=== PATIENT | male | born 1935 | race Caucasian/White ===

== ENCOUNTER 2018-05-27 14:44 | Inpatient (IN) | payer OTHER ==
[2018-05-27] MEDS ORDERED: ONDANSETRON 4 MG/2 ML VIAL IV PRN (15:20)
[2018-05-27 15:23] VITALS: BMI 25.8
[2018-05-27 16:10] LABS: Absolute Lymphocytes (CBC) 0.7 K/uL (0.7-4.9); Absolute Monocytes 0.5 K/uL (0.1-1.3); Absolute Neutrophil 3.3 K/uL (1.8-8.0); Basophils % 0.6 % (0-1.3); Eosinophils % 1.1 % (0-4.4); Hematocrit 38.6 % (39.6-49.0); Lymphocytes % 16.2 % (15.3-44.8); MPV 8.4 fL (7.6-11.3); Monocytes % 11.8 % (3.3-12.3); RBC Red Blood Cell Count 3.86 M/uL (4.33-5.43)
[2018-05-27 16:24] LABS: Potassium 4.3 mmol/L (3.5-5.1)
[2018-05-27] MEDS ORDERED: Pharmacy Consult 1 EA XX PRN (16:25)
[2018-05-27] MEDS ORDERED: VANCOMYCIN 1.5 GM in NA CHLORIDE 0.9% 500 ML IVPB ONE (17:00)
[2018-05-27] MEDS ORDERED: PNEUMOCOCCAL VACCINE 0.5 ML IMVAC ONE (20:00)
[2018-05-27 21:17] LABS: Urine Appearance CLEAR; Urine Bilirubin NEGATIVE (NEG); Urine Blood NEGATIVE (NEG); Urine Color YELLOW; Urine Glucose NEGATIVE (NEG); Urine Protein NEGATIVE (NEG); Urine Urobilinogen 0.2 mg/dL (0.2-1.0)
[2018-05-27 21:32] LABS: Urine Microscopic Reflex NO UMIC
[2018-05-28] MEDS: CLOPIDOGREL 75 MG TABLET PO SCH (09:02)
[2018-05-28] MEDS: METOPROLOL TAR 50 MG TAB PO SCH (09:02)
[2018-05-28] MEDS: MUPIROCIN 2% OINT 22GM TUBE TOP SCH (09:03)
[2018-05-28] MEDS: TRAMADOL HCL 50 MG TAB PO PRN ×3 (09:09→17:28)
--- NOTE | 2018-05-28 15:41 | RAD REPORT ---
EXAM DESCRIPTION: RAD - Foot Right 3 View - 05/28/2018 3:29 pm CLINICAL HISTORY: cellulitis of leg Pain and swelling COMPARISON: No comparisons FINDINGS: Soft tissue swelling is seen about the foot. Degenerative changes are noted involving the first and second MTP joints. Large plantar calcaneal spur noted. No finding to indicate osteomyelitis . If osteomyelitis remains a clinical concern, MR imaging followup would be recommended.
[2018-05-28] MEDS: VANCOMYCIN 1.5 GM in NA CHLORIDE 0.9% 500 ML IVPB SCH (17:28)
[2018-05-28] MEDS: MORPHINE 2 MG/ML SYR IV PRN (21:38)
--- NOTE | 2018-05-28 23:09 | CON ---
Date of Consultation: 05/28/2018 Reason For Service: Right foot cellulitis and abscess. History Of Present Illness: This is the case of an 82-year-old patient, admitted to this hospital in the last 24 hours when he presented to the primary doctor with cellulitis of the right foot region. Today, he was found to have an area of fluctuance in the foot with possible abscess and a surgical c onsult was obtained for possibility of incision and drainage and debridement. He does not remember a ny trauma to that region. He has a history of peripheral vascular disease. In fact last year about the same time, patient was admitted to the hospital with chest pain and history of TN. He does not r emember any trauma; any dysuria, hematuria, hematochezia, or melena. At that moment 1 year ago, melvin ent had a procedure done by Dr. Rangel, which involved a left heart catheterization, angiography, and stenting of the mid left anterior descending artery with 0% residual stenosis. Past Medical History: Cardiac disease, history of TN, peripheral vascular disease. Past Surgical History: Include knee surgery and heart stent placement, elbow surgery. Family History: Includes heart disease and colon cancer. Social History: He does not smoke. He drinks alcohol occasionally. Medications: Include Plavix, aspirin. Review of Systems: Ten points otherwise unremarkable. Physical Examination: General: Patient is awake and alert. HEENT: Pupils are equal and reactive, anicteric. Neck: Supple. Chest: Clear. Abdomen: Soft and depressible. Nontender. Nondistended. Bowel sounds positive. Extremities: Dorsalis pedis pulses bilaterally still present, although diminished. On the right kiet t region, patient has area of cellulitis in midfoot up to distal complete foot. There is an area of fluctuance between the fourth and fifth toe, may have an abscess in that area and area deep inside th e foot, but I believe the origin is between there and also there are some areas between 3rd and 4th. There is a necrotic wound present in that region. Imaging: The right foot MRI does not show at least any obvious evidence of osteomyelitis. Laboratory Data: Blood work shows WBC count of 4.6 and hemoglobin of 12. Potassium is 4.3. Assessment: This 82-year-old patient with abscess of the right foot, needs to be drained. Patient w ill require incision and drainage and debridement with benefits, alternatives, and risks including, b ut not limited to infection, bleeding, damage to adjacent structures, anesthesia complication, nonhea ling wound, TN, and even . He also understands this may not relieve any symptoms. He might nee d more than one surgical intervention. He does not want to feel pain. The area is very tender, so t he options of anesthesia under some sedation or MAC, general anesthetic cannot rule out si nce he has history of TN. I am going trying to see if the project account manager cannot at least evaluate this patient to let us know our limitations. This surgery needs to be done to relieve this infection and patient understands and may require wound care. JAMIE/JAYLEEN Voice ID: [id number] Report ID: [id number]
[2018-05-28] MEDS: NA CHLORIDE 0.9% 1,000 ML IV SCH (23:36)
[2018-05-29] MEDS: MUPIROCIN 2% OINT 22GM TUBE TOP SCH (09:00)
[2018-05-29] MEDS: METOPROLOL TAR 50 MG TAB PO SCH ×2 (09:00→09:58)
[2018-05-29] MEDS ORDERED: PROPOFOL 200 MG/20 ML VIAL IV ONE (10:04)
[2018-05-29] MEDS ORDERED: FENTANYL CITR 100 MCG/2 ML ONE (10:05)
[2018-05-29] MEDS ORDERED: LIDOCAINE 2% MPF 5 ML VIAL ONE (10:06)
[2018-05-29] MEDS ORDERED: ONDANSETRON 4 MG/2 ML VIAL ONE (10:08)
[2018-05-29] MEDS ORDERED: BUPIVACAINE 0.5% PF 10 ML VIAL ONE (10:11)
--- NOTE | 2018-05-29 10:55 | P.BOP ---
Preoperative diagnosis: right foot cellulitis and abscess Postoperative diagnosis: same Primary procedure: I & D with subcutaneous debridement of R foot complex abscess Estimated blood loss: <10cc Specimen: devitalized tissue Findings: complx abscess tracking from plantar to dorsal foot area Anesthesia: General Complications: None Transferred to: Recovery Room Condition: Good
[2018-05-29] MEDS ORDERED: NA CHLORIDE 0.9% 1,000 ML ONE (11:29)
--- NOTE | 2018-05-29 13:46 | CON ---
History Of Present Illness: Mr. Gaytan came to the hospital with his right foot swollen. He has a wound there that seemed to be is between the fourth and fifth digit on the right foot. I am asked to see him before surgery to make sure he is a good cardiac candidate for going through gene ral anesthesia and debridement, perhaps amputation of the toe. Mr. Gaytan definitely has coronary h eart disease in April 2017, so little more than a year ago. He had a stent placed. He had 2 previou s stents, but he had another stent placed in the LAD. Since then, he has been doing well. No chest pain. No EKG changes. Dyspnea with severe exertion. Normal activities of daily life. No symptoms. He does not recall injuring a wound in the foot. His outpatient medications are: Famotidine, clop idogrel, tramadol, clindamycin, metoprolol. He does not report a drug intolerance to statins, but fo r some reason he stopped taking the statin that he had been on before or it simply not recorded, he s hould be on a high dose statin. Physical Examination: General: He is alert, oriented, pleasant, not in distress. Lungs: Clear. Cardiac: Normal. Has normal pulses in both feet. Normal femoral pulses. No evidence of aortic ane urysm. Extremities: The right foot has a large area of swelling, redness, warmth, and tenderness. Looks lik e there is an infection with a crack in the skin between the fourth and fifth digits. Dr. Morrow has recommended debridement. I do not think he has any significant vascular disease. H is heart is stable. He is cleared for going through general anesthesia and surgery to debride wound on his right foot. BENJI/JAYLEEN Voice ID: [id number] Report ID: [id number]
[2018-05-29] MEDS: VANCOMYCIN 1.5 GM in NA CHLORIDE 0.9% 500 ML IVPB SCH (16:29)
[2018-05-29] MEDS: NA CHLORIDE 0.9% 1,000 ML IV SCH (16:31)
[2018-05-29] MEDS: MORPHINE 2 MG/ML SYR IV PRN (22:09)
--- NOTE | 2018-05-29 23:12 | OP ---
Date of Procedure: 05/29/2018 Surgeon: Blair Morrow MD Preoperative Diagnosis: Right foot cellulitis and abscess. Postoperative Diagnoses: Right foot cellulitis and abscess. Procedures: Incision and drainage with subcutaneous debridement of the right foot complex abscess th mac Morrow. Findings: Complex abscess. There is a track coming from plantar to dorsal area of the foot. Two co unter incisions were made. Packing through the foot itself through and through. Anesthesia: General plus local. Indications: This is the case of an 82-year-old patient who comes with cellulitis of the right foot. We noticed an open wound in between the toes 5th and 4th with necrotic tissue present. point for this abscess and cellulitis in the foot goes entire distal part of the foot area of about 10 cm x 6 cm. The patient started on antibiotics, but also debridement needs to be done an d drainage of an abscess. The benefits, alternatives, and risks were fully explained, which include, but are not limited to infection, bleeding, damage to adjacent structures, anesthesia complication, nonhealing wound, DE, and even . He also understood this may not relieve any symptoms. He migh t need more than one surgical intervention. He will require wound care and compliance with the antib iotics. The patient signed a consent. Description Of Procedure: The patient was brought to the operating room and placed in supine positio n. Anesthesia was done without complication. The right foot was prepped and draped in a sterile fas hion. A time-out was called. We noticed the opening between the toes and we put a hemostat in that area. We noticed that extending to the dorsal aspect and plantar aspect of the foot. So, we proceed ed to remove the necrotic tissue. Then, we noticed this track going to the dorsal end of the foot wi th this complex abscess with multiple loculations that were explored, opened. The packing of a Nu Ga uze then placed through and through after the necrotic tissue was removed and sent to the pathologist . The area was irrigated and hemostasis was obtained. The patient tolerated the procedure well. Th e patient was sent to recovery in stable condition. JAMIE/JAYLEEN Voice ID: [id number] Report ID: [id number]
[2018-05-30] MEDS: TRAMADOL HCL 50 MG TAB PO PRN ×3 (04:43→17:35)
[2018-05-30] MEDS: METOPROLOL TAR 50 MG TAB PO SCH (09:26)
[2018-05-30] MEDS: CLOPIDOGREL 75 MG TABLET PO SCH (09:27)
[2018-05-30] MEDS: MORPHINE 2 MG/ML SYR IV PRN (09:27)
[2018-05-30] MEDS: VANCOMYCIN 1.5 GM in NA CHLORIDE 0.9% 500 ML IVPB SCH (12:17)
--- NOTE | 2018-05-30 17:25 | PN ---
Date of Progress Note: 05/28/2018 The patient's cellulitis has continued to progress despite the use of antibiotics; however, he has no t had a significant dose right antibiotic; however, the pain has increased somewhat as wel l with possibility of him requiring a significant debridement under sedation be considered and consul tation will be obtained with the surgeon. /JAYLEEN Voice ID: [id number] Report ID: [id number]
[2018-05-30] MEDS: NA CHLORIDE 0.9% 1,000 ML IV SCH (18:32)
--- NOTE | 2018-05-30 20:10 | PN ---
Date of Progress Note: 05/30/2018 The patient is doing quite well postoperatively. His pain is not that severe. There is some improve ment in the area of cellulitis. We will continue the IV antibiotics awaiting final culture report. Depending on whether it is sensitive to, and determine whether disposition will be made on oral and/o r IV antibiotics. HR/MODL Voice ID: [id number] Report ID: [id number]
--- NOTE | 2018-05-31 03:48 | PN ---
Date of Progress Note: 05/27/2018 Diagnosis: Cellulitis and abscess of the right foot. Subjective: The patient is status post I and D and debridement. The patient is doing well. No comp laint. No fever. Objective: General: The patient is awake and alert. No distress. He is feeling better. Abdomen: Soft and depressible. Extremities: Intact surgical sites. Toes 1 to 5 with good capillary refill. Diagnostic Studies: Culture came back as unable to identify the organism, since there was no growth from that area. Assessment/plan: 1.Continue with dressing changes. 2.Antibiotics. If we see improvement in his redness, then we are going to have to treat it with ant ibiotics, pick one and then follow up [facility] as an outpatient. 3.He might need home health agencies. I am going to check with the floor with the patient to see, i f he has a family member or he wants to do it himself. JAMIE/JAYLEEN Voice ID: [id number] Report ID: [id number]
[2018-05-31] MEDS: TRAMADOL HCL 50 MG TAB PO PRN ×2 (04:35→11:20)
[2018-05-31] MEDS: VANCOMYCIN 1.5 GM in NA CHLORIDE 0.9% 500 ML IVPB SCH ×2 (05:02→23:43)
[2018-05-31] MEDS: MORPHINE 2 MG/ML SYR IV PRN ×2 (09:02→15:29)
[2018-05-31] MEDS: METOPROLOL TAR 50 MG TAB PO SCH (09:03)
[2018-05-31] MEDS: CLOPIDOGREL 75 MG TABLET PO SCH (09:03)
[2018-05-31] MEDS: NA CHLORIDE 0.9% 1,000 ML IV SCH (12:40)
[2018-05-31] MEDS ORDERED: TRAMADOL 37.5mg/APAP 325mg PER TAB PO PRN (14:42)
[2018-05-31] MEDS: DOCUSATE NA 100 MG CAP PO SCH ×2 (15:28→20:22)
[2018-05-31 15:49] LABS: Absolute Lymphocytes (CBC) 0.5 K/uL (0.7-4.9); Absolute Monocytes 0.9 K/uL (0.1-1.3); Absolute Neutrophil 5.5 K/uL (1.8-8.0); Basophils % 0.2 % (0-1.3); Eosinophils % 0.1 % (0-4.4); Hematocrit 38.3 % (39.6-49.0); Lymphocytes % 7.3 % (15.3-44.8); MPV 8.4 fL (7.6-11.3); RBC Red Blood Cell Count 3.86 M/uL (4.33-5.43)
[2018-05-31] MEDS ORDERED: ENOXAPARIN 30 MG/0.3 ML SQ ONE (16:00)
[2018-05-31] MEDS: PIPER/TAZO/NS 3.375gm 3.375 GM/100 ML BAG IVPB SCH (17:42)
[2018-05-31] MEDS: ATORVASTATIN 20 MG TAB PO SCH (20:22)
--- NOTE | 2018-05-31 20:54 | PN ---
Subjective: The patient continued to have evidence of cellulitis, although distally has improved, pr oximally still some involvement, also some edema of the leg. The discussion with Infectious Disease with Zosyn had been added to the regimen. Also, the patient is complaining of increasing stiffness o f his knees, long history of arthritic problems in that area and we will start some physical therapy. He is rather inactive and therefore, Lovenox prophylactically was added to the regimen as well. Chief Complaint: Painful foot. History Of Present Illness: The patient was seen in the [facility] approximately 2 weeks prior to his presentation. He had a small ulcer fifth and fourth digits, which was debrided, caute rized, seen back in the [facility] in a week. The same procedure was followed, perhaps the ulcer w as somewhat smaller, but basically unchanged. As far as the surrounding tissue was concerned, there was no evidence of any problems. However, the next day, he presented to the office with mild celluli tis area around it, started on antibiotics orally. However, this progressed, so that when he was see n in the day of admission, there was marked cellulitis with progression on the foot and obviously, re quired IV antibiotics and therefore, admitted. Past History: The patient has a long history of coronary artery disease, arthritic changes and he simpson s had a Doppler at the time of the workup and he presented to the [facility], which was negative fo r DVTs, I suspect he has some small-vessel disease to certain extent. Social History: Nonsmoker, nondrinker. The patient does have some caffeine. Family History: Noncontributory. Physical Examination: General: The patient is an elderly male. Vital Signs: Stable vital signs. Head and Neck: Normocephalic. Pupils equal and reactive to light and accommodation. Fundi negative . Trachea midline. Thyroid not palpable. ENT negative. Chest: Clear to P and A. Cardiovascular: PMI midclavicular line. Heart sounds normal. Peripheral pulses are present and equ al bilaterally. Abdomen: No organomegaly. Bowel sounds normal. Extremities: Decreased motion of the knees, chronic area of cellulitis in the anterior portion of th e foot, distally to the ulceration in-between the toes and area of erythema and cellulitis in this ar ea as well. Impression: 1.Cellulitis of the foot secondary to ulceration of the intertrigo area. 2.Coronary artery disease by history. 3.Arthritis of the knees. Plan: The patient will be admitted, placed on IV antibiotics, require I and D and debridement, consu ltation with surgeon has been done and should be scheduled. HR/MODL Voice ID: [id number] Report ID: [id number]
--- NOTE | 2018-05-31 21:09 | PN ---
This is a new finding that we have in this patient with cellulitis of the leg area and near the knee. History Of Present Illness: This is a case of an 82-year-old patient, who had the foot cellulitis an d abscess. on antibiotics. We noticed some improvement near the I and D, but progression of his infection of the rest of the extremity and . I was asked to re-evaluate the patien t once again from the surgical standpoint. Review of Systems: Ten points otherwise unremarkable. Physical Examination: Vital signs: He is afebrile. General: The patient is awake and alert. HEENT: Pupils are equal and reactive, anicteric. Neck: Supple. Chest: Clear. Abdomen: Soft and depressible. Extremities: The patient has previous incision over the foot region distally. That area is doing we ll with improvement of the surrounding areas of that I and D, but the proximal foot that is not addre ss by this I and D. He still have some areas of cellulitis present and also distal leg. The knee ar ea starting to feel little bit swelling, although we did not see any fluctuance or crepitus in those areas. Peripheral pulses still present. Laboratory Data: Blood work shows WBC count of 4.6, but that was from several days ago. Culture did not help us since it could not grow the organism. Assessment: An 82-year-old patient with cellulitis of the proximal foot different from the previous I and D and also leg region. This patient may need better coverage for his condition. I discussed t he case today with Dr. Neves, who currently accepted consult on the case from a surgical standpoint and he suggest putting the patient also in a gram-negative coverage. We agreed that is important in this case. Dressing changes will continue as before with the packing. The leg elevation. We are go ing to see the patient over the weekend to see how he improve and we have to do another contour incis ion if he develop abscess in the proximal areas, we will proceed accordingly but not the case today. JAMIE/JAYLEEN Voice ID: [id number] Report ID: [id number]
[2018-06-01] MEDS: PIPER/TAZO/NS 3.375gm 3.375 GM/100 ML BAG IVPB SCH ×3 (03:32→16:38)
[2018-06-01 06:37] LABS: BUN Blood Urea Nitrogen 10 mg/dL (7-18); Bicarbonate 24 mmol/L (21-32); Glucose Level 123 mg/dL (74-106); Potassium 3.6 mmol/L (3.5-5.1); Sodium Level 136 mmol/L (136-145)
[2018-06-01] MEDS: NA CHLORIDE 0.9% 1,000 ML IV SCH (08:00)
[2018-06-01] MEDS: METOPROLOL TAR 50 MG TAB PO SCH (08:36)
[2018-06-01] MEDS: DOCUSATE NA 100 MG CAP PO SCH ×3 (08:36→21:31)
[2018-06-01] MEDS: CLOPIDOGREL 75 MG TABLET PO SCH (08:37)
[2018-06-01] MEDS ORDERED: BISACODYL 10 MG RECTAL SUPP PR ONE (13:36)
--- NOTE | 2018-06-01 17:13 | PN ---
Diagnoses: Right leg cellulitis, right knee cellulitis, right foot cellulitis abscess. Subjective: The patient yesterday found to have cellulitis of the leg and knee. We previously did a n I and D for his foot abscess. He was receiving antibiotics for that when we noticed there was some progression of the cellulitis, although the area of the I and D solved the issue in that area. I co ntacted Dr. Neves who kindly accepted the consult to manage his antibiotics for proper coverage sinc e cultures did not allow us to pinpoint this bacteria causing the issue. Today, he feels better. Th e swelling is starting to come down a little bit, still has some areas of cellulitis present. The valerio rgical areas, previous area in the foot is intact too. Review of Systems: Ten points, otherwise unremarkable. Objective: General: The patient is awake and alert. No fever. Chest: Clear. Abdomen: Soft and depressible. Extremities: No calf tenderness. The patient has some redness over the leg area in the knee region. Full range of motion of the knee still there. The area of the foot has improved after the I and D was done for abscess of that area. Although the leg and knee are not addressed by that surgical inte rvention, at this moment, I feel at least in the area and the leg should still be addressed by the ne w antibiotics, and already showing some improvement. Plan: Continue the antibiotics. Continue pharmacy consult for his vancomycin. We will continue wit h wet-to-dry dressing over the foot region, on leg elevation. JAMIE/JAYLEEN Voice ID: [id number] Report ID: [id number]
--- NOTE | 2018-06-01 17:22 | PN ---
The patient states he feels considerably better today. The pain has decreased. Clinically, the swel ling has gone down somewhat as well. He has been more mobile. Problem now is constipation. This wi ll be addressed with symptomatic treatment. Continue on his present regimen. Changed to saline lock , increase his activity with a projection in next day or so to be discharged. HR/MODL Voice ID: [id number] Report ID: [id number]
[2018-06-01] MEDS: VANCOMYCIN 1.5 GM in NA CHLORIDE 0.9% 500 ML IVPB SCH (18:02)
[2018-06-01 19:54] LABS: Urine Appearance CLEAR; Urine Bilirubin NEGATIVE (NEG); Urine Blood NEGATIVE (NEG); Urine Color YELLOW; Urine Glucose NEGATIVE (NEG); Urine Protein NEGATIVE (NEG)
[2018-06-01 20:02] LABS: Urine Microscopic Reflex NO UMIC
[2018-06-01] MEDS: ATORVASTATIN 20 MG TAB PO SCH (21:31)
[2018-06-01] MEDS: BISACODYL 10 MG RECTAL SUPP PR PRN (21:41)
[2018-06-01] MEDS: MORPHINE 2 MG/ML SYR IV PRN (23:04)
[2018-06-02] MEDS: PIPER/TAZO/NS 3.375gm 3.375 GM/100 ML BAG IVPB SCH ×3 (00:45→17:02)
[2018-06-02] MEDS: TRAMADOL HCL 50 MG TAB PO PRN (00:52)
[2018-06-02] MEDS: METOPROLOL TAR 50 MG TAB PO SCH (09:37)
[2018-06-02] MEDS: DOCUSATE NA 100 MG CAP PO SCH ×3 (09:37→20:29)
[2018-06-02] MEDS: CLOPIDOGREL 75 MG TABLET PO SCH (09:38)
[2018-06-02] MEDS: VANCOMYCIN 1.5 GM in NA CHLORIDE 0.9% 500 ML IVPB SCH (12:07)
[2018-06-02] MEDS: MORPHINE 2 MG/ML SYR IV PRN ×2 (17:03→21:33)
[2018-06-02] MEDS: ATORVASTATIN 20 MG TAB PO SCH (20:29)
--- NOTE | 2018-06-02 21:26 | PN ---
right foot cellulitis with an abscess that was drained, but he also developed a right leg cellulitis and also swelling of the right knee region and this patient has to be reconsulted for the reasons. We have to change the antibiotics. We also get Infectious Disease consulted. The patient is improving after we added Zosyn to the regimen. Right now, the patient feels better and no fever w ith less swelling. Review of Systems: Ten points, otherwise unremarkable. Objective: General: The patient is awake and alert. HEENT: Pupils are equal and reactive, anicteric. Neck: Supple. Chest: Clear. Abdomen: Soft and depressible. Nontender. Extremities: Right knee and right leg with no calf tenderness. Swelling is diminished. Erythema ov er the leg and also the dorsum of the foot is diminished. The surgical area of the foot region also intact. Laboratory Data: Blood work shows once again, WBC count of 6.90 the plan. The patient simpson s consulted with the Infectious Disease to determine the proper route and length of his antibiotics. We are going to continue packing of the area of the foot, leg elevation. JAMIE/JAYLEEN Voice ID: [id number] Report ID: [id number]
[2018-06-03] MEDS: PIPER/TAZO/NS 3.375gm 3.375 GM/100 ML BAG IVPB SCH ×3 (00:28→16:36)
[2018-06-03] MEDS: MORPHINE 2 MG/ML SYR IV PRN ×3 (03:54→21:58)
[2018-06-03] MEDS: VANCOMYCIN 1.5 GM in NA CHLORIDE 0.9% 500 ML IVPB SCH (05:13)
[2018-06-03] MEDS: METOPROLOL TAR 50 MG TAB PO SCH (08:19)
[2018-06-03] MEDS: DOCUSATE NA 100 MG CAP PO SCH ×3 (08:19→20:26)
[2018-06-03] MEDS: CLOPIDOGREL 75 MG TABLET PO SCH (08:19)
--- NOTE | 2018-06-03 09:24 | PN ---
The patient seems to be doing quite well, as far as the foot pain is concerned, an evaluation of the wound shows significant ecchymosis with good control of the cellulitis. However, his main complaint and why he has been taking the analgesics is his lower back. The patient has a long history of required at this time. If in fact, he continues to improve as far as the cellulitis is concern ed, possibly can be discharged tomorrow on oral medication and then receive a cortisone shot in the l umbosacral area. HR/MODL Voice ID: [id number] Report ID: [id number]
[2018-06-03] MEDS ORDERED: cloNIDine HCl 0.1 MG TAB PO PRN (18:53)
[2018-06-03] MEDS: ATORVASTATIN 20 MG TAB PO SCH (20:26)
--- NOTE | 2018-06-03 20:27 | PN ---
Date of Progress Note: 06/03/2018 Diagnosis: This is a followup for his right leg and knee cellulitis. The previous problem he had ri ght foot cellulitis and abscess is improving too. The previous I and D also looks intact. His leg a nd knee also improving now. Denies any fever. Review of Systems: Ten points, otherwise unremarkable. Objective: General: The patient is awake and alert. No distress. Abdomen: Soft and depressible. Extremities: Swelling of the leg is diminished. Erythema also diminished, same thing with the knee. The right foot incision looks intact. Right foot cellulitis also is diminished. Laboratory Data: Microbiology could not grow any bacteria, though it is obvious it was infected. Plan: We are waiting for the infectious disease doctor who will let us know not only which kind of a ntibiotics, but also which length of antibiotic is needed to improve his condition. From the surgica l standpoint, we are going to continue with the Nu Gauze packing over the area and gauze on top. Whe n he gets discharged, we would like to see him at [facility]. JAMIE/JAYLEEN Voice ID: [id number] Report ID: [id number]
[2018-06-04] MEDS: PIPER/TAZO/NS 3.375gm 3.375 GM/100 ML BAG IVPB SCH ×3 (00:05→17:26)
[2018-06-04] MEDS: VANCOMYCIN 1.5 GM in NA CHLORIDE 0.9% 500 ML IVPB SCH ×2 (00:59→18:18)
[2018-06-04] MEDS: CLOPIDOGREL 75 MG TABLET PO SCH (09:13)
[2018-06-04] MEDS: DOCUSATE NA 100 MG CAP PO SCH ×3 (09:13→20:55)
[2018-06-04] MEDS: METOPROLOL TAR 50 MG TAB PO SCH (09:13)
[2018-06-04] MEDS: MORPHINE 2 MG/ML SYR IV PRN ×3 (09:48→20:54)
--- NOTE | 2018-06-04 11:04 | EKG ---
Test Date: 2018-05-27 Test Time: 17:35:00 Continuous Improvement Analyst: AMENA MEASUREMENT RESULTS: Intervals: Rate: 67 WA: 200 QRSD: 86 QT: 408 QTc: 431 [place]: P: 55 WA: 200 QRS: 90 T: 230 INTERPRETIVE STATEMENTS: Normal sinus rhythm Rightward axis ST & T wave abnormality, consider inferolateral ischemia Abnormal ECG Compared to ECG 05/08/2017 09:26:20 Right-axis deviation now present Possible ischemia now present ST (T wave) deviation still present Electronically Signed On 05-28-18 05:34:31 CDT by Mitesh Rangel
--- NOTE | 2018-06-04 15:10 | PN ---
Date of Progress Note: 06/03/2018 The patient states he is feeling significant back pain that is limiting his motion. He also had some knee joint pain. These were present prior to the hospitalization with a cellulitis, except for the back pain, which he said was minor compared to the significant pain that is there now. As far as his cellulitis is concerned, the right leg is improved. The left leg is considerably better. We will t ry and put him back into an activity mode by seeing if he can be accepted on the rehab floor. If so, he can be transferred in the morning. HR/MODL Voice ID: [id number] Report ID: [id number]
--- NOTE | 2018-06-04 17:13 | PN ---
Date of Progress Note: 06/04/2018 Diagnosis: Cellulitis of the leg, knee, foot with abscess of the right foot area. Subjective: The patient is doing better. Swelling is still there, but erythema is almost gone. No calf tenderness. No fever. Review of Systems: Ten points, otherwise unremarkable. Objective: General: The patient is awake and alert. No distress. HEENT: Pupils are equal and reactive. Abdomen: Soft and depressible. Extremities: The knee, leg and foot redness almost gone. Swelling is still present. No calf tender ness. No Homans signs. Area of the surgical area is intact. Plan: The patient will be continue dressing changes. Antibiotics per ID and per primary doctor. Of f-loading if possible. JAMIE/JAYLEEN Voice ID: [id number] Report ID: [id number]
--- NOTE | 2018-06-04 20:40 | RAD REPORT ---
EXAM DESCRIPTION: MRI - Foot Right Wo Cont - 06/04/2018 8:18 pm CLINICAL HISTORY: Plantar soft tissue wound COMPARISON: Right foot May 28 TECHNIQUE: Multiplanar imaging of the right foot was performed from the tarsal bones through the pha langes. T1 weighted, T1 fat sat, T2 fat saturation, and T2 stir sequences were obtained. FINDINGS: No occult fracture seen. No bone bruise suspected. There is hyperintense T2 signal in the second metatarsal head and base of the second proximal phalanx. Small subcortical degenerative cysts are present in the metatarsal head and there are joint space narrowing changes along with marginal sp urring. Signal abnormalities favor active degenerative change rather than osteomyelitis. No bone dest ruction is seen. Degenerative cystic changes are seen in the medial margin first metatarsal head. First MTP joint spac e narrowing is present degenerative changes at the base of the first proximal phalanx. No abscess or drainable fluid collections seen in the soft tissues. Infectious/ inflammatory type mode ma is seen throughout much of the plantar surface of the foot. Findings are more pronounced along the medial and inferior aspect of the first metatarsal head and fifth metatarsal head. Scattered degener ative changes are seen throughout most of the MTP joints and IP joints. IMPRESSION: No convincing evidence for osteomyelitis at this time. Abnormal signal in the second metatarsal head and second toe proximal phalanx believed to be degenera tive in etiology rather than osteomyelitis. Infectious/ inflammatory signal in the plantar soft tissues without abscess or drainable fluid collec tion.
[2018-06-04] MEDS: ATORVASTATIN 20 MG TAB PO SCH (20:55)
--- NOTE | 2018-06-04 21:36 | CON ---
History Of Present Illness: This is an 82-year-old male. I was consulted for right foot cellulitis and possible osteomyelitis. The patient noticed that he has a wound on his foot about a month ago and he was having some discomfort as per his . The patient was doing self-treatment at home. Then, he saw his primary care doctor who put him on oral antibiotic. After that the patient was eventually admitted to hospital for IV antibiotics and surgical debridement was done by surgical team. Past Medical History: Includes coronary artery disease, 3 times stent placement ; hypercholesterolemia; high blood pressure; and leg edema. Social History: Nonsmoker and nondrinker. Family History: Noncontributory. Medications: Vancomycin and Zosyn. See MARS for other medication. Allergies: NO KNOWN DRUG ALLERGIES. Review of Systems: A 10-point review was performed. Physical Examination: General: This is an 82-year-old male lying in bed, not in any acute cardiopulmonary distress. Vital Signs: Temperature 97.2, pulse 80, respiratory rate 18, blood pressure 133/60. HEENT: Unremarkable. Neck: Supple. Lungs: Clear to auscultation. Heart: S1, S2. Regular. Abdomen: Soft, nontender. Bowel sounds present. Extremities: 3+ edema wounds noted. Laboratory Data: Shows WBC 6.9, hemoglobin 12.9, platelets are 150. Chemistry shows sodium 136, potassium 3.6, chloride 104, bicarb 24, BUN 10, creatinine 0.7 , glucose 123. Wound cultures, no growth. Assessment And Plan: Right foot cellulitis with 3+ edema to the legs. X-ray showing degenerative changes involving the second MTP joint, no osteomyelitis noted. We will recommend the patient to get MRI of the right foot to evaluate for osteomyelitis. Also start the patient on Medihoney gel to be applied into the wound and apply foam daily. Keep leg elevated. Continue IV antibiotic. Total course of possible 4-6 weeks depending on MRI results. NF/MODL Voice ID: [id number] Report ID: [id number] ROCKY
[2018-06-05] MEDS: PIPER/TAZO/NS 3.375gm 3.375 GM/100 ML BAG IVPB SCH ×3 (00:22→17:00)
[2018-06-05] MEDS: MORPHINE 2 MG/ML SYR IV PRN ×3 (06:40→17:32)
[2018-06-05] MEDS: MEDIHONEY 44 ML TOPICAL TUBE TOP SCH (08:46)
[2018-06-05] MEDS: METOPROLOL TAR 50 MG TAB PO SCH (08:47)
[2018-06-05] MEDS: CLOPIDOGREL 75 MG TABLET PO SCH (08:48)
[2018-06-05] MEDS: DOCUSATE NA 100 MG CAP PO SCH ×3 (08:48→20:40)
[2018-06-05] MEDS: VANCOMYCIN 1.5 GM in NA CHLORIDE 0.9% 500 ML IVPB SCH (12:35)
--- NOTE | 2018-06-05 16:59 | PN ---
Subjective: The patient lying in bed, not in any acute distress. Feeling slightly better today. Denies any other problems. Objective: Vital Signs: Temperature 98, pulse 74, respirations 18, blood pressure 147/65. Lungs: Clear to auscultation. Heart: S1 and S2, regular. Abdomen: Soft and nontender. Bowel sounds present. Extremities: 1+ edema. Laboratory Data: Shows WBC 6.9, hemoglobin 12.8, platelets are 150. Chemistry shows sodium 136, potassium 3.6, chloride 104, bicarb 24, BUN 10, creatinine 0.7 , glucose 120. MRI report from yesterday shows patient has no evidence of osteomyelitis or abscess formation, possible degenerative changes. Assessment: Foot wound status post surgical debriedment, doing better Assessment And Plan: Right foot surgical wounds status post debridement, doing better. Recommend at least 3 weeks of IV antibiotics. Can be switched to oral for last 1 more week. We will follow the patient closely. JAYNE/JAYLEEN Voice ID: [id number] Report ID: [id number] MTDJonathan
[2018-06-05] MEDS ORDERED: DIPHENHYDRAMINE 25 MG TAB/CAP PO PRN (17:49)
[2018-06-05] MEDS ORDERED: DEXAMETHASONE 10 MG/ML VIAL IV ONE (17:53)
[2018-06-05] MEDS: ATORVASTATIN 20 MG TAB PO SCH (20:40)
[2018-06-05] MEDS: BISACODYL 10 MG RECTAL SUPP PR PRN (20:40)
--- NOTE | 2018-06-05 21:14 | PN ---
Date of Progress Note: 06/04/2018 The patient states his legs feel about the same. However, his back and other joints are still giving him a lot of pain. He was seen by Infectious Disease. Dr. Neves felt he may need parenteral antib iotics longer than his hospital stay and suggested an MRI and make a decision after this was done. T his will therefore be done. He added Zosyn to the regimen. HR/MODL Voice ID: [id number] Report ID: [id number]
--- NOTE | 2018-06-05 21:26 | PN ---
Addendum: Correction on those last 3 dictations. The dates should have been for the progress note 0 06/05, not 06/04. HR/MODL Voice ID: [id number] Report ID: [id number]
--- NOTE | 2018-06-06 06:21 | PN ---
Date of Progress Note: 06/05/2018 Diagnoses: Right leg cellulitis, right foot cellulitis, abscess of the right foot. Subjective: The patient is doing better. No complaints. Swelling is down. Tenderness down. No fe susanna. Review of Systems: Ten points, otherwise unremarkable. Objective: General: The patient is awake and alert. No distress. Chest: Clear. Abdomen: Soft and depressible. Extremities: Less swelling of the knee and the leg area. No redness on those areas at this moment. No Homans signs. The area of the foot also down with the surgical area intact with the p acking. The rest of the toes looks noncyanotic. They saw the oracle identity management consultant doctor in Infectious Diseas e and the plan is for patient's MRI. X-rays initially showed no osteomyelitis. I ordered to review that too again. Also, I see the plan for moth exterminator antibiotics. Plan: From surgical standpoint, continue the dressing changes and leg elevation. Antibiotics per In fectious Disease. If the patient gets discharged home, we would like to see the patient in the [facility]. JAMIE/JAYLEEN Voice ID: [id number] Report ID: [id number]
[2018-06-06] MEDS: VANCOMYCIN 1.5 GM in NA CHLORIDE 0.9% 500 ML IVPB SCH ×2 (06:29→23:20)
[2018-06-06] MEDS: DOCUSATE NA 100 MG CAP PO SCH ×3 (09:39→21:17)
[2018-06-06] MEDS: METOPROLOL TAR 50 MG TAB PO SCH (09:39)
[2018-06-06] MEDS: CLOPIDOGREL 75 MG TABLET PO SCH (09:39)
[2018-06-06] MEDS: MEDIHONEY 44 ML TOPICAL TUBE TOP SCH (09:40)
[2018-06-06] MEDS: MORPHINE 2 MG/ML SYR IV PRN (12:18)
[2018-06-06] MEDS: TRAMADOL HCL 50 MG TAB PO PRN (18:44)
[2018-06-06] MEDS: ATORVASTATIN 20 MG TAB PO SCH (21:17)
--- NOTE | 2018-06-06 22:33 | PN ---
Date of Progress Note: 06/06/2018 Subjective: The patient states he feels considerably better, his mobilization is improved significan tly. Back in the year bothering more in his foot. The foot reveals some opening where the incisions were made. However, the erythema is markedly improved. I feel that he is after tonight's vancomyci n dose capable of controlling the infection on daily dressing changes and oral antibiotics. He will be discharged in the a.m.; at which time, he will be seen over at the office for followup and in the wound center as well. HR/MODL Voice ID: [id number] Report ID: [id number]
[2018-06-07 02:19] VITALS: O2SAT 99
[2018-06-07] MEDS: TRAMADOL HCL 50 MG TAB PO PRN (06:47)
[2018-06-07 08:18] VITALS: BP 176/71
[2018-06-07] MEDS: DOCUSATE NA 100 MG CAP PO SCH (08:18)
[2018-06-07] MEDS: CLOPIDOGREL 75 MG TABLET PO SCH (08:18)
[2018-06-07] MEDS: METOPROLOL TAR 50 MG TAB PO SCH (08:18)
[2018-06-07] MEDS: MEDIHONEY 44 ML TOPICAL TUBE TOP SCH (08:20)
[2018-06-07 10:19] VITALS: TEMP 98.2
--- NOTE | 2018-06-07 11:11 | RAD REPORT ---
EXAM DESCRIPTION: RAD - Lumbar Spine 3 Views - 06/07/2018 10:55 am CLINICAL HISTORY: Back pain FINDINGS: Mild posterior subluxation of L3 on L4 is unchanged from July 2017. 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 Spinal stenosis is suspected. The bones are osteoporotic. No fracture is seen
--- NOTE | 2018-06-07 16:01 | PN ---
Subjective: The patient sitting in easy chair, not in any acute cardiopulmonary distress. Denies an y fevers. Had a reaction with Zosyn, rash and itching on the back. Objective: Vital Signs: Temperature 98, pulse 72, respiration 18, blood pressure 176/71. Lungs: Basal crackles. Heart: S1, S2. Regular. Abdomen: Soft, nontender. Bowel sounds present. Extremities: 2+ edema to the right leg. Erythematous wound noted. Laboratory Data: Shows WBC 6.9, hemoglobin 12.8, platelets are 150. Chemistry shows sodium 136, pot assium 3.6, chloride 104, bicarb 24, BUN 10, creatinine 0.7, glucose is 123. Currently being treated with vancomycin. Assessment And Plan: Right foot wound status post debridement. Recommend sending the patient home o n Levaquin and clindamycin for broad spectrum coverage. Apply Medihoney to the wound site Sunday, , Sunday. Keep leg elevated. Continue supportive care and wound care. Follow up with the pr [facility] care. JAYNE/JAYLEEN Voice ID: [id number] Report ID: [id number]
--- NOTE | 2018-07-04 13:17 | HP ---
Date of Admission: 06/03/2018 Chief Complaint: Painful foot. History Of Present Illness: The patient first noticed the problem with the intertrigo area of the fo urth and third digit on the right foot approximately 1 month prior to this admission. He was treated on outpatient basis with antibiotics. He had a small lesion there, which look like early ulcer form ation; however, the outpatient treatment progressed to the point where he was seen in the Wound [facility], the area was debrided on a couple of occasions with various medications were topically applied as well as all antibiotics. When seen the day of admission; however, he has sudden onset of redness and discomfort on the anterior portion of foot proximal to the lesion and diagnosis of cellulitis was carly marroquin. He was admitted for more intensive treatment and the possibility of osteomyelitis was also consi dered. Past History: Considering his age, the patient has done relatively well. He has had stents x3, whic h he has tolerated quite well and history of high blood pressure, which is controlled with medication and intermittent leg edema also controlled for the most part with medication. Social History: Nonsmoker, nondrinker. Family History: Noncontributory. Physical Examination: General: The patient is a well-built male in no acute distress. Vital Signs: Stable vital signs. Head and Neck: Normocephalic. Pupils equal to light and accommodation. Fundi negative. Trachea mi dline. Thyroid not palpable. ENT negative. Chest: Clear to P and A. Cardiovascular: PMI in midclavicular line. Heart sounds normal. Peripheral pulses present and equa l bilaterally. Abdomen: No organomegaly. Bowel sounds present. Extremities: All extremities normal except for the right lower leg, which shows an area of celluliti s on the anterior portion of the foot laterally extending to a lesion in between the toes on the four th and fifth areas. This area also show some cellulitis as well as distal to the lesion. Rectal: Deferred. Impression: Acute cellulitis of the foot, ulceration of the intertrigo area of the fourth and fifth digits, hypertension controlled, coronary artery disease by history. Plan: The patient will be admitted, placed on IV antibiotics. MRIs will be obtained to rule out ost eo. Consultation obtained with both surgeon for probable debridement under anesthetic and Infectious Disease. HR/MODL Voice ID: [id number]
== END 2018-06-07 11:20 | disposition home health service (06) | DRG 580 ==
LOC: 2ND 14:51 → OBSVTOIN 06-03 10:47
PROVIDERS: ADMIT Family Medicine; ATTEND Family Medicine
PROC: 0JDQ0ZZ Extraction of Right Foot Subcutaneous Tissue and Fascia, Open Approach (ICD-10-PCS; principal; 2018-05-29 10:30)
DX: L03.115 Cellulitis of right lower limb (principal); L02.611 Cutaneous abscess of right foot; I25.2 Old myocardial infarction; I73.9 Peripheral vascular disease, unspecified; I25.10 Atherosclerotic heart disease of native coronary artery without angina pectoris; Z95.5 Presence of coronary angioplasty implant and graft; M17.0 Bilateral primary osteoarthritis of knee; E78.00 Pure hypercholesterolemia, unspecified; I10 Essential (primary) hypertension; K59.00 Constipation, unspecified
CPT/HCPCS: 36415; 72100; 80048; 80202; 81003; 82565; 82962; 85025; 87070; 87205; 88304; 93005; 97110; 97116; 97163; 97530; G0378; G0379; J1100; J1650; J2270; J2405; J2543; J2704; J3010; J7030

== ENCOUNTER 2018-10-29 10:22 | Emergency (ER) | payer OTHER ==
[2018-10-29] MEDS ORDERED: FENTANYL CITR 100 MCG/2 ML ONE (10:51)
[2018-10-29 11:27] LABS: Absolute Lymphocytes (CBC) 0.6 K/uL (0.7-4.9); Hematocrit 33.4 % (39.6-49.0); Lymphocytes % 16.8 % (15.3-44.8); MPV 8.1 fL (7.6-11.3); RBC Red Blood Cell Count 3.42 M/uL (4.33-5.43)
--- NOTE | 2018-10-29 11:41 | RAD REPORT ---
EXAM DESCRIPTION: RAD - Hip Right 2 View - 10/29/2018 11:17 am CLINICAL HISTORY: Right hip pain status post fall FINDINGS: Intertrochanteric fracture involves the right femur extending into the lesser and greater trochanters. The lesser trochanter is avulsed. Fracture extends inferiorly into the proximal femoral diaphysis. Intertrochanteric fracture fragments are by 9 millimeters No dislocation
[2018-10-29 11:43] LABS: Albumin 2.7 g/dL (3.4-5.0); Bilirubin Total 0.3 mg/dL (0.2-1.0); Potassium 4.1 mmol/L (3.5-5.1); Protein, Total 6.2 g/dL (6.4-8.2)
--- NOTE | 2018-10-29 13:40 | ER ---
Nurse's Notes [facility] Name: Isiah Gaytan Age: 83 yrs Sex: Male : 1935 Arrival Date: 10/29/2018 Time: 10:25 Bed 14 Private MD: Diagnosis: Right closed displaced comminuted subtrochanteric fracture Presentation: 10/29 10:23 Presenting complaint: EMS states: Pt. is A \T\ O x 4, was bending over to pick something rb1 up and lost his balance and fell in the floor on a rug. Denies hitting head or LOC. C/o pain in the right hip 12/05 at home. Vital signs are stable. 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 Has a DEIDRA drain in place on his right side where they removed the muscle. Allergy to Codeine, Keflex, and Azithromycin. Transition of care: patient was not received from another setting of care. Onset of symptoms was October 29, 2018. Risk Assessment: Do you want to hurt yourself or someone else? Patient reports no desire to harm self or others. Initial Sepsis Screen: Does the patient meet any 2 criteria? No. Patient's initial sepsis screen is negative. Does the patient have a suspected source of infection? No. Patient's initial sepsis screen is negative. Care prior to arrival: None. 10:23 Method Of Arrival: EMS: [facility] rb1 10:23 Acuity: MARIOLA 3 rb1 Triage Assessment: 10:23 General: Appears uncomfortable, Behavior is calm, cooperative. Pain: Complains of pain rb1 in right hip Pain currently is 8 out of 10 on a pain scale. Neuro: Level of Consciousness is awake, alert, obeys commands, Oriented to person, place, time, situation. Cardiovascular: Capillary refill < 3 seconds is brisk fingers. Respiratory: Airway is patent Respiratory effort is even, unlabored, Respiratory pattern is regular, symmetrical. GI: No signs and/or symptoms were reported involving the gastrointestinal system. : No signs and/or symptoms were reported regarding the genitourinary system. Derm: Skin is pink, warm \T\ dry. Bruising that is dark purple, on abdomen. Musculoskeletal: Range of motion: limited in right leg. Historical: - Allergies: 10:23 Codeine; rb1 10:23 Keflex; rb1 10:23 Azithromycin; rb1 - Immunization history:: Adult Immunizations up to date. - Social history:: Smoking status: Patient/guardian denies using tobacco. - Ebola Screening: : Patient negative for fever greater than or equal to 101.5 degrees Fahrenheit, and additional compatible Ebola Virus Disease symptoms. Screenin:23 Abuse screen: Denies threats or abuse. Nutritional screening: No deficits noted. rb1 Tuberculosis screening: No symptoms or risk factors identified. Fall Risk Fall in past 12 months (25 points). No secondary diagnosis (0 pts). No IV (0 pts). Ambulatory Aid- None/Bed Rest/Nurse Assist (0 pts). Gait- Normal/Bed Rest/Wheelchair (0 pts) Mental Status- Oriented to own ability (0 pts). Total Griffin Fall Scale indicates Low Risk Score (25-44 pts). Fall prevention measures have been instituted. Side Rails Up X 2 Placed close to Nursing Station 1:1 attendant Assigned to Pt. Frequent Obs/Assesments occuring Family Present and informed to notify staff if they need to leave bedside As available Patient and Family Educated on Fall Prevention Program and strategies. Assessment: 11:52 Reassessment: Pt. requested pain medication; provider notified. Received verbal order rb1 for Fentanyl 50 mcg IVP x 1. 100% verbal read back. 11:55 Reassessment: Dr. Bowie and Dr. Arevalo are at pt. bedside. rb1 12:10 Reassessment: Patient appears in no apparent distress at this time. Patient and/or rb1 family updated on plan of care and expected duration. Pain level reassessed. Patient is alert, oriented x 3, equal unlabored respirations, skin warm/dry/pink. Pain 4/10. 13:10 Reassessment: Patient appears in no apparent distress at this time. No changes from rb1 previously documented assessment. 14:00 Reassessment: Patient appears in no apparent distress at this time. Patient and/or rb1 family updated on plan of care and expected duration. Pain level reassessed. Patient is alert, oriented x 3, equal unlabored respirations, skin warm/dry/pink. 14:04 Reassessment: Tried to call report to [facility]. I was asked to call back and ask for rb1 the Triage nurse so they could take report. 14:10 Reassessment: Called report to KATELYNN Juarez at [facility]. Information from the [facility] rb1 was given. All questions asked and answered. 15:00 Reassessment: Patient appears in no apparent distress at this time. Patient and/or rb1 family updated on plan of care and expected duration. Pain level reassessed. Patient is alert, oriented x 3, equal unlabored respirations, skin warm/dry/pink. Vital Signs: 10:23 BP 144 / 73; Pulse 59; Resp 17; Temp 98.0(O); Pulse Ox 95% on R/A; Weight 79.38 kg (R); rb1 Height 5 ft. 7 in. (170.18 cm) (R); Pain 8/10; 11:20 BP 140 / 73; Pulse 60; Resp 18; Temp 98.1(O); Pulse Ox 96% on R/A; rb1 12:20 BP 153 / 68; Pulse 62; Resp 17; Temp 98.0(O); Pulse Ox 96% on R/A; Pain 4/10; rb1 13:20 BP 167 / 78; Pulse 70; Resp 16; Temp 98.1(O); Pulse Ox 96% on R/A; Pain 10/10; rb1 14:19 BP 164 / 77; Pulse 74; Resp 17; Temp 98.0(O); Pulse Ox 96% on R/A; Pain 4/10; rb1 10:23 Body Mass Index 27.41 (79.38 kg, 170.18 cm) rb1 ED Course: 10:23 Patient has correct armband on for positive identification. Bed in low position. Call rb1 light in reach. Side rails up X2. Pulse ox on. NIBP on. Warm blanket given. Pillow given. 10:23 Arm band placed on right wrist. rb1 10:25 Patient arrived in ED. em1 10:26 Phu Arevalo MD is Attending Physician. ps1 10:47 Denise Robles, KATELYNN is Primary Nurse. rb1 11:00 Inserted saline lock: 22 gauge in right antecubital area, using aseptic technique. rb1 Blood collected. 11:43 Hip Right 2 View XRAY In Process Unspecified. EDMS 11:48 Triage completed. rb1 13:20 Boykin cath inserted, using sterile technique, 16 Fr., by ms, balloon inflated, to jb1 gravity drainage. 15:04 No provider procedures requiring assistance completed. Patient transferred, IV remains rb1 in place. Administered Medications: 11:00 Drug: fentaNYL (PF) 50 mcg Route: IVP; Site: right antecubital; rb1 11:15 Follow up: Response: No adverse reaction; Temperature is decreased rb1 11:55 Drug: fentaNYL (PF) 50 mcg Route: IVP; Site: right antecubital; rb1 12:10 Follow up: Response: No adverse reaction; Pain is decreased rb1 13:50 Drug: morphine 4 mg Route: IVP; Site: right antecubital; mg2 14:05 Follow up: Response: No adverse reaction; Pain is decreased rb1 15:03 Drug: morphine 4 mg Route: IVP; Site: right antecubital; rb1 15:04 Follow up: Response: Medication administered at discharge. rb1 Outcome: 13:39 ER care complete, transfer ordered by . ps1 15:04 Transferred by ground EMS to [facility], Transfer form completed. rb1 15:04 Condition: stable 15:04 Instructed on the need for transfer. 15:05 Patient left the ED. rb1 Signatures: Dispatcher [employer] EDMS Etienne Sanchez jb1 Mich Morrow em1 Denise Robles, RN RN rb1 Phu Arevalo MD MD ps1 Louis Galvan RN RN mg2
--- NOTE | 2018-10-29 13:41 | EDPHYS ---
Physician Documentation [facility] Name: Isiah Gaytan Age: 83 yrs Sex: Male : 1935 Arrival Date: 10/29/2018 Time: 10:25 Bed 14 Private MD: ED Physician Phu Arevalo HPI: 10/29 10:44 This 83 yrs old Male presents to ER via Unassigned with complaints of right ps1 hip pain, fall. 10:44 Patient states that he was bending over and lost balance. He did not lose ps1 consciousness. He has right hip pain that hurts worse with movement. 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 He is not bleeding and surgical sites appear intact. Pain rated as moderate. No obvious leg length discrepancy. . Historical: - Allergies: 10:23 Codeine; rb1 10:23 Keflex; rb1 10:23 Azithromycin; rb1 - Immunization history:: Adult Immunizations up to date. - Social history:: Smoking status: Patient/guardian denies using tobacco. - Ebola Screening: : Patient negative for fever greater than or equal to 101.5 degrees Fahrenheit, and additional compatible Ebola Virus Disease symptoms. ROS: 10:44 Constitutional: Negative for fever, chills, and weight loss, Eyes: Negative for injury, ps1 pain, redness, and discharge, Cardiovascular: Negative for chest pain, palpitations, and edema, Respiratory: Negative for shortness of breath, cough, wheezing, and pleuritic chest pain, Abdomen/GI: Negative for abdominal pain, nausea, vomiting, diarrhea, and constipation, Back: Negative for injury and pain. 10:44 MS/extremity: Positive for pain, of the right hip. 10:44 Skin: Positive for graft right lateral leg. Exam: 10:44 Constitutional: This is a well developed, well nourished patient who is awake, alert, ps1 and in no acute distress. Head/Face: Normocephalic, atraumatic. Eyes: Pupils equal round and reactive to light, extra-ocular motions intact. Lids and lashes normal. Conjunctiva and sclera are non-icteric and not injected. Chest/axilla: Normal chest wall appearance and motion. Nontender with no deformity. No lesions are appreciated. Cardiovascular: Regular rate and rhythm. No gallops, murmurs, or rubs. Normal PMI, no JVD. No pulse deficits. Respiratory: Lungs have equal breath sounds bilaterally, clear to auscultation and percussion. No rales, rhonchi or wheezes noted. No increased work of breathing, no retractions or nasal flaring. 10:44 Abdomen/GI: Inspection: scar(s), are noted in the anterior aspect of right lateral abdomen and right upper quadrant, drain in place, Bowel sounds: normal, Palpation: abdomen is soft and non-tender. 10:44 Musculoskeletal/extremity: Extremities: grossly normal except: noted in the right leg and right hip: tenderness, patient has 2 large skin grafts to leg which are dressed and appear clean and intact. No obvious leg length discrepancy. Pulses intact distally. . 10:44 Skin: large surgical scar on right parietal area covered with iodoform dressing. Appears to be healing well.. Vital Signs: 10:23 BP 144 / 73; Pulse 59; Resp 17; Temp 98.0(O); Pulse Ox 95% on R/A; Weight 79.38 kg (R); rb1 Height 5 ft. 7 in. (170.18 cm) (R); Pain 8/10; 11:20 BP 140 / 73; Pulse 60; Resp 18; Temp 98.1(O); Pulse Ox 96% on R/A; rb1 12:20 BP 153 / 68; Pulse 62; Resp 17; Temp 98.0(O); Pulse Ox 96% on R/A; Pain 4/10; rb1 13:20 BP 167 / 78; Pulse 70; Resp 16; Temp 98.1(O); Pulse Ox 96% on R/A; Pain 10/10; rb1 14:19 BP 164 / 77; Pulse 74; Resp 17; Temp 98.0(O); Pulse Ox 96% on R/A; Pain 4/10; rb1 10:23 Body Mass Index 27.41 (79.38 kg, 170.18 cm) rb1 MDM: 11:06 Patient medically screened. ps1 12:12 Data reviewed: vital signs, nurses notes, lab test result(s), radiologic studies, and ps1 as a result, I will consult Ortho. ED course: Dr. Bowie evaluated patient in ED and not able to perform surgery 2/2 recent graft and no access point. States patient needs to be transferred for higher level of care as he will likely need external fixation and he does not have trust in his ability to place pins appropriately. 10/29 10:36 Order name: CBC with Diff; Complete Time: 11:38 ps1 10/29 10:36 Order name: CMP; Complete Time: 12:03 ps1 10/29 10:36 Order name: Hip Right 2 View XRAY; Complete Time: 14:59 ps1 10/29 10:36 Order name: EKG - Nurse/Tech; Complete Time: 10:40 ps1 Administered Medications: 11:00 Drug: fentaNYL (PF) 50 mcg Route: IVP; Site: right antecubital; rb1 11:15 Follow up: Response: No adverse reaction; Temperature is decreased rb1 11:55 Drug: fentaNYL (PF) 50 mcg Route: IVP; Site: right antecubital; rb1 12:10 Follow up: Response: No adverse reaction; Pain is decreased rb1 13:50 Drug: morphine 4 mg Route: IVP; Site: right antecubital; mg2 14:05 Follow up: Response: No adverse reaction; Pain is decreased rb1 15:03 Drug: morphine 4 mg Route: IVP; Site: right antecubital; rb1 15:04 Follow up: Response: Medication administered at discharge. rb1 Disposition: 10/29/18 13:39 Transfer ordered to Other Acute Care Facility. Diagnosis is Right closed displaced comminuted subtrochanteric fracture . - Reason for transfer: Higher level of care. - Accepting physician is Simmons. - Condition is Stable. - Problem is new. - Symptoms are unchanged. Signatures: Dispatcher [employer] [facility] Denise Robles RN RN rb1 Phu Arevalo MD MD ps1 Louis Galvan RN RN mg2 Corrections: (The following items were deleted from the chart) 15:05 13:39 10/29/2018 13:39 Transfer ordered to Other Acute Care Facility. Diagnosis is rb1 Right closed displaced comminuted subtrochanteric fracture . Reason for transfer: Higher level of care. Accepting physician is Simmons. Condition is Stable. Problem is new. Symptoms are unchanged. ps1
[2018-10-29] MEDS ORDERED: MORPHINE 4 MG/ML SYR ONE ×2 (13:42→15:01)
[2018-10-29 15:21] VITALS: O2SAT 96
[2018-10-29 15:25] VITALS: BP 164/77; TEMP 98
== END 2018-10-29 15:05 ==
LOC: ER 10:22
DX: S72.21XA Displaced subtrochanteric fracture of right femur, initial encounter for closed fracture (principal); W18.30XA Fall on same level, unspecified, initial encounter; Y93.89 Activity, other specified; Y92.9 Unspecified place or not applicable; Z88.6 Allergy status to analgesic agent; Z88.1 Allergy status to other antibiotic agents; Z88.3 Allergy status to other anti-infective agents
CPT/HCPCS: 85025; 36415; 80053; 73502; 51702; 96375; 96374; 99285; J3010

== ENCOUNTER 2019-01-21 12:15 | Emergency (ER) | payer OTHER ==
--- OUTSIDE RECORDS SUMMARY | 2019-01-21 12:17 | XMS REPORT ---
:1935 Author Organization [facility] Address [address] [place] [address] Dr. Dickerson [address] [place] [id number] Care Team Providers Name Role Phone Unavailable Unavailable Unavailable Problems This patient has no known problems. Allergies, Adverse Reactions, Alerts This patient has no known allergies or adverse reactions. Medications This patient has no known medications. Encounters Start End Encounter Admission Attending Care Care Encounter Date/Time Date/Time Type Type Clinicians Facility Department ID 2019-01-10 2019-01-10 Inpatient E [facility] 15:16:00 01:33:00
--- NOTE | 2019-01-21 12:37 | ER ---
Nurse's Notes [facility] Name: Isiah Gaytan Age: 83 yrs Sex: Male : 1935 Arrival Date: 01/21/2019 Time: 12:20 Bed External Waiting Private MD: Ronn Wilson Diagnosis: Presentation: 01/21 12:24 Presenting complaint: Patient states: constipation for the last 1.5 weeks, PCP la1 requested I come get an X ray of my stomach. Transition of care: patient was not received from another setting of care. Onset of symptoms was January 21, 2019. Risk Assessment: Do you want to hurt yourself or someone else? Patient reports no desire to harm self or others. Initial Sepsis Screen: Does the patient meet any 2 criteria? No. Patient's initial sepsis screen is negative. Does the patient have a suspected source of infection? No. Patient's initial sepsis screen is negative. Care prior to arrival: None. 12:24 Method Of Arrival: Wheelchair la1 12:24 Acuity: MARIOLA 3 la1 Historical: - Allergies: 12:25 Azithromycin; la1 12:25 Codeine; la1 12:25 Keflex; la1 - PMHx: 12:25 Myocardial infarction; Hypertension; la1 - Immunization history:: Adult Immunizations up to date. - Social history:: Smoking status: Patient/guardian denies using tobacco. - Ebola Screening: : No symptoms or risks identified at this time. Assessment: 12:36 Reassessment: pt had orders for outpatient xray, was not to be registered as ER patient.iw Vital Signs: 12:25 BP 110 / 69; Pulse 79; Resp 16; Temp 98.3; Pulse Ox 100% on R/A; Weight 74.84 kg; la1 Height 5 ft. 7 in. (170.18 cm); 12:25 Body Mass Index 25.84 (74.84 kg, 170.18 cm) la1 ED Course: 12:20 Patient arrived in ED. as 12:20 Ronn Wilson MD is Private Physician. as 12:25 Triage completed. la1 12:26 Arm band placed on right wrist. la1 Administered Medications: No medications were administered Outcome: 12:37 Patient left the ED. iw Signatures: Dot Morrow Irene, RN RN iw Bob Meza, RN RN la1
[2019-01-21 12:42] VITALS: BP 110/69; TEMP 98.3; O2SAT 100
== END 2019-01-21 12:37 | disposition left against medical advice (07) ==
LOC: ER 12:15
DX: Z02.9 Encounter for administrative examinations, unspecified (principal)
CPT/HCPCS: 99281

== ENCOUNTER 2019-03-26 12:57 | Observation (INO) | payer OTHER ==
--- OUTSIDE RECORDS SUMMARY | 2019-03-26 12:59 | XMS REPORT ---
:1935 [facility] [address] [place] [address] Dr. Dickerson [address] [place] [id number] Care Team Providers Name Role Phone Unavailable Unavailable Unavailable Problems This patient has no known problems. Allergies, Adverse Reactions, Alerts This patient has no known allergies or adverse reactions. Medications This patient has no known medications. Encounters Start End Encounter Admission Attending Care Care Encounter Date/Time Date/Time Type Type Clinicians Facility Department ID 2019-01-10 2019-01-10 Inpatient E [facility] 15:16:00 01:33:00
[2019-03-26] MEDS ORDERED: NA CHLORIDE 0.9% 1,000 ML ONE (13:25)
[2019-03-26 13:39] LABS: Absolute Lymphocytes (CBC) 0.7 K/uL (0.7-4.9); Basophils % 0.5 % (0-1.3); Hematocrit 37.4 % (39.6-49.0); Lymphocytes % 22.8 % (15.3-44.8); MPV 8.8 fL (7.6-11.3); Protime INR 1.24
--- NOTE | 2019-03-26 13:46 | RAD REPORT ---
EXAM DESCRIPTION: Ruddy Single View03/26/2019 1:40 pm CLINICAL HISTORY: Shortness of breath COMPARISON: 2018 FINDINGS: The lungs appear clear of acute infiltrate. The heart is normal size. Small left pleural effusion may be present
[2019-03-26 14:13] LABS: Albumin 3.3 g/dL (3.4-5.0); Bilirubin Direct 0.2 mg/dL (0-0.2); Bilirubin Total 0.5 mg/dL (0.2-1.0); Magnesium 2.3 mg/dL (1.8-2.4); Potassium 4.4 mmol/L (3.5-5.1); Protein, Total 6.7 g/dL (6.4-8.2); Thyroid Stimulating Hormone 2.87 uIU/mL (0.360-3.740); Troponin (Emerg Dept Use Only) 0.08 ng/mL (0.0-0.045)
--- NOTE | 2019-03-26 14:28 | ER ---
Nurse's Notes [facility] Name: Isiah Gaytan Age: 83 yrs Sex: Male : 1935 Arrival Date: 03/26/2019 Time: 12:59 Bed 5 Private MD: Ronn Wilson Diagnosis: Atrial fibrillation and flutter;Dyspnea;Pleural effusion in conditions classified elsewhere-small left;Unspecified combined systolic (congestive) and diastolic (congestive) heart failure;Bradycardia, unspecified Presentation: 03/26 13:18 Presenting complaint: Patient states: Weak, SOB, anxious x 2 days, denies pain, reports jl7 intermittent palpitations. Transition of care: patient was not received from another setting of care. Onset of symptoms was March 24, 2019. Risk Assessment: Do you want to hurt yourself or someone else? Patient reports no desire to harm self or others. Initial Sepsis Screen: Does the patient meet any 2 criteria? No. Patient's initial sepsis screen is negative. Does the patient have a suspected source of infection? No. Patient's initial sepsis screen is negative. Care prior to arrival: None. 13:18 Method Of Arrival: Wheelchair jl7 13:18 Acuity: MARIOLA 2 jl7 Triage Assessment: 20:36 General: Appears in no apparent distress. General: Behavior is calm, cooperative. rv Respiratory: Onset: The symptoms/episode began/occurred suddenly, the patient has mild shortness of breath. Respiratory: Breath sounds with wheezes bilaterally. Historical: - Allergies: 13:20 Azithromycin; jl7 13:20 Codeine; jl7 13:20 Keflex; jl7 - Home Meds: 13:20 aspirin 81 mg Oral chew 1 tab once daily [Active]; Plavix 75 mg Oral tab 1 tab once jl7 daily for Myocardial Reinfarction Prevention [Active]; atorvastatin oral [Active]; metoprolol tartrate Oral [Active]; Nitrolingual TL [Active]; - PMHx: 13:20 Hypertension; Myocardial infarction; High Cholesterol; jl7 - Immunization history:: Adult Immunizations up to date. - Coronavirus screen:: The patient has NOT traveled to [place], [place], or [place] in the past 14 days. Proceed with normal triage process as indicated. - Social history:: Smoking status: Patient denies any tobacco usage or history of. - Family history:: not pertinent. - Ebola Screening: : No symptoms or risks identified at this time. Screenin:53 Abuse screen: Denies threats or abuse. Denies injuries from another. Nutritional sv screening: No deficits noted. Tuberculosis screening: No symptoms or risk factors identified. Fall Risk None identified. Assessment: 13:20 General: Appears in no apparent distress. comfortable, well developed, Behavior is sv calm, cooperative, appropriate for age. Pain: Denies pain. Neuro: Level of Consciousness is awake, alert, obeys commands, Oriented to person, place, time, situation, Moves all extremities. Full function Speech is normal. Neuro: Reports weakness when he bends down he feels like his head is going to explode and might pass out.. Cardiovascular: Patient's skin is warm and dry. Pulses are palpable in right radial artery and left radial artery Rhythm is atrial fibrillation. Respiratory: Airway is patent Respiratory effort is even, unlabored, Respiratory pattern is regular, symmetrical. Derm: Skin is pink, warm \T\ dry. 14:53 Reassessment: Patient appears in no apparent distress at this time. No changes from sv previously documented assessment. Patient and/or family updated on plan of care and expected duration. Pain level reassessed. Patient is alert, oriented x 3, equal unlabored respirations, skin warm/dry/pink. 15:58 Reassessment: Patient appears in no apparent distress at this time. Patient and/or sv family updated on plan of care and expected duration. Pain level reassessed. Patient is alert, oriented x 3, equal unlabored respirations, skin warm/dry/pink. 20:34 Reassessment: Patient appears in no apparent distress at this time. PATIENT IS ALERT rv AND ORIENTED. COMPLAINS OF PAIN WITH YOU CATHETER. TALKED TO DR B[place]ING[place] AND ORDERED TO REMOVE THE YOU. OYU CATH DISCONTINUED. Respiratory: Breath sounds with wheezes bilaterally. Vital Signs: 13:20 BP 137 / 84; Pulse 69; Resp 19 S; Temp 97.6(O); Pulse Ox 96% on R/A; Pain 0/10; jl7 14:25 BP 136 / 73; Pulse 68; Resp 19; Pulse Ox 97% ; sv 14:27 Weight 74 kg; sv 14:30 BP 127 / 78; Pulse 73; Resp 22; Pulse Ox 100% on R/A; sv 15:59 BP 147 / 82; Pulse 65 MON; Resp 21; Pulse Ox 100% on R/A; sv 16:45 BP 139 / 87; Pulse 72; Resp 18; Pulse Ox 99% ; sv 17:30 BP 121 / 84; Pulse 69; Resp 21; Pulse Ox 99% ; sv 19:00 BP 128 / 74; Pulse 64; Resp 17; Pulse Ox 100% on R/A; rv 20:00 BP 102 / 59; Pulse 67; Resp 19; Pulse Ox 100% on R/A; rv 20:34 BP 118 / 80; Pulse 70; Resp 15; Pulse Ox 100% on R/A; rv 15:59 A fib sv ED Course: 12:59 Patient arrived in ED. as 12:59 Ronn Wilson MD is Private Physician. as 13:16 Kevin Birmingham MD is Attending Physician. manish 13:19 Triage completed. jl7 13:20 Arm band placed on right wrist. jl7 13:23 EKG done, by emerging technologies director. reviewed by Kevin Birmingham MD. at1 13:25 Patient has correct armband on for positive identification. Placed in gown. Bed in low sv position. Call light in reach. Side rails up X2. Adult w/ patient. monitoring tech on. Pulse ox on. NIBP on. Door closed. Head of bed elevated. 13:25 Inserted saline lock: 20 gauge in right antecubital area, using aseptic technique. sv Blood collected. Flushed right antecubital with 5 ml normal saline. 13:29 Mindi Hendrix RN is Primary Nurse. sv 13:39 XRAY Chest (1 view) In Process Unspecified. EDMS 14:26 April Stevens MD is Hospitalizing Provider. manish 14:51 Awaiting bed assignment. sv 15:58 Awaiting bed assignment. sv 17:51 Awaiting bed assignment. sv 19:08 Primary Nurse role handed off by Mindi Hendrix RN sv 19:08 Report given to Jovanni PACE and Vladimir PACE. sv 20:33 Jb Salazar RN is Primary Nurse. rv 21:11 You cath removed intact, balloon deflated. rv 22:00 No provider procedures requiring assistance completed. Patient admitted, IV remains in rv place. Administered Medications: 13:29 Drug: NS 0.9% 1000 ml Route: IV; Rate: 125 ml/hr; Site: right antecubital; sv 20:37 Follow up: IV Status: Infusion continued upon admission rv 14:51 Drug: Aspirin 81 mg Route: PO; sv 20:37 Follow up: Response: No adverse reaction rv 14:51 Drug: Lovenox 1 mg/kg Route: Sub-Q; Site: right lower abdomen; sv 20:37 Follow up: Response: No adverse reaction rv 14:51 Drug: Pepcid 20 mg Route: IVP; Site: right antecubital; sv 20:38 Follow up: Response: No adverse reaction rv 14:51 Drug: Lasix 40 mg Route: IVP; Site: right antecubital; sv 20:38 Follow up: Response: No adverse reaction rv Output: 15:11 Urine: 150ml (Voided); Total: 150ml. sv 15:58 Urine: 700ml (Voided); Total: 850ml. sv 18:02 Urine: 1600ml (You); Total: 2450ml. sv Outcome: 14:27 Decision to Hospitalize by Provider. manish 18:18 Admitted to [facility]. [facility] hb 18:18 Condition: stable 18:18 Instructed on the need for admit, Demonstrated understanding of instructions. 03/27 08:07 Patient left the ED. ph Signatures: Dispatcher [employer] Mindi Rogers RN RN sv Anderson, Corey, MD MD cha Martinez, Amelia as Gonzales, Amanda, adobe cq developer EKG Tat1 Joi Montilla RN RN Zhanna Hill RN RN hb Leal, Jahala, RN RN jl7 Jb Salazar RN RN rv Corrections: (The following items were deleted from the chart) 03/26 16:02 15:59 Pulse 65bpm; Monitor: A fibResp 21bpm; Pulse Ox 100% RA; sv sv
--- NOTE | 2019-03-26 14:28 | EDPHYS ---
Physician Documentation [facility] Name: Isiah Gaytan Age: 83 yrs Sex: Male : 1935 Arrival Date: 03/26/2019 Time: 12:59 Bed 5 Private MD: Ronn Wilson ED Physician Kevin Blackwell HPI: 03/26 14:22 This 83 yrs old Male presents to ER via Wheelchair with complaints of General manish Weakness, Shortness Of Breath. 14:22 The patient has shortness of breath with light activity. Onset: The symptoms/episode manish began/occurred 2 day(s) ago. Duration: The symptoms are continuous, and are steadily getting worse. The patient's shortness of breath is aggravated by exertion, light activity, supine position. Associated signs and symptoms: Pertinent positives: non-productive cough, dizziness. Severity of symptoms: At their worst the symptoms were mild moderate in the emergency department the symptoms have improved mildly. The patient has experienced similar episodes in the past, a few times. Historical: - Allergies: 13:20 Azithromycin; jl7 13:20 Codeine; jl7 13:20 Keflex; jl7 - Home Meds: 13:20 aspirin 81 mg Oral chew 1 tab once daily [Active]; Plavix 75 mg Oral tab 1 tab once jl7 daily for Myocardial Reinfarction Prevention [Active]; atorvastatin oral [Active]; metoprolol tartrate Oral [Active]; Nitrolingual TL [Active]; - PMHx: 13:20 Hypertension; Myocardial infarction; High Cholesterol; jl7 - Immunization history:: Adult Immunizations up to date. - Coronavirus screen:: The patient has NOT traveled to [place], [place], or [place] in the past 14 days. Proceed with normal triage process as indicated. - Social history:: Smoking status: Patient denies any tobacco usage or history of. - Family history:: not pertinent. - Ebola Screening: : No symptoms or risks identified at this time. ROS: 14:22 Constitutional: Negative for fever, chills, and weight loss, Eyes: Negative for injury, manish pain, redness, and discharge, ENT: Negative for injury, pain, and discharge, Neck: Negative for injury, pain, and swelling, Cardiovascular: Negative for chest pain, palpitations, and edema, Abdomen/GI: Negative for abdominal pain, nausea, vomiting, diarrhea, and constipation, Back: Negative for injury and pain, : Negative for injury, bleeding, discharge, and swelling, MS/Extremity: Negative for injury and deformity, Skin: Negative for injury, rash, and discoloration, Neuro: Negative for headache, weakness, numbness, tingling, and seizure, Psych: Negative for depression, anxiety, suicide ideation, homicidal ideation, and hallucinations, Allergy/Immunology: Negative for hives, rash, and allergies, Endocrine: Negative for neck swelling, polydipsia, polyuria, polyphagia, and marked weight changes, Hematologic/Lymphatic: Negative for swollen nodes, abnormal bleeding, and unusual bruising. 14:22 Respiratory: Positive for cough, shortness of breath, on exertion. Exam: 14:22 Constitutional: This is a well developed, well nourished patient who is awake, alert, manish and in no acute distress. Head/Face: Normocephalic, atraumatic. Eyes: Pupils equal round and reactive to light, extra-ocular motions intact. Lids and lashes normal. Conjunctiva and sclera are non-icteric and not injected. Cornea within normal limits. Periorbital areas with no swelling, redness, or edema. ENT: Nares patent. No nasal discharge, no septal abnormalities noted. Tympanic membranes are normal and external auditory canals are clear. Oropharynx with no redness, swelling, or masses, exudates, or evidence of obstruction, uvula midline. Mucous membranes moist. Neck: Trachea midline, no thyromegaly or masses palpated, and no cervical lymphadenopathy. Supple, full range of motion without nuchal rigidity, or vertebral point tenderness. No Meningismus. Chest/axilla: Normal chest wall appearance and motion. Nontender with no deformity. No lesions are appreciated. Abdomen/GI: Soft, non-tender, with normal bowel sounds. No distension or tympany. No guarding or rebound. No evidence of tenderness throughout. Back: No spinal tenderness. No costovertebral tenderness. Full range of motion. Male : Normal genitalia with no discharge or lesions. Skin: Warm, dry with normal turgor. Normal color with no rashes, no lesions, and no evidence of cellulitis. MS/ Extremity: Pulses equal, no cyanosis. Neurovascular intact. Full, normal range of motion. Neuro: Awake and alert, GCS 15, oriented to person, place, time, and situation. Cranial nerves II-XII grossly intact. Motor strength 5/5 in all extremities. Sensory grossly intact. Cerebellar exam normal. Normal gait. Psych: Awake, alert, with orientation to person, place and time. Behavior, mood, and affect are within normal limits. 14:22 Cardiovascular: Rate: normal, Rhythm: irregularly irregular, Pulses: Pulses are 4+ in bilateral radial, brachial, femoral, popliteal, posterior tibial and and dorsalis pedis arteries.. 14:22 Respiratory: the patient does not display signs of respiratory distress, Respirations: normal, no acute changes, Breath sounds: decreased breath sounds, rhonchi, that are mild, Respiratory rate: 69 Vital Signs: 13:20 BP 137 / 84; Pulse 69; Resp 19 S; Temp 97.6(O); Pulse Ox 96% on R/A; Pain 0/10; jl7 14:25 BP 136 / 73; Pulse 68; Resp 19; Pulse Ox 97% ; sv 14:27 Weight 74 kg; sv 14:30 BP 127 / 78; Pulse 73; Resp 22; Pulse Ox 100% on R/A; sv 15:59 BP 147 / 82; Pulse 65 MON; Resp 21; Pulse Ox 100% on R/A; sv 16:45 BP 139 / 87; Pulse 72; Resp 18; Pulse Ox 99% ; sv 17:30 BP 121 / 84; Pulse 69; Resp 21; Pulse Ox 99% ; sv 19:00 BP 128 / 74; Pulse 64; Resp 17; Pulse Ox 100% on R/A; rv 20:00 BP 102 / 59; Pulse 67; Resp 19; Pulse Ox 100% on R/A; rv 20:34 BP 118 / 80; Pulse 70; Resp 15; Pulse Ox 100% on R/A; rv 15:59 A fib sv MDM: 13:16 Patient medically screened. [facility] 14:24 Data reviewed: vital signs, nurses notes, lab test result(s), EKG, radiologic studies, [facility] doppler, plain films. 03/26 13:17 Order name: Basic Metabolic Panel; Complete Time: 14:19 [facility] 03/26 13:17 Order name: CBC with Diff; Complete Time: 14:19 [facility] 03/26 13:17 Order name: LFT's; Complete Time: 14:19 [facility] 03/26 13:17 Order name: Magnesium; Complete Time: 14:19 [facility] 03/26 13:17 Order name: NT PRO-BNP; Complete Time: 14:19 [facility] 03/26 13:17 Order name: PT-INR; Complete Time: 14:19 [facility] 03/26 13:17 Order name: Troponin (emerg Dept Use Only); Complete Time: 14:19 [facility] 03/26 13:17 Order name: Lipase; Complete Time: 14:19 [facility] 03/26 13:17 Order name: TSH; Complete Time: 14:19 [facility] 03/26 14:54 Order name: Procalcitonin [facility] 03/26 14:56 Order name: CBC with Automated Diff [facility] 03/26 14:56 Order name: CBC with Automated Diff [facility] 03/26 14:56 Order name: Comprehensive Metabolic Panel [facility] 03/26 14:56 Order name: Comprehensive Metabolic Panel [facility] 03/26 13:17 Order name: XRAY Chest (1 view); Complete Time: 14:19 [facility] 03/26 13:17 Order name: EKG; Complete Time: 13:18 [facility] 03/26 14:21 Order name: Echo w/ Doppler [facility] 03/26 14:56 Order name: CONS Pharmacy Consult [facility] 03/26 14:56 Order name: Lipid Profile [facility] 03/26 14:56 Order name: Lipid Profile [facility] 03/26 14:56 Order name: Troponin I [facility] 03/26 14:56 Order name: Troponin I [facility] 03/26 14:56 Order name: Troponin I [facility] 03/26 20:50 Order name: Urine Dipstick--Ancillary (enter results) [facility] 03/26 22:42 Order name: Urine Dipstick-Ancillary [facility] 03/26 13:17 Order name: Cardiac monitoring; Complete Time: 13:30 [facility] 03/26 13:17 Order name: EKG - Nurse/Tech; Complete Time: 13:30 [facility] 03/26 13:17 Order name: IV Saline Lock; Complete Time: 13:30 [facility] 03/26 13:17 Order name: Labs collected and sent; Complete Time: 13:30 [facility] 03/26 13:17 Order name: O2 Per Protocol; Complete Time: 13:30 [facility] 03/26 13:17 Order name: O2 Sat Monitoring; Complete Time: 13:30 [facility] 03/26 13:17 Order name: Urine Dipstick-Ancillary (obtain specimen); Complete Time: 20:38 [facility] 03/26 14:56 Order name: Heart Healthy [facility] 03/26 16:57 Order name: Diet Heart Healthy; Complete Time: 16:57 bd Administered Medications: 13:29 Drug: NS 0.9% 1000 ml Route: IV; Rate: 125 ml/hr; Site: right antecubital; sv 20:37 Follow up: IV Status: Infusion continued upon admission rv 14:51 Drug: Aspirin 81 mg Route: PO; sv 20:37 Follow up: Response: No adverse reaction rv 14:51 Drug: Lovenox 1 mg/kg Route: Sub-Q; Site: right lower abdomen; sv 20:37 Follow up: Response: No adverse reaction rv 14:51 Drug: Pepcid 20 mg Route: IVP; Site: right antecubital; sv 20:38 Follow up: Response: No adverse reaction rv 14:51 Drug: Lasix 40 mg Route: IVP; Site: right antecubital; sv 20:38 Follow up: Response: No adverse reaction rv Disposition: 03/26/19 14:27 Hospitalization ordered by April Stevens for Inpatient Admission. Preliminary diagnosis are Atrial fibrillation and flutter, Dyspnea, Pleural effusion in conditions classified elsewhere - small left, Unspecified combined systolic (congestive) and diastolic (congestive) heart failure, Bradycardia, unspecified. - Bed requested for Telemetry/MedSurg (Inpatient). - Status is Inpatient Admission. ph - Condition is Stable. - Problem is new. - Symptoms have improved. UTI on Admission? No Signatures: Dispatcher [employer] [facility] Dayana Lee Mindi Hendrix RN RN sv Woody, Diana, RN RN dw Anderson, Corey, MD MD cha Hall, Patricia, RN RN ph Leal, Jahala RN RN Jb Wilkinson RN rv Corrections: (The following items were deleted from the chart) 18:16 14:27 Hospitalization Ordered by April Stevens MD for Inpatient Admission. Preliminary bd diagnosis is Atrial fibrillation and flutter; Dyspnea; Pleural effusion in conditions classified elsewhere - small left; Unspecified combined systolic (congestive) and diastolic (congestive) heart failure; Bradycardia, unspecified. Bed requested for Telemetry/MedSurg (Inpatient). Status is Inpatient Admission. Condition is Stable. Problem is new. Symptoms have improved. UTI on Admission? No. manish 20:37 15:51 Boykin ordered. manish rv 03/27 06:01 03/26 18:16 03/26/2019 14:27 Hospitalization Ordered by April Stevens MD for Inpatient dw Admission. Preliminary diagnosis is Atrial fibrillation and flutter; Dyspnea; Pleural effusion in conditions classified elsewhere - small left; Unspecified combined systolic (congestive) and diastolic (congestive) heart failure; Bradycardia, unspecified. Bed requested for [facility] ER HOLD. Status is Inpatient Admission. Condition is Stable. Problem is new. Symptoms have improved. UTI on Admission? No. bd 03/27 08:07 06:01 03/26/2019 14:27 Hospitalization Ordered by April Stevens MD for Inpatient ph Admission. Preliminary diagnosis is Atrial fibrillation and flutter; Dyspnea; Pleural effusion in conditions classified elsewhere - small left; Unspecified combined systolic (congestive) and diastolic (congestive) heart failure; Bradycardia, unspecified. Bed requested for Telemetry/MedSurg (Inpatient). Status is Inpatient Admission. Condition is Stable. Problem is new. Symptoms have improved. UTI on Admission? No. dw
[2019-03-26] MEDS ORDERED: ASPIRIN 81 MG CHEWABLE TABLET ONE (14:36)
[2019-03-26] MEDS ORDERED: ENOXAPARIN 80 MG/0.8 ML SQ ONE (14:37)
[2019-03-26] MEDS ORDERED: FAMOTIDINE 20 MG/2 ML VIAL IV ONE (14:37)
[2019-03-26] MEDS ORDERED: FUROSEMIDE 40 MG/4 ML VIAL ONE (14:37)
--- NOTE | 2019-03-26 14:52 | P.HP ---
Certification for Inpatient Patient admitted to: Observation With expected LOS: <2 Midnights Practitioner: I am a practitioner with admitting privileges, knowledge of patient current condition, hospital course, and medical plan of care. Services: Services provided to patient in accordance with Admission requirements found in Title 42 Section 412.3 of the Code of Federal Regulations Patient History Date of Service: 03/26/19 Reason for admission: Shortness of breath History of Present Illness: Mr. Gaytan is 83-year-old male with a history of CAD status post stents, skin cancer status post skin graft and osteoarthritis who presented to the ER with complaints of 3-4 days progressive shortness of breath. Patient reports orthopnea, PND and KWONG. He denies any chest pain however endorses palpitations. He has associated lightheadedness, usually when he changes position. He denies any fever and no chills. He denies history of congestive heart failure. Allergies cephalexin [From Keflex] Allergy (Verified 05/08/17 15:13) Unknown codeine Allergy (Verified 05/08/17 15:13) Unknown piperacillin [From Zosyn] Allergy (Verified 06/05/18 17:57) Itching tazobactam [From Zosyn] Allergy (Verified 06/05/18 17:57) Itching Home Medications: Famotidine 20 mg PO DAILY PRN 05/08/17 Clopidogrel Bisulfate [Plavix*] 75 mg PO DAILY #30 tablet 05/10/17 Metoprolol Tartrate 50 mg PO DAILY 05/27/18 - Past Medical/Surgical History Diabetic: No -: Hypertention -: Squamous and basal cell Carcinoma -: CAD -: Osteoarthritis -: Knee surgery -: back surgery -: elbow surgery -: Cardiac stents x3 - Family History Father -: Heart disease Mother -: Diabetes, Cancer Notes: Colon cancer - Social History Alcohol use: Yes CD- Drugs: No Caffeine use: Yes Review of Systems 10-point ROS is otherwise unremarkable Respiratory: Shortness of Breath Cardiovascular: Palpitations, Orthopnea, Paroxysmal Noc. Dyspnea, Edema, Light Headedness Physical Examination - Physical Exam General: Alert, In no apparent distress HEENT: Atraumatic, PERRLA, Mucous membr. moist/pink, EOMI, Sclerae nonicteric Neck: Supple, 2+ carotid pulse no bruit, No LAD, Without JVD or thyroid abnormality, JVD distended Respiratory: Diminished, Crackles/rales (at bases) Cardiovascular: Normal S1 S2, Edema (1+ bilateral), Irregular heart rate/rhythm Gastrointestinal: Normal bowel sounds, No tenderness Musculoskeletal: Other (Decreased ROM of bilateral knes) Integumentary: No rashes, Other (Skin graft on scalp) Neurological: Normal gait, Normal speech, Normal strength at 5/5 x4 extr, Normal tone, Normal affect Lymphatics: No axilla or inguinal lymphadenopathy - Studies Laboratory Data (last 24 hrs) 03/26/19 13:25: PT 14.5 H, INR 1.24 03/26/19 13:25: WBC 3.1 L, Hgb 12.1 L, Hct 37.4 L, Plt Count 132 L 03/26/19 13:25: Sodium 141, Potassium 4.4, BUN 20 H, Creatinine 0.95, Glucose 98 , Magnesium 2.3, Total Bilirubin 0.5, AST 33, ALT 52, Alkaline Phosphatase 143 H , Lipase 191 Assessment and Plan - Plan Mr. Gaytan is 83-year-old male with history of CAD and atrial fibrillation presenting with shortness of breath. #Shortness of breath-Mild CHF exacerbation, type unknown. Patient with elevated BNP and trace bilateral lower extremity edema. Chest x-ray is unremarkable. Patient had mild elevated JVD -low-dose IV Lasix b.i.d.. Strict Is & Os,low-salt diet and fluid restriction. -obtain echocardiogram. -consult intensive care unit nurse for assistance. -troponin x1 at 0.08, Will trend. -EKG with atrial fibrillation, rate controlled. -Rule out acute infection. #Atrial fibrillation-rate control. Patient with history of chronic AFib. Not on oral anti coagulation. -obtain CT head given reported lightheadedness. - Continue on beta-evita. Defer anti coagulation to intensive care unit nurse. #CAD status post stents-last stent was over 2 years ago. -Continue Plavix home medication. #Bilateral knee osteoarthritis-patient on Tylenol at home, pain is uncontrolled. -will benefit from outpatient ortho follow-up for possible steroid injection. -continue pain control while inpatient. DVT prophylaxis-Lovenox Patient is full code. Disposition-observation admission. Discharge Plan: Home - Advance Directives Does patient have a Living Will: No Does patient have a Durable POA for Healthcare: Yes - Code Status/Comfort Care Code Status Assessed: Yes Code Status: Full Code
[2019-03-26] MEDS ORDERED: ONDANSETRON 4 MG/2 ML VIAL IV PRN (14:54)
[2019-03-26] MEDS ORDERED: ALBUTEROL 2.5 MG/3 ML NEB SOL NEB PRN (14:54)
--- NOTE | 2019-03-26 15:29 | EKG ---
Test Date: 2019-03-26 Test Time: 13:20:08 Airways Control Specialist: SUKHWINDER MEASUREMENT RESULTS: Intervals: Rate: 69 [place]: QRSD: 78 QT: 412 QTc: 441 [place]: P: [place]: QRS: 76 T: 165 INTERPRETIVE STATEMENTS: Atrial fibrillation ST & T wave abnormality, consider lateral ischemia or digitalis effect Abnormal ECG Compared to ECG 05/27/2018 17:35:00 Sinus rhythm no longer present Right-axis deviation no longer present ST (T wave) deviation still present Possible ischemia still present Electronically Signed On 03-26-19 15:29:31 BUSINESS TRAINER by Mitesh Rangel
[2019-03-26] MEDS ORDERED: NA CHLORIDE 0.9% 2,000 ML ONE (16:16)
[2019-03-26] MEDS ORDERED: FAMOTIDINE 20 MG TAB PO PRN (18:01)
[2019-03-26] MEDS ORDERED: FUROSEMIDE 20 MG/ 2ML VIAL IV SCH (18:01)
[2019-03-26] MEDS: IPRATROPIUM BROM 0.5MG/2.5ML NEB SCH (19:05)
[2019-03-26] MEDS ORDERED: IPRATROPIUM BROM 0.5MG/2.5ML ONE (19:08)
[2019-03-26 22:41] LABS: Urine Blood TRACE (NEG); Urine Glucose NEGATIVE (NEG); Urine Protein NEGATIVE (NEG); Urine Specific Gravity 1.015 (1.005-1.030)
[2019-03-27] MEDS: IPRATROPIUM BROM 0.5MG/2.5ML NEB SCH ×4 (01:45→20:45)
[2019-03-27] MEDS ORDERED: IPRATROPIUM BROM 0.5MG/2.5ML ONE (01:47)
[2019-03-27 05:28] LABS: Absolute Lymphocytes (CBC) 0.8 K/uL (0.7-4.9); Basophils % 0.9 % (0-1.3); Hematocrit 33.3 % (39.6-49.0); Lymphocytes % 24.5 % (15.3-44.8); MPV 8.7 fL (7.6-11.3); RBC Red Blood Cell Count 3.62 M/uL (4.33-5.43)
[2019-03-27 05:47] LABS: Albumin 2.9 g/dL (3.4-5.0); Bilirubin Total 0.6 mg/dL (0.2-1.0); Potassium 4.1 mmol/L (3.5-5.1); Protein, Total 5.8 g/dL (6.4-8.2)
[2019-03-27] MEDS ORDERED: METOPROLOL TAR 50 MG TAB PO SCH (09:00)
[2019-03-27] MEDS ORDERED: FUROSEMIDE 20 MG/ 2ML VIAL IV SCH (09:00)
[2019-03-27] MEDS ORDERED: CLOPIDOGREL 75 MG TABLET PO SCH (09:00)
--- NOTE | 2019-03-27 13:13 | CON ---
Date of Consultation: 03/27/2019 Admitted on 03/27/2019. I saw the patient on 03/27/2019. Reason For Consultation: Atrial fibrillation and congestive heart failure. History Of Present Illness: Mr. Gaytan is an 83-year-old white male who is very well known to me fr om previous office visits and admissions. He has a history of coronary artery disease status post 2 LAD stents, the last 1 was in 2013. He had a recent stress test in 2018 that was unremarkable. The last echocardiogram in 2018 showed a normal ejection fraction. He has a history of hypertension. He has a history of benign prostatic hypertrophy. He comes in with new onset atrial fibrillation with congestive heart failure. The symptoms have been going on for about 48 hours. He recently was at [facility] in [place] for pneumonia and pleural effusion and he was there for about 8 days. He salma ed any chest pain or syncope. He denied any fever or chills or cough. Past Medical History: As stated above. Allergies: KEFLEX, CODEINE, ZOSYN. Review of Systems: Negative. Social History: Negative. Family History: Negative. Medications: At home include metoprolol, Plavix, aspirin, Flomax, and Lipitor. Physical Examination: General: When I saw him, he was already back in sinus rhythm. Vital Signs: Stable. He was afebrile. HEENT: Negative. Neck: Supple. No bruit. Chest: Clear. Cardiac: Revealed a regular rhythm and rate with an aortic sclerosis, murmur. No gallops or rubs. Abdomen: Benign. Extremities: Revealed no clubbing, cyanosis, or edema. Diagnostic Data: Except for initial EKG were fairly unremarkable. Impression And Plan: 1.New onset atrial fibrillation. I think I will take him off the Plavix. I will take him off metop rolol. We should start Betapace 80 b.i.d. I will put him on Xarelto or Eliquis. Echocardiogram and TSH are pending. 2.New onset congestive heart failure, most likely diastolic and secondary to atrial fibrillation. W josafat will see what the echocardiogram shows. He has already been diuresed and is feeling better. He ma y need to go home on low-dose Lasix. 3.Hypertension, well controlled. 4.Coronary artery disease, well controlled. 5.Dyslipidemia, well controlled. 6.BPH. I will continue to follow Mr. Gaytan. We will see what the echocardiogram shows. PEDRO/JAYLEEN Voice ID: [id number] Report ID: [id number]
--- NOTE | 2019-03-27 14:31 | P.PN ---
Subjective Date of Service: 03/27/19 Chief Complaint: Shortness of breath Subjective: Improving Review of Systems 10-point ROS is otherwise unremarkable Physical Examination - Vital Signs Temperature: 97.4 F Blood Pressure: 118/66 Pulse: 70 Respirations: 18 Pulse Ox (%): 98 - Physical Exam General: Alert, In no apparent distress HEENT: Atraumatic, PERRLA, EOMI Neck: Supple, JVD not distended Respiratory: Clear to auscultation bilaterally, Normal air movement Cardiovascular: Regular rate/rhythm, Normal S1 S2 Gastrointestinal: Normal bowel sounds, No tenderness Musculoskeletal: No tenderness Integumentary: No rashes Neurological: Normal speech, Normal tone, Normal affect Lymphatics: No axilla or inguinal lymphadenopathy - Studies Laboratory Tests 03/26/19 03/26/19 03/27/19 13:25 18:05 05:00 WBC 3.4 L RBC 3.62 L Plt Count 114 L Sodium Potassium BUN Creatinine Alkaline Phosphatase Serum Total Protein Cholesterol/HDL Ratio Lipase 191 Procalcitonin 0.10 TSH 2.870 03/27/19 05:00 WBC RBC Plt Count Sodium 142 Potassium 4.1 BUN 22 H Creatinine 0.91 Alkaline Phosphatase 107 Serum Total Protein 5.8 L Cholesterol/HDL Ratio 2.69 Lipase Procalcitonin TSH Assessment And Plan - Plan Mr. Gaytan is 83-year-old male with history of CAD and atrial fibrillation presenting with shortness of breath. #Shortness of breath-Mild CHF exacerbation, type unknown. Patient with elevated BNP and trace bilateral lower extremity edema. Chest x-ray is unremarkable. Patient had mild elevated JVD -low-dose po Lasix b.i.d.. Strict Is & Os,low-salt diet and fluid restriction. -obtain echocardiogram. -consult financial operations consultant for assistance. -EKG with atrial fibrillation, rate controlled. -Rule out acute infection. #Elevated cardio biomarker- leak due to Afib/CHF -monitor. #New onset Atrial fibrillation-rate control. -now on sotalol and eliquis per cardio recommendation -rate controlled. #CAD status post stents-last stent was over 2 years ago. -discontinue Plavix. #Bilateral knee osteoarthritis-patient on Tylenol at home, pain is uncontrolled. -will benefit from outpatient ortho follow-up for possible steroid injection. -continue pain control while inpatient. -PT/OT DVT prophylaxis-Lovenox Patient is full code. Disposition-observation admission. Discharge Plan: Home
[2019-03-27 16:01] VITALS: BMI 25.8
[2019-03-27] MEDS: SOTALOL HCL 80 MG TAB PO SCH (17:26)
[2019-03-27] MEDS: FUROSEMIDE 40 MG TABLET PO SCH (17:27)
[2019-03-27] MEDS: CEPACOL LOZENGES PO PRN ×2 (17:39→20:40)
[2019-03-27] MEDS: APIXABAN 5 MG TABLET PO SCH (20:39)
[2019-03-28] MEDS: IPRATROPIUM BROM 0.5MG/2.5ML NEB SCH ×3 (02:18→14:00)
[2019-03-28] MEDS: SOTALOL HCL 80 MG TAB PO SCH ×2 (06:46→17:13)
[2019-03-28] MEDS: APIXABAN 5 MG TABLET PO SCH (08:29)
[2019-03-28] MEDS: FUROSEMIDE 40 MG TABLET PO SCH ×2 (08:29→16:08)
[2019-03-28 08:50] LABS: Absolute Lymphocytes (CBC) 0.9 K/uL (0.7-4.9); Basophils % 0.8 % (0-1.3); Hematocrit 38.3 % (39.6-49.0); Lymphocytes % 26.2 % (15.3-44.8); MPV 8.6 fL (7.6-11.3)
[2019-03-28 09:12] LABS: Albumin 3.1 g/dL (3.4-5.0); Bilirubin Total 0.6 mg/dL (0.2-1.0); Magnesium 2.3 mg/dL (1.8-2.4); Potassium 4.1 mmol/L (3.5-5.1); Protein, Total 6.4 g/dL (6.4-8.2)
[2019-03-28] MEDS ORDERED: CODEINE 30MG/APAP 300MG TAB PO PRN (13:46)
--- NOTE | 2019-03-28 13:50 | EKG ---
Test Date: 2019-03-27 Test Time: 11:25:14 Asphalt Roller Person: XOCHILT MEASUREMENT RESULTS: Intervals: Rate: 72 [place]: QRSD: 78 QT: 416 QTc: 455 [place]: P: NE: QRS: 91 T: 189 INTERPRETIVE STATEMENTS: Atrial fibrillation Rightward axis ST & T wave abnormality, consider lateral ischemia or digitalis effect Abnormal ECG Compared to ECG 03/26/2019 13:20:08 Right-axis deviation now present ST (T wave) deviation still present Possible ischemia still present Electronically Signed On 03-28-19 13:47:05 SYSTEMS CONSULTANT by Pollo Navarro
--- NOTE | 2019-03-28 14:05 | P.DS ---
Admission Date: 03/26/19 Discharge Date: 03/28/19 Disposition: ROUTINE DISCHARGE Discharge Condition: GOOD Reason for Admission: Shortness of breath Consultations: Ribbon Cleaner - Problems (1) Atrial fibrillation Current Visit: Yes Status: Acute (2) Osteoarthritis Current Visit: Yes Status: Acute (3) CAD (coronary artery disease) Onset Date: 05/09/17 Current Visit: No Status: Acute Qualifiers: Coronary Disease-Associated Artery/Lesion type: [place] artery [place] vs. transplanted heart: [place] heart Associated angina: without angina Qualified Code(s): I25.10 - Atherosclerotic heart disease of [place] coronary artery without angina pectoris (4) History of skin cancer Current Visit: No Status: Acute (5) HTN (hypertension) Onset Date: 05/09/17 Current Visit: No Status: Chronic Qualifiers: Hypertension type: essential hypertension Qualified Code(s): I10 - Essential (primary) hypertension (6) Diastolic heart failure Current Visit: Yes Status: Acute Brief History of Present Illness: "Mr. Gaytan is 83-year-old male with a history of CAD status post stents, skin cancer status post skin graft and osteoarthritis who presented to the ER with complaints of 3-4 days progressive shortness of breath. Patient reports orthopnea, PND and KWONG. He denies any chest pain however endorses palpitations. He has associated lightheadedness, usually when he changes position. He denies any fever and no chills. He denies history of congestive heart failure ". Hospital Course: Patient was admitted for evaluation dyspnea and was found to be in decompensated diastolic heart failure secondary to new onset atrial fibrillation. He was evaluated by front office director. There was no evidence of acute coronary syndrome. Patient has been initiated on sotalol with Eliquis for oral anti coagulation. He was diuresed and currently euvolemic. His Plavix and metoprolol has been discontinued. He will follow up with his PCP and front office director outpatient for further care. Patient has a history of osteoarthritis of the knee. He had a recent corticosteroid injection to the right knee. He will benefit from outpatient physical therapy. He remained hemodynamically stable for discharge home. Vital Signs/Physical Exam: Temp Pulse Resp BP Pulse Ox 97.7 F 64 14 126/69 100 03/28/19 12:00 03/28/19 12:00 03/28/19 12:00 03/28/19 12:00 03/28/19 12:00 General: Alert, In no apparent distress HEENT: PERRLA, Other (skin graft on scalp), EOMI Neck: Supple, JVD not distended Respiratory: Clear to auscultation bilaterally, Normal air movement Cardiovascular: Regular rate/rhythm, Normal S1 S2 Gastrointestinal: Normal bowel sounds, No tenderness Musculoskeletal: No erythema (R knee), No warmth, Tenderness Integumentary: No rashes Neurological: Normal speech, Normal tone, Normal affect Lymphatics: No axilla or inguinal lymphadenopathy Laboratory Data at Discharge: WBC 3.4 K/uL (4.3-10.9) L 03/28/19 08:26 Hgb 12.5 g/dL (13.6-17.9) L 03/28/19 08:26 Hct 38.3 % (39.6-49.0) L D 03/28/19 08:26 Plt Count 140 K/uL (152-406) L D 03/28/19 08:26 PT 14.5 SECONDS (9.5-12.5) H 03/26/19 13:25 INR 1.24 03/26/19 13:25 Sodium 142 mmol/L (136-145) 03/28/19 08:26 Potassium 4.1 mmol/L (3.5-5.1) 03/28/19 08:26 BUN 20 mg/dL (7-18) H 03/28/19 08:26 Creatinine 0.94 mg/dL (0.55-1.3) 03/28/19 08:26 Glucose 91 mg/dL (74-106) 03/28/19 08:26 Magnesium 2.3 mg/dL (1.8-2.4) 03/28/19 08:26 Total Bilirubin 0.6 mg/dL (0.2-1.0) 03/28/19 08:26 AST 23 U/L (15-37) 03/28/19 08:26 ALT 38 U/L (12-78) 03/28/19 08:26 Alkaline Phosphatase 127 U/L (45-117) H 03/28/19 08:26 Troponin I 0.08 ng/mL (0.0-0.045) H 03/26/19 21:57 Triglycerides 70 mg/dL (<150) 03/27/19 05:00 Cholesterol 97 mg/dL (<200) 03/27/19 05:00 HDL Cholesterol 36 mg/dL (40-60) L 03/27/19 05:00 Cholesterol/HDL Ratio 2.69 03/27/19 05:00 Lipase 191 U/L (73-393) 03/26/19 13:25 Home Medications: Famotidine 20 mg PO DAILY PRN 05/08/17 Apixaban [Eliquis] 5 mg PO BID #60 tablet 03/28/19 Sotalol HCl [Betapace*] 80 mg PO BID 6AM 6PM #60 tab 03/28/19 New Medications: Apixaban [Eliquis] 5 mg PO BID #60 tablet Sotalol HCl [Betapace*] 80 mg PO BID 6AM 6PM #60 tab Diet: AHA Activity: Fall precautions Followup: Pollo Navarro MD [ACTIVE - CAN ADMIT] - 1 Week (call to schedule appointment ) Ronn Wilson MD [Primary Care Provider] - 1 Week (call to schedule appointment )
[2019-03-28] MEDS ORDERED: ACETAMINOPHEN 500 MG TAB PO PRN (14:07)
--- NOTE | 2019-03-28 14:07 | ECHO ---
HEIGHT: 5 ft 8 in WEIGHT: 170 lb 0 oz DATE OF STUDY: 03/27/[address]: Kevin Blackwell MD 2-DIMENSIONAL: YES M.MODE: YES DOPPLER: YES COLOR FLOW: YES TDS: PORTABLE: DEFINITY: BUBBLE STUDY: DIAGNOSIS: ATRIAL FIBRILLATION/ CONGESTIVE HEART FAILURE CARDIAC HISTORY: CATHERIZATION: YES SURGERY: NO PROSTHETIC VALVE: NO PACEMAKER: NO MEASUREMENTS (cm) DIASTOLIC (NORMALS) SYSTOLIC (NORMALS) IVSd 1.4 (0.6-1.2) LA Diam 4.1 (1.9-4.0) LVEF 56% LVIDd 4.3 (3.5-5.7) LVIDs 3.1 (2.0-3.5) %FS 29% LVPWd 1.3 (0.6-1.2) Ao Diam 2.7 (2.0-3.7) 2 DIMENSIONAL ASSESSMENT: RIGHT ATRIUM: NORMAL LEFT ATRIUM: DILATED RIGHT VENTRICLE: NORMAL LEFT VENTRICLE: LEFT VENTRICULAR HYPERTROPHY TRICUSPID VALVE: NORMAL MITRAL VALVE: NORMAL PULMONIC VALVE: NORMAL AORTIC VALVE: SCLEROSIS PERICARDIAL EFFUSION: NONE AORTIC ROOT: NORMAL LEFT VENTRICULAR WALL MOTION: NORMAL DOPPLER/COLOR FLOW: MILD TRICUSPID REGURGITATION. COMMENTS: MILD TRICUSPID REGURGITATION. NORMAL RIGHT VENTRICULAR SYSTOLIC PRESSURE. LEFT VENTRICULAR HYPERTROPHY. AORTIC SCLEROSIS. NO STENOSIS. LEFT ATRIAL ENLARGEMENT NO THROMBUS. NORMAL EJECTION FRACTION. TECHNOLOGIST: BALAJI PRECIADO
[2019-03-28 15:38] VITALS: O2SAT 98
[2019-03-28 16:26] VITALS: BP 136/73; TEMP 97.8
--- NOTE | 2019-03-28 21:29 | PN ---
Date of Progress Note: 03/28/2019 Mr. Gaytan was admitted yesterday with new-onset CHF, new-onset atrial fibrillation, has had a histo ry of coronary artery disease. He was placed on sotalol 80 b.i.d. and Eliquis yesterday. Today, he is in normal sinus rhythm with occasional PACs. He is feeling much better. Echocardiogram showed no rmal ejection fraction without any wall motion abnormalities. He has some aortic sclerosis, but no s tenosis. He has some mitral annular calcification. He is in good spirits, feeling good. He can go home today on his present regimen including the Betapace and Eliquis, and I will see him in the offic e in the next 2 weeks. PEDRO/JAYLEEN Voice ID: [id number] Report ID: [id number]
== END 2019-03-28 17:41 | disposition home or self-care (01) ==
LOC: ER 12:57 → ERHOLD 14:54 → 4TH 03-27 07:57
PROVIDERS: ADMIT Hospitalist; ATTEND Hospitalist
DX: I11.0 Hypertensive heart disease with heart failure (principal); I50.31 Acute diastolic (congestive) heart failure; I48.91 Unspecified atrial fibrillation; M19.90 Unspecified osteoarthritis, unspecified site; I25.10 Atherosclerotic heart disease of native coronary artery without angina pectoris; Z85.828 Personal history of other malignant neoplasm of skin; Z95.5 Presence of coronary angioplasty implant and graft
CPT/HCPCS: 96361; 93005 ×2; 93306; 85025 ×3; 80048; 36415 ×3; 83735 ×2; 85610; 80061; 80076; 84443; 81003; 84484 ×3; 83690; 80053 ×2; 84145; 83880; 71045; 97116; 97161; 97165; 97530 ×2; 94640; 96375; 96372; 96374; 99285; J1940 ×2; J1650; G0378 ×5; J7030 ×2

== ENCOUNTER 2019-04-22 06:41 | Day surgery (SDC) | payer OTHER ==
[2019-04-21 13:07] LABS: Basophils % 0.6 % (0-1.3); Hematocrit 38.8 % (39.6-49.0); Lymphocytes % 20.1 % (15.3-44.8); MPV 9.1 fL (7.6-11.3); RBC Red Blood Cell Count 4.17 M/uL (4.33-5.43)
[2019-04-21 13:09] LABS: Protime INR 1.51
[2019-04-21 13:20] LABS: Potassium 4.1 mmol/L (3.5-5.1)
--- OUTSIDE RECORDS SUMMARY | 2019-04-22 06:43 | XMS REPORT ---
:1935 [facility] Address [address] [place] [address] Dr. Dickerson [address] [place] [id number] Care Team Providers Name Role Phone Unavailable Unavailable Unavailable Problems This patient has no known problems. Allergies, Adverse Reactions, Alerts This patient has no known allergies or adverse reactions. Medications This patient has no known medications. Encounters Start End Encounter Admission Attending Care Care Encounter Date/Time Date/Time Type Type Clinicians Facility Department ID 2019-01-10 2019-01-10 Inpatient E [facility] MED [id number] 15:16:00 01:33:00
[2019-04-22] MEDS ORDERED: NA CHLORIDE 0.9% 500 ML ONE (06:51)
[2019-04-22 07:01] VITALS: TEMP 97.7
[2019-04-22] MEDS ORDERED: FLUMAZENIL 0.1 MG/ML (5 mL VIAL) IV ONE (07:18)
[2019-04-22] MEDS ORDERED: MIDAZOLAM HCL 5 MG/5 ML INJ ONE (07:19)
[2019-04-22] MEDS ORDERED: ATROPINE SULF 1 MG/10 ML SYR IV ONE (07:19)
[2019-04-22] MEDS ORDERED: MIDAZOLAM HCL 2 MG/2 ML INJ ONE (07:19)
--- NOTE | 2019-04-22 08:17 | PN ---
Mr. Gaytan is 83, has had a very complicated past medical history, including coronary artery disease status post multiple stents in the LAD. He has a history of CVD, hypertension, dyslipidemia, pulmon [place] hypertension, aortic valve disorder, atrial fibrillation that was unresponsive to sotalol. He wa s admitted today for cardioversion and came into the laboratory asst in atrial fibrillation, rate of 70 to 8 0, very irregular rhythm, however, after he received sedation he went into sinus bradycardia at a rat e of 56 and the procedure was aborted. Cardioversion was not done. He has already received some Noemy sed for sedation 5 mg to be specific. We will continue sotalol, continue Eliquis, send him home when he is awake and he will see me in the office in the next 2 weeks. His present heart rate is 56, blo od pressure is 113/61. PEDRO/JAYLEEN Voice ID: [id number] Report ID: [id number]
[2019-04-22 09:38] VITALS: O2SAT 99
[2019-04-22 09:41] VITALS: BP 125/69
--- NOTE | 2019-04-22 11:52 | EKG ---
Test Date: 2019-04-22 Test Time: 07:36:08 Supervisor Capacitor Processing: TATIANNA MEASUREMENT RESULTS: Intervals: Rate: 55 [place]: 168 QRSD: 76 QT: 484 QTc: 463 [place]: P: [place]: 168 QRS: 60 T: 166 INTERPRETIVE STATEMENTS: Sinus bradycardia ST & T wave abnormality, consider lateral ischemia Prolonged QT Abnormal ECG Compared to ECG 03/27/2019 11:25:14 Prolonged QT interval now present Atrial fibrillation no longer present Right-axis deviation no longer present ST (T wave) deviation still present Possible ischemia still present Electronically Signed On 04-22-19 11:51:24 UNIVERSITY REGISTRAR by Pollo Navarro
--- NOTE | 2019-04-22 11:52 | EKG ---
Test Date: 2019-04-22 Test Time: 07:42:03 Structural Test Engineer: TATIANNA MEASUREMENT RESULTS: Intervals: Rate: 56 [place]: QRSD: 80 QT: 472 QTc: 455 [place]: P: [place]: QRS: 64 T: 172 INTERPRETIVE STATEMENTS: Junctional rhythm ST & T wave abnormality, consider inferolateral ischemia Abnormal ECG Compared to ECG 04/22/2019 07:36:08 Junctional rhythm now present Sinus bradycardia no longer present Prolonged QT interval no longer present ST (T wave) deviation still present Possible ischemia still present Electronically Signed On 04-22-19 11:51:23 HEALTH SERVICE WORKER by Pollo Navarro
== END 2019-04-22 09:40 | disposition home or self-care (01) ==
LOC: CCL 06:41
PROC: 5A2204Z Restoration of Cardiac Rhythm, Single (ICD-10-PCS; principal; 2019-04-22)
DX: I48.91 Unspecified atrial fibrillation (principal); I35.9 Nonrheumatic aortic valve disorder, unspecified; I65.23 Occlusion and stenosis of bilateral carotid arteries; I27.0 Primary pulmonary hypertension; I10 Essential (primary) hypertension; E78.5 Hyperlipidemia, unspecified; E78.6 Lipoprotein deficiency; Z88.0 Allergy status to penicillin; Z88.3 Allergy status to other anti-infective agents; Z88.6 Allergy status to analgesic agent; Z82.49 Family history of ischemic heart disease and other diseases of the circulatory system; K21.9 Gastro-esophageal reflux disease without esophagitis
CPT/HCPCS: 93005 ×2; 85025; 80048; 36415; 85610; 85730; 92960; J2250; J7040

== ENCOUNTER 2019-04-27 20:31 | Emergency (ER) | payer OTHER ==
--- OUTSIDE RECORDS SUMMARY | 2019-04-27 20:33 | XMS REPORT ---
:1935 [facility] Address [address] [place] [address] Dr. Dick[address] [place] [id number] Care Team Providers Name Role Phone Unavailable Unavailable Unavailable Problems This patient has no known problems. Allergies, Adverse Reactions, Alerts This patient has no known allergies or adverse reactions. Medications This patient has no known medications. Encounters Start End Encounter Admission Attending Care Care Encounter Date/Time Date/Time Type Type Clinicians Facility Department ID 2019-01-10 2019-01-10 Inpatient E [facility] MED [facility] 15:16:00 01:33:00
[2019-04-27 22:31] LABS: Absolute Lymphocytes (CBC) 0.8 K/uL (0.7-4.9); Basophils % 0.8 % (0-1.3); Hematocrit 37.3 % (39.6-49.0); Protime INR 1.7; RBC Red Blood Cell Count 4.01 M/uL (4.33-5.43)
[2019-04-27 22:45] LABS: Albumin 3.4 g/dL (3.4-5.0); Bilirubin Direct 0.1 mg/dL (0-0.2); Bilirubin Total 0.4 mg/dL (0.2-1.0); Magnesium 2.3 mg/dL (1.8-2.4); Troponin (Emerg Dept Use Only) 0.08 ng/mL (0.0-0.045)
--- NOTE | 2019-04-27 23:11 | RAD REPORT ---
EXAM DESCRIPTION: RAD - Chest Single View - 04/27/2019 9:48 pm CLINICAL HISTORY: DYSPNEA Chest pain. COMPARISON: Chest Single View dated 03/26/2019; Chest Single View dated 05/08/2017; Chest Pa And Lat ( 2 Views) dated 11/17/2015; CHEST PA AND LAT 2 VIEW dated 08/14/2012 FINDINGS: Portable technique limits examination quality. Small left pleural effusion is seen with mild bilateral pulmonary opacities, suspicious for mild pulm onary edema. The heart is moderately enlarged in size. No displaced fractures. IMPRESSION: Mild CHF versus volume overload pattern.
[2019-04-27] MEDS ORDERED: FUROSEMIDE 40 MG/4 ML VIAL ONE (23:31)
[2019-04-27] MEDS ORDERED: FUROSEMIDE 20 MG/ 2ML VIAL ONE (23:31)
--- NOTE | 2019-04-27 23:31 | ER ---
Nurse's Notes [facility] Name: Isiah Gaytan Age: 83 yrs Sex: Male : 1935 Arrival Date: 04/27/2019 Time: 20:32 Bed 5 Private MD: Diagnosis: Acute combined systolic (congestive) and diastolic (congestive) heart failure Presentation: 04/26 21:07 Chief complaint: Patient states: I FELT A SOB AND CHOKING SENSATION COUPLE OF HOURS rv AGO. MY CHEST FEELS TIGHT AND I TOOK ONE DOSE OF NITROGLYCERIN 10MG TABLET ONCE, I FEEL BETTER AFTER THAT, BUT I STILL FEEL THE PRESSURE ON MY HEAD AND THE CHOKING SENSATION. NO SIGNS OF SWELLING IN THE THROAT AND MOUTH. Coronavirus screen: The patient has NOT traveled to [place] in the past 14 days. Proceed with normal triage procedures. The patient has NOT had contact with known and/or suspected case of Coronavirus. Proceed with normal triage procedures. Ebola Screen: No symptoms or risks identified at this time. Initial Sepsis Screen: Does the patient meet any 2 criteria? No. Patient's initial sepsis screen is negative. Does the patient have a suspected source of infection? No. Patient's initial sepsis screen is negative. Risk Assessment: Do you want to hurt yourself or someone else? Patient reports no desire to harm self or others. 21:07 Method Of Arrival: Ambulatory rv 21:07 Acuity: MARIOLA 3 rv 21:23 Onset of symptoms was April 27, 2019 at 18:00. rv Triage Assessment: 21:22 Respiratory: Reports shortness of breath at rest Onset: The symptoms/episode rv began/occurred suddenly, the patient has mild shortness of breath. Historical: - Allergies: 21:20 Azithromycin; rv 21:20 Codeine; rv 21:20 Keflex; rv - PMHx: 21:20 High Cholesterol; Hypertension; Myocardial infarction; rv - PSHx: 21:20 HEAD SURGERY; RIGHT LEG SURGERY; rv - Immunization history:: Adult Immunizations up to date. - Social history:: Smoking status: Patient/guardian denies using tobacco, the patient reports quitting approximately 50 years ago. Screenin:22 Abuse screen: Denies threats or abuse. Denies injuries from another. Nutritional rv screening: No deficits noted. Tuberculosis screening: No symptoms or risk factors identified. Fall Risk None identified. Assessment: 21:21 General: Appears in no apparent distress. comfortable, Behavior is calm, cooperative. rv Pain: Denies pain. Neuro: Level of Consciousness is awake, alert, obeys commands, Oriented to person, place, time, situation. Cardiovascular: Patient's skin is warm and dry. Respiratory: Airway is patent Respiratory effort is even, Breath sounds are clear bilaterally. GI: No signs and/or symptoms were reported involving the gastrointestinal system. Derm: Skin is intact. 22:03 Cardiovascular: Rhythm is atrial fibrillation. rv 23:14 Reassessment: Patient appears in no apparent distress at this time. Patient and/or rv family updated on plan of care and expected duration. Pain level reassessed. Patient is alert, oriented x 3, equal unlabored respirations, skin warm/dry/pink. stated to be feeling better but still complains of orthopnea. updated on the CT scan results. waiting for SONA Goodrich to explained the rest of the test results to the patient. 23:39 Reassessment: KP EXPLAINED THE RESULTS TO THE PATIENT AND THE PLAN OF CARE. GIVEN rv LASIX IV PRIOR TO DISCHARGE. PATIENT UNDERSTOOD AND AGREED. Vital Signs: 21:00 BP 134 / 72; Pulse 54; Resp 18; Pulse Ox 97% on R/A; ea 21:07 BP 154 / 73; Pulse 55; Resp 16; Temp 98.7; Pulse Ox 99% on R/A; Weight 79.38 kg; Height rv 5 ft. 7 in. (170.18 cm); Pain 0/10; 22:00 BP 134 / 75; Pulse 56; Resp 17; Pulse Ox 99% on R/A; ea 22:45 BP 144 / 77; Pulse 55; Resp 18; Pulse Ox 100% ; ea 23:33 BP 147 / 72; Pulse 56; Resp 18; Pulse Ox 99% ; ea 21:07 Body Mass Index 27.41 (79.38 kg, 170.18 cm) rv ED Course: 20:32 Patient arrived in ED. cl3 20:51 Kp Whitfield PA is PHCP. jr8 20:51 Sidney Worley MD is Attending Physician. jr8 21:07 Jb Salazar RN is Primary Nurse. rv 21:19 Triage completed. rv 21:21 Arm band placed on Patient placed Patient notified of wait time. rv 21:23 Patient has correct armband on for positive identification. Placed in gown. Bed in low rv position. Call light in reach. Pulse ox on. NIBP on. 21:48 XRAY Chest (1 view) In Process Unspecified. EDMS 21:53 CT Head Brain wo Cont In Process Unspecified. EDMS 22:03 Initial lab(s) drawn, by me, sent to lab. Inserted saline lock: 20 gauge in right rv antecubital area, using aseptic technique. Blood collected. 23:31 Pollo Navarro MD is Referral Physician. jr8 23:33 No provider procedures requiring assistance completed. IV discontinued, intact, ea bleeding controlled, No redness/swelling at site. Pressure dressing applied. Administered Medications: 23:33 Drug: Lasix 60 mg Route: IVP; Site: right antecubital; ea 23:33 Follow up: Response: No adverse reaction; Medication administered at discharge. ea Output: 23:42 Urine: 700ml (Voided); Total: 700ml. rv 04/27 00:01 Urine: 450ml (Voided); Total: 1150ml. rv Outcome: 04/26 23:31 Discharge ordered by . jr8 23:41 Discharged to home ambulatory, with family. rv 23:41 Condition: good 23:41 Discharge instructions given to patient, Instructed on discharge instructions, follow up and referral plans. Demonstrated understanding of instructions, follow-up care. 04/27 00:01 Patient left the ED. rv Signatures: Dispatcher [employer] EDMS Kp Whitfield PA PA jr8 Amarilis Perez RN RN ea Vicente, Ronaldo RN Aaron Robison cl3
--- NOTE | 2019-04-27 23:31 | EDPHYS ---
Physician Documentation [facility] Name: Isiah Gaytan Age: 83 yrs Sex: Male : 1935 Arrival Date: 04/27/2019 Time: 20:32 Bed 5 Private MD: ED Physician Sidney Worley HPI: 04/26 21:49 This 83 yrs old Male presents to ER via Ambulatory with complaints of jr8 Shortness Of Breath. 21:49 The patient has shortness of breath at rest. Onset: The symptoms/episode began/occurred jr8 acutely, today. Duration: The symptoms are continuous. The patient's shortness of breath has no apparent modifying factors. Associated signs and symptoms: The patient has no apparent associated signs or symptoms. Severity of symptoms: At their worst the symptoms were mild in the emergency department the symptoms have resolved. The patient has not experienced similar symptoms in the past. The patient has not recently seen a physician. Patient stated that he started to feel like his breathing was constricted around upper chest and neck region. Stated that when he would tilt his head forward, felt as if his head was going to pop off. Historical: - Allergies: 21:20 Azithromycin; rv 21:20 Codeine; rv 21:20 Keflex; rv - PMHx: 21:20 High Cholesterol; Hypertension; Myocardial infarction; rv - PSHx: 21:20 HEAD SURGERY; RIGHT LEG SURGERY; rv - Immunization history:: Adult Immunizations up to date. - Social history:: Smoking status: Patient/guardian denies using tobacco, the patient reports quitting approximately 50 years ago. ROS: 21:49 Eyes: Negative for injury, pain, redness, and discharge, ENT: Negative for injury, jr8 pain, and discharge, Neck: Negative for injury, pain, and swelling, Cardiovascular: Negative for chest pain, palpitations, and edema, Abdomen/GI: Negative for abdominal pain, nausea, vomiting, diarrhea, and constipation, Back: Negative for injury and pain, MS/Extremity: Negative for injury and deformity, Skin: Negative for injury, rash, and discoloration. 21:49 Respiratory: Positive for shortness of breath, Negative for cough, dyspnea on exertion, hemoptysis, orthopnea, pleurisy, sputum production, wheezing. 21:49 Neuro: Positive for headache, Negative for altered mental status, dizziness, gait disturbance, numbness, seizure activity, speech changes, syncope, tingling, tinnitus, tremor, visual changes, weakness. Exam: 21:49 Eyes: Pupils equal round and reactive to light, extra-ocular motions intact. Lids and jr8 lashes normal. Conjunctiva and sclera are non-icteric and not injected. Cornea within normal limits. Periorbital areas with no swelling, redness, or edema. ENT: Nares patent. No nasal discharge, no septal abnormalities noted. Tympanic membranes are normal and external auditory canals are clear. Oropharynx with no redness, swelling, or masses, exudates, or evidence of obstruction, uvula midline. Mucous membranes moist. Neck: Trachea midline, no thyromegaly or masses palpated, and no cervical lymphadenopathy. Supple, full range of motion without nuchal rigidity, or vertebral point tenderness. No Meningismus. No carotid bruit noted. No stridor auscultated Cardiovascular: Regular rate and rhythm with a normal S1 and S2. No gallops, murmurs, or rubs. Normal PMI, no JVD. No pulse deficits. Respiratory: Lungs have equal breath sounds bilaterally, clear to auscultation and percussion. No rales, rhonchi or wheezes noted. No increased work of breathing, no retractions or nasal flaring. Abdomen/GI: Soft, non-tender, with normal bowel sounds. No distension or tympany. No guarding or rebound. No evidence of tenderness throughout. Back: No spinal tenderness. No costovertebral tenderness. Full range of motion. Skin: Warm, dry with normal turgor. Normal color with no rashes, no lesions, and no evidence of cellulitis. MS/ Extremity: Pulses equal, no cyanosis. Neurovascular intact. Full, normal range of motion. Neuro: Awake and alert, GCS 15, oriented to person, place, time, and situation. Cranial nerves II-XII grossly intact. Motor strength 5/5 in all extremities. Sensory grossly intact. Cerebellar exam normal. Normal gait. Vital Signs: 21:00 BP 134 / 72; Pulse 54; Resp 18; Pulse Ox 97% on R/A; ea 21:07 BP 154 / 73; Pulse 55; Resp 16; Temp 98.7; Pulse Ox 99% on R/A; Weight 79.38 kg; Height rv 5 ft. 7 in. (170.18 cm); Pain 0/10; 22:00 BP 134 / 75; Pulse 56; Resp 17; Pulse Ox 99% on R/A; ea 22:45 BP 144 / 77; Pulse 55; Resp 18; Pulse Ox 100% ; ea 23:33 BP 147 / 72; Pulse 56; Resp 18; Pulse Ox 99% ; ea 21:07 Body Mass Index 27.41 (79.38 kg, 170.18 cm) rv MDM: 20:59 Patient medically screened. jr8 23:28 Data reviewed: vital signs, nurses notes, lab test result(s), EKG, radiologic studies, jr8 plain films. Data interpreted: Pulse oximetry: on room air is 100 %. Interpretation: normal. 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 ED course: Patient feeling much better. Diuresed patient in ED. Explained to him that his shortness of breath was most likely related to his CHF. Albeit mild currently, can still cause what he was feeling. Patient was recently admitted for same problem and did agree that it feels similar. Reviewed old labs and compared with today. Similar in nature. Breathing well at this time. No need for admission currently. Knows to come back if worse. Otherwise will call Dr. Navarro for earlier appointment tomorrow . 04/26 21:16 Order name: Basic Metabolic Panel; Complete Time: 23:00 04/26 21:16 Order name: CBC with Diff; Complete Time: 23:00 04/26 21:16 Order name: LFT's; Complete Time: 23:00 04/26 21:16 Order name: Magnesium; Complete Time: :04/26 21:16 Order name: NT PRO-BNP; Complete Time: 23:00 04/26 21:16 Order name: PT-INR; Complete Time: 23:00 8 04/26 21:16 Order name: Troponin (emerg Dept Use Only); Complete Time: 23:04/26 21:16 Order name: XRAY Chest (1 view); Complete Time: 23:18 04/26 21:16 Order name: EKG; Complete Time: 21:16 04/26 21:16 Order name: Cardiac monitoring; Complete Time: 21:58 04/26 21:16 Order name: EKG - Nurse/Tech; Complete Time: 21:58 04/26 21:16 Order name: IV Saline Lock; Complete Time: 21:58 04/26 21:16 Order name: CT Head Brain wo Cont 04/26 21:16 Order name: Labs collected and sent; Complete Time: :58 04/26 21:16 Order name: O2 Per Protocol; Complete Time: :58 04/26 21:16 Order name: O2 Sat Monitoring; Complete Time: :58 Administered Medications: 23:33 Drug: Lasix 60 mg Route: IVP; Site: right antecubital; ea 23:33 Follow up: Response: No adverse reaction; Medication administered at discharge. angelic Disposition: 04/27 01:05 Co-signature as Attending Physician, Sidney Worley MD. [place] Disposition: 04/27/19 23:31 Discharged to Home. Impression: Acute combined systolic (congestive) and diastolic (congestive) heart failure. - Condition is Stable. - Discharge Instructions: Heart Failure. - Medication Reconciliation Form, Thank You Letter, Antibiotic Education, Prescription Opioid Use form. - Follow up: Pollo Navarro MD; When: 24 Hours; Reason: Recheck today's complaints, Continuance of care, Re-evaluation by your physician. - Problem is new. - Symptoms are resolved. Signatures: Dispatcher [employer] EDSidney Sawyer MD MD pkl Roszak, Josh, PA PA jr8 Amarilis Perez RN RN ea Vicente, Ronaldo, RN RN rv Corrections: (The following items were deleted from the chart) 00:01 04/26 23:31 04/27/2019 23:31 Discharged to Home. Impression: Acute combined systolic rv (congestive) and diastolic (congestive) heart failure. Condition is Stable. Forms are Medication Reconciliation Form, Thank You Letter, Antibiotic Education, Prescription Opioid Use. Follow up: Pollo Navarro; When: 24 Hours; Reason: Recheck today's complaints, Continuance of care, Re-evaluation by your physician. Problem is new. Symptoms are resolved. jr8
[2019-04-28 00:34] VITALS: TEMP 98.7
[2019-04-28 00:38] VITALS: BP 147/72; O2SAT 99
--- NOTE | 2019-04-28 12:43 | RAD REPORT ---
EXAM DESCRIPTION: CT HEAD WITHOUT IV CONTRAST CLINICAL HISTORY: Hemiplegia. COMPARISON: 12/16/2016 TECHNIQUE: CT scan of the brain without IV contrast. This exam was performed according to our depa rtmental dose-optimization program, which includes automated exposure control, adjustment of the mA a nd/or kV according to patient size and/or use of iterative reconstruction technique. FINDINGS: There are scattered areas of hypoattenuation within the periventricular white matter, whic h likely represent chronic microvascular ischemia. No evidence of acute infarction, intracranial hemo rrhage, extra-axial fluid collection, or midline shift. No air-fluid levels are seen in the paranasal sinuses to suggest acute sinusitis. No depressed skull fracture. There are multiple tiny foreign bod ies within the soft tissues overlying the right temporal bone. IMPRESSION: No acute intracranial findings. Electronically signed by: Rogelio Montes MD 04/27/2019 9:58 PM REPRODUCTION ARTIST Due to temporary technical issues with the PACS/Fluency reporting system, reports are being signed by the in house radiologist as a courtesy to ensure prompt reporting. The interpreting radiologist is f ully responsible for the content of the report.
--- NOTE | 2019-04-28 15:33 | EKG ---
Test Date: 2019-04-27 Test Time: 21:53:33 El Teacher: RV MEASUREMENT RESULTS: Intervals: Rate: 56 MN: QRSD: 78 QT: 434 QTc: 418 [place]: P: MN: QRS: 48 T: 169 INTERPRETIVE STATEMENTS: Atrial fibrillation with slow ventricular response ST & T wave abnormality, consider lateral ischemia Abnormal ECG Compared to ECG 04/22/2019 07:42:03 Junctional rhythm no longer present ST (T wave) deviation still present Possible ischemia still present Electronically Signed On 04-28-19 15:32:42 INFANT TODDLER LEAD TEACHER by Mitesh Rangel
== END 2019-04-28 00:01 | disposition home or self-care (01) ==
LOC: ER 20:31
DX: I50.41 Acute combined systolic (congestive) and diastolic (congestive) heart failure (principal); Z88.6 Allergy status to analgesic agent; Z88.3 Allergy status to other anti-infective agents
CPT/HCPCS: 93005; 85025; 80048; 36415; 83735; 85610; 80076; 84484; 83880; 70450; 71045; 96374; 99284; J1940 ×2

== ENCOUNTER 2019-06-13 20:21 | Emergency (ER) | payer OTHER ==
--- OUTSIDE RECORDS SUMMARY | 2019-06-13 20:23 | XMS REPORT ---
:1935 Author Organization [facility] Address [address] [place] [address] Dr. Dickerson [address] [place] [id number] Care Team Providers Name Role Phone Unavailable [...]
[2019-06-13 21:49] LABS: Absolute Lymphocytes (CBC) 0.8 K/uL (0.7-4.9); Basophils % 0.6 % (0-1.3); Hematocrit 40.2 % (39.6-49.0); Lymphocytes % 20.6 % (15.3-44.8); MPV 9.2 fL (7.6-11.3)
[2019-06-13 21:51] LABS: Protime INR 2.56
[2019-06-13 22:04] LABS: Albumin 3.3 g/dL (3.4-5.0); Bilirubin Direct 0.1 mg/dL (0-0.2); Bilirubin Total 0.4 mg/dL (0.2-1.0); Magnesium 2.3 mg/dL (1.8-2.4); Potassium 4.2 mmol/L (3.5-5.1); Protein, Total 7.1 g/dL (6.4-8.2); Troponin (Emerg Dept Use Only) 0.09 ng/mL (0.0-0.045)
[2019-06-13] MEDS ORDERED: FUROSEMIDE 40 MG/4 ML VIAL ONE (22:29)
[2019-06-13] MEDS ORDERED: ASPIRIN 81 MG CHEWABLE TABLET ONE (22:29)
--- NOTE | 2019-06-13 23:20 | EDPHYS ---
Physician Documentation [facility] Name: Isiah Gaytan Age: 83 yrs Sex: Male : 1935 Arrival Date: 06/13/2019 Time: 20:23 Bed 19 Private MD: ED Physician Conrad Veras HPI: 06/12 21:00 This 83 yrs old Male presents to ER via Wheelchair with complaints of cp Shortness Of Breath. 21:00 The patient has shortness of breath with light activity, and when sitting forward. cp 21:00 Onset: The symptoms/episode began/occurred gradually, and became worse 2 day(s) ago. cp Duration: The symptoms are continuous, and are steadily getting worse. 21:00 Patient reports not taking prescribed diuretic for past 2 days. cp 21:00 Associated signs and symptoms: Pertinent negatives: chest pain, productive cough, cp diaphoresis, dizziness, fever, hemoptysis. Historical: - Allergies: 20:36 Azithromycin; ca1 20:36 Codeine; ca1 20:36 Keflex; ca1 - Home Meds: 20:36 Eliquis oral oral [Active]; sotalol Oral [Active]; Tramadol Oral [Active]; ca1 - PMHx: 20:36 High Cholesterol; Hypertension; Myocardial infarction; ca1 - PSHx: 20:36 HEAD SURGERY; RIGHT LEG SURGERY; ca1 - Immunization history:: Adult Immunizations not up to date, Pneumococcal vaccine is not up to date, Flu vaccine is not up to date. - Social history:: Smoking status: Patient denies any tobacco usage or history of. ROS: 21:05 Constitutional: Negative for body aches, chills, fever, poor PO intake. cp 21:05 Eyes: Negative for injury, pain, redness, and discharge. cp 21:05 ENT: Negative for drainage from ear(s), ear pain, sore throat, difficulty swallowing, cp difficulty handling secretions. 21:05 Cardiovascular: Positive for edema, Negative for chest pain, palpitations. 21:05 Respiratory: Positive for shortness of breath, on exertion. Negative for cough, wheezing. 21:05 Abdomen/GI: Negative for abdominal pain, nausea, vomiting, and diarrhea. 21:05 Neuro: Negative for altered mental status, headache, weakness. 21:05 All other systems are negative. Exam: 21:10 Constitutional: The patient appears in no acute distress, alert, awake, cp non-diaphoretic, non-toxic, well developed, well nourished. 21:10 Head/Face: Normocephalic, atraumatic. cp 21:10 Eyes: Periorbital structures: appear normal, Conjunctiva: normal, no exudate, no injection, Lids and lashes: appear normal, bilaterally. 21:10 ENT: External ear(s): are unremarkable, Nose: is normal, Mouth: is normal, Posterior pharynx: Airway: no evidence of obstruction, patent. 21:10 Neck: ROM/movement: is normal, is supple, without pain, no range of motions limitations, no meningismus. 21:10 Chest/axilla: Inspection: normal, Palpation: is normal, no crepitus, no tenderness. 21:10 Cardiovascular: Rate: normal, Rhythm: regular, Edema: ankle edema, that is mild, JVD: is not appreciated. 21:10 Respiratory: the patient does not display signs of respiratory distress, Respirations: normal, no use of accessory muscles, no retractions, labored breathing, is not present, Breath sounds: are clear throughout. 21:10 Abdomen/GI: Inspection: abdomen appears normal, Palpation: abdomen is soft and cp non-tender, in all quadrants. 21:10 Back: pain, is absent, ROM is normal. cp 21:10 Skin: no rash present. 21:10 Neuro: Orientation: to person, place \T\ time. Mentation: is normal, Cerebellar function: is grossly normal, Motor: moves all fours, strength is normal, Sensation: is normal. 21:30 ECG was reviewed by the Attending Physician. cp Vital Signs: 20:29 BP 166 / 76; Pulse 78; Resp 18 S; Temp 97.8(TE); Pulse Ox 97% on R/A; Weight 78.47 kg ca1 (R); Height 5 ft. 7 in. (170.18 cm) (R); Pain 0/10; 22:15 BP 143 / 69; Pulse 53; Resp 18; Pulse Ox 98% on R/A; mg2 23:50 BP 162 / 78; Pulse 53; Resp 18; Pulse Ox 98% on R/A; rv 20:29 Body Mass Index 27.10 (78.47 kg, 170.18 cm) ca1 MDM: 21:02 Patient medically screened. cp 22:00 Differential diagnosis: CHF exacerbation, Chronic Obstructive Pulmonary Disease cp pneumonia, Pneumothorax pulmonary edema, Pulmonary Embolism Unstable Angina. 22:25 Data reviewed: vital signs, nurses notes, lab test result(s), EKG, radiologic studies, cp plain films, I have discussed the patient's presentation/case with the attending Emergency Department Physician;. 22:25 Response to treatment: the patient's symptoms have markedly improved after treatment, cp and as a result, I will discharge patient. ED course: VSS. Patient reports symptoms improved. No hypoxia observed and patient not requiring supplemental oxygen while being monitored. No signs respiratory distress. Will discharge to home. 06/12 21:01 Order name: Basic Metabolic Panel; Complete Time: 22:16 06/12 22:16 Interpretation: Normal except: CL 110; GLUC 108; BUN 19; GFR 79. 06/12 21:01 Order name: CBC with Diff; Complete Time: 22:16 06/12 22:16 Interpretation: Normal except: WBC 4.1; RBC 4.30; HGB 13.1; PLT 140; RDW 16.0. 06/12 21:01 Order name: LFT's; Complete Time: 22:16 06/12 22:22 Interpretation: Normal except: ALK 127; ALB 3.3; GLOB 3.8; A/G 0.9. 06/12 21:01 Order name: Magnesium; Complete Time: 22:16 06/12 21:01 Order name: NT PRO-BNP; Complete Time: 22:16 06/12 22:22 Interpretation: Abnormal: NT PRO-BNP 38613. 06/12 21:01 Order name: PT-INR; Complete Time: 22:16 06/12 21:01 Order name: Troponin (emerg Dept Use Only); Complete Time: 22:16 06/12 22:16 Interpretation: Abnormal: TROPED 0.09. 06/12 21:01 Order name: XRAY Chest (1 view) 06/12 21:01 Order name: EKG; Complete Time: 21:06 06/12 21:01 Order name: Cardiac monitoring; Complete Time: 21:23 06/12 21:01 Order name: COVID-19 06/12 21:01 Order name: Influenza Screen (a \T\ B); Complete Time: 22:16 cp 06/12 21:01 Order name: EKG - Nurse/Tech; Complete Time: 21:23 cp 06/12 21: Order name: IV Saline Lock; Complete Time: 21:37 cp 06/12 21: Order name: Labs collected and sent; Complete Time: 21:37 cp 06/12 21: Order name: O2 Per Protocol; Complete Time: :23 cp 06/12 21: Order name: O2 Sat Monitoring; Complete Time: 21:23 cp EC:30 Rate is 55 beats/min. Rhythm is regular. QRS interval is normal. QT interval is normal. cp T waves are Flattened in leads I, aVL. Interpreted by me. Reviewed by me. Administered Medications: 22:40 Drug: Lasix 40 mg Route: IVP; Site: right forearm; mg2 23:40 Follow up: Response: No adverse reaction; Marked relief of symptoms mg2 22:40 Drug: Aspirin Chewable Tablet 324 mg Route: PO; mg2 23:40 Follow up: Response: No adverse reaction mg2 Disposition: 06/13 00:06 Co-signature as Attending Physician, Conrad Veras MD I agree with the assessment and tw4 plan of care. Disposition: 06/13/19 23:19 Discharged to Home. Impression: Acute on chronic combined systolic (congestive) and diastolic (congestive) heart failure, Patient's other noncompliance with medication regimen. - Condition is Stable. - Discharge Instructions: Heart Failure. - Medication Reconciliation Form, Thank You Letter, Antibiotic Education, Prescription Opioid Use form. - Follow up: Private Physician; When: 2 - 3 days; Reason: Recheck today's complaints. - Problem is an acute exacerbation. - Symptoms have improved. Signatures: Dispatcher [employer] EDMS Kevin Mortaaya PA PA cp Wadley, Terrence, MD MD tw4 Louis Galvan RN RN mg2 Jb Salazar RN RN rv Prerna Bowen RN RN ca1 Corrections: (The following items were deleted from the chart) 06/12 21:25 06/11 21:05 Constitutional: Negative for body aches, chills, fever, poor PO intake, cp cp 06/12 21:25 06/11 21:05 Cardiovascular: Positive for edema, Negative for chest pain, palpitations, cp cp 06/12 20:25 06/11 21:05 Respiratory: Positive for shortness of breath, Negative for sputum cp production, wheezing, cp 06/12 20:25 06/11 21:05 Abdomen/GI: Negative for abdominal pain, nausea, vomiting, and diarrhea, cp black/tarry stool, rectal bleeding, cp 06/12 21:25 04 21:05 Eyes: Negative for injury, pain, redness, and discharge, cp cp 06/12 20:06/11 21:05 ENT: Negative for drainage from ear(s), ear pain, sore throat, difficulty cp swallowing, difficulty handling secretions, cp 06/12 20:25 04 21:05 Back: Negative for radiated pain, cp cp 06/12 20:06/11 21:05 Neuro: Negative for altered mental status, headache, syncope, weakness, cp cp 06/12 20:25 04 21:05 All other systems are negative, cp cp 06/12 23:20 23:19 06/13/2019 23:19 Discharged to Home. Impression: Unspecified combined systolic cp (congestive) and diastolic (congestive) heart failure. Condition is Stable. Forms are Medication Reconciliation Form, Thank You Letter, Antibiotic Education, Prescription Opioid Use. Follow up: Private Physician; When: 2 - 3 days; Reason: Recheck today's complaints. Problem is an acute exacerbation. Symptoms have improved. cp 23:51 23:20 06/13/2019 23:19 Discharged to Home. Impression: Acute on chronic combined rv systolic (congestive) and diastolic (congestive) heart failure; Patient's other noncompliance with medication regimen. Condition is Stable. Forms are Medication Reconciliation Form, Thank You Letter, Antibiotic Education, Prescription Opioid Use. Follow up: Private Physician; When: 2 - 3 days; Reason: Recheck today's complaints. Problem is an acute exacerbation. Symptoms have improved. cp
--- NOTE | 2019-06-13 23:20 | ER ---
Nurse's Notes [facility] Name: Isiah Gaytan Age: 83 yrs Sex: Male : 1935 Arrival Date: 06/13/2019 Time: 20:23 Bed 19 Private MD: Diagnosis: Acute on chronic combined systolic (congestive) and diastolic (congestive) heart failure;Patient's other noncompliance with medication regimen Presentation: 06/12 20:29 Chief complaint: Patient states: SOB with exertion on and off for about a month, worse ca1 in the past few days. Denies cough and fever. Reports swelling on both lower extremities. Reports not taking diuretics for 2 days now. Coronavirus screen: Proceed with normal triage. Patient denies a cough. Patient reports shortness of breath or difficulty breathing. Patient denies measured and/or subjective temperature greater than 100.4F prior to today's visit. Patient denies travel on a cruise ship or to a country the [facility] currently lists as an affected area. Patient denies contact with known and/or suspected case of COVID-19. Ebola Screen: Patient negative for fever greater than or equal to 101.5 degrees Fahrenheit, and additional compatible Ebola Virus Disease symptoms Patient denies exposure to infectious person. Patient denies travel to an Ebola-affected area in the 21 days before illness onset. No symptoms or risks identified at this time. Initial Sepsis Screen: Does the patient meet any 2 criteria? No. Patient's initial sepsis screen is negative. Does the patient have a suspected source of infection? No. Patient's initial sepsis screen is negative. Risk Assessment: Do you want to hurt yourself or someone else? Patient reports no desire to harm self or others. Onset of symptoms was June 13, 2019. 20:29 Method Of Arrival: Wheelchair ca1 20:29 Acuity: MARIOLA 3 ca1 Triage Assessment: 21:34 General: Appears in no apparent distress. comfortable. Respiratory: Onset: The mg2 symptoms/episode began/occurred gradually, the patient has mild shortness of breath. Historical: - Allergies: 20:36 Azithromycin; ca1 20:36 Codeine; ca1 20:36 Keflex; ca1 - Home Meds: 20:36 Eliquis oral oral [Active]; sotalol Oral [Active]; Tramadol Oral [Active]; ca1 - PMHx: 20:36 High Cholesterol; Hypertension; Myocardial infarction; ca1 - PSHx: 20:36 HEAD SURGERY; RIGHT LEG SURGERY; ca1 - Immunization history:: Adult Immunizations not up to date, Pneumococcal vaccine is not up to date, Flu vaccine is not up to date. - Social history:: Smoking status: Patient denies any tobacco usage or history of. Screenin:34 Abuse screen: Denies threats or abuse. Denies injuries from another. Nutritional mg2 screening: No deficits noted. Tuberculosis screening: No symptoms or risk factors identified. Fall Risk IV access (20 points). Assessment: 21:33 General: Appears in no apparent distress. comfortable, Behavior is calm, cooperative. mg2 Pain: Denies pain. Neuro: Level of Consciousness is awake, alert, obeys commands, Oriented to person, place, time, situation. Cardiovascular: Capillary refill < 3 seconds Patient's skin is warm and dry. Rhythm is sinus rhythm. Respiratory: Reports shortness of breath since 1 month Airway is patent Respiratory effort is even, unlabored, Breath sounds are clear bilaterally. in mediastinum, right upper lobe, left upper lobe, right middle lobe, left lower lobe and right lower lobe. GI: No signs and/or symptoms were reported involving the gastrointestinal system. : No signs and/or symptoms were reported regarding the genitourinary system. EENT: Derm: Skin is intact, is healthy with good turgor, Skin is pink, warm \T\ dry. normal. Musculoskeletal: Circulation, motion, and sensation intact. Capillary refill < 3 seconds. 22:42 Reassessment: Patient appears in no apparent distress at this time. Patient and/or mg2 family updated on plan of care and expected duration. Pain level reassessed. Patient is alert, oriented x 3, equal unlabored respirations, skin warm/dry/pink. 23:50 Reassessment: Patient appears in no apparent distress at this time. Patient states rv feeling better. Patient states symptoms have improved. 06/13 14:01 Reassessment: ABBIE # [id number]. aa5 Vital Signs: 06/12 20:29 BP 166 / 76; Pulse 78; Resp 18 S; Temp 97.8(TE); Pulse Ox 97% on R/A; Weight 78.47 kg ca1 (R); Height 5 ft. 7 in. (170.18 cm) (R); Pain 0/10; 22:15 BP 143 / 69; Pulse 53; Resp 18; Pulse Ox 98% on R/A; mg2 23:50 BP 162 / 78; Pulse 53; Resp 18; Pulse Ox 98% on R/A; rv 20:29 Body Mass Index 27.10 (78.47 kg, 170.18 cm) ca1 ED Course: 09:25 Initial lab(s) drawn, by me, sent to lab. EKG done, by ED staff, reviewed by Kevin MAGALLANES Flu and/or RSV swab sent to lab. covid 19. Inserted saline lock: 20 gauge in right forearm, using aseptic technique. Blood collected. 20:23 Patient arrived in ED. ds1 20:32 Triage completed. ca1 20:36 Arm band placed on right wrist. ca1 20:47 Kevin Morataya PA is PHCP. cp 20:47 Conrad Veras MD is Attending Physician. cp 21:00 Louis Galvan, KATELYNN is Primary Nurse. mg2 21:32 No provider procedures requiring assistance completed. mg2 21:34 Patient has correct armband on for positive identification. ekg monitor tech on. Pulse mg2 ox on. NIBP on. Door closed. Warm blanket given. 21:37 XRAY Chest (1 view) In Process Unspecified. EDMS 23:50 IV discontinued, intact, bleeding controlled, No redness/swelling at site. Pressure rv dressing applied. Administered Medications: 22:40 Drug: Lasix 40 mg Route: IVP; Site: right forearm; mg2 23:40 Follow up: Response: No adverse reaction; Marked relief of symptoms mg2 22:40 Drug: Aspirin Chewable Tablet 324 mg Route: PO; mg2 23:40 Follow up: Response: No adverse reaction mg2 Output: 23:50 Urine: 1500ml (Voided); Total: 1500ml. mg2 Outcome: 23:19 Discharge ordered by MD. cp 23:50 Discharged to home via wheelchair. rv 23:50 Condition: stable 23:50 Discharge instructions given to patient, Instructed on discharge instructions, follow up and referral plans. Demonstrated understanding of instructions, follow-up care. 23:51 Patient left the ED. rv Addendum: 06/16/2019 18:33 Addendum: Other Pt notified of negative COVID swab results, advised continue to monitor h b symptoms, to remain in isolation until fever free for 72 hours without medication or at least 7 days from onset, and to return to the ED if symptoms worsen. Signatures: Dispatcher [employer] EDWY Lauren Gonzales ds1 Tabitha Alanis, RN RN aa5 Kevin Morataya PA PA cp Baxter, Heather, RN RN hb Louis Galvan, RN RN mg2 Jb Salazar RN RN rv AcPrerna rodriguez RN RN ca1
[2019-06-14 00:22] VITALS: TEMP 97.8
[2019-06-14 00:23] VITALS: O2SAT 98
[2019-06-14 00:25] VITALS: BP 162/78
--- NOTE | 2019-06-14 11:59 | RAD REPORT ---
EXAM DESCRIPTION: RAD - Chest Single View - 06/13/2019 9:37 pm CLINICAL HISTORY: SOB Chest pain. COMPARISON: Chest Single View dated 04/27/2019; Chest Single View dated 03/26/2019; Chest Single View d ated 05/08/2017; Chest Pa And Lat (2 Views) dated 11/17/2015 FINDINGS: Portable technique limits examination quality. Mild interstitial pulmonary edema. The heart is moderately enlarged. Small left pleural effusion. IMPRESSION: Stable findings of mild CHF.
--- NOTE | 2019-06-15 07:41 | EKG ---
Test Date: 2019-06-13 Test Time: 21:24:16 [employer] Equipment Tender: MEASUREMENT RESULTS: Intervals: Rate: 55 OK: QRSD: 78 QT: 454 QTc: 434 [place]: P: OK: QRS: 114 T: 191 INTERPRETIVE STATEMENTS: Junctional rhythm Left posterior fascicular block Cannot rule out Anterior infarct, age undetermined ST & T wave abnormality, consider lateral ischemia Abnormal ECG Compared to ECG 04/27/2019 21:53:33 Junctional rhythm now present Left posterior fascicular block now present Myocardial infarct finding now present Atrial fibrillation no longer present ST (T wave) deviation still present Possible ischemia still present Electronically Signed On 06-15-19 07:39:11 CDT by Pollo Navarro
== END 2019-06-13 23:51 | disposition home or self-care (01) ==
LOC: ER 20:21
DX: I50.43 Acute on chronic combined systolic (congestive) and diastolic (congestive) heart failure (principal); Z91.14 Patient's other noncompliance with medication regimen; Z03.818 Encounter for observation for suspected exposure to other biological agents ruled out; I10 Essential (primary) hypertension; E78.00 Pure hypercholesterolemia, unspecified; Z79.02 Long term (current) use of antithrombotics/antiplatelets; Z88.1 Allergy status to other antibiotic agents; Z88.5 Allergy status to narcotic agent
CPT/HCPCS: 93005; 85025; 80048; 36415; 83735; 85610; 80076; 84484; 83880; 87804 ×2; 71045; 96374; 99284; U0001; J1940

== ENCOUNTER 2019-06-22 14:47 | Observation (INO) | payer OTHER ==
--- OUTSIDE RECORDS SUMMARY | 2019-06-22 14:49 | XMS REPORT ---
:1935 [address] [facility] Address [address] [place] [address] Dr. Dickerson [address] [place] [id number] Care Team Providers Name Role Phone Unavailable [...]
[2019-06-22 15:02] LABS: Urine Blood NEGATIVE (NEG); Urine Glucose NEGATIVE (NEG); Urine Protein NEGATIVE (NEG); Urine pH 6.5 (5.0-7.0)
[2019-06-22] MEDS ORDERED: NA CHLORIDE 0.9% 1,000 ML ONE (15:13)
--- NOTE | 2019-06-22 15:44 | RAD REPORT ---
EXAM DESCRIPTION: CT - Head Brain Wo Cont - 06/22/2019 3:30 pm CLINICAL HISTORY: DIZZINESS COMPARISON: Head Brain Wo Cont dated 04/27/2019 TECHNIQUE: Axial 5 mm thick images of the head were obtained without IV contrast. All CT scans are performed using dose optimization technique as appropriate and may include automated exposure control or mA/KV adjustment according to patient size. FINDINGS: No intracranial hemorrhage, mass, edema or shift of mid-line structures. No acute infarcti on changes seen. No cortical edema or sulcal effacement. Mild to moderate atrophy and moderate chroni c ischemic changes are present. Ventricles are in proportion. Intracranial findings are similar to mparison. Mastoid air cells and visualized portions of the paranasal sinuses are clear. No acute bony findings. IMPRESSION: No acute intracranial finding identifiable. Atrophy and chronic ischemic change similar to April examination.
[2019-06-22 15:59] LABS: Basophils % 0.6 % (0-1.3); Lymphocytes % 22.3 % (15.3-44.8); MPV 8.5 fL (7.6-11.3); RBC Red Blood Cell Count 4.44 M/uL (4.33-5.43)
[2019-06-22 16:13] LABS: Albumin 3.4 g/dL (3.4-5.0); Bilirubin Direct 0.2 mg/dL (0-0.2); Bilirubin Total 0.3 mg/dL (0.2-1.0); Magnesium 2.5 mg/dL (1.8-2.4); Potassium 4.5 mmol/L (3.5-5.1); Protein, Total 7.4 g/dL (6.4-8.2); Thyroid Stimulating Hormone 2.8 uIU/mL (0.360-3.740); Troponin (Emerg Dept Use Only) 0.09 ng/mL (0.0-0.045)
--- NOTE | 2019-06-22 16:52 | ER ---
Nurse's Notes [facility] Name: Isiah Gaytan Age: 83 yrs Sex: Male : 1935 Arrival Date: 06/22/2019 Time: 14:51 Bed 2 Private MD: Diagnosis: Atrial fibrillation and flutter-BRADYCARDIA;Essential (primary) hypertension;Syncope and collapse-near;Dyspnea;Unspecified combined systolic (congestive) and diastolic (congestive) heart failure Presentation: 06/21 14:51 Chief complaint: EMS states: called out for dizziness that started about 1 hour ago, hx em of AFIB, BGL 107 on scene, states symptoms have resolved, denies PETERS or chest pain. Coronavirus screen: Proceed with normal triage. Patient denies a cough. Patient denies shortness of breath or difficulty breathing. Patient denies measured and/or subjective temperature greater than 100.4F prior to today's visit. Patient denies travel on a cruise ship or to a country the [facility] currently lists as an affected area. Patient denies contact with known and/or suspected case of COVID-19. Ebola Screen: Patient negative for fever greater than or equal to 101.5 degrees Fahrenheit, and additional compatible Ebola Virus Disease symptoms Patient denies exposure to infectious person. Patient denies travel to an Ebola-affected area in the 21 days before illness onset. No symptoms or risks identified at this time. Initial Sepsis Screen: Does the patient meet any 2 criteria? No. Patient's initial sepsis screen is negative. Does the patient have a suspected source of infection? No. Patient's initial sepsis screen is negative. Risk Assessment: Do you want to hurt yourself or someone else? Patient reports no desire to harm self or others. Onset of symptoms was June 22, 2019 at 14:00. 14:51 Method Of Arrival: EMS: [facility] em 14:51 Acuity: MARIOLA 3 em Historical: - Allergies: 14:55 Azithromycin; em 14:55 Codeine; em 14:55 Keflex; em - Home Meds: 14:55 aspirin 81 mg Oral chew 1 tab once daily [Active]; Eliquis Oral [Active]; atorvastatin em Oral [Active]; sotalol Oral [Active]; Tramadol Oral [Active]; - PMHx: 14:55 High Cholesterol; Hypertension; Myocardial infarction; em - PSHx: 14:55 HEAD SURGERY; RIGHT LEG SURGERY; em - Immunization history:: Adult Immunizations up to date. - Social history:: Smoking status: Patient denies any tobacco usage or history of. - Family history:: not pertinent. Screenin:51 Abuse screen: Denies threats or abuse. Nutritional screening: No deficits noted. em Tuberculosis screening: No symptoms or risk factors identified. Fall Risk None identified. Assessment: 14:51 General: Appears in no apparent distress. comfortable, Behavior is calm, cooperative, em appropriate for age, Denies fever. Pain: Denies pain. Neuro: Level of Consciousness is awake, alert, obeys commands, Oriented to person, place, time, situation, Appropriate for age Reports dizziness, since 1 hour ago but has resolved since Denies headache. Cardiovascular: Capillary refill < 3 seconds Patient's skin is warm and dry. Rhythm is atrial fibrillation. Respiratory: Airway is patent Respiratory effort is even, unlabored, Respiratory pattern is regular, symmetrical, Denies shortness of breath at rest. GI: Abdomen is flat. Derm: Skin is intact, is thin, Skin is pink, warm \T\ dry. Musculoskeletal: Capillary refill < 3 seconds, Range of motion: intact in all extremities. 16:27 Reassessment: Patient appears in no apparent distress at this time. Patient and/or em family updated on plan of care and expected duration. Pain level reassessed. Patient is alert, oriented x 3, equal unlabored respirations, skin warm/dry/pink. Patient denies pain at this time. 17:49 Reassessment: Patient appears in no apparent distress at this time. Patient and/or em family updated on plan of care and expected duration. Pain level reassessed. Patient is alert, oriented x 3, equal unlabored respirations, skin warm/dry/pink. pending room assignment. 18:10 Reassessment: nurse unavailable for report at this time. em Vital Signs: 14:51 BP 141 / 68; Pulse 51 MON; Resp 18; Temp 98.3(O); Pulse Ox 98% on R/A; Pain 0/10; em 16:00 BP 159 / 85; Pulse 53; Resp 16; Pulse Ox 99% on R/A; em 17:15 BP 154 / 86; Pulse 55; Resp 18; Pulse Ox 100% on R/A; Pain 0/10; em 19:00 BP 148 / 76; Pulse 55 MON; Resp 18; Pulse Ox 99% on R/A; rv 19:30 BP 162 / 84; Pulse 55 MON; Resp 16; Pulse Ox 100% on R/A; rv 19:00 A fib rv 19:30 A fib rv ED Course: 14:51 Patient arrived in ED. em 14:51 Patient has correct armband on for positive identification. Bed in low position. Call em light in reach. Side rails up X2. library monitor on. Pulse ox on. NIBP on. 14:51 Maintain EMS IV. Dressing intact. Good blood return noted. Site clean \T\ dry. Gauge \T\ em site: 20 RFA. 14:53 Kevin Blackwell MD is Attending Physician. manish 14:54 Triage completed. em 14:55 Arm band placed on. em 15:04 Preston Dockery, KATELYNN is Primary Nurse. em 15:19 CT completed. Patient tolerated procedure well. Patient moved back from CT. bq 15:30 CT Head Brain wo Cont In Process Unspecified. EDMS 16:49 Ronn Wilson MD is Hospitalizing Provider. manish 16:58 Chest Single View XRAY In Process Unspecified. EDMS 17:00 IV discontinued, intact, bleeding controlled, No redness/swelling at site. Pressure em dressing applied, d/c in the RFA, swelling noted, applied warm compress and pressure dressing. 17:45 Inserted saline lock: 22 gauge in left forearm, using aseptic technique. em 17:51 Patient admitted, IV remains in place. em 19:44 No provider procedures requiring assistance completed. IV is patent, with fluids rv infusing freely, with good blood return. Administered Medications: 15:47 Drug: NS 0.9% 500 ml Route: IV; Rate: bolus; Site: right antecubital; em 16:44 Follow up: IV Status: Completed infusion; IV Intake: 500ml em 16:44 Not Given (Duplicate Order): NS 0.9% 1000 ml IV at 125 ml/hr continuous manish 17:13 Drug: Lasix 20 mg Route: IVP; Site: left antecubital; em 17:51 Follow up: Response: No adverse reaction; Marked relief of symptoms em Intake: 16:44 IV: 500ml; Total: 500ml. em Output: 17:50 Urine: 800ml (Voided); Total: 800ml. em Outcome: 16:52 Decision to Hospitalize by Provider. manish 19:44 Admitted to Med/surg accompanied by nurse, via wheelchair, room 229, with chart, Report rv called to umu lewis 19:44 Condition: stable 19:44 Instructed on the need for admit, Demonstrated understanding of instructions. 19:50 Patient left the ED. rv Signatures: Dispatcher [employer] Kevin Chavez MD MD cha Quilty, Betty bq Munoz, Edgar, RN RN Jb Salazar RN RN rv
--- NOTE | 2019-06-22 16:53 | EDPHYS ---
Physician Documentation [facility] Name: Isiah Gaytan Age: 83 yrs Sex: Male : 1935 Arrival Date: 06/22/2019 Time: 14:51 Bed 2 Private MD: ED Physician Kevin Blackwell HPI: 06/21 15:03 This 83 yrs old Male presents to ER via EMS with complaints of Dizziness. manish 15:03 This 83 yrs old Male presents to ER via EMS with complaints of Dizziness. manish 15:03 The patient presents with dizziness. Onset: The symptoms/episode began/occurred just manish prior to arrival. Context: occurred at home, occurred while the patient was sitting, just prior to the episode the patient experienced no apparent symptoms. Modifying factors: The symptoms are alleviated by nothing, the symptoms are aggravated by nothing. Associated signs and symptoms: Pertinent positives: near-syncope. Severity of symptoms: At their worst the symptoms were moderate in the emergency department the symptoms are unchanged. Patient's baseline: Neuro: alert and fully oriented. The patient has not experienced similar symptoms in the past. Historical: - Allergies: 14:55 Azithromycin; em 14:55 Codeine; em 14:55 Keflex; em - Home Meds: 14:55 aspirin 81 mg Oral chew 1 tab once daily [Active]; Eliquis Oral [Active]; atorvastatin em Oral [Active]; sotalol Oral [Active]; Tramadol Oral [Active]; - PMHx: 14:55 High Cholesterol; Hypertension; Myocardial infarction; em - PSHx: 14:55 HEAD SURGERY; RIGHT LEG SURGERY; em - Immunization history:: Adult Immunizations up to date. - Social history:: Smoking status: Patient denies any tobacco usage or history of. - Family history:: not pertinent. ROS: 15:03 Constitutional: Negative for fever, chills, and weight loss, Eyes: Negative for injury, manish pain, redness, and discharge, ENT: Negative for injury, pain, and discharge, Neck: Negative for injury, pain, and swelling, Cardiovascular: Negative for chest pain, palpitations, and edema, Respiratory: Negative for shortness of breath, cough, wheezing, and pleuritic chest pain, Abdomen/GI: Negative for abdominal pain, nausea, vomiting, diarrhea, and constipation, Back: Negative for injury and pain, : Negative for injury, bleeding, discharge, and swelling, MS/Extremity: Negative for injury and deformity, Skin: Negative for injury, rash, and discoloration, Psych: Negative for depression, anxiety, suicide ideation, homicidal ideation, and hallucinations, Allergy/Immunology: Negative for hives, rash, and allergies, Endocrine: Negative for neck swelling, polydipsia, polyuria, polyphagia, and marked weight changes, Hematologic/Lymphatic: Negative for swollen nodes, abnormal bleeding, and unusual bruising. 15:03 Neuro: Positive for dizziness, near syncope, weakness. Exam: 15:03 Constitutional: This is a well developed, well nourished patient who is awake, alert, manish and in no acute distress. Head/Face: Normocephalic, atraumatic. Eyes: Pupils equal round and reactive to light, extra-ocular motions intact. Lids and lashes normal. Conjunctiva and sclera are non-icteric and not injected. Cornea within normal limits. Periorbital areas with no swelling, redness, or edema. ENT: Nares patent. No nasal discharge, no septal abnormalities noted. Tympanic membranes are normal and external auditory canals are clear. Oropharynx with no redness, swelling, or masses, exudates, or evidence of obstruction, uvula midline. Mucous membranes moist. Neck: Trachea midline, no thyromegaly or masses palpated, and no cervical lymphadenopathy. Supple, full range of motion without nuchal rigidity, or vertebral point tenderness. No Meningismus. Chest/axilla: Normal chest wall appearance and motion. Nontender with no deformity. No lesions are appreciated. Respiratory: Lungs have equal breath sounds bilaterally, clear to auscultation and percussion. No rales, rhonchi or wheezes noted. No increased work of breathing, no retractions or nasal flaring. Abdomen/GI: Soft, non-tender, with normal bowel sounds. No distension or tympany. No guarding or rebound. No evidence of tenderness throughout. Back: No spinal tenderness. No costovertebral tenderness. Full range of motion. Male : Normal genitalia with no discharge or lesions. Skin: Warm, dry with normal turgor. Normal color with no rashes, no lesions, and no evidence of cellulitis. MS/ Extremity: Pulses equal, no cyanosis. Neurovascular intact. Full, normal range of motion. Psych: Awake, alert, with orientation to person, place and time. Behavior, mood, and affect are within normal limits. 15:03 Cardiovascular: Rate: bradycardic, Rhythm: irregularly irregular, Pulses: Pulses are 4+ in bilateral radial, brachial, femoral, popliteal, posterior tibial and and dorsalis pedis arteries.. Heart sounds: normal, Edema: is not appreciated, JVD: is not appreciated. 15:03 Neuro: Orientation: is normal, Mentation: is normal, appropriate for stated age, no acute changes, Memory: is normal, appropriate for stated age, no acute changes, Cranial nerves: grossly normal, is grossly normal based on the patient's age, no acute changes, Cerebellar function: is grossly normal, is grossly normal based on the patient's age, no acute changes, Motor: strength is 5/5 in all extremities, Sensation: is normal, no obvious gross deficits, appropriate Gait: not applicable Deep tendon reflexes are 2+ (normal) in the bilateral brachioradialis, bicep, tricep and patellar and Achilles tendons, seizure activity, is not displayed by the patient. 16:52 Musculoskeletal/extremity: Exam is negative for acute changes, ROM: no acute changes, manish Circulation is intact in all extremities. Sensation intact. Compartment Syndrome exam of affected extremity: is normal. DVT Exam: No signs of deep vein thrombosis. no pain, no swelling, no tenderness, negative Homans' sign noted on exam, no appreciated bluish discoloration, no erythema, no increased warmth. 16:53 ECG was reviewed by the Attending Physician. [facility] Vital Signs: 14:51 BP 141 / 68; Pulse 51 MON; Resp 18; Temp 98.3(O); Pulse Ox 98% on R/A; Pain 0/10; em 16:00 BP 159 / 85; Pulse 53; Resp 16; Pulse Ox 99% on R/A; em 17:15 BP 154 / 86; Pulse 55; Resp 18; Pulse Ox 100% on R/A; Pain 0/10; em 19:00 BP 148 / 76; Pulse 55 MON; Resp 18; Pulse Ox 99% on R/A; rv 19:30 BP 162 / 84; Pulse 55 MON; Resp 16; Pulse Ox 100% on R/A; rv 19:00 A fib rv 19:30 A fib rv MDM: 14:53 Patient medically screened. [facility] 15:08 Data reviewed: vital signs, nurses notes, lab test result(s), EKG, radiologic studies, manish CT scan, plain films. 16:27 Differential diagnosis: cardiac arrhythmia, generalized weakness, hypovolemia, manish near-syncope, CHF. Data interpreted: diamond die driller: rate is 55 beats/min, rhythm is atrial fibrillation, Interpretation: atrial fibrillation, Pulse oximetry: on room air is 99 %. 16:54 Test interpretation: by ED physician or midlevel provider: ECG, plain radiologic [facility] studies. ED course: nayeli garcia , admit to me, consult brijesh holderix 20 mg sivp xdaily, echo in the am. 06/21 14:57 Order name: Urine Dipstick--Ancillary (enter results); Complete Time: 16:24 06/21 15:02 Order name: Basic Metabolic Panel; Complete Time: 16:24 [facility] 06/21 15:02 Order name: CBC with Diff; Complete Time: 16:24 [facility] 06/21 15:02 Order name: LFT's; Complete Time: 16:24 [facility] 06/21 15:02 Order name: Magnesium; Complete Time: 16:24 [facility] 06/21 15:02 Order name: NT PRO-BNP; Complete Time: 16:24 [facility] 06/21 15:02 Order name: Troponin (emerg Dept Use Only); Complete Time: 16:24 [facility] 06/21 15:03 Order name: TSH; Complete Time: 16:24 [facility] 06/21 17:07 Order name: Basic Metabolic Panel [facility] 06/21 17:07 Order name: Basic Metabolic Panel [facility] 06/21 17:07 Order name: CBC with Automated Diff [facility] 06/21 17:07 Order name: CBC with Automated Diff [facility] 06/21 17:07 Order name: NT PRO-BNP [facility] 06/21 17:07 Order name: NT PRO-BNP [facility] 06/21 15:02 Order name: EKG; Complete Time: 15:02 [facility] 06/21 15:02 Order name: Cardiac monitoring; Complete Time: 15:04 [facility] 06/21 15:02 Order name: EKG - Nurse/Tech; Complete Time: 15:04 [facility] 06/21 15:03 Order name: CT Head Brain wo Cont; Complete Time: 16:24 [facility] 06/21 16:48 Order name: Chest Single View XRAY [facility] 06/21 17:02 Order name: CONS Physician Consult [facility] 06/21 17:07 Order name: Low Sodium [facility] 06/21 17:07 Order name: Troponin I [facility] 06/21 17:07 Order name: Troponin I [facility] 06/21 17:07 Order name: Troponin I [facility] 06/21 17:08 Order name: Chest Single View [facility] 06/21 17:08 Order name: Chest Single View [facility] 06/21 15:02 Order name: IV Saline Lock; Complete Time: 15:04 [facility] 06/21 15:02 Order name: Labs collected and sent; Complete Time: 15:04 [facility] 06/21 15:02 Order name: O2 Per Protocol; Complete Time: 15:04 [facility] 06/21 15:02 Order name: O2 Sat Monitoring; Complete Time: 15:04 [facility] 06/21 15:03 Order name: Urine Dipstick-Ancillary (obtain specimen); Complete Time: 15: [facility] 06/21 15:28 Order name: Labs - recollect needed: recollect all labs. specimen hemolyzed; Complete bd Time: 15:43 EC:53 Rate is 54 beats/min. Rhythm is irregular. CT interval is normal. QRS interval is manish normal. QT interval is normal. No Q waves. T waves are Normal. No ST changes noted. Clinical impression: Atrial Fibrillation and No evidence of ischemia. Interpreted by me. Reviewed by me. Administered Medications: 15:47 Drug: NS 0.9% 500 ml Route: IV; Rate: bolus; Site: right antecubital; em 16:44 Follow up: IV Status: Completed infusion; IV Intake: 500ml em 16:44 Not Given (Duplicate Order): NS 0.9% 1000 ml IV at 125 ml/hr continuous manish 17:13 Drug: Lasix 20 mg Route: IVP; Site: left antecubital; em 17:51 Follow up: Response: No adverse reaction; Marked relief of symptoms em Disposition: 06/22/19 16:52 Hospitalization ordered by Ronn Garcia for Inpatient Admission. Preliminary diagnosis are Atrial fibrillation and flutter - BRADYCARDIA, Essential (primary) hypertension, Syncope and collapse - near, Dyspnea, Unspecified combined systolic (congestive) and diastolic (congestive) heart failure. - Bed requested for Telemetry/MedSurg (Inpatient). - Status is Inpatient Admission. rv - Condition is Fair. - Problem is new. - Symptoms have improved. Signatures: Dispatcher [employer] [facility] Dayana Lee Mahsa Akbar, RN RN Kevin Sumner MD MD cha Munoz, Edgar, RN RN Jb Dominguez, RN RN rv Corrections: (The following items were deleted from the chart) 15:41 15:02 Chest Single View+[id number].[email or web address].[email or web address] ordered. EDIA EDIA 18:02 16:52 Hospitalization Ordered by Ronn Garcia MD for Inpatient Admission. Preliminary diagnosis is Atrial fibrillation and flutter - BRADYCARDIA; Essential (primary) hypertension; Syncope and collapse - near; Dyspnea; Unspecified combined systolic (congestive) and diastolic (congestive) heart failure. Bed requested for Telemetry/MedSurg (Inpatient). Status is Inpatient Admission. Condition is Fair. Problem is new. Symptoms have improved. manish 19:50 18:02 06/22/2019 16:52 Hospitalization Ordered by Ronn Garcia MD for Inpatient rv Admission. Preliminary diagnosis is Atrial fibrillation and flutter - BRADYCARDIA; Essential (primary) hypertension; Syncope and collapse - near; Dyspnea; Unspecified combined systolic (congestive) and diastolic (congestive) heart failure. Bed requested for Telemetry/MedSurg (Inpatient). Status is Inpatient Admission. Condition is Fair. Problem is new. Symptoms have improved. dw
[2019-06-22] MEDS ORDERED: FUROSEMIDE 20 MG/ 2ML VIAL ONE (16:55)
[2019-06-22] MEDS ORDERED: MORPHINE 4 MG/ML SYR IV PRN (17:02)
[2019-06-22] MEDS ORDERED: IPRATROPIUM BROM 0.5MG/2.5ML NEB PRN (17:02)
[2019-06-22] MEDS ORDERED: ONDANSETRON 4 MG/2 ML VIAL IV PRN (17:02)
[2019-06-22] MEDS ORDERED: ALBUTEROL 2.5 MG/3 ML NEB SOL NEB PRN (17:02)
[2019-06-22] MEDS ORDERED: ACETAMINOPHEN 325 MG TABLET PO PRN (17:10)
--- NOTE | 2019-06-22 19:03 | RAD REPORT ---
EXAM DESCRIPTION: RAD - Chest Single View - 06/22/2019 4:58 pm CLINICAL HISTORY: DYSPNEA COMPARISON: Portable June 12April 26 and March 26April 2017 TECHNIQUE: AP portable chest image was obtained 06/22/2019 4:58 pm . FINDINGS: Lung volumes are low. Focal opacities are present in each upper lung field accentuated by shallow inspiration. The upper lung field opacities, when adjusting for shallow inspiration, not subs tantially different from 2018. Interstitial pattern is prominent. Trachea is midline. Heart size is u pper normal. Vasculature is mildly prominent. No measurable pleural effusion and no pneumothorax. No acute bony abnormality seen. No acute aortic findings suspected. IMPRESSION: Mild CHF/volume overload suspected. All chest findings are exaggerated by shallow inspir ation. Focal opacities in each upper lobe not substantially different from 2018.
[2019-06-22] MEDS: SOTALOL HCL 80 MG TAB PO SCH (22:00)
[2019-06-22] MEDS: APIXABAN 5 MG TABLET PO SCH (22:00)
[2019-06-22 22:30] VITALS: BMI 25.1
[2019-06-23 04:16] LABS: Absolute Lymphocytes (CBC) 1.1 K/uL (0.7-4.9); Hematocrit 37.6 % (39.6-49.0); Lymphocytes % 28.8 % (15.3-44.8); MPV 8.6 fL (7.6-11.3); RBC Red Blood Cell Count 4.01 M/uL (4.33-5.43)
[2019-06-23] MEDS: SOTALOL HCL 80 MG TAB PO SCH (05:59)
[2019-06-23] MEDS ORDERED: PNEUMOCOCCAL VACCINE 0.5 ML IMVAC ONE (08:00)
[2019-06-23] MEDS: APIXABAN 5 MG TABLET PO SCH (08:47)
[2019-06-23 08:48] VITALS: BP 138/65
[2019-06-23] MEDS ORDERED: FUROSEMIDE 20 MG/ 2ML VIAL IV SCH (09:00)
--- NOTE | 2019-06-23 09:34 | RAD REPORT ---
EXAM DESCRIPTION: Ruddy Single View06/23/2019 6:43 am CLINICAL HISTORY: Chest pain COMPARISON: June 22, 2019 FINDINGS: Partial resolution in mild bilateral pulmonary opacities. Heart is mildly enlarged IMPRESSION: Improvement in mild CHF
[2019-06-23 10:15] VITALS: TEMP 98.3
[2019-06-23 13:19] VITALS: O2SAT 96
--- NOTE | 2019-06-23 13:25 | CON ---
Date of Consultation: 06/23/2019 The patient was admitted on 06/22/2023 for presyncope. I saw the patient on 06/23/2019. History Of Present Illness: Mr. Gaytan is an 83-year-old white male. He is known to me from previo us office visit and admission. He has a history of coronary artery disease status post angioplasty a nd stent of the circumflex and LAD in the past. He has done well from that regard. He has a history of atrial fibrillation that is paroxysmal. He has a history of hypertension and dyslipidemia. He c fidelina in with a near syncope episode. Prior to the episode, he complained of dizziness and weakness, b ut no nausea, vomiting, diaphoresis, PND, orthopnea, pedal edema, palpitation. He denied any chest p ain, nausea, vomiting, or diaphoresis. Denied any fever or chills or cough. Past Medical History: As stated above. Allergies: TO CEPHALEXIN, CODEINE, AND PENICILLIN. Medications: At home include sotalol 80 b.i.d., Eliquis, and Lasix. Review of Systems: Negative. Social History: Negative. Family History: Noncontributory. Physical Examination: General: He was in atrial fibrillation at a rate of 55. Blood pressure was normal. Afebrile. No a cute distress. Asymptomatic. HEENT: Negative. Neck: Supple with no bruit. Chest: Clear to auscultation and percussion. Cardiac: Revealed atrial fibrillation. Abdomen: Benign. Extremities: Revealed no clubbing, cyanosis, or edema. Diagnostic Data: Chest x-ray showed mild CHF. CT of his head was negative. BNP was 8293. Troponin 0.09. Echocardiogram in February of 2019 showed an EF of 56%, left ventricular hypertrophy, and aort ic sclerosis without any stenosis. EKG showed junctional bradycardia. Impression And Plan: Presyncope secondary to bradycardia and hypotension secondary to the atrial fib rillation. The patient had failed beta blockers. He has failed sotalol. He continued to have parox ysmal atrial fibrillation. He is intolerant with a high dose of sotalol. I will cut down the sotalo l dose to 40 b.i.d. I plan to get an event monitor on him in the near 2 weeks. Continue his Eliquis . Continue his Lasix and I think if he continues to have bradycardia, I am going to stop his sotalol and suggest an ablation with possible pacemaker. The case was discussed with Dr. Wilson. His slig htly elevated troponin and BNP are probably secondary to his atrial fibrillation. I would continue h is Lasix for now. His blood pressure is well controlled and his dyslipidemia is well controlled. Th e patient can go home soon today and I will see him in office in the next week or 2. PEDRO/JAYLEEN Voice ID: [id number] Report ID: [id number]
--- NOTE | 2019-06-23 20:14 | EKG ---
Test Date: 2019-06-22 Test Time: 15:00:31 Social Services Director: ERIN MEASUREMENT RESULTS: Intervals: Rate: 54 [place]: QRSD: 76 QT: 444 QTc: 421 [place]: P: [place]: QRS: 104 T: 205 INTERPRETIVE STATEMENTS: Atrial fibrillation with slow ventricular response with a competing junctional pacemaker Rightward axis ST & T wave abnormality, consider inferolateral ischemia Abnormal ECG Compared to ECG 06/13/2019 21:24:16 Right-axis deviation now present Junctional rhythm no longer present Left posterior fascicular block no longer present Myocardial infarct finding no longer present ST (T wave) deviation still present Possible ischemia still present Electronically Signed On 06-23-19 20:11:12 CDT by Pollo Navarro
--- NOTE | 2019-06-24 01:36 | DS ---
Date of Discharge: 06/23/2019 Hospital Course: Patient was admitted to hospital on 06/21, had presented to emergency room complain ing of near syncope and dizziness. He stated this came on approximately 24 hours before his presenta tion to the ER. He is slightly feeling lightheaded. He has had episodes of vertigo in the past. Ho w[place], at this time, he said it was more noticeable than usual with a change in position. He felt ve ry lightheaded, does not think he passed off completely, but he came close. He was admitted with manny mascorro from emergency room. X-ray showed mild CHF. He was given Lasix IV. Patient states edema of his legs went down remarkably. He had a bradycardia, sinus. His blood pressure was okay. He was te lemetry'ed overnight with the same rhythm seen by Cardiology this morning who suggested decreasing th e sotalol to 40 mg twice a day from 80 mg twice a day and he would follow up with him in a couple of weeks. He was also given Lasix IV and once again the edema went down almost to baseline. When seen, he had no peripheral edema. His telemetry today still showed a sinus bradycardia with no rhythm str ips below 50. His blood pressure remained normal. Remainder of his workup was essentially normal as far as acute injury is concerned. He was therefore discharged to follow up with Cardiology in 2 wee ks and me in 1 week with his Lasix being twice a day 20 mg. He was told he could have an extra 20 mg if he noticed some fluid retention peripherally and decrease in his sotalol. Discharged in fair con dition. Final Diagnoses: Near syncope secondary to cardiac arrhythmia, congestive heart failure, mild post m yocardial infarction and coronary artery disease by history. HR/MODL Voice ID: [id number] Report ID: [id number]
== END 2019-06-23 15:28 | disposition home or self-care (01) ==
LOC: ER 14:47 → INTOOBSV 16:58 → ERHOLD 16:58 → 2ND 19:43
PROVIDERS: ADMIT Family Medicine; ATTEND Family Medicine
DX: I48.0 Paroxysmal atrial fibrillation (principal); R00.1 Bradycardia, unspecified; R55 Syncope and collapse; I11.0 Hypertensive heart disease with heart failure; I50.40 Unspecified combined systolic (congestive) and diastolic (congestive) heart failure; I95.9 Hypotension, unspecified; I25.10 Atherosclerotic heart disease of native coronary artery without angina pectoris; E78.5 Hyperlipidemia, unspecified; I25.2 Old myocardial infarction; Z95.5 Presence of coronary angioplasty implant and graft; Z79.82 Long term (current) use of aspirin; Z79.02 Long term (current) use of antithrombotics/antiplatelets; Z88.0 Allergy status to penicillin; Z88.6 Allergy status to analgesic agent; Z88.1 Allergy status to other antibiotic agents
CPT/HCPCS: 96361; 93005; 85025 ×2; 80048 ×2; 36415; 83735; 80076; 84443; 81003; 84484 ×3; 83880 ×2; 70450; 71045 ×2; 97116; 97161; 96374; 99285; J1940 ×2; J7030; G0378 ×3

== ENCOUNTER 2019-10-11 15:55 | Emergency (ER) | payer OTHER ==
--- OUTSIDE RECORDS SUMMARY | 2019-10-11 15:58 | XMS REPORT | Continuity of Care Document ---
:1935 Author Organization [employer] Care Team Providers Name Role Phone [employer] Unavailable Un available Problems Problem Status Onset Date Classification Date Comments Sour ce Reported Chills 01/09/2019 01/21/2019 MH [place] (without [place] fever) FEVER Active 01/09/2019 [place] Medications Medication Details Route Status Patient Ordering Order Source Instructions Provider Date [place] Min[place] Notes: (Same Inactive MH Oil Enema as:Fleet 019 [place] Min[place] Oil [place] Enema) naproxen 500 mg 500 mg = 1 tab, Active MH oral tablet PO, BID, X 7 019 [place] day, # 14 tab, [place] 0 Refill(s), Pharmacy: [facility]/pharmacy #[id number] bisacodyl 10 mg 10 mg = 1 supp, Active MH rectal KS, Daily, PRN 019 [place] suppository Constipation, # [place] 10 supp, 0 Refill(s), Pharmacy: [facility]/pharmacy #[id number] Docusate Sodium 100 mg = 1 cap, Active MH 100 MG Oral PO, BID, # 60 019 [place] Capsule cap, 0 [place] [Colace] Refill(s), Pharmacy: [facility]/pharmacy #[id number] bisacodyl 5 mg 10 mg = 2 tab, Active MH oral enteric PO, Daily, PRN 019 [place] coated tablet Constipation, X [place] 10 day, # 20 tab, 0 Refill(s), Pharmacy: [facility]/pharmacy #[id number] POLYETHYLENE 17 gm, PO, Active MH GLYCOL 3350 142 Daily, PRN 019 [place] MG/ML Oral Constipation, # [place] Solution 255 gm, 0 [Miralax] Refill(s), Pharmacy: [facility]/pharmacy #[id number] Lactulose 667 Notes: (Same No Longer MH MG/ML Oral as:Chronulac) Active 019 [place] Solution [place] Lactulose 667 Notes: (Same Inactive 11/23/2 MH MG/ML Oral as:Chronulac) 019 [place] Solution [place] Dulcolax Notes: (Same No Longer Laxative As: Dulcolax, Active 019 [place] Bisco-Lax) [place] Melatonin 3 MG Notes: (Same No Longer Extended as: Melatonin) Active 019 [place] Release Tablet [place] Alprazolam 0.25 Notes: With Inactive MH MG Oral Tablet food or milk 019 [place] [Xanax] (Same as: [place] Xanax) Alprazolam 0.25 Notes: With Inactive MH MG Oral Tablet food or milk 019 [place] [Xanax] (Same as: [place] Xanax) pantoprazole Notes: Tablet No Longer should not be Active 019 [place] chewed or [place] crushed. (Same as: Protonix) Phenergan Notes: (Same No Longer as: Phenergan) Active 019 [place] Phenergan 25 mg, Route: Inactive IM, Q6H, Dosing 019 [place] Weight 74.2, [place] kg, PRN Nausea & Vomiting, Start date: 01/14/19 18:40:00 DIRECTOR OF VITAL STATISTICS, Duration: 30 day, Stop date: 02/13/19 18:39:00 DIRECTOR OF VITAL STATISTICS Dulcolax Notes: (Same Inactive Laxative As: Dulcolax, 019 [place] Bisco-Lax) [place] Levaquin Notes: Do not No Longer give Active 019 [place] w/antacids, [place] dairy pdt & minerals Take 1 hr before or 2 hr after dairy products metoprolol Notes: (Same No Longer extended as: Toprol XL) Active 019 [place] release May split tab, [place] but do not crush. Albuterol 0.833 Notes: (Same No Longer M H MG/ML / as: Duoneb) Active 019 [place] Ipratropium [place] Bearden 0.167 MG/ML Inhalant Solution Docusate Sodium 100 mg = 1 cap, No Longer MH 100 MG Oral PO, BID, 0 Active 019 [place] Capsule Refill(s) [place] Famotidine 20 20 mg = 1 tab, Active MH MG Oral Tablet PO, BID, 0 019 [place] Refill(s) [place] naproxen 250 mg 500 mg = 2 tab, No Longer oral tablet PO, BID, 0 Active 019 [place] Refill(s) [place] Dulcolax Notes: (Same Inactive Laxative As: Dulcolax, 019 [place] Correctol) (Do [place] Not Crush) "Do Not Crush" Miralax Notes: Dissolve Inactive in 8 oz of 019 [place] water or juice. [place] (Same as: Miralax) Naproxen Notes: (Same No Longer MH as: Naprosyn) Active 019 [place] Take with food. [place] Famotidine 20 Notes: (Same No Longer MH MG Oral Tablet as: Pepcid) Active 019 [place] Levofloxacin Notes: (Same No Longer as:Levaquin) Active 019 [place] Docusate Sodium Notes: (Same No Longer M H 100 MG Oral as: Colace) (Do Active 019 [place] Capsule Not Crush) [place] Acetaminophen Notes: Do not No Longer MH 325 MG / exceed 4gm/day Active 019 [place] Hydrocodone of [place] Bitartrate 10 acetaminophen. MG Oral Tablet (Same as: [place] [[place] 10/325] 325/10) clopidogrel Notes: (Same No Longer As: Plavix) Active 019 [place] Flomax Notes: (Same No Longer As: Flomax) Active 019 [place] "Do Not Crush" [place] Morphine 2 mg, 1 mL, No Longer Route: IVP, Active 019 [place] Drug form: [place] SOLN, Q4H, Dosing Weight 74.2, kg, PRN Pain Score 7-10, Start date: 01/10/19 5:04:00 DIRECTOR OF VITAL STATISTICS, Duration: 30 day, Stop date: 02/09/19 5:03:00 DIRECTOR OF VITAL STATISTICS, 0 Streptococcus Notes: Shake No Longer MH pneumoniae well prior to Active 019 [place] serotype 1 use (Same as: [place] capsular Prevnar 13) antigen diphtheria [id number] protein conjugate vaccine / Streptococcus pneumoniae serotype 14 capsular antigen diphtheria [id number] protein conjugate vaccine / Streptococcus pneumoniae serotype 18C capsular antigen d metoprolol 50 50 mg = 1 tab, Active MH mg oral tablet, PO, Daily, # 30 019 [place] extended tab, 0 [place] release Refill(s) clopidogrel 75 75 mg = 1 tab, Active MH mg oral tablet PO, Daily, # 30 019 S ugar tab, 0 [place] Refill(s) atorvastatin 80 mg, PO, Active MH Daily, 0 019 [place] Refill(s) [place] Tamsulosin 0.4 mg = 1 cap, Active MH hydrochloride PO, Daily, # 30 019 Rojas gar 0.4 MG Oral cap, 0 [place] Capsule Refill(s) [Flomax] Albuterol 0.833 Notes: (Same No Longer M H MG/ML / as: Duoneb) Active 019 [place] Ipratropium [place] Bearden 0.167 MG/ML Inhalant Solution Ondansetron Notes: (Same No Longer as: Zofran) Active 019 [place] MEDICATION [place] WASTE Product Size: 4 mg Product Wasted: ___ mg Albuterol 0.83 Notes: SEE RT No Longer M H MG/ML Inhalant DOCUMENTATION Active 019 [place] ar Solution (Same as: [place] Proventil) NS 1,000 mL 1,000 mL, Rate: Inactive 60 ml/hr, 019 [place] Infuse over: [place] 16.7 hr, Route: IV, Dosing Weight 74.2 kg, Total Volume: 1,000, Start date: 01/10/19 2:33:00 DIRECTOR OF VITAL STATISTICS, Duration: 1 doses or times, Stop date: 01/10/19 19:14:00 DIRECTOR OF VITAL STATISTICS, 1.91, m2, 0 Morphine Notes: (Same Inactive as:MORPhine 019 [place] Sulfate) [place] Zofran Notes: (Same Inactive as: Zofran) 019 [place] MEDICATION [place] WASTE Product Size: 4 mg Product Wasted: ___ mg Levaquin Notes: (Same Inactive as:Levaquin) 019 [place] Zofran Notes: (Same No Longer as: Zofran) Active 019 [place] MEDICATION [place] WASTE Product Size: 4 mg Product Wasted: ___ mg Saline Flush Notes: (Same No Longer 0.9% as: BD Active 019 [place] Posiflush) [place] Sodium Chloride 1,000 mL, 2,000 No Longer 0.9% (Bolus) IV ml/hr, Infuse Active 019 Rojas gar Over: 0.5 hr, [place] Route: IV, 1,000, Drug form: INJ, ONCE, Priority: STAT, Dosing Weight 74.2 kg, Start date: 01/09/19 22:20:00 DIRECTOR OF VITAL STATISTICS, Stop date: 01/09/19 22:20:00 DIRECTOR OF VITAL STATISTICS, 0 Allergies, Adverse Reactions, Alerts Substance Category Reaction Severity Reaction Status Date Comments S ource type Reported codeine Assertion Drug Active MH allergy [place] Keflex Assertion Drug Active allergy [place] Immunizations No Data Provided for This Section Results Order Name Results Value Reference Date Interpretation Comments Cassidy rce Range URINE AND UA Color Yellow Yellow 01/16 STOOL *NA* [place] (01/15/19 6:22 PM) [place] URINE AND UA Turbidity Clear Clear 01/16 STOOL (01/15/19 6:22 PM) [place] URINE AND UA Spec Grav 1.023 <=1.030 01/16 STOOL /2018 [place] URINE AND UA pH 5.0 5.0 - 8.0 01/16 STOOL [place] URINE AND UA Protein Negative Negative 01/16 STOOL (01/15/19 6:22 PM) [place] URINE AND UA Glucose Negative Negative 01/16 STOOL *NA* /2018 [place] (01/15/19 6:22 PM) [place] URINE AND UA Ketones 20 mg/dL Negative 01/16 STOOL mg/dL [place] URINE AND UA Bili Negative Negative 01/16 STOOL *NA* [place] (01/15/19 6:22 PM) [place] URINE AND UA Blood Negative Negative 01/16 STOOL (01/15/19 6:22 PM) [place] URINE AND UA <=1.0 0.1 - 1.0 01/16 STOOL Urobilinogen mg/dL [place] URINE AND UA Nitrite Negative Negative 01/16 STOOL (01/15/19 6:22 PM) [place] URINE AND UA Leuk Est Negative Negative 01/16 STOOL (01/15/19 6:22 PM) [place] URINE AND UA Sq Epi None Seen Few 01/16 STOOL (01/15/19 6:22 PM) [place] URINE AND UA WBC 1 0 - 5 01/16 STOOL [place] URINE AND UA RBC 1 0 - 2 01/16 STOOL [place] URINE AND UA Mucus Few /LPF None Seen 01/16 STOOL /LPF [place] CHEM PANEL Magnesium Lvl 2.3 1.8 - 2.4 01/14 [place] CHEM PANEL Phosphorus 3.0 2.5 - 4.5 01/14 [place] ELECTROLYTES AGAP 10.3 10.0 - 01/14 MH 20.0 [place] ELECTROLYTES Glucose Lvl 104 70 - 99 01/14 [place] ELECTROLYTES BUN 15 7 - 22 01/14 [place] ELECTROLYTES Creatinine Lvl 0.69 0.50 - 01/14 MH 1.40 [place] ELECTROLYTES Sodium Lvl 138 135 - 145 01/14 [place] ELECTROLYTES Potassium Lvl 4.3 3.5 - 5.1 01/14 [place] ELECTROLYTES Chloride Lvl 106 95 - 109 01/14 [place] ELECTROLYTES CO2 26 24 - 32 01/14 [place] ELECTROLYTES Calcium Lvl 8.9 8.5 - 10.5 01/14 [place] ELECTROLYTES eGFR 87 01/14 Comment: The [place] eGFR is [place] calculated using the CKD-EPI formula. In most young, healthy individuals the eGFR will be >90 mL/min/1.73m2 . The eGFR declines with age. An eGFR of 60-89 may be normal in some populations, particularly the elderly, for whom the CKD-EPI formula has not been extensively validated. Use of the eGFR is not recommended in the following populations:< br/>
Katie viduals with unstable creatinine concentration s, including patients and those with serious co-morbid conditions.<b r/>
Patie nts with extremes in muscle mass or diet.

The data above are obtained from the National Kidney Disease Education Program (NKDEP) which additionally recommends that when the eGFR is used in patients with extremes of body mass index for purposes of drug dosing, the eGFR should be multiplied by the estimated BMI. HEMATOLOGY WBC 2.6 3.7 - 10.4 01/14 [place] HEMATOLOGY RBC 3.79 4.70 - 01/14 MH 6.10 [place] HEMATOLOGY Hgb 11.1 14.0 - 01/14 MH 18.0 [place] HEMATOLOGY Hct 34.9 42.0 - 01/14 MH 54.0 [place] HEMATOLOGY MCV 92.0 80.0 - 01/14 MH 94.0 [place] HEMATOLOGY MCH 29.3 27.0 - 01/14 MH 31.0 [place] HEMATOLOGY MCHC 31.8 32.0 - 01/14 MH 36.0 [place] HEMATOLOGY RDW 16.5 11.5 - 01/14 14.5 [place] HEMATOLOGY Platelet 148 133 - 450 01/14 [place] HEMATOLOGY MPV 8.3 7.4 - 10.4 01/14 [place] HEMATOLOGY Segs 66.8 45.0 - 01/14 75.0 [place] HEMATOLOGY Lymphocytes 12.6 20.0 - 01/14 MH 40.0 [place] HEMATOLOGY Monocytes 8.4 2.0 - 12.0 01/14 [place] HEMATOLOGY Eosinophils 11.5 0.0 - 4.0 01/14 [place] HEMATOLOGY Basophils 0.7 0.0 - 1.0 01/14 [place] HEMATOLOGY Neutrophils # 1.7 1.5 - 8.1 01/14 [place] HEMATOLOGY Lymphocytes # 0.3 1.0 - 5.5 01/14 [place] HEMATOLOGY Monocytes # 0.2 0.0 - 0.8 01/14 [place] HEMATOLOGY Eosinophils # 0.3 0.0 - 0.5 01/14 [place] CHEM PANEL Magnesium Lvl 2.0 1.8 - 2.4 01/13 [place] CHEM PANEL Phosphorus 3.6 2.5 - 4.5 01/13 [place] CHEM PANEL Glucose Lvl 127 70 - 99 01/13 [place] CHEM PANEL BUN 9 7 - 22 01/13 [place] CHEM PANEL Creatinine Lvl 0.71 0.50 - 01/13 MH 1.40 [place] CHEM PANEL Sodium Lvl 139 135 - 145 01/13 [place] CHEM PANEL Potassium Lvl 4.2 3.5 - 5.1 01/13 [place] CHEM PANEL Chloride Lvl 106 95 - 109 01/13 [place] CHEM PANEL CO2 27 24 - 32 01/13 [place] CHEM PANEL AGAP 10.2 10.0 - 01/13 MH 20.0 [place] CHEM PANEL Calcium Lvl 8.9 8.5 - 10.5 01/13 [place] CHEM PANEL eGFR 86 01/13 Result Comment: The [place] eGFR is [place] calculated using the CKD-EPI formula. In most young, healthy individuals the eGFR will be >90 mL/min/1.73m2 . The eGFR declines with age. An eGFR of 60-89 may be normal in some populations, particularly the elderly, for whom the CKD-EPI formula has not been extensively validated. Use of the eGFR is not recommended in the following populations:< br/>
Katie viduals with unstable creatinine concentration s, including patients and those with serious co-morbid conditions.<b r/>
Patie nts with extremes in muscle mass or diet.

The data above are obtained from the National Kidney Disease Education Program (NKDEP) which additionally recommends that when the eGFR is used in patients with extremes of body mass index for purposes of drug dosing, the eGFR should be multiplied by the estimated BMI. HEMATOLOGY Segs 63.6 45.0 - 01/13 MH 75.0 2019 [place] HEMATOLOGY Lymphocytes 19.5 20.0 - 01/13 MH 40.0 [place] HEMATOLOGY Monocytes 11.0 2.0 - 12.0 01/13 [place] HEMATOLOGY Eosinophils 5.2 0.0 - 4.0 01/13 [place] HEMATOLOGY Basophils 0.7 0.0 - 1.0 01/13 [place] HEMATOLOGY Neutrophils # 1.4 1.5 - 8.1 01/13 [place] HEMATOLOGY Lymphocytes # 0.4 1.0 - 5.5 01/13 [place] HEMATOLOGY Monocytes # 0.2 0.0 - 0.8 01/13 [place] HEMATOLOGY Eosinophils # 0.1 0.0 - 0.5 01/13 [place] HEMATOLOGY WBC 2.2 3.7 - 10.4 01/13 [place] HEMATOLOGY RBC 3.60 4.70 - 01/13 MH 6.10 [place] HEMATOLOGY Hgb 10.8 14.0 - 01/13 MH 18.0 [place] HEMATOLOGY Hct 33.4 42.0 - 01/13 MH 54.0 [place] HEMATOLOGY MCV 92.9 80.0 - 01/13 MH 94.0 [place] HEMATOLOGY MCH 30.1 27.0 - 01/13 MH 31.0 [place] HEMATOLOGY MCHC 32.4 32.0 - 01/13 MH 36.0 [place] HEMATOLOGY RDW 17.0 11.5 - 01/13 MH 14.5 [place] HEMATOLOGY Platelet 108 133 - 450 01/13 [place] HEMATOLOGY MPV 8.0 7.4 - 10.4 01/13 [place] CHEM PANEL Glucose Lvl 141 70 - 99 01/12 [place] CHEM PANEL BUN 7 7 - 22 01/12 [place] CHEM PANEL Creatinine Lvl 0.69 0.50 - 01/12 MH 1.40 [place] CHEM PANEL Sodium Lvl 134 135 - 145 01/12 [place] CHEM PANEL Potassium Lvl 4.3 3.5 - 5.1 01/12 [place] CHEM PANEL Chloride Lvl 101 95 - 109 01/12 [place] CHEM PANEL CO2 26 24 - 32 01/12 [place] CHEM PANEL Calcium Lvl 8.5 8.5 - 10.5 01/12 [place] CHEM PANEL eGFR 87 01/12 Result Comment: The [place] eGFR is [place] calculated using the CKD-EPI formula. In most young, healthy individuals the eGFR will be >90 mL/min/1.73m2 . The eGFR declines with age. An eGFR of 60-89 may be normal in some populations, particularly the elderly, for whom the CKD-EPI formula has not been extensively validated. Use of the eGFR is not recommended in the following populations:< br/>
Katie viduals with unstable creatinine concentration s, including patients and those with serious co-morbid conditions.<b r/>
Patie nts with extremes in muscle mass or diet.

The data above are obtained from the National Kidney Disease Education Program (NKDEP) which additionally recommends that when the eGFR is used in patients with extremes of body mass index for purposes of drug dosing, the eGFR should be multiplied by the estimated BMI. CHEM PANEL AGAP 11.3 10.0 - 01/12 MH 20.0 [place] CHEM PANEL Magnesium Lvl 1.9 1.8 - 2.4 01/12 [place] CHEM PANEL Phosphorus 2.8 2.5 - 4.5 01/12 [place] HEMATOLOGY WBC 3.7 3.7 - 10.4 01/12 [place] HEMATOLOGY RBC 3.68 4.70 - 01/12 MH 6.10 [place] HEMATOLOGY Hgb 11.0 14.0 - 01/12 MH 18.0 [place] HEMATOLOGY Hct 33.9 42.0 - 01/12 MH 54.0 [place] HEMATOLOGY MCV 92.1 80.0 - 01/12 MH 94.0 [place] HEMATOLOGY MCH 30.0 27.0 - 01/12 MH 31.0 [place] HEMATOLOGY MCHC 32.6 32.0 - 01/12 MH 36.0 [place] HEMATOLOGY RDW 16.7 11.5 - 01/12 MH 14.5 [place] HEMATOLOGY Platelet 131 133 - 450 01/12 [place] HEMATOLOGY MPV 8.2 7.4 - 10.4 01/12 [place] HEMATOLOGY Segs 76.8 45.0 - 01/12 MH 75.0 /2018 [place] HEMATOLOGY Lymphocytes 9.9 20.0 - 01/12 MH 40.0 [place] HEMATOLOGY Monocytes 11.8 2.0 - 12.0 01/12 [place] HEMATOLOGY Eosinophils 1.2 0.0 - 4.0 01/12 [place] HEMATOLOGY Basophils 0.3 0.0 - 1.0 01/12 [place] HEMATOLOGY Neutrophils # 2.8 1.5 - 8.1 01/12 [place] HEMATOLOGY Lymphocytes # 0.4 1.0 - 5.5 01/12 [place] HEMATOLOGY Monocytes # 0.4 0.0 - 0.8 01/12 [place] BACTERIAL - Source Strep Urine 01/10 SEROLOGY *NA* /2019 [place] (01/10/19 3:33 AM) [place] BACTERIAL - Strep Negative Negative 01/10 SEROLOGY pneumoniae Ag (01/10/19 3:33 AM) [place] URINE AND UA Color Yellow Yellow 01/10 STOOL *NA* /2018 [place] (01/10/19 3:33 AM) [place] URINE AND UA Turbidity Clear Clear 01/10 STOOL (01/10/19 3:33 AM) [place] URINE AND UA Spec Grav 1.014 <=1.030 01/10 STOOL /2018 [place] URINE AND UA pH 5.0 5.0 - 8.0 01/10 STOOL /2018 [place] URINE AND UA Protein Negative Negative 01/10 STOOL (01/10/19 3:33 AM) [place] URINE AND UA Glucose Negative Negative 01/10 STOOL *NA* /2018 [place] (01/10/19 3:33 AM) [place] URINE AND UA Ketones Trace Negative 01/10 STOOL *ABN* /2018 [place] (01/10/19 3:33 AM) [place] URINE AND UA Bili Negative Negative 01/10 STOOL *NA* /2018 [place] (01/10/19 3:33 AM) [place] URINE AND UA Blood Negative Negative 01/10 STOOL (01/10/19 3:33 AM) [place] URINE AND UA <=1.0 0.1 - 1.0 01/10 STOOL Urobilinogen mg/dL [place] URINE AND UA Nitrite Negative Negative 01/10 STOOL (01/10/19 3:33 AM) [place] URINE AND UA Leuk Est Negative Negative 01/10 STOOL (01/10/19 3:33 AM) [place] URINE AND UA Sq Epi None Seen Few 01/10 STOOL (01/10/19 3:33 AM) [place] URINE AND UA WBC <1 0 - 5 01/10 STOOL /2018 [place] URINE AND UA RBC <1 0 - 2 01/10 STOOL [place] URINE AND UA Mucus Few /LPF None Seen 01/10 STOOL /LPF /2018 [place] VIRAL - Influ A Negative Negative 01/10 SEROLOGY (01/10/19 1:15 AM) [place] VIRAL - Influ B Negative Negative 01/10 SEROLOGY (01/10/19 1:15 AM) [place] CARDIAC Troponin-I 0.09 0.00 - 01/10 ENZYMES 0.40 [place] CHEM PANEL Procalcitonin <0.05 0.00 - 01/10 Lvl ng/mL 0.10 [place] CHEM PANEL Total Protein 7.1 6.4 - 8.4 01/10 [place] CHEM PANEL Albumin Lvl 3.1 3.5 - 5.0 01/10 [place] CHEM PANEL ALT 27 0 - 65 01/10 [place] CHEM PANEL AST 27 0 - 37 01/10 [place] CHEM PANEL Alk Phos 136 39 - 136 01/10 [place] CHEM PANEL Bili Total 0.5 0.2 - 1.3 01/10 [place] CHEM PANEL B/C Ratio 17 6 - 25 01/10 [place] CHEM PANEL Globulin 4.0 2.7 - 4.2 01/10 [place] CHEM PANEL A/G Ratio 0.8 0.7 - 1.6 01/10 [place] CHEM PANEL Lactic Acid 0.9 0.5 - 2.2 01/10 Lvl /2018 [place] HEMATOLOGY INR 1.08 0.85 - 01/10 1.17 [place] HEMATOLOGY PT 13.8 12.0 - 01/10 14.7 [place] HEMATOLOGY PTT 23.3 22.9 - 01/10 35.8 2019 [place] HEMATOLOGY Eosinophils # 0.2 0.0 - 0.5 01/10 [place] Pathology Reports No Data Provided for This Section Diagnostic Reports Report Value Date Source Knee wo contrast CT CLINICAL HISTORY: , - pain and swelling [facility] EXAM: CT right knee without contrast 01/12/2019 15:59 DIRECTOR OF VITAL STATISTICS COMPARISON: None. TECHNIQUE: Volumetric CT acq uisition was performed through the right knee. Images in the axial, coronal, and sagittal planes were presented for interpretation. No intravenous or enteric contrast was administered. This examination was perform ed according to our departmental dose optimization protocol, which includes automated exposure control, adjustment of the mA and/or kV according to the patient size and/or use of iterative reconstruction technique. Radiation dose/contrast: DLP: 303.60 mgy-cm FINDINGS: There is right femoral fixat ion hardware with intramedullary franky extending down to the level of the supracondylar ridge. There is no acute fracture or dislocation. There are severe tricompartm ental osteoarthritic changes throughout the knee joint. There is joint space narrowi ng and subchondral cyst formation throughout the knee, most pronounced in the medial joint space. There is a moderate-sized joint effusion. There are no intraarticular bodies. The anterior and posterior cruciate ligaments re main grossly intact. The medial meniscus is not well visualized. The lateral meniscus is grossly normal in appear ance. The medial and lateral collateral ligaments are grossly unremarkable. IMPRESSION: 1. No acute fracture or dislocation. 2.. Severe tricompartmental osteoarthritic changes, most pronounced in the medial joint space. 3. Moderate-sized joint effusion. Knee 3 Views Bilateral Knee 3 Views Bilateral DX 01/12/2019 10:37 DIRECTOR OF VITAL STATISTICS 01/12/2019 [place] DX Clinical: - acute swelling Comparison: No prior exam. Findings: Right knee: Osteopenia is pr esent. Severe medial compartment and patellofemoral joint arthrosis, moderate lateral compartment arthrosis are present with joint space narrowing, osteophytosis. Moderate rojas prapatellar bursal effusion is present. Mild prepatellar and infrapatellar soft tissue thickening is present. Distal femoral intramedullar y franky and anchoring screw are present. No acute fracture. Left knee: Osteopenia. Mild medial and lateral compartment arthrosis and moderate to severe patellofemoral joint arthrosis are present. Moderate suprapatellar bursal effusion. Moderate prepatellar and infrapatellar soft tissue thickening. Mild atherosclerotic calcifications are present. Impression: 1. No acute fracture. 2. Bilateral knee arthrosis, more severe the rig ht knee, as above. 3. Moderate bilateral suprap atellar bursal effusions and soft tissue thickening. Chest 1view DX Chest 1view DX 01/09/2019 10:20 PM DIRECTOR OF VITAL STATISTICS 9 [employer] INDICATION: - Undifferentiated Sepsis COMPARISON: No prior exam. FINDINGS: Lines and tubes: None Lungs/mediastinum: Patchy op acification in the left lower lung may represent atelectasis or pneumonia with blunting of left costophrenic angle which may represent pleural thickening/pleural effusion.The right costophrenic angle is intact.No pneumothorax. Surgical clips are seen in the right axilla from previous axillary lymph node dissection. Heart: Normal in size. 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 Bones: No acute bony change. Upper abdomen: No acute findings in the upper ab domen. IMPRESSION: 1. Patchy opacification in t he left lower lung may represent atelectasis or pneumonia with a small left pleural effusion. Otherwise unremarkable examination. Hip 2/3 views uni w CLINICAL HISTORY: , - pain, fever 9 [facility] [place] pelvis DX EXAM: Portable AP view of th e pelvis and AP and lateral views of the right hip 01/09/2019 22:19 DIRECTOR OF VITAL STATISTICS Comparisons: Portable AP view of the chest 11/23. FINDINGS: There is right proximal femoral fixation hardwar e. There are advanced degenerat neymar changes of the left hip with its. Joint space narrowing and bony remodeling of the femoral head and acetabulum. There is no acute fracture or dislocation.. Limited evaluation of the lo wer lumbar spine and sacrum demonstrate no gross abnormalities. The soft tissue structures o f the pelvis and proximal thighs demonstrate no gross abnormalities. IMPRESSION: 1. Osteopenia, otherwise no acute fracture or di slocation. 2. Advanced degenerative changes of the left hip joint. 3. Right femoral fixation hardware.. Consultation Notes No Data Provided for This Section Discharge Summaries No Data Provided for This Section History and Physicals No Data Provided for This Section Vital Signs Vital Sign Value Date Comments Source Temperature Oral (F) 97.6 F 01/19/2019 [place] Heart Rate 77 01/19/2019 MH [place] Respitory Rate 18 01/19/2019 [facility] [place] Systolic (mm Hg) 119 01/19/2019 [place] Diastolic (mm Hg) 80 01/19/2019 [place] and Temperature Oral (F) 97.9 F 01/19/2019 [facility] [place] Heart Rate 78 01/19/2019 MH [place] Respitory Rate 18 01/19/2019 MH [place] Systolic (mm Hg) 154 01/19/2019 [place] Diastolic (mm Hg) 84 01/19/2019 MH [place] and Temperature Oral (F) 97.6 F 01/19/2019 [facility] [place] Heart Rate 76 01/19/2019 MH [place] Respitory Rate 18 01/19/2019 MH [place] Systolic (mm Hg) 136 01/19/2019 [place] Diastolic (mm Hg) 78 01/19/2019 [place] and Height 170.18 cm 01/10/2019 [place] Weight 74.2 01/10/2019 [place] Encounters Location Location Encounter Encounter Reason Attending ADM TX Stat us Source Details Type Number For Provider Date Date Visit [facility] Inpatient [id number] [place] 01/10 01/20 [facility] [place] Procedures No Data Provided for This Section Assessment and Plan Assessment and Plan Date Source Extracted from:Title: Progress Note 01/20/2019 Debra tejeda Radha Author: Barbara Ag MD Date: 01/18/19 Gram-negative pneumonia Nausea History of brain cancer Bilateral knee pain due to osteoarthritis Physical deconditioning BPH CAD s/p PCI Plan: --prn phenergan for nausea continue pantoprazole --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 Continue Levaquin forpneumonia for total 10 day course Naproxen for osteoarthritis pain Continue H2 evita while on naproxen Tamsulosin for BPH Patient will need to resumeradiation treatments as o utpatient after discharge --continue BB and plavix for CAD Prophylaxis H2 evita Disposition to SNF once approved, awaiting insurance authorization Barbara Ag MD Internal Medicine Plan of Care No Data Provided for This Section Social History Social History Date Source Social History TypeResponse 01/10/2019 Marisol Unger d Smoking Status Former smoker; Exposure to Tobacco Smoke Unable to obtain; Cigarette Smoking Last 365 Days No; Reg Smoking Cessation Counseling No entered on: 01/10/19 Family History No Data Provided for This Section Advance Directives No Data Provided for This Section Functional Status No Data Provided for This Section
--- OUTSIDE RECORDS SUMMARY | 2019-10-11 16:01 | XMS REPORT | Continuity of Care Document ---
:1935 Author Organization [facility] t Address [address] [place] [address] Dr. Crawford[address] [place] [id number] Care Team Providers Name Role Phone Komal LOCKETT, N Primary Care Physician Jackelyn PACE, L Attending Clinician Unavailable Komal LOCKETT, N Attending Clinician Flor Ag Attending Clinician Preston PACE Attending Clinician Unavailable Marcio PACE Attending Clinician Unavailable Marv LOCKETT Attending Clinician Sebastien LOCKETT Attending Clinician David URBANO Attending Clinician Radha Carmona DDS Attending Clinician Iris LOCKETT Attending Clinician Severino MAGALLANES S Attending Clinician Jacob LOCKETT Attending Clinician Ethan Pablo DDS Attending Clinician Lynette MAGALLANES Attending Clinician Unavailable Nimesh Weinberg MD Attending Clinician Kiana PACE, J Attending Clinician Unavailable Gabriel HENAO Attending Clinician Charles MAGALLANES S Attending Clinician Grace MAGALLANES M Attending Clinician Carlos LOCKETT Attending Clinician Barbie GARSIAS, Vijay Attending Clinician Dario Scott MD Attending Clinician Shaik KATELYNN, B Attending Clinician Jonathan Moreno MD Attending Clinician Asael PACE M Attending Clinician Unavailable Renata LOCKETT, Z Attending Clinician Iban LOCKETT Attending Clinician Stew NG Attending Clinician Nithya Admitting Clinician Payers Payer Name Policy Type Policy Effective Date Expiration Date Sour ce Number AETNA MEDICAREAETNA [id number] 2013 MD Shahla ga MEDICARE 00:00:00 [id number] -PresentMedicare Problems Condition Condition Condition Status Onset Resolution Last Treating Co mments Source Name Details Category Date Date Treatment Clinician Date FEVER Diagnosis Active 2018-022019-01-27 Mem oria 1-14 22:24:00 l FEVER 00:00: Philip 00 Active 01/09/2019 [place] Unexplaine Unexplaine Disease Active 2018-02 Last M D d falls d falls 0-22 Assessmen Willis so 00:00: t & Plan: n 00 It is possible that Mr. Rhodes experienc ed a syncopal episode resulting in the fall that broke his femur and hip, though he does not believe that he lost conscious ness. He is under the care of a cardiolog ist and has undergone cardiolog y workup. He underwent MRI brain in October that showed some atrophy but no acute abnormali ties. The history of his fall does not correspon d with epileptic etiology and he has no history of seizures. Most likely he either lost his balance or suffered a syncopal episode due to orthostat ic hypotensi on when rising back to a standing position from bending over. A neurologi c process would be less likely. He should continue with physical therapy as he is doing. Education was given regarding standing slowly and staying well hydrated. 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 Suspect dementia but will refer for formal neurocogn itive testing to better define impairmen ts. We will plan to follow up with him and his family after testing is complete. Encounter Encounter Disease Active 2018-02 for for 0-22 Anderso observatio observatio 00:00: n n for n for 00 other other suspected suspected condition condition ruled out ruled out Displaced Displaced Disease Active Overview: intertroch intertroch 10-29 Added An derso anteric anteric 00:00: automatic n fracture fracture 00 ally from of right of right request femur femur for surgery [id number] Encounter Encounter Disease Active Overview: for other for other 09-1810/01/18 Arya rso preprocedu preprocedu 00:00: ECHO n ral ral 00 Interpret examinatio examinatio ation n n SummaryA complete two-dimen sional transthor acic echocardi ogram was performed (2D, M-mode, Spectral and color Doppler). Micro-Sergio bles injection performed because of poor endocardi al resolutio n. There is no compariso n study available .Normal left ventricul ar size and systolic function. LV ejection fraction calculate d using the bi-plane method of disks is 59 %.The right ventricle is normal in size and function. Estimated RVSP is 52mmHg. This is consisten t with pulmonary artery hypertens ion.There is no pericardi al effusion. OUTSIDE RECORDS ECHO: EF 68%. Aortic sclerosis with no aortic stenosis or AR. Mild MR and TR07/09/18 MPI: EF 47% mildly 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 [id number] Carotid Duplex: <50% plaque within right ICA, normal left ICA, antegrade flow within bilateral vertebral arteriesO records from [place], [place] 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 00 Hallucinos Hallucinos Disease Active M D is is Anderso n Chills Problem 2018-022019-01-21 2019-01-21 M emoria (without -14 22:44:12 22:44:12 l fever) Chills 18:00: Philip (without 00 fever) 01/09/2019 01/21/2019 Meservey Allergies, Adverse Reactions, Alerts Allergy Allergy Status Severity Reaction(s) Onset Inactive Treating Comm ents Source Name Type Date Date Clinician codeine codeine Active Memkezia Palacios Keflex Keflex Active Memkezia Palacios Family History Family Member Diagnosis Comments Start Date Stop Date Source Maternal grandmother Diabetes MD Sumeet grant Natural mother -Colon cancer MD Arya mitchell Natural mother Hypertension MD Pedro son Family member Bleeding Disorder MD Sumeet grant Family member Coronary artery And lara disease Family member Stroke MD Blackwell Family member VTE MD Blackwell Social History Social Habit Start Date Stop Date Quantity Comments Source History of tobacco Current smoker MD Blackwell use Sex Assigned At M MD Rob on Cigarettes smoked 2018-12-17 2018-12-17 MD Arya mitchell current (pack per 00:00:00 00:00:00 day) - Reported Cigarette pack-years 2018-12-17 2018-12-17 MD Sumeet grant 00:00:00 00:00:00 Tobacco use and 2018-12-17 2018-12-17 Former user MD Willis campos exposure 00:00:00 00:00:00 Alcohol intake 2018-12-17 2018-12-17 Ex-drinker MD Adam romero 00:00:00 00:00:00 (finding) Smoking Status Start Date Stop Date Source Former smoker 2018-12-17 00:00:00 2018-12-17 00:00:00 MD Willis campos Medications Ordered Filled Start Stop Current Ordering Indication Dosage Frequency Signature Comments Components Source Medication Medication Date Date Medication? Clinician (SIG) Name Name Ryanne 2018-02 No Notes: Memoria Mineral Oil -24 (Same l Enema 19:58: as:Fleet [place] Mineral Oil Enema) naproxen 2018-02 Yes 500 mg = 1 Mem oria 500 mg oral 1-24 tab, PO, l tablet 15:04: BID, X 7 [place] 00 day, # 14 tab, 0 Refill(s), Pharmacy: [id number] bisacodyl 2018-02 Yes 10 mg = 1 Mem oria 10 mg 1-24 supp, DE, l rectal 15:04: Daily, PRN Lilly nn suppository 00 Constipati on, # 10 supp, 0 Refill(s), Pharmacy: [id number] Docusate 2018-02 Yes 100 mg = 1 Mem oria Sodium 100 1-24 cap, PO, l MG Oral 15:04: BID, # 60 Lilly nn Capsule 00 cap, 0 [Colace] Refill(s), Pharmacy: [id number] bisacodyl 5 2018-02 Yes 10 mg = 2 M emoria mg oral 1-24 tab, PO, l enteric 15:04: Daily, PRN Herm ayush coated 00 Constipati tablet on, X 10 day, # 20 tab, 0 Refill(s), Pharmacy: [id number] POLYETHYLEN 2018-02 Yes 17 gm, PO, Memoria E GLYCOL 1-24 Daily, PRN l 3350 142 15:04: Constipati Her pinon MG/ML Oral 00 on, # 255 Solution gm, 0 [Miralax] Refill(s), Pharmacy: [id number] Lactulose 2018-02 No Notes: Memori a 667 MG/ML -24 (Same l Oral 01:11: as:Chronul [place] Solution 00 ac) Lactulose 2018-02 No Notes: Memori a 667 MG/ML 23 (Same l Oral 14:13: as:Chronul [place] Solution 00 ac) Dulcolax 2018-02 No Notes: Memoria Laxative -23 (Same As: l 12:41: Dulcolax, [place] 00 Bisco-Lax) Melatonin 3 2018-02 No Notes: Pepe micki MG Extended 1- (Same as: l Release 07:13: Melatonin) Herm ayush Tablet 00 Alprazolam 2018-02 No Notes: Memor ia 0.25 MG -22 With food l Oral Tablet 11:18: or milk Her pinon [Xanax] 00 (Same as: Xanax) Alprazolam 2018-02 No Notes: Memor ia 0.25 MG 1-21 With food l Oral Tablet 21:25: or milk Her pinon [Xanax] 00 (Same as: Xanax) pantoprazol 2018-02 No Notes: Pepe micki e 1-21 Tablet l 19:15: should not [place] 00 be chewed or crushed. (Same as: Protonix) Phenergan 2018-02 No Notes: Memori a 1-20 (Same as: l 00:41: Phenergan) [place] 00 Phenergan 2018-02 No 25 mg, Memori a 1-20 Route: IM, l 00:40: Q6H, Philip Dosing Weight 74.2, kg, PRN Nausea & Vomiting, Start date: 01/14/19 18:40:00 DIRECTOR OF SLOT OPERATIONS, Duration: 30 day, Stop date: 02/13/19 18:39:00 DIRECTOR OF SLOT OPERATIONS Dulcolax 2018-02 No Notes: Memoria Laxative -19 (Same As: l 16:12: Dulcolax, Philip Bisco-Lax) Levaquin 2018-02 No Notes: Do Pepe micki -19 not give l 12:00: w/antacids [place] , dairy pdt & minerals Take 1 hr before or 2 hr after dairy products metoprolol 2018-02 No Notes: Memor ia extended -18 (Same as: l release 20:49: Toprol XL) Herm ayush 00 May split tab, but do not crush. Albuterol 2018-02 No Notes: Memori a 0.833 MG/ML -18 (Same as: l / 20:49: Duoneb) [place] Ipratropium 00 [place] 0.167 MG/ML Inhalant Solution Docusate 2018-02 No 100 mg = 1 Mem oria Sodium 100 -18 cap, PO, l MG Oral 16:51: BID, 0 Philip Capsule 00 Refill(s) Famotidine 2018-02 Yes 20 mg = 1 Me moria 20 MG Oral 1-18 tab, PO, l Tablet 16:51: BID, 0 Philip 00 Refill(s) naproxen 2018-02 No 500 mg = 2 Mem oria 250 mg oral 1-18 tab, PO, l tablet 16:51: BID, 0 Philip 00 Refill(s) Dulcolax 2018-02 No Notes: Memoria Laxative 1-18 (Same As: l 15:00: Dulcolax, Philip 00 Correctol) (Do Not Crush) "Do Not Crush" Miralax 2018-02 No Notes: Memoria 1-18 Dissolve l 15:00: in 8 oz of [place] 00 water or juice. (Same as: Miralax) Naproxen 2018-02 No Notes: Memoria 1-17 (Same as: l 16:38: Naprosyn) [place] 00 Take with food. Famotidine 2018-02 No Notes: Memor ia 20 MG Oral 1-16 (Same as: l Tablet 23:00: Pepcid) [place] 00 Levofloxaci 2018-02 No Notes: Pepe micki n 1-16 (Same l 07:00: as:Levaqui [place] 00 n) Docusate 2018-02 No Notes: Memoria Sodium 100 1-15 (Same as: l MG Oral 23:00: Colace) [place] Capsule 00 (Do Not Crush) Acetaminoph 2018-02 No Notes: Do M emoria en 325 MG / 1-15 not exceed l Hydrocodone 19:50: 4gm/day of [place] Bitartrate 00 acetaminop 10 MG Oral hen. Tablet (Same as: [[place] 10/325] 325/10) clopidogrel 2018-02 No Notes: Pepe micki 1-15 (Same As: l 15:02: Plavix) Philip 00 Flomax 2018-02 No Notes: Memoria 1-15 (Same As: l 15:02: Flomax) Philip 00 "Do Not Crush" Morphine 2018-02 No 2 mg, 1 Memori a 1-15 mL, Route: l 11:04: IVP, Drug form: SOLN, Q4H, Dosing Weight 74.2, kg, PRN Pain Score 7-10, Start date: 01/10/19 5:04:00 DIRECTOR OF SLOT OPERATIONS, Duration: 30 day, Stop date: 02/09/19 5:03:00 DIRECTOR OF SLOT OPERATIONS, 0 Streptococc 2018-02 No Notes: Pepe micki us 1-15 Shake well l pneumoniae 09:35: prior to Her pinon serotype 1 51 use (Same capsular as: antigen Prevnar diphtheria 13) [id number] protein conjugate vaccine / Streptococc us pneumoniae serotype 14 capsular antigen diphtheria [id number] protein conjugate vaccine / Streptococc us pneumoniae serotype 18C capsular antigen d metoprolol 2018-02 Yes 50 mg = 1 Me moria 50 mg oral 1-15 tab, PO, l tablet, 09:19: Daily, # Clifford n extended 00 30 tab, 0 release Refill(s) clopidogrel 2018-02 Yes 75 mg = 1 M emoria 75 mg oral 1-15 tab, PO, l tablet 09:19: Daily, # [place] 00 30 tab, 0 Refill(s) atorvastati 2018-02 Yes 80 mg, PO, Memoria n 1-15 Daily, 0 l 09:19: Refill(s) [place] 00 Tamsulosin 2018-02 Yes 0.4 mg = 1 M emoria hydrochlori 1-15 cap, PO, l de 0.4 MG 09:19: Daily, # Herm ayush Oral 00 30 cap, 0 Capsule Refill(s) [Flomax] Albuterol 2018-02 No Notes: Memori a 0.833 MG/ML 1-15 (Same as: l / 09:00: Duoneb) Philip Ipratropium 00 [place] 0.167 MG/ML Inhalant Solution Ondansetron 2018-02 No Notes: Pepe micki 1-15 (Same as: l 08:36: Zofran) [place] 00 MEDICATION WASTE Product Size: 4 mg Product Wasted: ___ mg Albuterol 2018-02 No Notes: SEE Me moria 0.83 MG/ML 1-15 RT l Inhalant 08:36: DOCUMENTAT Her pinon Solution 00 ION (Same as: Proventil) NS 1,000 mL 2018-02 No 1,000 mL, M emoria 1-15 Rate: 60 l 08:33: ml/hr, Philip 00 Infuse over: 16.7 hr, Route: IV, Dosing Weight 74.2 kg, Total Volume: 1,000, Start date: 01/10/19 2:33:00 DIRECTOR OF SLOT OPERATIONS, Duration: 1 doses or times, Stop date: 01/10/19 19:14:00 DIRECTOR OF SLOT OPERATIONS, 1.91, m2, 0 Morphine 2018-02 No Notes: Memoria 1-15 (Same l 07:20: as:MORPhin Philip 00 e Sulfate) Zofran 2018-02 No Notes: Memoria 1-15 (Same as: l 07:20: Zofran) [place] 00 MEDICATION WASTE Product Size: 4 mg Product Wasted: ___ mg Levaquin 2018-02 No Notes: Memoria 1-15 (Same l 07:17: as:Levaqui Philip 00 n) Zofran 2018-02 No Notes: Memoria 1-15 (Same as: l 04:21: Zofran) [place] 00 MEDICATION WASTE Product Size: 4 mg Product Wasted: ___ mg Saline 2018-02 No Notes: Memoria Flush 0.9% -15 (Same as: l 04:20: BD Philip 00 Posiflush) Sodium 2018-02 No 1,000 mL, Memori a Chloride -15 2,000 l 0.9% 04:20: ml/hr, Philip (Bolus) IV 00 Infuse Over: 0.5 hr, Route: IV, 1,000, Drug form: INJ, ONCE, Priority: STAT, Dosing Weight 74.2 kg, Start date: 01/09/19 22:20:00 DIRECTOR OF SLOT OPERATIONS, Stop date: 01/09/19 22:20:00 DIRECTOR OF SLOT OPERATIONS, 0 metoprolol 2018-02 Yes 50mg Take 50 mg M D tartrate 1-13 by mouth Anderso (LOPRESSOR) 17:53: twice n 50 mg 22 daily. tablet aspirin 81 2018-02 Yes 81mg Take 81 mg M D mg EC 1-13 by mouth Anderso tablet 17:53: daily. n 22 traMADol 2018-02 Yes 50mg Take 50 mg MD (ULTRAM) 50 1-13 by mouth Arya rso mg tablet 17:53: every 6 n 22 (six) hours as needed. bacitracin 2018-02 Yes Apply MD 500 1-13 topically Anderso unit/gram 17:53: to n ointment 22 affected area(s) twice daily. famotidine 2018-02 Yes 20mg Take 20 mg M D (PEPCID) 20 1-13 by mouth Arya rso mg tablet 17:53: as needed. n 22 diphenhydrA 2018-02 Yes 50mg Take 50 mg MD MINE 1-13 by mouth Anderso (BENADRYL) 17:53: nightly as n 25 mg 22 needed. 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 n 1.1 % 00 of scalp [place] dental teeth with cream cream and spit out as directed. (Do not eat, drink or rinse for 30 minutes). senna 2018-02 2019- No 1{tbl} Take 1 MD (SENOKOT) 0-21 10-21 tablet by Arya rso 8.6 mg 17:56: 00:00 mouth 2 n tablet 48 :00 (two) times a day as needed. tamsulosin 2018-02 Yes .4mg Take 0.4 MD (FLOMAX) 0-09 mg by Anderso 0.4 mg 24 00:00: mouth n hr capsule 00 twice daily. methocarbam 2018- No Encounter 500mg Take 1 MD ol 10-17- for other tablet Anderso (ROBAXIN) 00:00: 00:00 preprocedur (500 mg) n 500 mg 00 :00 al by mouth tablet examination every 8 (eight) hours as needed for muscle spasms. oxyCODONE 2018- No Encounter 5mg Take 1 MD (ROXICODONE 10-17 for other tablet (5 Anderso ) 5 mg 00:00: 00:00 preprocedur mg) by n immediate 00 :00 al mouth release examination every 6 tablet (six) hours as needed for moderate pain. acetaminoph 2018- No Encounter 1000mg Take 2 MD en 10-15- for other tablets Darron o (TYLENOL) 00:00: 00:00 preprocedur (1,000 mg) n 500 mg 00 :00 al by mouth tablet examination every 6 (six) hours. docusate 2018- No Encounter 100mg Take 1 MD sodium 8- 09-30 for other capsule Arya rso (COLACE) 00:00: 00:00 preprocedur (100 mg) n 100 mg 00 :00 al by mouth 2 capsule examination (two) times a day as needed for constipati on. mupirocin 2018- No Encounter Apply M D (BACTROBAN) 10-15 for other topically Anderso 2% ointment 00:00: 00:00 preprocedur to n 00 :00 al affected examination area(s) twice daily. methocarbam 2018- No Encounter 500mg Take 1 MD ol 10-15 for other tablet Anderso (ROBAXIN) 00:00: 00:00 preprocedur (500 mg) n 500 mg 00 :00 al by mouth tablet examination every 8 (eight) hours as needed for muscle spasms. oxyCODONE 2018- No Encounter 5mg Take 1 MD (ROXICODONE 10-15 for other tablet (5 Anderso ) 5 mg 00:00: 00:00 preprocedur mg) by n immediate 00 :00 al mouth release examination every 6 tablet (six) hours as needed for moderate pain. celecoxib Yes Squamous 200mg Take 1 M D (CeleBREX) 09-19 cell capsule Darron o 200 mg 00:00: carcinoma (200 mg) n capsule 00 of scalp by mouth 2 (two) times a day as needed for moderate pain. nitroglycer 2019- No Place MD in 09-02 under the Anderso (NITROSTAT) 00:00: 00:00 tongue as n 0.4 mg SL 00 :00 needed. tablet mupirocin 2018- No Apply MD (BACTROBAN) 08-19 topically An derso 2% ointment 00:00: 00:00 to n 00 :00 affected area(s) daily. atorvastati Yes 1{tbl} Take 1 MD n (LIPITOR) 3-14 tablet by And erso 80 mg 00:00: mouth n tablet 00 daily. clopidogrel Yes 1{tbl} Take 1 MD (PLAVIX) 75 3-14 tablet by And erso mg tablet 00:00: mouth n 00 daily. Vital Signs Vital Name Observation Time Observation Value Comments Source Temperature Oral (F) 2019-01-19 21:26:00 97.6 F [facility] [place] Heart Rate 2019-01-19 21:26:00 [facility] [place] Respitory Rate 2019-01-19 21:26:00 Memori al Philip Systolic (mm Hg) 2019-01-19 21:26:00 Pepe rial [place] Diastolic (mm Hg) 2019-01-19 21:26:00 Mem orial Philip Temperature Oral (F) 2019-01-19 17:23:00 97.9 F [facility] [place] Heart Rate 2019-01-19 17:23:00 [facility] [place] Respitory Rate 2019-01-19 17:23:00 Memori al Philip Systolic (mm Hg) 2019-01-19 17:23:00 Pepe rial [place] Diastolic (mm Hg) 2019-01-19 17:23:00 Mem orial [place] Temperature Oral (F) 2019-01-19 13:47:00 97.6 F [facility] [place] Heart Rate 2019-01-19 13:47:00 [facility] [place] Respitory Rate 2019-01-19 13:47:00 Memori al Philip Systolic (mm Hg) 2019-01-19 13:47:00 Pepe rial Philip Diastolic (mm Hg) 2019-01-19 13:47:00 Mem orial Philip Height 2019-01-10 12:17:00 170.18 cm [facility] [place] Weight 2019-01-10 03:42:00 [facility] Systolic blood 2019-01-08 17:50:00 136 mm[Hg] pressure Diastolic blood 2019-01-08 17:50:00 67 mm[Hg] MD Shahla mcdanielson pressure Heart rate 2019-01-08 17:50:00 82 /min MD Willis campos Body temperature 2019-01-08 17:50:00 36.61 Jessica MD Sumeet senaon Respiratory rate 2019-01-08 17:50:00 17 /min MD Sumeet grant Oxygen saturation in 2019-01-08 17:50:00 99 /min MD Blackwell Arterial blood by Pulse oximetry Body weight 2019-01-08 17:49:00 76.1 kg MD Willis campos BMI 2019-01-08 17:49:00 26.33 kg/m2 MD Willis campos Body height 2018-10-30 23:27:44 170 cm MD Willis son Procedures Procedure Date / Time Performed Performing Clinician [facility] e ORTHOPANTOGRAM 2018-12-17 17:21:12 Carlyle Pablo MD Willisjax campos XR FEMUR 2 VW RIGHT 2018-12-17 13:43:08 Cesar Haq MD And lara BASIC METABOLIC PANEL, CALCIUM 2018-11-12 08:40:00 Gerardo Sumner MD IONIZED GLUCOSE LEVEL 2018-11-12 08:40:00 SimmonsRamón MD BLOOD UREA NITROGEN 2018-11-12 08:40:00 Ramón Simmons MD Willis [facility] ELECTROLYTE PANEL 2018-11-12 08:40:00 SimmnosRamón MD SERUM CREATININE 2018-11-12 08:40:00 Ramón Simmons MD .GLOMERULAR FILTRATION RATE 2018-11-12 08:40:00 Ramón Simmons MD CALCIUM LEVEL IONIZED 2018-11-12 08:40:00 Ramón Simmons MD And lara XR FEMUR 2 VW RIGHT 2018-11-11 17:34:21 Cesar Haq MD And lara BASIC METABOLIC PANEL, CALCIUM 2018-11-11 08:26:00 Gerardo Sumner MD IONIZED GLUCOSE LEVEL 2018-11-11 08:26:00 Ramón Simmons MD BLOOD UREA NITROGEN 2018-11-11 08:26:00 Ramón Simmons MD [facility] ELECTROLYTE PANEL 2018-11-11 08:26:00 SimmonsRamón ashley MD SERUM CREATININE 2018-11-11 08:26:00 Ramón Simmons MD .GLOMERULAR FILTRATION RATE 2018-11-11 08:26:00 Ramón Simmons MD CALCIUM LEVEL IONIZED 2018-11-11 08:26:00 Ramón Simmons MD And alra HOLTER MONITOR - 24 HOUR 2018-11-11 00:00:00 Cesar Haq BASIC METABOLIC PANEL, CALCIUM 2018-11-10 08:25:00 Gerardo Sumner MD IONIZED GLUCOSE LEVEL 2018-11-10 08:25:00 Ramón Simmons MD BLOOD UREA NITROGEN 2018-11-10 08:25:00 Ramón Simmons MD [facility] ELECTROLYTE PANEL 2018-11-10 08:25:00 Ramón Simmons MD SERUM CREATININE 2018-11-10 08:25:00 Ramón Simmons MD .GLOMERULAR FILTRATION RATE 2018-11-10 08:25:00 Ramón Simmons MD CALCIUM LEVEL IONIZED 2018-11-10 08:25:00 Ramón Simmons MD And lara BASIC METABOLIC PANEL, CALCIUM 2018-11-09 08:17:00 Gerardo Sumner MD IONIZED GLUCOSE LEVEL 2018-11-09 08:17:00 SimmonsRamón MD BLOOD UREA NITROGEN 2018-11-09 08:17:00 SimmonsRamón MD Willis son ELECTROLYTE PANEL 2018-11-09 08:17:00 SimmonsRamón MDo nick SERUM CREATININE 2018-11-09 08:17:00 SimmonsRamón MD .GLOMERULAR FILTRATION RATE 2018-11-09 08:17:00 Ramón Simmons MD CALCIUM LEVEL IONIZED 2018-11-09 08:17:00 Ramón Simmons MD And lara BASIC METABOLIC PANEL, CALCIUM 2018-11-08 07:01:00 Gerardo Sumner MD IONIZED GLUCOSE LEVEL 2018-11-08 07:01:00 SimmonsRamón MD BLOOD UREA NITROGEN 2018-11-08 07:01:00 SimmonsRamón MD Willis son ELECTROLYTE PANEL 2018-11-08 07:01:00 Ramón Simmons MDo nick SERUM CREATININE 2018-11-08 07:01:00 Ramón Simmons MD .GLOMERULAR FILTRATION RATE 2018-11-08 07:01:00 Ramón Simmons MD CALCIUM LEVEL IONIZED 2018-11-08 07:01:00 Ramón Simmons MD And lara BASIC METABOLIC PANEL, CALCIUM 2018-11-07 07:56:00 Gerardo Sumner MD IONIZED GLUCOSE LEVEL 2018-11-07 07:56:00 SimmonsRamón MD BLOOD UREA NITROGEN 2018-11-07 07:56:00 Ramón Simmons MD Willis son ELECTROLYTE PANEL 2018-11-07 07:56:00 SimmonsRamón MD SERUM CREATININE 2018-11-07 07:56:00 Ramón Simmons MD .GLOMERULAR FILTRATION RATE 2018-11-07 07:56:00 SimmonsRamón MD CALCIUM LEVEL IONIZED 2018-11-07 07:56:00 Ramón Simmons MD And erson VITAMIN B12 LEVEL 2018-11-06 07:50:00 Yanira Davila MD VITAMIN B1 LEVEL, WHOLE BLOOD 2018-11-06 07:50:00 Yanira Davila MD URINE CULTURE 2018-11-05 18:22:00 Cesar Haq MD BASIC METABOLIC PANEL, CALCIUM 2018-11-03 15:18:00 Raghavendra Almanza MD IONIZED GLUCOSE LEVEL 2018-11-03 15:18:00 Ramón Simmons MD BLOOD UREA NITROGEN 2018-11-03 15:18:00 Ramón Simmosn [facility] ELECTROLYTE PANEL 2018-11-03 15:18:00 Ramón Simmons MD SERUM CREATININE 2018-11-03 15:18:00 Ramón Simmons MD .GLOMERULAR FILTRATION RATE 2018-11-03 15:18:00 Ramón Simmons MD CALCIUM LEVEL IONIZED 2018-11-03 15:18:00 Ramón Simmons MD And erson URINALYSIS WITH MICROSCOPIC IF 2018-11-03 02:18:00 Raghavendra Almanza MD INDICATED URINALYSIS MICROSCOPIC 2018-11-03 02:18:00 Ramón Simmons MD derson MRI BRAIN W WO CONTRAST 2018-11-02 10:40:37 Cesar Haq MD CHLORIDE LEVEL 2018-11-02 08:00:00 Gerardo Sumner MD CARBON DIOXIDE LEVEL 2018-11-02 08:00:00 Gerardo Sumner MD Arya rson BLOOD UREA NITROGEN 2018-11-02 08:00:00 Gerardo Sumner MD [facility] SERUM CREATININE 2018-11-02 08:00:00 Gerardo Sumner MD GLUCOSE, RANDOM 2018-11-02 08:00:00 Gerardo Sumner MD MAGNESIUM LEVEL 2018-11-02 08:00:00 Gerardo Sumner MD CALCIUM LEVEL IONIZED 2018-11-02 08:00:00 Gerardo Sumner MD And lara COMPLETE BLOOD COUNT W/ 2018-11-02 08:00:00 Gerardo Sumner MD nderson DIFFERENTIAL SODIUM LEVEL 2018-11-02 08:00:00 Gerardo Sumner MD POTASSIUM LEVEL 2018-11-02 08:00:00 Gerardo Sumner MD SERUM CREATININE 2018-11-02 08:00:00 Ramón Simmons MD .GLOMERULAR FILTRATION RATE 2018-11-02 08:00:00 Ramón Simmons MD Results CBC 2018-11-02 08:00:00 Ramón Simmons MD MANUAL DIFFERENTIAL 2018-11-02 08:00:00 Ramón Simmons MD ANION GAP 2018-11-02 08:00:00 Ramón Simmons MD CHLORIDE LEVEL 2018-11-01 07:55:00 SlipakGerardo MD CARBON DIOXIDE LEVEL 2018-11-01 07:55:00 SlipGerardo gonzalez MD Arya rs BLOOD UREA NITROGEN 2018-11-01 07:55:00 Gerardo Sumner MD [facility] SERUM CREATININE 2018-11-01 07:55:00 Gerardo Sumner MD GLUCOSE, RANDOM 2018-11-01 07:55:00 SlipGerardo gonzalez MD MAGNESIUM LEVEL 2018-11-01 07:55:00 SlipGerardo gonzalez MD CALCIUM LEVEL IONIZED 2018-11-01 07:55:00 Gerardo Sumner MD And erson COMPLETE BLOOD COUNT W/ 2018-11-01 07:55:00 Gerardo Sumner MDrson DIFFERENTIAL SODIUM LEVEL 2018-11-01 07:55:00 SlipGerardo gonzalez MD POTASSIUM LEVEL 2018-11-01 07:55:00 Gerardo Sumner MD SERUM CREATININE 2018-11-01 07:55:00 Ramón Simmons MD .GLOMERULAR FILTRATION RATE 2018-11-01 07:55:00 Ramón Simmons MD Results CBC 2018-11-01 07:55:00 Ramón Simmons MD MANUAL DIFFERENTIAL 2018-11-01 07:55:00 Raómn Simmons MD ANION GAP 2018-11-01 07:55:00 Ramón Simmons MD US CAROTID BILATERAL 2018-10-31 21:03:03 Cesar Haq MDson MAGNESIUM LEVEL 2018-10-31 07:49:00 SlipGerardo gonzalez MD CALCIUM LEVEL IONIZED 2018-10-31 07:49:00 Gerardo Sumner MD And erson COMPLETE BLOOD COUNT W/ 2018-10-31 07:49:00 Gerardo Sumner MDrson DIFFERENTIAL CHLORIDE LEVEL 2018-10-31 07:49:00 Gerardo Sumner MD CARBON DIOXIDE LEVEL 2018-10-31 07:49:00 Gerardo Sumner MD Arya rson BLOOD UREA NITROGEN 2018-10-31 07:49:00 Gerardo Sumner MD Willis son SERUM CREATININE 2018-10-31 07:49:00 Gerardo Sumner MD GLUCOSE, RANDOM 2018-10-31 07:49:00 Gerardo Sumner MD SODIUM LEVEL 2018-10-31 07:49:00 Gerardo Sumner MD POTASSIUM LEVEL 2018-10-31 07:49:00 Gerardo Sumner MD Results CBC 2018-10-31 07:49:00 Ramón Simmons MD MANUAL DIFFERENTIAL 2018-10-31 07:49:00 Ramón Simmons MD Willisjax campos SERUM CREATININE 2018-10-31 07:49:00 Edin Soto MD .GLOMERULAR FILTRATION RATE 2018-10-31 07:49:00 Edin Soto MD ANION GAP 2018-10-31 07:49:00 Edin Soto MD EKG, 12-LEAD (PORTABLE) 2018-10-31 00:00:00 Cesar Haq MD XR FEMUR 2 VW RIGHT 2018-10-30 21:08:16 Edin Soto MD FL PORTABLE FLUOROSCOPY 2018-10-30 20:33:34 Edin Soto MD nderson FLUOROSCOPY 2018-10-30 17:48:00 Ramón Simmons MD OPEN REDUCTION OF 2018-10-30 17:48:00 Ramón Simmons MD INTERTROCHANTERIC FRACTURE OF FEMUR WITH FIXATION USING CERCLAGE AND INTRAMED IMPL MAGNESIUM LEVEL 2018-10-30 07:50:00 Gerardo Sumner MD CALCIUM LEVEL IONIZED 2018-10-30 07:50:00 Gerardo Sumner MD And lara COMPLETE BLOOD COUNT W/ 2018-10-30 07:50:00 Gerardo Sumner MDrson DIFFERENTIAL Results CBC 2018-10-30 07:50:00 Ramón Simmons MD MANUAL DIFFERENTIAL 2018-10-30 07:50:00 Ramón Simmons MD OSI HIP 2018-10-30 01:51:15 Roshan Sauceda MD XR FEMUR 2 VW RIGHT 2018-10-30 00:27:49 Zacarias Santiago MD rsdion XR PELVIS 1 OR 2 VW PORTABLE 2018-10-30 00:26:00 Gadiel Santiago MD COMPLETE BLOOD COUNT W/ 2018-10-29 22:30:00 Zacarias Santiago MD DIFFERENTIAL COMPREHENSIVE METABOLIC PANEL 2018-10-29 22:30:00 Adam Santiago MD TYPE AND SCREEN 2018-10-29 22:30:00 Zacarias Santiago MD PROTHROMBIN TIME 2018-10-29 22:30:00 Zacarias Santiagoerso nick PARTIAL THROMBOPLASTIN TIME 2018-10-29 22:30:00 Zacarias Santiago MD ABORH 2018-10-29 22:30:00 Adam Gonzalez MD ANTIBODY SCREEN 2018-10-29 22:30:00 Adam Gonzalez MD Results CBC 2018-10-29 22:30:00 Adam Gonzalez MD MANUAL DIFFERENTIAL 2018-10-29 22:30:00 Adam Gonzalez MD GLUCOSE LEVEL 2018-10-29 22:30:00 Adam Gonzalez MD BLOOD UREA NITROGEN 2018-10-29 22:30:00 Adam Gonzalez MD ELECTROLYTE PANEL 2018-10-29 22:30:00 Adam Gonzalez MD SERUM CREATININE 2018-10-29 22:30:00 Adam Gonzalez MD .GLOMERULAR FILTRATION RATE 2018-10-29 22:30:00 Adam Gonzalez MD CALCIUM LEVEL TOTAL 2018-10-29 22:30:00 Adam Gonzalez MD ALBUMIN LEVEL 2018-10-29 22:30:00 Adam Gonzalez MD ALKALINE PHOSPHATASE 2018-10-29 22:30:00 Adam Gonzalez MD Arya rson ALANINE AMINOTRANSFERASE 2018-10-29 22:30:00 Adam Gonzalez MD ASPARTATE AMINOTRANSFERASE 2018-10-29 22:30:00 Adam Gonzalez TOTAL PROTEIN 2018-10-29 22:30:00 Adam Gonzalez MD FRACTIONATED BILIRUBIN 2018-10-29 22:30:00 Adam Gonzalez MD An derson CLOT EXPIRATION DATE 2018-10-29 22:30:00 Adam Gonzalez MD rsdion TMP INTERPRETATION ANTIBODY 2018-10-29 22:30:00 Adam Gonzalez MD SCREEN NEGATIVE XR ABDOMEN 1 VW PORTABLE 2018-10-15 18:15:03 Torsten Willis MD COMPLETE BLOOD COUNT W/ 2018-10-12 07:33:00 Jordin Collins MDrsdion DIFFERENTIAL ELECTROLYTE PANEL 2018-10-12 07:33:00 Jordin Collins MDo nick MAGNESIUM LEVEL 2018-10-12 07:33:00 Jordin Collins MD PHOSPHORUS LEVEL 2018-10-12 07:33:00 Evens August MD Anderso n Results CBC 2018-10-12 07:33:00 Roshan Sauceda MD MANUAL DIFFERENTIAL 2018-10-12 07:33:00 Roshan Sauceda MD Arya rsdion COMPLETE BLOOD COUNT W/ 2018-10-11 08:22:00 Jordin Collins MDrsdion DIFFERENTIAL ELECTROLYTE PANEL 2018-10-11 08:22:00 Jordin Collins MD Anderso n MAGNESIUM LEVEL 2018-10-11 08:22:00 Jordin Collins MD PHOSPHORUS LEVEL 2018-10-11 08:22:00 Evens August MD Anderso n Results CBC 2018-10-11 08:22:00 Roshan Sauceda MD MANUAL DIFFERENTIAL 2018-10-11 08:22:00 Roshan Sauceda MD Arya rson COMPLETE BLOOD COUNT W/ 2018-10-10 21:25:00 Mi Yanez MD DIFFERENTIAL BASIC METABOLIC PANEL, CALCIUM 2018-10-10 21:25:00 iM Yanez MD TOTAL MAGNESIUM LEVEL 2018-10-10 21:25:00 Mi Yanez MD Results CBC 2018-10-10 21:25:00 Charles Moreno MD MANUAL DIFFERENTIAL 2018-10-10 21:25:00 Charles Moreno MD [facility] GLUCOSE LEVEL 2018-10-10 21:25:00 Charles Moreno MD BLOOD UREA NITROGEN 2018-10-10 21:25:00 Charles Moreno MD [facility] ELECTROLYTE PANEL 2018-10-10 21:25:00 Charles Moreno MD nick SERUM CREATININE 2018-10-10 21:25:00 Charles Moreno MD .GLOMERULAR FILTRATION RATE 2018-10-10 21:25:00 Charles Moreno MD CALCIUM LEVEL TOTAL 2018-10-10 21:25:00 Charles Moreno MD [facility] PHOSPHORUS LEVEL 2018-10-10 21:25:00 Charles oMreno MD SURGICAL HISTORIC 2018-10-10 17:00:00 Conversion, Pathology MD Sumeet grant PATHOLOGY SURGICAL SPECIMEN 2018-10-10 13:49:51 Roshan Sauceda MD INTERPRETATION EXCISION OF MALIGNANT LESION 2018-10-10 11:15:00 Roshan Sauceda MD OF SCALP FREE MUSCLE OR MYOCUTANEOUS 2018-10-10 11:15:00 Charles Moreno MD FLAP WITH MICRVASCULAR ANASTOMOSIS SPLIT THICKNESS SKIN GRAFT OF 2018-10-10 11:15:00 Charles Moreno MD TRUNK/ARM OR LEG Encounters Start End Encounter Admission Attending Care Care Encounter Source Date/Time Date/Time Type Type Clinicians Facility Department ID 2019-01-09 2019-01-19 Outpatient EDGAR Ag [facility] [id number] 21:18:46 18:08:00 Barbara 00 Flor 2019-01-10 2019-01-10 Inpatient E FB MED [facility] 15:16:00 01:33:00 Results Test Description Test Time Test Comments Results Result Comments Source URINE AND STOOL 2019-01-16 Yellow [facility] 00:22:00 *NA*(01/15/19 [place] 6:22 PM) URINE AND STOOL 2019-01-16 Clear [facility] 00:22:00 (01/15/19 6:22 Philip PM) URINE AND STOOL 2019-01-16 00:22:00 Test Item Value Reference Range Interpretation Comme nts UA Spec Grav (test code = UA Spec Grav) 1.023 1 [facility] [id number] 00:22:00 Test Item Value Reference Range Interpretation Comments UA pH (test code = UA pH) 5.0 1 5.0-8.0 [facility] [id number] 00:22:00Negative (01/15/19 6:22 PM) [facility] [id number] 00:22:00Negative *NA*(01/15/19 6:22 PM)[facility] VPSAO3874-76-70 00:22:00Negative *NA*(01/15/19 6:22 PM)[facility] OWPPW4037-07-63 00:22:00Negative (01/15/19 6:22 PM)[facility] IHLFJ6302-18-65 00:22:00Negative (01/15/19 6:22 PM) [facility] QIGKQ1329-59-30 00:22:00Negative (01/15/19 6:22 PM) [facility] WEUXR7639-63-10 00:22:00None Seen (01/15/19 6:22 PM) [facility] BXVFH4546-23-64 00:22:001[facility] FYJMS6359-57-46 00:22:001[facility]annCHEM VVYXU9264-78-93 10:48:002.3 [facility] YKYQF7583-96-73 10:48:003.0[facility] HermannELECTROLYTES 2019-01-14 10:48:0010.3[facility] OdhiihuGXZLQVMOKITP8958-38-88 10:48:46158 [facility] XxvxhpgWVGQWCKGPFSH6609-73-63 10:48:0015[facility] HermannELECTROLYTES 2019-01-14 10:48:000.69[facility] TaftvycPZXGUHPVLWFC0776-02-32 10:48:83612 [facility] EmueqfcKAFMDLTKRNIN4446-05-70 10:48:004.3[facility]annELECTROLYTES 2019-01-14 10:48:74120Ykondpbg IuitnhdRRWJBETBVYNG5991-67-98 10:48:0026[facility] FziclcxPSAWYFUJZGNR1521-61-53 10:48:008.9[facility] WpkxcdjUNDODNDLEOEP6118-76-22 10:48:0087[facility] AxvobacEXPNPFQQUX6028-91-54 10:48:002.6[facility] [place] MOTIFFXJFM7404-55-36 10:48:003.79[facility] DwzrhkoDCNRRSCZKV3403-36-57 10:48:00 11.1[facility] NlwyzstDBWJWRVXZC4679-63-40 10:48:0034.9[facility]annHEMATOLOGY 2019-01-14 10:48:0092.0[facility] DfvfxfrWRIEGUWACE2534-90-66 10:48:00 Test Item Value Reference Range Interpretation Comments MCH (test code = MCH) 29.3 pg 27.0-31.0 [facility] JzpzulxEIPPGJEDRK8717-63-27 10:48:0031.8[facility]annHEMATOLOGY 2019-01-14 10:48:0016.5[facility] NbbddsiXIJIHMAYJH0508-59-76 10:48:02885Bysnlckl WafnpbkODYDAAGYFM8373-75-48 10:48:008.3[facility] WskmnacRPAZEAJWUO7293-16-05 10:48:0066.8[facility] XtmwqrnKASMQWHNXJ2251-21-81 10:48:0012.6[facility] Philip HVRWVWWDXS5300-10-08 10:48:008.4[facility] ZdkrusiNAEZFIMZBW0594-83-99 10:48:00 11.5[facility] TiogkovJFACWQKCBG9002-11-69 10:48:000.7[facility]annHEMATOLOGY 2019-01-14 10:48:001.7[facility] JplsznaNAHSVEZRDZ5961-83-03 10:48:000.3[facility] VtvtjgmXXBUQTSEGJ0736-88-39 10:48:000.2[facility] PfwgvauWWWMIRUTAR5663-33-23 10:48:000.3[facility] HermannCHEM MTXOM9768-40-17 10:15:002.0[facility]annCHEM IARLR5264-64-42 10:15:003.6[facility]annCHEM TYLMG6404-84-19 10:15:10561 [facility]CHE[facility] UHBVC6516-69-37 10:15:009[facility]annCHEM PANEL 2019-01-13 10:15:000.71[facility]annCHEM ZYSZP3057-98-47 10:15:43902Ecglazjw HermannCHEM BWQIW8270-34-67 10:15:004.2[facility]annCHEM KJRSI9953-69-92 10:15:01297Naigqlvl HermannCHEM BPVFL2505-17-17 10:15:0027[facility]annCHEM TAHSD2313-97-77 10:15:0010.2[facility]annCHEM VYLIU4174-88-93 10:15:008.9 [facility] OAQPF0260-62-57 10:15:0086[facility]annHEMATOLOGY 2019-01-13 10:15:0063.6[facility] CmczgtoTMUXGOEDCW0819-96-51 10:15:0019.5[facility] TcfffrcOMVXWBCDBD9856-31-34 10:15:0011.0[facility] TwlsngjWFJRFLGKZA9317-19-14 10:15:005.2[facility] QtbciqjUSVCLUCYOV2158-39-24 10:15:000.7[facility] [place] KVNAQFOIHO5332-16-21 10:15:001.4[facility] YwetoidXXJIKQPAFR4178-32-07 10:15:000.4 [facility] TjopbsbTCJKKWDEAB6408-20-06 10:15:000.2[facility]annHEMATOLOGY 2019-01-13 10:15:000.1[facility] SnfmirsFVRRYUGQXS5326-08-95 10:15:002.2[facility] WhdsijzSXOJHLYVMT5800-93-79 10:15:003.60[facility] NyovactRBAARWURBG2911-52-57 10:15:0010.8[facility] AcxbmwoUDCCRLPMWR8990-58-58 10:15:0033.4[facility] [place] KCJRPAKBKY6714-84-92 10:15:0092.9[facility] UqvvdckWIFZKRLCFQ4973-54-75 10:15:00 Test Item Value Reference Range Interpretation Comments MCH (test code = MCH) 30.1 pg 27.0-31.0 [facility] KtljnlyCZXUAPVDMY6634-43-05 10:15:0032.4[facility]annHEMATOLOGY 2019-01-13 10:15:0017.0[facility] IhfxertZTUXTTKLZT8728-84-68 10:15:56204Gkglqzvn KreknpvSBZJXGXJQF3551-50-50 10:15:008.0[facility] HermannCHEM YKBZJ9254-58-51 10:43:53111Nrrriqwe HermannCHEM THRNI8805-45-46 10:43:007[facility]annCHEM SPTUF2497-65-23 10:43:000.69[facility]annCHEM ZAWNN7750-55-00 10:43:38606 [facility]annCHE[facility] XHLRS0674-98-99 10:43:004.3[facility]annCHEM PANEL 2019-01-12 10:43:72921Dxewvbev HermannCHEM KMZWE2376-03-33 10:43:0026[facility] HermannCHEM ISYIW3989-89-26 10:43:008.5[facility] HermannCHEM SAXAZ3691-59-76 10:43:0087[facility] HermannCHEM VBTMW9318-45-42 10:43:0011.3[facility] HermannCHEM FXXDE9753-81-49 10:43:001.9[facility] HermannCHEM PEQMJ5585-55-43 10:43:002.8 Memorial BdagqinFJYPIBIQHD0598-90-91 10:43:003.7[facility] HermannHEMATOLOGY 2019-01-12 10:43:003.68[facility] ZhsmwgaVRGWNCRWDC4811-19-20 10:43:0011.0[facility] RvqfqyjGYCKOQMVSF4078-90-24 10:43:0033.9[facility] JdxhnmzOKGDTTAPHA1894-29-90 10:43:0092.1[facility] ItlnqeiVIWXDSQXNW3876-70-57 10:43:00 Test Item Value Reference Range Interpretation Comments MCH (test code = MCH) 30.0 pg 27.0-31.0 [facility] KdzxswuEVVNTFBKBX0023-85-24 10:43:0032.6[facility] HermannHEMATOLOGY 2019-01-12 10:43:0016.7[facility] SgwbvqkQHTPSHSICT6436-56-37 10:43:33402Pdaqfsnx IiaquinDPLWHIQTPQ8339-83-16 10:43:008.2[facility] LmxlouaEXVBYFBJDH0021-84-16 10:43:0076.8[facility] LpklogqYTIVIIEBUS8823-15-11 10:43:009.9[facility] [place] KICWAEJIDF8003-94-64 10:43:0011.8[facility] YegtmsnPJSQYDGWKQ9081-32-45 10:43:00 1.2[facility] LeuvsypONTAPDDNQL7157-96-44 10:43:000.3[facility]annHEMATOLOGY 2019-01-12 10:43:002.8[facility] BmdubsfXFHBSGUMTW2633-94-20 10:43:000.4[facility] QwllvmtBRYTIBBVVD0667-22-38 10:43:000.4[facility] HermannBACTERIAL - SEROLOGY 2019-01-10 09:33:00Urine *NA*(01/10/19 3:33 AM)[facility]annBACTERIAL - CDFVWMZF9627-64-39 09:33:00Negative (01/10/19 3:33 AM)[facility] MSZGT0605-97-63 09:33:00Yellow *NA*(01/10/19 3:33 AM)[facility] RXXZG7172-34-75 09:33:00Clear (01/10/19 3:33 AM)[facility] STOOL 2019-01-10 09:33:00 Test Item Value Reference Range Interpretation Comments UA Spec Grav (test code = UA Spec 1.014 1 Grav) [facility] ZJJMX4904-34-26 09:33:00 Test Item Value Reference Range Interpretation Comments UA pH (test code = UA pH) 5.0 1 5.0-8.0 [facility] JRCBH0510-59-17 09:33:00Negative (01/10/19 3:33 AM) [facility] FTRZD6614-03-56 09:33:00Negative *NA*(01/10/19 3:33 AM)[facility] LHYJX7592-64-78 09:33:00Trace *ABN*(01/10/19 3:33 AM)[facility] WFFFT3319-21-22 09:33:00Negative *NA*(01/10/19 3:33 AM)[facility] TZSQR1204-85-16 09:33:00Negative (01/10/19 3:33 AM)[facility] RTRUX8065-27-15 09:33:00Negative (01/10/19 3:33 AM) [facility] VVHJH4935-94-44 09:33:00Negative (01/10/19 3:33 AM) [facility] ANMFO5245-68-90 09:33:00None Seen (01/10/19 3:33 AM) [facility] KPBDV1510-92-61 09:33:00<1[facility] FAVKI9970-31-93 09:33:00<1[facility] HermannVIRAL - VJUKNQNZ0828-64-47 07:15:00Negative (01/10/19 1:15 AM)[facility] HermannVIRAL - ZQKUWLQK7634-91-78 07:15:00Negative (01/10/19 1:15 AM)[facility] HermannCARDIAC SHVXURF8620-66-15 05:21:000.09[facility] HermannCHEM MGUZW9214-84-13 05:21:007.1[facility] HermannCHEM LJBIQ8332-72-13 05:21:003.1[facility] HermannCHEM FDPYD7435-26-46 05:21:0027 [facility]annCHEM NNNZV6740-81-77 05:21:0027[facility] HermannCHEM PANEL 2019-01-10 05:21:53596Zcfsxrpk HermannCHEM ISJZO3455-93-27 05:21:000.5[facility] HermannCHEM CXQOP4003-55-72 05:21:00 Test Item Value Reference Range Interpretation Comments B/C Ratio (test code = B/C Ratio) 17 1 6-25 [facility]annCHEM BCRTT0618-17-17 05:21:004.0[facility] HermannCHEM PANEL 2019-01-10 05:21:00 Test Item Value Reference Range Interpretation Comments A/G Ratio (test code = A/G Ratio) 0.8 1 0.7-1.6 [facility] VTCCG3436-43-10 05:21:000.9[facility] 2019-01-10 05:21:00 Test Item Value Reference Range Interpretation Comments INR (test code = INR) 1.08 1 0.85-1.17 [facility]lineKhteswrPDNXDOOYRR4194-32-46 05:21:00 Test Item Value Reference Range Interpretation Comments PT (test code = PT) 13.8 s 12.0-14.7 [facility]lineXijnkvaGYXDNKJHZL7068-97-62 05:21:00 Test Item Value Reference Range Interpretation Comments PTT (test code = PTT) 23.3 s 22.9-35.8 [facility]GoawakyFMQGLNTNKA7037-08-12 05:21:000.2[facility] HermannOrthopantogram 2018-12-17 17:21:12This procedure requires no interpretation from the radiologist.MD BlackwellX-ray Femur 2 Views Bllht8292-72-87 13:51:37Uncomplicated internal fixation of right intertrochanteric fracture with progressive healing.Interface, Radiology Results In - 12/17/2018 8:53 AM CDTFULL RESULT:Examination: XR FEMUR 2 VW RIGHT, 12/17/2018 8:43 AM.Clinical History: Displaced intertrochanteric fracture of right femur, initial encounter for closed fractureIndication: post-opComparison: Portable right femur. 4 images. October 11, 2018.Technique: XR FEMUR 2 VW RIGHTFindings: Prior internal fixation of right intertrochanteric fracture utilizing an intramedullary nail with proximal interlocking pin and distal interlocking screw. No complication. Progressive fracture healing. IMPRESSION:Uncomplicated internal fixation of right intertrochanteric fracture with progressive healing.MD BlackwellElectrolyte Bysgj9485-49-53 09:38:13 Test Item Value Reference Range Interpretation Comments Sodium Lvl (test code = 7355) 134 136- 145 mEq/L L Potassium Lvl (test code = 6854) 4.2 3.5- 5.1 mEq/L Chloride (test code = 5279) 98 98- 107 mEq/L CO2 (test code = 5227) 24 22- 29 mEq/L Anion Gap (test code = 9325) 12 4- 14 mEq/L Lab Interpretation (test code = Abnormal 51823-9) MD BlackwellGlucose Ywkmp6979-16-33 09:38:12 Test Item Value Reference Range Interpretation Comments Glucose Level (test 87 mg/dL 70-99 Referenc e range is valid code = 5699) for fasting spe cimens only. Guideline s established by the [place] [employer] marlene delines (Standards of M edical Care in Diabete s 2016. Diabetes Care 2 016; 39: S13-22) are heaven t a fasting glucose of greater than or equal to 126 mg/dL or a random glucose greater than or equal to 200 mg /dL with symptoms, that are confirmed by re peat testing on a di fferent day, meet the c magdalenaeria for diabetes me concepciónitus. MD BlackwellGlomerular Filtration Qmqp0216-63-84 09:38:11 Test Item Value Reference Range Interpretation Comments eGFR-AA (test 99 >=60 mL/min/1.73 sq. Normal eGFR: >= 60 code = 8062) m mL/min/1.73 m2N ote: The eGFR is calcula valentina using the CKD-EPI equ ation. The eGFR declines w ith age. eGFR <60 mL/min /1.73 m2 is considered as " decreased". This equation s hould only be used for pat ients 18 and older. Acco rding to the National Ki dney Foundation's Ki dney Disease Outcome Quality Initiative (KDO QI) classification and 2012 Kidney Disease Improving Global Outcomes (KDIGO) Clinical Practi ce Guideline, the stage of CKD should be c ategorized based on estima valentina GFR. Stage Descripti on GFR mL/min/1.73 m21 Normal or high GFR >=902 Mildly de creased GFR 60-893a Mildly to moder ately decreased GFR 45-593b Moderately to s everely decreased GFR 30-444 Severely decrea sed GFR 15-295 Kidney failure <15 eGFR-YSABEL (test 86 >=60 mL/min/1.73 sq. Kenzie l eGFR: >= 60 code = 8063) m mL/min/1.73 m2N ote: The eGFR is calcula valentina using the CKD-EPI equ ation. The eGFR declines w ith age. eGFR <60 mL/min /1.73 m2 is considered as " decreased". This equation s hould only be used for pat ients 18 and older. Acco rding to the National dney Foundation's dney Disease Outcome Quality Initiative (KDO QI) classification and 2012 Kidney Disease Improving Global Outcomes (KDIGO) Clinical Practi ce Guideline, the stage of CKD should be c ategorized based on estima valentina GFR. Stage Descripti on GFR mL/min/1.73 m21 Normal or high GFR >=902 Mildly de creased GFR 60-893a Mildly to moder ately decreased GFR 45-593b Moderately to s everely decreased GFR 30-444 Severely decrea sed GFR 15-295 Kidney failure <15 MD Blackwell.Serum Uvduguotcq6787-13-06 09:38:10 Test Item Value Reference Range Interpretation Comments Creatinine (test code = 5399) 0.70 mg/dL 0.67-1.17 MD BlackwellKlqjhwloIWW2963-47-15 09:38:09 Test Item Value Reference Range Interpretation Comments BUN (test code = 5055) 11 mg/dL 6-23 MD BlackwellIonized Calcium Oiuhe7745-50-41 08:50:18 Test Item Value Reference Range Interpretation Comments Calcium Ionized (test code = 1.14 mmol/L 1.13-1.32 01780-6) MD BlackwellVitamin B1 (Thiamine)2018-11-08 14:35:42 Test Item Value Reference Interpretation Comments Range Thiamin(Wh 269 nmol/L 70-180 H -----ADDITION Bld)-[place] (test AL code = 45963-8) INFORMATION- --This test was developed and its perform ance characteristics determined by [facility] in a manner consistent with CLIArequirement s. This test has not been cl eared or approved bythe U.S. Food and Drug Administra tion. Test Performed by:[facility] [place] [facility], [place], [place] [address]Bqf Direct or: Jaycob Izaguirre M.D. Ph.D.; CLIA# [id number] Lab Interpretation Abnormal (test code = 07341-6) MD BlackwellVitamin B12 Bmris2366-26-23 14:09:05 Test Item Value Reference Range Interpretation Comments Vitamin B12 Lvl (test code = 8017) 1883 pg/mL 211-946 H Lab Interpretation (test code = Abnormal 23272-2) MD BlackwellUrinalysis with Vwbvqusdtus2923-35-62 02:58:20 Test Item Value Reference Range Interpretation Comments UA WBC (test code = 1 0- 2 /HPF 7904) UA RBC (test code = 1 0- 2 /HPF 7891) UA Mucous (test code = 1+ TRACE /HPF A 7887) UA Bacteria (test code OCC NOT SEEN /HPF = 7870) UA Squam Epi (test OCC OCC /HPF code = 7896) GRABIEL (test code = GRABIEL) Some reporting parameters within the Urinalysis test have changed due to the implementation of new instrumentation in the [facility], allowing greater sensitivity of measurement. Urinalysis results reported by the [facility] using existing instrumentation, as well as Urinalysis testing performed manually or by backup methodology at the [facility] will remain relatively unchanged. New reporting parameters and units will now be reported for all campuses. Lab Interpretation Abnormal (test code = 05114-7) MD BlackwellUrinalysis w/Microscopic if Ffohopntc0855-21-06 02:43:41 Test Item Value Reference Range Interpretation Comments UA Color (test code = 7877) Yellow Yellow UA Appear (test code = 7868) Clear Clear UA Glucose (test code = 7881) NEG NEG mg/dL UA Bili (test code = 7871) NEG NEG UA Ketones (test code = 7884) NEG NEG mg/dL UA Spec Grav (test code = 7894) 1.024 1.002-1.035 UA Blood (test code = 7872) Small NEG A UA pH (test code = 7909) 5.0 4.5-8.0 UA Protein (test code = 7890) 100 mg/dL NEG A UA Urobilinogen (test code = 7903) POS NEG A UA Nitrite (test code = 7888) NEG NEG UA Leuk Est (test code = 7886) NEG NEG Lab Interpretation (test code = Abnormal 12397-7) MD Santoro Brain with and without Dhccakej8940-05-21 12:44:11No clearly acute intracranial process.Interface, Radiology Results In - 11/02/2018 7:46 AM CDTFULL RESULT:Examination: MRI BRAIN W WO CONTRAST on 11/02/2018 5:40 AMClinical History: 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 Intracranially, however sulci and ventricles were unremarkable, and there was no worrisome abnormal sign al or enhancement.IMPRESSION:No clearly acute intracranial process.MD Blackwell [id number] 12:37:35 Test Item Value Reference Range Interpretation Comments Total Cells (test code = 100 37479-6) Neutrophil % (test code 79.0 % 42-66 H The Neutrophil count = 6491) includes Bands. Lymphocyte % (test code 15.0 % 24-44 L = 6194) Monocyte % (test code = 6.0 % 2-7 6422) Neutrophil Abs (test 4.74 K/uL 1.7-7.3 code = 6492) Lymphocyte Abs (test 0.90 K/uL 1-4.8 L code = 6195) Monocyte Abs (test code 0.36 K/uL 0.08-0.7 = 6423) RBC Morph (test code = Present Normal A 6742-1) PLT Morph (test code = Normal Normal 84482-8) Anisocytosis (test code Present Not Present A = 702-1) Lab Interpretation (test Abnormal code = 73300-8) MD Blackwell.[id number] 12:37:33 Test Item Value Reference Range Interpretation Comments WBC (test code = 8034) 6.0 K/uL 4-11 RBC (test code = 6932) 3.00 4.50- 6.00 M/uL L Hgb (test code = 5898) 9.4 14.0- 18.0 gm/dL L Hct (test code = 5860) 28.8 % 40-54 L MCV (test code = 6222) 96 fL 82-98 MCH (test code = 6220) 31.3 pg 27-31 H MCHC (test code = 6221) 32.6 31.0- 36.0 gm/dL RDW-SD (test code = 45.7 fL 35.1-46.3 6972) RDW-CV (test code = 13.1 % 12-15.5 6971) Platelet count (test 185 K/uL 140-440 code = 6832) MPV (test code = 6282) 10.5 fL 4-10.4 H INRBC (test code = 0.0 % <=0.0 The INRBC (instrument 5974) NRBC) value ref lects the enumeration of nucleated red b lood cells contained in a 200uL sampleof whole blood analyzed by the instrument. Thi s value maydiffer from the NRBC value reported in a m anual differential,wh ich is based on a 100 cell differential. Lab Interpretation Abnormal (test code = 88046-0) MD BlackwellMagnesium [id number] 10:30:46 Test Item Value Reference Range Interpretation Comments Magnesium (test code = 6359) 2.2 mg/dL 1.6-2.6 MD BlackwellAnion [id number] 10:30:44 Test Item Value Reference Range Interpretation Comments Anion Gap (test code = 9325) 17 4- 14 mEq/L H Lab Interpretation (test code = Abnormal 36551-7) MD BlackwellChloride [id number] 10:30:42 Test Item Value Reference Range Interpretation Comments Chloride (test code = 5279) 94 98- 107 mEq/L L Lab Interpretation (test code = Abnormal 36413-3) MD BlackwellPotassium [id number] 10:30:41 Test Item Value Reference Range Interpretation Comments Potassium Lvl (test code = 6854) 5.0 3.5- 5.1 mEq/L MD BlackwellSodium [id number] 10:30:40 Test Item Value Reference Range Interpretation Comments Sodium Lvl (test code = 7355) 129 136- 145 mEq/L L Lab Interpretation (test code = Abnormal 73714-2) MD BlackwellGlucose, [id number] 10:30:39 Test Item Value Reference Range Interpretation Comments Glucose Random (test 94 mg/dL 70-199 Effecti ve 09/22/15, the code = 9360) glucose referen ce intervals have been updated based o n [employer] marlene delines (Standards of M edical Care in Diabete s 2016. Diabetes Care 2 016; 39: S13-S22).Fastin g blood glucose:Normal: 70 99 mg/dLImpaire d fasting glucose (increa sed risk for diabetes or pre-diabetes): 100 125 mg/dLDiabet es mellitus: >/=1 26 mg/dL Random blood glucose:Normal: 70 199 mg/dLNote: Random glucose >100 mg /dL is associated with increased risk for diabetes MD BlackwellCarbon Dioxide [id number] 10:30:38 Test Item Value Reference Range Interpretation Comments CO2 (test code = 5227) 18 22- 29 mEq/L L Lab Interpretation (test code = Abnormal 66008-4) MD Gifford Portable Fluoroscopy (C-Arm) (CPT 20740)2018-10-30 20:33:45This procedure requires no interpretation from the radiologist.MD BlackwellTMP Interpretation Antibody Screen [id number] 16:05:47 Test Item Value Reference Range Interpretation Comments TMP Auto Neg At the present ABSC Interp time, patient (test code = plasma shows no ____JAIMIE RI N 7535) evidence of RBC ROHINI,Dictate d by: JAIMIE alloantibodies. DAGMAR NOVA,Dic tated Date/Time: 11:05 AM CDT Transcribed Rajendra e/Time: 10.30.2018 11:0 5 AM CDTElectronical ly Signed By: JAIMIE Fay TU, on 10.30.2018 11:0 5 AM MD BlackwellOSI [id number] 01:51:20For comparison only. 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 Fall and pain.Indication: traumaComparison: Outside radiography of the right hip October 29, 2018Technique: Pelvis: One view. Right femur: 2 views on 3 images. All images are portable.Findings: Right femur: Comminuted fracture of the base of the femoral neck extending into the intertrochanteric and subtrochanteric areas. There is a varus configuration between the main proximal and main distal fragments. Proximal override of the 2 main distal fragments.No underlying destructive osseous lesion is detected. The bones are markedly osteopenic in appearance.Severe degenerative narrowing of the left hip joint space with subchondral sclerosis, cyst formation and remodeling of the left femoral head and acetabulum.The sacroiliac joints and pubic symphysis are intact in appearance.IMPRESSION:Comminuted fracture of the right proximal femur with no gross underlying lytic metastasis.MD BlackwellAntibody [id number] 01:06:00 Test Item Value Reference Range Interpretation Comments ABSC. (test code = 890-4) Negative ABSC MD [id number] 01:05:59 Test Item Value Reference Range Interpretation Comments ABORh. (test code = 882-1) B POS MD BlackwellClot Expiration [id number] 01:05:53 Test Item Value Reference Range Interpretation Comments T & S Expiration (test code = 11/01/2018 5318) MD BlackwellPartial Thromboplastin [id number] 23:10:13 Test Item Value Reference Range Interpretation Comments PTT (test code = 19925-3) 33.4 24.7- 35.9 second(s) MD BlackwellProthrombin Time with [id number] 23:10:12 Test Item Value Reference Range Interpretation Comments PT (test code = 5902-2) 15.6 12.7- 15.0 second(s) H INR (test code = 6301-6) 1.21 0.90-1.20 H Lab Interpretation (test code = Abnormal 94520-4) MD BlackwellFractionated [id number] 23:03:28 Test Item Value Reference Range Interpretation Comments Bili Total (test 0.6 mg/dL <=1.2 Indocyanine Green (ICG) code = 5096) may cause false ly elevated biliru bin results. Total and direct bilirubin must not be measured from s amples containing indo cyanine green. False el evation of total bilirubin can be seen in patient s with IgG concentrations above 28 g/L. Bili Direct (test 0.2 mg/dL <=0.3 Indocyanin e Green (ICG) code = 5094) may cause false ly elevated biliru bin results. Total and direct bilirubin must not be measured from s amples containing indo cyanine green. Bili Indirect (test 0.4 mg/dL 0-0.9 code = 5095) MD BlackwellCalcium [id number] 23:03:27 Test Item Value Reference Range Interpretation Comments Calcium Lvl (test code = 5258) 9.0 mg/dL 8.4-10.2 MD BlackwellAlbumin [id number] 23:03:25 Test Item Value Reference Range Interpretation Comments Albumin Lvl (test code = 4763) 3.4 3.5- 5.2 gm/dL L Lab Interpretation (test code = Abnormal 37845-6) MD BlackwellAspartate [id number] 23:03:23 Test Item Value Reference Range Interpretation Comments AST (test code = 4731) 32 U/L <=40 MD BlackwellTotal [id number] 23:03:22 Test Item Value Reference Range Interpretation Comments Total Protein (test code = 7649) 6.5 6.4- 8.3 gm/dL MD BlackwellAlkaline [id number] 23:03:20 Test Item Value Reference Range Interpretation Comments Alk Phos (test code = 4768) 85 U/L 40-129 MD [id number] 23:03:18 Test Item Value Reference Range Interpretation Comments ALT (test code = 4705) 35 U/L <=41 MD BlackwellXR Abdomen 1 View [id number] 19:20:04Significant constipation.Interface, Radiology Results In - 10/15/2018 2:22 PM CDTFULL RESULT:Examination: XR ABDOMEN 1 VW PORTABLE on 10/15/2018 1:15 PMClinical History: Squamosal carcinoma of scalpIndication: ConstipationComparison: None.Technique: XR ABDOMEN 1 VW PORTABLEFindings: There is significant constipation with large amount of stool seen throughout the colon. No evidence of dilated loops ofbowel.IMPRESSION:Significant constipation.MD Blackwell Phosphorus [id number] 09:06:19 Test Item Value Reference Range Interpretation Comments Phosphorus (test code = 6817) 2.9 mg/dL 2.5-4.5 MD Blackwell
--- NOTE | 2019-10-11 16:28 | EDPHYS ---
Physician Documentation [facility] Name: Isiah Gaytan Age: 84 yrs Sex: Male : 1935 Arrival Date: 10/11/2019 Time: 15:58 Bed 6 Private MD: ED Physician Kevin Blackwell HPI: 10/10 16:30 This 84 yrs old Male presents to ER via Wheelchair with complaints of Sore snw Throat. 16:30 The patient presents with sore throat. The patient describes throat pain as burning, snw raw, scratchy. Onset: The symptoms/episode began/occurred suddenly, 3 day(s) ago, and became persistent. Severity of symptoms: At their worst the symptoms were moderate. Associated signs and symptoms: The patient has no apparent associated signs or symptoms, Pertinent negatives fever. The patient has not experienced similar symptoms in the past. It is unknown whether or not the patient has recently seen a physician. Historical: - Allergies: 16:24 Azithromycin; ph 16:24 Codeine; ph 16:24 Keflex; ph - Home Meds: 16:24 Eliquis Oral [Active]; sotalol Oral [Active]; ph - PMHx: 16:24 High Cholesterol; Hypertension; Myocardial infarction; ph - PSHx: 16:24 HEAD SURGERY; RIGHT LEG SURGERY; ph - Immunization history:: Adult Immunizations unknown. - Social history:: Smoking status: Patient denies any tobacco usage or history of. ROS: 16:30 Constitutional: Negative for fever, chills, and weight loss, Eyes: Negative for injury, snw pain, redness, and discharge, Neck: Negative for injury, pain, and swelling, Cardiovascular: Negative for chest pain, palpitations, and edema, Respiratory: Negative for shortness of breath, cough, wheezing, and pleuritic chest pain, Abdomen/GI: Negative for abdominal pain, nausea, vomiting, diarrhea, and constipation, Back: Negative for injury and pain, : Negative for injury, bleeding, discharge, and swelling, MS/Extremity: Negative for injury and deformity, Skin: Negative for injury, rash, and discoloration, Neuro: Negative for headache, weakness, numbness, tingling, and seizure, Psych: Negative for depression, anxiety, suicide ideation, homicidal ideation, and hallucinations. 16:30 ENT: Positive for sore throat. Exam: 16:30 Constitutional: This is a well developed, well nourished patient who is awake, alert, snw and in no acute distress. Head/Face: Normocephalic, atraumatic. Eyes: Pupils equal round and reactive to light, extra-ocular motions intact. Lids and lashes normal. Conjunctiva and sclera are non-icteric and not injected. Cornea within normal limits. Periorbital areas with no swelling, redness, or edema. Neck: Trachea midline, no thyromegaly or masses palpated, and no cervical lymphadenopathy. Supple, full range of motion without nuchal rigidity, or vertebral point tenderness. No Meningismus. Chest/axilla: Normal chest wall appearance and motion. Nontender with no deformity. No lesions are appreciated. Cardiovascular: Regular rate and rhythm with a normal S1 and S2. No gallops, murmurs, or rubs. Normal PMI, no JVD. No pulse deficits. Respiratory: Lungs have equal breath sounds bilaterally, clear to auscultation and percussion. No rales, rhonchi or wheezes noted. No increased work of breathing, no retractions or nasal flaring. Abdomen/GI: Soft, non-tender, with normal bowel sounds. No distension or tympany. No guarding or rebound. No evidence of tenderness throughout. Back: No spinal tenderness. No costovertebral tenderness. Full range of motion. Skin: Warm, dry with normal turgor. Normal color with no rashes, no lesions, and no evidence of cellulitis. MS/ Extremity: Pulses equal, no cyanosis. Neurovascular intact. Full, normal range of motion. Neuro: Awake and alert, GCS 15, oriented to person, place, time, and situation. Cranial nerves II-XII grossly intact. Motor strength 5/5 in all extremities. Sensory grossly intact. Cerebellar exam normal. Normal gait. Psych: Awake, alert, with orientation to person, place and time. Behavior, mood, and affect are within normal limits. 16:30 ENT: Ear canal(s): are normal, TM's: no acute changes, Nose: is normal, Mouth: is normal, Posterior pharynx: erythema, that is marked, Voice: is normal. Vital Signs: 16:22 BP 163 / 78; Pulse 68; Resp 18; Temp 98.5; Pulse Ox 99% on R/A; Weight 74.84 kg; ph MDM: 16:19 Patient medically screened. [facility] 16:29 Data reviewed: vital signs, nurses notes. Data interpreted: Pulse oximetry: on room air snw is 99 %. Interpretation: normal. Counseling: I had a detailed discussion with the patient and/or guardian regarding: the historical points, exam findings, and any diagnostic results supporting the discharge/admit diagnosis, lab results, the need for outpatient follow up, to return to the emergency department if symptoms worsen or persist or if there are any questions or concerns that arise at home. Special discussion: Based on the history and exam findings, there is no indication for further emergent testing or inpatient evaluation. I discussed with the patient/guardian the need to see the primary care provider for further evaluation of the symptoms. 10/10 16:25 Order name: Strep snw 10/10 16:25 Order name: COVID-19 snw Administered Medications: 16:27 CANCELLED (pt unable to say if he is allergic to z-max or not): Zithromax 500 mg PO oncesnw 16:52 Drug: Doxycycline 100 mg Route: PO; sv 17:34 Follow up: Response: No adverse reaction sv Disposition: 10/11/19 16:28 Discharged to Home. Impression: Acute pharyngitis. - Condition is Stable. - Discharge Instructions: Pharyngitis, Rehydration, Elderly. - Prescriptions for Doxycycline Hyclate 100 mg Oral Tablet - take 1 tablet by ORAL route every 12 hours; 20 tablet. - Medication Reconciliation Form, Thank You Letter, Antibiotic Education, Prescription Opioid Use form. - Follow up: Emergency Department; When: As needed; Reason: Worsening of condition. Follow up: Private Physician; When: 2 - 3 days; Reason: Recheck today's complaints, Continuance of care, Re-evaluation by your physician. Addendum: 10/13/2019 08:15 Co-signature as Attending Physician, Kevin Blackwell MD I agree with the assessment and c simpson plan of care. Signatures: Dispatcher [employer] Mindi Rogers RN RN sv Anderson, Corey, MD MD cha Waters, Shelly, ELECTRIC BRAIN WAVE EQUIPMENT MECHANIC-C ELECTRIC BRAIN WAVE EQUIPMENT MECHANIC-Csnw Joi Montilla RN RN Zhanna Hill RN RN Corrections: (The following items were deleted from the chart) 10/10 16:27 16:25 Zithromax 500 mg PO once ordered. ovidio nolan 17:47 16:28 10/11/2019 16:28 Discharged to Home. Impression: Acute pharyngitis. Condition is hb Stable. Forms are Medication Reconciliation Form, Thank You Letter, Antibiotic Education, Prescription Opioid Use. Follow up: Emergency Department; When: As needed; Reason: Worsening of condition. Follow up: Private Physician; When: 2 - 3 days; Reason: Recheck today's complaints, Continuance of care, Re-evaluation by your physician. ovidio
--- NOTE | 2019-10-11 16:28 | ER ---
Nurse's Notes [facility] Name: Isiah Gaytan Age: 84 yrs Sex: Male : 1935 Arrival Date: 10/11/2019 Time: 15:58 Bed 6 Private MD: Diagnosis: Acute pharyngitis Presentation: 10/10 16:22 Chief complaint: Patient states: Sore throat x 3 days, denies fever, cough, SOB, or ph N/V. Coronavirus screen: Client denies travel out of the [place] in the last 14 days. sore throat, The client reports previous COVID testing was negative. reports COVID test approx 2 months ago. Ebola Screen: No symptoms or risks identified at this time. Initial Sepsis Screen: Does the patient meet any 2 criteria? No. Patient's initial sepsis screen is negative. Does the patient have a suspected source of infection? No. Patient's initial sepsis screen is negative. Risk Assessment: Do you want to hurt yourself or someone else? Patient reports no desire to harm self or others. 16:22 Method Of Arrival: Wheelchair ph 16:22 Acuity: MARIOLA 4 ph 16:54 Onset of symptoms was October 08, 2019. sv Triage Assessment: 16:45 General: Appears in no apparent distress. comfortable, slender, Behavior is calm, sv cooperative, appropriate for age. Pain: Complains of pain in left aspect of posterior pharynx and right aspect of posterior pharynx. EENT: Oral mucosa is moist. Throat is reddened. Neuro: Level of Consciousness is awake, alert, obeys commands, Oriented to person, place, time, situation, Speech is normal. Respiratory: Airway is patent Respiratory effort is even, unlabored, Respiratory pattern is regular, symmetrical. Derm: Skin is pink, warm \T\ dry. Historical: - Allergies: 16:24 Azithromycin; ph 16:24 Codeine; ph 16:24 Keflex; ph - Home Meds: 16:24 Eliquis Oral [Active]; sotalol Oral [Active]; ph - PMHx: 16:24 High Cholesterol; Hypertension; Myocardial infarction; ph - PSHx: 16:24 HEAD SURGERY; RIGHT LEG SURGERY; ph - Immunization history:: Adult Immunizations unknown. - Social history:: Smoking status: Patient denies any tobacco usage or history of. Screenin:23 Abuse screen: Denies threats or abuse. Denies injuries from another. Nutritional ph screening: No deficits noted. Tuberculosis screening: No symptoms or risk factors identified. 16:53 Fall Risk None identified. sv Assessment: 16:52 Reassessment: After COVID-19 test, pt started having a nose bleed, pressure held until sv I get a nose clamp. Informed Sade COIL WINDER STRAP. Ok to hold pt to ensure bleeding has stopped. Pt is on Xarelto. 17:33 Reassessment: Patient appears in no apparent distress at this time. No changes from sv previously documented assessment. Patient and/or family updated on plan of care and expected duration. Pain level reassessed. Patient is alert, oriented x 3, equal unlabored respirations, skin warm/dry/pink. Pt attempting to call his spouse but unable to get a hold of her. 17:34 Reassessment: Pt stated that he wanted to wait in the lobby for his spouse to get him. sv Vital Signs: 16:22 BP 163 / 78; Pulse 68; Resp 18; Temp 98.5; Pulse Ox 99% on R/A; Weight 74.84 kg; ph ED Course: 15:58 Patient arrived in ED. ds1 16:12 [facility] Bar[facility]C [facility] snw 16:12 Kevin Blackwell MD is Attending Physician. snw 16:23 Triage completed. ph 16:25 Arm band placed on Patient placed in an exam room, on a stretcher, on pulse oximetry. ph 16:32 Mindi Hendrix, RN is Primary Nurse. sv 16:53 Patient has correct armband on for positive identification. Bed in low position. Call sv light in reach. Side rails up X2. Pulse ox on. NIBP on. 16:53 Strep swab sent to lab. sv 17:34 No provider procedures requiring assistance completed. Patient did not have IV access sv during this emergency room visit. Administered Medications: 16:27 CANCELLED (pt unable to say if he is allergic to z-max or not): Zithromax 500 mg PO oncesnw 16:52 Drug: Doxycycline 100 mg Route: PO; sv 17:34 Follow up: Response: No adverse reaction sv Outcome: 16:28 Discharge ordered by . snw 17:34 Discharged to home via wheelchair. sv 17:34 Condition: stable 17:34 Discharge instructions given to patient, Instructed on discharge instructions, follow up and referral plans. medication usage, Demonstrated understanding of instructions, follow-up care, medications, Prescriptions given X 1. 17:47 Patient left the ED. hb Addendum: 10/15/2019 14:28 Addendum: COVID-19 Result: Negative result given to RN to notify pt. Notified pt of d m5 negative COVID 19 swab results. Pt advised that even with a negative test result they should remain in isolation until symptom free for 3 days without medication. Pt also advised to return to the ED for worsening symptoms. Signatures: Cristiana Fox RN RN dm5 Mindi Hendrix RN RN Sade N[place], SILVER SOLDERER-C SILVER SOLDERER-Csnw Lauren Gonzales ds1 Joi Montilla RN RN Zhanna Hill RN RN
[2019-10-11] MEDS ORDERED: DOXYCYCLINE 100 MG CAP PO ONE (16:47)
[2019-10-11 17:52] VITALS: BP 163/78; TEMP 98.5; O2SAT 99
== END 2019-10-11 17:47 | disposition home or self-care (01) ==
LOC: ER 15:55
DX: J02.9 Acute pharyngitis, unspecified (principal); Z20.828 Contact with and (suspected) exposure to other viral communicable diseases; I10 Essential (primary) hypertension; E78.00 Pure hypercholesterolemia, unspecified; I25.2 Old myocardial infarction; Z79.01 Long term (current) use of anticoagulants; Z88.1 Allergy status to other antibiotic agents; Z88.3 Allergy status to other anti-infective agents; Z88.5 Allergy status to narcotic agent
CPT/HCPCS: 87070; 87081; 99284; U0002

== ENCOUNTER 2019-11-30 22:42 | Inpatient (IN) | payer OTHER ==
[2019-12-01 00:01] LABS: Absolute Lymphocytes (CBC) 1.2 K/uL (0.7-4.9); Basophils % 1.5 % (0-1.3); Hematocrit 39.1 % (39.6-49.0); Lymphocytes % 22.6 % (15.3-44.8); MPV 8.3 fL (7.6-11.3); RBC Red Blood Cell Count 3.98 M/uL (4.33-5.43)
[2019-12-01 00:02] LABS: Protime INR 1.71
[2019-12-01 00:22] LABS: Albumin 3.3 g/dL (3.4-5.0); Bilirubin Direct 0.1 mg/dL (0-0.2); Bilirubin Total 0.4 mg/dL (0.2-1.0); Magnesium 2.3 mg/dL (1.8-2.4); Thyroid Stimulating Hormone 2.28 uIU/mL (0.360-3.740); Troponin (Emerg Dept Use Only) 0.14 ng/mL (0.0-0.045)
[2019-12-01] MEDS ORDERED: FUROSEMIDE 20 MG/ 2ML VIAL ONE ×2 (01:00→01:35)
--- NOTE | 2019-12-01 01:10 | ER ---
Nurse's Notes [facility] Name: Isiah Gaytan Age: 84 yrs Sex: Male : 1935 Arrival Date: 11/30/2019 Time: 22:44 Bed 13 Private MD: Diagnosis: Palpitations;CHF Exacerbation Presentation: 11/29 22:50 Acuity: MARIOLA 3 sg 22:50 Chief complaint: Patient states: I have a history of having heart failure and Oliva been sg taking my sotalol and things for my heart rate but tonight my heart feels like its beating really fast and that's got me worried. pt also complains of swelling to the ankle and having elevated BP readings at home, no other symptoms reported at this time. Coronavirus screen: Client denies travel out of the [place] in the last 14 days. At this time, the client does not indicate any symptoms associated with coronavirus-19. Ebola Screen: Patient negative for fever greater than or equal to 101.5 degrees Fahrenheit, and additional compatible Ebola Virus Disease symptoms Patient denies exposure to infectious person. Patient denies travel to an Ebola-affected area in the 21 days before illness onset. No symptoms or risks identified at this time. Initial Sepsis Screen: Does the patient meet any 2 criteria? HR > 90 bpm. No. Patient's initial sepsis screen is negative. Does the patient have a suspected source of infection? No. Patient's initial sepsis screen is negative. Risk Assessment: Do you want to hurt yourself or someone else? Patient reports no desire to harm self or others. Onset of symptoms was November 30, 2019. Care prior to arrival: None. Transition of care: patient was not received from another setting of care. 22:50 Method Of Arrival: Wheelchair sg Historical: - Allergies: 22:51 Azithromycin; sg 22:51 Codeine; sg 22:51 Keflex; sg - PMHx: 22:51 High Cholesterol; Hypertension; Myocardial infarction; sg - PSHx: 22:51 HEAD SURGERY; RIGHT LEG SURGERY; sg - Immunization history:: Adult Immunizations up to date. - Social history:: Smoking status: Patient denies any tobacco usage or history of. Screenin:34 Abuse screen: Denies threats or abuse. Nutritional screening: No deficits noted. jd3 Tuberculosis screening: No symptoms or risk factors identified. Fall Risk Ambulatory Aid- None/Bed Rest/Nurse Assist (0 pts). Gait- Normal/Bed Rest/Wheelchair (0 pts) Mental Status- Oriented to own ability (0 pts). Total Griffin Fall Scale indicates No Risk (0-24 pts). Assessment: 23:32 General: Appears in no apparent distress. uncomfortable, Behavior is calm, cooperative, jd3 appropriate for age. Pain: Denies pain. Neuro: Level of Consciousness is awake, alert, obeys commands, Oriented to person, place, time, situation. Cardiovascular: Reports palpitations, Capillary refill < 3 seconds Patient's skin is warm and dry. Rhythm is irregular. Respiratory: Airway is patent Respiratory effort is even, unlabored, Respiratory pattern is regular, symmetrical, Denies cough, shortness of breath. GI: No signs and/or symptoms were reported involving the gastrointestinal system. : No signs and/or symptoms were reported regarding the genitourinary system. EENT: No signs and/or symptoms were reported regarding the EENT system. Derm: Skin is intact, Skin is dry, Skin is normal, Skin temperature is warm. Musculoskeletal: Circulation, motion, and sensation intact. Range of motion: intact in all extremities. 11/30 00:50 Reassessment: Patient and/or family updated on plan of care and expected duration. Pain ea level reassessed. Patient is alert, oriented x 3, equal unlabored respirations, skin warm/dry/pink. Provider at bedside updating pt on plan of care. 01:18 Reassessment: Verbal order obtained for Lasix 20 mg IVP per hospitalist. ea Vital Signs: 11/29 22:50 BP 146 / 88; Pulse 102 MON; Resp 17; Temp 98.7(TE); Pulse Ox 100% on R/A; Pain 0/10; sg 23:33 BP 141 / 97; Pulse 101; Resp 17 S; Pulse Ox 98% on R/A; jd3 11/30 01:01 BP 137 / 91; Pulse 100; Resp 18; Pulse Ox 100% on R/A; ea ED Course: 11/29 22:44 Patient arrived in ED. bp1 22:46 EKG completed in triage. Results shown to MD. sg 22:50 Triage completed. sg 22:50 Arm band placed on Patient placed in waiting room. sg 23:14 Brett Machado MD is Attending Physician. 7 23:14 EKG done, by ED staff, reviewed by Brett Machado MD. 23:23 Cristiano Slater RN is Primary Nurse. jd3 23:34 Patient has correct armband on for positive identification. Bed in low position. Call jd3 light in reach. Side rails up X 1. Adult w/ patient. surveillance monitor on. Pulse ox on. NIBP on. 23:52 Inserted saline lock: 20 gauge Missed attempt(s): 20 gauge in left antecubital area. 4 23:59 Primary Nurse role handed off by Cristiano Slater RN 23:59 Luis E Castillo, KATELYNN is Primary Nurse. 11/30 00:34 XRAY Chest (1 view) In Process Unspecified. EDMS 01:00 Inserted saline lock: 22 gauge in right antecubital area, using aseptic technique. ea 01:01 No provider procedures requiring assistance completed. Patient admitted, IV remains in ea place. 01:09 Donald Jaffe MD is Hospitalizing Provider. [facility] 08:22 Adam Monet, KATELYNN is Primary Nurse. bp Administered Medications: 01:00 Drug: Lasix 20 mg Route: IVP; Site: right antecubital; ea 01:25 Follow up: Response: No adverse reaction ea 01:25 Drug: Lasix 20 mg Route: IVP; Site: right antecubital; ea 01:50 Follow up: Urine output 600 ml; Response: No adverse reaction ea 02:00 Drug: Sotalol 40 mg Route: PO; ea Output: 01:50 Urine: 600ml; Total: 600ml. ea Outcome: 01:01 Instructed on the need for admit, Demonstrated understanding of instructions. ea 01:10 Decision to Hospitalize by Provider. 7 01:20 Admitted to ER Hold. Please see [facility] for further documentation. ea 01:20 Condition: stable 09:30 Patient left the ED. hb Signatures: Dispatcher [employer] EDMS Luis E Castillo, RN Zhanna Castro RN RN Amarilis Perez RN RN ea Davies, Jonathon, RN RN jd3 Peltier, Brian, RN RN Reza Peters [facility] Kim Osborne bp1 Machado, Brett, MD MD mh7
--- NOTE | 2019-12-01 01:11 | EDPHYS ---
Physician Documentation [facility] Name: Isiah Gaytan Age: 84 yrs Sex: Male : 1935 Arrival Date: 11/30/2019 Time: 22:44 Bed 13 Private MD: ED Physician Brett Machado HPI: 11/30 00:17 This 84 yrs old Male presents to ER via Wheelchair with complaints of High mh7 Blood Pressure. 00:17 The patient presents with a history of heart racing. Context: The symptoms occur at mh7 rest. Onset: The symptoms/episode began/occurred today. Duration: The patient or guardian reports multiple episodes, that are intermittent, that wax and wane, with no pattern. Modifying factors: The symptoms are aggravated by nothing. The symptoms are alleviated by nothing. Associated signs and symptoms: Pertinent negatives: anxiety, chest pain, cough, fever, lightheadedness, nausea, SOB, syncope, near-syncope, unusual stressors, vertigo, vomiting. Severity of symptoms: At their worst the symptoms were moderate today, in the emergency department the symptoms have improved moderately. Historical: - Allergies: 11/29 22:51 Azithromycin; sg 22:51 Codeine; sg 22:51 Keflex; sg - PMHx: 22:51 High Cholesterol; Hypertension; Myocardial infarction; sg - PSHx: 22:51 HEAD SURGERY; RIGHT LEG SURGERY; sg - Immunization history:: Adult Immunizations up to date. - Social history:: Smoking status: Patient denies any tobacco usage or history of. ROS: 11/30 00:17 Constitutional: Negative for fever, chills, and weight loss, Eyes: Negative for injury, mh7 pain, redness, and discharge, ENT: Negative for injury, pain, and discharge, Neck: Negative for injury, pain, and swelling, Respiratory: Negative for shortness of breath, cough, wheezing, and pleuritic chest pain, Abdomen/GI: Negative for abdominal pain, nausea, vomiting, diarrhea, and constipation, Back: Negative for injury and pain, : Negative for injury, bleeding, discharge, and swelling, MS/Extremity: Negative for injury and deformity, Skin: Negative for injury, rash, and discoloration, Neuro: Negative for headache, weakness, numbness, tingling, and seizure, Psych: Negative for depression, anxiety, suicide ideation, homicidal ideation, and hallucinations, Allergy/Immunology: Negative for hives, rash, and allergies, Endocrine: Negative for neck swelling, polydipsia, polyuria, polyphagia, and marked weight changes, Hematologic/Lymphatic: Negative for swollen nodes, abnormal bleeding, and unusual bruising. Exam: 00:17 Constitutional: This is a well developed, well nourished patient who is awake, alert, mh7 and in no acute distress. Head/Face: Normocephalic, atraumatic. Eyes: Pupils equal round and reactive to light, extra-ocular motions intact. Lids and lashes normal. Conjunctiva and sclera are non-icteric and not injected. Cornea within normal limits. Periorbital areas with no swelling, redness, or edema. Neck: Trachea midline, no thyromegaly or masses palpated, and no cervical lymphadenopathy. Supple, full range of motion without nuchal rigidity, or vertebral point tenderness. No Meningismus. Chest/axilla: Normal chest wall appearance and motion. Nontender with no deformity. No lesions are appreciated. 00:17 Abdomen/GI: Soft, non-tender, with normal bowel sounds. No distension or tympany. No guarding or rebound. No evidence of tenderness throughout. Back: No spinal tenderness. No costovertebral tenderness. Full range of motion. Skin: Warm, dry with normal turgor. Normal color with no rashes, no lesions, and no evidence of cellulitis. MS/ Extremity: Pulses equal, no cyanosis. Neurovascular intact. Full, normal range of motion. Neuro: Awake and alert, GCS 15, oriented to person, place, time, and situation. Cranial nerves II-XII grossly intact. Motor strength 5/5 in all extremities. Sensory grossly intact. Cerebellar exam normal. Normal gait. Psych: Awake, alert, with orientation to person, place and time. Behavior, mood, and affect are within normal limits. 00:17 Cardiovascular: Rate: tachycardic, Rhythm: regular, Pulses: no pulse deficits are appreciated, Heart sounds: normal, normal S1and S2, Edema: pedal edema, that is mild, JVD: is not appreciated. 00:17 Respiratory: the patient does not display signs of respiratory distress, Respirations: normal, Breath sounds: rhonchi, that are mild, are scattered, Respiratory rate: 17 Vital Signs: 10/04 22:50 BP 146 / 88; Pulse 102 MON; Resp 17; Temp 98.7(TE); Pulse Ox 100% on R/A; Pain 0/10; sg 23:33 BP 141 / 97; Pulse 101; Resp 17 S; Pulse Ox 98% on R/A; jd3 11/30 01:01 BP 137 / 91; Pulse 100; Resp 18; Pulse Ox 100% on R/A; ea MDM: 11/29 23:34 Patient medically screened. [facility] 11/30 01:08 Differential diagnosis: arrythmia, dehydration, stress disorder, palpitations. Data [facility] reviewed: vital signs, nurses notes, old medical records, lab test result(s), cardiac enzymes, CBC, electrolytes, urinalysis, EKG, radiologic studies, plain films. Data interpreted: Pulse oximetry: on 2L(s) per nasal canula, is 100 %. Interpretation: acceptable. Counseling: I had a detailed discussion with the patient and/or guardian regarding: the historical points, exam findings, and any diagnostic results supporting the discharge/admit diagnosis, the presence of at least one elevated blood pressure reading (>120/80) during this emergency department visit, lab results, radiology results, the need for further work-up and treatment in the hospital. Response to treatment: the patient's symptoms have mildly improved after treatment. 11/29 23:35 Order name: Basic Metabolic Panel; Complete Time: 00:43 7 11/29 23:35 Order name: CBC with Diff; Complete Time: 00:43 7 11/29 23:35 Order name: LFT's; Complete Time: 00:43 7 11/29 23:35 Order name: Magnesium; Complete Time: 00:43 mh7 11/29 23:35 Order name: NT PRO-BNP; Complete Time: 00:43 7 11/29 23:35 Order name: PT-INR; Complete Time: 00:43 7 11/29 23:35 Order name: Troponin (emerg Dept Use Only); Complete Time: 00:43 7 11/29 23:35 Order name: TSH; Complete Time: 00:43 7 11/30 05:44 Order name: CBC with Automated Diff EDMS 11/30 05:46 Order name: Troponin I EDMS 11/30 05:53 Order name: Basic Metabolic Panel EDMS 11/30 05:53 Order name: T4 Free [facility] 11/30 05:53 Order name: Magnesium [facility] 11/30 05:53 Order name: Thyroid Stimulating Hormone [facility] 11/29 23:33 Order name: EKG; Complete Time: 23:34 11/29 23:35 Order name: XRAY Chest (1 view) [facility] 11/29 23:35 Order name: Cardiac monitoring; Complete Time: 23:36 [facility] 11/29 23:35 Order name: EKG - Nurse/Tech; Complete Time: 23:36 [facility] 11/29 23:35 Order name: IV Saline Lock; Complete Time: 01:00 [facility] 11/29 23:35 Order name: Labs collected and sent; Complete Time: 23:53 [facility] 11/29 23:35 Order name: O2 Per Protocol; Complete Time: 23:37 [facility] 11/29 23:35 Order name: O2 Sat Monitoring; Complete Time: 23:37 7 Administered Medications: 01:00 Drug: Lasix 20 mg Route: IVP; Site: right antecubital; ea 01:25 Follow up: Response: No adverse reaction ea 01:25 Drug: Lasix 20 mg Route: IVP; Site: right antecubital; ea 01:50 Follow up: Urine output 600 ml; Response: No adverse reaction ea 02:00 Drug: Sotalol 40 mg Route: PO; ea Disposition: 12/01/19 01:10 Hospitalization ordered by Donald Jaffe for Inpatient Admission. Preliminary diagnosis are Palpitations, CHF Exacerbation. - Bed requested for Telemetry/MedSurg (Inpatient). - Status is Inpatient Admission. hb - Condition is Stable. - Problem is an acute exacerbation. - Symptoms have improved. Signatures: Dispatcher [employer] [facility] Dayana Lee Steven, RN RN sg Garcia, Cindy, RN RN cg Baxter, Heather, RN RN hb Antunez, Elena, RN RN ea Holmes, Maurice, MD MD 7 Corrections: (The following items were deleted from the chart) 01:28 01:10 Hospitalization Ordered by Donald Jaffe MD for Inpatient Admission. Preliminary cg diagnosis is Palpitations; CHF Exacerbation. Bed requested for Telemetry/MedSurg (Inpatient). Status is Inpatient Admission. Condition is Stable. Problem is an acute exacerbation. Symptoms have improved. mh7 07:31 01:28 12/01/2019 01:10 Hospitalization Ordered by Donald Jaffe MD for Inpatient bd Admission. Preliminary diagnosis is Palpitations; CHF Exacerbation. Bed requested for [facility] ER HOLD. Status is Inpatient Admission. Condition is Stable. Problem is an acute exacerbation. Symptoms have improved. cg 09:30 07:31 12/01/2019 01:10 Hospitalization Ordered by Donald Jaffe MD for Inpatient hb Admission. Preliminary diagnosis is Palpitations; CHF Exacerbation. Bed requested for Telemetry/MedSurg (Inpatient). Status is Inpatient Admission. Condition is Stable. Problem is an acute exacerbation. Symptoms have improved. bd
--- NOTE | 2019-12-01 01:39 | P.HP ---
Certification for Inpatient Patient admitted to: Inpatient With expected LOS: >2 Midnights Patient will require the following post-hospital care: None Practitioner: I am a practitioner with admitting privileges, knowledge of patient current condition, hospital course, and medical plan of care. Services: Services provided to patient in accordance with Admission requirements found in Title 42 Section 412.3 of the Code of Federal Regulations <Bob Meza - Last Filed: 12/01/19 01:32> Patient History Date of Service: 12/01/19 Primary Care Provider: Dr. Wilson, cardiology Dr. Navarro Reason for admission: CHF exacerbation History of Present Illness: 84 year old male with history of atrial fibrillation on chronic anticoagulation therapy chronic diastolic congestive heart failure, hypertension, GERD, osteoporosis presents emergency department for palpitations and swelling of the lower extremities. Patient reports that he only takes Lasix every once in a while, not on any fluid restriction. Patient noted increased swelling to lower extremities over the course of the last week or so. Patient had heart catheterization in March of this year without stent placement and echocardiogram in February showing 56% ejection fraction. Patient's workup in the emergency department revealed elevated BNP at 10,292, elevated troponin at 0.14, chest x-ray appears to have mild CHF exacerbation, official radiology report not available at this time. ED provider wishes to admit patient for further evaluation and management. When I saw the patient in the emergency department is awake, alert, or x3. Patient denies any chest pain but reports that he was having some palpitations and elevated blood pressure at home this evening. Patient be admitted for further evaluation and management. - Past Medical/Surgical History Diabetic: No -: Hypertention -: Squamous and basal cell Carcinoma -: CAD -: Osteoarthritis -: Chronic diastolic congestive heart failure -: Chronic atrial fibrillation on chronic anticoagulation therapy -: Knee surgery -: back surgery -: elbow surgery -: Cardiac stents x3 Psychosocial/ Personal History: Patient lives at home with his . - Family History Father -: Heart disease Mother -: Diabetes, Cancer Notes: Colon cancer - Social History Smoking Status: Former smoker Alcohol use: No CD- Drugs: No Caffeine use: Yes Place of Residence: Home <DerrickBob - Last Filed: 12/01/19 01:32> Date of Service: 12/01/19 <Donald Jaffe - Last Filed: 12/01/19 18:32> Allergies cephalexin [From Keflex] Allergy (Verified 06/22/19 21:59) Unknown codeine Allergy (Verified 06/22/19 21:59) Unknown piperacillin [From Zosyn] Allergy (Verified 06/22/19 21:59) Itching tazobactam [From Zosyn] Allergy (Verified 06/22/19 21:59) Itching Home Medications: Apixaban [Eliquis] 5 mg PO BID #60 tablet 03/28/19 Furosemide 1 tab PO DAILY PRN 06/22/19 Sotalol HCl [Betapace] 80 mg PO BID 12/01/19 Review of Systems 10-point ROS is otherwise unremarkable Respiratory: Shortness of Breath Cardiovascular: Palpitations, Edema <Bob Meza - Last Filed: 12/01/19 01:32> Physical Examination - Physical Exam General: Alert, In no apparent distress, Oriented x3 HEENT: Atraumatic, Normocephalic, PERRLA, Mucous membr. moist/pink Neck: Supple Respiratory: Clear to auscultation bilaterally, Diminished (donna), Crackles/rales (Bibasilar) Cardiovascular: Edema (DONNA 1+ Pitting edema to ankles) Capillary refill: <2 Seconds Gastrointestinal: Normal bowel sounds, Soft and benign Musculoskeletal: No contractures, No erythema, No tenderness Integumentary: No significant lesion, No tenderness/swelling, No erythema Neurological: Normal speech, Normal strength at 5/5 x4 extr, Normal tone, Sensation intact Lymphatics: No axilla or inguinal lymphadenopathy - Studies Laboratory Data (last 24 hrs) 11/30/19 23:51: PT 20.0 H, INR 1.71 11/30/19 23:51: WBC 5.2, Hgb 13.1 L, Hct 39.1 L, Plt Count 174 11/30/19 23:51: Sodium 141, Potassium 4.0, BUN 23 H, Creatinine 1.06, Glucose 103, Magnesium 2.3, Total Bilirubin 0.4, AST 29, ALT 34, Alkaline Phosphatase 80 <Bob Meza - Last Filed: 12/01/19 01:32> - Studies Laboratory Data (last 24 hrs) 11/30/19 23:51: PT 20.0 H, INR 1.71 10/04/20 23:51: WBC 5.2, Hgb 13.1 L, Hct 39.1 L, Plt Count 174 11/30/19 23:51: Sodium 141, Potassium 4.0, BUN 23 H, Creatinine 1.06, Glucose 103, Magnesium 2.3, Total Bilirubin 0.4, AST 29, ALT 34, Alkaline Phosphatase 80 <Donald Jaffe - Last Filed: 12/01/19 18:32> Assessment and Plan - Plan Assessment Acute on chronic diastolic congestive heart failure Chronic atrial fibrillation on chronic anticoagulation therapy Hypertension Coronary artery disease Plan Acute on chronic diastolic congestive heart failure: Cardiology consult in place, last echocardiogram in late February 2019 showed ejection fraction 56% with aortic sclerosis. Patient had heart catheterization and March with reportedly no stent placement. Patient noncompliant with diuretics at home stating he takes them only as needed. Patient not on fluid restriction either. Continue with IV diuresis, fluid restriction, daily weights. Appreciate further input from cardiology. Chronic atrial fibrillation on chronic anticoagulation therapy: Continue Eliquis and sotalol. Rate controlled. Hypertension: Continue sotalol. Coronary artery disease: Patient chest pain free at this time, will trend troponins. Cardiology consult in place. Discharge Plan: Home Plan to discharge in: 48 Hours - Advance Directives Does patient have a Living Will: Yes Does patient have a Durable POA for Healthcare: Yes - Code Status/Comfort Care Code Status Assessed: Yes (Full code) Time Spent Managing Pts Care (In Minutes): 55 <Bob Meza - Last Filed: 12/01/19 01:32> Physician Review Additional Text: Plan of care discussed with Bob Meza, and I agree with the management plan as noted above. Patient seen this morning, reports some mild improvement. Cardiology consulted, echocardiogram pending Trend troponins. Continue to diurese Anticipate discharge home in 24 hr <Donald Jaffe - Last Filed: 12/01/19 18:32>
[2019-12-01] MEDS ORDERED: SOTALOL HCL 80 MG TAB ONE (02:08)
[2019-12-01] MEDS ORDERED: ACETAMINOPHEN 500 MG TAB PO PRN (02:36)
[2019-12-01] MEDS ORDERED: ONDANSETRON 4 MG/2 ML VIAL IV PRN (02:36)
[2019-12-01 02:37] VITALS: BMI 24.3
[2019-12-01] MEDS: SOTALOL HCL 80 MG TAB PO SCH ×2 (02:38→17:06)
[2019-12-01 05:41] LABS: Absolute Lymphocytes (CBC) 1.3 K/uL (0.7-4.9); Basophils % 0.6 % (0-1.3); Hematocrit 38.1 % (39.6-49.0); Lymphocytes % 28.4 % (15.3-44.8); MPV 8.2 fL (7.6-11.3); RBC Red Blood Cell Count 3.86 M/uL (4.33-5.43)
[2019-12-01 05:52] LABS: Potassium 3.4 mmol/L (3.5-5.1)
[2019-12-01 05:53] LABS: Magnesium 2.4 mg/dL (1.8-2.4); Thyroid Stimulating Hormone 1.82 uIU/mL (0.360-3.740)
--- NOTE | 2019-12-01 07:54 | RAD REPORT ---
EXAM DESCRIPTION: RAD - Chest Single View - 12/01/2019 12:34 am CLINICAL HISTORY: PALPITATIONS COMPARISON: June 22 TECHNIQUE: AP portable chest image was obtained 12/01/2019 12:34 am . FINDINGS: Lung volumes are low. Chronic interstitial opacification is similar to comparison. Heart s ize normal range for portable shallow inspiration exam. Vasculature is accentuated by similar limitat ion. No measurable pleural effusion and no pneumothorax. No acute bony abnormality seen. No acute aor tic findings suspected. IMPRESSION: Chronic interstitial lung pattern without a peripheral mass or consolidation identifiabl e. Mild edema can be masked by the chronic findings.
[2019-12-01] MEDS ORDERED: INFLUENZA VACCINE (for 3y+) 0.5 ML DOSE IMVAC ONE (09:00)
[2019-12-01] MEDS ORDERED: PNEUMOCOCCAL VACCINE 0.5 ML IMVAC ONE (09:00)
[2019-12-01] MEDS: FUROSEMIDE 20 MG/ 2ML VIAL IV SCH ×2 (10:00→17:06)
[2019-12-01] MEDS: APIXABAN 5 MG TABLET PO SCH ×2 (10:00→21:35)
[2019-12-01] MEDS ORDERED: POTASSIUM CL SA 10 MEQ TAB PO ONE (10:03)
[2019-12-01 17:18] LABS: Troponin I 0.13 ng/mL (0.0-0.045)
[2019-12-01 17:31] LABS: Potassium 4.3 mmol/L (3.5-5.1)
[2019-12-01] MEDS ORDERED: POLYETHYL GLY 3350 17 GM/DOSE PO PRN (18:30)
[2019-12-01] MEDS: DOCUSATE NA 100 MG CAP PO SCH (21:35)
--- NOTE | 2019-12-01 22:14 | CON ---
Date of Consultation: 12/01/2019 Reason For Consultation: Heart failure. History Of Present Illness: An 84-year-old male presents to the emergency room with shortness of eugenia ath. He claimed that he was watching TV and became suddenly short of breath. He could not lie back and has some lower extremity edema. Denies having any chest pain. Upon evaluation in emergency room , he was found to be in acute heart failure exacerbation and was given Lasix and felt much better. Past Medical History: Includes atrial fibrillation, diastolic congestive heart failure, acid reflux disease, squamous and basal cell carcinoma of the skin, hypertension. Medications: Refer to reconciliation sheet for detailed list. Allergies: CEPHALEXIN, CODEINE, AND ZOSYN. Social History: Does not smoke or drink. Does not use any drugs. Family History: No mention of coronary artery disease or cancer. Review of Systems: All systems reviewed and they were negative except as mentioned in the HPI. Physical Examination: Vital Signs: Temperature is 97.2, pulse 94, breathing 16, blood pressure 118/66, saturating 99%. General: Pleasant elderly male, in no apparent distress. Head and Neck: Pupils are equal, reactive to light. Intact eye movements. No JVD. No cervical cari nopathy. Neck: Supple. Thyroid is not enlarged. Lungs: Crackles in both bases. No accessory muscle use or muscle retraction. Heart: Regular rate and rhythm. No extra sounds. Abdomen: Soft, nontender. Bowel sounds positive. No organomegaly. No masses or hernia. No rigidi ty or rebound. Extremities: No edema, clubbing, or cyanosis. Intact pulses. Skin: No rash noted. Neurologic: Alert, awake, oriented x3. No acute focal deficits appreciated. Investigations: Sodium 142, creatinine is 0.94. Troponin 0.15 and 0.13. Chest x-ray, mild edema is present. Assessment/plan: 1.Acute on chronic diastolic congestive heart failure exacerbation. Agree with IV diuresis with 40 mg Lasix IV q.12 hours. Obtain echocardiogram and continue troponin trend. If echocardiogram shows any wall motion abnormalities, then coronary angiogram might be indicated. We will discuss further a fter we get the results of the echo. 2.Elevated troponin could be due to the acute exacerbation of heart failure. Again, obtain echocard iogram and further recommendations accordingly. SR/MODL Voice ID: [id number] Report ID: [id number]
[2019-12-02 06:03] LABS: Magnesium 2.4 mg/dL (1.8-2.4); Potassium 3.9 mmol/L (3.5-5.1)
[2019-12-02 06:06] LABS: Absolute Lymphocytes (CBC) 1.2 K/uL (0.7-4.9); Basophils % 0.6 % (0-1.3); Hematocrit 37.3 % (39.6-49.0); Lymphocytes % 27.5 % (15.3-44.8); MPV 8.4 fL (7.6-11.3); RBC Red Blood Cell Count 3.79 M/uL (4.33-5.43)
[2019-12-02] MEDS: SOTALOL HCL 80 MG TAB PO SCH (06:08)
[2019-12-02] MEDS ORDERED: POTASSIUM CL SA 10 MEQ TAB PO SCH (09:00)
[2019-12-02] MEDS ORDERED: POTASSIUM CL SA 10 MEQ TAB PO ONE (09:00)
[2019-12-02] MEDS: DOCUSATE NA 100 MG CAP PO SCH (09:19)
--- NOTE | 2019-12-02 09:19 | ECHO ---
HEIGHT: 5 ft 9 in WEIGHT: 165 lb 0 oz DATE OF STUDY: 12/01/[address]: Bob Meza NP 2-DIMENSIONAL: YES M.MODE: YES DOPPLER: YES COLOR FLOW: YES TDS: NO PORTABLE: NO DEFINITY: NO BUBBLE STUDY: NO DIAGNOSIS: CONGESTIVE HEART FAILURE EXAERBATION, ELEVATED TROPONIN CARDIAC HISTORY: CATHERIZATION: YES SURGERY: NO PROSTHETIC VALVE: NO PACEMAKER: NO MEASUREMENTS (cm) DIASTOLIC (NORMALS) SYSTOLIC (NORMALS) IVSd 1.1 (0.6-1.2) LA Diam 3.1 (1.9-4.0) LVEF 53% LVIDd 4.0 (3.5-5.7) LVIDs 2.9 (2.0-3.5) %FS 27% LVPWd 1.2 (0.6-1.2) Ao Diam 2.7 (2.0-3.7) 2 DIMENSIONAL ASSESSMENT: RIGHT ATRIUM: NORMAL LEFT ATRIUM: NORMAL RIGHT VENTRICLE: NORMAL LEFT VENTRICLE: NORMAL TRICUSPID VALVE: NORMAL MITRAL VALVE: MITRAL ANNULAR CALCIFICATION PULMONIC VALVE: AORTIC VALVE: CALCIFIED, NO PERICARDIAL EFFUSION: NONE AORTIC ROOT: NORMAL LEFT VENTRICULAR WALL MOTION: UNABLE TO EVALUATE. DOPPLER/COLOR FLOW: SEE BELOW. COMMENTS: LEFT VENTRICULAR EJECTION FRACTION APPEARS LOW NORMAL 50-55%. SEVERE RESTICTIVE DIASTOLIC DYSFUNCTION. CALCIFIED AORTIC VALVE WITH NO AORTIC STENOSIS PER STUDY BUT VALVE IS NOT WELL SEEN. UNABLE TO EVALUATE WALL MOTION DUE TO POOR WINDOWS. TECHNOLOGIST: Radha BURGOS
[2019-12-02] MEDS: FUROSEMIDE 20 MG/ 2ML VIAL IV SCH (09:20)
[2019-12-02] MEDS: APIXABAN 5 MG TABLET PO SCH (09:20)
[2019-12-02 09:27] VITALS: O2SAT 98
[2019-12-02 12:04] VITALS: BP 118/70; TEMP 97.3
--- NOTE | 2019-12-03 17:55 | PN ---
Date of Progress Note: 12/02/2019 The patient states he feels considerably better today. His vital signs are basically stable. Hypert ension is controlled. His rhythms seem stabilized. Cardiology felt to increase his beta-evita and his antihypertensive, go long way and controlling his symptoms and could be discharged on change in doses to be followed by Cardiology and myself and this will be done. HR/MODL Voice ID: [id number] Report ID: [id number]
--- OUTSIDE RECORDS SUMMARY | 2019-12-04 02:24 | XMS REPORT | Continuity of Care Document ---
:1935 Author Organization [employer] Care Team Providers Name Role Phone [employer] Unavailable Un available Problems Problem Status Onset Date Classification Date Comments Sour ce Reported Chills 01/09/2019 01/21/2019 [facility] [place] (without [place] fever) FEVER Active 01/09/2019 [place] Medications Medication Details Route Status Patient Ordering Order Source Instructions Provider Date [place] Notes: (Same Inactive MH Oil Enema as:Fleet 019 [place] Oil [place] Enema) naproxen 500 mg 500 mg = 1 tab, Active MH oral tablet PO, BID, X 7 019 [place] day, # 14 tab, [place] 0 Refill(s), Pharmacy: [facility]/pharmacy #[id number] bisacodyl 10 mg 10 mg = 1 supp, Active MH rectal AL, Daily, PRN 019 [place] suppository Constipation, # [place] 10 supp, 0 Refill(s), Pharmacy: [facility]/pharmacy #[id number] Docusate Sodium 100 mg = 1 cap, Active MH 100 MG Oral PO, BID, # 60 019 [place] Capsule cap, 0 [place] [Colace] Refill(s), Pharmacy: [facility]/pharmacy #[id number] bisacodyl 5 mg 10 mg = 2 tab, Active MH oral enteric PO, Daily, PRN 019 [place] coated tablet Constipation, X [place] 10 day, # 20 tab, 0 Refill(s), Pharmacy: [facility]/pharmacy #[id number] POLYETHYLENE 17 gm, PO, Active MH GLYCOL 3350 142 Daily, PRN 019 [place] MG/ML Oral Constipation, # [place] Solution 255 gm, 0 [Miralax] Refill(s), Pharmacy: [facility]/pharmacy #[id number] Lactulose 667 Notes: (Same No Longer [...] (Same No Longer as: Phenergan) Active 019 [place] Phenergan 25 mg, Route: Inactive IM, Q6H, Dosing 019 [place] Weight 74.2, [place] kg, PRN Nausea & Vomiting, Start date: 01/14/19 18:40:00 [address] [facility] [employer], Duration: 30 day, Stop date: 02/13/19 18:39:[address] [employer] [employer] Dulcolax Notes: (Same Inactive Laxative As: Dulcolax, [...] as: Duoneb) Active 019 [place] Ipratropium [place] 0.167 MG/ML Inhalant Solution Docusate Sodium 100 [...] MG Oral Tablet as: Pepcid) Active 019 [place] Levofloxacin Notes: (Same No Longer as:Levaquin) Active 019 [place] Docusate Sodium Notes: (Same No Longer M H 100 MG Oral as: Colace) (Do Active 019 [place] Capsule Not Crush) [place] Acetaminophen Notes: Do not No Longer MH 325 MG / exceed 4gm/day Active 019 [place] Hydrocodone of [place] Bitartrate 10 acetaminophen. MG Oral Tablet (Same as: [place] [[place] 10/325] 325/10) clopidogrel Notes: (Same No Longer As: Plavix) Active 019 [place] Flomax Notes: (Same No Longer As: Flomax) Active 019 [place] "Do Not Crush" [place] Morphine 2 mg, 1 mL, No Longer Route: IVP, Active 019 [place] Drug form: [place] SOLN, Q4H, Dosing Weight 74.2, kg, PRN Pain Score 7-10, Start date: 01/10/19 5:04:00 [address] [facility] [employer], Duration: 30 day, Stop date: 02/09/19 5:03:00 [address] [employer], 0 Streptococcus Notes: Shake No Longer MH pneumoniae well prior to Active 019 [place] serotype 1 use (Same as: [place] capsular Prevnar 13) antigen diphtheria [id number] protein conjugate vaccine / Streptococcus pneumoniae serotype 14 capsular antigen diphtheria [id number] protein conjugate vaccine / Streptococcus pneumoniae serotype [...] as: Duoneb) Active 019 [place] Ipratropium [place] 0.167 MG/ML Inhalant Solution Ondansetron Notes: (Same [...] Total Volume: 1,000, Start date: 01/10/19 2:33:00 [address] [employer] [employer], Duration: 1 doses or times, Stop date: 01/10/19 19:14:00 [address] [employer], 1.91, m2, 0 Morphine Notes: (Same Inactive as:MORPhine 019 [place] Sulfate) [place] Zofran Notes: (Same Inactive as: Zofran) 019 [place] MEDICATION [place] WASTE Product Size: 4 mg Product Wasted: ___ mg Levaquin Notes: (Same Inactive as:Levaquin) 019 [place] Zofran Notes: (Same No Longer as: Zofran) [...] Weight 74.2 kg, Start date: 01/09/19 22:20:00 [address] [employer], Stop date: 01/09/19 22:20:00 [address] [employer], 0 Allergies, Adverse Reactions, Alerts Substance Category Reaction Severity Reaction Status Date Comments S ource type Reported codeine Assertion Drug Active MH allergy [place] Keflex Assertion Drug Active allergy [place] Immunizations No Data Provided for This Section Results Order Name Results Value Reference Date Interpretation Comments Cassidy rce Range URINE AND UA Color Yellow Yellow 01/16 STOOL *NA* [place] (01/15/19 6:22 PM) [place] URINE AND UA Turbidity Clear Clear 01/16 STOOL (01/15/19 6:22 PM) [place] URINE AND UA Spec Grav 1.023 <=1.030 01/16 STOOL /2018 [place] URINE AND UA pH 5.0 5.0 - 8.0 01/16 STOOL [place] URINE AND UA Protein Negative Negative 01/16 STOOL (01/15/19 6:22 PM) [place] URINE AND UA Glucose Negative Negative 01/16 STOOL *NA* /2018 [place] (01/15/19 6:22 PM) [place] URINE AND UA Ketones 20 mg/dL Negative 01/16 STOOL mg/dL [place] URINE AND UA Bili Negative Negative 01/16 STOOL *NA* [place] (01/15/19 6:22 PM) [place] URINE AND UA Blood Negative Negative 01/16 STOOL (01/15/19 6:22 PM) [place] URINE AND UA <=1.0 0.1 - 1.0 01/16 STOOL Urobilinogen mg/dL [place] URINE AND UA Nitrite Negative Negative 01/16 STOOL (01/15/19 6:22 PM) [place] URINE AND UA Leuk Est Negative Negative 01/16 STOOL (01/15/19 6:22 PM) [place] URINE AND UA Sq Epi None Seen Few 01/16 STOOL (01/15/19 6:22 PM) [place] URINE AND UA WBC 1 0 - 5 01/16 STOOL [place] URINE AND UA RBC 1 0 - 2 01/16 STOOL [place] URINE AND UA Mucus Few /LPF None Seen 01/16 STOOL /LPF [place] CHEM PANEL Magnesium Lvl 2.3 1.8 - 2.4 01/14 [place] CHEM PANEL Phosphorus 3.0 2.5 - 4.5 01/14 [place] ELECTROLYTES AGAP 10.3 10.0 - 01/14 MH 20.0 [place] ELECTROLYTES Glucose Lvl 104 70 - 99 01/14 [place] ELECTROLYTES BUN 15 7 - 22 01/14 [place] ELECTROLYTES Creatinine Lvl 0.69 0.50 - 01/14 MH 1.40 [place] ELECTROLYTES Sodium Lvl 138 135 - 145 01/14 [place] ELECTROLYTES Potassium Lvl 4.3 3.5 - 5.1 01/14 [place] ELECTROLYTES Chloride Lvl 106 95 - 109 01/14 [place] ELECTROLYTES CO2 26 24 - 32 01/14 [place] ELECTROLYTES Calcium Lvl 8.9 8.5 - 10.5 01/14 [place] ELECTROLYTES eGFR 87 01/14 Comment: The Sugar [...] HEMATOLOGY WBC 2.6 3.7 - 10.4 01/14 [place] HEMATOLOGY RBC 3.79 4.70 - 01/14 MH 6.10 [place] HEMATOLOGY Hgb 11.1 14.0 - 01/14 MH 18.0 [place] HEMATOLOGY Hct 34.9 42.0 - 01/14 MH 54.0 [place] HEMATOLOGY MCV 92.0 80.0 - 01/14 MH 94.0 [place] HEMATOLOGY MCH 29.3 27.0 - 01/14 MH 31.0 [place] HEMATOLOGY MCHC 31.8 32.0 - 01/14 MH 36.0 [place] HEMATOLOGY RDW 16.5 11.5 - 01/14 14.5 [place] HEMATOLOGY Platelet 148 133 - 450 01/14 [place] HEMATOLOGY MPV 8.3 7.4 - 10.4 01/14 [place] HEMATOLOGY Segs 66.8 45.0 - 01/14 75.0 [place] HEMATOLOGY Lymphocytes 12.6 20.0 - 01/14 MH 40.0 [place] HEMATOLOGY Monocytes 8.4 2.0 - 12.0 01/14 [place] HEMATOLOGY Eosinophils 11.5 0.0 - 4.0 01/14 [place] HEMATOLOGY Basophils 0.7 0.0 - 1.0 01/14 [place] HEMATOLOGY Neutrophils # 1.7 1.5 - 8.1 01/14 [place] HEMATOLOGY Lymphocytes # 0.3 1.0 - 5.5 01/14 [place] HEMATOLOGY Monocytes # 0.2 0.0 - 0.8 01/14 [place] HEMATOLOGY Eosinophils # 0.3 0.0 - 0.5 01/14 [place] CHEM PANEL Magnesium Lvl 2.0 1.8 - 2.4 01/13 [place] CHEM PANEL Phosphorus 3.6 2.5 - 4.5 01/13 [place] CHEM PANEL Glucose Lvl 127 70 - 99 01/13 [place] CHEM PANEL BUN 9 7 - 22 01/13 [place] CHEM PANEL Creatinine Lvl 0.71 0.50 - 01/13 MH 1.40 [place] CHEM PANEL Sodium Lvl 139 135 - 145 01/13 [place] CHEM PANEL Potassium Lvl 4.2 3.5 - 5.1 01/13 [place] CHEM PANEL Chloride Lvl 106 95 - 109 01/13 [place] CHEM PANEL CO2 27 24 - 32 01/13 [place] CHEM PANEL AGAP 10.2 10.0 - 01/13 MH 20.0 [place] CHEM PANEL Calcium Lvl 8.9 8.5 - 10.5 01/13 [place] CHEM PANEL eGFR 86 01/13 Result Comment: [...] 63.6 45.0 - 01/13 MH 75.0 2019 [place] HEMATOLOGY Lymphocytes 19.5 20.0 - 01/13 MH 40.0 [place] HEMATOLOGY Monocytes 11.0 2.0 - 12.0 01/13 [place] HEMATOLOGY Eosinophils 5.2 0.0 - 4.0 01/13 [place] HEMATOLOGY Basophils 0.7 0.0 - 1.0 01/13 [place] HEMATOLOGY Neutrophils # 1.4 1.5 - 8.1 01/13 [place] HEMATOLOGY Lymphocytes # 0.4 1.0 - 5.5 01/13 [place] HEMATOLOGY Monocytes # 0.2 0.0 - 0.8 01/13 [place] HEMATOLOGY Eosinophils # 0.1 0.0 - 0.5 01/13 [place] HEMATOLOGY WBC 2.2 3.7 - 10.4 01/13 [place] HEMATOLOGY RBC 3.60 4.70 - 01/13 MH 6.10 [place] HEMATOLOGY Hgb 10.8 14.0 - 01/13 MH 18.0 [place] HEMATOLOGY Hct 33.4 42.0 - 01/13 MH 54.0 [place] HEMATOLOGY MCV 92.9 80.0 - 01/13 MH 94.0 [place] HEMATOLOGY MCH 30.1 27.0 - 01/13 MH 31.0 [place] HEMATOLOGY MCHC 32.4 32.0 - 01/13 MH 36.0 [place] HEMATOLOGY RDW 17.0 11.5 - 01/13 MH 14.5 [place] HEMATOLOGY Platelet 108 133 - 450 01/13 [place] HEMATOLOGY MPV 8.0 7.4 - 10.4 01/13 [place] CHEM PANEL Glucose Lvl 141 70 - 99 01/12 [place] CHEM PANEL BUN 7 7 - 22 01/12 [place] CHEM PANEL Creatinine Lvl 0.69 0.50 - 01/12 MH 1.40 [place] CHEM PANEL Sodium Lvl 134 135 - 145 01/12 [place] CHEM PANEL Potassium Lvl 4.3 3.5 - 5.1 01/12 [place] CHEM PANEL Chloride Lvl 101 95 - 109 01/12 [place] CHEM PANEL CO2 26 24 - 32 01/12 [place] CHEM PANEL Calcium Lvl 8.5 8.5 - 10.5 01/12 [place] CHEM PANEL eGFR 87 01/12 Result Comment: [...] AGAP 11.3 10.0 - 01/12 MH 20.0 [place] CHEM PANEL Magnesium Lvl 1.9 1.8 - 2.4 01/12 [place] CHEM PANEL Phosphorus 2.8 2.5 - 4.5 01/12 [place] HEMATOLOGY WBC 3.7 3.7 - 10.4 01/12 [place] HEMATOLOGY RBC 3.68 4.70 - 01/12 MH 6.10 [place] HEMATOLOGY Hgb 11.0 14.0 - 01/12 MH 18.0 [place] HEMATOLOGY Hct 33.9 42.0 - 01/12 MH 54.0 [place] HEMATOLOGY MCV 92.1 80.0 - 01/12 MH 94.0 [place] HEMATOLOGY MCH 30.0 27.0 - 01/12 MH 31.0 [place] HEMATOLOGY MCHC 32.6 32.0 - 01/12 MH 36.0 [place] HEMATOLOGY RDW 16.7 11.5 - 01/12 MH 14.5 [place] HEMATOLOGY Platelet 131 133 - 450 01/12 [place] HEMATOLOGY MPV 8.2 7.4 - 10.4 01/12 [place] HEMATOLOGY Segs 76.8 45.0 - 01/12 MH 75.0 /2018 [place] HEMATOLOGY Lymphocytes 9.9 20.0 - 01/12 MH 40.0 [place] HEMATOLOGY Monocytes 11.8 2.0 - 12.0 01/12 [place] HEMATOLOGY Eosinophils 1.2 0.0 - 4.0 01/12 [place] HEMATOLOGY Basophils 0.3 0.0 - 1.0 01/12 [place] HEMATOLOGY Neutrophils # 2.8 1.5 - 8.1 01/12 [place] HEMATOLOGY Lymphocytes # 0.4 1.0 - 5.5 01/12 [place] HEMATOLOGY Monocytes # 0.4 0.0 - 0.8 01/12 [place] BACTERIAL - Source Strep Urine 01/10 SEROLOGY *NA* /2019 [place] (01/10/19 3:33 AM) [place] BACTERIAL - Strep Negative Negative 01/10 SEROLOGY pneumoniae Ag (01/10/19 3:33 AM) [place] URINE AND UA Color Yellow Yellow 01/10 STOOL *NA* /2018 [place] (01/10/19 3:33 AM) [place] URINE AND UA Turbidity Clear Clear 01/10 STOOL (01/10/19 3:33 AM) [place] URINE AND UA Spec Grav 1.014 <=1.030 01/10 STOOL /2018 [place] URINE AND UA pH 5.0 5.0 - 8.0 01/10 STOOL /2018 [place] URINE AND UA Protein Negative Negative 01/10 STOOL (01/10/19 3:33 AM) [place] URINE AND UA Glucose Negative Negative 01/10 STOOL *NA* /2018 [place] (01/10/19 3:33 AM) [place] URINE AND UA Ketones Trace Negative 01/10 STOOL *ABN* /2018 [place] (01/10/19 3:33 AM) [place] URINE AND UA Bili Negative Negative 01/10 STOOL *NA* /2018 [place] (01/10/19 3:33 AM) [place] URINE AND UA Blood Negative Negative 01/10 STOOL (01/10/19 3:33 AM) [place] URINE AND UA <=1.0 0.1 - 1.0 01/10 STOOL Urobilinogen mg/dL [place] URINE AND UA Nitrite Negative Negative 01/10 STOOL (01/10/19 3:33 AM) [place] URINE AND UA Leuk Est Negative Negative 01/10 STOOL (01/10/19 3:33 AM) [place] URINE AND UA Sq Epi None Seen Few 01/10 STOOL (01/10/19 3:33 AM) [place] URINE AND UA WBC <1 0 - 5 01/10 STOOL /2018 [place] URINE AND UA RBC <1 0 - 2 01/10 STOOL [place] URINE AND UA Mucus Few /LPF None Seen 01/10 STOOL /LPF /2018 [place] VIRAL - Influ A Negative Negative 01/10 SEROLOGY (01/10/19 1:15 AM) [place] VIRAL - Influ B Negative Negative 01/10 SEROLOGY (01/10/19 1:15 AM) [place] CARDIAC Troponin-I 0.09 0.00 - 01/10 ENZYMES 0.40 [place] CHEM PANEL Procalcitonin <0.05 0.00 - 01/10 Lvl ng/mL 0.10 [place] CHEM PANEL Total Protein 7.1 6.4 - 8.4 01/10 [place] CHEM PANEL Albumin Lvl 3.1 3.5 - 5.0 01/10 [place] CHEM PANEL ALT 27 0 - 65 01/10 [place] CHEM PANEL AST 27 0 - 37 01/10 [place] CHEM PANEL Alk Phos 136 39 - 136 01/10 [place] CHEM PANEL Bili Total 0.5 0.2 - 1.3 01/10 [place] CHEM PANEL B/C Ratio 17 6 - 25 01/10 [place] CHEM PANEL Globulin 4.0 2.7 - 4.2 01/10 [place] CHEM PANEL A/G Ratio 0.8 0.7 - 1.6 01/10 [place] CHEM PANEL Lactic Acid 0.9 0.5 - 2.2 01/10 Lvl /2018 [place] HEMATOLOGY INR 1.08 0.85 - 01/10 1.17 [place] HEMATOLOGY PT 13.8 12.0 - 01/10 14.7 [place] HEMATOLOGY PTT 23.3 22.9 - 01/10 35.8 2019 [place] HEMATOLOGY Eosinophils # 0.2 0.0 - 0.5 01/10 [place] Pathology Reports No Data Provided for This Section Diagnostic Reports Report Value Date Source Knee wo contrast CT CLINICAL HISTORY: , - pain and swelling [facility] EXAM: CT right knee without contrast 01/12/2019 15:[address] [facility] COMPARISON: None. TECHNIQUE: Volumetric CT acq uisition [...] Knee 3 Views Bilateral DX 01/12/2019 10:37 [address] [facility] [employer] 01/12/2019 [place] DX Clinical: - acute swelling Comparison: No [...] DX Chest 1view DX 01/09/2019 10:[address] [employer] [employer] [employer] INDICATION: - Undifferentiated Sepsis COMPARISON: No prior [...] HISTORY: , - pain, fever 9 MH [place] pelvis DX EXAM: Portable AP view of th e pelvis and AP and lateral views of the right hip 01/09/2019 22:[address] [employer] [employer] Comparisons: Portable AP view of the chest [...] r [place] Heart Rate 77 01/19/2019 MH [place] Respitory Rate 18 01/19/2019 MH [place] Systolic (mm Hg) 119 01/19/2019 [place] Diastolic (mm Hg) 80 01/19/2019 [place] and Temperature Oral (F) 97.9 F 01/19/2019 [place] Heart Rate 78 01/19/2019 MH [place] Respitory Rate 18 01/19/2019 MH [place] Systolic (mm Hg) 154 01/19/2019 [place] Diastolic (mm Hg) 84 01/19/2019 MH [place] and Temperature Oral (F) 97.6 F 01/19/2019 [place] Heart Rate 76 01/19/2019 MH [place] Respitory Rate 18 01/19/2019 MH [place] Systolic (mm Hg) 136 01/19/2019 [place] Diastolic (mm Hg) 78 01/19/2019 [place] and Height 170.18 cm 01/10/2019 [place] Weight 74.2 01/10/2019 [place] Encounters Location Location Encounter Encounter Reason Attending ADM ME Stat us Source Details Type Number For Provider Date Date Visit [facility] Inpatient [id number] [place] 01/10 01/20 [facility] [place] Procedures No Data Provided for This Section Assessment and Plan Assessment and Plan Date Source Extracted from:Title: Progress Note 01/20/2019 Debra tejeda Radha Author: Barbara Ag MD Date: 01/18/19 Gram-negative pneumonia Nausea History of brain cancer Bilateral knee pain due to osteoarthritis Physical deconditioning BPH CAD s/p PCI Plan: --prn phenergan for nausea continue pantoprazole --consult senior instructional designer for poor appetite Continue Levaquin forpneumonia for [...]
--- OUTSIDE RECORDS SUMMARY | 2019-12-04 02:27 | XMS REPORT | Continuity of Care Document ---
:[address] [facility] t Address [address] [place] [address] Dr. Crawford. [address] [place] [address] Care Team Providers Name Role Phone Komal [...] Attending Clinician Lynette MAGALLANES Attending Clinician Unavailable Nithya Admitting Clinician Payers Payer Name Policy Type Policy Effective Date Expiration Date Sour ce Number AETNA MEDICAREAETNA [id number] 2013 MD Shahla ga MEDICARE 00:00:00 [id number] -PresentMedicare Problems Condition Condition Condition Status Onset Resolution Last Treating Co mments Source Name Details Category Date Date Treatment Clinician Date FEVER Diagnosis Active 2018-022019-01-27 Mem oria -14 22:24:00 l FEVER 00:00: Philip 00 Active 01/09/2019 [facility] [place] Unexplaine Unexplaine Disease Active 2018-02 Last M [...] Plan: n , so , so 00 Mr. elisa Rhodes showed significa nt cognitive impairmen t across several domains on MOCA screening test. Suspect dementia but will refer for formal neurocogn itive testing to better define impairmen ts. We will plan to follow up with him and his family after testing is complete. Encounter Encounter Disease Active 2018-02 for for 0- Anderso observatio observatio 00:00: n n for n for 00 other other suspected suspected condition condition ruled out ruled out Displaced Displaced Disease Active Overview: intertroch intertroch 10-29 Added An derso anteric anteric 00:00: automatic n fracture fracture 00 ally from of right of right request femur femur for surgery [id number] Encounter Encounter Disease Active Overview: MD monge other for other 09-1810/01/18 Arya rso preprocedu [...] 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 kcmpar0402/12 Carotid Duplex: <50% plaque within right ICA, normal left ICA, antegrade flow within bilateral vertebral arteriesO [place] [facility] 05/09/17: LAD prox patent stent X 2, mid 95% successfu l PCI to LADEchoca rdiogram: 05/08/17: normal LVH, 60-65%, LVH, aortic valve sclerosis , mild pHTNStres s test 07/09/18: adenosine nuclear stress: mildly abnormal myocardia l perfusion (low risk scan based on my discussio n with his home cardiolog ist) per Cardiolog y note 10/02/18 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 00 Hallucinos Hallucinos Disease Active M D is is Anderso n Chills Problem 2018-022019-01-21 2019-01-21 M emoria (without -14 22:44:12 22:44:12 l fever) Chills 18:00: [place] (without 00 fever) 01/09/2019 01/21/2019 [place] Allergies, Adverse Reactions, Alerts Allergy Allergy Status Severity Reaction(s) Onset Inactive Treating Comm ents Source Name Type Date Date Clinician codeine codeine Active Memoria l [place] Keflex Keflex Active Memoria l [place] Family History Family Member Diagnosis Comments Start Date Stop Date Source Maternal grandmother Diabetes MD Sumeet grant Natural mother -Colon cancer MD Arya mitchell Natural mother Hypertension Willis son Family member Bleeding Disorder MD Sumeet [...] Ryanne 2018-02 No Notes: Memoria Mineral Oil 1-24 (Same l Enema 19:58: as:Ryanne Philip 00 Mineral Oil Enema) naproxen 2018-02 Yes 500 mg = 1 Mem oria 500 mg oral 1-24 tab, PO, l tablet 15:04: BID, X 7 Philip 00 day, # 14 tab, 0 Refill(s), Pharmacy: [facility] #[id number] bisacodyl 2018-02 Yes 10 mg = 1 Mem oria 10 mg 1-24 supp, IA, l rectal 15:04: Daily, PRN Lilly nn suppository 00 Constipati on, # 10 supp, 0 Refill(s), Pharmacy: [facility] #[id number] Docusate 2018-02 Yes 100 mg = 1 Mem oria Sodium 100 1-24 cap, PO, l MG Oral 15:04: BID, # 60 Lilly nn Capsule 00 cap, 0 [Colace] Refill(s), Pharmacy: [facility] #[id number] bisacodyl 5 2018-02 Yes 10 mg = 2 M emoria mg oral 1-24 tab, PO, l enteric 15:04: Daily, PRN Herm ayush coated 00 Constipati tablet on, X 10 day, # 20 tab, 0 Refill(s), Pharmacy: [facility] #[id number] POLYETHYLEN 2018-02 Yes 17 gm, PO, Memoria E GLYCOL 1-24 Daily, PRN l 3350 142 15:04: Constipati Her pinon MG/ML Oral 00 on, # 255 Solution gm, 0 [Miralax] Refill(s), Pharmacy: [facility] #[id number] Lactulose 2018-02 No Notes: Memori a 667 MG/ML 1-24 (Same l Oral 01:11: as:Chronul [place] Solution 00 ac) Lactulose 2018-02 No Notes: Memori a 667 MG/ML -23 (Same l Oral 14:13: as:Chronul Philip Solution 00 ac) Dulcolax 2018-02 No Notes: Memoria Laxative -23 (Same As: l 12:41: Dulcolax, [place] 00 Bisco-Lax) Melatonin 3 2018-02 No Notes: Pepe micki MG Extended - (Same as: l Release 07:13: Melatonin) Herm [...] e 1-21 Tablet l 19:15: should not Philip 00 be chewed or crushed. 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 Albuterol 2018-02 No Notes: Memori a 0.833 MG/ML -18 (Same as: l / 20:49: Duoneb) Philip Ipratropium 00 [place] 0.167 MG/ML Inhalant Solution Docusate 2018-02 No 100 mg = 1 Mem oria Sodium 100 1-18 cap, PO, l MG Oral 16:51: BID, [...] Refill(s) Dulcolax 2018-02 No Notes: Memoria Laxative -18 (Same As: l 15:00: Dulcolax, [place] 00 Correctol) (Do Not Crush) "Do Not Crush" Miralax 2018-02 No Notes: Memoria 1-18 Dissolve l 15:00: in 8 oz of Philip 00 water or juice. (Same as: Miralax) Naproxen 2018-02 No Notes: Memoria 1-17 (Same as: l 16:38: Naprosyn) Philip 00 Take with food. Famotidine 2018-02 No Notes: Memor ia 20 MG Oral -16 (Same as: l Tablet 23:00: Pepcid) [place] 00 Levofloxaci 2018-02 No Notes: Pepe micki n 1-16 (Same l 07:00: as:Levaqui Philip 00 n) Docusate 2018-02 No Notes: Memoria Sodium 100 1-15 (Same as: l MG Oral 23:00: Colace) Philip Capsule 00 (Do Not Crush) Acetaminoph 2018-02 No Notes: Do M emoria en 325 MG / 1-15 not exceed l Hydrocodone 19:50: 4gm/day of [place] Bitartrate acetaminop 10 MG Oral hen. Tablet (Same as: [Benson Benson 10/325] 325/10) clopidogrel 2018-02 No Notes: Pepe micki 1-15 (Same As: l 15:02: Plavix) Flomax 2018-02 No Notes: Memoria 1-15 (Same As: l 15:02: Flomax) [place] "Do Not Crush" Morphine 2018-02 No 2 mg, 1 Memori a 1-15 mL, Route: l 11:04: IVP, Drug form: SOLN, Q4H, Dosing Weight 74.2, kg, PRN Pain Score 7-10, Start date: 01/10/19 5:04:00 SMOCKING MACHINE OPERATOR, Duration: 30 day, Stop date: 02/09/19 5:03:00 SMOCKING MACHINE OPERATOR, 0 Streptococc 2018-02 No Notes: Pepe micki us 1-15 Shake well l pneumoniae 09:35: prior to Her pinon serotype 1 51 use (Same capsular as: antigen Prevnar diphtheria 13) [id number] protein conjugate vaccine / Streptococc us pneumoniae serotype 14 capsular antigen diphtheria [id number] protein conjugate vaccine / Streptococc us pneumoniae serotype 18C capsular antigen d metoprolol 2018-02 Yes 50 mg = 1 Me moria 50 mg oral 1-15 tab, PO, l tablet, 09:19: Daily, # Clifford n extended 00 30 tab, 0 release Refill(s) clopidogrel 2018-02 Yes 75 mg = 1 M emoria 75 mg oral 1-15 tab, PO, l tablet 09:19: Daily, # [place] 00 30 tab, 0 Refill(s) atorvastati 2018-02 Yes 80 mg, PO, Memoria n 1-15 Daily, 0 l 09:19: Refill(s) Philip 00 Tamsulosin 2018-02 Yes 0.4 mg = 1 M emoria hydrochlori 1-15 cap, PO, l de 0.4 MG 09:19: Daily, # Herm ayush Oral 00 30 cap, 0 Capsule Refill(s) [Flomax] Albuterol 2018-02 No Notes: Memori a 0.833 MG/ML 1-15 (Same as: l / 09:00: Duoneb) Philip Ipratropium 00 [place] 0.167 MG/ML Inhalant Solution Ondansetron 2018-02 No Notes: Pepe micki 1-15 (Same as: l 08:36: Zofran) Philip 00 MEDICATION WASTE Product Size: 4 mg Product Wasted: ___ mg Albuterol 2018-02 No Notes: SEE Me moria 0.83 MG/ML 1-15 RT l Inhalant 08:36: DOCUMENTAT Her pinon Solution 00 ION (Same as: Proventil) NS 1,000 mL 2018-02 No 1,000 mL, M emoria 1-15 Rate: 60 l 08:33: ml/hr, [place] 00 Infuse over: 16.7 hr, Route: IV, Dosing Weight 74.2 kg, Total Volume: 1,000, Start date: 01/10/19 2:33:00 SMOCKING MACHINE OPERATOR, Duration: 1 doses or times, Stop date: 01/10/19 19:14:00 SMOCKING MACHINE OPERATOR, 1.91, m2, 0 Morphine 2018-02 No Notes: Memoria 1-15 (Same l 07:20: as:MORPhin Philip 00 e Sulfate) Zofran 2018-02 No Notes: Memoria 1-15 (Same as: l 07:20: Zofran) Philip 00 MEDICATION WASTE Product Size: 4 mg Product Wasted: ___ mg Levaquin 2018-02 No Notes: Memoria 1-15 (Same l 07:17: as:Levaqui Philip 00 n) Zofran 2018-02 No Notes: Memoria 1-15 (Same as: l 04:21: Zofran) Philip 00 MEDICATION WASTE Product Size: 4 mg Product Wasted: ___ mg Saline 2018-02 No Notes: Memoria Flush 0.9% -15 (Same as: l 04:20: BD [place] 00 Posiflush) Sodium 2018-02 No 1,000 mL, Memori a Chloride 1-15 2,000 l 0.9% 04:20: ml/hr, [place] (Bolus) IV 00 Infuse Over: 0.5 hr, Route: IV, 1,000, Drug form: INJ, ONCE, Priority: STAT, Dosing Weight 74.2 kg, Start date: 01/09/19 22:20:00 SMOCKING MACHINE OPERATOR, Stop date: 01/09/19 22:20:00 SMOCKING MACHINE OPERATOR, 0 metoprolol 2018-02 Yes 50mg Take 50 [...] daily. n 1.1 % 00 of scalp [place] dental teeth with cream cream and spit out as directed. (Do not eat, drink or rinse for 30 minutes). senna 2018-02 2019- No 1{tbl} Take 1 MD (SENOKOT) 0-21 10-21 tablet by Arya rso 8.6 mg 17:56: 00:00 mouth 2 n tablet 48 :00 (two) times a day as needed. tamsulosin 2018- Yes .4mg Take 0.4 MD (FLOMAX) 0-09 mg by Anderso 0.4 mg 24 00:00: mouth n hr capsule 00 twice daily. methocarbam 2019- No Encounter 500mg Take 1 MD ol 10-17 for other tablet Anderso (ROBAXIN) 00:00: 00:00 preprocedur (500 mg) n 500 mg 00 :00 al by mouth tablet examination every 8 (eight) hours as needed for muscle spasms. acetaminoph 2019- No Encounter 1000mg Take 2 MD en 10-15 for other tablets Darron o (TYLENOL) 00:00: 00:00 preprocedur (1,000 mg) n 500 mg 00 :00 al by mouth tablet examination every 6 (six) hours. celecoxib Yes Squamous 200mg Take 1 M D (CeleBREX) 7 cell capsule Darron o 200 mg 00:00: carcinoma (200 mg) n capsule 00 of scalp by mouth 2 (two) times a day as needed for moderate pain. atorvastati Yes 1{tbl} Take 1 MD n (LIPITOR) 3-14 tablet by And erso 80 mg 00:00: mouth n tablet 00 daily. clopidogrel Yes 1{tbl} Take 1 MD (PLAVIX) 75 3-14 tablet by And erso mg tablet 00:00: mouth n 00 daily. Vital Signs Vital Name Observation Time Observation Value Comments Source Temperature Oral (F) 2019-01-19 21:26:00 97.6 F [facility] Heart Rate 2019-01-19 21:26:00 [facility] [place] Respitory Rate 2019-01-19 21:26:00 Memori al [place] Systolic (mm Hg) 2019-01-19 21:26:00 Pepe rial [place] Diastolic (mm Hg) 2019-01-19 21:26:00 Mem orial [place] Temperature Oral (F) 2019-01-19 17:23:00 97.9 F [facility] [place] Heart Rate 2019-01-19 17:23:00 [facility] [place] Respitory Rate 2019-01-19 17:23:00 Memori al [place] Systolic (mm Hg) 2019-01-19 17:23:00 Pepe rial [place] Diastolic (mm Hg) 2019-01-19 17:23:00 Mem orial Philip Temperature Oral (F) 2019-01-19 13:47:00 97.6 F [facility] [place] Heart Rate 2019-01-19 13:47:00 [facility] [place] Respitory Rate 2019-01-19 13:47:00 Ada velázquez Philip Systolic (mm Hg) 2019-01-19 13:47:00 Pepe bejarano [place] Diastolic (mm Hg) 2019-01-19 13:47:00 Mem orial [place] Height 2019-01-10 12:17:00 170.18 cm [facility] [place] Weight 2019-01-10 03:42:00 [facility] [place] Systolic blood 2019-01-08 17:50:00 136 mm[Hg] pressure Diastolic blood 2019-01-08 17:50:00 67 mm[Hg] MD Gale derson pressure Heart rate 2019-01-08 17:50:00 82 /min MD iWllis campos Body temperature 2019-01-08 17:50:00 36.61 Jessica MD Sumeet brothersrson Respiratory rate 2019-01-08 17:50:00 17 /min MD Fay ndestephen Oxygen saturation in 2019-01-08 17:50:00 99 /min MD Blackwell Arterial blood by Pulse oximetry Body weight 2019-01-08 17:49:00 76.1 kg Willis son BMI 2019-01-08 17:49:00 26.33 kg/m2 MD Willis campos Procedures Procedure Date / Time Performed Performing Clinician [facility] e ORTHOPANTOGRAM 2018-12-17 17:21:12 Carlyle Pablo MD XR FEMUR 2 VW RIGHT 2018-12-17 13:43:08 Cesar Haq MD And lara Encounters Start End Encounter Admission Attending Care Care Encounter Source Date/Time Date/Time Type Type Clinicians Facility Department ID 2019-01-09 2019-01-19 Outpatient [place] [id number] 21:18:46 18:08:00 Barbara 00 Flor 2019-01-10 2019-01-10 Inpatient E [facility] [id number] [facility] 15:16:00 01:33:00 Results Test Description Test Time Test Comments Results Result Comments Source URINE AND STOOL 2019-01-16 [facility] 00:22:00 *NA*(01/15/19 Philip 6:22 PM) URINE AND STOOL 2019-01-16 [facility] 00:22:00 (01/15/19 6:22 [place] PM) URINE AND STOOL 2019-01-16 00:22:00 Test Item Value Reference Range Interpretation Comme nts UA Spec Grav (test code = UA Spec Grav) 1.023 1 [facility] [id number] 00:22:00 Test Item Value Reference Range Interpretation Comments UA pH (test code = UA pH) 5.0 1 5.0-8.0 [facility] [id number] 00:22:00Negative (01/15/19 6:22 PM) [facility] [id number] 00:22:00Negative *NA*(01/15/19 6:22 PM)[facility] [id number] 00:22:00Negative *NA*(01/15/19 6:22 PM)[facility] [id number] 00:22:00Negative (01/15/19 6:22 PM)[facility] [id number] 00:22:00Negative (01/15/19 6:22 PM) [facility] JIDJY0785-79-13 00:22:00Negative (01/15/19 6:22 PM) [facility] GTVTC8714-92-23 00:22:00None Seen (01/15/19 6:22 PM) [facility] [id number] 00:22:001[facility] IIROS3735-85-47 00:22:001[facility]annCHEM RXBMA3218-80-03 10:48:002.3 [facility] ZPAXJ2667-87-56 10:48:003.0[facility] HermannELECTROLYTES 2019-01-14 10:48:0010.3[facility] HkvbolxZTKXXJYUFDLA6725-10-65 10:48:37576 [facility] NzxknslYYFVBTIYVREZ1767-41-57 10:48:0015[facility] HermannELECTROLYTES 2019-01-14 10:48:000.69[facility] DzrhybiYPGLJHFQFWMK7211-65-40 10:48:94624 [facility] NhtprciWCAXRDRJXSZV3346-90-94 10:48:004.3[facility] HermannELECTROLYTES 2019-01-14 10:48:15795Gfvnugel UwkpzlvCXLTXNREOKCW3641-40-00 10:48:0026[facility] FyurgvjWQBNMNEHRZMY7520-92-83 10:48:008.9[facility] GiwgzwqAJBSKNHFEPUO5183-77-76 10:48:0087[facility] DcsuspiLWERPRMVCE9539-97-80 10:48:002.6[facility] Philip ESXFYWHGFR9467-47-60 10:48:003.79[facility] EsyvjmvZLAIMUCFQY5894-75-25 10:48:00 11.1[facility] PenridaERIMOMUTSQ8236-99-72 10:48:0034.9[facility]annHEMATOLOGY 2019-01-14 10:48:0092.0[facility] NztgetmDZIUZINACL3610-37-09 10:48:00 Test Item Value Reference Range Interpretation Comments MCH (test code = MCH) 29.3 pg 27.0-31.0 [facility] FmspqgpLZMHWWEMAU0668-37-95 10:48:0031.8[facility] HermannHEMATOLOGY 2019-01-14 10:48:0016.5[facility] WshwpwzLZWPAWLAXM7977-48-28 10:48:41131Pxitbptc SnpzpwkXRDSWKNYYR0799-60-90 10:48:008.3[facility] QcidhzfMYUBLTUXQS3584-54-45 10:48:0066.8[facility] CoqnlaiHFLTYIDCTG6674-56-78 10:48:0012.6[facility] [place] ZLUNBIFGFZ1954-66-02 10:48:008.4[facility] OktkeykATHPAAWRHM3614-07-04 10:48:00 11.5[facility] TibvlunRADMXZZYTA2780-06-52 10:48:000.7[facility] HermannHEMATOLOGY 2019-01-14 10:48:001.7[facility] VbxptikMLORZCWQDJ6750-45-80 10:48:000.3[facility] GhjbsswPRFBPYVHEP0173-72-54 10:48:000.2[facility] FunstpvUGURJLSCTS9050-05-51 10:48:000.3[facility] HermannCHEM UQEBT0136-65-07 10:15:002.0[facility] HermannCHEM AJWWO8868-94-82 10:15:003.6[facility]annCHEM EYXTN4602-18-93 10:15:16873 [facility]annCHE[facility] TBHIN8831-74-46 10:15:009[facility]annCHEM PANEL 2019-01-13 10:15:000.71[facility]annCHEM ISPBX7134-85-14 10:15:57043Vgooueby HermannCHEM VTVBZ6133-17-49 10:15:004.2[facility] HermannCHEM OSONI2758-12-31 10:15:33735Kodrxuil HermannCHEM QCUOP2902-76-60 10:15:0027[facility]annCHEM LURHK5339-48-49 10:15:0010.2[facility]annCHEM OPYOU3134-58-08 10:15:008.9 [facility]annCHE[facility] MJZWO7450-39-58 10:15:0086[facility]annHEMATOLOGY 2019-01-13 10:15:0063.6[facility] FzntafeTVLXUJXOVW5632-82-40 10:15:0019.5[facility] DzkwpinVOGLNEQJNK4462-04-71 10:15:0011.0[facility] KwzrnraHEYJVWSLJX1728-10-28 10:15:005.2[facility] AjrdmisXNQEQHTZNK3645-43-82 10:15:000.7[facility] [place] QJKRYEUGNZ1262-30-17 10:15:001.4[facility] BiktyrlTOXICTVEGM4574-18-31 10:15:000.4 [facility] InzrtpuPENRCUOYHZ9234-98-34 10:15:000.2[facility] HermannHEMATOLOGY 2019-01-13 10:15:000.1[facility] QuwtwenDAWWPJOIKD6019-27-22 10:15:002.2[facility] XdpmixsASFUSWSVUR0756-64-68 10:15:003.60[facility] NetauwrSNITXDDKFK7088-38-71 10:15:0010.8[facility] GlciatzUCOYGTKNWN9826-68-13 10:15:0033.4[facility] [place] UFDTDGNLBM9037-31-66 10:15:0092.9[facility] LatzobfPCAICUIGEP1581-60-59 10:15:00 Test Item Value Reference Range Interpretation Comments MCH (test code = MCH) 30.1 pg 27.0-31.0 [facility] HwekbkkRYOAFDXIOE9504-49-92 10:15:0032.4[facility]annHEMATOLOGY 2019-01-13 10:15:0017.0[facility] PggjggiNSTHKMMCWI4563-11-31 10:15:67255Ufignoyp ZqbotswVXQOVCLFZI0688-73-01 10:15:008.0[facility] HermannCHEM ABEXS4357-73-98 10:43:53782Suvcxvka HermannCHEM EAHCB0150-87-81 10:43:007[facility] HermannCHEM WLQCG5448-91-97 10:43:000.69[facility]annCHEM QKRIX5989-57-13 10:43:30884 [facility]annCHEM CODWH0818-27-63 10:43:004.3[facility] HermannCHEM PANEL 2019-01-12 10:43:44127Tupwvotf HermannCHEM GVFYU1270-30-52 10:43:0026[facility] HermannCHEM DZYUJ2316-16-00 10:43:008.5[facility] HermannCHEM KDPSF6048-34-11 10:43:0087[facility] HermannCHEM JKASL2042-48-28 10:43:0011.3[facility] HermannCHEM TTVSQ1165-65-03 10:43:001.9[facility] HermannCHEM BQRLZ6359-27-91 10:43:002.8 [facility] KwbapbkCFZKAOZQKU4939-77-96 10:43:003.7[facility] HermannHEMATOLOGY 2019-01-12 10:43:003.68[facility] EabaeluJLSBGYXCAK3490-22-75 10:43:0011.0[facility] GdwjsbtZVVRWXKJAV7519-26-31 10:43:0033.9[facility] TgglrzuBRKSIFIPUM3527-57-92 10:43:0092.1[facility] VfusjpfBGRBONJCVU3565-31-19 10:43:00 Test Item Value Reference Range Interpretation Comments MCH (test code = MCH) 30.0 pg 27.0-31.0 [facility] YrmhksxCUFEQOOQLU0624-27-54 10:43:0032.6[facility] HermannHEMATOLOGY 2019-01-12 10:43:0016.7[facility] IdiolbfERXJUOJMAK1439-13-93 10:43:79157Gjsixnse HdalesaJPEZEGZMOK6158-75-61 10:43:008.2[facility] WbjxkqoWVTTKCGVOA9111-80-87 10:43:0076.8[facility] OpjjhhsFPFARYDKUS9026-53-83 10:43:009.9[facility] Philip XILBDLFNBY2092-98-54 10:43:0011.8[facility] HconahsBWOXKRZAJB5871-87-43 10:43:00 1.2[facility] NjvesvmMIIRONZXYI8784-66-28 10:43:000.3[facility] HermannHEMATOLOGY 2019-01-12 10:43:002.8[facility] LzgmiyuMRZTOQLUNS0365-99-59 10:43:000.4[facility] ZacweenHPBQUBFIQZ9035-98-81 10:43:000.4[facility] HermannBACTERIAL - SEROLOGY 2019-01-10 09:33:00Urine *NA*(01/10/19 3:33 AM)[facility]annBACTERIAL - GJQDPJTZ1015-70-28 09:33:00Negative (01/10/19 3:33 AM)[facility] FBOCV5682-98-10 09:33:00Yellow *NA*(01/10/19 3:33 AM)[facility] SYRBZ5571-75-76 09:33:00Clear (01/10/19 3:33 AM)[facility] STOOL 2019-01-10 09:33:00 Test Item Value Reference Range Interpretation Comments UA Spec Grav (test code = UA Spec 1.014 1 Grav) [facility] [id number] 09:33:00 Test Item Value Reference Range Interpretation Comments UA pH (test code = UA pH) 5.0 1 5.0-8.0 [facility] PXXTW5910-25-81 09:33:00Negative (01/10/19 3:33 AM) [facility] CRGBT7125-53-02 09:33:00Negative *NA*(01/10/19 3:33 AM)[facility] JCCLP9415-38-56 09:33:00Trace *ABN*(01/10/19 3:33 AM)[facility] HZLLK0174-88-04 09:33:00Negative *NA*(01/10/19 3:33 AM)[facility] XMZZN1413-00-75 09:33:00Negative (01/10/19 3:33 AM)[facility] PFMEJ7382-22-37 09:33:00Negative (01/10/19 3:33 AM) [facility] MWKJJ8215-87-96 09:33:00Negative (01/10/19 3:33 AM) [facility] QCXHG2179-60-74 09:33:00None Seen (01/10/19 3:33 AM) [facility] NZRLA7240-84-80 09:33:00<1[facility] PXQPX0682-66-43 09:33:00<1[facility] HermannVIRAL - YZPWFMYT6379-10-72 07:15:00Negative (01/10/19 1:15 AM)[facility] HermannVIRAL - KEOFJFUX4454-71-56 07:15:00Negative (01/10/19 1:15 AM)[facility] HermannCARDIAC EIIUNFR0663-86-86 05:21:000.09[facility] HermannCHEM DZJFO5605-12-72 05:21:007.1[facility] HermannCHEM UMZOT8079-79-04 05:21:003.1[facility] HermannCHEM QUKTJ9922-74-47 05:21:0027 [facility]annCHEM QDDOR4247-11-09 05:21:0027[facility] HermannCHEM PANEL 2019-01-10 05:21:85709Dzudxvmn HermannCHEM JXMDG7218-16-95 05:21:000.5[facility] HermannCHEM EQZUJ1182-97-69 05:21:00 Test Item Value Reference Range Interpretation Comments B/C Ratio (test code = B/C Ratio) 17 1 6-25 [facility] PBJDV1910-69-98 05:21:004.0[facility] 2019-01-10 05:21:00 Test Item Value Reference Range Interpretation Comments A/G Ratio (test code = A/G Ratio) 0.8 1 0.7-1.6 [facility]CHE[facility] XGHFN3935-07-19 05:21:000.9[facility] 2019-01-10 05:21:00 Test Item Value Reference Range Interpretation Comments INR (test code = INR) 1.08 1 0.85-1.17 [facility]MoxmwvaHMNPVHIHHD7697-09-07 05:21:00 Test Item Value Reference Range Interpretation Comments PT (test code = PT) 13.8 s 12.0-14.7 [facility] SouthSegcsguPUFYOSTGIW4275-52-97 05:21:00 Test Item Value Reference Range Interpretation Comments PTT (test code = PTT) 23.3 s 22.9-35.8 [facility] SouthOnevsbgSBTEXHHPQC8723-12-82 05:21:000.2[facility] HermannOrthopantogram 2018-12-17 17:21:12This procedure requires no interpretation from the radiologist.MD BlackwellX-ray Femur 2 Views Cbnhl9760-37-52 13:51:37Uncomplicated internal fixation of right intertrochanteric fracture [...] of right intertrochanteric fracture with progressive healing.MD Blackwell
== END 2019-12-02 13:21 | disposition home or self-care (01) | DRG 292 ==
LOC: ER 22:42 → ERHOLD 12-01 01:23 → 2ND 12-01 08:30
PROVIDERS: ADMIT Hospitalist; ATTEND Family Medicine
DX: I11.0 Hypertensive heart disease with heart failure (principal); I48.20 Chronic atrial fibrillation, unspecified; I50.33 Acute on chronic diastolic (congestive) heart failure; K21.9 Gastro-esophageal reflux disease without esophagitis; I25.10 Atherosclerotic heart disease of native coronary artery without angina pectoris; I25.2 Old myocardial infarction; R77.8 Other specified abnormalities of plasma proteins; Z87.891 Personal history of nicotine dependence; Z88.8 Allergy status to other drugs, medicaments and biological substances; Z79.899 Other long term (current) drug therapy; Z95.5 Presence of coronary angioplasty implant and graft; Z88.5 Allergy status to narcotic agent; Z88.1 Allergy status to other antibiotic agents; Z79.01 Long term (current) use of anticoagulants; Z91.19 Patient's noncompliance with other medical treatment and regimen; Z85.828 Personal history of other malignant neoplasm of skin; Z20.828 Contact with and (suspected) exposure to other viral communicable diseases
CPT/HCPCS: 36415; 71045; 80048; 80061; 80076; 83735; 83880; 84132; 84439; 84443; 84484; 85025; 85610; 93005; 93306; 96374; 99285; J1940; U0002

== ENCOUNTER 2020-03-21 17:53 | Observation (INO) | payer OTHER ==
[~2020-03-21 17:53] MED LIST: MIDAZOLAM HCL 2 MG/2 ML INJ ONE
--- OUTSIDE RECORDS SUMMARY | 2020-03-21 17:56 | XMS REPORT | Continuity of Care Document ---
:1935 Author Organization [employer] Care Team Providers Name Role Phone [employer] Unavailable Un available Problems Problem Status Onset Date Classification Date Comments Sour ce Reported Chills 01/09/2019 01/21/2019 [facility] [place] (without [place] fever) FEVER Active 01/09/2019 [place] Medications Medication Details Route Status Patient Ordering Order Source Instructions Provider Date [place] Notes: (Same Inactive MH Oil Enema as:Fleet 019 [place] Oil [place] Enema) naproxen 500 mg 500 mg = 1 tab, Active MH oral tablet PO, BID, X 7 019 [place] day, # 14 tab, [place] 0 Refill(s), Pharmacy: [facility]/pharmacy #[id number] bisacodyl 10 mg 10 mg = 1 supp, Active MH rectal SD, Daily, PRN 019 [place] suppository Constipation, # [place] 10 supp, 0 Refill(s), Pharmacy: [facility]/pharmacy #[id number] Docusate Sodium 100 mg = 1 cap, Active MH 100 MG Oral PO, BID, # 60 019 [place] Capsule cap, 0 [place] [Colace] Refill(s), Pharmacy: [facility]/pharmacy #[id number] bisacodyl 5 mg 10 mg = 2 tab, Active MH oral enteric PO, Daily, PRN 019 [place] coated tablet Constipation, X [place] 10 day, # 20 tab, 0 Refill(s), Pharmacy: [facility]/pharmacy #[id number] POLYETHYLENE 17 gm, PO, Active MH GLYCOL 3350 142 Daily, PRN 019 [place] MG/ML Oral Constipation, # [place] Solution 255 gm, 0 [Miralax] Refill(s), Pharmacy: [facility]/pharmacy #[id number] Lactulose 667 Notes: (Same No Longer MH MG/ML Oral as:Chronulac) Active 019 [place] Solution [place] Lactulose 667 Notes: (Same Inactive MH MG/ML Oral as:Chronulac) 019 [place] Solution [place] Dulcolax Notes: (Same No Longer Laxative As: Dulcolax, Active 019 [place] Bisco-Lax) [place] Melatonin 3 MG Notes: (Same No Longer Extended as: Melatonin) Active 019 [place] Release Tablet [place] Alprazolam 0.25 Notes: With Inactive MG Oral Tablet food or milk 019 [place] [Xanax] (Same as: [place] Xanax) Alprazolam 0.25 Notes: With Inactive MH MG Oral Tablet food or milk 019 [place] [Xanax] (Same as: [place] Xanax) pantoprazole Notes: Tablet No Longer should not be Active 019 [place] chewed or [place] crushed. (Same as: Protonix) Phenergan Notes: (Same No Longer as: Phenergan) Active 019 [place] Phenergan 25 mg, Route: Inactive IM, Q6H, Dosing 019 [place] Weight 74.2, [place] kg, PRN Nausea & Vomiting, Start date: 01/14/19 18:40:00 INDUSTRY SEGMENT SPECIALIST, Duration: 30 day, Stop date: 02/13/19 18:39:00 INDUSTRY SEGMENT SPECIALIST Dulcolax Notes: (Same Inactive Laxative As: Dulcolax, [...] as: Duoneb) Active 019 [place] Ipratropium [place] Brooten 0.167 MG/ML Inhalant Solution Docusate Sodium 100 [...] [place] Famotidine 20 Notes: (Same No Longer MG Oral Tablet as: Pepcid) Active 019 [place] Levofloxacin Notes: (Same No Longer as:Levaquin) Active 019 [place] Docusate Sodium Notes: (Same No Longer M H 100 MG Oral as: Colace) (Do Active 019 [place] Capsule Not Crush) [place] Acetaminophen Notes: Do not No Longer MH 325 MG / exceed 4gm/day Active 019 [place] Hydrocodone of [place] Bitartrate 10 acetaminophen. MG Oral Tablet (Same as: [place] [Lincoln 10/325] 325/10) clopidogrel Notes: (Same No Longer As: Plavix) Active 019 [place] Flomax Notes: (Same No Longer As: Flomax) Active 019 [place] "Do Not Crush" [place] Morphine 2 mg, 1 mL, No Longer Route: IVP, Active 019 [place] Drug form: [place] SOLN, Q4H, Dosing Weight 74.2, kg, PRN Pain Score 7-10, Start date: 01/10/19 5:04:00 INDUSTRY SEGMENT SPECIALIST, Duration: 30 day, Stop date: 02/09/19 5:03:00 INDUSTRY SEGMENT SPECIALIST, 0 Streptococcus Notes: Shake No Longer MH pneumoniae well prior to Active 019 [place] serotype 1 use (Same as: [place] capsular Prevnar 13) antigen diphtheria [id number] protein conjugate vaccine / Streptococcus pneumoniae serotype 14 capsular antigen diphtheria [id number] protein conjugate vaccine / Streptococcus pneumoniae serotype [...] as: Duoneb) Active 019 [place] Ipratropium [place] Brooten 0.167 MG/ML Inhalant Solution Ondansetron Notes: (Same [...] Total Volume: 1,000, Start date: 01/10/19 2:33:00 INDUSTRY SEGMENT SPECIALIST, Duration: 1 doses or times, Stop date: 01/10/19 19:14:00 INDUSTRY SEGMENT SPECIALIST, 1.91, m2, 0 Morphine Notes: (Same Inactive as:MORPhine 019 [place] Sulfate) [place] Zofran Notes: (Same Inactive as: Zofran) 019 [place] MEDICATION [place] WASTE Product Size: 4 mg Product Wasted: ___ mg Levaquin Notes: (Same Inactive as:Levaquin) 019 [place] Zofran Notes: (Same No Longer as: Zofran) [...] Weight 74.2 kg, Start date: 01/09/19 22:20:00 INDUSTRY SEGMENT SPECIALIST, Stop date: 01/09/19 22:20:00 INDUSTRY SEGMENT SPECIALIST, 0 Allergies, Adverse Reactions, Alerts Substance Category Reaction Severity Reaction Status Date Comments S ource type Reported codeine Assertion Drug Active MH allergy [place] Keflex Assertion Drug Active allergy [place] Immunizations No Data Provided for This Section Results Order Name Results Value Reference Date Interpretation Comments Cassidy rce Range URINE AND UA Color Yellow Yellow 01/16 [place] *NA* /2018 [place] (01/15/19 6:22 PM) [place] URINE AND UA Turbidity Clear Clear 01/16 STO[place] (01/15/19 6:22 PM) [place] URINE AND UA Spec Grav 1.023 <=1.030 01/16 STOOL [place] URINE AND UA pH 5.0 5.0 - 8.0 01/16 STOOL [place] URINE AND UA Protein Negative Negative 01/16 STO[place] (01/15/19 6:22 PM) [place] URINE AND UA Glucose Negative Negative 01/16 STOOL *NA* /2018 [place] (01/15/19 6:22 PM) [place] URINE AND UA Ketones 20 mg/dL Negative 01/16 STOOL mg/dL [place] URINE AND UA Bili Negative Negative 01/16 STOOL *NA* [place] (01/15/19 6:22 PM) [place] URINE AND UA Blood Negative Negative 01/16 STO[place] (01/15/19 6:22 PM) [place] URINE AND UA <=1.0 0.1 - 1.0 01/16 STO[place] Urobilinogen mg/dL [place] URINE AND UA Nitrite Negative Negative 01/16 STO[place] (01/15/19 6:22 PM) [place] URINE AND UA Leuk Est Negative Negative 01/16 STO[place] (01/15/19 6:22 PM) [place] URINE AND UA Sq Epi None Seen Few 01/16 STO[place] (01/15/19 6:22 PM) [place] URINE AND UA WBC 1 0 - 5 01/16 STOOL [place] URINE AND UA RBC 1 0 - 2 01/16 STOOL [place] URINE AND UA Mucus Few /LPF None Seen 01/16 STOOL /LPF [place] CHEM PANEL Magnesium Lvl 2.3 1.8 - 2.4 01/14 [place] CHEM PANEL Phosphorus 3.0 2.5 - 4.5 01/14 [place] ELECTROLYTES AGAP 10.3 10.0 - 01/14 MH 20.0 [place] ELECTROLYTES Glucose Lvl 104 70 - 99 01/14 [place] ELECTROLYTES BUN 15 7 - 22 01/14 [place] ELECTROLYTES Creatinine Lvl 0.69 0.50 - 01/14 MH 1.40 [place] ELECTROLYTES Sodium Lvl 138 135 - 145 01/14 [place] ELECTROLYTES Potassium Lvl 4.3 3.5 - 5.1 01/14 [place] ELECTROLYTES Chloride Lvl 106 95 - 109 01/14 [place] ELECTROLYTES CO2 26 24 - 32 01/14 [place] ELECTROLYTES Calcium Lvl 8.9 8.5 - 10.5 01/14 [place] ELECTROLYTES eGFR 87 01/14 Comment: The Sugar [...] HEMATOLOGY WBC 2.6 3.7 - 10.4 01/14 [place] HEMATOLOGY RBC 3.79 4.70 - 01/14 MH 6.10 [place] HEMATOLOGY Hgb 11.1 14.0 - 01/14 MH 18.0 [place] HEMATOLOGY Hct 34.9 42.0 - 01/14 MH 54.0 [place] HEMATOLOGY MCV 92.0 80.0 - 01/14 MH 94.0 [place] HEMATOLOGY MCH 29.3 27.0 - 01/14 MH 31.0 [place] HEMATOLOGY MCHC 31.8 32.0 - 01/14 MH 36.0 [place] HEMATOLOGY RDW 16.5 11.5 - 01/14 MH 14.5 [place] HEMATOLOGY Platelet 148 133 - 450 01/14 [place] HEMATOLOGY MPV 8.3 7.4 - 10.4 01/14 [place] HEMATOLOGY Segs 66.8 45.0 - 01/14 MH 75.0 [place] HEMATOLOGY Lymphocytes 12.6 20.0 - 01/14 MH 40.0 [place] HEMATOLOGY Monocytes 8.4 2.0 - 12.0 01/14 [place] HEMATOLOGY Eosinophils 11.5 0.0 - 4.0 01/14 [place] HEMATOLOGY Basophils 0.7 0.0 - 1.0 01/14 [place] HEMATOLOGY Neutrophils # 1.7 1.5 - 8.1 01/14 [place] HEMATOLOGY Lymphocytes # 0.3 1.0 - 5.5 01/14 [place] HEMATOLOGY Monocytes # 0.2 0.0 - 0.8 01/14 [place] HEMATOLOGY Eosinophils # 0.3 0.0 - 0.5 01/14 [place] CHEM PANEL Magnesium Lvl 2.0 1.8 - 2.4 01/13 [place] CHEM PANEL Phosphorus 3.6 2.5 - 4.5 01/13 [place] CHEM PANEL Glucose Lvl 127 70 - 99 01/13 [place] CHEM PANEL BUN 9 7 - 22 01/13 [place] CHEM PANEL Creatinine Lvl 0.71 0.50 - 01/13 MH 1.40 [place] CHEM PANEL Sodium Lvl 139 135 - 145 01/13 [place] CHEM PANEL Potassium Lvl 4.2 3.5 - 5.1 01/13 [place] CHEM PANEL Chloride Lvl 106 95 - 109 01/13 [place] CHEM PANEL CO2 27 24 - 32 01/13 [place] CHEM PANEL AGAP 10.2 10.0 - 01/13 MH 20.0 [place] CHEM PANEL Calcium Lvl 8.9 8.5 - 10.5 01/13 [place] CHEM PANEL eGFR 86 01/13 Result Comment: [...] 63.6 45.0 - 01/13 MH 75.0 2019 [place] HEMATOLOGY Lymphocytes 19.5 20.0 - 01/13 MH 40.0 [place] HEMATOLOGY Monocytes 11.0 2.0 - 12.0 01/13 [place] HEMATOLOGY Eosinophils 5.2 0.0 - 4.0 01/13 [place] HEMATOLOGY Basophils 0.7 0.0 - 1.0 01/13 [place] HEMATOLOGY Neutrophils # 1.4 1.5 - 8.1 01/13 [place] HEMATOLOGY Lymphocytes # 0.4 1.0 - 5.5 01/13 [place] HEMATOLOGY Monocytes # 0.2 0.0 - 0.8 01/13 [place] HEMATOLOGY Eosinophils # 0.1 0.0 - 0.5 01/13 [place] HEMATOLOGY WBC 2.2 3.7 - 10.4 01/13 [place] HEMATOLOGY RBC 3.60 4.70 - 01/13 MH 6.10 [place] HEMATOLOGY Hgb 10.8 14.0 - 01/13 MH 18.0 [place] HEMATOLOGY Hct 33.4 42.0 - 01/13 MH 54.0 [place] HEMATOLOGY MCV 92.9 80.0 - 01/13 MH 94.0 [place] HEMATOLOGY MCH 30.1 27.0 - 01/13 MH 31.0 [place] HEMATOLOGY MCHC 32.4 32.0 - 01/13 MH 36.0 [place] HEMATOLOGY RDW 17.0 11.5 - 01/13 MH 14.5 [place] HEMATOLOGY Platelet 108 133 - 450 01/13 [place] HEMATOLOGY MPV 8.0 7.4 - 10.4 01/13 [place] CHEM PANEL Glucose Lvl 141 70 - 99 01/12 [place] CHEM PANEL BUN 7 7 - 22 01/12 [place] CHEM PANEL Creatinine Lvl 0.69 0.50 - 01/12 MH 1.40 [place] CHEM PANEL Sodium Lvl 134 135 - 145 01/12 [place] CHEM PANEL Potassium Lvl 4.3 3.5 - 5.1 01/12 [place] CHEM PANEL Chloride Lvl 101 95 - 109 01/12 [place] CHEM PANEL CO2 26 24 - 32 01/12 [place] CHEM PANEL Calcium Lvl 8.5 8.5 - 10.5 01/12 [place] CHEM PANEL eGFR 87 01/12 Result Comment: [...] AGAP 11.3 10.0 - 01/12 MH 20.0 [place] CHEM PANEL Magnesium Lvl 1.9 1.8 - 2.4 01/12 [place] CHEM PANEL Phosphorus 2.8 2.5 - 4.5 01/12 [place] HEMATOLOGY WBC 3.7 3.7 - 10.4 01/12 [place] HEMATOLOGY RBC 3.68 4.70 - 01/12 MH 6.10 [place] HEMATOLOGY Hgb 11.0 14.0 - 01/12 MH 18.0 [place] HEMATOLOGY Hct 33.9 42.0 - 01/12 MH 54.0 [place] HEMATOLOGY MCV 92.1 80.0 - 01/12 MH 94.0 [place] HEMATOLOGY MCH 30.0 27.0 - 01/12 MH 31.0 [place] HEMATOLOGY MCHC 32.6 32.0 - 01/12 MH 36.0 [place] HEMATOLOGY RDW 16.7 11.5 - 01/12 MH 14.5 [place] HEMATOLOGY Platelet 131 133 - 450 01/12 [place] HEMATOLOGY MPV 8.2 7.4 - 10.4 01/12 [place] HEMATOLOGY Segs 76.8 45.0 - 01/12 MH 75.0 /2018 [place] HEMATOLOGY Lymphocytes 9.9 20.0 - 01/12 MH 40.0 [place] HEMATOLOGY Monocytes 11.8 2.0 - 12.0 01/12 [place] HEMATOLOGY Eosinophils 1.2 0.0 - 4.0 01/12 [place] HEMATOLOGY Basophils 0.3 0.0 - 1.0 01/12 [place] HEMATOLOGY Neutrophils # 2.8 1.5 - 8.1 01/12 [place] HEMATOLOGY Lymphocytes # 0.4 1.0 - 5.5 01/12 [place] HEMATOLOGY Monocytes # 0.4 0.0 - 0.8 01/12 [place] BACTERIAL - Source Strep Urine 01/10 SEROLOGY *NA* /2019 [place] (01/10/19 3:33 AM) [place] BACTERIAL - Strep Negative Negative 01/10 SEROLOGY pneumoniae Ag (01/10/19 3:33 AM) [place] URINE AND UA Color Yellow Yellow 01/10 STOOL *NA* /2018 [place] (01/10/19 3:33 AM) [place] URINE AND UA Turbidity Clear Clear 01/10 STO[place] (01/10/19 3:33 AM) [place] URINE AND UA Spec Grav 1.014 <=1.030 01/10 STOOL /2018 [place] URINE AND UA pH 5.0 5.0 - 8.0 01/10 STOOL /2018 [place] URINE AND UA Protein Negative Negative 01/10 STO[place] (01/10/19 3:33 AM) [place] URINE AND UA Glucose Negative Negative 01/10 STOOL *NA* /2018 [place] (01/10/19 3:33 AM) [place] URINE AND UA Ketones Trace Negative 01/10 [place] *ABN* /2018 [place] (01/10/19 3:33 AM) [place] URINE AND UA Bili Negative Negative 01/10 STOOL *NA* /2018 [place] (01/10/19 3:33 AM) [place] URINE AND UA Blood Negative Negative 01/10 STO[place] (01/10/19 3:33 AM) [place] URINE AND UA <=1.0 0.1 - 1.0 01/10 STOOL Urobilinogen mg/dL [place] URINE AND UA Nitrite Negative Negative 01/10 STO[place] (01/10/19 3:33 AM) [place] URINE AND UA Leuk Est Negative Negative 01/10 [place] (01/10/19 3:33 AM) [place] URINE AND UA Sq Epi None Seen Few 01/10 [place] (01/10/19 3:33 AM) [place] URINE AND UA WBC <1 0 - 5 01/10 STOOL /2018 [place] URINE AND UA RBC <1 0 - 2 01/10 STOOL [place] URINE AND UA Mucus Few /LPF None Seen 01/10 STO[place] /LPF /2018 [place] VIRAL - Influ A Negative Negative 01/10 SEROLOGY (01/10/19 1:15 AM) /2018 [place] VIRAL - Influ B Negative Negative 01/10 SEROLOGY (01/10/19 1:15 AM) [place] CARDIAC Troponin-I 0.09 0.00 - 01/10 ENZYMES 0.40 [place] CHEM PANEL Procalcitonin <0.05 0.00 - 01/10 Lvl ng/mL 0.10 [place] CHEM PANEL Total Protein 7.1 6.4 - 8.4 01/10 [place] CHEM PANEL Albumin Lvl 3.1 3.5 - 5.0 01/10 [place] CHEM PANEL ALT 27 0 - 65 01/10 [place] CHEM PANEL AST 27 0 - 37 01/10 [place] CHEM PANEL Alk Phos 136 39 - 136 01/10 [place] CHEM PANEL Bili Total 0.5 0.2 - 1.3 01/10 [place] CHEM PANEL B/C Ratio 17 6 - 25 01/10 [place] CHEM PANEL Globulin 4.0 2.7 - 4.2 01/10 [place] CHEM PANEL A/G Ratio 0.8 0.7 - 1.6 01/10 [place] CHEM PANEL Lactic Acid 0.9 0.5 - 2.2 01/10 Lvl /2018 [place] HEMATOLOGY INR 1.08 0.85 - 01/10 1.17 [place] HEMATOLOGY PT 13.8 12.0 - 01/10 14.7 [place] HEMATOLOGY PTT 23.3 22.9 - 01/10 35.8 [place] HEMATOLOGY Eosinophils # 0.2 0.0 - 0.5 01/10 [place] Pathology Reports No Data Provided for This Section Diagnostic Reports Report Value Date Source Knee wo contrast CT CLINICAL HISTORY: , - pain and swelling [facility] EXAM: CT right knee without contrast 01/12/2019 15:59 INDUSTRY SEGMENT SPECIALIST COMPARISON: None. TECHNIQUE: Volumetric CT acq uisition [...] Knee 3 Views Bilateral DX 01/12/2019 10:37 INDUSTRY SEGMENT SPECIALIST 01/12/2019 [place] DX Clinical: - acute swelling Comparison: No [...] DX Chest 1view DX 01/09/2019 10:20 PM INDUSTRY SEGMENT SPECIALIST [employer] INDICATION: - Undifferentiated Sepsis COMPARISON: No prior [...] HISTORY: , - pain, fever 9 MH [place] pelvis DX EXAM: Portable AP view of th e pelvis and AP and lateral views of the right hip 01/09/2019 22:19 INDUSTRY SEGMENT SPECIALIST Comparisons: Portable AP view of the chest [...] r [place] Heart Rate 77 01/19/2019 MH [place] Respitory Rate 18 01/19/2019 MH [place] Systolic (mm Hg) 119 01/19/2019 [place] Diastolic (mm Hg) 80 01/19/2019 [place] and Temperature Oral (F) 97.9 F 01/19/2019 [place] Heart Rate 78 01/19/2019 MH [place] Respitory Rate 18 01/19/2019 MH [place] Systolic (mm Hg) 154 01/19/2019 [place] Diastolic (mm Hg) 84 01/19/2019 MH [place] and Temperature Oral (F) 97.6 F 01/19/2019 [place] Heart Rate 76 01/19/2019 MH [place] Respitory Rate 18 01/19/2019 MH [place] Systolic (mm Hg) 136 01/19/2019 [place] Diastolic (mm Hg) 78 01/19/2019 [place] L and Height 170.18 cm 01/10/2019 [place] Weight 74.2 01/10/2019 [place] Encounters Location Location Encounter Encounter Reason Attending ADM RI Stat us Source Details Type Number For Provider Date Date Visit [facility] Inpatient [id number] [place] 01/10 01/20 [facility] [place] Procedures No Data Provided for This Section Assessment and Plan Assessment and Plan Date Source Extracted from:Title: Progress Note 01/20/2019 Debra tejeda Radha Author: Barbara Ag MD Date: 01/18/19 Gram-negative pneumonia Nausea History of brain cancer Bilateral knee pain due to osteoarthritis Physical deconditioning BPH CAD s/p PCI Plan: --prn phenergan for nausea continue pantoprazole --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
--- OUTSIDE RECORDS SUMMARY | 2020-03-21 17:57 | XMS REPORT | Continuity of Care Document ---
:1935 Author Organization [facility] t Address [address] [place] [address] [place]. [address] [place] [id number] Care Team Providers Name Role Phone Komal LOCKETT, N Primary Care Physician Jackelyn PACE, L Attending Clinician Unavailable Flor Ag Attending Clinician Nithya Admitting Clinician Payers Payer Name Policy Type Policy Effective Date Expiration Date Sour ce Number AETNA MEDICAREAETNA [id number] 2013 MD Shahla ga MEDICARE 00:00:00 [id number] -PresentMedicare Problems Condition Condition Condition Status Onset Resolution Last Treating Co mments Source Name Details Category Date Date Treatment Clinician Date FEVER Diagnosis Active 2018-022019-01-27 Mem oria 1-14 22:24:00 l FEVER 00:00: Philip 00 Active 01/09/2019 [place] Unexplaine Unexplaine Disease Active 2018-02 Last M D d falls d falls 0-22 Assessmen Willis so 00:00: t & Plan: n 00 It is possible that Mr. Gaytan experienc ed a syncopal episode resulting in [...] 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 0- Assessmen A nderso impairment impairment 00:00: t & Plan: n , so , so 00 stated stated Tomaseyuliana showed significa nt cognitive impairmen t across several domains on MOCA screening test. Suspect dementia but will refer for formal neurocogn itive testing to better define impairmen ts. We will plan to follow up with him and his family after testing is complete. Encounter Encounter Disease Active 2018-02 for for Anderso observatio observatio 00:00: n n for n for 00 other other suspected suspected condition condition ruled out ruled out Displaced Displaced Disease Active Overview: intertroch intertroch 10-29 Added An derso anteric anteric 00:00: automatic n fracture fracture 00 ally from of right of right request femur femur for surgery [id number] Encounter Encounter Disease Active Overview: for other [...] aortic stenosis or AR. Mild MR and TR5/14/19 MPI: EF 47% mildly 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 pgdfbc0002/12 Carotid Duplex: <50% plaque within right ICA, normal left ICA, antegrade flow within bilateral vertebral arteriesO records from [place], [place] Tripp t Cardiolog y[facility] 05/09[facility]17: LAD prox patent stent X [...] Chills Problem 2018-022019-01-21 2019-01-21 M emoria (without 1-14 22:44:12 22:44:12 l fever) Chills 18:00: [place] (without 00 fever) 01/09/2019 01/21/2019 [place] Allergies, Adverse Reactions, Alerts Allergy Allergy Status Severity Reaction(s) Onset Inactive Treating Comm ents Source Name Type Date Date Clinician codeine codeine Active Memoria l [place] Keflex Keflex Active Memoria l [place] Family [...] and 2018-12-17 2018-12-17 Former user MD Willis son exposure 00:00:00 00:00:00 Alcohol intake 2018-12-17 2018-12-17 [...] Mineral Oil 1-24 (Same l Enema 19:58: as:Fleet [place] 00 Mineral Oil Enema) naproxen 2018-02 Yes 500 mg = 1 Mem oria 500 mg oral 1-24 tab, PO, l tablet 15:04: BID, X 7 [place] 00 day, # 14 tab, 0 Refill(s), Pharmacy: [id number] bisacodyl 2018-02 Yes 10 mg = 1 Mem oria 10 mg 1-24 supp, ME, l rectal 15:04: Daily, PRN Lilly nn suppository 00 Constipati on, # 10 supp, 0 Refill(s), Pharmacy: [id number] Docusate 2018-02 Yes 100 mg = 1 Mem oria Sodium 100 1-24 cap, PO, l MG Oral 15:04: BID, # 60 Lilly nn Capsule 00 cap, 0 [Colace] Refill(s), Pharmacy: [id number] bisacodyl 5 2018-02 Yes 10 mg = 2 M emoria mg oral 1-24 tab, PO, l enteric 15:04: Daily, PRN Herm ayush coated 00 Constipati tablet on, X 10 day, # 20 tab, 0 Refill(s), Pharmacy: [id number] POLYETHYLEN 2018-02 Yes 17 gm, PO, Memoria E GLYCOL 1-24 Daily, PRN l 3350 142 15:04: Constipati Her pinon MG/ML Oral 00 on, # 255 Solution gm, 0 [Miralax] Refill(s), Pharmacy: [id number] Lactulose 2018-02 No Notes: Memori a 667 MG/ML 1-24 (Same l Oral 01:11: as:Chronul [place] Solution 00 ac) Lactulose 2018-02 No Notes: Memori a 667 MG/ML 03-20 (Same l Oral 14:13: as:Chronul [place] Solution 00 ac) Dulcolax 2018-02 No Notes: Memoria Laxative 03-20 (Same As: l 12:41: Dulcolax, Philip 00 Bisco-Lax) Melatonin 3 2018-02 No Notes: Pepe micki MG Extended 03-20 (Same as: l Release 07:13: Melatonin) Herm ayush Tablet 00 Alprazolam 2018-02 No Notes: Memor ia 0.25 MG - With food l Oral Tablet 11:18: or milk Her pinon [Xanax] 00 (Same as: Xanax) Alprazolam 2018-02 No Notes: Memor ia 0.25 MG - With food l Oral Tablet 21:25: or milk Her pinon [Xanax] 00 (Same as: Xanax) pantoprazol 2018-02 No Notes: Pepe micki e - Tablet l 19:15: should not Philip 00 be chewed or crushed. 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 Albuterol 2018-02 No Notes: Memori a 0.833 MG/ML 1-18 (Same as: l / 20:49: Duoneb) [place] Ipratropium 00 [place] 0.167 MG/ML Inhalant Solution Docusate 2018-02 No 100 mg = 1 Mem oria Sodium 100 1-18 cap, PO, l MG Oral 16:51: BID, 0 [place] Capsule 00 Refill(s) Famotidine 2018-02 Yes 20 mg = 1 Me moria 20 MG Oral 1-18 tab, PO, l Tablet 16:51: BID, 0 [place] 00 Refill(s) naproxen 2018-02 No 500 mg = 2 Mem oria 250 mg oral 1-18 tab, PO, l tablet 16:51: BID, 0 [place] 00 Refill(s) Dulcolax 2018-02 No Notes: Memoria Laxative 1-18 (Same As: l 15:00: Dulcolax, [place] 00 Correctol) (Do Not Crush) "Do Not Crush" Miralax 2018-02 No Notes: Memoria 1-18 Dissolve l 15:00: in 8 oz of Philip 00 water or juice. (Same as: Miralax) Naproxen 2018-02 No Notes: Memoria 1-17 (Same as: l 16:38: Naprosyn) Philip 00 Take with food. Famotidine 2018-02 No Notes: Memor ia 20 MG Oral 1-16 (Same as: l Tablet 23:00: Pepcid) Philip Levofloxaci 2018-02 No Notes: Pepe micki n 1-16 (Same l 07:00: as:Levaqui [place] 00 n) Docusate 2018-02 No Notes: Memoria Sodium 100 1-15 (Same as: l MG Oral 23:00: Colace) [place] Capsule 00 (Do Not Crush) Acetaminoph 2018-02 No Notes: Do M emoria en 325 MG / 1-15 not exceed l Hydrocodone 19:50: 4gm/day of [place] Bitartrate 00 acetaminop 10 MG Oral hen. 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, Duration: 30 day, Stop date: 02/09/19 5:03:00 ROOF BOLTER OPERATOR, 0 Streptococc 2018-02 No Notes: Pepe micki us 1-15 Shake well l pneumoniae 09:35: prior to Her pinon serotype 1 51 use (Same capsular as: antigen Prevnar diphtheria 13) [id number] protein conjugate vaccine / Streptococc us pneumoniae serotype 14 capsular antigen diphtheria [id number] protein conjugate vaccine / Streptococc us pneumoniae serotype 18C capsular antigen d metoprolol 2018-02 Yes 50 mg = 1 Me moria 50 mg oral 1-15 tab, PO, l tablet, 09:19: Daily, # Clifford n extended 00 30 tab, 0 release Refill(s) clopidogrel 2018-02 Yes 75 mg = 1 M emoria 75 mg oral 1-15 tab, PO, l tablet 09:19: Daily, # [place] 00 30 tab, 0 Refill(s) atorvastati 2018-02 [...] 1-15 (Same as: l / 09:00: Duoneb) [place] Ipratropium 00 [place] 0.167 MG/ML Inhalant Solution Ondansetron 2018-02 No Notes: Pepe micki 1-15 (Same as: l 08:36: Zofran) MEDICATION WASTE Product Size: 4 mg Product Wasted: ___ mg Albuterol 2018-02 No Notes: SEE Me moria 0.83 MG/ML 1-15 RT l Inhalant 08:36: DOCUMENTAT Her pinon Solution 00 ION (Same as: Proventil) NS 1,000 mL 2018-02 No 1,000 mL, M emoria 03-12 Rate: 60 l 08:33: ml/hr, Philip 00 Infuse over: 16.7 hr, Route: IV, Dosing Weight 74.2 kg, Total Volume: 1,000, Start date: 01/10/19 2:33:00 ROOF BOLTER OPERATOR, Duration: 1 doses or times, Stop date: 01/10/19 19:14:00 ROOF BOLTER OPERATOR, 1.91, m2, 0 Morphine 2018-02 No Notes: Memoria -15 (Same l 07:20: as:MORPhin [place] 00 e Sulfate) Zofran 2018-02 No Notes: Memoria -15 (Same as: l 07:20: Zofran) Philip 00 MEDICATION WASTE Product Size: 4 mg Product Wasted: ___ mg Levaquin 2018-02 No Notes: Memoria -15 (Same l 07:17: as:Levaqui [place] 00 n) Zofran 2018-02 No Notes: Memoria -15 (Same as: l 04:21: Zofran) [place] 00 MEDICATION WASTE Product Size: 4 mg Product Wasted: ___ mg Saline 2018-02 No Notes: Memoria Flush 0.9% 15 (Same as: l 04:20: BD Philip 00 Posiflush) Sodium 2018-02 No 1,000 mL, Memori a Chloride 15 2,000 l 0.9% 04:20: ml/hr, Philip (Bolus) IV 00 Infuse Over: 0.5 hr, Route: IV, 1,000, Drug form: INJ, ONCE, Priority: STAT, Dosing Weight 74.2 kg, Start date: 01/09/19 22:20:00 ROOF BOLTER OPERATOR, Stop date: 01/09/19 22:20:00 ROOF BOLTER OPERATOR, 0 metoprolol 2018-02 Yes 50mg Take 50 mg M D tartrate 1-13 by mouth Anderso (LOPRESSOR) 17:53: twice n 50 mg 22 daily. tablet aspirin 81 2018-02 Yes 81mg Take 81 mg M D mg EC 13 by mouth Anderso tablet 17:53: daily. n [...] daily. n 1.1 % 00 of scalp Vadito dental teeth with cream cream and spit out as directed. (Do not eat, drink or rinse for 30 minutes). tamsulosin 2018-02 Yes .4mg Take 0.4 MD (FLOMAX) 0-09 mg by Anderso 0.4 mg 24 00:00: mouth n hr capsule 00 twice daily. celecoxib Yes Squamous 200mg Take 1 M D (CeleBREX) 7-25 cell capsule Darron o 200 mg 00:00: [...] Temperature Oral (F) 2019-01-19 21:26:00 97.6 F [facility] Heart Rate 2019-01-19 21:26:00 [facility] Respitory Rate 2019-01-19 21:26:00 Ada Baldwin Systolic (mm Hg) 2019-01-19 21:26:00 Pepe rial [place] Diastolic (mm Hg) 2019-01-19 21:26:00 Mem orial [place] Temperature Oral (F) 2019-01-19 17:23:00 97.9 F [facility] Heart Rate 2019-01-19 17:23:00 [facility] [place] Respitory Rate 2019-01-19 17:23:00 Memori al [place] Systolic (mm Hg) 2019-01-19 17:23:00 Pepe rial [place] Diastolic (mm Hg) 2019-01-19 17:23:00 Mem orial [place] Temperature Oral (F) 2019-01-19 13:47:00 97.6 F [facility] [place] Heart Rate 2019-01-19 13:47:00 [facility] [place] Respitory Rate 2019-01-19 13:47:00 Memori al [place] Systolic (mm Hg) 2019-01-19 13:47:00 Pepe rial [place] Diastolic (mm Hg) 2019-01-19 13:47:00 Mem orial [place] Height 2019-01-10 12:17:00 170.18 cm [facility] Philip Weight 2019-01-10 03:42:00 [facility] [place] Procedures This patient has no known procedures. Encounters Start End Encounter Admission Attending Care Care Encounter Source Date/Time Date/Time Type Type Clinicians Facility Department ID 2019-01-09 2019-01-19 Outpatient EDGAR Ag [facility] [id number] 21:18:46 18:08:00 Barbara 00 Flor 2019-01-10 2019-01-10 Inpatient E FB MED 7500 [facility] 15:16:00 01:33:00 Results Test Description Test Time Test Comments Results Result Comments Source URINE AND STOOL 2019-01-16 Yellow [facility] 00:22:00 *NA*(01/15/19 Philip 6:22 PM) URINE AND STOOL 2019-01-16 Clear [facility] 00:22:00 (01/15/19 6:22 Philip PM) URINE AND STOOL 2019-01-16 00:22:00 Test Item Value Reference Range Interpretation Comme nts UA Spec Grav (test code = UA Spec Grav) [facility] [id number] 00:22:00 Test Item Value Reference Range Interpretation Comments UA pH (test code = UA pH) 5.0 1 5.0-8.0 [facility]annURINE AND [id number] 00:22:00Negative (01/15/19 6:22 PM) [facility] [id number] 00:22:00Negative *NA*(01/15/19 6:22 PM)[facility] [id number] 00:22:00Negative *NA*(01/15/19 6:22 PM)[facility] QCBKS2003-14-78 00:22:00Negative (01/15/19 6:22 PM)[facility] IMJOR6324-56-56 00:22:00Negative (01/15/19 6:22 PM) [facility] OBRML0285-92-19 00:22:00Negative (01/15/19 6:22 PM) [facility] IJYKX6224-78-03 00:22:00None Seen (01/15/19 6:22 PM) [facility] SWLEG2519-59-93 00:22:001[facility] BCRPA6105-02-22 00:22:001[facility] HermannCHEM SBCPP3132-39-41 10:48:002.3 [facility]annCHEM ILMPR4610-28-79 10:48:003.0[facility] HermannELECTROLYTES 2019-01-14 10:48:0010.3[facility] AknmzoqDKTCNNDJFZYJ8448-30-76 10:48:28316 [facility] PgywtxaOTAJBJEGVQWB9479-68-72 10:48:0015[facility] HermannELECTROLYTES 2019-01-14 10:48:000.69[facility] SklkcchQQPCMRGUCAQF4487-37-79 10:48:86523 Memorial YgyezteGLBSBXPHYKJH0587-41-37 10:48:004.3[facility] HermannELECTROLYTES 2019-01-14 10:48:88187Ujszxxhy TfjnunyEROVRAJJOREX5476-88-12 10:48:0026[facility] SqvmzfaCHUMKCMBJKOP2141-41-13 10:48:008.9[facility] TrunhyfGSLCFLXPUIKM4337-65-82 10:48:0087[facility] PjpzjlxYCUFGXQUGL6224-40-45 10:48:002.6[facility] XSNTGXIWNT2275-74-87 10:48:003.79[facility] YmnjnkrACUZWPGSDA9369-18-91 10:48:00 11.1[facility] KkituuiDSWTOLMPJE5201-13-82 10:48:0034.9[facility] HermannHEMATOLOGY 2019-01-14 10:48:0092.0[facility] MfhpibcUFJKCXBWOH3529-93-89 10:48:00 Test Item Value Reference Range Interpretation Comments MCH (test code = MCH) 29.3 pg 27.0-31.0 [facility] TgvzxcyXWLBHHGFJW8777-30-08 10:48:0031.8[facility] HermannHEMATOLOGY 2019-01-14 10:48:0016.5[facility] YpjhwymYZYFWTKQYD9069-26-32 10:48:91183Mvpsfimv OkoamoqIUGPMRWLVP7770-07-50 10:48:008.3[facility] IcbtjhpKLAZUBNDRZ7267-20-76 10:48:0066.8[facility] GehyrucQWQJPKIUQK6506-98-23 10:48:0012.6[facility] [place] PJNZRPRPMF7525-04-46 10:48:008.4[facility] CiwpnkkTBGPFALGGO8789-51-81 10:48:00 11.5[facility] GdvqargHZINWAWLTQ2959-90-16 10:48:000.7[facility] HermannHEMATOLOGY 2019-01-14 10:48:001.7[facility] RsadqbrXQOCPIOLNR6056-06-63 10:48:000.3[facility] QmfiwptQVTMJKDPDJ6189-00-80 10:48:000.2[facility] YjwrbfbIJGEJBNEVM3548-56-45 10:48:000.3[facility] HermannCHEM MXWHN3232-64-77 10:15:002.0[facility] HermannCHEM CENJR9445-97-96 10:15:003.6[facility] HermannCHEM KKBTN6732-31-80 10:15:52603 [facility] HermannCHEM OTDTW1311-03-98 10:15:009[facility] HermannCHEM PANEL 2019-01-13 10:15:000.71[facility] HermannCHEM UQFGJ3373-75-19 10:15:75036Mcinocvl HermannCHEM XCLUZ4686-58-71 10:15:004.2[facility] HermannCHEM CLOXV4796-22-66 10:15:08222Klayrnqd HermannCHEM JLYTQ2547-54-01 10:15:0027[facility] HermannCHEM GNIKB6317-77-23 10:15:0010.2[facility] HermannCHEM FURVW5102-53-02 10:15:008.9 [facility] HermannCHEM LMOOX4985-93-89 10:15:0086[facility] HermannHEMATOLOGY 2019-01-13 10:15:0063.6[facility] ArxsfsmWFLSKHLPOS8697-13-24 10:15:0019.5[facility] WejewpfKOCPQUHGOA6608-65-34 10:15:0011.0[facility] NsambvjQFUQQEMBRX4169-48-72 10:15:005.2[facility] WsocpuoNTZISPGWHC5394-65-52 10:15:000.7[facility] [place] SVEJLYMQVT2983-55-19 10:15:001.4[facility] YmlwekrQWJOWBBUUH1111-21-57 10:15:000.4 [facility] SfxcdhyKTOUDFKENJ2962-13-98 10:15:000.2[facility] HermannHEMATOLOGY 2019-01-13 10:15:000.1[facility] GznfcuaZWPNASWIYF5977-89-44 10:15:002.2[facility] SsqfxavASWYLHUHWP1140-52-92 10:15:003.60[facility] AsuurntNJTWUUXJKC8487-93-11 10:15:0010.8[facility] SdikhukLSTVMEIBHK0658-41-73 10:15:0033.4[facility] [place] XNMUMNZSBA3836-39-36 10:15:0092.9[facility] QeipmlkOQCGLWSDCB4896-46-03 10:15:00 Test Item Value Reference Range Interpretation Comments MCH (test code = MCH) 30.1 pg 27.0-31.0 Memorial BjeucrrBEXNOTTCCH6660-10-30 10:15:0032.4[facility] HermannHEMATOLOGY 2019-01-13 10:15:0017.0[facility] TvtjozlYZKHDHQHBW8220-81-49 10:15:39373Hmmczxmp NteczwwSGIFFSBCZK8922-21-10 10:15:008.0[facility] HermannCHEM QOHRM8653-82-04 10:43:47666Tcuzxjwj HermannCHEM UUWYM4959-20-20 10:43:007[facility] HermannCHEM WGGTC2569-59-47 10:43:000.69[facility] HermannCHEM MRJVI0619-30-16 10:43:13818 [facility] HermannCHEM ELOLZ3496-85-54 10:43:004.3[facility] HermannCHEM PANEL 2019-01-12 10:43:81533Zxcxfgst HermannCHEM SRQTA5524-80-31 10:43:0026[facility] HermannCHEM TOZCD0300-29-24 10:43:008.5[facility] HermannCHEM HPDOA6746-61-36 10:43:0087[facility] HermannCHEM ESHMH5590-78-80 10:43:0011.3[facility] HermannCHEM JYBLP9893-07-80 10:43:001.9[facility] HermannCHEM XXFDA4380-81-41 10:43:002.8 Memorial ZplvjkaDJSBZFJCYZ2099-10-75 10:43:003.7[facility] HermannHEMATOLOGY 2019-01-12 10:43:003.68[facility] BnytqqxIHUSTEHINP3059-98-28 10:43:0011.0[facility] XhiyxsmEPJIYXKKUY8436-29-60 10:43:0033.9[facility] JotgawsGPRBNIIWTU8636-98-01 10:43:0092.1[facility] MeywwhmPOMREDUMTP4153-98-37 10:43:00 Test Item Value Reference Range Interpretation Comments MCH (test code = MCH) 30.0 pg 27.0-31.0 [facility] HuyicexQEFGYIWMGH9091-56-84 10:43:0032.6[facility] HermannHEMATOLOGY 2019-01-12 10:43:0016.7[facility] MtrixrgNTLCLKGJVG8485-28-98 10:43:16150Broqonfa AsxohzjLYHESRQASG0675-77-16 10:43:008.2[facility] XpsmgcvPDQMSEVXAO6615-59-84 10:43:0076.8[facility] PaacmmxUHONFHSAGE9226-37-43 10:43:009.9[facility] [place] FTUZDHGVEE7555-33-54 10:43:0011.8[facility] AidnghdEUBYLBNXHU1551-79-62 10:43:00 1.2[facility] NcexdiiTWAHZVTNDW4252-35-55 10:43:000.3[facility] HermannHEMATOLOGY 2019-01-12 10:43:002.8[facility] JoegengFROSQROGFR4400-96-48 10:43:000.4[facility] VfrnyxrYYMQFFDMNN1844-19-73 10:43:000.4[facility] HermannBACTERIAL - SEROLOGY 2019-01-10 09:33:00Urine *NA*(01/10/19 3:33 AM)[facility] HermannBACTERIAL - VPQVXCKQ0859-45-58 09:33:00Negative (01/10/19 3:33 AM)[facility]annURINE AND SQEQH0886-82-07 09:33:00Yellow *NA*(01/10/19 3:33 AM)[facility]annUR[facility] AND TDURP2867-18-09 09:33:00Clear (01/10/19 3:33 AM)[facility]ann[facility] AND STOOL 2019-01-10 09:33:00 Test Item Value Reference Range Interpretation Comments UA Spec Grav (test code = UA Spec 1.014 1 Grav) [facility] AND OCHNF5230-31-67 09:33:00 Test Item Value Reference Range Interpretation Comments UA pH (test code = UA pH) 5.0 1 5.0-8.0 [facility] AND QKALD1440-80-96 09:33:00Negative (01/10/19 3:33 AM) [facility] AND CWMJU3715-40-71 09:33:00Negative *NA*(01/10/19 3:33 AM)[facility] AND NMAEF1555-99-87 09:33:00Trace *ABN*(01/10/19 3:33 AM)[facility]ann[facility] AND RFDVN0996-48-73 09:33:00Negative *NA*(01/10/19 3:33 AM)[facility]ann[facility] AND OEHLV6670-01-22 09:33:00Negative (01/10/19 3:33 AM)[facility] AND MIAXL6869-66-38 09:33:00Negative (01/10/19 3:33 AM) [facility] GHJMK5314-89-48 09:33:00Negative (01/10/19 3:33 AM) [facility] YCQUO0697-51-02 09:33:00None Seen (01/10/19 3:33 AM) [facility] WNECD7128-05-08 09:33:00<1[facility]annUR[facility] AND LFYRS1821-25-70 09:33:00<1[facility] HermannVIRAL - ULKXKPNX6648-48-55 07:15:00Negative (01/10/19 1:15 AM)[facility] HermannVIRAL - AHSGCLSW0501-60-25 07:15:00Negative (01/10/19 1:15 AM)[facility] HermannCARDIAC KPADAHJ8009-80-59 05:21:000.09[facility] HermannCHEM WEEUN2518-34-91 05:21:007.1[facility] HermannCHEM ETCLH3327-80-01 05:21:003.1[facility] HermannCHEM YCEVS8499-27-40 05:21:0027 [facility] HermannCHEM BKXON9758-25-11 05:21:0027[facility] HermannCHEM PANEL 2019-01-10 05:21:31917Utedwyyh HermannCHEM ZWDVY0731-51-50 05:21:000.5[facility] HermannCHEM NZTKF8754-53-60 05:21:00 Test Item Value Reference Range Interpretation Comments B/C Ratio (test code = B/C Ratio) 17 1 6-25 [facility] HermannCHEM LQCGA8948-66-76 05:21:004.0[facility] HermannCHEM PANEL 2019-01-10 05:21:00 Test Item Value Reference Range Interpretation Comments A/G Ratio (test code = A/G Ratio) 0.8 1 0.7-1.6 [facility] HermannCHEM LKWKG5779-61-13 05:21:000.9[facility] HermannHEMATOLOGY 2019-01-10 05:21:00 Test Item Value Reference Range Interpretation Comments INR (test code = INR) 1.08 1 0.85-1.17 [facility]so[facility]ymuAKXHQHQBKF3952-89-37 05:21:00 Test Item Value Reference Range Interpretation Comments PT (test code = PT) 13.8 s 12.0-14.7 [facility] HospitalXeqfzmzZHQGGBRYCX7128-17-78 05:21:00 Test Item Value Reference Range Interpretation Comments PTT (test code = PTT) 23.3 s 22.9-35.8 [facility] HospitalUdluwaaEFLHBFJUEG0762-82-23 05:21:000.2[facility]
[2020-03-21] MEDS ORDERED: MIDAZOLAM HCL 2 MG/2 ML INJ ONE (19:09)
[2020-03-21] MEDS ORDERED: RSI MEDICATION KIT IV ONE (19:09)
--- NOTE | 2020-03-21 19:13 | RAD REPORT ---
EXAM DESCRIPTION: CT - Head Brain Wo Cont - 03/21/2020 7:00 pm CLINICAL HISTORY: WEAKNESS COMPARISON: Head Brain Wo Cont dated 06/22/2019 TECHNIQUE: Axial 5 mm thick images of the head were obtained without IV contrast. All CT scans are performed using dose optimization technique as appropriate and may include automated exposure control or mA/KV adjustment according to patient size. FINDINGS: No intracranial hemorrhage, mass, edema or shift of mid-line structures. No acute infarcti on changes seen. No cortical edema or sulcal effacement. Mild to moderate atrophy changes are present with ventricles in proportion. Chronic ischemic change present throughout the cerebral white matter. Intracranial findings are similar to the May 2019 study. Mastoid air cells and visualized portions of the paranasal sinuses are clear. No acute bony findings. IMPRESSION: Negative non-contrast CT head examination for acute findings. Moderate severity atrophy and chronic ischemic change similar to May 2019. Chronic ischemic changes can mask nonhemorrhagic acute infarction. MR brain followup can be obtained if there is ongoing concern for acute ischemia.
[2020-03-21 19:48] LABS: Absolute Lymphocytes (CBC) 0.9 K/uL (0.7-4.9); Basophils % 0.4 % (0-1.3); Hematocrit 38.6 % (39.6-49.0); Lymphocytes % 15.2 % (15.3-44.8); MPV 8.6 fL (7.6-11.3); RBC Red Blood Cell Count 3.95 M/uL (4.33-5.43)
[2020-03-21 19:51] LABS: Protime INR 1.56
[2020-03-21 20:23] LABS: Albumin 3.6 g/dL (3.4-5.0); Bilirubin Direct 0.2 mg/dL (0-0.2); Bilirubin Total 0.7 mg/dL (0.2-1.0); Magnesium 2.1 mg/dL (1.8-2.4); Potassium 3.8 mmol/L (3.5-5.1); Protein, Total 7.3 g/dL (6.4-8.2); Troponin (Emerg Dept Use Only) 0.07 ng/mL (0.0-0.045)
--- NOTE | 2020-03-21 20:45 | RAD REPORT ---
EXAM DESCRIPTION: RAD - Chest Single View - 03/21/2020 7:15 pm CLINICAL HISTORY: Weakness, shortness of COMPARISON: Portable November 2019 TECHNIQUE: AP portable chest image was obtained 03/21/2020 7:15 pm . FINDINGS: Chronic interstitial pattern matches comparison. No mass or consolidations seen. Mild lori a or infiltrate could be masked by the chronic findings. Heart and vasculature are normal. No measura ble pleural effusion and no pneumothorax. No acute bony abnormality seen. No acute aortic findings valerio spected. IMPRESSION: No acute cardiopulmonary process. No significant change from comparison study.
--- NOTE | 2020-03-21 21:03 | EDPHYS ---
Physician Documentation [facility] Name: Isiah Gaytan Age: 84 yrs Sex: Male : 1935 Arrival Date: 03/21/2020 Time: 18:10 Bed 19 Private MD: ED Physician Dharmesh Jaffe HPI: 03/21 19:05 This 84 yrs old Male presents to ER via EMS with complaints of Fall and pm1 generalized weakness. 19:05 Details of fall: The patient fell from an upright position, while standing. Onset: The pm1 symptoms/episode began/occurred today. Associated injuries: The patient sustained injury to the head, abrasion. The patient has not recently seen a physician, the patient's primary care provider is Dr. Wilson. Patient was getting up from his wheelchair to sit down on his couch. When he stood up from his wheelchair he tripped on his own feet and fell face forward into the house. No headache, neck pain, or LOC. He has an abrasion to the top of his head and left hand. He presented to the ER because he said that he felt to weak to get up after falling on the couch. He was on his couch for thirty minutes prior to getting assistance from his former neighbor who picked him up and put him back on his chair. No prior chest pain, shortness of breath or dizziness prior to falling. - Immunization history:: Adult Immunizations up to date. - Social history:: Smoking status: Patient/guardian denies using tobacco, but has a distant history of tobacco abuse. ROS: 19:05 Constitutional: Negative for fever, chills, and weight loss, Neck: Negative for injury, pm1 pain, and swelling, Cardiovascular: Negative for chest pain, palpitations, and edema, Respiratory: Negative for shortness of breath, cough, wheezing, and pleuritic chest pain, Abdomen/GI: Negative for abdominal pain, nausea, vomiting, diarrhea, and constipation, Back: Negative for injury and pain, MS/Extremity: Negative for injury and deformity. 19:05 Skin: Positive for abrasion(s), of the top of head and left hand. 19:05 Neuro: Positive for generalized weakness, Negative for dizziness, headache, numbness, tingling. Exam: 19:05 Constitutional: This is a well developed, well nourished patient who is awake, alert, pm1 and in no acute distress. 19:05 Neck: Trachea midline, no thyromegaly or masses palpated, and no cervical lymphadenopathy. Supple, full range of motion without nuchal rigidity, or vertebral point tenderness. No Meningismus. Chest/axilla: Normal chest wall appearance and motion. Nontender with no deformity. No lesions are appreciated. 19:05 Back: No spinal tenderness. No costovertebral tenderness. Full range of motion. Skin: Warm, dry with normal turgor. Normal color with no rashes, no lesions, and no evidence of cellulitis. MS/ Extremity: Pulses equal, no cyanosis. Neurovascular intact. Full, normal range of motion. 19:05 Head/face: Noted is no obvious of injury or deformity except abrasion(s), that are mild, of the top of head. 19:05 Cardiovascular: Exam negative for acute changes, Rate: normal, Rhythm: regular, Pulses: no pulse deficits are appreciated. 19:05 Respiratory: Exam negative for acute changes, respiratory distress, shortness of breath. 19:05 Abdomen/GI: Inspection: abdomen appears normal, Palpation: abdomen is soft and non-tender, in all quadrants. 19:05 Neuro: Orientation: is normal, Mentation: is normal, Motor: is normal, moves all fours. Vital Signs: 18:16 BP 153 / 66; Pulse 66; Resp 16 S; Temp 98.8(O); Pulse Ox 98% on R/A; Weight 77.11 kg; jd3 Height 5 ft. 9 in. (175.26 cm) (R); Pain 0/10; 20:11 BP 131 / 70; Pulse 65; Resp 18; Pulse Ox 98% ; ea 21:19 BP 126 / 57; Pulse 65; Resp 18; Pulse Ox 100% on R/A; ea 21:48 BP 123 / 61; Pulse 70; Resp 17; Pulse Ox 98% on R/A; ea 22:40 BP 115 / 78; Pulse 61; Resp 18; Temp 98.5; Pulse Ox 98% on R/A; ea 18:16 Body Mass Index 25.10 (77.11 kg, 175.26 cm) jd3 MDM: 18:14 Patient medically screened. pm1 20:59 Data reviewed: vital signs. pm1 20:59 Data interpreted: Pulse oximetry: on room air is 98 %. Interpretation: normal. pm1 20:59 Counseling: I had a detailed discussion with the patient and/or guardian regarding: the pm1 historical points, exam findings, and any diagnostic results supporting the discharge/admit diagnosis, lab results, radiology results, the need for further work-up and treatment in the hospital. 21:00 Physician consultation: Bob TREJO was contacted at 21:00, regarding admission, pm1 patient's condition, and will see patient in ED, shortly. 03/21 18:27 Order name: Basic Metabolic Panel pm1 03/21 18:27 Order name: CBC with Diff pm1 03/21 18:27 Order name: LFT's; Complete Time: 20:40 pm03/21 18:27 Order name: Magnesium; Complete Time: 20:40 pm03/21 18:27 Order name: NT PRO-BNP; Complete Time: 20:40 pm03/21 18:27 Order name: PT-INR; Complete Time: 20:40 pm03/21 18:27 Order name: CT Head Brain wo Cont; Complete Time: 19:24 pm03/21 18:27 Order name: Troponin (emerg Dept Use Only); Complete Time: 20:40 pm03/21 18:27 Order name: XRAY Chest (1 view); Complete Time: 20:49 pm03/21 18:28 Order name: Basic Metabolic Panel; Complete Time: 20:40 EDMS 03/21 18:28 Order name: CBC with Automated Diff; Complete Time: 20:40 EDMS 03/21 22:09 Order name: SARS-COV-2 RT PCR; Complete Time: 22:21 ED03/21 18:27 Order name: EKG; Complete Time: 18:28 pm03/21 18:27 Order name: Cardiac monitoring; Complete Time: 19:24 pm03/21 18:27 Order name: EKG - Nurse/Tech; Complete Time: 19:24 pm03/21 18:27 Order name: IV Saline Lock; Complete Time: 19:21 pm03/21 18:27 Order name: Labs collected and sent; Complete Time: 19:21 pm03/21 18:27 Order name: O2 Per Protocol; Complete Time: 19:21 pm03/21 18:27 Order name: O2 Sat Monitoring; Complete Time: 19:21 pm1 Administered Medications: 21:45 Drug: Eliquis 5 mg Route: PO; ea 22:11 Follow up: Response: No adverse reaction ea 21:45 Drug: Lasix 40 mg Route: IVP; Site: right antecubital; ea 22:10 Follow up: Response: No adverse reaction ea Disposition: 03/22 07:07 Co-signature as Attending Physician, Dharmesh Jaffe MD. rn Disposition: 03/21/20 21:01 Hospitalization ordered by Donald Jaffe for Observation. Preliminary diagnosis are Fall on same level from slipping, tripping and stumbling, Elevated troponin, Abrasion of scalp, Abrasion of left hand. - Bed requested for Telemetry/MedSurg (observation). - Status is Observation. ea - Condition is Stable. - Problem is new. - Symptoms have improved. Signatures: Dispatcher [employer] EDNH Dharmesh Jaffe MD MD rn Bob Meza, AIRFIELD OPERATIONS SPECIALIST-C AIRFIELD OPERATIONS SPECIALIST-Cla1 Gertrudis Gillespie RN RN cg Junior Underwood, LAKIA MANAGER UTILIZATION pm1 Amarilis Perez RN RN ea Davies, Jonathon, RN RN jd3 Corrections: (The following items were deleted from the chart) 03/21 21:02 21:01 Hospitalization Ordered by Donald Jaffe MD for Observation. Preliminary pm1 diagnosis is Fall on same level from slipping, tripping and stumbling; Elevated troponin; Abrasion of scalp. Bed requested for Telemetry/MedSurg (observation). Status is Observation. Condition is Stable. Problem is new. Symptoms have improved. pm1 21:23 20:58 CORONAVIRUS+MR.LAB.BRZ ordered. [facility] EDNH 22:12 21:02 03/21/2020 21:01 Hospitalization Ordered by Donald Jaffe MD for Observation. cg Preliminary diagnosis is Fall on same level from slipping, tripping and stumbling; Elevated troponin; Abrasion of scalp; Abrasion of left hand. Bed requested for Telemetry/MedSurg (observation). Status is Observation. Condition is Stable. Problem is new. Symptoms have improved. pm1 22:41 22:12 03/21/2020 21:01 Hospitalization Ordered by Donald Jaffe MD for Observation. ea Preliminary diagnosis is Fall on same level from slipping, tripping and stumbling; Elevated troponin; Abrasion of scalp; Abrasion of left hand. Bed requested for Telemetry/MedSurg (observation). Status is Observation. Condition is Stable. Problem is new. Symptoms have improved. cg
--- NOTE | 2020-03-21 21:03 | ER ---
Nurse's Notes [facility] Name: Isiah Gaytan Age: 84 yrs Sex: Male : 1935 Arrival Date: 03/21/2020 Time: 18:10 Bed 19 Private MD: Diagnosis: Fall on same level from slipping, tripping and stumbling;Elevated troponin;Abrasion of scalp;Abrasion of left hand Presentation: 03/21 18:10 Chief complaint: EMS states: "pt reported feeling very weak and his legs gave out and jd3 fell face forwards onto the cushions of the couch. denies LOC or pain at this time. skin tear noted to this left hand.". Coronavirus screen: At this time, the client does not indicate any symptoms associated with coronavirus-19. Ebola Screen: Patient negative for fever greater than or equal to 101.5 degrees Fahrenheit, and additional compatible Ebola Virus Disease symptoms. Initial Sepsis Screen: Does the patient meet any 2 criteria? No. Patient's initial sepsis screen is negative. Does the patient have a suspected source of infection? No. Patient's initial sepsis screen is negative. Risk Assessment: Do you want to hurt yourself or someone else? Patient reports no desire to harm self or others. Onset of symptoms was March 21, 2020. 18:10 Method Of Arrival: EMS: [facility] jd3 18:10 Acuity: MARIOLA 3 jd3 - Immunization history:: Adult Immunizations up to date. - Social history:: Smoking status: Patient/guardian denies using tobacco, but has a distant history of tobacco abuse. Screenin:18 Abuse screen: Denies threats or abuse. Nutritional screening: No deficits noted. jd3 Tuberculosis screening: No symptoms or risk factors identified. Fall Risk Fall in past 12 months (25 points). Gait- Weak (10 pts.). Mental Status- Oriented to own ability (0 pts). Total Griffin Fall Scale indicates Low Risk Score (25-44 pts). Fall prevention measures have been instituted. Side Rails Up X 2 Placed close to Nursing Station Frequent Obs/Assesments occuring. Assessment: 18:19 General: Appears in no apparent distress. comfortable, Behavior is calm, cooperative, jd3 appropriate for age. Pain: Denies pain. Neuro: Level of Consciousness is awake, alert, obeys commands, Oriented to person, place, time, situation, Reports weakness generalized Denies numbness syncope. Cardiovascular: Denies chest pain, Capillary refill < 3 seconds Patient's skin is warm and dry. Respiratory: Airway is patent Respiratory effort is even, unlabored, Respiratory pattern is regular, symmetrical, Denies cough, shortness of breath. GI: No signs and/or symptoms were reported involving the gastrointestinal system. : No signs and/or symptoms were reported regarding the genitourinary system. EENT: No signs and/or symptoms were reported regarding the EENT system. Derm: Skin is intact, Skin is dry, Skin is normal, Skin temperature is warm wound to left foot wrapped with clean dressing per wound care. skin tear noted to dorsal side of left hand. Musculoskeletal: Circulation, motion, and sensation intact. Range of motion: intact in all extremities. 20:10 General: Appears in no apparent distress. Behavior is calm, cooperative, appropriate ea for age. Pain: Denies pain. Neuro: Level of Consciousness is awake, alert, obeys commands, Oriented to person, place, time, situation. Cardiovascular: Patient's skin is warm and dry. Respiratory: Airway is patent Respiratory effort is even, unlabored, Respiratory pattern is regular, symmetrical. Derm: Skin is fragile, Skin is dry, Skin is normal, Skin temperature is warm. 21:18 Reassessment: Patient and/or family updated on plan of care and expected duration. Pain ea level reassessed. Patient is alert, oriented x 3, equal unlabored respirations, skin warm/dry/pink. Hospitalist at bedside discussing plan of care. 21:45 Reassessment: Patient and/or family updated on plan of care and expected duration. Pain ea level reassessed. Patient is alert, oriented x 3, equal unlabored respirations, skin warm/dry/pink. Awaiting on room assignment. 22:10 Reassessment: Patient and/or family updated on plan of care and expected duration. Pain ea level reassessed. Patient is alert, oriented x 3, equal unlabored respirations, skin warm/dry/pink. 22:40 Reassessment: Patient and/or family updated on plan of care and expected duration. Pain ea level reassessed. Patient is alert, oriented x 3, equal unlabored respirations, skin warm/dry/pink. Pt admitted to second floor. Report given to receiving nurse on second floor, pt left ED via stretcher per tech. Pt tolerating well. Vital Signs: 18:16 BP 153 / 66; Pulse 66; Resp 16 S; Temp 98.8(O); Pulse Ox 98% on R/A; Weight 77.11 kg; jd3 Height 5 ft. 9 in. (175.26 cm) (R); Pain 0/10; 20:11 BP 131 / 70; Pulse 65; Resp 18; Pulse Ox 98% ; ea 21:19 BP 126 / 57; Pulse 65; Resp 18; Pulse Ox 100% on R/A; ea 21:48 BP 123 / 61; Pulse 70; Resp 17; Pulse Ox 98% on R/A; ea 22:40 BP 115 / 78; Pulse 61; Resp 18; Temp 98.5; Pulse Ox 98% on R/A; ea 18:16 Body Mass Index 25.10 (77.11 kg, 175.26 cm) jd3 ED Course: 18:10 Patient arrived in ED. jd3 18:13 Junior Underwood NP is PHCP. pm1 18:13 Dharmesh Jaffe MD is Attending Physician. pm1 18:16 Triage completed. jd3 18:17 Arm band placed on. jd3 18:18 Patient has correct armband on for positive identification. Bed in low position. Call j light in reach. Side rails up X2. Adult w/ patient. Pulse ox on. NIBP on. 19:01 CT Head Brain wo Cont In Process Unspecified. EDMS 19:14 XRAY Chest (1 view) In Process Unspecified. EDMS 19:19 Inserted saline lock: 20 gauge in right antecubital area, using aseptic technique. dh4 Blood collected. 19:45 Amarilis Perez, KATELYNN is Primary Nurse. ea 21:01 Donald Jaffe MD is Hospitalizing Provider. pm1 21:18 No provider procedures requiring assistance completed. Patient admitted, IV remains in ea place. Administered Medications: 21:45 Drug: Eliquis 5 mg Route: PO; ea 22:11 Follow up: Response: No adverse reaction ea 21:45 Drug: Lasix 40 mg Route: IVP; Site: right antecubital; ea 22:10 Follow up: Response: No adverse reaction ea Outcome: 21:01 Decision to Hospitalize by Provider. pm1 21:18 Instructed on the need for admit, Demonstrated understanding of instructions. ea 22:39 Admitted to Med/surg accompanied by tech, room 211, with chart, Report called to ea Receiving nurse on second floor 22:39 Condition: stable 22:41 Patient left the ED. ea Signatures: Dispatcher [employer] EDMS Junior Underwood, LAKIA REFUELING RAMP SUPERVISOR pm1 Amarilis Perez RN RN ea Davies, Jonathon, RN RN Reza Veliz 4
--- NOTE | 2020-03-21 21:47 | P.HP ---
Certification for Inpatient Patient admitted to: Observation With expected LOS: <2 Midnights Patient will require the following post-hospital care: None Practitioner: I am a practitioner with admitting privileges, knowledge of patient current condition, hospital course, and medical plan of care. Services: Services provided to patient in accordance with Admission requirements found in Title 42 Section 412.3 of the Code of Federal Regulations <Bob Meza - Last Filed: 03/21/20 21:42> Patient History Date of Service: 03/21/20 Primary Care Provider: Dr. Wilson Reason for admission: CHF exacerbation, fall History of Present Illness: 84-year-old male history of diastolic congestive heart failure, hypertension, GERD, atrial fibrillation on chronic anticoagulation therapy presents emergency department for fall, weakness. Patient reports that he is getting up out of his wheelchair and felt suddenly very weak falling onto the couch. Patient denies any associated chest pain, shortness of breath, dizziness, palpitations, headache, states she has felt very weak denies loss of consciousness. Patient was then unable to get up out of the couch. Patient called EMS for transportation to hospital for evaluation. Patient was evaluated in the emergency room, appears to be volume overloaded BNP 6692 troponin 0.07 pitting bilateral lower extremities to the level of the mayers. Patient with wound to right heel being treated by wound healing center, also a new skin tear to left hand. ED provider wishes to admit under observation for further evaluation and management. - Past Medical/Surgical History Diabetic: No -: Hypertention -: Squamous and basal cell Carcinoma -: CAD -: Osteoarthritis -: Chronic diastolic congestive heart failure -: Chronic atrial fibrillation on chronic anticoagulation therapy -: Knee surgery -: back surgery -: elbow surgery -: Cardiac stents x3 Psychosocial/ Personal History: Patient lives at home with his . - Family History Father -: Heart disease Mother -: Diabetes, Cancer Notes: Colon cancer - Social History Alcohol use: No CD- Drugs: No Caffeine use: No Place of Residence: Home <Bob Meza - Last Filed: 03/21/20 21:42> Date of Service: 03/22/20 <Donald Jaffe - Last Filed: 03/22/20 05:59> Allergies cephalexin [From Keflex] Allergy (Verified 03/21/20 23:04) Unknown codeine Allergy (Verified 03/21/20 23:04) Unknown piperacillin [From Zosyn] Allergy (Verified 03/21/20 23:04) Itching tazobactam [From Zosyn] Allergy (Verified 03/21/20 23:04) Itching Home Medications: Acetaminophen [Tylenol Extra Strength] 500 mg PO Q6HP PRN 03/21/20 Apixaban [Eliquis] 5 mg PO BID 03/21/20 Furosemide [Lasix*] 40 mg PO DAILY 03/21/20 Sotalol HCl [Betapace*] 40 mg PO DAILY AT SUPPER 03/21/20 Sotalol HCl [Betapace*] 80 mg PO DAILY WITH BREAKFAST 03/21/20 Tramadol HCl [Ultram] 50 mg PO Q6HP PRN 03/21/20 Review of Systems General: Weakness Respiratory: Shortness of Breath, SOB with Excertion Cardiovascular: Edema <Bob Meza - Last Filed: 03/21/20 21:42> Physical Examination - Physical Exam General: Alert, In no apparent distress, Oriented x3 HEENT: Atraumatic, Normocephalic, PERRLA, Mucous membr. moist/pink Neck: Supple Respiratory: Crackles/rales (Bilateral) Cardiovascular: Edema (2+ pitting edema to the level of the mayers), Irregular heart rate/rhythm (AFib rate controlled) Capillary refill: <2 Seconds Gastrointestinal: Normal bowel sounds, Soft and benign, No tenderness, No masses, No rebound, No guarding Musculoskeletal: No contractures, No erythema, No tenderness Integumentary: Pressure ulcer (Small pressure ulcer right heel), Other (Small skin tear left hand) Neurological: Normal speech, Normal tone, Sensation intact - Studies Laboratory Data (last 24 hrs) 03/21/20 18:52: PT 18.2 H, INR 1.56 03/21/20 18:52: WBC 5.9, Hgb 12.9 L, Hct 38.6 L, Plt Count 146 L 03/21/20 18:52: Sodium 138, Potassium 3.8, BUN 19 H, Creatinine 0.90, Glucose 132 H, Magnesium 2.1, Total Bilirubin 0.7, AST 20, ALT 21, Alkaline Phosphatase 82 <Bob Meza - Last Filed: 03/21/20 21:42> - Studies Laboratory Data (last 24 hrs) 03/21/20 18:52: PT 18.2 H, INR 1.56 03/21/20 18:52: WBC 5.9, Hgb 12.9 L, Hct 38.6 L, Plt Count 146 L 03/21/20 18:52: Sodium 138, Potassium 3.8, BUN 19 H, Creatinine 0.90, Glucose 132 H, Magnesium 2.1, Total Bilirubin 0.7, AST 20, ALT 21, Alkaline Phosphatase 82 <Donald Jaffe - Last Filed: 03/22/20 05:59> Assessment and Plan - Plan Assessment Acute on chronic diastolic congestive heart failure Atrial fibrillation on chronic anticoagulation therapy Fall versus near syncope, weakness GERD Plan Acute on chronic diastolic congestive heart failure: Patient with significant edema to lower extremities, continue with IV diuresis, Lasix. 1500 cc per day fluid restriction. Cardiology consult in place. Obtain and continue home medications as appropriate. Last echocardiogram November 2019 shows ejection fraction between 50 and 55% with diastolic dysfunction. Atrial fibrillation on chronic anticoagulation therapy: Obtain and continue home medication, Sanjay novak, unsure of sotalol dose, will need to verify. Fall versus near syncope, weakness: Patient reports he has been feeling very weak, was unable to get out of the couch after he fell, will have physical the rapy evaluate tomorrow morning. Patient denies loss of consciousness, palpitations, chest pain, shortness of breath. GERD: Obtain and continue home medications as appropriate. Discharge Plan: Home Plan to discharge in: 24 Hours - Advance Directives Does patient have a Living Will: Yes Does patient have a Durable POA for Healthcare: Yes - Code Status/Comfort Care Code Status Assessed: Yes (Full code) Critical Care: No Time Spent Managing Pts Care (In Minutes): 55 <Bob Meza - Last Filed: 03/21/20 21:42> - Plan Agree with plan of care as noted by Bob Meza. Acute on chronic CHF (HFpEF), will benefit from IV Diuresis Cardiology consulted. Afib rate controlled near syncope / weakness - PT/OT, Telemetry <Donald Jaffe - Last Filed: 03/22/20 05:59>
[2020-03-21] MEDS ORDERED: APIXABAN 5 MG TABLET ONE (21:57)
[2020-03-21] MEDS ORDERED: FUROSEMIDE 40 MG/4 ML VIAL ONE (21:57)
[2020-03-21] MEDS ORDERED: ONDANSETRON 4 MG/2 ML VIAL IV PRN (23:03)
[2020-03-21] MEDS ORDERED: ACETAMINOPHEN 500 MG TAB PO PRN (23:58)
[2020-03-22] MEDS: TRAMADOL HCL 50 MG TAB PO PRN ×2 (00:13→07:20)
[2020-03-22 02:52] VITALS: BMI 25.5
[2020-03-22 05:52] LABS: Basophils % 0.5 % (0-1.3); Hematocrit 34.3 % (39.6-49.0); MPV 8.5 fL (7.6-11.3); RBC Red Blood Cell Count 3.53 M/uL (4.33-5.43)
[2020-03-22] MEDS ORDERED: INFLUENZA VACCINE (for 3y+) 0.5 ML DOSE IMVAC ONE (06:00)
[2020-03-22] MEDS ORDERED: PNEUMOCOCCAL VACCINE 0.5 ML IMVAC ONE (06:00)
[2020-03-22 07:12] LABS: Magnesium 2.2 mg/dL (1.8-2.4); Potassium 3.3 mmol/L (3.5-5.1); Thyroid Stimulating Hormone 1.04 uIU/mL (0.360-3.740); Troponin I 0.1 ng/mL (0.0-0.045)
--- NOTE | 2020-03-22 07:31 | EKG ---
Test Date: 2020-03-21 Test Time: 18:48:01 Aerospace Medicine Physician: DEANNA MEASUREMENT RESULTS: Intervals: Rate: 64 MN: 280 QRSD: 68 QT: 418 QTc: 431 [place]: P: 44 MN: 280 QRS: 66 T: 162 INTERPRETIVE STATEMENTS: Sinus rhythm with 1st degree AV block Anterior infarct, age undetermined ST & T wave abnormality, consider lateral ischemia Abnormal ECG Compared to ECG 11/30/2019 23:11:01 Myocardial infarct finding now present Possible ischemia now present Sinus tachycardia no longer present Right-axis deviation no longer present ST (T wave) deviation still present Electronically Signed On 03-22-20 07:30:00 BUILDING MANAGER by Pollo Navarro
[2020-03-22] MEDS ORDERED: POTASSIUM 25 MEQ EFFERV TAB PO ONE (08:00)
[2020-03-22] MEDS: APIXABAN 5 MG TABLET PO SCH ×2 (08:27→20:07)
[2020-03-22] MEDS: FUROSEMIDE 40 MG/4 ML VIAL IV SCH ×2 (08:27→17:04)
--- NOTE | 2020-03-22 09:28 | CON ---
Date of Consultation: 03/22/[address] The patient admitted to Dr. Khanna and Dr. Wilson's service on 03/21/2020. I saw the patient on 03/22/2020. Reason For Consultation: Congestive heart failure and presyncope. History Of Present Illness: Mr. Gaytan is an 84-year-old white male. He is very well known to me from many office visits and hospital admissions in the past. He does have an extensive past medical history including congestive heart failure, coronary artery disease. He has had multiple admissions for his CHF within the last year. He also has had paroxysmal atrial fibrillation for which he takes Eliquis and sotalol. He came in with a presyncopal episode. Chest x- ray showing congestive heart failure, significant pedal edema. Has not had any PND or orthopnea. Denied any palpitation or syncope. Denied any fever or chills or cough. Has tested negative for his COVID. This morning, he had no specific complaint. Past Medical History: As stated above. Allergies: INCLUDE CEPHALEXIN, CODEINE, PIPERACILLIN. Medications: At home were listed earlier. Review of Systems: Negative. Social History: Negative. Family History: Negative. Physical Examination: Vital Signs: When I saw him, his blood pressures was 132/59. His pulse was 55 in sinus rhythm with a first-degree AV block. His respiratory rate was 20. His O2 saturation was 98%. HEENT: Negative. Neck: Supple without any bruit, lymphadenopathy, JVD, or thyromegaly. Chest: Clear. Cardiac: Revealed a regular rhythm and rate. No murmurs, gallops, or rubs. Abdomen: Benign. Extremities: Revealed 1+ edema to the knee. Diagnostic Data: Showed a troponin of 0.07. BNP was 6692. His chest x-ray was negative. His EKG was sinus rhythm with first-degree AV block. Head CT that was done was negative except for chronic ischemic changes. Echocardiogram that was done in November showed left ventricular ejection fraction to be normal, diastolic dysfunction, aortic sclerosis without any stenosis. Impression And Plan: 1. Presyncope, probably secondary to orthostatic hypotension. 2. Acute on chronic diastolic congestive heart failure. 3. Paroxysmal atrial fibrillation. 4. History of coronary artery disease, status post multiple stents in the past with negative recent cardiac workup including stress test in the office. He has had a carotid Doppler in my office that did show some disease that we will follow up on, but it was not critical. I certainly would not repeat any cardiac workup at this point. I think we need to diurese him. When he goes home, he should be on a higher dose of Lasix and continue his sotalol and Eliquis, but he should be at least on 40 b.i.d. on the Lasix. I will discuss that case further with Dr. Wilson. I certainly do not recommend any further cardiac workup. Hopefully, we can watch him 1 more day and send him home tomorrow. PEDRO/JAYLEEN Voice ID: [id number] Report ID: [id number] MTDD
[2020-03-22] MEDS ORDERED: POTASSIUM CL SA 10 MEQ TAB PO ONE (16:00)
[2020-03-22] MEDS: SOTALOL HCL 80 MG TAB PO SCH (17:04)
[2020-03-23 04:17] LABS: Absolute Lymphocytes (CBC) 1.2 K/uL (0.7-4.9); Hematocrit 37.3 % (39.6-49.0); Lymphocytes % 24.9 % (15.3-44.8); MPV 8.6 fL (7.6-11.3); RBC Red Blood Cell Count 3.83 M/uL (4.33-5.43)
[2020-03-23 04:46] LABS: Potassium 3.8 mmol/L (3.5-5.1)
[2020-03-23] MEDS: SOTALOL HCL 80 MG TAB PO SCH (05:31)
[2020-03-23] MEDS: APIXABAN 5 MG TABLET PO SCH (08:31)
[2020-03-23] MEDS: FUROSEMIDE 40 MG/4 ML VIAL IV SCH (08:31)
[2020-03-23] MEDS ORDERED: POTASSIUM CL SA 10 MEQ TAB PO ONE (09:00)
--- NOTE | 2020-03-23 09:30 | PN ---
The patient was admitted with presyncope, congestive heart failure. He has been diuresing with IV La six . Today, he has no pedal edema. No rales. His vital signs are stable. He is afebril e. He has no cardiac complaints. I am comfortable with him going home on his home medication, excep t I asked him to double up his Lasix at home for 3 days and then go back to normal dose and to take a n extra Lasix as needed when he gets short of breath or he has pedal edema or his weight goes up by 2 pounds. He was instructed on a low-salt diet as well over the next few weeks. PEDRO/JAYLEEN Voice ID: [id number] Report ID: [id number]
[2020-03-23 09:50] VITALS: O2SAT 95
--- NOTE | 2020-03-23 11:13 | PN ---
Date of Progress Note: 03/22/2020 The patient states he feels much better. He is still quite weak. No longer short of breath and does not feel like he did with the precipitating episode here, which appeared to be a near syncope, possi dyllan related to arrhythmia and exacerbation of his CHF. We will continue to monitor and if he stabiliz ed, could be discharged in the a.m. Physical therapy state he has much difficulty with walking and b alance and suggested home PT with Home Health. HR/MODL Voice ID: [id number] Report ID: [id number]
--- NOTE | 2020-03-23 12:22 | PN ---
Date of Progress Note: 03/23/2020 The patient states he feels back to baseline and seen by Cardiology, who suggested to increase in the diuresis via Lasix. The patient states he has responded quite well. Informed about positional mandel ge with hypotensive reactions and discharged to follow up as an outpatient by me and Dr. Navarro. HR/MODL Voice ID: [id number] Report ID: [id number]
[2020-03-23 14:12] VITALS: BP 136/64; TEMP 98.3
--- NOTE | 2020-05-16 20:56 | DS ---
Date of Discharge: 03/23/2020 Hospital Course: The patient admitted to hospital on 03/21. When he presented to the emergency room when he stated he almost passed out, he slipped and he was quite weak. Diagnosis of acute episode o f CHF was made. He was given some diuresis with good response and was admitted for further evaluatio n and treatment. Did sustain a scalp abrasion. He was placed on telemetry, which did reveal some pa roxysmal atrial tachycardia. The patient has a history of atrial fibrillation and is on anticoagulat ion for this. During his hospital stay, he was seen by Cardiology. After the Lasix doses, he felt m uch better. He still felt a little weak, but he was no longer week compared to when he came in. He felt much better. He was not short of breath. He was evaluated by Physical Therapy and suggested a home PT, which will be done once he is discharged. He was discharged in fair condition on 03/23 to f anastasialow up with me in 1 week and Cardiology, Dr. Navarro, in a couple of weeks with increase in his diu retic dose, otherwise basically the same medication. Final Diagnoses: Acute on chronic congestive heart failure, paroxysmal atrial tachycardia, presyncop e, coronary artery disease. HR/MODL Voice ID: [id number] Report ID: [id number]
== END 2020-03-23 14:27 | disposition home health service (06) ==
LOC: ER 17:53 → ERHOLD 21:44 → 2ND 22:34
PROVIDERS: ADMIT Hospitalist; ATTEND Family Medicine
DX: I11.0 Hypertensive heart disease with heart failure (principal); I50.33 Acute on chronic diastolic (congestive) heart failure; I48.0 Paroxysmal atrial fibrillation; S61.412A Laceration without foreign body of left hand, initial encounter; S00.01XA Abrasion of scalp, initial encounter; W01.0XXA Fall on same level from slipping, tripping and stumbling without subsequent striking against object, initial encounter; I95.1 Orthostatic hypotension; R53.1 Weakness; I25.10 Atherosclerotic heart disease of native coronary artery without angina pectoris; L89.619 Pressure ulcer of right heel, unspecified stage; I44.0 Atrioventricular block, first degree; K21.9 Gastro-esophageal reflux disease without esophagitis; R26.2 Difficulty in walking, not elsewhere classified; M19.90 Unspecified osteoarthritis, unspecified site; Z20.822 Contact with and (suspected) exposure to COVID-19; Z23 Encounter for immunization; Z79.01 Long term (current) use of anticoagulants; Z95.5 Presence of coronary angioplasty implant and graft; Z85.828 Personal history of other malignant neoplasm of skin; Z88.0 Allergy status to penicillin; Z88.1 Allergy status to other antibiotic agents; Z88.6 Allergy status to analgesic agent; Z83.3 Family history of diabetes mellitus; Z82.49 Family history of ischemic heart disease and other diseases of the circulatory system; Z80.0 Family history of malignant neoplasm of digestive organs
CPT/HCPCS: 93005; 87070; 85025 ×3; 80048 ×3; 36415 ×2; 83735 ×2; 87205; 84132; 85610; 80061; 80076; 84443; 87077; 87186; 84484 ×3; 84439; 83880; 70450; 71045; 90471 ×2; 90732; 97116 ×3; 97161; 97530 ×3; 96374; 99285; U0003; J1940 ×4; Q2035; J2250 ×2; G0378 ×3

== ENCOUNTER 2020-06-11 09:24 | Inpatient (IN) | payer OTHER ==
--- OUTSIDE RECORDS SUMMARY | 2020-06-11 09:28 | XMS REPORT | Continuity of Care Document ---
:1935 Author Organization [facility] t Address [address] [place]. [address] [place] [id number] Care Team Providers Name Role Phone Komal LOCKETT, N Primary Care Physician Dora LOCKETT Attending Clinician Flor Ag Attending Clinician Nithya Admitting Clinician Payers Payer Name Policy Type Policy Effective Date Expiration Date Sour ce Number AETNA MEDICAREAETNA [id number] 2013 MD Shahla ga MEDICARE 00:00:00 [id number] -PresentMedicare Problems Condition Condition Condition Status Onset Resolution Last Treating Co mments Source Name Details Category Date Date Treatment Clinician Date FEVER Diagnosis Active 2018-022019-01-27 Mem oria 1-14 22:24:00 l FEVER 00:00: Philip 00 Active 01/09/2019 [place] Unexplaine Unexplaine Disease Active 2018-02 Last M [...] 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 0 Assessmen A nderso impairment impairment 00:00: t & Plan: n , so , so 00 stated stated Lucila showed significa nt cognitive impairmen t across [...] of right request femur femur for surgery [id number] Encounter Encounter Disease Active Overview: MD monge [...] 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 [id number]/12 Carotid Duplex: <50% plaque within right ICA, normal left ICA, antegrade flow within bilateral vertebral arteriesO records from [place] [facility] t Cardiolog [facility] 05/09/17: LAD prox patent stent X [...] Active M D is is Anderso n History of Past Illness Condition Condition Condition Status Onset Resolution Last Treating Co mments Source Name Details Category Date Date Treatment Clinician Date Chills Problem 2018-022019-01-21 2019-01-21 M emoria (without 1-14 22:44:12 22:44:12 l fever) Chills 18:00: Philip (without 00 fever) 01/09/2019 01/21/2019 [place] Allergies, Adverse Reactions, Alerts Allergy Allergy Status Severity Reaction(s) Onset Inactive Treating Comm ents Source Name Type Date Date Clinician codeine codeine Active Memoria l Philip Keflex Keflex Active Memoria l Philip Family History Family Member Diagnosis Comments Start Date Stop Date Source Family member VTE MD Blackwell Family member Bleeding Disorder MD Sumeet grant Family member Coronary artery And erson disease Family member Stroke MD Blackwell Maternal grandmother Diabetes MD Sumeet grant Natural mother -Colon cancer MD Arya mitchell Natural mother Hypertension Willis son Social History Social Habit Start Date Stop [...] Smoking Status Start Date Stop Date Source Social History 2019-01-10 07:34:37 2019-01-10 07:34:37 [facility] Medications Ordered Filled Start Stop Current Ordering Indication Dosage Frequency Signature Comments Components Source Medication Medication Date Date Medication? Clinician (SIG) Name Name [facility] 2018-02 No Notes: Memoria Mineral Oil 1-24 (Same l Enema 19:58: as:[facility] Mineral Oil Enema) bisacodyl 2018-02 Yes 10 mg = 1 Mem oria 10 mg 1-24 supp, [place], l rectal 15:04: Daily, PRN Lilly nn suppository 00 Constipati on, # 10 supp, 0 Refill(s), Pharmacy: [facility] #[id number] Docusate 2018-02 Yes 100 mg = 1 Mem oria Sodium 100 1-24 cap, PO, l MG Oral 15:04: BID, # 60 Lilly nn Capsule 00 cap, 0 [Colace] Refill(s), Pharmacy: [facility] #[id number] bisacodyl 5 2018-02 Yes 10 mg = 2 M emoria mg oral 1-24 tab, PO, l enteric 15:04: Daily, PRN Herm ayush coated 00 Constipati tablet on, X 10 day, # 20 tab, 0 Refill(s), Pharmacy: [facility] #[id number] POLYETHYLEN 2018-02 Yes 17 gm, PO, Memoria E GLYCOL 1-24 Daily, PRN l 3350 142 15:04: Constipati Her pinon MG/ML Oral 00 on, # 255 Solution gm, 0 [Miralax] Refill(s), Pharmacy: [id number] naproxen 2018-02 Yes 500 mg = 1 Mem oria 500 mg oral 1-24 tab, PO, l tablet 15:04: BID, X 7 [place] 00 day, # 14 tab, 0 Refill(s), Pharmacy: [id number] Lactulose 2018-02 No Notes: Memori a 667 MG/ML -24 (Same l Oral 01:11: as:Chronul Philip Solution 00 ac) Lactulose 2018-02 No Notes: Memori a 667 MG/ML -23 (Same l Oral 14:13: as:Chronul [place] Solution 00 ac) Dulcolax 2018-02 No Notes: [...] pantoprazol 2018-02 No Notes: Pepe micki e -21 Tablet l 19:15: should not [place] 00 be chewed or crushed. (Same as: Protonix) Phenergan 2018-02 No Notes: Memori a 1-20 (Same as: l 00:41: Phenergan) [place] 00 Phenergan 2018-02 No 25 mg, Memori a 1-20 Route: IM, l 00:40: Q6H, Philip 00 Dosing Weight 74.2, kg, PRN Nausea & Vomiting, Start date: 01/14/19 18:40:00 WATER TREATMENT OPERATOR, Duration: 30 day, Stop date: 02/13/19 18:39:00 WATER TREATMENT OPERATOR Dulcolax 2018-02 No Notes: Memoria Laxative - (Same As: l 16:12: Dulcolax, [place] 00 Bisco-Lax) Levaquin 2018-02 No Notes: Do Pepe micki -19 not give l 12:00: w/antacids [place] , dairy pdt & minerals Take 1 hr before or 2 hr after dairy products metoprolol 2018-02 No Notes: Memor ia extended 18 (Same as: l release 20:49: Toprol XL) Herm ayush 00 May split tab, but do not crush. Albuterol 2018-02 No Notes: Memori a 0.833 MG/ML -18 (Same as: l / 20:49: Duoneb) Philip Ipratropium 00 Mason 0.167 MG/ML Inhalant Solution Docusate 2018-02 No 100 mg = 1 Mem oria Sodium 100 1-18 cap, PO, l MG Oral 16:51: BID, 0 [place] Capsule 00 Refill(s) Famotidine 2018-02 Yes 20 mg = 1 Me moria 20 MG Oral 1-18 tab, PO, l Tablet 16:51: BID, 0 [place] 00 Refill(s) naproxen 2018-02 No 500 mg [...] (Same as: l Tablet 23:00: Pepcid) Philip 00 Levofloxaci 2018-02 No Notes: Pepe micki n 1-16 (Same l 07:00: as:Levaqui Philip 00 n) Docusate 2018-02 No Notes: Memoria Sodium 100 1-15 (Same as: l MG Oral 23:00: Colace) Philip Capsule 00 (Do Not Crush) Acetaminoph 2018-02 No Notes: Do M emoria en 325 MG / 1-15 not exceed l Hydrocodone 19:50: 4gm/day of Philip Bitartrate 00 acetaminop 10 MG Oral hen. Tablet (Same as: [Rincon Rincon 10/325] 325/10) clopidogrel 2018-02 No Notes: Pepe micki 1-15 (Same As: l 15:02: Plavix) Flomax 2018-02 No Notes: Memoria 1-15 (Same As: l 15:02: Flomax) "Do Not Crush" Morphine 2018-02 No 2 mg, 1 Memori a 1-15 mL, Route: l 11:04: IVP, Drug form: SOLN, Q4H, Dosing Weight 74.2, kg, PRN Pain Score 7-10, Start date: 01/10/19 5:04:00 WATER TREATMENT OPERATOR, Duration: 30 day, Stop date: 02/09/19 5:03:00 WATER TREATMENT OPERATOR, 0 Streptococc 2018-02 No Notes: Pepe micki us 1-15 Shake well l pneumoniae 09:35: prior to Her pinon serotype 1 51 use (Same capsular as: antigen Prevnar diphtheria 13) [id number] protein conjugate vaccine / Streptococc us pneumoniae serotype 14 capsular antigen diphtheria ZVM325 protein conjugate vaccine / Streptococc us pneumoniae serotype 18C capsular antigen d metoprolol 2018-02 Yes 50 mg = 1 Me moria 50 mg oral 1-15 tab, PO, l tablet, 09:19: Daily, # Clifford n extended 00 30 tab, 0 release Refill(s) clopidogrel 2018-02 Yes 75 mg = 1 M emoria 75 mg oral 1-15 tab, PO, l tablet 09:19: Daily, # [place] 00 30 tab, 0 Refill(s) atorvastati 2018-02 [...] 1-15 (Same as: l / 09:00: Duoneb) Ipratropium 00 Mason 0.167 MG/ML Inhalant Solution Ondansetron 2018-02 No Notes: Pepe micki 1-15 (Same as: l 08:36: Zofran) MEDICATION WASTE Product Size: 4 mg Product Wasted: ___ mg Albuterol 2018-02 No Notes: SEE Me moria 0.83 MG/ML 03-12 RT l Inhalant 08:36: DOCUMENTAT Her pinon Solution 00 ION (Same as: Proventil) NS 1,000 mL 2018-02 No 1,000 mL, M emoria 03-12 Rate: 60 l 08:33: ml/hr, [place] 00 Infuse over: 16.7 hr, Route: IV, Dosing Weight 74.2 kg, Total Volume: 1,000, Start date: 01/10/19 2:33:00 WATER TREATMENT OPERATOR, Duration: 1 doses or times, Stop date: 01/10/19 19:14:00 WATER TREATMENT OPERATOR, 1.91, m2, 0 Morphine 2018-02 No Notes: Memoria -15 (Same l 07:20: as:MORPhin [place] 00 e Sulfate) Zofran 2018-02 No Notes: Memoria -15 (Same as: l 07:20: Zofran) Philip 00 MEDICATION WASTE Product Size: 4 mg Product Wasted: ___ mg Levaquin 2018-02 No Notes: Memoria -15 (Same l 07:17: as:Levaqui Philip 00 n) Zofran 2018-02 No Notes: Memoria -15 (Same as: l 04:21: Zofran) [place] 00 MEDICATION WASTE Product Size: 4 mg Product Wasted: ___ mg Saline 2018-02 No Notes: Memoria Flush 0.9% 15 (Same as: l 04:20: BD Philip 00 Posiflush) Sodium 2018-02 No 1,000 mL, Memori a Chloride 15 2,000 l 0.9% 04:20: ml/hr, [place] (Bolus) IV 00 Infuse Over: 0.5 hr, Route: IV, 1,000, Drug form: INJ, ONCE, Priority: STAT, Dosing Weight 74.2 kg, Start date: 01/09/19 22:20:00 WATER TREATMENT OPERATOR, Stop date: 01/09/19 22:20:00 WATER TREATMENT OPERATOR, 0 metoprolol 2018-02 Yes 50mg Take 50 mg M D tartrate 03-10 by mouth Anderso (LOPRESSOR) 17:53: twice n [...] daily. n 1.1 % 00 of scalp [place] dental teeth with cream cream and spit [...] Temperature Oral (F) 2019-01-19 21:26:00 97.6 F [facility] Heart Rate 2019-01-19 21:26:00 [facility] Respitory Rate 2019-01-19 21:26:00 Memori al [place] Systolic (mm Hg) 2019-01-19 21:26:00 Pepe rial Philip Diastolic (mm Hg) 2019-01-19 21:26:00 Mem orial [place] Temperature Oral (F) 2019-01-19 17:23:00 97.9 F [facility] Heart Rate 2019-01-19 17:23:00 [facility] [place] Respitory Rate 2019-01-19 17:23:00 Memori al [place] Systolic (mm Hg) 2019-01-19 17:23:00 Pepe rial [place] Diastolic (mm Hg) 2019-01-19 17:23:00 Mem orial [place] Temperature Oral (F) 2019-01-19 13:47:00 97.6 F [facility] [place] Heart Rate 2019-01-19 13:47:00 [facility] [place] Respitory Rate 2019-01-19 13:47:00 Memori al [place] Systolic (mm Hg) 2019-01-19 13:47:00 Pepe rial [place] Diastolic (mm Hg) 2019-01-19 13:47:00 Mem orial [place] Height 2019-01-10 12:17:00 170.18 cm [facility] Philip Weight 2019-01-10 03:42:00 [facility] Procedures This patient has no known procedures. Encounters Start End Encounter Admission Attending Care Care Encounter Source Date/Time Date/Time Type Type Clinicians Facility Department ID 2019-01-09 2019-01-19 Outpatient EDGAR Ag [facility] [id number] 21:18:46 18:08:00 Barbara 00 Flor 2019-01-10 2019-01-10 Inpatient E FB MED [id number] FB 15:16:00 01:33:00 Results Test Description Test Time Test Comments Results Result Comments Source URINE AND STOOL 2019-01-16 Clear [facility] 00:22:00 (01/15/19 6:22 [place] PM) URINE AND STOOL 2019-01-16 00:22:00 Test Item Value Reference Range Interpretation Comme nts UA Spec Grav (test code = UA Spec Grav) 1.023 1 [facility] [id number] 00:22:00 Test Item Value Reference Range Interpretation Comments UA pH (test code = UA pH) 5.0 1 5.0-8.0 [facility] [id number] 00:22:00Negative (01/15/19 6:22 PM) [facility] [id number] 00:22:00Negative *NA*(01/15/19 6:22 PM)[facility] [id number] 00:22:00Negative *NA*(01/15/19 6:22 PM)[facility] [id number] 00:22:00Negative (01/15/19 6:22 PM)[facility] UFOGV8874-72-87 00:22:00Negative (01/15/19 6:22 PM) [facility] [id number] 00:22:00Negative (01/15/19 6:22 PM) [facility] EIEVQ4481-63-57 00:22:00None Seen (01/15/19 6:22 PM) [facility] HGMXP5518-03-02 00:22:001[facility] PNOOO6455-75-48 00:22:001[facility] IAFMI5962-03-74 00:22:00 Yellow *NA*(01/15/19 6:22 PM)[facility] IfxrfelZIRSJCIZRU3432-32-01 10:48:000.2 [facility] UultdayJXEKFFECCE0295-05-61 10:48:000.3[facility] HermannCHEM PANEL 2019-01-14 10:48:002.3[facility]annCHE[facility] GDGFZ3121-22-49 10:48:003.0[facility] KqzuiliQJPEOHRRYCQZ9121-07-41 10:48:0010.3[facility] UtonudjNRTMCNAEOVIC5604-50-20 10:48:20839[place] JaolvltJVHLEOEBFUMP5163-64-77 10:48:0015[facility] Philip CSFGPLRSKFTE1907-54-94 10:48:000.69[facility] GkkmynsNTKNGRHXBZBJ6444-14-38 10:48:46115Ineznjmr QmsigdpWGRSTBVARJKU6806-30-39 10:48:004.3[facility] [place] LMIVXTNCKCCK7282-37-96 10:48:38632Jbjdgrrp FmmpwonPNOJGIUXNQOV4171-63-97 10:48:0026[facility] FhhzwpoJGUUPFVUQONJ1077-92-85 10:48:008.9[facility] Philip DLUVKUCODLHS7507-98-64 10:48:0087[facility] TjykqumDYXTHOVHSJ2718-32-93 10:48:00 2.6[facility] FlsjtsrIYBQDBURML1018-75-13 10:48:003.79[facility]annHEMATOLOGY 2019-01-14 10:48:0011.1[facility] MnfsjyaUBWUYAIFFQ0998-34-25 10:48:0034.9[facility] AzzsgtiOGGGDXVYGA9455-56-46 10:48:0092.0[facility] GjovdqoSSYHIUGJLB4913-78-28 10:48:00 Test Item Value Reference Range Interpretation Comments MCH (test code = MCH) 29.3 pg 27.0-31.0 Memorial VqukdfiFJCOFLLRAM2381-64-07 10:48:0031.8[facility]annHEMATOLOGY 2019-01-14 10:48:0016.5[facility] UpbxrygCQJSMOWLYP5554-32-19 10:48:72581Mbxqvcgu HyfsqlrRKLXPOPINI0941-41-32 10:48:008.3[facility] KsfznuoQFGZPHMFKF8725-48-55 10:48:0066.8[facility] HgrrddwQYHWLDNVEE7765-18-42 10:48:0012.6[facility] [place] IIWCVPYWVA6848-17-03 10:48:008.4[facility] TwbzjstEQBBXMSZCD4300-19-89 10:48:00 11.5[facility] UqscnknSUQVNKNRUA0355-01-45 10:48:000.7[facility]annHEMATOLOGY 2019-01-14 10:48:001.7[facility] RpwqdlaKANKKJQVOU8131-97-77 10:48:000.3[facility]annCHEM RYTVV2635-81-62 10:15:002.0[facility]annCHEM MBEQV0201-70-26 10:15:003.6[facility]annCHEM VHMHG5795-63-54 10:15:65944Khjvihtj HermannCHEM IGTQL0559-62-34 10:15:009[facility]annCHEM CXMWA2519-29-62 10:15:000.71 [facility] IXCZF9504-45-02 10:15:70280Zgecauzt HermannCHEM PANEL 2019-01-13 10:15:004.2[facility]annCHEM FFKGV7548-42-18 10:15:25103Btgvskfd HermannCHEM WTMRZ0349-18-67 10:15:0027[facility]annCHEM HOYRX3097-66-97 10:15:0010.2[facility]annCHEM ZBOTK6717-37-15 10:15:008.9[facility]annCHEM LPRPR5214-92-90 10:15:0086[facility] NupnpvvWZEPUGHRFE9768-51-81 10:15:0063.6 [facility] GpklqfsLYLNAVNDUD3224-54-23 10:15:0019.5[facility]annHEMATOLOGY 2019-01-13 10:15:0011.0[facility] XgwnmgnKQDGZQHZFO1371-84-46 10:15:005.2[facility] YvagldnAUBXIRJIAZ8198-26-35 10:15:000.7[facility] GnclulgMENINGQXOD8495-09-14 10:15:001.4[facility] IvzlnwrCOPUDPKZJT6787-62-93 10:15:000.4[facility] [place] YIRCDPNYOR8314-19-36 10:15:000.2[facility] MchgrsrFXCEUISFKR4586-17-50 10:15:000.1 [facility] ZbywlmcXKDUSBUSPH8497-32-54 10:15:002.2[facility]annHEMATOLOGY 2019-01-13 10:15:003.60[facility] PddzzdlWZPMXJYVAY7806-55-97 10:15:0010.8[facility] LiwwgvvKLYOZVVVSG4247-76-74 10:15:0033.4[facility] GllftlkVRVJOUEISL9452-77-45 10:15:0092.9[facility] JegoashPOVRKJVPGQ7045-80-49 10:15:00 Test Item Value Reference Range Interpretation Comments MCH (test code = MCH) 30.1 pg 27.0-31.0 [facility] MffzfpjVDRRLEQXEU4172-94-16 10:15:0032.4[facility]annHEMATOLOGY 2019-01-13 10:15:0017.0[facility] LkcejdeZBIXGTCCZH8646-76-36 10:15:32768Ckfdxsdh BcgiujiDYUMAFNMUU0765-49-50 10:15:008.0[facility] PfsvpgyOOFYCAPZOY0997-57-42 10:43:003.68[facility] PnnsqvaUYHPEADSXJ2666-92-81 10:43:0011.0[facility] [place] UULMGETFQO9724-40-65 10:43:0033.9[facility] HlgylzuEOCPGFQEIH1154-43-04 10:43:00 92.1[facility] EetwtqlHGVLHYQYZX3104-58-97 10:43:00 Test Item Value Reference Range Interpretation Comments MCH (test code = MCH) 30.0 pg 27.0-31.0 [facility] EsnugnzVGKKEDUJFR7320-02-31 10:43:0032.6[facility]annHEMATOLOGY 2019-01-12 10:43:0016.7[facility] AmmdyczRSNMOQUVRP3230-95-54 10:43:05406Nnpxjtit PmmflnwZQJEUDPLGZ3700-35-49 10:43:008.2[facility] RgyddtlUFGMQBWJEG4288-42-14 10:43:0076.8[facility] WoiwehtUYBXKJJNJO1484-19-72 10:43:009.9[facility] [place] BDEFNCCOJD4962-28-16 10:43:0011.8[facility] MufoxciQKESTSFZUI4013-25-29 10:43:00 1.2[facility] LykjvffECBRIBUJAH5361-84-05 10:43:000.3[facility] HermannHEMATOLOGY 2019-01-12 10:43:002.8[facility] WsbdsnpSUDVYEFKQY2905-35-96 10:43:000.4[facility] JklzctjXHCBORKYFK5762-15-20 10:43:000.4[facility] HermannCHEM WCZYA6671-05-13 10:43:47065Gbucwlfr HermannCHEM IKMEV1643-33-24 10:43:007[facility] HermannCHEM DJKPX9672-09-30 10:43:000.69[facility] HermannCHEM ICUKC0781-24-35 10:43:25163 [facility]annCHEM IIXMV6364-37-93 10:43:004.3[facility] HermannCHEM PANEL 2019-01-12 10:43:94956Kbxryxaa HermannCHEM XVPKN3315-95-25 10:43:0026[facility] HermannCHEM OWKRX1229-77-03 10:43:008.5[facility] HermannCHEM OZYFM1214-68-78 10:43:0087[facility] HermannCHEM AAPBF3254-58-56 10:43:0011.3[facility] HermannCHEM CKVJD9476-46-91 10:43:001.9[facility] HermannCHEM QLYEI3831-74-49 10:43:002.8 [facility] EikwdwoJPMJKOEQWB0634-39-07 10:43:003.7[facility] HermannBACTERIAL - NOIEXRJV2137-92-27 09:33:00Urine *NA*(01/10/19 3:33 AM)[facility]annBACTERIAL - BBJQVCZB8916-80-77 09:33:00Negative (01/10/19 3:33 AM)[facility] XOJYE6524-34-90 09:33:00Yellow *NA*(01/10/19 3:33 AM)[facility] JOHLP5618-26-08 09:33:00Clear (01/10/19 3:33 AM)[facility] KGMES0263-02-82 09:33:00 Test Item Value Reference Range Interpretation Comments UA Spec Grav (test code = UA Spec 1.014 1 Grav) [facility] TUPQU6000-35-89 09:33:00 Test Item Value Reference Range Interpretation Comments UA pH (test code = UA pH) 5.0 1 5.0-8.0 [facility] BCRVB4028-25-78 09:33:00Negative (01/10/19 3:33 AM) [facility] SJOJN4799-23-36 09:33:00Negative *NA*(01/10/19 3:33 AM)[facility] MXUIP1226-24-10 09:33:00Trace *ABN*(01/10/19 3:33 AM)[facility] IYVSG6828-06-37 09:33:00Negative *NA*(01/10/19 3:33 AM)[facility] OZFQE1351-69-01 09:33:00Negative (01/10/19 3:33 AM)[facility] QTGJP1502-53-80 09:33:00Negative (01/10/19 3:33 AM) [facility] VMSRU8939-54-87 09:33:00Negative (01/10/19 3:33 AM) [facility] KDQYK8688-82-20 09:33:00None Seen (01/10/19 3:33 AM) [facility] PNIRU5309-21-25 09:33:00<1[facility] UPDMQ0458-57-16 09:33:00<1[facility] HermannVIRAL - PYNIEDZL3164-19-12 07:15:00Negative (01/10/19 1:15 AM)[facility] HermannVIRAL - MEGDDQLD2077-30-71 07:15:00Negative (01/10/19 1:15 AM)[facility] HermannCARDIAC TXYYYCL2894-64-85 05:21:000.09[facility] HermannCHEM YSHPF6594-19-43 05:21:007.1[facility] HermannCHEM RUDFW1988-23-37 05:21:003.1[facility] HermannCHEM BHOCA2558-18-99 05:21:0027 [facility]annCHEM GEDOP2003-65-80 05:21:0027[facility] HermannCHEM PANEL 2019-01-10 05:21:17404Fspcdked HermannCHEM PEDBM7922-55-82 05:21:000.5[facility] HermannCHEM YKFBU1763-35-34 05:21:00 Test Item Value Reference Range Interpretation Comments B/C Ratio (test code = B/C Ratio) 17 1 6-25 [facility]annCHE[facility] HDXLM1163-98-35 05:21:004.0[facility]annCHEM PANEL 2019-01-10 05:21:00 Test Item Value Reference Range Interpretation Comments A/G Ratio (test code = A/G Ratio) 0.8 1 0.7-1.6 [facility] BGDEX8121-98-39 05:21:000.9[facility] 05:21:00 Test Item Value Reference Range Interpretation Comments INR (test code = INR) 1.08 1 0.85-1.17 [facility]ixIAMPRXXEVK4675-47-82 05:21:00 Test Item Value Reference Range Interpretation Comments PT (test code = PT) 13.8 s 12.0-14.7 [facility]andUczzhzaGTKDZRHPSF6867-30-52 05:21:00 Test Item Value Reference Range Interpretation Comments PTT (test code = PTT) 23.3 s 22.9-35.8 [facility]ellandZjygyrvVPEGWRLXXO4810-14-30 05:21:000.2[facility]
[2020-06-11 10:36] LABS: Absolute Lymphocytes (CBC) 0.9 K/uL (0.7-4.9); Basophils % 1.2 % (0-1.3); MPV 8.6 fL (7.6-11.3); RBC Red Blood Cell Count 3.73 M/uL (4.33-5.43)
[2020-06-11 10:44] LABS: Protime INR 1.82
--- NOTE | 2020-06-11 10:44 | RAD REPORT ---
EXAM DESCRIPTION: RAD - Chest Single View - 06/11/2020 10:38 am CLINICAL HISTORY: SOB Chest pain. COMPARISON: Chest Single View dated 03/21/2020; Chest Single View dated 11/30/2019; Chest Single View dated 06/23/2019; Chest Single View dated 06/22/2019 FINDINGS: Portable technique limits examination quality. The lungs are diffusely emphysematous with a small left pleural effusion noted. The heart is upper li rebeca of normal in size. No displaced fractures.Right axillary dissection clips. IMPRESSION: Moderate emphysematous changes.
[2020-06-11 11:08] LABS: Potassium 3.5 mmol/L (3.5-5.1)
[2020-06-11 11:09] LABS: Albumin 3.5 g/dL (3.4-5.0); Bilirubin Direct 0.2 mg/dL (0-0.2); Bilirubin Total 0.6 mg/dL (0.2-1.0); Magnesium 2.5 mg/dL (1.8-2.4); Protein, Total 7.1 g/dL (6.4-8.2); Troponin (Emerg Dept Use Only) 0.12 ng/mL (0.0-0.045)
[2020-06-11 11:20] LABS: SARS-COV-2 RT PCR NEGATIVE (NEGATIVE)
--- NOTE | 2020-06-11 11:52 | ER ---
Nurse's Notes [facility] Name: Isiah Gaytan Age: 84 yrs Sex: Male : 1935 Arrival Date: 06/11/2020 Time: 09:26 Bed 14 Private MD: Ronn Wilson Diagnosis: Unspecified combined systolic (congestive) and diastolic (congestive) heart failure Presentation: 06/11 09:41 Chief complaint: Patient states: SOB x 2 weeks. Hx of heart failure. Denies sick bw contacts. Has not had Covid vaccine. Coronavirus screen: At this time, unable to obtain information related to travel outside the [place] Client presents with at least one sign or symptom that may indicate coronavirus-19. Standard/surgical mask placed on the client. Ebola Screen: No symptoms or risks identified at this time. Initial Sepsis Screen: Does the patient meet any 2 criteria? No. Patient's initial sepsis screen is negative. Does the patient have a suspected source of infection? No. Patient's initial sepsis screen is negative. Risk Assessment: Do you want to hurt yourself or someone else? Patient reports no desire to harm self or others. Onset of symptoms was May 28, 2020. 09:41 Method Of Arrival: Wheelchair 09:41 Acuity: MARIOLA 2 bw Triage Assessment: 09:49 General: Appears in no apparent distress. uncomfortable, Behavior is calm, cooperative, bw appropriate for age. Pain: Complains of pain in throat pain. Neuro: No deficits noted. Cardiovascular: Reports diaphoresis, Denies chest pain. Respiratory: Reports shortness of breath pain with movement Onset: The symptoms/episode began/occurred 2 weeks ago, GI: No deficits noted. : No deficits noted. No signs and/or symptoms were reported regarding the genitourinary system. Derm: No deficits noted. No signs and/or symptoms reported regarding the dermatologic system. Historical: - Allergies: 09:49 Azithromycin; bw 09:49 Codeine; bw 09:49 Keflex; bw - Home Meds: 09:49 aspirin 81 mg Oral chew 1 tab once daily [Active]; atorvastatin Oral [Active]; Eliquis bw Oral [Active]; sotalol Oral [Active]; Tramadol Oral [Active]; - PMHx: 09:49 High Cholesterol; Hypertension; Myocardial infarction; CHF; bw - Immunization history:: Adult Immunizations up to date, Client reports having NOT received the Covid vaccine. - Social history:: Smoking status: unknown. Screenin:51 Abuse screen: Denies threats or abuse. Nutritional screening: No deficits noted. bw Tuberculosis screening: No symptoms or risk factors identified. Fall Risk Fall in past 12 months (25 points). Secondary diagnosis (15 points) IV access (20 points). Ambulatory Aid- Crutches/Cane/Walker (15 pts). Gait- Weak (10 pts.). Mental Status- Overestimates/Forgets Limitations (15 pts.). Total Griffin Fall Scale indicates High Risk Score (45 or more points). Fall prevention measures have been instituted. Side Rails Up X 2 Placed Close to Nursing Station Family Present and informed to notify staff if the need to leave the bedside. Assessment: 09:51 Reassessment: see triage assessment. Cardiovascular: Rhythm is sinus gudelia along with bw runs of bigeminy. Respiratory: Airway is patent Respiratory effort is even, unlabored, Breath sounds are clear bilaterally. in left lower lobe and right lower lobe Breath sounds with crackles. GI: No deficits noted. : No deficits noted. EENT: No deficits noted. 11:00 Reassessment: Patient appears in no apparent distress at this time. Patient and/or bw family updated on plan of care and expected duration. Pain level reassessed. Patient is alert, oriented x 3, equal unlabored respirations, skin warm/dry/pink. 12:45 Reassessment: Patient appears in no apparent distress at this time. Patient and/or bw family updated on plan of care and expected duration. Pain level reassessed. Patient is alert, oriented x 3, equal unlabored respirations, skin warm/dry/pink. 13:57 Reassessment: Patient appears in no apparent distress at this time. Patient and/or bw family updated on plan of care and expected duration. Pain level reassessed. Patient is alert, oriented x 3, equal unlabored respirations, skin warm/dry/pink. 15:17 Reassessment: Patient appears in no apparent distress at this time. Patient and/or iw family updated on plan of care and expected duration. Pain level reassessed. Patient is alert, oriented x 3, equal unlabored respirations, skin warm/dry/pink. 18:29 Reassessment: Patient appears in no apparent distress at this time. Patient is alert, ca1 oriented x 3, equal unlabored respirations, skin warm/dry/pink. Vital Signs: 09:41 BP 155 / 83; Pulse 64; Resp 21; Temp 98.3; Pulse Ox 95% on R/A; bw 11:00 BP 131 / 64; Pulse 47; Resp 12; Pulse Ox 97% on R/A; bw 12:45 BP 142 / 68; Pulse 49; Resp 22; Pulse Ox 97% on R/A; bw 13:57 BP 123 / 56; Pulse 50; Resp 18; Pulse Ox 98% on R/A; bw 15:17 BP 124 / 62; Pulse 62; Resp 15; Pulse Ox 97% on R/A; iw ED Course: 09:26 Patient arrived in ED. am2 09:26 Ronn Wilson MD is Private Physician. am2 09:30 Cynthia Sheriff, KATELYNN is Primary Nurse. bw 09:30 Kevin Morataya [facility]. cp 09:30 Conrad Veras MD is Attending Physician. cp 09:45 Triage completed. bw 09:49 Arm band placed on right wrist. bw 09:51 Patient has correct armband on for positive identification. pump stitcher on. Pulse bw ox on. NIBP on. 09:51 No provider procedures requiring assistance completed. bw 09:55 Influenza Screen (a \\T\\ B) Sent. bw 09:55 COVID-19 : Document "Date of Symptom Onset" if Symptomatic. Sent. bw 10:11 COVID swab sent to lab. Flu and/or RSV swab sent to lab. mh5 10:40 Inserted saline lock: 20 gauge in right antecubital area, using aseptic technique. iw 10:59 CBC with Diff Sent. bw 10:59 PT-INR Sent. bw 10:59 XRAY Chest (1 view) Sent. bw 10:59 Influenza Screen (A Sent. bw 10:59 CORONAVIRUS Sent. bw 11:01 EKG done, by fire technology instructor. reviewed by Kevin MAGALLANES. at1 11:51 Ronn Wilson MD is Hospitalizing Provider. cp 12:46 Patient admitted, IV remains in place. bw 18:29 Repeat lab(s) drawn. by vt, sent to lab. ca1 Administered Medications: 11:57 Drug: Aspirin Chewable Tablet 162 mg Route: PO; 12:49 Follow up: Response: No adverse reaction bw 11:57 Drug: Lasix (furosemide) 40 mg Route: IVP; Site: right antecubital; 12:48 Follow up: Response: No adverse reaction Outcome: 11:52 Decision to Hospitalize by Provider. cp 12:46 Admitted to [facility] 12:46 Condition: stable 12:46 Discharge instructions given to patient, family. 18:43 Patient left the ED. iw Signatures: Bertha De Souza RN RN iw Rosa Maria Valiente, tube skiver EKG Tat1 Kevin Morataya PA PA cp Martinez, Maria [facility] Rosa Maria Dykes am2 Prerna Bowen RN RN [facility] Cynthia Sheriff RN RN
--- NOTE | 2020-06-11 11:52 | EDPHYS ---
Physician Documentation [facility] Name: Isiah Gaytan Age: 84 yrs Sex: Male : 1935 Arrival Date: 06/11/2020 Time: 09:26 Bed 14 Private MD: Ronn Wilson ED Physician Conrad Veras HPI: 06/11 09:35 This 84 yrs old Male presents to ER via Wheelchair with complaints of cp Breathing Difficulty, bodyaches. 09:35 The patient has shortness of breath at rest. cp 09:35 Onset: The symptoms/episode began/occurred 2 week(s) ago. cp 09:35 Duration: The symptoms are continuous, and are steadily getting worse. Associated signs cp and symptoms: Pertinent negatives: chest pain, productive cough, diaphoresis, dizziness, fever, vomiting. Severity of symptoms: in the emergency department the symptoms are unchanged despite home interventions. The patient has experienced similar episodes in the past, multiple times. Historical: - Allergies: 09:49 Azithromycin; bw 09:49 Codeine; bw 09:49 Keflex; bw - Home Meds: 09:49 aspirin 81 mg Oral chew 1 tab once daily [Active]; atorvastatin Oral [Active]; Eliquis bw Oral [Active]; sotalol Oral [Active]; Tramadol Oral [Active]; - PMHx: 09:49 High Cholesterol; Hypertension; Myocardial infarction; CHF; bw - Immunization history:: Adult Immunizations up to date, Client reports having NOT received the Covid vaccine. - Social history:: Smoking status: unknown. ROS: 09:40 Constitutional: Positive for body aches, Negative for chills, fever, poor PO intake. cp 09:40 Eyes: Negative for injury, pain, redness, and discharge. cp 09:40 ENT: Negative for ear pain, sore throat, difficulty swallowing, difficulty handling secretions. 09:40 Cardiovascular: Positive for edema, Negative for chest pain, palpitations. 09:40 Respiratory: Positive for shortness of breath, at rest. Negative for wheezing. 09:40 Abdomen/GI: Negative for abdominal pain, nausea, vomiting, and diarrhea. 09:40 Skin: Negative for rash. 09:40 Neuro: Negative for altered mental status, dizziness, headache, syncope, weakness. 09:40 All other systems are negative. Exam: 09:45 Constitutional: The patient appears in no acute distress, alert, awake, cp non-diaphoretic, non-toxic, well developed, well nourished. 09:45 Head/Face: Normocephalic, atraumatic. cp 09:45 Eyes: Periorbital structures: appear normal, Conjunctiva: normal, no exudate, no injection, Sclera: no appreciated abnormality, Lids and lashes: appear normal, bilaterally. 09:45 ENT: External ear(s): are unremarkable, Nose: is normal, Mouth: Lips: moist, Oral mucosa: moist, Posterior pharynx: Airway: no evidence of obstruction, patent. 09:45 Neck: ROM/movement: is normal, is supple, without pain, no range of motions limitations. 09:45 Chest/axilla: Inspection: normal, Palpation: is normal, no crepitus, no tenderness. 09:45 Cardiovascular: Rate: normal, Rhythm: regular, Edema: ankle edema, that is mild, JVD: is not appreciated. 09:45 Respiratory: the patient does not display signs of respiratory distress, Respirations: labored breathing, is not present, intercostal retractions, are absent, shallow respirations, that is mild, Breath sounds: decreased breath sounds, that are mild, throughout, stridor, is not appreciated, wheezing: is not appreciated. 09:45 Abdomen/GI: Inspection: abdomen appears normal, Palpation: abdomen is soft and non-tender, in all quadrants. 09:45 Back: pain, is absent, ROM is normal. 09:45 Skin: cellulitis, is not appreciated, no rash present. 09:45 Neuro: Orientation: to person, place \\T\\ time. Mentation: is normal, Sensation: is normal. 10:50 ECG was reviewed by the Attending Physician. cp Vital Signs: 09:41 BP 155 / 83; Pulse 64; Resp 21; Temp 98.3; Pulse Ox 95% on R/A; bw 11:00 BP 131 / 64; Pulse 47; Resp 12; Pulse Ox 97% on R/A; bw 12:45 BP 142 / 68; Pulse 49; Resp 22; Pulse Ox 97% on R/A; bw 13:57 BP 123 / 56; Pulse 50; Resp 18; Pulse Ox 98% on R/A; bw 15:17 BP 124 / 62; Pulse 62; Resp 15; Pulse Ox 97% on R/A; iw MDM: 09:32 Patient medically screened. 11:35 Data reviewed: vital signs, nurses notes, lab test result(s), EKG, radiologic studies, cp plain films. 11:35 Differential diagnosis: CHF exacerbation, Chronic Obstructive Pulmonary Disease cp pneumonia, Pneumothorax pulmonary edema, Pulmonary Embolism Sepsis Unstable Angina. Antibiotic administration: Not indicated, the patient does not have an appreciated infiltrate. Test interpretation: by ED physician or midlevel provider: ECG, plain radiologic studies. Counseling: I had a detailed discussion with the patient and/or guardian regarding: the historical points, exam findings, and any diagnostic results supporting the discharge/admit diagnosis, lab results, radiology results, the need for further work-up and treatment in the hospital. Physician consultation: Ronn Wilson MD was called at 11:30, was contacted at 11:30, regarding admission, to the telemetry unit. patient's condition. 06/11 09:39 Order name: Basic Metabolic Panel; Complete Time: 11:23 06/11 11:24 Interpretation: Normal except: GLUC 111; GFR 63. 06/11 09:39 Order name: CBC with Diff 06/11 09:39 Order name: LFT's; Complete Time: 11:23 06/11 11:24 Interpretation: Normal except: GLOB 3.6; A/G 1.0. 06/11 09:39 Order name: Magnesium; Complete Time: 11:23 06/11 09:39 Order name: NT PRO-BNP; Complete Time: 11:23 06/11 11:24 Interpretation: Abnormal: NT PRO-BNP 9143. 06/11 09:39 Order name: PT-INR 06/11 09:39 Order name: Troponin (emerg Dept Use Only); Complete Time: 11:23 06/11 11:24 Interpretation: Abnormal: TROPED 0.12. 06/11 09:39 Order name: COVID-19 : Document "Date of Symptom Onset" if Symptomatic. 06/11 09:39 Order name: Influenza Screen (a \\T\\ B) 06/11 10:33 Order name: CORONAVIRUS [facility] 06/11 10:33 Order name: Influenza Screen (A [facility] 06/11 10:36 Order name: CBC with Automated Diff; Complete Time: 11:23 [facility] 06/11 11:24 Interpretation: Normal except: WBC 4.00; RBC 3.73; HGB 11.9; HCT 35.0. cp 06/11 10:45 Order name: Protime (+INR); Complete Time: 11:23 [facility] 06/11 11:21 Order name: COVID-19/FLU A+B; Complete Time: 11:23 [facility] 06/11 09:39 Order name: XRAY Chest (1 view) 06/11 09:39 Order name: EKG; Complete Time: 09:40 cp 06/11 10:45 Order name: RAD; Complete Time: 11:23 [facility] 06/11 14:11 Order name: CONS Physician Consult [facility] 06/11 14:11 Order name: Low Sodium [facility] 06/11 14:11 Order name: Basic Metabolic Panel [facility] 06/11 14:11 Order name: Basic Metabolic Panel [facility] 06/11 14:11 Order name: CBC with Automated Diff [facility] 06/11 14:11 Order name: CBC with Automated Diff [facility] 06/11 14:11 Order name: NT PRO-BNP [facility] 06/11 14:11 Order name: NT PRO-BNP [facility] 06/11 14:11 Order name: Troponin I [facility] 06/11 14:11 Order name: Troponin I [facility] 06/11 14:11 Order name: Troponin I [facility] 06/11 09:39 Order name: Cardiac monitoring; Complete Time: 09:55 cp 06/11 09:39 Order name: EKG - Nurse/Tech; Complete Time: 10:58 cp 06/11 09:39 Order name: IV Saline Lock; Complete Time: 09:55 cp 06/11 09:39 Order name: Labs collected and sent; Complete Time: 09:55 cp 06/11 09:39 Order name: O2 Per Protocol; Complete Time: 09:55 cp 06/11 09:39 Order name: O2 Sat Monitoring; Complete Time: 09:55 cp EC:50 Rate is 55 beats/min. Rhythm is regular. MT interval is prolonged at 308 msec. QRS cp interval is normal. QT interval is normal. Interpreted by me. Reviewed by me. Administered Medications: 11:57 Drug: Aspirin Chewable Tablet 162 mg Route: PO; bw 12:49 Follow up: Response: No adverse reaction bw 11:57 Drug: Lasix (furosemide) 40 mg Route: IVP; Site: right antecubital; 12:48 Follow up: Response: No adverse reaction Disposition: 18:48 Co-signature as Attending Physician, Conrad Veras MD I agree with the assessment and [facility] plan of care. Disposition: 06/11/20 11:52 Hospitalization ordered by Ronn Wilson for Inpatient Admission. Preliminary diagnosis is Unspecified combined systolic (congestive) and diastolic (congestive) heart failure. - Bed requested for Telemetry/MedSurg (Inpatient). - Status is Inpatient Admission. iw - Condition is Stable. - Problem is an acute exacerbation. - Symptoms have improved. Signatures: Dispatcher [employer] [facility] Mahsa Navarro RN RN Bertha De Souza RN RN Kevin Morataya PA PA cp Wadley, Terrence, MD MD [address]Cynthia RN RN Corrections: (The following items were deleted from the chart) 15:26 11:52 Hospitalization Ordered by Ronn Wilson MD for Inpatient Admission. Preliminary dw diagnosis is Unspecified combined systolic (congestive) and diastolic (congestive) heart failure. Bed requested for Telemetry/MedSurg (Inpatient). Status is Inpatient Admission. Condition is Stable. Problem is an acute exacerbation. Symptoms have improved. cp 18:43 15:26 06/11/2020 11:52 Hospitalization Ordered by Ronn Wilson MD for Inpatient iw Admission. Preliminary diagnosis is Unspecified combined systolic (congestive) and diastolic (congestive) heart failure. Bed requested for Telemetry/MedSurg (Inpatient). Status is Inpatient Admission. Condition is Stable. Problem is an acute exacerbation. Symptoms have improved. dw
[2020-06-11] MEDS ORDERED: ASPIRIN 81 MG CHEWABLE TABLET ONE (12:02)
[2020-06-11] MEDS ORDERED: FUROSEMIDE 40 MG/4 ML VIAL ONE (12:02)
[2020-06-12 06:14] LABS: Basophils % 0.6 % (0-1.3); Hematocrit 33.5 % (39.6-49.0); Lymphocytes % 26.9 % (15.3-44.8); MPV 8.9 fL (7.6-11.3); RBC Red Blood Cell Count 3.56 M/uL (4.33-5.43)
[2020-06-12 06:29] LABS: Potassium 3.3 mmol/L (3.5-5.1)
[2020-06-12] MEDS ORDERED: ACETAMINOPHEN 500 MG TAB PO PRN (08:26)
[2020-06-12] MEDS: FUROSEMIDE 40 MG/4 ML VIAL IV SCH (08:57)
[2020-06-12] MEDS ORDERED: SOTALOL HCL 80 MG TAB PO SCH (09:00)
[2020-06-12] MEDS ORDERED: APIXABAN 5 MG TABLET PO SCH (09:00)
[2020-06-12] MEDS ORDERED: POTASSIUM 25 MEQ EFFERV TAB PO ONE (13:15)
--- NOTE | 2020-06-12 16:48 | PN ---
Date of Progress Note: 06/12/2020 Subjective: The patient states he is basically asymptomatic when seen. However, he still has an gurpreet vation of his troponin and his description of what happened precipitating his visit to the ER is some what consistent with coronary insufficiency. Awaiting cardiology consultation. We will continue wit h his Lasix IV. He states this does seem to produce a better result in the p.o. medications. HR/MODL Voice ID: [id number] Report ID: [id number]
--- NOTE | 2020-06-12 18:39 | HP ---
Date of Admission: 06/11/2020 Entrance Complaint: Chest pain, generalized weakness. History Of Present Illness: The patient states that he woke up today. On admission, he was weak. Sheba maurice says all over some tingling in his fingers. He then developed some pressure in the central part of his chest midepigastric area, which radiated difficult to breathe and then he was seen in the emerge ncy room and admitted for possible coronary insufficiency. Past Medical History: The patient has had significant cardiovascular disease, peripheral vascular di sease. He has been seen by Cardiology within the past couple of months, when he states he including stress procedure at that time. Social History: Nonsmoker, nondrinker. Family History: Noncontributory. Physical Examination: General: The patient is an elderly male, in no acute distress. Vital Signs: Stable. Head and Neck: Normocephalic. Pupils equal and reactive to light and accommodation. Fundi negative . Trachea midline. Thyroid not palpable. ENT: Negative. Chest: Clear to P and A. Cardiovascular: PMI in midclavicular line. Heart sounds normal. Peripheral pulses present and equa l bilaterally. Abdomen: No organomegaly. Bowel sounds present. Extremities: Good tone and movement bilaterally. Reflexes physiologic. Rectal: Deferred. Impression: Chest pain, unknown etiology. Plan: The patient will be admitted, cardiac workup will be evaluated. He will be placed on IV Lasix seems to be involved. We will get a cardiology consult. HR/MODL Voice ID: [id number]
[2020-06-12] MEDS: ACETAMINOPHEN 500 MG TAB PO PRN (21:10)
[2020-06-12] MEDS: SOTALOL HCL 80 MG TAB PO SCH (21:11)
[2020-06-12] MEDS: APIXABAN 5 MG TABLET PO SCH (21:11)
[2020-06-13] MEDS: SOTALOL HCL 80 MG TAB PO SCH ×2 (09:00→20:20)
[2020-06-13] MEDS: FUROSEMIDE 40 MG/4 ML VIAL IV SCH ×2 (09:23→14:00)
[2020-06-13] MEDS: APIXABAN 5 MG TABLET PO SCH ×2 (09:28→20:32)
--- NOTE | 2020-06-13 13:56 | CON ---
Date of Consultation: 06/12/2020 Reason For Consultation: Chest pain and shortness of breath. History Of Present Illness: An 84-year-old male, follows with Dr. Navarro in the office. Has histor y of diastolic heart failure, hypertension, coronary artery disease with multiple stents in the past, atrial fibrillation, on chronic anticoagulation, presented to the emergency room for generalized wea kness. Has been having chest pain also and shortness of breath along with wheezing, palpitations. D enies having any nausea, vomiting, or diaphoresis. The patient has been having more frequent chest p ain lately and in the hospital, his cardiac enzymes were borderline at 0.11, troponin 0.12, and BNP i s around 9000. I evaluated him by bedside and he was chest pain free, but he tells me that his chest pain has become more frequent. Past Medical History: As outlined above in HPI. Medications: Refer to reconciliation sheet for detailed list. Allergies: REVIEWED. REFER TO NURSE'S NOTE. Social History: Does not smoke or drink. Does not use any drinks. Family History: No premature coronary artery disease or cancer. Review of Systems: All systems reviewed and they were negative except what is mentioned in HPI. Physical Examination: Vital Signs: Reviewed. Head and Neck: Pupils are equal, reactive to light. Intact eye movements. No JVD. No cervical lym phadenopathy. Neck: Supple. Thyroid is not enlarged. Lungs: Decreased breathing sounds with scattered wheezing. No accessory muscle use or muscle struct ure. Heart: Irregular. No extra sounds. Abdomen: Soft, nontender. Bowel sounds positive. No organomegaly. No masses or hernia. No rigidi ty or rebound. Extremities: No clubbing or cyanosis. Intact pulses. Skin: No rash. Neurologic: Alert, awake, no acute focal deficits appreciated. Lymph Nodes: No cervical or axillary lymphadenopathy. Investigations: Troponins peaked at 0.12. BNP is close to 9000. Assessment And Recommendations: 1.Chest pain with troponin leak, could be suggestive of non-ST elevation myocardial infarction. The patient is known to have coronary artery disease and he is very well known to Dr. Navarro. The fact that this patient is having more frequent chest pain and having troponin leak, he would benefit from a coronary angiogram. I discussed this with the patient and we will discuss this further with Dr. More cox who is his primary oncology coordinator to finalize this plan. Please keep n.p.o. after midnight on S unday to determine the final plan Sunday morning on this matter. Meanwhile, continue aspirin and ant icoagulation with heparin or Lovenox. 2.Chronic atrial fibrillation with recent fall. The patient will benefit from left atrial appendage closure. Again, we will discuss this further with his primary oncology coordinator, Dr. Navarro. 3.Acute diastolic heart failure exacerbation. Agree with diuresis. Thank you for the consultation. /JAYLEEN Voice ID: [id number] Report ID: [id number]
[2020-06-13] MEDS: ACETAMINOPHEN 500 MG TAB PO PRN ×2 (13:59→20:37)
[2020-06-13] MEDS ORDERED: BISACODYL E.C. 5 MG TAB PO ONE (14:00)
[2020-06-13] MEDS ORDERED: BISACODYL 10 MG RECTAL SUPP PR ONE (15:00)
[2020-06-13 15:25] LABS: Absolute Lymphocytes (CBC) 1.4 K/uL (0.7-4.9); Basophils % 0.8 % (0-1.3); Lymphocytes % 29.3 % (15.3-44.8); MPV 9.1 fL (7.6-11.3); RBC Red Blood Cell Count 4.32 M/uL (4.33-5.43)
[2020-06-13 15:39] LABS: Potassium 3.9 mmol/L (3.5-5.1)
--- NOTE | 2020-06-13 16:47 | PN ---
Date of Progress Note: 06/13/2020 Subjective: Seen by bedside. Doing better. No further chest pain, shortness of breath. Review of Systems: No further chest pain, shortness of breath. No nausea, vomiting, diarrhea. No abdominal pain. No h istory of urinary urgency. Has constipation. All other systems reviewed are negative. Physical Examination: Vital Signs: Temperature is 97.6, pulse 58, breathing at 18, blood pressure 151/70, saturating 100%. General: Pleasant elderly male, in no distress. Head and Neck: Pupils are equal, reactive to light. Intact eye movements. No JVD. No cervical lym phadenopathy. Neck: Supple. Thyroid is not enlarged. Lungs: Clear to auscultation bilaterally. No rhonchi, rales, or crackles. No accessory muscle use. Heart: Irregular. No extra sounds. Abdomen: Soft, nontender. Bowel sounds positive. No organomegaly. No masses or hernia. No rigidi ty or rebound. Extremities: No clubbing or cyanosis. Intact pulses. Skin: No rash noted. Neurologic: Alert, awake, oriented x3. No acute focal deficits appreciated. Investigations: Creatinine 0.95, BNP 7109, hemoglobin 11.4. Assessment And Recommendations: 1.Chest pain with troponin leak, more frequent chest pain lately and the patient is known to have hi story of coronary artery disease. A coronary angiogram might need to be done. We will discuss this issue further with Dr. Navarro who is his primary weaving teacher. Please keep n.p.o. past midnight in case decision of coronary angiogram is made to be done tomorrow. 2.Chronic atrial fibrillation with recent fall, which brought him to the ER, this hospitalization. Definitely, he is at high risk for being on anticoagulation. However, his CHADS-VASc score is elevat ed. Recommend left atrial appendage closure and discontinuation of anticoagulants. 3.Acute on chronic diastolic congestive heart failure, doing better. Continue IV Lasix 40 mg q.8 ho urs. Carefully monitor BUN, creatinine, electrolytes. SR/MODL Voice ID: [id number] Report ID: [id number]
[2020-06-13] MEDS ORDERED: FUROSEMIDE 40 MG/4 ML VIAL IV SCH (17:00)
--- NOTE | 2020-06-13 18:29 | PN ---
Date of Progress Note: 06/13/2020 The patient states he woke up today. He was once again short of breath, has difficulty lying flat, w hich he stated that improved after he got his IV Lasix. This will be reinstituted at 40 mg now and q .8h. Cardiology discussed the possibility of a catheterization procedure with him. Potassium is now stable on 2 L. His O2 saturation is fine. He denies any chest pain. However, in view of the persi stent symptoms and positive cardiac enzymes, I feel the catheterization is probably indicated. HR/MODL Voice ID: [id number] Report ID: [id number]
[2020-06-14] MEDS: FUROSEMIDE 40 MG/4 ML VIAL IV SCH ×2 (00:38→10:42)
[2020-06-14 06:03] LABS: Absolute Lymphocytes (CBC) 1.1 K/uL (0.7-4.9); Basophils % 0.8 % (0-1.3); Hematocrit 39.9 % (39.6-49.0); Lymphocytes % 23.9 % (15.3-44.8); MPV 8.8 fL (7.6-11.3); RBC Red Blood Cell Count 4.25 M/uL (4.33-5.43)
[2020-06-14 06:13] LABS: Potassium 3.9 mmol/L (3.5-5.1)
[2020-06-14] MEDS: APIXABAN 5 MG TABLET PO SCH ×3 (09:00→21:28)
[2020-06-14] MEDS ORDERED: POTASSIUM CL SA 10 MEQ TAB PO ONE (09:00)
[2020-06-14] MEDS: SOTALOL HCL 80 MG TAB PO SCH ×2 (10:44→21:29)
[2020-06-14] MEDS ORDERED: FUROSEMIDE 40 MG/4 ML VIAL IV SCH (17:00)
--- NOTE | 2020-06-14 17:36 | PN ---
Date of Progress Note: 06/14/2020 The patient states he feels much better today. He has marked diuresis. Some question whether he ski pped a dose of Lasix at home. At this time, I think we will convert him back to his home regimen and if tolerated discharge in a.m. and put any procedure on hold unless he has a change in condition. HR/MODL Voice ID: [id number] Report ID: [id number]
[2020-06-14] MEDS: FUROSEMIDE 40 MG TABLET PO SCH (17:53)
[2020-06-14] MEDS: ACETAMINOPHEN 500 MG TAB PO PRN (18:12)
[2020-06-15 05:39] LABS: Potassium 3.4 mmol/L (3.5-5.1)
[2020-06-15] MEDS: ACETAMINOPHEN 500 MG TAB PO PRN (06:21)
[2020-06-15 06:30] VITALS: BMI 23.4
[2020-06-15] MEDS ORDERED: TRAMADOL HCL 50 MG TAB PO PRN (06:48)
[2020-06-15] MEDS ORDERED: LORAZEPAM 0.5 MG TABLET PO ONE (07:20)
[2020-06-15 07:45] LABS: Troponin I 0.12 ng/mL (0.0-0.045)
[2020-06-15 07:49] LABS: Absolute Lymphocytes (CBC) 1.1 K/uL (0.7-4.9); Basophils % 0.7 % (0-1.3); Hematocrit 35.3 % (39.6-49.0); Lymphocytes % 29.2 % (15.3-44.8); RBC Red Blood Cell Count 3.74 M/uL (4.33-5.43)
[2020-06-15] MEDS: FUROSEMIDE 40 MG TABLET PO SCH ×2 (07:53→16:23)
[2020-06-15] MEDS: SOTALOL HCL 80 MG TAB PO SCH ×2 (07:54→20:28)
[2020-06-15] MEDS: APIXABAN 5 MG TABLET PO SCH (07:54)
[2020-06-15] MEDS ORDERED: POTASSIUM 25 MEQ EFFERV TAB PO ONE (09:00)
--- NOTE | 2020-06-15 12:18 | EKG ---
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: CV MEASUREMENT RESULTS: Intervals: Rate: 57 AR: QRSD: 82 QT: 416 QTc: 404 Friendly: P: AR: QRS: 20 T: 205 INTERPRETIVE STATEMENTS: Atrial fibrillation with slow ventricular response with a competing junctional pacemaker Possible Inferior infarct, age undetermined Cannot rule out Anterior infarct, age undetermined ST & T wave abnormality, consider lateral ischemia or digitalis effect Abnormal ECG Compared to ECG 06/11/2020 10:41:46 Sinus bradycardia no longer present First degree AV block no longer present Myocardial infarct finding still present ST (T wave) deviation still present Possible ischemia still present Electronically Signed On 06-15-20 12:13:43 CDT by Pollo Navarro
[2020-06-15] MEDS ORDERED: BISACODYL 10 MG RECTAL SUPP PR PRN ×2 (16:05→17:56)
--- NOTE | 2020-06-15 20:04 | PN ---
Date of Progress Note: 06/15/2020 Subjective: The patient had another episode of chest discomfort and shortness of breath this morning . Ativan was given and he stated he did get eventually some relief. This is the question of his epi sodes being correlated between vascular and anxiety. In any event discussion with the area sales manager w as made. The patient continued to have an elevated troponin, has felt the catheterization would be i ndicated. This will be scheduled for as he has been on Eliquis. The latter will be held. He continue on his Lasix. He continues diuresed. We will monitor the next 48 hours with tentative d iagnosis of acute on chronic exacerbation of CHF, compound by a non-STEMI IN. HR/MODL Voice ID: [id number] Report ID: [id number]
[2020-06-15] MEDS: DOCUSATE NA 100 MG CAP PO SCH (20:29)
[2020-06-15] MEDS: LORAZEPAM 0.5 MG TABLET PO PRN (20:35)
[2020-06-16] MEDS: ACETAMINOPHEN 500 MG TAB PO PRN ×2 (01:21→14:38)
[2020-06-16 06:09] LABS: Potassium 3.9 mmol/L (3.5-5.1)
[2020-06-16] MEDS ORDERED: POTASSIUM CL SA 10 MEQ TAB PO ONE (08:09)
[2020-06-16] MEDS: SOTALOL HCL 80 MG TAB PO SCH ×2 (09:00→20:50)
[2020-06-16] MEDS: FUROSEMIDE 40 MG TABLET PO SCH ×2 (09:36→16:15)
[2020-06-16] MEDS: DOCUSATE NA 100 MG CAP PO SCH ×2 (09:36→20:50)
[2020-06-16] MEDS: LORAZEPAM 0.5 MG TABLET PO PRN (20:55)
--- NOTE | 2020-06-16 21:17 | PN ---
Date of Progress Note: 06/16/2020 The patient states he feels fine today with basically decreased output compared to the last couple da ys, but he has lost a significant amount of fluid. He is scheduled for a catheterization in a.m., an d obviously depending on the results, will determine his disposition and medication requirements HR/MODL Voice ID: [id number] Report ID: [id number]
[2020-06-17] MEDS: SOTALOL HCL 80 MG TAB PO SCH (05:37)
[2020-06-17] MEDS ORDERED: LIDOCAINE 1% 20 ML MDV ONE (07:22)
[2020-06-17] MEDS ORDERED: NA CHLORIDE 0.9% 500 ML ONE (07:22)
[2020-06-17] MEDS ORDERED: HEPA 1000U/500MLS 1,000 UNIT/500 ML BAG IV ONE (07:22)
[2020-06-17] MEDS ORDERED: MIDAZOLAM HCL 2 MG/2 ML INJ ONE (07:50)
[2020-06-17] MEDS ORDERED: ATROPINE SULF 1 MG/10 ML SYR IV ONE (07:51)
[2020-06-17] MEDS ORDERED: FENTANYL CITR 100 MCG/2 ML ONE (07:51)
[2020-06-17] MEDS ORDERED: NA CHLORIDE 0.9% 0 ML ONE (07:51)
[2020-06-17 08:34] VITALS: O2SAT 100
[2020-06-17] MEDS: DOCUSATE NA 100 MG CAP PO SCH (10:33)
[2020-06-17] MEDS: FUROSEMIDE 40 MG TABLET PO SCH (10:34)
--- NOTE | 2020-06-17 11:55 | OP ---
Date of Procedure: 06/17/2020 Surgeon: Pollo Navarro MD Industrial Maintenance Millwright: Erin Wolf. The patient will be at bedrest for 2 more hours after Angio-Seal closure of his right groin. Procedures: Left heart catheterization, selective coronary arteriogram. Indication: Chest pain and troponin leak. Procedure In Detail: Mr. Gaytan is an 84-year-old, patient of Dr. Wilson, very well known to me fr om previous office visits, admissions and procedures. Admitted on 06/11/2020. Heart catheterization was planned for today. He was prepped and draped in the routine sterile fashion in the laborer wood preserving plant. G iven Versed and fentanyl for sedation. A 6-Citizen Of [place] sheath was introduced in the right common femoral artery successfully using the Seldinger technique. Left and right Yazan catheter were used to brent ulate the left main and the right main. His RCA had some diffuse plaquing, but it was small and nond ominant. His left system showed a normal left main. He had some mild diagonal disease, normal circu mflex and he is left dominant. He had a patent mid LAD stent. He had a proximal LAD stent with 30% in-stent restenosis. There were no complications. Blood Loss: 5 mL. Postoperative Diagnoses: Mild coronary artery disease, patent LAD stent. Plan: To continue medical therapy. Anesthesia: Total conscious sedation was 45 minutes. He will go home today and I will see him in the office in the next 2 weeks. No changes in medical th erapy for now. I will discuss the case further with Dr. Wilson. NB/MODL Voice ID: [id number] Report ID: [id number]
--- NOTE | 2020-06-17 12:02 | PN ---
Date of Progress Note: 06/16/2020 Mr. Gaytan was admitted by Dr. Wilson on 06/11/2020 for chest pain, elevated troponin, weakness, fa tigue probably secondary to acute on chronic diastolic congestive heart failure. We had decided afte r discussion with the family and with the patient and Dr. Wilson to hold Eliquis and perform a heart catheterization on 06/17/2020 to define his coronary anatomy. He had 2 LAD stents before. We will see what that shows tomorrow before making any further decisions. PEDRO/JAYLEEN Voice ID: [id number] Report ID: [id number]
[2020-06-17 12:42] VITALS: BP 109/56; TEMP 97
--- NOTE | 2020-06-17 20:05 | PN ---
Date of Progress Note: 06/17/2020 The patient states he feels about the same this morning. No dyspnea. Urinary output has stabilized. Catheterization revealed patent grafts. Rest of his arteries look reasonable as well. I think the etiology here is CHF component by the fact that possibly . We will therefore put him rick k on the 80 mg b.i.d. and Aldactone 25 mg daily to his regimen and the patient is to be seen by Casie ology in 2 weeks and by myself in 1 week. HR/MODL Voice ID: [id number] Report ID: [id number]
[2020-06-18] MEDS ORDERED: APIXABAN 5 MG TABLET PO SCH (09:00)
== END 2020-06-17 14:40 | disposition home or self-care (01) | DRG 281 ==
LOC: ER 09:24 → ERHOLD 14:09 → 2ND 18:31
PROVIDERS: ADMIT Family Medicine; ATTEND Family Medicine
PROC: 4A023N7 Measurement of Cardiac Sampling and Pressure, Left Heart, Percutaneous Approach (ICD-10-PCS; principal; 2020-06-17)
PROC: B2111ZZ Fluoroscopy of Multiple Coronary Arteries using Low Osmolar Contrast (ICD-10-PCS; 2020-06-17)
DX: I11.0 Hypertensive heart disease with heart failure (principal); I21.4 Non-ST elevation (NSTEMI) myocardial infarction; I48.20 Chronic atrial fibrillation, unspecified; I50.33 Acute on chronic diastolic (congestive) heart failure; I25.10 Atherosclerotic heart disease of native coronary artery without angina pectoris; I25.2 Old myocardial infarction; Z88.1 Allergy status to other antibiotic agents; Z88.5 Allergy status to narcotic agent; Z88.8 Allergy status to other drugs, medicaments and biological substances; Z95.5 Presence of coronary angioplasty implant and graft; Z79.82 Long term (current) use of aspirin; Z79.01 Long term (current) use of anticoagulants; Z79.899 Other long term (current) drug therapy; Z20.822 Contact with and (suspected) exposure to COVID-19
CPT/HCPCS: 0240U; 36415; 71045; 80048; 80076; 83735; 83880; 84132; 84484; 85025; 85610; 93005; 93454; 96374; 99285; C1760; C1893; J0583; J1644; J1940; J2250; J3010; J7040

== ENCOUNTER 2020-08-30 12:51 | Inpatient (IN) | payer OTHER ==
--- OUTSIDE RECORDS SUMMARY | 2020-08-30 13:00 | XMS REPORT | Continuity of Care Document ---
:1935 Author Organization [facility] t Address [address] [place] [place] [address] Care Team Providers Name Role Phone Komal LOCKETT, N Primary Care Physician Jaycob Toribio Attending Clinician Dora LOCKETT Attending Clinician Flor Ag Attending Clinician Nithya Admitting Clinician Payers Payer Name Policy Type Policy Effective Date Expiration Date Sour ce Number AETNA MEDICAREAETNA [id number] 2013 MD Shahla ga MEDICARE 00:00:00 [id number] -PresentMedicare Problems Condition Condition Condition Status Onset Resolution Last Treating Co mments Source Name Details Category Date Date Treatment Clinician Date FEVER Diagnosis Active 2018-022019-01-27 Mem oria 14 22:24:00 l FEVER 00:00: Philip 00 Active 01/09/2019 MH Gilbert Unexplaine Unexplaine Disease Active 2018-02 Last M D d falls d falls 0-22 Assessmen Willis so 00:00: t & Plan: n 00 Formattin g of this note might be different from the original. It is possible that Mr. Gaytan experienc [...] Plan: n , so , so 00 Formattin stated stated g of this note might be different from the original. Mr. Gaytan showed significa nt cognitive impairmen t across [...] Displaced Displaced Disease Active Overview: intertroch intertroch 9-03 Formattin Anderso anteric anteric 00:00: g of this n fracture fracture 00 note of right of right might be femur femur different from the original. Added automatic ally from request for surgery [id number] Encounter Encounter Disease Active Overview: for other for other -24 Formattin A nderso preprocedu preprocedu 00:00: g of this n ral ral 00 note examinatio examinatio might be n n different from the original. 10/01/18 ECHO Interpret ation SummaryA complete two-dimen sional transthor acic echocardi [...] 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 [id number]/12 Carotid Duplex: <50% plaque within right ICA, normal left ICA, antegrade flow within bilateral vertebral arteriesO records from [place], [place] Ceospor t Cardiolog yrevramon [facility] 05/09/17: LAD prox patent stent X 2, mid 95% successfu l PCI to LADEchoca rdiogram: 05/08/17: normal LVH, 60-65%, LVH, aortic valve sclerosis , mild pHTNStres s test 07/09/18: adenosine nuclear stress: mildly abnormal myocardia l perfusion (low risk scan based on my discussio n with his home cardiolog ist) per Cardiolog y note 10/02/18 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 00 Atrial Problem Active 2020-08-12 Memor ia fibrillati 00:38:44 l on Atrial [place] (disorder) fibrillati on (disorder) Active Problem 08/12/2020 [facility] Paresthesi Problem Active 2020-08-12 M emoria a 00:38:44 l (finding) Philip Paresthesi a (finding) Active Problem 08/12/2020 [facility] Tremor Problem Active 2020-08-12 Memor ia (finding) 00:38:44 l Tremor Philip (finding) Active Problem 08/12/2020 [facility] Carpal Problem Active 2020-08-12 Memor ia tunnel 00:38:44 l syndrome Carpal Clifford n (disorder) tunnel syndrome (disorder) Active Problem 08/12/2020 [facility] Parkinson' Problem Active 2020-08-12 M emoria s disease 00:38:44 l (disorder) Clifford n Parkinson' s disease (disorder) Active Problem 08/12/2020 [facility] Hallucinos Hallucinos Disease Active M D is is Andbrittney n History of Past Illness Condition Condition Condition Status Onset Resolution Last Treating Co mments Source Name Details Category Date Date Treatment Clinician Date Chills Problem 2018-022019-01-21 2019-01-21 M emoria (without 1-14 22:44:12 22:44:12 l fever) Chills 18:00: Philip (without 00 fever) 01/09/2019 01/21/2019 Gilbert Allergies, Adverse Reactions, Alerts Allergy Allergy Status Severity Reaction(s) Onset Inactive Treating Comm ents Source Name Type Date Date Clinician Keflex Keflex Active Memoria l [place] codeine codeine Active Memoria l [place] Cipro Cipro Active Memoria l Philip Family History Family Member Diagnosis Comments Start Date Stop Date Source Family member VTE MD Blackwell Family member Bleeding Disorder MD Sumeet grant Family member Coronary artery disease Family member Stroke MD Blackwell Maternal grandmother Diabetes MD Sumeet grant Natural mother -Colon cancer MD Arya mitchell Natural mother Hypertension MD Willis campos Social History Social Habit Start Date Stop Date Quantity Comments Source History of tobacco Current smoker MD Blackwell use Social History 2020-08-09 2020-08-09 [facility] 20:37:37 20:37:37 Cigarettes smoked 2018-12-17 2018-12-17 MD Arya mitchell current (pack per 00:00:00 00:00:00 day) - Reported Cigarette 2018-12-17 2018-12-17 MD Blackwell pack-years 00:00:00 00:00:00 Tobacco use and 2018-12-17 2018-12-17 Former user MD Willis campos exposure 00:00:00 00:00:00 Alcohol intake 2018-12-17 2018-12-17 Ex-drinker MD Adam romero 00:00:00 00:00:00 (finding) Sex Ass[birth year] At [birth year] M MD Rob on 00:00:00 00:00:00 Smoking Status Start Date Stop Date Source Former smoker 2018-12-17 00:00:00 2018-12-17 00:00:00 MD Willis campos Medications Ordered Filled Start Stop Current Ordering Indication Dosage Frequency Signature Comments Components Source Medication Medication Date Date Medication? Clinician (SIG) Name Name Carbidopa Yes 1 tab, PO, Me moria 25 MG / 6-14 BID, # 60 l Levodopa 21:52: tab, 3 [place] 100 MG Oral 00 Refill(s), Tablet Pharmacy: [Sinem[facility] 25-100] [facility] #6704, 175.26, cm, 07/19/20 14:31:00 CDT, Height, 75.909, kg, 07/19/20 14:31:00 CDT, Weight Sotalol Yes 80 mg = 1 Memor ia 5-24 tab, PO, l 20:02: BID, # 60 Philip 00 tab, 0 Refill(s) Lasix Yes 80 mg, PO, Memori a 5-24 BID, 0 l 20:01: Refill(s) [place] meloxicam Yes 15 mg, PO, Me moria 5-24 Daily, 0 l 20:00: Refill(s) [place] Fleet 2018-02 No Notes: Memoria Mineral Oil -24 (Same l Enema 19:58: as:Fleet Mineral Oil Enema) naproxen 2018-02 Yes 500 mg = 1 Mem oria 500 mg oral 1-24 tab, PO, l tablet 15:04: BID, X 7 Philip 00 day, # 14 tab, 0 Refill(s), Pharmacy: [id number] bisacodyl 2018-02 Yes 10 mg = 1 Mem oria 10 mg 1-24 supp, MS, l rectal 15:04: Daily, PRN Lilly nn suppository 00 Constipati on, # 10 supp, 0 Refill(s), Pharmacy: [facility] #6704 Docusate 2018-02 Yes 100 mg = 1 Mem oria Sodium 100 1-24 cap, PO, l MG Oral 15:04: BID, # 60 Lilly nn Capsule 00 cap, 0 [Colace] Refill(s), Pharmacy: [id number] bisacodyl 2018-02 Yes 10 mg = 2 M emoria mg oral 1-24 tab, PO, l enteric 15:04: Daily, PRN Herm ayush coated 00 Constipati tablet on, X 10 day, # 20 tab, 0 Refill(s), Pharmacy: [id number] POLYETHYLEN 2018-02 Yes 17 gm, PO, Memoria E GLYCOL 1-24 Daily, PRN l 3350 142 15:04: Constipati Her pinon MG/ML Oral 00 on, # 255 Solution gm, 0 [Miralax] Refill(s), Pharmacy: [id number] Lactulose 2018-02 No Notes: Memori a 667 MG/ML -24 (Same l Oral 01:11: as:Chronul [place] Solution 00 ac) Lactulose 2018-02 No Notes: Memori a 667 MG/ML -23 (Same l Oral 14:13: as:Chronul [place] Solution 00 ac) Dulcolax 2018-02 No Notes: Memoria Laxative - (Same As: l 12:41: Dulcolax, Philip 00 [...] e 1-21 Tablet l 19:15: should not [place] 00 be chewed or crushed. (Same as: Protonix) Phenergan 2018-02 No Notes: Memori a 1-20 (Same as: l 00:41: Phenergan) [place] 00 Phenergan 2018-02 No 25 mg, Memori a 1-20 Route: IM, l 00:40: Q6H, [place] 00 Dosing Weight 74.2, kg, PRN Nausea & Vomiting, Start date: 01/14/19 18:40:00 [place], Duration: 30 day, Stop date: 02/13/19 18:39:00 [place] Dulcolax 2018-02 No Notes: Memoria Laxative - (Same As: l 16:12: Dulcolax, [place] 00 Bisco-Lax) Levaquin 2018-02 No Notes: Do Pepe micki 1-19 not give l 12:00: w/antacids [place] 00 , dairy pdt & minerals Take 1 hr before or 2 hr after dairy products metoprolol 2018-02 No Notes: Memor ia extended 1-18 (Same as: l release 20:49: Toprol XL) Herm ayush May split tab, but do not crush. Albuterol 2018-02 No Notes: Memori a 0.833 MG/ML -18 (Same as: l / 20:49: Duoneb) Ipratropium 00 [place] 0.167 MG/ML Inhalant Solution Docusate 2018-02 No 100 mg = 1 Mem oria Sodium 100 1-18 cap, PO, l MG Oral 16:51: BID, 0 [place] Capsule 00 Refill(s) Famotidine 2018-02 Yes 20 mg = 1 Me moria 20 MG Oral 1-18 tab, PO, l Tablet 16:51: BID, 0 [place] 00 Refill(s) naproxen 2018-02 No 500 mg = 2 Mem oria 250 mg oral 1-18 tab, PO, l tablet 16:51: BID, 0 Philip 00 Refill(s) Dulcolax 2018-02 No Notes: Memoria Laxative 1-18 (Same As: l 15:00: Dulcolax, Philip 00 Correctol) (Do Not Crush) "Do Not Crush" Miralax 2018-02 No Notes: Memoria 1-18 Dissolve l 15:00: in 8 oz of water or juice. (Same as: Miralax) Naproxen 2018-02 No Notes: Memoria 1-17 (Same as: l 16:38: Naprosyn) Take with food. Famotidine 2018-02 No Notes: Memor ia 20 MG Oral 1-16 (Same as: l Tablet 23:00: Pepcid) Philip 00 Levofloxaci 2018-02 No Notes: Pepe micki n 1-16 (Same l 07:00: as:Levaqui 00 n) Docusate 2018-02 No Notes: Memoria Sodium 100 1-15 (Same as: l MG Oral 23:00: Colace) Philip Capsule 00 (Do Not Crush) Acetaminoph 2018-02 No Notes: Do M emoria en 325 MG / 1-15 not exceed l Hydrocodone 19:50: 4gm/day of Philip Bitartrate 00 acetaminop 10 MG Oral hen. Tablet (Same as: [[place] [id number]] 325/10) clopidogrel 2018-02 No Notes: Pepe micki 1-15 (Same As: l 15:02: Plavix) [place] 00 Flomax 2018-02 No Notes: Memoria 1-15 (Same As: l 15:02: Flomax) "Do Not Crush" Morphine 2018-02 No 2 mg, 1 Memori a 1-15 mL, Route: l 11:04: IVP, Drug form: SOLN, Q4H, Dosing Weight 74.2, kg, PRN Pain Score 7-10, Start date: 01/10/19 5:04:00 CORRECTION WARDEN, Duration: 30 day, Stop date: 02/09/19 5:03:00 CORRECTION [place]ARDEN, 0 Streptococc 2018-02 No Notes: Pepe micki us 1-15 Shake well l pneumoniae 09:35: prior to Her pinon serotype 1 51 use (Same capsular as: antigen Prevnar diphtheria 13) [id number] protein conjugate vaccine / Streptococc us pneumoniae serotype 14 capsular antigen diphtheria [id number] protein conjugate vaccine / Streptococc us pneumoniae serotype 18C capsular antigen d metoprolol 2018-02 Yes 50 mg = 1 Me moria 50 mg oral 1-15 tab, PO, l tablet, 09:19: Daily, # Clifford n extended 00 30 tab, 0 release Refill(s) clopidogrel 2018-02 Yes 75 mg = 1 M emoria 75 mg oral 1-15 tab, PO, l tablet 09:19: Daily, # Philip 00 30 tab, 0 Refill(s) atorvastati 2018-02 Yes 80 mg, PO, Memoria n 1-15 Daily, 0 l 09:19: Refill(s) [place] 00 Tamsulosin 2018-02 Yes 0.4 mg = 1 M emoria hydrochlori 1-15 cap, PO, l de 0.4 MG 09:19: Daily, # Herm ayush Oral 00 30 cap, 0 Capsule Refill(s) [Flomax] Albuterol 2018-02 No Notes: Memori a 0.833 MG/ML -15 (Same as: l / 09:00: Duoneb) Philip Ipratropium 00 [place] 0.167 MG/ML Inhalant Solution Ondansetron 2018-02 No Notes: Pepe micki -15 (Same as: l 08:36: Zofran) [place] 00 MEDICATION WASTE Product Size: 4 mg Product Wasted: ___ mg Albuterol 2018-02 No Notes: SEE Me moria 0.83 MG/ML -15 RT l Inhalant 08:36: DOCUMENTAT Her pinon Solution 00 ION (Same as: Proventil) NS 1,000 mL 2018-02 No 1,000 mL, M emoria -15 Rate: 60 l 08:33: ml/hr, [place] 00 Infuse over: 16.7 hr, Route: IV, Dosing Weight 74.2 kg, Total Volume: 1,000, Start date: 01/10/19 2:33:00 COR[place]CTION [place]ARD[place], Duration: 1 doses or times, Stop date: 01/10/19 19:14:00 [place], 1.91, m2, 0 Morphine 2018-02 No Notes: Memoria -15 (Same l 07:20: as:MORPhin Philip 00 e Sulfate) Zofran 2018-02 No Notes: Memoria -15 (Same as: l 07:20: Zofran) Philip 00 MEDICATION WASTE Product Size: 4 mg Product Wasted: ___ mg Levaquin 2018-02 No Notes: Memoria 1-15 (Same l 07:17: as:Levaqui [place] 00 n) Zofran 2018-02 No Notes: Memoria 1-15 (Same as: l 04:21: Zofran) [place] 00 MEDICATION WASTE Product Size: 4 mg Product Wasted: ___ mg Saline 2018-02 No Notes: Memoria Flush 0.9% -15 (Same as: l 04:20: BD Philip 00 Posiflush) Sodium 2018-02 No 1,000 mL, Memori a Chloride 1-15 2,000 l 0.9% 04:20: ml/hr, [place] (Bolus) IV 00 Infuse Over: 0.5 hr, Route: IV, 1,000, Drug form: INJ, ONCE, Priority: STAT, Dosing Weight 74.2 kg, Start date: 01/09/19 22:20:00 [place], Stop date: 01/09/19 22:20:00 [place], 0 metoprolol 2018-02 Yes 50mg Take 50 [...] daily. n 1.1 % 00 of scalp Parsons dental teeth with cream cream and spit [...] Name Observation Time Observation Value Comments Source Systolic (mm Hg) 2020-08-09 20:36:00 Pepe rial Philip Diastolic (mm Hg) 2020-08-09 20:36:00 Mem orial Philip Heart Rate 2020-08-09 20:36:00 [facility] [place] Respitory Rate 2020-08-09 20:36:00 Memori al Philip Systolic (mm Hg) 2020-07-19 19:31:00 Pepe rial Philip Diastolic (mm Hg) 2020-07-19 19:31:00 Mem orial [place] Heart Rate 2020-07-19 19:31:00 [facility] Philip Respitory Rate 2020-07-19 19:31:00 Memori al [place] Height 2020-07-19 19:31:00 175.26 cm [facility] [place] Weight 2020-07-19 19:31:00 [facility] Philip BMI Calculated 2020-07-19 19:31:00 Memori al Philip Temperature Oral (F) 2019-01-19 21:26:00 97.6 F [facility] [place] Heart Rate 2019-01-19 21:26:00 [facility] Philip Respitory Rate 2019-01-19 21:26:00 Memori al [place] Systolic (mm Hg) 2019-01-19 21:26:00 Pepe rial [place] Diastolic (mm Hg) 2019-01-19 21:26:00 Mem orial [place] Temperature Oral (F) 2019-01-19 17:23:00 97.9 F [facility] Philip Heart Rate 2019-01-19 17:23:00 [facility] [place] Respitory Rate 2019-01-19 17:23:00 Memori al [place] Systolic (mm Hg) 2019-01-19 17:23:00 Pepe rial Philip Diastolic (mm Hg) 2019-01-19 17:23:00 Mem orial Philip Temperature Oral (F) 2019-01-19 13:47:00 97.6 F [facility] [place] Heart Rate 2019-01-19 13:47:00 [facility] Philip Respitory Rate 2019-01-19 13:47:00 Memori al Philip Systolic (mm Hg) 2019-01-19 13:47:00 Pepe rial Philip Diastolic (mm Hg) 2019-01-19 13:47:00 Mem orial [place] Height 2019-01-10 12:17:00 170.18 cm [facility] Philip Weight 2019-01-10 03:42:00 [facility] [place] Procedures This patient has no known procedures. Encounters Start End Encounter Admission Attending Care Care Encounter Source Date/Time Date/Time Type Type Clinicians Facility Department ID 2020-08-11 2020-08-11 [id number] 2020-08-09 2020-08-09 Outpatient HARVINDER Toribio [facility] [id number] 15:00:00 23:59:59 Roland Jaycob 2020-08-03 2020-08-03 [facility] [id number] [facility] 2020-07-28 2020-07-28 [facility] [id number] [facility] 2020-07-19 2020-07-19 Outpatient HARVINDER Toribio [facility] [id number] 14:30:00 23:59:59 Roland Jaycob 2020-07-13 2020-07-13 [id number] 2020-07-05 2020-07-05 [facility] [id number] [facility] 2020-06-29 2020-06-29 [facility] [id number] [facility] 2020-06-25 2020-06-25 [facility] [id number] [facility] 2020-06-24 2020-06-24 [facility] [id number] [facility] 00:00:00 00:00:00 [facility] 2019-01-09 2019-01-19 Outpatient EDGAR Ag [facility] [id number] 21:18:46 18:08:00 Barbara 00 Flor 2019-01-10 2019-01-10 Inpatient E FB MED 7500 FB 15:16:00 01:33:00 Results Test Description Test Time Test Comments Results Result Comments Source URINE AND STOOL 2019-01-16 Yellow [facility] 00:22:00 *NA*(01/15/19 [place] 6:22 PM) URINE AND STOOL 2019-01-16 Clear [facility] 00:22:00 (01/15/19 6:22 Philip PM) URINE AND STOOL 2019-01-16 00:22:00 Test Item Value Reference Range Interpretation Comme nts UA Spec Grav (test code = UA Spec Grav) 1.023 1 [facility] [id number] 00:22:00 Test Item Value Reference Range Interpretation Comments UA pH (test code = UA pH) 5.0 1 5.0-8.0 [facility] [id number] 00:22:00Negative (01/15/19 6:22 PM) [facility] [id number] 00:22:00Negative *NA*(01/15/19 6:22 PM)[facility] [id number] 00:22:00Negative *NA*(01/15/19 6:22 PM)[facility] [id number] 00:22:00Negative (01/15/19 6:22 PM)[facility] [id number] 00:22:00Negative (01/15/19 6:22 PM) [facility] [id number] 00:22:00Negative (01/15/19 6:22 PM) [facility] JQOAY0606-11-65 00:22:00None Seen (01/15/19 6:22 PM) [facility] SBYLW0468-61-13 00:22:001[facility] KMSQR2647-12-30 00:22:001[facility] TolacldKPTXIVIJKQ0836-55-78 10:48:000.7 [facility] SccpxphBUZKUDQOTI8229-98-23 10:48:001.7[facility]ann[facility]OLOGY 2019-01-14 10:48:000.3[facility] JagwbfkCMBCJMPDIS3081-36-52 10:48:000.2[facility] SxpqfloUKMJPGPXKT3770-54-73 10:48:000.3[facility]annCHEM HLLME5933-89-56 10:48:002.3[facility]annCHE[facility] OVDRP3734-60-55 10:48:003.0[facility] Philip RFCQBBJMBZUQ8640-84-83 10:48:0010.3[facility] YejphufKYTGMQIBMJMD0495-83-16 10:48:78547Gjxewkhs FyodxjeXEDNQFOSCHSG5176-80-72 10:48:0015[facility] Philip FMAFLKDHJGKS4623-06-53 10:48:000.69[facility] LmhtrpcRODLGRVRDEVY8304-80-38 10:48:84297Skbostep DzadewaAAAUQZINJTLR8587-54-71 10:48:004.3[facility] [place] XZIDDWCCLUKD0953-25-90 10:48:51840Rarifwnq VrkewncHXCVFCLMGIQU4484-29-06 10:48:0026[facility] QeyjtnfMFDQRMSSCZEO7640-10-93 10:48:008.9[facility] Philip HTZZGSNHLLSL8242-18-72 10:48:0087[facility] IxzmwwcRASBRXNRLV1959-59-50 10:48:00 2.6[facility] JnmsgwjCIRECJCYCW8177-83-25 10:48:003.79[facility] 2019-01-14 10:48:0011.1[facility] IreywhfSYNLALYDYT6028-91-95 10:48:0034.9[facility] OjkrkdaABCZUSUCXL3028-41-39 10:48:0092.0[facility] OcaegjlDYRWSKFTFP1174-94-94 10:48:00 Test Item Value Reference Range Interpretation Comments MCH (test code = MCH) 29.3 pg 27.0-31.0 [facility] PeauffzABOTHNQLZQ9576-94-32 10:48:0031.8[facility] 2019-01-14 10:48:0016.5[facility] VmweznnZSCMKYVEIO5714-58-99 10:48:73110Klgehxzm XcfzjciKSOKCLEHAS1441-79-99 10:48:008.3[facility] AdxjeuqNKRIBFOHHO7146-72-30 10:48:0066.8[facility] QrljxjpZZNDJLBUPA8222-76-96 10:48:0012.6[facility] Philip KFROLEHSPC2113-79-24 10:48:008.4[facility] SivkxtxMGKCNSFRAV3600-62-15 10:48:00 11.5[facility] HermannCHEM SSSSM4364-22-68 10:15:002.0[facility]annCHEM PANEL 2019-01-13 10:15:003.6[facility]annCHE[facility] JFBTD2729-10-96 10:15:73808Owxhdftg HermannCHEM HWJIU5059-52-46 10:15:009[facility]annCHEM OPWHM1836-78-08 10:15:000.71[facility]annCHE[facility] NNAFL8066-76-75 10:15:47745Oruqomur HermannCHEM DWNLJ6575-47-63 10:15:004.2[facility]annCHE[facility] OEHQB0621-97-39 10:15:09595 [facility] MGZMN9797-01-81 10:15:0027[facility]annCHEM PANEL 2019-01-13 10:15:0010.2[facility]annCHE[facility] ZOENW2353-48-86 10:15:008.9[facility]annCHEM DJCMA1188-36-53 10:15:0086[facility] XoofuzsMWCVSYOVVQ3131-87-81 10:15:0063.6[facility] RnksotfKNRYQYFLBO6520-52-52 10:15:0019.5[facility] Philip WEGPJLSXIN2669-10-90 10:15:0011.0[facility] KduarbjGBCDCTIXSX9524-72-20 10:15:00 5.2[facility] JlcvzmgQHBOQKKYAS1333-51-23 10:15:000.7[facility]annHEMATOLOGY 2019-01-13 10:15:001.4[facility] YgtnupeCRBVNMEVNC4355-91-20 10:15:000.4[facility] HtvgqtpOZITRZAAGF0090-26-66 10:15:000.2[facility] LfhekvqXWJDPLQPWO8430-78-33 10:15:000.1[facility] HxxhxxjFONHHQZKIE0161-84-70 10:15:002.2[facility] Philip PXUABHQXNA2770-90-43 10:15:003.60[facility] XqrvmvfZDTYREMKKS4092-17-57 10:15:00 10.8[facility] TicxcyzVXJMVYEABP3264-11-12 10:15:0033.4[facility]OLOG[facility] 2019-01-13 10:15:0092.9[facility] MargrdjKUJNSEZBSS2513-90-80 10:15:00 Test Item Value Reference Range Interpretation Comments MCH (test code = MCH) 30.1 pg 27.0-31.0 [facility] RofoszwBZUGCENWNR1848-73-25 10:15:0032.4[facility]OLOG[facility] 2019-01-13 10:15:0017.0[facility] UqxviilBDZGOQINKE8907-46-48 10:15:63499Fweqtxyv QbrzaclRPMIUDXRTD6247-20-64 10:15:008.0[facility]annCHEM NFRRX4794-78-07 10:43:14512Jcbasief HermannCHEM GZLNI9165-60-78 10:43:007[facility]annCHEM SMSRB2272-51-18 10:43:000.69[facility]annCHEM YSDPX2662-83-66 10:43:97257 [facility]annCHE[facility] WNUQB7788-15-71 10:43:004.3[facility] HermannCHEM PANEL 2019-01-12 10:43:94186Gnagukxu HermannCHEM RNFAB4609-44-82 10:43:0026[facility] HermannCHEM QIKUM0718-68-29 10:43:008.5[facility] HermannCHEM GCFVD1108-27-99 10:43:0087[facility] HermannCHEM TEFLX2831-00-20 10:43:0011.3[facility] HermannCHEM GOPKE7739-33-36 10:43:001.9[facility] HermannCHEM DRXBC0622-89-23 10:43:002.8 [facility] FeekzfdKQLUMDHKPG2064-60-70 10:43:003.7[facility]annHEMATOLOGY 2019-01-12 10:43:003.68[facility] AswkchxPKHWBYOFUY6503-48-26 10:43:0011.0[facility] AjocniyVZGVWDDIYK3566-67-90 10:43:0033.9[facility] LpriaobHBHPBZIRWX6525-51-98 10:43:0092.1[facility] OxnzhklBZLYEIZXAI7277-56-26 10:43:00 Test Item Value Reference Range Interpretation Comments MCH (test code = MCH) 30.0 pg 27.0-31.0 Memorial SloodjpUVDJZSPHHQ8292-12-24 10:43:0032.6[facility]annHEMATOLOGY 2019-01-12 10:43:0016.7[facility] EigqdloZXKOCOBHYX3617-20-72 10:43:75210Mapuosms IzcpordUXHEMFSAFW8230-69-08 10:43:008.2[facility] DvtfhhbUDECUFHAQE6292-26-10 10:43:0076.8[facility] NkfejwxSXLSVQMBJQ8787-86-58 10:43:009.9[facility] Philip RMWOQJGIQL3247-46-99 10:43:0011.8[facility] CtjovdiUPCQEMKAGX1428-02-84 10:43:00 1.2[facility] UhzjqgpPWZONSWTZJ8275-06-99 10:43:000.3[facility]annHEMATOLOGY 2019-01-12 10:43:002.8[facility] UpyowfnGIMMOHSYJC3539-15-73 10:43:000.4[facility] YzupqxxZMFEHVTFCY2940-75-39 10:43:000.4[facility]annBACTERIAL - SEROLOGY 2019-01-10 09:33:00Urine *NA*(01/10/19 3:33 AM)[facility]annBACTERIAL - YIUGEWYP2018-12-41 09:33:00Negative (01/10/19 3:33 AM)[facility] TJJAT8925-92-10 09:33:00Yellow *NA*(01/10/19 3:33 AM)[facility] AUUHX5855-88-23 09:33:00Clear (01/10/19 3:33 AM)[facility] STOOL 2019-01-10 09:33:00 Test Item Value Reference Range Interpretation Comments UA Spec Grav (test code = UA Spec 1.014 1 Grav) [facility] [id number] 09:33:00 Test Item Value Reference Range Interpretation Comments UA pH (test code = UA pH) 5.0 1 5.0-8.0 [facility] [id number] 09:33:00Negative (01/10/19 3:33 AM) [facility] [id number] 09:33:00Negative *NA*(01/10/19 3:33 AM)[facility] [id number] 09:33:00Trace *ABN*(01/10/19 3:33 AM)[facility] [id number] 09:33:00Negative *NA*(01/10/19 3:33 AM)[facility] [id number] 09:33:00Negative (01/10/19 3:33 AM)[facility] [id number] 09:33:00Negative (01/10/19 3:33 AM) [facility] [id number] 09:33:00Negative (01/10/19 3:33 AM) [facility] [id number] 09:33:00None Seen (01/10/19 3:33 AM) [facility] [id number] 09:33:00<1[facility] [id number] 09:33:00<1[facility] - [id number] 07:15:00Negative (01/10/19 1:15 AM)[facility] [id number] 07:15:00Negative (11/15/19 1:15 AM)[facility]ARD[facility] [id number] 05:21:000.09[facility]CHE[facility] [id number] 05:21:007.1[facility] [id number] 05:21:003.1[facility]ann[facility] [id number] 05:21:0027 [facility] [id number] 05:21:0027[facility]annCHE[facility] PANEL 2019-01-10 05:21:43701[facility]rhk[facility] HermannCHEM [id number] 05:21:000.5[facility]annCHE[facility] [id number] 05:21:00 Test Item Value Reference Range Interpretation Comments B/C Ratio (test code = B/C Ratio) 17 1 6-25 [facility] [id number] 05:21:004.0[facility] PAN[facility] 2019-01-10 05:21:00 Test Item Value Reference Range Interpretation Comments A/G Ratio (test code = A/G Ratio) 0.8 1 0.7-1.6 [facility] [id number] 05:21:000.9[facility]MATOLOGY 2019-01-10 05:21:00 Test Item Value Reference Range Interpretation Comments INR (test code = INR) 1.08 1 0.85-1.17 [id number] 05:21:00 Test Item Value Reference Range Interpretation Comments PT (test code = PT) 13.8 s 12.0-14.7 [id number] 05:21:00 Test Item Value Reference Range Interpretation Comments PTT (test code = PTT) 23.3 s 22.9-35.8 [facility] [id number] 05:21:000.2[facility]
[2020-08-30 14:24] LABS: Absolute Lymphocytes (CBC) 0.9 K/uL (0.7-4.9); Basophils % 0.7 % (0-1.3); Hematocrit 35.4 % (39.6-49.0); Lymphocytes % 22.3 % (15.3-44.8); MPV 9.1 fL (7.6-11.3); RBC Red Blood Cell Count 3.89 M/uL (4.33-5.43)
[2020-08-30 14:31] LABS: Protime INR 1.64
--- NOTE | 2020-08-30 14:47 | RAD REPORT ---
EXAM DESCRIPTION: RAD - Chest Single View - 08/30/2020 2:40 pm CLINICAL HISTORY: Chest pain;SOB Chest pain. COMPARISON: Chest Single View dated 06/11/2020; Chest Single View dated 03/21/2020; Chest Single View dated 11/30/2019; Chest Single View dated 06/23/2019 FINDINGS: Portable technique limits examination quality. Mild interstitial pulmonary edema. The heart is upper limit normal in size. No displaced fractures. IMPRESSION: Mild CHF.
[2020-08-30 14:53] LABS: Albumin 3.5 g/dL (3.4-5.0); Bilirubin Direct 0.1 mg/dL (0-0.2); Bilirubin Total 0.4 mg/dL (0.2-1.0); Magnesium 2.6 mg/dL (1.8-2.4); Potassium 3.3 mmol/L (3.5-5.1); Protein, Total 7.3 g/dL (6.4-8.2); Troponin (Emerg Dept Use Only) 0.14 ng/mL (0.0-0.045)
--- NOTE | 2020-08-30 15:55 | EDPHYS ---
Physician Documentation [facility] Name: Isiah Gaytan Age: 85 yrs Sex: Male : 1935 Arrival Date: 08/30/2020 Time: 12:54 Bed 5 Private MD: ED Physician Kevin Blackwell HPI: 08/30 14:36 This 85 yrs old Male presents to ER via Ambulatory with complaints of Chest pm1 Pain. 14:36 The patient or guardian reports chest pain that is located primarily in the mid-sternal pm1 area. Onset: 2 week(s) ago. The pain does not radiate. Associated signs and symptoms: Pertinent positives: shortness of breath, Pertinent negatives: abdominal pain, cough, nausea, vomiting. The chest pain is described as a pressure. Duration: The patient or guardian reports multiple episodes, that have now resolved, Patient recalls chest pain with shortness of breath that lasted for three hours last night and this morning for 1 hour. Chest pain and shortness of breath currently resolved. Modifying factors: The symptoms are alleviated by nothing. the symptoms are aggravated by nothing. Severity of pain: in the emergency department the pain has resolved. The patient has not experienced similar symptoms in the past. The patient has not recently seen a physician, the patient's primary care provider is Dr. Wilson, has an appointment scheduled, tomorrow for his hip pain. Historical: - Allergies: 13:20 Azithromycin; jl7 13:20 Codeine; jl7 13:20 Keflex; jl7 - Home Meds: 17:02 carbidopa-levodopa 25-100 mg Oral tab [Active]; Eliquis 5 mg oral tab 1 tab 2 times per kg day [Active]; sotalol 40 mg Oral tab 1 tab 2 times per day [Active]; furosemide 20 mg Oral tab 1 tab 2 times per day [Active]; - PMHx: 13:20 CHF; High Cholesterol; Hypertension; Myocardial infarction; Atrial fibrillation; jl7 - PSHx: 13:20 Cardiac stents; jl7 - Immunization history:: Adult Immunizations up to date, Client reports having NOT received the Covid vaccine. - Social history:: Smoking status: Patient denies any tobacco usage or history of. ROS: 14:36 Constitutional: Negative for fever, chills, and weight loss. pm1 14:36 Abdomen/GI: Negative for abdominal pain, nausea, vomiting, diarrhea, and constipation, Back: Negative for injury and pain, : Negative for injury, bleeding, discharge, and swelling, MS/Extremity: Negative for injury and deformity, Skin: Negative for injury, rash, and discoloration, Neuro: Negative for headache, weakness, numbness, tingling, and seizure. 14:36 Cardiovascular: Positive for chest pain, edema, orthopnea, Negative for palpitations. 14:36 Respiratory: Positive for shortness of breath, Negative for cough, sputum production, wheezing. 14:36 All other systems are negative. Exam: 14:36 Constitutional: This is a well developed, well nourished patient who is awake, alert, pm1 and in no acute distress. Head/Face: Normocephalic, atraumatic. 14:36 Back: No spinal tenderness. No costovertebral tenderness. Full range of motion. Skin: Warm, dry with normal turgor. Normal color with no rashes, no lesions, and no evidence of cellulitis. MS/ Extremity: Pulses equal, no cyanosis. Neurovascular intact. Full, normal range of motion. 14:36 Eyes: Exam is negative for acute changes, Extraocular movements: no acute changes, Conjunctiva: no acute changes, no injection, Sclera: no acute changes, icterus, is not appreciated. 14:36 ENT: Exam is negative for acute changes, Mouth: Lips: normal, Oral mucosa: normal, pink and intact, moist. 14:36 Cardiovascular: Rate: bradycardic, Rhythm: irregular, Pulses: no pulse deficits are appreciated, Edema: 2+ edema to level of left midcalf, left ankle, right midcalf and right ankle. 14:36 Respiratory: the patient does not display signs of respiratory distress, Respirations: normal, Breath sounds: decreased breath sounds, that are mild, are located in both bases. 14:36 Abdomen/GI: Inspection: abdomen appears normal, Palpation: abdomen is soft and non-tender, in all quadrants. 14:36 Neuro: Exam negative for acute changes, Orientation: is normal, Mentation: is normal, Motor: is normal, moves all fours, Sensation: is normal, no obvious gross deficits. Vital Signs: 13:19 BP 128 / 48; Pulse 77; Resp 17; Temp 98.4; Pulse Ox 99% on R/A; Weight 77.11 kg; Height jl7 5 ft. 9 in. (175.26 cm); Pain 2/10; 14:39 BP 110 / 54; Pulse 48; Resp 18; Pulse Ox 96% on R/A; ph 14:45 BP 109 / 53; Pulse 62; Resp 20; Pulse Ox 98% ; kg 15:00 BP 133 / 59; Pulse 55; Resp 20; Pulse Ox 98% ; kg 16:00 BP 155 / 89; Pulse 57; Resp 20; Pulse Ox 99% on R/A; kg 17:00 BP 151 / 74; Pulse 56; Resp 18; Pulse Ox 99% on R/A; kg 17:30 BP 147 / 72; Pulse 54; Resp 20; Pulse Ox 99% on R/A; kg 13:19 Body Mass Index 25.10 (77.11 kg, 175.26 cm) jl7 MDM: 13:56 Patient medically screened. pm1 15:41 Data reviewed: vital signs. Data interpreted: Pulse oximetry: on room air is 98 %. pm1 Interpretation: normal. 15:46 ED course: Patient taking Eliquis. Last dose this AM. pm1 15:53 Physician consultation: Ronn Wilson MD was called at 15:53, was contacted at 15:53, pm1 regarding admission, patient's condition, would like consultation with Cardiology. 08/30 14:01 Order name: Basic Metabolic Panel pm1 08/30 14:01 Order name: CBC with Diff; Complete Time: 14:29 pm1 08/30 14:01 Order name: LFT's; Complete Time: 15:41 pm1 08/30 14:01 Order name: Magnesium; Complete Time: 15:41 pm1 08/30 14:01 Order name: NT PRO-BNP; Complete Time: 15:41 pm1 08/30 14:01 Order name: PT-INR; Complete Time: 15:41 pm1 08/30 14:01 Order name: Troponin (emerg Dept Use Only); Complete Time: 15:41 pm1 08/30 14:01 Order name: XRAY Chest (1 view); Complete Time: 14:49 pm1 08/30 14:01 Order name: EKG; Complete Time: 14:02 pm1 08/30 14:01 Order name: Cardiac monitoring; Complete Time: 16:18 pm1 08/30 14:01 Order name: Basic Metabolic Panel; Complete Time: 15:41 EDMS 08/30 16:13 Order name: COVID-19 : Document "Date of Symptom Onset" if Symptomatic. kg 08/30 18:04 Order name: SARS-COV-2 RT PCR; Complete Time: 18:33 EDMS 08/30 14:01 Order name: EKG - Nurse/Tech; Complete Time: 15:59 pm1 08/30 14:01 Order name: IV Saline Lock; Complete Time: 16:18 pm1 08/30 14:01 Order name: Labs collected and sent; Complete Time: 16:18 pm1 08/30 14:01 Order name: O2 Per Protocol; Complete Time: 15:59 pm1 08/30 14:01 Order name: O2 Sat Monitoring; Complete Time: 15:59 pm1 Administered Medications: 16:48 Drug: Lasix (furosemide) 40 mg Route: IVP; Site: right antecubital; kg 17:45 Follow up: Response: No adverse reaction kg Disposition: 08/31 18:48 Co-signature as Attending Physician, Kevin Blackwell MD I agree with the assessment and manish plan of care. Disposition Summary: 08/30/20 15:54 Hospitalization Ordered Provider: Ronn Wilson pm1 Condition: Stable pm1 Problem: new pm1 Symptoms: have improved pm1 Bed/Room Type: Standard pm1 Hospitalization Status: Observation(08/30/20 15:56) pm1 [facility] pm1 Room Assignment: 229(08/30/20 17:37) bd Diagnosis - Chest pain, unspecified pm1 - Shortness of breath pm1 - Heart failure, unspecified - CHF exacerbation(08/30/20 15:58) pm1 Forms: - Medication Reconciliation Form pm1 - SBAR form pm1 Signatures: Dispatcher [employer] Dayana Garcia Corey, MD MD cha Marinas, Patrick, LAKIA [employer]OUND SALES CONSULTANT pm1 Vicky Simmons RN RN jl7 Nisa Bingham RN RN kg Corrections: (The following items were deleted from the chart) 08/30 15:56 15:54 Inpatient Admission pm1 pm1 15:56 15:54 Intensive Care Unit pm1 pm1 15:56 15:54 pm1 pm1 15:58 15:54 Heart failure, unspecified pm1 pm1 17:06 17:02 Home Meds: metoprolol tartrate 50 mg Oral tab 1 tab 2 times per day; kg kg 17:37 15:56 pm1 bd
--- NOTE | 2020-08-30 15:55 | ER ---
Nurse's Notes [facility] Name: Isiah Gaytan Age: 85 yrs Sex: Male : 1935 Arrival Date: 08/30/2020 Time: 12:54 Bed 5 Private MD: Diagnosis: Heart failure, unspecified-CHF exacerbation;Chest pain, unspecified;Shortness of breath Presentation: 08/30 13:19 Chief complaint: Patient states: Intermittent CP, feels like choking, SOB, x 2 weeks. jl7 Coronavirus screen: Client denies travel out of the [place] in the last 14 days. At this time, the client does not indicate any symptoms associated with coronavirus-19. Ebola Screen: No symptoms or risks identified at this time. Initial Sepsis Screen: Does the patient meet any 2 criteria? No. Patient's initial sepsis screen is negative. Does the patient have a suspected source of infection? No. Patient's initial sepsis screen is negative. Risk Assessment: Do you want to hurt yourself or someone else? Patient reports no desire to harm self or others. Onset of symptoms is unknown. 13:19 Method Of Arrival: Ambulatory jl7 13:19 Acuity: MARIOLA 2 jl7 Historical: - Allergies: 13:20 Azithromycin; jl7 13:20 Codeine; jl7 13:20 Keflex; jl7 - Home Meds: 17:02 carbidopa-levodopa 25-100 mg Oral tab [Active]; Eliquis 5 mg oral tab 1 tab 2 times per kg day [Active]; sotalol 40 mg Oral tab 1 tab 2 times per day [Active]; furosemide 20 mg Oral tab 1 tab 2 times per day [Active]; - PMHx: 13:20 CHF; High Cholesterol; Hypertension; Myocardial infarction; Atrial fibrillation; jl7 - PSHx: 13:20 Cardiac stents; jl7 - Immunization history:: Adult Immunizations up to date, Client reports having NOT received the Covid vaccine. - Social history:: Smoking status: Patient denies any tobacco usage or history of. Screenin:12 Abuse screen: Denies threats or abuse. Denies injuries from another. Nutritional kg screening: No deficits noted. Tuberculosis screening: No symptoms or risk factors identified. Fall Risk No fall in past 12 months (0 pts). No secondary diagnosis (0 pts). IV access (20 points). Ambulatory Aid- Crutches/Cane/Walker (15 pts). Gait- Impaired (20 pts.). Mental Status- Oriented to own ability (0 pts). Total Griffin Fall Scale indicates No Risk (0-24 pts). Assessment: 14:00 Also complains of no other symptoms. Tenecteplase (TNKase) screening:. General: Appears kg in no apparent distress. Behavior is calm, cooperative, appropriate for age. General: Appears Behavior is quiet. Pain: Complains of pain in chest Pain does not radiate. Pain currently is 1 out of 10 on a pain scale. Quality of pain is described as Pressure. Neuro: No deficits noted. Cardiovascular: Heart tones S1 S2 Capillary refill < 3 seconds +3 BLE. Pulses are 2+ in right dorsalis pedis artery and left dorsalis pedis artery are 3+ in right radial artery and left radial artery Rhythm is regular. Respiratory: Airway is patent Trachea midline Respiratory effort is even, unlabored, relaxed, Respiratory pattern is regular, Breath sounds with crackles bilaterally. in left posterior lower lobe, right posterior middle lobe and right posterior lower lobe. GI: No deficits noted. : No deficits noted. EENT: No deficits noted. Derm: No deficits noted. Musculoskeletal: No deficits noted. 18:42 Pain: Pain began. kg Vital Signs: 13:19 BP 128 / 48; Pulse 77; Resp 17; Temp 98.4; Pulse Ox 99% on R/A; Weight 77.11 kg; Height jl7 5 ft. 9 in. (175.26 cm); Pain 2/10; 14:39 BP 110 / 54; Pulse 48; Resp 18; Pulse Ox 96% on R/A; ph 14:45 BP 109 / 53; Pulse 62; Resp 20; Pulse Ox 98% ; kg 15:00 BP 133 / 59; Pulse 55; Resp 20; Pulse Ox 98% ; kg 16:00 BP 155 / 89; Pulse 57; Resp 20; Pulse Ox 99% on R/A; kg 17:00 BP 151 / 74; Pulse 56; Resp 18; Pulse Ox 99% on R/A; kg 17:30 BP 147 / 72; Pulse 54; Resp 20; Pulse Ox 99% on R/A; kg 13:19 Body Mass Index 25.10 (77.11 kg, 175.26 cm) jl7 ED Course: 12:54 Patient arrived in ED. as 13:20 Triage completed. jl7 13:20 Arm band placed on right wrist. jl7 13:55 Junior Underwood NP is PHCP. pm1 13:55 Kevin Blackwell MD is Attending Physician. pm1 13:56 Nisa Bingham, RN is Primary Nurse. kg 14:00 Inserted saline lock: 20 gauge in right antecubital area, using aseptic technique. kg 14:40 XRAY Chest (1 view) In Process Unspecified. EDMS 15:12 Patient has correct armband on for positive identification. Bed in low position. Call kg light in reach. Side rails up X2. Adult w/ patient. monitoring coordinator on. Pulse ox on. NIBP on. 15:12 Patient maintains SpO2 saturation greater than 95% on room air. kg 15:53 Ronn Wilson MD is Hospitalizing Provider. pm1 16:18 Basic Metabolic Panel Sent. mt 18:42 No provider procedures requiring assistance completed. Converted IV to saline lock on kg right antecubital area. Administered Medications: 16:48 Drug: Lasix (furosemide) 40 mg Route: IVP; Site: right antecubital; kg 17:45 Follow up: Response: No adverse reaction kg Output: 16:56 Urine: 350ml (Voided); Total: 350ml. kg 17:40 Urine: 800ml (Voided); Total: 1150ml. kg Outcome: 15:54 Decision to Hospitalize by Provider. pm1 18:42 Admitted to Med/surg accompanied by tech, via wheelchair. kg 18:43 Admitted to Med/surg room 229, Report called to Barbara PACE kg 18:43 Condition: stable 18:43 Instructed on the need for admit. 19:24 Patient left the ED. ea Signatures: Dispatcher [employer] EDMS Dot Morrow Patricia, RN RN Junior Underwood NP CENTER PUNCH OPERATOR pm1 Vicky Simmons RN RN jl7 Desirae Higginbotham mt, Elena, RN RN ea Graham, Kristen, KATELYNN PACE kg Corrections: (The following items were deleted from the chart) 17:06 17:02 Home Meds: metoprolol tartrate 50 mg Oral tab 1 tab 2 times per day; kg kg
[2020-08-30] MEDS ORDERED: FUROSEMIDE 40 MG/4 ML VIAL ONE (17:05)
[2020-08-30] MEDS ORDERED: ALBUTEROL 2.5 MG/3 ML NEB SOL NEB PRN (19:10)
[2020-08-30] MEDS ORDERED: ONDANSETRON 4 MG/2 ML VIAL IV PRN (19:10)
[2020-08-30] MEDS ORDERED: IPRATROPIUM BROM 0.5MG/2.5ML NEB PRN (19:10)
[2020-08-30] MEDS: SOTALOL HCL 80 MG TAB PO SCH (20:35)
[2020-08-30] MEDS: FUROSEMIDE 20 MG/ 2ML VIAL IV SCH (20:36)
[2020-08-30] MEDS: APIXABAN 5 MG TABLET PO SCH (20:36)
[2020-08-30 22:00] VITALS: BMI 24.8
[2020-08-31] MEDS: MORPHINE 4 MG/ML SYR IV PRN (00:58)
[2020-08-31 06:16] LABS: Basophils % 1.1 % (0-1.3); Lymphocytes % 26.4 % (15.3-44.8); MPV 8.5 fL (7.6-11.3); RBC Red Blood Cell Count 3.64 M/uL (4.33-5.43)
[2020-08-31 06:28] LABS: Potassium 3.3 mmol/L (3.5-5.1)
[2020-08-31] MEDS: SOTALOL HCL 80 MG TAB PO SCH ×2 (06:34→19:39)
[2020-08-31] MEDS: APIXABAN 5 MG TABLET PO SCH ×2 (09:46→21:53)
[2020-08-31] MEDS: FUROSEMIDE 20 MG/ 2ML VIAL IV SCH (09:46)
[2020-08-31] MEDS ORDERED: FUROSEMIDE 20 MG/ 2ML VIAL IV ONE (11:00)
[2020-08-31] MEDS ORDERED: POTASSIUM 25 MEQ EFFERV TAB PO ONE (11:06)
--- NOTE | 2020-08-31 11:07 | PN ---
Date of Progress Note: 08/31/2020 The patient states he is still short of breath, although talking to him when he states this, he seems comfortable and his oxygen concentration is well within normal limits. Possibility of being a combi nation of anxiety and mild CHF as a possibility. He also states, he has consistent drainage, some fa cial discomfort and ears pop, feels a lot of discomfort. It is in the upper part of his chest in pha ryngeal area, so I will repeat the chest x-ray having increased his Lasix to 40 mg b.i.d. from the 20 that he has been getting and x-ray of sinus at the same time. Awaiting cardiology evaluation as shelley howard HR/MODL Voice ID: [id number] Report ID: [id number]
[2020-08-31] MEDS ORDERED: POTASSIUM CL SA 10 MEQ TAB PO ONE (12:00)
--- NOTE | 2020-08-31 12:02 | RAD REPORT ---
EXAM DESCRIPTION: Sinus radiographs CLINICAL HISTORY: Facial pain, congestion COMPARISON: None FINDINGS: No air-fluid levels are identified. The paranasal sinuses are well aerated. The nasal sept um is midline. Surgical clips within the soft tissues of the right scalp. IMPRESSION: No paranasal sinus thickening or air-fluid levels to suggest acute sinusitis.
--- NOTE | 2020-08-31 16:12 | EKG ---
Test Date: 2020-08-30 Test Time: 14:12:39 Outsoles Channel Opener: TARA MEASUREMENT RESULTS: Intervals: Rate: 55 GA: QRSD: 74 QT: 460 QTc: 440 Walsh: P: GA: QRS: 66 T: 175 INTERPRETIVE STATEMENTS: Undetermined rhythm ST & T wave abnormality, consider inferolateral ischemia Abnormal ECG Compared to ECG 08/30/2020 13:39:43 Junctional rhythm no longer present Ventricular premature complex(es) no longer present Myocardial infarct finding no longer present ST (T wave) deviation still present Possible ischemia still present Electronically Signed On 08-31-20 16:08:46 CDT by Pollo Navarro
--- NOTE | 2020-08-31 16:13 | EKG ---
Test Date: 2020-08-30 Test Time: 13:39:43 Global Climate Change Researcher: BISHOP MEASUREMENT RESULTS: Intervals: Rate: 53 KS: QRSD: 78 QT: 468 QTc: 439 [place]: P: KS: QRS: 83 T: 194 INTERPRETIVE STATEMENTS: Junctional rhythm with frequent premature ventricular complexes in a pattern of bigeminy Cannot rule out Anterior infarct, age undetermined ST & T wave abnormality, consider inferolateral ischemia Abnormal ECG Compared to ECG 06/12/2020 13:34:51 Junctional rhythm now present Ventricular premature complex(es) now present Atrial fibrillation no longer present Myocardial infarct finding still present ST (T wave) deviation still present Possible ischemia still present Electronically Signed On 08-31-20 16:08:49 CDT by Pollo Navarro
--- NOTE | 2020-08-31 16:38 | RAD REPORT ---
EXAM DESCRIPTION: RAD - Chest Pa And Lat (2 Views) - 08/31/2020 4:23 pm CLINICAL HISTORY: f/u chf, shortness of breath COMPARISON: Portable August 30 TECHNIQUE: Frontal and lateral views of the chest were obtained. FINDINGS: The lungs are clear of a focal mass or consolidation. Interstitial markings are mildly pro minent, similar or less prominent than comparison. Heart size is normal and central vasculature is within normal limits. No pleural effusion or pneumothorax seen. No acute bony finding noted. No ao rtic abnormality. IMPRESSION: No new or progressive cardiopulmonary finding. No significant CHF suspected on today's s tudy.
[2020-08-31] MEDS: FUROSEMIDE 40 MG/4 ML VIAL IV SCH (21:53)
[2020-09-01 05:02] LABS: Magnesium 2.3 mg/dL (1.8-2.4); Potassium 3.7 mmol/L (3.5-5.1)
[2020-09-01] MEDS: MORPHINE 4 MG/ML SYR IV PRN (05:04)
[2020-09-01] MEDS ORDERED: POTASSIUM CL SA 10 MEQ TAB PO ONE ×2 (05:39→09:00)
[2020-09-01] MEDS: SOTALOL HCL 80 MG TAB PO SCH (05:49)
[2020-09-01] MEDS: APIXABAN 5 MG TABLET PO SCH (08:55)
[2020-09-01] MEDS: FUROSEMIDE 40 MG/4 ML VIAL IV SCH (08:56)
[2020-09-01 12:04] LABS: Absolute Lymphocytes (CBC) 1.3 K/uL (0.7-4.9); Basophils % 0.7 % (0-1.3); Hematocrit 44.4 % (39.6-49.0); Lymphocytes % 36.2 % (15.3-44.8); MPV 9.8 fL (7.6-11.3); RBC Red Blood Cell Count 4.87 M/uL (4.33-5.43)
[2020-09-01 14:35] VITALS: O2SAT 94
[2020-09-01 16:44] VITALS: BP 108/50; TEMP 97.6
--- NOTE | 2020-09-01 17:01 | PN ---
Date of Progress Note: 09/01/2020 The patient states he feels pretty good today. His conclusion and I think it is significant that he feels that way at this time as this is secondary to nerves and stress, so he was therefore discharged on Ativan to take and when he gets episodes of either hyperventilation or minimal hypoxia. In any e vent, his cardiac status and pulmonary status, sinus x-ray were all normal, so he will be discharged on his usual medication with the addition of the Ativan. HR/MODL Voice ID: [id number] Report ID: [id number]
--- NOTE | 2020-09-02 04:20 | PN ---
Date of Progress Note: 09/01/2020 Mr. Gaytan was admitted on 08/30/2020 with acute on chronic diastolic congestive heart failure, ches t pain, abnormal troponin and BNP secondary to CHF. Recent echo showed normal ejection fraction with diastolic dysfunction and aortic sclerosis. Recent catheterization 3 months ago showed patent coron [place] arteries with a patent stent in the LAD. No significant stenosis. On 09/01/2020, blood pressure of 108/50, bradycardic at 53. He is on sotalol for atrial fibrillation. Eliquis. We continued his home regimen. I had increased the Lasix as needed. Watch his salt intake, watch his fluid intake. When comfortable Mr. Gaytan going home. I have no plan to repeat any cardiac workup at this point. I will see him in the office soon. PEDRO/JAYLEEN Voice ID: [id number] Report ID: [id number]
--- NOTE | 2020-09-08 08:50 | CON ---
Date of Consultation: 08/31/2020 The patient admitted on 08/30/[address] Wilson's service. I saw the patient on 08/31/2020. Reason For Consultation: Shortness of breath and chest pain. History Of Present Illness: Mr. Gaytan is an 85-year-old white male with history of coronary artery disease status post multiple catheterizations and stent, has a history of atrial fibrillation, hyper tension, dyslipidemia, as well as congestive heart failure. He came in with chest pain that has been going on intermittently for about 2 weeks. Also, has been having some shortness of breath. Denies nausea, vomiting, diaphoresis, PND, orthopnea, pedal edema, palpitations, or syncope. Denied any fev er or chills or cough. His review of systems is positive for hip pain for which he is following with Dr. Wilson. Review of Systems: Negative. Allergies: HE IS ALLERGIC TO AZITHROMYCIN, CODEINE, AND KEFLEX. Medications: At home include Sinemet, Eliquis, sotalol, furosemide. Social History: Negative. Family History: Negative. Physical Examination: Vital Signs: Stable. He was afebrile. HEENT: Negative. Neck: Supple without any bruit, lymphadenopathy, JVD, or thyromegaly. Chest: Clear to auscultation and percussion. Cardiac: Revealed a regular rhythm and rate. No murmurs, gallops, or rubs. Abdomen: Benign. Extremities: Revealed no clubbing, cyanosis, or edema. Diagnostic Data: Showed a potassium of 3.3. His BNP is 10,771. Troponin is 0.14. Chest x-ray show ed mild congestive heart failure. EKG showed PVCs and with junctional rhythm, which is ch ronic for him. Lab data: Echocardiogram showed an ejection fraction of 53% with aortic sclerosis, but no stenosis. Last catheterization was in May 2020, showing mild coronary artery disease with patent LAD stent. Impression And Plan: 1.Shortness of breath secondary to acute on chronic diastolic congestive heart failure, normal eject ion fraction and fairly unremarkable catheterization in May 2020. No need to repeat any cardiac wo rkup. The patient is on sotalol and aspirin, he should be on Plavix as well. He is on Eliquis for a trial fibrillation. He is not in atrial fibrillation now. 2.Mr. Gaytan presents kind of a challenge because when we treated him aggressively he ends up with syncope and dizziness, so we will just continue his medical regimen. I have increased his Lasix on a n as-needed basis. His troponin elevation and BNP elevation are secondary to congestive heart failur e and chronic coronary artery disease, so they did not plan to repeat a catheterization since we just did one in May 2020. EKG is not showing any acute changes. We will observe him overnight. PEDRO/JACKELYNL Voice ID: [id number] Report ID: [id number]
== END 2020-09-01 16:34 | disposition home health service (06) | DRG 293 ==
LOC: ER 12:51 → ERHOLD 16:14 → 2ND 18:21 → OBSVTOIN 09-01 12:46
PROVIDERS: ADMIT Family Medicine; ATTEND Family Medicine
DX: I11.0 Hypertensive heart disease with heart failure (principal); I50.33 Acute on chronic diastolic (congestive) heart failure; I25.10 Atherosclerotic heart disease of native coronary artery without angina pectoris; I48.91 Unspecified atrial fibrillation; E78.5 Hyperlipidemia, unspecified; R45.0 Nervousness; F43.9 Reaction to severe stress, unspecified; Z95.5 Presence of coronary angioplasty implant and graft; Z20.822 Contact with and (suspected) exposure to COVID-19
CPT/HCPCS: 36415; 70220; 71045; 71046; 80048; 80076; 83735; 83880; 84132; 84484; 85025; 85610; 93005; 96374; 99285; G0378; J1940; U0003

== ENCOUNTER 2020-09-25 21:44 | Emergency (ER) | payer OTHER ==
--- OUTSIDE RECORDS SUMMARY | 2020-09-25 21:48 | XMS REPORT | Continuity of Care Document ---
:1935 Author Organization [facility] t Address [address] [place] [address] Dr. [address] [place] [address] Care Team Providers Name Role Phone Komal LOCKETT, N Primary Care Physician Luciano LOCKETT, A Attending Clinician Pob, Lab Main Attending Clinician Unavailable Only, Test Attending Clinician Unavailable Doctor Unassigned, Name Attending Clinician Unavailable Jaycob Toribio Attending Clinician Dora LOCKETT Attending Clinician Flor Ag Attending Clinician Luciano LOCKETT, A Admitting Clinician Nithya Admitting Clinician Payers Payer Name Policy Type Policy Effective Date Expiration Date Sour ce Number AETNA MEDICAREAETNA [id number] 2013 MD Shahla ga MEDICARE 00:00:00 [id number] -PresentMedicare Problems Condition Condition Condition Status Onset Resolution Last Treating Co mments Source Name Details Category Date Date Treatment Clinician Date FEVER Diagnosis Active 2018-022019-01-27 Mem oria 1-14 22:24:00 l FEVER 00:00: [place] 00 Active 01/09/2019 [place] Unexplaine Unexplaine Disease Active 2018-02 Last M D d falls d falls 0-22 Assessmen Willis so 00:00: t & Plan: n 00 Formattin g of this note might be different from the original. It is possible that Mr. Rhodes experienc [...] might be different from the original. Mr. Rhodes showed significa nt cognitive impairmen t [...] Added automatic ally from request for surgery [id number] Encounter Encounter Disease Active Overview: MD monge other for other 24 Formattin A nderso preprocedu preprocedu 00:00: g [...] 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 [id number] Carotid Duplex: <50% plaque within right ICA, normal left ICA, antegrade flow within bilateral vertebral arteriesO [place] [facility] 05/09/17: LAD prox patent stent X 2, mid 95% successfu l PCI to LADEchoca rdiogram: 05/08/17: normal LVH, 60-65%, LVH, aortic valve sclerosis , mild pHTNStres s test 07/09/18: adenosine nuclear stress: mildly abnormal myocardia l perfusion (low risk scan based on my discussio n with his home cardiolog ist) per Cardiolog y note 10/02/18 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 00 Atrial Problem Active 2020-09-09 Memor ia fibrillati 00:53:30 l on Atrial Philip (disorder) fibrillati on (disorder) [facility] Active 2020-09-09 Memor ia tunnel 00:53:30 l syndrome Carpal Clifford n (disorder) tunnel syndrome (disorder) Active Problem 09/09/2020 [facility] Paresthesi Problem Active 2020-09-09 M emoria a 00:53:30 l (finding) [place] Paresthesi a (finding) Active Problem 09/09/2020 [facility] Parkinson' Problem Active 2020-09-09 M emoria s disease 00:53:30 l (disorder) Clifford n Parkinson' s disease (disorder) Active Problem 09/09/2020 [facility] Tremor Problem Active 2020-09-09 Memor ia (finding) 00:53:30 l Tremor [place] (finding) Active Problem 09/09/2020 [facility] Hallucinos Hallucinos Disease Active M D is is Adam romero History of Past Illness Condition Condition Condition Status Onset Resolution Last Treating Co mments Source Name Details Category Date Date Treatment Clinician Date Chills Problem 2018-022019-01-21 2019-01-21 M emoria (without 1-14 22:44:12 22:44:12 l fever) Chills 18:00: [place] (without 00 fever) 01/09/2019 01/21/2019 [place] Allergies, Adverse Reactions, Alerts Allergy Allergy Status Severity Reaction(s) Onset Inactive Treating Comm ents Source Name Type Date Date Clinician codeine codeine Active Memoria l [place] Cipro Cipro Active Memoria l [place] Keflex Keflex Active Memoria l Philip Family History Family Member Diagnosis Comments Start Date Stop Date Source Family member VTE MD Blackwell Family member Bleeding Disorder MD Sumeet grant Family member Coronary artery And lara disease Family member Stroke MD Blackwell Maternal grandmother Diabetes MD Sumeet grant Natural mother -Colon cancer MD Arya mitchell Natural mother Hypertension MD Pedro son Social History Social Habit Start Date Stop Date Quantity Comments Source History of tobacco Current smoker MD Blackwell use Social History 2020-08-09 2020-08-09 [facility] 20:37:37 20:37:37 Cigarettes smoked 2018-12-17 2018-12-17 MD Arya mitchell current (pack per 00:00:00 00:00:00 day) - Reported Cigarette 2018-12-17 2018-12-17 MD Blackwell pack-years 00:00:00 00:00:00 Tobacco use and 2018-12-17 2018-12-17 Former user MD Pedro son exposure 00:00:00 00:00:00 Alcohol intake 2018-12-17 2018-12-17 Ex-drinker MD Adam romero 00:00:00 00:00:00 (finding) Sex Ass[birth year] At [birth year] Taras Rob on 00:00:00 00:00:00 Smoking Status Start Date Stop Date Source Former smoker 2018-12-17 00:00:00 2018-12-17 00:00:00 MD Willis campos Medications Ordered Filled Start Stop Current Ordering Indication Dosage Frequency Signature Comments Components Source Medication Medication Date Date Medication? Clinician (SIG) Name Name apixaban 5 Yes TAKE 1 Memor ia MG Oral 7-12 TABLET BY l Tablet 20:03: MOUTH Philip [Eliquis] 00 TWICE A DAY LORazepam Yes 0 Memoria 0.5 mg oral 7-12 Refill(s) l tablet 20:03: [place] 00 Carbidopa Yes 1 tab, PO, Me moria 25 MG / 7-12 TID, # 90 l Levodopa 20:03: tab, 3 [place] 100 MG Oral 00 Refill(s), Tablet Pharmacy: [[facility] 25[facility] #[id number], 175.26, cm, 07/19/20 14:31:00 CDT, Height, 75.909, kg, 07/19/20 14:31:00 CDT, Weight Carbidopa Yes 1 tab, PO, Me moria 25 MG / 6-14 BID, # 60 l Levodopa 21:52: tab, 3 Philip 100 MG Oral 00 Refill(s), Tablet Pharmacy: [[facility] #[id number], 175.26, cm, 07/19/20 14:31:00 CDT, Height, 75.909, kg, 07/19/20 14:31:00 CDT, Weight Sotalol Yes 80 mg = 1 Memor ia 5-24 tab, PO, l 20:02: BID, # 60 Philip 00 tab, 0 Refill(s) Lasix Yes 80 mg, PO, Memori a 5-24 BID, 0 l 20:01: Refill(s) meloxicam Yes 15 mg, PO, Me moria 5-24 Daily, 0 l 20:00: Refill(s) Fleet 2018-02 No Notes: Memoria Mineral Oil 1-24 (Same l Enema 19:58: as:Fleet Mineral Oil Enema) naproxen 2018-02 Yes 500 mg = 1 Mem oria 500 mg oral 1-24 tab, PO, l tablet 15:04: BID, X 7 [place] 00 day, # 14 tab, 0 Refill(s), Pharmacy: [facility] #[id number] bisacodyl 2018-02 Yes 10 mg = 1 Mem oria 10 mg 1-24 supp, DC, l rectal 15:04: Daily, PRN Lilly nn suppository 00 Constipati on, # 10 supp, 0 Refill(s), Pharmacy: [facility] #[id number] Docusate 2018-02 Yes 100 mg = 1 Mem oria Sodium 100 1-24 cap, PO, l MG Oral 15:04: BID, # 60 Lilly nn Capsule 00 cap, 0 [Colace] Refill(s), Pharmacy: [facility] #[id number] bisacodyl 5 2018-02 Yes 10 mg = 2 M emoria mg oral 1-24 tab, PO, l enteric 15:04: Daily, PRN Herm ayush coated 00 Constipati tablet on, X 10 day, # 20 tab, 0 Refill(s), Pharmacy: [facility] #[id number] POLYETHYLEN 2018-02 Yes 17 gm, PO, Memoria E GLYCOL 1-24 Daily, PRN l 3350 142 15:04: Constipati Her pinon MG/ML Oral 00 on, # 255 Solution gm, 0 [Miralax] Refill(s), Pharmacy: [facility] #[id number] Lactulose 2018-02 No Notes: Memori a 667 MG/ML 03-21 (Same l Oral 01:11: as:Chronul [place] Solution 00 ac) Lactulose 2018-02 No Notes: Memori a 667 MG/ML 23 (Same l Oral 14:13: as:Chronul [place] Solution 00 ac) Dulcolax 2018-02 No Notes: Memoria Laxative 03-20 (Same As: l 12:41: Dulcolax, Philip 00 Bisco-Lax) Melatonin 3 2018-02 No Notes: Pepe micki MG Extended 03-20 (Same as: l Release 07:13: Melatonin) Herm ayush Tablet 00 Alprazolam 2018-02 No Notes: Memor ia 0.25 MG 03-19 With food l Oral Tablet 11:18: or milk Her pinon [Xanax] 00 (Same as: Xanax) Alprazolam 2018-02 No Notes: Memor ia 0.25 MG -21 With food l Oral Tablet 21:25: or milk Her pinon [Xanax] 00 (Same as: Xanax) pantoprazol 2018-02 No Notes: Pepe micki e -21 Tablet l 19:15: should not [place] 00 be chewed or crushed. (Same as: Protonix) Phenergan 2018-02 No Notes: Memori a 1-20 (Same as: l 00:41: Phenergan) [place] Phenergan 2018-02 No 25 mg, Memori a 1-20 Route: IM, l 00:40: Q6H, Dosing Weight 74.2, kg, PRN Nausea & Vomiting, Start date: 01/14/19 18:40:00 GUEST SERVICES ASSISTANT, Duration: 30 day, Stop date: 02/13/19 18:39:00 GUEST SERVICES ASSISTANT Dulcolax 2018-02 No Notes: Memoria Laxative -19 (Same As: l 16:12: Dulcolax, Bisco-Lax) Levaquin 2018-02 No Notes: Do Pepe micki -19 not give l 12:00: w/antacids , dairy pdt & minerals Take 1 hr before or 2 hr after dairy products metoprolol 2018-02 No Notes: Memor ia extended -18 (Same as: l release 20:49: Toprol XL) Herm May split tab, but do not crush. Albuterol 2018-02 No Notes: Memori a 0.833 MG/ML -18 (Same as: l / 20:49: Duoneb) Ipratropium 00 [place] 0.167 MG/ML Inhalant Solution Docusate 2018-02 No 100 mg = 1 Mem oria Sodium 100 1-18 cap, PO, l MG Oral 16:51: BID, 0 [place] Capsule 00 Refill(s) Famotidine 2018-02 Yes 20 mg = 1 Me moria 20 MG Oral 1-18 tab, PO, l Tablet 16:51: BID, 0 Philip 00 Refill(s) naproxen 2018-02 No 500 mg = 2 Mem oria 250 mg oral 1-18 tab, PO, l tablet 16:51: BID, 0 [place] 00 Refill(s) Dulcolax 2018-02 No Notes: Memoria Laxative 1-18 (Same As: l 15:00: Dulcolax, [place] 00 Correctol) (Do Not Crush) "Do Not Crush" Miralax 2018-02 No Notes: Memoria 1-18 Dissolve l 15:00: in 8 oz of water or juice. (Same as: Miralax) Naproxen 2018-02 No Notes: Memoria 1-17 (Same as: l 16:38: Naprosyn) Take with food. Famotidine 2018-02 No Notes: Memor ia 20 MG Oral 1-16 (Same as: l Tablet 23:00: Pepcid) Levofloxaci 2018-02 No Notes: Pepe micki n 1-16 (Same l 07:00: as:Levaqui n) Docusate 2018-02 No Notes: Memoria Sodium 100 1-15 (Same as: l MG Oral 23:00: Colace) [place] Capsule 00 (Do Not Crush) Acetaminoph 2018-02 No Notes: Do M emoria en 325 MG / 1-15 not exceed l Hydrocodone 19:50: 4gm/day of [place] Bitartrate 00 acetaminop 10 MG Oral hen. Tablet (Same as: [Odebolt O[place] 10/325] 325/10) clopidogrel 2018-02 No Notes: Pepe micki 1-15 (Same As: l 15:02: Plavix) [place] Flomax 2018-02 No Notes: Memoria 1-15 (Same As: l 15:02: Flomax) Philip "Do Not Crush" Morphine 2018-02 No 2 mg, 1 Memori a 1-15 mL, Route: l 11:04: IVP, Drug form: SOLN, Q4H, Dosing Weight 74.2, kg, PRN Pain Score 7-10, Start date: 01/10/19 5:04:00 GUEST SERVICES ASSISTANT, Duration: 30 day, Stop date: 02/09/19 5:03:00 GUEST SERVICES ASSISTANT, 0 Streptococc 2018-02 No Notes: Pepe micki us 1-15 Shake well l pneumoniae 09:35: prior to Her pinon serotype 1 51 use (Same capsular as: antigen Prevnar diphtheria 13) [id number] protein conjugate vaccine / Streptococc us pneumoniae serotype 14 capsular antigen diphtheria [id number] protein conjugate vaccine / Streptococc us pneumoniae serotype 18C capsular antigen d metoprolol 2018-02 Yes 50 mg = 1 Me moria 50 mg oral 1-15 tab, PO, l tablet, 09:19: Daily, # Clifford n extended 00 30 tab, 0 release Refill(s) clopidogrel 2018-02 Yes 75 mg = 1 M emoria 75 mg oral 1-15 tab, PO, l tablet 09:19: Daily, # [place] 00 30 tab, 0 Refill(s) atorvastati 2018-02 Yes 80 mg, PO, Memoria n 1-15 Daily, 0 l 09:19: Refill(s) [place] 00 Tamsulosin 2018-02 Yes 0.4 mg = 1 M emoria hydrochlori 1-15 cap, PO, l de 0.4 MG 09:19: Daily, # Herm ayush Oral 00 30 cap, 0 Capsule Refill(s) [Flomax] Albuterol 2018-02 No Notes: Memori a 0.833 MG/ML -15 (Same as: l / 09:00: Duoneb) [place] Ipratropium 00 [place] 0.167 MG/ML Inhalant Solution Ondansetron 2018-02 No [...] Total Volume: 1,000, Start date: 01/10/19 2:33:00 GUEST SERVICES ASSISTANT, Duration: 1 doses or times, Stop date: 01/10/19 19:14:00 GUEST SERVICES ASSISTANT, 1.91, m2, 0 Morphine 2018-02 No Notes: Memoria 1-15 (Same l 07:20: as:MORPhin [place] 00 e Sulfate) Zofran 2018-02 No Notes: [...] Saline 2018-02 No Notes: Memoria Flush 0.9% 1-15 (Same as: l 04:20: BD Philip 00 Posiflush) Sodium 2018-02 No 1,000 mL, Memori a Chloride -15 2,000 l 0.9% 04:20: ml/hr, Philip (Bolus) IV 00 Infuse Over: 0.5 hr, Route: IV, 1,000, Drug form: INJ, ONCE, Priority: STAT, Dosing Weight 74.2 kg, Start date: 01/09/19 22:20:00 GUEST SERVICES ASSISTANT, Stop date: 01/09/19 22:20:00 GUEST SERVICES ASSISTANT, 0 metoprolol 2018-02 Yes 50mg Take 50 [...] daily. n 1.1 % 00 of scalp Elliott dental teeth with cream cream and spit [...] Observation Value Comments Source Systolic (mm Hg) 2020-09-06 19:00:00 Pepe rial [place] Diastolic (mm Hg) 2020-09-06 19:00:00 Mem orial Hpilip Heart Rate 2020-09-06 19:00:00 [facility] [place] Respitory Rate 2020-09-06 19:00:00 Memori al Philip Systolic (mm Hg) 2020-08-09 20:36:00 Pepe rial [place] Diastolic (mm Hg) 2020-08-09 20:36:00 Mem orial Philip Heart Rate 2020-08-09 20:36:00 [facility] [place] Respitory Rate 2020-08-09 20:36:00 Memori al Philip Systolic (mm Hg) 2020-07-19 19:31:00 Pepe rial [place] Diastolic (mm Hg) 2020-07-19 19:31:00 Mem orial Philip Heart Rate 2020-07-19 19:31:00 Memorial Philpi Respitory Rate 2020-07-19 19:31:00 Memori al [place] Height 2020-07-19 19:31:00 175.26 cm [facility] Philip Weight 2020-07-19 19:31:00 [facility] BMI Calculated 2020-07-19 19:31:00 Memori al [place] Temperature Oral (F) 2019-01-19 21:26:00 97.6 F [facility] Philip Heart Rate 2019-01-19 21:26:00 [facility] [place] Respitory Rate 2019-01-19 21:26:00 Memori al Philip Systolic (mm Hg) 2019-01-19 21:26:00 Pepe rial Philip Diastolic (mm Hg) 2019-01-19 21:26:00 Mem orial Philip Temperature Oral (F) 2019-01-19 17:23:00 97.9 F Memorial [place] Heart Rate 2019-01-19 17:23:00 [facility] Philip Respitory Rate 2019-01-19 17:23:00 Memori al Philip Systolic (mm Hg) 2019-01-19 17:23:00 Pepe rial [place] Diastolic (mm Hg) 2019-01-19 17:23:00 Mem orial [place] Temperature Oral (F) 2019-01-19 13:47:00 97.6 F [facility] [place] Heart Rate 2019-01-19 13:47:00 [facility] [place] Respitory Rate 2019-01-19 13:47:00 Memori al [place] Systolic (mm Hg) 2019-01-19 13:47:00 Pepe rial [place] Diastolic (mm Hg) 2019-01-19 13:47:00 Mem orial [place] Height 2019-01-10 12:17:00 170.18 cm [facility] [place] Weight 2019-01-10 03:42:00 [facility] [place] Procedures This patient has no known procedures. Encounters Start End Encounter Admission Attending Care Care Encounter Source Date/Time Date/Time Type Type Clinicians Facility Department ID 2020-09-24 2020-09-24 Outpatient [facility] [id number] [facility] St 00:00:00 00:00:00 [facility] 2020-09-15 2020-09-15 Surgery [facility] [id number] 14:11:00 14:51:00 [place] [id number] [place] 4.2.7.2.686 Surgical [id number] [place] 020 2020-09-15 2020-09-15 Hospital [facility] [id number] 12:25:00 14:50:00 Encounter Robin Langford [id number] [place] [id number] Surgical [id number] [place] 071 2020-09-13 2020-09-13 Director Product Safety Maria De Jesus, [facility] [id number] 14:29:04 14:44:04 Visit Lab Main Primitivo [id number] [place] 4.2.7.2.686 Professio [id number] [address] 2020-09-13 2020-09-13 Laboratory Only, [facility] [id number] 14:17:45 14:32:45 Only Test Primitivo [id number] [place] 4.2.7.2.686 [place] [id number] 2020-09-13 2020-09-13 Orders Doctor GABI [id number] 00:00:00 00:00:00 Only Unassigned, [place] 350.1.13.10 [place] [facility] 4.2.7.2.686 [id number] 2020-09-06 2020-09-06 Outpatient HARVINDER Toribio [id number] 14:00:00 23:59:59 Roland 02 Jaycob 2020-08-11 2020-08-11 Outpatient [facility] [id number] [facility] 2020-08-09 2020-08-09 Outpatient HARVINDER Toribio [id number] 15:00:00 23:59:59 Roland Tanya Jaycob 2020-08-03 2020-08-03 Outpatient [facility] [id number] [facility] 2020-07-28 2020-07-28 Outpatient [facility] [id number] [facility] 2020-07-19 2020-07-19 [id number] 14:30:00 23:59:59 Roland Usman Dev[place] 2020-07-13 2020-07-13 Outpatient [facility] [id number] [facility] 2020-07-05 2020-07-05 [id number] 2020-06-29 2020-06-29 [facility] [id number] 2020-06-25 2020-06-25 [facility] [id number] 2020-06-24 2020-06-24 [facility] [id number] 2019-01-09 2019-01-19 Outpatient EDGAR Ag [facility] [id number] 21:18:46 18:08:00 Barbara 00 Flor 2019-01-10 2019-01-10 Inpatient E [address] 15:16:00 01:33:00 Results Test Description Test Time Test Comments Results Result Comments Source URINE AND STOOL 2019-01-16 Yellow [facility] 00:22:00 *NA*(01/15/19 [place] 6:22 PM) URINE AND STOOL 2019-01-16 Clear [facility] 00:22:00 (01/15/19 6:22 [place] PM) URINE AND STOOL 2019-01-16 00:22:00 Test Item Value Reference Range Interpretation Comme nts UA Spec Grav (test code = UA Spec Grav) [facility].023 [facility] [id number] 00:22:00 Test Item Value Reference Range Interpretation Comments UA pH (test code = UA pH) 5.0 1 5.0-8.0 [facility] [id number] 00:22:00Negative (01/15/19 6:22 PM) [facility] [id number] 00:22:00Negative *NA*(01/15/19 6:22 PM)[facility] [id number] 00:22:00Negative *NA*(01/15/19 6:22 PM)[facility] [id number] 00:22:00Negative (01/15/19 6:22 PM)[facility] KYSET9452-88-05 00:22:00Negative (01/15/19 6:22 PM) [facility] [id number] 00:22:00Negative (01/15/19 6:22 PM) [facility] MSGCP8294-72-65 00:22:00None Seen (01/15/19 6:22 PM) [facility] PPMYV1286-14-12 00:22:001[facility] TJOYW3859-37-33 00:22:001[facility] LkzcbglQOBJFFEIJYLI8743-10-37 10:48:004.3 Memorial WdqukkpFXVQDSAIOTRA2001-79-26 10:48:78568Pcfczdog HermannELECTROLYTES 2019-01-14 10:48:0026[facility] AcnrnkbTPUXPEYIYXTP9717-53-25 10:48:008.9[facility] DphkksbUMLFNBEWVZWV2090-64-21 10:48:0087[facility] KjabgxnKDRHGUEIQR5484-58-41 10:48:002.6[facility] VwqvjgiKPFBMBSCQL9234-17-61 10:48:003.79[facility] [place] RBBRVFPKSG9580-63-86 10:48:0011.1[facility] DngmxnhSSIZRFRINS8279-09-22 10:48:00 34.9[facility] TvfddcwWVNANSQXIQ7894-49-62 10:48:0092.0[facility]annHEMATOLOGY 2019-01-14 10:48:00 Test Item Value Reference Range Interpretation Comments MCH (test code = MCH) 29.3 pg 27.0-31.0 Memorial QfrvcumBIAHKJNGRY2874-89-85 10:48:0031.8[facility]annHEMATOLOGY 2019-01-14 10:48:0016.5[facility] VkmskirUIGACXYMGF8276-64-36 10:48:59941Lvibtjjy UsojgutWQQBGNDOMG9693-57-39 10:48:008.3[facility] FbxkxthEDUKTIFNDY1552-93-66 10:48:0066.8[facility] OtvswaoCFZXXYJHTS8959-44-19 10:48:0012.6[facility] [place] OOKVJTWYOC5326-13-12 10:48:008.4[facility] WlgxlphURDHDUDWFW3300-90-19 10:48:00 11.5[facility] PoynuogKTZQRSBIDE7843-20-95 10:48:000.7[facility]annHEMATOLOGY 2019-01-14 10:48:001.7[facility] NmklshtGMRREDTMCL2038-52-80 10:48:000.3[facility] FdjnnkeRPCKYJBAPL8140-97-20 10:48:000.2[facility] KchayylOZDEJVUHBH8319-49-95 10:48:000.3[facility] HermannCHEM FURQP7221-69-80 10:48:002.3[facility] HermannCHEM TUQSA1852-09-69 10:48:003.0[facility] TjusbylGICPIRRUZBWE4064-82-14 10:48:0010.3 Memorial PrzcrnvMTVFXADMSATW3056-73-71 10:48:04369Sqkrdcxa HermannELECTROLYTES 2019-01-14 10:48:0015Mem[facility] BteghuiGVVXSTTFTSFJ5160-25-11 10:48:000.69[facility] NkzzfflTSZKOPGALGFK8232-46-85 10:48:47027Swasvfww HermannCHEM ABFSB7552-36-71 10:15:002.0[facility] HermannCHEM BTURB5464-95-32 10:15:003.6[facility] HermannCHEM AXOPF2367-67-80 10:15:67228Zrjdakmq HermannCHEM ZJUIN6269-56-89 10:15:009 [facility]annCHEM HJXMJ9287-93-48 10:15:000.71[facility] HermannCHEM PANEL 2019-01-13 10:15:43727Eipkdztx HermannCHEM UNNKX2141-55-64 10:15:004.2[facility] HermannCHEM JCUMV7346-53-95 10:15:76246Bgrfvsov HermannCHEM FWIHP3406-55-48 10:15:0027[facility] HermannCHEM ZKTSW9011-79-26 10:15:0010.2[facility] HermannCHEM KQZGS4957-40-26 10:15:008.9[facility] HermannCHEM JLMYF1284-44-93 10:15:0086 Memorial AxjgkuhPCHSANXULG5179-66-26 10:15:0063.6[facility] HermannHEMATOLOGY 2019-01-13 10:15:0019.5[facility] MgylvqzCYUNZMEWRS9372-43-83 10:15:0011.0[facility] VjrzjxpLYPCASDIQR8531-21-47 10:15:005.2[facility] YmdwkmoQLXYOPGRMD1744-63-88 10:15:000.7[facility] PuqcuvgLQMZMRONYJ0664-34-11 10:15:001.4[facility] Philip VZBSNJGGTJ8838-17-49 10:15:000.4[facility] JubobmkSPQHQQBXGL5494-73-76 10:15:000.2 Memorial ZjzduwqGZQVUZPWHW8188-54-35 10:15:000.1[facility] HermannHEMATOLOGY 2019-01-13 10:15:002.2[facility] TyjxvhoEQSJRBMICQ8101-67-44 10:15:003.60[facility] PiuwxsjWLSDFLOADA8563-68-50 10:15:0010.8[facility] ZoijtdpGCGBKJGRUR7321-47-03 10:15:0033.4[facility] JcwzgnxBBFWWFLQCK9108-96-32 10:15:0092.9[facility] Philip ZNMKADBQVG8903-29-95 10:15:00 Test Item Value Reference Range Interpretation Comments MCH (test code = MCH) 30.1 pg 27.0-31.0 Memorial MmwflmsWHIBEUOGHS2593-98-82 10:15:0032.4[facility] HermannHEMATOLOGY 2019-01-13 10:15:0017.0[facility] AizigmhDOEXRMHDBB0047-89-73 10:15:29409Earibznr AvzyehmAUMEIOWAUN1716-08-29 10:15:008.0[facility] HermannCHEM ZTDCJ2284-62-82 10:43:50453Gpnfnnqf HermannCHEM PORCV8096-67-15 10:43:007[facility] HermannCHEM PYWGZ7825-29-79 10:43:000.69[facility] HermannCHEM FQTCI6339-76-82 10:43:94832 [facility] HermannCHEM MHLSS6927-94-75 10:43:004.3[facility] HermannCHEM PANEL 2019-01-12 10:43:99136Picbzaiz HermannCHEM NJJMV3378-83-85 10:43:0026[facility] HermannCHEM QRUEL9969-00-08 10:43:008.5[facility] HermannCHEM SFKHU0951-57-56 10:43:0087Mem[facility] HermannCHEM AXOQS7541-04-65 10:43:0011.3[facility] HermannCHEM YIECU7359-26-14 10:43:001.9[facility] HermannCHEM XFADQ6087-36-49 10:43:002.8 Memorial WxkfrmrDIGWJSTKWJ2411-27-94 10:43:003.7[facility] HermannHEMATOLOGY 2019-01-12 10:43:003.68[facility] DdhsrzvGLKEKXUTDH2152-18-07 10:43:0011.0[facility] PvpbhwqSKDXPAFOGU9169-62-87 10:43:0033.9[facility] YmdroacUPIIESECJK4180-04-97 10:43:0092.1[facility] VtkhbugOCRJESPQAG0324-65-36 10:43:00 Test Item Value Reference Range Interpretation Comments MCH (test code = MCH) 30.0 pg 27.0-31.0 [facility] TdbqdukDZLFMMBGTT6471-08-68 10:43:0032.6[facility]annHEMATOLOGY 2019-01-12 10:43:0016.7[facility] KutuqswTWFJYADKFC8721-10-10 10:43:55857Eoztrfmi AunsgckHEQLPXADOD7971-45-83 10:43:008.2[facility] FqwevdlIMYIFWMFVG7859-04-53 10:43:0076.8[facility] BvuuowoAXDWBQRAVZ5924-77-85 10:43:009.9[facility] XYXJLTNJLJ3304-45-24 10:43:0011.8[facility] UslzaqjXRBOQBVDQA6921-56-62 10:43:00 1.2[facility] CfxbwilAQAGLXUHJK3478-98-21 10:43:000.3[facility]annHEMATOLOGY 2019-01-12 10:43:002.8[facility] TthwshtMBPMIWMYQP1153-03-12 10:43:000.4[facility] DeoacjmZPQAESJVBN7702-19-42 10:43:000.4[facility]annBACTERIAL - SEROLOGY 2019-01-10 09:33:00Urine *NA*(01/10/19 3:33 AM)[facility]annBACTERIAL - KCRMVAEM0242-26-61 09:33:00Negative (01/10/19 3:33 AM)[facility] AND ELLGU4579-95-81 09:33:00Yellow *NA*(01/10/19 3:33 AM)[facility] UFSXH4086-69-70 09:33:00Clear (01/10/19 3:33 AM)[facility] STOOL 2019-01-10 09:33:00 Test Item Value Reference Range Interpretation Comments UA Spec Grav (test code = UA Spec 1.014 1 Grav) [facility] DGSIT7560-48-44 09:33:00 Test Item Value Reference Range Interpretation Comments UA pH (test code = UA pH) 5.0 1 5.0-8.0 [facility] [id number] 09:33:00Negative (01/10/19 3:33 AM) [facility] AVZOX7087-05-63 09:33:00Negative *NA*(01/10/19 3:33 AM)[facility] NDMVS3830-40-31 09:33:00Trace *ABN*(01/10/19 3:33 AM)[facility] TQECX0810-37-90 09:33:00Negative *NA*(01/10/19 3:33 AM)[facility] ENSFB7793-78-36 09:33:00Negative (01/10/19 3:33 AM)[facility] XTCSG2664-29-57 09:33:00Negative (01/10/19 3:33 AM) [facility] [facility] [id number] 09:33:00Negative (01/10/19 3:33 AM) [facility] [id number] 09:33:00None Seen (01/10/19 3:33 AM) [facility] [id number] 09:33:00<1[facility] [id number] 09:33:00<1[facility] - [id number] 07:15:00Negative (01/10/19 1:15 AM)[facility] - [id number] 07:15:00Negative (01/10/19 1:15 AM)[facility]annCARDIAC [id number] 05:21:000.09[facility]annCHEM [id number] 05:21:007.1[facility]annCHEM [id number] 05:21:003.1[facility]annCHEM [id number] 05:21:0027 [facility] [id number] 05:21:0027[facility]annCHEM PANEL 2019-01-10 05:21:99931Pitsfahv HermannCHEM [id number] 05:21:000.5[facility]annCHEM [id number] 05:21:00 Test Item Value Reference Range Interpretation Comments B/C Ratio (test code = B/C Ratio) 17 1 6-25 [facility] [id number] 05:21:004.0[facility]annCHEM PANEL 2019-01-10 05:21:00 Test Item Value Reference Range Interpretation Comments A/G Ratio (test code = A/G Ratio) 0.8 1 0.7-1.6 [facility] [id number] 05:21:000.9[facility] 2019-01-10 05:21:00 Test Item Value Reference Range Interpretation Comments INR (test code = INR) 1.08 1 0.85-1.17 [id number] 05:21:00 Test Item Value Reference Range Interpretation Comments PT (test code = PT) 13.8 s 12.0-14.7 [id number] 05:21:00 Test Item Value Reference Range Interpretation Comments PTT (test code = PTT) 23.3 s 22.9-35.8 [facility] [id number] 05:21:000.2[facility]
[2020-09-25 22:33] LABS: Basophils % 0.6 % (0-1.3); Hematocrit 36.3 % (39.6-49.0); Lymphocytes % 24.6 % (15.3-44.8); MPV 8.2 fL (7.6-11.3); RBC Red Blood Cell Count 4.06 M/uL (4.33-5.43)
[2020-09-25 22:34] LABS: Protime INR 1.15
[2020-09-25 22:47] LABS: Albumin 3.7 g/dL (3.4-5.0); Bilirubin Direct 0.2 mg/dL (0-0.2); Bilirubin Total 0.4 mg/dL (0.2-1.0); Magnesium 2.3 mg/dL (1.8-2.4); Potassium 3.9 mmol/L (3.5-5.1); Protein, Total 7.7 g/dL (6.4-8.2); Troponin (Emerg Dept Use Only) 0.14 ng/mL (0.0-0.045)
--- NOTE | 2020-09-25 23:08 | EDPHYS ---
Physician Documentation [facility] Name: Isiah Gaytan Age: 85 yrs Sex: Male : 1935 Arrival Date: 09/25/2020 Time: 21:50 Bed 2 Private MD: ED Physician Kevin Blackwell HPI: 09/25 22:54 This 85 yrs old Male presents to ER via Wheelchair with complaints of Chest manish Pain > 30 y/o. 22:54 The patient or guardian reports chest pain that is located primarily in the anterior manish chest wall, left. Onset: 2 hour(s) ago. The pain radiates to Associated signs and symptoms: Pertinent positives: nausea, shortness of breath. The chest pain is described as a heaviness. Duration: The patient or guardian reports a single episode, that is still ongoing. Modifying factors: The symptoms are alleviated by nothing. the symptoms are aggravated by nothing. Severity of pain: At its worst the pain was moderate in the emergency department the pain is unchanged. The patient has experienced similar episodes in the past, several times. Historical: - Allergies: 21:52 Azithromycin; bb 21:52 Codeine; bb 21:52 Keflex; bb - Home Meds: 21:52 aspirin 81 mg Oral chew 1 tab once daily [Active]; atorvastatin Oral [Active]; bb carbidopa-levodopa 25-100 mg Oral tab [Active]; Eliquis 5 mg Oral tab 1 tab 2 times per day [Active]; furosemide 20 mg Oral tab 1 tab 2 times per day [Active]; sotalol 40 mg Oral tab 1 tab 2 times per day [Active]; Tramadol Oral [Active]; - PMHx: 21:52 Atrial fibrillation; CHF; High Cholesterol; Hypertension; Myocardial infarction; bb - PSHx: 21:52 cardiac stents; bb - Immunization history:: Adult Immunizations unknown. - Social history:: Smoking status: unknown. - Family history:: not pertinent. ROS: 22:54 Constitutional: Negative for fever, chills, and weight loss, Eyes: Negative for injury, manish pain, redness, and discharge, ENT: Negative for injury, pain, and discharge, Neck: Negative for injury, pain, and swelling, Respiratory: Negative for shortness of breath, cough, wheezing, and pleuritic chest pain, Abdomen/GI: Negative for abdominal pain, nausea, vomiting, diarrhea, and constipation, Back: Negative for injury and pain, : Negative for injury, bleeding, discharge, and swelling, MS/Extremity: Negative for injury and deformity, Skin: Negative for injury, rash, and discoloration, Neuro: Negative for headache, weakness, numbness, tingling, and seizure, Psych: Negative for depression, anxiety, suicide ideation, homicidal ideation, and hallucinations, Allergy/Immunology: Negative for hives, rash, and allergies, Endocrine: Negative for neck swelling, polydipsia, polyuria, polyphagia, and marked weight changes, Hematologic/Lymphatic: Negative for swollen nodes, abnormal bleeding, and unusual bruising. 22:54 Cardiovascular: Positive for chest pain, palpitations. Exam: 22:54 Constitutional: This is a well developed, well nourished patient who is awake, alert, manish and in no acute distress. Head/Face: Normocephalic, atraumatic. Eyes: Pupils equal round and reactive to light, extra-ocular motions intact. Lids and lashes normal. Conjunctiva and sclera are non-icteric and not injected. Cornea within normal limits. Periorbital areas with no swelling, redness, or edema. ENT: Nares patent. No nasal discharge, no septal abnormalities noted. Tympanic membranes are normal and external auditory canals are clear. Oropharynx with no redness, swelling, or masses, exudates, or evidence of obstruction, uvula midline. Mucous membranes moist. Neck: Trachea midline, no thyromegaly or masses palpated, and no cervical lymphadenopathy. Supple, full range of motion without nuchal rigidity, or vertebral point tenderness. No Meningismus. Chest/axilla: Normal chest wall appearance and motion. Nontender with no deformity. No lesions are appreciated. Respiratory: Lungs have equal breath sounds bilaterally, clear to auscultation and percussion. No rales, rhonchi or wheezes noted. No increased work of breathing, no retractions or nasal flaring. Abdomen/GI: Soft, non-tender, with normal bowel sounds. No distension or tympany. No guarding or rebound. No evidence of tenderness throughout. Back: No spinal tenderness. No costovertebral tenderness. Full range of motion. Male : Normal genitalia with no discharge or lesions. Skin: Warm, dry with normal turgor. Normal color with no rashes, no lesions, and no evidence of cellulitis. 22:54 Cardiovascular: Rate: tachycardic, Rhythm: irregular, Pulses: Pulses are 4+ in bilateral radial, brachial, femoral, popliteal, posterior tibial and and dorsalis pedis arteries.. Heart sounds: normal, normal S1and S2, no S3 or S4, no murmur, no rub, no gallop, murmur, not appreciated, rub, not appreciated, gallop, not appreciated, S1, normal, S2, normal, S3, decreased, S4, decreased, Edema: is not appreciated, JVD: is not appreciated. 22:54 ECG was reviewed by the Attending Physician. Vital Signs: 21:50 BP 151 / 79; Pulse 101; Resp 16 S; Temp 98.1(O); Pulse Ox 98% on R/A; Weight 75.1 kg bb (M); Height 5 ft. 9 in. (175.26 cm) (R); Pain 4/10; 23:35 BP 149 / 82; Pulse 90; Resp 20 S; Pulse Ox 99% on R/A; Pain 0/10; em 09/26 00:21 BP 124 / 75; Pulse 76; Resp 18; Pulse Ox 98% on R/A; em 09/25 21:50 Body Mass Index 24.45 (75.10 kg, 175.26 cm) bb MDM: 09/25 22:40 Patient medically screened. manish 23:08 Differential diagnosis: abnormal EKG, acute myocardial infarction, acute pericarditis, manish anxiety, coronary artery disease chest wall pain, hiatal hernia, pancreatitis, peptic ulcer disease, pericarditis, pleurisy, pulmonary embolus, stable angina, unstable angina. HEART Score: History: Moderately Suspicious (1), ECG: Significant ST-deviation (2), Age: > or = 65 years (2), Risk Factors: > or = 3 Risk factors for atherosclerotic disease (2), [Hypercholesterolemia] [Hypertension] [+ Family HX] Troponin: < or = 1 x Normal Limit (0), Total Score = 7. The patient was given aspirin in the Emergency Department. The patient's deep vein thrombosis risk score was calculated as follows: Total Score: 0. This patient was found to be at low risk for a deep vein thrombosis by using the Well's assessment criteria. The patient's pulmonary embolism risk score was calculated as follows: Total Score: 0-2 points. This patient was found to be at low risk for a pulmonary embolism by using the Well's assessment criteria. SUDHA Risk Score: not applicable. Data reviewed: vital signs, nurses notes, lab test result(s), EKG, radiologic studies, plain films. 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 Test interpretation: by ED physician or midlevel provider: ECG, plain radiologic studies. Counseling: I had a detailed discussion with the patient and/or guardian regarding: the historical points, exam findings, and any diagnostic results supporting the discharge/admit diagnosis, lab results, radiology results, the need to transfer to another facility, for higher level of care, [facility] does not immediately have the required specialist. 09/25 22:23 Order name: Basic Metabolic Panel; Complete Time: 22:50 09/25 22:23 Order name: CBC with Diff; Complete Time: 22:46 09/25 22:46 Interpretation: WBC 4.00; RBC 4.06; HGB 12.1; HCT 36.3; MCV 89.5; MCH 29.8; MCHC 33.3; la1 PLT 167; RDW 15.7; MPV 8.2; HUANG% 59.2; LYM% 24.6; MN% 12.5; EOSINOPHIL % 3.1; BASO% 0.6; NEUT A 2.3; LYMA 1.0; MNA 0.5; EOSA 0.1; BASOA 0.0. 09/25 22:23 Order name: LFT's; Complete Time: 22:50 09/25 22:23 Order name: Magnesium; Complete Time: 22:50 09/25 22:23 Order name: NT PRO-BNP; Complete Time: 22:50 09/25 22:23 Order name: PT-INR; Complete Time: 23:39 09/25 22:23 Order name: Troponin (emerg Dept Use Only); Complete Time: 22:50 09/25 22:23 Order name: XRAY Chest (1 view) bb 09/26 00:39 Order name: SARS-COV-2 RT PCR EDMS 09/25 22:23 Order name: EKG; Complete Time: :24 09/25 22:23 Order name: Cardiac monitoring; Complete Time: :09/25 22:23 Order name: EKG - Nurse/Tech; Complete Time: :09/25 22:23 Order name: IV Saline Lock; Complete Time: 22:09/25 22:23 Order name: Labs collected and sent; Complete Time: :09/25 22:23 Order name: O2 Per Protocol; Complete Time: :09/25 22:23 Order name: O2 Sat Monitoring; Complete Time: : EC:54 Rate is 101 beats/min. Rhythm is irregularly irregular. QRS [place] is Normal. MN interval manish is normal. QRS interval is normal. QT interval is normal. No Q waves. T waves are Normal. T waves are Inverted. ST Segment is elevated in lead aVR. ST Segment is depressed in leads I, II, aVL, V4, V5, V6. Clinical impression: Atrial Fibrillation. Interpreted by me. Reviewed by me. Administered Medications: 22:50 Drug: fentaNYL (PF) 25 mcg Route: IVP; Site: left antecubital; bb 23:30 Follow up: Response: No adverse reaction; Marked relief of symptoms; Pain is decreased em 22:50 Drug: Zofran (Ondansetron) 4 mg Route: IVP; Site: left antecubital; bb 22:50 Drug: Aspirin Chewable Tablet 324 mg Route: PO; bb 22:51 CANCELLED (Duplicate Order): Aspirin 81 mg PO once manish 23:06 Drug: PlaVIX (clopidogrel) 600 mg Route: PO; bb 23:10 Drug: Pepcid (famotidine) 20 mg Route: IVP; Site: left antecubital; em 09/26 02:38 Follow up: Response: No adverse reaction em 09/25 23:30 Drug: Heparin (TN-Bolus No thrombolytic) - HEParin 60 units/kg {Co-Signature: remy (Preston Dockery RN).} Route: IVP; Site: left antecubital; 23:30 Drug: Heparin (TN Drip) 12 units/kg/hr - (HEParin 87942 units, D5W 500 ml) angelic {Co-Signature: remy (Preston Dockery RN).} Route: IV; Rate: calculated rate; Site: left antecubital; 23:35 Drug: Lopressor (metoprolol) 5 mg Route: IVP; Site: left antecubital; em 09/26 02:38 Not Given (Physician Discretion): Lopressor (metoprolol TARTRATE) 50 mg PO once em Disposition Summary: 09/25/20 23:08 Transfer Ordered Transfer Location: [facility] manish Reason: Higher level of care manish Condition: Serious manish Problem: new manish Symptoms: have improved manish Accepting Physician: md heath(09/26/20 02:39) mw2 Diagnosis - Chronic atrial fibrillation manish - Chest pain, unspecified manish - Non ST elevation TN manish - Essential (primary) hypertension manish Forms: - Medication Reconciliation Form manish - SBAR form manish Signatures: Dispatcher [employer] EDKevin Stewart MD MD cha Munoz, Edgar, RN KATELYNN em Janett Simpson RN RN bb Attema, Lee, FNP-C [facility] Amarilis Perez RN RN Nayana Padgett 2 Preston Dockery RN Corrections: (The following items were deleted from the chart) 09/25 21:53 21:52 Home Meds: Eliquis Oral; robyn carlson 22:51 22:41 Aspirin 81 mg PO once ordered. formerly [facility] 23:45 22:55 CORONAVIRUS+ ordered. [facility] 09/26 02:39 09/25 23:08 md manish joe mw2
--- NOTE | 2020-09-25 23:08 | ER ---
Nurse's Notes [facility] Name: Isiah Gaytan Age: 85 yrs Sex: Male : 1935 Arrival Date: 09/25/2020 Time: 21:50 Bed 2 Private MD: Diagnosis: Chronic atrial fibrillation;Chest pain, unspecified;Non ST elevation [place];Essential (primary) hypertension Presentation: 09/25 21:50 Chief complaint: Patient states: he is having chest pain starting about 45 mins ago. bb Coronavirus screen: At this time, the client does not indicate any symptoms associated with coronavirus-19. Ebola Screen: No symptoms or risks identified at this time. Initial Sepsis Screen: Does the patient meet any 2 criteria? No. Patient's initial sepsis screen is negative. Does the patient have a suspected source of infection? No. Patient's initial sepsis screen is negative. Risk Assessment: Do you want to hurt yourself or someone else? Patient reports no desire to harm self or others. Onset of symptoms was September 25, 2020. 21:50 Method Of Arrival: Wheelchair bb 21:50 Acuity: MARIOLA 2 bb Triage Assessment: 21:52 General: Appears in no apparent distress. uncomfortable, Behavior is calm, cooperative. bb Pain: Complains of pain in chest Pain currently is 4 out of 10 on a pain scale. Neuro: Level of Consciousness is awake, alert, obeys commands, Oriented to person, place, time, situation. Cardiovascular: Capillary refill < 3 seconds Patient's skin is warm and dry. Rhythm is junctional rhythm. Respiratory: Airway is patent Respiratory effort is even, unlabored, Respiratory pattern is regular. GI: No signs and/or symptoms were reported involving the gastrointestinal system. Derm: Skin is pink, warm \T\ dry. Musculoskeletal: Circulation, motion, and sensation intact. Historical: - Allergies: 21:52 Azithromycin; bb 21:52 Codeine; bb 21:52 Keflex; bb - Home Meds: 21:52 aspirin 81 mg Oral chew 1 tab once daily [Active]; atorvastatin Oral [Active]; bb carbidopa-levodopa 25-100 mg Oral tab [Active]; Eliquis 5 mg Oral tab 1 tab 2 times per day [Active]; furosemide 20 mg Oral tab 1 tab 2 times per day [Active]; sotalol 40 mg Oral tab 1 tab 2 times per day [Active]; Tramadol Oral [Active]; - PMHx: 21:52 Atrial fibrillation; CHF; High Cholesterol; Hypertension; Myocardial infarction; bb - PSHx: 21:52 cardiac stents; bb - Immunization history:: Adult Immunizations unknown. - Social history:: Smoking status: unknown. - Family history:: not pertinent. Screenin:42 Abuse screen: Denies threats or abuse. Nutritional screening: No deficits noted. bb Tuberculosis screening: No symptoms or risk factors identified. Fall Risk None identified. Assessment: 22:42 Reassessment: No changes from previously documented assessment. see triage assessment. bb 23:35 Reassessment: Patient appears in no apparent distress at this time. Patient is alert, em oriented x 3, equal unlabored respirations, skin warm/dry/pink. Patient denies pain at this time. Patient states feeling better. 09/26 01:33 Reassessment: Report given to KATELYNN Castillo for patient transfer to [facility] ICU 8 bed lp1 7. 02:38 Reassessment: report given to [facility]. em Vital Signs: 09/25 21:50 BP 151 / 79; Pulse 101; Resp 16 S; Temp 98.1(O); Pulse Ox 98% on R/A; Weight 75.1 kg bb (M); Height 5 ft. 9 in. (175.26 cm) (R); Pain 4/10; 23:35 BP 149 / 82; Pulse 90; Resp 20 S; Pulse Ox 99% on R/A; Pain 0/10; em 09/26 00:21 BP 124 / 75; Pulse 76; Resp 18; Pulse Ox 98% on R/A; em 09/25 21:50 Body Mass Index 24.45 (75.10 kg, 175.26 cm) bb ED Course: 09/25 21:50 Patient arrived in ED. bb 21:52 Triage completed. bb 21:52 Arm band placed on Patient placed in waiting room, Patient notified of wait time. EKG bb completed in triage. Results shown to MD. 22:00 Initial lab(s) drawn, by ED staff, sent to lab. Inserted saline lock: 20 gauge in left bb antecubital area, using aseptic technique. Blood collected. 22:34 XRAY Chest (1 view) In Process Unspecified. EDMS 22:39 Kevin Blackwell MD is Attending Physician. manish 22:42 Patient has correct armband on for positive identification. Bed in low position. Call bb light in reach. Side rails up X 1. Adult w/ patient. cardiac monitor on. Pulse ox on. NIBP on. 22:50 initiated a transfer with Kaci Philip from [facility]. [facility] 23:09 Preston Dockrey, RN is Primary Nurse. em 09/26 00:43 administrative approval given by Kaci Philip/ patient has been accepted to [address] ICU 8 CA bed 12/ Dr. Parra accepted the patient in transfer/ report to be called to [phone]. 01:24 No provider procedures requiring assistance completed. Patient maintains SpO2 lp1 saturation greater than 95% on room air. 02:38 Patient transferred, IV remains in place. em Administered Medications: 09/25 22:50 Drug: fentaNYL (PF) 25 mcg Route: IVP; Site: left antecubital; bb 23:30 Follow up: Response: No adverse reaction; Marked relief of symptoms; Pain is decreased em 22:50 Drug: Zofran (Ondansetron) 4 mg Route: IVP; Site: left antecubital; bb 22:50 Drug: Aspirin Chewable Tablet 324 mg Route: PO; bb 22:51 CANCELLED (Duplicate Order): Aspirin 81 mg PO once manish 23:06 Drug: PlaVIX (clopidogrel) 600 mg Route: PO; bb 23:10 Drug: Pepcid (famotidine) 20 mg Route: IVP; Site: left antecubital; em 09/26 02:38 Follow up: Response: No adverse reaction em 09/25 23:30 Drug: Heparin (DE-Bolus No thrombolytic) - HEParin 60 units/kg {Co-Signature: em (Preston Dockery RN).} Route: IVP; Site: left antecubital; 23:30 Drug: Heparin (DE Drip) 12 units/kg/hr - (HEParin 60892 units, D5W 500 ml) ea {Co-Signature: em (Preston Dockery RN).} Route: IV; Rate: calculated rate; Site: left antecubital; 23:35 Drug: Lopressor (metoprolol) 5 mg Route: IVP; Site: left antecubital; em 08/01 02:38 Not Given (Physician Discretion): Lopressor (metoprolol TARTRATE) 50 mg PO once em Outcome: 09/25 23:08 ER care complete, transfer ordered by . manish 09/26 01:24 critical lp1 Instructed on the need for transfer. 02:38 Transferred by ground EMS to [facility], Transfer form completed. em X-rays sent w/ patient. 02:39 Patient left the ED. mw2 Signatures: Dispatcher [employer] Kevin Chavez MD MD cha Munoz, Edgar, RN RN em Janett Simpson RN RN bb Lee Ann Andrade RN RN lp1 Amarilis Perez RN Nayana Christianson ea mw2 Preston Dockery RN em Corrections: (The following items were deleted from the chart) 09/25 21:53 21:52 Home Meds: Eliquis Oral; bb bb 21:59 21:52 Cardiovascular: Capillary refill < 3 seconds Patient's skin is warm and dry. bb Rhythm is sinus rhythm bb 23:07 21:50 BP 151 / 79; Pulse 101bpm; Resp 16bpm; Spontaneous; Pulse Ox 98% RA; Temp 98.1F bb Oral; 74.84 kg Reported; Height 5 ft. 9 in. Reported; BMI: 24.3; Pain 4/10; bb 09/26 00:22 09/25 23:35 BP 149 / 82; Pulse 90bpm; Resp 2bpm; Spontaneous; Pulse Ox 99% RA; Pain em 0/10; em
[2020-09-25] MEDS ORDERED: ASPIRIN 81 MG CHEWABLE TABLET ONE (23:10)
[2020-09-25] MEDS ORDERED: FENTANYL CITR 100 MCG/2 ML ONE (23:11)
[2020-09-25] MEDS ORDERED: ONDANSETRON 4 MG/2 ML VIAL ONE (23:12)
[2020-09-25] MEDS ORDERED: CLOPIDOGREL 75 MG TABLET ONE (23:14)
[2020-09-25] MEDS ORDERED: HEPARIN/D5W 25,000 UNIT/500 ML BAG IV ONE (23:29)
[2020-09-25] MEDS ORDERED: FAMOTIDINE 20 MG/2 ML VIAL IV ONE (23:29)
[2020-09-25] MEDS ORDERED: METOPROLOL TARTRATE 5 MG/5 ML INJ IV ONE (23:41)
[2020-09-25] MEDS ORDERED: HEPARIN 5000 UNIT/ML 1 ML VIAL ONE (23:41)
[2020-09-25] MEDS ORDERED: METOPROLOL TAR 50 MG TAB ONE (23:41)
[2020-09-26 02:54] VITALS: TEMP 98.1
[2020-09-26 02:57] VITALS: BP 124/75; O2SAT 98
--- NOTE | 2020-09-26 09:41 | RAD REPORT ---
EXAM DESCRIPTION: RAD - Chest Single View - 09/25/2020 10:34 pm CLINICAL HISTORY: CHEST PAIN Chest pain. COMPARISON: Chest Pa And Lat (2 Views) dated 08/31/2020; Chest Single View dated 08/30/2020; Chest Singl e View dated 06/11/2020; Chest Single View dated 03/21/2020 FINDINGS: Portable technique limits examination quality. The lungs are mildly emphysematous but grossly clear. The heart is normal in size. No displaced fract ures. IMPRESSION: Mild COPD.
== END 2020-09-26 02:39 | disposition short-term general hospital (02) ==
LOC: ER 21:44
DX: I21.4 Non-ST elevation (NSTEMI) myocardial infarction (principal); I10 Essential (primary) hypertension; I48.20 Chronic atrial fibrillation, unspecified; Z79.01 Long term (current) use of anticoagulants; Z79.82 Long term (current) use of aspirin; Z88.1 Allergy status to other antibiotic agents; Z88.3 Allergy status to other anti-infective agents; Z88.5 Allergy status to narcotic agent; Z20.822 Contact with and (suspected) exposure to COVID-19; Z95.818 Presence of other cardiac implants and grafts
CPT/HCPCS: 93005 ×2; 85025; 80048; 36415; 83735; 85610; 80076; 84484; 83880; 71045; 96375; 96374; 99285; U0003; J1644 ×2; J3010; J2405

== ENCOUNTER 2020-10-13 13:03 | Observation (INO) | payer OTHER ==
--- OUTSIDE RECORDS SUMMARY | 2020-10-13 13:06 | XMS REPORT | Clinical Summary ---
:1935 Author Organization [facility] MD [facility] Address [address] [place] [address] Care Team Providers Name Role Phone Kuldeep Melgoza MD Unavailable Roshan Sauceda MD Primary Care Provider Ramos Wilson MD Unavailable Rae Navarro MD Unavailable Allergies Active Allergy Reactions Severity Noted Date Comments Cephalexin Anxiety Low 09/04/2018 Codeine Anxiety Low 09/04/2018 Azithromycin Palpitations Low 09/04/2018 Medications Medication Sig Dispensed Refills Start Date End Date Status atorvastatin (LIPITOR) Take 1 tablet by 0 05/09/2013 Active 80 mg tablet mouth daily. clopidogrel (PLAVIX) 75 Take 1 tablet by 0 4 Active mg tablet mouth daily. celecoxib (CeleBREX) Take 1 capsule 5 capsule 0 09/19/2018 Active 200 mg (200 mg) by mouth capsuleIndications: 2 (two) times a Squamous cell carcinoma day as needed for of scalp moderate pain. metoprolol tartrate Take 50 mg by 0 Active (LOPRESSOR) 50 mg mouth twice tablet daily. aspirin 81 mg EC tablet Take 81 mg by 0 Active mouth daily. traMADol (ULTRAM) 50 mg Take 50 mg by 0 Active tablet mouth every 6 (six) hours as needed. bacitracin 500 Apply topically 0 Active unit/gram ointment to affected area(s) twice daily. famotidine (PEPCID) 20 Take 20 mg by 0 Active mg tablet mouth as needed. tamsulosin (FLOMAX) 0.4 Take 0.4 mg by 0 12/04/2018 Active mg 24 hr capsule mouth twice daily. fluoride, sodium, Apply to teeth 51 g 12/18/2018 Active (PREVIDENT) 1.1 % daily. [place] dental teeth with cream creamIndications: and spit out as Squamous cell carcinoma directed. (Do not of scalp eat, drink or rinse for 30 minutes). diphenhydrAMINE Take 50 mg by 0 Active (BENADRYL) 25 mg mouth nightly as capsule needed. Active Problems Problem Noted Date Unexplained falls 12/17/2018 Last Assessment & Plan: It is possible that Mr. Gaytan experien jonatan a syncopal episode resulting in the fall that broke his femur and hip, though he does not believe that he lost consciousness. He is under the care of a cardi ologist and has undergone cardiology wor kup. He underwent MRI brain in October that showed some atrophy but no acute abnormalities. The history of his fall does not correspond with epileptic etiology and he has no history of seizures. Most likely he either lost his balance o r suffered a syncopal episode due to orthostatic hypotension when rising back to a standing position from bending over. A neurologic process would be less likely . 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 Education was given regarding standing slowly and staying well hydrated. Mild cognitive impairment, so stated 12/17/2018 Last Assessment & Plan: Mr. Gaytan showed significant cognitive impairment across several domains on MOCA screening test. Suspect dementia but will refer for formal neurocognitive testing to better define impairments. We w ill plan to follow up with him and his f amily after testing is complete. Encounter for observation for other suspected conditio n ruled out 12/17/2018 Displaced intertrochanteric fracture of right femur Overview: Added automatically from request for tabitha broderick [id number] Encounter for other preprocedural examination 09/19/19 Overview: 10/01/18 ECHO Interpretation Summary A complete two-dimensional transthoracic echocardiogram was performed (2D, M- mode, Spectral and color Doppler). Micro-Bubbles injection performed because of poor endocardial resolution. There is no comparison study available. Normal left ventricular size and systoli c function. LV ejection fraction calculated using th e bi-plane method of disks is 59 %. The right ventricle is normal in size an d function. Estimated RVSP is 52mmHg. This is consis tent with pulmonary artery hypertension. There is no pericardial effusion. OUTSIDE RECORDS 05/08/17 ECHO: EF 68%. Aortic sclerosis w ith no aortic stenosis or AR. 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 hospitlilized x 10 days. requ ired IV abx and debridement CA EXC SKIN MALIG 0.6-1 09/19/2018 Right Procedur e: EXCISION OF CM REMAINDR BODY MALIGNANT LESIO N OF SCALP; Surgeon: Roshan Sauceda MD; Location: MAIN OR; Service: HN - HEAD & NECK SURGERY Medical devices from this surgery are in t he Implants section. CA SUB GRFT 09/19/2018 Right Procedure: APPLI CATION OF F/S/N/H/F/G/M/D /<100SCM SKIN WU BSTITUTE GRAFT TO /<1ST 25 SCM SCALP; Surgeon: Roshan Sauceda MD; Loca tion: MAIN OR; Service: HN - HEAD & NECK SURGERY Medical devices from this surgery are in t he Implants section. CA EXC SKIN MALIG 0.6-1 10/10/2018 Midline Procedur e: EXCISION OF CM REMAINDR BODY MALIGNANT LESIO N OF SCALP; Surgeon: Roshan Sauceda MD; Location: MAIN OR; Service: HN - HEAD & NECK SURGERY Medical devices from this surgery are in t he Implants section. CA FREE MUSC-SKIN FLAP 10/10/2018 Back/Right Procedure : FREE MUSCLE OR W/MICROVASC ANAST MYOCUTANEOUS F LAP WITH MICRVASCULAR TUCKER STOMOSIS; Surgeon: Charles Moreno MD; Location: MAIN O R; Service: PLS - PLASTIC WU RGERY Medical devices from this surgery are in t he Implants section. CA SPLIT GRFT 10/10/2018 Thigh/Right Procedure: SPLIT THICKNESS TRUNK,ARM,LEG <100 SQCM SKIN GRA FT OF TRUNK/ARM OR LEG 26h33to; Wu rgeon: Charles Moreno MD; Loca tion: MAIN OR; Service: PL S - PLASTIC SURGERY Medical devices from this surgery are in t he Implants section. CA CHG FLUOROSCOPY UP TO 10/30/2018 Right Procedu re: FLUOROSCOPY; 1 HOUR PHYSICIAN/QHP Surgeon: Srinivasa Simmons MD; TIME Location: MAIN O R; Service: ORTHOPEDIC ONCOL OGY Medical devices from this surgery are in t he Implants section. CA OPEN FIX 10/30/2018 Hip/Right Procedure: OPEN REDUCTION OF INTER/SUBTROCH FX,IMPLNT INTERTR OCHANTERIC FRACTURE OF FEMUR WITH FIXAT ION USING CERCLAGE AND INT RAMED IMPL; Surgeon: Ramón silva MD; Location: MAIN O R; Service: ORTHOPEDIC ONCOL OGY Medical devices from this surgery are in t he Implants section. Medical History Medical History Date Comments Functional visual loss 1972 Glasses Benign prostatic hyperplasia 2018 Flomax Squamous cell carcinoma in situ of skin 2017 Basal cell carcinoma of skin 2014 Coronary arteriosclerosis 2011 MO n 2010 with had chest pains. sp cardiac stents x 2 ( reportedly had another MO during pr ocedure). pt was started on Plavix at that time. in 2018, pt was tired a nd had SOB--> abnormal strress dain t--> sp stent Arthritis bilt knees. needs wa lker to help walk Hypertension Postoperative nausea and vomiting Hearing loss Family History Medical History Relation Name Comments Diabetes Maternal Grandmother -Colon cancer Mother Jacquie Hypertension Mother Jacquie Bleeding Disorder Neg Hx Coronary artery disease Neg Hx Stroke Neg Hx VTE Neg Hx Relation Name Status Comments Maternal Grandmother Mother Jacquie Social History Tobacco Use Types Packs/Day Years Used Date Former Smoker Cigarettes 1 10 Quit: 1969 Smokeless Tobacco: Former User Chew Q uit: 01/06/1993 Tobacco Cessation: Counseling Given: No Alcohol Use Standard Drinks/Week Comments Not Currently 0 (1 standard drink = 0.6 oz pure alcoho l) Sex Assigned at Date Recorded Male 09/26/2018 10:26 AM CDT Last Filed Vital Signs Not on file Plan of Treatment Not on file Implants Implanted Type Area Yarn Washer Device Shelf Model / Identifier Expiration Serial / Date Lot Latin Dancer Microvascular Anastomotic Device 2.5mm - [id number] Card ioPulm Scalp LinPrim 04/24/2023 [id number] / Implanted: Qty: 1 on 10/10/2018 by Charles Moreno MD at [facility] / [id number] Biomet Hip Frac Nail 11*400mm Rt Implant Right: [employer] 06/10/2028 [id number] / Implanted: Qty: 1 on 10/30/2018 by Ramón Simmons MD at [facility] Femur / [id number] Biomet Hf-Nail Lag Screw 10.5*105mm Implant Right: [employer] 08/07/2027 [id number] / Implanted: Qty: 1 on 10/30/2018 by Ramón Simmons MD at [facility] Femur / [id number] Biomet Cortical Bone Screw 5*54mm Implant Right: [employer] 06/26/2026 [id number] / Implanted: Qty: 1 on 10/30/2018 by Ramón Simmons MD at [facility] Femur / [id number] Integra Bp Dural Graft 4x5cm - Sna Skin/Tissue [employer] 05/26/2020 [id number] / Implanted: Qty: 1 on 09/19/2018 by Roshan Sauceda MD at [facility] NA / SURG [id number] Cardiac Stents Description:2010 x2,, 2018 x1 Pins Description:pins on the left elbow Results Not on fileafter 10/14/2019 Insurance Payer Benefit Plan / Subscriber ID Effective Dates Phone Addre ss Type Group AETNA MEDICARE AETNA MEDICARE [id number] 2013-Present Medicare PPO Advance Directives Code Status Date Activated Date Inactivated Comments Full Code 10/29/2018 6:58 PM 11/12/2018 9:54 PM Full Code 10/10/2018 10:29 AM 10/15/2018 8:46 PM
--- OUTSIDE RECORDS SUMMARY | 2020-10-13 13:10 | XMS REPORT | Continuity of Care Document ---
:1935 Author Organization [facility] t Address [address] [place] [address] Care Team Providers Name Role Phone Komal LOCKETT, N Primary Care Physician Isak Mantilla MD Attending Clinician Diana LOCKETT, Sarah Mackey Attending Clinician Veronica LOCKETT, [place] Attending Clinician Isak MANTILLA Attending Clinician Unavailable Luciano LOCKETT, Sumeet Attending Clinician Pob, Lab Main Attending Clinician Unavailable Only, Test Attending Clinician Unavailable Doctor Unassigned, Name Attending Clinician Unavailable Jaycob Toribio Attending Clinician Dora LOCKETT Attending Clinician Flor Ag Attending Clinician Isak MANTILLA Admitting Clinician Unavailable Luciano LOCKETT, Sumeet Admitting Clinician Nithya Admitting Clinician Payers Payer Name Policy Type Policy Effective Date Expiration Date Sour ce Number AETNA - MEDICARE [id number] [address] [facility] M[facility] CAREAETNA 00:00:00 - Medical MEDICARE HMO POS Center [id number] [address] [place] [address] AETNA MEDICAREAETNA [id number] 2013 MD [place]la [place] MEDICARE 00:00:00 [id number] -PresentMedicare Problems Condition Condition Condition Status Onset Resolution Last Treating Co mments Source Name Details Category Date Date Treatment Clinician Date NSTEMI NSTEMI Disease Active [facility] - elevated elevated 00:00: Medica l myocardial myocardial 00 Ce nter infarction infarction ) ) FEVER Diagnosis Active 2018-022019-01-27 Mem oria 1-14 22:24:00 l FEVER 00:00: Philip 00 Active 01/09/2019 [facility] [place] Unexplaine Unexplaine Disease Active 2018-02 Last M [...] Added automatic ally from request for surgery [id number] Encounter Encounter Disease Active Overview: for other for other 7-24 Formattin A nderso preprocedu preprocedu 00:00: g [...] 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:00: n of scalp of scalp 00 Hallucinos Hallucinos Disease Active M D is is Anderso n Atrial Problem Active 2020-09-09 Memor ia fibrillati 00:53:30 l on Atrial Philip (disorder) fibrillati on (disorder) Active Problem 09/09/2020 [facility] Carpal Problem Active 2020-09-09 Memor ia tunnel 00:53:30 l syndrome Carpal Clifford n (disorder) tunnel syndrome (disorder) Active Problem 09/09/2020 [facility] Paresthesi Problem Active 2020-09-09 M emoria a 00:53:30 l (finding) [place] Paresthesi a (finding) Active Problem 09/09/2020 [facility] Parkinson' Problem Active 2020-09-09 M emoria s disease 00:53:30 l (disorder) Clifford n Parkinson' s disease (disorder) Active Problem 09/09/2020 [facility] Tremor Problem Active 2020-09-09 Memor ia (finding) 00:53:30 l Tremor [place] (finding) Active Problem 09/09/2020 [facility] History of Past Illness Condition Condition Condition Status Onset Resolution Last Treating Co mments Source Name Details Category Date Date Treatment Clinician Date Chills Problem 2018-022019-01-21 2019-01-21 M emoria (without 1-14 22:44:12 22:44:12 l fever) Chills 18:00: [place] (without 00 fever) 01/09/2019 01/21/2019 [place] Allergies, Adverse Reactions, Alerts Allergy Allergy Status Severity Reaction(s) Onset Inactive Treating Comm ents Source Name Type Date Date Clinician codeine codeine Active Memoria l [place] Cipro Cipro Active Memoria l Philip Keflex Keflex Active Memoria l Philip Family History Family Member Diagnosis Comments Start Date Stop Date Source Family member VTE MD Blackwell Family member Bleeding Disorder MD Sumeet grant Family member Coronary artery And erson disease Family member Stroke MD Blackwell Maternal grandmother Diabetes MD Sumeet brothersrson Natural mother -Colon cancer MD Arya mitchell Natural mother Hypertension Willis son Social History Social Habit Start Date Stop Date Quantity Comments Source History of tobacco Current smoker MD [place]well use Sex Assigned At [facility] Exposure to Not sure [facility] - SARS-CoV-2 (event) Medica l Center History [facility] 2020-09-26 2020-09-[address] [facility] - Alcohol Binge 00:00:00 00:00:[address] Tobacco use and 2020-09-26 2020-09-[address] [facility] - exposure 00:00:00 00:00:00 Medical Center Alcohol intake 2020-09-26 2020-09-26 Ex-drinker [facility] - 00:[facility]:00 00:00:00 (finding) Medical Center History [facility] 2020-09-26 2020-09-[address] [facility] - Alcohol Frequency 00:00:00 00:00:00 Medical Center History [facility] 2020-09-26 2020-09-[address] [facility] - Alcohol Std Drinks 00:00:00 00:00:[address] [facility] Social History 2020-08-09 2020-08-09 [facility] 20:37:37 20:37:37 Cigarettes smoked 2018-12-17 2018-12-17 MD Arya mitchell current (pack per 00:00:00 00:00:00 day) - Reported Cigarette 2018-12-17 2018-12-17 MD Blackwell pack-years 00:00:00 00:00:00 Smoking Status Start Date Stop Date Source Social History 2019-01-10 07:34:37 2019-01-10 07:34:37 [facility] Medications Ordered Filled Start Stop Current Ordering Indication Dosage Frequency Signature Comments Components Source Medication Medication Date Date Medication? Clinician (SIG) Name Name sotaloL Yes life-threat 80mg Q.5D Take [address] (BETAPACE) 8-04 ening by mouth 2 [facility]ancy k[facility] - 80 MG 17:43: ventricular (two) Medi mendez tablet 16 tachycardia times Cente r daily. clopidogreL Yes acute 75mg QD Take [address] (PLAVIX) 75 8-04 coronary by mouth [facility] - mg tablet 17:43: syndrome daily. Al dical 16 Center atorvastati Yes 80mg QD Take [address] n (LIPITOR) 09-29 by mouth Luke s - 80 MG 17:43: daily. Medical tablet 16 Center furosemide Yes 80mg [id number] Take [address] (LASIX) 80 09-29 [id number] by mouth 3 [facility] - MG tablet 17:43: 3D (three) Medic al 16 times Center daily. nitroglycer 202- No .4mg Place 0.[address] in 09-29 08-04 mg under [facility] - (NITROSTAT) 17:35: 00:00 the tongue Medical 0.4 MG SL 56 :00 every 5 Center tablet (five) minutes as needed for Chest pain Put 1 pill under tongue every 5min as needed for chest pain.No more than 3 doses in 15min.Call 911 if pain unrelieved 5min after 1st dose . nitroglycer Yes .4mg Place [address] in 09-29 tablet [facility] - (NITROSTAT) 00:00: (0.4 mg Med ical 0.4 MG SL 00 total) Center tablet under the tongue every 5 (five) minutes as needed for Chest pain Put 1 pill under tongue every 5min as needed for chest pain.No more than 3 doses in 15min.Call 911 if pain unrelieved 5min after 1st dose . apixaban 5 Yes TAKE 1 Memor ia MG Oral 7-12 TABLET BY l Tablet 20:03: MOUTH [place] [Eliquis] 00 TWICE A DAY LORazepam Yes 0 Memoria 0.5 mg oral 7-12 Refill(s) l tablet 20:03: [place] 00 Carbidopa Yes 1 tab, PO, Me moria 25 MG / 7-12 TID, # 90 l Levodopa 20:03: tab, 3 Philip 100 MG Oral 00 Refill(s), Tablet Pharmacy: [[facility] #[id number], 175.26, cm, 07/19/20 14:31:00 CDT, Height, 75.909, kg, 07/19/20 14:31:00 CDT, Weight carbidopa-l Yes 1 tab, PO, [facility] evodopa 7-12 TID, # 90 [facility] - (Sinemet) 00:00: tab, 3 Medica l 25-100 mg 00 Refill(s), Cent er per tablet Pharmacy: [id number], 175.26, cm, 07/19/20 14:31:00 CDT, Height, 75.909, kg, 07/19/20 14:31:00 CDT, Weight prednisoLON Yes PLEASE SEE [facility] E acetate 6-27 ATTACHED [facility] - (PRED 00:00: FOR Medical FORTE) 1 % 00 DETAILED Cente r ophthalmic DIRECTIONS suspension Carbidopa Yes 1 tab, PO, Me moria 25 MG / 6-14 BID, # 60 l Levodopa 21:52: tab, 3 [place] 100 MG Oral 00 Refill(s), Tablet Pharmacy: [Sinemet [facility] 25-100[facility] #[id number], 175.26, cm, 07/19/20 14:31:00 CDT, Height, 75.909, kg, 07/19/20 14:31:00 CDT, Weight Eliquis 5 Yes 5mg Q.5D Take [address] MG tablet 6-11 by mouth 2 Luke s - 00:00: (two) Medical 00 times Center daily. Sotalol Yes 80 mg = 1 Memor ia 5-24 tab, PO, l 20:02: BID, # 60 [place] 00 tab, 0 Refill(s) Lasix Yes 80 mg, PO, Memori a 5-24 BID, 0 l 20:01: Refill(s) meloxicam Yes 15 mg, PO, Me moria 5-24 Daily, 0 l 20:00: Refill(s) [place] 00 Fleet 2018-02 No Notes: Memoria Mineral Oil 1-24 (Same l Enema 19:58: as:Fleet Mineral Oil Enema) naproxen 2018-02 Yes 500 mg = 1 Mem oria 500 mg oral 1-24 tab, PO, l tablet 15:04: BID, X 7 [place] day, # 14 tab, 0 Refill(s), Pharmacy: [id number] bisacodyl 2018-02 Yes 10 mg = 1 Mem oria 10 mg 1-24 supp, GA, l rectal 15:04: Daily, PRN Lilly nn suppository 00 Constipati on, # 10 supp, 0 Refill(s), Pharmacy: [facility] #[id number] Docusate 2018-02 Yes 100 mg = 1 Mem oria Sodium 100 1-24 cap, PO, l MG Oral 15:04: BID, # 60 Lilly nn Capsule 00 cap, 0 [Colace] Refill(s), Pharmacy: [facility] #[id number] bisacodyl 5 2018-02 Yes 10 mg = 2 M emoria mg oral 1-24 tab, PO, l enteric 15:04: Daily, PRN Herm ayush coated 00 Constipati tablet on, X 10 day, # 20 tab, 0 Refill(s), Pharmacy: [facility] #[id number] POLYETHYLEN 2018-02 Yes 17 gm, PO, Memoria E GLYCOL 1-24 Daily, PRN l 3350 142 15:04: Constipati Her pinon MG/ML Oral 00 on, # 255 Solution gm, 0 [Miralax] Refill(s), Pharmacy: [facility] #[id number] Lactulose 2018-02 No Notes: Memori a [...] e 1-21 Tablet l 19:15: should not [place] 00 be chewed or crushed. (Same as: Protonix) Phenergan 2018-02 No Notes: Memori a 1-20 (Same as: l 00:41: Phenergan) Philip Phenergan 2018-02 No 25 mg, Memori a 1-20 Route: IM, l 00:40: Q6H, Philip Dosing Weight 74.2, kg, PRN Nausea & Vomiting, Start date: 01/14/19 18:40:00 BIOINFORMATICS SPECIALIST, Duration: 30 day, Stop date: 02/13/19 18:39:00 BIOINFORMATICS SPECIALIST Dulcolax 2018-02 No Notes: Memoria Laxative 03-16 (Same As: l 16:12: Dulcolax, [place] 00 Bisco-Lax) Levaquin 2018-02 No Notes: Do [...] -18 (Same as: l / 20:49: Duoneb) [place] Ipratropium 00 [place] 0.167 MG/ML Inhalant Solution Docusate 2018-02 No 100 mg = 1 Mem oria Sodium 100 1-18 cap, PO, l MG Oral 16:51: BID, 0 Philip Capsule 00 Refill(s) Famotidine 2018-02 Yes 20 mg = 1 Me moria 20 MG Oral 1-18 tab, PO, l Tablet 16:51: BID, 0 [place] 00 Refill(s) naproxen 2018-02 No 500 mg = 2 Mem oria 250 mg oral 1-18 tab, PO, l tablet 16:51: BID, 0 [place] 00 Refill(s) Dulcolax 2018-02 No Notes: Memoria Laxative -18 (Same As: l 15:00: Dulcolax, Philip 00 Correctol) (Do Not Crush) "Do Not Crush" Miralax 2019-1 No Notes: Memoria 1-18 Dissolve l 15:00: [...] (Same as: l MG Oral 23:00: Colace) [place] Capsule (Do Not Crush) Acetaminoph 2018-02 No Notes: Do M emoria en 325 MG / 1-15 not exceed l Hydrocodone 19:50: 4gm/day of Bitartrate acetaminop 10 MG Oral hen. Tablet (Same as: [Campbell Campbell 10/325] 325/10) clopidogrel 2018-02 No Notes: Pepe micki 1-15 (Same As: l 15:02: Plavix) Flomax 2018-02 No Notes: Memoria 1-15 (Same As: l 15:02: Flomax) "Do Not Crush" Morphine 2018-02 No 2 mg, 1 Memori a 1-15 mL, Route: l 11:04: IVP, Drug form: SOLN, Q4H, Dosing Weight 74.2, kg, PRN Pain Score 7-10, Start date: 01/10/19 5:04:00 BIOINFORMATICS SPECIALIST, Duration: 30 day, Stop date: 02/09/19 5:03:00 BIOINFORMATICS SPECIALIST, 0 Streptococc 2018-02 No Notes: Pepe micki us 1-15 Shake well l pneumoniae 09:35: prior to Her pinon serotype 1 51 use (Same capsular as: antigen Prevnar diphtheria 13) [id number] protein conjugate vaccine / Streptococc us pneumoniae serotype 14 capsular antigen diphtheria [id number] protein conjugate vaccine / Streptococc us pneumoniae serotype 18C capsular antigen d metoprolol 2018-02 Yes 50 mg = 1 Me moria 50 mg oral 1-15 tab, PO, l tablet, 09:19: Daily, # Clifford n extended 00 30 tab, 0 release Refill(s) clopidogrel 2018-02 Yes 75 mg = 1 M emoria 75 mg oral 1-15 tab, PO, l tablet 09:19: Daily, # [place] 00 30 tab, 0 Refill(s) atorvastati 2018-02 [...] l / 09:00: Duoneb) Philip Ipratropium 00 [place] 0.167 MG/ML Inhalant Solution Ondansetron 2018-02 No Notes: Pepe micki -15 (Same as: l 08:36: Zofran) Philip 00 MEDICATION WASTE Product Size: 4 mg Product Wasted: ___ mg Albuterol 2018-02 No Notes: SEE Me moria 0.83 MG/ML -15 RT l Inhalant 08:36: DOCUMENTAT Her pinon Solution 00 ION (Same as: Proventil) NS 1,000 mL 2018-02 No 1,000 mL, M emoria 1-15 Rate: 60 l 08:33: ml/hr, [place] 00 Infuse over: 16.7 hr, Route: IV, Dosing Weight 74.2 kg, Total Volume: 1,000, Start date: 01/10/19 2:33:00 BIOINFORMATICS SPECIALIST, Duration: 1 doses or times, Stop date: 01/10/19 19:14:00 BIOINFORMATICS SPECIALIST, 1.91, m2, 0 Morphine 2018-02 No Notes: Memoria -15 (Same l 07:20: as:MORPhin Philip 00 e Sulfate) Zofran 2018-02 No Notes: Memoria 1-15 (Same as: l 07:20: Zofran) Philip 00 MEDICATION WASTE Product Size: 4 mg Product Wasted: ___ mg Levaquin 2018-02 No Notes: Memoria 1-15 (Same l 07:17: as:Levaqui [place] 00 n) Zofran 2018-02 No Notes: Memoria 1-15 (Same as: l 04:21: Zofran) Philip 00 MEDICATION WASTE Product Size: 4 mg Product Wasted: ___ mg Saline 2018-02 No Notes: Memoria Flush 0.9% 1-15 (Same as: l 04:20: BD Philip 00 Posiflush) Sodium 2018-02 No 1,000 mL, Memori a Chloride 1-15 2,000 l 0.9% 04:20: ml/hr, Philip (Bolus) IV 00 Infuse Over: 0.5 hr, Route: IV, 1,000, Drug form: INJ, ONCE, Priority: STAT, Dosing Weight 74.2 kg, Start date: 01/09/19 22:20:00 BIOINFORMATICS SPECIALIST, Stop date: 01/09/19 22:20:00 BIOINFORMATICS SPECIALIST, 0 traMADol 2018-02 Yes 50mg Take 50 mg [...] as n 25 mg 22 needed. capsule metoprolol 2018-02 Yes 50mg Take 50 mg M D tartrate 1-13 by mouth Anderso (LOPRESSOR) 17:53: twice n 50 mg 22 daily. tablet aspirin 81 2018-02 Yes 81mg Take 81 mg M D mg EC 1-13 by mouth Anderso tablet 17:53: daily. n 22 fluoride, 2018-02 Yes 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 n 1.1 % 00 of scalp [place] dental teeth with cream cream and spit [...] Observation Time Observation Value Comments Source Systolic blood 2020-09-29 11:17:00 132 mm[Hg] [facility] Diastolic blood 2020-09-29 11:17:00 61 mm[Hg] [facility] Heart rate 2020-09-29 11:17:00 78 /min [facility] Body temperature 2020-09-29 11:17:00 36.44 Jessica [facility] Respiratory rate 2020-09-29 11:17:00 20 /min [facility] Oxygen saturation in 2020-09-29 11:17:00 97 /min [facility] Arterial blood by Medical Ce nter Pulse oximetry Body height 2020-09-28 12:51:00 175.3 cm [facility] Body weight 2020-09-28 12:51:00 74.844 kg [facility] BMI 2020-09-28 12:51:00 24.37 kg/m2 [facility] Systolic (mm Hg) 2020-09-06 19:00:00 Pepe Palacios Diastolic (mm Hg) 2020-09-06 19:00:00 [facility] destin Palacios Heart Rate 2020-09-06 19:00:00 Memorial Philip Respitory Rate 2020-09-06 19:00:00 Memori al Philip Systolic (mm Hg) 2020-08-09 20:36:00 Pepe rial Philip Diastolic (mm Hg) 2020-08-09 20:36:00 Mem orial [place] Heart Rate 2020-08-09 20:36:00 [facility] [place] Respitory Rate 2020-08-09 20:36:00 Memori al [place] Systolic (mm Hg) 2020-07-19 19:31:00 Pepe rial [place] Diastolic (mm Hg) 2020-07-19 19:31:00 Mem orial Philip Heart Rate 2020-07-19 19:31:00 [facility] [place] Respitory Rate 2020-07-19 19:31:00 Memori al Philip Height 2020-07-19 19:31:00 175.26 cm Memorial Philip Weight 2020-07-19 19:31:00 Memorial Philip BMI Calculated 2020-07-19 19:31:00 Memori al Philip Temperature Oral (F) 2019-01-19 21:26:00 97.6 F [facility] Philip Heart Rate 2019-01-19 21:26:00 [facility] [place] Respitory Rate 2019-01-19 21:26:00 Memori al [place] Systolic (mm Hg) 2019-01-19 21:26:00 Pepe rial [place] Diastolic (mm Hg) 2019-01-19 21:26:00 Mem orial Philip Temperature Oral (F) 2019-01-19 17:23:00 97.9 F Memorial Philip Heart Rate 2019-01-19 17:23:00 [facility] [place] Respitory Rate 2019-01-19 17:23:00 Memori al Philip Systolic (mm Hg) 2019-01-19 17:23:00 Pepe rial [place] Diastolic (mm Hg) 2019-01-19 17:23:00 Mem orial Philip Temperature Oral (F) 2019-01-19 13:47:00 97.6 F [facility] Philip Heart Rate 2019-01-19 13:47:00 Memorial Philip Respitory Rate 2019-01-19 13:47:00 Memori al [place] Systolic (mm Hg) 2019-01-19 13:47:00 Pepe rial [place] Diastolic (mm Hg) 2019-01-19 13:47:00 [facility] orimelania Palacios Height 2019-01-10 12:17:00 170.18 cm Beba Palacios Weight 2019-01-10 03:42:00 Beba Palacios Procedures Procedure Date / Time Performed Performing Clinician [facility] POCT-GLUCOSE METER 2020-09-29 11:24:00 Zaheer Ortiz Narendra [facility] POCT-GLUCOSE METER 2020-09-29 07:37:00 Zaheer Ortiz [facility] BASIC METABOLIC PANEL (7) 2020-09-29 05:02[facility] 2020-09-29 [facility] 2020-09-29 05:02:00 [facility] POCT-GLUCOSE METER 2020-09-28 22:29:00 Zaheer Ortiz [facility] US ABDOMEN LIMITED 2020-09-28 15:36:00 Alonzo Martin [facility] APTT 2020-09-28 10:58:00 [facility] POCT-GLUCOSE METER 2020-09-28 07:47:00 Zaheer Ortiz [facility] BASIC METABOLIC PANEL (7) 2020-09-28 06:37:00 [facility] CBC (HEMOGRAM ONLY) 2020-09-28 06:37:00 [facility] 2020-09-28 06:37[facility] 2020-09-28 00:27:00 [facility] POCT-GLUCOSE METER 2020-09-27 16:39:00 Zaheer Ortiz [facility] POCT-GLUCOSE METER 2020-09-27 11:16:00 Zaheer Ortiz [facility] 2D ECHO W/ DOPPLER 2020-09-27 09:45:35 Fidel-Alejandrina [facility] (CW/PW/COLOR) [facility] POCT-GLUCOSE METER 2020-09-27 08:43:00 Zaheer Ortiz [facility] SARS-COV2/RT-PCR ([facility] & 2020-09-27 04:13:00 [facility] - REF LABS) [facility] BASIC METABOLIC PANEL (7) 2020-09-27 04:13:00 [facility] CBC (HEMOGRAM ONLY) 2020-09-27 04:13:00 [facility] MAGNESIUM 2020-09-27 04:13:00 [facility] IRON, TIBC, % SAT. 2020-09-27 04:13:00 Zaheer Ortiz [facility] (WITHOUT FERRITIN) Medical Cente r FERRITIN 2020-09-27 04:13:00 Zaheer Ortiz [facility] VITAMIN B12 AND FOLATE 2020-09-27 04:13:00 Zaheer Ortiz [facility] POCT-GLUCOSE METER 2020-09-26 23:06:00 Diana [facility] APTT 2020-09-26 12:26:[address] [facility] ABORH, MANUAL 2020-09-26 06:46:00 Abril Lucero [facility] XR CHEST 1 VIEW PORTABLE 2020-09-26 05:40:00 [facility] BEDSIDE Medical [place] COMPREHENSIVE METABOLIC 2020-09-26 04:29:00 [facility] HEMOGLOBIN A1C 2020-09-26 04:29:00 [facility] HIGH SENSITIVITY TROPONIN 2020-09-26 04:29:00 [facility] LIPID PANEL 2020-09-26 04:29:[address] [facility] CBC W/PLT COUNT & AUTO 2020-09-26 04:29:00 [facility] DIFFERENTIAL [facility] B-TYPE NATRIURETIC FACTOR 2020-09-26 04:29:00 [facility] (BNP) [facility] TYPE AND SCREEN, 2020-09-26 04:29:00 [facility] s - AUTOMATED [facility] PROTHROMBIN TIME/INR 2020-09-26 04:28:[address] [facility] APTT 2020-09-26 04:28:00 [facility] ECG 12-LEAD 2020-09-26 03:44:53 [facility] Plan of Care Planned Activity Planned Date Details Comments Source Future Scheduled 2020-10-[address] [facility] - Test 00:00:00 (#1) [code = Medical Center INFLUENZA VACCINE (#1)] Future Scheduled 2020-02-[address] [facility] - Test 00:00:00 (12+) [code = [facility] Center DEPRESSION SCREENING (12+)] Future Scheduled 2020-02-27 FALLS RISK SCREENING [facility] - Test 00:00:00 [code = FALLS RISK Medical C enter SCREENING] Future Scheduled 2020-02-[address] [facility] - Test 00:00:00 (WELCOME TO MEDICARE) Medica l Center [code = Medicare IPPE (WELCOME TO MEDICARE)] Future Scheduled 1985-08-02 SHINGLES VACCINES ([address] [facility] - Test 00:00:00 of 2) [code = Medical Center SHINGLES VACCINES (1 of 2)] Future Scheduled 1952 DTAP/TDAP/TD VACCINES [facility] Test 00:00:00 (1 - Tdap) [code = Medical C enter DTAP/TDAP/TD VACCINES (1 - Tdap)] Future Scheduled 1945 COVID-19 VACCINE (1) [facility] - Test 00:00:00 [code = COVID-[address] VACCINE (1)] Encounters Start End Encounter Admission Attending Care Care Encounter Source Date/Time Date/Time Type Type Clinicians Facility Department ID 2020-12-08 2020-12-08 Outpatient IE AMRITAIE [id number] Memoria 14:30:00 14:30:00 04 kumar HendersonShirland 2020-12-07 2020-12-07 Outpatient AMRITAIE AMRITAIE [id number] Memkezia 10:45:00 10:45:00 03 kumar Philip 2020-09-26 2020-09-26 Outpatient [facility] [id number] [facility] 00:00:00 23:59:00 Arlyn maurice of Medicin e 2020-09-24 2020-09-24 Outpatient STLMLC STLMLC [id number] [facility]00 Maur[facility] Clin[facility] 2020-09-15 2020-09-15 Surgery [facility] [id number] 14:11:00 14:51:00 [place] [id number] [place] [id number] Surgical [id number] [place] 020 2020-09-15 2020-09-15 [facility] [id number] 12:25:00 14:50:00 Encounter Robin Fay Primitivo [id number] [place] [id number] Surgical [id number] [place] 07 2020-09-13 2020-09-13 Sticker Operator Maria De Jesus [facility] [id number] 14:29:04 14:44:04 Visit Lab Main [place] [id number] [place] [id number] Professio [id number] [address] 2020-09-13 2020-09-13 Laboratory Only, [facility] [id number] 14:17:45 14:32:45 Only Test [place] [id number] [place] [id number] [place] [id number] [facility] 2020-09-13 2020-09-13 Orders Doctor GABI [id number] 00:00:00 00:00:00 Only Unassigned, [place] [id number] [place] [facility] [id number] 2020-09-06 2020-09-07 Outpatient nullFlavo MNA [id number] Memoria 19:00:00 04:59:59 r Neurology 02 l Corwin [place] 2020-09-06 2020-09-06 Outpatient JAVAD ToribioSCHER MISCHER [id number] 14:00:00 23:59:59 Roland Jaycob 2020-09-06 2020-09-06 Outpatient MHIE MHIE [id number] Memoria 14:00:00 14:00:00 02 kumar [place] 2020-08-11 2020-08-11 Outpatient STLMLC [facility]C [id number] [facility] 2020-08-09 2020-08-10 Outpatient nullFlavo MNA [id number] Memoria 20:00:00 04:59:59 r Neurology 01 l Edmonson [place] 2020-08-09 2020-08-09 Outpatient JAVAD ToribioSCHESTRELLITA MISCHER [id number] 15:00:00 23:59:59 Roland Jaycob 2020-08-09 2020-08-09 Outpatient MHIE MHIE [id number] Memoria 15:00:00 15:00:00 01 kumar [place] 2020-08-03 2020-08-03 Outpatient STLMLC [facility]LMLC [id number] [facility] 2020-07-28 2020-07-28 Outpatient STLMLC [facility]LMLC [id number] [facility] 2020-07-19 2020-07-20 Outpatient nullFlavo MNA [id number] Memoria 19:30:00 04:59:59 r Neurology 00 l [facility] 2020-07-19 2020-07-19 Outpatient JAVAD ToribioSCHER MHMISCHER [id number] 14:30:00 23:59:59 Roland 00 Jaycob 2020-07-19 2020-07-19 Outpatient [facility] [id number] Memoria 14:30:00 14:30:00 00 l Philip 2020-07-13 2020-07-13 Outpatient [facility] [id number] [facility] 2020-07-05 2020-07-05 Outpatient [facility] [id number] [facility] 2020-06-29 2020-06-29 Out[facility] [id number] [facility] 2020-06-25 2020-06-25 Outpatient [facility] [id number] [facility] 2020-06-24 2020-06-24 Outpatient [facility] [id number] [facility] 2019-01-10 2019-01-20 Inpatient [facility] [id number] Memoria 03:18:46 00:08:00 r Philip 00 l [place] Lilly nn 2019-01-09 2019-01-19 Outpatient EDGAR Ag [facility] [id number] 175 21:18:46 18:08:00 Barbara 00 Flor 2019-01-10 2019-01-10 Inpatient E [facility] 7500 FB 15:16:00 01:33:00 Results Test Description Test Time Test Comments Results Result Comments Source POC-Glucose meter 2020-09-29 11:42:00 Test Item Value Reference Range Interpretation [facility] POC-Glucose Meter (test code = 106 mg/dL 70-110 : TESTED AT [facility] [address] [address]) [facility], [facility] 30: Estate Planning Director/Techni jenifer ID = [id number] for MANAV [facility] Lab Interpretation (test code = Normal 63130-1) [facility] [id number] 11:42:00 Test Item Value Reference Range Interpretation Comments POC-GLUCOSE METER 106 mg/dL 70-110 : TESTED A T [facility] [address] (BEAKER) (test code = [address] [place], 1538) [address]: Estate Planning Director/Techni jenifer ID = [id number] for ISIAH COLLINS POCT-GLUCOSE [id number] 07:59:00 Test Item Value Reference Range Interpretation Comments POC-GLUCOSE METER 98 mg/dL 70-110 : TESTED A T [facility] 6720 (BEAKER) (test code = AUDREY Whitley [facility], 1538) [address]: Estate Planning Director/Techni jenifer ID = [id number] for ISIAH MANRIQUEZ Basic metabolic [id number] 06:20:00 Test Item Value Reference Range Interpretation Comments Sodium (test code = 135 meq/L 136-145 L 2951-2) Potassium (test code = 3.6 meq/L 3.5-5.1 2823-3) Chloride (test code = 99 meq/L 98-107 2075-0) CO2 (test code = 28 meq/L 22-29 2028-9) BUN (test code = 18 mg/dL 7-21 3094-0) Creatinine (test code 0.79 mg/dL 0.57-1.25 = 2160-0) Glucose (test code = 102 mg/dL 70-105 2345-7) Calcium (test code = 9.4 mg/dL 8.4-10.2 49790-3) EGFR (test code = 93 mL/min/1.73 [place] [address]-0) NOT ACCURATE CREATININE CLEARANCE IN PREDICTING GLOMERULAR FILTRATION RATE . ESTIMATED GFR I S NOT APPLICABLE FOR DIALYSIS PATIENTS. GRABIEL (test code = GRABIEL) Estate Planning Director ID - BS Lab Interpretation Abnormal (test code = 30598-5) [facility] Test Item Value Reference Range Interpretation Comments Magnesium (test code = 2.1 mg/dL 1.6-2.6 51407-3) GRABIEL (test code = GRABIEL) Estate Planning Director ID - BS Lab Interpretation (test Normal code = 24008-1) [facility] [id number] 06:20:00 Test Item Value Reference Range Interpretation Comments SODIUM (BEAKER) 135 meq/L 136-145 L (test code = 381) POTASSIUM (BEAKER) 3.6 meq/L 3.5-5.1 (test code = 379) CHLORIDE (BEAKER) 99 meq/L 98-107 (test code = 382) CO2 (BEAKER) (test 28 meq/L 22-29 code = 355) BLOOD UREA NITROGEN 18 mg/dL 7-21 (BEAKER) (test code = 354) CREATININE (BEAKER) 0.79 mg/dL 0.57-1.25 (test code = 358) GLUCOSE RANDOM 102 mg/dL 70-105 (BEAKER) (test code = 652) CALCIUM (BEAKER) 9.4 mg/dL 8.4-10.2 (test code = 697) EGFR (BEAKER) (test 93 mL/min/1.73 ESTIMA VALENTINA GFR IS code = 1092) sq m NOT ACCURATE CREATININE CLEARANCE IN PREDICTING GLOMERULAR FILTRATION RATE . ESTIMATED GFR I S NOT APPLICABLE FOR DIALYSIS PATIEN TS. Estate Planning Director ID - [id number] 06:20:00 Test Item Value Reference Range Interpretation Comments MAGNESIUM (BEAKER) (test code = 2.1 mg/dL 1.6-2.6 627) Estate Planning Director ID - BSCBC (Hemogram only)2020-09-29 05:40:00 Test Item Value Reference Range Interpretation Comments WBC (test code = 6690-2) 3.9 See_Comment [A utomated message] The system Animating Touch generated this result transmitted ref erence range: 3.5 - 10 .5 K/L. The refe rence range was not u sed to interpret this result as normal/abnor mal. RBC (test code = 789-8) 4.16 See_Comment L [Au tomated message] The system Animating Touch generated this result transmitted ref erence range: 4.63 - 6 .08 M/L. The refe rence range was not u sed to interpret this result as normal/abnor mal. MCHC (test code = 786-4) 31.3 See_Comment L [A utomated message] The system Animating Touch generated this result transmitted ref erence range: 32.3 - 3 6.5 GM/DL. The refe rence range was not u sed to interpret this result as normal/abnor mal. Hematocrit (test code = 38.6 % 40.1-51 L 4544-3) MCV (test code = 787-2) 92.8 fL 79-92.2 H MCH (test code = 785-6) 29.1 pg 25.7-32.2 RDW (test code = 788-0) 15.2 % 11.6-14.4 H Platelets (test code = 156 See_Comment [Aut omated message] 777-3) The system Animating Touch generated this result transmitted ref erence range: 150 - 45 0 K/CU MM. The referen ce range was not u sed to interpret this result as normal/abnor mal. MPV (test code = 10.4 fL 9.4-12.4 70610-9) nRBC (test code = 413) 0 See_Comment [Aut omated message] The system Animating Touch generated this result transmitted ref erence range: 0 - 0 /1 00 WBC. The refere nce range was not u sed to interpret this result as normal/abnor mal. Lab Interpretation (test Abnormal code = 45247-8) [facility] (HEMOGRAM ONLY)2020-09-29 05:40:00 Test Item Value Reference Range Interpretation Comments WHITE BLOOD CELL COUNT (BEAKER) 3.9 K/ L 3.5-10.5 (test code = 775) RED BLOOD CELL COUNT (BEAKER) 4.16 M/ L 4.63-6.08 L (test code = 761) HEMOGLOBIN (BEAKER) (test code = 12.1 GM/DL 13.7-17.5 L 410) HEMATOCRIT (BEAKER) (test code = 38.6 % 40.1-51.0 L 411) MEAN CORPUSCULAR VOLUME (BEAKER) 92.8 fL 79.0-92.2 H (test code = 753) MEAN CORPUSCULAR HEMOGLOBIN 29.1 pg 25.7-32.2 (BEAKER) (test code = 751) MEAN CORPUSCULAR HEMOGLOBIN CONC 31.3 GM/DL 32.3-36.5 L (BEAKER) (test code = 752) RED CELL DISTRIBUTION WIDTH 15.2 % 11.6-14.4 H (BEAKER) (test code = 412) PLATELET COUNT (BEAKER) (test 156 K/CU MM 150-450 code = 756) MEAN PLATELET VOLUME (BEAKER) 10.4 fL 9.4-12.4 (test code = 754) NUCLEATED RED BLOOD CELLS 0 /100 WBC 0-0 (BEAKER) (test code = 413) POCT-GLUCOSE [id number] 22:41:00 Test Item Value Reference Range Interpretation Comments POC-GLUCOSE METER 97 mg/dL 70-110 : TESTED A T [facility] 67[address] (BEAKER) (test code = [address] [place], 1538) [address]: Estate Planning Director/Techni jenifer ID = [id number] for Stam per, [place] U/S, ABDOMINAL, [id number] 17:39:00Abdomen limited area? Add comment if clarification is needed.->Gall BladderReason for exam:->epigastric pain [facility] 1935 Sex: MFINAL REPORT TECHNIQUE: Grayscale ultrasound of the right abdomen. INDICATION: Epigastric pain. COMPARISON: None. FINDINGS: MIDLINE VASCULATURE: The visualized inferior vena cava is patent. Portal vein is patent and measures 0.7 cm in diameter. The maximum visualized aortic diameter is 1.6 cm. LIVER: The liver is normal in size and echogenicity with smooth contour. Liver measures 13 cm in length. No focal lesions. BILIARY:Gallbladder: No gallstones or sludge. No gallbladder wall thickening, pericholecystic fluid, or distention. Negative sonographic Biswas sign.Common bile duct measures 0.4 cm, within normal limits. No intrahepatic biliary ductal dilatation. PANCREAS: Incompletely visualized due to overlying bowel gas. PERITONEUM: No free fluid. RIGHT KIDNEY: The right kidney is normal in size and measures 8.7 cm. No hydronephrosis. No sonographically evident solid mass lesion. IMPRESSION:Unremarkable right upper quadrant ultrasound.. Signed: Nayely Alvarez Verified Date/Time: 09/28/2020 17:39:04 US abdomen [id number] 17:39:00Interface, External Ris In - 09/28/2020 5:44 PM CDTFINAL REPORT TECHNIQUE: Grayscale ultrasound of the right abdomen. INDICATION: Epigastric pain. COMPARISON: None. FINDINGS: MIDLINE VASCULATURE: The visualized inferior vena cava is patent. Portal vein is patent and measures 0.7 cm in diameter. The maximum visualized aortic diameter is 1.6 cm. LIVER: The liver is normal in size and echogenicity with smooth contour. Liver measures 13 cm in length. No focal lesions. BILIARY:Gallbladder: No gallstones or sludge. No gallbladder wall thickening, pericholecystic fluid, or distention. Negative sonographic Biswas sign.Common bile duct measures 0.4 cm, within normal limits. No intrahepatic biliary ductal dilatation. PANCREAS: Incompletely visualized due to overlying bowel gas. PERITONEUM: No free fluid. RIGHT KIDNEY: The right kidney is normal in size and measures 8.7 cm. No hydronephrosis. No sonographically evident solid mass lesion. IMPRESSION:Unremarkable right upper quadrant ultrasound.. Signed: Nayely Alvarez Verified Date/Time: 09/28/2020 17:39:04 El ectronically signed by: NAYELY ALVAREZ MD on 09/28/2020 05:39 [facility] AreaaPTT2021-08-03 11:24:00 Test Item Value Reference Range Interpretation Comments PTT (test code = 78.0 See_Comment H [Automated message] 21351-6) The system Animating Touch generated this result transmitted ref erence range: 22.5 - 3 6.0 seconds. The reference range was not used to int erpret this result as normal/abnormal . Lab Interpretation (test Abnormal code = 60970-6) [facility] 11:24:00 Test Item Value Reference Range Interpretation Comments PARTIAL THROMBOPLASTIN TIME 78.0 seconds 22.5-36.0 H (BEAKER) (test code = 760) POCT-GLUCOSE [id number] 07:58:00 Test Item Value Reference Range Interpretation Comments POC-GLUCOSE METER 102 mg/dL 70-110 : TESTED A T [facility] [address] (BEAKER) (test code = [place], [address]38) [address]: Estate Planning Director/Techni jenifer ID = [id number] for Alexandra casas (contract)Kalpesh BASIC METABOLIC [id number] 07:24:00 Test Item Value Reference Range Interpretation Comments SODIUM (BEAKER) 136 meq/L 136-145 (test code = 381) POTASSIUM (BEAKER) 3.3 meq/L 3.5-5.1 L (test code = 379) CHLORIDE (BEAKER) 99 meq/L 98-107 (test code = 382) CO2 (BEAKER) (test 29 meq/L 22-29 code = 355) BLOOD UREA NITROGEN 19 mg/dL 7-21 (BEAKER) (test code = 354) CREATININE (BEAKER) 0.76 mg/dL 0.57-1.25 (test code = 358) GLUCOSE RANDOM 91 mg/dL 70-105 (BEAKER) (test code = 652) CALCIUM (BEAKER) 9.4 mg/dL 8.4-10.2 (test code = 697) EGFR (BEAKER) (test 97 mL/min/1.73 ESTIMA VALENTINA GFR IS code = 1092) sq m NOT ACCURATE CREATININE CLEARANCE IN PREDICTING GLOMERULAR FILTRATION RATE . ESTIMATED GFR I S NOT APPLICABLE FOR DIALYSIS PATIEN TS. Estate Planning Director ID - JAIME [id number] 07:24:00 Test Item Value Reference Range Interpretation Comments MAGNESIUM (BEAKER) (test code = 2.1 mg/dL 1.6-2.6 627) Estate Planning Director ID - JAIME [facility] (HEMOGRAM ONLY)2020-09-28 06:59:00 Test Item Value Reference Range Interpretation Comments WHITE BLOOD CELL COUNT (BEAKER) 4.0 K/ L 3.5-10.5 (test code = 775) RED BLOOD CELL COUNT (BEAKER) 4.07 M/ L 4.63-6.08 L (test code = 761) HEMOGLOBIN (BEAKER) (test code = 12.0 GM/DL 13.7-17.5 L 410) HEMATOCRIT (BEAKER) (test code = 37.9 % 40.1-51.0 L 411) MEAN CORPUSCULAR VOLUME (BEAKER) 93.1 fL 79.0-92.2 H (test code = 753) MEAN CORPUSCULAR HEMOGLOBIN 29.5 pg 25.7-32.2 (BEAKER) (test code = 751) MEAN CORPUSCULAR HEMOGLOBIN CONC 31.7 GM/DL 32.3-36.5 L (BEAKER) (test code = 752) RED CELL DISTRIBUTION WIDTH 15.0 % 11.6-14.4 H (BEAKER) (test code = 412) PLATELET COUNT (BEAKER) (test 160 K/CU MM 150-450 code = 756) MEAN PLATELET VOLUME (BEAKER) 10.3 fL 9.4-12.4 (test code = 754) NUCLEATED RED BLOOD CELLS 0 /100 WBC 0-0 (BEAKER) (test code = 413) [id number] 01:15:00 Test Item Value Reference Range Interpretation Comments PARTIAL THROMBOPLASTIN TIME 32.7 seconds 22.5-36.0 (BEAKER) (test code = 760) POCT-GLUCOSE [id number] 16:51:00 Test Item Value Reference Range Interpretation Comments POC-GLUCOSE METER 107 mg/dL 70-110 : TESTED A T [facility] [address] (BEAKER) (test code = AUDREY Whit[address] [facility], 1538) [address]: Estate Planning Director/Techni jenifer ID = [id number] for Suzanne Huerta rd ECG 12 [id number] 15:06:28Interface, External Ris In - 09/27/2020 3:06 PM CDTVentricular Rate 74 BPMAtrial Rate 74 BPMP-R Interval 366 msQRS Duration 78 msQ-T Interval 394 msQTC Calculation(Bazett) 437 msP Allred 61 degreesR Allred 66 degreesT Allred 196 degreesSinus rhythm with 1st degree A-V blockMinimal ST depression and T wave inversion in I, II and aVL with mild ST elevation in aVR consider ischemiaAbnormal ECGNo previous ECGs availableConfirmed by MD LUZ, ANDREI ([id number]) on 09/27/2020 3:06:24 [facility]2D Echo W/Doppler(CW/PW/Color)2020-09-27 14:02:33Ejection FractionSLEH ECHO HEARTLAB MKCKMELVA CPACSInterface, External Ris In - 09/27/2020 2:02 PM CDTTransthoracic Echocardiography Report (TTE) Demographics Patient Name JERE RHODES Date ofStudy 09/27/2020 DARLIN Gender Male Visit Number [id number] Race Unknown RoomNumber 8A07 Number Date of 1935 Referring Imer Mantilla Physician Age 85 year(s) 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 All of the LV segments have low normal contractility .Estimated LVEF by qualitative assessment is lower limits of normal (50-55%) . Grade 2 diastolic dysfunction (moderately increased LA pressure). Unable to estimate peak systolic PA pressure; inadequate TR velocity signal. Signature Findings Left Ventricle The left ventricle is chamber size (by vol index) is normal (male - LVED vol - 34-74ml/m2). Normal LV wall thickness. All of the LV segments have low normal contractility . Estimated LVEF by qualitative assessment is lower limits of normal (50-55%) . Grade 2 diastolic dysfunction (moderately increased LA pressure). Left Atrium LA size is severely enlarged (>48ml/m2) . Right Ventricle Normal right ventricle structure and function. Right Atrium Right atrium dilated. Aortic Valve Mild AoV cusp thickening. Mild AoV cusp calcification. Mitral Valve Mild MV leaflet thickening.Mild mitral annular calcification. Trace mitral regurgitation. Tricuspid Valve A trace of tricuspid regurgitation. Unable to estimate peak systolicPA pressure; inadequate TR velocity signal. Pulmonic Valve Normal PVstructure and function by limited views and Doppler. Aorta Aortic root size (SInus of Valsalva diameter) is normal . Pericardium No evidence of pericardial effusion. IVC/SVC/PA/PV/Pleural The estimated RA pressure by IVC dynamics 5-10mmHg . Chambers/Structures Left Atrium LA Volume: 90.93 ml LA Area: 22.21 cm^2 LA Vol. Index: 49 ml/m^2 Left Ventricle LVIDd: 4.29 cm LVEDV:82.64 ml LV Septum Diastolic: 0.96 cm LV PW Diastolic: 1.04 cm LVEDV Hernandez's:63.52 ml LVESV Hernandez's:30.45 ml LVEF Hernandez's: 52.1 % LVEDVI: 34 ml/m^2 LVESVI: 16 ml/m^2 LVOT Diameter: 2.14 cm Right Ventricle RVOT VTI: 11.92 cm Aorta Ascending Aorta: 3.17 cm Doppler/Quantitative Measurements Mitral Valve MV Peak E-Wave: 0.73 m/s MV Peak A-Wave: 0.49 m/s E/A Ratio: 1.49 Peak Gradient: 2.14 mmHg Deceleration Time: 182.2 msec MV Lion. Peak: Aortic Valve Peak Velocity: 1.68 m/s Mean Velocity: 1.11 m/s Peak Gradient: 11.35 mmHg Mean Gradient: 5.85 mmHg AV Area (continuity): 1.84 cm^2 AV VTI: 31.18 cm AV DVI: 0.51 LVOT Peak Velocity: 0.83 m/s Peak Gradient: 2.74 mmHg Mean Velocity: 0.57 m/s Mean Gradient: 1.46 mmHg LVOT Diameter: 2.14 cm LVOT VTI: 15.93 cm LVOT Area: 3.6 cm^2 LVOT SV:57.27 ml LVOT CO: 3.61 l/min LVOT CI: 1.93 l/min/m^2CKaiser Foundation HospitalARS-CoV2/RT-PCR (Asymptomatic ONLY)2020-09-27 13:03:00 Test Item Value Reference Range Interpretation Comments SARS-COV2/RT-PCR Negative Not Detected, (test code = Negative, See 59601-4) external report for linked test SARS-COV-2 [facility] PERFORMING LAB (test code = 89226-9) GRABIEL (test code = Negative result for this GRABIEL) test determines that SARS-CoV-2 RNA was not present in the specimen above the Limit of Detection (LOD). However, Negative results do not preclude SARS-CoV-2 infection and should not be used as the sole basis for treatment or patient management decisions. Negative results must be combined with clinical observations, patient history, and epidemiological information. A false negative result may occur if a specimen is improperly collected, transported or handled. A false negative result should be considered if patient's recent exposures or clinical presentation indicate that COVID-19 (SARS-CoV-2) is likely and diagnostic tests for other causes of illness are negative. Re-testing should be considered in cases of suspected false negatives. The limit of detection for this assay is 800 copies/mL. This SARS CoV-2 test is a real-time RT-PCR test intended for the qualitative detection of nucleic acid from SARS-CoV-2 in a nasopharyngeal swab specimen collected from individuals suspected of COVID-19 by their healthcare provider. This test has not been Food and Drug Administration (FDA) cleared or approved. This is a modified version of an approved Emergency Use Authorization (EUA) and is in the process of review by the FDA. Once authorized by the FDA, the issued EUA will be effective until the declaration that circumstances exist justifying the authorization of the emergency use of in vitro diagnostic tests for detection and/or diagnosis of COVID-19 is terminated under Section 564(b)(2) of the Act or the EUA is revoked under Section 564(g) of the Act. Fact Sheet for Healthcare Providers:https://www.[employer]/sites/default/f carmen/product/documents/F act_Sheet_HC_Providers_L beo_AHDF-BgG-8.pdf Fact Sheet for Healthcare Patients:https://www.[employer]/sites/default/fi les/product/documents/Fa ct_Sheet_Patients_Lyra_S ARS-CoV-2.pdf Performing Laboratory:[facility] [place] [address] [facility] ([facility])2020-09-27 13:03:00 Test Item Value Reference Range Interpretation Comments SARS-COV2/RT-PCR (test Negative Not Detected, Negative, code = 3331220) See external report for linked test SARS-COV-2 PERFORMING LAB [facility] (test code = 5413055) Negative result for this test determines that SARS-CoV-2 RNA was not present in the specimen above the Limit of Detection (LOD). However, Negative results do not preclude SARS-CoV-2 infection and should not be used as the sole basis for treatment or patient management decisions. Negative results mustbe combined with clinical observations, patient history, and epidemiological information. A false negative result may occur if a specimen is improperly collected, transported or handled. A false negative result should be considered if patient's recent exposures or clinical presentation indicate that COVID-19 (SARS-CoV-2) is likely and diagnostic tests for other causes of illness are negative. Re-testing should be considered in cases of suspected false negatives.The limit of detection for this assay is 800 copies/mL.This SARS CoV-2 test is a real-time RT-PCR test intended for the qualitative detection of nucleic acid from SARS-CoV-2 in a nasopharyngeal swab specimen collected from individuals susp ected of COVID-19 by their healthcare provider.This test has not been Food and Drug Administration (FDA) cleared or approved. This is a modified version of an approved Emergency Use Authorization (EUA) and is in the process of review by the FDA. Once authorized by the FDA, the issued EUA will be effective until the declaration that circumstances exist justifying the authorization of the emergency use of in vitro diagnostic tests for detection and/or diagnosis of COVID-19 is terminated under Section 564(b)(2) of the Act or the EUA is revoked under Section 564(g) of the Act.Fact Sheet for Healthcare Providers:https://www.[employer]/sites/default/files/product/documents/Fact_Shee b_YF_Ywmtedcjk_Sdua_JRNX-KzN-3.pdfFact Sheet for Healthcare Patients:https://www.[employer]/sites/default/files/product/ documents/Askv_Uvvks_Jpxzfpqw_Kqml_IMVO-IvL-1.pdfPerforming Laboratory:[address], [place] [address]ZFFW-TXKGAJY METER 2020-09-27 11:29:00 Test Item Value Reference Range Interpretation Comments POC-GLUCOSE METER 124 mg/dL 70-110 H : Notified RN/MD: (HANNAH) (test code = TESTED AT [place] [address]38) [facility], [address]: Estate Planning Director/Techni jenifer ID = [id number] for PH DARRYL DORSEY POCT-GLUCOSE [id number] 08:54:00 Test Item Value Reference Range Interpretation Comments POC-GLUCOSE METER 135 mg/dL 70-110 H : TESTED A T [facility] [address] (HANNAH) (test code = AUDREY Whitley [facility], 1538) [address]: Estate Planning Director/Techni jenifer ID = [id number] for PH DARRYL DORSEY [id number] 05:55:00 Test Item Value Reference Range Interpretation Comments Ferritin (test code = 35.96 ng/mL 5-275 2276-4) GRABIEL (test code = GRABIEL) Estate Planning Director ID - CLARA Grajeda Lab Interpretation (test Normal code = 29129-3) [facility] Hospital[facility]itamin B12 and [id number] 05:55:00 Test Item Value Reference Range Interpretation Comments Vitamin B12 (test 578 pg/mL 213-816 code = 2132-9) Folate (test code = 18.00 ng/mL See_Comment [Automa valentina 2284-8) message] The system which generated this result transmit valentina reference range : >=7.00. The reference range was not used to interpret this result as normal/abnormal . GRABIEL (test code = GRABIEL) Estate Planning Director ID Rip Grajeda Lab Interpretation Normal (test code = 00677-8) [facility] HospitalFERRITIN2021-08-02 05:55:00 Test Item Value Reference Range Interpretation Comments FERRITIN (BEAKER) (test code = 35.96 ng/mL 5.00-275.00 361) Estate Planning Director ID - CLARA MVITAMIN B12 AND [id number] 05:55:00 Test Item Value Reference Range Interpretation Comments VITAMIN B12 578 pg/mL 213-816 (BEAKER) (test code = 774) FOLATE (BEAKER) 18.00 ng/mL See_Comment [Automated message] (test code = 362) The system which generated this result transmitted ref erence range: >=7.00. The reference range was not used to interpr et this result as normal/abnormal . Estate Planning Director ID - CLARA Natalie, TIBC, % sat. (without ferritin)2020-09-27 05:10:00 Test Item Value Reference Range Interpretation Comments Iron (test code = 2498-4) 37.0 ug/dL 40-160 L TIBC (test code = 2500-7) 404 ug/dL 250-450 Iron % Saturation (test 9 % 20-55 L code = 2502-3) GRABIEL (test code = GRABIEL) Estate Planning Director ID Rip Grajeda Lab Interpretation (test Abnormal code = 42604-1) [facility] HospitalIRON, TIBC, % SAT. (WITHOUT FERRITIN)2020-09-27 05:10:00 Test Item Value Reference Range Interpretation Comments IRON (BEAKER) (test code = 547) 37.0 ug/dL 40.0-160.0 L TOTAL IRON BINDING CAPACITY 404 ug/dL 250-450 (BEAKER) (test code = 769) IRON % SATURATION (2) (BEAKER) 9 % 20-55 L (test code = 2590) Estate Planning Director ID - CLARA MBASIC METABOLIC [id number] 04:39:00 Test Item Value Reference Range Interpretation Comments SODIUM (BEAKER) 139 meq/L 136-145 (test code = 381) POTASSIUM (BEAKER) 3.8 meq/L 3.5-5.1 (test code = 379) CHLORIDE (BEAKER) 103 meq/L 98-107 (test code = 382) CO2 (BEAKER) (test 28 meq/L 22-29 code = 355) BLOOD UREA NITROGEN 18 mg/dL 7-21 (BEAKER) (test code = 354) CREATININE (BEAKER) 0.83 mg/dL 0.57-1.25 (test code = 358) GLUCOSE RANDOM 116 mg/dL 70-105 H (BEAKER) (test code = 652) CALCIUM (BEAKER) 9.2 mg/dL 8.4-10.2 (test code = 697) EGFR (BEAKER) (test 88 mL/min/1.73 ESTIM[place] GFR IS code = 1092) sq m NOT ACCURATE CREATININE CLEARANCE IN PREDICTING GLOMERULAR FILTRATION RATE . ESTIMATED GFR I S NOT APPLICABLE FOR DIALYSIS PATIEN TS. Estate Planning Director ID - CLARA [id number] 04:39:00 Test Item Value Reference Range Interpretation Comments MAGNESIUM (BEAKER) (test code = 2.3 mg/dL 1.6-2.6 627) Estate Planning Director ID - CLARA [facility]BC (HEMOGRAM ONLY)2020-09-27 04:22:00 Test Item Value Reference Range Interpretation Comments WHITE BLOOD CELL COUNT (BEAKER) 4.7 K/ L 3.5-10.5 (test code = 775) RED BLOOD CELL COUNT (BEAKER) 3.94 M/ L 4.63-6.08 L (test code = 761) HEMOGLOBIN (BEAKER) (test code = 11.6 GM/DL 13.7-17.5 L 410) HEMATOCRIT (BEAKER) (test code = 36.6 % 40.1-51.0 L 411) MEAN CORPUSCULAR VOLUME (BEAKER) 92.9 fL 79.0-92.2 H (test code = 753) MEAN CORPUSCULAR HEMOGLOBIN 29.4 pg 25.7-32.2 (BEAKER) (test code = 751) MEAN CORPUSCULAR HEMOGLOBIN CONC 31.7 GM/DL 32.3-36.5 L (BEAKER) (test code = 752) RED CELL DISTRIBUTION WIDTH 15.0 % 11.6-14.4 H (BEAKER) (test code = 412) PLATELET COUNT (BEAKER) (test 151 K/CU MM 150-450 code = 756) MEAN PLATELET VOLUME (BEAKER) 10.0 fL 9.4-12.4 (test code = 754) NUCLEATED RED BLOOD CELLS 0 /100 WBC 0-0 (BEAKER) (test code = 413) POCT-GLUCOSE [id number] 23:19:00 Test Item Value Reference Range Interpretation Comments POC-GLUCOSE METER 109 mg/dL 70-110 : TESTED A T [facility] 6720 (BEAKER) (test code = [place], 1538) [address]: Estate Planning Director/Techni jenifer ID = [id number] for FRANCIA SANCHES [id number] 13:27:00 Test Item Value Reference Range Interpretation Comments PARTIAL THROMBOPLASTIN TIME 75.7 seconds 22.5-36.0 H (BEAKER) (test code = 760) Hemoglobin [id number] 08:25:00 Test Item Value Reference Range Interpretation Comments Hemoglobin A1C (test code = 4548-4) 6.7 % 4.3-6.1 H Lab Interpretation (test code = Abnormal 29144-3) [facility] [id number] 08:25:00 Test Item Value Reference Range Interpretation Comments HEMOGLOBIN A1C (BEAKER) (test code = 6.7 % 4.3-6.1 H 368) RAD, CHEST, 1 VIEW, NON [id number] 08:15:00Reason for exam:->shortness of breath Should this be performed at the bedside?->Yes [facility] 1935 Sex: MFINAL REPORT INDICATION: shortness of breath COMPARISON: None ANTON HNIQUE: Single frontal view of the chest. FINDINGS: Lungs and pleura: Clear lungs. No effusion.Heartand mediastinum: Normal heart size. Unremarkable mediastinal contours.Osseous structures: No acute abnormality.Other: None. IMPRESSION: No acute intrathoracic abnormality. Signed: Yaneth Giffordepradha Verified Date/Time: 09/26/2020 08:15:42 Reading Location: [address] Neuro Reading Room XR chest 1 view portable / [id number] 08:15:00 Interface, External Ris In - 09/26/2020 8:17 AM CDTFINAL REPORT INDICATION: shortness of breath COMPARISON: None TECHNIQUE: Single frontal view of the chest. FINDINGS: Lungs andpleura: Clear lungs. No effusion.Heart and mediastinum: Normal heart size. Unremarkable mediastinal c ontours.Osseous structures: No acute abnormality.Other: None. IMPRESSION: No acute intrathoracic abnormality. Signed: Yaneth Gifford Verified Date/Time: 09/26/2020 08:15:42 Reading Location: [address] Neuro [facility] [id number] 07:15:00 Test Item Value Reference Range Interpretation Comments ABO Grouping (test code = 2588) B Rh Factor (test code = 2589) POS [facility]Type [facility] screen, [id number] 06:19:00 Test Item Value Reference Range Interpretation Comments ABO/RH AUTOMATED (BEAKER) (test B POSITIVE code = 2260) Ab Scrn (test code = 890-4) NEGATIVE [facility] HospitalAPTT2021 05:20:00 Test Item Value Reference Range Interpretation Comments PARTIAL THROMBOPLASTIN TIME 111.9 seconds 22.5-36.0 H (BEAKER) (test code = 760) Patient on hep drippingComprehensive metabolic [id number] 05:17:00 Test Item Value Reference Range Interpretation Comments Protein, Total 6.7 See_Comment [Automated (test code = message] The 2885-2) system which generated this result transmit [place] reference range : 6.0 - 8.3 gm/dL . The reference range was not u sed to interpret th is result as normal/abnormal . Albumin (test code 3.6 g/dL 3.5-5 = 50811-9) Alkaline 102 U/L 40-150 Phosphatase (test code = 6768-6) Total Bilirubin 0.4 mg/dL 0.2-1.2 (test code = 1974-2) Sodium (test code = 138 meq/L 410-028 3288-2) Potassium (test 4.0 meq/L 3.5-5.1 code = 2823-3) Chloride (test code 102 meq/L 98-107 = 2075-0) CO2 (test code = 24 meq/L 22-29 2027-9) BUN (test code = 16 mg/dL 7-21 3094-0) Creatinine (test 0.91 mg/dL 0.57-1.25 code = 2160-0) Glucose (test code 103 mg/dL 70-105 = 2345-7) Calcium (test code 9.2 mg/dL 8.4-10.2 = 75729-3) AST (test code = 29 U/L 5-34 192-8) ALT (test code = 24 U/L 6-55 1742-6) EGFR (test code = 79 mL/min/1.73 [place] [address]-4) NOT ACCURATE CREATININE CLEARANCE IN PREDICTING GLOMERULAR FILTRATION RATE . ESTIMATED GFR I S NOT APPLICABLE FOR DIALYSIS PATIEN TS. GRABIEL (test code = Estate Planning Director ID - DB GRABIEL) [facility] HospitalLipid [id number] 05:17:00 Test Item Value Reference Range Interpretation Comments Triglycerides (test 90 mg/dL code = 2571-8) Cholesterol (test code 171 mg/dL = 2093-3) HDL (test code = 39 mg/dL 9) LDL Calculated (test 114 mg/dL code = 28427-2) GRABIEL (test code = GRABIEL) Triglyceride Reference Range: Low Risk <150 Borderline 150-199 High Risk 200-499 Very High Risk >=500 Cholesterol Reference Range: Low Risk <200 Borderline 200-239 High Risk >240 HDL Cholesterol Reference Range: Low Risk >=60 High Risk <40 LDL Cholesterol Reference Range: Optimal <100 Near Optimal 100-129 Borderline 130-159 High 160-189 Very High >=190 Estate Planning Director ID - DB [facility] [id number] 05:17:00 Test Item Value Reference Range Interpretation Comments TOTAL PROTEIN 6.7 gm/dL 6.0-8.3 (BEAKER) (test code = 770) ALBUMIN (BEAKER) 3.6 g/dL 3.5-5.0 (test code = 1145) ALKALINE PHOSPHATASE 102 U/L 40-150 (BEAKER) (test code = 346) BILIRUBIN TOTAL 0.4 mg/dL 0.2-1.2 (BEAKER) (test code = 377) SODIUM (BEAKER) (test 138 meq/L 136-145 code = 381) POTASSIUM (BEAKER) 4.0 meq/L 3.5-5.1 (test code = 379) CHLORIDE (BEAKER) 102 meq/L 98-107 (test code = 382) CO2 (BEAKER) (test 24 meq/L 22-29 code = 355) BLOOD UREA NITROGEN 16 mg/dL 7-21 (BEAKER) (test code = 354) CREATININE (BEAKER) 0.91 mg/dL 0.57-1.25 (test code = 358) GLUCOSE RANDOM 103 mg/dL 70-105 (BEAKER) (test code = 652) CALCIUM (BEAKER) 9.2 mg/dL 8.4-10.2 (test code = 697) AST (SGOT) (BEAKER) 29 U/L 5-34 (test code = 353) ALT (SGPT) (BEAKER) 24 U/L 6-55 (test code = 347) EGFR (BEAKER) (test 79 mL/min/1.73 ESTIM[place] GFR IS code = 1092) sq m NOT ACCURATE CREATININE CLEARANCE IN PREDICTING GLOMERULAR FILTRATION RATE . ESTIMATED GFR I S NOT APPLICABLE FOR DIALYSIS PATIEN TS. Estate Planning Director ID - DBLIPID [id number] 05:17:00 Test Item Value Reference Range Interpretation Comments TRIGLYCERIDES (BEAKER) (test code = 90 mg/dL 540) CHOLESTEROL (BEAKER) (test code = 171 mg/dL 631) HDL CHOLESTEROL (BEAKER) (test code 39 mg/dL = 976) LDL CHOLESTEROL CALCULATED (NETOAKER) 114 mg/dL (test code = 633) Triglyceride Reference Range: Low Risk <150 Borderline 150-199 High Risk 200-499 Very High Risk >=500Cholesterol Reference Range: Low Risk <200 Borderline 200-239 High Risk >240HDL Cholesterol Reference Range: Low Risk >=60 High Risk <40LDL Cholesterol Reference Range: Optimal <100 Near Optimal 100-129 Borderline 130-159 High 160-189 Very High >=190 Estate Planning Director ID - DBB-type Natriuretic Factor (BNP)2020-09-26 05:16:00 Test Item Value Reference Range Interpretation Comments BNP (test code = 45925-9) 686 pg/mL 0-100 H GRABIEL (test code = GRABIEL) Estate Planning Director ID - DB Lab Interpretation (test Abnormal code = 32461-9) [facility]B-[facility] NATRIURETIC FACTOR (BNP)2020-09-26 05:16:00 Test Item Value Reference Range Interpretation Comments B-TYPE NATRIURETIC PEPTIDE (HANNAH) 686 pg/mL 0-100 H (test code = 700) Estate Planning Director ID - DBHigh Sensitivity Troponin [id number] 05:14:00 Test Item Value Reference Range Interpretation Comments Troponin I HS 175 pg/ml See_Comment H [Automated (test code = message] The 83469-6) system which generated this result transmitted reference range : <=35. The reference range was not used to interpret this result as normal/abnormal . GRABIEL (test code = Estate Planning Director ID - GRABIEL) DBThe [employer] STAT High Sensitivity Troponin-I results should be used in conjunction with other diagnostic information such as ECG, clinical observations and information, and patient symptoms to aid in the diagnosis of AK. Lab Interpretation Abnormal (test code = 73946-2) [facility]IT[facility] TROPONIN [id number] 05:14:00 Test Item Value Reference Range Interpretation Comments HIGH SENSITIVITY 175 pg/ml See_Comment H [Automated message] TROPONIN I (test code The sy stem which = 4417569) generated this result transmitted ref erence range: <=35. Th e reference range was not used to int erpret this result as normal/abnormal . Estate Planning Director ID - DBThe [employer] STAT High Sensitivity Troponin-I results should be used in conjunctionwith other diagnostic information such as ECG, clinical observations and information, and patient symptoms to aid in the diagnosis of AK.Prothrombin time/[id number] 05:07:00 Test Item Value Reference Interpretation Comments Range Protime (test code = 15.6 See_Comment H [Autom ated 5902-2) message] The system which generated this result transmitted reference range : 11.9 - 14.2 seconds. The reference range was not used to interpret this result as normal/abnormal . INR (test code = 1.26 See_Comment [Automated 6301-6) message] The system which generated this result transmitted reference range : <=5.90. The reference range was not used to interpret this result as normal/abnormal . GRABIEL (test code = RECOMMENDED GRABIEL) COUMADIN/WARFARIN INR THERAPY RANGESSTANDARD DOSE: 2.0 - 3.0 Includes: PROPHYLAXIS for venous thrombosis, systemic embolization; TREATMENT for venous thrombosis and/or pulmonary embolus.HIGH RISK: Target INR is 2.5-3.5 for patients with mechanical heart valves. Lab Interpretation Abnormal (test code = 22717-9) [facility] HospitalPROTHROMBIN TIME/[id number] 05:07:00 Test Item Value Reference Range Interpretation Comments PROTIME (BEAKER) 15.6 seconds 11.9-14.2 H (test code = 759) INR (BEAKER) (test 1.26 See_Comment [Automat ed message] code = 370) The system Animating Touch generated this result transmitted ref erence range: <=5.90. The reference range was not used to int erpret this result as normal/abnormal . RECOMMENDED COUMADIN/WARFARIN INR THERAPY RANGESSTANDARD DOSE: 2.0 - 3.0 Includes: PROPHYLAXIS forvenous thrombosis, systemic embolization; TREATMENT for venous thrombosis and/or pulmonary embolus.HIGH RISK: Target INR is 2.5-3.5 for patients with mechanical heart valves.CBC with platelet count + automated diff 2020-09-26 04:49:00 Test Item Value Reference Range Interpretation Comments WBC (test code = 6690-2) 4.1 See_Comment [A utomated message] The system Animating Touch generated this result transmitted ref erence range: 3.5 - 10 .5 K/L. The refe rence range was not u sed to interpret this result as normal/abnor mal. RBC (test code = 789-8) 3.65 See_Comment L [Au tomated message] The system Animating Touch generated this result transmitted ref erence range: 4.63 - 6 .08 M/L. The refe rence range was not u sed to interpret this result as normal/abnor mal. MCHC (test code = 786-4) 31.2 See_Comment L [A utomated message] The system Animating Touch generated this result transmitted ref erence range: 32.3 - 3 6.5 GM/DL. The refe rence range was not u sed to interpret this result as normal/abnor mal. Hematocrit (test code = 34.6 % 40.1-51 L 4544-3) MCV (test code = 787-2) 94.8 fL 79-92.2 H MCH (test code = 785-6) 29.6 pg 25.7-32.2 RDW (test code = 788-0) 15.3 % 11.6-14.4 H Platelets (test code = 144 See_Comment L [Aut omated message] 777-3) The system [employer]imating Touch generated this result transmitted ref erence range: 150 - 45 0 K/CU MM. The referen ce range was not u sed to interpret this result as normal/abnor mal. MPV (test code = 10.3 fL 9.4-12.4 87569-5) nRBC (test code = 413) 0 See_Comment [Aut omated message] The system Animating Touch generated this result transmitted ref erence range: 0 - 0 /1 00 WBC. The refere nce range was not u sed to interpret this result as normal/abnor mal. % Neutros (test code = 60 % 429) % Lymphs (test code = 25 % 430) % Monos (test code = 11 % 431) % Eos (test code = 432) 4 % % Baso (test code = 437) 1 % # Neutros (test code = 2.43 See_Comment [Aut omated message] 670) The system Animating Touch generated this result transmitted ref erence range: 1.78 - 5 .38 K/L. The refe rence range was not u sed to interpret this result as normal/abnor mal. # Lymphs (test code = 1.01 See_Comment L [Auto mated message] 414) The system Animating Touch generated this result transmitted ref erence range: 1.32 - 3 .57 K/L. The refe rence range was not u sed to interpret this result as normal/abnor mal. # Monos (test code = 0.44 See_Comment [Autom ated message] 415) The system Animating Touch generated this result transmitted ref erence range: 0.30 - 0 .82 K/L. The refe rence range was not u sed to interpret this result as normal/abnor mal. # Eos (test code = 416) 0.16 See_Comment [Au tomated message] The system Animating Touch generated this result transmitted ref erence range: 0.04 - 0 .54 K/L. The refe rence range was not u sed to interpret this result as normal/abnor mal. # Baso (test code = 417) 0.02 See_Comment [A utomated message] The system Animating Touch generated this result transmitted ref erence range: 0.01 - 0 .08 K/L. The refe rence range was not u sed to interpret this result as normal/abnor mal. Immature 0 % 0-1 Granulocytes-Relative (test code = 2801) Lab Interpretation (test Abnormal code = 66128-8) [facility] W/PLT COUNT & AUTO [id number] 04:49:00 Test Item Value Reference Range Interpretation Comments WHITE BLOOD CELL COUNT (BEAKER) 4.1 K/ L 3.5-10.5 (test code = 775) RED BLOOD CELL COUNT (BEAKER) 3.65 M/ L 4.63-6.08 L (test code = 761) HEMOGLOBIN (BEAKER) (test code = 10.8 GM/DL 13.7-17.5 L 410) HEMATOCRIT (BEAKER) (test code = 34.6 % 40.1-51.0 L 411) MEAN CORPUSCULAR VOLUME (BEAKER) 94.8 fL 79.0-92.2 H (test code = 753) MEAN CORPUSCULAR HEMOGLOBIN 29.6 pg 25.7-32.2 (BEAKER) (test code = 751) MEAN CORPUSCULAR HEMOGLOBIN CONC 31.2 GM/DL 32.3-36.5 L (BEAKER) (test code = 752) RED CELL DISTRIBUTION WIDTH 15.3 % 11.6-14.4 H (BEAKER) (test code = 412) PLATELET COUNT (BEAKER) (test 144 K/CU MM 150-450 L code = 756) MEAN PLATELET VOLUME (BEAKER) 10.3 fL 9.4-12.4 (test code = 754) NUCLEATED RED BLOOD CELLS 0 /100 WBC 0-0 (BEAKER) (test code = 413) NEUTROPHILS RELATIVE PERCENT 60 % (BEAKER) (test code = 429) LYMPHOCYTES RELATIVE PERCENT 25 % (BEAKER) (test code = 430) MONOCYTES RELATIVE PERCENT 11 % (BEAKER) (test code = 431) EOSINOPHILS RELATIVE PERCENT 4 % (BEAKER) (test code = 432) BASOPHILS RELATIVE PERCENT 1 % (BEAKER) (test code = 437) NEUTROPHILS ABSOLUTE COUNT 2.43 K/ L 1.78-5.38 (BEAKER) (test code = 670) LYMPHOCYTES ABSOLUTE COUNT 1.01 K/ L 1.32-3.57 L (BEAKER) (test code = 414) MONOCYTES ABSOLUTE COUNT (BEAKER) 0.44 K/ L 0.30-0.82 (test code = 415) EOSINOPHILS ABSOLUTE COUNT 0.16 K/ L 0.04-0.54 (BEAKER) (test code = 416) BASOPHILS ABSOLUTE COUNT (BEAKER) 0.02 K/ L 0.01-0.08 (test code = 417) IMMATURE GRANULOCYTES-RELATIVE 0 % 0-1 PERCENT (BEAKER) (test code = 2801) URINE AND [id number] 00:22:00Yellow *NA*(01/15/19 6:22 PM)[facility]INE AND [id number] 00:22:00Clear (01/15/19 6:22 PM)[facility] [id number] 00:22:00 Test Item Value Reference Range Interpretation Comments UA Spec Grav (test code = UA Spec 1.023 1 Grav) [facility] [id number] 00:22:00 Test Item Value Reference Range Interpretation Comments UA pH (test code = UA pH) 5.0 1 5.0-8.0 [facility] [id number] 00:22:00Negative (01/15/19 6:22 PM) [facility] FSORP0868-23-26 00:22:00Negative *NA*(01/15/19 6:22 PM)[facility] BZWYI6771-07-11 00:22:00Negative *NA*(01/15/19 6:22 PM)[facility] [id number] 00:22:00Negative (01/15/19 6:22 PM) [facility] CPIOL2298-54-27 00:22:00Negative (01/15/19 6:22 PM) [facility] [id number] 00:22:00Negative (01/15/19 6:22 PM) [facility] QHAUV4203-60-12 00:22:00None Seen (01/15/19 6:22 PM) [facility] ZBTET7068-71-57 00:22:001[facility] INVDJ4749-32-09 00:22:001[facility] MkkflkoEONNBWBAWJLM5471-26-48 10:48:004.3 [facility] DheimxfUSFUNCYJTYSL3049-03-18 10:48:93756Fnuwtmkm HermannELECTROLYTES 2019-01-14 10:48:0026[facility] HbczyztFZCHWHIIVMSH5293-02-02 10:48:008.9[facility] DyqzqfvETXRRWWQOELW2691-90-89 10:48:0087[facility] WjsqbtfYWEHMAQXHA3039-02-56 10:48:002.6[facility] DczyfxgMSOBXBKERI3318-49-99 10:48:003.79[facility] AIKQTVZMUU9005-25-55 10:48:0011.1[facility] LnxmuszOXDQGFOJRH5848-95-56 10:48:00 34.9[facility] XdeyuhxBBEJJBWQLD6652-90-14 10:48:0092.0[facility]annHEMATOLOGY 2019-01-14 10:48:00 Test Item Value Reference Range Interpretation Comments MCH (test code = MCH) 29.3 pg 27.0-31.0 [facility] RzddhdzUOGPCCCDQH1452-47-01 10:48:0031.8[facility]annHEMATOLOGY 2019-01-14 10:48:0016.5[facility] XphkkizUVLLHJWFMA0774-17-52 10:48:44259Cnicyuzt UqjzyroBKBCOWLXZT2860-07-09 10:48:008.3[facility] ZwqagvkAGBYAKHSWM3895-64-92 10:48:0066.8[facility] EfxwvfpQCRECSLTSA0097-99-51 10:48:0012.6[facility] PYXDQMIBQQ0748-48-67 10:48:008.4[facility] BybrljeYQJERQHHOD1715-79-23 10:48:00 11.5[facility] IovymogIYLWOWCPHW4956-63-64 10:48:000.7[facility]annHEMATOLOGY 2019-01-14 10:48:001.7[facility] RcmxmgjTQLKJKYFOG0941-35-01 10:48:000.3[facility] DqwiowkHLMUAEBUOS9036-39-02 10:48:000.2[facility] XzaxflnIPUJEMWODF8037-58-53 10:48:000.3[facility] HermannCHEM FYCAK6414-89-70 10:48:002.3[facility] HermannCHEM FOYXX0631-59-35 10:48:003.0[facility] UxbcgthEWZYVYEHWLTS7284-35-59 10:48:0010.3 [facility] GjakdpdGJRXPYTQBRIY0459-72-76 10:48:82865Idboorgf HermannELECTROLYTES 2019-01-14 10:48:0015[facility] JipqpsdDGFPRQWUEAGB7746-36-64 10:48:000.69[facility] VpkeswmRCGUVZONZEOH7521-77-36 10:48:03853Asmpwwsp HermannCHEM UHGVE2391-35-97 10:15:002.0[facility] HermannCHEM FCSOU8478-95-99 10:15:003.6[facility] HermannCHEM HBDSF2220-89-31 10:15:87528Jerjvxzh HermannCHEM NBJFT9681-54-29 10:15:009 [facility]annCHEM VHJDF5575-08-41 10:15:000.71[facility]annCHEM PANEL 2019-01-13 10:15:21999Bzxeadvb HermannCHEM SSUAS6187-99-09 10:15:004.2[facility] HermannCHEM MCHOU3196-85-62 10:15:44420Rzvobqmg HermannCHEM SGQTW4380-69-13 10:15:0027[facility] HermannCHEM ERLLS2153-02-45 10:15:0010.2[facility] HermannCHEM MYBXG1676-47-23 10:15:008.9[facility] HermannCHEM CFUEF0034-89-45 10:15:0086 [facility] CaccnxgWCMASYGQXP6203-61-50 10:15:0063.6[facility]annHEMATOLOGY 2019-01-13 10:15:0019.5[facility] XorytxsECHCZSWKZS5445-41-73 10:15:0011.0[facility] BkvnpyeJTIBWQZWAC2217-69-99 10:15:005.2[facility] MbysywfAOVIQQLLSR3273-30-41 10:15:000.7[facility] OvrunkzMLTUCPAYRU4348-48-01 10:15:001.4[facility] ELWXQVDILM4789-05-92 10:15:000.4[facility] MtoeooaOLRFMVAARX0658-41-57 10:15:000.2 [facility] TsvgfyxEFKULWAYEH6008-53-79 10:15:000.1[facility]annHEMATOLOGY 2019-01-13 10:15:002.2[facility] WaqiqyzMRSHRXRJLK0862-08-50 10:15:003.60[facility] WxzojuvYWONADRIDM3681-97-76 10:15:0010.8[facility] DpsrrhsDOSSJVZEPP1648-29-13 10:15:0033.4[facility] WmchhttORMTCXMRWE6397-51-43 10:15:0092.9[facility] KMYHQFBWGH1309-12-43 10:15:00 Test Item Value Reference Range Interpretation Comments MCH (test code = MCH) 30.1 pg 27.0-31.0 [facility] IwxgdfpUNCLLPSNQH4559-98-30 10:15:0032.4[facility]annHEMATOLOGY 2019-01-13 10:15:0017.0[facility] ZihzahjCVKBPBCVRA8384-41-38 10:15:37452Ygmxghzi RdlotqhZIDJTJVDTW1675-84-10 10:15:008.0[facility] HermannCHEM RCMLC3267-61-98 10:43:99705Hrhseqpb HermannCHEM RCEUZ7079-80-08 10:43:007[facility] HermannCHEM RZKFI3159-68-63 10:43:000.69[facility] HermannCHEM XAANZ2029-03-28 10:43:57058 [facility]annCHEM JTYNL4829-47-70 10:43:004.3[facility] HermannCHEM PANEL 2019-01-12 10:43:90162Pnxzteap HermannCHEM IEECL9136-96-09 10:43:0026[facility] HermannCHEM STBWI8028-77-58 10:43:008.5[facility] HermannCHEM OBHRK8869-07-31 10:43:0087[facility] HermannCHEM YONLS7975-67-97 10:43:0011.3[facility] HermannCHEM OIBDK6786-10-96 10:43:001.9[facility] HermannCHEM ZYAHE7717-83-63 10:43:002.8 [facility] ZqpedwaINWPLAXRRU5785-26-21 10:43:003.7[facility] HermannHEMATOLOGY 2019-01-12 10:43:003.68[facility] HpgbwyqFMHVQYTNNQ0538-98-80 10:43:0011.0[facility] VkwgubrUOHWVVNWIP3076-08-90 10:43:0033.9[facility] MksjzmnJKADPZAWCX6353-71-44 10:43:0092.1[facility] BcrmezoEMRRFZMRNI5549-47-05 10:43:00 Test Item Value Reference Range Interpretation Comments MCH (test code = MCH) 30.0 pg 27.0-31.0 [facility] UkmouyjOPNRMTQYCW4062-88-71 10:43:0032.6[facility]annHEMATOLOGY 2019-01-12 10:43:0016.7[facility] PwrsroaTEYOLOCDXY1690-39-14 10:43:55121Erxitcpr AqjmkhyLPYXMHMYQC2496-51-80 10:43:008.2[facility] DivettaXQDTJAQPEX9222-70-35 10:43:0076.8[facility] IbqgcesXPSPOBBHKJ5559-64-47 10:43:009.9[facility] SFYLTNEHVI8116-56-28 10:43:0011.8[facility] NrslursUKWCQHLFCN1967-61-14 10:43:00 1.2[facility] SlvmosiWUEGSRGLXM7983-33-15 10:43:000.3[facility]annHEMATOLOGY 2019-01-12 10:43:002.8[facility] DfqvlzzMMHEVIHVSN2324-58-87 10:43:000.4[facility] XxwifheSGQHBHTFNC2973-29-90 10:43:000.4[facility]annBACTERIAL - SEROLOGY 2019-01-10 09:33:00Urine *NA*(01/10/19 3:33 AM)[facility] - FXJDWQLH7030-60-38 09:33:00Negative (01/10/19 3:33 AM)[facility] NQTUK6443-54-13 09:33:00Yellow *NA*(01/10/19 3:33 AM)[facility] VSCKH9998-87-41 09:33:00Clear (01/10/19 3:33 AM)[facility] STOOL 2019-01-10 09:33:00 Test Item Value Reference Range Interpretation Comments UA Spec Grav (test code = UA Spec 1.014 1 Grav) [facility] [id number] 09:33:00 Test Item Value Reference Range Interpretation Comments UA pH (test code = UA pH) 5.0 1 5.0-8.0 [facility] [id number] 09:33:00Negative (01/10/19 3:33 AM) [facility] [id number] 09:33:00Negative *NA*(01/10/19 3:33 AM)[facility] CNIWV4669-28-89 09:33:00Trace *ABN*(01/10/19 3:33 AM)[facility] [id number] 09:33:00Negative *NA*(01/10/19 3:33 AM)[facility] OOBWH0518-57-09 09:33:00Negative (01/10/19 3:33 AM) [facility] KFMAW6369-05-73 09:33:00Negative (01/10/19 3:33 AM) [facility] LHSDI7237-39-21 09:33:00Negative (01/10/19 3:33 AM) [facility] QBDFZ3465-49-37 09:33:00None Seen (01/10/19 3:33 AM) [facility] LABPF3694-15-24 09:33:00<1[facility] DPYKG7697-22-13 09:33:00<1[facility]annVIRAL - IZROZDJX8531-63-83 07:15:00 Negative (01/10/19 1:15 AM)[facility]annVIRAL - CRBVGHIC6134-76-60 07:15:00 Negative (01/10/19 1:15 AM)[facility]annCARDIAC LPJGMJO3172-88-25 05:21:00 0.09[facility]annCHEM DCMTA5674-51-34 05:21:007.1[facility]annCHEM PANEL 2019-01-10 05:21:003.1[facility]annCHEM ONMVL3598-77-73 05:21:0027[facility]annCHEM NQLUW1714-34-41 05:21:0027[facility]annCHEM XDJTO8550-55-71 05:21:80031Ymgwkwon HermannCHEM IQDKY3115-24-85 05:21:000.5[facility]annCHEM VZQRB4871-79-50 05:21:00 Test Item Value Reference Range Interpretation Comments B/C Ratio (test code = B/C Ratio) 17 1 6-25 [facility]annCHEM [id number] 05:21:004.0[facility] 2019-01-10 05:21:00 Test Item Value Reference Range Interpretation Comments A/G Ratio (test code = A/G Ratio) 0.8 1 0.7-1.6 [facility] [id number] 05:[facility]000.9[facility] 2019-01-10 05:21:00 Test Item Value Reference Range Interpretation Comments INR (test code = INR) 1.08 1 0.85-1.17 [id number] 05:21:00 Test Item Value Reference Range Interpretation Comments PT (test code = PT) 13.8 s 12.0-14.7 [id number] 05:21:00 Test Item Value Reference Range Interpretation Comments PTT (test code = PTT) 23.3 s 22.9-35.8 [facility] [id number] 05:21:000.2[facility]
[2020-10-13 14:06] LABS: Basophils % 1.3 % (0-1.3); Hematocrit 37.3 % (39.6-49.0); Lymphocytes % 23.2 % (15.3-44.8); MPV 8.1 fL (7.6-11.3); RBC Red Blood Cell Count 4.15 M/uL (4.33-5.43)
--- NOTE | 2020-10-13 14:07 | RAD REPORT ---
EXAM DESCRIPTION: CT - Ct Stroke Brain Wo Cont - 10/13/2020 1:41 pm CLINICAL HISTORY: R arm numbness COMPARISON: Head Brain Wo Cont dated 03/21/2020 TECHNIQUE: Axial 5 millimeter thick images of the head were obtained without IV contrast. All CT scans are performed using dose optimization technique as appropriate and may include automated exposure control or mA/KV adjustment according to patient size. FINDINGS: No intracranial hemorrhage, mass, or cerebral edema. No acute infarction identifiable. No cortical edema or sulcal effacement. Moderately prominent for age atrophy and chronic ischemic change s are present. Ventricles are in proportion. Arterial and physiologic calcifications are present. No extra-axial fluid collections. Castillo matter-white matter differentiation is preserved. Visualized portions of the mastoid air cells, paranasal sinuses, and orbits are unremarkable. IMPRESSION: No CT evidence of acute intracranial process. No identifiable change from the March 17 study. Patient has moderate severity atrophy and chronic ischemic change. Chronic ischemic changes can mask nonhemorrhagic acute infarction. MR brain followup can be obtained if there is ongoing concern for acute ischemia.
[2020-10-13 14:10] LABS: Protime INR 1.15
[2020-10-13 14:20] LABS: Magnesium 2.4 mg/dL (1.8-2.4); Troponin (Emerg Dept Use Only) 0.11 ng/mL (0.0-0.045)
[2020-10-13 14:22] LABS: Potassium 3.7 mmol/L (3.5-5.1)
--- NOTE | 2020-10-13 14:32 | RAD REPORT ---
EXAM DESCRIPTION: RAD - Chest Single View - 10/13/2020 2:00 pm CLINICAL HISTORY: stroke protocol COMPARISON: September 25 TECHNIQUE: AP portable chest image was obtained 10/13/2020 2:00 pm . FINDINGS: No new focal lung parenchymal process identifiable. Chronic interstitial opacities are pre sent. Lung parenchymal pattern is not clearly different from the prior study. Cardiac silhouette is s imilar to comparison. No vascular engorgement. No measurable pleural effusion and no pneumothorax. No acute bony abnormality seen. No acute aortic findings suspected. IMPRESSION: No acute cardiopulmonary process. Mild chronic interstitial lung disease matches the September 25 study.
--- NOTE | 2020-10-13 15:37 | RAD REPORT ---
EXAM DESCRIPTION: MRI - Brain Wo Cont - 10/13/2020 3:06 pm CLINICAL HISTORY: TIA COMPARISON: Brain Wo Cont dated 08/05/2020; Ct Stroke Brain Wo Cont dated 10/13/2020 TECHNIQUE: Sagittal T1-weighted images were obtained along with axial PD, heavily T2-weighted and T2 -FLAIR images. Axial DWI and ADC mapping sequences were also obtained along with coronal heavily T2-w eighted images. FINDINGS: No intracranial hemorrhage, mass or acute infarction. There is no edema or shift of midlin e structures. No extra-axial fluid collections. Castillo-matter/white matter junction is preserved. Signa l voids are seen as a normal finding in the major intracranial vessels. Patient has mild for age atro phy with ventricles in proportion. Chronic ischemic changes are present in the periventricular white matter of each cerebral hemisphere. Brainstem, thalamus and basal ganglia tissues spared any measurab le chronic ischemic change. No globe or orbital content abnormality. No sella or supra sella abnormality. Mastoid air cells and paranasal sinuses are clear. IMPRESSION: No acute infarction or other acute intracranial finding identifiable. Atrophy and chronic ischemic changes similar to comparison.
--- NOTE | 2020-10-13 15:40 | ER ---
Nurse's Notes [facility] Name: Isiah Gaytan Age: 85 yrs Sex: Male : 1935 Arrival Date: 10/13/2020 Time: 13:04 Bed 6 Private MD: Diagnosis: Transient cerebral ischemic attack, unspecified Presentation: 10/13 13:28 Chief complaint: Patient states: R arm numbness that began 2 hours ago. Coronavirus ss screen: Client denies travel out of the [place] in the last 14 days. Ebola Screen: Patient denies exposure to infectious person. Patient denies travel to an Ebola-affected area in the 21 days before illness onset. Initial Sepsis Screen: Does the patient meet any 2 criteria? No. Patient's initial sepsis screen is negative. Does the patient have a suspected source of infection? No. Patient's initial sepsis screen is negative. Risk Assessment: Do you want to hurt yourself or someone else? Patient reports no desire to harm self or others. Onset of symptoms was October 13, 2020. 13:28 Method Of Arrival: EMS: [facility] ss 13:28 Acuity: MARIOLA 2 ss Historical: - Allergies: 13:29 Azithromycin; ss 13:29 Codeine; ss 13:29 Keflex; ss - PMHx: 13:29 Atrial fibrillation; CHF; High Cholesterol; Hypertension; Myocardial infarction; ss - PSHx: 13:29 cardiac stents; ss - Immunization history:: Adult Immunizations up to date. - Social history:: Smoking status: Patient denies any tobacco usage or history of. Screenin:11 Abuse screen: Denies threats or abuse. Denies injuries from another. Nutritional hb screening: No deficits noted. Tuberculosis screening: No symptoms or risk factors identified. Fall Risk None identified. Assessment: 13:54 Reassessment: Pt back from CT. sv 14:11 General: Appears in no apparent distress. Behavior is calm, cooperative. Pain: Denies hb pain. Neuro: Level of Consciousness is awake, alert, obeys commands, Oriented to person, place, time, situation. Cardiovascular: Patient's skin is warm and dry. Respiratory: Respiratory effort is even, unlabored, Respiratory pattern is regular, symmetrical. GI: No signs and/or symptoms were reported involving the gastrointestinal system. : No signs and/or symptoms were reported regarding the genitourinary system. EENT: No signs and/or symptoms were reported regarding the EENT system. Derm: Skin is pink, warm \T\ dry. Musculoskeletal: No signs and/or symptoms reported regarding the musculoskeletal system. 15:30 Reassessment: Patient appears in no apparent distress at this time. Patient and/or hb family updated on plan of care and expected duration. Pain level reassessed. Patient is alert, oriented x 3, equal unlabored respirations, skin warm/dry/pink. 16:30 Reassessment: Patient appears in no apparent distress at this time. Patient and/or hb family updated on plan of care and expected duration. Pain level reassessed. Patient is alert, oriented x 3, equal unlabored respirations, skin warm/dry/pink. Vital Signs: 13:28 Pulse 61; Resp 16; Pulse Ox 97% on R/A; ss 13:33 Temp 97.4(TE); ss 14:00 BP 118 / 71; Pulse 56; Resp 16; Pulse Ox 98% ; sv 15:22 BP 124 / 69; Pulse 63; Resp 16; Pulse Ox 98% on R/A; sv 16:19 BP 114 / 72; Pulse 60; Resp 16; Pulse Ox 98% ; sv NIH Stroke Scale Scores: 15:28 NIHSS Score: 1 [facility] ED Course: 13:04 Patient arrived in ED. ds1 13:29 Triage completed. ss 13:29 Arm band placed on right wrist. ss 13:32 Dharmesh Jaffe MD is Attending Physician. rn 13:34 Kp Whitfield [facility]. jr8 13:35 Zhanna Hill, KATELYNN is Primary Nurse. hb 13:41 CT Stroke Brain w/o Contrast In Process Unspecified. EDMS 13:53 Patient has correct armband on for positive identification. Bed in low position. Call sv light in reach. Side rails up X2. monitor car operator on. Pulse ox on. NIBP on. Door closed. Head of bed elevated. 13:58 Inserted saline lock: 20 gauge in right antecubital area, using aseptic technique. hb Blood collected. 13:59 Stroke CXR 1 View In Process Unspecified. EDMS 14:58 MRI - Brain Wo Cont In Process Unspecified. EDMS 15:39 Ronn Wilson MD is Hospitalizing Provider. jr8 Administered Medications: No medications were administered Outcome: 15:39 Decision to Hospitalize by Provider. jr8 10/14 17:32 Patient left the ED. NIH Stroke Scale - NIH Stroke Score Date: 10/13/2020 Time: 15:28 Total Score = 1 1a. Level of Consciousness (LOC) - 0(Alert) 1b. Level of Consciousness (LOC) (Month \T\ Age) - 0(Both) 1c. LOC Commands (Open \T\ Closes Eyes/Cover Stripper) - 0(Both) 2. Best Gaze (Lateral Gaze Paresis) - 0(Normal) 3. Visual Field Loss - 0(No visual loss) 4. Facial Palsy - 0(Normal) 5a. Left Arm: Motor (10-second hold) - 0(No drift) 5b. Right Arm: Motor (10-second hold) - 0(No drift) 6a. Left Leg: Motor (5-second hold - always test supine) - 0(No drift) 6b. Right Leg: Motor (5-second hold - always test supine) - 0(No drift) 7. Limb Ataxia (finger/nose \T\ heel/mayers - test with eyes open) - 0(Absent) 8. Sensory Loss (pinprick arms/legs/face) - 1(Mild to moderate loss) 9. Best Language: Aphasia (description/naming/reading) - 0(No aphasia) 10. Dysarthria (speech clarity - read or repeat words) - 0(Normal) 11. Extinction and Inattention (visual/tactile/auditory/spatial/personal) - 0(No abnormality) Initials: jr8 Signatures: Dispatcher [employer] Mindi Rogers RN RN sv Sanford, Demi ds1 Dharmesh Jaffe MD MD rn Smirch, Shelby, RN RN ss Roszak, Josh, PA PA jr8 Zhanna Hill RN RN
--- NOTE | 2020-10-13 15:41 | EDPHYS ---
Physician Documentation [facility] Name: Isiah Gaytan Age: 85 yrs Sex: Male : 1935 Arrival Date: 10/13/2020 Time: 13:04 Bed 6 Private MD: ED Physician Dharmesh Jaffe HPI: 10/13 15:27 This 85 yrs old Male presents to ER via EMS with complaints of Weakness right jr8 arm. 15:27 Onset: The symptoms/episode began/occurred acutely, today. jr8 15:28 The patient's problem is reported as weakness, in the right upper extremity. Duration: jr8 This was a single incident. Context: occurred at home, occurred while the patient was at rest. The symptoms are alleviated by nothing. The symptoms are aggravated by nothing. Associated signs and symptoms: Pertinent positives: numbness. Severity of symptoms: At their worst the symptoms were moderate in the emergency department the symptoms have resolved and did so just prior to arrival. Patient's baseline: Neuro: alert and fully oriented, Motor: no deficits, Ambulation: walks without assistance, Speech: normal. The patient has not experienced similar symptoms in the past. The patient has not recently seen a physician. This is an 85-year-old male patient who presented to the emergency room after experiencing sudden onset of right arm weakness about 2 hours prior to arrival that has resolved within about 1 hour's period of time. Stated that he is now having slight numbness to the right arm. Denies any other symptoms at this time. Denies history of strokes in the past but does have atrial fibrillation history along with MO and congestive heart failure. Stated that it had been well controlled and had just recently started back on his sotalol but had not been taking his Plavix or Eliquis.. Historical: - Allergies: 13:29 Azithromycin; ss 13:29 Codeine; ss 13:29 Keflex; ss - PMHx: 13:29 Atrial fibrillation; CHF; High Cholesterol; Hypertension; Myocardial infarction; ss - PSHx: 13:29 cardiac stents; ss - Immunization history:: Adult Immunizations up to date. - Social history:: Smoking status: Patient denies any tobacco usage or history of. ROS: 15:28 Eyes: Negative for injury, pain, redness, and discharge, ENT: Negative for injury, jr8 pain, and discharge, Neck: Negative for injury, pain, and swelling, Cardiovascular: Negative for chest pain, palpitations, and edema, Respiratory: Negative for shortness of breath, cough, wheezing, and pleuritic chest pain, Abdomen/GI: Negative for abdominal pain, nausea, vomiting, diarrhea, and constipation, Back: Negative for injury and pain, MS/Extremity: Negative for injury and deformity, Skin: Negative for injury, rash, and discoloration. 15:28 Neuro: Positive for numbness, weakness. Exam: 15:28 Radiologist reports: No acute findings jr8 15:28 Constitutional: This is a well developed, well nourished patient who is awake, alert, and in no acute distress. Eyes: Pupils equal round and reactive to light, extra-ocular motions intact. Lids and lashes normal. Conjunctiva and sclera are non-icteric and not injected. Cornea within normal limits. Periorbital areas with no swelling, redness, or edema. ENT: Nares patent. No nasal discharge, no septal abnormalities noted. Tympanic membranes are normal and external auditory canals are clear. Oropharynx with no redness, swelling, or masses, exudates, or evidence of obstruction, uvula midline. Mucous membranes moist. Neck: Trachea midline, no thyromegaly or masses palpated, and no cervical lymphadenopathy. Supple, full range of motion without nuchal rigidity, or vertebral point tenderness. No Meningismus. Cardiovascular: Regular rate and rhythm with a normal S1 and S2. No gallops, murmurs, or rubs. Normal PMI, no JVD. No pulse deficits. Respiratory: Lungs have equal breath sounds bilaterally, clear to auscultation and percussion. No rales, rhonchi or wheezes noted. No increased work of breathing, no retractions or nasal flaring. Abdomen/GI: Soft, non-tender, with normal bowel sounds. No distension or tympany. No guarding or rebound. No evidence of tenderness throughout. Back: No spinal tenderness. No costovertebral tenderness. Full range of motion. Skin: Warm, dry with normal turgor. Normal color with no rashes, no lesions, and no evidence of cellulitis. MS/ Extremity: Pulses equal, no cyanosis. Neurovascular intact. Full, normal range of motion. Neuro: Awake and alert, GCS 15, oriented to person, place, time, and situation. Cranial nerves II-XII grossly intact. Motor strength 5/5 in all extremities. Sensory grossly intact. Cerebellar exam normal. Normal gait. Vital Signs: 13:28 Pulse 61; Resp 16; Pulse Ox 97% on R/A; ss 13:33 Temp 97.4(TE); ss 14:00 BP 118 / 71; Pulse 56; Resp 16; Pulse Ox 98% ; sv 15:22 BP 124 / 69; Pulse 63; Resp 16; Pulse Ox 98% on R/A; sv 16:19 BP 114 / 72; Pulse 60; Resp 16; Pulse Ox 98% ; sv NIH Stroke Scale Scores: 15:28 NIHSS Score: 1 jr8 MDM: 13:32 Patient medically screened. rn 15:28 Data reviewed: vital signs, nurses notes, lab test result(s), EKG, radiologic studies, [facility] CT scan, MRI, plain films. Data interpreted: Pulse oximetry: on room air is 98 %. Interpretation: normal. Counseling: I had a detailed discussion with the patient and/or guardian regarding: the historical points, exam findings, and any diagnostic results supporting the discharge/admit diagnosis, lab results, radiology results, the need for further work-up and treatment in the hospital. 10/13 13:30 Order name: Basic Metabolic Panel; Complete Time: 14:35 10/13 13:30 Order name: CBC with Diff; Complete Time: 14:08 10/13 13:30 Order name: Protime (+inr); Complete Time: 14:12 10/13 13:30 Order name: Ptt, Activated; Complete Time: 14:12 10/13 13:35 Order name: Troponin (emerg Dept Use Only); Complete Time: 14:35 [facility] 10/13 13:35 Order name: Magnesium; Complete Time: 14:35 [facility] 10/13 13:35 Order name: BNP; Complete Time: 14:35 [facility] 10/13 14:03 Order name: Glucose, Ancillary Testing; Complete Time: 14:08 EDMN 10/13 16:19 Order name: COVID-19 : Document "Date of Symptom Onset" if Symptomatic. [place] 10/13 18:41 Order name: Troponin I; Complete Time: 18:43 EDMS 10/13 18:41 Order name: T4,Total; Complete Time: 18:43 EDMN 10/13 18:41 Order name: Thyroid Stimulating Hormone; Complete Time: 18:43 [facility] 10/13 19:05 Order name: SARS-COV-2 RT PCR [facility] 10/14 02:03 Order name: Basic Metabolic Panel [facility] 10/13 13:30 Order name: CT Stroke Brain w/o Contrast; Complete Time: 14:09 ss 10/13 13:30 Order name: Stroke CXR 1 View; Complete Time: 14:35 10/13 13:30 Order name: EKG; Complete Time: 13:31 10/13 13:30 Order name: Accucheck; Complete Time: 14:12 ss 10/13 13:30 Order name: Cardiac monitoring; Complete Time: 14:12 10/13 13:30 Order name: EKG - Nurse/Tech; Complete Time: 14:12 10/13 14:10 Order name: MRI - Brain Wo Cont; Complete Time: 15:39 jr8 10/13 16:26 Order name: Diet Regular; Complete Time: 16:26 mt 10/13 16:36 Order name: CONS Physician Consult; Complete Time: 22:46 [facility] 10/14 02:03 Order name: Phosphorus [facility] 10/14 02:03 Order name: Lipid Profile [facility] 10/14 02:03 Order name: Magnesium [facility] 10/14 02:03 Order name: Troponin I [facility] 10/14 02:05 Order name: CBC with Automated Diff [facility] 10/14 08:02 Order name: US [facility] 10/14 11:14 Order name: Troponin I [facility] 10/13 13:30 Order name: IV Saline Lock; Complete Time: 14:12 10/13 13:30 Order name: Labs collected and sent; Complete Time: 14:12 10/13 13:30 Order name: NPO; Complete Time: 14:12 ss 10/13 13:30 Order name: O2 Per Protocol; Complete Time: 14:12 10/13 13:30 Order name: O2 Sat Monitoring; Complete Time: 14:12 ss Administered Medications: No medications were administered Disposition: 17:04 Co-signature as Attending Physician, Dharmesh Jaffe MD I agree with the assessment and rn plan of care. Attestation: The patient's history, exam findings, diagnostics, and a summary of any interventions or procedures was reviewed in detail with Kp MAGALLANES. Disposition Summary: 10/13/20 15:39 Hospitalization Ordered Hospitalization Status: Observation jr8 Provider: Ronn Wilson Condition: Stable jr8 Problem: new jr8 Symptoms: have improved jr8 Bed/Room Type: Standard jr8 Location: [facility] ER HOLD(10/13/20 17:10) hb Room Assignment: ERHOLD-(10/13/20 17:10) hb Diagnosis - Transient cerebral ischemic attack, unspecified jr8 Forms: - Medication Reconciliation Form jr8 - SBAR form jr8 NIH Stroke Scale - NIH Stroke Score Date: 10/13/2020 Time: 15:28 Total Score = 1 1a. Level of Consciousness (LOC) - 0(Alert) 1b. Level of Consciousness (LOC) (Month \\T\\ Age) - 0(Both) 1c. LOC Commands (Open \\T\\ Closes Eyes/Yard Warehouse Worker) - 0(Both) 2. Best Gaze (Lateral Gaze Paresis) - 0(Normal) 3. Visual Field Loss - 0(No visual loss) 4. Facial Palsy - 0(Normal) 5a. Left Arm: Motor (10-second hold) - 0(No drift) 5b. Right Arm: Motor (10-second hold) - 0(No drift) 6a. Left Leg: Motor (5-second hold - always test supine) - 0(No drift) 6b. Right Leg: Motor (5-second hold - always test supine) - 0(No drift) 7. Limb Ataxia (finger/nose \\T\\ heel/mayers - test with eyes open) - 0(Absent) 8. Sensory Loss (pinprick arms/legs/face) - 1(Mild to moderate loss) 9. Best Language: Aphasia (description/naming/reading) - 0(No aphasia) 10. Dysarthria (speech clarity - read or repeat words) - 0(Normal) 11. Extinction and Inattention (visual/tactile/auditory/spatial/personal) - 0(No abnormality) Initials: [facility] Signatures: Dispatcher [employer] EDMS Dharmesh Jaffe MD MD rn Smirch, Shelby, RN RN ss Roszak, Josh, PA PA jr8 Zhanna Hill RN RN Corrections: (The following items were deleted from the chart) 17:10 15:39 Telemetry/MedSurg (observation) jr8 17:10 15:39 jr8 hb 17:10 17:10 HLD6 hb hb
--- NOTE | 2020-10-13 16:23 | EKG ---
Test Date: 2020-10-13 Test Time: 13:49:47 [employer] Extension Worker: YASSINE MEASUREMENT RESULTS: Intervals: Rate: 59 NC: QRSD: 82 QT: 436 QTc: 431 [place]: P: NC: QRS: 66 T: 185 INTERPRETIVE STATEMENTS: Atrial fibrillation with slow ventricular response ST & T wave abnormality, consider inferior ischemia or digitalis effect Abnormal ECG Compared to ECG 09/25/2020 22:17:44 ST (T wave) deviation now present Possible ischemia now present Myocardial infarct finding no longer present Electronically Signed On 10-13-20 16:22:41 CDT by Pollo Navarro
[2020-10-13] MEDS ORDERED: ACETAMINOPHEN 500 MG TAB PO PRN (17:09)
[2020-10-13] MEDS ORDERED: ONDANSETRON 4 MG/2 ML VIAL IV PRN (17:09)
[2020-10-13 17:14] VITALS: BMI 24.4
[2020-10-13 18:40] LABS: T4,Total 9.2 ug/dL (4.5-12.1); Thyroid Stimulating Hormone 1.63 uIU/mL (0.360-3.740); Troponin I 0.12 ng/mL (0.0-0.045)
[2020-10-13] MEDS ORDERED: ATORVASTATIN 20 MG TAB PO SCH (21:00)
[2020-10-13] MEDS ORDERED: CARBIDOPA/LEVODOPA 25/100 TAB PO SCH (21:00)
[2020-10-13] MEDS: APIXABAN 5 MG TABLET PO SCH (21:00)
--- NOTE | 2020-10-13 21:51 | CON ---
Date of Consultation: 10/13/2020 Time: 1899 Reason: TIA. History: 85-year-old gentleman with history of atrial fibrillation and neuropathy and Parkinson dise ase. We have seen him for Parkinson disease. He is on Sinemet and he has had some improvement in hi s Parkinson's symptoms on that medication. The patient had really notice that his atrial fibrillatio n had been problematic recently and per the patient after discussion with one of his other physicians , he stopped his sotalol and stopped his Eliquis and about a week ago, he started again noticing inte rmittent heart fluttering and he thinks that it was atrial fibrillation, so he got back on his sotalo l, but not back on the Eliquis and then today about 10 o'clock in the morning he had abrupt onset of right arm paralysis and paresthesias. He is unable to move the right arm whatsoever. He denies dysa rthria. He has prominent gait difficulties from the Parkinson's. He was sitting when the episode simpson ppened. He actually had to lift the right arm up with the left and when he did, he said it felt like it was someone else's arm. EMS was summoned. He was brought to the emergency department and while here in the emergency department his symptoms have resolved completely. He has normal full use of th e arm at this juncture. CT scan of the brain, moderate to severe atrophy. Urgent brain MRI given the presentation atrophy. Diffusion-weighted images are negative. EKG, atrial fibrillation. Eliquis has been restarted, but I think prudent for him to be observed overnight at minimum, consultation was re quested. Past Medical History: As alluded to. Medication: Ultram, sotalol 80 b.i.d., Lasix, Sinemet 25/100 t.i.d., Eliquis 5 b.i.d. Allergies: KEFLEX, CODEINE, ZOSYN. Social History: The patient is . He is still independent with basic activities of daily kelly ng, although he does not walk well. Review of Systems: General: Good health. Eyes: Denies. Ears, Nose, Throat: Denies. Cardiovascular: As alluded to. Pulmonary: Negative. GI: Negative. : Negative. Musculoskeletal: As noted. Neurologic: As noted. Psychiatric: Negative. Endocrine: Negative. Hematologic: Back on Eliquis. Physical Examination: Vital Signs: 97.8, 62, 17, 112/69, saturation 96%. Heart: Irregularly irregular. No carotid bruits. Lungs: Clear. Abdomen: Soft. Bowel sounds present. General: He is awake, alert, oriented. HEENT: Moderate masking with decreased blink rate. Ocular motion full without nystagmus. Visual fi elds full to confrontation bilaterally. Facial strength and sensation are normal. Tongue protrudes evenly. Soft palate elevates symmetrically bilaterally. Extremity: Strength is full. He has resting tremor on the left. Cogwheeling and bradykinesia on th e left, moderate; mild cogwheeling and bradykinesia on the right. Sensation decreased symmetrically distally. Reflexes trace. Toes are downgoing. Cerebellar: Demonstrates no ataxia. Gait: Not tested. Laboratory Data: Pertinent labs, MRI as noted. EKG as noted. White count 4.4, hemoglobin 12.2, anh telets 175. Troponin 0.12[place] [address]. TSH normal. SARS COVID normal/negative. Creatin ine 1.07, GFR 65. Impression: Transient ischemic attack. Plan: 1.Restart Eliquis. Check echocardiogram, lipids. Check carotid Doppler. 2.Parkinson disease. Continue Sinemet 2500 t.i.d. Thank you for the consult. We will continue to follow with you. JAS/JAYLEEN Voice ID: [id number] Report ID: [id number]
[2020-10-13] MEDS ORDERED: APIXABAN 5 MG TABLET ONE (21:58)
[2020-10-13] MEDS ORDERED: ATORVASTATIN 20 MG TAB ONE (21:58)
[2020-10-13] MEDS ORDERED: NA CHLORIDE 0.9% 1,000 ML ONE (21:58)
[2020-10-13] MEDS: NA CHLORIDE 0.9% 1,000 ML IV SCH (22:13)
[2020-10-13] MEDS: TRAMADOL HCL 50 MG TAB PO PRN (22:30)
[2020-10-13] MEDS ORDERED: TRAMADOL HCL 50 MG TAB ONE (22:50)
[2020-10-13] MEDS ORDERED: CARBIDOPA/LEVODOPA 25/100 TAB ONE (23:25)
[2020-10-14 01:53] LABS: Absolute Lymphocytes (CBC) 0.8 K/uL (0.7-4.9); Basophils % 0.9 % (0-1.3); Hematocrit 31.1 % (39.6-49.0); Lymphocytes % 20.7 % (15.3-44.8); RBC Red Blood Cell Count 3.48 M/uL (4.33-5.43)
[2020-10-14 02:02] LABS: Magnesium 2.2 mg/dL (1.8-2.4); Phosphorus 3.4 mg/dL (2.5-4.9); Potassium 3.4 mmol/L (3.5-5.1)
[2020-10-14] MEDS: NA CHLORIDE 0.9% 1,000 ML IV SCH (06:29)
--- NOTE | 2020-10-14 08:01 | RAD REPORT ---
EXAM DESCRIPTION: USCarotid Artery Bilateral10/14/2020 1:02 am CLINICAL HISTORY: tia COMPARISON: None FINDINGS: The velocity of the right internal carotid artery equals 94 cm/sec. The right ICA/CCA rati o 1. The velocity of the left internal carotid artery equals 106 cm/sec. The left ICA/CCA ratio 1. Mild plaque is present within the common and internal carotid arteries. Plaque within the right exter nal carotid artery results in a high-grade stenosis The vertebral arteries demonstrate antegrade flow IMPRESSION: Mild plaque within the common and internal carotid arteries without evidence of a hemody namically significant stenosis NASCET criteria used. Mild 0-49% stenosis Moderate 50-69% stenosis Severe 70-99% stenosis
[2020-10-14] MEDS ORDERED: CARBIDOPA/LEVODOPA 25/100 TAB PO SCH (09:00)
[2020-10-14] MEDS: APIXABAN 5 MG TABLET PO SCH (09:00)
[2020-10-14] MEDS ORDERED: CLOPIDOGREL 75 MG TABLET PO SCH (09:00)
[2020-10-14] MEDS ORDERED: CLOPIDOGREL 75 MG TABLET ONE (10:23)
[2020-10-14] MEDS ORDERED: APIXABAN 5 MG TABLET ONE (10:23)
[2020-10-14] MEDS ORDERED: NA CHLORIDE 0.9% 1,000 ML ONE (11:18)
[2020-10-14] MEDS: TRAMADOL HCL 50 MG TAB PO PRN (12:56)
[2020-10-14 12:57] VITALS: O2SAT 98
[2020-10-14] MEDS ORDERED: TRAMADOL HCL 50 MG TAB ONE (13:17)
--- NOTE | 2020-10-14 13:29 | ECHO ---
HEIGHT: 5 ft 9 in WEIGHT: 165 lb 5.547 oz DATE OF STUDY: 10/14/[address]: Tobi Whitfield 2-DIMENSIONAL: YES M.MODE: YES DOPPLER: YES COLOR FLOW: YES TDS: NO PORTABLE: NO DEFINITY: NO BUBBLE STUDY: NO DIAGNOSIS: STROKE CARDIAC HISTORY: CATHERIZATION: YES SURGERY: NO PROSTHETIC VALVE: NO PACEMAKER: NO MEASUREMENTS (cm) DIASTOLIC (NORMALS) SYSTOLIC (NORMALS) IVSd 1.2 (0.6-1.2) LA Diam 3.2 (1.9-4.0) LVEF 55-60% LVIDd 3.6 (3.5-5.7) LVIDs 2.2 (2.0-3.5) %FS 38% LVPWd 1.2 (0.6-1.2) Ao Diam 2.6 (2.0-3.7) 2 DIMENSIONAL ASSESSMENT: RIGHT ATRIUM: NORMAL LEFT ATRIUM: NORMAL RIGHT VENTRICLE: NORMAL LEFT VENTRICLE: NORMAL TRICUSPID VALVE: NORMAL MITRAL VALVE: MITRAL ANNULAR CALCIFICATION, MILD MITRAL REGURGITATION PULMONIC VALVE: PULMONIC REGURGITATION AORTIC VALVE: HEAVILY CALCIFIED PERICARDIAL EFFUSION: NONE AORTIC ROOT: NORMAL LEFT VENTRICULAR WALL MOTION: NORMAL. DOPPLER/COLOR FLOW: SEE BELOW. COMMENTS: NORMAL LEFT VENTRICULAR EJECTION FRACTION 55-60%. NORMAL WALL MOTION. HEAVILY CALCIFIED AORTIC VALVE LIKELY SIGNIFICANT AORTIC STENOSIS, RECOMMEND LEFT HEART CATH TO CROSS AORTIC VALVE TO EVALUATE GRADIENT. TECHNOLOGIST: LEIDA BURGOS
[2020-10-14 16:29] VITALS: BP 142/72; TEMP 98
--- NOTE | 2020-10-14 17:09 | SS ---
Hospital Course: The patient presented to the emergency room on 10/13. He stated he even sitting in his chair suddenly lost the use of his right arm, had to use another arm to lift it and noted with s ome numbness and tingling in the same time. He states he thought it lasted about 3 hours. By the ti me he was seen in the ER, it was basically resolved. However, since he has an elevated troponin and significant history of vascular events, we decided to admit him from observation. During his hospita stay, he had minimal symptoms related to his arm. Remainder of his studies were compatible what he has in the recent past including a workup in [place] a couple of weeks ago with a carotid reasonable , MRI and CT compatible with his age; however, his echo did show some significant aortic findings and suggestion of possible procedure in this case. He also has AFib with a slow response. There has be en some usage of Eliquis in the past and there was possibility of doing Watchman procedure coming up, but also considered. He sees neurologist for his parkinsonism and he was seen during his hospital stay. Some adjustments made to his medicine. When seen in the ER HOLD today, he is seen b ack to baseline both mentally and physically and is therefore discharged to follow up with me in the next day for dressing changes from his wound and can correlate his cardiological events with neurolog ical events. I suspect he had a TIA in this episode. Discharged in fair condition. Final Diagnoses: Transient ischemic attack, aortic stenosis, coronary artery disease, parkinsonism. HR/MODL Voice ID: [id number] Report ID: [id number]
== END 2020-10-14 17:00 | disposition home or self-care (01) ==
LOC: ER 13:03 → ERHOLD 16:42
PROVIDERS: ADMIT Family Medicine; ATTEND Family Medicine
DX: G45.9 Transient cerebral ischemic attack, unspecified (principal); I48.91 Unspecified atrial fibrillation; G20 Parkinson's disease; I25.10 Atherosclerotic heart disease of native coronary artery without angina pectoris; I35.0 Nonrheumatic aortic (valve) stenosis; G62.9 Polyneuropathy, unspecified; I11.0 Hypertensive heart disease with heart failure; I50.9 Heart failure, unspecified; E78.00 Pure hypercholesterolemia, unspecified; I25.2 Old myocardial infarction; R29.701 NIHSS score 1; Z95.5 Presence of coronary angioplasty implant and graft; Z20.822 Contact with and (suspected) exposure to COVID-19; Z88.6 Allergy status to analgesic agent; Z88.3 Allergy status to other anti-infective agents; Z88.1 Allergy status to other antibiotic agents
CPT/HCPCS: 93005; 93306; 85025 ×2; 80048 ×2; 36415; 83735 ×2; 84100; 85610; 80061; 82947; 85730; 84436; 84443; 84484 ×4; 83880; 70450; 71045; 93880; 70551; 94760 ×2; 99284; U0003; J7030 ×2; G0378 ×3

== ENCOUNTER 2021-01-06 11:09 | Inpatient (IN) | payer OTHER ==
--- NOTE | 2021-01-06 11:40 | RAD REPORT ---
EXAM DESCRIPTION: RAD - Chest Single View - 01/06/2021 11:25 am CLINICAL HISTORY: CHEST PAIN COMPARISON: Chest Single View dated 10/13/2020; Chest Single View dated 09/25/2020; Chest Pa And Lat ( 2 Views) dated 08/31/2020; Chest Single View dated 08/30/2020 FINDINGS: Lines: None. Lungs: No evidence of edema or pneumonia. Pleural: No significant pleural effusions or pneumothorax. Cardiac: Mild cardiomegaly. Bones: No acute fractures. Other: Surgical clips in the right axilla. IMPRESSION: No acute cardiopulmonary disease.
[2021-01-06 11:50] LABS: Absolute Lymphocytes (CBC) 0.8 K/uL (0.7-4.9); Basophils % 0.7 % (0-1.3); Hematocrit 33.7 % (39.6-49.0); MPV 8.3 fL (7.6-11.3); RBC Red Blood Cell Count 3.75 M/uL (4.33-5.43)
[2021-01-06 11:55] LABS: Protime INR 1.97
[2021-01-06 12:06] LABS: Albumin 3.3 g/dL (3.4-5.0); Bilirubin Direct 0.2 mg/dL (0-0.2); Bilirubin Total 0.6 mg/dL (0.2-1.0); Magnesium 2.2 mg/dL (1.8-2.4); Potassium 3.4 mmol/L (3.5-5.1); Troponin (Emerg Dept Use Only) 0.16 ng/mL (0.0-0.045)
--- NOTE | 2021-01-06 12:40 | EDPHYS ---
Physician Documentation [facility] Name: Isiah Gaytan Age: 85 yrs Sex: Male : 1935 Arrival Date: 01/06/2021 Time: 11:12 Bed 5 Private MD: Ronn Wilson ED Physician Maco Slaughter HPI: 01/06 12:29 This 85 yrs old Male presents to ER via Wheelchair with complaints of Chest ma2 Pain. 12:29 The patient or guardian reports chest pain that is located primarily in the substernal ma2 area. Onset: gradually, 1 day(s) ago. Associated signs and symptoms: Pertinent negatives: cough, lower extremity pain, near syncope, palpitations, shortness of breath, vomiting. Severity of pain: At its worst the pain was moderate in the emergency department the pain has improved. The patient has experienced similar episodes in the past. Historical: - Allergies: 11:34 Azithromycin; jd3 11:34 Codeine; jd3 11:34 Keflex; jd3 - Home Meds: 11:34 aspirin 81 mg Oral chew 1 tab once daily [Active]; atorvastatin Oral [Active]; jd3 carbidopa-levodopa 25-100 mg Oral tab [Active]; Eliquis 5 mg Oral tab 1 tab 2 times per day [Active]; furosemide 20 mg Oral tab 1 tab 2 times per day [Active]; Eliquis Oral [Active]; sotalol 40 mg Oral tab 1 tab 2 times per day [Active]; Tramadol Oral [Active]; - PMHx: 11:34 High Cholesterol; Hypertension; Atrial fibrillation; CHF; Myocardial infarction; jd3 - PSHx: 11:34 cardiac stents; jd3 - Immunization history:: Adult Immunizations up to date, Client reports having NOT received the Covid vaccine. - Social history:: Smoking status: Patient denies any tobacco usage or history of. Patient/guardian denies using alcohol, street drugs, The patient lives with family. - Family history:: not pertinent. ROS: 12:29 Constitutional: Negative for fever, chills, and weight loss. ma2 12:29 All other systems are negative. Exam: 12:29 Constitutional: This is a well developed, well nourished patient who is awake, alert, ma2 and in no acute distress. Head/Face: Normocephalic, atraumatic. Eyes: Pupils equal round and reactive to light, extra-ocular motions intact. Lids and lashes normal. Conjunctiva and sclera are non-icteric and not injected. Cornea within normal limits. Periorbital areas with no swelling, redness, or edema. ENT: Nares patent. No nasal discharge, no septal abnormalities noted. Tympanic membranes are normal and external auditory canals are clear. Oropharynx with no redness, swelling, or masses, exudates, or evidence of obstruction, uvula midline. Mucous membranes moist. Neck: Trachea midline, no thyromegaly or masses palpated, and no cervical lymphadenopathy. Supple, full range of motion without nuchal rigidity, or vertebral point tenderness. No Meningismus. Chest/axilla: Normal chest wall appearance and motion. Nontender with no deformity. No lesions are appreciated. Cardiovascular: Regular rate and rhythm with a normal S1 and S2. No gallops, murmurs, or rubs. Normal PMI, no JVD. No pulse deficits. Respiratory: Lungs have equal breath sounds bilaterally, clear to auscultation and percussion. No rales, rhonchi or wheezes noted. No increased work of breathing, no retractions or nasal flaring. Abdomen/GI: Soft, non-tender, with normal bowel sounds. No distension or tympany. No guarding or rebound. No evidence of tenderness throughout. Skin: Warm, dry with normal turgor. Normal color with no rashes, no lesions, and no evidence of cellulitis. MS/ Extremity: Pulses equal, no cyanosis. Neurovascular intact. Full, normal range of motion. Neuro: Awake and alert, GCS 15, oriented to person, place, time, and situation. Cranial nerves II-XII grossly intact. Motor strength 5/5 in all extremities. Sensory grossly intact. Cerebellar exam normal. Normal gait. Vital Signs: 11:35 BP 140 / 80; Pulse 61; Resp 20 S; Temp 97.5(O); Pulse Ox 99% on R/A; Weight 70.31 kg jd3 (R); Height 5 ft. 9 in. (175.26 cm) (R); Pain 9/10; 14:02 BP 148 / 73; Pulse 51; Resp 20 S; Pulse Ox 99% on R/A; jd3 11:35 Body Mass Index 22.89 (70.31 kg, 175.26 cm) jd3 MDM: 11:17 Patient medically screened. ma2 12:29 Differential diagnosis: abnormal EKG, acute myocardial infarction, anxiety, coronary ma2 artery disease stable angina. HEART Score: History: Moderately Suspicious (1), ECG: Non specific repolarization disturbance / LBTB / PM (1), Age: > or = 65 years (2), Risk Factors: > or = 3 Risk factors for atherosclerotic disease (2), Troponin: > 1 and < 3 x normal limit (1), Total Score = 6. The patient was given aspirin in the Emergency Department. Data reviewed: vital signs, nurses notes. 01/06 11:13 Order name: Basic Metabolic Panel; Complete Time: 12:30 ma2 01/06 11:13 Order name: CBC with Diff; Complete Time: 12:00 ma2 01/06 11:13 Order name: LFT's; Complete Time: 12:30 ma2 01/06 11:13 Order name: Magnesium; Complete Time: 12:30 ma2 01/06 11:13 Order name: NT PRO-BNP; Complete Time: 12:30 ma2 01/06 11:13 Order name: PT-INR; Complete Time: 12:30 ma2 01/06 11:13 Order name: Troponin (emerg Dept Use Only); Complete Time: 12:30 ma2 01/06 12:27 Order name: SARS-COV-2 RT PCR EDMS 01/06 12:45 Order name: Basic Metabolic Panel EDME 01/06 12:45 Order name: Basic Metabolic Panel EDME 01/06 12:45 Order name: CBC with Automated Diff EDMS 01/06 12:45 Order name: CBC with Automated Diff EDMS 01/06 12:45 Order name: Troponin I EDMS 01/06 11:13 Order name: XRAY Chest (1 view); Complete Time: 12:00 ma2 01/06 11:13 Order name: EKG; Complete Time: 11:14 ma2 01/06 12:45 Order name: CONS Physician Consult EDMS 01/06 12:45 Order name: Regular EDMS 01/06 12:45 Order name: EKG Electrocardiogram EDMS 01/06 12:45 Order name: EKG Electrocardiogram EDMS 01/06 12:45 Order name: EKG Electrocardiogram EDMS 01/06 12:45 Order name: Troponin I EDMS 01/06 12:45 Order name: Troponin I EDMS 01/06 12:45 Order name: Troponin I EDMS 01/06 11:13 Order name: Cardiac monitoring; Complete Time: 11:41 ct2 01/06 11:13 Order name: EKG - Nurse/Tech; Complete Time: 11:41 [facility] 01/06 11:13 Order name: IV Saline Lock; Complete Time: 11:41 [facility] 01/06 11:13 Order name: Labs collected and sent; Complete Time: 11:41 [facility] 01/06 11:13 Order name: O2 Per Protocol; Complete Time: 11:41 [facility] 01/06 11:13 Order name: O2 Sat Monitoring; Complete Time: 11:41 [facility] 01/06 12:45 Order name: EKG Electrocardiogram EDMS Administered Medications: 13:50 Not Given (Other Intervention Used): Lovenox (enoxaparin) 70 mg Sub-Q once jd3 13:50 Drug: morphine 4 mg Route: IVP; Site: right antecubital; jd3 14:10 Follow up: Response: No adverse reaction; RASS: Alert and Calm (0) jd3 13:50 Drug: Zofran (Ondansetron) 4 mg Route: IVP; Site: right antecubital; jd3 14:10 Follow up: Response: No adverse reaction jd3 13:51 Drug: Aspirin Chewable Tablet 324 mg Route: PO; jd3 14:10 Follow up: Response: No adverse reaction jd3 14:01 Not Given (Other Intervention Used): Potassium Chloride 10 mEq IV at calculated rate jd3 once; administer over 1-2 hours 14:01 Drug: Klor-Con (potassium) Effervescent Tablet 25 mEq Route: PO; jd3 14:15 Follow up: Response: No adverse reaction jd3 Disposition: 12:29 Critical Care: not applicable. ma2 Disposition Summary: 01/06/21 12:40 Hospitalization Ordered Hospitalization Status: Inpatient Admission ma2 Provider: Ronn Wilson Location: Telemetry/MedSurg (Inpatient) ma2 Condition: Stable ma2 Problem: new ma2 Symptoms: are unchanged ma2 Bed/Room Type: Standard [facility] Room Assignment: 216(01/06/21 14:04) jd3 Diagnosis - Subsequent non-ST elevation (NSTEMI) myocardial infarction ma2 Forms: - Medication Reconciliation Form ma2 - SBAR form ma2 Critical care time excluding procedures: 12:29 Critical care time: Bedside Care: 30 minutes, Consultation: 5 minutes, Family ma2 Intervention: 5 minutes. Total time: 40 minutes Signatures: Dispatcher [employer] Cristiano Gonzalez RN RN jd3 Maco Slaughter MD MD ma2 Bridgett Rivera Corrections: (The following items were deleted from the chart) 12:28 12:13 CORONAVIRUS+MR.LAB.BRZ ordered. EDMS EDMS 13:22 12:40 ma2 eb 14:04 13:22 228 oliver jd3
--- NOTE | 2021-01-06 12:40 | ER ---
Nurse's Notes [facility] Name: Isiah Gaytan Age: 85 yrs Sex: Male : 1935 Arrival Date: 01/06/2021 Time: 11:12 Bed 5 Private MD: Ronn Wilson Diagnosis: Subsequent non-ST elevation (NSTEMI) myocardial infarction Presentation: 01/06 11:29 Chief complaint: Patient states: "chest pain for the last 2 hours and feels similar to jd3 previous heart attack. I don't know, maybe not.". Coronavirus screen: At this time, the client does not indicate any symptoms associated with coronavirus-19. Ebola Screen: Patient negative for fever greater than or equal to 101.5 degrees Fahrenheit, and additional compatible Ebola Virus Disease symptoms. Initial Sepsis Screen: Does the patient meet any 2 criteria? No. Patient's initial sepsis screen is negative. Does the patient have a suspected source of infection? No. Patient's initial sepsis screen is negative. Risk Assessment: Do you want to hurt yourself or someone else? Patient reports no desire to harm self or others. Onset of symptoms was January 06, 2021. 11:29 Method Of Arrival: Wheelchair jd3 11:29 Acuity: MARIOLA 2 jd3 Historical: - Allergies: 11:34 Azithromycin; jd3 11:34 Codeine; jd3 11:34 Keflex; jd3 - Home Meds: 11:34 aspirin 81 mg Oral chew 1 tab once daily [Active]; atorvastatin Oral [Active]; jd3 carbidopa-levodopa 25-100 mg Oral tab [Active]; Eliquis 5 mg Oral tab 1 tab 2 times per day [Active]; furosemide 20 mg Oral tab 1 tab 2 times per day [Active]; Eliquis Oral [Active]; sotalol 40 mg Oral tab 1 tab 2 times per day [Active]; Tramadol Oral [Active]; - PMHx: 11:34 High Cholesterol; Hypertension; Atrial fibrillation; CHF; Myocardial infarction; jd3 - PSHx: 11:34 cardiac stents; jd3 - Immunization history:: Adult Immunizations up to date, Client reports having NOT received the Covid vaccine. - Social history:: Smoking status: Patient denies any tobacco usage or history of. Patient/guardian denies using alcohol, street drugs, The patient lives with family. - Family history:: not pertinent. Screenin:38 Abuse screen: Denies threats or abuse. Nutritional screening: No deficits noted. jd3 Tuberculosis screening: No symptoms or risk factors identified. Fall Risk Ambulatory Aid- None/Bed Rest/Nurse Assist (0 pts). Gait- Normal/Bed Rest/Wheelchair (0 pts) Mental Status- Oriented to own ability (0 pts). Total Griffin Fall Scale indicates No Risk (0-24 pts). Assessment: 11:36 General: Appears in no apparent distress. comfortable, Behavior is calm, cooperative, jd3 appropriate for age. Pain: Complains of pain in chest Pain does not radiate. Pain began 2 hours ago. Neuro: Level of Consciousness is awake, alert, obeys commands, Oriented to person, place, time, situation. Cardiovascular: Denies chest pain, Capillary refill < 3 seconds Patient's skin is warm and dry. Respiratory: Airway is patent Respiratory effort is even, unlabored, Respiratory pattern is regular, symmetrical, Denies cough, shortness of breath. GI: No signs and/or symptoms were reported involving the gastrointestinal system. : No signs and/or symptoms were reported regarding the genitourinary system. EENT: No signs and/or symptoms were reported regarding the EENT system. Derm: Skin is intact, Skin is dry, Skin is normal, Skin temperature is warm. Musculoskeletal: Circulation, motion, and sensation intact. Range of motion: intact in all extremities. 14:02 Reassessment: Patient appears in no apparent distress at this time. Patient and/or jd3 family updated on plan of care and expected duration. Pain level reassessed. Patient is alert, oriented x 3, equal unlabored respirations, skin warm/dry/pink. Patient states feeling better. 14:10 Reassessment: report given to Catia oh Vital Signs: 11:35 BP 140 / 80; Pulse 61; Resp 20 S; Temp 97.5(O); Pulse Ox 99% on R/A; Weight 70.31 kg jd3 (R); Height 5 ft. 9 in. (175.26 cm) (R); Pain 9/10; 14:02 BP 148 / 73; Pulse 51; Resp 20 S; Pulse Ox 99% on R/A; jd3 11:35 Body Mass Index 22.89 (70.31 kg, 175.26 cm) jd3 ED Course: 11:12 Patient arrived in ED. mr 11:12 Ronn Wilson MD is Private Physician. mr 11:13 Maco Slaughter MD is Attending Physician. ma2 11:18 Cristiano Slater, KATELYNN is Primary Nurse. jd3 11:25 XRAY Chest (1 view) In Process Unspecified. EDMS 11:32 Initial lab(s) drawn, by me, sent to lab. Inserted saline lock: 20 gauge in right kj1 antecubital area, using aseptic technique. Blood collected. 11:33 Triage completed. jd3 11:36 Arm band placed on. EKG completed in triage. Results shown to MD. jd3 11:38 Patient has correct armband on for positive identification. Bed in low position. Call jd3 light in reach. Side rails up X 1. Adult w/ patient. color television console monitor on. Pulse ox on. NIBP on. 11:39 Patient maintains SpO2 saturation greater than 95% on room air. jd3 12:40 Ronn Wilson MD is Hospitalizing Provider. ma2 14:10 No provider procedures requiring assistance completed. Patient admitted, IV remains in jd3 place. Administered Medications: 13:50 Not Given (Other Intervention Used): Lovenox (enoxaparin) 70 mg Sub-Q once jd3 13:50 Drug: morphine 4 mg Route: IVP; Site: right antecubital; jd3 14:10 Follow up: Response: No adverse reaction; RASS: Alert and Calm (0) jd3 13:50 Drug: Zofran (Ondansetron) 4 mg Route: IVP; Site: right antecubital; jd3 14:10 Follow up: Response: No adverse reaction jd3 13:51 Drug: Aspirin Chewable Tablet 324 mg Route: PO; jd3 14:10 Follow up: Response: No adverse reaction jd3 14:01 Not Given (Other Intervention Used): Potassium Chloride 10 mEq IV at calculated rate jd3 once; administer over 1-2 hours 14:01 Drug: Klor-Con (potassium) Effervescent Tablet 25 mEq Route: PO; jd3 14:15 Follow up: Response: No adverse reaction jd3 Outcome: 12:40 Decision to Hospitalize by Provider. ma2 14:10 Admitted to [facility]/surg accompanied by tech, via wheelchair, with chart. ruthy 14:10 Condition: stable 14:10 Instructed on the need for admit, Demonstrated understanding of instructions. 14:44 Patient left the ED. ss Signatures: Dispatcher [employer] PEREZ SuarezJuana garnett mr Kendal Rodgers RN RN Cristiano Maldonado RN RN jd3 Alzahri, Mohammad, MD MD ma2 Emily Mathias [facility]
[2021-01-06] MEDS ORDERED: ONDANSETRON 4 MG/2 ML VIAL IV PRN (12:41)
[2021-01-06] MEDS ORDERED: ASPIRIN 81 MG CHEWABLE TABLET ONE (13:30)
[2021-01-06] MEDS ORDERED: ONDANSETRON 4 MG/2 ML VIAL ONE (13:30)
[2021-01-06] MEDS ORDERED: MORPHINE 4 MG/ML SYR ONE (13:30)
[2021-01-06] MEDS ORDERED: ENOXAPARIN 80 MG/0.8 ML SQ ONE (13:31)
[2021-01-06] MEDS ORDERED: POTASSIUM 25 MEQ EFFERV TAB ONE (13:54)
[2021-01-06 14:35] VITALS: BMI 22.8
[2021-01-06] MEDS: MORPHINE 4 MG/ML SYR IV PRN (17:54)
[2021-01-06] MEDS ORDERED: NITROGLYCERIN 1 GM PKT TD SCH (18:00)
--- NOTE | 2021-01-06 22:11 | CON ---
Date of Consultation: 01/06/2021 Reason For Consultation: Chest pain. History Of Present Illness: An 85-year-old male who presented with chest pain, left-sided, lasted fo r more than an hour and resolved completely. Not related to exertion and currently is symptom free. No further complaints. Past Medical History: As outlined above in HPI. Medications: Refer to reconciliation sheet for detailed list. Allergies: CEPHALEXIN, CODEINE, ZOSYN. Social History: Does not smoke or drink. Does not use drugs. Family History: No premature coronary artery disease or cancer. Review of Systems: All systems reviewed and they were negative except as mentioned in HPI. Physical Examination: Vital Signs: Reviewed. Head and Neck: Pupils are equal, reactive to light. Intact eye movements. No JVD. No cervical nod es. Neck: Supple. Thyroid is not enlarged. Lungs: Clear to auscultation bilaterally. No rhonchi, rales, or crackles. No accessory muscle use. Heart: Regular rate and rhythm. No extra sounds. Abdomen: Soft, nontender. Bowel sounds positive. No organomegaly. No masses or hernia. No rigidi ty or rebound. Extremities: No edema, clubbing, or cyanosis. Intact pulses. Skin: No rashes. Neurologic: Alert, awake, and oriented x3. No acute focal deficits appreciated. Investigations: Troponin 0.16, creatinine 0.85. His hemoglobin is 11.7. Assessment And Recommendations: Elevated troponin with chest pain. Keep n.p.o. past midnight. The patient had recent heart catheterization. I will review the images and make further plan accordingly , but after midnight, please keep him n.p.o. We will start him on Lovenox 1 mg/kg subcu q.12 hours f or now until further plan is determined and please trend to a troponin further for 2 more sets and ob tain echocardiogram. Thank you for the consult. /MODL Voice ID: [id number] Report ID: [id number]
[2021-01-07 03:53] LABS: Absolute Lymphocytes (CBC) 0.8 K/uL (0.7-4.9); Basophils % 0.7 % (0-1.3); Hematocrit 30.7 % (39.6-49.0); Lymphocytes % 24.2 % (15.3-44.8); MPV 8.5 fL (7.6-11.3)
[2021-01-07 04:13] LABS: Potassium 3.5 mmol/L (3.5-5.1)
[2021-01-07] MEDS: ASPIRIN EC 81 MG TAB PO SCH (08:46)
[2021-01-07] MEDS: MORPHINE 4 MG/ML SYR IV PRN (08:50)
[2021-01-07] MEDS: BISACODYL 10 MG RECTAL SUPP PR PRN (10:53)
[2021-01-07] MEDS: PANTOPRAZOLE 40MG TABLET PO SCH (10:53)
[2021-01-07] MEDS: FUROSEMIDE 20 MG TABLET PO SCH (16:43)
--- NOTE | 2021-01-07 20:36 | EKG ---
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: XOCHILT MEASUREMENT RESULTS: Intervals: Rate: 49 MO: 238 QRSD: 86 QT: 454 QTc: 410 [place]: P: 103 MO: 238 QRS: 102 T: 214 INTERPRETIVE STATEMENTS: Suspect arm lead reversal, interpretation assumes no reversal Marked sinus bradycardia with 1st degree AV block Rightward axis ST & T wave abnormality, consider lateral ischemia Abnormal ECG Compared to ECG 01/06/2021 11:27:27 First degree AV block now present Right-axis deviation now present Junctional rhythm no longer present Myocardial infarct finding no longer present ST (T wave) deviation still present Possible ischemia still present Electronically Signed On 01-07-21 20:34:57 COMPUTER INFORMATION SYSTEMS PROFESSOR by Pollo Navarro
--- NOTE | 2021-01-07 20:40 | EKG ---
Test Date: 2021-01-06 Test Time: 11:27:27 Sybase Developer: ERIN MEASUREMENT RESULTS: Intervals: Rate: 55 PA: QRSD: 82 QT: 446 QTc: 426 [place]: P: PA: QRS: -3 T: 170 INTERPRETIVE STATEMENTS: Junctional rhythm Possible Inferior infarct, age undetermined Anterior infarct, age undetermined ST & T wave abnormality, consider lateral ischemia Abnormal ECG Compared to ECG 10/13/2020 13:49:47 Junctional rhythm now present Myocardial infarct finding now present Atrial fibrillation no longer present ST (T wave) deviation still present Possible ischemia still present Electronically Signed On 01-07-21 20:35:20 PERSONNEL MONITOR by Pollo Navarro
[2021-01-07] MEDS: SOTALOL HCL 80 MG TAB PO SCH (21:21)
[2021-01-07] MEDS: CARBIDOPA/LEVODOPA 25/100 TAB PO SCH (21:21)
[2021-01-08] MEDS: CARBIDOPA/LEVODOPA 25/100 TAB PO SCH ×2 (07:59→20:54)
[2021-01-08] MEDS: SOTALOL HCL 80 MG TAB PO SCH ×2 (07:59→20:54)
[2021-01-08] MEDS: TRAMADOL HCL 50 MG TAB PO PRN ×2 (07:59→22:29)
[2021-01-08] MEDS: ASPIRIN EC 81 MG TAB PO SCH (08:00)
[2021-01-08] MEDS: FUROSEMIDE 20 MG TABLET PO SCH ×2 (08:00→15:50)
[2021-01-08] MEDS: PANTOPRAZOLE 40MG TABLET PO SCH (08:01)
[2021-01-08] MEDS: BISACODYL 10 MG RECTAL SUPP PR PRN (08:02)
--- NOTE | 2021-01-08 15:03 | PN ---
Date of Progress Note: 01/07/2021 Subjective: Mr. Gaytan has a complicated past history of coronary artery disease and hyperlipidemia . Came in on 01/06/2021. He was seen by Dr. Bateman, who thought he had atypical chest pain. The tr david is chronically elevated and I am not too concerned about this. He complains of pain under his right ribcage that started after taking antibiotics for cellulitis. I do not think Mr. Gaytan has any cardiac issues that are acute at this point. He is adamant to go home before he feels better. I discussed the case with Dr. Wilson as I have no intention at this point to do any further cardiac w orkup. He has had extensive cardiac workup in the past and his last echo was in September of this year, which basically showed some aortic sclerosis. He had a carotid ultrasound that was basically unrema rkable. His last catheterization in May showed very mild coronary artery disease with patent LAD s tent. I am comfortable with Mr. Gaytan going home. I will leave the rest of his workup to Dr. Felix venegas. No further cardiac workup now. I will see him in the office after he goes home. No change in medical therapy. PEDRO/JAYLEEN Voice ID: [id number] Report ID: [id number]
--- NOTE | 2021-01-08 15:14 | RAD REPORT ---
EXAM DESCRIPTION: RAD - Abdomen 1 View (KUB) - 01/08/2021 2:37 pm CLINICAL HISTORY: obstibation COMPARISON: No comparisons FINDINGS: Large stool volume is present filling but not dilating the entirety of the colon. No abnor mal rectal dilation. No small bowel dilatation. No obstruction, free air or pneumatosis. No suspiciou s calcifications. Lower lumbar degenerative changes are present relatively mild for age. Advanced left hip joint degene rative change. IMPRESSION: Constipation pattern with a large amount of stool present filling but not dilating the c olon.
--- NOTE | 2021-01-08 16:39 | PN ---
Subjective: The patient states he still has some slight discomfort on his left rib cage. He is not short of breath. His cardiac workup to date has been negative. Cardiology evaluated and felt with t he pain was unlikely cardiac related. His enzymes have been slightly elevated in the past with no sp ecific disease. We will monitor him overnight and perhaps discharge in the morning. HR/MODL Voice ID: [id number] Report ID: [id number]
--- NOTE | 2021-01-08 16:48 | HP ---
Date of Admission: 01/06/2021 Chief Complaint: Chest pain. History Of Present Illness: The patient states he was fine until he swallow his antibiotic, which he has been taking for cellulitis of the toe. Within 1/2 hour, he developed some fullness and discomfo rt in the left lateral chest part, also into the left upper quadrant. There was no vomiting. He did not bring him into a sweat, became rather anxious and presented to the emergency room and then enzym es were elevated. He was therefore admitted to rule out any cardiac event. Past History: The patient has been hospitalized numerous times over the past year for cardiac proble ms including ischemic events, cellulitis of the extremities as well and has recently developed cellul itis of his toe. Family History: Noncontributory. Social History: Nonsmoker, nondrinker. Physical Examination: General: Patient is a well-built elderly male, in no acute distress. Vital Signs: Stable. Head and Neck: Normocephalic. Pupils are equal and reactive to accommodation. Fundi negative. Tra chan midline. Thyroid not palpable. ENT: Negative. Chest: Clear to P and A, nontender over the left lower ribs. Cardiovascular: PMI midclavicular line. Heart sounds normal. Peripheral pulses present and equal b ilaterally. Abdomen: No organomegaly. Bowel sounds present. Extremities: Good tone and movement. Reflexes physiologic. Area of cellulitis of the right distal second toe with an abrasion on the anterior surface. Rectal: Deferred. Impression: Chest pain atypical, possible pylorospasm, coronary artery disease by history, celluliti s of the toe. Plan: The patient will be admitted, remain off the antibiotic for the present time. Cardiac workup will determine any further evaluation and as far as this is concerned and if nothing turns up probabl y could be discharged on a different antibiotic in the next 24-48 hours. HR/MODL Voice ID: [id number]
--- OUTSIDE RECORDS SUMMARY | 2021-01-08 21:27 | XMS REPORT | Clinical Summary ---
:1935 Author Organization [facility] Address [address] [place] [address] Care Team Providers Name Role Phone Kuldeep [...] g 12/18/2018 Active (PREVIDENT) 1.1 % daily. [place] dental teeth with cream creamIndications: and spit [...] less likely . 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 Education was [...] Added automatically from request for tabitha broderick [id number] Encounter for other preprocedural examination 09/19/19 Overview: [...] within bilateral vertebral arteries OSH records from [facility] reviewed [facility] 05/09/17: LAD prox patent st ent X 2, mid 95% successful PCI to LAD Echocardiogram: 05/08/17: normal LVH, 60- 65%, LVH, aortic valve sclerosis, mild pHTN Stress test 07/09/18: adenosine nuclear s tress: mildly abnormal myocardial perfusion (low risk scan based on my discussion with his home application counselor) per Cardiology note 10/02/18 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 hospitlilized x 10 days. requ ired IV abx and debridement IL EXC SKIN MALIG 0.6-1 09/19/2018 Right Procedur e: EXCISION OF CM REMAINDR BODY MALIGNANT LESIO N OF SCALP; Surgeon: Roshan Sauceda MD; Location: MAIN OR; Service: HN - HEAD & NECK SURGERY Medical devices from this surgery are in t he Implants section. IL SUB GRFT 09/19/2018 Right Procedure: APPLI CATION OF F/S/N/H/F/G/M/D /<100SCM SKIN WU BSTITUTE GRAFT TO /<1ST 25 SCM SCALP; Surgeon: Roshan Sauceda MD; Loca tion: MAIN OR; Service: HN - HEAD & NECK SURGERY Medical devices from this surgery are in t he Implants section. IL EXC SKIN MALIG 0.6-1 10/10/2018 Midline Procedur e: EXCISION OF CM REMAINDR BODY MALIGNANT LESIO N OF SCALP; Surgeon: Roshan Sauceda MD; Location: MAIN OR; Service: HN - HEAD & NECK SURGERY Medical devices from this surgery are in t he Implants section. IL FREE MUSC-SKIN FLAP 10/10/2018 Back/Right Procedure : FREE MUSCLE OR W/MICROVASC ANAST MYOCUTANEOUS F LAP WITH MICRVASCULAR TUCKER STOMOSIS; Surgeon: Charles Moreno MD; Location: MAIN O R; Service: PLS - PLASTIC WU RGERY Medical devices from this surgery are in t he Implants section. IL SPLIT GRFT 10/10/2018 Thigh/Right Procedure: SPLIT THICKNESS TRUNK,ARM,LEG <100 SQCM SKIN GRA FT OF TRUNK/ARM OR LEG 30o06ft; Wu rgeon: Charles Moreno MD; Loca tion: MAIN OR; Service: PL S - PLASTIC SURGERY Medical devices from this surgery are in t he Implants section. IL CHG FLUOROSCOPY UP TO 10/30/2018 Right Procedu re: FLUOROSCOPY; 1 HOUR PHYSICIAN/QHP Surgeon: Srinivasa Simmons MD; TIME Location: MAIN O R; Service: ORTHOPEDIC ONCOL OGY Medical devices from this surgery are in t he Implants section. IL OPEN FIX 10/30/2018 Hip/Right Procedure: OPEN REDUCTION [...] carcinoma of skin 2014 Coronary arteriosclerosis 2011 IL n 2011 with had chest pains. sp cardiac stents x 2 ( reportedly had another IL during pr ocedure). pt was started on [...] Date Recorded Male 09/26/2018 10:26 AM CDT Obstetrics History Last Filed Vital Signs Not on file Plan of Treatment Health Maintenance Due Date Last Done Comments COVID-19 Vaccination (1) 1947 Implants Implanted Type Area Salesforce Business Analyst Device Shelf Model / Identifier Expiration Serial / Date Lot [employer] Maintenance Chief Microvascular Anastomotic Device 2.5mm - [id number] Card ioPulm Scalp [employer] JOHN 04/24/2023 [id number] / Implanted: Qty: 1 on 10/10/2018 by Charles Moreno MD at [facility] / [id number] Biomet Hip Frac Nail 11*400mm Rt Implant Right: [employer] 06/10/2028 [id number] / Implanted: Qty: 1 on 10/30/2018 by Ramón Simmons MD at [facility] Femur / [id number] Biomet Hf-Nail Lag Screw 10.5*105mm Implant Right: [employer] 08/07/2027 [id number] / Implanted: Qty: 1 on 10/30/2018 by Ramón Simmons MD at [facility] Femur / [id number] Biomet Cortical Bone Screw 5*54mm Implant Right: [employer] 06/26/2026 [id number] / Implanted: Qty: 1 on 10/30/2018 by Ramón Simmons MD at [facility] Femur / [id number] Integra Bp Dural Graft 4x5cm - Sna Skin/Tissue [employer] 05/26/2020 [id number] / Implanted: Qty: 1 on 09/19/2018 by Roshan Sauceda MD at [facility] NA / SURG [id number] Cardiac Stents Description: 2010 x2,, 2017 x1 Pins Description: pins on the left elbow Results Not on fileafter 01/07/2020 Insurance Payer Benefit Plan / Subscriber ID Effective Dates Phone Addre ss Type Group AETNA MEDICARE AETNA MEDICARE [id number] 2013-Margarita SWANSON [id number] [place] [address] Advance Directives Code Status Date Activated Date Inactivated Comments Full Code 10/29/2018 6:58 PM 11/12/2018 9:54 PM Full Code 10/10/2018 10:29 AM 10/15/2018 8:46 PM Care Teams Construction Engineering Manager Relationship Specialty Start Date End Date Kuldeep Melgoza MD PCP - External Dermatology 08/16/18 [address] [facility] [place] [address] Roshan Sauceda MD PCP - General Head and Neck Surgery 08/16/18 [facility] [place] [address] Ronn Wilson, PCP - External Primary Family Practice 09/04/17 MD Care Provider [address] [place] [id number] Pollo Navarro PCP - External Follow Cardiology 09/04/17 MD Rae Up A [address] [place] [id number]
--- OUTSIDE RECORDS SUMMARY | 2021-01-08 21:34 | XMS REPORT | Continuity of Care Document ---
:1935 Author Organization [facility] t Address [address] [place] [address] Dr. [address] [place] [address] Care Team Providers Name Role Phone Pcp Primary Care Physician Unavailable KIRK, Sumeet Attending Clinician Unavailable Isak MANTILLA Attending Clinician Unavailable Kirk LOCKETT, Sumeet Attending Clinician Only, Test Attending Clinician Unavailable Doctor Unassigned, Name Attending Clinician Unavailable Isak Mantilla MD Attending Clinician Sarah Ortiz MD Attending Clinician Betito Martin MD Attending Clinician Pob, Lab Main Attending Clinician Unavailable Dora LOCKETT Attending Clinician Sumeet WOLF Admitting Clinician Unavailable Isak MANTILLA Admitting Clinician Unavailable Kirk LOCKETT, Sumeet Admitting Clinician Payers Payer Name Policy Type Policy Effective Date Expiration Date Sour ce Number [employer]ETNA MANAGED [id number] 2020 MEDICARE PPO-FERNANDO 00:00:00 AETNA MEDICARE HMO [id number] 2020 POS PPO 00:00:00 AETNA MEDICAREAETNA [id number] 2013 [place] MEDICARE 00:00:00 [id number] [place] [address]Medicare Problems Condition Condition Condition Status Onset Resolution Last Treating Co mments Source Name Details Category Date Date Treatment Clinician Date NSTEMI NSTEMI Disease Active [facility] - elevated elevated 00:00: Medica l myocardial myocardial 00 Ce nter infarction infarction ) ) FEVER Diagnosis Active 2018-022019-01-27 Mem oria 03-11 22:24:00 l FEVER 00:00: Olla 00 Active 01/09/2019 [facility] Unexplaine Unexplaine Disease Active 2018-02 Last M [...] Displaced Disease Active Overview: intertroch intertroch 10-29 Formattin Anderso anteric anteric 00:00: g of this n fracture fracture 00 note of right of right might be femur femur different from the original. Added automatic ally from request for surgery [id number] Encounter Encounter Disease Active Overview: for other for other 09-18 Formattin A nderso preprocedu preprocedu 00:00: g [...] 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 qnrhia1902/12 Carotid Duplex: <50% plaque within right ICA, normal left ICA, antegrade flow within bilateral vertebral arteriesO [place] [facility] 05/09/17: LAD prox patent stent X 2, mid 95% successfu l PCI to LADEchoca rdiogram: 05/08/17: normal LVH, 60-65%, LVH, aortic valve sclerosis , mild pHTNStres s test 07/09/18: adenosine nuclear stress: mildly abnormal myocardia l perfusion (low risk scan based on my discussio n with his home cardiolog ist) per Cardiolog y note 10/02/18 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 00:00: [...] 2020-09-09 M emoria a 00:53:30 l (finding) Philip Paresthesi a (finding) Active Problem 09/09/2020 [facility] Parkinson' Problem Active 2020-09-09 M emoria s disease 00:53:30 l (disorder) Clifford n Parkinson' s disease (disorder) Active Problem 09/09/2020 [facility] Tremor Problem Active 2020-09-09 Memor ia (finding) 00:53:30 l Tremor Philip (finding) Active Problem 09/09/2020 [facility] Hallucinos Hallucinos Disease Active M D is is Adam romero History of Past Illness Condition Condition Condition Status Onset Resolution Last Treating Co mments Source Name Details Category Date Date Treatment Clinician Date Chills Problem 2018-022019-01-21 2019-01-21 M emoria (without 1-14 22:44:12 22:44:12 l fever) Chills 18:00: Olla (without 00 fever) 01/09/2019 01/21/2019 [facility] Allergies, Adverse Reactions, Alerts Allergy Allergy Status Severity Reaction(s) Onset Inactive Treating Comm ents Source Name Type Date Date Clinician CODEINE DRUG Active Unknown-Cmnt Uni vers INGREDI 7-20 ity of 00:00: [place] 00 [facility] Branch CEPHALEX DRUG Active Unknown-Cmnt Un mary IN INGREDI 7-20 ity of 00:00: [place] 00 Medical Branch Codeine Propensi Active Unknown - Univ ers ty to See comments 7-20 ity of adverse 00:00: [place] reaction 00 [facility] Cephalex Propensi Active Unknown - Uni vers in ty to See comments 7-20 ity of adverse 00:00: [place] reaction 00 Medical s Branch NO KNOWN Drug Active Univers ALLERGIE Class ity of [facility] codeine codeine Active Memoria kumar [place] Cipro Cipro Active [facility] [place] Keflex Keflex Active [facility] k[facility] [place] NO KNOWN Allergy Active [facility] ALLERGIE S Family History Family Member Diagnosis Comments Start Date Stop Date Source Family member VTE MD [facility] Family member Bleeding Disorder MD Sumeet senaon Family member Coronary artery And erson disease Family member Stroke MD [facility] Maternal grandmother Diabetes MD Sumeet brothersrson Natural mother -Colon cancer MD Arya mitchell Natural mother Hypertension Willis son Social History Social Habit Start Date Stop Date Quantity Comments Source History of tobacco Current smoker MD [facility] use Exposure to Not sure University SARS-CoV-2 (event) [facility] History NDOH 2020-09-26 2020-09-[address] [facility] - Alcohol Frequency 00:00:00 00:00:00 Medical Center History [facility] 2020-09-26 2020-09-[address] [facility] - Alcohol Std Drinks 00:00:00 00:00:00 Medica l Center History [facility] 2020-09-26 2020-09-[address] [facility] - Alcohol Binge 00:00:00 00:00:[address] Social History 2020-08-09 2020-08-09 [facility] 20:37:37 20:37:37 Alcohol intake 2018-12-17 2018-12-17 Ex-drinker MD Adam romero 00:00:00 00:00:00 (finding) Cigarettes smoked 2018-09-04 2018-09-04 MD Arya mitchell current (pack per 00:00:00 00:00:00 day) - Reported Cigarette 2018-09-04 2018-09-04 MD [facility] pack-years 00:00:00 00:00:00 Tobacco use and 2018-09-04 2018-09-04 Former smokeless MD [facility] exposure 00:00:00 00:00:00 tobacco user Sex Assigned At [birth year] Univers[facility] 00:00:00 00:00:00 [facility] Smoking Status Start Date Stop Date Source Unknown if ever smoked [facility] Never smoker [facility] Branch Social History 2019-01-10 07:34:37 2019-01-10 07:34:37 [facility] Ordered Filled Start Stop Current Ordering Indication Dosage Frequency Signature Comments Components Source Medication Medication Date Date Medication? Clinician (SIG) Name Name [facility] 2020-02 Yes PRN, Univers (MIOSTAT) 0-06 Starting ity of 0.01 % 15:28: on Wed [place] intraocular 00 12/01/20 at Mo dical injection 1028, Branch Until Discontinu ed, Routine, Intra-op dexamethaso 2020-02 Yes PRN, Univer s ne 0-06 Starting ity of (DECADRON 15:28: on Wed [place] PHOSPHATE) 00 12/01/20 at Med ical injection 1028, Branch Until Discontinu ed, Routine, Intra-op DUOVISC 2020-02 Yes PRN, Univers (DUOVISC 0-06 Starting ity of VISCO 15:28: on Wed [place] ELASTIC) 3 00 12/01/20 at Med ical %-4 %(0.5 1028, Branch mL) 1 % Until (0.55 mL) Discontinu intraocular ed, injection Routine, Intra-op carbachoL 2020-02- No PRN, Univers (MIOSTAT) 0-06 10-06 Starting ity o f 0.01 % 15:28: 18:16 on Wed [place] intraocular 00 :40 12/01/20 at Mo dical injection 1028, Branch Until 12/01/20 at 1316, Routine, Intra-op dexamethaso 2020-02- No PRN, Carolin montes ne 0-06 10-06 Starting ity of (DECADRON 15:28: 18:16 on Wed [place] PHOSPHATE) 00 :40 12/01/20 at Med ical injection 1028, Branch Until 12/01/20 at 1316, Routine, Intra-op DUOVISC 2020-02- No PRN, Univers (DUOVISC 0-06 10-06 Starting ity of VISCO 15:28: 18:16 on Wed [place] ELASTIC) 3 00 :40 12/01/20 at Med ical %-4 %(0.5 1028, Branch mL) 1 % Until Wed (0.55 mL) 12/01/20 at intraocular 1316, injection Routine, Intra-op neomycin-po 2020-02 Yes PRN, Dawson alan lymyxin-dex 0-06 Starting ity of amethasone 15:27: on Wed [place] (MAXITROL) 00 12/01/20 at [facility] ica 3.5 1027, Branch mg/g-10,000 Until unit/g-0.1 Discontinu % ed, ophthalmic Routine, ointment Intra-op neomycin-po 2020-02- No PRN, Unive rs lymyxin-dex 0-06 10-06 Starting ity of amethasone 15:27: 18:16 on Sun [place] (MAXITROL[place] 00 :40 12/01/20 at [facility] ica 3.5 1027, Branch mg/g-10,000 Until Wed unit/g-0.1 12/01/20 at % 1316, ophthalmic Routine, ointment Intra-op balanced 2020-02 Yes PRN, Univers salt irrig 0-06 Starting ity o f soln comb1 15:23: on Sun (BSS PLUS) 00 12/01/20 at [facility] ophthalmic 1023, Branch solution Until 500 mL bag Discontinu ed, Routine, Intra-op EPINEPHrine 2020-02 Yes PRN, Univer s 1:1,000 (1 0-06 Starting ity o f mg/mL) 15:23: on Sun (ADRENALIN) 00 12/01/20 at Mo dical injection 1023, Branch Until Discontinu ed, Routine, Intra-op balanced 2020-02- No PRN, Univers salt irrig 0-06 10-06 Starting ity of soln comb1 15:23: 18:16 on Suna s (BSS PLUS) 00 :40 12/01/20 at [facility] ophthalmic 1023, Branch solution Until Sun 500 mL bag 12/01/20 at 1316, Routine, Intra-op EPINEPHrine 2020-02- No PRN, Unive rs 1:1,000 (1 0-06 10-06 Starting ity of mg/mL) 15:23: 18:16 on Sun (ADRENALIN) 00 :40 12/01/20 at Mo dical injection 1023, Branch Until 12/01/20 at 1316, Routine, Intra-op water for 2020-02 Yes PRN, Univers irrigation 0-06 Starting ity o f irrigation 15:19: on Sun [place] solution 00 12/01/20 at Medic al 1019, Branch Until Discontinu ed, Routine, Intra-op water for 2020-02- No PRN, Univers irrigation 0-06 10-06 Starting ity of irrigation 15:19: 18:16 on Sun [place] solution 00 :40 12/01/20 at Medic al 1019, Branch Until Sun12/01/20 at 1316, Routine, Intra-op Hyaluronida 2020-02 Yes PRN, Univer s se, Human 0-06 Starting ity of Recomb. 15:15: on Sun (HYLENEX) 00 12/01/20 at [facility] injection 1015, Branch Until Discontinu ed, Routine, Intra-op eye block 2020-02 Yes PRN, Univers syringe 11 0-06 Starting ity o f mL 15:15: on Sun 00 12/01/20 at [place] [id number], Branch Until Discontinu ed, Intra-op Hyaluronida 2020-02- No PRN, Unive rs se, Human 0-06 10-06 Starting ity o f Recomb. 15:15: 18:16 on Sun (HYLENEX) 00 :40 12/01/20 at [facility] injection 1015, Branch Until Sun12/01/20 at 1316, Routine, Intra-op eye block 2020-02- No PRN, Univers syringe 11 0-06 10-06 Starting ity of mL 15:15: 18:16 on Sun [place] 00 :40 12/01/20 at [place] [id number], Branch Until Sun12/01/20 at 1316, Intra-op mydriatic 2020-02- No .5mL 0.5 mL, Univ ers #5 0-06 10-06 Left Eye, ity of ophthalmic 14:00: 13:58 ONCE, 1 Hernán as solution 00 :00 dose, On Medical 0.5 mL Wed Branch syringe 12/01/20 at 0900, Routine, DSU Pre-op lactated 2020-02- No 1000mL at 42 Unive rs ringers IV 0-06 10-06 mL/hr, ity of infusion 14:00: 13:56 1,000 mL, Hernán as 1,000 mL 00 :00 IV Medical Infusion, Branch ONCE, 1 dose, On Sun12/01/20 at 0900, Routine, DSU Pre-op mydriatic 2020-02- No .5mL 0.5 mL, Univ ers #5 0-06 10-06 Left Eye, ity of ophthalmic 14:00: 13:58 ONCE, 1 Hernán as solution 00 :00 dose, On Medical 0.5 mL Wed Branch syringe 12/01/20 at 0900, Routine, DSU Pre-op lactated 2020-02- No 1000mL at 42 Unive rs ringers IV 0-06 10-06 mL/hr, ity of infusion 14:00: 13:56 1,000 mL, Hernán as 1,000 mL 00 :00 IV Medical Infusion, Branch ONCE, 1 dose, On 12/01/20 at 0900, Routine, DSU Pre-op aspirin 81 2020-02 Yes 81mg Take 81 mg U nivers mg EC 0-06 by mouth. ity of tablet 11:16: [address] famotidine 2020-02 Yes 20mg Take 20 mg U nivers 20 mg 0-06 by mouth. ity of tablet 11:16: [address] aspirin 81 2020-02 Yes 81mg Take 81 mg U nivers mg EC 0-06 by mouth. ity of tablet 11:16: [address] famotidine 2020-02 Yes 20mg Take 20 mg U nivers 20 mg 0-06 by mouth. ity of tablet 11:16: [address] sotaloL Yes life-threat 80mg Q.5D Take [address] [facility] (BETAPACE) 8-04 ening by mouth 2 Francy kes - 80 MG 17:43: ventricular (two) Medi mendez tablet 16 tachycardia times Cente r daily. clopidogreL Yes acute 75mg QD Take [address] [facility] (PLAVIX) 75 8-04 coronary by mouth [facility] - mg tablet 17:43: syndrome daily. Me dical 16 Center atorvastati Yes 80mg QD Take [address] n (LIPITOR) 8-04 by mouth Luke s - 80 MG 17:43: daily. Medical tablet 16 Center furosemide Yes 80mg [id number] Take [address] [facility] (LASIX) 80 8-04 [id number] by mouth 3 [facility] - MG tablet 17:43: 3D (three) Medic al 16 times Center daily. nitroglycer 2021-0 2021- No .4mg Place 0.[address] [facility] in 8-04 08-04 mg under [facility] - (NITROSTAT) 17:35: 00:00 the tongue Medical 0.4 MG SL 56 :00 every 5 Center tablet (five) minutes as needed for Chest pain Put 1 pill under tongue every 5min as needed for chest pain.No more than 3 doses in 15min.Call 911 if pain unrelieved 5min after 1st dose . nitroglycer Yes .4mg Place [address] [facility] in 04 tablet [facility] - (NITROSTAT) 00:00: (0.4 mg Med ical 0.4 MG SL 00 total) Center tablet under the tongue every 5 (five) minutes as needed for Chest pain Put 1 pill under tongue every 5min as needed for chest pain.No more than 3 doses in 15min.Call 911 if pain unrelieved 5min after 1st dose . aspirin 81 0 Yes 81mg Take 81 mg U nivers mg EC 7-21 by mouth. ity of tablet 20:06: [address] famotidine Yes 20mg Take 20 mg U nivers 20 mg 7-21 by mouth. ity of tablet 20:06: [address] aspirin 81 0 Yes 81mg Take 81 mg U nivers mg EC 7-21 by mouth. ity of tablet 20:06: [address] famotidine Yes 20mg Take 20 mg U nivers 20 mg 7-21 by mouth. ity of tablet 20:06: [address] balanced 0 Yes PRN, Univers salt irrig 09-15 Starting ity o f soln comb1 18:58: Wed [place] (BSS PLUS) 00 09/15/20 at Med ical ophthalmic 1358, Branch solution Until 500 mL bag Discontinu ed, Routine, Intra-op carbachoL 0 Yes PRN, Univers (MIOSTAT) 09-15 Starting ity of 0.01 % 18:58: Sun [place] intraocular 00 09/15/20 at Mo dical injection 1358, Branch Until Discontinu ed, Routine, Intra-op dexamethaso Yes PRN, Univer s ne 09-15 Starting ity of (DECADRON 18:58: Sun [place] PHOSPHATE) 09/15/20 at Med ical injection 1358, Branch Until Discontinu ed, Routine, Intra-op DUOVISC Yes PRN, Univers (DUOVISC 09-15 Starting ity of VISCO 18:58: Wed [place] ELASTIC) 3 00 09/15/20 at [facility] ical %-4 %(0.5 1358, Branch mL) 1 % Until (0.55 mL) Discontinu intraocular ed, injection Routine, Intra-op balanced 2020- No PRN, Univers salt irrig 09-15 Starting ity of soln comb1 18:58: 22:06 Wed [place] (BSS PLUS) 00 :51 09/15/20 at [facility] ical ophthalmic 1358, Branch solution Until Sun 500 mL bag 09/15/20 at 1706, Routine, Intra-op carbachoL 2020- No PRN, Univers (MIOSTAT) 09-15 Starting ity o f 0.01 % 18:58: 22:06 Wed [place] intraocular 00 :51 09/15/20 at Mo dical injection 1358, Branch Until 09/15/20 at 1706, Routine, Intra-op dexamethaso 2020- No PRN, Unive rs ne 09-15 Starting ity of (DECADRON 18:58: 22:06 Wed [place] PHOSPHATE) 00 :51 09/15/20 at [facility] ical injection 1358, Branch Until Sun09/15/20 at 1706, Routine, Intra-op DUOVISC 2020- No PRN, Univers (DUOVISC 09-15 Starting ity of VISCO 18:58: 22:06 Wed [place] ELASTIC) 3 00 :51 09/15/20 at [facility] ical %-4 %(0.5 1358, Branch mL) 1 % Until Wed (0.55 mL) 09/15/20 at intraocular 1706, injection Routine, Intra-op neomycin-po Yes PRN, Univer s lymyxin-dex 09-15 Starting ity of amethasone 18:57: Wed [place] (MAXITROL) 00 09/15/20 at Med ical 3.5 1357, Branch mg/g-10,000 Until unit/g-0.1 Discontinu % ed, ophthalmic Routine, ointment Intra-op neomycin-po 2020- No PRN, Unive rs lymyxin-dex 09-15 Starting ity of amethasone 18:57: 22:06 [facility] (MAXITROL) 00 :51 09/15/20 at [facility] ical 3.5 1357, Branch mg/g-10,000 Until Sun unit/g-0.1 09/15/20 at % 1706, ophthalmic Routine, ointment Intra-op EPINEPHrine Yes PRN, Univer s 1:1,000 (1 09-15 Starting ity o f mg/mL) 18:53: Sun [place] (ADRENALIN) 00 09/15/20 at Mo dical injection 1353, Branch Until Discontinu ed, Routine, Intra-op EPINEPHrine 2020- No PRN, Unive rs 1:1,000 (1 09-15 Starting ity of mg/mL) 18:53: 22:06 [facility] (ADRENALIN) 00 :51 09/15/20 at Mo dical injection 1353, Branch Until Sun09/15/20 at 1706, Routine, Intra-op water for Yes PRN, Univers irrigation 09-15 Starting ity o f irrigation 18:50: Sun [place] solution 00 09/15/20 at Medic al 1350, Branch Until Discontinu ed, Routine, Intra-op water for 2020- No PRN, Univers irrigation 09-15 Starting ity of irrigation 18:50: 22:06 [facility] [place] solution 00 :51 09/15/20 at Medic al 1350, Branch Until Sun09/15/20 at 1706, Routine, Intra-op Hyaluronida Yes PRN, Univer s se, Human 09-15 Starting ity of Recomb. 18:47: Sun [place] (HYLENEX) 00 09/15/20 at Medi mendez injection 1347, Branch Until Discontinu ed, Routine, Intra-op Hyaluronida 2020- No PRN, Unive rs se, Human 09-15 Starting ity o f Recomb. 18:47: 22:06 [facility] [place] (HYLENEX) 00 :51 09/15/20 at Medi mendez injection 1347, Branch Until Sun09/15/20 at 1706, Routine, Intra-op eye block Yes PRN, Univers syringe 11 09-15 Starting ity o f mL 18:45: Wed [place] 00 09/15/20 at [facility] 1345, Branch Until Discontinu ed, Intra-op eye block 2020- No PRN, Univers syringe 11 09-15 Starting ity of mL 18:45: 22:06 Wed [place] 00 :51 09/15/20 at [facility] 1345, Branch Until Sun09/15/20 at 1706, Intra-op mydriatic 2020- No .5mL 0.5 mL, Univ ers #5 09-15 Right Eye, ity of ophthalmic 17:45: 17:39 ONCE, 1 Hernán as solution 00 :00 dose, Sun Medica l 0.5 mL 09/15/20 at Branch syringe 1245, Routine, DSU Pre-op lactated 2020- No 1000mL at 42 Unive rs ringers IV 09-15 mL/hr, ity of infusion 17:45: 17:39 1,000 mL, Hernán as 1,000 mL 00 :00 IV Medical Infusion, [place] ONCE, 1 dose, Sun09/15/20 at 1245, Routine, DSU Pre-op mydriatic 2020- No .5mL 0.5 mL, Univ ers #5 09-15 Right Eye, ity of ophthalmic 17:45: 17:39 ONCE, 1 Hernán as solution 00 :00 dose, Sun Medica l 0.5 mL 09/15/20 at Branch syringe 1245, Routine, DSU Pre-op lactated 2020- No 1000mL at 42 Unive rs ringers IV 09-15 mL/hr, ity of infusion 17:45: 17:39 1,000 mL, Hernán as 1,000 mL 00 :00 IV Medical Infusion, [place] ONCE, 1 dose, Sun09/15/20 at 1245, Routine, DSU Pre-op aspirin 81 Yes 81mg Take 81 mg U nivers mg EC 09-15 by mouth. ity of tablet 15:06: [address] famotidine Yes 20mg Take 20 mg U nivers 20 mg 7-21 by mouth. ity of tablet 15:06: [address] aspirin 81 0 Yes 81mg Take 81 mg U nivers mg EC 7-21 by mouth. ity of tablet 15:06: [address] famotidine Yes 20mg Take 20 mg U nivers 20 mg 7-21 by mouth. ity of tablet 15:06: [address] apixaban 5 Yes TAKE 1 Memor ia MG Oral 7-12 TABLET BY l Tablet 20:03: MOUTH Philip [Eliquis] 00 TWICE A DAY LORazepam Yes 0 Memoria 0.5 mg oral 7-12 Refill(s) l tablet 20:03: Olla 00 Carbidopa 0 Yes 1 tab, PO, Me moria 25 MG / 7-12 TID, # 90 l Levodopa 20:03: tab, 3 Philip 100 MG Oral 00 Refill(s), Tablet Pharmacy: [[facility] 25[facility]] cy #[id number], 175.26, cm, 07/19/20 14:31:00 CDT, Height, 75.909, kg, 07/19/20 14:31:00 CDT, Weight apixaban 5 Yes TAKE 1 Memor ia MG Oral 7-12 TABLET BY l Tablet 20:03: MOUTH [place] [Eliquis] 00 TWICE A DAY LORazepam 2020-0 Yes 0 Memoria 0.5 mg oral 7-12 Refill(s) l tablet 20:03: Philip 00 Carbidopa 2020-0 Yes 1 tab, PO, Me moria 25 MG / 7-12 TID, # 90 l Levodopa 20:03: tab, 3 Olla 100 MG Oral 00 Refill(s), Tablet Pharmacy: [[facility]] cy #[id number], 175.26, cm, 07/19/20 14:31:00 CDT, Height, 75.909, kg, 07/19/20 14:31:00 CDT, Weight apixaban 5 0 Yes TAKE 1 Memor ia MG Oral 7-12 TABLET BY l Tablet 20:03: MOUTH Olla [Eliquis] 00 TWICE A DAY LORazepam 0 Yes 0 Memoria 0.5 mg oral 7-12 Refill(s) l tablet 20:03: Olla 00 Carbidopa 2020-0 Yes 1 tab, PO, Me moria 25 MG / 7-12 TID, # 90 l Levodopa 20:03: tab, 3 Olla 100 MG Oral 00 Refill(s), Tablet Pharmacy: [[facility]] cy #[id number], 175.26, cm, 07/19/20 14:31:00 CDT, Height, 75.909, kg, 07/19/20 14:31:00 CDT, Weight carbidopa-l 2020-0 Yes 1 tab, PO, [facility] evodopa 7-12 TID, # 90 [facility] - (Sinemet) 00:00: tab, 3 Medica l 25-100 mg 00 Refill(s), Cent er per tablet Pharmacy: [facility] cy #[id number], 175.26, cm, 07/19/20 14:31:00 CDT, Height, 75.909, kg, 07/19/20 14:31:00 CDT, Weight prednisoLON 2020-0 Yes PLEASE SEE [facility] acetate 6-27 ATTACHED [facility] - (PRED 00:00: FOR Medical FORTE) 1 % 00 DETAILED Cente r ophthalmic DIRECTIONS suspension furosemide 2020-0 Yes 80mg Take 80 mg U nivers 80 mg 6-18 by mouth 2 ity of tablet 00:00: (two) [place] 00 times Medical daily. Branch furosemide 2020-0 Yes 80mg Take 80 mg U nivers 80 mg 6-18 by mouth 2 ity of tablet 00:00: (two) [place] 00 times Medical daily. Branch furosemide 2021-0 Yes 80mg Take 80 mg U nivers 80 mg 6-18 by mouth 2 ity of tablet 00:00: (two) [place] 00 times Medical daily. Branch furosemide 2021-0 Yes 80mg Take 80 mg U nivers 80 mg 6-18 by mouth 2 ity of tablet 00:00: (two) [place] 00 times Medical daily. Branch furosemide 2021-0 Yes 80mg Take 80 mg U nivers 80 mg 6-18 by mouth 2 ity of tablet 00:00: (two) [place] 00 times Medical daily. Branch furosemide 2021-0 Yes 80mg Take 80 mg U nivers 80 mg 6-18 by mouth 2 ity of tablet 00:00: (two) [place] 00 times Medical daily. Branch Carbidopa 0 Yes 1 tab, PO, Me moria 25 MG / 6-14 BID, # 60 l Levodopa 21:52: tab, 3 Philip 100 MG Oral 00 Refill(s), Tablet Pharmacy: [[facility]] cy #[id number], 175.26, cm, 07/19/20 14:31:00 CDT, Height, 75.909, kg, 07/19/20 14:31:00 CDT, Weight Carbidopa 2020-0 Yes 1 tab, PO, Me moria 25 MG / 6-14 BID, # 60 l Levodopa 21:52: tab, 3 Philip 100 MG Oral 00 Refill(s), Tablet Pharmacy: [[facility]] cy #[id number], 175.26, cm, 07/19/20 14:31:00 CDT, Height, 75.909, kg, 07/19/20 14:31:00 CDT, Weight Carbidopa 2020-0 Yes 1 tab, PO, Me moria 25 MG / 6-14 BID, # 60 l Levodopa 21:52: tab, 3 Philip 100 MG Oral 00 Refill(s), Tablet Pharmacy: [[facility]] cy #[id number], 175.26, cm, 07/19/20 14:31:00 CDT, Height, 75.909, kg, 07/19/20 14:31:00 CDT, Weight carbidopa-l 2020-0 Yes 1{tbl} Take 1 Un mary evodopa 6-14 tablet by ity of 25-100 mg 00:00: mouth 2 [place] tablet 00 (two) Medical times Branch daily. carbidopa-l 2020-0 Yes 1{tbl} Take 1 Un mary evodopa 6-14 tablet by ity of 25-100 mg 00:00: mouth 2 [place] tablet 00 (two) Medical times Branch daily. carbidopa-l 1-0 Yes 1{tbl} Take 1 Un mary evodopa 6-14 tablet by ity of 25-100 mg 00:00: mouth 2 [place] tablet 00 (two) Medical times Branch daily. carbidopa-l 2020-0 Yes 1{tbl} Take 1 Un mary evodopa 6-14 tablet by ity of 25-100 mg 00:00: mouth 2 [place] tablet 00 (two) Medical times Branch daily. carbidopa-l 2020-0 Yes 1{tbl} Take 1 Un mary evodopa 6-14 tablet by ity of 25-100 mg 00:00: mouth 2 [place] tablet 00 (two) Medical times Branch daily. carbidopa-l 2021-0 Yes 1{tbl} Take 1 Un mary evodopa 6-14 tablet by ity of 25-100 mg 00:00: mouth 2 [place] tablet 00 (two) Medical times Branch daily. Eliquis 5 2020-0 Yes 5mg Q.5D Take [address] [facility] MG tablet 6-11 by mouth 2 Luke s - 00:00: (two) Medical 00 times Center daily. ELIQUIS 5 2020-0 Yes 5mg Take 5 mg Uni vers mg tablet 6-11 by mouth 2 ity of 00:00: (two) [place] 00 times Medical daily. Branch ELIQUIS 5 2020-0 Yes 5mg Take 5 mg Uni vers mg tablet 6-11 by mouth 2 ity of 00:00: (two) [place] 00 times Medical daily. Branch ELIQUIS 5 2020-0 Yes 5mg Take 5 mg Uni vers mg tablet 6-11 by mouth 2 ity of 00:00: (two) [place] 00 times Medical daily. Branch ELIQUIS 5 2020-0 Yes 5mg Take 5 mg Uni vers mg tablet 6-11 by mouth 2 ity of 00:00: (two) [place] 00 times Medical daily. Branch ELIQUIS 5 2020-0 Yes 5mg Take 5 mg Uni vers mg tablet 6-11 by mouth 2 ity of 00:00: (two) [place] 00 times Medical daily. Branch ELIQUIS 5 2020-0 Yes 5mg Take 5 mg Uni vers mg tablet 6-11 by mouth 2 ity of 00:00: (two) [place] 00 times Medical daily. Branch Sotalol 2020-0 Yes 80 mg = 1 Memor ia 5-24 tab, PO, l 20:02: BID, # 60 Philip 00 tab, 0 Refill(s) Sotalol 2020-0 Yes 80 mg = 1 Memor ia 5-24 tab, PO, l 20:02: BID, # 60 Olla 00 tab, 0 Refill(s) Sotalol Yes 80 mg = 1 Memor ia 5-24 tab, PO, l 20:02: BID, # 60 Olla 00 tab, 0 Refill(s) Lasix 0 Yes 80 mg, PO, Memori a 5-24 BID, 0 l 20:01: Refill(s) Lasix 0 Yes 80 mg, PO, Memori a 5-24 BID, 0 l 20:01: Refill(s) Lasix 0 Yes 80 mg, PO, Memori a 5-24 BID, 0 l 20:01: Refill(s) meloxicam Yes 15 mg, PO, Me moria 5-24 Daily, 0 l 20:00: Refill(s) meloxicam Yes 15 mg, PO, Me moria 5-24 Daily, 0 l 20:00: Refill(s) meloxicam 0 Yes 15 mg, PO, Me moria 5-24 Daily, 0 l 20:00: Refill(s) Olla 00 [facility] 2018-02 No Notes: Memoria Mineral Oil -24 (Same l Enema 19:58: as: Mineral Oil Enema) [facility] 2018-02 No Notes: Memoria Mineral Oil -24 (Same l Enema 19:58: as: Mineral Oil Enema) [facility] 2018-02 No Notes: Memoria Mineral Oil -24 (Same l Enema 19:58: as: Mineral Oil Enema) naproxen 2018-02 Yes 500 mg = 1 Mem oria 500 mg oral 1-24 tab, PO, l tablet 15:04: BID, X 7 day, # 14 tab, 0 Refill(s), Pharmacy: [facility] #[id number] bisacodyl 2018-02 Yes 10 mg = 1 Mem oria 10 mg 1-24 supp, [place], l rectal 15:04: Daily, PRN Lilly nn suppository 00 Constipati on, # 10 supp, 0 Refill(s), Pharmacy: [facility] #[id number] Docusate 2018-02 Yes 100 mg = 1 Mem oria Sodium 100 1-24 cap, PO, l MG Oral 15:04: BID, # 60 Lilly nn Capsule 00 cap, 0 [Colace] Refill(s), Pharmacy: [id number] bisacodyl 5 2018-02 Yes 10 mg = 2 M emoria mg oral 1-24 tab, PO, l enteric 15:04: Daily, PRN Herm ayush coated 00 Constipati tablet on, X 10 day, # 20 tab, 0 Refill(s), Pharmacy: [id number] POLYETHYLEN 2018-02 Yes 17 gm, PO, Memoria E GLYCOL 1-24 Daily, PRN l [id number] 142 15:04: Constipati Her pinon MG/ML Oral 00 on, # 255 Solution gm, 0 [Miralax] Refill(s), [id number] naproxen 2018-02 Yes 500 mg = 1 Mem oria 500 mg oral 1-24 tab, PO, l tablet 15:04: BID, X 7 Olla 00 day, # 14 tab, 0 Refill(s), [id number] bisacodyl 2018-02 Yes 10 mg = 1 Mem oria 10 mg 1-24 supp, [place], l rectal 15:04: Daily, PRN Lilly nn suppository 00 Constipati on, # 10 supp, 0 Refill(s), Pharmacy: [id number] Docusate 2018-02 Yes 100 mg = 1 Mem oria Sodium 100 1-24 cap, PO, l MG Oral 15:04: BID, # 60 Lilly nn Capsule 00 cap, 0 [Colace] Refill(s), Pharmacy: [id number] bisacodyl 5 2018-02 Yes 10 mg = 2 M emoria mg oral 1-24 tab, PO, l enteric 15:04: Daily, PRN Herm ayush coated 00 Constipati tablet on, X 10 day, # 20 tab, 0 Refill(s), Pharmacy: [id number] POLYETHYLEN 2018-02 Yes 17 gm, PO, Memoria E GLYCOL 1-24 Daily, PRN l [id number] 142 15:04: Constipati Her pinon MG/ML Oral 00 on, # 255 Solution gm, 0 [Miralax] Refill(s), Pharmacy: [facility] #[id number] naproxen 2018-02 Yes 500 mg = 1 Mem oria 500 mg oral 1-24 tab, PO, l tablet 15:04: BID, X 7 Olla 00 day, # 14 tab, 0 Refill(s), Pharmacy: [id number] bisacodyl 2018-02 Yes 10 mg = 1 Mem oria 10 mg 1-24 supp, [place], l rectal 15:04: Daily, PRN Lilly nn suppository 00 Constipati on, # 10 supp, 0 Refill(s), Pharmacy: [id number] Docusate 2018-02 Yes 100 mg = 1 Mem oria Sodium 100 1-24 cap, PO, l MG Oral 15:04: BID, # 60 Lilly nn Capsule 00 cap, 0 [Colace] Refill(s), Pharmacy: [facility] #[id number] bisacodyl 5 2018-02 Yes 10 mg = 2 M emoria mg oral 1-24 tab, PO, l enteric 15:04: Daily, PRN Herm ayush coated 00 Constipati tablet on, X 10 day, # 20 tab, 0 Refill(s), Pharmacy: [facility] #[id number] POLYETHYLEN 2018-02 Yes 17 gm, PO, Memoria E GLYCOL 1-24 Daily, PRN l [id number] 142 15:04: Constipati Her pinon MG/ML Oral 00 on, # 255 Solution gm, 0 [Miralax] Refill(s), Pharmacy: [facility] #[id number] Lactulose 2018-02 No Notes: Memori a 667 MG/ML 1-24 (Same l Oral 01:11: as:Chronul Olla Solution 00 ac) Lactulose 2018-02 No Notes: Memori a 667 MG/ML 1-24 (Same l Oral 01:11: as:Chronul Philip Solution 00 ac) Lactulose 2018-02 No Notes: Memori a 667 MG/ML 1-24 (Same l Oral 01:11: as:Chronul Philip Solution 00 ac) Lactulose 2018-02 No Notes: Memori a 667 MG/ML -23 (Same l Oral 14:13: as:Chronul Olla Solution 00 ac) Lactulose 2018-02 No Notes: Memori a 667 MG/ML 1-23 (Same l Oral 14:13: as:Chronul Philip Solution 00 ac) Lactulose 2018-02 No Notes: Memori a 667 MG/ML 1-23 (Same l Oral 14:13: as:Chronul Olla Solution 00 ac) Dulcolax 2018-02 No Notes: Memoria Laxative 1-23 (Same As: l 12:41: Dulcolax, Philip 00 Bisco-Lax) Dulcolax 2018-02 No Notes: Memoria Laxative 1-23 (Same As: l 12:41: Dulcolax, Olla 00 Bisco-Lax) Dulcolax 2018-02 No Notes: Memoria Laxative 1-23 (Same As: l 12:41: Dulcolax, Olla 00 Bisco-Lax) Melatonin 2018-02 No Notes: Pepe micki MG Extended 1-23 (Same as: l Release 07:13: Melatonin) Herm ayush Tablet 00 Melatonin 2018-02 No Notes: Pepe micki MG Extended 1-23 (Same as: l Release 07:13: Melatonin) Herm ayush Tablet 00 Melatonin 2018-02 No Notes: Pepe micki MG Extended 1-23 (Same as: l Release 07:13: Melatonin) Herm ayush Tablet 00 Alprazolam 2018-02 No Notes: Memor ia 0.25 MG 1-22 With food l Oral Tablet 11:18: or milk Her pinon [Xanax] 00 (Same as: Xanax) Alprazolam 2018-02 No Notes: Memor ia 0.25 MG 1-22 With food l Oral Tablet 11:18: or milk Her pinon [Xanax] 00 (Same as: Xanax) Alprazolam 2018-02 No Notes: Memor ia 0.25 MG 1-22 With food l Oral Tablet 11:18: or [...] be chewed or crushed. (Same as: Protonix) pantoprazol 2018-02 No Notes: Pepe micki e 1-21 Tablet l 19:15: should not Olla 00 be chewed or crushed. (Same as: Protonix) pantoprazol 2018-02 No Notes: Pepe micki e 1-21 Tablet l 19:15: should not Philip 00 be chewed or crushed. (Same as: Protonix) Phenergan 2018-02 No Notes: Memori a 1-20 (Same as: l 00:41: Phenergan) Philip Phenergan 2018-02 No Notes: Memori a 1-20 (Same as: l 00:41: Phenergan) Philip Phenergan 2018-02 No Notes: Memori a 1-20 (Same as: l 00:41: Phenergan) Philip Phenergan 2018-02 No 25 mg, Memori a 1-20 Route: IM, l 00:40: Q6H, Philip 00 Dosing Weight 74.2, kg, PRN Nausea & Vomiting, Start date: 01/14/19 18:40:00 PROCUREMENT REPRESENTATIVE, Duration: 30 day, Stop date: 02/13/19 18:39:00 PROCUREMENT REPRESENTATIVE Phenergan 2018-02 No 25 mg, Memori a 1-20 Route: IM, l 00:40: Q6H, Olla 00 Dosing Weight 74.2, kg, PRN Nausea & Vomiting, Start date: 01/14/19 18:40:00 PROCUREMENT REPRESENTATIVE, Duration: 30 day, Stop date: 02/13/19 18:39:00 PROCUREMENT REPRESENTATIVE Phenergan 2018-02 No 25 mg, Memori a 1-20 Route: IM, l 00:40: Q6H, Olla 00 Dosing Weight 74.2, kg, PRN Nausea & Vomiting, Start date: 01/14/19 18:40:00 PROCUREMENT REPRESENTATIVE, Duration: 30 day, Stop date: 02/13/19 18:39:00 PROCUREMENT REPRESENTATIVE Dulcolax 2018-02 No Notes: Memoria Laxative 1-19 (Same As: l 16:12: Dulcolax, Olla 00 Bisco-Lax) Dulcolax 2018-02 No Notes: Memoria Laxative 1-19 (Same As: l 16:12: Dulcolax, Philip 00 Bisco-Lax) Dulcolax 2018-02 No Notes: Memoria Laxative 1-19 (Same As: l 16:12: Dulcolax, Olla 00 Bisco-Lax) Levaquin 2018-02 No Notes: Do Pepe micki 1-19 not give l 12:00: w/antacids Philip 00 , dairy pdt & minerals Take 1 hr before or 2 hr after dairy products Levaquin 2018-02 No Notes: Do Pepe micki -19 not give l 12:00: w/antacids Olla 00 , dairy pdt & minerals Take 1 hr before or 2 hr after dairy products Levaquin 2018-02 No Notes: Do Pepe micki -19 not give l 12:00: w/antacids Olla 00 , dairy pdt & minerals Take 1 hr before or 2 hr after dairy products metoprolol 2018-02 No Notes: Memor ia extended 1-18 (Same as: l release 20:49: Toprol XL) Herm ayush 00 May split tab, but do not crush. Albuterol 2018-02 No Notes: Memori a 0.833 MG/ML 1-18 (Same as: l / 20:49: Duoneb) Philip Ipratropium 00 [place] 0.167 MG/ML Inhalant Solution metoprolol 2018-02 No Notes: Memor ia extended 1-18 (Same as: l release 20:49: Toprol XL) Herm ayush 00 May split tab, but do not crush. Albuterol 2018-02 No Notes: Memori a 0.833 MG/ML 1-18 (Same as: l / 20:49: Duoneb) Olla Ipratropium 00 [place] 0.167 MG/ML Inhalant Solution metoprolol 2018-02 No Notes: Memor ia extended 1-18 (Same as: l release 20:49: Toprol XL) Herm ayush 00 May split tab, but do not crush. Albuterol 2018-02 No Notes: Memori a 0.833 MG/ML -18 (Same as: l / 20:49: Duoneb) Philip Ipratropium 00 [place] 0.167 MG/ML Inhalant Solution Docusate 2018-02 No 100 mg = 1 Mem oria Sodium 100 1-18 cap, PO, l MG Oral 16:51: BID, 0 Olla Capsule 00 Refill(s) Famotidine 2018-02 Yes 20 mg = 1 Me moria 20 MG Oral 1-18 tab, PO, l Tablet 16:51: BID, 0 Philip 00 Refill(s) naproxen 2018-02 No 500 mg = 2 Mem oria 250 mg oral 1-18 tab, PO, l tablet 16:51: BID, 0 Philip 00 Refill(s) Docusate 2018-02 No 100 mg = 1 Mem oria Sodium 100 1-18 cap, PO, l MG Oral 16:51: BID, 0 Olla Capsule 00 Refill(s) Famotidine 2018-02 Yes 20 mg = 1 Me moria 20 MG Oral 1-18 tab, PO, l Tablet 16:51: BID, 0 Olla 00 Refill(s) naproxen 2018-02 No 500 mg = 2 Mem oria 250 mg oral 1-18 tab, PO, l tablet 16:51: BID, 0 Philip 00 Refill(s) Docusate 2018-02 No 100 mg = 1 [...] tab, PO, l tablet 16:51: BID, 0 Olla 00 Refill(s) Dulcolax 2018-02 No Notes: Memoria Laxative -18 (Same As: l 15:00: Dulcolax, Philip 00 Correctol) (Do Not Crush) "Do Not Crush" Miralax 2018-02 No Notes: Memoria 1-18 Dissolve l 15:00: in 8 oz of Philip 00 water or juice. (Same as: Miralax) Dulcolax 2018-02 No Notes: Memoria Laxative 1-18 (Same As: l 15:00: Dulcolax, Olla 00 Correctol) (Do Not Crush) "Do Not Crush" Miralax 2018-02 No Notes: Memoria 1-18 Dissolve l 15:00: in 8 oz of Philip 00 water or juice. (Same as: Miralax) Dulcolax 2018-02 No Notes: Memoria Laxative 1-18 (Same As: l 15:00: Dulcolax, Philip 00 Correctol) (Do Not Crush) "Do Not Crush" Miralax 2018-02 No Notes: Memoria 1-18 Dissolve l 15:00: in 8 oz of Olla 00 water or juice. (Same as: Miralax) Naproxen 2018-02 No Notes: Memoria 1-17 (Same as: l 16:38: Naprosyn) Olla Take with food. Naproxen 2018-02 No Notes: Memoria 1-17 (Same as: l 16:38: Naprosyn) Philip 00 Take with food. Naproxen 2018-02 No Notes: Memoria 1-17 (Same as: l 16:38: Naprosyn) Philip 00 Take with food. Famotidine 2018-02 No Notes: Memor ia 20 MG Oral 1-16 (Same as: l Tablet 23:00: Pepcid) Famotidine 2018-02 No Notes: Memor ia 20 MG Oral 1-16 (Same as: l Tablet 23:00: Pepcid) Famotidine 2018-02 No Notes: Memor ia 20 MG Oral 1-16 (Same as: l Tablet 23:00: Pepcid) Levofloxaci 2018-02 No Notes: Pepe micki n 1-16 (Same l 07:00: as:Levaqui Philip 00 n) Levofloxaci 2018-02 No Notes: Pepe micki n 1-16 (Same l 07:00: as:Levaqui Olla 00 n) Levofloxaci 2018-02 No Notes: Pepe micki n 1-16 (Same l 07:00: as:Levaqui Philip 00 n) Docusate 2018-02 No Notes: Memoria Sodium 100 1-15 (Same as: l MG Oral 23:00: Colace) Philip Capsule 00 (Do Not Crush) Docusate 2018-02 No Notes: Memoria Sodium 100 1-15 (Same as: l MG Oral 23:00: Colace) Olla Capsule 00 (Do Not Crush) Docusate 2018-02 No Notes: Memoria Sodium 100 1-15 (Same as: l MG Oral 23:00: Colace) Philip Capsule 00 (Do Not Crush) Acetaminoph 2018-02 No Notes: Do M emoria en 325 MG / 1-15 not exceed l Hydrocodone 19:50: 4gm/day of Olla Bitartrate 00 acetaminop 10 MG Oral hen. Tablet (Same as: [[place] 10/325] 325/10) Acetaminoph 2018-02 No Notes: Do M emoria en 325 MG / 1-15 not exceed l Hydrocodone 19:50: 4gm/day of Olla Bitartrate 00 acetaminop 10 MG Oral hen. Tablet (Same as: [[place] 10/325] 325/10) Acetaminoph 2018-02 No Notes: Do M emoria en 325 MG / 1-15 not exceed l Hydrocodone 19:50: 4gm/day of Olla Bitartrate 00 acetaminop 10 MG Oral hen. Tablet (Same as: [[place] 10/325] 325/10) clopidogrel 2018-02 No Notes: Pepe micki 1-15 (Same As: l 15:02: Plavix) Philip 00 Flomax 2018-02 No Notes: Memoria 1-15 (Same As: l 15:02: Flomax) Philip 00 "Do Not Crush" clopidogrel 2018-02 No Notes: Pepe micki 1-15 (Same As: l 15:02: Plavix) Olla 00 Flomax 2018-02 No Notes: Memoria 1-15 (Same As: l 15:02: Flomax) Philip 00 "Do Not Crush" clopidogrel 2018-02 No Notes: Pepe micki 1-15 (Same As: l 15:02: Plavix) Olla 00 Flomax 2018-02 No Notes: Memoria 1-15 (Same As: l 15:02: Flomax) Olla 00 "Do Not Crush" Morphine 2019- No 2 mg, 1 Memori a 1-15 mL, Route: l 11:04: IVP, Drug Philip form: SOLN, Q4H, Dosing Weight 74.2, kg, PRN Pain Score 7-10, Start date: 01/10/19 5:04:00 PROCUREMENT REPRESENTATIVE, Duration: 30 day, Stop date: 02/09/19 5:03:00 PROCUREMENT REPRESENTATIVE, 0 Morphine 2018- No 2 mg, 1 Memori a 1-15 mL, Route: l 11:04: IVP, Drug Olla 00 form: SOLN, Q4H, Dosing Weight 74.2, kg, PRN Pain Score 7-10, Start date: 01/10/19 5:04:00 PROCUREMENT REPRESENTATIVE, Duration: 30 day, Stop date: 02/09/19 5:03:00 PROCUREMENT REPRESENTATIVE, 0 Morphine 2018- No 2 mg, 1 Memori a 1-15 mL, Route: l 11:04: IVP, Drug form: SOLN, Q4H, Dosing Weight 74.2, kg, PRN Pain Score 7-10, Start date: 01/10/19 5:04:00 PROCUREMENT REPRESENTATIVE, Duration: 30 day, Stop date: 02/09/19 5:03:00 PROCUREMENT REPRESENTATIVE, 0 Streptococc 2018-02 No Notes: Pepe micki us 1-15 Shake well l pneumoniae 09:35: prior to Her pinon serotype 1 51 use (Same capsular as: antigen Prevnar diphtheria 13) [id number] protein conjugate vaccine / Streptococc us pneumoniae serotype 14 capsular antigen diphtheria [id number] protein conjugate vaccine / Streptococc us pneumoniae serotype 18C capsular antigen d Streptococc 2018-02 No Notes: Pepe micki us 1-15 Shake well l pneumoniae 09:35: prior to Her pinon serotype 1 51 use (Same capsular as: antigen Prevnar diphtheria 13) [id number] protein conjugate vaccine / Streptococc us pneumoniae serotype 14 capsular antigen diphtheria [id number] protein conjugate vaccine / Streptococc us pneumoniae serotype 18C capsular antigen d Streptococc 2018-02 No Notes: Pepe micki us 1-15 Shake well l pneumoniae 09:35: prior to Her pinon serotype 1 51 use (Same capsular as: antigen Prevnar diphtheria 13) [id number] protein conjugate vaccine / Streptococc us pneumoniae serotype 14 capsular antigen diphtheria [id number] protein conjugate vaccine / Streptococc us pneumoniae [...] n 1-15 Daily, 0 l 09:19: Refill(s) Tamsulosin 2018-02 Yes 0.4 mg = 1 M emoria hydrochlori 1-15 cap, PO, l de 0.4 MG 09:19: Daily, # Herm ayush Oral 00 30 cap, 0 Capsule Refill(s) [Flomax] metoprolol 2018-02 Yes 50 mg = 1 [...] n 1-15 Daily, 0 l 09:19: Refill(s) Tamsulosin 2018-02 Yes 0.4 mg = 1 M emoria hydrochlori 1-15 cap, PO, l de 0.4 MG 09:19: Daily, # Herm ayush Oral 00 30 cap, 0 Capsule Refill(s) [Flomax] metoprolol 2018-02 Yes 50 mg = 1 [...] Memori a 0.833 MG/ML 1-15 (Same as: :00: Duoneb) Philip Ipratropium 00 [place] 0.167 MG/ML Inhalant Solution Albuterol 2018-02 No Notes: Memori a 0.833 MG/ML 1-15 (Same as: l :00: Duoneb) Philip Ipratropium 00 [place] 0.167 MG/ML Inhalant Solution Albuterol 2018-02 No Notes: Memori a 0.833 MG/ML 1-15 (Same as: l :00: Duoneb) Philip Ipratropium 00 [place] 0.167 MG/ML Inhalant Solution Ondansetron 2018-02 No Notes: Pepe micki 1-15 (Same as: l 08:36: Zofran) Philip 00 MEDICATION WASTE Product Size: 4 mg Product Wasted: ___ mg Albuterol 2018-02 No Notes: SEE Me moria 0.83 MG/ML 1-15 RT l Inhalant 08:36: DOCUMENTAT Her pinon Solution 00 ION (Same as: Proventil) Ondansetron 2018-02 No Notes: Pepe micki 1-15 (Same as: l 08:36: Zofran) Philip 00 MEDICATION WASTE Product Size: 4 mg Product Wasted: ___ mg Albuterol 2018-02 No Notes: SEE Me moria 0.83 MG/ML 1-15 RT l Inhalant 08:36: DOCUMENTAT Her pinon Solution 00 ION (Same as: Proventil) Ondansetron 2018-02 No Notes: Pepe micki 1-15 (Same as: l 08:36: Zofran) Philip 00 MEDICATION WASTE Product Size: 4 mg Product Wasted: ___ mg Albuterol 2018-02 No Notes: SEE Me moria 0.83 MG/ML 1-15 RT l Inhalant 08:36: DOCUMENTAT Her pinon Solution 00 ION (Same as: Proventil) NS 1,000 mL 2018-02 No 1,000 mL, M emoria 15 Rate: 60 l 08:33: ml/hr, Olla 00 Infuse over: 16.7 hr, Route: IV, Dosing Weight 74.2 kg, Total Volume: 1,000, Start date: 01/10/19 2:33:00 PROCUREMENT REPRESENTATIVE, Duration: 1 doses or times, Stop date: 01/10/19 19:14:00 PROCUREMENT REPRESENTATIVE, 1.91, m2, 0 NS 1,000 mL 2018-02 No 1,000 mL, M emoria 03-12 Rate: 60 l 08:33: ml/hr, Olla 00 Infuse over: 16.7 hr, Route: IV, Dosing Weight 74.2 kg, Total Volume: 1,000, Start date: 01/10/19 2:33:00 PROCUREMENT REPRESENTATIVE, Duration: 1 doses or times, Stop date: 01/10/19 19:14:00 PROCUREMENT REPRESENTATIVE, 1.91, m2, 0 NS 1,000 mL 2018-02 No 1,000 mL, M emoria 03-12 Rate: 60 l 08:33: ml/hr, Philip 00 Infuse over: 16.7 hr, Route: IV, Dosing Weight 74.2 kg, Total Volume: 1,000, Start date: 01/10/19 2:33:00 PROCUREMENT REPRESENTATIVE, Duration: 1 doses or times, Stop date: 01/10/19 19:14:00 PROCUREMENT REPRESENTATIVE, 1.91, m2, 0 Morphine 2018-02 No Notes: Memoria -15 (Same l 07:20: as:MORPhin Philip 00 e Sulfate) Zofran 2018-02 No Notes: Memoria -15 (Same as: l 07:20: Zofran) Philip 00 MEDICATION WASTE Product Size: 4 mg Product Wasted: ___ mg Morphine 2018-02 No Notes: Memoria 1-15 (Same l 07:20: as:MORPhin Philip 00 e Sulfate) Zofran 2018-02 No Notes: Memoria 1-15 (Same as: l 07:20: Zofran) Philip 00 MEDICATION WASTE Product Size: 4 mg Product Wasted: ___ mg Morphine 2018-02 No Notes: Memoria 1-15 (Same l 07:20: as:MORPhin Philip 00 e Sulfate) Zofran 2018-02 No Notes: Memoria 1-15 (Same as: l 07:20: Zofran) Philip 00 MEDICATION WASTE Product Size: 4 mg Product Wasted: ___ mg Levaquin 2018-02 No Notes: Memoria 1-15 (Same l 07:17: as:Levaqui Olla 00 n) Levaquin 2018-02 No Notes: Memoria 1-15 (Same l 07:17: as:Levaqui Philip 00 n) Levaquin 2018-02 No Notes: Memoria 1-15 (Same l 07:17: as:Levaqui Olla 00 n) Zofran 2018-02 No Notes: Memoria 1-15 (Same as: l 04:21: Zofran) Philip 00 MEDICATION WASTE Product Size: 4 mg Product Wasted: ___ mg Zofran 2018-02 No Notes: Memoria 1-15 (Same as: l 04:21: Zofran) Olla 00 MEDICATION WASTE Product Size: 4 mg Product Wasted: ___ mg Zofran 2018-02 No Notes: Memoria 1-15 (Same as: l 04:21: Zofran) Philip 00 MEDICATION WASTE Product Size: 4 mg Product Wasted: ___ mg Saline 2018-02 No Notes: Memoria Flush 0.9% 1-15 (Same as: l 04:20: BD Philip 00 Posiflush) Sodium 2018-02 No 1,000 mL, Memori a Chloride 1-15 2,000 l 0.9% 04:20: ml/hr, Olla (Bolus) IV 00 Infuse Over: 0.5 hr, Route: IV, 1,000, Drug form: INJ, ONCE, Priority: STAT, Dosing Weight 74.2 kg, Start date: 01/09/19 22:20:00 PROCUREMENT REPRESENTATIVE, Stop date: 01/09/19 22:20:00 PROCUREMENT REPRESENTATIVE, 0 Saline 2018-02 No Notes: Memoria Flush 0.9% 1-15 (Same as: l 04:20: BD Philip 00 Posiflush) Sodium 2018-02 No 1,000 mL, Memori a Chloride 1-15 2,000 l 0.9% 04:20: ml/hr, Philip (Bolus) IV 00 Infuse Over: 0.5 hr, Route: IV, 1,000, Drug form: INJ, ONCE, Priority: STAT, Dosing Weight 74.2 kg, Start date: 01/09/19 22:20:00 PROCUREMENT REPRESENTATIVE, Stop date: 01/09/19 22:20:00 PROCUREMENT REPRESENTATIVE, 0 Saline 2018-02 No Notes: Memoria Flush 0.9% 1-15 (Same as: l 04:20: BD Philip 00 Posiflush) Sodium 2018-02 No 1,000 mL, Memori a Chloride 1-15 2,000 l 0.9% 04:20: ml/hr, Philip (Bolus) IV 00 Infuse Over: 0.5 hr, Route: IV, 1,000, Drug form: INJ, ONCE, Priority: STAT, Dosing Weight 74.2 kg, Start date: 01/09/19 22:20:00 PROCUREMENT REPRESENTATIVE, Stop date: 01/09/19 22:20:00 PROCUREMENT REPRESENTATIVE, 0 metoprolol 2018-02 Yes 50mg Take 50 mg M D tartrate 1-13 by mouth Anderso (LOPRESSOR) 11:53: twice n 50 mg 22 daily. tablet aspirin 81 2018-02 Yes 81mg Take 81 mg M D mg EC 1-13 by mouth Anderso tablet 11:53: daily. n 22 traMADol 2018-02 Yes 50mg Take 50 mg MD (ULTRAM) 50 1-13 by mouth Arya rso mg tablet 11:53: every 6 n 22 (six) hours as needed. bacitracin 2018-02 Yes Apply MD 500 1-13 topically Anderso unit/gram 11:53: to n ointment 22 affected area(s) twice daily. famotidine 2018-02 Yes 20mg Take 20 mg M D (PEPCID) 20 1-13 by mouth Arya rso mg tablet 11:53: as needed. n 22 diphenhydrA 2018-02 Yes 50mg Take 50 mg MD MINE 1-13 by mouth Anderso (BENADRYL) 11:53: nightly as n 25 mg 22 needed. 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 n 1.1 % 00 of scalp [place] dental teeth with cream cream and spit [...] Name Observation Time Observation Value Comments Source HEIGHT 2020-09-28 12:51:00 175.3 cm WEIGHT 2020-09-28 12:51:00 74.844 kg WEIGHT 2020-09-28 06:00:00 74.9 kg WEIGHT 2020-09-27 06:00:00 72.5 kg HEIGHT 2020-09-26 03:52:00 175.3 cm WEIGHT 2020-09-26 03:52:00 75 kg Systolic blood 2020-12-01 15:50:00 147 mm[Hg] [facility] 2020-12-01 15:50:00 71 mm[facility]Hg[facility] 2020-12-01 15:50:00 18 /min [facility] Oxygen saturation in 2020-12-01 15:50:00 100 /min [facility] Arterial blood by [facility] Pulse oximetry Branch Body temperature 2020-12-01 15:45:[address] [facility] Heart rate 2020-12-01 13:51:00 68 /min [facility] Body height 2020-11-18 14:58:00 175.3 cm [facility] Body weight 2020-11-18 14:58:00 76.2 kg [facility] BMI 2020-11-18 14:58:00 24.80 kg/m2 [facility] Systolic blood 2020-12-01 15:50:00 147 mm[Hg] [facility] Diastolic blood 2020-12-01 15:50:00 71 mm[Hg] [facility] Respiratory rate 2020-12-01 15:50:00 18 /min [facility] Oxygen saturation in 2020-12-01 15:50:00 100 /min [facility] Arterial blood by [place] [employer] mendez Pulse oximetry Branch Body temperature 2020-12-01 15:45:00 36.22 Jessica [facility] Heart rate 2020-12-01 13:51:00 68 /min [facility] Body height 2020-11-18 14:58:00 175.3 cm [facility] Body weight 2020-11-18 14:58:00 76.2 kg [facility] BMI 2020-11-18 14:58:00 24.80 kg/m2 [facility] HEIGHT 2020-09-28 12:51:00 175.3 cm WEIGHT 2020-09-28 12:51:00 74.844 kg WEIGHT 2020-09-28 06:00:00 74.9 kg WEIGHT 2020-09-27 06:00:00 72.5 kg HEIGHT 2020-09-26 03:52:00 175.3 cm WEIGHT 2020-09-26 03:52:00 75 kg Diastolic blood 2020-09-15 19:30:00 75 mm[Hg] [facility] Heart rate 2020-09-15 19:30:00 59 /min [facility] Oxygen saturation in 2020-09-15 19:30:00 98 /min [facility] Arterial blood by [place] [employer] [facility] Pulse oximetry Branch Systolic blood 2020-09-15 19:30:00 146 mm[Hg] [facility] Respiratory rate 2020-09-15 19:21:00 24 /min [facility] Body temperature 2020-09-15 19:15:00 36.17 Jessica [facility] Body height 2020-09-06 18:10:00 175.3 cm [facility] Body weight 2020-09-06 18:10:00 76.3 kg [facility] BMI 2020-09-06 18:10:00 24.83 kg/m2 [facility] Diastolic blood 2020-09-15 19:30:00 75 mm[Hg] [facility] Heart rate 2020-09-15 19:30:00 59 /min [facility] Oxygen saturation in 2020-09-15 19:30:00 98 /min [facility] blood by [facility] [employer] [facility] Systolic blood 2020-09-15 19:30:00 146 mm[Hg] [facility] Respiratory rate 2020-09-15 19:21:00 24 /min [facility] Body temperature 2020-09-15 19:15:00 36.17 Jessica [facility] Body height 2020-09-06 18:10:00 175.3 cm [facility] Body weight 2020-09-06 18:10:00 76.3 kg [facility] BMI 2020-09-06 18:10:00 24.83 kg/m2 [facility] Systolic blood 2020-09-15 19:30:00 146 mm[Hg] [facility] Diastolic blood 2020-09-15 19:30:00 75 mm[Hg] [facility] Heart rate 2020-09-15 19:30:00 59 /min [facility] Oxygen saturation in 2020-09-15 19:30:00 98 /min [facility]ter[facility] blood by [facility] Respiratory rate 2020-09-15 19:21:00 24 /min [facility] Body temperature 2020-09-15 19:15:00 36.17 Jessica [facility] Body height 2020-09-06 18:10:00 175.3 cm [facility] Body weight 2020-09-06 18:10:00 76.3 kg [facility] BMI 2020-09-06 18:10:00 24.83 kg/m2 [facility] Systolic blood 2020-09-15 19:30:00 146 mm[Hg] Univer sity of pressure [facility] Diastolic blood 2020-09-15 19:30:00 75 mm[Hg] Unive rsity of [facility] Heart rate 2020-09-15 19:30:00 59 /min [facility] Oxygen saturation in 2020-09-15 19:30:00 98 /min [facility] Arterial blood by [facility] Pulse oximetry Branch Respiratory rate 2020-09-15 19:21:00 24 /min [facility] Body temperature 2020-09-15 19:15:[address] [facility] Body height 2020-09-06 18:10:00 175.3 cm [facility] Body weight 2020-09-06 18:10:00 76.3 kg [facility] BMI 2020-09-06 18:10:00 24.83 kg/m2 Universi [facility] [place] [place] Systolic blood 2020-09-29 11:17:00 132 mm[Hg] [facility] Diastolic blood 2020-09-29 11:17:00 61 mm[Hg] [facility] 2020-09-29 11:17:00 78 /min [facility] Body temperature 2020-09-29 11:17:00 36.44 Jessica [facility] Respiratory rate 2020-09-29 11:17:00 20 /min [facility] Oxygen saturation in 2020-09-29 11:17:00 97 /min [facility] - Arterial blood by [facility] nter Pulse oximetry Body height 2020-09-28 12:51:00 175.3 cm [facility] Body weight 2020-09-28 12:51:00 74.844 kg [facility] BMI 2020-09-28 12:51:00 24.37 kg/m2 [facility] Systolic (mm Hg) 2020-09-06 19:00:00 Pepe rial Olla Diastolic (mm Hg) 2020-09-06 19:00:00 Mem orial Olla Heart Rate 2020-09-06 19:00:00 [facility] Respitory Rate 2020-09-06 19:00:00 Memori al Olla Systolic (mm Hg) 2020-08-09 20:36:00 Pepe rial Philip Diastolic (mm Hg) 2020-08-09 20:36:00 Mem orial Philip Heart Rate 2020-08-09 20:36:00 [facility] Respitory Rate 2020-08-09 20:36:00 Memori al Philip Systolic (mm Hg) 2020-07-19 19:31:00 Pepe rial Philip Diastolic (mm Hg) 2020-07-19 19:31:00 Mem orial Philip Heart Rate 2020-07-19 19:31:00 [facility] Respitory Rate 2020-07-19 19:31:00 Memori al Philip Height 2020-07-19 19:31:00 175.26 cm [facility] Weight 2020-07-19 19:31:00 [facility] BMI Calculated 2020-07-19 19:31:00 Memori al Philip Temperature Oral (F) 2019-01-19 21:26:00 97.6 F [facility] Heart Rate 2019-01-19 21:26:00 [facility] Respitory Rate 2019-01-19 21:26:00 Memori al Olla Systolic (mm Hg) 2019-01-19 21:26:00 Pepe rial Philip Diastolic (mm Hg) 2019-01-19 21:26:00 Mem orial Olla Temperature Oral (F) 2019-01-19 17:23:00 97.9 F [facility] Heart Rate 2019-01-19 17:23:00 [facility] Respitory Rate 2019-01-19 17:23:00 Memori al Philip Systolic (mm Hg) 2019-01-19 17:23:00 Pepe rial Olla Diastolic (mm Hg) 2019-01-19 17:23:00 Mem orial Philip Temperature Oral (F) 2019-01-19 13:47:00 97.6 F [facility] Olla Heart Rate 2019-01-19 13:47:00 [facility] Respitory Rate 2019-01-19 13:47:00 Ada velázquez Philip Systolic (mm Hg) 2019-01-19 13:47:00 Pepe Palacios Diastolic (mm Hg) 2019-01-19 13:47:00 Eugenia Palacios Height 2019-01-10 12:17:00 170.18 cm [facility] Philip Weight 2019-01-10 03:42:00 [facility] Procedure Date / Time Performing Source Performed Clinician PHACOEMULSIFICATION OF 2020-12-01 [facility] CATARACT WITH INTRAOCULAR 15:03:00 Medica l Branch LENS IMPLANT ASSIGNMENT OF BENEFITS 2020-11-29 [facility] 20:50:21 [facility] POCT-GLUCOSE METER 2020-09-29 Hasolimpia, Zaheer Ali [facility] - 11:24:00 [facility] POCT-GLUCOSE METER 2020-09-29 Hasolimpia, Zaheer Ali [facility] - 07:37:00 [facility] BASIC METABOLIC PANEL (7) 2020-09-29 Jessica, Ramesh [facility] - 05:02:00 [facility] CBC (HEMOGRAM ONLY) 2020-09-29 Jessica, Ramesh [facility] - 05:02:00 [facility] MAGNESIUM 2020-09-29 Jessica, Ramesh [facility] - 05:02:00 [facility] POCT-GLUCOSE METER 2020-09-28 Hasolimpia, Zaheer Ali [facility] - 22:29:00 [facility] US ABDOMEN LIMITED 2020-09-[address] [facility] - 15:36:00 [facility] APTT 2020-09-28 Jessica, Ramesh [facility] - 10:58:00 [facility] POCT-GLUCOSE METER 2020-09-28 Hasolimpia, Zaheer Ali [facility] - 07:47:00 [facility] BASIC METABOLIC PANEL (7) 2020-09-28 Jessica, Ramesh [facility] - 06:37:00 [facility] CBC (HEMOGRAM ONLY) 2020-09-28 Jessica, Ramesh [facility] - 06:37:00 [facility] MAGNESIUM 2020-09-28 [facility] 06:37:00 [facility] APTT 2020-09-28 Jessica, Ramesh [facility] - 00:27:00 [facility] POCT-GLUCOSE METER 2020-09-27 Hasolimpia, Zaheer Ali [facility] - 16:39:00 [facility] POCT-GLUCOSE METER 2020-09-27 Hasolimpia, Zaheer Ali [facility] - 11:16:00 [facility] 2D ECHO W/ DOPPLER 2020-09-27 Jose Rafael [facility] - (CW/PW/COLOR) 09:45:35 [facility] POCT-GLUCOSE METER 2020-09-27 Diana, Zaheer Ali [facility] - 08:43:00 [facility] SARS-COV2/RT-PCR (SLHS & REF 2020-09-27 [facility] LABS) 04:13:00 [facility] BASIC METABOLIC PANEL (7) 2020-09-27 [facility] - 04:13:00 [facility] CBC (HEMOGRAM ONLY) 2020-09-27 Jessica, [facility] - 04:13:00 [facility] MAGNESIUM 2020-09-27 [facility] - 04:13:00 [facility] IRON, TIBC, % SAT. (WITHOUT 2020-09-27 Diana, Zaheer Ali [facility] - FERRITIN) 04:13:00 [facility] FERRITIN 2020-09-27 Diana, Zaheer Ali [facility] - 04:13:00 [facility] VITAMIN B12 AND FOLATE 2020-09-27 Diana, Zaheer Ali [facility] - 04:13:00 [facility] POCT-GLUCOSE METER 2020-09-26 Diaan Zaheer Ali [facility] - 23:06:00 [facility] APTT 2020-09-26 Jessica, Ramesh [facility] - 12:26:00 [facility] ABORH, MANUAL 2020-09-26 [facility]il Lucero [facility] 06:46:00 [facility] XR CHEST 1 VIEW PORTABLE / 2020-09-26 Jorje Covarrubias [facility] - BEDSIDE 05:40:00 [facility] COMPREHENSIVE METABOLIC PANEL 2020-09-26 Jorje Covarrubias [facility] - 04:29:00 [facility] HEMOGLOBIN A1C 2020-09-[address] [facility] - 04:29:00 [facility] HIGH SENSITIVITY TROPONIN I 2020-09-[address] [facility] - 04:29:00 [facility] LIPID PANEL 2020-09-[address] [facility] [address] [facility] - 04:29:00 [facility] CBC W/PLT COUNT & AUTO 2020-09-26 [facility] - DIFFERENTIAL 04:29:00 [facility] B-TYPE NATRIURETIC FACTOR 2020-09-26 [facility] - (BNP) 04:29:00 [facility] TYPE AND SCREEN, AUTOMATED 2020-09-26 [facility] - 04:29:00 [facility] PROTHROMBIN TIME/INR 2020-09-26 [facility] s - 04:28:00 [facility] APTT 2020-09-26 [facility] 04:28:00 [facility] ECG 12-LEAD 2020-09-26 Unknown, Hl7 Doctor [facility] - 03:44:53 [facility] PHACOEMULSIFICATION OF 2020-09-15 [facility] CATARACT WITH INTRAOCULAR 18:32:00 Medica l Branch LENS IMPLANT CBC WITH DIFF 2020-09-13 Robin Wolf [facility] 19:46:00 Medical Branch COVID-19 (ID NOW RAPID 2020-09-13 [facility] TESTING) 19:40:00 Medical Branch ASSIGNMENT OF BENEFITS 2020-09-13 [facility] 19:32:02 [facility] Plan of Care Planned Activity Planned Date Details Comments Source Future Scheduled 2020-10-[address] [facility] - Test 00:00:00 (#1) [code = Medical Center INFLUENZA VACCINE (#1)] Future Scheduled 2020-02-[address] [facility] - Test 00:00:00 (12+) [code = Medical Center DEPRESSION SCREENING (12+)] Future Scheduled 2020-02-27 [...] (1 - Tdap)] Future Scheduled 1945 COVID-19 Vaccination MD [facility] Test 00:00:00 (1) [code = COVID-19 Vaccination (1)] Future Scheduled 1945 COVID-19 VACCINE (1) [facility] - Test 00:00:00 [code = COVID-[address] VACCINE (1)] Encounters Start End Encounter Admission Attending Care Care Encounter Source Date/Time Date/Time Type Type Clinicians Facility Department ID 2020-12-27 Outpatient SULEMA WOLF OPH [id number] Univers 19:23:53 [facility] 2020-12-27 Outpatient R KIRK [facility] OPH [id number] Univers 09:11:23 [facility] 2020-09-26 Inpatient ER ORDOÑEZ-CAM [facility] Cardiology [id number] [facility] 03:36:00 FRANKY MANDUJANO 2020-12-08 2020-12-08 Outpatient J LUIS TANNER [id number] [facility] 14:30:00 14:30:00 04 kumar Palacios 2020-12-07 2020-12-07 Outpatient CIRO TANNER [id number] [facility] 10:45:00 10:45:00 03 kumar Palacios 2020-12-01 2020-12-01 [facility] [id number] Univers 08:45:00 11:16:00 Encounter Robin Langford [id number] [place] [id number] [facility] 020 Branch 2020-12-01 2020-12-01 [facility] [id number] Univers 10:08:00 10:50:00 Robin Langford [id number] [place] [id number] [facility] 020 Branch 2020-11-29 2020-11-29 Laboratory Only, Adc Test [facility] 1.2.840. 114 [id number] Univers 15:49:32 16:04:32 Only Roibn Wolf 350.1.13.1 0 [place] [id number] [facility] 353 Branch 2020-11-29 2020-11-29 Outpatient [facility] [id number] Univers 15:15:00 15:15:00 [id number] ity of [facility] 2020-11-29 2020-11-29 Outpatient R [facility] [id number] Univers 15:15:00 15:15:00 ity of [facility] 2020-11-29 2020-11-29 Orders Doctor ASHLEY 1.2.840.114 [id number] Univers 00:00:00 00:00:00 Only Unassigned, [place] [id number] [facility] [place] [facility] 4.2.7.2.686 Hernán as [id number] [facility] 009 Branch 2020-11-09 2020-11-09 Outpatient R [facility] [id number] Univers 12:00:00 12:00:00 [id number] ity of [facility] 2020-09-26 2020-09-26 [facility] [id number] [facility] 00:00:00 23:59:00 Elle 2020-09-24 2020-09-24 Outpatient STLMLC STLMLC [id number] [facility] 00:[facility]:00 Francymarkus Rip Eugeniakezia heath Outpati ent Clinics 2020-09-15 2020-09-15 Surgery [facility] 1.2.840.114 [id number] Univers 14:11:00 14:51:00 Robin Sumeet Primitivo 350.1.13.10 [place] [id number] [facility] 020 [place] 2020-09-15 2020-09-15 Surgery [facility] 1.2.840.114 [id number] 14:11:00 14:51:00 Era 350.1.13.10 [place] 4.2.7.2.686 Surgical [id number] [place] [address] 2020-09-15 2020-09-[address] [facility] 1.2.039.301 [id number] Univers 12:25:00 14:50:00 Encounter Robin Langford 350.1.13.10 [place] [id number] [facility] [address] [place] [address] 2020-09-15 2020-09-[address] [facility] [id number] 12:25:00 14:50:00 Encounter Robin Langford [id number] [place] 4.2.7.2.686 Surgical [id number] [place] [address] 2020-09-13 2020-09-13 Outpatient R [facility] [id number] Univers 15:15:00 15:15:00 [id number] ity of [facility] 2020-09-13 2020-09-13 Client Evaluator Sharona Pretty Lab Main [facility] 1.2.8 40.114 [id number] Univers 14:29:04 14:44:04 Visit KirkRobin 350.1.13.1 0 [place] Profess[place] [id number] [address] 2020-09-13 2020-09-13 Client Evaluator Sharona Pretty [facility] 1.2.840.114 [id number] 14:29:04 14:44:04 Visit Lab Main Primitivo 350.1.13.10 [place] 4.2.7.2.686 Professio [id number] [address] 2020-09-13 2020-09-13 Laboratory Only, [facility] Test [facility] 1.2.840. 114 [id number] Univers 14:17:45 14:32:45 Only Robin Wolf 350.1.13.1 0 it[place] 4.2.7.2.686 [facility] [id number] [address] 2020-09-13 2020-09-13 Laboratory Only, [facility] 1.2.840.114 [id number] 14:17:45 14:32:45 Only Test Era 350.1.13.10 [place] 4.2.7.2.686 [place] [id number] [facility] 2020-09-13 2020-09-13 Outpatient Angi WOLF [facility] [id number] Univers 14:00:00 14:00:00 ROBIN [facility] 2020-09-13 2020-09-13 Orders Doctor ASHLEY 1.2.840.114 [id number] Univers 00:00:00 00:00:00 Only Unassigned, [place] 350.1.13.10 [place] [facility] 4.2.7.2.686 Hernán [id number] [address] 2020-09-13 2020-09-13 Orders Doctor ASHLEY 1.2.840.114 [id number] 00:00:00 00:00:00 Only Unassigned, ML 350.1.13.10 [place] [facility] 4.2.7.2.686 [id number] 009 2020-09-06 2020-09-07 Outpatient nullFlavo MNA [id number] Memoria 19:00:00 04:59:59 r Neurology 02 l Rockwellkezia Palacios 2020-08-20 2020-08-20 Outpatient Angi WOLF [facility] [id number] Univers 15:45:00 15:45:00 ROBIN [facility] 2020-08-11 2020-08-11 Outpatient STLMLC STLMLC [id number] [facility] St 00:00[facility]00 [facility]00[facility]00 [facility] 2020-08-09 2020-08-10 Outpatient nullFlavo MNA [id number] Memoria 20:00:00 04:59:59 r Neurology 01 l Rockwell Olla 2020-08-03 2020-08-03 Outpatient STLMLC STLMLC [id number] [facility] 2020-07-28 2020-07-28 Outpatient STLMLC STLMLC [id number] [facility] 2020-07-19 2020-07-20 Outpatient nullFlavo MNA [id number] Memoria 19:30:00 04:59:59 r Neurology 00 l Rockwell Philip 2020-07-13 2020-07-13 Outpatient STLMLC STLC [id number] [facility] 2020-07-05 2020-07-05 Outpatient STLMLC STLC [id number] [facility] 2020-06-29 2020-06-29 Outpatient STLMLC STLC [id number] [facility] 2020-06-25 2020-06-25 Outpatient STLMLC STLC [id number] [facility] 2020-06-24 2020-06-24 Outpatient STLMLC STLC [id number] [facility] 2019-01-10 2019-01-20 Inpatient nullFlavo [facility] [id number] Memoria 03:18:46 00:08:00 r Philip 00 l [facility] 2019-01-10 2019-01-10 Inpatient E [facility] MED 7500 [facility] 15:16:00 01:33:00 Results Test Description Test Time Test Comments Results Result Comments Source POC-Glucose meter 2020-09-29 11:42:00 Test Item Value Reference Range Interpretation Comme nts POC-Glucose Meter (test code = 106 mg/dL 70-110 : TESTED AT [facility] [address] [facility] 1538) [facility], 770 30: [employer] Operator/Techni jenifer ID = [id number] for ISIAH EM Lab Interpretation (test code = Normal 51336-4) [facility] [id number] 11:42:00 Test Item Value Reference Range Interpretation Comments POC-GLUCOSE METER 106 mg/dL 70-110 : [facility] (BEAKER) (test code = AUDREY Whitley [facility], 1538) [address]: [employer] Operator/Techni jenifer ID = [id number] for ISIAH COLLINS POCT-GLUCOSE [id number] 07:59:00 Test Item Value Reference Range Interpretation Comments POC-GLUCOSE METER 98 mg/dL 70-110 : TESTED A T [facility] 6720 (BEAKER) (test code = AUDREY Whitley [facility], 1538) [address]: [employer] Operator/Techni jenifer ID = [id number] for ISIAH MANRIQUEZ [id number] 06:20:00 Test Item Value Reference Range Interpretation Comments Magnesium (test code = 2.1 mg/dL 1.6-2.6 16261-6) GRABIEL (test code = GRABIEL) [employer] ID - BS Lab Interpretation (test Normal code = 56442-7) [facility] [id number] 06:20:00 Test Item Value Reference Range Interpretation Comments Sodium (test code = 135 meq/L 136-145 L 2951-2) Potassium (test code = 3.6 meq/L 3.5-5.1 2823-3) Chloride (test code = 99 meq/L 98-107 2075-0) CO2 (test code = 28 meq/L 22-29 8-9) BUN (test code = 18 mg/dL 7-21 3094-0) Creatinine (test code 0.79 mg/dL 0.57-1.25 = 2160-0) Glucose (test code = 102 mg/dL 70-105 2345-7) Calcium (test code = 9.4 mg/dL 8.4-10.2 21934-4) EGFR (test code = 93 mL/min/1.73 [place] [address]-1) NOT ACCURATE CREATININE CLEARANCE IN PREDICTING GLOMERULAR FILTRATION RATE . ESTIMATED GFR I S NOT APPLICABLE FOR DIALYSIS PATIENTS. GRABIEL (test code = GRABIEL) [employer] ID - BS Lab Interpretation Abnormal (test code = 68134-1) [facility]OL[facility] [id number] 06:20:00 Test Item Value Reference Range Interpretation [...] S NOT APPLICABLE FOR DIALYSIS PATIEN TS. [employer] ID - [id number] 06:20:00 Test Item Value Reference Range Interpretation Comments MAGNESIUM (BEAKER) (test code = 2.1 mg/dL 1.6-2.6 627) [employer] ID - BSCBC (Hemogram only)2020-09-29 05:40:00 Test Item Value Reference Range Interpretation Comments WBC (test code = 6690-2) 3.9 See_Comment [A utomated message] The system [employer] generated this result transmitted ref erence range: 3.5 - 10 .5 K/L. The refe rence range was not u sed to interpret this result as normal/abnor mal. RBC (test code = 789-8) 4.16 See_Comment L [Au tomated message] The system [employer] generated this result transmitted ref erence range: 4.63 - 6 .08 M/L. The refe rence range was not u sed to interpret this result as normal/abnor mal. MCHC (test code = 786-4) 31.3 See_Comment L [A utomated message] The system [employer] generated this result transmitted ref erence range: [...] See_Comment [Aut omated message] 777-3) The system [employer] generated this result transmitted ref erence range: 150 - 45 0 K/CU MM. The referen ce range was not u sed to interpret this result as normal/abnor mal. MPV (test code = 10.4 fL 9.4-12.4 20609-7) nRBC (test code = 413) 0 See_Comment [Aut omated message] The system [employer] generated this result transmitted ref erence range: 0 - 0 /1 00 WBC. The refere nce range was not u sed to interpret this result as normal/abnor mal. Lab Interpretation (test Abnormal code = 02173-4) [facility] (HEMOGRAM ONLY)2020-09-29 05:40:00 Test Item Value Reference [...] 0-0 (BEAKER) (test code = 413) POCT-GLUCOSE [id number] 22:41:00 Test Item Value Reference Range Interpretation Comments POC-GLUCOSE METER 97 mg/dL 70-110 : TESTED A T [facility] 6720 (BEAKER) (test code = AUDREY [place], 1538) [address]: [employer] Operator/Techni jenifer ID = [id number] for Stam per, Bee U/S, ABDOMINAL, [id number] 17:39:00Abdomen limited area? Add comment if clarification is needed.->Gall BladderReason for exam:->[facility]igastric pain [facility] : 1935 Sex: [...] Alvarez Verified Date/Time: 09/28/2020 17:39:04 US abdomen [id number] 17:39:00Interface, External Ris In - 09/28/2020 5:44 [...] by: NAYELY ALVAREZ MD on 09/28/2020 05:39 [facility] 11:24:00 Test Item Value Reference Range Interpretation Comments PTT (test code = 78.0 See_Comment H [Automated message] 05380-4) The system [employer] generated this result transmitted ref erence range: 22.5 - 3 6.0 seconds. The reference range was not used to int erpret this result as normal/abnormal . Lab Interpretation (test Abnormal code = 40701-5) [facility] 11:24:00 Test Item Value Reference Range Interpretation Comments PARTIAL THROMBOPLASTIN TIME 78.0 seconds 22.5-36.0 H (BEAKER) (test code = 760) POCT-GLUCOSE [id number] 07:58:00 Test Item Value Reference Range Interpretation Comments POC-GLUCOSE METER 102 mg/dL 70-110 : TESTED A T [facility] 6720 (BEAKER) (test code = AUDREY Angi [place], 1538) [address]: [employer] Operator/Techni jenifer ID = [id number] for Alexandra casas (contract) Kalpesh lazo BASIC METABOLIC [id number] 07:24:00 Test Item Value Reference Range Interpretation [...] S NOT APPLICABLE FOR DIALYSIS PATIEN TS. [employer] ID - PIAYA [id number] 07:24:00 Test Item Value Reference Range Interpretation Comments MAGNESIUM (BEAKER) (test code = 2.1 mg/dL 1.6-2.6 627) [employer] ID - PIAYA LCBC (HEMOGRAM ONLY)2020-09-28 06:59:00 Test Item Value [...] WBC 0-0 (BEAKER) (test code = 413) [id number] 01:15:00 Test Item Value Reference Range Interpretation Comments PARTIAL THROMBOPLASTIN TIME 32.7 seconds 22.5-36.0 (BEAKER) (test code = 760) POCT-GLUCOSE [id number] 16:51:00 Test Item Value Reference Range Interpretation Comments POC-GLUCOSE METER 107 mg/dL 70-110 : TESTED A T [facility] 6720 (BEAKER) (test code = AUDREY [place], 1538) [address]: [employer] Operator/Techni jenifer ID = [id number] for Suzanne Huerta rd ECG 12 [id number] 15:06:28Interface, External Ris In - 09/27/2020 3:06 PM CDTVentricular Rate 74 BPMAtrial Rate 74 BPMP-R Interval 366 msQRS Duration 78 msQ-T Interval 394 msQTC Calculation(Bazett) 437 msP Selma 61 degreesR Selma 66 degreesT Sel[place] 196 degreesSinus rhythm with 1st degree A-V blockMinimal ST depression and T wave inversion in I, II and aVL with mild ST elevation in aVR consider ischemiaAbnormal ECGNo previous ECGs availableConfirmed by MD LUZ, ANDREI ([id number]) on 09/27/2020 3:06:24 [facility] W/Doppler(CW/PW/Color)2020-09-27 14:02:33Ejection FractionSLEH ECHO HEARTLAB MKCKESSON CPACSInterface, External Ris In - 09/27/2020 2:02 PM CDTTransthoracic Echocardiography Report (TTE) Demographics Patient Name JERE RHODES Date ofStudy 09/27/2020 DARLIN Gender Male Visit Number [id number] Race Unknown RoomNumber 8A07 Number Date of 1935 Referring Franky Mantilla Physician Age 85 year(s) Bobbin Hauler Darlene Lares [facility] Slab Tripper Jovanni Benz Interpreting [facility] Physician James Chirinos MD Procedure Type of [...] Diastolic: 1.04 cm LVEDV Hernandez's:63.52 ml LVESV Hernadnez's:30.45 ml LVEF Hernandez's: 52.1 % LVEDVI: 34 [...] LVOT CO: 3.61 l/min LVOT CI: 1.93 l/min/m^2CPomerado HospitalARS-CoV2/RT-PCR (Asymptomatic ONLY)2020-09-27 13:03:00 Test Item Value Reference Range Interpretation Comments SARS-COV2/RT-PCR Negative Not Detected, (test code = Negative, See 36294-7) external report for linked test SARS-COV-2 [facility] (test code = 53512-2) GRABIEL (test code = Negative result for [...] of the Act. Fact Sheet for Healthcare Providers:https://www.Calix/sites/default/f carmen/product/documents/F act_Sheet_HC_Providers_L gke_CZQU-OgB-2.pdf Fact Sheet for Healthcare Patients:https://www.Prim Laundry/sites/default/fi les/product/documents/Fa ct_Sheet_Patients_Lyra_S ARS-CoV-2.pdf Performing Laboratory:[facility] [place] [address] [facility] ([facility])2020-09-27 13:03:00 Test Item Value Reference Range Interpretation Comments SARS-COV2/RT-PCR (test Negative Not Detected, Negative, code = 9107109) See external report for linked test SARS-COV-2 PERFORMING LAB [facility] JIMENEZ (test code = 0597677) Negative result for this test determines that [...] 564(g) of the Act.Fact Sheet for Healthcare Providers:https://www.Maraquia/sites/default/files/product/documents/Fact_Shee d_GE_Yuoxhykwl_Fszp_LLIO-MhC-8.pdfFact Sheet for Healthcare Patients:https://www.Maraquia/sites/default/files/product/ documents/Usfk_Wqvtc_Jsotrsum_Dnoe_NQUL-TcA-6.pdfPerforming Laboratory:[address] [facility].[place], [place] [address]FLWZ-YLZACDT METER 2020-09-27 11:29:00 Test Item Value Reference Range Interpretation Comments POC-GLUCOSE METER 124 mg/dL 70-110 H : Notified RN/MD: (HANNAH) (test code = TESTED AT [place] [address] 1538) [facility], [address]: [employer] Operator/Techni jenifer ID = [id number] for PH INISEE, DARRYL POCT-GLUCOSE [id number] 08:54:00 Test Item Value Reference Range Interpretation Comments POC-GLUCOSE METER 135 mg/dL 70-110 H : TESTED A T [place] [address] (HANNAH) (test code = KHUSHIHARRIS [facility], 1538) [address]: [employer] Operator/Techni jenifer ID = [id number] for PH INISEE, DARRYL Vitamin B12 and [id number] 05:55:00 Test Item Value Reference Range Interpretation Comments Vitamin B12 (test 578 pg/mL 213-816 code = 2132-9) Folate (test code = 18.00 ng/mL See_Comment [Automa valentina 2284-8) message] The system which generated this result transmit valentina reference range : >=7.00. The reference range was not used to interpret this result as normal/abnormal . GRABIEL (test code = GRABIEL) [employer] Operator ID - CLARA Grajeda Lab Interpretation Normal (test code = 97521-2) [facility] 05:[facility]00 Test Item Value Reference Range Interpretation Comments Ferritin (test code = 35.96 ng/mL 5-275 2276-4) GRABIEL (test code = GRABIEL) [employer] Operator ID - CLARA Lab Interpretation (test Normal code = 63519-5) [facility] 05:55:00 Test Item Value Reference Range Interpretation Comments FERRITIN (BEAKER) (test code = 35.96 ng/mL 5.00-275.00 361) [employer] Operator ID Rip ELIZABETH MVITAMIN B12 AND [id number] 05:55:00 Test Item Value Reference Range Interpretation Comments VITAMIN B12 578 pg/mL 213-816 (BEAKER) (test code = 774) FOLATE (BEAKER) 18.00 ng/mL See_Comment [Automated message] (test code = 362) The system which generated this result transmitted ref erence range: >=7.00. The reference range was not used to interpr et this result as normal/abnormal . [employer] Operator ID - CLARA Saldanaon, TIBC, % sat. (without ferritin)2020-09-27 05:10:00 Test Item Value Reference Range Interpretation Comments Iron (test code = 2498-4) 37.0 ug/dL 40-160 L TIBC (test code = 2500-7) 404 ug/dL 250-450 Iron % Saturation (test 9 % 20-55 L code = 2502-3) GRABIEL (test code = GRABIEL) [employer] Operator ID - CLRAA Grajeda Lab Interpretation (test Abnormal code = 26598-6) [facility]IRON, TIBC, % SAT. (WITHOUT FERRITIN)2020-09-27 05:10:00 Test Item Value Reference Range Interpretation Comments IRON (BEAKER) (test code = 547) 37.0 ug/dL 40.0-160.0 L TOTAL IRON BINDING CAPACITY 404 ug/dL 250-450 (BEAKER) (test code = 769) IRON % SATURATION (2) (BEAKER) 9 % 20-55 L (test code = 2590) [employer] Operator AIYANA ELIZABETH MBASIC METABOLIC [id number] 04:39:00 Test Item Value Reference Range Interpretation [...] S NOT APPLICABLE FOR DIALYSIS PATIEN TS. [employer] Operator ID Rip ELIZABETH [id number] 04:39:00 Test Item Value Reference Range Interpretation Comments MAGNESIUM (BEAKER) (test code = 2.3 mg/dL 1.6-2.6 627) [employer] Operator ID Rip ELIZABETH MCBC (HEMOGRAM ONLY)2020-09-27 04:22:00 Test Item Value [...] 0-0 (BEAKER) (test code = 413) POCT-GLUCOSE [id number] 23:19:00 Test Item Value Reference Range Interpretation Comments POC-GLUCOSE METER 109 mg/dL 70-110 : TESTED A T [facility] 67[address] (BEAKER) (test code = [place] [place], 1538) [address]: [employer] Operator/Techni jenifer ID = [id number] for FRANCIA SANCHES [id number] 13:27:00 Test Item Value Reference Range Interpretation Comments PARTIAL THROMBOPLASTIN TIME 75.7 seconds 22.5-36.0 H (BEAKER) (test code = 760) Hemoglobin [id number] 08:25:00 Test Item Value Reference Range Interpretation Comments Hemoglobin A1C (test code = 4548-4) 6.7 % 4.3-6.1 H Lab Interpretation (test code = Abnormal 41825-7) [facility] HospitalHEMOGLOBIN [id number] 08:25:00 Test Item Value Reference Range Interpretation Comments HEMOGLOBIN A1C (BEAKER) (test code = 6.7 % 4.3-6.1 H 368) RAD, CHEST, 1 VIEW, NON [id number] 08:15:00Reason for exam:->shortness of breath Should this be performed at the bedside?->[facility] : 1935 Sex: MFINAL REPORT INDICATION: shortness of breath COMPARISON: None ANTON HNIQUE: Single frontal view of the chest. FINDINGS: Lungs and pleura: Clear lungs. No effusion.Heartand mediastinum: Normal heart size. Unremarkable mediastinal contours.Osseous structures: No acute abnormality.Other: None. IMPRESSION: No acute intrathoracic abnormality. Signed: Yaneth Gifford Verified Date/Time: 09/26/2020 08:15:42 Reading Location: [address] Neuro Reading Room XR chest 1 view portable / [id number] 08:15:00 Interface, External Ris In - 09/26/2020 8:17 AM CDTFINAL REPORT INDICATION: shortness of breath COMPARISON: None TECHNIQUE: Single frontal view of the chest. FINDINGS: Lungs andpleura: Clear lungs. No effusion.Heart and mediastinum: Normal heart size. Unremarkable mediastinal c ontours.Osseous structures: No acute abnormality.Other: None. IMPRESSION: No acute intrathoracic abnormality. Signed: Yaneth Gifford Verified Date/Time: 09/26/2020 08:15:42 Reading Location: [address] Neuro Reading Room [facility], [id number] 07:15:00 Test Item Value Reference Range Interpretation Comments ABO Grouping (test code = 2588) B Rh Factor (test code = 2589) POS [facility] HospitalType and screen, [id number] 06:19:00 Test Item Value Reference Range Interpretation Comments ABO/RH AUTOMATED (BEAKER) (test B POSITIVE code = 2260) Ab Scrn (test code = 890-4) NEGATIVE [facility] HospitalAPTT2021 05:20:00 Test Item Value Reference Range Interpretation Comments PARTIAL THROMBOPLASTIN TIME 111.9 seconds 22.5-36.0 H (BEAKER) (test code = 760) Patient on hep drippingComprehensive metabolic [id number] 05:17:00 Test Item Value Reference Range Interpretation Comments Protein, Total 6.7 See_Comment [Automated (test code = message] The 2885-2) system which generated this result transmit valentina reference range : 6.0 - 8.3 gm/dL . The reference range was not u sed to interpret th is result as normal/abnormal . Albumin (test code 3.6 g/dL 3.5-5 = 82377-9) Alkaline 102 U/L 40-150 Phosphatase (test code = 6768-6) Total Bilirubin 0.4 mg/dL 0.2-1.2 (test code = 1975-2) Sodium (test code = 138 meq/L 038-468 6645-2) Potassium (test 4.0 meq/L 3.5-5.1 code = 2823-3) Chloride (test code 102 meq/L 98-107 = 2075-0) CO2 (test code = 24 meq/L 22-29 2027-9) BUN (test code = 16 mg/dL 7-21 3094-0) Creatinine (test 0.91 mg/dL 0.57-1.25 code = 2160-0) Glucose (test code 103 mg/dL 70-105 = 2345-7) Calcium (test code 9.2 mg/dL 8.4-10.2 = 30539-6) AST (test code = 29 U/L 5-34 1920-8) ALT (test code = 24 U/L 6-55 1742-6) EGFR (test code = 79 mL/min/1.73 [place] [address]-0) NOT ACCURATE CREATININE CLEARANCE IN PREDICTING GLOMERULAR FILTRATION RATE . ESTIMATED GFR I S NOT APPLICABLE FOR DIALYSIS PATIEN TS. GRABIEL (test code = [employer] Operator ID - DB GRABIEL) [facility] HospitalLipid [id number] 05:17:00 Test Item Value Reference Range Interpretation Comments Triglycerides (test 90 mg/dL code = 2571-8) Cholesterol (test code 171 mg/dL = 2093-3) HDL (test code = 39 mg/dL 2084-9) LDL Calculated (test 114 mg/dL code = 07984-4) GRABIEL (test code = GRABIEL) Triglyceride Reference Range: Low Risk <150 Borderline 150-199 High Risk 200-499 Very High Risk >=500 Cholesterol Reference Range: Low Risk <200 Borderline 200-239 High Risk >240 HDL Cholesterol Reference Range: Low Risk >=60 High Risk <40 LDL Cholesterol Reference Range: Optimal <100 Near Optimal 100-129 Borderline 130-159 High 160-189 Very High >=190 [employer] Operator ID - DB [facility] HospitalCOMPREHENSIVE METABOLIC [id number] 05:17:00 Test Item Value Reference Range Interpretation [...] S NOT APPLICABLE FOR DIALYSIS PATIEN TS. [employer] Operator ID - DBLIPID [id number] 05:17:00 Test Item Value Reference Range Interpretation Comments TRIGLYCERIDES (BEAKER) (test code = 90 mg/dL 540) CHOLESTEROL (BEAKER) (test code = 171 mg/dL 631) HDL CHOLESTEROL (BEAKER) (test code 39 mg/dL = 976) LDL CHOLESTEROL CALCULATED (BEAKER) 114 mg/dL (test code = 633) Triglyceride Reference Range: Low Risk <150 Borderline 150-199 High Risk 200-499 Very High Risk >=500Cholesterol Reference Range: Low Risk <200 Borderline 200-239 High Risk >240HDL Cholesterol Reference Range: Low Risk >=60 High Risk <40LDL Cholesterol Reference Range: Optimal <100 Near Optimal 100-129 Borderline 130-159 High 160-189 Very High >=190 [employer] Operator ID - DBB-type Natriuretic Factor (BNP)2020-09-26 05:16:00 Test Item Value Reference Range Interpretation Comments BNP (test code = 69149-4) 686 pg/mL 0-100 H GRABIEL (test code = GRABIEL) [employer] Operator ID - DB Lab Interpretation (test Abnormal code = 62655-9) [facility] HospitalB-TYPE NATRIURETIC FACTOR (BNP)2020-09-26 05:16:00 Test Item Value Reference Range Interpretation Comments B-TYPE NATRIURETIC PEPTIDE (BEAKER) 686 pg/mL 0-100 H (test code = 700) [employer] Operator ID - DBHigh Sensitivity Troponin [id number] 05:14:00 Test Item Value Reference Range Interpretation Comments Troponin I HS 175 pg/ml See_Comment H [Automated (test code = message] The 72912-2) system which generated this result transmitted reference range : <=35. The reference range was not used to interpret this result as normal/abnormal . GRABIEL (test code = [employer] Operator ID - GRABIEL) DBThe FORGE OPERATOR STAT High Sensitivity Troponin-I results should be used in conjunction with other diagnostic information such as ECG, clinical observations and information, and patient symptoms to aid in the diagnosis of OH. Lab Interpretation Abnormal (test code = 81008-6) [facility] HospitalHIGH SENSITIVITY TROPONIN [id number] 05:14:00 Test Item Value Reference Range Interpretation Comments HIGH SENSITIVITY 175 pg/ml See_Comment H [Automated message] TROPONIN I (test code The sy nara which = 8775292) generated this result transmitted ref erence range: <=35. Th e reference range was not used to int erpret this result as normal/abnormal . [employer] Operator ID - DBThe FORGE OPERATOR STAT High Sensitivity Troponin-I results should be used in conjunctionwith other diagnostic information such as ECG, clinical observations and information, and patient symptoms to aid in the diagnosis of OH.Prothrombin time/[id number] 05:07:00 Test Item Value Reference Interpretation Comments Range Protime (test code = 15.6 See_Comment H [Autom ated 8722-2) message] The system which generated this result transmitted reference range : 11.9 - 14.2 seconds. The reference range was not used to interpret this result as normal/abnormal . INR (test code = 1.26 See_Comment [Automated 1063-6) message] The system which generated this result [...] valves. Lab Interpretation Abnormal (test code = 17213-7) [facility] HospitalPROTHROMBIN TIME/[id number] 05:07:00 Test Item Value Reference Range Interpretation Comments PROTIME (BEAKER) 15.6 seconds 11.9-14.2 H (test code = 759) INR (BEAKER) (test 1.26 See_Comment [Automat ed message] code = 370) The system [employer] generated this result transmitted ref erence range: [...] 4.1 See_Comment [A utomated message] The system [employer] generated this result transmitted ref erence range: 3.5 - 10 .5 K/L. The refe rence range was not u sed to interpret this result as normal/abnor mal. RBC (test code = 789-8) 3.65 See_Comment L [Au tomated message] The system [employer] generated this result transmitted ref erence range: 4.63 - 6 .08 M/L. The refe rence range was not u sed to interpret this result as normal/abnor mal. MCHC (test code = 786-4) 31.2 See_Comment L [A utomated message] The system [employer] generated this result transmitted ref erence range: [...] L [Aut omated message] 777-3) The system [employer] generated this result transmitted ref erence range: 150 - 45 0 K/CU MM. The referen ce range was not u sed to interpret this result as normal/abnor mal. MPV (test code = 10.3 fL 9.4-12.4 53664-5) nRBC (test code = 413) 0 See_Comment [Aut omated message] The system [employer] generated this result transmitted ref erence range: [...] See_Comment [Aut omated message] 670) The system [employer] generated this result transmitted ref erence range: 1.78 - 5 .38 K/L. The refe rence range was not u sed to interpret this result as normal/abnor mal. # Lymphs (test code = 1.01 See_Comment L [Auto mated message] 414) The system [employer] generated this result transmitted ref erence range: 1.32 - 3 .57 K/L. The refe rence range was not u sed to interpret this result as normal/abnor mal. # Monos (test code = 0.44 See_Comment [Autom ated message] 415) The system [employer] generated this result transmitted ref erence range: 0.30 - 0 .82 K/L. The refe rence range was not u sed to interpret this result as normal/abnor mal. # Eos (test code = 416) 0.16 See_Comment [Au tomated message] The system [employer] generated this result transmitted ref erence range: 0.04 - 0 .54 K/L. The refe rence range was not u sed to interpret this result as normal/abnor mal. # Baso (test code = 417) 0.02 See_Comment [A utomated message] The system [employer] generated this result transmitted ref erence range: 0.01 - 0 .08 K/L. The refe rence range was not u sed to interpret this result as normal/abnor mal. Immature 0 % 0-1 Granulocytes-Relative (test code = 2801) Lab Interpretation (test Abnormal code = 33602-5) [facility] W/PLT COUNT & AUTO [id number] 04:49:00 Test Item Value Reference Range Interpretation [...] 0-1 PERCENT (BEAKER) (test code = 2801) COVID-19 (ID NOW RAPID TESTING)2020-09-13 20:10:03 Test Item Value Reference Range Interpretation Comments SARS-CoV-2 Rapid ID NOW Not Detected Not Detected (test code = 86692-6) GRABIEL (test code = GRABIEL) ID NOW COVID-19 Assay is an isothermal nucleic acid amplification test intended for the qualitative detection of nucleic acid from SARS-CoV-2 viral RNA in nasopharyngeal (BUDGET COORDINATOR) specimens. It is used under Emergency Use Authorization (EUA) by FDA. The limit of detection (LOD) of the assay is 125 Genome Equivalents/mL. A positive result is indicative of the presence of SARS-CoV-2 RNA. ?Clinical correlation with patient history and other diagnostic information is necessary to determine patient infection status. A negative (Not Detected) result does not preclude SARS-CoV-2 infection. In patients with clinical symptoms and other tests that are consistent with SARS-CoV-2 infection, negative results should be treated as presumptive negative and a new specimen should be tested with alternative PCR molecular test. Invalid: Please collect a new specimen for repeat patient testing if clinically indicated. Lab Interpretation Normal (test code = 31745-5) [facility] WITH [id number] 19:54:17 Test Item Value Reference Range Interpretation Comments WBC (test code = See_Comment [Automated 2990-2) message] The sy stem which generated this result transmitted reference range : 4.20 - 10.70 10*3/?L. The reference range was not used to interpret this result as normal/abnormal . RBC (test code = See_Comment L [Automated 469-8) message] The sy stem which generated this result transmitted reference range : 4.26 - 5.52 10*6/?L. The reference range was not used to interpret this result as normal/abnormal . HGB (test code = 11.8 g/dL 12.2-16.4 L 718-7) HCT (test code = 38.4 % 38.4-49.3 4544-3) MCV (test code = 94.6 fL 81.7-95.6 787-2) MCH (test code = 29.1 pg 26.1-32.7 785-6) MCHC (test code = 30.7 g/dL 31.2-35.0 L 786-4) RDW-SD (test code = 52.3 fL 38.5-51.6 H 84459-6) RDW-CV (test code = 15.1 % 12.1-15.4 788-0) PLT (test code = See_Comment [Automated 777-3) message] The sy stem which generated this result transmitted reference range : 150 - 328 10*3/ ?L. The reference r sheryl was not used to interpret this result as normal/abnormal . MPV (test code = 10.2 fL 9.8-13.0 83239-6) NRBC/100 WBC (test See_Comment [Automat ed code = 8168091275) message] The system which generated this result transmitted reference range : 0.0 - 10.0 /100 WBCs. The refer ence range was not u sed to interpret th is result as normal/abnormal . NRBC x10^3 (test code <0.01 See_Comment [Auto mated = 5258767211) message] The s ystem which generated this result transmitted reference range : 10*3/?L. The reference range was not used to interpret this result as normal/abnormal . GRAN MAT (NEUT) % 59.2 % (test code = 770-8) IMM GRAN % (test code 0.40 % = 6332807367) LYMPH % (test code = 26.7 % 736-9) MONO % (test code = 10.6 % 5905-5) EOS % (test code = 2.7 % 713-8) BASO % (test code = 0.4 % 706-2) GRAN MAT x10^3(ANC) 2.63 10*3/uL 1.99-6.95 (test code = 0807587788) IMM GRAN x10^3 (test <0.03 0.00-0.06 code = 0475794160) LYMPH x10^3 (test code 1.19 10*3/uL 1.09-3.23 = 731-0) MONO x10^3 (test code 0.47 10*3/uL 0.36-1.02 = 742-7) EOS x10^3 (test code = 0.12 10*3/uL 0.06-0.53 711-2) BASO x10^3 (test code <0.03 0.01-0.09 = 704-7) Lab Interpretation Abnormal (test code = 75640-9) [facility] [id number] 00:22:00Yellow *NA*(01/15/19 6:22 PM)[facility] [id number] 00:22:00Clear (01/15/19 6:22 PM)[facility] [id number] 00:22:00 Test Item Value Reference Range Interpretation Comments UA Spec Grav (test code = UA Spec 1.023 1 Grav) [facility] [id number] 00:22:00 Test Item Value Reference Range Interpretation Comments UA pH (test code = UA pH) 5.0 1 5.0-8.0 [facility] [id number] 00:22:00Negative (01/15/19 6:22 PM) [facility] [id number] 00:22:00Negative *NA*(01/15/19 6:22 PM)[facility] [id number] 00:22:00Negative *NA*(01/15/19 6:22 PM)[facility] [id number] 00:22:00Negative (01/15/19 6:22 PM) [facility] [id number] 00:22:00Negative (01/15/19 6:22 PM) [facility] [id number] 00:22:00Negative (01/15/19 6:22 PM) [facility] [id number] 00:22:00None Seen (01/15/19 6:22 PM) [facility] [id number] 00:22:001[facility] UWMLX6043-18-74 00:22:001[facility] RNRJT7969-04-20 00:22:00 Yellow *NA*(01/15/19 6:22 PM)[facility] [id number] 00:22:00 Clear (01/15/19 6:22 PM)[facility] [id number] 00:22:00 Test Item Value Reference Range Interpretation Comments UA Spec Grav (test code = UA Spec 1.023 1 Grav) [facility] [id number] 00:22:00 Test Item Value Reference Range Interpretation Comments UA pH (test code = UA pH) 5.0 1 5.0-8.0 [facility] [id number] 00:22:00Negative (01/15/19 6:22 PM) [facility] [id number] 00:22:00Negative *NA*(01/15/19 6:22 PM)[facility] [id number] 00:22:00Negative *NA*(01/15/19 6:22 PM)[facility] [id number] 00:22:00Negative (01/15/19 6:22 PM) [facility] [id number] 00:22:00Negative (01/15/19 6:22 PM) [facility] [id number] 00:22:00Negative (01/15/19 6:22 PM) [facility] WIGJQ8146-79-20 00:22:00None Seen (01/15/19 6:22 PM) [facility] UJFWB6078-04-72 00:22:001[facility] OZVNO3029-02-62 00:22:001[facility] [id number] 00:22:00 Yellow *NA*(01/15/19 6:22 PM)[facility] [id number] 00:22:00 Clear (01/15/19 6:22 PM)[facility] [id number] 00:22:00 Test Item Value Reference Range Interpretation Comments UA Spec Grav (test code = UA Spec 1.023 1 Grav) [facility] [id number] 00:22:00 Test Item Value Reference Range Interpretation Comments UA pH (test code = UA pH) 5.0 1 5.0-8.0 [facility] [id number] 00:22:00Negative (01/15/19 6:22 PM) [facility] [id number] 00:22:00Negative *NA*(01/15/19 6:22 PM)[facility] [id number] 00:22:00Negative *NA*(01/15/19 6:22 PM)[facility] [id number] 00:22:00Negative (01/15/19 6:22 PM) [facility] [id number] 00:22:00Negative (01/15/19 6:22 PM) [facility] [id number] 00:22:00Negative (01/15/19 6:22 PM) [facility] [id number] 00:22:00None Seen (01/15/19 6:22 PM) [facility] [id number] 00:22:001[facility] KVDTA1004-53-04 00:22:001[facility]annCHEM VNCRQ7497-67-40 10:48:002.3 [facility]annCHEM WGLVU6485-37-06 10:48:003.0[facility]annELECTROLYTES 2019-01-14 10:48:0010.3[facility] AmiuhivEYOALMYOKGVX9635-25-57 10:48:77846 [facility] GvatoppQWDYFTUHOCVV3839-58-33 10:48:0015[facility]annELECTROLYTES 2019-01-14 10:48:000.69[facility] YulukqsSBGJFORAVUXZ4176-89-45 10:48:71246 [facility] UbjixjgPLZVZIBEUFZQ6425-19-54 10:48:004.3[facility]annELECTROLYTES 2019-01-14 10:48:49399Htgvfwkt TmdxueuHIQXTHALAKHR3583-43-20 10:48:0026[facility] KgntrauTMCKECYFSJBM9730-61-02 10:48:008.9[facility] VloppuzHXGBEGPLDTDB5649-43-95 10:48:0087Mem[facility] YvelmpkTKBTUMLFSY6641-59-29 10:48:002.6[facility] Olla WHYCRGMDTB1012-37-00 10:48:003.79[facility] JhxujscJQXXKLFIDI9757-74-91 10:48:00 11.1[facility] ZijxjppLFMKEHHKVT0953-14-65 10:48:0034.9[facility]annHEMATOLOGY 2019-01-14 10:48:0092.0[facility] YlrdqjqUYMKEHNDHQ2518-66-35 10:48:00 Test Item Value Reference Range Interpretation Comments MCH (test code = MCH) 29.3 pg 27.0-31.0 [facility] FcmzvnnKNEEAAOMEA4515-82-72 10:48:0031.8[facility]annHEMATOLOGY 2019-01-14 10:48:0016.5[facility] WngypuuRYRXKXSXYU4774-94-01 10:48:95216Bsvtgsrt PchepiwLJVTIKAKMC4893-05-54 10:48:008.3[facility] XigoczuKXXRRWAPIO9348-51-78 10:48:0066.8[facility] TxjhrvyEFHWMDHOYB7736-48-40 10:48:0012.6[facility] Philip XNIDWNLTML4776-16-98 10:48:008.4[facility] FmagnduCKVCNUQFMV5166-20-45 10:48:00 11.5[facility] IizsjduSTLNLGQXNX3143-28-52 10:48:000.7[facility]annHEMATOLOGY 2019-01-14 10:48:001.7[facility] DydigazTGEGOPGOKT4120-31-22 10:48:000.3[facility] KnnynfnXENOJILQJH0555-06-34 10:48:000.2[facility] YznucckKKODRWBPSB5130-13-90 10:48:000.3[facility] UwmhnrgERZLZWBIFAYY6783-03-80 10:48:0087[facility] Olla YTKFNBHXLA8802-85-83 10:48:002.6[facility] DmsarxuUHGJYDMVKS6363-13-12 10:48:00 3.79[facility] KnrhvzlNNBJKIYLFO4688-52-87 10:48:0011.1[facility]annHEMATOLOGY 2019-01-14 10:48:0034.9[facility] WfjwzfyDPNFVKARDA1002-43-27 10:48:0092.0[facility] LeutoolJJWMOAGVAQ5093-37-30 10:48:00 Test Item Value Reference Range Interpretation Comments MCH (test code = MCH) 29.3 pg 27.0-31.0 [facility] RhynusmVVDAGJKFRE6983-99-83 10:48:0031.8[facility]annHEMATOLOGY 2019-01-14 10:48:0016.5[facility] SyeiglxVXHMUHTRXU7436-82-73 10:48:39929Jcsdanvk PxklprrIRDMGFCTHP6561-30-93 10:48:008.3[facility] HorxqyeVZTUAVLVED4598-04-00 10:48:0066.8[facility] LynitllAAPMYNKHNC1607-12-98 10:48:0012.6[facility] [facility]lla MZPTXAXFOE2069-08-07 10:48:008.4[facility] HzaqhphGOOULTQVZP8550-09-07 10:48:00 11.5[facility] PuabtdsMETODPPSMO0688-20-34 10:48:000.7[facility] HermannHEMATOLOGY 2019-01-14 10:48:001.7[facility] ZjrluhvJSEWBNBCUH4099-49-49 10:48:000.3[facility] VxaakqiIWSYNHDRUV4488-54-07 10:48:000.2[facility] VvzedfcTHTKGWDEEY7469-77-71 10:48:000.3[facility] HermannCHEM XCZRI6800-55-77 10:48:002.3[facility] HermannCHEM NOWZN8600-79-62 10:48:003.0[facility] HideflpMUWUGKOTSRVV1347-06-96 10:48:0010.3 [facility] OzhkydaTAFRWZBVOAMU7288-39-89 10:48:14522Zrvzgkmv HermannELECTROLYTES 2019-01-14 10:48:0015[facility] SxzredaPDBDCQVWJHLR7993-84-80 10:48:000.69[facility] AmczqclUWWPKIFZIVJU8243-16-86 10:48:94502Xelljfcz XxqufpmIKAOGWCKWXWB5555-93-43 10:48:004.3[facility] ZpohebjIZTGDPPUNXYD1638-44-89 10:48:87720Gtnlyvhy Philip NWTJVYTFRPFF2731-44-86 10:48:0026[facility] OhyaznmNNCPXQDXBNKY6650-02-57 10:48:00 8.9[facility] OqdxgwgBJGFMMHPEMSR1286-40-43 10:48:0087[facility] HermannHEMATOLOGY 2019-01-14 10:48:002.6[facility] PmaavxcATNBLMOKON1954-53-94 10:48:003.79[facility] KvnpwwjINVTHOPYWO6237-18-79 10:48:0011.1[facility] GgnbggoPLNFZGXPIK6767-13-21 10:48:0034.9[facility] AszfbozXTUZYGCHWD9426-36-19 10:48:0092.0[facility] IPHIBMOBIV8327-41-50 10:48:00 Test Item Value Reference Range Interpretation Comments MCH (test code = MCH) 29.3 pg 27.0-31.0 [facility] DiyzmkgGVATMNOCGB6909-91-62 10:48:0031.8[facility] HermannHEMATOLOGY 2019-01-14 10:48:0016.5[facility] RrzyuirGBRNYANZCO5208-40-12 10:48:32499Vkwyoglo MkmrvmqSLCIDNWFJR7836-53-50 10:48:008.3[facility] DucohfzOAUKZWWEEH1503-90-66 10:48:0066.8[facility] XtifcthHXKOSCRMCN1318-25-00 10:48:0012.6[facility] MZMZKUXFCJ1520-85-11 10:48:008.4[facility] GdmlogtLWRMEKWVOY4201-97-77 10:48:00 11.5[facility] HclbvuwTAESOENDMY9872-35-94 10:48:000.7[facility]annHEMATOLOGY 2019-01-14 10:48:001.7[facility] FeqzohjMAKJAUBJTR0565-28-51 10:48:000.3[facility] GzthqwfJSWPWMYGSV3699-92-52 10:48:000.2[facility] WboxqdyJWAABSKLIF6681-12-52 10:48:000.3[facility] HermannCHEM MTKMY0861-34-01 10:48:002.3[facility]annCHEM YBRCE8631-96-72 10:48:003.0[facility] LejidsbOHVKZYTIGZVQ3942-33-67 10:48:0010.3 [facility] OugciavZQMZRCROECRW7411-66-30 10:48:75272Luxrexax HermannELECTROLYTES 2019-01-14 10:48:0015[facility] DgsrjyxLJOQQXNTLOXB4813-10-06 10:48:000.69[facility] VmckqiaSUQPZRJKGPCC8930-95-77 10:48:77518Etpbutwg EjzhpenUMCBHQCQIYOP7345-24-26 10:48:004.3[facility] FntvobuSFHINBQARWUZ1021-39-63 10:48:38242Iadwrmnk Olla EYSSRRWLPOEB4933-37-90 10:48:0026[facility] WxykeetIWAQDTXUTCJB3355-70-89 10:48:00 8.9[facility] HermannCHEM XGQTX5093-49-81 10:15:002.0[facility] HermannCHEM PANEL 2019-01-13 10:15:003.6[facility] HermannCHEM SPJUS6317-60-23 10:15:91202Hvubvppa HermannCHEM STSPH8637-03-86 10:15:009[facility] HermannCHEM WZGNS6045-57-95 10:15:000.71[facility] HermannCHEM ZXYAW1271-23-25 10:15:54950Ztkkadeb HermannCHEM ANAIY0942-99-68 10:15:004.2[facility] HermannCHEM RMNMC4990-13-81 10:15:62813 [facility]annCHEM HYOWZ4891-10-25 10:15:0027[facility] HermannCHEM PANEL 2019-01-13 10:15:0010.2[facility] HermannCHEM YANOZ1196-10-79 10:15:008.9[facility] HermannCHEM PWWWT5404-86-94 10:15:0086[facility] PqjcluoFOAYHXGTPN4541-81-76 10:15:0063.6[facility] ZfsyasdDLLGZGSFDX3894-19-48 10:15:0019.5[facility] Olla TTCLZOGENQ5190-12-44 10:15:0011.0[facility] JgqatppAEPPXDDWKH6698-34-16 10:15:00 5.2[facility] AtwivxiXLVHNRSBPC2141-12-89 10:15:000.7[facility] HermannHEMATOLOGY 2019-01-13 10:15:001.4[facility] UrrbifuMUTOAJBVAS2419-13-30 10:15:000.4[facility] DjkamvnVZFQFCJVSD1829-75-35 10:15:000.2[facility] YuexcagGDZCVCEAGO6743-13-74 10:15:000.1[facility] JcofmeaFXYYHVEJXZ6009-35-76 10:15:002.2[facility] SQTFAQZTDX7667-09-17 10:15:003.60[facility] ZvhczkmQXHEBCEVSO5289-31-56 10:15:00 10.8[facility] JqnnnkqGLIHQTJGUS2493-86-05 10:15:0033.4[facility] HermannHEMATOLOGY 2019-01-13 10:15:0092.9[facility] UmgdrffQKXCDIFEWC7067-11-76 10:15:00 Test Item Value Reference Range Interpretation Comments MCH (test code = MCH) 30.1 pg 27.0-31.0 [facility] GvmmzwzZITGEMPBGT1072-93-76 10:15:0032.4[facility] HermannHEMATOLOGY 2019-01-13 10:15:0017.0[facility] DktvzxtSMZAKFZJXP7068-75-25 10:15:72088Iwuqqlqr QdqttqiDPIKRGZLBR7047-93-99 10:15:008.0[facility] HermannCHEM QLPOZ0484-36-41 10:15:002.0[facility] HermannCHEM UGNOP3200-91-69 10:15:003.6[facility] HermannCHEM XCRMF7382-48-14 10:15:73966Srdxrwvf HermannCHEM NUTIP9716-23-29 10:15:009 [facility]annCHEM EOKVA9758-05-77 10:15:000.71[facility] HermannCHEM PANEL 2019-01-13 10:15:21403Odzghuyz HermannCHEM DJXJT4031-01-63 10:15:004.2[facility] HermannCHEM PDJTE2554-63-43 10:15:56986Eapfgleu HermannCHEM MRDYL6311-16-05 10:15:0027[facility] HermannCHEM CLOLD7229-16-51 10:15:0010.2[facility] HermannCHEM GZZFG6158-39-22 10:15:008.9[facility] HermannCHEM XJLEG4801-68-37 10:15:0086 [facility] LwcnjajSBDIQKHHVC5413-77-09 10:15:0063.6[facility] HermannHEMATOLOGY 2019-01-13 10:15:0019.5[facility] NsfbnnwBCFYWOYMTT2093-34-95 10:15:0011.0[facility] LazduzfMALWDQLKEY1685-40-27 10:15:005.2[facility] XpzephsFCCHXJXRAW9276-88-71 10:15:000.7[facility] MuznjoiWRTWXTGSAG2781-75-14 10:15:001.4[facility] IXSDRUHVVE8971-40-46 10:15:000.4[facility] ThpqpbaBDLIMZADRR7410-79-26 10:15:000.2 [facility] OxqbxkoZRESKACKRJ0536-42-06 10:15:000.1[facility] HermannHEMATOLOGY 2019-01-13 10:15:002.2[facility] HghxfvbBIZCMFNBFK7146-99-65 10:15:003.60[facility] KyirauuCETMEPRNAC7769-56-03 10:15:0010.8[facility] PnddertDCICKMOVHC6533-42-64 10:15:0033.4[facility] AltmxycXZWZTROPJD3691-58-00 10:15:0092.9[facility] SSLZWTBGKW0120-18-70 10:15:00 Test Item Value Reference Range Interpretation Comments MCH (test code = MCH) 30.1 pg 27.0-31.0 [facility] UqnjxpyHSAYVQZQXL9967-68-05 10:15:0032.4[facility] HermannHEMATOLOGY 2019-01-13 10:15:0017.0[facility] ElsvxpjYRUHIJZFRG1120-38-78 10:15:67449Ofloyini DwjwzysZIMMJNUFJZ3666-40-62 10:15:008.0[facility] HermannCHEM FXZTY2369-95-37 10:15:002.0[facility] HermannCHEM SBERO2431-81-07 10:15:003.6[facility] HermannCHEM ITVNP9618-89-44 10:15:25508Ozcvzbok HermannCHEM BHEYD7886-31-12 10:15:009 [facility]annCHEM UMPOE0097-52-63 10:15:000.71[facility] HermannCHEM PANEL 2019-01-13 10:15:51199Wetreqjz HermannCHEM NHMIA8605-21-14 10:15:004.2[facility] HermannCHEM BTOAY6558-25-50 10:15:79407Ovkdefhk HermannCHEM UKKPH0146-31-64 10:15:0027[facility] HermannCHEM SREMX0394-56-93 10:15:0010.2[facility] HermannCHEM SQOHZ0567-19-09 10:15:008.9[facility] HermannCHEM XTGAA7394-10-25 10:15:0086 [facility] FpxxwtlWNTSCKAUNR5004-12-08 10:15:0063.6[facility] HermannHEMATOLOGY 2019-01-13 10:15:0019.5[facility] GnlimddGDCQRRLLFG2073-26-75 10:15:0011.0[facility] BmwcxysPAQXMNBUOF9076-36-41 10:15:005.2[facility] IbunnkiQCWCTQLEDG6261-53-05 10:15:000.7[facility] LaarlbcCGADJYIHXU7506-51-78 10:15:001.4[facility] ASCVQWJADB1838-18-71 10:15:000.4[facility] IiggbqtERPVOYUNCV5389-59-05 10:15:000.2 [facility] XqpeqmhTAULHFRDYC1905-56-21 10:15:000.1[facility] HermannHEMATOLOGY 2019-01-13 10:15:002.2[facility] ArsqaxbYMWBMAFUZC9158-96-03 10:15:003.60[facility] FobcxxjNZSKYBHSDJ5439-93-35 10:15:0010.8[facility] TvdmzkhCNNNCBMTPV5931-78-63 10:15:0033.4[facility] JlohbdqEPDOEDDMKN2880-13-19 10:15:0092.9[facility]lla KBVWYRGOZX6690-59-32 10:15:00 Test Item Value Reference Range Interpretation Comments MCH (test code = MCH) 30.1 pg 27.0-31.0 [facility] OiizrivERUCINYNOQ5068-09-26 10:15:0032.4[facility] HermannHEMATOLOGY 2019-01-13 10:15:0017.0[facility] JtagfqvJEUFCXHYQY8403-32-51 10:15:87481Rmangzmc QyydzsmUWKQDASLGI7088-53-88 10:15:008.0[facility] HermannCHEM XXEHG5164-74-32 10:43:75884Xtcbdmoh HermannCHEM OUFNB7093-88-85 10:43:007[facility] HermannCHEM NLUMF9611-50-00 10:43:000.69[facility] HermannCHEM DKVQL1378-63-66 10:43:77645 [facility]annCHEM ABOIF7921-71-03 10:43:004.3[facility] HermannCHEM PANEL 2019-01-12 10:43:89863Weavsimz HermannCHEM JJLIM2551-93-38 10:43:0026[facility] HermannCHEM ZACXZ9605-83-18 10:43:008.5[facility] HermannCHEM ECEOI0046-28-71 10:43:0087[facility] HermannCHEM FKMGH7116-28-61 10:43:0011.3[facility] HermannCHEM XQFNB2623-46-44 10:43:001.9[facility] HermannCHEM BFJXO5961-08-99 10:43:002.8 [facility] RjuqzkyHSMNNFDVCV1758-31-72 10:43:003.7[facility] HermannHEMATOLOGY 2019-01-12 10:43:003.68[facility] EjoysrmMVQOHVANRI1462-32-32 10:43:0011.0[facility] YgwxtifFVBNKSDMWU5618-25-61 10:43:0033.9[facility] IhusitxOTMZJBKUJS5324-07-16 10:43:0092.1[facility] MapphgpTYLXJSISGO8915-81-18 10:43:00 Test Item Value Reference Range Interpretation Comments MCH (test code = MCH) 30.0 pg 27.0-31.0 [facility] AkpklbbLKPVUDWSRG4966-57-94 10:43:0032.6[facility] HermannHEMATOLOGY 2019-01-12 10:43:0016.7[facility] VgsyubuKDAOIQZSKX3623-79-63 10:43:34153Umfpjbba UtnamdiKJSXTMBIKK3732-72-83 10:43:008.2[facility] LglxqpqAVZMPPNEAO4078-19-09 10:43:0076.8[facility] UopfkpiITYKTGDYHZ4222-95-56 10:43:009.9[facility] Philip UDCSDCUFRI4710-11-87 10:43:0011.8[facility] YatdynhVNDRGFQSRI6554-85-46 10:43:00 1.2[facility] XozufrfDYGMPPFELA1194-91-40 10:43:000.3[facility] HermannHEMATOLOGY 2019-01-12 10:43:002.8[facility] EueeklsDAQEHINIXG7856-69-73 10:43:000.4[facility] TuhqrctFJTMZEBQKH7978-52-51 10:43:000.4[facility] HermannCHEM PCPSZ2831-58-81 10:43:48903Pdhnfysa HermannCHEM VXVPJ9601-84-47 10:43:007[facility] HermannCHEM LXKKN3981-70-21 10:43:000.69[facility] HermannCHEM BNRYB6869-49-28 10:43:05745 [facility] HermannCHEM RFHFB0293-92-65 10:43:004.3[facility] HermannCHEM PANEL 2019-01-12 10:43:27140Kleijjgf HermannCHEM FDWXZ5841-95-40 10:43:0026[facility] HermannCHEM MWLTN5705-40-84 10:43:008.5[facility] HermannCHEM UAKGS8463-46-41 10:43:0087[facility] HermannCHEM OPZXU3155-33-53 10:43:0011.3[facility] HermannCHEM GPJZZ1758-67-73 10:43:001.9[facility] HermannCHEM YZHUE2396-08-45 10:43:002.8 [facility] FhkiljuUAWLEQTKBK5862-10-82 10:43:003.7[facility] HermannHEMATOLOGY 2019-01-12 10:43:003.68[facility] ZbzrtvjZCVKDIOKSH3493-27-87 10:43:0011.0[facility] XcyfdcbNDJZKWCHCH3948-93-32 10:43:0033.9[facility] ObxvzlhAGBFPSUFQY6504-07-78 10:43:0092.1[facility] XbsuabwWRWWBJMDSJ8653-67-56 10:43:00 Test Item Value Reference Range Interpretation Comments MCH (test code = MCH) 30.0 pg 27.0-31.0 [facility] FvcwoxhJJJJTRSJIE0802-53-02 10:43:0032.6[facility] HermannHEMATOLOGY 2019-01-12 10:43:0016.7[facility] HqavrqlWEVFGQASRW5946-88-93 10:43:63205Mwfxsmqg GkmavobMOBUZTMIKC3173-74-11 10:43:008.2[facility] HasgvmsSBDTHAPISN5567-95-01 10:43:0076.8[facility] JydrcopHKZPINLBEF7731-98-57 10:43:009.9[facility] Philip ZLIRWVQZYG5046-72-20 10:43:0011.8[facility] FshoztaQEUSYRTXXB6583-71-05 10:43:00 1.2[facility] RdrozilQZMSFAFGFP1397-07-40 10:43:000.3[facility] HermannHEMATOLOGY 2019-01-12 10:43:002.8[facility] LaqxyvhGMPBQBABRR9992-66-67 10:43:000.4[facility] DokwligJVTDLKWCJS1432-60-40 10:43:000.4[facility] HermannCHEM JXTCG0984-55-93 10:43:47276Jvyhlxbi HermannCHEM LBZVN5614-45-05 10:43:007[facility] HermannCHEM PGIBE8945-59-84 10:43:000.69[facility] HermannCHEM AQNHH9669-02-42 10:43:06315 [facility]annCHEM YHOKX8856-20-51 10:43:004.3[facility] HermannCHEM PANEL 2019-01-12 10:43:76093Gwlelpgb HermannCHEM FDMGV9846-91-66 10:43:0026[facility] HermannCHEM BXOZJ5519-57-09 10:43:008.5[facility] HermannCHEM PIEHZ5618-76-74 10:43:0087[facility] HermannCHEM CDZER5366-58-00 10:43:0011.3[facility] HermannCHEM TSGMK5941-12-47 10:43:001.9[facility] HermannCHEM KYKUC1230-83-87 10:43:002.8 [facility] YwmdcaxXGAZHECQBS9797-67-99 10:43:003.7[facility] HermannHEMATOLOGY 2019-01-12 10:43:003.68[facility] UhbgcggOWCFGNTBSX1804-75-61 10:43:0011.0[facility] YjzvmvxLCYJFZSGDY8766-14-16 10:43:0033.9[facility] FhaxkyeUGBVLRJNPC2903-08-54 10:43:0092.1[facility] EpvxgneXEUSMIZSVI5365-57-64 10:43:00 Test Item Value Reference Range Interpretation Comments MCH (test code = MCH) 30.0 pg 27.0-31.0 [facility] EqvsiwbJTQACVZMON8181-23-11 10:43:0032.6[facility] HermannHEMATOLOGY 2019-01-12 10:43:0016.7[facility] RpoigljKRBMYWZQYN5091-60-42 10:43:83980Clzfftpr ElukmggXFOXCDYVYG6827-40-95 10:43:008.2[facility] YadsmxxFPFQHESXLW3909-46-76 10:43:0076.8[facility] TubktynDCRPUIOOOM4087-47-37 10:43:009.9[facility] DOJWKBIAFV0051-57-63 10:43:0011.8[facility] WevnrbnHRXKAKSQPP4900-77-41 10:43:00 1.2[facility] TneikfpBDOAKAAEQP7989-15-14 10:43:000.3[facility] HermannHEMATOLOGY 2019-01-12 10:43:002.8[facility] KezjdshPCRKVJCXSY7280-32-92 10:43:000.4[facility] AedfymkLQGZWKCCRI1626-23-34 10:43:000.4[facility] HermannBACTERIAL - SEROLOGY 2019-01-10 09:33:00Urine *NA*(01/10/19 3:33 AM)[facility] HermannBACTERIAL - SRDMZKXA1630-12-65 09:33:00Negative (01/10/19 3:33 AM)[facility] SAGRO1445-25-58 09:33:00Yellow *NA*(01/10/19 3:33 AM)[facility] UPWDD0137-60-43 09:33:00Clear (01/10/19 3:33 AM)[facility] STOOL 2019-01-10 09:33:00 Test Item Value Reference Range Interpretation Comments UA Spec Grav (test code = UA Spec 1.014 1 Grav) [facility] JRMTJ6271-71-61 09:33:00 Test Item Value Reference Range Interpretation Comments UA pH (test code = UA pH) 5.0 1 5.0-8.0 [facility] OAJNC2894-37-29 09:33:00Negative (01/10/19 3:33 AM) [facility] PCEHH6835-52-93 09:33:00Negative *NA*(01/10/19 3:33 AM)[facility] MOTWB2679-71-59 09:33:00Trace *ABN*(01/10/19 3:33 AM)[facility] CTOQG4039-10-12 09:33:00Negative *NA*(01/10/19 3:33 AM)[facility] SMXMQ3219-68-77 09:33:00Negative (01/10/19 3:33 AM) [facility] IPCKL8187-48-47 09:33:00Negative (01/10/19 3:33 AM) [facility] MSONF5942-40-95 09:33:00Negative (01/10/19 3:33 AM) [facility] HXVEJ1759-25-29 09:33:00None Seen (01/10/19 3:33 AM) [facility] GMICV1433-89-13 09:33:00<1[facility] TAIRD4140-96-87 09:33:00<1[facility] HermannBACTERIAL - KIMSEYVX6085-64-49 09:33:00Urine *NA*(01/10/19 3:33 AM)[facility]annBACTERIAL - SEROLOGY 2019-01-10 09:33:00Negative (01/10/19 3:33 AM)[facility] STOOL 2019-01-10 09:33:00Yellow *NA*(01/10/19 3:33 AM)[facility] STOOL 2019-01-10 09:33:00Clear (01/10/19 3:33 AM)[facility] STOOL 2019-01-10 09:33:00 Test Item Value Reference Range Interpretation Comments UA Spec Grav (test code = UA Spec 1.014 1 Grav) [facility] CIFZX1985-21-72 09:33:00 Test Item Value Reference Range Interpretation Comments UA pH (test code = UA pH) 5.0 1 5.0-8.0 [facility] RDHLJ0284-68-19 09:33:00Negative (01/10/19 3:33 AM) [facility] LSJKC2665-20-53 09:33:00Negative *NA*(01/10/19 3:33 AM)[facility] NVCUE9147-55-64 09:33:00Trace *ABN*(01/10/19 3:33 AM)[facility] PEFZY7275-59-78 09:33:00Negative *NA*(01/10/19 3:33 AM)[facility] EVJEV3594-61-04 09:33:00Negative (01/10/19 3:33 AM) [facility] RETLA5800-77-36 09:33:00Negative (01/10/19 3:33 AM) [facility] VOOHT7032-59-84 09:33:00Negative (01/10/19 3:33 AM) [facility] DTDOS6133-73-75 09:33:00None Seen (01/10/19 3:33 AM) [facility] HDFZS5297-27-24 09:33:00<1[facility] GUSVX2151-03-84 09:33:00<1[facility] HermannBACTERIAL - CNRQVKPP8963-75-13 09:33:00Urine *NA*(01/10/19 3:33 AM)[facility]annBACTERIAL - SEROLOGY 2019-01-10 09:33:00Negative (01/10/19 3:33 AM)[facility] STOOL 2019-01-10 09:33:00Yellow *NA*(01/10/19 3:33 AM)[facility] STOOL 2019-01-10 09:33:00Clear (01/10/19 3:33 AM)[facility] STOOL 2019-01-10 09:33:00 Test Item Value Reference Range Interpretation Comments UA Spec Grav (test code = UA Spec 1.014 1 Grav) [facility] WFFMS8058-67-34 09:33:00 Test Item Value Reference Range Interpretation Comments UA pH (test code = UA pH) 5.0 1 5.0-8.0 [facility] DIFPW6965-21-80 09:33:00Negative (01/10/19 3:33 AM) [facility] WUDKI2631-62-25 09:33:00Negative *NA*(01/10/19 3:33 AM)[facility] ENAQU0907-68-00 09:33:00Trace *ABN*(01/10/19 3:33 AM)[facility] CJPAM0703-44-19 09:33:00Negative *NA*(01/10/19 3:33 AM)[facility] QIBYI8319-73-91 09:33:00Negative (01/10/19 3:33 AM) [facility] KZBHV8486-92-85 09:33:00Negative (01/10/19 3:33 AM) [facility] ORUWC1376-40-16 09:33:00Negative (01/10/19 3:33 AM) [facility] RZEKD4141-71-36 09:33:00None Seen (01/10/19 3:33 AM) [facility] KZDYW8585-71-10 09:33:00<1[facility] ULQJP3239-43-23 09:33:00<1[facility] HermannVIRAL - ZOPHQSYU6465-36-16 07:15:00 Negative (01/10/19 1:15 AM)[facility]annVIRAL - QYEZVELX8385-00-85 07:15:00 Negative (01/10/19 1:15 AM)[facility]annVIRAL - ZAWHIPKR7484-89-80 07:15:00 Negative (01/10/19 1:15 AM)[facility]annVIRAL - OUBSACEV9098-06-53 07:15:00 Negative (01/10/19 1:15 AM)[facility]annVIRAL - GEPSYRXS3046-34-42 07:15:00 Negative (01/10/19 1:15 AM)[facility]annVIRAL - VREKSHOX4119-90-00 07:15:00 Negative (01/10/19 1:15 AM)[facility] HermannCARDIAC CJQMOZH4145-84-41 05:21:00 0.09[facility] HermannCHEM DNPVQ9716-29-31 05:21:007.1[facility] HermannCHEM PANEL 2019-01-10 05:21:003.1[facility] HermannCHEM OYZYP7257-06-58 05:21:0027[facility] HermannCHEM TEGKH6889-78-88 05:21:0027[facility] HermannCHEM YWRFU3755-95-93 05:21:85324Miyzegem HermannCHEM BXMBF9478-44-40 05:21:000.5[facility] HermannCHEM RXGLU4417-22-82 05:21:00 Test Item Value Reference Range Interpretation Comments B/C Ratio (test code = B/C Ratio) 17 1 6-25 [facility]annCHEM IZNVG3699-00-91 05:21:004.0[facility] HermannCHEM PANEL 2019-01-10 05:21:00 Test Item Value Reference Range Interpretation Comments A/G Ratio (test code = A/G Ratio) 0.8 1 0.7-1.6 [facility]annCHEM KELFN3715-34-81 05:21:000.9[facility] HermannHEMATOLOGY 2019-01-10 05:21:00 Test Item Value Reference Range Interpretation Comments INR (test code = INR) 1.08 1 0.85-1.17 [facility] JuipsiaGCVJISBGXY6453-27-27 05:21:00 Test Item Value Reference Range Interpretation Comments PT (test code = PT) 13.8 s 12.0-14.7 [facility] WeinfkxZYXKOJALDX2978-27-41 05:21:00 Test Item Value Reference Range Interpretation Comments PTT (test code = PTT) 23.3 s 22.9-35.8 [facility] FtisoqvHHZPNMUEJP5927-46-33 05:21:000.2[facility]annCARDIAC ENZYMES 2019-01-10 05:21:000.09[facility]annCHEM [id number] 05:21:007.1[facility]annCHEM [id number] 05:21:003.1[facility]annCHEM [id number] 05:21:0027[facility]annCHEM [id number] 05:21:0027[facility]annCHEM [id number] 05:21:13004Pdqyuwih HermannCHEM [id number] 05:21:000.5 [facility] HermannCHEM [id number] 05:21:00 Test Item Value Reference Range Interpretation Comments B/C Ratio (test code = B/C Ratio) 17 1 6-25 [facility] [id number] 05:21:004.0[facility]annCHEM PANEL 2019-01-10 05:21:00 Test Item Value Reference Range Interpretation Comments A/G Ratio (test code = A/G Ratio) 0.8 1 0.7-1.6 [facility]CHE[facility] [id number] 05:21:000.9[facility]annHEMATOLOGY 2019-01-10 05:21:00 Test Item Value Reference Range Interpretation Comments INR (test code = INR) 1.08 1 0.85-1.17 [facility] HospitalGeqtgpwJRPROQNOUU9237-74-89 05:21:00 Test Item Value Reference Range Interpretation Comments PT (test code = PT) 13.8 s 12.0-14.7 [facility] HospitalHbscajrCUMZSHANYK0094-95-59 05:21:00 Test Item Value Reference Range Interpretation Comments PTT (test code = PTT) 23.3 s 22.9-35.8 [facility] HospitalKzycehxRQLALDQSBF1136-37-36 05:21:000.2[facility]annCARDIAC ENZYMES 2019-01-10 05:21:000.09[facility]annCHEM [id number] 05:21:007.1[facility]annCHEM [id number] 05:21:003.1[facility]annCHEM [id number] 05:21:0027[facility]annCHEM [id number] 05:21:0027[facility]annCHEM [id number] 05:21:[address] [facility]annCHE[facility] [id number] 05:21:000.5 [facility]CHE[facility] [id number] 05:21:00 Test Item Value Reference Range Interpretation Comments B/C Ratio (test code = B/C Ratio) 17 1 6-25 [facility]CHE[facility] [id number] 05:21:004.0[facility]annCHEM PANEL 2019-01-10 05:21:00 Test Item Value Reference Range Interpretation Comments A/G Ratio (test code = A/G Ratio) 0.8 1 0.7-1.6 [facility]annUNC [id number] 05:21:000.9[facility] 2019-01-10 05:21:00 Test Item Value Reference Range Interpretation Comments INR (test code = INR) 1.08 1 0.85-[address] [facility] HospitalCyaqkaoTYGNBNWIPK0948-97-21 05:21:00 Test Item Value Reference Range Interpretation Comments PT (test code = PT) 13.8 s 12.0-14.[address] [facility] HospitalKttohdkHXQFABVLHP7525-35-37 05:21:00 Test Item Value Reference Range Interpretation Comments PTT (test code = PTT) 23.3 s 22.9-35.[address] [facility] [facility] HospitalKiwxmwgTFBVRBFLMZ7748-31-32 05:21:000.2[facility]
[2021-01-09] MEDS: ASPIRIN EC 81 MG TAB PO SCH (09:29)
[2021-01-09] MEDS: PANTOPRAZOLE 40MG TABLET PO SCH (09:29)
[2021-01-09] MEDS: TRAMADOL HCL 50 MG TAB PO PRN ×2 (09:29→18:39)
[2021-01-09] MEDS: FUROSEMIDE 20 MG TABLET PO SCH ×2 (09:30→18:39)
[2021-01-09] MEDS: CARBIDOPA/LEVODOPA 25/100 TAB PO SCH ×2 (09:30→20:31)
[2021-01-09] MEDS: SOTALOL HCL 80 MG TAB PO SCH ×2 (09:30→20:31)
[2021-01-09] MEDS ORDERED: GOLYTELY 4000 ML PO SCH (15:00)
--- NOTE | 2021-01-09 16:25 | PN ---
Date of Progress Note: 01/09/2021 The patient states he feels somewhat better, having minimal left upper quadrant discomfort. His appe tite is still decreased. His cellulitis is stable, therefore hold off the antibiotics for least anot her day; however, obstipation has now become a significant problem with no response to multiple passe s. We will therefore obtain a KUB and evaluate accordingly. HR/MODL Voice ID: [id number] Report ID: [id number]
--- NOTE | 2021-01-09 16:31 | PN ---
Date of Progress Note: 01/09/2021 The patient states the pain under his rib cage has now gone; however, he is passing gas, not had a alfredo wel movement. His KUB showed significant stool retention in the colon, some dilatation. He is belch ing, has GoLYTELY and if necessary and plan for him to be discharged in the a.m. HR/MODL Voice ID: [id number] Report ID: [id number]
[2021-01-10 04:14] LABS: BUN Blood Urea Nitrogen 11 mg/dL (7-18); Bicarbonate 30 mmol/L (21-32); Glucose Level 111 mg/dL (74-106); Sodium Level 140 mmol/L (136-145)
[2021-01-10 05:28] VITALS: O2SAT 95
[2021-01-10] MEDS: SOTALOL HCL 80 MG TAB PO SCH (08:35)
[2021-01-10] MEDS: FUROSEMIDE 20 MG TABLET PO SCH (08:35)
[2021-01-10] MEDS: ASPIRIN EC 81 MG TAB PO SCH (08:35)
[2021-01-10] MEDS: CARBIDOPA/LEVODOPA 25/100 TAB PO SCH (08:35)
[2021-01-10] MEDS: BISACODYL 10 MG RECTAL SUPP PR PRN (08:35)
[2021-01-10] MEDS: PANTOPRAZOLE 40MG TABLET PO SCH (08:35)
[2021-01-10 16:57] VITALS: BP 142/64; TEMP 97.1
--- NOTE | 2021-01-10 20:52 | PN ---
Date of Progress Note: 01/10/2021 The patient has significant problem with extremely constipated stools. He states he feels much ailyn r. Minimal amount of discomfort. He is eating and he will be discharged to continue on his usual me dication in addition of daily stool softener. He will be followed up in 1 day for cellulitis of the toe. HR/MODL Voice ID: [id number] Report ID: [id number]
--- NOTE | 2021-01-10 20:58 | PN ---
Date of Progress Note: 01/09/2021 The patient states the pain has basically gone; however, he is markedly obstipated. KUB shows signif icant amount of stool still present despite him passing gas and small stool. Examination is basicall y negative. showed some improvement as well probability with medication causing the stomac h/pylorospasm is a possibility, we will therefore hold off on the antibiotics, other than the obstipa tion problem which is obviously significant. Once he is stabilized, he should be able to be discharg ed. We will try him on some GoLYTELY tonight and if successful, can be discharged tomorrow. HR/MODL Voice ID: [id number] Report ID: [id number]
== END 2021-01-10 17:23 | disposition home health service (06) | DRG 313 ==
LOC: ER 11:09 → ERHOLD 12:43 → 2ND 14:11
PROVIDERS: ADMIT Family Medicine; ATTEND Family Medicine
DX: R07.89 Other chest pain (principal); K59.39 Other megacolon; K59.00 Constipation, unspecified; I25.10 Atherosclerotic heart disease of native coronary artery without angina pectoris; I10 Essential (primary) hypertension; E78.5 Hyperlipidemia, unspecified; I25.2 Old myocardial infarction; T36.95XA Adverse effect of unspecified systemic antibiotic, initial encounter; R77.8 Other specified abnormalities of plasma proteins; L03.031 Cellulitis of right toe; Z88.1 Allergy status to other antibiotic agents; Z88.5 Allergy status to narcotic agent; Z79.82 Long term (current) use of aspirin; Z79.01 Long term (current) use of anticoagulants; Z79.899 Other long term (current) drug therapy; Z95.5 Presence of coronary angioplasty implant and graft; Z20.822 Contact with and (suspected) exposure to COVID-19
CPT/HCPCS: 36415; 71045; 74018; 80048; 80076; 83735; 83880; 84484; 85025; 85610; 93005; 96374; 96375; 97116; 97161; 99285; J2405; U0003

== ENCOUNTER 2021-02-02 09:34 | Inpatient (IN) | payer OTHER ==
--- OUTSIDE RECORDS SUMMARY | 2021-02-02 09:37 | XMS REPORT | Clinical Summary ---
:1935 Author Organization [facility] MD Pedro [facility] Address [address] [place] [address] Care Team Providers Name Role Phone Kuldeep [...] g 12/18/2018 Active (PREVIDENT) 1.1 % daily. [place] dental teeth with cream creamIndications: and spit [...] less likely . 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 Education was [...] Added automatically from request for tabitha broderick [id number] Encounter for other preprocedural examination 09/19/19 Overview: [...] within bilateral vertebral arteries OSH records from [facility] Cardiology reviewed [facility] 05/09/17: LAD prox patent st ent X 2, mid 95% successful PCI to LAD Echocardiogram: 05/08/17: normal LVH, 60- 65%, LVH, aortic valve sclerosis, mild pHTN Stress test 07/09/18: adenosine nuclear s tress: mildly abnormal myocardial perfusion (low risk scan based on my discussion with his home skin lifter bacon) per Cardiology note 10/02/18 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 hospitlilized x 10 days. requ ired IV abx and debridement TN EXC SKIN MALIG 0.6-1 09/19/2018 Right Procedur e: EXCISION OF CM REMAINDR BODY MALIGNANT LESIO N OF SCALP; Surgeon: Roshan Sauceda MD; Location: MAIN OR; Service: HN - HEAD & NECK SURGERY Medical devices from this surgery are in t he Implants section. TN SUB GRFT 09/19/2018 Right Procedure: APPLI CATION OF F/S/N/H/F/G/M/D /<100SCM SKIN WU BSTITUTE GRAFT TO /<1ST 25 SCM SCALP; Surgeon: Roshan Sauceda MD; Loca tion: MAIN OR; Service: HN - HEAD & NECK SURGERY Medical devices from this surgery are in t he Implants section. TN EXC SKIN MALIG 0.6-1 10/10/2018 Midline Procedur e: EXCISION OF CM REMAINDR BODY MALIGNANT LESIO N OF SCALP; Surgeon: Roshan Sauceda MD; Location: MAIN OR; Service: HN - HEAD & NECK SURGERY Medical devices from this surgery are in t he Implants section. TN FREE MUSC-SKIN FLAP 10/10/2018 Back/Right Procedure : FREE MUSCLE OR W/MICROVASC ANAST MYOCUTANEOUS F LAP WITH MICRVASCULAR TUCKER STOMOSIS; Surgeon: Charles Moreno MD; Location: MAIN O R; Service: PLS - PLASTIC WU RGERY Medical devices from this surgery are in t he Implants section. TN SPLIT GRFT 10/10/2018 Thigh/Right Procedure: SPLIT THICKNESS TRUNK,ARM,LEG <100 SQCM SKIN GRA FT OF TRUNK/ARM OR LEG 51p76oh; Wu rgeon: Charles Moreno MD; Loca tion: MAIN OR; Service: PL S - PLASTIC SURGERY Medical devices from this surgery are in t he Implants section. TN CHG FLUOROSCOPY UP TO 10/30/2018 Right Procedu re: FLUOROSCOPY; 1 HOUR PHYSICIAN/QHP Surgeon: Srinivasa Simmons MD; TIME Location: MAIN O R; Service: ORTHOPEDIC ONCOL OGY Medical devices from this surgery are in t he Implants section. TN OPEN FIX 10/30/2018 Hip/Right Procedure: OPEN REDUCTION [...] carcinoma of skin 2014 Coronary arteriosclerosis 2011 HI n 2011 with had chest pains. sp cardiac stents x 2 ( reportedly had another HI during pr ocedure). pt was started on [...] Vaccination (1) 1947 Implants Implanted Type Area Physiological Chemist Device Shelf Model / Identifier Expiration Serial / Date Lot Construction Carpenter Microvascular Anastomotic Device 2.5mm - [id number] Card ioPulm Scalp Audible Magic JOHN 04/24/2023 [id number] / Implanted: Qty: 1 on 10/10/2018 by Charles Moreno MD at [facility] / [id number] Biomet Hip Frac Nail 11*400mm Rt Implant Right: [employer] 06/10/2028 [id number] / Implanted: Qty: 1 on 10/30/2018 by Ramón Simmons MD at [facility] Femur / [id number] Biomet Hf-Nail Lag Screw 10.5*105mm Implant Right: [employer] 08/07/2027 [id number] / Implanted: Qty: 1 on 10/30/2018 by Ramón Simmons MD at [facility] Fem[employer] / [id number] Biomet Cortical Bone Screw 5*54mm Implant Right: [employer] 06/26/2026 [id number] / Implanted: Qty: 1 on 10/30/2018 by Ramón Simmons MD at [facility] Femur / [id number] Integra Bp Dural Graft 4x5cm - Sna Skin/Tissue [employer] 05/26/2020 [id number] / Implanted: Qty: 1 on 09/19/2018 by Roshan Sauceda MD at [facility] NA / SURG [id number] Cardiac Stents Description: 2010 x2,, 2017 x1 Pins Description: pins on the left elbow Results Not on fileafter 02/03/2020 Insurance Payer Benefit Plan / Subscriber ID Effective Dates Phone Addre ss Type Group AETNA MEDICARE AETNA MEDICARE [id number] 2013-Margarita SWANSON [id number] [place] [address] Advance Directives Code Status Date Activated Date Inactivated Comments Full Code 10/29/2018 6:58 PM 11/12/2018 9:54 PM Full Code 10/10/2018 10:29 AM 10/15/2018 8:46 PM Care Teams Clinical Administrative Coordinator Relationship Specialty Start Date End Date Kuldeep Melgoza MD PCP - External Dermatology 08/16/18 [address] [facility] [place] [address] Roshan Sauceda MD PCP - General Head and Neck Surgery 08/16/18 [facility] [place] [address] Ronn Wilson, PCP - External Primary Family Practice 09/04/17 MD Care Provider [address] [place] [id number] Pollo Navarro PCP - External Follow Cardiology 09/04/17 MD Rae Up A [address] [place] [id number]
--- OUTSIDE RECORDS SUMMARY | 2021-02-02 09:45 | XMS REPORT | Continuity of Care Document ---
:1935 Author Organization [facility] t Address [address] [place] [address] Dr. [address] [place] [address] Care Team Providers Name Role Phone Pcp [...] Expiration Date Sour ce Number [employer]ETNA MANAGED [id number] 2020 MEDICARE PPO-FERNANDO 00:00:00 AETNA MEDICARE HMO [id number] 2020 POS PPO 00:00:00 AETNA MEDICAREAETNA [id number] 2013 MD [place] MEDICARE 00:00:00 [id number] -Present[id number] [place] [address]Medicare Problems Condition Condition Condition Status Onset Resolution Last Treating Co mments Source Name Details Category Date Date Treatment Clinician Date NSTEMI NSTEMI Disease Active [facility] - elevated elevated 00:00: Medica l myocardial myocardial 00 Ce nter infarction infarction ) ) FEVER Diagnosis Active 2018-022019-01-27 Mem oria 03-11 22:24:00 l FEVER 00:00: [place] 00 Active 01/09/2019 [facility] [place] Unexplaine Unexplaine Disease Active 2018-02 Last M [...] Added automatic ally from request for surgery [id number] Encounter Encounter Disease Active Overview: for other [...] 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 [id number] Carotid Duplex: <50% plaque within right ICA, normal left ICA, antegrade flow within bilateral vertebral arteriesO records [place] Cardiolog [facility] 05/09/17: LAD prox patent stent X [...] Memor ia fibrillati 00:53:30 l on Atrial [place] (disorder) fibrillati on (disorder) Active Problem 09/09/2020 [facility] Carpal Problem Active 2020-09-09 Memor ia tunnel 00:53:30 l syndrome Carpal Clifford n (disorder) tunnel syndrome (disorder) Active Problem 09/09/2020 [facility] Paresthesi Problem Active 2020-09-09 M emoria a 00:53:30 l (finding) [place] Paresthesi a (finding) Active Problem 09/09/2020 [facility] Parkinson' Problem Active 2020-09-09 M emoria s disease 00:53:30 l (disorder) Clifford n Parkinson' s disease (disorder) Active Problem 09/09/2020 [facility] Tremor Problem Active 2020-09-09 Memor ia (finding) 00:53:30 l Tremor [place] (finding) Active Problem 09/09/2020 [facility] Hallucinos Hallucinos Disease Active M D is is Adam romero History of Past Illness Condition Condition Condition Status Onset Resolution Last Treating Co mments Source Name Details Category Date Date Treatment Clinician Date Chills Problem 2018-022019-01-21 2019-01-21 M emoria (without 1-14 22:44:12 22:44:12 l fever) Chills 18:00: [place] (without 00 fever) 01/09/2019 01/21/2019 [place] Allergies, Adverse Reactions, Alerts Allergy Allergy Status Severity Reaction(s) Onset Inactive Treating Comm ents Source Name Type Date Date Clinician CODEINE DRUG Active Unknown-Cmnt Uni vers INGREDI 7-20 ity of 00:00: [place] 00 [facility] Branch CEPHALEX DRUG Active Unknown-Cmnt Un mary IN INGREDI 7-20 ity of 00:00: [place] 00 Medical Branch Codeine Propensi Active Unknown - Univ ers ty to See comments 7-20 ity of adverse 00:00: [place] reaction 00 [facility] Cephalex Propensi Active Unknown - Uni vers in ty to See comments 7-20 ity of adverse 00:00: [place] reaction 00 Medical s Branch NO KNOWN Drug Active Univers ALLERGIE Class ity of S [facility] codeine codeine Active Memoria kumar Palacios Cipro [...] Exposure to Not sure University SARS-CoV-2 (event) [facility] History MEOH 2020-09-26 2020-09-[address] [facility] - Alcohol Frequency 00:00:00 00:00:00 Medical Center History [facility] 2020-09-26 2020-09-[address] [facility] - Alcohol Std Drinks 00:00:00 00:00:00 Medica l Center History [facility] 2020-09-26 2020-09-[address] [facility] - Alcohol Binge 00:00:00 00:00:[address] Social History 2020-08-09 2020-08-09 [facility] faith 20:37:37 20:37:37 Alcohol intake 2018-12-17 2018-12-17 Ex-drinker MD Adam romero 00:00:00 00:00:00 (finding) Cigarettes smoked 2018-09-04 2018-09-04 MD Arya mitchell current (pack per 00:00:00 00:00:00 day) - Reported Cigarette 2018-09-04 2018-09-04 MD Blackwell pack-years 00:00:00 00:00:00 Tobacco use and 2018-09-04 2018-09-04 Former smokeless MD Blackwell exposure 00:00:00 00:00:00 tobacco user Sex Ass[birth year] At [birth year] Universit [facility] of 00:00:00 00:00:00 [facility] Smoking Status Start Date Stop Date Source Unknown if ever smoked [facility] Never smoker [facility] Branch Social History 2019-01-10 07:34:37 2019-01-10 07:34:37 [facility] Ordered Filled Start Stop Current Ordering Indication Dosage Frequency Signature Comments Components Source Medication Medication Date Date Medication? Clinician (SIG) Name Name [facility] 2020-02 Yes PRN, Univers (MIOSTAT) 0-06 Starting ity of 0.01 % 15:28: on Wed [place] intraocular 00 12/01/20 at Nm dical injection 1028, Branch Until Discontinu ed, [...] Wed [place] intraocular 00 :40 12/01/20 at Nm dical injection 1028, Branch Until 12/01/20 at [...] on Wed [place] (MAXITROL) 00 12/01/20 at [facility] 3.5 1027, Branch mg/g-10,000 Until unit/g-0.1 Discontinu % ed, ophthalmic Routine, ointment Intra-op neomycin-po 2020-02- No PRN, Unive rs lymyxin-dex 0-06 10-06 Starting ity of amethasone 15:27: 18:16 on Sun [place] (MAXIT[place]OL[place] 00 :40 12/01/20 at [facility] 3.5 1027, Branch mg/g-10,000 Until Wed unit/g-0.1 12/01/20 at % 1316, ophthalmic Routine, ointment Intra-op balanced 2020-02 Yes PRN, Univers salt irrig 0-06 Starting ity o f soln comb1 15:23: on Sun (BSS PLUS) 00 12/01/20 at [facility] ophthalmic 1023, Branch solution Until 500 mL bag Discontinu ed, Routine, Intra-op EPINEPHrine 2020-02 Yes PRN, Univer s 1:1,000 (1 0-06 Starting ity o f mg/mL) 15:23: on Sun (ADRENALIN) 00 12/01/20 at Nm dical injection 1023, Branch Until Discontinu ed, Routine, Intra-op balanced 2020-02- No PRN, Univers salt irrig 0-06 10-06 Starting ity of soln comb1 15:23: 18:16 on Sun[place] (BSS PLUS) 00 :40 12/01/20 at [facility] ophthalmic 1023, Branch solution Until Sun 500 mL bag 12/01/20 at 1316, Routine, Intra-op EPINEPHrine 2020-02- No PRN, Unive rs 1:1,000 (1 0-06 10-06 Starting ity of mg/mL) 15:23: 18:16 on Sun (ADRENALIN) 00 :40 12/01/20 at Nm dical injection 1023, Branch Until 12/01/20 at [...] 15:15: on Sun (HYLENEX) 00 12/01/20 at [facility] injection 1015, Branch Until Discontinu ed, Routine, Intra-op eye block 2020-02 Yes PRN, Univers syringe 11 0-06 Starting ity o f mL 15:15: on Sun 00 12/01/20 at [place] [id number], Branch Until Discontinu ed, Intra-op Hyaluronida 2020-02- No PRN, Unive rs se, Human 0-06 10-06 Starting ity o f Recomb. 15:15: 18:16 on Sun (HYLENEX) 00 :40 12/01/20 at [facility] injection 1015, Branch Until Sun12/01/20 at 1316, Routine, Intra-op eye block 2020-02- No PRN, Univers syringe 11 0-06 10-06 Starting ity of mL 15:15: 18:16 on Sun [place] 00 :40 12/01/20 at [place] [id number], Branch Until Sun12/01/20 at 1316, Intra-op mydriatic [...] 0-06 by mouth. ity of tablet 11:16: [address] famotidine 2020-02 Yes 20mg Take 20 mg U nivers 20 mg 0-06 by mouth. ity of tablet 11:16: [address] aspirin 81 2020-02 Yes 81mg Take 81 mg U nivers mg EC 0-06 by mouth. ity of tablet 11:16: [address] famotidine 2020-02 Yes 20mg Take 20 mg U nivers 20 mg 0-06 by mouth. ity of tablet 11:16: [address] sotaloL Yes life-threat 80mg Q.5D Take [...] Medical tablet 16 Center furosemide Yes 80mg [id number] Take [address] (LASIX) 80 8-04 [id number] by mouth 3 [facility] - MG tablet [...] 7-21 by mouth. ity of tablet 20:06: [address] famotidine Yes 20mg Take 20 mg U nivers 20 mg 7-21 by mouth. ity of tablet 20:06: [address] aspirin 81 0 Yes 81mg Take 81 mg U nivers mg EC 7-21 by mouth. ity of tablet 20:06: [address] famotidine Yes 20mg Take 20 mg U nivers 20 mg 7-21 by mouth. ity of tablet 20:06: [address] balanced 0 Yes PRN, Univers salt irrig 09-15 Starting ity o f soln comb1 18:58: Wed [place] (BSS PLUS) 00 09/15/20 at Med ical ophthalmic 1358, Branch solution Until 500 mL bag Discontinu ed, Routine, Intra-op carbachoL 0 Yes PRN, Univers (MIOSTAT) 09-15 Starting ity of 0.01 % 18:58: Sun [place] intraocular 00 09/15/20 at Nm dical injection 1358, Branch Until Discontinu ed, Routine, Intra-op dexamethaso Yes PRN, Univer s ne 09-15 Starting ity of (DECADRON 18:58: Sun [place] PHOSPHATE) 09/15/20 at Med ical injection 1358, Branch Until Discontinu ed, Routine, Intra-op DUOVISC Yes PRN, Univers (DUOVISC 09-15 Starting ity of VISCO 18:58: Wed [place] ELASTIC) 3 00 09/15/20 at [facility] %-4 %(0.5 1358, Branch mL) 1 % Until (0.55 mL) Discontinu intraocular ed, injection Routine, Intra-op balanced 2020- No PRN, Univers salt irrig 09-15 Starting ity of soln comb1 18:58: 22:06 Wed [place] (BSS PLUS) 00 :51 09/15/20 at [facility] ophthalmic 1358, Branch solution Until Sun 500 mL bag 09/15/20 at 1706, Routine, Intra-op carbachoL 2020- No PRN, Univers (MIOSTAT) 09-15 Starting ity o f 0.01 % 18:58: 22:06 Wed [place] intraocular 00 :51 09/15/20 at Nm dical injection 1358, Branch Until 09/15/20 at 1706, Routine, Intra-op dexamethaso 2020- No PRN, Unive rs ne 09-15 Starting ity of (DECADRON 18:58: 22:06 Wed [place] PHOSPHATE) 00 :51 09/15/20 at [facility] injection 1358, Branch Until Sun09/15/20 at 1706, Routine, Intra-op DUOVISC 2020- No PRN, Univers (DUOVISC 09-15 Starting ity of VISCO 18:58: 22:06 Wed [place] ELASTIC) 3 00 :51 09/15/20 at [facility] %-4 %(0.5 1358, Branch mL) 1 [...] 09-15 Starting ity of amethasone 18:57: 22:06 [facility] (MAXITROL) 00 :51 09/15/20 at [facility] 3.5 1357, Branch mg/g-10,000 Until Sun unit/g-0.1 09/15/20 at % 1706, ophthalmic Routine, ointment Intra-op EPINEPHrine Yes PRN, Univer s 1:1,000 (1 09-15 Starting ity o f mg/mL) 18:53: Sun [place] (ADRENALIN) 00 09/15/20 at Nm dical injection 1353, Branch Until Discontinu ed, Routine, Intra-op EPINEPHrine 2020- No PRN, Unive rs 1:1,000 (1 09-15 Starting ity of mg/mL) 18:53: 22:06 [facility] (ADRENALIN) 00 :51 09/15/20 at Nm dical injection 1353, Branch Until Sun09/15/20 at 1706, Routine, Intra-op water for Yes PRN, Univers irrigation 09-15 Starting ity o f irrigation 18:50: Sun [place] solution 00 09/15/20 at Medic al 1350, Branch Until Discontinu ed, Routine, Intra-op water for 2020- No PRN, Univers irrigation 09-15 Starting ity of irrigation 18:50: 22:06 [facility] [place] solution 00 :51 09/15/20 at Medic al 1350, Branch Until Sun09/15/20 at 1706, Routine, Intra-op Hyaluronida Yes PRN, Univer s se, Human 09-15 Starting ity of Recomb. 18:47: Sun [place] (HYLENEX) 00 09/15/20 at Medi mendez injection 1347, Branch Until Discontinu ed, Routine, Intra-op Hyaluronida 2020- No PRN, Unive rs se, Human 09-15 Starting ity o f Recomb. 18:47: 22:06 [facility] [place] (HYLENEX) 00 :51 09/15/20 at Medi mendez injection 1347, Branch Until Sun09/15/20 at 1706, Routine, Intra-op eye block Yes PRN, Univers syringe 11 09-15 Starting ity o f mL 18:45: Wed [place] 00 09/15/20 at [facility] 1345, Branch Until Discontinu ed, Intra-op eye block 2020- No PRN, Univers syringe 11 09-15 Starting ity of mL 18:45: 22:06 Wed [place] 00 :51 09/15/20 at [facility] 1345, Branch Until Sun09/15/20 at 1706, Intra-op [...] 1,000 mL 00 :00 IV Medical Infusion, [place] ONCE, 1 dose, Sun09/15/20 at 1245, Routine, [...] 1,000 mL 00 :00 IV Medical Infusion, [place] ONCE, 1 dose, Sun09/15/20 at 1245, Routine, DSU Pre-op aspirin 81 Yes 81mg Take 81 mg U nivers mg EC 09-15 by mouth. ity of tablet 15:06: [address] famotidine Yes 20mg Take 20 mg U nivers 20 mg 7-21 by mouth. ity of tablet 15:06: [address] aspirin 81 0 Yes 81mg Take 81 mg U nivers mg EC 7-21 by mouth. ity of tablet 15:06: [address] famotidine Yes 20mg Take 20 mg U nivers 20 mg 7-21 by mouth. ity of tablet 15:06: [address] apixaban 5 Yes TAKE 1 Memor ia MG Oral 7-12 TABLET BY l Tablet 20:03: MOUTH [place] [Eliquis] 00 TWICE A DAY LORazepam Yes 0 Memoria 0.5 mg oral 7-12 Refill(s) l tablet 20:03: [place] 00 Carbidopa 0 Yes 1 tab, PO, [...] mg oral 7-12 Refill(s) l tablet 20:03: [place] 00 Carbidopa 2020-0 Yes 1 tab, PO, Me moria 25 MG / 7-12 TID, # 90 l Levodopa 20:03: tab, 3 [place] 100 MG Oral 00 Refill(s), Tablet Pharmacy: [[facility] 25-[facility] cy #[id number], 175.26, cm, 07/19/20 14:31:00 CDT, Height, 75.909, kg, 07/19/20 14:31:00 CDT, Weight apixaban 5 0 Yes TAKE 1 Memor ia MG Oral 7-12 TABLET BY l Tablet 20:03: MOUTH [place] [Eliquis] 00 TWICE A DAY LORazepam 0 Yes 0 Memoria 0.5 mg oral 7-12 Refill(s) l tablet 20:03: [place] 00 Carbidopa 2020-0 Yes 1 tab, PO, Me moria 25 MG / 7-12 TID, # 90 l Levodopa 20:03: tab, 3 [place] 100 MG Oral 00 Refill(s), Tablet Pharmacy: [Sin[facility] 25-100] cy #[id number], 175.26, cm, 07/19/20 14:31:00 CDT, Height, 75.909, kg, 07/19/20 14:31:00 CDT, Weight carbidopa-l 2020-0 Yes 1 tab, PO, [facility] evodopa 7-12 TID, # 90 [facility] - (Sinemet) 00:00: tab, 3 Medica l 25-100 mg 00 Refill(s), Cent er per tablet Pharmacy: [facility] #[id number], 175.26, cm, 07/19/20 14:31:00 CDT, Height, 75.909, kg, 07/19/20 14:31:00 CDT, Weight prednisoLON 2020-0 Yes PLEASE SEE [facility] acetate 6-27 ATTACHED [facility] - (PRED 00:00: FOR Medical FORTE) 1 % 00 DETAILED Cente r ophthalmic DIRECTIONS suspension furosemide 2020-0 Yes 80mg Take 80 mg U nivers 80 mg 6-18 by mouth 2 ity of tablet 00:00: (two) [place] 00 times Medical daily. Branch furosemide 2020-0 Yes 80mg Take 80 mg U nivers 80 mg 6-18 by mouth 2 ity of tablet 00:00: (two) [place] 00 times Medical daily. Branch furosemide 2021-0 [...] # 60 l Levodopa 21:52: tab, 3 [place] 100 MG Oral 00 Refill(s), Tablet Pharmacy: [...] by mouth 2 ity of 00:00: (two) [place] 00 times Medical daily. Branch ELIQUIS 5 2020-0 Yes 5mg Take 5 mg Uni vers mg tablet 6-11 by mouth 2 ity of 00:00: (two) [place] 00 times Medical daily. Branch ELIQUIS 5 2020-0 Yes 5mg Take 5 mg Uni vers mg tablet 6-11 by mouth 2 ity of 00:00: (two) [place] 00 times Medical daily. Branch ELIQUIS 5 2020-0 Yes 5mg Take 5 mg Uni vers mg tablet 6-11 by mouth 2 ity of 00:00: (two) [place] 00 times Medical daily. Branch ELIQUIS 5 2020-0 Yes 5mg Take 5 mg Uni vers mg tablet 6-11 by mouth 2 ity of 00:00: (two) [place] 00 times Medical daily. Branch ELIQUIS 5 2020-0 Yes 5mg Take 5 mg Uni vers mg tablet 6-11 by mouth 2 ity of 00:00: (two) [place] 00 times Medical daily. Branch Sotalol 2020-0 Yes 80 mg = 1 Memor ia 5-24 tab, PO, l 20:02: BID, # 60 [place] 00 tab, 0 Refill(s) Sotalol 2020-0 Yes 80 mg = 1 Memor ia 5-24 tab, PO, l 20:02: BID, # 60 [place] 00 tab, 0 Refill(s) Sotalol Yes 80 mg = 1 Memor ia 5-24 tab, PO, l 20:02: BID, # 60 [place] 00 tab, 0 Refill(s) Lasix 0 Yes [...] moria 5-24 Daily, 0 l 20:00: Refill(s) [place] 00 [facility] 2018-02 No Notes: Memoria Mineral Oil -24 (Same l Enema 19:58: as: Mineral Oil Enema) [facility] 2018-02 No Notes: Memoria Mineral Oil -24 (Same l Enema 19:58: as: Mineral Oil Enema) [facility] 2018-02 No Notes: Memoria Mineral Oil -24 (Same l Enema 19:58: as: Mineral Oil Enema) naproxen 2018-02 Yes 500 mg = 1 Mem oria 500 mg oral 1-24 tab, PO, l tablet 15:04: BID, X 7 day, # 14 tab, 0 Refill(s), Pharmacy: [facility] #[id number] bisacodyl 2018-02 Yes 10 mg = 1 Mem oria 10 mg 1-24 supp, [place], l rectal 15:04: Daily, PRN Lilly nn suppository 00 Constipati on, # 10 supp, 0 Refill(s), Pharmacy: [facility] #[id number] Docusate 2018-02 Yes 100 mg = 1 Mem oria Sodium 100 1-24 cap, PO, l MG Oral 15:04: BID, # 60 Lilly nn Capsule 00 cap, 0 [Colace] Refill(s), Pharmacy: [facility][id number] bisacodyl 5 2018-02 Yes 10 mg = 2 M emoria mg oral 1-24 tab, PO, l enteric 15:04: Daily, PRN Herm ayush coated 00 Constipati tablet on, X 10 day, # 20 tab, 0 Refill(s), Pharmacy: [facility] #[id number] POLYETHYLEN 2018-02 Yes 17 gm, PO, Memoria E GLYCOL 1-24 Daily, PRN l [id number] 142 15:04: Constipati Her pinon MG/ML Oral 00 on, # 255 Solution gm, 0 [Miralax] Refill(s), [id number] naproxen 2018-02 Yes 500 mg = 1 Mem oria 500 mg oral 1-24 tab, PO, l tablet 15:04: BID, X 7 [place] 00 day, # 14 tab, 0 Refill(s), [id number] bisacodyl 2018-02 Yes 10 mg = 1 Mem oria 10 mg 1-24 supp, [place], l rectal 15:04: Daily, PRN Lilly nn suppository 00 Constipati on, # 10 supp, 0 Refill(s), Pharmacy: [facility] #[id number] Docusate 2018-02 Yes 100 mg = 1 Mem oria Sodium 100 1-24 cap, PO, l MG Oral 15:04: BID, # 60 Lilly nn Capsule 00 cap, 0 [Colace] Refill(s), Pharmacy: [facility] #[id number] bisacodyl 5 2018-02 Yes 10 mg = 2 M emoria mg oral 1-24 tab, PO, l enteric 15:04: Daily, PRN Herm ayush coated 00 Constipati tablet on, X 10 day, # 20 tab, 0 Refill(s), Pharmacy: [facility] #[id number] POLYETHYLEN 2018-02 Yes 17 gm, PO, Memoria E GLYCOL 1-24 Daily, PRN l 3350 142 15:04: Constipati Her pinon MG/ML Oral 00 on, # 255 Solution gm, 0 [Miralax] Refill(s), Pharmacy: [facility] #[id number] naproxen 2018-02 Yes 500 mg = 1 Mem oria 500 mg oral 1-24 tab, PO, l tablet 15:04: BID, X 7 [place] 00 day, # 14 tab, 0 Refill(s), Pharmacy: [facility] #[id number] bisacodyl 2018-02 Yes 10 mg = 1 Mem oria 10 mg 1-24 supp, [place], l rectal 15:04: Daily, PRN Lilly nn suppository 00 Constipati on, # 10 supp, 0 Refill(s), Pharmacy: [facility] #[id number] Docusate 2018-02 Yes 100 mg = 1 Mem oria Sodium 100 1-24 cap, PO, l MG Oral 15:04: BID, # 60 Lilly nn Capsule 00 cap, 0 [Colace] Refill(s), Pharmacy: [facility] #[id number] bisacodyl 5 2018-02 Yes 10 mg = 2 M emoria mg oral 1-24 tab, PO, l enteric 15:04: Daily, PRN Herm ayush coated 00 Constipati tablet on, X 10 day, # 20 tab, 0 Refill(s), Pharmacy: [facility] #[id number] POLYETHYLEN 2018-02 Yes 17 gm, PO, Memoria E GLYCOL 1-24 Daily, PRN l 3350 142 15:04: Constipati Her pinon MG/ML Oral 00 on, # 255 Solution gm, 0 [Miralax] Refill(s), Pharmacy: [facility] #[id number] Lactulose 2018-02 No Notes: Memori a 667 MG/ML 1-24 (Same l Oral 01:11: as:Chronul [place] Solution 00 ac) Lactulose 2018-02 No Notes: Memori a 667 MG/ML 1-24 (Same l Oral 01:11: as:Chronul [place] Solution 00 ac) Lactulose 2018-02 No Notes: Memori a 667 MG/ML 1-24 (Same l Oral 01:11: as:Chronul [place] Solution 00 ac) Lactulose 2018-02 No Notes: Memori a 667 MG/ML -23 (Same l Oral 14:13: as:Chronul [place] Solution 00 ac) Lactulose 2018-02 No Notes: Memori a 667 MG/ML 1-23 (Same l Oral 14:13: as:Chronul [place] Solution 00 ac) Lactulose 2018-02 No Notes: Memori a 667 MG/ML 1-23 (Same l Oral 14:13: as:Chronul [place] Solution 00 ac) Dulcolax 2018-02 No Notes: Memoria Laxative 1-23 (Same As: l 12:41: Dulcolax, [place] 00 Bisco-Lax) Dulcolax 2018-02 No Notes: Memoria Laxative 1-23 (Same As: l 12:41: Dulcolax, [place] 00 Bisco-Lax) Dulcolax 2018-02 No Notes: Memoria Laxative 1-23 (Same As: l 12:41: Dulcolax, [place] 00 Bisco-Lax) Melatonin 2018-02 No Notes: Pepe [...] e 1-21 Tablet l 19:15: should not [place] 00 be chewed or crushed. (Same as: Protonix) pantoprazol 2018-02 No Notes: Pepe micki e 1-21 Tablet l 19:15: should not [place] 00 be chewed or crushed. (Same as: Protonix) Phenergan 2018-02 No Notes: Memori a 1-20 (Same as: l 00:41: Phenergan) [place] Phenergan 2018-02 No Notes: Memori a 1-20 (Same as: l 00:41: Phenergan) [place] Phenergan 2018-02 No Notes: Memori a 1-20 (Same as: l 00:41: Phenergan) [place] Phenergan 2018-02 No 25 mg, Memori a 1-20 Route: IM, l 00:40: Q6H, [place] 00 Dosing Weight 74.2, kg, PRN Nausea & Vomiting, Start date: 01/14/19 18:40:00 [employer], Duration: 30 day, Stop date: 02/13/19 18:39:00 [employer] Phenergan 2018-02 No 25 mg, Memori a 1-20 Route: IM, l 00:40: Q6H, [place] 00 Dosing Weight 74.2, kg, PRN Nausea & Vomiting, Start date: 01/14/19 18:40:00 [employer], Duration: 30 day, Stop date: 02/13/19 18:39:00 [employer] Phenergan 2018-02 No 25 mg, Memori a 1-20 Route: IM, l 00:40: Q6H, [place] 00 Dosing Weight 74.2, kg, PRN Nausea & Vomiting, Start date: 01/14/19 18:40:00 [employer], Duration: 30 day, Stop date: 02/13/19 18:39:00 [employer] Dulcolax 2018-02 No Notes: Memoria Laxative 1-19 (Same As: l 16:12: Dulcolax, [place] 00 Bisco-Lax) Dulcolax 2018-02 No Notes: Memoria Laxative 1-19 (Same As: l 16:12: Dulcolax, [place] 00 Bisco-Lax) Dulcolax 2018-02 No Notes: Memoria Laxative 1-19 (Same As: l 16:12: Dulcolax, [place] 00 Bisco-Lax) Levaquin 2018-02 No Notes: Do Pepe micki 1-19 not give l 12:00: w/antacids [place] 00 , dairy pdt & minerals Take 1 hr before or 2 hr after dairy products Levaquin 2018-02 No Notes: Do Ppee micki -19 not give l 12:00: w/antacids [place] 00 , dairy pdt & minerals Take 1 hr before or 2 hr after dairy products Levaquin 2018-02 No Notes: Do Pepe micki -19 not give l 12:00: w/antacids [place] 00 , dairy pdt & minerals Take 1 hr before or 2 hr after dairy products metoprolol 2018-02 No Notes: Memor ia extended 1-18 (Same as: l release 20:49: Toprol XL) Herm ayush 00 May split tab, but do not crush. Albuterol 2018-02 No Notes: Memori a 0.833 MG/ML 1-18 (Same as: l / 20:49: Duoneb) [place] Ipratropium 00 [employer] 0.167 MG/ML Inhalant Solution metoprolol 2018-02 No Notes: Memor ia extended 1-18 (Same as: l release 20:49: Toprol XL) Herm ayush 00 May split tab, but do not crush. Albuterol 2018-02 No Notes: Memori a 0.833 MG/ML 1-18 (Same as: l / 20:49: Duoneb) [place] Ipratropium 00 [employer] 0.167 MG/ML Inhalant Solution metoprolol 2018-02 No Notes: Memor ia extended 1-18 (Same as: l release 20:49: Toprol XL) Herm ayush 00 May split tab, but do not crush. Albuterol 2018-02 No Notes: Memori a 0.833 MG/ML -18 (Same as: l / 20:49: Duoneb) [place] Ipratropium 00 [employer] 0.167 MG/ML Inhalant Solution Docusate 2018-02 No [...] tab, PO, l Tablet 16:51: BID, 0 [place] 00 Refill(s) naproxen 2018-02 No 500 mg = 2 Mem oria 250 mg oral 1-18 tab, PO, l tablet 16:51: BID, 0 [place] 00 Refill(s) Docusate 2018-02 No 100 mg = 1 Mem oria Sodium 100 1-18 cap, PO, l MG Oral 16:51: BID, 0 [place] Capsule 00 Refill(s) Famotidine 2018-02 Yes 20 mg = 1 Me moria 20 MG Oral 1-18 tab, PO, l Tablet 16:51: BID, 0 [place] 00 Refill(s) naproxen 2018-02 No 500 mg = 2 Mem oria 250 mg oral 1-18 tab, PO, l tablet 16:51: BID, 0 [place] 00 Refill(s) Dulcolax 2018-02 No Notes: Memoria Laxative -18 (Same As: l 15:00: Dulcolax, [place] 00 Correctol) (Do Not Crush) "Do Not Crush" Miralax 2018-02 No Notes: Memoria 1-18 Dissolve l 15:00: in 8 oz of [place] 00 water or juice. (Same as: Miralax) [...] Dissolve l 15:00: in 8 oz of [place] 00 water or juice. (Same as: Miralax) Naproxen 2018-02 No Notes: Memoria 1-17 (Same as: l 16:38: Naprosyn) [place] Take with food. Naproxen 2018-02 No Notes: Memoria 1-17 (Same as: l 16:38: Naprosyn) [place] 00 Take with food. Naproxen 2018-02 No [...] micki n 1-16 (Same l 07:00: as:Levaqui [place] 00 n) Levofloxaci 2018-02 No Notes: Pepe micki n 1-16 (Same l 07:00: as:Levaqui [place] 00 n) Levofloxaci 2018-02 No Notes: Pepe micki n 1-16 (Same l 07:00: as:Levaqui [place] 00 n) Docusate 2018-02 No Notes: Memoria Sodium 100 1-15 (Same as: l MG Oral 23:00: Colace) [place] Capsule 00 (Do Not Crush) Docusate 2018-02 No Notes: Memoria Sodium 100 1-15 (Same as: l MG Oral 23:00: Colace) [place] Capsule 00 (Do Not Crush) Docusate 2018-02 No Notes: Memoria Sodium 100 1-15 (Same as: l MG Oral 23:00: Colace) [place] Capsule 00 (Do Not Crush) Acetaminoph 2018-02 No Notes: Do M emoria en 325 MG / 1-15 not exceed l Hydrocodone 19:50: 4gm/day of [place] Bitartrate 00 acetaminop 10 MG Oral hen. Tablet (Same as: [[place] 10/325] 325/10) Acetaminoph 2018-02 No Notes: Do M emoria en 325 MG / 1-15 not exceed l Hydrocodone 19:50: 4gm/day of [place] Bitartrate 00 acetaminop 10 MG Oral hen. Tablet (Same as: [[place] 10/325] 325/10) Acetaminoph 2018-02 No Notes: Do M emoria en 325 MG / 1-15 not exceed l Hydrocodone 19:50: 4gm/day of [place] Bitartrate 00 acetaminop 10 MG Oral hen. Tablet (Same as: [[place] 10/325] 325/10) clopidogrel 2018-02 No Notes: Pepe micki 1-15 (Same As: l 15:02: Plavix) [place] 00 Flomax 2018-02 No Notes: Memoria 1-15 (Same As: l 15:02: Flomax) [place] 00 "Do Not Crush" clopidogrel 2018-02 No Notes: Pepe micki 1-15 (Same As: l 15:02: Plavix) [place] 00 Flomax 2018-02 No Notes: Memoria 1-15 (Same As: l 15:02: Flomax) [place] 00 "Do Not Crush" clopidogrel 2018-02 No Notes: Pepe micki 1-15 (Same As: l 15:02: Plavix) [place] 00 Flomax 2018-02 No Notes: Memoria 1-15 (Same As: l 15:02: Flomax) [place] 00 "Do Not Crush" Morphine 2019- No 2 mg, 1 Memori a 1-15 mL, Route: l 11:04: IVP, Drug [place] form: SOLN, Q4H, Dosing Weight 74.2, kg, PRN Pain Score 7-10, Start date: 01/10/19 5:04:00 SOFTBALL WINDER, Duration: 30 day, Stop date: 02/09/19 5:03:00 SOFTBALL WINDER, 0 Morphine 2018- No 2 mg, 1 Memori a 1-15 mL, Route: l 11:04: IVP, Drug [place] 00 form: SOLN, Q4H, Dosing Weight 74.2, kg, PRN Pain Score 7-10, Start date: 01/10/19 5:04:00 SOFTBALL WINDER, Duration: 30 day, Stop date: 02/09/19 5:03:00 SOFTBALL WINDER, 0 Morphine 2018- No 2 mg, 1 Memori a 1-15 mL, Route: l 11:04: IVP, Drug form: SOLN, Q4H, Dosing Weight 74.2, kg, PRN Pain Score 7-10, Start date: 01/10/19 5:04:00 SOFTBALL WINDER, Duration: 30 day, Stop date: 02/09/19 5:03:00 SOFTBALL WINDER, 0 Streptococc 2018-02 No Notes: Pepe micki us 1-15 Shake well l pneumoniae 09:35: prior to Her pinon serotype 1 51 use (Same capsular as: antigen Prevnar diphtheria 13) [id number] protein conjugate vaccine / Streptococc us pneumoniae serotype 14 capsular antigen diphtheria [id number] protein conjugate vaccine / Streptococc us pneumoniae serotype 18C capsular antigen d Streptococc 2018-02 No Notes: Pepe micki us 1-15 Shake well l pneumoniae 09:35: prior to Her pinon serotype 1 51 use (Same capsular as: antigen Prevnar diphtheria 13) [id number] protein conjugate vaccine / Streptococc us pneumoniae serotype 14 capsular antigen diphtheria [id number] protein conjugate vaccine / Streptococc us pneumoniae serotype 18C capsular antigen d Streptococc 2018-02 No Notes: Pepe micki us 1-15 Shake well l pneumoniae 09:35: prior to Her pinon serotype 1 51 use (Same capsular as: antigen Prevnar diphtheria 13) [id number] protein conjugate vaccine / Streptococc us pneumoniae serotype 14 capsular antigen diphtheria [id number] protein conjugate vaccine / Streptococc us pneumoniae [...] tab, PO, l tablet 09:19: Daily, # [place] 00 30 tab, 0 Refill(s) atorvastati 2018-02 [...] tab, PO, l tablet 09:19: Daily, # [place] 00 30 tab, 0 Refill(s) atorvastati 2018-02 Yes 80 mg, PO, Memoria n 1-15 Daily, 0 l 09:19: Refill(s) [place] 00 Tamsulosin 2018-02 Yes 0.4 mg = 1 M emoria hydrochlori 1-15 cap, PO, l de 0.4 MG 09:19: Daily, # Herm ayush Oral 00 30 cap, 0 Capsule Refill(s) [Flomax] Albuterol 2018-02 No Notes: Memori a 0.833 MG/ML 1-15 (Same as: :00: Duoneb) [place] Ipratropium 00 [employer] 0.167 MG/ML Inhalant Solution Albuterol 2018-02 No Notes: Memori a 0.833 MG/ML 1-15 (Same as: l :00: Duoneb) Philip Ipratropium 00 [employer] 0.167 MG/ML Inhalant Solution Albuterol 2018-02 No Notes: Memori a 0.833 MG/ML 1-15 (Same as: l :00: Duoneb) [place] Ipratropium 00 [employer] 0.167 MG/ML Inhalant Solution Ondansetron 2018-02 No [...] emoria 15 Rate: 60 l 08:33: ml/hr, [place] 00 Infuse over: 16.7 hr, Route: IV, Dosing Weight 74.2 kg, Total Volume: 1,000, Start date: 01/10/19 2:33:00 SOFTBALL WINDER, Duration: 1 doses or times, Stop date: 01/10/19 19:14:00 SOFTBALL WINDER, 1.91, m2, 0 NS 1,000 mL 2018-02 No 1,000 mL, M emoria 03-12 Rate: 60 l 08:33: ml/hr, [place] 00 Infuse over: 16.7 hr, Route: IV, Dosing Weight 74.2 kg, Total Volume: 1,000, Start date: 01/10/19 2:33:00 SOFTBALL WINDER, Duration: 1 doses or times, Stop date: 01/10/19 19:14:00 SOFTBALL WINDER, 1.91, m2, 0 NS 1,000 mL 2018-02 No 1,000 mL, M emoria 03-12 Rate: 60 l 08:33: ml/hr, [place] 00 Infuse over: 16.7 hr, Route: IV, Dosing Weight 74.2 kg, Total Volume: 1,000, Start date: 01/10/19 2:33:00 SOFTBALL WINDER, Duration: 1 doses or times, Stop date: 01/10/19 19:14:00 SOFTBALL WINDER, 1.91, m2, 0 Morphine 2018-02 No Notes: [...] Notes: Memoria 1-15 (Same l 07:20: as:MORPhin [place] 00 e Sulfate) Zofran 2018-02 No Notes: Memoria 1-15 (Same as: l 07:20: Zofran) [place] 00 MEDICATION WASTE Product Size: 4 mg Product Wasted: ___ mg Levaquin 2018-02 No Notes: Memoria 1-15 (Same l 07:17: as:Levaqui [place] 00 n) Levaquin 2018-02 No Notes: Memoria 1-15 (Same l 07:17: as:Levaqui [place] 00 n) Levaquin 2018-02 No Notes: Memoria 1-15 (Same l 07:17: as:Levaqui [place] 00 n) Zofran 2018-02 No Notes: Memoria 1-15 (Same as: l 04:21: Zofran) [place] 00 MEDICATION WASTE Product Size: 4 mg Product Wasted: ___ mg Zofran 2018-02 No Notes: Memoria 1-15 (Same as: l 04:21: Zofran) [place] 00 MEDICATION WASTE Product Size: 4 mg Product Wasted: ___ mg Zofran 2018-02 No Notes: Memoria 1-15 (Same as: l 04:21: Zofran) [place] 00 MEDICATION WASTE Product Size: 4 mg Product Wasted: ___ mg Saline 2018-02 No Notes: Memoria Flush 0.9% 1-15 (Same as: l 04:20: BD [place] 00 Posiflush) Sodium 2018-02 No 1,000 mL, Memori a Chloride 1-15 2,000 l 0.9% 04:20: ml/hr, [place] (Bolus) IV 00 Infuse Over: 0.5 hr, Route: IV, 1,000, Drug form: INJ, ONCE, Priority: STAT, Dosing Weight 74.2 kg, Start date: 01/09/19 22:20:00 SOFTBALL WINDER, Stop date: 01/09/19 22:20:00 SOFTBALL WINDER, 0 Saline 2018-02 No Notes: Memoria Flush 0.9% 1-15 (Same as: l 04:20: BD [place] 00 Posiflush) Sodium 2018-02 No 1,000 mL, Memori a Chloride 1-15 2,000 l 0.9% 04:20: ml/hr, [place] (Bolus) IV 00 Infuse Over: 0.5 hr, Route: IV, 1,000, Drug form: INJ, ONCE, Priority: STAT, Dosing Weight 74.2 kg, Start date: 01/09/19 22:20:00 SOFTBALL WINDER, Stop date: 01/09/19 22:20:00 SOFTBALL WINDER, 0 Saline 2018-02 No Notes: Memoria Flush 0.9% 1-15 (Same as: l 04:20: BD [place] 00 Posiflush) Sodium 2018-02 No 1,000 mL, Memori a Chloride 1-15 2,000 l 0.9% 04:20: ml/hr, Philip (Bolus) IV 00 Infuse Over: 0.5 hr, Route: IV, 1,000, Drug form: INJ, ONCE, Priority: STAT, Dosing Weight 74.2 kg, Start date: 01/09/19 22:20:00 SOFTBALL WINDER, Stop date: 01/09/19 22:20:00 SOFTBALL WINDER, 0 metoprolol 2018-02 Yes 50mg Take 50 [...] daily. n 1.1 % 00 of scalp [place] [facility] teeth with cream cream and spit [...] kg Systolic blood 2020-12-01 15:50:00 147 mm[Hg] [facility] 2020-12-01 15:50:00 71 mm[Hg] [facility] [place] Respiratory rate 2020-12-01 15:50:00 18 /[facility] O[facility] saturation in 2020-12-01 15:50:00 100 /min [facility] Arterial blood by [facility] Pulse oximetry Branch Body temperature 2020-12-01 15:45:00 36.22 [facility] Heart rate 2020-12-01 13:51:00 68 /min [facility] Body height 2020-11-18 14:58:00 175.3 cm [facility] Body weight 2020-11-18 14:58:00 76.2 kg [facility] BMI 2020-11-18 14:58:00 24.80 kg/m2 [facility] Systolic blood 2020-12-01 15:50:00 147 mm[Hg] [facility] Diastolic blood 2020-12-01 15:50:00 71 mm[Hg] Unive [facility] Respiratory rate 2020-12-01 15:50:00 18 /min [facility] [place] [facility] Oxygen saturation in 2020-12-01 15:50:00 100 /min [facility] of Arterial blood by [place] [facility] Pulse oximetry Branch Body temperature 2020-12-01 15:45:00 36.22 Jessica [facility] [place] [facility] Heart rate 2020-12-01 13:51:00 68 /min [facility] Body height 2020-11-18 14:58:00 175.3 cm [facility] Body weight 2020-11-18 14:58:00 76.2 kg [facility] BMI 2020-11-18 14:58:00 24.80 kg/m2 [facility] HEIGHT 2020-09-28 12:51:00 175.3 cm WEIGHT 2020-09-28 12:51:00 74.844 kg WEIGHT 2020-09-28 06:00:00 74.9 kg WEIGHT 2020-09-27 06:00:00 72.5 kg HEIGHT 2020-09-26 03:52:00 175.3 cm WEIGHT 2020-09-26 03:52:00 75 kg Diastolic blood 2020-09-15 19:30:00 75 mm[Hg] [facility] Heart rate 2020-09-15 19:30:00 59 /min [facility] Oxygen saturation in 2020-09-15 19:30:00 98 /min [facility] Arterial blood by [place] [facility] Pulse oximetry Branch Systolic blood 2020-09-15 19:30:00 146 mm[Hg] [facility] Respiratory rate 2020-09-15 19:21:00 24 /min [facility] [place] [facility] Body temperature 2020-09-15 19:15:00 36.17 Jessica [facility] Body height 2020-09-06 18:10:00 175.3 cm [facility] Body weight 2020-09-06 18:10:00 76.3 kg [facility] BMI 2020-09-06 18:10:00 24.83 kg/m2 [facility] Diastolic blood 2020-09-15 19:30:00 75 mm[Hg] [facility] Heart rate 2020-09-15 19:30:00 59 /min [facility] Oxygen saturation in 2020-09-15 19:30:00 98 /min [facility] Arterial blood by [place] [facility] Pulse oximetry Branch Systolic blood 2020-09-15 19:30:00 146 mm[Hg] [facility] Respiratory rate 2020-09-15 19:21:00 24 /min [facility] Body temperature 2020-09-15 19:15:00 36.17 Jessica [facility] [place] [facility] Body height 2020-09-06 18:10:00 175.3 cm [facility] Body weight 2020-09-06 18:10:00 76.3 kg [facility] BMI 2020-09-06 18:10:00 24.83 kg/m2 [facility] Systolic blood 2020-09-15 19:30:00 146 mm[Hg] [facility] Diastolic blood 2020-09-15 19:30:00 75 mm[Hg] [facility] Heart rate 2020-09-15 19:30:00 59 /min [facility] Oxygen saturation in 2020-09-15 19:30:00 98 /min [facility] Arterial blood by [employer] mendez Pulse oximetry Branch Respiratory rate 2020-09-15 19:21:00 24 /min [facility] [place] [facility] Body temperature 2020-09-15 19:15:00 36.17 Jessica [facility] [place] [facility] Body height 2020-09-06 18:10:00 175.3 cm [facility] [place] [facility] [place] Body weight 2020-09-06 18:10:00 76.3 kg Universi ty [facility] BMI 2020-09-06 18:10:00 24.83 kg/m2 Universi ty [facility] Systolic blood 2020-09-15 19:30:00 146 mm[Hg] Univer sity of pressure [facility] Diastolic blood 2020-09-15 19:30:00 75 mm[Hg] Unive rsity of [facility] Heart rate 2020-09-15 19:30:00 59 /min Universi ty [facility] Oxygen saturation in 2020-09-15 19:30:00 98 /min [facility] Arterial blood by [facility] Pulse oximetry Branch Respiratory rate 2020-09-15 19:21:00 24 /min [facility] Body temperature 2020-09-15 19:15:00 36.17 [facility] Body height 2020-09-06 18:10:00 175.3 cm Universi ty [facility] Body weight 2020-09-06 18:10:00 76.3 kg Universi ty [facility] BMI 2020-09-06 18:10:00 24.83 kg/m2 Universi [facility] Systolic blood 2020-09-29 11:17:00 132 mm[Hg] [facility] Diastolic blood 2020-09-29 11:17:00 61 mm[Hg] [facility] Heart rate 2020-09-29 11:17:00 78 /min [facility] Body temperature 2020-09-29 11:17:00 36.44 Jessica [facility] Respiratory rate 2020-09-29 11:17:00 20 /min [facility] Oxygen saturation in 2020-09-29 11:17:00 97 /min [facility] - Arterial blood by [facility] nter Pulse oximetry Body height 2020-09-28 12:51:00 175.3 cm [facility] Body weight 2020-09-28 12:51:00 74.844 kg [facility] BMI 2020-09-28 12:51:00 24.37 kg/m2 [facility] Systolic (mm Hg) 2020-09-06 19:00:00 Pepe rial [place] Diastolic (mm Hg) 2020-09-06 19:00:00 Mem orial [place] Heart Rate 2020-09-06 19:00:00 [facility] [place] Respitory Rate 2020-09-06 19:00:00 Memori al [place] Systolic (mm Hg) 2020-08-09 20:36:00 Pepe rial [place] Diastolic (mm Hg) 2020-08-09 20:36:00 Mem orial [place] Heart Rate 2020-08-09 20:36:00 [facility] [place] Respitory Rate 2020-08-09 20:36:00 Memori al [place] Systolic (mm Hg) 2020-07-19 19:31:00 Pepe rial [place] Diastolic (mm Hg) 2020-07-19 19:31:00 Mem orial [place] Heart Rate 2020-07-19 19:31:00 [facility] [place] Respitory Rate 2020-07-19 19:31:00 Memori al [place] Height 2020-07-19 19:31:00 175.26 cm [facility] [place] Weight 2020-07-19 19:31:00 [facility] [place] BMI Calculated 2020-07-19 19:31:00 Memori al [place] Temperature Oral (F) 2019-01-19 21:26:00 97.6 F [facility] [place] Heart Rate 2019-01-19 21:26:00 [facility] [place] Respitory Rate 2019-01-19 21:26:00 Memori al [place] Systolic (mm Hg) 2019-01-19 21:26:00 Pepe rial [place] Diastolic (mm Hg) 2019-01-19 21:26:00 Mem orial [place] Temperature Oral (F) 2019-01-19 17:23:00 97.9 F [facility] [place] Heart Rate 2019-01-19 17:23:00 [facility] [place] Respitory Rate 2019-01-19 17:23:00 Memori al [place] Systolic (mm Hg) 2019-01-19 17:23:00 Pepe rial [place] Diastolic (mm Hg) 2019-01-19 17:23:00 Mem orial [place] Temperature Oral (F) 2019-01-19 13:47:00 97.6 F [facility] [place] Heart Rate 2019-01-19 13:47:00 [facility] [place] Respitory Rate 2019-01-19 13:47:00 Ada velázquez [place] Systolic (mm Hg) 2019-01-19 13:47:00 Pepe Palacios Diastolic (mm Hg) 2019-01-19 13:47:00 Eugenia Palacios Height 2019-01-10 12:17:00 170.18 cm [facility] [place] Weight 2019-01-10 03:42:00 [facility] Procedure Date / Time Performing Source Performed Clinician PHACOEMULSIFICATION OF 2020-12-01 Robin Wolf [facility] CATARACT WITH INTRAOCULAR 15:03:00 Medica l Branch LENS IMPLANT ASSIGNMENT OF BENEFITS 2020-11-29 Doctor Unassigned, [facility] 20:50:21 [place] [facility] POCT-GLUCOSE METER 2020-09-29 Hasolimpia, Zaheer Ali [facility] - 11:24:00 [facility] POCT-GLUCOSE METER 2020-09-29 Hasolimpia, Zaheer Ali [facility] - 07:37:00 [facility] BASIC METABOLIC PANEL (7) 2020-09-29 Jessica, Ramesh [facility] - 05:02:00 [facility] CBC (HEMOGRAM ONLY) 2020-09-29 Jessica, Ramesh [facility] - 05:02:00 [facility] MAGNESIUM 2020-09-29 Jessica, Ramesh [facility] - 05:02:00 [facility] POCT-GLUCOSE METER 2020-09-28 Hasolimpia, Zaheer Ali [facility] - 22:29:00 [facility] US ABDOMEN LIMITED 2020-09-[address] [facility] - 15:36:00 [facility] APTT 2020-09-28 Jessica, Ramesh [facility] - 10:58:00 [facility] POCT-GLUCOSE METER 2020-09-28 Hasolimpia, Zaheer Ali [facility] - 07:47:00 [facility] BASIC METABOLIC PANEL (7) 2020-09-28 Jessica, Ramesh [facility] - 06:37:00 [facility] CBC (HEMOGRAM ONLY) 2020-09-28 Jessica, Ramesh [facility] - 06:37:00 [facility] MAGNESIUM 2020-09-28 [facility] 06:37[facility]00 [facility] APTT 2020-09-28 Jessica, Ramesh [facility] - 00:27:00 [facility] POCT-GLUCOSE METER 2020-09-27 Hasolimpia, Zaheer Ali [facility] - 16:39:00 [facility] POCT-GLUCOSE METER 2020-09-27 Hasolimpia, Zaheer Ali [facility] - 11:16:00 [facility] 2D ECHO W/ DOPPLER 2020-09-27 Jose Rafael [facility] - (CW/PW/COLOR) 09:45:35 [facility] POCT-GLUCOSE METER 2020-09-27 Diana, Zaheer Ali [facility] - 08:43:00 [facility] SARS-COV2/RT-PCR (SLHS & REF 2020-09-27 [facility] LABS) 04:13:00 [facility] BASIC METABOLIC PANEL (7) 2020-09-27 [facility] - 04:13:00 [facility] CBC (HEMOGRAM ONLY) 2020-09-27 Jessica, [facility] - 04:13:00 [facility] MAGNESIUM 2020-09-27 [facility] - 04:13:00 [facility] IRON, TIBC, % SAT. (WITHOUT 2020-09-27 Diana, Zaheer Ali [facility] - FERRITIN) 04:13:00 [facility] FERRITIN 2020-09-27 Diana, Zaheer Ali [facility] - 04:13:00 [facility] VITAMIN B12 AND FOLATE 2020-09-27 Diana, Zaheer Ali [facility] - 04:13:00 [facility] POCT-GLUCOSE METER 2020-09-26 Diana Zaheer Ali [facility] - 23:06:00 [facility] APTT 2020-09-26 Jessica, Ramesh [facility] - 12:26:00 [facility] ABORH, MANUAL 2020-09-26 [facility] Lucero [facility] - 06:46:00 [facility] XR CHEST 1 VIEW PORTABLE / 2020-09-26 Jorje Covarrubias [facility] - BEDSIDE 05:40:00 [facility] COMPREHENSIVE METABOLIC PANEL 2020-09-26 [facility]ias [facility] - 04:29:00 [facility] HEMOGLOBIN A1C 2020-09-[address] [facility] - 04:29:00 [facility] HIGH SENSITIVITY TROPONIN I 2020-09-[address] [facility] - 04:29:00 [facility] LIPID PANEL 2020-09-[facility] 04:29:00 [facility] CBC W/PLT COUNT & AUTO 2020-09-26 [facility] - DIFFERENTIAL 04:29:00 [facility] B-TYPE NATRIURETIC FACTOR 2020-09-26 [facility] (BNP) 04:29:00 [facility] TYPE AND SCREEN, AUTOMATED 2020-09-26 [facility] - 04:29:00 [facility] PROTHROMBIN TIME/INR 2020-09-26 [facility] - 04:28:00 [facility] APTT 2020-09-26 [facility] 04:28:00 [facility] ECG 12-LEAD 2020-09-26 Unknown, Hl7 Doctor [facility] - 03:44:53 [facility] PHACOEMULSIFICATION OF 2020-09-15 Robin Wolf [facility] CATARACT WITH INTRAOCULAR 18:32:00 Medica l Branch LENS IMPLANT CBC WITH DIFF 2020-09-[address] [facility] 19:46:00 Medical Branch COVID-19 (ID NOW RAPID 2020-09-13 Robin Wolf [facility] TESTING) 19:40:00 Medical Branch ASSIGNMENT OF BENEFITS 2020-09-13 Doctor Unassigned, [facility] 19:32:02 [place] [facility] Plan of Care Planned Activity [...] Department ID 2020-12-27 Outpatient SULEMA WOLF OPH [id number] Univers 19:23:53 [facility] 2020-12-27 Outpatient R KIRK [facility] OPH [id number] Univers 09:11:23 [facility] 2020-09-26 Inpatient ER ORDOÑEZ-CAM [facility] Cardiology [id number] [facility] 03:36:00 FRANKY MANDUJANO 2020-12-08 2020-12-08 Outpatient J LUIS TANNER [id number] Memoria 14:30:00 14:30:00 04 kumar Palacios 2020-12-07 2020-12-07 Outpatient CIRO TANNER [id number] Memoria 10:45:00 10:45:00 03 kumar Palacios 2020-12-01 2020-12-01 [facility] [id number] Univers 08:45:00 11:16:00 Encounter Robin Langford [id number] [id number] [id number] [facility] 020 Branch 2020-12-01 2020-12-01 [facility] [id number] Univers 10:08:00 10:50:00 Robin Langford [id number] [id number] [id number] [facility] 020 Branch 2020-11-29 2020-11-29 Laboratory Only, Adc Test [facility] [id number] Univers 15:49:32 16:04:32 Only Robin Wolf [id number] 0 [id number] [id number] [facility] 353 Branch 2020-11-29 2020-11-29 Outpatient R [facility] [id number] Univers 15:15:00 15:15:00 [id number] ity of [facility] 2020-11-29 2020-11-29 Outpatient R [facility] [id number] Univers 15:15:00 15:15:00 ity of [facility] 2020-11-29 2020-11-29 Orders Doctor ASHLEY [id number] Univers 00:00:00 00:00:00 Only Unassigned, [place] [id number] ity of [place] [facility] [id number] [place] [id number] [facility] 009 Branch 2020-11-09 2020-11-09 Outpatient R [facility] [id number] Univers 12:00:00 12:00:00 [id number] ity of [facility] 2020-09-26 2020-09-26 [facility] [id number] [facility] 00:00:00 23:59:00 Elle 2020-09-24 2020-09-24 Outpatient STLMLC [facility] [id number] [facility] 00[facility]00 Francymarkus Rip [facility] 2020-09-15 2020-09-15 Surgery [facility] [id number] Univers 14:11:00 14:51:00 Robin Sumeet Primitivo [id number] [id number] [id number] [facility] 020 [place] 2020-09-15 2020-09-15 Surgery [facility] [id number] 14:11:00 14:51:00 [place] [id number] [place] [id number] Surgical [id number] [place] [address] 2020-09-15 2020-09-15 [facility] [id number] Univers 12:25:00 14:50:00 Encounter Robin Langford [id number] [id number] [id number] [facility] [address] [place] [address] 2020-09-15 2020-09-15 [facility] [id number] 12:25:00 14:50:00 Encounter Robin Langford [id number] [place] [id number] Surgical [id number] [place] [address] 2020-09-13 2020-09-13 Outpatient R [facility] [id number] Univers 15:15:00 15:15:00 [id number] ity of [facility] 2020-09-13 2020-09-13 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 [id number] Univers 14:17:45 14:32:45 Only Robin Wolf [id number] 0 ity of [place] [id number] [facility] [id number] [address] 2020-09-13 2020-09-13 Laboratory Only, [facility] [id number] 14:17:45 14:32:45 Only Test [place] [id number] [place] [id number] [place] [id number] [facility] 2020-09-13 2020-09-13 Outpatient Angi WOLF [facility] [id number] Univers 14:00:00 14:00:00 [facility] System 2020-09-13 2020-09-13 Orders Doctor ASHLEY [id number] Univers 00:00:00 00:00:00 Only Unassigned, ML 350.1.13.10 [place] [facility] 4.2.7.2.686 Hernán [id number] [address] 2020-09-13 2020-09-13 Orders Doctor ASHLEY [id number] 00:00:00 00:00:00 Only Unassigned, ML 350.1.13.10 [place] [facility] 4.2.7.2.686 [id number] 2020-09-06 2020-09-07 Outpatient nullFlavo MNA [id number] Memoria 19:00:00 04:59:59 r Neurology 02 l Lapwaikezia Palacios 2020-08-20 2020-08-20 Outpatient Angi WOLF [facility] [id number] Univers 15:45:00 15:45:00 ROBIN boone [facility] 2020-08-11 2020-08-11 Outpatient STLMLC STLMLC [id number] [facility] St 00[facility]00[facility]00 [facility]00[facility]00 [facility] 2020-08-09 2020-08-10 Outpatient nullFlavo MNA [id number] Memoria 20:00:00 04:59:59 r Neurology 01 l Lapwai Philip 2020-08-03 2020-08-03 Outpatient [facility]LMLC [facility] [id number] [facility] 2020-07-28 2020-07-28 Outpatient STLMLC [facility]C [id number] [facility] 2020-07-19 2020-07-20 Outpatient nullFlavo MNA [id number] Memoria 19:30:00 04:59:59 r Neurology 00 l Lapwai [place] 2020-07-13 2020-07-13 Outpatient STLMLC [facility]LC [id number] [facility] 2020-07-05 2020-07-05 Outpatient [facility]LMLC STLC [id number] [facility] 2020-06-29 2020-06-29 Outpatient [facility]LMLC STLC [id number] [facility] 2020-06-25 2020-06-25 Outpatient [facility]LMLC [facility] [id number] [facility] 2020-06-24 2020-06-24 Outpatient STLMLC STLC [id number] [facility] 2019-01-10 2019-01-20 Inpatient nullFlavo [facility] [id number] Memoria 03:18:46 00:08:00 r Philip 00 l [place] Lilly 2019-01-10 2019-01-10 Inpatient E [facility] MED 7500 [facility] 15:16:00 01:33:00 Results Test Description Test Time Test Comments Results Result Comments Source POC-Glucose meter 2020-09-29 11:42:00 Test Item Value Reference Range Interpretation Comme nts POC-Glucose Meter (test code = 106 mg/dL 70-110 : TESTED AT [facility] [address] [facility] 1538) [facility], 770 30: Database Software Technician/Techni jenifer ID = [id number] for ISIAH EM Lab Interpretation (test code = Normal 64005-7) [facility] [id number] 11:42:00 Test Item Value Reference Range Interpretation Comments POC-GLUCOSE METER 106 mg/dL 70-110 : [facility] (BEAKER) (test code = AUDREY Whitley [facility], 1538) 87[address]: Database Software Technician/Techni jenifer ID = [id number] for ISIAH COLLINS POCT-GLUCOSE [id number] 07:59:00 Test Item Value Reference Range Interpretation Comments POC-GLUCOSE METER 98 mg/dL 70-110 : TESTED A T [facility] 6720 (BEAKER) (test code = AUDREY Whitley [facility], 1538) [address]: Database Software Technician/Techni jenifer ID = [id number] for ISIAH MANRIQUEZ [id number] 06:20:00 Test Item Value Reference Range Interpretation Comments Magnesium (test code = 2.1 mg/dL 1.6-2.6 96402-2) GRABIEL (test code = GRABIEL) Database Software Technician ID - BS Lab Interpretation (test Normal code = 83948-3) [facility] [id number] 06:20:00 Test Item Value Reference Range Interpretation [...] Calcium (test code = 9.4 mg/dL 8.4-10.2 51577-8) EGFR (test code = 93 mL/min/1.73 [place] [address]-1) NOT ACCURATE CREATININE CLEARANCE IN PREDICTING GLOMERULAR FILTRATION RATE . ESTIMATED GFR I S NOT APPLICABLE FOR DIALYSIS PATIENTS. GRABIEL (test code = GRABIEL) Database Software Technician ID - BS Lab Interpretation Abnormal (test code = 46623-7) [facility] HospitalBAPSYCHIATRIC METABOLIC [id number] 06:20:00 Test Item Value Reference Range Interpretation [...] S NOT APPLICABLE FOR DIALYSIS PATIEN TS. Database Software Technician ID - [id number] 06:20:00 Test Item Value Reference Range Interpretation Comments MAGNESIUM (BEAKER) (test code = 2.1 mg/dL 1.6-2.6 627) Database Software Technician ID - BSCBC (Hemogram only)2020-09-29 05:40:00 Test Item Value Reference Range Interpretation Comments WBC (test code = 6690-2) 3.9 See_Comment [A utomated message] The system iTMan generated this result transmitted ref erence range: 3.5 - 10 .5 K/L. The refe rence range was not u sed to interpret this result as normal/abnor mal. RBC (test code = 789-8) 4.16 See_Comment L [Au tomated message] The system iTMan generated this result transmitted ref erence range: 4.63 - 6 .08 M/L. The refe rence range was not u sed to interpret this result as normal/abnor mal. MCHC (test code = 786-4) 31.3 See_Comment L [A utomated message] The system iTMan generated this result transmitted ref erence range: [...] See_Comment [Aut omated message] 777-3) The system iTMan generated this result transmitted ref erence range: 150 - 45 0 K/CU MM. The referen ce range was not u sed to interpret this result as normal/abnor mal. MPV (test code = 10.4 fL 9.4-12.4 63915-5) nRBC (test code = 413) 0 See_Comment [Aut omated message] The system iTMan generated this result transmitted ref erence range: 0 - 0 /1 00 WBC. The refere nce range was not u sed to interpret this result as normal/abnor mal. Lab Interpretation (test Abnormal code = 04124-1) [facility] (HEMOGRAM ONLY)2020-09-29 05:40:00 Test Item [...] 0-0 (BEAKER) (test code = 413) POCT-GLUCOSE [id number] 22:41:00 Test Item Value Reference Range Interpretation Comments POC-GLUCOSE METER 97 mg/dL 70-110 : TESTED A T [facility] 6720 (BEAKER) (test code = AUDRE[place], 1538) [address]: Database Software Technician/Techni jenifer ID = [id number] for Stam per, [place] U/S, ABDOMINAL, [id number] 17:39:00Abdomen limited area? Add comment if clarification is needed.->Gall BladderReason for exam:->epigastric pain [facility] 1935 Sex: MFINAL REPORT [...] Alvarez Verified Date/Time: 09/28/2020 17:39:04 US abdomen [id number] 17:39:00Interface, External Ris In - 09/28/2020 5:44 [...] by: NAYELY ALVAREZ MD on 09/28/2020 05:39 [facility]PTT20[facility] 11:24:00 Test Item Value Reference Range Interpretation Comments PTT (test code = 78.0 See_Comment H [Automated message] 79635-7) The system iTMan generated this result transmitted ref erence range: 22.5 - 3 6.0 seconds. The reference range was not used to int erpret this result as normal/abnormal . Lab Interpretation (test Abnormal code = 31752-8) [facility]APTT[facility] 11:24:00 Test Item Value Reference Range Interpretation Comments PARTIAL THROMBOPLASTIN TIME 78.0 seconds 22.5-36.0 H (BEAKER) (test code = 760) POCT-GLUCOSE [id number] 07:58:00 Test Item Value Reference Range Interpretation Comments POC-GLUCOSE METER 102 mg/dL 70-110 : TESTED A T [facility] 6720 (BEAKER) (test code = AUDREY Angi [place], 1538) [address]: Database Software Technician/Techni jenifer ID = [id number] for Alexandra casas (contract) Kalpesh lazo BASIC METABOLIC [id number] 07:24:00 Test Item Value Reference Range Interpretation [...] S NOT APPLICABLE FOR DIALYSIS PATIEN TS. Database Software Technician ID - PIAYA [id number] 07:24:00 Test Item Value Reference Range Interpretation Comments MAGNESIUM (BEAKER) (test code = 2.1 mg/dL 1.6-2.6 627) Database Software Technician ID - PIAYA LCBC (HEMOGRAM ONLY)2020-09-28 06:59:00 [...] WBC 0-0 (BEAKER) (test code = 413) [id number] 01:15:00 Test Item Value Reference Range Interpretation Comments PARTIAL THROMBOPLASTIN TIME 32.7 seconds 22.5-36.0 (BEAKER) (test code = 760) POCT-GLUCOSE [id number] 16:51:00 Test Item Value Reference Range Interpretation Comments POC-GLUCOSE METER 107 mg/dL 70-110 : TESTED A T [facility] 6720 (BEAKER) (test code = AUDREY [place], 1538) [address]: Database Software Technician/Techni jenifer ID = [id number] for Suzanne Huerta rd ECG 12 [id number] 15:06:28Interface, External Ris In - 09/27/2020 3:06 PM CDTVentricular Rate 74 BPMAtrial Rate 74 BPMP-R Interval 366 msQRS Duration 78 msQ-T Interval 394 msQTC Calculation(Bazett) 437 msP [place] 61 degreesR [place] 66 degreesT [place] 196 degreesSinus rhythm with 1st degree A-V blockMinimal ST depression and T wave inversion in I, II and aVL with mild ST elevation in aVR consider ischemiaAbnormal ECGNo previous ECGs availableConfirmed by MD LUZ, ANDREI ([id number]) on 09/27/2020 3:06:24 [facility]2D Echo W/Doppler(CW/PW/Color)2020-09-27 14:02:33Ejection FractionSLEH ECHO HEARTLAB MKCKESSON CPACSInterface, External Ris In - 09/27/2020 2:02 PM CDTTransthoracic Echocardiography Report (TTE) Demographics Patient Name JERE RHODES Date ofStudy 09/27/2020 DARLIN Gender Male Visit Number [id number] Race Unknown RoomNumber 8A07 Number Date of 1935 Referring Franky Mantilla Physician Age 85 year(s) Manager Activities Darlene Lares [facility] Perfumer Jovanni Benz Interpreting [facility] Physician James Chirinos MD Procedure Type of [...] LVOT CO: 3.61 l/min LVOT CI: 1.93 l/min/m^2CMiller Children's HospitalARS-CoV2/RT-PCR (Asymptomatic ONLY)2020-09-27 13:03:00 Test Item Value Reference Range Interpretation Comments SARS-COV2/RT-PCR Negative Not Detected, (test code = Negative, See 09787-0) external report for linked test SARS-COV-2 [facility] PERFORMING LAB (test code = 74873-0) GRABIEL (test code = Negative result for [...] of the Act. Fact Sheet for Healthcare Providers:https://www.lemonade.uk/sites/default/f carmen/product/documents/F act_Sheet_HC_Providers_L ysz_RKIU-OlR-9.pdf Fact Sheet for Healthcare Patients:https://www.NitroSecurity/sites/default/fi les/product/documents/Fa ct_Sheet_Patients_Lyra_S ARS-CoV-2.pdf Performing Laboratory:[facility] [place] [address] [facility] ([facility])2020-09-27 13:03:00 Test Item Value Reference Range Interpretation Comments SARS-COV2/RT-PCR (test Negative Not Detected, Negative, code = 0197922) See external report for linked test SARS-COV-2 PERFORMING LAB [facility] JIMENEZ (test code = 7256352) Negative result for this test determines that [...] 564(g) of the Act.Fact Sheet for Healthcare Providers:https://www.Angle/sites/default/files/product/documents/Fact_Shee h_[place]_Qjbtwkqda_Sfwj_UTWV-RdX-5.pdfFact Sheet for Healthcare Patients:https://www.Angle/sites/default/files/product/ documents/Hhps_Dqbjw_Qziclpzw_Ydfr_YWAB-AkA-9.pdfPerforming Laboratory:[address] [facility], [place] [address]KDUP-NLZKKDS METER 2020-09-27 11:29:00 Test Item Value Reference Range Interpretation Comments POC-GLUCOSE METER 124 mg/dL 70-110 H : Notified RN/MD: (HANNAH) (test code = TESTED AT [place] [address] 1538) [facility], [address]: Database Software Technician/Techni jenifer ID = [id number] for PH INISEE, DARRYL POCT-GLUCOSE [id number] 08:54:00 Test Item Value Reference Range Interpretation Comments POC-GLUCOSE METER 135 mg/dL 70-110 H : TESTED A T [place] [address] (HANNAH) (test code = KHUSHIHARRIS Whitley [facility], 1538) [address]: Database Software Technician/Techni jenifer ID = [id number] for PH INISEE, DARRYL Vitamin B12 and [id number] 05:55:00 Test Item Value Reference Range Interpretation Comments Vitamin B12 (test 578 pg/mL 213-816 code = 2132-9) Folate (test code = 18.00 ng/mL See_Comment [Automa valentina 2284-8) message] The system which generated this result transmit [place] reference range : >=7.00. The reference range was not used to interpret this result as normal/abnormal . GRABIEL (test code = GRABIEL) Database Software Technician ID - CLARA Grajeda Lab Interpretation Normal (test code = 14587-8) [facility] HospitalFerritin2021-08-02 05:55:00 Test Item Value Reference Range Interpretation Comments Ferritin (test code = 35.96 ng/mL 5-275 2276-4) GRABIEL (test code = GRABIEL) Database Software Technician ID - CLARA Lab Interpretation (test Normal code = 47175-5) [facility] HospitalFERRITIN2021-08-02 05:55:00 Test Item Value Reference Range Interpretation Comments FERRITIN (BEAKER) (test code = 35.96 ng/mL 5.00-275.00 361) Database Software Technician ID Rip ELIZABETH MVITAMIN B12 AND [id number] 05:55:00 Test Item Value Reference Range Interpretation Comments VITAMIN B12 578 pg/mL 213-816 (BEAKER) (test code = 774) FOLATE (BEAKER) 18.00 ng/mL See_Comment [Automated message] (test code = 362) The system which generated this result transmitted ref erence range: >=7.00. The reference range was not used to interpr et this result as normal/abnormal . Database Software Technician ID - CLARA Saldanaon, TIBC, % sat. (without ferritin)2020-09-27 05:10:00 Test Item Value Reference Range Interpretation Comments Iron (test code = 2498-4) 37.0 ug/dL 40-160 L TIBC (test code = 2500-7) 404 ug/dL 250-450 Iron % Saturation (test 9 % 20-55 L code = 2502-3) GRABIEL (test code = GRABIEL) Database Software Technician ID - CLARA Grajeda Lab Interpretation (test Abnormal code = 17846-7) [facility] HospitalIRON, TIBC, % SAT. (WITHOUT FERRITIN)2020-09-27 05:10:00 Test Item Value Reference Range Interpretation Comments IRON (BEAKER) (test code = 547) 37.0 ug/dL 40.0-160.0 L TOTAL IRON BINDING CAPACITY 404 ug/dL 250-450 (BEAKER) (test code = 769) IRON % SATURATION (2) (BEAKER) 9 % 20-55 L (test code = 2590) Database Software Technician AIYANA ELIZABETH MBASIC METABOLIC [id number] 04:39:00 Test Item Value Reference Range Interpretation [...] S NOT APPLICABLE FOR DIALYSIS PATIEN TS. Database Software Technician ID Rip ELIZABETH [id number] 04:39:00 Test Item Value Reference Range Interpretation Comments MAGNESIUM (BEAKER) (test code = 2.3 mg/dL 1.6-2.6 627) Database Software Technician ID Rip ELIZABETH MCBC (HEMOGRAM ONLY)2020-09-27 04:22:00 [...] 0-0 (BEAKER) (test code = 413) POCT-GLUCOSE [id number] 23:19:00 Test Item Value Reference Range Interpretation Comments POC-GLUCOSE METER 109 mg/dL 70-110 : TESTED A T [facility] 6720 (BEAKER) (test code = [place], 1538) [address]: Database Software Technician/Techni jenifer ID = [id number] for FRANCIA SANCHES [id number] 13:27:00 Test Item Value Reference Range Interpretation Comments PARTIAL THROMBOPLASTIN TIME 75.7 seconds 22.5-36.0 H (BEAKER) (test code = 760) Hemoglobin [id number] 08:25:00 Test Item Value Reference Range Interpretation Comments Hemoglobin A1C (test code = 4548-4) 6.7 % 4.3-6.1 H Lab Interpretation (test code = Abnormal 39458-5) [facility] HospitalHEMOGLOBIN [id number] 08:25:00 Test Item Value Reference Range Interpretation Comments HEMOGLOBIN A1C (BEAKER) (test code = 6.7 % 4.3-6.1 H 368) RAD, CHEST, 1 VIEW, NON [id number] 08:15:00Reason for exam:->shortness of breath Should this be performed at the bedside?->Yes [facility] 1935 Sex: MFINAL REPORT INDICATION: shortness of breath COMPARISON: None ANTON HNIQUE: Single frontal view of the chest. FINDINGS: Lungs and pleura: Clear lungs. No effusion.Heartand mediastinum: Normal heart size. Unremarkable mediastinal contours.Osseous structures: No acute abnormality.Other: None. IMPRESSION: No acute intrathoracic abnormality. Signed: Yaneth Gifford Verified Date/Time: 09/26/2020 08:15:42 Reading Location: [address] Neuro Reading Room XR chest 1 view portable / [id number] 08:15:00 Interface, External Ris In - 09/26/2020 8:17 AM CDTFINAL REPORT INDICATION: shortness of breath COMPARISON: None TECHNIQUE: Single frontal view of the chest. FINDINGS: Lungs andpleura: Clear lungs. No effusion.Heart and mediastinum: Normal heart size. Unremarkable mediastinal c ontours.Osseous structures: No acute abnormality.Other: None. IMPRESSION: No acute intrathoracic abnormality. Signed: Yaneth Gifford Verified Date/Time: 09/26/2020 08:15:42 Reading Location: [address] Neuro Reading Room [facility]AB[facility], [id number] 07:15:00 Test Item Value Reference Range Interpretation Comments ABO Grouping (test code = 2588) B Rh Factor (test code = 2589) POS [facility] HospitalType and screen, [id number] 06:19:00 Test Item Value Reference Range Interpretation Comments ABO/RH AUTOMATED (BEAKER) (test B POSITIVE code = 2260) Ab Scrn (test code = 890-4) NEGATIVE [facility] HospitalAPTT2021 05:20:00 Test Item Value Reference Range Interpretation Comments PARTIAL THROMBOPLASTIN TIME 111.9 seconds 22.5-36.0 H (BEAKER) (test code = 760) Patient on hep drippingComprehensive metabolic [id number] 05:17:00 Test Item Value Reference Range Interpretation Comments Protein, Total 6.7 See_Comment [Automated (test code = message] The 2885-2) system which generated this result transmit [place]ent[place] reference range : 6.0 - 8.3 gm/dL . The reference range was not u sed to interpret th is result as normal/abnormal . Albumin (test code 3.6 g/dL 3.5-5 = 86203-5) Alkaline 102 U/L 40-150 Phosphatase (test code = 6768-6) Total Bilirubin 0.4 mg/dL 0.2-1.2 (test code = 1975-2) Sodium (test code = 138 meq/L 123-585 9015-2) Potassium (test 4.0 meq/L 3.5-5.1 code = 2823-3) Chloride (test code 102 meq/L 98-107 = 2075-0) CO2 (test code = 24 meq/L 22-29 2027-9) BUN (test code = 16 mg/dL 7-21 3094-0) Creatinine (test 0.91 mg/dL 0.57-1.25 code = 2160-0) Glucose (test code 103 mg/dL 70-105 = 2345-7) Calcium (test code 9.2 mg/dL 8.4-10.2 = 74952-2) AST (test code = 29 U/L 5-34 1920-8) ALT (test code = 24 U/L 6-55 1742-6) EGFR (test code = 79 mL/min/1.73 [place] [address]-0) NOT ACCURATE CREATININE CLEARANCE IN PREDICTING GLOMERULAR FILTRATION RATE . ESTIMATED GFR I S NOT APPLICABLE FOR DIALYSIS PATIEN TS. GRABIEL (test code = Database Software Technician ID - DB GRABIEL) [facility] HospitalLipid [id number] 05:17:00 Test Item Value Reference Range Interpretation Comments Triglycerides (test 90 mg/dL code = 2571-8) Cholesterol (test code 171 mg/dL = 2093-3) HDL (test code = 39 mg/dL 2084-9) LDL Calculated (test 114 mg/dL code = 79944-4) GRABIEL (test code = GRABIEL) Triglyceride Reference Range: Low Risk <150 Borderline 150-199 High Risk 200-499 Very High Risk >=500 Cholesterol Reference Range: Low Risk <200 Borderline 200-239 High Risk >240 HDL Cholesterol Reference Range: Low Risk >=60 High Risk <40 LDL Cholesterol Reference Range: Optimal <100 Near Optimal 100-129 Borderline 130-159 High 160-189 Very High >=190 Database Software Technician ID - DB [facility] HospitalCOMPREHENSIVE METABOLIC [id number] 05:17:00 Test Item Value Reference Range Interpretation [...] S NOT APPLICABLE FOR DIALYSIS PATIEN TS. Database Software Technician ID - DBLIPID [id number] 05:17:00 Test Item Value Reference Range Interpretation [...] Borderline 130-159 High 160-189 Very High >=190 Database Software Technician ID - DBB-type Natriuretic Factor (BNP)2020-09-26 05:16:00 Test Item Value Reference Range Interpretation Comments BNP (test code = 70896-6) 686 pg/mL 0-100 H GRABIEL (test code = GRABIEL) Database Software Technician ID - DB Lab Interpretation (test Abnormal code = 80581-1) [facility] HospitalB-TYPE NATRIURETIC FACTOR (BNP)2020-09-26 05:16:00 Test Item Value Reference Range Interpretation Comments B-TYPE NATRIURETIC PEPTIDE (BEAKER) 686 pg/mL 0-100 H (test code = 700) Database Software Technician ID - DBHigh Sensitivity Troponin [id number] 05:14:00 Test Item Value Reference Range Interpretation Comments Troponin I HS 175 pg/ml See_Comment H [Automated (test code = message] The 49740-3) system which generated this result transmitted reference range : <=35. The reference range was not used to interpret this result as normal/abnormal . GRABIEL (test code = Database Software Technician ID - GRABIEL) DBThe ATHLETIC GEAR CUSTODIAN STAT High Sensitivity Troponin-I results should be used in conjunction with other diagnostic information such as ECG, clinical observations and information, and patient symptoms to aid in the diagnosis of UT. Lab Interpretation Abnormal (test code = 90107-7) [facility] HospitalHIGH SENSITIVITY TROPONIN [id number] 05:14:00 Test Item Value Reference Range Interpretation Comments HIGH SENSITIVITY 175 pg/ml See_Comment H [Automated message] TROPONIN I (test code The sy nara which = 6183304) generated this result transmitted ref erence range: <=35. Th e reference range was not used to int erpret this result as normal/abnormal . Database Software Technician ID - DBThe ATHLETIC GEAR CUSTODIAN STAT High Sensitivity Troponin-I results should be used in conjunctionwith other diagnostic information such as ECG, clinical observations and information, and patient symptoms to aid in the diagnosis of UT.Prothrombin time/[id number] 05:07:00 Test Item Value Reference Interpretation Comments Range Protime (test code = 15.6 See_Comment H [Autom ated 7102-2) message] The system which generated this result transmitted reference range : 11.9 - 14.2 seconds. The reference range was not used to interpret this result as normal/abnormal . INR (test code = 1.26 See_Comment [Automated 2387-6) message] The system which generated this result [...] valves. Lab Interpretation Abnormal (test code = 08787-4) [facility] HospitalPROTHROMBIN TIME/[id number] 05:07:00 Test Item Value Reference Range Interpretation Comments PROTIME (BEAKER) 15.6 seconds 11.9-14.2 H (test code = 759) INR (BEAKER) (test 1.26 See_Comment [Automat ed message] code = 370) The system [employer] generated this result transmitted ref erence range: [...] 4.1 See_Comment [A utomated message] The system iTMan generated this result transmitted ref erence range: 3.5 - 10 .5 K/L. The refe rence range was not u sed to interpret this result as normal/abnor mal. RBC (test code = 789-8) 3.65 See_Comment L [Au tomated message] The system iTMan generated this result transmitted ref erence range: 4.63 - 6 .08 M/L. The refe rence range was not u sed to interpret this result as normal/abnor mal. MCHC (test code = 786-4) 31.2 See_Comment L [A utomated message] The system iTMan generated this result transmitted ref erence range: [...] L [Aut omated message] 777-3) The system iTMan generated this result transmitted ref erence range: 150 - 45 0 K/CU MM. The referen ce range was not u sed to interpret this result as normal/abnor mal. MPV (test code = 10.3 fL 9.4-12.4 82383-7) nRBC (test code = 413) 0 See_Comment [Aut omated message] The system iTMan generated this result transmitted ref erence range: [...] See_Comment [Aut omated message] 670) The system iTMan generated this result transmitted ref erence range: 1.78 - 5 .38 K/L. The refe rence range was not u sed to interpret this result as normal/abnor mal. # Lymphs (test code = 1.01 See_Comment L [Auto mated message] 414) The system iTMan generated this result transmitted ref erence range: 1.32 - 3 .57 K/L. The refe rence range was not u sed to interpret this result as normal/abnor mal. # Monos (test code = 0.44 See_Comment [Autom ated message] 415) The system iTMan generated this result transmitted ref erence range: 0.30 - 0 .82 K/L. The refe rence range was not u sed to interpret this result as normal/abnor mal. # Eos (test code = 416) 0.16 See_Comment [Au tomated message] The system iTMan generated this result transmitted ref erence range: 0.04 - 0 .54 K/L. The refe rence range was not u sed to interpret this result as normal/abnor mal. # Baso (test code = 417) 0.02 See_Comment [A utomated message] The system iTMan generated this result transmitted ref erence range: 0.01 - 0 .08 K/L. The refe rence range was not u sed to interpret this result as normal/abnor mal. Immature 0 % 0-1 Granulocytes-Relative (test code = 2801) Lab Interpretation (test Abnormal code = 14030-3) [facility] W/PLT COUNT & AUTO [id number] 04:49:00 Test Item Value Reference Range Interpretation [...] Not Detected Not Detected (test code = 23040-3) GRABIEL (test code = GRABIEL) ID NOW COVID-19 Assay is an isothermal nucleic acid amplification test intended for the qualitative detection of nucleic acid from SARS-CoV-2 viral RNA in nasopharyngeal ([facility]) specimens. It is used under Emergency Use [...] indicated. Lab Interpretation Normal (test code = 17782-6) [facility] WITH MFIX6905-49-47 19:54:17 Test Item Value Reference Range Interpretation Comments WBC (test code = See_Comment [Automated 7190-2) message] The sy stem which generated this result transmitted reference range : 4.20 - 10.70 10*3/?L. The reference range was not used to interpret this result as normal/abnormal . RBC (test code = See_Comment L [Automated 449-8) message] The sy stem which generated this [...] (test code = 52.3 fL 38.5-51.6 H 66020-4) RDW-CV (test code = 15.1 % 12.1-15.4 788-0) PLT (test code = See_Comment [Automated 777-3) message] The sy stem which generated this result transmitted reference range : 150 - 328 10*3/ ?L. The reference r sheryl was not used to interpret this result as normal/abnormal . MPV (test code = 10.2 fL 9.8-13.0 44980-0) NRBC/100 WBC (test See_Comment [Automat ed code = 2518159271) message] The system which generated this result transmitted reference range : 0.0 - 10.0 /100 WBCs. The refer ence range was not u sed to interpret th is result as normal/abnormal . NRBC x10^3 (test code <0.01 See_Comment [Auto mated = 7324522623) message] The s ystem which generated this result transmitted reference range : 10*3/?L. The reference range was not used to interpret this result as normal/abnormal . GRAN MAT (NEUT) % 59.2 % (test code = 770-8) IMM GRAN % (test code 0.40 % = 5648121662) LYMPH % (test code = 26.7 % 736-9) MONO % (test code = 10.6 % 5905-5) EOS % (test code = 2.7 % 713-8) BASO % (test code = 0.4 % 706-2) GRAN MAT x10^3(ANC) 2.63 10*3/uL 1.99-6.95 (test code = 6336881007) IMM GRAN x10^3 (test <0.03 0.00-0.06 code = 4191290329) LYMPH x10^3 (test code 1.19 10*3/uL 1.09-3.23 = 731-0) MONO x10^3 (test code 0.47 10*3/uL 0.36-1.02 = 742-7) EOS x10^3 (test code = 0.12 10*3/uL 0.06-0.53 711-2) BASO x10^3 (test code <0.03 0.01-0.09 = 704-7) Lab Interpretation Abnormal (test code = 77735-7) [id number] [facility]:22:00Yellow *NA*(01/15/19 6:22 PM)[facility] VAPUE8632-41-20 00:22:00Clear (01/15/19 6:22 PM)[facility] PUFNI1421-31-09 00:22:00 Test Item Value Reference Range Interpretation Comments UA Spec Grav (test code = UA Spec 1.023 1 Grav) [facility] DTDTQ9247-09-52 00:22:00 Test Item Value Reference Range Interpretation Comments UA pH (test code = UA pH) 5.0 1 5.0-8.0 [facility] EIKZA4001-17-07 00:22:00Negative (01/15/19 6:22 PM) [facility] SLCQS9523-85-59 00:22:00Negative *NA*(01/15/19 6:22 PM)[facility] KKXAL4907-45-55 00:22:00Negative *NA*(01/15/19 6:22 PM)[facility] RLGJK5679-25-47 00:22:00Negative (01/15/19 6:22 PM) [facility] FDCWX5701-44-00 00:22:00Negative (01/15/19 6:22 PM) [facility] NYSDO4406-43-99 00:22:00Negative (01/15/19 6:22 PM) [facility] XYBDC0132-63-13 00:22:00None Seen (01/15/19 6:22 PM) [facility] OXHNR9398-18-17 00:22:001[facility] NNNBK7131-55-26 00:22:001[facility] PRCQU4025-92-85 00:22:00 Yellow *NA*(01/15/19 6:22 PM)[facility] LTMBR5939-97-67 00:22:00 Clear (01/15/19 6:22 PM)[facility] YRPQG7455-57-34 00:22:00 Test Item Value Reference Range Interpretation Comments UA Spec Grav (test code = UA Spec 1.023 1 Grav) [facility] FOHLA6740-98-54 00:22:00 Test Item Value Reference Range Interpretation Comments UA pH (test code = UA pH) 5.0 1 5.0-8.0 [facility] UHDKF1475-00-02 00:22:00Negative (01/15/19 6:22 PM) [facility] BHHDL2199-15-33 00:22:00Negative *NA*(01/15/19 6:22 PM)[facility] QGMDI3974-27-70 00:22:00Negative *NA*(01/15/19 6:22 PM)[facility] GZLNV9723-68-94 00:22:00Negative (01/15/19 6:22 PM) [facility] VMSPX1241-45-51 00:22:00Negative (01/15/19 6:22 PM) [facility] CKUIP3006-51-15 00:22:00Negative (01/15/19 6:22 PM) [facility] SFYAI0939-16-52 00:22:00None Seen (01/15/19 6:22 PM) [facility] DWFDK0126-45-01 00:22:001[facility] FYHLA4585-26-62 00:22:001[facility] PHMAE8520-58-56 00:22:00 Yellow *NA*(01/15/19 6:22 PM)[facility] MQREB0227-26-46 00:22:00 Clear (01/15/19 6:22 PM)[facility] FRYFP2465-39-46 00:22:00 Test Item Value Reference Range Interpretation Comments UA Spec Grav (test code = UA Spec 1.023 1 Grav) [facility] [id number] 00:22:00 Test Item Value Reference Range Interpretation Comments UA pH (test code = UA pH) 5.0 1 5.0-8.0 [facility] PZPCI7350-59-76 00:22:00Negative (01/15/19 6:22 PM) [facility] AQUOY8456-23-40 00:22:00Negative *NA*(01/15/19 6:22 PM)[facility] HYEHY0246-34-09 00:22:00Negative *NA*(01/15/19 6:22 PM)[facility] GOSDF9206-43-64 00:22:00Negative (01/15/19 6:22 PM) [facility] HVVLX8658-73-50 00:22:00Negative (01/15/19 6:22 PM) [facility] LALBN8173-37-11 00:22:00Negative (01/15/19 6:22 PM) [facility] YGFPA3800-08-03 00:22:00None Seen (01/15/19 6:22 PM) [facility] VGGTT5287-08-64 00:22:001[facility] JPBAI3431-87-80 00:22:001[facility] QVGNS2524-35-94 10:48:002.3 [facility] DGYOG3633-46-23 10:48:003.0[facility]annELECTROLYTES 2019-01-14 10:48:0010.3[facility] OhuuknpODVJLXRCOZOZ6543-54-78 10:48:27464 [facility] QcmawwzVILXYMTVYKXL5067-87-62 10:48:0015[facility]annELECTROLYTES 2019-01-14 10:48:000.69[facility] WsckzleHYSRYNKHHVAX9337-03-22 10:48:73912 [facility] ZymyevtGJPAEUBXTTVA6405-07-79 10:48:004.3[facility]annELECTROLYTES 2019-01-14 10:48:12630Oyhrkwtf UaoryilVSLCUYBSQKSU4393-19-53 10:48:0026[facility] TlpdvfmPVJHJHZXCPOT5332-46-89 10:48:008.9[facility] FdawlkwKCEZEYJMIJIE2442-58-66 10:48:0087[facility] GzjigklAPTKFLSVAT0196-89-08 10:48:002.6[facility] MNIAPYLWDR2996-81-66 10:48:003.79[facility] DlxkiawEBMXRDGVYP1759-48-83 10:48:00 11.1[facility] WsemgduGMSKCASSNI3694-20-99 10:48:0034.9[facility]annHEMATOLOGY 2019-01-14 10:48:0092.0[facility] NfapbmzTXRAZVZRMG6177-37-71 10:48:00 Test Item Value Reference Range Interpretation Comments MCH (test code = MCH) 29.3 pg 27.0-31.0 [facility] WxcdlldEGMKNFZWKO5137-81-57 10:48:0031.8[facility]annHEMATOLOGY 2019-01-14 10:48:0016.5[facility] ZbdfcccVXCCZNAZMR5299-09-64 10:48:70502Tpsozyyy FwfwmhyNGNGDXWQSM7010-37-41 10:48:008.3[facility] UorlbkkVLOAJQWJYV1692-27-98 10:48:0066.8[facility] QhqkiijRMVRPNDKVW6235-30-90 10:48:0012.6[facility] [place] QUAWIFGGQI1981-52-77 10:48:008.4[facility] LivmmclEZYUQSBJUG6582-22-56 10:48:00 11.5[facility] SgfwynrVNFXNEIGAA0978-50-58 10:48:000.7[facility]annHEMATOLOGY 2019-01-14 10:48:001.7[facility] JiofherQSIZMAIXIC2958-86-80 10:48:000.3[facility] MgkpetxJWNWNUCFTQ3811-53-41 10:48:000.2[facility] HzatceuPIKIGVPACX6933-04-55 10:48:000.3[facility] DphealcUAILKNOHTMCV1353-78-87 10:48:0087[facility] RYXDKGNIWE5065-28-81 10:48:002.6[facility] CpjfbvkQOBLYTRMPD6337-70-30 10:48:00 3.79[facility] FwrhtjnDHSIKLNUUY7535-65-77 10:48:0011.1[facility]annHEMATOLOGY 2019-01-14 10:48:0034.9[facility] IbfzfpwCYZZHGDWWO7763-44-40 10:48:0092.0[facility] UqbsnnpLLDYSOJSTD1127-56-98 10:48:00 Test Item Value Reference Range Interpretation Comments MCH (test code = MCH) 29.3 pg 27.0-31.0 [facility] ImqabgeZNVUFBBXMU1483-07-06 10:48:0031.8[facility]annHEMATOLOGY 2019-01-14 10:48:0016.5[facility] IwjshivCGKFAZFNHL1419-71-93 10:48:35598Mwiiszgx GfegeucUVYHPNKITZ7253-75-73 10:48:008.3[facility] AasbyjiCAARAALLPK9787-00-29 10:48:0066.8[facility] TcoztxaZTVMCTEZSG3200-60-73 10:48:0012.6[facility] BNOTUCWTSI1660-82-29 10:48:008.4[facility] WjztotnWUFZCEWCYD6992-86-67 10:48:00 11.5[facility] GynrbvqFJFOLTXYMO9641-48-89 10:48:000.7[facility]annHEMATOLOGY 2019-01-14 10:48:001.7[facility] VhihgmpGSBKDMGZJK2338-73-29 10:48:000.3[facility] AxalowpHZNYXDLOFY7140-30-50 10:48:000.2[facility] TaklfdmANVQZWRLKK5193-34-31 10:48:000.3[facility]annCHEM DINYY8419-08-19 10:48:002.3[facility]annCHEM BYXMF3986-57-72 10:48:003.0[facility] MiceqerRNGKYPSQTBPM6751-22-92 10:48:0010.3 [facility] UpbdinrUTQEJGFIUIOZ4650-34-81 10:48:06722Lwydlxmh HermannELECTROLYTES 2019-01-14 10:48:0015[facility] SxxtuyqTRQILZKSJNZM5832-48-03 10:48:000.69[facility] ZzrnbxnQIDVRPTJCKGK0609-31-56 10:48:93572Ymndqeaa DrcbrhcZJXNXCCCVPIQ5443-36-45 10:48:004.3[facility] EephaulSVTZGRSBYBXO7685-24-01 10:48:37700Quhimvgt [place] NTPIBGSAQAOO7655-38-13 10:48:0026[facility] YhrhtvvGBKIOWSKDTQQ6259-57-96 10:48:00 8.9[facility] YkuloznWDLOHUDKNXKU6202-71-31 10:48:0087[facility]annHEMATOLOGY 2019-01-14 10:48:002.6[facility] WhgfeplIBIBHBEWJC9032-88-77 10:48:003.79[facility] KmnppzgMTPDVKBMDG3549-62-26 10:48:0011.1[facility] FelpzoaNIEFRJGSCS8167-51-59 10:48:0034.9[facility] TznyqkvJVQWOKVOWN1468-97-32 10:48:0092.0[facility] ASAIYGQPGN6275-49-16 10:48:00 Test Item Value Reference Range Interpretation Comments MCH (test code = MCH) 29.3 pg 27.0-31.0 [facility] KtbdoshXOWXBQRFXT0233-73-40 10:48:0031.8[facility]annHEMATOLOGY 2019-01-14 10:48:0016.5[facility] EowskyjCOKTMQSDBB5719-58-84 10:48:15536Mdcnixnu ZgykttnGRHOWAGGMG0585-08-21 10:48:008.3[facility] BkaoljkXAEEFPDVIK3196-88-43 10:48:0066.8[facility] VtymsvtURGDBIRHDH1604-60-96 10:48:0012.6[facility] BTSDEAQQTJ9437-44-23 10:48:008.4[facility] DikaicdNZGHNFBMBP4983-75-11 10:48:00 11.5[facility] VjzsfdpYCAJKJLUJX3241-63-06 10:48:000.7[facility]annHEMATOLOGY 2019-01-14 10:48:001.7[facility] IcxhdfiGYZAYFDLJX2634-25-54 10:48:000.3[facility] HnwoangDEGPWLMPKY2077-80-06 10:48:000.2[facility] OlcbproJUNFCJZGJS8739-20-10 10:48:000.3[facility]annCHEM YXXEX3293-71-36 10:48:002.3[facility]annCHEM FPBSF9553-05-70 10:48:003.0[facility] EjxffvjQXUOWFSLJABT7640-14-25 10:48:0010.3 [facility] QojqduyPNFNMHCYLABA7995-45-48 10:48:68558Wxzhbwhc HermannELECTROLYTES 2019-01-14 10:48:0015[facility] OlognwbHDHKHTVJQFWN0448-07-59 10:48:000.69[facility] QtmszyxADELXJHNZJIR0537-35-06 10:48:09749Ugfcpxns HdspazeBOLSENWYONSY6008-37-30 10:48:004.3[facility] BslfzhwBECSCURQPPRB5752-53-18 10:48:35730Ygarkifz [place] LTTSFIQHBSOD2781-16-99 10:48:0026[facility] YxlzutiAIHJXFLSJYUZ3452-11-59 10:48:00 8.9[facility]annCHEM CCPNG9264-21-84 10:15:002.0[facility]annCHEM PANEL 2019-01-13 10:15:003.6[facility]annCHEM EEBJC9298-92-85 10:15:84552Mnftjwza HermannCHEM VCZZF0026-12-19 10:15:009[facility]annCHEM WOYJO8035-39-99 10:15:000.71[facility]annCHEM RMRRO0923-21-69 10:15:04656Navuoqyp HermannCHEM XRUDA5125-25-76 10:15:004.2[facility]annCHEM UZXBZ8499-47-38 10:15:93231 [facility]annCHE[facility] FMSAU6449-35-86 10:15:0027[facility]annCHEM PANEL 2019-01-13 10:15:0010.2[facility]annCHEM NFMRN7642-07-69 10:15:008.9[facility]annCHEM WJFRW3594-14-77 10:15:0086[facility] UeycvejOMREPBTZHD2642-73-21 10:15:0063.6[facility] PbipezwDMKLZEJSPI3419-92-19 10:15:0019.5[facility] LUKANIBYQQ6041-55-72 10:15:0011.0[facility] DilzbaqJYDXVGDUIJ4344-17-06 10:15:00 5.2[facility] MlwdvbmUXWHBESGXZ0980-50-92 10:15:000.7[facility]annHEMATOLOGY 2019-01-13 10:15:001.4[facility] FtqaoelSRVYANZTQA0865-98-85 10:15:000.4[facility] KbpfccdACROYLTYKP6198-69-44 10:15:000.2[facility] MdrymobCWDRPCUJSL2288-79-27 10:15:000.1[facility] ApqsbrsIOAEGDSKFY3705-13-15 10:15:002.2[facility] GGLFHWMGQG0202-93-14 10:15:003.60[facility] AhovakoLQSHNJZITF8816-29-21 10:15:00 10.8[facility] KforvbdRAHUKBPMIA9573-90-68 10:15:0033.4[facility]annHEMATOLOGY 2019-01-13 10:15:0092.9[facility] RdxxzrrAZMFJMUSRD6676-50-99 10:15:00 Test Item Value Reference Range Interpretation Comments MCH (test code = MCH) 30.1 pg 27.0-31.0 [facility] BnvtmmpNYAWUWAPOT2048-29-65 10:15:0032.4[facility]annHEMATOLOGY 2019-01-13 10:15:0017.0[facility] FoxjeflMBYQEXIRTA2149-74-84 10:15:82722Pvtdiybl GsuznkaPZDJLWIVLR4823-85-01 10:15:008.0[facility]annCHEM LNTGU5206-51-51 10:15:002.0[facility]annCHEM GNFGA6444-02-57 10:15:003.6[facility]annCHEM EZXRQ1778-73-93 10:15:58670Xftsnuxw HermannCHEM STIFQ6563-19-31 10:15:009 [facility]annCHEM KYDGZ5164-04-24 10:15:000.71[facility]annCHEM PANEL 2019-01-13 10:15:87074Plxlrumw HermannCHEM KYGPW6160-89-61 10:15:004.2[facility]annCHEM LZPEF3973-95-92 10:15:38895Ouczbnfi HermannCHEM KJXQB4740-59-12 10:15:0027[facility]annCHEM GVGQU7024-23-62 10:15:0010.2[facility]annCHEM YRZAT8421-28-52 10:15:008.9[facility]annCHEM YTOKA5437-61-32 10:15:0086 [facility] DsfnwglLXTQRVVSEO0179-77-18 10:15:0063.6[facility]annHEMATOLOGY 2019-01-13 10:15:0019.5[facility] SpssbuaQEVIIMPLAT8669-28-77 10:15:0011.0[facility] QmmnimnKZFUUTUQNR5744-26-99 10:15:005.2[facility] UkyruiwCTXFEXBYTH3142-65-92 10:15:000.7[facility] MgxlgckPTPDWAKKIK0435-93-82 10:15:001.4[facility] [place] GPKIQZXVFY5426-43-95 10:15:000.4[facility] RpridxeWHZCHLKXFR2894-54-06 10:15:000.2 [facility] WwighibUWXDYWVYXC9039-01-10 10:15:000.1[facility]annHEMATOLOGY 2019-01-13 10:15:002.2[facility] CdlsyhcBGQPBICPMX0649-05-17 10:15:003.60[facility] YwtyyojHXGAQBLPKV3261-12-00 10:15:0010.8[facility] TwfxleeCUZSBGCTZE9682-17-70 10:15:0033.4[facility] VqcfhhtCZJIIVEHLC1754-59-32 10:15:0092.9[facility] [place] QCJUABWGPQ4854-56-42 10:15:00 Test Item Value Reference Range Interpretation Comments MCH (test code = MCH) 30.1 pg 27.0-31.0 [facility] CvfbqjiGXCWLPEAZY1384-90-10 10:15:0032.4[facility]annHEMATOLOGY 2019-01-13 10:15:0017.0[facility] PhxjgkbSNIVLKPUXT6698-96-50 10:15:07573Pgrewmak LlnchcjPBXPSPTMLT4532-13-35 10:15:008.0[facility]annCHEM DDROE2326-93-89 10:15:002.0[facility]annCHEM XYJTZ2897-09-45 10:15:003.6[facility]annCHEM WSRHX5448-83-75 10:15:02821Avbkmooy HermannCHEM MBVAY9960-94-68 10:15:009 [facility]annCHE[facility] TCJBN3183-12-74 10:15:000.71[facility]annCHEM PANEL 2019-01-13 10:15:47640Kjjfryoi [facility]annCHEM BHNMY2257-17-70 10:15:004.2[facility]annCHEM CCWVK8196-15-11 10:15:04023Xzgbvcjk [facility]annCHEM VNEPN8307-40-97 10:15:0027[facility]annCHEM TDTPO5555-10-20 10:15:0010.2[facility]annCHEM PZZTY5358-45-42 10:15:008.9[facility]annCHEM MJZFA6471-48-08 10:15:0086 [facility] KaqhtbcSOXTUHPEXM6578-73-51 10:15:0063.6[facility]annHEMATOLOGY 2019-01-13 10:15:0019.5[facility] KsrbyghCXCTGPDPQE3127-09-08 10:15:0011.0[facility] NxvdohtXGZWCQYLBI1342-83-87 10:15:005.2[facility] KhbgdrhEDWOEGVUAI7232-21-12 10:15:000.7[facility] IjtkmyiLPYTOSCRAU4768-99-79 10:15:001.4[facility] VLQUONQEZF6590-12-81 10:15:000.4[facility] TvapreyCRBSBWNUPV7314-53-29 10:15:000.2 [facility] XwksiglKHLONKBYMG4216-36-93 10:15:000.1[facility]annHEMATOLOGY 2019-01-13 10:15:002.2[facility] NvwqsbkLYWFQIMCXT7915-18-02 10:15:003.60[facility] FpalzhlZPGDYHVJPV5238-03-09 10:15:0010.8[facility] DysegpeIDNOZBGIWL9993-06-37 10:15:0033.4[facility] IdebgbkRYGGPPIMBO2460-13-18 10:15:0092.9[facility] PRBWYUOAKL9972-85-13 10:15:00 Test Item Value Reference Range Interpretation Comments MCH (test code = MCH) 30.1 pg 27.0-31.0 [facility] EosndgpCBYSWNYMMN8043-93-52 10:15:0032.4[facility]annHEMATOLOGY 2019-01-13 10:15:0017.0[facility] SdygoluOTAGNEBKSL5474-80-70 10:15:48438Outslbpp RuhaoyvPGZNQQZLSO7112-00-09 10:15:008.0[facility]annCHEM FNSYH3668-77-01 10:43:06845Cdxwllzz HermannCHEM SQTTV5028-30-50 10:43:007[facility]annCHEM FKNQJ2688-59-17 10:43:000.69[facility]annCHEM VUMFM3258-28-49 10:43:39791 [facility]annCHE[facility] JRMCY6269-96-38 10:43:004.3[facility]annCHEM PANEL 2019-01-12 10:43:75394Irdvzlnm HermannCHEM JKLGG8053-50-01 10:43:0026[facility]annCHEM FQAJV4633-80-01 10:43:008.5[facility]annCHEM TYOVB9131-00-42 10:43:0087[facility]annCHEM ISBKC3610-45-91 10:43:0011.3[facility]annCHEM DZMYK3268-89-90 10:43:001.9[facility]annCHEM VGHXL2821-60-76 10:43:002.8 [facility] YmqjynqXYTKDLBXXY3119-30-73 10:43:003.7[facility]annHEMATOLOGY 2019-01-12 10:43:003.68[facility] ZezdnhtLEQHLPNQMT5783-83-91 10:43:0011.0[facility] UccduciULKYGUTTYO1191-95-13 10:43:0033.9[facility] OoioehkNPLMHBRVVC8493-87-21 10:43:0092.1[facility] KtujrepYVDZHDKCJJ7170-53-11 10:43:00 Test Item Value Reference Range Interpretation Comments MCH (test code = MCH) 30.0 pg 27.0-31.0 [facility] IgswwyhTQDRQPNRLR2800-60-22 10:43:0032.6[facility]annHEMATOLOGY 2019-01-12 10:43:0016.7[facility] NceclypALGDMRQMSC6613-25-70 10:43:34657Wrkhgjrw ZtdghldMEGKSYMAFA0621-85-39 10:43:008.2[facility] YvrkqcsPNLRMMAXRV7822-11-66 10:43:0076.8[facility] EysdseiROSJFALRAR1437-89-20 10:43:009.9[facility] [place] WOQJPMUTPW4228-25-40 10:43:0011.8[facility] HwuehypHUMBNQJJIZ3928-76-32 10:43:00 1.2[facility] BsxckmgOYFXTDQQZI5198-78-03 10:43:000.3[facility]annHEMATOLOGY 2019-01-12 10:43:002.8[facility] FlfhxpxQJKOTMMAGW0040-66-49 10:43:000.4[facility] XcftlkzOMVJIPPLKU0996-82-74 10:43:000.4[facility] HermannCHEM QJXBT0718-79-84 10:43:97616Tpakabpj [facility]annCHEM QQCOG3094-89-70 10:43:007[facility]annCHEM GMHVD7198-96-53 10:43:000.69[facility] HermannCHEM GODSN3369-03-65 10:43:50618 [facility]annCHEM MUUMU9707-96-81 10:43:004.3[facility]annCHEM PANEL 2019-01-12 10:43:71971Hxefjmnz [facility]annCHEM FPIOE0460-81-48 10:43:0026[facility]annCHEM KFRGG7325-04-51 10:43:008.5[facility]annCHEM XTKKA8740-82-90 10:43:0087[facility]annCHEM NWRUH0017-75-32 10:43:0011.3[facility]annCHEM VHRQQ6523-78-78 10:43:001.9[facility]annCHEM BRFIM8562-59-91 10:43:002.8 [facility] LyzepopFSTYGZCEBD6824-90-41 10:43:003.7[facility]annHEMATOLOGY 2019-01-12 10:43:003.68[facility] IzsvrqqGKNPAFBHLE0725-71-99 10:43:0011.0[facility] LyuhfxwKFYDGRFYGR8355-02-28 10:43:0033.9[facility] FafhjgmRIKAIIDBBM0798-07-57 10:43:0092.1[facility] ZxwxifnFDFWCQWABG5900-70-16 10:43:00 Test Item Value Reference Range Interpretation Comments MCH (test code = MCH) 30.0 pg 27.0-31.0 [facility] BmcttohVHJEDYFIJD1247-95-50 10:43:0032.6[facility]annHEMATOLOGY 2019-01-12 10:43:0016.7[facility] NqpidjhZDUSKBZYPY2364-23-94 10:43:72991Nkbjdbtg LhwfsoaOPWRBVWSFR1493-64-16 10:43:008.2[facility] BbotfvxMEVAIRKANJ2081-13-66 10:43:0076.8[facility] YamcaqeRNIXIUFSJO3098-26-76 10:43:009.9[facility] RBTXTMWGGQ1009-29-11 10:43:0011.8[facility] CzgrvciQXPNNNYXLF7677-17-53 10:43:00 1.2[facility] HpopeosOLUNJWKQFJ7074-83-36 10:43:000.3[facility]annHEMATOLOGY 2019-01-12 10:43:002.8[facility] KkdhxlqRAZYLVRDEH3738-60-75 10:43:000.4[facility] TojkgkfLQEOOLSBMX0116-01-46 10:43:000.4[facility] HermannCHEM DYYFZ7042-55-12 10:43:19473Qxauqpfp HermannCHEM OIWSN9562-96-04 10:43:007[facility] HermannCHEM QCQFA2203-61-35 10:43:000.69[facility]annCHEM CKSQX3908-34-11 10:43:05610 [facility]annCHEM AJOLT5511-66-02 10:43:004.3[facility]annCHEM PANEL 2019-01-12 10:43:27802Voeykhnd HermannCHEM MHNNS3270-32-66 10:43:0026[facility]annCHEM OCWMW1437-84-56 10:43:008.5[facility]annCHEM XSQKP3638-74-33 10:43:0087[facility]annCHEM BTUZK6442-49-37 10:43:0011.3[facility]annCHEM CCZEA3559-72-28 10:43:001.9[facility]annCHEM UVREV8652-85-15 10:43:002.8 [facility] HdazafkQEAFONMEBS3313-82-99 10:43:003.7[facility]annHEMATOLOGY 2019-01-12 10:43:003.68[facility] FoohjzqGZEDYIWBAT3951-10-98 10:43:0011.0[facility] EtyvkqvSPPHUODLRY0774-51-73 10:43:0033.9[facility] XoysdyyQMRPXBQNKO6707-56-53 10:43:0092.1[facility] GpgcdvkQWCJZEWSMH0806-39-55 10:43:00 Test Item Value Reference Range Interpretation Comments MCH (test code = MCH) 30.0 pg 27.0-31.0 [facility] WdztcbtPXDPOIUNTU0625-45-60 10:43:0032.6[facility]annHEMATOLOGY 2019-01-12 10:43:0016.7[facility] JdjcdsbYVFVWDNPMD6733-13-26 10:43:37375Agvorrvb VmkxqykUGTUSMNXUS0064-67-38 10:43:008.2[facility] GgppamqQVCMSSGDAM7538-85-01 10:43:0076.8[facility] PgpomsxDZVYCAZHZL4182-41-76 10:43:009.9[facility] MWLRIXWGVS8377-56-00 10:43:0011.8[facility] GkqvoswYODNPTRCSD9511-64-64 10:43:00 1.2[facility] RckieazGUOAGWBWOG2298-08-53 10:43:000.3[facility]annHEMATOLOGY 2019-01-12 10:43:002.8[facility] LrlqieiZGNHFSMQPE8107-33-15 10:43:000.4[facility] KwqzrpvCRMMWNMIQX9688-99-48 10:43:000.4[facility]annBACTERIAL - SEROLOGY 2019-01-10 09:33:00Urine *NA*(01/10/19 3:33 AM)[facility]annBACTERIAL - FORAYIJO6652-38-50 09:33:00Negative (01/10/19 3:33 AM)[facility] XDBVI0809-44-61 09:33:00Yellow *NA*(01/10/19 3:33 AM)[facility] CEMDJ5875-71-15 09:33:00Clear (01/10/19 3:33 AM)[facility] STOOL 2019-01-10 09:33:00 Test Item Value Reference Range Interpretation Comments UA Spec Grav (test code = UA Spec 1.014 1 Grav) [facility] BQJJJ5344-72-22 09:33:00 Test Item Value Reference Range Interpretation Comments UA pH (test code = UA pH) 5.0 1 5.0-8.0 [facility] EAEFX4955-29-66 09:33:00Negative (01/10/19 3:33 AM) [facility] DKZMX2107-23-37 09:33:00Negative *NA*(01/10/19 3:33 AM)[facility] TMPPR6551-95-34 09:33:00Trace *ABN*(01/10/19 3:33 AM)[facility] INDFK1383-85-65 09:33:00Negative *NA*(01/10/19 3:33 AM)[facility] MLJCO0982-63-11 09:33:00Negative (01/10/19 3:33 AM) [facility] AHFZA9428-19-24 09:33:00Negative (01/10/19 3:33 AM) [facility] WQEIC8826-64-87 09:33:00Negative (01/10/19 3:33 AM) [facility] SNCFZ9743-86-02 09:33:00None Seen (01/10/19 3:33 AM) [facility] MIHUS6642-18-92 09:33:00<1[facility] CBWKR2363-54-46 09:33:00<1[facility]annBACTERIAL - UWYXQKFR4073-92-40 09:33:00Urine *NA*(01/10/19 3:33 AM)[facility]annBACTERIAL - SEROLOGY 2019-01-10 09:33:00Negative (01/10/19 3:33 AM)[facility] STOOL 2019-01-10 09:33:00Yellow *NA*(01/10/19 3:33 AM)[facility] STOOL 2019-01-10 09:33:00Clear (01/10/19 3:33 AM)[facility] STOOL 2019-01-10 09:33:00 Test Item Value Reference Range Interpretation Comments UA Spec Grav (test code = UA Spec 1.014 1 Grav) [facility] WPNBR1497-84-73 09:33:00 Test Item Value Reference Range Interpretation Comments UA pH (test code = UA pH) 5.0 1 5.0-8.0 [facility] FEDOQ9574-39-68 09:33:00Negative (01/10/19 3:33 AM) [facility] ECWXI6290-29-35 09:33:00Negative *NA*(01/10/19 3:33 AM)[facility] LDCVD3834-84-06 09:33:00Trace *ABN*(01/10/19 3:33 AM)[facility] RAANH4190-94-26 09:33:00Negative *NA*(01/10/19 3:33 AM)[facility] FFKZK4280-35-03 09:33:00Negative (01/10/19 3:33 AM) [facility] ZWYBZ6869-26-32 09:33:00Negative (01/10/19 3:33 AM) [facility] IOZGJ2273-53-88 09:33:00Negative (01/10/19 3:33 AM) [facility] GMRDL7569-82-52 09:33:00None Seen (01/10/19 3:33 AM) [facility] IQAHH2309-27-40 09:33:00<1[facility] FBOCV1216-82-92 09:33:00<1[facility]annBACTERIAL - WYCLEAJN7143-16-03 09:33:00Urine *NA*(01/10/19 3:33 AM)[facility]annBACTERIAL - SEROLOGY 2019-01-10 09:33:00Negative (01/10/19 3:33 AM)[facility] STOOL 2019-01-10 09:33:00Yellow *NA*(01/10/19 3:33 AM)[facility] STOOL 2019-01-10 09:33:00Clear (01/10/19 3:33 AM)[facility] STOOL 2019-01-10 09:33:00 Test Item Value Reference Range Interpretation Comments UA Spec Grav (test code = UA Spec 1.014 1 Grav) [facility] SSFBT6902-15-35 09:33:00 Test Item Value Reference Range Interpretation Comments UA pH (test code = UA pH) 5.0 1 5.0-8.0 [facility] NSKJI8087-02-92 09:33:00Negative (01/10/19 3:33 AM) [facility] HRKPK4371-27-63 09:33:00Negative *NA*(01/10/19 3:33 AM)[facility] KCRAL7539-78-21 09:33:00Trace *ABN*(01/10/19 3:33 AM)[facility] TLKAI1176-29-37 09:33:00Negative *NA*(01/10/19 3:33 AM)[facility] OVIPJ3413-12-74 09:33:00Negative (01/10/19 3:33 AM) [facility] BQJEM1419-19-28 09:33:00Negative (01/10/19 3:33 AM) [facility] JWLLR3833-13-56 09:33:00Negative (01/10/19 3:33 AM) [facility] IITKG8156-07-03 09:33:00None Seen (01/10/19 3:33 AM) [facility] ZRALD8378-20-78 09:33:00<1[facility] HermannURINE AND [id number] 09:33:00<1[facility]annVIRAL - [id number] 07:15:00 Negative (01/10/19 1:15 AM)[facility] - [id number] 07:15:00 Negative (01/10/19 1:15 AM)[facility] - [id number] 07:15:00 Negative (01/10/19 1:15 AM)[facility] - [id number] 07:15:00 Negative (01/10/19 1:15 AM)[facility] - [id number] 07:15:00 Negative (01/10/19 1:15 AM)[facility] - [id number] 07:15:00 Negative (01/10/19 1:15 AM)[facility] HermannCARDIAC [id number] 05:21:00 0.09[facility] HermannCHEM [id number] 05:21:007.1[facility] HermannCHEM PANEL 2019-01-10 05:21:003.1[facility] HermannCHEM [id number] 05:21:0027[facility]annCHEM [id number] 05:21:0027[facility]annCHEM [id number] 05:21:97634Bhwbufzr HermannCHEM [id number] 05:21:000.5[facility]annCHEM [id number] 05:21:00 Test Item Value Reference Range Interpretation Comments B/C Ratio (test code = B/C Ratio) 17 1 6-25 [facility]CHE[facility] [id number] 05:21:004.0[facility]annCHEM PANEL 2019-01-10 05:21:00 Test Item Value Reference Range Interpretation Comments A/G Ratio (test code = A/G Ratio) 0.8 1 0.7-1.6 [facility]CHE[facility] [id number] 05:21:000.9[facility]annHEMATOLOGY 2019-01-10 05:21:00 Test Item Value Reference Range Interpretation Comments INR (test code = INR) 1.08 1 0.85-1.17 [facility] [id number] 05:21:00 Test Item Value Reference Range Interpretation Comments PT (test code = PT) 13.8 s 12.0-14.7 [facility] [id number] 05:21:00 Test Item Value Reference Range Interpretation Comments PTT (test code = PTT) 23.3 s 22.9-35.8 [facility] [id number] 05:21:000.2[facility] HermannCARDIAC ENZYMES 2019-01-10 05:21:000.09[facility]annCHEM [id number] 05:21:007.1[facility]annCHEM [id number] 05:21:003.1[facility]annCHEM [id number] 05:21:0027[facility] HermannCHEM [id number] 05:21:0027[facility]annCHEM [id number] 05:21:34695Chxhalnn HermannCHEM [id number] 05:21:000.5 [facility] HermannCHEM [id number] 05:21:00 Test Item Value Reference Range Interpretation Comments B/C Ratio (test code = B/C Ratio) 17 1 6-25 [facility] [id number] 05:21:004.0[facility]annCHEM PANEL 2019-01-10 05:21:00 Test Item Value Reference Range Interpretation Comments A/G Ratio (test code = A/G Ratio) 0.8 1 0.7-1.6 [facility]annCHE[facility] [id number] 05:21:000.9[facility]annHEMATOLOGY 2019-01-10 05:21:00 Test Item Value Reference Range Interpretation Comments INR (test code = INR) 1.08 1 0.85-1.17 [facility] H[id number] 05:21:00 Test Item Value Reference Range Interpretation Comments PT (test code = PT) 13.8 s 12.0-14.7 [facility] [id number] 05:21:00 Test Item Value Reference Range Interpretation Comments PTT (test code = PTT) 23.3 s 22.9-35.8 [facility] HospitalDaktcgxEZUTJIUEEB8616-03-31 05:21:000.2[facility] HermannCARDIAC ENZYMES 2019-01-10 05:21:000.09[facility] HermannCHEM [id number] 05:21:007.1[facility] HermannCHEM [id number] 05:21:003.1[facility] HermannCHEM [id number] 05:21:0027[facility] HermannCHEM [id number] 05:21:0027[facility] HermannCHEM [id number] 05:21:58624[facility]CHE[facility] [id number] 05:21:000.5 [facility]annCHE[facility] [id number] 05:21:00 Test Item Value Reference Range Interpretation Comments B/C Ratio (test code = B/C Ratio) 17 1 6-25 [facility]annCHE[facility] [id number] 05:21:004.0[facility] HermannCHEM PANEL 2019-01-10 05:21:00 Test Item Value Reference Range Interpretation Comments A/G Ratio (test code = A/G Ratio) 0.8 1 0.7-1.6 [facility]annNOV[facility] HE[facility] BALLANTY[facility] MED[facility] [id number] 05:21:000.9[facility]annHE[facility] 2019-01-10 05:21:00 Test Item Value Reference Range Interpretation Comments INR (test code = INR) 1.08 1 0.85-1.17 [facility]VvdpzqoAMMUWCOYHL0319-24-26 05:21:00 Test Item Value Reference Range Interpretation Comments PT (test code = PT) 13.8 s 12.0-14.7 [id number] 05:21:00 Test Item Value Reference Range Interpretation Comments PTT (test code = PTT) 23.3 s 22.9-35.8 [id number] 05:21:000.2[facility]
[2021-02-02 11:35] LABS: Absolute Lymphocytes (CBC) 0.8 K/uL (0.7-4.9); Hematocrit 36.6 % (39.6-49.0); Lymphocytes % 22.6 % (15.3-44.8); MPV 8.5 fL (7.6-11.3); RBC Red Blood Cell Count 4.07 M/uL (4.33-5.43)
[2021-02-02 11:37] LABS: Protime INR 1.94
[2021-02-02 11:56] LABS: Albumin 3.2 g/dL (3.4-5.0); Bilirubin Direct 0.2 mg/dL (0-0.2); Bilirubin Total 0.5 mg/dL (0.2-1.0); Potassium 4.2 mmol/L (3.5-5.1); Protein, Total 7.2 g/dL (6.4-8.2)
[2021-02-02] MEDS ORDERED: FENTANYL CITR 100 MCG/2 ML ONE (12:06)
--- NOTE | 2021-02-02 13:57 | RAD REPORT ---
EXAM DESCRIPTION: CTAbdomen Pelvis W Contrast - 02/02/2021 1:45 pm CLINICAL HISTORY: ABD PAIN COMPARISON: Abdomen Pelvis W Contrast dated 08/09/2017; Abdomen Pelvis W Contrast dated 01/01/2017 ; CT ABD PELVIS W CONTRAST dated 09/22/2013; Upper Lower Extrem Art Multi dated 01/17/2021 TECHNIQUE: CT of the abdomen and pelvis was performed. All CT scans are performed using dose optimization technique as appropriate and may include automated exposure control or mA/KV adjustment according to patient size. FINDINGS: Lower chest: Small left pleural effusion. Multi-vessel coronary artery disease. Aortic daisha ve calcifications. Liver: No acute abnormality or suspicious lesions. Biliary: No biliary ductal dilatation. Stomach: There is a mass along the cardia of the stomach measuring 3.6 cm . Duodenum: No significant focal abnormality. Pancreas: There is ill-defined soft tissue near the tail the pancreas. Spleen: Splenic mass measuring 4.9 cm which is new. Adrenal: No suspicious lesions. Kidney/ureter: No hydronephrosis. No renal calculi. Retroperitoneum: 2.4 cm enlarged retroperitoneal lymph node. Vascular: No aneurysm. Bowel: No significant focal abnormality. Peritoneum: Soft tissues/adenopathy at the celiac trunk nodes measuring up to 3.8 cm. Bladder: Grossly unremarkable. Reproductive: No adnexal masses. Bones: No acute fracture. Severe degenerative changes are present in the left hip. Intramedullary franky in the right femur. Multilevel degenerative changes are present in the spine. Other: n/a IMPRESSION: Metastatic disease. Favored gastric primary with lymphadenopathy to the celiac axis lymp h nodes and retroperitoneal lymph nodes. New splenic mass also present concerning for metastatic dise ase. Small left pleural effusion which may be reactive or malignant. The large left retroperitoneal lymph node would likely be the easiest site for sampling to do both co nfirm metastatic disease and establish the primary organ.
--- NOTE | 2021-02-02 14:15 | ER ---
Nurse's Notes [facility] Name: Isiah Gaytan Age: 85 yrs Sex: Male : 1935 Arrival Date: 02/02/2021 Time: 09:40 Bed 13 Private MD: Ronn Wilson Diagnosis: Abdominal mass;Dehydration Presentation: 02/02 10:06 Chief complaint: Patient states: bleeding in mouth. Pt on elequis and had a sore spot jh5 in his mouth this morning so he took a qtip and scrapped a scab off and it began to bleed "like crazy". bleeding is controlled at this time. Coronavirus screen: Vaccine status: Patient reports being unvaccinated. Client denies travel out of the [place] in the last 14 days. Ebola Screen: Patient negative for fever greater than or equal to 101.5 degrees Fahrenheit, and additional compatible Ebola Virus Disease symptoms Patient denies exposure to infectious person. Patient denies travel to an Ebola-affected area in the 21 days before illness onset. No symptoms or risks identified at this time. Initial Sepsis Screen: Does the patient meet any 2 criteria? No. Patient's initial sepsis screen is negative. Does the patient have a suspected source of infection? No. Patient's initial sepsis screen is negative. Risk Assessment: Do you want to hurt yourself or someone else? Patient reports no desire to harm self or others. Onset of symptoms was February 02, 2021. 10:06 Method Of Arrival: Ambulatory [facility] 10:06 Acuity: MARIOLA 3 5 Triage Assessment: 10:11 General: Appears in no apparent distress. Behavior is calm, cooperative, appropriate [facility] for age. Pain: Denies pain. Historical: - Allergies: 10:09 Azithromycin; 5 10:09 Codeine; 5 10:09 Keflex; [facility] - Home Meds: 10:09 aspirin 81 mg Oral chew 1 tab once daily [Active]; atorvastatin Oral [Active]; 5 carbidopa-levodopa 25-100 mg Oral tab [Active]; Eliquis Oral [Active]; Eliquis 5 mg Oral tab 1 tab 2 times per day [Active]; furosemide 20 mg Oral tab 1 tab 2 times per day [Active]; sotalol 40 mg Oral tab 1 tab 2 times per day [Active]; Tramadol Oral [Active]; - PMHx: 10:09 Atrial fibrillation; CHF; High Cholesterol; Hypertension; Myocardial infarction; [facility] - PSHx: 10:09 cardiac stents; [facility] - Immunization history:: Adult Immunizations up to date. - Social history:: Smoking status: Patient/guardian denies using tobacco, the patient reports quitting approximately 60 years ago. Screenin:39 Abuse screen: Denies threats or abuse. Nutritional screening: No deficits noted. al4 Tuberculosis screening: No symptoms or risk factors identified. Fall Risk No fall in past 12 months (0 pts). IV access (20 points). Ambulatory Aid- None/Bed Rest/Nurse Assist (0 pts). Gait- Normal/Bed Rest/Wheelchair (0 pts) Mental Status- Oriented to own ability (0 pts). Total Griffin Fall Scale indicates No Risk (0-24 pts). Assessment: 11:32 General: Appears in no apparent distress. comfortable, Behavior is calm, cooperative, al4 appropriate for age, Reports fatigue for >3 days. Pain: Complains of pain in back Pain currently is 8 out of 10 on a pain scale. Neuro: Level of Consciousness is awake, alert, obeys commands, Oriented to person, place, time, situation. Cardiovascular: Heart tones present Capillary refill < 3 seconds Patient's skin is warm and dry. Respiratory: Airway is patent Respiratory effort is even, unlabored, Respiratory pattern is regular, symmetrical. GI: No signs and/or symptoms were reported involving the gastrointestinal system. : No signs and/or symptoms were reported regarding the genitourinary system. EENT: Oral mucosa is moist. dry blood from "popped blood blister inside mouth" per patient statement. Derm: No signs and/or symptoms reported regarding the dermatologic system. Musculoskeletal: No signs and/or symptoms reported regarding the musculoskeletal system. 12:24 Reassessment: No changes from previously documented assessment. Patient is alert, al4 oriented x 3, equal unlabored respirations, skin warm/dry/pink. 13:58 Reassessment: pt arrived back from CT. al4 13:59 Reassessment: No changes from previously documented assessment. Patient is alert, al4 oriented x 3, equal unlabored respirations, skin warm/dry/pink. 14:48 Reassessment: No changes from previously documented assessment. Patient is alert, al4 oriented x 3, equal unlabored respirations, skin warm/dry/pink. Vital Signs: 10:06 BP 128 / 48; Pulse 52; Resp 16; Temp 97.1; Pulse Ox 100% ; Weight 63.96 kg; Height 5 [facility] ft. 9 in. (175.26 cm); 11:00 BP 133 / 65; Pulse 56; Resp 15 S; Temp 98.1(O); Pulse Ox 100% ; Pain 8/10; al4 12:25 BP 158 / 79; Pulse 60; Resp 16 S; Pulse Ox 99% on R/A; al4 13:00 BP 132 / 60; Pulse 55; Resp 16 S; Pulse Ox 98% on R/A; al4 13:57 BP 129 / 65; Pulse 62; Resp 18 S; Pulse Ox 99% on R/A; al4 14:30 BP 147 / 77; Pulse 64; Resp 18 S; Pulse Ox 100% on R/A; al4 10:06 Body Mass Index 20.82 (63.96 kg, 175.26 cm) [facility] ED Course: 09:40 Patient arrived in ED. ds1 09:40 Ronn Wilson MD is Private Physician. ds1 10:09 Triage completed. [facility] 10:44 Kamryn Mathias FNP-C [facility]. kb 10:44 Armida Cordero MD is Attending Physician. kb 10:53 Fercho Almanzar is Primary Nurse. al4 11:25 Missed attempt(s): 22 gauge in right antecubital area. Bleeding controlled, band aid jd3 applied, catheter tip intact. 11:31 Arm band placed on. jd3 11:31 Inserted saline lock: 22 gauge in left antecubital area, using aseptic technique. Blood jd3 collected. 11:48 Bed in low position. Call light in reach. Side rails up X2. Adult w/ patient. Pulse ox al4 on. NIBP on. Door closed. Noise minimized. Warm blanket given. Head of bed elevated. 13:45 CT Abd/Pelvis - IV Contrast Only In Process Unspecified. EDMS 14:14 Ronn Wilson MD is Hospitalizing Provider. kb 14:59 No provider procedures requiring assistance completed. Patient admitted, IV remains in jd3 place. Administered Medications: 12:20 Drug: fentaNYL (PF) 25 mcg Route: IVP; Site: left antecubital; al4 13:17 Follow up: Response: No adverse reaction; RASS: Alert and Calm (0) al4 Outcome: 14:14 Decision to Hospitalize by Provider. kb 14:59 Admitted to Med/surg accompanied by tech, via wheelchair, room 406, Report called to ruthy Michel RN 14:59 Condition: stable 14:59 Instructed on the need for admit. 15:19 Patient left the ED. al4 Signatures: Dispatcher [employer] EDMS Kamryn Mathias, WELFARE SUPERVISOR-C WELFARE SUPERVISOR-Ckb Lauren Gonzales ds1 Cristiano Slater RN RN Mehnaz Lala RN RN jh5 Fercho Almanzar al4 Corrections: (The following items were deleted from the chart) 13:11 12:37 CORONAVIRUS+ drawn and sent. al4 EDMT 14:33 13:59 Reassessment: pt arrived back from CT al4 al4 14:33 13:59 Reassessment: pt arrived back from CT al4 al4
--- NOTE | 2021-02-02 14:15 | EDPHYS ---
Physician Documentation [facility] Name: Isiah Gaytan Age: 85 yrs Sex: Male : 1935 Arrival Date: 02/02/2021 Time: 09:40 Bed 13 Private MD: Ronn Wilson ED Physician Armida Cordero HPI: 02/02 14:59 This 85 yrs old Male presents to ER via Ambulatory with complaints of Mouth Problem. kb 14:59 The patient presents with bleeding wound. The problem is located in the mouth-inner kb right cheek. Onset: The symptoms/episode began/occurred today. Duration: The symptoms are continuous. Modifying factors: The symptoms are alleviated by nothing, the symptoms are aggravated by nothing. Associated signs and symptoms: Pertinent positives: nausea, Pertinent negatives: anorexia, chills, dysphagia, fever, inability to eat, pain, redness in area, swelling, vomiting. Severity of symptoms: At their worst the symptoms were moderate, in the emergency department the symptoms are unchanged. The patient has not experienced similar symptoms in the past. The patient has not recently seen a physician. Pt states he has a sore to inner cheek that started bleeding and he couldn't get it to stop. Spoke with Dr Wilson and was told to come to the ER. Pt reports he is supposed to have a scan today ordered by Dr Wilson for nausea that has been ongoing for a while. Dr Wilson called ahead of pt's arrival, wants labs, CT and admission. Historical: - Allergies: 10:09 Azithromycin; [facility] 10:09 Codeine; [facility] 10:09 Keflex; [facility] - Home Meds: 10:09 aspirin 81 mg Oral chew 1 tab once daily [Active]; atorvastatin Oral [Active]; 5 carbidopa-levodopa 25-100 mg Oral tab [Active]; Eliquis Oral [Active]; Eliquis 5 mg Oral tab 1 tab 2 times per day [Active]; furosemide 20 mg Oral tab 1 tab 2 times per day [Active]; sotalol 40 mg Oral tab 1 tab 2 times per day [Active]; Tramadol Oral [Active]; - PMHx: 10:09 Atrial fibrillation; CHF; High Cholesterol; Hypertension; Myocardial infarction; 5 - PSHx: 10:09 cardiac stents; [facility] - Immunization history:: Adult Immunizations up to date. - Social history:: Smoking status: Patient/guardian denies using tobacco, the patient reports quitting approximately 60 years ago. ROS: 14:59 Constitutional: Negative for fever, chills, and weight loss. kb 14:59 ENT: Positive for bleeding wound inside mouth. 14:59 Abdomen/GI: Positive for nausea, Negative for abdominal pain. 14:59 All other systems are negative. Exam: 14:57 Constitutional: This is a well developed, well nourished patient who is awake, alert, kb and in no acute distress. Head/Face: Normocephalic, atraumatic. Cardiovascular: Regular rate and rhythm with a normal S1 and S2. No gallops, murmurs, or rubs. No pulse deficits. Respiratory: Respirations even and unlabored. No increased work of breathing. Talking in full sentences Abdomen/GI: Soft, non-tender. No distention Skin: Warm, dry with normal turgor. Normal color. MS/ Extremity: Pulses equal, no cyanosis. Neurovascular intact. Full, normal range of motion. Neuro: Awake and alert, GCS 15, oriented to person, place, time, and situation. Moves all extremities. Normal gait. Psych: Awake, alert, with orientation to person, place and time. Behavior, mood, and affect are within normal limits. 14:57 ENT: Mouth: wound to right inner cheek - bleeding controlled. Vital Signs: 10:06 BP 128 / 48; Pulse 52; Resp 16; Temp 97.1; Pulse Ox 100% ; Weight 63.96 kg; Height 5 jh5 ft. 9 in. (175.26 cm); 11:00 BP 133 / 65; Pulse 56; Resp 15 S; Temp 98.1(O); Pulse Ox 100% ; Pain 8/10; al4 12:25 BP 158 / 79; Pulse 60; Resp 16 S; Pulse Ox 99% on R/A; al4 13:00 BP 132 / 60; Pulse 55; Resp 16 S; Pulse Ox 98% on R/A; al4 13:57 BP 129 / 65; Pulse 62; Resp 18 S; Pulse Ox 99% on R/A; al4 14:30 BP 147 / 77; Pulse 64; Resp 18 S; Pulse Ox 100% on R/A; al4 10:06 Body Mass Index 20.82 (63.96 kg, 175.26 cm) jh5 MDM: 10:44 Patient medically screened. kb 14:09 Physician consultation: Ronn Wilson MD was called at 14:10, regarding admission, kb patient's condition, message left. 14:13 Data reviewed: vital signs, nurses notes. Data interpreted: Pulse oximetry: on room air kb is 99 %. Interpretation: normal. Counseling: I had a detailed discussion with the patient and/or guardian regarding: the historical points, exam findings, and any diagnostic results supporting the discharge/admit diagnosis, lab results, radiology results, the need for further work-up and treatment in the hospital. Physician consultation: Ronn Wilson MD was contacted at 14:13, regarding admission, patient's condition, and will see patient in inpatient room. 02/02 10:48 Order name: Basic Metabolic Panel; Complete Time: 12:16 kb 02/02 10:48 Order name: CBC with Diff; Complete Time: 11:50 kb 02/02 10:48 Order name: Hepatic Function; Complete Time: 12:16 kb 02/02 10:48 Order name: Lipase; Complete Time: 12:16 kb 02/02 10:48 Order name: Protime (+inr); Complete Time: 11:49 kb 02/02 10:48 Order name: Ptt, Activated; Complete Time: 11:49 kb 02/02 10:48 Order name: IV Saline Lock; Complete Time: 11:31 kb 02/02 10:48 Order name: Labs collected and sent; Complete Time: 11:27 kb 02/02 10:48 Order name: CT Abd/Pelvis - IV Contrast Only; Complete Time: 14:04 kb 02/02 13:11 Order name: SARS-COV-2 RT PCR; Complete Time: 14:04 EDMS Administered Medications: 12:20 Drug: fentaNYL (PF) 25 mcg Route: IVP; Site: left antecubital; al4 13:17 Follow up: Response: No adverse reaction; RASS: Alert and Calm (0) al4 Disposition: 22:32 Co-signature as Attending Physician, Armida Cordero MD PA/CREDIT REVIEW OFFICER's history reviewed, patient sp3 interviewed, and examined. Disposition Summary: 02/02/21 14:14 Hospitalization Ordered Hospitalization Status: Inpatient Admission Provider: Katie, Ronn kb Location: Telemetry/MedSurg (Inpatient) kb Condition: Stable kb Problem: new kb Symptoms: are unchanged kb Bed/Room Type: Standard kb Room Assignment: 406(02/02/21 14:43) bd Diagnosis - Abdominal mass kb - Dehydration kb Discharge Instructions: - Discharge Summary Sheet jd3 Forms: - Medication Reconciliation Form kb - SBAR form jd3 Signatures: Dispatcher [employer] EDMD Kamryn Mathias FNP-C DISTRICT CAPTAIN-Dayana Patricia Setul, MD MD sp3 Mehnaz Chaudhari RN RN jh5 Fercho Almanzar4 Corrections: (The following items were deleted from the chart) 13:11 12:30 CORONAVIRUS+MR.LAB.BRZ ordered. EDMD EDMS 14:43 14:14 kb bd
[2021-02-02 15:44] VITALS: BMI 20.8
[2021-02-02] MEDS ORDERED: ONDANSETRON 4 MG/2 ML VIAL IV PRN (15:44)
[2021-02-02] MEDS: NA CHLORIDE 0.9% 1,000 ML IV SCH (16:07)
[2021-02-02] MEDS: SOTALOL HCL 80 MG TAB PO SCH (17:14)
[2021-02-02] MEDS ORDERED: FLEET ENEMA ADULT PR ONE (20:00)
[2021-02-03] MEDS: TRAMADOL HCL 50 MG TAB PO PRN ×3 (01:01→17:06)
[2021-02-03 03:48] LABS: Hematocrit 32.5 % (39.6-49.0); Lymphocytes % 23.9 % (15.3-44.8); MPV 8.5 fL (7.6-11.3); RBC Red Blood Cell Count 3.61 M/uL (4.33-5.43)
[2021-02-03 03:49] LABS: Absolute Lymphocytes (CBC) 0.9 K/uL (0.7-4.9)
[2021-02-03 04:30] LABS: Magnesium 2.4 mg/dL (1.8-2.4); Potassium 4.6 mmol/L (3.5-5.1)
[2021-02-03] MEDS ORDERED: FLEET ENEMA ADULT PR ONE (05:00)
[2021-02-03] MEDS: NA CHLORIDE 0.9% 1,000 ML IV SCH ×3 (05:15→17:23)
[2021-02-03] MEDS: SOTALOL HCL 80 MG TAB PO SCH ×2 (05:16→17:07)
--- NOTE | 2021-02-03 12:33 | RAD REPORT ---
EXAM DESCRIPTION: RAD - Abdomen W Erect - 02/03/2021 12:25 pm CLINICAL HISTORY: Severe Constipation COMPARISON: Abdomen W Erect dated 01/21/2019; Abdomen Pelvis W Contrast dated 02/02/2021 FINDINGS: Nonobstructive bowel gas pattern. Contrast seen within the colon. Bladder trabeculations w ith contrast. Intramedullary franky and cephalomedullary screw in the right hip. Advanced left hip degen erative changes. Low colonic stool burden. IMPRESSION: Nonobstructive bowel gas pattern. Low colonic stool burden making constipation very unli derrick.
--- NOTE | 2021-02-03 19:05 | PN ---
Date of Progress Note: 02/03/2021 The patient basically status quo, could not be scheduled for his lymph node biopsy today. He is resc heduled for tomorrow at 1 o'clock. Still feels like he was constipated, but his KUB showed otherwise . Still a minimal intake as far his eating, also complained today of some slight left upper quadrant pain, possibly from the splenic lesion. HR/MODL Voice ID: [id number] Report ID: [id number]
[2021-02-03] MEDS: ACETAMINOPHEN 500 MG TAB PO PRN ×3 (19:38→22:24)
[2021-02-04] MEDS: ACETAMINOPHEN 500 MG TAB PO PRN ×3 (04:17→22:10)
[2021-02-04] MEDS: NA CHLORIDE 0.9% 1,000 ML IV SCH ×2 (04:19→20:43)
[2021-02-04] MEDS: SOTALOL HCL 80 MG TAB PO SCH ×2 (05:58→17:34)
[2021-02-04 07:54] VITALS: O2SAT 97
[2021-02-04] MEDS ORDERED: MIDAZOLAM HCL 2 MG/2 ML INJ ONE ×3 (14:19→14:31)
[2021-02-04] MEDS ORDERED: FENTANYL CITR 100 MCG/2 ML ONE ×3 (14:22→14:31)
[2021-02-04] MEDS ORDERED: NALOXONE 0.4 MG/ML VIAL ONE (14:31)
[2021-02-04] MEDS ORDERED: FLUMAZENIL 0.1 MG/ML (5 mL VIAL) IV ONE (14:31)
[2021-02-04] MEDS ORDERED: Ringers Lactate 1,000 ML IV ONE (14:39)
[2021-02-04] MEDS: TRAMADOL HCL 50 MG TAB PO PRN (20:40)
[2021-02-04] MEDS: ENSURE ENLIVE 237 ML CAN PO SCH (20:45)
--- NOTE | 2021-02-04 20:53 | PN ---
Date of Progress Note: 02/04/2021 Basically, patient is status quo, awaiting the biopsy this afternoon. Unless there is unusual compli cation, he could probably be discharged later tonight or in the morning. HR/MODL Voice ID: [id number] Report ID: [id number]
[2021-02-05] MEDS: TRAMADOL HCL 50 MG TAB PO PRN ×2 (02:21→09:05)
[2021-02-05] MEDS: ACETAMINOPHEN 500 MG TAB PO PRN ×2 (04:46→12:21)
[2021-02-05] MEDS: SOTALOL HCL 80 MG TAB PO SCH (06:00)
[2021-02-05] MEDS: NA CHLORIDE 0.9% 1,000 ML IV SCH (07:50)
[2021-02-05] MEDS: ENSURE ENLIVE 237 ML CAN PO SCH (07:51)
--- NOTE | 2021-02-05 11:53 | DS ---
Date of Progress Note: 02/05/2021 The patient tolerated his biopsy. Has minimal discomfort. Still feels like he is constipated; howev er, KUB was negative. He was placed on usual medication at home and will be discharged later today t o follow up with my office in 72 hours. Hopefully at that time, the biopsy report will be back. Pro bability of being either pancreatic mass or lymphoma most likely. Discharged in fair condition. Con trol pain such as it is in his hip and back, which have been ongoing for some time now with alternati ng doses of Tylenol and tramadol. HR/MODL Voice ID: [id number] Report ID: [id number]
[2021-02-05 11:58] VITALS: BP 151/65; TEMP 96.9
--- NOTE | 2021-02-06 08:04 | RAD REPORT ---
EXAM DESCRIPTION: CT - Biopsy Guidance - 02/04/2021 3:30 pm CLINICAL HISTORY: Intraabdominal mass with abnormal lymphadenopathy. 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 De cember 8 CT imaging showed an approximately 4 centimeter mass between the pancreatic tail and stomach , suspected to be primary gastric mass. A 5 centimeter splenic lesion is present and there is abnorma l lymphadenopathy along the celiac axis and the aorta. A 4 x 2.5 cm left periaortic lymph node was se lected for biopsy. The CT-guided biopsy procedure, risks and alternatives were discussed with the patient in detail. Bot h oral and written consent were obtained. A time-out procedure was performed. IV access and physiolog ic monitors were in place. Patient was adequately off of his anticoagulation medication for this proc edure. No contraindicated allergy or medication noted. No lab values noted but would preclude this bi opsy procedure. Patient was placed prone on the CT table. Preliminary imaging identified the left flank access site. Patient was pre-medicated with 1.0 milligrams Versed said IV and 100 micrograms fentanyl IV. Skin was prepped and draped in the usual sterile fashion. Skin and deeper tissues were anesthetized with 1% l idocaine. Using CT guidance, a 17 gauge introducer needle was advanced and placed at the lateral post erior margin of the mass. A total of 3 2 centimeter core biopsies were obtained. Tissue sample appear ed to be adequate. Introducer needle was withdrawn. Hemostasis was obtained at the puncture site with sterile bandage placed. CT imaging during and subsequent to the biopsy showed no retroperitoneal hem orrhage or post biopsy complication. Patient's vital signs were stable throughout the procedure. Conscious sedation time was 40 minutes. P [facility] was transferred back to the floor for continued care. All obtained tissue was given to pathology for pending histologic assessment. IMPRESSION: CT-guided biopsy was performed on a 4 x 2.5 cm left periaortic lymph node. Patient tolerated procedure well without immediate complication. All obtained material was given to p athology for histologic assessment.
== END 2021-02-05 13:36 | disposition home or self-care (01) | DRG 842 ==
LOC: ER 09:34 → ERHOLD 14:37 → 4TH 15:02 → 2ND 02-04 16:46
PROVIDERS: ADMIT Family Medicine; ATTEND Family Medicine
PROC: 07DD3ZX Extraction of Aortic Lymphatic, Percutaneous Approach, Diagnostic (ICD-10-PCS; principal; 2021-02-04)
DX: C85.90 Non-Hodgkin lymphoma, unspecified, unspecified site (principal); I48.91 Unspecified atrial fibrillation; I10 Essential (primary) hypertension; Z95.5 Presence of coronary angioplasty implant and graft; Z20.822 Contact with and (suspected) exposure to COVID-19
CPT/HCPCS: 36415; 74019; 74177; 77012; 80048; 80076; 83690; 83735; 85025; 85610; 85652; 85730; 86140; 88305; 96374; 97116; 97161; 99285; J2250; J2310; J3010; J7030; J7120; Q9967; U0003

== ENCOUNTER 2021-02-06 17:03 | Inpatient (IN) | payer OTHER ==
--- OUTSIDE RECORDS SUMMARY | 2021-02-06 17:06 | XMS REPORT | Clinical Summary ---
:1935 Author Organization [facility] MD [facility] Center Address [address] [place] [address] Care Team Providers Name Role Phone Kuldeep [...] g 12/18/2018 Active (PREVIDENT) 1.1 % daily. [place] dental teeth with cream creamIndications: and spit [...] likely . 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 cylinder devalver) per Cardiology note 10/02/18 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 hospitlilized x 10 days. requ ired IV abx and debridement AZ EXC SKIN MALIG 0.6-1 09/19/2018 Right Procedur e: EXCISION OF CM REMAINDR BODY MALIGNANT LESIO N OF SCALP; Surgeon: Roshan Sauceda MD; Location: MAIN OR; Service: HN - HEAD & NECK SURGERY Medical devices from this surgery are in t he Implants section. AZ SUB GRFT 09/19/2018 Right Procedure: APPLI CATION OF F/S/N/H/F/G/M/D /<100SCM SKIN WU BSTITUTE GRAFT TO /<1ST 25 SCM SCALP; Surgeon: Roshan Sauceda MD; Loca tion: MAIN OR; Service: HN - HEAD & NECK SURGERY Medical devices from this surgery are in t he Implants section. AZ EXC SKIN MALIG 0.6-1 10/10/2018 Midline Procedur e: EXCISION OF CM REMAINDR BODY MALIGNANT LESIO N OF SCALP; Surgeon: Roshan Sauceda MD; Location: MAIN OR; Service: HN - HEAD & NECK SURGERY Medical devices from this surgery are in t he Implants section. AZ FREE MUSC-SKIN FLAP 10/10/2018 Back/Right Procedure : FREE MUSCLE OR W/MICROVASC ANAST MYOCUTANEOUS F LAP WITH MICRVASCULAR TUCKER STOMOSIS; Surgeon: Charles Moreno MD; Location: MAIN O R; Service: PLS - PLASTIC WU RGERY Medical devices from this surgery are in t he Implants section. AZ SPLIT GRFT 10/10/2018 Thigh/Right Procedure: SPLIT THICKNESS TRUNK,ARM,LEG <100 SQCM SKIN GRA FT OF TRUNK/ARM OR LEG 29v27lj; Wu rgeon: Charles Moreno MD; Loca tion: MAIN OR; Service: PL S - PLASTIC SURGERY Medical devices from this surgery are in t he Implants section. AZ CHG FLUOROSCOPY UP TO 10/30/2018 Right Procedu re: FLUOROSCOPY; 1 HOUR PHYSICIAN/QHP Surgeon: Srinivasa Simmons MD; TIME Location: MAIN O R; Service: ORTHOPEDIC ONCOL OGY Medical devices from this surgery are in t he Implants section. AZ OPEN FIX 10/30/2018 Hip/Right Procedure: OPEN REDUCTION [...] carcinoma of skin 2014 Coronary arteriosclerosis 2011 UT n 2011 with had chest pains. sp cardiac stents x 2 ( reportedly had another UT during pr ocedure). pt was started on [...] Vaccination (1) 1947 Implants Implanted Type Area Job Molder Device Shelf Model / Identifier Expiration Serial / Date Lot Distresser Microvascular Anastomotic Device 2.5mm - [id number] Card ioPulm Scalp groSolar JOHN 04/24/2023 [id number] / Implanted: Qty: 1 on 10/10/2018 by Charles Moreno MD at [facility] / [id number] Biomet Hip Frac Nail 11*400mm Rt Implant Right: [employer] 06/10/2028 [id number] / Implanted: Qty: 1 on 10/30/2018 by Ramón Simmons MD at [facility] Femur / [id number] Biomet Hf-Nail Lag Screw 10.5*105mm Implant Right: [employer] 08/07/2027 [id number] / Implanted: Qty: 1 on 10/30/2018 by Ramón Simmons MD at [facility] Femur / [id number] Biomet Cortical Bone Screw 5*54mm Implant Right: [employer] 06/26/2026 [id number] / Implanted: Qty: 1 on 10/30/2018 by Ramón Simmons MD at [facility] Femur / [id number] A Integra Bp Dural Graft 4x5cm - Sna Skin/Tissue [employer] 05/26/2020 [id number] / Implanted: Qty: 1 on 09/19/2018 by Roshan Sauceda MD at [facility] NA / SURG [id number] Cardiac Stents Description: 2010 x2,, 2018 x1 Pins Description: pins on the left elbow Results Not on fileafter 02/07/2020 Insurance Payer Benefit Plan / Subscriber ID Effective Dates Phone Addre ss Type Group AETNA MEDICARE AETNA MEDICARE [id number] 2013-Margarita SWANSON [id number] [place] [address] Advance Directives Code Status Date Activated Date Inactivated Comments Full Code 10/29/2018 6:58 PM 11/12/2018 9:54 PM Full Code 10/10/2018 10:29 AM 10/15/2018 8:46 PM Care Teams Reed Worker Relationship Specialty Start Date End Date Kuldeep Melgoza MD PCP - External Dermatology 08/16/18 [address] [facility] [place] [address] Roshan Sauceda MD PCP - General Head and Neck Surgery 08/16/18 [facility] [place] [address] Ronn Wilson, PCP - External Primary Family Practice 09/04/17 MD Care Provider [address] [place] [id number] Pollo Navarro PCP - External Follow Cardiology 09/04/17 MD Rae Up A [address] [place] [id number]
--- OUTSIDE RECORDS SUMMARY | 2021-02-06 17:14 | XMS REPORT | Continuity of Care Document ---
:1935 [facility] t Address [address] [place] [address] Dr. Crawford. [address] [place] [address] Care Team Providers Name Role Phone Pcp Primary Care Physician Unavailable Sumeet WOLF Attending Clinician Unavailable Isak MANTILLA Attending Clinician Unavailable Kirk LOCKETT, Sumeet Attending Clinician Only, Test Attending Clinician Unavailable Doctor Unassigned, Name Attending Clinician Unavailable Jose Rafael LOCKETT MSherwin Attending Clinician Sarah Ortiz MD Attending Clinician Betito Martin MD Attending Clinician Pob, Lab Main Attending Clinician Unavailable Dora LOCKETT Attending Clinician Sumeet WOLF Admitting Clinician Unavailable Isak MANTILLA Admitting Clinician Unavailable Kirk LOCKETT, Sumeet Admitting Clinician Payers Payer Name Policy Type Policy Effective Date Expiration Date Sour ce Number AETNA MANAGED [id number] 2020 MEDICARE PPO-FERNANDO 00:00:00 AETNA MEDICARE HMO [id number] 2020 POS PPO 00:00:00 AETNA MEDICAREAETNA [id number] 2013 [place] MEDICARE 00:00:00 [id number] [place] [id number] Problems Condition Condition Condition Status Onset Resolution Last Treating Co mments Source Name Details Category Date Date Treatment Clinician Date NSTEMI NSTEMI Disease Active [facility] - elevated elevated 00:00: Medica l myocardial myocardial 00 Ce nter infarction infarction ) ) FEVER Diagnosis Active 2018-022019-01-27 Mem oria 03-11 22:24:00 l FEVER 00:00: Philip 00 Active 01/09/2019 MH [facility] Unexplaine Unexplaine Disease Active 2018-02 Last M [...] Added automatic ally from request for surgery [id number] Encounter Encounter Disease Active Overview: for other for other - Formattin A nderso preprocedu preprocedu 00:00: g [...] 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 [id number] Carotid Duplex: <50% plaque within right ICA, normal left ICA, antegrade flow within bilateral vertebral arteriesO records from [place], [place] Tripp t Cardiolog yreviewed [facility] 05/09/17: LAD prox patent stent X 2, mid 95% successfu l PCI to LADEchoca rdiogram: 05/08/17: normal LVH, 60-65%, LVH, aortic valve sclerosis , mild pHTNStres s test 07/09/18: adenosine nuclear stress: mildly abnormal myocardia l perfusion (low risk scan based on my discussio n with his home cardiolog ist) per Cardiolog y note 10/02/18 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 00 Atrial Problem Active 2020-09-09 Memor ia fibrillati 00:53:30 l on Atrial Butler (disorder) fibrillati on (disorder) Active Problem 09/09/2020 [facility] Carpal Problem Active 2020-09-09 Memor ia tunnel 00:53:30 l syndrome Carpal Clifford n (disorder) tunnel syndrome (disorder) Active Problem 09/09/2020 [facility] Paresthesi Problem Active 2020-09-09 M emoria a 00:53:30 l (finding) Butler Paresthesi a (finding) Active Problem 09/09/2020 [facility] Parkinson' Problem Active 2020-09-09 M emoria s disease 00:53:30 l (disorder) Clifford n Parkinson' s disease (disorder) Active Problem 09/09/2020 [facility] Tremor Problem Active 2020-09-09 Memor ia (finding) 00:53:30 l Tremor Philip (finding) Active Problem 09/09/2020 [facility] Hallucinos Hallucinos Disease Active M D is is Adam n History of Past Illness Condition Condition Condition Status Onset Resolution Last Treating Co mments Source Name Details Category Date Date Treatment Clinician Date Chills Problem 2018-022019-01-21 2019-01-21 M emoria (without 1-14 22:44:12 22:44:12 l fever) Chills 18:00: Butler (without 00 fever) 01/09/2019 01/21/2019 Mcclave Allergies, Adverse Reactions, Alerts Allergy Allergy Status Severity Reaction(s) Onset Inactive Treating Comm ents Source Name Type Date Date Clinician CODEINE DRUG Active Unknown-Cmnt Uni vers INGREDI 7-20 ity of 00:00: [place] 00 [facility] Branch CEPHALEX DRUG Active Unknown-Cmnt Un mary IN INGREDI 7-20 ity of 00:00: [place] 00 [facility] Codeine Propensi Active Unknown - Univ ers ty to See comments 7-20 ity of adverse 00:00: [place] reaction 00 Medical s Branch Cephalex Propensi Active Unknown - Uni vers in ty to See comments 7-20 ity of adverse 00:00: [place] reaction 00 Medical s Branch NO KNOWN Drug Active Univers ALLERGIE Class ity of [facility] [place] [facility] codeine codeine Active Memoria l Philip Cipro Cipro Active Memoria kumar [place] Keflex Keflex Active Memoria kumar [place] NO KNOWN Allergy Active [facility] ALLERGIE S Family History Family Member Diagnosis Comments Start Date Stop Date Source Family member VTE MD Blackwell Family member Bleeding Disorder MD Sumeet senaon Family member Coronary artery And erson disease Family member Stroke MD [facility]well Maternal grandmother Diabetes MD Sumeet senaon Natural mother -Colon cancer MD Arya mitchell Natural mother Hypertension Willis son Social History Social Habit Start Date Stop Date Quantity Comments Source History of tobacco Current smoker MD [facility]well use Exposure to Not sure University SARS-CoV-2 (event) [place] [facility] History SDOH 2020-09-26 2020-09-[address] [facility] - Alcohol Frequency 00:00:00 00:00:00 [facility] History SDOH 2020-09-26 2020-09-[address] [facility] - Alcohol Std Drinks 00:00:00 00:00:00 Medica l Center History [facility] 2020-09-26 2020-09-[address] [facility] - Alcohol Binge 00:00:00 00:00:[address] Social History 2020-08-09 2020-08-09 Beba cuevas 20:37:37 20:37:37 Alcohol intake 2018-12-17 2018-12-17 Ex-drinker MD Adam romero 00:00:00 00:00:00 (finding) Cigarettes smoked 2018-09-04 2018-09-04 MD Arya mitchell current (pack per 00:00:00 00:00:00 day) - Reported Cigarette 2018-09-04 2018-09-04 MD Blackwell pack-years 00:00:00 00:00:00 Tobacco use and 2018-09-04 2018-09-04 Former smokeless MD Blackwell exposure 00:00:00 00:00:00 tobacco user Sex Ass[birth year] [facility] 00:00:00 00:00:00 [facility] Smoking Status Start Date Stop Date Source Unknown if ever smoked [facility] Never smoker [facility] Branch Social History 2019-01-10 07:34:37 2019-01-10 07:34:37 [facility] Philip Medications Ordered Filled Start Stop Current Ordering Indication Dosage Frequency Signature Comments Components Source Medication Medication Date Date Medication? Clinician (SIG) Name Name [facility] 2020-02 Yes PRN, Univers (MIOSTAT) 0-06 Starting ity of 0.01 % 15:28: on Wed [place] intraocular 00 12/01/20 at Ne dical injection 1028, Branch Until Discontinu ed, Routine, Intra-op dexamethaso 2020-02 Yes PRN, Univer s ne 0-06 Starting ity of (DECADRON 15:28: on Wed [place] PHOSPHATE) 00 12/01/20 at Med ical injection 1028, Branch Until Discontinu ed, Routine, Intra-op DUOVISC 2020-02 Yes PRN, Univers (DUOVISC 0-06 Starting ity of VISCO 15:28: on Sun [place] ELASTIC) 3 00 12/01/20 at [facility] ical %-4 %(0.5 1028, Branch mL) 1 % Until (0.55 mL) Discontinu intraocular ed, injection Routine, Intra-op carbachoL 2020-02- No PRN, Univers (MIOSTAT) 0-06 10-06 Starting ity o f 0.01 % 15:28: 18:16 on Wed [place] intraocular 00 :40 12/01/20 at Ne dical injection 1028, Branch Until Sun12/01/20 at 1316, Routine, Intra-op dexamethaso 2020-02- No PRN, Univjosafat rs ne 0-06 10-06 Starting ity of (DECADRON 15:28: 18:16 on Wed [place] PHOSPHATE) 00 :40 12/01/20 at Med ical injection 1028, Branch Until Sun12/01/20 at 1316, Routine, Intra-op DUOVISC 2020-02- No PRN, Univers (DUOVISC 0-06 10-06 Starting ity of VISCO 15:28: 18:16 on Wed [place] ELASTIC) 3 00 :40 12/01/20 at Med ical %-4 %(0.5 1028, Branch mL) 1 % Until Wed (0.55 mL) 12/01/20 at intraocular 1316, injection Routine, Intra-op neomycin-po 2020-02 Yes PRN, Univer s lymyxin-dex 0-06 Starting ity of amethasone 15:27: on Wed [place] (MAXITROL) 00 12/01/20 at [facility] ical 3.5 1027, Branch mg/g-10,000 Until unit/g-0.1 Discontinu % ed, ophthalmic Routine, ointment Intra-op neomycin-po 2020-02- No PRN, Unive rs lymyxin-dex 0-06 10-06 Starting ity of amethasone 15:27: 18:16 [place] Sun [place] (MAXITROL[place] 00 :40 12/01/20 at [facility] ica 3.5 1027, Branch mg/g-10,000 Until Wed unit/g-0.1 12/01/20 at % 1316, ophthalmic Routine, ointment Intra-op balanced 2020-02 Yes PRN, Univers salt irrig 0-06 Starting ity o f soln comb1 15:23: on Sun (BSS PLUS) 00 12/01/20 at [facility] ophthalmic 1023, Branch solution Until 500 mL bag Discontinu ed, Routine, Intra-op EPINEPHrine 2020-02 Yes PRN, Univer s 1:1,000 (1 0-06 Starting ity o f mg/mL) 15:23: on Sun (ADRENALIN) 00 12/01/20 at Ne dical injection 1023, Branch Until Discontinu ed, Routine, Intra-op balanced 2020-02- No PRN, Univers salt irrig 0-06 10-06 Starting ity of soln comb1 15:23: 18:16 on Suna s (BSS PLUS) 00 :40 12/01/20 at [facility] ophthalmic 1023, Branch solution Until Sun 500 mL bag 12/01/20 at 1316, Routine, Intra-op EPINEPHrine 2020-02- No PRN, Unive rs 1:1,000 (1 0-06 10-06 Starting ity of mg/mL) 15:23: 18:16 on Sun (ADRENALIN) 00 :40 12/01/20 at Ne dical injection 1023, Branch Until 12/01/20 at 1316, Routine, Intra-op water for 2020-02 Yes PRN, Univers irrigation 0-06 Starting ity o f irrigation 15:19: on Sun [place] solution 00 12/01/20 at Medic al 1019, Branch Until Discontinu ed, Routine, Intra-op water for 2021-1 2021- No PRN, Univers irrigation 0-06 10-06 Starting ity of irrigation 15:19: 18:16 on Sun [place] solution 00 :40 12/01/20 at Medic al 1019, Branch Until Sun12/01/20 at 1316, Routine, Intra-op Hyaluronida 2020-02 Yes PRN, Univer s se, Human 0-06 Starting ity of Recomb. 15:15: on Sun (HYLENEX) 00 12/01/20 at [facility] injection 1015, Branch Until Discontinu ed, Routine, Intra-op eye block 2020-02 Yes PRN, Univers syringe 11 0-06 Starting ity o f mL 15:15: on Sun [place] 00 12/01/20 at [place] [id number], Branch Until Discontinu ed, Intra-op Hyaluronida 2020-02- No PRN, Unive rs se, Human 0-06 10-06 Starting ity o f Recomb. 15:15: 18:16 on Sun (HYLENEX) 00 :40 12/01/20 at [facility] injection 1015, Branch Until Sun12/01/20 at 1316, Routine, Intra-op eye block 2020-02- No PRN, Univers syringe 11 0-06 10-06 Starting ity of mL 15:15: 18:16 on Sun [place] 00 :40 12/01/20 at [place] [id number], Branch Until Sun12/01/20 at 1316, Intra-op mydriatic 2020-02- No .5mL 0.5 mL, Univ ers #5 0-06 10-06 Left Eye, ity of ophthalmic 14:00: 13:58 ONCE, 1 Hernán as solution 00 :00 dose, On Medical 0.5 mL [facility] Branch syringe 12/01/20 at 0900, Routine, DSU Pre-op lactated 2020-02- No 1000mL at 42 Unive rs ringers IV 0-06 10-06 mL/hr, ity of infusion 14:00: 13:56 1,000 mL, Hernán as 1,000 mL 00 :00 IV Medical Infusion, Branch ONCE, 1 dose, On 12/01/20 at 0900, Routine, DSU Pre-op mydriatic 2020-02- [...] 0-06 by mouth. ity of tablet 11:16: [address] famotidine 2020-02 Yes 20mg Take 20 mg U nivers 20 mg 0-06 by mouth. ity of tablet 11:16: [address] aspirin 81 2020-02 Yes 81mg Take 81 mg U nivers mg EC 0-06 by mouth. ity of tablet 11:16: [address] famotidine 2020-02 Yes 20mg Take 20 mg U nivers 20 mg 0-06 by mouth. ity of tablet 11:16: [address] sotaloL Yes life-threat 80mg Q.5D Take [...] Medical tablet 16 Center furosemide Yes 80mg [id number] Take [address] [facility] (LASIX) 80 8-04 [id number] by mouth 3 [facility] - MG tablet 17:43: 3D (three) Medic al 16 times Center daily. nitroglycer 2020- No .4mg Place 0.[address] [facility] in 8-04 08-04 mg under [facility] - (NITROSTAT) 17:35: 00:00 the tongue Medical 0.4 MG SL 56 :00 every 5 Center tablet (five) minutes as needed for Chest pain Put 1 pill under tongue every 5min as needed for chest pain.No more than 3 doses in 15min.Call 911 if pain unrelieved 5min after 1st dose . nitroglycer [address] [facility] in [...] 7-21 by mouth. ity of tablet 20:06: [address] famotidine 0 Yes 20mg Take 20 mg U nivers 20 mg 7-21 by mouth. ity of tablet 20:06: [address] aspirin 81 0 Yes 81mg Take 81 mg U nivers mg EC 7-21 by mouth. ity of tablet 20:06: [address] famotidine 0 Yes 20mg Take 20 mg U nivers 20 mg 7-21 by mouth. ity of tablet 20:06: [address] balanced 0 Yes PRN, Univers salt irrig 09-15 Starting ity o f soln comb1 18:58: Sun [place] (BSS PLUS) 09/15/20 at [facility] ical ophthalmic 1358, Branch solution Until 500 mL bag Discontinu ed, Routine, Intra-op carbachoL Yes PRN, Univers (MIOSTAT) 09-15 Starting ity of 0.01 % 18:58: Sun [place] intraocular 00 09/15/20 at Ne dical injection 1358, Branch Until Discontinu ed, Routine, Intra-op dexamethaso Yes PRN, Univer s ne 09-15 Starting ity of (DECADRON 18:58: Sun [place] PHOSPHATE) 09/15/20 at [facility] ical injection 1358, Branch Until Discontinu ed, Routine, Intra-op DUOVISC Yes PRN, Univers (DUOVISC 09-15 Starting ity of VISCO 18:58: Wed [place] ELASTIC) 3 00 09/15/20 at [facility] ical %-4 %(0.5 1358, Branch mL) 1 % Until (0.55 mL) Discontinu intraocular ed, injection Routine, Intra-op balanced 2020- No PRN, Univers salt irrig 09-15 Starting ity of soln comb1 18:58: 22:06 Wed [place] (BSS PLUS) 00 :51 09/15/20 at [facility] ical ophthalmic 1358, Branch solution Until Wed 500 mL bag 09/15/20 at 1706, Routine, Intra-op carbachoL 2020- No PRN, Univers (MIOSTAT) 09-15 Starting ity o f 0.01 % 18:58: 22:06 Wed [place] intraocular 00 :51 09/15/20 at Ne dical injection 1358, Branch Until 09/15/20 at 1706, Routine, Intra-op dexamethaso 2020- No PRN, Unive rs ne 09-15 Starting ity of (DECADRON 18:58: 22:06 Wed [place] PHOSPHATE) 00 :51 09/15/20 at [facility] ical injection 1358, Branch Until 09/15/20 at 1706, Routine, Intra-op DUOVISC 2020- No PRN, Univers (DUOVISC 09-15 Starting ity of VISCO 18:58: 22:06 [facility] [place] ELASTIC) 3 00 :51 09/15/20 at [facility] ical %-4 %(0.5 1358, Branch mL) 1 [...] 09-15 Starting ity of amethasone 18:57: 22:06 [facility] (MAXITROL) 00 :51 09/15/20 at [facility] ical 3.5 1357, Branch mg/g-10,000 Until Sun unit/g-0.1 09/15/20 at % 1706, ophthalmic Routine, ointment Intra-op EPINEPHrine Yes PRN, Univer s 1:1,000 (1 09-15 Starting ity o f mg/mL) 18:53: Sun [place] (ADRENALIN) 00 09/15/20 at Ne dical injection 1353, Branch Until Discontinu ed, Routine, Intra-op EPINEPHrine 2020- No PRN, Unive rs 1:1,000 (1 09-15 Starting ity of mg/mL) 18:53: 22:06 [facility] (ADRENALIN) 00 :51 09/15/20 at Ne dical injection 1353, Branch Until Sun09/15/20 at 1706, Routine, Intra-op water for Yes PRN, Univers irrigation 09-15 Starting ity o f irrigation 18:50: Sun [place] solution 00 09/15/20 at Medic al 1350, Branch Until Discontinu ed, Routine, Intra-op water for 2020- No PRN, Univers irrigation 09-15 Starting ity of irrigation 18:50: 22:06 [facility] [place] solution 00 :51 09/15/20 at Medic al 1350, Branch Until Sun09/15/20 at 1706, Routine, Intra-op Hyaluronida Yes PRN, Univer s se, Human 09-15 Starting ity of Recomb. 18:47: Sun [place] (HYLENEX) 00 09/15/20 at Medi mendez injection 1347, Branch Until Discontinu ed, Routine, Intra-op Hyaluronida 2020- No PRN, Unive rs se, Human 09-15 Starting ity o f Recomb. 18:47: 22:06 [facility] (HYLENEX) 00 :51 09/15/20 at Medi mendez injection 1347, Branch Until 7/21/21 at 1706, Routine, Intra-op eye block Yes PRN, Univers syringe 11 09-15 Starting ity o f mL 18:45: Wed [place] 00 09/15/20 at [facility] 1345, Branch Until Discontinu ed, Intra-op eye block 2020- No PRN, Univers syringe 11 09-15 Starting ity of mL 18:45: 22:06 Wed [place] 00 :51 09/15/20 at [facility] 1345, Branch Until Sun09/15/20 at 1706, Intra-op mydriatic 2020- No .5mL 0.5 mL, Univ ers #5 09-15 Right Eye, ity of ophthalmic 17:45: 17:39 ONCE, 1 Hernán as solution 00 :00 dose, Wed Medica l 0.5 mL 09/15/20 at Branch syringe 1245, Routine, DSU Pre-op lactated 2020- No 1000mL at 42 Unive rs ringers IV 09-15 mL/hr, ity of infusion 17:45: 17:39 1,000 mL, Hernán as 1,000 mL 00 :00 IV Medical Infusion, [place] ONCE, 1 dose, Sun09/15/20 at 1245, Routine, DSU Pre-op mydriatic 2020- No .5mL 0.5 mL, Univ ers #5 09-15 Right Eye, ity of ophthalmic 17:45: 17:39 ONCE, 1 Hernán as solution 00 :00 dose, Wed Medica l 0.5 mL 09/15/20 at [place] syringe 1245, Routine, DSU Pre-op lactated 2020- No 1000mL at 42 Unive rs ringers IV 09-15- mL/hr, ity of infusion 17:45: 17:39 1,000 mL, Hernán as 1,000 mL 00 :00 IV Medical Infusion, [place] ONCE, 1 dose, Sun09/15/20 at 1245, Routine, DSU Pre-op aspirin 81 Yes 81mg Take 81 mg U nivers mg EC 09-15 by mouth. ity of tablet 15:06: [address] famotidine Yes 20mg Take 20 mg U nivers 20 mg 7-21 by mouth. ity of tablet 15:06: [address] aspirin 81 0 Yes 81mg Take 81 mg U nivers mg EC 7-21 by mouth. ity of tablet 15:06: [address] famotidine Yes 20mg Take 20 mg U nivers 20 mg 7-21 by mouth. ity of tablet 15:06: [address] apixaban 5 Yes TAKE 1 Memor ia MG Oral 7-12 TABLET BY l Tablet 20:03: MOUTH [place] [Eliquis] 00 TWICE A DAY LORazepam 0 Yes 0 Memoria 0.5 mg oral 7-12 Refill(s) l tablet 20:03: [place] 00 Carbidopa 2020-0 Yes 1 tab, PO, Me moria 25 MG / 7-12 TID, # 90 l Levodopa 20:03: tab, 3 Philip 100 MG Oral 00 Refill(s), Tablet Pharmacy: [[facility] 25-100] cy #[id number], 175.26, cm, 07/19/20 14:31:00 CDT, Height, 75.909, kg, 07/19/20 14:31:00 CDT, Weight apixaban 5 Yes TAKE 1 Memor ia MG Oral 7-12 TABLET BY l Tablet 20:03: MOUTH [place] [Eliquis] 00 TWICE A DAY LORazepam 2020-0 Yes 0 Memoria 0.5 mg oral 7-12 Refill(s) l tablet 20:03: Philip 00 Carbidopa 2020-0 Yes 1 tab, PO, Me moria 25 MG / 7-12 TID, # 90 l Levodopa 20:03: tab, 3 [place] 100 MG Oral 00 Refill(s), Tablet Pharmacy: [[facility] 25-[facility]] cy #[id number], 175.26, cm, 07/19/20 14:31:00 CDT, Height, 75.909, kg, 07/19/20 14:31:00 CDT, Weight apixaban 5 Yes TAKE 1 Memor ia MG Oral 7-12 TABLET BY l Tablet 20:03: MOUTH [place] [Eliquis] 00 TWICE A DAY LORazepam 2020-0 Yes 0 Memoria 0.5 mg oral 7-12 Refill(s) l tablet 20:03: [place] 00 Carbidopa 2020-0 Yes 1 tab, PO, Me moria 25 MG / 7-12 TID, # 90 l Levodopa 20:03: tab, 3 [place] 100 MG Oral 00 Refill(s), Tablet Pharmacy: [[facility] 25-[facility]] cy #[id number], 175.26, cm, 07/19/20 14:31:00 CDT, Height, 75.909, kg, 07/19/20 14:31:00 CDT, Weight carbidopa-l 2020-0 Yes 1 tab, PO, [facility] evodopa 7-12 TID, # 90 [facility] - (Sinemet) 00:00: tab, 3 Medica l 25-100 mg 00 Refill(s), Cent er per tablet Pharmacy: [facility] cy #[id number], 175.26, cm, 07/19/20 14:31:00 CDT, Height, 75.909, kg, 07/19/20 14:31:00 CDT, Weight prednisoLON 2020-0 Yes PLEASE SEE [facility] acetate 6-27 ATTACHED [facility] - (PRED 00:00: FOR Medical FORTE) 1 % 00 DETAILED Cente r ophthalmic DIRECTIONS suspension furosemide 2020-0 Yes 80mg Take 80 mg U nivers 80 mg 6-18 by mouth 2 ity of tablet 00:00: (two) [place] 00 times Medical daily. Branch furosemide 2020-0 Yes 80mg Take 80 mg U nivers 80 mg 6-18 by mouth 2 ity of tablet 00:00: (two) [place] 00 times Medical daily. Branch furosemide 2020-0 Yes 80mg Take 80 mg U nivers 80 mg 6-18 by mouth 2 ity of tablet 00:00: (two) [place] 00 times Medical daily. Branch furosemide 2021-0 Yes 80mg Take 80 mg U nivers 80 mg 6-18 by mouth 2 ity of tablet 00:00: (two) [place] 00 times Medical daily. Branch furosemide 2021-0 Yes 80mg Take 80 mg U nivers 80 mg 6-18 by mouth 2 ity of tablet 00:00: (two) [place] 00 times Medical daily. Branch furosemide 2021-0 Yes 80mg Take 80 mg U nivers 80 mg 6-18 by mouth 2 ity of tablet 00:00: (two) [place] 00 times Medical daily. Branch Carbidopa 2020-0 Yes 1 tab, PO, Me [...] # 60 l Levodopa 21:52: tab, 3 [place] 100 MG Oral 00 Refill(s), Tablet Pharmacy: [...] by mouth 2 ity of 00:00: (two) [place] 00 times Medical daily. Branch ELIQUIS 5 2020-0 Yes 5mg Take 5 mg Uni vers mg tablet 6-11 by mouth 2 ity of 00:00: (two) [place] 00 times Medical daily. Branch ELIQUIS 5 2020-0 Yes 5mg Take 5 mg Uni vers mg tablet 6-11 by mouth 2 ity of 00:00: (two) [place] 00 times Medical daily. Branch ELIQUIS 5 2020-0 Yes 5mg Take 5 mg Uni vers mg tablet 6-11 by mouth 2 ity of 00:00: (two) [place] 00 times Medical daily. Branch ELIQUIS 5 2020-0 Yes 5mg Take 5 mg Uni vers mg tablet 6-11 by mouth 2 ity of 00:00: (two) [place] 00 times Medical daily. Branch ELIQUIS 5 2020-0 Yes 5mg Take 5 mg Uni vers mg tablet 6-11 by mouth 2 ity of 00:00: (two) [place] 00 times Medical daily. Branch Sotalol 2020-0 Yes 80 mg = 1 Memor ia 5-24 tab, PO, l 20:02: BID, # 60 [place] 00 tab, 0 Refill(s) Sotalol 2020-0 Yes 80 mg = 1 Memor ia 5-24 tab, PO, l 20:02: BID, # 60 Philip 00 tab, 0 Refill(s) Sotalol Yes 80 mg = 1 Memor ia 5-24 tab, PO, l 20:02: BID, # 60 [place] 00 tab, 0 Refill(s) Lasix 0 Yes 80 mg, PO, Memori a 5-24 BID, 0 l 20:01: Refill(s) Lasix Yes 80 mg, PO, Memori [...] moria 5-24 Daily, 0 l 20:00: Refill(s) [facility] 2018-02 No Notes: Memoria Mineral Oil -24 (Same l Enema 19:58: as: Mineral Oil Enema) [facility] 2018-02 No Notes: Memoria Mineral Oil -24 (Same l Enema 19:58: as: Mineral Oil Enema) [facility] 2018-02 No Notes: Memoria Mineral Oil -24 (Same l Enema 19:58: as: Mineral Oil Enema) naproxen 2018-02 Yes 500 mg = 1 Mem oria 500 mg oral 1-24 tab, PO, l tablet 15:04: BID, X 7 day, # 14 tab, 0 Refill(s), Pharmacy: [facility] #[id number] bisacodyl 2018-02 Yes 10 mg = 1 Mem oria 10 mg 1-24 supp, MT, l rectal 15:04: Daily, PRN Lilly nn suppository 00 Constipati on, # 10 supp, 0 Refill(s), Pharmacy: [facility] #[id number] Docusate 2018-02 Yes 100 mg = 1 Mem oria Sodium 100 1-24 cap, PO, l MG Oral 15:04: BID, # 60 Lilly nn Capsule 00 cap, 0 [Colace] Refill(s), Pharmacy: [facility] #[id number] bisacodyl 5 2018-02 Yes 10 mg = 2 M emoria mg oral 1-24 tab, PO, l enteric 15:04: Daily, PRN Herm ayush coated 00 Constipati tablet on, X 10 day, # 20 tab, 0 Refill(s), Pharmacy: [facility] #[id number] POLYETHYLEN 2018-02 Yes 17 gm, PO, Memoria E GLYCOL 1-24 Daily, PRN l 3350 142 15:04: Constipati Her pinon MG/ML Oral 00 on, # 255 Solution gm, 0 [Miralax] Refill(s), Pharmacy: [facility] #[id number] naproxen 2018-02 Yes 500 mg = 1 Mem oria 500 mg oral 1-24 tab, PO, l tablet 15:04: BID, X 7 [place] 00 day, # 14 tab, 0 Refill(s), [id number] bisacodyl 2018-02 Yes 10 mg = 1 Mem oria 10 mg 1-24 supp, MT, l rectal 15:04: Daily, PRN Lilly nn suppository 00 Constipati on, # 10 supp, 0 Refill(s), Pharmacy: [facility] #[id number] Docusate 2018-02 Yes 100 mg = 1 Mem oria Sodium 100 1-24 cap, PO, l MG Oral 15:04: BID, # 60 Lilly nn Capsule 00 cap, 0 [Colace] Refill(s), Pharmacy: [facility] #[id number] bisacodyl 5 2018-02 Yes 10 mg = 2 M emoria mg oral 1-24 tab, PO, l enteric 15:04: Daily, PRN Herm ayush coated 00 Constipati tablet on, X 10 day, # 20 tab, 0 Refill(s), Pharmacy: [facility] #[id number] POLYETHYLEN 2018-02 Yes 17 gm, PO, Memoria E GLYCOL 1-24 Daily, PRN l 3350 142 15:04: Constipati Her pinon MG/ML Oral 00 on, # 255 Solution gm, 0 [Miralax] Refill(s), Pharmacy: [facility] #[id number] naproxen 2018-02 Yes 500 mg = 1 Mem oria 500 mg oral 1-24 tab, PO, l tablet 15:04: BID, X 7 [place] 00 day, # 14 tab, 0 Refill(s), Pharmacy: [facility] #[id number] bisacodyl 2018-02 Yes 10 mg = 1 Mem oria 10 mg 1-24 supp, MT, l rectal 15:04: Daily, PRN Lilly nn suppository 00 Constipati on, # 10 supp, 0 Refill(s), Pharmacy: [facility] #[id number] Docusate 2018-02 Yes 100 mg = 1 Mem oria Sodium 100 1-24 cap, PO, l MG Oral 15:04: BID, # 60 Lilly nn Capsule 00 cap, 0 [Colace] Refill(s), Pharmacy: [facility] #[id number] bisacodyl 5 2018-02 Yes 10 mg = 2 M emoria mg oral 1-24 tab, PO, l enteric 15:04: Daily, PRN Herm ayush coated 00 Constipati tablet on, X 10 day, # 20 tab, 0 Refill(s), Pharmacy: [facility] #[id number] POLYETHYLEN 2018-02 Yes 17 gm, PO, Memoria E GLYCOL 1-24 Daily, PRN l 3350 142 15:04: Constipati Her pinon MG/ML Oral 00 on, # 255 Solution gm, 0 [Miralax] Refill(s), Pharmacy: [facility] #[id number] Lactulose 2018-02 No Notes: Memori a 667 MG/ML 1-24 (Same l Oral 01:11: as:Chronul Butler Solution 00 ac) Lactulose 2018-02 No Notes: Memori a 667 MG/ML 1-24 (Same l Oral 01:11: as:Chronul Butler Solution 00 ac) Lactulose 2018-02 No Notes: Memori a 667 MG/ML 1-24 (Same l Oral 01:11: as:Chronul Butler Solution 00 ac) Lactulose 2018-02 No Notes: Memori a 667 MG/ML 1-23 (Same l Oral 14:13: as:Chronul Butler Solution 00 ac) Lactulose 2018-02 No Notes: Memori a 667 MG/ML 1-23 (Same l Oral 14:13: as:Chronul Philip Solution 00 ac) Lactulose 2018-02 No Notes: Memori a 667 MG/ML 1-23 (Same l Oral 14:13: as:Chronul Butler Solution 00 ac) Dulcolax 2018-02 No Notes: Memoria Laxative 1-23 (Same As: l 12:41: Dulcolax, Philip 00 Bisco-Lax) Dulcolax 2018-02 No Notes: Memoria Laxative 1-23 (Same As: l 12:41: Dulcolax, Philip 00 Bisco-Lax) Dulcolax 2018-02 No Notes: Memoria Laxative 1-23 (Same As: l 12:41: Dulcolax, Philip 00 Bisco-Lax) Melatonin 2018-02 No Notes: Pepe micki MG Extended -23 (Same as: l Release 07:13: Melatonin) Herm ayush Tablet 00 Melatonin 2018-02 No Notes: Pepe micki MG Extended -23 (Same as: l Release 07:13: Melatonin) Herm ayush Tablet 00 Melatonin 2018-02 No Notes: Pepe micki MG Extended -23 (Same as: l Release 07:13: Melatonin) Herm [...] a 1-20 (Same as: l 00:41: Phenergan) Butler Phenergan 2018-02 No Notes: Memori a 1-20 (Same as: l 00:41: Phenergan) Butler Phenergan 2018-02 No Notes: Memori a 1-20 (Same as: l 00:41: Phenergan) Philip Phenergan 2018-02 No 25 mg, Memori a 1-20 Route: IM, l 00:40: Q6H, Butler 00 Dosing Weight 74.2, kg, PRN Nausea & Vomiting, Start date: 01/14/19 18:40:00 DOPING SUPERVISOR, Duration: 30 day, Stop date: 02/13/19 18:39:00 DOPING SUPERVISOR Phenergan 2018-02 No 25 mg, Memori a 1-20 Route: IM, l 00:40: Q6H, Butler 00 Dosing Weight 74.2, kg, PRN Nausea & Vomiting, Start date: 01/14/19 18:40:00 DOPING SUPERVISOR, Duration: 30 day, Stop date: 02/13/19 18:39:00 DOPING SUPERVISOR Phenergan 2018-02 No 25 mg, Memori a 1-20 Route: IM, l 00:40: Q6H, Philip 00 Dosing Weight 74.2, kg, PRN Nausea & Vomiting, Start date: 01/14/19 18:40:00 DOPING SUPERVISOR, Duration: 30 day, Stop date: 02/13/19 18:39:00 DOPING SUPERVISOR Dulcolax 2018-02 No Notes: Memoria Laxative 1-19 (Same As: l 16:12: Dulcolax, Philip 00 Bisco-Lax) Dulcolax 2018-02 No Notes: Memoria Laxative 1-19 (Same As: l 16:12: Dulcolax, Philip 00 Bisco-Lax) Dulcolax 2018-02 No Notes: Memoria Laxative 1-19 (Same As: l 16:12: Dulcolax, Butler 00 Bisco-Lax) Levaquin 2018-02 No Notes: Do Pepe micki 1-19 not give l 12:00: w/antacids Philip 00 , dairy pdt & minerals Take 1 hr before or 2 hr after dairy products Levaquin 2018-02 No Notes: Do Pepe micki -19 not give l 12:00: w/antacids Butler 00 , dairy pdt & minerals Take [...] 1-18 (Same as: l / 20:49: Duoneb) Butler Ipratropium 00 Erie 0.167 MG/ML Inhalant Solution metoprolol 2018-02 No Notes: Memor ia extended 1-18 (Same as: l release 20:49: Toprol XL) Herm ayush 00 May split tab, but do not crush. Albuterol 2018-02 No Notes: Memori a 0.833 MG/ML 1-18 (Same as: l / 20:49: Duoneb) Butler Ipratropium 00 Erie 0.167 MG/ML Inhalant Solution metoprolol 2018-02 No Notes: Memor ia extended 1-18 (Same as: l release 20:49: Toprol XL) Herm ayush 00 May split tab, but do not crush. Albuterol 2018-02 No Notes: Memori a 0.833 MG/ML -18 (Same as: l / 20:49: Duoneb) Butler Ipratropium 00 Erie 0.167 MG/ML Inhalant Solution Docusate 2018-02 No 100 mg = 1 Mem oria Sodium 100 1-18 cap, PO, l MG Oral 16:51: BID, 0 Butler Capsule 00 Refill(s) Famotidine 2018-02 Yes 20 mg = 1 Me moria 20 MG Oral 1-18 tab, PO, l Tablet 16:51: BID, 0 Butler 00 Refill(s) naproxen 2018-02 No 500 mg = 2 Mem oria 250 mg oral 1-18 tab, PO, l tablet 16:51: BID, 0 Philip 00 Refill(s) Docusate 2018-02 No 100 mg = 1 Mem oria Sodium 100 1-18 cap, PO, l MG Oral 16:51: BID, 0 Butler Capsule 00 Refill(s) Famotidine 2018-02 Yes 20 mg = 1 Me moria 20 MG Oral 1-18 tab, PO, l Tablet 16:51: BID, 0 Butler 00 Refill(s) naproxen 2018-02 No 500 mg = 2 Mem oria 250 mg oral 1-18 tab, PO, l tablet 16:51: BID, 0 Butler 00 Refill(s) Docusate 2018-02 No 100 mg = 1 Mem oria Sodium 100 1-18 cap, PO, l MG Oral 16:51: BID, 0 Philip Capsule 00 Refill(s) Famotidine 2018-02 Yes 20 mg = 1 Me moria 20 MG Oral 1-18 tab, PO, l Tablet 16:51: BID, 0 Butler 00 Refill(s) naproxen 2018-02 No 500 mg = 2 Mem oria 250 mg oral 1-18 tab, PO, l tablet 16:51: BID, 0 Butler 00 Refill(s) Dulcolax 2018-02 No Notes: Memoria Laxative -18 (Same As: l 15:00: Dulcolax, Philip 00 Correctol) (Do Not Crush) "Do Not Crush" Miralax 2018-02 No Notes: Memoria -18 Dissolve l 15:00: in 8 oz of Butler 00 water or juice. (Same as: Miralax) Dulcolax 2018-02 No Notes: Memoria Laxative 1-18 (Same As: l 15:00: Dulcolax, Philip 00 Correctol) (Do Not Crush) "Do Not Crush" Miralax 2018-02 No Notes: Memoria 1-18 Dissolve l 15:00: in 8 oz of Butler 00 water or juice. (Same as: Miralax) [...] micki n 1-16 (Same l 07:00: as:Levaqui Butler 00 n) Levofloxaci 2018-02 No Notes: Pepe micki n 1-16 (Same l 07:00: as:Levaqui Philip 00 n) Docusate 2018-02 No Notes: Memoria Sodium 100 1-15 (Same as: l MG Oral 23:00: Colace) Butler Capsule 00 (Do Not Crush) Docusate 2018-02 No Notes: Memoria Sodium 100 1-15 (Same as: l MG Oral 23:00: Colace) Butler Capsule 00 (Do Not Crush) Docusate 2018-02 No Notes: Memoria Sodium 100 1-15 (Same as: l MG Oral 23:00: Colace) Philip Capsule 00 (Do Not Crush) Acetaminoph 2018-02 No Notes: Do M emoria en 325 MG / 1-15 not exceed l Hydrocodone 19:50: 4gm/day of Butler Bitartrate 00 acetaminop 10 MG Oral hen. Tablet (Same as: [[place] [place] 10/325] 325/10) Acetaminoph 2018-02 No Notes: Do M emoria en 325 MG / 1-15 not exceed l Hydrocodone 19:50: 4gm/day of Butler Bitartrate 00 acetaminop 10 MG Oral hen. Tablet (Same as: [[place] 10/325] 325/10) Acetaminoph 2018-02 No Notes: Do M emoria en 325 MG / 1-15 not exceed l Hydrocodone 19:50: 4gm/day of Butler Bitartrate 00 acetaminop 10 MG Oral hen. Tablet (Same as: [[place] 10/325] 325/10) clopidogrel 2018-02 No Notes: Pepe micki 1-15 (Same As: l 15:02: Plavix) Butler 00 Flomax 2018-02 No Notes: Memoria 1-15 (Same As: l 15:02: Flomax) Philip 00 "Do Not Crush" clopidogrel 2018-02 No Notes: Pepe micki 1-15 (Same As: l 15:02: Plavix) Philip 00 Flomax 2018-02 No Notes: Memoria 1-15 (Same As: l 15:02: Flomax) Butler 00 "Do Not Crush" clopidogrel 2018-02 No Notes: Pepe micki 1-15 (Same As: l 15:02: Plavix) Philip 00 Flomax 2018-02 No Notes: Memoria 1-15 (Same As: l 15:02: Flomax) Butler 00 "Do Not Crush" Morphine 2019- No 2 mg, 1 Memori a 1-15 mL, Route: l 11:04: IVP, Drug Butler 00 form: SOLN, Q4H, Dosing Weight 74.2, kg, PRN Pain Score 7-10, Start date: 01/10/19 5:04:00 DOPING SUPERVISOR, Duration: 30 day, Stop date: 02/09/19 5:03:00 DOPING SUPERVISOR, 0 Morphine 2018- No 2 mg, 1 Memori a 1-15 mL, Route: l 11:04: IVP, Drug Philip 00 form: SOLN, Q4H, Dosing Weight 74.2, kg, PRN Pain Score 7-10, Start date: 01/10/19 5:04:00 DOPING SUPERVISOR, Duration: 30 day, Stop date: 02/09/19 5:03:00 DOPING SUPERVISOR, 0 Morphine 2018- No 2 mg, 1 Memori a 1-15 mL, Route: l 11:04: IVP, Drug form: SOLN, Q4H, Dosing Weight 74.2, kg, PRN Pain Score 7-10, Start date: 01/10/19 5:04:00 DOPING SUPERVISOR, Duration: 30 day, Stop date: 02/09/19 5:03:00 DOPING SUPERVISOR, 0 Streptococc 2018- No Notes: Pepe micki us -15 Shake well l pneumoniae 09:35: prior to Her pinon serotype 1 51 use (Same capsular as: antigen Prevnar diphtheria 13) [id number] protein conjugate vaccine / Streptococc us pneumoniae serotype 14 capsular antigen diphtheria [id number] protein conjugate vaccine / Streptococc us pneumoniae serotype 18C capsular antigen d Streptococc 2018-02 No Notes: Pepe micki us -15 Shake well l pneumoniae 09:35: prior to Her pinon serotype 1 51 use (Same capsular as: antigen Prevnar diphtheria 13) [id number] protein conjugate vaccine / Streptococc us pneumoniae serotype 14 capsular antigen diphtheria [id number] protein conjugate vaccine / Streptococc us pneumoniae serotype 18C capsular antigen d Streptococc 2018-02 No Notes: Pepe micki us 1-15 Shake well l pneumoniae 09:35: prior to Her pinon serotype 1 51 use (Same capsular as: antigen Prevnar diphtheria 13) [id number] protein conjugate vaccine / Streptococc us pneumoniae serotype 14 capsular antigen diphtheria [id number] protein conjugate vaccine / Streptococc us pneumoniae serotype 18C capsular antigen d metoprolol 2018-02 Yes 50 mg = 1 Me moria 50 mg oral 1-15 tab, PO, l tablet, 09:19: Daily, # Clifford n extended 00 30 tab, 0 release Refill(s) clopidogrel 2018-02 Yes 75 mg = 1 M emoria 75 mg oral 1-15 tab, PO, l tablet 09:19: Daily, # Butler 00 30 tab, 0 Refill(s) atorvastati 2018-02 Yes 80 mg, PO, Memoria n 1-15 Daily, 0 l 09:19: Refill(s) Butler 00 Tamsulosin 2018-02 Yes 0.4 mg = [...] tab, PO, l tablet 09:19: Daily, # Butler 00 30 tab, 0 Refill(s) atorvastati 2018-02 [...] (Same as: :00: Duoneb) Philip Ipratropium 00 Erie 0.167 MG/ML Inhalant Solution Albuterol 2018-02 No Notes: Memori a 0.833 MG/ML 1-15 (Same as: :00: Duoneb) Butler Ipratropium 00 Erie 0.167 MG/ML Inhalant Solution Albuterol 2018-02 No Notes: Memori a 0.833 MG/ML 1-15 (Same as: :00: Duoneb) Butler Ipratropium 00 Erie 0.167 MG/ML Inhalant Solution Ondansetron 2018-02 No [...] emoria 03-12 Rate: 60 l 08:33: ml/hr, Butler 00 Infuse over: 16.7 hr, Route: IV, Dosing Weight 74.2 kg, Total Volume: 1,000, Start date: 01/10/19 2:33:00 DOPING SUPERVISOR, Duration: 1 doses or times, Stop date: 01/10/19 19:14:00 DOPING SUPERVISOR, 1.91, m2, 0 NS 1,000 mL 2018-02 No 1,000 mL, M emoria 03-12 Rate: 60 l 08:33: ml/hr, Philip 00 Infuse over: 16.7 hr, Route: IV, Dosing Weight 74.2 kg, Total Volume: 1,000, Start date: 01/10/19 2:33:00 DOPING SUPERVISOR, Duration: 1 doses or times, Stop date: 01/10/19 19:14:00 DOPING SUPERVISOR, 1.91, m2, 0 NS 1,000 mL 2018-02 No 1,000 mL, M emoria 03-12 Rate: 60 l 08:33: ml/hr, Philip 00 Infuse over: 16.7 hr, Route: IV, Dosing Weight 74.2 kg, Total Volume: 1,000, Start date: 01/10/19 2:33:00 DOPING SUPERVISOR, Duration: 1 doses or times, Stop date: 01/10/19 19:14:00 DOPING SUPERVISOR, 1.91, m2, 0 Morphine 2018-02 No Notes: Memoria -15 (Same l 07:20: as:MORPhin Butler 00 e Sulfate) Zofran 2018-02 No Notes: Memoria -15 (Same as: l 07:20: Zofran) Philip 00 MEDICATION WASTE Product Size: 4 mg Product Wasted: ___ mg Morphine 2018-02 No Notes: Memoria -15 (Same l 07:20: as:MORPhin Butler 00 e Sulfate) Zofran 2018-02 No Notes: Memoria 1-15 (Same as: l 07:20: Zofran) Butler 00 MEDICATION WASTE Product Size: 4 mg Product Wasted: ___ mg Morphine 2018-02 No Notes: Memoria 1-15 (Same l 07:20: as:MORPhin Butler 00 e Sulfate) Zofran 2018-02 No Notes: Memoria 1-15 (Same as: l 07:20: Zofran) Butler 00 MEDICATION WASTE Product Size: 4 mg Product Wasted: ___ mg Levaquin 2018-02 No Notes: Memoria 1-15 (Same l 07:17: as:Levaqui Philip 00 n) Levaquin 2018-02 No Notes: Memoria 1-15 (Same l 07:17: as:Levaqui Butler 00 n) Levaquin 2018-02 No Notes: Memoria 1-15 (Same l 07:17: as:Levaqui Philip 00 n) Zofran 2018-02 No Notes: Memoria 1-15 (Same as: l 04:21: Zofran) Butler 00 MEDICATION WASTE Product Size: 4 mg [...] Weight 74.2 kg, Start date: 01/09/19 22:20:00 DOPING SUPERVISOR, Stop date: 01/09/19 22:20:00 DOPING SUPERVISOR, 0 Saline 2018-02 No Notes: Memoria Flush 0.9% 1-15 (Same as: l 04:20: BD Butler 00 Posiflush) Sodium 2018-02 No 1,000 mL, Memori a Chloride 1-15 2,000 l 0.9% 04:20: ml/hr, Butler (Bolus) IV 00 Infuse Over: 0.5 hr, Route: IV, 1,000, Drug form: INJ, ONCE, Priority: STAT, Dosing Weight 74.2 kg, Start date: 01/09/19 22:20:00 DOPING SUPERVISOR, Stop date: 01/09/19 22:20:00 DOPING SUPERVISOR, 0 Saline 2018-02 No Notes: Memoria Flush 0.9% 1-15 (Same as: l 04:20: BD Philip 00 Posiflush) Sodium 2018-02 No 1,000 mL, Memori a Chloride 1-15 2,000 l 0.9% 04:20: ml/hr, Philip (Bolus) IV 00 Infuse Over: 0.5 hr, Route: IV, 1,000, Drug form: INJ, ONCE, Priority: STAT, Dosing Weight 74.2 kg, Start date: 01/09/19 22:20:00 DOPING SUPERVISOR, Stop date: 01/09/19 22:20:00 DOPING SUPERVISOR, 0 metoprolol 2018-02 Yes 50mg Take 50 [...] daily. n 1.1 % 00 of scalp [place] dental teeth with cream cream and spit [...] kg Systolic blood 2020-12-01 15:50:00 147 mm[facility]Hg[facility] Diastolic blood 2020-12-01 15:50:00 71 mm[Hg] [facility] Respiratory rate 2020-12-01 15:50:00 18 /min [facility] Oxygen saturation in 2020-12-01 15:50:00 100 /min [facility] Arterial blood by [facility] Pulse oximetry Branch Body temperature 2020-12-01 15:45:00 36.22 Jessica [facility] Heart rate 2020-12-01 13:51:00 68 /min [facility] Body height 2020-11-18 14:58:00 175.3 cm [facility] Body weight 2020-11-18 14:58:00 76.2 kg [facility] BMI 2020-11-18 14:58:00 24.80 kg/m2 [facility] Systolic blood 2020-12-01 15:50:00 147 mm[Hg] [facility] Diastolic blood 2020-12-01 15:50:00 71 mm[Hg] [facility] Respiratory rate 2020-12-01 15:50:00 18 /min [facility] Oxygen saturation in 2020-12-01 15:50:00 100 /min [facility] Arterial blood by [place] [facility] Pulse oximetry Branch Body temperature 2020-12-01 15:45:00 36.22 Jessica [facility] Heart rate 2020-12-01 13:51:00 68 /min [facility] Body height 2020-11-18 14:58:00 175.3 cm [facility] Body weight 2020-11-18 14:58:00 76.2 kg [facility] BMI 2020-11-18 14:58:00 24.80 kg/m2 [facility] HEIGHT 2020-09-28 12:51:00 175.3 cm WEIGHT 2020-09-28 12:51:00 74.844 kg WEIGHT 2020-09-28 06:00:00 74.9 kg WEIGHT 2020-09-27 06:00:00 72.5 kg HEIGHT 2020-09-26 03:52:00 175.3 cm WEIGHT 2020-09-26 03:52:00 75 kg Diastolic blood 2020-09-15 19:30:00 75 mm[Hg] [facility] Heart rate 2020-09-15 19:30:00 59 /min [facility] Oxygen saturation in 2020-09-15 19:30:00 98 /min [facility] Arterial blood by [facility] Pulse oximetry Branch Systolic blood 2020-09-15 19:30:00 146 mm[Hg] [facility] Respiratory rate 2020-09-15 19:21:00 24 /min [facility] Body temperature 2020-09-15 19:15:00 36.17 Jessica [facility] Body height 2020-09-06 18:10:00 175.3 cm [facility] Body weight 2020-09-06 18:10:00 76.3 kg [facility] BMI 2020-09-06 18:10:00 24.83 kg/m2 [facility] Diastolic blood 2020-09-15 19:30:00 75 mm[Hg] [facility] Heart rate 2020-09-15 19:30:00 59 /min [facility] Oxygen saturation in 2020-09-15 19:30:00 98 /min [facility] Arterial blood by [place] [facility] Pulse oximetry Branch Systolic blood 2020-09-15 19:30:00 146 mm[Hg] [facility] Respiratory rate 2020-09-15 19:21:00 24 /min [facility] Body temperature 2020-09-15 19:15:00 36.17 Jessica [facility] Body height 2020-09-06 18:10:00 175.3 cm [facility] Body weight 2020-09-06 18:10:00 76.3 kg [facility] BMI 2020-09-06 18:10:00 24.83 kg/m2 [facility] Systolic blood 2020-09-15 19:30:00 146 mm[Hg] [facility] Diastolic blood 2020-09-15 19:30:00 75 mm[Hg] [facility] Heart rate 2020-09-15 19:30:00 59 /min [facility] Oxygen saturation in 2020-09-15 19:30:00 98 /min [facility] Arterial blood by [place] [facility] Pulse oximetry Branch Respiratory rate 2020-09-15 19:21:00 24 /min [facility] Body temperature 2020-09-15 19:15:00 36.17 Jessica [facility] Body height 2020-09-06 18:10:00 175.3 cm [facility] Body weight 2020-09-06 18:10:00 76.3 kg [facility] [place] BMI 2020-09-06 18:10:00 24.83 kg/m2 [facility] Systolic blood 2020-09-15 19:30:00 146 mm[Hg] Univer [facility]ity of [facility] Diastolic blood 2020-09-15 19:30:00 75 mm[Hg] [facility] of [facility] Heart rate 2020-09-15 19:30:00 59 /min [facility] Oxygen saturation in 2020-09-15 19:30:00 98 /min University Arterial blood by [facility] Pulse oximetry Branch Respiratory rate 2020-09-15 19:21:00 24 /min [facility] 2020-09-15 19:15:00 36.17 Jessica [facility] Body height 2020-09-06 18:10:00 175.3 cm Universi [facility] Body weight 2020-09-06 18:10:00 76.3 kg Universi [facility] BMI 2020-09-06 18:10:00 24.83 kg/m2 [facility] Systolic blood 2020-09-29 11:17:00 132 mm[Hg] [facility] Diastolic blood 2020-09-29 11:17:00 61 mm[Hg] [facility] Heart rate 2020-09-29 11:17:00 78 /min [facility] Body temperature 2020-09-29 11:17:00 36.44 Jessica [facility] Respiratory rate 2020-09-29 11:17:00 20 /min [facility] Oxygen saturation in 2020-09-29 11:17:00 97 /min [facility] - Arterial blood by Medical nter Pulse oximetry Body height 2020-09-28 12:51:00 175.3 cm [facility] Body weight 2020-09-28 12:51:00 74.844 kg [facility] BMI 2020-09-28 12:51:00 24.37 kg/m2 [facility] Systolic (mm Hg) 2020-09-06 19:00:00 Pepe rial Butler Diastolic (mm Hg) 2020-09-06 19:00:00 Mem orial Butler Heart Rate 2020-09-06 19:00:00 [facility] Respitory Rate 2020-09-06 19:00:00 Memori al Butler Systolic (mm Hg) 2020-08-09 20:36:00 Pepe rial Philip Diastolic (mm Hg) 2020-08-09 20:36:00 Mem orial Butler Heart Rate 2020-08-09 20:36:00 [facility] Philip Respitory Rate 2020-08-09 20:36:00 Memori al Philip Systolic (mm Hg) 2020-07-19 19:31:00 Pepe rial Butler Diastolic (mm Hg) 2020-07-19 19:31:00 Mem orial Philip Heart Rate 2020-07-19 19:31:00 [facility] Philip Respitory Rate 2020-07-19 19:31:00 Memori al Philip Height 2020-07-19 19:31:00 175.26 cm [facility] Philip Weight 2020-07-19 19:31:00 [facility] BMI Calculated 2020-07-19 19:31:00 Memori al Butler Temperature Oral (F) 2019-01-19 21:26:00 97.6 F [facility] Heart Rate 2019-01-19 21:26:00 [facility] Respitory Rate 2019-01-19 21:26:00 Memori al Philip Systolic (mm Hg) 2019-01-19 21:26:00 Pepe rial Philip Diastolic (mm Hg) 2019-01-19 21:26:00 Mem orial Philip Temperature Oral (F) 2019-01-19 17:23:00 97.9 F [facility] Heart Rate 2019-01-19 17:23:00 [facility] Philip Respitory Rate 2019-01-19 17:23:00 Memori al Butler Systolic (mm Hg) 2019-01-19 17:23:00 Pepe rial Butler Diastolic (mm Hg) 2019-01-19 17:23:00 Mem orial Butler Temperature Oral (F) 2019-01-19 13:47:00 97.6 F [facility] Philip Heart Rate 2019-01-19 13:47:00 [facility] Butler Respitory Rate 2019-01-19 13:47:00 Ada velázquez Butler Systolic (mm Hg) 2019-01-19 13:47:00 Pepe Hendersonann Diastolic (mm Hg) 2019-01-19 13:47:00 Eugenia Palacios Height 2019-01-10 12:17:[address] 2019-01-10 03:42:00 [facility] Procedures Procedure Date / Time Performing Source Performed Clinician PHACOEMULSIFICATION OF 2020-12-[address] [facility] CATARACT WITH INTRAOCULAR 15:03:00 Medica l Branch LENS IMPLANT ASSIGNMENT OF BENEFITS 2020-11-29 Doctor Unassigned, [facility] 20:50:21 [facility] POCT-GLUCOSE METER 2020-09-29 Hasolimpia, Zaheer Ali [facility] - 11:24:00 [facility] POCT-GLUCOSE METER 2020-09-29 Diana, Zaheer Ali [facility] - 07:37:00 [facility] BASIC METABOLIC PANEL (7) 2020-09-29 Jessica, Ramesh [facility] - 05:02:00 [facility] CBC (HEMOGRAM ONLY) 2020-09-29 Jessica, Ramesh [facility] - 05:02:00 [facility] MAGNESIUM 2020-09-29 Jessica, Ramesh [facility] - 05:02:00 [facility] POCT-GLUCOSE METER 2020-09-28 Diana, Zaheer Ali [facility] - 22:29:00 [facility] US ABDOMEN LIMITED 2020-09-[address] [facility] - 15:36:00 [facility] APTT 2020-09-28 Jessica, Ramesh [facility] - 10:58:00 [facility] POCT-GLUCOSE METER 2020-09-28 Hasolimpia, Zaheer Ali [facility] - 07:47:00 [facility] BASIC METABOLIC PANEL (7) 2020-09-28 Jessica, Ramesh [facility] - 06:37:00 [facility] CBC (HEMOGRAM ONLY) 2020-09-28 Jessica, Ramesh [facility] - 06:37:00 [facility] MAGNESIUM 2020-09-28 Jessica, Ramesh [facility] - 06:37:00 [facility] APTT 2020-09-28 Jessica, Ramesh [facility] - 00:27:00 [facility] POCT-GLUCOSE METER 2020-09-27 Diana, Zaheer Smith [facility] - 16:39:00 [facility] POCT-GLUCOSE METER 2020-09-27 Diana, Zaheer Smith [facility] - 11:16:00 [facility] 2D ECHO W/ DOPPLER 2020-09-27 Jose Rafael [facility] - (CW/PW/COLOR) 09:45:35 [facility] POCT-GLUCOSE METER 2020-09-27 Diana, Zaheer Smith [facility] - 08:43:00 [facility] SARS-COV2/RT-PCR ([facility] & REF 2020-09-27 [facility], [facility] - LABS) 04:13:00 [facility] BASIC METABOLIC PANEL (7) 2020-09-27 [facility] - 04:13:00 [facility] CBC (HEMOGRAM ONLY) 2020-09-27 Jessica, Ramesh [facility] - 04:13:00 [facility] MAGNESIUM 2020-09-27 [facility] - 04:13:00 [facility] IRON, TIBC, % SAT. (WITHOUT 2020-09-27 Diana Zaheer Smith [facility] - FERRITIN) 04:13:00 [facility] FERRITIN 2020-09-27 Diana Zaheer Smith [facility] - 04:13:00 [facility] VITAMIN B12 AND FOLATE 2020-09-27 Diana Zaheer Ali [facility] - 04:13:00 [facility] POCT-GLUCOSE METER 2020-09-26 Diana Zaheer Ali [facility] - 23:06:00 [facility] APTT 2020-09-26 Jessica Ramesh [facility] - 12:26:00 [facility] ABORH, MANUAL 2020-09-26 Abril Lucero [facility] - 06:46:00 [facility] XR CHEST 1 VIEW PORTABLE / 2020-09-26 Jorje Covarrubias [facility] - BEDSIDE 05:40:00 [facility] COMPREHENSIVE METABOLIC PANEL 2020-09-[address] [facility] - 04:29:00 [facility] HEMOGLOBIN A1C 2020-09-[address] [facility] - 04:29:00 [facility] HIGH SENSITIVITY TROPONIN I 2020-09-26 Satish, [facility] 04:29[facility]00 [facility] LIPID PANEL 2020-09-26 [facility], [facility] - 04:29:00 [facility] CBC W/PLT COUNT & AUTO 2020-09-26 SatishJorje geiger [facility] - DIFFERENTIAL 04:29:00 [facility] B-TYPE NATRIURETIC FACTOR 2020-09-26 [facility]00 [facility] TYPE AND SCREEN, AUTOMATED 2020-09-26 [facility]orje geiger [facility]00 [facility] PROTHROMBIN TIME/INR 2020-09-26 [facility] - 04:28[facility]00 [facility] APTT 2020-09-26 [facility] ECG 12-LEAD 2020-09-26 Unknown, Hl7 Doctor VALDO Joyner - 03:44:53 [facility] PHACOEMULSIFICATION OF 2020-09-[address] [facility] CATARACT WITH INTRAOCULAR 18:32:00 Medica l Branch LENS IMPLANT CBC WITH DIFF 2020-09-13 Robin Wolf [facility] 19:46:00 Medical Branch COVID-19 (ID NOW RAPID 2020-09-[address] [facility] TESTING) 19:40:00 Medical Branch ASSIGNMENT OF BENEFITS 2020-09-13 Doctor Unassigned, [facility] 19:32:02 [place] [facility] Plan of Care Planned Activity Planned Date Details Comments Source Future Scheduled 2020-10-27 INFLUENZA VACCINE VALDO Joyner - Test 00:00:00 (#1) [code = [facility] INFLUENZA VACCINE (#1)] Future Scheduled 2020-02-27 [...] Department ID 2020-12-27 Outpatient SULEMA WOLF OPH [id number] Univers 19:23:53 [facility] 2020-12-27 Outpatient R KIRK NHGALINA OPH [id number] Univers 09:11:23 [facility] 2020-09-26 Inpatient ER ORDOÑEZ-CAM [facility] Cardiology [id number] [facility] 03:36:00 FRANKY MANDUJANO 2020-12-08 2020-12-08 Outpatient CIRO TANNER [id number] [facility]oria 14:30:00 14:30:00 04 kumar Palacios 2020-12-07 2020-12-07 Outpatient CIRO TANNER [id number] [facility]oria 10:45:00 10:45:00 03 kumar Palacios 2020-12-01 2020-12-01 [facility] Kirk NHGALINA [id number] Univers 08:45:00 11:16:00 Encounter Robin Langford 350.1.13.10 it[place] [id number] [facility] 020 Branch 2020-12-01 2020-12-01 Surgery Kirk, [facility] 1.2.840.114 [id number] Univers 10:08:00 10:50:00 Robin Langford 350.1.13.10 [place] [id number] [facility] 020 Branch 2020-11-29 2020-11-29 Laboratory Only, Adc Test [facility] 1.2.840. 114 [id number] Univers 15:49:32 16:04:32 Only Kirk, Robin Langford 350.1.13.1 0 [place] of [place] [id number] [facility] 353 Branch 2020-11-29 2020-11-[address] [facility] [id number] -[id number] Univers 15:15:00 15:15:00 [id number] ity of [facility] 2020-11-29 2020-11-[address] [facility] [id number] Univers 15:15:00 15:15:00 ity of [facility] 2020-11-29 2020-11-29 Orders Doctor GABI 1.2.840.114 [id number] Univers 00:00:00 00:00:00 Only Unassigned, ML 350.1.13.10 ity of [place] [facility] 4.2.7.2.686 Hernán as [phone] [facility] 009 Branch 2020-11-09 2020-11-[address] [facility] [id number] -[id number] Univers 12:00:00 12:00:00 [id number] ity of [facility] 2020-09-26 2020-09-26 Outpatient [facility] [id number] [facility] 00:00:00 23:59:00 Elle 2020-09-24 2020-09-24 Outpatient STLMLC STLMLC [id number] [facility] 00:00:00 00:00:00 Mauricio heath Outpati ent Clinics 2020-09-15 2020-09-15 Surgery [facility] 1.2.840.114 [id number] Univers 14:11:00 14:51:00 Robin Langford 350.1.13.10 ity of [place] [id number] [facility] 020 [place] 2020-09-15 2020-09-15 Surgery [facility] 1.2.840.114 [id number] 14:11:00 14:51:00 [place] 350.1.13.10 [place] 4.2.7.2.686 Surgical [id number] [place] [address] 2020-09-15 2020-09-15 [facility] 1.2.888.409 [id number] Univers 12:25:00 14:50:00 Encounter Robin Langford 350.1.13.10 ity of [place] [id number] [facility] [address] [place] [address] 2020-09-15 2020-09-15 [facility] 1.2.733.343 [id number] 12:25:00 14:50:00 Encounter Robin Langford 350.1.13.10 [place] 4.2.7.2.686 Surgical [id number] [place] [address] 2020-09-13 2020-09-[address] [facility] [id number] -[id number] Univers 15:15:00 15:15:00 [id number] ity of [facility] 2020-09-13 2020-09-13 Removable Prosthodontist Sharona Pretty Lab Main [facility] 1.2.8 40.114 [id number] Univers 14:29:04 14:44:04 Visit KirkRobin 350.1.13.1 0 it[place] of [place] Profess[place] [phone] [address] 2020-09-13 2020-09-13 Removable Prosthodontist Sharona Pretty [facility] 1.2.840.114 [id number] 14:29:04 14:44:04 Visit Lab Main Primitivo 350.1.13.10 [place] 4.2.7.2.686 [facility] [id number] [address] 2020-09-13 2020-09-13 Laboratory Only, [facility] Test [facility] 1.2.840. 114 [id number] Univers 14:17:45 14:32:45 Only Robin Wolf 350.1.13.1 0 ity of [place] 4.2.7.2.[address] [facility] [phone] [facility] 353 [place] 2020-09-13 2020-09-13 Laboratory Only, [facility] 1.2.840.114 [id number] 14:17:45 14:32:45 Only Test Primitivo 350.1.13.10 [place] 4.2.7.2.686 [place] [id number] [facility] 2020-09-13 2020-09-[address] [facility] [id number] Univers 14:00:00 14:00:00 ROBIN [facility] 2020-09-13 2020-09-13 Orders Doctor ASHLEY 1.2.840.114 [id number] Univers 00:00:00 00:00:00 Only Unassigned, ML 350.1.13.10 ity of [place] [facility] 4.2.7.2.686 Hernán [id number] [address] 2020-09-13 2020-09-13 Orders Doctor ASHLEY 1.2.840.114 [id number] 00:00:00 00:00:00 Only Unassigned, ML 350.1.13.10 [place] [facility] 4.2.7.2.686 [id number] 009 2020-09-06 2020-09-07 Outpatient nullFlavo MNA [id number] Zana 19:00:00 04:59:59 r Neurology 02 l Corwin Palacios 2020-08-20 2020-08-[address] [facility] [id number] Univers 15:45:00 15:45:00 ROBIN boone [facility] 2020-08-11 2020-08-11 Outpatient STLMLC [facility] [id number] [facility] 00[facility] 2020-08-09 2020-08-10 Outpatient nullFlavo MNA [id number] Memoria 20:00:00 04:59:59 r Neurology 01 l Madill Butler 2020-08-03 2020-08-03 Outpatient [facility]LMLC [facility] [id number] [facility] 2020-07-28 2020-07-28 Outpatient STLMLC [facility]MLC [id number] [facility] 2020-07-19 2020-07-20 Outpatient nullFlavo MNA [id number] Memoria 19:30:00 04:59:59 r Neurology 00 l Madill Butler 2020-07-13 2020-07-13 Outpatient STLMLC STLC [id number] [facility] 2020-07-05 2020[facility]07-05 [facility] [id number] 2020-06-29 2020-06-29 [facility] [id number] [facility] 2020-06-25 2020-06-25 Outpatient STLMLC STLC [id number] [facility] 2020-06-24 2020-06-24 Outpatient STLMLC STLC [id number] [facility] 2019-01-10 2019-01-20 Inpatient nullFlavo [facility] [id number] Memoria 03:18:46 00:08:00 r Philip 00 l Mcclave Lilly 2019-01-10 2019-01-10 Inpatient E [facility] MED 7500 [facility] 15:16:00 01:33:00 Results Test Description Test Time Test Comments Results Result Comments Source POC-Glucose meter 2020-09-29 11:42:00 Test Item Value Reference Range Interpretation Comme nts POC-Glucose Meter (test code = 106 mg/dL 70-110 : TESTED AT [facility] [address] [facility] 1538) [place], [address]: Insole Beveler/Techni jenifer ID = [id number] for ISIAH EM Lab Interpretation (test code = Normal 88390-9) [facility] [id number] 11:42:00 Test Item Value Reference Range Interpretation Comments POC-GLUCOSE METER 106 mg/dL 70-110 : [facility] (BE[facility]ER[facility] (test code = KHUSHINE R [facility], 1538) [address]: Insole Beveler/Techni jenifer ID = [id number] for ISIAH COLLINS POCT-GLUCOSE [id number] 07:59:00 Test Item Value Reference Range Interpretation Comments POC-GLUCOSE METER 98 mg/dL 70-110 : [facility] (BEAKER) (test code = KHUSHINE R [facility], 1538) [address]: Insole Beveler/Techni jenifer ID = [id number] for ISIAH MANRIQUEZ [id number] 06:20:00 Test Item Value Reference Range Interpretation Comments Magnesium (test code = 2.1 mg/dL 1.6-2.6 71503-8) GRABIEL (test code = GRABIEL) Insole Beveler ID - BS Lab Interpretation (test Normal code = 46932-6) [facility] [id number] 06:20:00 Test Item Value Reference Range Interpretation [...] Calcium (test code = 9.4 mg/dL 8.4-10.2 86745-2) EGFR (test code = 93 mL/min/1.73 [place] [address]-4) NOT ACCURATE CREATININE CLEARANCE IN PREDICTING GLOMERULAR FILTRATION RATE . ESTIMATED GFR I S NOT APPLICABLE FOR DIALYSIS PATIENTS. GRABIEL (test code = GRABIEL) Insole Beveler ID - BS Lab Interpretation Abnormal (test code = 28374-4) [facility] MET[facility]OLIC [id number] 06:20:00 Test Item Value Reference Range Interpretation [...] S NOT APPLICABLE FOR DIALYSIS PATIEN TS. Insole Beveler ID - [id number] 06:20:00 Test Item Value Reference Range Interpretation Comments MAGNESIUM (BEAKER) (test code = 2.1 mg/dL 1.6-2.6 627) Insole Beveler ID - BSCBC (Hemogram only)2020-09-29 05:40:00 Test Item Value Reference Range Interpretation Comments WBC (test code = 6690-2) 3.9 See_Comment [A utomated message] The system Alticast generated this result transmitted ref erence range: 3.5 - 10 .5 K/L. The refe rence range was not u sed to interpret this result as normal/abnor mal. RBC (test code = 789-8) 4.16 See_Comment L [Au tomated message] The system [employer] generated this result transmitted ref erence range: 4.63 - 6 .08 M/L. The refe rence range was not u sed to interpret this result as normal/abnor mal. MCHC (test code = 786-4) 31.3 See_Comment L [A utomated message] The system [employer] generated this result transmitted ref erence range: [...] See_Comment [Aut omated message] 777-3) The system [employer] generated this result transmitted ref erence range: 150 - 45 0 K/CU MM. The referen ce range was not u sed to interpret this result as normal/abnor mal. MPV (test code = 10.4 fL 9.4-12.4 08909-8) nRBC (test code = 413) 0 See_Comment [Aut omated message] The system [employer] generated this result transmitted ref erence range: 0 - 0 /1 00 WBC. The refere nce range was not u sed to interpret this result as normal/abnor mal. Lab Interpretation (test Abnormal code = 13264-0) [facility] (HEMOGRAM ONLY)2020-09-29 05:40:00 Test Item Value Reference [...] 0-0 (BEAKER) (test code = 413) POCT-GLUCOSE [id number] 22:41:00 Test Item Value Reference Range Interpretation Comments POC-GLUCOSE METER 97 mg/dL 70-110 : [facility] (BEAKER) (test code = AUDREY Whitley [facility], 1538) [address]: Insole Beveler/Techni jenifer ID = [id number] for Stam per, [place] U/S, ABDOMINAL, [id number] 17:39:00Abdomen limited area? Add comment if clarification is needed.->Gall BladderReason for exam:->epigastric pain [facility] : 1935 Sex: MFINAL [...] IMPRESSION:Unremarkable right upper quadrant ultrasound.. Signed: Nayely Alvarezort Verified Date/Time: 09/28/2020 17:39:04 US abdomen [id number] 17:39:00Interface, External Ris In - 09/28/2020 5:44 [...] right upper quadrant ultrasound.. Signed: Nayely Alvarez MDRaliaort Verified Date/Time: 09/28/2020 17:39:04 El ectronically signed by: NAYELY ALVAREZ MD on 09/28/2020 05:39 [facility] 11:24:00 Test Item Value Reference Range Interpretation Comments PTT (test code = 78.0 See_Comment H [Automated message] 62370-4) The system [employer] generated this result transmitted ref erence range: 22.5 - 3 6.0 seconds. The reference range was not used to int erpret this result as normal/abnormal . Lab Interpretation (test Abnormal code = 59675-8) [facility] CenterAPTT2021-08-03 11:24:00 Test Item Value Reference Range Interpretation Comments PARTIAL THROMBOPLASTIN TIME 78.0 seconds 22.5-36.0 H (BEAKER) (test code = 760) POCT-GLUCOSE [id number] 07:58:00 Test Item Value Reference Range Interpretation Comments POC-GLUCOSE METER 102 mg/dL 70-110 : TESTED A T [facility] 6720 (BEAKER) (test code = AUDREY [place], 1538) [address]: Insole Beveler/Techni jenifer ID = [id number] for Alexandra melissadion (contract) Kalpesh lazo BASIC METABOLIC [id number] 07:24:00 Test Item Value Reference Range Interpretation [...] S NOT APPLICABLE FOR DIALYSIS PATIEN TS. Insole Beveler ID - PIAYA [id number] 07:24:00 Test Item Value Reference Range Interpretation Comments MAGNESIUM (BEAKER) (test code = 2.1 mg/dL 1.6-2.6 627) Insole Beveler ID - PIAYA LCBC (HEMOGRAM ONLY)2020-09-28 06:59:00 [...] WBC 0-0 (BEAKER) (test code = 413) [id number] 01:15:00 Test Item Value Reference Range Interpretation Comments PARTIAL THROMBOPLASTIN TIME 32.7 seconds 22.5-36.0 (BEAKER) (test code = 760) POCT-GLUCOSE [id number] 16:51:00 Test Item Value Reference Range Interpretation Comments POC-GLUCOSE METER 107 mg/dL 70-110 : TESTED A T [facility] 6720 (BEAKER) (test code = [place], 1538) [address]: Insole Beveler/Techni jenifer ID = [id number] for Suzanne Huerta rd ECG 12 [id number] 15:06:28Interface, External Ris In - 09/27/2020 3:06 PM CDTVentricular Rate 74 BPMAtrial Rate 74 BPMP-R Interval 366 msQRS Duration 78 msQ-T Interval 394 msQTC Calculation(Bazett) 437 msP [place] 61 degreesR [place] 66 degreesT [place] 196 degreesSinus rhythm with 1st degree A-V blockMinimal ST depression and T wave inversion in I, II and aVL with mild ST elevation in aVR consider ischemiaAbnormal ECGNo previous ECGs availableConfirmed by MD LUZ, ANDREI ([id number]) on 09/27/2020 3:06:24 [facility]2D Echo W/Doppler(CW/PW/Color)2020-09-27 14:02:33Ejection FractionSLEH ECHO HEARTLAB MKCKESSON CPACSInterface, External Ris In - 09/27/2020 2:02 PM CDTTransthoracic Echocardiography Report (TTE) Demographics Patient Name JERE RHODES Date ofStudy 09/27/2020 DARLIN Gender Male Visit Number [id number] Race Unknown RoomNumber 8A07 Number Date of 1935 Referring Franky Mantilla Physician Age 85 year(s) 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 And Conservation Technician Darlene Lares [facility] Marketing Consultant Jovanni Benz Interpreting [facility] Physician James Chirinos MD Procedure Type of [...] LVOT CO: 3.61 l/min LVOT CI: 1.93 l/min/m^2COlympia Medical CenterARS-CoV2/RT-PCR (Asymptomatic ONLY)2020-09-27 13:03:00 Test Item Value Reference Range Interpretation Comments SARS-COV2/RT-PCR Negative Not Detected, (test code = Negative, See 36694-1) external report for linked test SARS-COV-2 [facility] (test code = 36370-3) GRABIEL (test code = Negative result for [...] of the Act. Fact Sheet for Healthcare Providers:https://www.e[employer] Anytime | Anywhere/sites/default/f carmen/product/documents/F act_Sheet_HC_Providers_L anw_MMTG-IrU-6.pdf Fact Sheet for Healthcare Patients:https://www.[employer]/sites/default/fi les/product/documents/Fa ct_Sheet_Patients_Lyra_S ARS-CoV-2.pdf Performing Laboratory:[facility] [place] [address].[place], [place] [address] [place], [place] [address]ARS-COV2/RT-PCR ([facility])2020-09-27 13:03:00 Test Item Value Reference Range Interpretation Comments SARS-COV2/RT-PCR (test Negative Not Detected, Negative, code = 4506793) See external report for linked test SARS-COV-2 PERFORMING LAB [facility] JIMENEZ (test code = 8272449) Negative result for this test determines that [...] 564(g) of the Act.Fact Sheet for Healthcare Providers:https://www.[employer] [place]/sites/default/files/product/documents/Fact_Shee k_XM_Slgnsdbsz_Rgwj_DPMB-ZeQ-9.pdfFact Sheet for Healthcare Patients:https://www.[employer] [place]/sites/default/files/product/ documents/Rlrc_Brcio_Gxfvzlkz_Emwc_ESGY-IqX-6.pdfPerforming Laboratory:[address], [place] [address]XSKT-PAWVURM METER 2020-09-27 11:29:00 Test Item Value Reference Range Interpretation Comments POC-GLUCOSE METER 124 mg/dL 70-110 H : Notified RN/MD: (HANNAH) (test code = TESTED AT [place] [address] 1538) [facility], [address]: Insole Beveler/Techni jenifer ID = [id number] for PH INISEE, DARRYL POCT-GLUCOSE [id number] 08:54:00 Test Item Value Reference Range Interpretation Comments POC-GLUCOSE METER 135 mg/dL 70-110 H : TESTED A T [place] [address] ([facility] (test code = [facility] Whitley [facility], 1538) [address]: Insole Beveler/Techni jenifer ID = [id number] for PH INISEE, DARRYL Vitamin B12 and [id number] 05:55:00 Test Item Value Reference Range Interpretation Comments Vitamin B12 (test 578 pg/mL 213-816 code = 2132-9) Folate (test code = 18.00 ng/mL See_Comment [Automa valentina 2284-8) message] The system which generated this result transmit valentina reference range : >=7.00. The reference range was not used to interpret this result as normal/abnormal . GRABIEL (test code = GRABIEL) Insole Beveler ID - CLARA Grajeda Lab Interpretation Normal (test code = 24708-5) [facility] CenterFerritin2021-08-02 05:55:00 Test Item Value Reference Range Interpretation Comments Ferritin (test code = 35.96 ng/mL 5-275 2276-4) GRABIEL (test code = GRABIEL) Insole Beveler ID Rip Grajeda Lab Interpretation (test Normal code = 63319-0) [facility] CenterFERRITIN2021-08-02 05:55:00 Test Item Value Reference Range Interpretation Comments FERRITIN (BEAKER) (test code = 35.96 ng/mL 5.00-275.00 361) Insole Beveler ID Rip MORAITAMIN B12 AND [id number] 05:55:00 Test Item Value Reference Range Interpretation Comments VITAMIN B12 578 pg/mL 213-816 (BEAKER) (test code = 774) FOLATE (BEAKER) 18.00 ng/mL See_Comment [Automated message] (test code = 362) The system which generated this result transmitted ref erence range: >=7.00. The reference range was not used to interpr et this result as normal/abnormal . Insole Beveler ID Rip Saldanaon, TIBC, % sat. (without ferritin)2020-09-27 05:10:00 Test Item Value Reference Range Interpretation Comments Iron (test code = 2498-4) 37.0 ug/dL 40-160 L TIBC (test code = 2500-7) 404 ug/dL 250-450 Iron % Saturation (test 9 % 20-55 L code = 2502-3) GRABIEL (test code = GARBIEL) Insole Beveler ID - CLARA Grajeda Lab Interpretation (test Abnormal code = 78804-3) [facility] CenterIRON, TIBC, % SAT. (WITHOUT FERRITIN)2020-09-27 05:10:00 Test Item Value Reference Range Interpretation Comments IRON (BEAKER) (test code = 547) 37.0 ug/dL 40.0-160.0 L TOTAL IRON BINDING CAPACITY 404 ug/dL 250-450 (BEAKER) (test code = 769) IRON % SATURATION (2) (BEAKER) 9 % 20-55 L (test code = 2590) Insole Beveler AIYANA ELIZABETH MBASIC METABOLIC [id number] 04:39:00 Test Item Value Reference Range Interpretation [...] S NOT APPLICABLE FOR DIALYSIS PATIEN TS. Insole Beveler ID Rip ELIZABETH [id number] 04:39:00 Test Item Value Reference Range Interpretation Comments MAGNESIUM (BEAKER) (test code = 2.3 mg/dL 1.6-2.6 627) Insole Beveler ID - CLARA [facility] (HEMOGRAM ONLY)2020-09-27 04:22:00 [...] 0-0 (BEAKER) (test code = 413) POCT-GLUCOSE [id number] 23:19:00 Test Item Value Reference Range Interpretation Comments POC-GLUCOSE METER 109 mg/dL 70-110 : TESTED A T [facility] 6720 (BEAKER) (test code = [place], 1538) [address]: Insole Beveler/Techni jenifer ID = [id number] for FRANCIA SANCHES [id number] 13:27:00 Test Item Value Reference Range Interpretation Comments PARTIAL THROMBOPLASTIN TIME 75.7 seconds 22.5-36.0 H (BEAKER) (test code = 760) Hemoglobin [id number] 08:25:00 Test Item Value Reference Range Interpretation Comments Hemoglobin A1C (test code = 4548-4) 6.7 % 4.3-6.1 H Lab Interpretation (test code = Abnormal 01845-0) [facility] CenterHEMOGLOBIN [id number] 08:25:00 Test Item Value Reference Range Interpretation Comments HEMOGLOBIN A1C (BEAKER) (test code = 6.7 % 4.3-6.1 H 368) RAD, CHEST, 1 VIEW, NON [id number] 08:15:00Reason for exam:->shortness of breath Should this be performed at the bedside?->Yes [facility] : 1935 Sex: MFINAL REPORT INDICATION: shortness of breath COMPARISON: None ANTON HNIQUE: Single frontal view of the chest. FINDINGS: Lungs and pleura: Clear lungs. No effusion.Heartand mediastinum: Normal heart size. Unremarkable mediastinal contours.Osseous structures: No acute abnormality.Other: None. IMPRESSION: No acute intrathoracic abnormality. Signed: Yaneth Gifford Verified Date/Time: 09/26/2020 08:15:42 Reading Location: [address] Neuro Reading Room XR chest 1 view portable / [id number] 08:15:00 Interface, External Ris In - 09/26/2020 8:17 AM CDTFINAL REPORT INDICATION: shortness of breath COMPARISON: None TECHNIQUE: Single frontal view of the chest. FINDINGS: Lungs andpleura: Clear lungs. No effusion.Heart and mediastinum: Normal heart size. Unremarkable mediastinal c ontours.Osseous structures: No acute abnormality.Other: None. IMPRESSION: No acute intrathoracic abnormality. Signed: Yaneth Gifford Verified Date/Time: 09/26/2020 08:15:42 Reading Location: [address] Neuro Reading Room [facility]ABOR[facility], [id number] 07:15:00 Test Item Value Reference Range Interpretation Comments ABO Grouping (test code = 2588) B Rh Factor (test code = 2589) POS [facility] CenterType and screen, [id number] 06:19:00 Test Item Value Reference Range Interpretation Comments ABO/RH AUTOMATED (BEAKER) (test B POSITIVE code = 2260) Ab Scrn (test code = 890-4) NEGATIVE [facility] CenterAPTT2021 05:20:00 Test Item Value Reference Range Interpretation Comments PARTIAL THROMBOPLASTIN TIME 111.9 seconds 22.5-36.0 H (BEAKER) (test code = 760) Patient on hep drippingComprehensive metabolic [id number] 05:17:00 Test Item Value Reference Range Interpretation Comments Protein, Total 6.7 See_Comment [Automated (test code = message] The 2885-2) system which generated this result transmit valentina reference range : 6.0 - 8.3 gm/dL . The reference range was not u sed to interpret th is result as normal/abnormal . Albumin (test code 3.6 g/dL 3.5-5 = 95428-9) Alkaline 102 U/L 40-150 Phosphatase (test code = 6768-6) Total Bilirubin 0.4 mg/dL 0.2-1.2 (test code = 1975-2) Sodium (test code = 138 meq/L 508-252 1029-2) Potassium (test 4.0 meq/L 3.5-5.1 code = 2823-3) Chloride (test code 102 meq/L 98-107 = 2075-0) CO2 (test code = 24 meq/L 22-29 2027-9) BUN (test code = 16 mg/dL 7-21 3094-0) Creatinine (test 0.91 mg/dL 0.57-1.25 code = 2160-0) Glucose (test code 103 mg/dL 70-105 = 2345-7) Calcium (test code 9.2 mg/dL 8.4-10.2 = 51010-8) AST (test code = 29 U/L 5-34 1920-8) ALT (test code = 24 U/L 6-55 1742-6) EGFR (test code = 79 mL/min/1.73 [place] [address]-0) NOT ACCURATE CREATININE CLEARANCE IN PREDICTING GLOMERULAR FILTRATION RATE . ESTIMATED GFR I S NOT APPLICABLE FOR DIALYSIS PATIEN GRABIEL (test code = Insole Beveler ID - DB GRABIEL) [facility] [id number] 05:17:00 Test Item Value Reference Range Interpretation Comments Triglycerides (test 90 mg/dL code = 2571-8) Cholesterol (test code 171 mg/dL = 2093-3) HDL (test code = 39 mg/dL 2084-9) LDL Calculated (test 114 mg/dL code = 18884-6) GRABIEL (test code = GRABIEL) Triglyceride Reference Range: Low Risk <150 Borderline 150-199 High Risk 200-499 Very High Risk >=500 Cholesterol Reference Range: Low Risk <200 Borderline 200-239 High Risk >240 HDL Cholesterol Reference Range: Low Risk >=60 High Risk <40 LDL Cholesterol Reference Range: Optimal <100 Near Optimal 100-129 Borderline 130-159 High 160-189 Very High >=190 Insole Beveler ID - DB [facility] CenterCOMPREHENSIVE METABOLIC [id number] 05:17:00 Test Item Value Reference Range Interpretation [...] S NOT APPLICABLE FOR DIALYSIS PATIEN TS. Insole Beveler ID - DBLIPID [id number] 05:17:00 Test Item Value Reference Range Interpretation [...] Borderline 130-159 High 160-189 Very High >=190 Insole Beveler ID - DBB-type Natriuretic Factor (BNP)2020-09-26 05:16:00 Test Item Value Reference Range Interpretation Comments BNP (test code = 70014-3) 686 pg/mL 0-100 H GRABIEL (test code = GRABIEL) Insole Beveler ID - DB Lab Interpretation (test Abnormal code = 09005-6) [facility] NATRIURET[facility] FACTOR (BNP)2020-09-26 05:16:00 Test Item Value Reference Range Interpretation Comments B-TYPE NATRIURETIC PEPTIDE (BEAKER) 686 pg/mL 0-100 H (test code = 700) Insole Beveler ID - DBHigh Sensitivity Troponin [id number] 05:14:00 Test Item Value Reference Range Interpretation Comments Troponin I HS 175 pg/ml See_Comment H [Automated (test code = message] The 87965-8) system which generated this result transmitted reference range : <=35. The reference range was not used to interpret this result as normal/abnormal . GRABIEL (test code = Insole Beveler ID - GRABIEL) DBThe GLASS DECORATOR STAT High Sensitivity Troponin-I results should be used in conjunction with other diagnostic information such as ECG, clinical observations and information, and patient symptoms to aid in the diagnosis of GA. Lab Interpretation Abnormal (test code = 51968-9) [facility] CenterH[facility]ENSITIV[facility] TROPONIN [id number] 05:14:00 Test Item Value Reference Range Interpretation Comments HIGH SENSITIVITY 175 pg/ml See_Comment H [Automated message] TROPONIN I (test code The sy stem which = 2596472) generated this result transmitted ref erence range: <=35. Th e reference range was not used to int erpret this result as normal/abnormal . Insole Beveler ID - DBThe GLASS DECORATOR STAT High Sensitivity Troponin-I results should be used in conjunctionwith other diagnostic information such as ECG, clinical observations and information, and patient symptoms to aid in the diagnosis of GA.Prothrombin time/[id number] 05:07:00 Test Item Value Reference Interpretation Comments Range Protime (test code = 15.6 See_Comment H [Autom ated 3347-2) message] The system which generated this result transmitted reference range : 11.9 - 14.2 seconds. The reference range was not used to interpret this result as normal/abnormal . INR (test code = 1.26 See_Comment [Automated 9373-6) message] The system which generated this result [...] valves. Lab Interpretation Abnormal (test code = 62493-7) [facility] CenterPROTHROMBIN TIME/[id number] 05:07:00 Test Item Value Reference Range Interpretation Comments PROTIME (BEAKER) 15.6 seconds 11.9-14.2 H (test code = 759) INR (BEAKER) (test 1.26 See_Comment [Automat ed message] code = 370) The system Answer.Toic h generated this result transmitted ref erence range: [...] 4.1 See_Comment [A utomated message] The system [employer] generated this result transmitted ref erence range: 3.5 - 10 .5 K/L. The refe rence range was not u sed to interpret this result as normal/abnor mal. RBC (test code = 789-8) 3.65 See_Comment L [Au tomated message] The system [employer] generated this result transmitted ref erence range: 4.63 - 6 .08 M/L. The refe rence range was not u sed to interpret this result as normal/abnor mal. MCHC (test code = 786-4) 31.2 See_Comment L [A utomated message] The system [employer] generated this result transmitted ref erence range: [...] L [Aut omated message] 777-3) The system [employer] generated this result transmitted ref erence range: 150 - 45 0 K/CU MM. The referen ce range was not u sed to interpret this result as normal/abnor mal. MPV (test code = 10.3 fL 9.4-12.4 51493-4) nRBC (test code = 413) 0 See_Comment [Aut omated message] The system [employer] generated this result transmitted ref erence range: [...] See_Comment [Aut omated message] 670) The system [employer] generated this result transmitted ref erence range: 1.78 - 5 .38 K/L. The refe rence range was not u sed to interpret this result as normal/abnor mal. # Lymphs (test code = 1.01 See_Comment L [Auto mated message] 414) The system [employer] generated this result transmitted ref erence range: 1.32 - 3 .57 K/L. The refe rence range was not u sed to interpret this result as normal/abnor mal. # Monos (test code = 0.44 See_Comment [Autom ated message] 415) The system [employer] generated this result transmitted ref erence range: 0.30 - 0 .82 K/L. The refe rence range was not u sed to interpret this result as normal/abnor mal. # Eos (test code = 416) 0.16 See_Comment [Au tomated message] The system [employer] generated this result transmitted ref erence range: 0.04 - 0 .54 K/L. The refe rence range was not u sed to interpret this result as normal/abnor mal. # Baso (test code = 417) 0.02 See_Comment [A utomated message] The system [employer] generated this result transmitted ref erence range: 0.01 - 0 .08 K/L. The refe rence range was not u sed to interpret this result as normal/abnor mal. Immature 0 % 0-1 Granulocytes-Relative (test code = 2801) Lab Interpretation (test Abnormal code = 49947-7) [facility] W/PLT COUNT & AUTO DFSYRLTEYBRS4466-09-02 04:49:00 Test Item Value Reference Range Interpretation [...] Not Detected Not Detected (test code = 43119-9) GRABIEL (test code = GRABIEL) ID NOW COVID-19 Assay is an isothermal nucleic acid amplification test intended for the qualitative detection of nucleic acid from SARS-CoV-2 viral RNA in nasopharyngeal (SECURITY SERGEANT) specimens. It is used under Emergency Use [...] indicated. Lab Interpretation Normal (test code = 39009-2) [facility] WITH [id number] 19:54:17 Test Item Value Reference Range Interpretation Comments WBC (test code = See_Comment [Automated 0819-2) message] The sy stem which generated this result transmitted reference range : 4.20 - 10.70 10*3/?L. The reference range was not used to interpret this result as normal/abnormal . RBC (test code = See_Comment L [Automated 509-8) message] The sy stem which generated this [...] (test code = 52.3 fL 38.5-51.6 H 50657-5) RDW-CV (test code = 15.1 % 12.1-15.4 788-0) PLT (test code = See_Comment [Automated 777-3) message] The sy stem which generated this result transmitted reference range : 150 - 328 10*3/ ?L. The reference r sheryl was not used to interpret this result as normal/abnormal . MPV (test code = 10.2 fL 9.8-13.0 60613-2) NRBC/100 WBC (test See_Comment [Automat ed code = 6023372567) message] The system which generated this result transmitted reference range : 0.0 - 10.0 /100 WBCs. The refer ence range was not u sed to interpret th is result as normal/abnormal . NRBC x10^3 (test code <0.01 See_Comment [Auto mated = [id number]) message] The s ystem which generated this result transmitted reference range : 10*3/?L. The reference range was not used to interpret this result as normal/abnormal . GRAN MAT (NEUT) % 59.2 % (test code = 770-8) IMM GRAN % (test code 0.40 % = 5524944352) LYMPH % (test code = 26.7 % 736-9) MONO % (test code = 10.6 % 5905-5) EOS % (test code = 2.7 % 713-8) BASO % (test code = 0.4 % 706-2) GRAN MAT x10^3(ANC) 2.63 10*3/uL 1.99-6.95 (test code = 9989886323) IMM GRAN x10^3 (test <0.03 0.00-0.06 code = 0861394934) LYMPH x10^3 (test code 1.19 10*3/uL 1.09-3.23 = 731-0) MONO x10^3 (test code 0.47 10*3/uL 0.36-1.02 = 742-7) EOS x10^3 (test code = 0.12 10*3/uL 0.06-0.53 711-2) BASO x10^3 (test code <0.03 0.01-0.09 = 704-7) Lab Interpretation Abnormal (test code = 30782-0) [facility] JNCVP1520[facility]23-96 00:22:00Yellow *NA*(01/15/19 6:22 PM)[facility] MQZOD4185-25-08 00:22:00Clear (01/15/19 6:22 PM)[facility] JYKVJ4626-84-96 00:22:00 Test Item Value Reference Range Interpretation Comments UA Spec Grav (test code = UA Spec 1.023 1 Grav) [facility] QEVFA5281-76-86 00:22:00 Test Item Value Reference Range Interpretation Comments UA pH (test code = UA pH) 5.0 1 5.0-8.0 [facility] JJNCR0142-45-31 00:22:00Negative (01/15/19 6:22 PM) [facility] RHSLC1818-19-42 00:22:00Negative *NA*(01/15/19 6:22 PM)[facility] OVCYS1864-37-08 00:22:00Negative *NA*(01/15/19 6:22 PM)[facility] VCVRT0478-08-09 00:22:00Negative (01/15/19 6:22 PM) [facility] WLQWJ0794-91-64 00:22:00Negative (01/15/19 6:22 PM) [facility] XGHMH6295-51-44 00:22:00Negative (01/15/19 6:22 PM) [facility] EKDIE4805-28-26 00:22:00None Seen (01/15/19 6:22 PM) [facility] QWUDG1904-78-87 00:22:001[facility] JNEPT0763-32-70 00:22:001[facility] MRJPS3465-52-97 00:22:00 Yellow *NA*(01/15/19 6:22 PM)[facility] DMWTG8978-38-02 00:22:00 Clear (01/15/19 6:22 PM)[facility] LHSEA8507-71-20 00:22:00 Test Item Value Reference Range Interpretation Comments UA Spec Grav (test code = UA Spec 1.023 1 Grav) [facility] VEIZR1215-35-52 00:22:00 Test Item Value Reference Range Interpretation Comments UA pH (test code = UA pH) 5.0 1 5.0-8.0 [facility] DBZVH6856-52-95 00:22:00Negative (01/15/19 6:22 PM) [facility] MZYRP0421-86-31 00:22:00Negative *NA*(01/15/19 6:22 PM)[facility] OICNA3649-96-30 00:22:00Negative *NA*(01/15/19 6:22 PM)[facility] VLINO6942-40-68 00:22:00Negative (01/15/19 6:22 PM) [facility] JODZJ1290-78-45 00:22:00Negative (01/15/19 6:22 PM) [facility] GOAUS8999-25-96 00:22:00Negative (01/15/19 6:22 PM) [facility] GBCKN0349-55-86 00:22:00None Seen (01/15/19 6:22 PM) [facility] WSNRY1683-49-58 00:22:001[facility] QEZDD2916-02-76 00:22:001[facility] ATWTY7922-11-89 00:22:00 Yellow *NA*(01/15/19 6:22 PM)[facility] BYWSE1259-34-05 00:22:00 Clear (01/15/19 6:22 PM)[facility] HQNLC9908-83-02 00:22:00 Test Item Value Reference Range Interpretation Comments UA Spec Grav (test code = UA Spec 1.023 1 Grav) [facility] BCJOE3478-05-73 00:22:00 Test Item Value Reference Range Interpretation Comments UA pH (test code = UA pH) 5.0 1 5.0-8.0 [facility] [id number] 00:22:00Negative (01/15/19 6:22 PM) [facility] CJNAI0146-21-48 00:22:00Negative *NA*(01/15/19 6:22 PM)[facility] GOHQY0491-74-08 00:22:00Negative *NA*(01/15/19 6:22 PM)[facility] QNIIM0535-20-44 00:22:00Negative (01/15/19 6:22 PM) [facility] TXAZU1157-30-77 00:22:00Negative (01/15/19 6:22 PM) [facility] GIFJK4228-36-41 00:22:00Negative (01/15/19 6:22 PM) [facility] DRMIF0466-66-63 00:22:00None Seen (01/15/19 6:22 PM) [facility] LSGHD9424-81-64 00:22:001[facility] LIRCS1390-83-88 00:22:001[facility]CHE[facility] LZBML5478-31-44 10:48:002.3 [facility] EMCVG1773-84-46 10:48:003.0[facility]annELECTROLYTES 2019-01-14 10:48:0010.3[facility] NugagpbTFDMNCKNQUQA5292-73-27 10:48:91590 [facility] XvctrlfTSDFHZUGGCNM8748-94-05 10:48:0015[facility]annELECTROLYTES 2019-01-14 10:48:000.69[facility] GveihymIORDIMDMUMOS8098-44-60 10:48:73885 [facility] WmfuadqQDQHUDWVHZTH4590-05-68 10:48:004.3[facility]annELECTROLYTES 2019-01-14 10:48:75881Qlfhqopp DbhmredROFPMGHFPUGF6195-03-15 10:48:0026[facility] VebsceaABZYOPALEPGM8464-08-07 10:48:008.9[facility] AcxjmphVNCCEHUAVTWC4215-06-83 10:48:0087[facility] DhngbkuKMRYCWSFZF5100-39-21 10:48:002.6[facility] NWUZJXOXAV7232-80-54 10:48:003.79[facility] AymvisvBUDUOVFCID3478-76-80 10:48:00 11.1[facility] YiewtsdQPWDNKWCDQ9335-45-51 10:48:0034.9[facility]annHEMATOLOGY 2019-01-14 10:48:0092.0[facility] KyzqyelVADZGXDDHF4944-29-29 10:48:00 Test Item Value Reference Range Interpretation Comments MCH (test code = MCH) 29.3 pg 27.0-31.0 [facility] HlmnewhVDDBTRNLLI4135-33-62 10:48:0031.8[facility]annHEMATOLOGY 2019-01-14 10:48:0016.5[facility] SrohhxyJDSGXDUKDZ5260-68-50 10:48:53105Zhxrmctv ZrucaafZFIXSQNLSH4341-25-25 10:48:008.3[facility] WswspnsYGAKMYFQSP8242-91-27 10:48:0066.8[facility] EaryshwXDMYLMDSPE7278-49-91 10:48:0012.6[facility] WEERIBYGDA2097-25-14 10:48:008.4[facility] FqwrhsfQTXLCEEQJK8597-72-65 10:48:00 11.5[facility] VqheyawKSEFHJARFG8815-95-64 10:48:000.7[facility]annHEMATOLOGY 2019-01-14 10:48:001.7[facility] CykiekeBVINKHGTNX7140-60-77 10:48:000.3[facility] QzshphbIRWDZXGCEI7564-05-56 10:48:000.2[facility] NblodcgXPPAWODMKB6071-42-19 10:48:000.3[facility] FjhndrwTXGTMPRKTBSO6113-18-42 10:48:0087[facility] RMAHOQJBRN5996-98-96 10:48:002.6[facility] MrxovumGMJITOIJXO9504-12-58 10:48:00 3.79[facility] NhfyzvgQQVPJMBKZW9715-33-80 10:48:0011.1[facility]annHEMATOLOGY 2019-01-14 10:48:0034.9[facility] WdeazkjZKECVJYBJW8044-77-42 10:48:0092.0[facility] WaeibyfZYOWXDMLLB2674-33-37 10:48:00 Test Item Value Reference Range Interpretation Comments MCH (test code = MCH) 29.3 pg 27.0-31.0 [facility] OgxxjbbIGKLHFTESZ7906-65-11 10:48:0031.8[facility]annHEMATOLOGY 2019-01-14 10:48:0016.5[facility] ZorvnoxNBRZHYJVAE2351-05-25 10:48:14462Lwshjwvx VeljopmOGHTPYUKPE4748-73-45 10:48:008.3[facility] EzgwbmeEIFYXMMWNE3809-40-20 10:48:0066.8[facility] NtuvoqlECMITPPUQK8218-87-03 10:48:0012.6[facility] GUNNYXSROU6269-37-81 10:48:008.4[facility] BjzpmqsMGMIPPMFLC7172-74-23 10:48:00 11.5[facility] PcyatrdZRPNHMBFDV9570-42-01 10:48:000.7[facility]annHEMATOLOGY 2019-01-14 10:48:001.7[facility] ShoqkxhGPTIEAKSTL1443-32-61 10:48:000.3[facility] FsmlfusYMNLBKDHLL4912-51-84 10:48:000.2[facility] WpjkwdqUAPRYQBTKX2752-70-02 10:48:000.3[facility]annCHEM VKFTC4278-22-68 10:48:002.3[facility] HermannCHEM NTQAI7754-26-70 10:48:003.0[facility] VoqxeytVRKVNYLGEGGM1689-86-55 10:48:0010.3 [facility] YetcxusQJNTWOIPQIAX0849-92-46 10:48:59481Yrywicbn HermannELECTROLYTES 2019-01-14 10:48:0015[facility] CdhtlwnUUYBHIUQAVMS8104-59-19 10:48:000.69[facility] RfrjspcEWHPRSONQVFH5034-19-95 10:48:21127Pusrbeiw OcwruhqLWAXTJDBALDA4497-60-22 10:48:004.3[facility] IlajedlLCMADDRKCZRF5406-30-13 10:48:64872Apxsswgo [facility] SQYQIJXNRHXP4102-84-69 10:48:0026[facility] ShlipogQLXTUFWDDLZJ0690-70-01 10:48:00 8.9[facility] QaofzlmPRHFRJUWKZHP6918-88-64 10:48:0087[facility]annHEMATOLOGY 2019-01-14 10:48:002.6[facility] YhufvcwHBJHTSLUVF7558-54-75 10:48:003.79[facility] ZqcyjflQQUHQDYGXZ7285-59-50 10:48:0011.1[facility] BwmcvlzSRDMVRNLZT2689-73-00 10:48:0034.9[facility] YmsnvdoVJBXUMRQBP4378-69-32 10:48:0092.0[facility] PWRCNZTLAD9743-92-62 10:48:00 Test Item Value Reference Range Interpretation Comments MCH (test code = MCH) 29.3 pg 27.0-31.0 [facility] HqqddxmXSRWGKSCNG3376-60-12 10:48:0031.8[facility]annHEMATOLOGY 2019-01-14 10:48:0016.5[facility] RncavvuUXEGPXUMRT1901-02-94 10:48:94248Jzfdgqnb SbaorvcMLPAPCRQLI0613-77-40 10:48:008.3[facility] CseapdiLDMPCNFUWP9616-90-71 10:48:0066.8[facility] WqmwrnaLCWGJRXXXQ2418-96-82 10:48:0012.6[facility] RXNCMUZOGT6496-27-80 10:48:008.4[facility] LgratkcNDCGLFQVRB2748-53-74 10:48:00 11.5[facility] KksemamRJXJJOQRLQ3090-71-26 10:48:000.7[facility]annHEMATOLOGY 2019-01-14 10:48:001.7[facility] UusziggEJKSJTWNMM4126-45-52 10:48:000.3[facility] PqbbmvlWMONATNTAA7754-75-50 10:48:000.2[facility] AedlztqTUBZGNVHEQ2051-65-32 10:48:000.3[facility]annCHEM NXXLW9437-77-70 10:48:002.3[facility] HermannCHEM PIBAN9788-51-59 10:48:003.0[facility] IsqinvsSCYMADJRLPBQ4650-00-49 10:48:0010.3 [facility] TzvujykEGYAICTCOPKB9378-95-50 10:48:80736Cgphgccl HermannELECTROLYTES 2019-01-14 10:48:0015[facility] JalnpavBTKQOAGFDWXY7564-74-92 10:48:000.69[facility] AajtcwkVITHJZJBBRRM2095-42-13 10:48:30984Jczwvehl VicovhpIUPFRJBSHMQF0981-78-94 10:48:004.3[facility] EwnwdmjXYNFISYJZARE2787-39-05 10:48:08141Hgtdesfg Philip SLDEKKZBPAZV7833-56-39 10:48:0026[facility] XktgjqbYOYFKPELFWKE1244-97-00 10:48:00 8.9[facility]annCHEM XERPP7054-88-63 10:15:002.0[facility]annCHEM PANEL 2019-01-13 10:15:003.6[facility]annCHEM QVRWV3991-78-30 10:15:04217Mxqovhek HermannCHEM DENLA5548-05-45 10:15:009[facility]annCHEM MLWIG7676-79-85 10:15:000.71[facility]annCHEM VZZNN1705-33-82 10:15:58092Bzieuetf HermannCHEM NPSZG6130-80-80 10:15:004.2[facility]annCHEM GFNVX8966-88-37 10:15:03824 [facility]annCHE[facility] MTLXC3122-78-63 10:15:0027[facility]annCHEM PANEL 2019-01-13 10:15:0010.2[facility]annCHEM ZLVNF7421-43-54 10:15:008.9[facility]annCHEM WDOTO9262-33-41 10:15:0086[facility] CnpcdogNXMQPKBIQM7150-16-66 10:15:0063.6[facility] FomqqyqTWECUOYBVC1353-92-32 10:15:0019.5[facility] SMBAYHRLWK6935-37-61 10:15:0011.0[facility] BkodlkjOOABQBNDVG2615-75-96 10:15:00 5.2[facility] GvsguurTKNHGOROGN8473-34-27 10:15:000.7[facility]annHEMATOLOGY 2019-01-13 10:15:001.4[facility] QpsbakpWYAUCWTHUC5997-37-70 10:15:000.4[facility] LowrvltXDBKOQREEC8753-20-73 10:15:000.2[facility] SdhlrevZJJLODCYAU6633-01-62 10:15:000.1[facility] XswoknuRMRFGAEDHW4683-06-48 10:15:002.2[facility] YAKNZQQWHH3202-07-18 10:15:003.60[facility] OilhngaBCAVINCAIM5794-37-30 10:15:00 10.8[facility] WuusstmDSWYMVCAVV2217-73-77 10:15:0033.4[facility]annHEMATOLOGY 2019-01-13 10:15:0092.9[facility] LlozrepBXXQOYPGZK0521-52-83 10:15:00 Test Item Value Reference Range Interpretation Comments MCH (test code = MCH) 30.1 pg 27.0-31.0 [facility] SfyviwoWFKGAAMDBY2484-57-11 10:15:0032.4[facility]annHEMATOLOGY 2019-01-13 10:15:0017.0[facility] PdbozroSHUCUDKXLZ2896-29-89 10:15:39298Iobcfopb IoxawohHFWTRMYEDZ1518-17-01 10:15:008.0[facility] HermannCHEM FEZTI7566-07-87 10:15:002.0[facility]annCHEM WYKGD5027-31-23 10:15:003.6[facility]annCHEM YAGIV6065-91-22 10:15:97102Dlpjdnvs HermannCHEM DNBZM7842-56-59 10:15:009 [facility]annCHEM KKJYQ0112-80-96 10:15:000.71[facility]annCHEM PANEL 2019-01-13 10:15:81151Mkqsdist HermannCHEM ACXYU1402-86-79 10:15:004.2[facility] HermannCHEM BFCNL5994-34-59 10:15:90036Zflvknih HermannCHEM TOTYR5920-64-12 10:15:0027[facility]annCHEM XYAYX7742-89-14 10:15:0010.2[facility]annCHEM PJODJ3054-51-83 10:15:008.9[facility]annCHEM HWTIY7987-36-49 10:15:0086 [facility] HkxwlwrQUXOGMBUMK1159-47-59 10:15:0063.6[facility]annHEMATOLOGY 2019-01-13 10:15:0019.5[facility] SlbyizmHGVGGJXDBC4861-59-43 10:15:0011.0[facility] NisikytGHJPZAKFZC4107-87-04 10:15:005.2[facility] ZcyesptEBLYQTNHIO0557-70-00 10:15:000.7[facility] NhmyqufXGOORSQDOS3050-58-72 10:15:001.4[facility] GTPOKAFBDD8384-86-32 10:15:000.4[facility] KnlqvnkZJFBITBLSH6735-62-99 10:15:000.2 [facility] EfjokefGLVFPJRSIM0188-82-38 10:15:000.1[facility]annHEMATOLOGY 2019-01-13 10:15:002.2[facility] XfelbixSMWHTWHBHJ3908-41-21 10:15:003.60[facility] ZnigurlTKIGXERRXG6758-08-07 10:15:0010.8[facility] GxyncmoSJUKBKDQSS1398-28-03 10:15:0033.4[facility] CtvqtxdMATMRGAKSO3024-72-79 10:15:0092.9[facility] KKQTZVKXZB7740-78-17 10:15:00 Test Item Value Reference Range Interpretation Comments MCH (test code = MCH) 30.1 pg 27.0-31.0 [facility] AanphunWVEDAMTVGY0518-96-40 10:15:0032.4[facility]annHEMATOLOGY 2019-01-13 10:15:0017.0[facility] BgmldkxEBVYZVGSCV5632-13-25 10:15:91129Upysxzly VkxoqrwCMMECFPEZP4492-93-69 10:15:008.0[facility]annCHEM UNGUC7195-25-00 10:15:002.0[facility]annCHEM VHXIR7029-61-04 10:15:003.6[facility]annCHEM CWCQR4954-48-39 10:15:14229Gfrngmez HermannCHEM MSGMV7844-56-33 10:15:009 [facility]annCHE[facility] ASUUB8566-94-01 10:15:000.71[facility]annCHEM PANEL 2019-01-13 10:15:50343Jwyqczen HermannCHEM JZGKP1400-38-98 10:15:004.2[facility]annCHEM PCSNQ3699-33-37 10:15:30214Lgwkdeps HermannCHEM CJLPS3285-34-97 10:15:0027[facility]annCHEM VFBYF5980-23-60 10:15:0010.2[facility]annCHEM XQIPJ0462-71-02 10:15:008.9[facility]annCHEM GYDLY3584-10-70 10:15:0086 [facility] XkzyqduRYERRWPEFH3845-01-63 10:15:0063.6[facility] HermannHEMATOLOGY 2019-01-13 10:15:0019.5[facility] TcakyivMKNKWGDMQL5220-86-30 10:15:0011.0[facility] JkpxvdgZRFPMYQXLR5819-44-64 10:15:005.2[facility] WoupgtgTVKJQHXKUU4898-93-94 10:15:000.7[facility] DpmrdhgUGFYJIJRZZ4917-63-86 10:15:001.4[facility] HIKTNLJLDV1292-50-80 10:15:000.4[facility] EbfavuiPWAIABWTEV5808-22-14 10:15:000.2 [facility] FsewebtSYDSXTPSHO7991-72-62 10:15:000.1[facility] HermannHEMATOLOGY 2019-01-13 10:15:002.2[facility] CanbqojACXXDNGNSL7105-66-70 10:15:003.60[facility] FlgvhjhMIZFCDHZQW7928-37-56 10:15:0010.8[facility] EimyszgMWSYPIGAEL0687-57-30 10:15:0033.4[facility] NkrehoeQMRKSRGTCY7691-15-28 10:15:0092.9[facility] PPXKTNKHFQ8416-11-20 10:15:00 Test Item Value Reference Range Interpretation Comments MCH (test code = MCH) 30.1 pg 27.0-31.0 [facility] ZuczzydUOZORSMJDQ1678-50-62 10:15:0032.4[facility] HermannHEMATOLOGY 2019-01-13 10:15:0017.0[facility] UrvhgqbTWMGVTVLQK1129-20-70 10:15:55802Ekpuvylx UkfhalpTLNRTGCGIG9475-35-68 10:15:008.0[facility] HermannCHEM PCAMC0613-45-04 10:43:66117Capviils HermannCHEM KMSHN8313-97-90 10:43:007[facility]annCHEM AKWJB8378-76-85 10:43:000.69[facility]annCHEM NYQPO5873-87-08 10:43:79411 [facility]annCHEM LOHSY5952-44-56 10:43:004.3[facility]annCHEM PANEL 2019-01-12 10:43:80105Akfqilmy HermannCHEM CCVMJ5406-70-16 10:43:0026[facility]annCHEM MRLHW4266-91-40 10:43:008.5[facility]annCHEM BKSMI8961-44-33 10:43:0087[facility]annCHEM YMBJX5412-63-64 10:43:0011.3[facility]annCHEM ITCYR5692-35-23 10:43:001.9[facility]annCHEM NKOZW9629-22-85 10:43:002.8 [facility] TnqnlohCQXWQJZKTB8601-90-17 10:43:003.7[facility] HermannHEMATOLOGY 2019-01-12 10:43:003.68[facility] IewkzzhQBNJXQSYGP8282-70-48 10:43:0011.0[facility] MqjwaohWGZZIIVTKT0025-10-01 10:43:0033.9[facility] RfkbeqkLDYGTKUUHE6312-69-87 10:43:0092.1[facility] NzsuvtzYMXSKIKGZE2754-11-11 10:43:00 Test Item Value Reference Range Interpretation Comments MCH (test code = MCH) 30.0 pg 27.0-31.0 [facility] GpsikoiXNYDFLQMDF6926-14-32 10:43:0032.6[facility] HermannHEMATOLOGY 2019-01-12 10:43:0016.7[facility] OuilgwsHOUMWISWHK0430-97-43 10:43:91841Jhmtbqrf SeglfzpEUIQLEOXWF5819-46-25 10:43:008.2[facility] TswaqweBSZZDKVJNH5957-77-99 10:43:0076.8[facility] EyjvnieSCOPBVTFUD6801-37-45 10:43:009.9[facility] STKRICHGZV3353-97-63 10:43:0011.8[facility] QrfyjtrTUDEMEXDLH1301-61-80 10:43:00 1.2[facility] KlqbfboBCCLKWEAHZ8846-66-46 10:43:000.3[facility] HermannHEMATOLOGY 2019-01-12 10:43:002.8[facility] EalchqdHLOUCOIIFU1029-76-46 10:43:000.4[facility] UjdixtlGXEUZRCNXD4269-27-65 10:43:000.4[facility] HermannCHEM MZQKL7540-47-65 10:43:72302Ttgffeat HermannCHEM BCKQX2666-62-21 10:43:007[facility]annCHEM ISDGJ3643-53-16 10:43:000.69[facility]annCHEM GVUJB2426-85-25 10:43:26603 [facility]annCHEM UXAFX3645-26-28 10:43:004.3[facility] HermannCHEM PANEL 2019-01-12 10:43:40252Izlvhnim HermannCHEM ZORNB9571-07-75 10:43:0026[facility]annCHEM TEVAE6335-20-72 10:43:008.5[facility]annCHEM PLOIH6141-97-90 10:43:0087[facility]annCHEM QNHYR2994-46-27 10:43:0011.3[facility]annCHEM VOZUM7938-58-01 10:43:001.9[facility]annCHEM TISHI0050-63-61 10:43:002.8 [facility] CusfsdlYEDUPFXWZS0136-11-87 10:43:003.7[facility]annHEMATOLOGY 2019-01-12 10:43:003.68[facility] SfbqwaqIHHGRJXLHO4026-93-10 10:43:0011.0[facility] OtegqkeYYUXBDAOXM6618-57-65 10:43:0033.9[facility] VchdneeLSAYZOJALT2472-76-86 10:43:0092.1[facility] IxmgwtnCVDZMDCYYR3381-41-30 10:43:00 Test Item Value Reference Range Interpretation Comments MCH (test code = MCH) 30.0 pg 27.0-31.0 [facility] KpwvgabWNXXKIEQVF2382-33-55 10:43:0032.6[facility]annHEMATOLOGY 2019-01-12 10:43:0016.7[facility] UaelbbcLDRFFVVQEE5620-73-81 10:43:25684Eflcqnfr KiuvplfGLBRWZFFHL9229-46-54 10:43:008.2[facility] RsycupuISDJUXFWOE3957-24-41 10:43:0076.8[facility] ZlnhnknBICAHHXSPL5704-40-53 10:43:009.9[facility] MQRRPZJMEC8008-96-22 10:43:0011.8[facility] QsbuhezDWJMAVFBWM7873-44-03 10:43:00 1.2[facility] BnxhrtvGYOATPUIXC4758-13-69 10:43:000.3[facility]annHEMATOLOGY 2019-01-12 10:43:002.8[facility] SftwbxmMMRSXPEENQ5033-09-10 10:43:000.4[facility] MeeominQHQTYVQRKN8739-26-23 10:43:000.4[facility] HermannCHEM RXYRN6379-38-22 10:43:16233Lvptduyp HermannCHEM DCRNN1134-44-41 10:43:007[facility]annCHEM IQNIF8578-29-53 10:43:000.69[facility]annCHEM PKOIG1686-55-36 10:43:25045 [facility]annCHE[facility] CWJRX6234-57-99 10:43:004.3[facility]annCHEM PANEL 2019-01-12 10:43:18170Fpsuapzw HermannCHEM WUKSV9457-89-45 10:43:0026[facility]annCHEM MBZDW1762-04-55 10:43:008.5[facility]annCHEM PUIPR3946-16-06 10:43:0087[facility]annCHEM DEMYB9957-51-21 10:43:0011.3[facility]annCHEM SMNKE6993-63-49 10:43:001.9[facility]annCHEM GVZEU0905-24-45 10:43:002.8 [facility] AwbgdrhONJYLBCSJD8142-10-64 10:43:003.7[facility]annHEMATOLOGY 2019-01-12 10:43:003.68[facility] KruhdpfNDPNDCWIWE6428-17-74 10:43:0011.0[facility] NdcgodoHKYKUCRMOA0800-79-60 10:43:0033.9[facility] UyjgrvvMECUYZLMNL8568-09-91 10:43:0092.1[facility] FvfbznhIDFAWPKBBF7627-82-00 10:43:00 Test Item Value Reference Range Interpretation Comments MCH (test code = MCH) 30.0 pg 27.0-31.0 [facility] FvhsaqjMDRUFTGEPU7109-19-39 10:43:0032.6[facility]annHEMATOLOGY 2019-01-12 10:43:0016.7[facility] MdvjjndXNTDBFYNBQ6759-74-30 10:43:13682Kirhghkq AfuvzxfQGOKWAUFTG4013-17-61 10:43:008.2[facility] IdzvzznBQHUZLXGVV4796-28-71 10:43:0076.8[facility] VfdwztjDSQOCPIZRV8315-65-84 10:43:009.9[facility] IAOICCFCCQ3765-08-07 10:43:0011.8[facility] GttmjhvMECWRVHXBX0193-87-58 10:43:00 1.2[facility] AywvnqdEPRMTXHNFX4548-52-81 10:43:000.3[facility]annHEMATOLOGY 2019-01-12 10:43:002.8[facility] CythvjyAMDPNOCDCV4890-98-03 10:43:000.4[facility] VyzxxccLBMXMXOPZO7025-05-95 10:43:000.4[facility] HermannBACTERIAL - SEROLOGY 2019-01-10 09:33:00Urine *NA*(01/10/19 3:33 AM)[facility]annBACTERIAL - FYGDXHOB9844-24-81 09:33:00Negative (01/10/19 3:33 AM)[facility] AZHJG0658-67-29 09:33:00Yellow *NA*(01/10/19 3:33 AM)[facility] TPKMH7404-05-90 09:33:00Clear (01/10/19 3:33 AM)[facility] STOOL 2019-01-10 09:33:00 Test Item Value Reference Range Interpretation Comments UA Spec Grav (test code = UA Spec 1.014 1 Grav) [facility] [id number] 09:33:00 Test Item Value Reference Range Interpretation Comments UA pH (test code = UA pH) 5.0 1 5.0-8.0 [facility] TMKAR3350-46-01 09:33:00Negative (01/10/19 3:33 AM) [facility] QJYAR9262-65-73 09:33:00Negative *NA*(01/10/19 3:33 AM)[facility] BFPKQ5158-86-60 09:33:00Trace *ABN*(01/10/19 3:33 AM)[facility] ENKCB6332-55-68 09:33:00Negative *NA*(01/10/19 3:33 AM)[facility] DYGEV4911-74-57 09:33:00Negative (01/10/19 3:33 AM) [facility] UCHTJ0644-03-64 09:33:00Negative (01/10/19 3:33 AM) [facility] SZHXA3712-39-15 09:33:00Negative (01/10/19 3:33 AM) [facility] UKSRW0296-21-68 09:33:00None Seen (01/10/19 3:33 AM) [facility] IGWYS8586-26-82 09:33:00<1[facility] BFXJY3001-82-74 09:33:00<1[facility]annBACTERIAL - ZZJULBQK4366-92-65 09:33:00Urine *NA*(01/10/19 3:33 AM)[facility]BACT[facility] - SEROLOGY 2019-01-10 09:33:00Negative (01/10/19 3:33 AM)[facility] STOOL 2019-01-10 09:33:00Yellow *NA*(01/10/19 3:33 AM)[facility] STOOL 2019-01-10 09:33:00Clear (01/10/19 3:33 AM)[facility] STOOL 2019-01-10 09:33:00 Test Item Value Reference Range Interpretation Comments UA Spec Grav (test code = UA Spec 1.014 1 Grav) [facility] [id number] 09:33:00 Test Item Value Reference Range Interpretation Comments UA pH (test code = UA pH) 5.0 1 5.0-8.0 [facility] [id number] 09:33:00Negative (01/10/19 3:33 AM) [facility] [id number] 09:33:00Negative *NA*(01/10/19 3:33 AM)[facility] EHWGN8468-07-34 09:33:00Trace *ABN*(01/10/19 3:33 AM)[facility] HPBQU6618-87-25 09:33:00Negative *NA*(01/10/19 3:33 AM)[facility] [id number] 09:33:00Negative (01/10/19 3:33 AM) [facility] GZNGM8518-02-72 09:33:00Negative (01/10/19 3:33 AM) [facility] RWUHN2525-10-85 09:33:00Negative (01/10/19 3:33 AM) [facility] OVZSG5641-51-75 09:33:00None Seen (01/10/19 3:33 AM) [facility] OSYBH9446-27-35 09:33:00<1[facility] KODPV0535-34-04 09:33:00<1[facility]annBACTERIAL - ABWLNWKE5950-18-32 09:33:00Urine *NA*(01/10/19 3:33 AM)[facility]annBACT[facility] - SEROLOGY 2019-01-10 09:33:00Negative (01/10/19 3:33 AM)[facility] STOOL 2019-01-10 09:33:00Yellow *NA*(01/10/19 3:33 AM)[facility] STOOL 2019-01-10 09:33:00Clear (01/10/19 3:33 AM)[facility] STOOL 2019-01-10 09:33:00 Test Item Value Reference Range Interpretation Comments UA Spec Grav (test code = UA Spec 1.014 1 Grav) [facility] [id number] 09:33:00 Test Item Value Reference Range Interpretation Comments UA pH (test code = UA pH) 5.0 1 5.0-8.0 [facility] [id number] 09:33:00Negative (01/10/19 3:33 AM) [facility] YQYON5746-24-33 09:33:00Negative *NA*(01/10/19 3:33 AM)[facility] YUJYD4773-82-38 09:33:00Trace *ABN*(01/10/19 3:33 AM)[facility] EYKEA9093-07-63 09:33:00Negative *NA*(01/10/19 3:33 AM)[facility] CLTOF8375-04-76 09:33:00Negative (01/10/19 3:33 AM) [facility] NKYHL7327-41-26 09:33:00Negative (01/10/19 3:33 AM) [facility] CVMFE6974-75-91 09:33:00Negative (01/10/19 3:33 AM) [facility] AQCRM4458-88-82 09:33:00None Seen (01/10/19 3:33 AM) [facility] PXEUE0882-19-34 09:33:00<1[facility] KEWCT5488-01-02 09:33:00<1[facility] HermannVIRAL - VDOZCRRB4822-65-59 07:15:00 Negative (01/10/19 1:15 AM)[facility]annVIRAL - MLFUGCHD1054-59-42 07:15:00 Negative (01/10/19 1:15 AM)[facility]annVIR[facility] - AIZGVVZI2023-92-24 07:15:00 Negative (01/10/19 1:15 AM)[facility]annVIR[facility] - JINSPPUS1496-26-33 07:15:00 Negative (01/10/19 1:15 AM)[facility] - UJRFDGRQ9170-05-05 07:15:00 Negative (01/10/19 1:15 AM)[facility]annVIR[facility] - ZCDADKLQ9364-30-64 07:15:00 Negative (01/10/19 1:15 AM)[facility] HermannCARDIAC NWIIEJC8838-77-59 05:21:00 0.09[facility] HermannCHEM ZKRQZ7670-06-27 05:21:007.1[facility]annCHEM PANEL 2019-01-10 05:21:003.1[facility] HermannCHEM LQSCN9174-91-86 05:21:0027[facility]annCHEM NXFPH1678-24-88 05:21:0027[facility]annCHEM [id number] 05:21:93651Xywwvtby HermannCHEM TJRBU3850-84-70 05:21:000.5[facility] HermannCHEM NTMFT0057-13-14 05:21:00 Test Item Value Reference Range Interpretation Comments B/C Ratio (test code = B/C Ratio) 17 1 6-25 [facility] HermannCHEM MLFGN5329-33-94 05:21:004.0[facility]annCHEM PANEL 2019-01-10 05:21:00 Test Item Value Reference Range Interpretation Comments A/G Ratio (test code = A/G Ratio) 0.8 1 0.7-1.6 [facility]annCHE[facility] EGPWS7143-53-30 05:21:000.9[facility]annHEMATOLOGY 2019-01-10 05:21:00 Test Item Value Reference Range Interpretation Comments INR (test code = INR) 1.08 1 0.85-1.17 [facility] TxjebrxPEDMWLFVAI9216-58-23 05:21:00 Test Item Value Reference Range Interpretation Comments PT (test code = PT) 13.8 s 12.0-14.7 [facility] AwhbrjwDNYAPQJKTR3188-51-16 05:21:00 Test Item Value Reference Range Interpretation Comments PTT (test code = PTT) 23.3 s 22.9-35.8 [facility] TyvclvkNJPFDPBHBJ1345-04-95 05:21:000.2[facility]annCARDIAC ENZYMES 2019-01-10 05:21:000.09[facility] HermannCHEM ZHWZY5257-10-17 05:21:007.1[facility] HermannCHEM WVFSP4007-93-85 05:21:003.1[facility] HermannCHEM VKHZC8537-67-97 05:21:0027[facility] HermannCHEM QXVVC4289-04-31 05:21:0027[facility] HermannCHEM WUMQU7848-64-86 05:21:56827Kqazwmoc HermannCHEM UMOUI4188-99-91 05:21:000.5 [facility]annCHEM YOIQV6413-67-20 05:21:00 Test Item Value Reference Range Interpretation Comments B/C Ratio (test code = B/C Ratio) 17 1 6-25 [facility] HermannCHEM [id number] 05:21:004.0[facility] HermannCHEM PANEL 2019-01-10 05:21:00 Test Item Value Reference Range Interpretation Comments A/G Ratio (test code = A/G Ratio) 0.8 1 0.7-1.6 [facility] HermannCHEM [id number] 05:21:000.9[facility]annHEMATOLOGY 2019-01-10 05:21:00 Test Item Value Reference Range Interpretation Comments INR (test code = INR) 1.08 1 0.85-1.17 [facility] AkftocjIKKSOKGKZQ7496-56-14 05:21:00 Test Item Value Reference Range Interpretation Comments PT (test code = PT) 13.8 s 12.0-14.7 [facility] LasgkasCUBFNMHBIE9475-95-66 05:21:00 Test Item Value Reference Range Interpretation Comments PTT (test code = PTT) 23.3 s 22.9-35.8 [facility] ExipuihAVWUCELUZC4140-37-08 05:21:000.2[facility]annCARDIAC ENZYMES 2019-01-10 05:21:000.09[facility] HermannCHEM LWVOV4273-01-76 05:21:007.1[facility] HermannCHEM OAVAV7721-21-99 05:21:003.1[facility] HermannCHEM XJROO2014-01-56 05:21:0027[facility] QQMHY0441-54-42 05:21:0027[facility]St[facility] CenterannCHEM CYAIF6560-32-84 05:21:65485Rgkgyytt HermannCHEM GTHJF4875-97-53 05:21:000.5 [facility]2019-11-15 05:21:00 Test Item Value Reference Range Interpretation Comments B/C Ratio (test code = B/C Ratio) 17 1 6-25 [facility]2019-11-15 05:21:004.0[facility]-01-10 05:21:00 Test Item Value Reference Range Interpretation Comments A/G Ratio (test code = A/G Ratio) 0.8 1 0.7-1.6 [facility]2019-11-15 05:21:000.9[facility]10 05:21:00 Test Item Value Reference Range Interpretation Comments INR (test code = INR) 1.08 1 0.85-1.17 [facility]WH[facility]KPCTK4679-09-98 05:21:00 Test Item Value Reference Range Interpretation Comments PT (test code = PT) 13.8 s 12.0-14.7 [facility]ZktyqbcYWNFRGFTLG9524-27-69 05:21:00 Test Item Value Reference Range Interpretation Comments PTT (test code = PTT) 23.3 s 22.9-35.8 [facility] TexasGomderhFUKKRLOTYS6429-93-76 05:21:000.2[facility] Centerann
[2021-02-06] MEDS ORDERED: NA CHLORIDE 0.9% 1,000 ML ONE (17:48)
[2021-02-06 17:59] LABS: Urine Blood Trace-intact (Negative); Urine Glucose Negative (Negative); Urine Protein Negative (Negative); Urine pH 5.5 (5.0-7.0)
[2021-02-06] MEDS ORDERED: ACETAMINOPHEN 500 MG TAB PO PRN (17:59)
[2021-02-06 18:34] LABS: Absolute Lymphocytes (CBC) 0.9 K/uL (0.7-4.9); Basophils % 0.8 % (0-1.3); Hematocrit 37.1 % (39.6-49.0); MPV 8.6 fL (7.6-11.3); RBC Red Blood Cell Count 4.14 M/uL (4.33-5.43)
[2021-02-06] MEDS ORDERED: MORPHINE 4 MG/ML SYR ONE (18:43)
[2021-02-06] MEDS ORDERED: ONDANSETRON 4 MG/2 ML VIAL ONE (18:44)
[2021-02-06 18:54] LABS: ALT/SGPT 9 U/L (12-78); AST/SGOT 28 U/L (15-37); Alkaline Phosphatase 86 U/L (45-117); BUN Blood Urea Nitrogen 8 mg/dL (7-18); Bicarbonate 22 mmol/L (21-32); Bilirubin Direct 0.2 mg/dL (0-0.2); Bilirubin Total 0.6 mg/dL (0.2-1.0); Glucose Level 95 mg/dL (74-106); Lipase 68 U/L (73-393); Potassium 3.7 mmol/L (3.5-5.1); Protein, Total 6.8 g/dL (6.4-8.2); Sodium Level 140 mmol/L (136-145)
--- NOTE | 2021-02-06 18:54 | EDPHYS ---
Physician Documentation [facility] Name: Isiah Gaytan Age: 85 yrs Sex: Male : 1935 Arrival Date: 02/06/2021 Time: 17:11 Bed 6 Private MD: Ronn Wilson ED Physician Maco Slaughter HPI: 02/06 17:36 This 85 yrs old Male presents to ER via Wheelchair with complaints of Nausea, Diarrhea. ma2 17:36 The patient presents to the emergency department with nausea, vomiting, diarrhea. ma2 Onset: The symptoms/episode began/occurred gradually, 1 day(s) ago. Associated signs and symptoms: Pertinent negatives: constipation, dysuria, flatulence, hematuria. Severity of symptoms: At their worst the symptoms were moderate in the emergency department the symptoms are unchanged. The patient has experienced similar episodes in the past, multiple times. Historical: - Allergies: 17:30 Azithromycin; iw 17:30 Codeine; iw 17:30 Keflex; iw - Home Meds: 20:24 aspirin 81 mg Oral chew 1 tab once daily [Active]; atorvastatin Oral [Active]; lp1 carbidopa-levodopa 25-100 mg Oral tab [Active]; Eliquis Oral [Active]; Eliquis 5 mg Oral tab 1 tab 2 times per day [Active]; furosemide 20 mg Oral tab 1 tab 2 times per day [Active]; sotalol 40 mg Oral tab 1 tab 2 times per day [Active]; Tramadol Oral [Active]; - PMHx: 17:30 Atrial fibrillation; CHF; High Cholesterol; Hypertension; Myocardial infarction; iw - PSHx: 17:30 cardiac stents; iw - Immunization history:: Adult Immunizations up to date. - Social history:: Patient/guardian denies using alcohol, street drugs, The patient lives with family. - Family history:: not pertinent. ROS: 17:36 Constitutional: Negative for fever, chills, and weight loss. ma2 17:36 All other systems are negative. Exam: 17:36 Constitutional: This is a well developed, well nourished patient who is awake, alert, ma2 and in no acute distress. Head/Face: Normocephalic, atraumatic. Eyes: Pupils equal round and reactive to light, extra-ocular motions intact. Lids and lashes normal. Conjunctiva and sclera are non-icteric and not injected. Cornea within normal limits. Periorbital areas with no swelling, redness, or edema. ENT: Nares patent. No nasal discharge, no septal abnormalities noted. Tympanic membranes are normal and external auditory canals are clear. Oropharynx with no redness, swelling, or masses, exudates, or evidence of obstruction, uvula midline. Mucous membranes moist. Neck: Trachea midline, no thyromegaly or masses palpated, and no cervical lymphadenopathy. Supple, full range of motion without nuchal rigidity, or vertebral point tenderness. No Meningismus. Chest/axilla: Normal chest wall appearance and motion. Nontender with no deformity. No lesions are appreciated. Cardiovascular: Regular rate and rhythm with a normal S1 and S2. No gallops, murmurs, or rubs. Normal PMI, no JVD. No pulse deficits. Respiratory: Lungs have equal breath sounds bilaterally, clear to auscultation and percussion. No rales, rhonchi or wheezes noted. No increased work of breathing, no retractions or nasal flaring. Abdomen/GI: Soft, non-tender, with normal bowel sounds. No distension or tympany. No guarding or rebound. No evidence of tenderness throughout. Skin: Warm, dry with normal turgor. Normal color with no rashes, no lesions, and no evidence of cellulitis. MS/ Extremity: Pulses equal, no cyanosis. Neurovascular intact. Full, normal range of motion. Neuro: Awake and alert, GCS 15, oriented to person, place, time, and situation. Cranial nerves II-XII grossly intact. Motor strength 5/5 in all extremities. Sensory grossly intact. Cerebellar exam normal. Normal gait. Vital Signs: 17:28 BP 145 / 71; Pulse 62; Resp 16; Temp 98.1; Pulse Ox 100% on R/A; iw 19:31 BP 131 / 93; Pulse 65; Resp 13; Temp 98.5(O); Pulse Ox 100% on R/A; Pain 0/10; lp1 20:38 BP 137 / 85; Pulse 67; Resp 18; Pulse Ox 98% on R/A; lp1 MDM: 17:31 Patient medically screened. ma2 17:36 Differential diagnosis: gastritis, pancreatitis, appendicitis, viral gastroenteritis, ma2 gastroenteritis. 18:53 Data reviewed: vital signs, nurses notes. Counseling: I had a detailed discussion with [facility] the patient and/or guardian regarding: the historical points, exam findings, and any diagnostic results supporting the discharge/admit diagnosis, the presence of at least one elevated blood pressure reading (>120/80) during this emergency department visit, the need for outpatient follow up. Response to treatment: the patient's symptoms have markedly improved after treatment. 02/06 17:33 Order name: Basic Metabolic Panel [facility] 02/06 17:33 Order name: CBC with Diff; Complete Time: 18:52 [facility] 02/06 17:33 Order name: Hepatic Function [facility] 02/06 17:33 Order name: Lipase [facility] 02/06 17:59 Order name: Urine Dipstick-Ancillary; Complete Time: 18:34 EDMS 02/06 18:04 Order name: Basic Metabolic Panel [facility] 02/06 18:04 Order name: Basic Metabolic Panel [facility] 02/06 18:04 Order name: CBC with Automated Diff [facility] 02/06 18:04 Order name: CBC with Automated Diff [facility] 02/06 19:09 Order name: COVID-19 (Coronavirus) Document "Date of Onset" if Symptomatic tw5 02/06 19:21 Order name: CORONAVIRUS [facility] 02/06 20:00 Order name: SARS-COV-2 RT PCR [facility] 02/06 17:33 Order name: IV Saline Lock; Complete Time: 17:57 [facility] 02/06 17:33 Order name: Labs collected and sent; Complete Time: 17:57 [facility] 02/06 17:33 Order name: Urine Dipstick-Ancillary (obtain specimen); Complete Time: 17:57 [facility] 02/06 18:04 Order name: NPO; Complete Time: 18:06 EDMS Administered Medications: 18:10 Drug: Zofran (Ondansetron) 4 mg Route: IVP; Site: right antecubital; bp 20:37 Follow up: Response: Marked relief of symptoms lp1 18:10 Drug: morphine 4 mg Route: IVP; Site: right forearm; bp 20:37 Follow up: Response: Pain is decreased lp1 18:25 Drug: NS 0.9% 1000 ml Route: IV; Rate: 1 bolus; Site: right antecubital; jh6 20:38 Follow up: IV Status: Infusion continued upon admission lp1 Disposition Summary: 02/06/21 18:55 Hospitalization Ordered Hospitalization Status: Inpatient Admission ma2 Provider: Ronn Wilson Location: Telemetry/[facility]Sur (Inpatient)(02/06/21 18:55) ma2 Condition: Stable(02/06/21 18:55) ma2 Problem: new ma2 Symptoms: are unchanged ma2 Bed/Room Type: Standard il2 Room Assignment: [facility](02/06/21 20:15) Diagnosis - Diarrhea, unspecified(02/06/21 18:55) ma2 Forms: - Medication Reconciliation Form ma2 - SBAR form ma2 Signatures: Dispatcher [employer] EDBertha Torres RN RN Lee Ann Andrade RN RN 1 Gertrudis Gillespie RN RN cg Adam Monet RN RN bp Maco Slaughter MD MD il2 Ana Paula Jeffrey RN RN jh6 Corrections: (The following items were deleted from the chart) 18:54 18:53 Home ma2 ma2 18:54 18:53 Stable ma2 ma2 18:54 18:53 Diarrhea, unspecified ma2 ma2 20:15 18:55 ma2 cg
--- NOTE | 2021-02-06 18:54 | ER ---
Nurse's Notes [facility] Name: Isiah Gaytan Age: 85 yrs Sex: Male : 1935 Arrival Date: 02/06/2021 Time: 17:11 Bed 6 Private MD: Ronn Wilson Diagnosis: Diarrhea, unspecified Presentation: 02/06 17:28 Chief complaint: Spouse and/or significant other states: was discharged from hospital iw yesterday, for possible stomach cancer, today he does not feel good and he has not eaten , he vomited earlier. Coronavirus screen: At this time, the client does not indicate any symptoms associated with coronavirus-19. Ebola Screen: Patient negative for fever greater than or equal to 101.5 degrees Fahrenheit, and additional compatible Ebola Virus Disease symptoms Patient denies exposure to infectious person. Patient denies travel to an Ebola-affected area in the 21 days before illness onset. No symptoms or risks identified at this time. Initial Sepsis Screen: Does the patient meet any 2 criteria? No. Patient's initial sepsis screen is negative. Does the patient have a suspected source of infection? No. Patient's initial sepsis screen is negative. Risk Assessment: Do you want to hurt yourself or someone else? Patient reports no desire to harm self or others. Onset of symptoms was February 06, 2021. 17:28 Method Of Arrival: Wheelchair iw 17:28 Acuity: MARIOLA 3 iw Historical: - Allergies: 17:30 Azithromycin; iw 17:30 Codeine; iw 17:30 Keflex; iw - Home Meds: 20:24 aspirin 81 mg Oral chew 1 tab once daily [Active]; atorvastatin Oral [Active]; lp1 carbidopa-levodopa 25-100 mg Oral tab [Active]; Eliquis Oral [Active]; Eliquis 5 mg Oral tab 1 tab 2 times per day [Active]; furosemide 20 mg Oral tab 1 tab 2 times per day [Active]; sotalol 40 mg Oral tab 1 tab 2 times per day [Active]; Tramadol Oral [Active]; - PMHx: 17:30 Atrial fibrillation; CHF; High Cholesterol; Hypertension; Myocardial infarction; iw - PSHx: 17:30 cardiac stents; iw - Immunization history:: Adult Immunizations up to date. - Social history:: Patient/guardian denies using alcohol, street drugs, The patient lives with family. - Family history:: not pertinent. Screenin:32 Abuse screen: Denies threats or abuse. Denies injuries from another. Nutritional lp1 screening: No deficits noted. Tuberculosis screening: No symptoms or risk factors identified. Fall Risk Total Griffin Fall Scale indicates High Risk Score (45 or more points). Fall prevention measures have been instituted. Side Rails Up X 2 Frequent Obs/Assessments Occuring As available patient and family educated on Fall Prevention Program and Strategies. Assessment: 19:30 Reassessment: Patient appears in no apparent distress at this time. Patient is alert, lp1 oriented x 3, equal unlabored respirations, skin warm/dry/pink. Patient states feeling better. 19:32 General: Appears in no apparent distress. Behavior is calm, cooperative. Pain: Denies lp1 pain. Neuro: Level of Consciousness is awake, alert, obeys commands, Oriented to person, place, situation. Cardiovascular: Patient's skin is warm and dry. Respiratory: Respiratory effort is even, unlabored. GI: Abdomen is non-distended, Reports nausea, resolved at this time. : No signs and/or symptoms were reported regarding the genitourinary system. EENT: No signs and/or symptoms were reported regarding the EENT system. Derm: Skin is intact, is thin, Skin is dry, Skin is normal. Musculoskeletal: No deficits noted. Vital Signs: 17:28 BP 145 / 71; Pulse 62; Resp 16; Temp 98.1; Pulse Ox 100% on R/A; iw 19:31 BP 131 / 93; Pulse 65; Resp 13; Temp 98.5(O); Pulse Ox 100% on R/A; Pain 0/10; lp1 20:38 BP 137 / 85; Pulse 67; Resp 18; Pulse Ox 98% on R/A; lp1 ED Course: 17:11 Patient arrived in ED. iw 17:12 Ronn Wilson MD is Private Physician. am2 17:30 Triage completed. iw 17:31 Maco Slaughter MD is Attending Physician. ma2 17:38 Adam Monet, KATELYNN is Primary Nurse. bp 18:54 Ronn Wilson MD is Hospitalizing Provider. ma2 19:14 Primary Nurse role handed off by Adam Monet, RN 2 19:31 Lee Ann Andrade, RN is Primary Nurse. lp1 19:33 Patient has correct armband on for positive identification. Placed in gown. Bed in low lp1 position. 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 Pulse ox on. NIBP on. 19:33 Arm band placed on. lp1 20:24 No provider procedures requiring assistance completed. Patient admitted, IV remains in lp1 place. 22g IV to R FA. Administered Medications: 18:10 Drug: Zofran (Ondansetron) 4 mg Route: IVP; Site: right antecubital; bp 20:37 Follow up: Response: Marked relief of symptoms lp1 18:10 Drug: morphine 4 mg Route: IVP; Site: right forearm; bp 20:37 Follow up: Response: Pain is decreased lp1 18:25 Drug: NS 0.9% 1000 ml Route: IV; Rate: 1 bolus; Site: right antecubital; jh6 20:38 Follow up: IV Status: Infusion continued upon admission lp1 Outcome: 18:53 Discharge ordered by . co2 18:55 Decision to Hospitalize by Provider. co2 20:26 Condition: stable lp1 20:26 Instructed on the need for admit. 20:37 Admitted to Med/surg room 216, with chart, Report called to KATELYNN Bernardo lp1 20:58 Patient left the ED. lp1 Signatures: Bertha De Souza, RN KATELYNN Lee Ann Andrade, RN RN 1 Rosa Maria Dykes am2 Adam Monet, RN RN bp Maco Slaughter MD MD co2 [facility] Ana Paula Jeffrey RN RN 6
[2021-02-06] MEDS ORDERED: INSULIN -REGULAR HUMAN 50 UNIT/0.5 ML ML SQ SCH (21:00)
[2021-02-06] MEDS: NA CHLORIDE 0.9% 1,000 ML IV SCH (22:31)
[2021-02-06 22:48] VITALS: BMI 23.6
[2021-02-07 00:59] LABS: Urine Appearance CLEAR (Clear); Urine Bilirubin NEGATIVE (Negative); Urine Blood NEGATIVE (Negative); Urine Color YELLOW (Yellow); Urine Glucose NEGATIVE (Negative); Urine Protein NEGATIVE (Negative); Urine Urobilinogen 0.2 mg/dL (0.2-1.0); Urine pH 5.5 (5.0-7.0)
[2021-02-07 01:01] LABS: Urine Microscopic Reflex NO UMIC
[2021-02-07] MEDS: NA CHLORIDE 0.9% 1,000 ML IV SCH ×2 (04:00→09:00)
[2021-02-07] MEDS: MORPHINE 2 MG/ML SYR IV PRN ×3 (05:22→21:04)
[2021-02-07 05:41] LABS: Absolute Lymphocytes (CBC) 0.8 K/uL (0.7-4.9); Hematocrit 31.8 % (39.6-49.0); Lymphocytes % 29.1 % (15.3-44.8); MPV 8.6 fL (7.6-11.3); RBC Red Blood Cell Count 3.55 M/uL (4.33-5.43)
[2021-02-07 05:58] LABS: BUN Blood Urea Nitrogen 7 mg/dL (7-18); Bicarbonate 24 mmol/L (21-32); Glucose Level 77 mg/dL (74-106); Potassium 3.5 mmol/L (3.5-5.1); Sodium Level 143 mmol/L (136-145)
[2021-02-07] MEDS: INSULIN -REGULAR HUMAN 50 UNIT/0.5 ML ML SQ SCH ×3 (06:00→11:35)
[2021-02-07] MEDS ORDERED: PNEUMOCOCCAL VACCINE 0.5 ML IMVAC ONE (08:00)
[2021-02-07] MEDS ORDERED: TRAMADOL HCL 50 MG TAB PO PRN (10:01)
[2021-02-07] MEDS ORDERED: ACETAMINOPHEN 500 MG TAB PO PRN (10:01)
[2021-02-07 10:47] LABS: Blood Morphology Comment NOT SEEN (NOT SEEN); Platelet Estimate ADEQ; Platelets, Giant FEW
[2021-02-07] MEDS: D5 0.9 NS 1,000 ML IV SCH (13:33)
[2021-02-07] MEDS: ENSURE ENLIVE 237 ML CAN PO SCH (21:00)
[2021-02-07] MEDS: APIXABAN 5 MG TABLET PO SCH (21:04)
[2021-02-07] MEDS: SOTALOL HCL 80 MG TAB PO SCH (21:04)
[2021-02-08] MEDS: D5 0.9 NS 1,000 ML IV SCH ×2 (02:20→15:40)
[2021-02-08] MEDS: NA CHLORIDE 0.9% 1,000 ML IV SCH ×2 (02:24)
[2021-02-08] MEDS: MORPHINE 2 MG/ML SYR IV PRN (02:40)
[2021-02-08] MEDS: ENSURE ENLIVE 237 ML CAN PO SCH ×2 (09:00→20:54)
--- NOTE | 2021-02-08 10:42 | PN ---
Date of Progress Note: 02/07/2021 The patient states since he has been in the hospital, he has not thrown up anymore the episodes at ho me associated with minimal left upper quadrant discomfort. He states that he has been nauseated quit e a bit in the past, has not thrown up until this past episode when he was discharged home 2 days ago and started vomiting the next day. He was becoming dehydrated and therefore presented to the emerge ncy room. At this time, he has slight memory deficit, but orientated. Tolerating fluids. Awaiting path report, should be back in the a.m. Depending on the report, will depend on his disposition. HR/MODL Voice ID: [id number] Report ID: [id number]
--- NOTE | 2021-02-08 10:56 | HP ---
Date of Admission: 02/06/2021 Entrance Complaint: Nausea, vomiting, anorexia. History Of Present Illness: The patient was recently hospitalized for somewhat similar problems asso ciated with constipation. During his hospital stay, KUB was done, which was reported as negative. O n symptomatic treatment. He showed gradual improvement. His CAT scan did reveal widespread disease. Therefore, a biopsy was done on the prior admission and he was discharged the next day. Basically, he has same symptoms with some anorexia and nausea. No abdominal tenderness and physical exam was i n normal limits. He felt well enough to be discharged. Continue on his usual regimen. To report ca me back within the next few days. Final Diagnoses: Dehydration, obstipation, anorexia, weight loss, widespread metastatic d isease. Awaiting biopsy report. The patient will be followed as an outpatient basis at the time of his diagnosis. HR/MODL Voice ID: [id number]
[2021-02-08] MEDS: APIXABAN 5 MG TABLET PO SCH ×2 (10:59→20:54)
[2021-02-08] MEDS: SOTALOL HCL 80 MG TAB PO SCH ×2 (10:59→20:53)
--- NOTE | 2021-02-08 16:09 | PN ---
Date of Progress Note: 02/08/2021 The patient is basically status quo. He says if he eats candy he gets nauseated, takes a few bites a nd he thinks like he is going to vomit. His pain states has increased and he has asked for the morph ine on a more frequent basis. Pathology report shows cancer, however, the differentiation between th e lymphomas and the pancreatic or GI etiology has not been determined and slides will be sent to [facility]mu nodiagnostic procedures, which will take until Sunday. Discussion with social worker palliative care as far as dis position was also held and possibility of tube feedings was discussed with the patient, and a modifie d barium swallow will be ordered in the morning. HR/MODL Voice ID: [id number] Report ID: [id number]
[2021-02-09] MEDS: MORPHINE 2 MG/ML SYR IV PRN ×5 (01:18→22:54)
[2021-02-09] MEDS: D5 0.9 NS 1,000 ML IV SCH ×3 (04:33→20:35)
[2021-02-09 05:43] LABS: Absolute Lymphocytes (CBC) 0.8 K/uL (0.7-4.9); Hematocrit 32.6 % (39.6-49.0); Lymphocytes % 29.4 % (15.3-44.8); MPV 8.3 fL (7.6-11.3); RBC Red Blood Cell Count 3.63 M/uL (4.33-5.43)
[2021-02-09 05:58] LABS: BUN Blood Urea Nitrogen 5 mg/dL (7-18); Bicarbonate 26 mmol/L (21-32); Glucose Level 135 mg/dL (74-106); Potassium 3.5 mmol/L (3.5-5.1); Sodium Level 142 mmol/L (136-145)
[2021-02-09] MEDS: SOTALOL HCL 80 MG TAB PO SCH ×2 (09:00→20:36)
[2021-02-09] MEDS: ENSURE ENLIVE 237 ML CAN PO SCH ×2 (09:00→20:36)
[2021-02-09] MEDS: APIXABAN 5 MG TABLET PO SCH ×2 (09:00→20:36)
--- NOTE | 2021-02-09 13:45 | CON ---
Date of Consultation: 02/09/2021 Brief History Of Present Illness: The patient is an 85-year-old male, who presents with persistent w orsening nausea, abdominal pain, diarrhea. He came with the above-stated complaints, which began meryl roximately a day ago and got progressively worse. He complains of constipation and diarrhea intermit tently. He has been having decreased p.o. intake and significant weight loss recently. Past Medical History: Significant for atrial fibrillation, congestive heart failure, high cholestero l, hypertension, myocardial infarction. Past Surgical History: Includes cardiac stents. Home Medications: Include aspirin, atorvastatin, carbidopa levodopa, Eliquis. Lasix, sotalol, trama dol. Allergies: TO AZITHROMYCIN, CODEINE, KEFLEX. Social History: He denies alcohol or recreational drug use. Has a positive smoking history by kiko garcia. Review of Systems: Ten-point review of systems other than HPI, denies. Physical Examination: Vital Signs: At the time of my examination, his BMI is 23.6. His blood pressure was 149/65, heart r ate 59, respiratory rate 16, temperature 97.8, SpO2 97% on room air. General: He is awake, alert, oriented. Psychiatric: Appropriate and conversive. HEENT: Normocephalic. Sclerae anicteric. Mucous membranes moist. Oropharynx clear. Neck: Supple without JVD. Chest: Normal expansion and excursion. Cardiovascular: Irregular rate, irregular rhythm. Abdomen: Soft generally. Laboratory Data: He laboratory exam, which reveals a white blood count of 2.8, hemoglobin is 10.5, h ematocrit is 32.6, platelet count was 143. Sodium was 142, potassium 3.8, chloride 110, carbon dioxi de 26, BUN 35, creatinine 0.6, glucose is 135. He had a CT-guided biopsy on 02/04/2021, for a suspic ious finding on a 02/[address] The official read was metastatic disease favored gastric prima ry with lymphadenopathy to the celiac axis lymph nodes and retroperitoneal lymph nodes. New splenic mass also concerning for metastatic disease. Small left pleural effusion. History of reactive malig nant large left retroperitoneal lymph node would likely be the easiest site for sampling to both conf irm metastatic disease and establish primary diagnosis. Assessment And Plan: This is an 85-year-old male, who comes in with unknown primary likely metastati c disease with decreased p.o. intake and inability to tolerate p.o. 1.The patient is receiving IV hydration. 2.Will follow up on swallow study, which is currently ordered. Depending on the findings of the [facility] study, patient will be considered for feeding access. This might be a J-tube versus a GJ if fidelina nable to positioning and placement. However, will await the final swallow study to plan what might b e an optimal feeding solution for this patient. The possibility for a GJ might be beneficial if the patient continues to have the persistent intractable nausea and vomiting for symptomatic improvement and the J-tube extension for feeding access. I have explained the risks, benefits, and alternatives of the above stated plan. The patient agrees to proceed as indicated. CHANEL/JAYLEEN Voice ID: [id number] Report ID: [id number]
--- NOTE | 2021-02-09 17:34 | P.PN ---
Subjective Date of Service: 02/09/[address] Wilson: Patient is scheduled for an upper GI; patient will have this done in the AM; will start a diet. And NPO after midnight. BP is elevated-added norvasc. General surgery to possibly place a J-tube depending on the findings. Patient is not really eating much. He is vomiting. He has a abdominal mass which appears to be possible of pancreatic malignancy. Family is undecided about treatment plan. This is needed them and they are uncertain as to the treatment going forward. In order for patient to get nutrition will place a J-tube. Review of Systems 10-point ROS is otherwise unremarkable Physical Examination - Vital Signs Temperature: 97.3 F Blood Pressure: 147/63 Pulse: 57 Respirations: 20 Pulse Ox (%): 97 - Physical Exam General: Alert, In no apparent distress, Oriented x3 Respiratory: Clear to auscultation bilaterally, Normal air movement Cardiovascular: Regular rate/rhythm, Normal S1 S2, No murmurs Gastrointestinal: Normal bowel sounds, Soft and benign, Non-distended, No tenderness Musculoskeletal: No clubbing, No swelling, No tenderness Neurological: Sensation intact, Cranial nerves 3-12 intact - Studies Medications List Reviewed: Yes Assessment & Plan - Problems (Diagnosis) (1) Dysphagia Current Visit: Yes Status: Acute (2) Atrial fibrillation Current Visit: No Status: Acute (3) CAD (coronary artery disease) Onset Date: 05/09/17 Current Visit: No Status: Acute Qualifiers: (4) Diastolic heart failure Current Visit: No Status: Acute (5) History of skin cancer Current Visit: No Status: Acute (6) Hx of heart artery stent Current Visit: No Status: Acute - Plan Plan: 1. Upper GI series/Modified swallow study 2. Monitor blood pressure 3. Monitor renal function 4. Possible J-tube per General surgery pending modified swallow study 5. Outpatient oncology follow-up 6. May need PICC line placement for TPN if not able to tolerate nutrition and unable to get a J-tube 7. GI and DVT prophylaxis Discharge Plan: Home Plan to discharge in: Greater than 2 days - Advance Directives Does patient have a Living Will: Yes Does patient have a Durable POA for Healthcare: Yes - Code Status/Comfort Care Code Status Assessed: Yes Code Status: Full Code Critical Care: No Time Spent Managing PTS Care (In Minutes): 35
[2021-02-09] MEDS ORDERED: AMLODIPINE 5 MG TAB PO ONE (18:00)
[2021-02-10] MEDS: MORPHINE 2 MG/ML SYR IV PRN ×4 (04:48→21:24)
[2021-02-10 05:19] LABS: Absolute Lymphocytes (CBC) 0.9 K/uL (0.7-4.9); Basophils % 0.9 % (0-1.3); Hematocrit 30.1 % (39.6-49.0); Lymphocytes % 28.6 % (15.3-44.8); MPV 8.2 fL (7.6-11.3); RBC Red Blood Cell Count 3.35 M/uL (4.33-5.43)
[2021-02-10 05:37] LABS: BUN Blood Urea Nitrogen 6 mg/dL (7-18); Bicarbonate 24 mmol/L (21-32); Glucose Level 122 mg/dL (74-106); Potassium 3.5 mmol/L (3.5-5.1); Sodium Level 145 mmol/L (136-145)
[2021-02-10] MEDS: D5 0.9 NS 1,000 ML IV SCH ×2 (07:40→21:12)
[2021-02-10] MEDS: ENSURE ENLIVE 237 ML CAN PO SCH ×2 (09:00→21:11)
[2021-02-10] MEDS: ONDANSETRON 4 MG/2 ML VIAL IV PRN ×2 (09:08→17:51)
--- NOTE | 2021-02-10 10:25 | P.PN ---
Subjective Date of Service: 02/10/21 Subjective: No new changes (Unable to have barium swallow done yesterday Patient complaining of poor p.o. intake, anxious to have testing done and decision of J- tube placed) Physical Examination - Vital Signs Temperature: 96.9 F Blood Pressure: 160/73 Pulse: 66 Respirations: 19 Pulse Ox (%): 98 - Physical Exam General: Alert, In no apparent distress HEENT: Atraumatic, Normocephalic, PERRLA Respiratory: Clear to auscultation bilaterally, Normal air movement, Diminished Cardiovascular: No edema, Normal pulses, Regular rate/rhythm, Normal S1 S2 Gastrointestinal: Normal bowel sounds, Soft and benign, No ascites, No tenderness, Distended Musculoskeletal: No clubbing, No swelling, No contractures Neurological: Normal speech, Normal strength at 5/5 x4 extr, Normal tone - Studies Medications List Reviewed: Yes Assessment And Plan - Plan Plan 1. Upper GI series/Modified swallow study 2. Monitor blood pressure 3. Monitor renal function 4. Possible J-tube per General surgery pending modified swallow study 5. Outpatient oncology follow-up 6. May need PICC line placement for TPN if not able to tolerate nutrition and unable to get a J-tube 7. GI and DVT prophylaxis
[2021-02-10] MEDS: SOTALOL HCL 80 MG TAB PO SCH ×2 (10:44→21:11)
[2021-02-10] MEDS: AMLODIPINE 5 MG TAB PO SCH (10:44)
[2021-02-10] MEDS: APIXABAN 5 MG TABLET PO SCH ×2 (10:44→21:10)
--- NOTE | 2021-02-10 13:01 | RAD REPORT ---
EXAM DESCRIPTION: RAD - Barium Swallow Modified - 02/10/2021 12:41 pm CLINICAL HISTORY: poor oral intake COMPARISON: Abdomen Pelvis W Contrast dated 02/02/2021 TECHNIQUE: The patient was given liquid, semi-solid and solid forms of barium. Lateral view fluorosc opic imaging was performed in conjunction with speech pathology service. FINDINGS: Laryngeal penetration not cleared with thin by spoon. Pharyngeal residue vallecular pyrifo rm all consistencies dry solid whole barium tablet with thin by straw. Osteophyte at c4-c5,pill lodge d in valleculae removed thin by straw liquid wash. Residue easily removed with additional dry swallow s Total fluoroscopy time: 5 minutes 42 seconds
[2021-02-11] MEDS: MORPHINE 2 MG/ML SYR IV PRN ×4 (05:38→18:31)
[2021-02-11 05:55] LABS: Absolute Lymphocytes (CBC) 0.8 K/uL (0.7-4.9); Basophils % 0.6 % (0-1.3); Hematocrit 30.5 % (39.6-49.0); Lymphocytes % 27.7 % (15.3-44.8); MPV 8.5 fL (7.6-11.3); RBC Red Blood Cell Count 3.39 M/uL (4.33-5.43)
[2021-02-11 06:22] LABS: ALT/SGPT 17 U/L (12-78); AST/SGOT 16 U/L (15-37); Albumin 2.3 g/dL (3.4-5.0); Alkaline Phosphatase 69 U/L (45-117); BUN Blood Urea Nitrogen 5 mg/dL (7-18); Bicarbonate 24 mmol/L (21-32); Bilirubin Total 0.5 mg/dL (0.2-1.0); Glucose Level 112 mg/dL (74-106); Lipase 48 U/L (73-393); Magnesium 1.9 mg/dL (1.8-2.4); Phosphorus 2.7 mg/dL (2.5-4.9); Potassium 3.6 mmol/L (3.5-5.1); Protein, Total 5.7 g/dL (6.4-8.2); Sodium Level 142 mmol/L (136-145)
[2021-02-11 06:29] LABS: Anisocytosis 1+; Blood Morphology Comment NOTED (NOT SEEN); Platelet Estimate ADEQ; White Blood Cell Scan OK (OK)
[2021-02-11 06:41] LABS: Folic Acid, (Folate) > 20.0 ng/mL (3.1-17.5)
[2021-02-11] MEDS: ENSURE ENLIVE 237 ML CAN PO SCH ×2 (09:00→20:49)
[2021-02-11] MEDS: AMLODIPINE 5 MG TAB PO SCH (09:59)
[2021-02-11] MEDS: APIXABAN 5 MG TABLET PO SCH ×2 (09:59→20:49)
[2021-02-11] MEDS: D5 0.9 NS 1,000 ML IV SCH (09:59)
[2021-02-11] MEDS: SOTALOL HCL 80 MG TAB PO SCH ×2 (09:59→20:49)
--- NOTE | 2021-02-11 12:55 | P.PN ---
Subjective Date of Service: 02/11/21 Subjective: No new changes, No C/O voiced (refusing J tube placement ,want to wait for pancreatic mass biopsy result) Physical Examination - Vital Signs Temperature: 97.3 F Blood Pressure: 116/63 Pulse: 59 Respirations: 16 Pulse Ox (%): 96 - Physical Exam General: Alert, In no apparent distress, Oriented x3 HEENT: Atraumatic, Normocephalic, PERRLA Neck: Supple, 2+ carotid pulse no bruit, JVD not distended Respiratory: Clear to auscultation bilaterally, Normal air movement Cardiovascular: No edema, Normal pulses, Regular rate/rhythm, Normal S1 S2 Gastrointestinal: Normal bowel sounds, Soft and benign, Non-distended Musculoskeletal: No clubbing, No swelling Integumentary: No rashes, No breakdown Neurological: Normal gait, Normal speech, Normal strength at 5/5 x4 extr External genitalia: No edema, No lesions - Studies Medications List Reviewed: Yes Assessment And Plan - Current Problems (Diagnosis) (1) Pancreatic mass Current Visit: Yes Status: Acute (2) Atrial fibrillation Current Visit: No Status: Acute (3) CAD (coronary artery disease) Onset Date: 05/09/17 Current Visit: No Status: Acute Qualifiers: (4) Diastolic heart failure Current Visit: No Status: Acute - Plan PLAN -Patient have satisfactory result with modified swallow eval. Still poor appetite -will do trial of megace and Remeron - follow pancreatic biopsy result - May still need J tube -If tolerating p.o. in a.m. we will consider discharge -Outpatient oncology follow-up -May need PICC line placement for TPN if not able to tolerate nutrition and unable to get a J-tube -GI and DVT prophylaxis Time Spent Managing PTS Care (In Minutes): 35
--- NOTE | 2021-02-11 14:28 | P.PN ---
Date of Service: 02/11/21 Patient decided he does not want a feeding tube at this time, and would like to try PO intake, have discussed in detail with patient, will remain available
[2021-02-11] MEDS: MEGESTROL 400 MG/10 ML UCUP PO SCH ×2 (14:35→20:49)
[2021-02-11] MEDS ORDERED: BISACODYL E.C. 5 MG TAB PO ONE (17:00)
[2021-02-11] MEDS: MIRTAZAPINE 15 MG TAB PO SCH (20:49)
[2021-02-12] MEDS: D5 0.9 NS 1,000 ML IV SCH (01:47)
[2021-02-12 05:57] LABS: Absolute Lymphocytes (CBC) 0.6 K/uL (0.7-4.9); Basophils % 0.4 % (0-1.3); Hematocrit 36.5 % (39.6-49.0); Lymphocytes % 19.3 % (15.3-44.8); MPV 8.8 fL (7.6-11.3); RBC Red Blood Cell Count 4.05 M/uL (4.33-5.43)
[2021-02-12 06:11] LABS: BUN Blood Urea Nitrogen 6 mg/dL (7-18); Bicarbonate 27 mmol/L (21-32); Glucose Level 114 mg/dL (74-106); Potassium 3.2 mmol/L (3.5-5.1); Sodium Level 144 mmol/L (136-145)
[2021-02-12] MEDS: ENSURE ENLIVE 237 ML CAN PO SCH ×2 (09:00→20:47)
[2021-02-12] MEDS: SOTALOL HCL 80 MG TAB PO SCH ×2 (10:10→20:44)
[2021-02-12] MEDS: MEGESTROL 400 MG/10 ML UCUP PO SCH ×2 (10:10→20:46)
[2021-02-12] MEDS: APIXABAN 5 MG TABLET PO SCH ×2 (10:10→20:45)
[2021-02-12] MEDS: AMLODIPINE 5 MG TAB PO SCH (10:22)
[2021-02-12] MEDS ORDERED: POTASSIUM 25 MEQ EFFERV TAB PO ONE (12:33)
--- NOTE | 2021-02-12 12:36 | P.PN ---
Subjective Date of Service: 02/12/21 Subjective: No new changes (States appetite is slightly better, states he was able to eat small portions of his meals today Initiated on Megace/Remeron yesterday) Physical Examination - Vital Signs Temperature: 97.2 F Blood Pressure: 132/60 Pulse: 58 Respirations: 16 Pulse Ox (%): 97 - Physical Exam General: Alert, In no apparent distress, Oriented x3 HEENT: Atraumatic, Normocephalic, PERRLA Neck: 2+ carotid pulse no bruit, JVD not distended Respiratory: Clear to auscultation bilaterally Cardiovascular: No edema, Regular rate/rhythm, Normal S1 S2 Gastrointestinal: Normal bowel sounds, Distended Neurological: Normal strength at 5/5 x4 extr, Normal tone, Sensation intact, Cranial nerves 3-12 intact - Studies Medications List Reviewed: Yes Assessment And Plan - Current Problems (Diagnosis) (1) Pancreatic mass Current Visit: Yes Status: Acute (2) Atrial fibrillation Current Visit: No Status: Acute (3) CAD (coronary artery disease) Onset Date: 05/09/17 Current Visit: No Status: Acute Qualifiers: (4) Diastolic heart failure Current Visit: No Status: Acute - Plan PLAN Slowly trial of Megace and Remeron Refusing G-tube placement for previous anorexia, Awaiting pancreatic biopsy report If still improving appetite in the a.m., can discharge patient home and follow- up with oncology as outpatient -We will replete potassium today Start nutritional supplements 1 can 3 times daily -Complain of constipation complaining of constipation, with dose Dulcolax as needed today -GI and DVT prophylaxis
[2021-02-12] MEDS ORDERED: BISACODYL 10 MG RECTAL SUPP PR ONE (12:37)
[2021-02-12] MEDS ORDERED: LACTULOSE 20 GM/30 ML UCUP PO ONE (12:37)
[2021-02-12] MEDS: D5NS KCL 20MEQ 20 MEQ/1,000 ML BAG IV SCH ×2 (13:30→23:00)
[2021-02-12] MEDS: MORPHINE 2 MG/ML SYR IV PRN (17:55)
[2021-02-12] MEDS: MIRTAZAPINE 15 MG TAB PO SCH (20:44)
[2021-02-13 02:38] VITALS: O2SAT 94
[2021-02-13] MEDS: MORPHINE 2 MG/ML SYR IV PRN ×2 (05:24→10:04)
[2021-02-13 06:20] LABS: BUN Blood Urea Nitrogen 5 mg/dL (7-18); Bicarbonate 27 mmol/L (21-32); Glucose Level 101 mg/dL (74-106); Potassium 3.5 mmol/L (3.5-5.1); Sodium Level 145 mmol/L (136-145)
[2021-02-13 06:21] LABS: ALT/SGPT 23 U/L (12-78); AST/SGOT 27 U/L (15-37); Albumin 2.6 g/dL (3.4-5.0); Alkaline Phosphatase 81 U/L (45-117); Bilirubin Total 0.5 mg/dL (0.2-1.0); Protein, Total 6.2 g/dL (6.4-8.2)
[2021-02-13] MEDS: AMLODIPINE 5 MG TAB PO SCH (08:30)
[2021-02-13] MEDS: ENSURE ENLIVE 237 ML CAN PO SCH ×2 (08:30→21:24)
[2021-02-13] MEDS: MEGESTROL 400 MG/10 ML UCUP PO SCH ×2 (08:30→21:23)
[2021-02-13] MEDS: APIXABAN 5 MG TABLET PO SCH ×2 (08:30→21:23)
[2021-02-13] MEDS: SOTALOL HCL 80 MG TAB PO SCH ×2 (08:30→21:22)
[2021-02-13] MEDS: D5NS KCL 20MEQ 20 MEQ/1,000 ML BAG IV SCH (08:35)
[2021-02-13] MEDS ORDERED: LACTULOSE 20 GM/30 ML UCUP PO PRN (13:53)
--- NOTE | 2021-02-13 13:53 | P.PN ---
Subjective Date of Service: 02/13/21 Subjective: No new changes, Tolerating diet (States appetite has improved, tolerating p.o. better Ambulating some Answer so await results of his biopsy) Physical Examination - Vital Signs Temperature: 97.8 F Blood Pressure: 131/62 Pulse: 57 Respirations: 18 Pulse Ox (%): 97 - Physical Exam General: Alert, In no apparent distress, Oriented x3 HEENT: Atraumatic, Normocephalic Neck: 2+ carotid pulse no bruit, JVD not distended Respiratory: Clear to auscultation bilaterally, Normal air movement Cardiovascular: Normal pulses, Regular rate/rhythm, Normal S1 S2 Gastrointestinal: Normal bowel sounds, Soft and benign, Non-distended Musculoskeletal: No clubbing Neurological: Normal speech, Normal strength at 5/5 x4 extr, Sensation intact - Studies Medications List Reviewed: Yes Assessment And Plan - Current Problems (Diagnosis) (1) Pancreatic mass Current Visit: Yes Status: Acute (2) Atrial fibrillation Current Visit: No Status: Acute (3) CAD (coronary artery disease) Onset Date: 05/09/17 Current Visit: No Status: Acute Qualifiers: (4) Diastolic heart failure Current Visit: No Status: Acute - Plan PLAN Improving p.o. intake and appetite now Continue Megace and Remeron Previously refusing G-tube for anorexia but no longer needed States he would like to wait in the hospital until result of his pancreatic biopsy report We will defer to Dr. Wilson to follow in a.m. c/w nutritional supplements 1 can 3 times daily Moving bowels well, continue lactulose, will reduce dose now -GI and DVT prophylaxis
[2021-02-13] MEDS: MIRTAZAPINE 15 MG TAB PO SCH (21:22)
[2021-02-14] MEDS: MORPHINE 2 MG/ML SYR IV PRN ×2 (00:48→11:12)
[2021-02-14 05:30] LABS: Absolute Lymphocytes (CBC) 0.9 K/uL (0.7-4.9); Basophils % 0.7 % (0-1.3); Lymphocytes % 24.7 % (15.3-44.8); MPV 8.5 fL (7.6-11.3); RBC Red Blood Cell Count 3.48 M/uL (4.33-5.43)
[2021-02-14 05:38] LABS: ALT/SGPT 20 U/L (12-78); AST/SGOT 22 U/L (15-37); Albumin 2.3 g/dL (3.4-5.0); Alkaline Phosphatase 74 U/L (45-117); BUN Blood Urea Nitrogen 6 mg/dL (7-18); Bicarbonate 27 mmol/L (21-32); Bilirubin Total 0.5 mg/dL (0.2-1.0); Glucose Level 116 mg/dL (74-106); Potassium 3.8 mmol/L (3.5-5.1); Protein, Total 5.6 g/dL (6.4-8.2); Sodium Level 143 mmol/L (136-145)
[2021-02-14] MEDS: AMLODIPINE 5 MG TAB PO SCH (08:00)
[2021-02-14] MEDS: SOTALOL HCL 80 MG TAB PO SCH (08:00)
[2021-02-14] MEDS: APIXABAN 5 MG TABLET PO SCH (08:00)
[2021-02-14] MEDS: ENSURE ENLIVE 237 ML CAN PO SCH (08:00)
[2021-02-14] MEDS: MEGESTROL 400 MG/10 ML UCUP PO SCH (08:00)
--- NOTE | 2021-02-14 09:55 | P.DS ---
Admission Date: 02/08/21 Discharge Date: 02/14/21 Primary Care Provider: Dr. Wilson(Covering him) Disposition: ROUTINE DISCHARGE Discharge Condition: GOOD Consultations: Surgery-Dr. Winslow Procedures: COVID: Negative CT scan 02/02/2021: COMPARISON: Abdomen Pelvis W Contrast dated 08/09/2017; Abdomen Pelvis W Contrast dated 01/01/2017; CT ABD PELVIS W CONTRAST dated 09/22/2013; Upper Lower Extrem Art Multi dated 01/17/2021 TECHNIQUE: CT of the abdomen and pelvis was performed. All CT scans are performed using dose optimization technique as appropriate and may include automated exposure control or mA/KV adjustment according to patient size. FINDINGS: Lower chest: Small left pleural effusion. Multi-vessel coronary artery disease. Aortic valve calcifications. Liver: No acute abnormality or suspicious lesions. Biliary: No biliary ductal dilatation. Stomach: There is a mass along the cardia of the stomach measuring 3.6 cm . Duodenum: No significant focal abnormality. Pancreas: There is ill-defined soft tissue near the tail the pancreas. Spleen: Splenic mass measuring 4.9 cm which is new. Adrenal: No suspicious lesions. Kidney/ureter: No hydronephrosis. No renal calculi. Retroperitoneum: 2.4 cm enlarged retroperitoneal lymph node. Vascular: No aneurysm. Bowel: No significant focal abnormality. Peritoneum: Soft tissues/adenopathy at the celiac trunk nodes measuring up to 3.8 cm. Bladder: Grossly unremarkable. Reproductive: No adnexal masses. Bones: No acute fracture. Severe degenerative changes are present in the left h ip. Intramedullary franky in the right femur. Multilevel degenerative changes are present in the spine. IMPRESSION: Metastatic disease. Favored gastric primary with lymphadenopathy to the celiac axis lymph nodes and retroperitoneal lymph nodes. New splenic mass also present concerning for metastatic disease. Small left pleural effusion which may be reactive or malignant. The large left retroperitoneal lymph node would likely be the easiest site for sampling to do both confirm metastatic disease and establish the primary organ. CT guided biopsy 02/04/2021: CLINICAL HISTORY: Intraabdominal mass with abnormal lymphadenopathy. 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 February 02 CT imaging showed an approximately 4 centimeter mass between the pancreatic tail and stomach, suspected to be primary gastric mass. A 5 centimeter splenic lesion is present and there is abnormal lymphadenopathy along the celiac axis and the aorta. A 4 x 2.5 cm left periaortic lymph node was selected for biopsy. The CT-guided biopsy procedure, risks and alternatives were discussed with the patient in detail. Both oral and written consent were obtained. A time-out procedure was performed. IV access and physiologic monitors were in place. Keila boles was adequately off of his anticoagulation medication for this procedure. No contraindicated allergy or medication noted. No lab values noted but would preclude this biopsy procedure. Patient was placed prone on the CT table. Preliminary imaging identified the left flank access site. Patient was pre-medicated with 1.0 milligrams Versed said IV and 100 micrograms fentanyl IV. Skin was prepped and draped in the usual sterile fashion. Skin and deeper tissues were anesthetized with 1% lidocaine. Using CT guidance, a 17 gauge introducer needle was advanced and placed at the lateral posterior margin of the mass. A total of 3 2 centimeter core biopsies were obtained. Tissue sample appeared to be adequate. Introducer needle was withdrawn. Hemostasis was obtained at the puncture site with sterile bandage placed. CT imaging during and subsequent to the biopsy showed no retroperitoneal hemorrhage or post biopsy complication. Patient's vital signs were stable throughout the procedure. Conscious sedation time was 40 minutes. Patient was transferred back to the floor for continued care. All obtained tissue was given to pathology for pending histologic assessment. IMPRESSION: CT-guided biopsy was performed on a 4 x 2.5 cm left periaortic lymph node. Patient tolerated procedure well without immediate complication. All obtained material was given to pathology for histologic assessment. Medical Problem list: Anorexia, constipation Recent CT-guided biopsy performed to the left periaortic lymph node, 4 x [address] scan showing possible metastatic disease with mass along the cardia of the stomach measuring 3.6 cm, ill-defined soft tissue near the tail of the pancreas, new splenic mass 4.9 cm, 2.4 cm enlarged retroperitoneal lymph node, and soft tissue adenopathy at the celiac trunk measuring 3.8 cm. Atrial fibrillation Chronic diastolic CHF CAD Hypertension GERD Brief History of Present Illness: 85-year-old male with recent hospitalization. Patient presented with anorexia, nausea and constipation. Patient had biopsy done recently due to abnormal CT scan. Hospital Course: Patient presented with anorexia and constipation. Patient recently had CT- guided biopsy of the left periaortic lymph node measuring 4 x 2 cm. Patient had abnormal CT scan showing metastatic disease with a mass along the cardia of the stomach measuring 3.6 cm, ill-defined soft tissue near the tail of the pancreas, new splenic mass 4.9 cm, 2.4 cm enlarged retroperitoneal lymph node and soft tissue adenopathy at the celiac trunk measuring 3.8 cm. Patient was not able to eat appropriately. During the course of his stay patient was evaluated by surgery. Surgery was considering placement of J-tube or feeding tube. Patient declined. Patient wanted to try oral intake. Patient has done well with mechanical soft diet. Patient tolerating diet at this time. Recent biopsy results pending. No need for further intervention at this time. Patient will go home. Patient may continue with Ensure 1 can twice daily to make sure his nutrition is adequate. Patient with recent constipation, patient may continue with lactulose twice daily as needed for constipation. Recommend follow-up with PCP in 1 week to follow-up recent biopsy. Biopsy pending at discharge. Patient with history of atrial fibrillation on chronic anticoagulation therapy. At discharge patient will continue with his current medications of sotalol 80 mg 1 pill twice daily and Eliquis 5 mg 1 pill twice daily. Recommend follow-up with cardiology to further monitor and address. Patient with hypertension. At discharge patient will continue with Norvasc 5 mg daily. Recommend to maintain blood pressure less than 130/80. Further adjustment can be done by his PCP. Patient with Parkinson's. At discharge patient will continue with carbidopa levodopa 25/100 mg 1 pill twice daily. Fall precautions in place. Patient with GERD. At discharge patient may continue with Protonix [address] scan showed mass to the cardia of the stomach measuring 3.6 cm. This will need to be evaluated by GI as outpatient with EGD. Recommend to establish care with GI to address. . Patient with chronic diastolic CHF. Overall stable. At discharge patient will continue with Lasix 80 mg daily. Recommend to continue 1500 cc/day fluid restriction and low-salt diet. Patient with chronic pain. At discharge patient may continue with tramadol 50 mg 3 times a day as needed for pain. Vital Signs/Physical Exam: Temp Pulse Resp BP Pulse Ox 97 F 65 16 133/62 90 L 02/14/21 08:00 02/14/21 08:00 02/14/21 08:00 02/14/21 08:00 02/14/21 08:00 General: Alert, In no apparent distress, Oriented x3, Cooperative HEENT: Atraumatic Neck: Supple Respiratory: Clear to auscultation bilaterally, Normal air movement Cardiovascular: Normal pulses, Regular rate/rhythm Gastrointestinal: Normal bowel sounds Musculoskeletal: No erythema, No tenderness, No warmth Integumentary: No tenderness/swelling, No erythema, No warmth, No cyanosis Neurological: Normal speech, Normal strength at 5/5 x4 extr, Normal tone, Normal affect Laboratory Data at Discharge: WBC 3.60 K/uL (4.3-10.9) L 02/14/21 05:12 Hgb 10.1 g/dL (13.6-17.9) L 02/14/21 05:12 Hct 31.0 % (39.6-49.0) L D 02/14/21 05:12 Plt Count 172 K/uL (152-406) 02/14/21 05:12 Sodium 143 mmol/L (136-145) 02/14/21 05:12 Potassium 3.8 mmol/L (3.5-5.1) 02/14/21 05:12 BUN 6 mg/dL (7-18) L 02/14/21 05:12 Creatinine 0.64 mg/dL (0.55-1.3) 02/14/21 05:12 Glucose 116 mg/dL (74-106) H 02/14/21 05:12 Phosphorus 2.7 mg/dL (2.5-4.9) 02/11/21 05:31 Magnesium 2.0 mg/dL (1.8-2.4) 02/13/21 12:25 Total Bilirubin 0.5 mg/dL (0.2-1.0) 02/14/21 05:12 AST 22 U/L (15-37) 02/14/21 05:12 ALT 20 U/L (12-78) 02/14/21 05:12 Alkaline Phosphatase 74 U/L (45-117) 02/14/21 05:12 Lipase 48 U/L (73-393) L 02/11/21 05:31 Home Medications: Apixaban [Eliquis] 5 mg PO BID 08/31/20 Carbidopa/Levodopa [Carbidopa-Levo 25-100 mg Odt] 1 each PO BID 08/31/20 Sotalol HCl [Sotalol AF] 80 mg PO BID 08/31/20 Furosemide [Lasix] 2 tab PO DAILY 02/02/21 Acetaminophen [Tylenol Extra Strength] 2 tab PO Q8H PRN 02/06/21 Tramadol HCl [Ultram] 1 tab PO Q6H PRN 02/06/21 Amlodipine [Norvasc*] 5 mg PO DAILY #30 tab 02/14/21 Ensure Enlive 237 ml PO BID #60 can 02/14/21 Lactulose [Cephulac*] 30 ml PO DAILY PRN #1 bottle 02/14/21 Pantoprazole [Protonix Tab] 40 mg PO DAILY #30 tab 02/14/21 New Medications: Lactulose [Cephulac*] 30 ml PO DAILY PRN #1 bottle PRN Reason: Constipation Ensure Enlive 237 ml PO BID #60 can Amlodipine [Norvasc*] 5 mg PO DAILY #30 tab Pantoprazole [Protonix Tab] 40 mg PO DAILY #30 tab Physician Discharge Instructions: Patient presented with anorexia and constipation. Patient recently had CT- guided biopsy of the left periaortic lymph node measuring 4 x 2 cm. Patient had abnormal CT scan showing metastatic disease with a mass along the cardia of the stomach measuring 3.6 cm, ill-defined soft tissue near the tail of the pancreas, new splenic mass 4.9 cm, 2.4 cm enlarged retroperitoneal lymph node and soft tissue adenopathy at the celiac trunk measuring 3.8 cm. Patient was not able to eat appropriately. During the course of his stay patient was evaluated by surgery. Surgery was considering placement of J-tube or feeding tube. Patient declined. Patient wanted to try oral intake. Patient has done well with mechanical soft diet. Patient tolerating diet at this time. Recent biopsy results pending. No need for further intervention at this time. Patient will go home. Patient may continue with Ensure 1 can twice daily to make sure his nutrition is adequate. Patient with recent constipation, patient may continue with lactulose twice daily as needed for constipation. Recommend follow-up with PCP in 1 week to follow-up recent biopsy. Biopsy pending at discharge. Patient with history of atrial fibrillation on chronic anticoagulation therapy. At discharge patient will continue with his current medications of sotalol 80 mg 1 pill twice daily and Eliquis 5 mg 1 pill twice daily. Recommend follow-up with cardiology to further monitor and address. Patient with hypertension. At discharge patient will continue with Norvasc 5 mg daily. Recommend to maintain blood pressure less than 130/80. Further adjustment can be done by his PCP. Patient with Parkinson's. At discharge patient will continue with carbidopa levodopa 25/100 mg 1 pill twice daily. Fall precautions in place. Patient with GERD. At discharge patient may continue with Protonix [address] scan showed mass to the cardia of the stomach measuring 3.6 cm. This will need to be evaluated by GI as outpatient with EGD. Recommend to establish care with GI to address. . Patient with chronic diastolic CHF. Overall stable. At discharge patient will continue with Lasix 80 mg daily. Recommend to continue 1500 cc/day fluid restriction and low-salt diet. Patient with chronic pain. At discharge patient may continue with tramadol 50 mg 3 times a day as needed for pain. Diet: mechanical Activity: Fall precautions Followup: Ronn Wilson MD [Primary Care Provider] - Time spent managing pt's care (in minutes): 55
[2021-02-14] MEDS ORDERED: MORPHINE 2 MG/ML SYR IV PRN (11:21)
[2021-02-14 11:50] VITALS: BP 137/63; TEMP 97.2
== END 2021-02-14 14:15 | disposition home or self-care (01) | DRG 641 ==
LOC: ER 17:03 → ERHOLD 18:01 → 2ND 20:27 → OBSVTOIN 02-08 17:45
PROVIDERS: ADMIT Hospitalist; ATTEND Family Medicine
DX: E86.0 Dehydration (principal); C78.89 Secondary malignant neoplasm of other digestive organs; I50.32 Chronic diastolic (congestive) heart failure; I11.0 Hypertensive heart disease with heart failure; G89.29 Other chronic pain; K86.9 Disease of pancreas, unspecified; K59.00 Constipation, unspecified; I25.10 Atherosclerotic heart disease of native coronary artery without angina pectoris; I48.91 Unspecified atrial fibrillation; K21.9 Gastro-esophageal reflux disease without esophagitis; I25.2 Old myocardial infarction; R13.10 Dysphagia, unspecified; R63.0 Anorexia; Z88.1 Allergy status to other antibiotic agents; Z68.23 Body mass index [BMI] 23.0-23.9, adult; Z88.5 Allergy status to narcotic agent; Z88.8 Allergy status to other drugs, medicaments and biological substances; Z79.82 Long term (current) use of aspirin; Z95.5 Presence of coronary angioplasty implant and graft; Z85.828 Personal history of other malignant neoplasm of skin; Z79.01 Long term (current) use of anticoagulants; Z79.899 Other long term (current) drug therapy; Z20.822 Contact with and (suspected) exposure to COVID-19
CPT/HCPCS: 36415; 74230; 80048; 80053; 80076; 81003; 82274; 82607; 82746; 82947; 83540; 83690; 83735; 84100; 85025; 92611; 97116; 97161; 97530; 99285; G0378; J2270; J2405; J3480; J7030; J7042; U0003

== ENCOUNTER 2021-02-14 16:30 | Emergency (ER) | payer OTHER ==
--- OUTSIDE RECORDS SUMMARY | 2021-02-14 16:33 | XMS REPORT | Clinical Summary ---
:1935 Author Organization [facility] MD [facility] Address [address] [place] [address] Care Team Providers Name Role Phone Kuldeep [...] g 12/18/2018 Active (PREVIDENT) 1.1 % daily. 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 hospitlilized x 10 days. requ ired IV abx and debridement RI EXC SKIN MALIG 0.6-1 09/19/2018 Right Procedur e: EXCISION OF CM REMAINDR BODY MALIGNANT LESIO N OF SCALP; Surgeon: Roshan Sauceda MD; Location: MAIN OR; Service: HN - HEAD & NECK SURGERY Medical devices from this surgery are in t he Implants section. RI SUB GRFT 09/19/2018 Right Procedure: APPLI CATION OF F/S/N/H/F/G/M/D /<100SCM SKIN WU BSTITUTE GRAFT TO /<1ST 25 SCM SCALP; Surgeon: Roshan Sauceda MD; Loca tion: MAIN OR; Service: HN - HEAD & NECK SURGERY Medical devices from this surgery are in t he Implants section. RI EXC SKIN MALIG 0.6-1 10/10/2018 Midline Procedur e: EXCISION OF CM REMAINDR BODY MALIGNANT LESIO N OF SCALP; Surgeon: Roshan Sauceda MD; Location: MAIN OR; Service: HN - HEAD & NECK SURGERY Medical devices from this surgery are in t he Implants section. RI FREE MUSC-SKIN FLAP 10/10/2018 Back/Right Procedure : FREE MUSCLE OR W/MICROVASC ANAST MYOCUTANEOUS F LAP WITH MICRVASCULAR TUCKER STOMOSIS; Surgeon: Charles Moreno MD; Location: MAIN O R; Service: PLS - PLASTIC WU RGERY Medical devices from this surgery are in t he Implants section. RI SPLIT GRFT 10/10/2018 Thigh/Right Procedure: SPLIT THICKNESS TRUNK,ARM,LEG <100 SQCM SKIN GRA FT OF TRUNK/ARM OR LEG [id number]; Wu rgeon: Charles Moreno MD; Loca tion: MAIN OR; Service: PL S - PLASTIC SURGERY Medical devices from this surgery are in t he Implants section. RI CHG FLUOROSCOPY UP TO 10/30/2018 Right Procedu re: FLUOROSCOPY; 1 HOUR PHYSICIAN/QHP Surgeon: Srinivasa Simmons MD; TIME Location: MAIN O R; Service: ORTHOPEDIC ONCOL OGY Medical devices from this surgery are in t he Implants section. RI OPEN FIX 10/30/2018 Hip/Right Procedure: OPEN REDUCTION [...] carcinoma of skin 2014 Coronary arteriosclerosis 2011 AL n 2011 with had chest pains. sp cardiac stents x 2 ( reportedly had another AL during pr ocedure). 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 Microvascular Anastomotic Device 2.5mm - [id number] Card ioPulm Scalp Tracelytics JOHN 04/24/2023 [id number] / Implanted: Qty: 1 on 10/10/2018 by Charles Moreno MD at [facility] / [id number] Biomet Hip Frac Nail 11*400mm Rt Implant Right: [employer] 06/10/2028 [id number] / Implanted: Qty: 1 on 10/30/2018 by Ramón Simmons MD at [facility] Femur / [id number] Biomet Hf-Nail Lag Screw 10.5*105mm Implant Right: [employer] 08/07/2027 [id number] / Implanted: Qty: 1 on 10/30/2018 by Ramón Simmons MD at [facility] Femur / [id number] Biomet Cortical Bone Screw 5*54mm Implant Right: [employer] 06/26/2026 [id number] / Implanted: Qty: 1 on 10/30/2018 by Ramón Simmons MD at [facility] Femur / [id number] Integra Bp Dural Graft 4x5cm - Sna Skin/Tissue [employer] 05/26/2020 [id number] / Implanted: Qty: 1 on 09/19/2018 by Roshan Sauceda MD at [facility] NA / [id number] Cardiac Stents Description: 2010 x2,, 2018 x1 Pins Description: pins on the left elbow Results Not on fileafter 02/15/2020 Insurance Payer Benefit Plan / Subscriber ID Effective Dates Phone Addre ss Type Group AETNA MEDICARE AETNA MEDICARE [id number] 2013-Margarita SWANSON [id number] [place] [address] Advance Directives Code Status Date Activated Date Inactivated Comments Full Code 10/29/2018 6:58 PM 11/12/2018 9:54 PM Full Code 10/10/2018 10:29 AM 10/15/2018 8:46 PM Care Teams Weatherization Technician Relationship Specialty Start Date End Date Kuldeep Melgoza MD PCP - External Dermatology 08/16/18 [address] [facility] [place] [address] Roshan Sauceda MD PCP - General Head and Neck Surgery 08/16/18 [facility] [place] [address] Ronn Wilson, PCP - External Primary Family Practice 09/04/17 MD Care Provider [address] [place] [id number] Pollo Navarro PCP - External Follow Cardiology 09/04/17 MD Rae Up A [address] [place] [id number]
--- OUTSIDE RECORDS SUMMARY | 2021-02-14 16:39 | XMS REPORT | Continuity of Care Document ---
:1935 Author Organization [facility] t Address [address] [place] [address] Dr. Crawford. [address] [place] [address] Care Team Providers Name Role Phone Katie Primary Care Physician Sumeet WOLF Attending Clinician Unavailable Isak MANTILLA Attending Clinician Unavailable Kirk LOCKETT, Sumeet Attending Clinician Only, Test Attending Clinician Unavailable Doctor Unassigned, Name Attending Clinician Unavailable Isak Mantilla MD Attending Clinician Sarah Ortiz MD Attending Clinician Veronica LOCKETT, Betito Attending Clinician Pob, Lab Main Attending Clinician Unavailable Dora LOCKETT Attending Clinician Sumeet WOLF Admitting Clinician Unavailable Isak MANTILLA Admitting Clinician Unavailable Kirk LOCKETT, Sumeet Admitting Clinician Payers Payer Name Policy Type Policy Effective Date Expiration Date Sour ce Number AETNA MANAGED [id number] 2020 MEDICARE PPO-FERNANDO 00:00:00 AETNA MEDICARE O [id number] POS PPO 00:00:00 AETNA MEDICAREAETNA [id number] 2013 [place] MEDICARE 00:00:00 [id number] [place] [address]Medicare Problems Condition Condition Condition Status Onset Resolution Last Treating Co mments Source Name Details Category Date Date Treatment Clinician Date NSTEMI NSTEMI Disease Active [facility] - elevated elevated 00:00: Medica l myocardial myocardial 00 Ce nter infarction infarction ) ) FEVER Diagnosis Active 2018-022019-01-27 Mem oria 03-11 22:24:00 l FEVER 00:00: [place] 00 Active 01/09/2019 MH Stuart Unexplaine Unexplaine Disease Active 2018-02 Last M [...] Displaced Displaced Disease Active Overview: intertroch intertroch 9 Formattin Anderso anteric anteric 00:00: g of this n fracture fracture 00 note of right of right might be femur femur different from the original. Added automatic ally from request for surgery [id number] Encounter Encounter Disease Active Overview: for other [...] 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 [id number] Carotid Duplex: <50% plaque within right ICA, normal left ICA, antegrade flow within bilateral vertebral arteriesO [place] [facility] 05/09/17: LAD prox patent stent X 2, mid 95% successfu l PCI to LADEchoca rdiogram: 05/08/17: normal LVH, 60-65%, LVH, aortic valve sclerosis , mild pHTNStres s test 07/09/18: adenosine nuclear stress: mildly abnormal myocardia l perfusion (low risk scan based on my discussio n with his home cardiolog ist) per Cardiolog y note 10/02/18 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 00 Atrial Problem Active 2020-09-09 Memor ia fibrillati 00:53:30 l on Atrial Philip (disorder) fibrillati on (disorder) Active Problem 09/09/2020 [facility] Carpal Problem Active 2020-09-09 Memor ia tunnel 00:53:30 l syndrome Carpal Clifford n (disorder) tunnel syndrome (disorder) Active Problem 09/09/2020 [facility] Paresthesi Problem Active 2020-09-09 M emoria a 00:53:30 l (finding) [place] Paresthesi a (finding) Active Problem 09/09/2020 [facility] [...] 1-14 22:44:12 22:44:12 l fever) Chills 18:00: [place] (without 00 fever) 01/09/2019 01/21/2019 Stuart Allergies, Adverse Reactions, Alerts Allergy Allergy Status Severity Reaction(s) Onset Inactive Treating Comm ents Source Name Type Date Date Clinician CODEINE DRUG Active Unknown-Cmnt Uni vers INGREDI 7-20 ity of 00:00: [place] [facility] CEPHALEX DRUG Active Unknown-Cmnt Un mary IN INGREDI 7-20 ity of 00:00: [place] 00 [facility] Codeine Propensi Active Unknown - Univ ers ty to See comments 7-20 ity of adverse 00:00: [place] reaction 00 [facility] Cephalex Propensi Active Unknown - Uni vers in ty to See comments 7-20 ity of adverse 00:00: [place] reaction 00 [facility] NO KNOWN Drug Active Univers ALLERGIE Class ity of S [facility] codeine codeine Active Memoria l Philip Cipro [...] Exposure to Not sure University SARS-CoV-2 (event) [facility] History [facility] 2020-09-26 2020-09-[address] [facility] - Alcohol Frequency 00:00:00 00:00:00 Medical Center History [facility] 2020-09-26 2020-09-[address] [facility] - Alcohol Std Drinks 00:00:00 00:00:00 Medica l Center History [facility] 2020-09-26 2020-09-[address] [facility] - Alcohol Binge 00:00:00 00:00:[address] Social History 2020-08-09 2020-08-09 [facility] 20:37:37 20:37:37 Alcohol intake 2018-12-17 2018-12-17 Ex-drinker MD Adam romero 00:00:00 00:00:00 (finding) Cigarettes smoked 2018-09-04 2018-09-04 MD Arya mitchell current (pack per 00:00:00 00:00:00 day) - Reported Cigarette 2018-09-04 2018-09-04 MD Blackwell pack-years 00:00:00 00:00:00 Tobacco use and 2018-09-04 2018-09-04 Former smokeless MD Blackwell exposure 00:00:00 00:00:00 tobacco user Sex Ass[birth year] At [birth year] Univers[facility] 00:00:00 00:00:00 [facility] Smoking Status Start Date Stop Date Source Unknown if ever smoked [facility] Never smoker [facility] Social History 2019-01-10 07:34:37 2019-01-10 07[facility] Ordered Filled Start Stop Current Ordering Indication Dosage Frequency Signature Comments Components Source Medication Medication Date Date Medication? Clinician (SIG) Name Name [facility] 2020-02 Yes PRN, Univers (MIOSTAT) 0-06 Starting ity of 0.01 % 15:28: on Wed [place] intraocular 00 12/01/20 at In dical injection 1028, Branch Until Discontinu ed, [...] Wed [place] intraocular 00 :40 12/01/20 at In dical injection 1028, Branch Until 12/01/20 at [...] injection Routine, Intra-op neomycin-po 2020-02 Yes PRN, Univjax s lymyxin-dex 0-06 Starting ity of amethasone 15:27: on Wed [place] (MAXITROL) 00 12/01/20 at [facility] ica 3.5 1027, Branch mg/g-10,000 Until unit/g-0.1 Discontinu % ed, ophthalmic Routine, ointment Intra-op neomycin-po 2020-02- No PRN, Unive rs lymyxin-dex 0-06 10-06 Starting ity of amethasone 15:27: 18:16 [place] Sun [place] (MAX[place]ROL[place] 00 :40 12/01/20 at [facility] ica 3.5 1027, Branch mg/g-10,000 Until Wed unit/g-0.1 12/01/20 at % 1316, ophthalmic Routine, ointment Intra-op balanced 2020-02 Yes PRN, Univers salt irrig 0-06 Starting ity o f soln comb1 15:23: on Sun (BSS PLUS) 00 12/01/20 at [facility] ophthalmic 1023, Branch solution Until 500 mL bag Discontinu ed, Routine, Intra-op EPINEPHrine 2020-02 Yes PRN, Univer s 1:1,000 (1 0-06 Starting ity o f mg/mL) 15:23: on Sun (ADRENALIN) 00 12/01/20 at In dical injection 1023, Branch Until Discontinu ed, Routine, Intra-op balanced 2020-02- No PRN, Univers salt irrig 0-06 10-06 Starting ity of soln comb1 15:23: 18:16 [place] Sun [place] (B[place] PLUS[place] 00 :40 12/01/20 at [facility] ophthalmic 1023, Branch solution Until Sun 500 mL bag 12/01/20 at 1316, Routine, Intra-op EPINEPHrine 2020-02- No PRN, Unive rs 1:1,000 (1 0-06 10-06 Starting ity of mg/mL) 15:23: 18:16 on Sun (ADRENALIN) 00 :40 12/01/20 at In dical injection 1023, Branch Until 12/01/20 at [...] [place] solution 00 :40 12/01/20 at [facility] al 1019, Branch Until Sun12/01/20 at 1316, Routine, Intra-op Hyaluronida 2020-02 Yes PRN, Univer s se, Human 0-06 Starting ity of Recomb. 15:15: on Sun [place] (HYLENEX) 00 12/01/20 at [facility] injection 1015, Branch Until Discontinu ed, Routine, Intra-op eye block 2020-02 Yes PRN, Univers syringe 11 0-06 Starting ity o f mL 15:15: on Sun [place] 00 12/01/20 at [place] [id number], Branch Until Discontinu ed, Intra-op Hyaluronida 2020-02- No PRN, Unive rs se, Human 0-06 10-06 Starting ity o f Recomb. 15:15: 18:16 on Sun [place] (HYLENEX) 00 :40 12/01/20 at [facility] injection 1015, Branch Until Sun12/01/20 at 1316, Routine, Intra-op eye block 2020-02- No PRN, Univers syringe 11 0-06 10-06 Starting ity of mL 15:15: 18:16 on Sun [place] 00 :40 12/01/20 at [place] [id number], Branch Until Sun12/01/20 at 1316, Intra-op mydriatic [...] 0-06 by mouth. ity of tablet 11:16: [address] famotidine 2020-02 Yes 20mg Take 20 mg U nivers 20 mg 0-06 by mouth. ity of tablet 11:16: [address] aspirin 81 2020-02 Yes 81mg Take 81 mg U nivers mg EC 0-06 by mouth. ity of tablet 11:16: [address] famotidine 2020-02 Yes 20mg Take 20 mg U nivers 20 mg 0-06 by mouth. ity of tablet 11:16: [address] sotaloL Yes life-threat 80mg Q.5D Take [...] Medical tablet 16 Center furosemide Yes 80mg [id number] Take [address] [facility] (LASIX) 80 8-04 [id number] by mouth [facility] - MG tablet [...] 7-21 by mouth. ity of tablet 20:06: [address] famotidine Yes 20mg Take 20 mg U nivers 20 mg 7-21 by mouth. ity of tablet 20:06: [address] aspirin 81 0 Yes 81mg Take 81 mg U nivers mg EC 7-21 by mouth. ity of tablet 20:06: [address] famotidine Yes 20mg Take 20 mg U nivers 20 mg 7-21 by mouth. ity of tablet 20:06: [address] balanced 0 Yes PRN, Univers salt irrig 09-15 Starting ity o f soln comb1 18:58: Wed [place] (BSS PLUS) 00 09/15/20 at [facility] ical ophthalmic 1358, Branch solution Until 500 mL bag Discontinu ed, Routine, Intra-op carbachoL 0 Yes PRN, Univers (MIOSTAT) 09-15 Starting ity of 0.01 % 18:58: Sun [place] intraocular 00 09/15/20 at In dical injection 1358, Branch Until Discontinu ed, Routine, Intra-op dexamethaso Yes PRN, Univer s ne 09-15 Starting ity of (DECADRON 18:58: Sun [place] PHOSPHATE) 09/15/20 at [facility] ical injection 1358, Branch Until Discontinu ed, Routine, Intra-op DUOVISC Yes PRN, Univers (DUOVISC 09-15 Starting ity of VISCO 18:58: Wed [place] ELASTIC) 3 00 09/15/20 at [facility] ical %-4 %(0.5 1358, Branch mL) 1 % Until (0.55 mL) Discontinu intraocular ed, injection Routine, Intra-op balanced 2020- No PRN, Univers salt irrig 09-15 Starting ity of soln comb1 18:58: 22:06 Wed [place] (BSS PLUS) 00 :51 09/15/20 at [facility] ical ophthalmic 1358, Branch solution Until Sun 500 mL bag 09/15/20 at 1706, Routine, Intra-op carbachoL 2020- No PRN, Univers (MIOSTAT) 09-15 Starting ity o f 0.01 % 18:58: 22:06 Wed [place] intraocular 00 :51 09/15/20 at In dical injection 1358, Branch Until 09/15/20 at 1706, Routine, Intra-op dexamethaso 2020- No PRN, Unive rs ne 09-15 Starting ity of (DECADRON 18:58: 22:06 Wed [place] PHOSPHATE) 00 :51 09/15/20 at [facility] ical injection 1358, Branch Until Sun09/15/20 at 1706, Routine, Intra-op DUOVISC 2020- No PRN, Univers (DUOVISC 09-15 Starting ity of VISCO 18:58: 22:06 [facility] [place] ELASTIC) 3 00 :51 09/15/20 at [facility] ical %-4 %(0.5 1358, Branch mL) 1 % Until Wed (0.55 mL) 09/15/20 at intraocular 1706, injection Routine, Intra-op neomycin-po Yes PRN, Univer s lymyxin-dex 09-15 Starting ity of amethasone 18:57: Wed [place] (MAXITROL) 00 09/15/20 at [facility] ical 3.5 1357, Branch mg/g-10,000 Until unit/g-0.1 Discontinu % ed, ophthalmic Routine, ointment Intra-op neomycin-po 2020- No PRN, Unive rs lymyxin-dex 09-15 Starting ity of amethasone 18:57: 22:06 [facility] (MAXITROL) 00 :51 09/15/20 at [facility] ical 3.5 1357, Branch mg/g-10,000 Until Sun unit/g-0.1 09/15/20 at % 1706, ophthalmic Routine, ointment Intra-op EPINEPHrine Yes PRN, Univer s 1:1,000 (1 09-15 Starting ity o f mg/mL) 18:53: Sun [place] (ADRENALIN) 00 09/15/20 at In dical injection 1353, Branch Until Discontinu ed, Routine, Intra-op EPINEPHrine 2020- No PRN, Unive rs 1:1,000 (1 09-15 Starting ity of mg/mL) 18:53: 22:06 [facility] [place] (ADRENALIN) 00 :51 09/15/20 at In dical injection 1353, Branch Until Sun09/15/20 at 1706, Routine, Intra-op water for Yes PRN, Univers irrigation 09-15 Starting ity o f irrigation 18:50: Sun [place] solution 00 09/15/20 at Medic al 1350, Branch Until Discontinu ed, Routine, Intra-op water for 2020- No PRN, Univers irrigation 09-15 Starting ity of irrigation 18:50: 22:06 [facility] [place] solution 00 :51 09/15/20 at Medic al 1350, Branch Until Sun09/15/20 at 1706, Routine, Intra-op Hyaluronida Yes PRN, Univer s se, Human 09-15 Starting ity of Recomb. 18:47: Sun [place] (HYLENEX) 00 09/15/20 at [facility] mendez injection 1347, Branch Until Discontinu ed, Routine, Intra-op Hyaluronida 2020- No PRN, Unive rs se, Human 09-15 Starting ity o f Recomb. 18:47: 22:06 [facility] [place] (HYLENEX) 00 :51 09/15/20 at Medi mendez injection 1347, Branch Until Sun09/15/20 at 1706, Routine, Intra-op eye block Yes PRN, Univers syringe 11 09-15 Starting ity o f mL 18:45: Wed [place] 00 09/15/20 at [facility] 1345, Branch Until Discontinu ed, Intra-op eye block 2020- No PRN, Univers syringe 11 09-15 Starting ity of mL 18:45: 22:06 Wed [place] 00 :51 09/15/20 at [facility] 1345, Branch Until Sun09/15/20 at 1706, Intra-op [...] 1,000 mL 00 :00 [facility] [place] ONCE, 1 dose, Sun09/15/20 at 1245, Routine, DSU Pre-op mydriatic 2020- No .5mL 0.5 mL, Univ ers #5 09-15 Right Eye, ity of ophthalmic 17:45: 17:39 ONCE, 1 Hernán as solution 00 :00 dose, Wed Medica l 0.5 mL 09/15/20 at [place] syringe 1245, Routine, DSU Pre-op lactated 2020- No 1000mL at 42 Unive rs ringers IV 09-15 mL/hr, ity of infusion 17:45: 17:39 1,000 mL, Hernán as 1,000 mL 00 :00 [facility] [place] ONCE, 1 dose, Sun09/15/20 at 1245, Routine, DSU Pre-op aspirin 81 Yes 81mg Take 81 mg U nivers mg EC 09-15 by mouth. ity of tablet 15:06: [address] famotidine Yes 20mg Take 20 mg U nivers 20 mg 7-21 by mouth. ity of tablet 15:06: [address] aspirin 81 0 Yes 81mg Take 81 mg U nivers mg EC 7-21 by mouth. ity of tablet 15:06: [address] famotidine 0 Yes 20mg Take 20 mg U nivers 20 mg 7-21 by mouth. ity of tablet 15:06: [address] apixaban 5 Yes TAKE 1 Memor ia MG Oral 7-12 TABLET BY l Tablet 20:03: MOUTH [place] [Eliquis] 00 TWICE A DAY LORazepam 0 [...] 7-12 TABLET BY l Tablet 20:03: MOUTH [place] [Eliquis] 00 TWICE A DAY LORazepam 2020-0 Yes 0 Memoria 0.5 mg oral 7-12 Refill(s) l tablet 20:03: Philip 00 Carbidopa 2020-0 Yes 1 tab, PO, Me moria 25 MG / 7-12 TID, # 90 l Levodopa 20:03: tab, 3 [place] 100 MG Oral 00 Refill(s), Tablet Pharmacy: [[facility] 25-100] cy #[id number], 175.26, cm, 07/19/20 14:31:00 CDT, Height, 75.909, kg, 07/19/20 14:31:00 CDT, Weight apixaban 5 0 Yes TAKE 1 Memor ia MG Oral 7-12 TABLET BY l Tablet 20:03: MOUTH [place] [Eliquis] 00 TWICE A DAY LORazepam 2020-0 Yes 0 Memoria 0.5 mg oral 7-12 Refill(s) l tablet 20:03: [place] 00 Carbidopa 2020-0 Yes 1 tab, PO, Me moria 25 MG / 7-12 TID, # 90 l Levodopa 20:03: tab, 3 Philip 100 MG Oral 00 Refill(s), Tablet Pharmacy: [[facility] 25-100] cy #[id number], 175.26, cm, 07/19/20 14:31:00 CDT, Height, 75.909, kg, 07/19/20 14:31:00 CDT, Weight carbidopa-l 2020-0 Yes 1 tab, PO, [facility] evodopa 7-12 TID, # [facility] ([facility]) 00:00: tab, 3 Medica l 25-100 mg 00 Refill(s), Cent er per tablet Pharmacy: [facility] #[id number], 175.26, cm, 07/19/20 14:31:00 CDT, [...] # 60 l Levodopa 21:52: tab, 3 [place] 100 MG Oral 00 Refill(s), Tablet Pharmacy: [...] tab, PO, l 20:02: BID, # 60 [place] 00 tab, 0 Refill(s) Sotalol 2020-0 Yes [...] moria 5-24 Daily, 0 l 20:00: Refill(s) [facility] 2018-02 No Notes: Memoria Mineral Oil -24 (Same l Enema 19:58: as: Mineral Oil Enema) [facility] 2018-02 No Notes: Memoria Mineral Oil -24 (Same l Enema 19:58: as: Mineral Oil Enema) [facility] 2018-02 No Notes: Memoria Mineral Oil -24 (Same l Enema 19:58: as: Mineral Oil Enema) naproxen 2018-02 Yes 500 mg = 1 Mem oria 500 mg oral 1-24 tab, PO, l tablet 15:04: BID, X 7 day, # 14 tab, 0 Refill(s), Pharmacy: [facility] #[id number] bisacodyl 2018-02 Yes 10 mg = 1 Mem oria 10 mg 1-24 supp, CO, l rectal 15:04: Daily, PRN Lilly nn suppository 00 Constipati on, # 10 supp, 0 Refill(s), Pharmacy: [facility] #[id number] Docusate 2018-02 Yes 100 mg = 1 Mem oria Sodium 100 1-24 cap, PO, l MG Oral 15:04: BID, # 60 Lilly nn Capsule 00 cap, 0 [Colace] Refill(s), Pharmacy: [facility] #[id number] bisacodyl 5 2018-02 Yes 10 mg = 2 M emoria mg oral 1-24 tab, PO, l enteric 15:04: Daily, PRN Herm ayush coated 00 Constipati tablet on, X 10 day, # 20 tab, 0 Refill(s), Pharmacy: [facility] #[id number] POLYETHYLEN 2018-02 Yes 17 gm, PO, Memoria E GLYCOL 1-24 Daily, PRN l 3350 142 15:04: Constipati Her pinon MG/ML Oral 00 on, # 255 Solution gm, 0 [Miralax] Refill(s), Pharmacy: [facility] #[id number] naproxen 2018-02 Yes 500 mg = 1 Mem oria 500 mg oral 1-24 tab, PO, l tablet 15:04: BID, X 7 Philip 00 day, # 14 tab, 0 Refill(s), Pharmacy: [facility] #[id number] bisacodyl 2018-02 Yes 10 mg = 1 Mem oria 10 mg 1-24 supp, CO, l rectal 15:04: Daily, PRN Lilly nn suppository 00 Constipati on, # 10 supp, 0 Refill(s), Pharmacy: [facility] #[id number] Docusate 2018-02 Yes 100 mg = 1 Mem oria Sodium 100 1-24 cap, PO, l MG Oral 15:04: BID, # 60 Lilly nn Capsule 00 cap, 0 [Colace] Refill(s), Pharmacy: [facility] #[id number] bisacodyl 2018-02 Yes 10 mg = 2 M emoria mg oral 1-24 tab, PO, l enteric 15:04: Daily, PRN Herm ayush coated 00 Constipati tablet on, X 10 day, # 20 tab, 0 Refill(s), Pharmacy: [facility] #[id number] POLYETHYLEN 2018-02 Yes 17 gm, PO, Memoria E GLYCOL 1-24 Daily, PRN l 3350 142 15:04: Constipati Her pinon MG/ML Oral 00 on, # 255 Solution gm, 0 [Miralax] Refill(s), Pharmacy: [facility] #[id number] naproxen 2018-02 Yes 500 mg = 1 Mem oria 500 mg oral 1-24 tab, PO, l tablet 15:04: BID, X 7 Philip 00 day, # 14 tab, 0 Refill(s), Pharmacy: [facility] #[id number] bisacodyl 2018-02 Yes 10 mg = 1 Mem oria 10 mg 1-24 supp, CO, l rectal 15:04: Daily, PRN Lilly nn suppository 00 Constipati on, # 10 supp, 0 Refill(s), Pharmacy: [facility] #[id number] Docusate 2018-02 Yes 100 mg = 1 Mem oria Sodium 100 1-24 cap, PO, l MG Oral 15:04: BID, # 60 Lilly nn Capsule 00 cap, 0 [Colace] Refill(s), Pharmacy: [facility] #[id number] bisacodyl 5 2018-02 Yes 10 mg = 2 M emoria mg oral 1-24 tab, PO, l enteric 15:04: Daily, PRN Herm ayush coated 00 Constipati tablet on, X 10 day, # 20 tab, 0 Refill(s), Pharmacy: [facility] #[id number] POLYETHYLEN 2018-02 Yes 17 gm, PO, Memoria E GLYCOL 1-24 Daily, PRN l 3350 142 15:04: Constipati Her pinon MG/ML Oral 00 on, # 255 Solution gm, 0 [Miralax] Refill(s), Pharmacy: [facility] #[id number] Lactulose 2018-02 No Notes: Memori a [...] MG/ML 1-23 (Same l Oral 14:13: as:Chronul [place] Solution 00 ac) Dulcolax 2018-02 No Notes: Memoria Laxative 1-23 (Same As: l 12:41: Dulcolax, [place] 00 Bisco-Lax) Dulcolax 2018-02 No Notes: Memoria Laxative 1-23 (Same As: l 12:41: Dulcolax, [place] 00 Bisco-Lax) Dulcolax 2018-02 No Notes: Memoria [...] e 1-21 Tablet l 19:15: should not [place] 00 be chewed or crushed. (Same as: Protonix) pantoprazol 2018-02 No Notes: Pepe micki e 1-21 Tablet l 19:15: should not [place] 00 be chewed or crushed. (Same as: Protonix) Phenergan 2018-02 No Notes: Memori a 1-20 (Same as: l 00:41: Phenergan) Philip Phenergan 2018-02 No Notes: Memori a 1-20 (Same as: l 00:41: Phenergan) [place] Phenergan 2018-02 No Notes: Memori a 1-20 (Same as: l 00:41: Phenergan) [place] Phenergan 2018-02 No 25 mg, Memori a 1-20 Route: IM, l 00:40: Q6H, Philip 00 Dosing Weight 74.2, kg, PRN Nausea & Vomiting, Start date: 01/14/19 18:40:00 BULK FILLER, Duration: 30 day, Stop date: 02/13/19 18:39:00 BULK FILLER Phenergan 2018-02 No 25 mg, Memori a 1-20 Route: IM, l 00:40: Q6H, Philip 00 Dosing Weight 74.2, kg, PRN Nausea & Vomiting, Start date: 01/14/19 18:40:00 BULK FILLER, Duration: 30 day, Stop date: 02/13/19 18:39:00 BULK FILLER Phenergan 2018-02 No 25 mg, Memori a 1-20 Route: IM, l 00:40: Q6H, [place] Dosing Weight 74.2, kg, PRN Nausea & Vomiting, Start date: 01/14/19 18:40:00 BULK FILLER, Duration: 30 day, Stop date: 02/13/19 18:39:00 BULK FILLER Dulcolax 2018-02 No Notes: Memoria Laxative 1-19 (Same As: l 16:12: Dulcolax, Philip 00 Bisco-Lax) Dulcolax 2018-02 No Notes: Memoria Laxative 1-19 (Same As: l 16:12: Dulcolax, [place] 00 Bisco-Lax) Dulcolax 2018-02 No Notes: Memoria Laxative 1-19 (Same As: l 16:12: Dulcolax, [place] 00 Bisco-Lax) Levaquin 2018-02 No Notes: Do [...] l / 20:49: Duoneb) Philip Ipratropium 00 [place] 0.167 MG/ML Inhalant Solution metoprolol 2018-02 No Notes: Memor ia extended 1-18 (Same as: l release 20:49: Toprol XL) Herm ayush 00 May split tab, but do not crush. Albuterol 2018-02 No Notes: Memori a 0.833 MG/ML 1-18 (Same as: l / 20:49: Duoneb) [place] Ipratropium 00 [place] 0.167 MG/ML Inhalant Solution metoprolol 2018-02 No Notes: Memor ia extended 1-18 (Same as: l release 20:49: Toprol XL) Herm ayush 00 May split tab, but do not crush. Albuterol 2018-02 No Notes: Memori a 0.833 MG/ML -18 (Same as: l / 20:49: Duoneb) Philip Ipratropium 00 [place] 0.167 MG/ML Inhalant Solution Docusate 2018-02 No 100 mg = 1 Mem oria Sodium 100 1-18 cap, PO, l MG Oral 16:51: BID, 0 [place] Capsule 00 Refill(s) Famotidine 2018-02 Yes 20 mg = 1 Me moria 20 MG Oral 1-18 tab, PO, l Tablet 16:51: BID, 0 [place] 00 Refill(s) naproxen 2018-02 No 500 mg = 2 Mem oria 250 mg oral 1-18 tab, PO, l tablet 16:51: BID, 0 [place] 00 Refill(s) Docusate 2018-02 No 100 mg = 1 Mem oria Sodium 100 1-18 cap, PO, l MG Oral 16:51: BID, 0 Philip Capsule 00 Refill(s) Famotidine 2018-02 Yes 20 mg = 1 Me moria 20 MG Oral 1-18 tab, PO, l Tablet 16:51: BID, 0 [place] 00 Refill(s) naproxen 2018-02 No 500 mg [...] Laxative -18 (Same As: l 15:00: Dulcolax, [place] 00 Correctol) (Do Not Crush) "Do Not Crush" Miralax 2018-02 No Notes: Memoria 1-18 Dissolve l 15:00: in 8 oz of Philip 00 water or juice. (Same as: Miralax) Dulcolax 2018-02 No Notes: Memoria Laxative 1-18 (Same As: l 15:00: Dulcolax, [place] 00 Correctol) (Do Not Crush) "Do Not Crush" Miralax 2018-02 No Notes: Memoria 1-18 Dissolve l 15:00: in 8 oz of [place] 00 water or juice. (Same as: Miralax) Dulcolax 2018-02 No Notes: Memoria Laxative 1-18 (Same As: l 15:00: Dulcolax, Philip 00 Correctol) (Do Not Crush) "Do Not Crush" Miralax 2018-02 No Notes: Memoria 1-18 Dissolve l 15:00: in 8 oz of [place] 00 water or juice. (Same as: Miralax) Naproxen 2018-02 No Notes: Memoria 1-17 (Same as: l 16:38: Naprosyn) [place] Take with food. Naproxen 2018-02 No Notes: Memoria 1-17 (Same as: l 16:38: Naprosyn) [place] Take with food. Naproxen 2018-02 No Notes: Memoria 1-17 (Same as: l 16:38: Naprosyn) [place] 00 Take with food. Famotidine 2018-02 No [...] n 1-16 (Same l 07:00: as:Levaqui n) Levofloxaci 2018-02 No Notes: Pepe micki n 1-16 (Same l 07:00: as:Levaqui n) Levofloxaci 2018-02 No Notes: Pepe micki n 1-16 (Same l 07:00: as:Levaqui [place] 00 n) Docusate 2018-02 No Notes: Memoria Sodium 100 1-15 (Same as: l MG Oral 23:00: Colace) [place] Capsule 00 (Do Not Crush) Docusate 2018-02 No Notes: Memoria Sodium 100 1-15 (Same as: l MG Oral 23:00: Colace) [place] Capsule 00 (Do Not Crush) Docusate 2018-02 No Notes: Memoria Sodium 100 1-15 (Same as: l MG Oral 23:00: Colace) Philip Capsule 00 (Do Not Crush) Acetaminoph 2018-02 No Notes: Do M emoria en 325 MG / 1-15 not exceed l Hydrocodone 19:50: 4gm/day of [place] Bitartrate 00 acetaminop 10 MG Oral hen. Tablet (Same as: [Rowe Rowe 10/325] 325/10) Acetaminoph 2018-02 No Notes: Do M emoria en 325 MG / 1-15 not exceed l Hydrocodone 19:50: 4gm/day of Philip Bitartrate 00 acetaminop 10 MG Oral hen. Tablet (Same as: [Rowe Rowe 10/325] 325/10) Acetaminoph 2018-02 No Notes: Do M emoria en 325 MG / 1-15 not exceed l Hydrocodone 19:50: 4gm/day of Philip Bitartrate 00 acetaminop 10 MG Oral hen. Tablet (Same as: [Rowe Rowe 10/325] 325/10) clopidogrel 2018-02 No Notes: Pepe micki 1-15 (Same As: l 15:02: Plavix) [place] 00 Flomax 2018-02 No Notes: Memoria 1-15 (Same As: l 15:02: Flomax) [place] 00 "Do Not Crush" clopidogrel 2018-02 No Notes: Pepe micki 1-15 (Same As: l 15:02: Plavix) Murdock 00 Flomax 2018-02 No Notes: Memoria 1-15 (Same As: l 15:02: Flomax) Murdock 00 "Do Not Crush" clopidogrel 2018-02 No Notes: Pepe micki 1-15 (Same As: l 15:02: Plavix) Philip 00 Flomax 2018-02 No Notes: Memoria 1-15 (Same As: l 15:02: Flomax) Murdock 00 "Do Not Crush" Morphine 2019- No 2 mg, 1 Memori a 1-15 mL, Route: l 11:04: IVP, Drug Murdock form: SOLN, Q4H, Dosing Weight 74.2, kg, PRN Pain Score 7-10, Start date: 01/10/19 5:04:00 BULK FILLER, Duration: 30 day, Stop date: 02/09/19 5:03:00 BULK FILLER, 0 Morphine 2019- No 2 mg, 1 Memori a 1-15 mL, Route: l 11:04: IVP, Drug Murdock form: SOLN, Q4H, Dosing Weight 74.2, kg, PRN Pain Score 7-10, Start date: 01/10/19 5:04:00 BULK FILLER, Duration: 30 day, Stop date: 02/09/19 5:03:00 BULK FILLER, 0 Morphine 2018- No 2 mg, 1 Memori a 1-15 mL, Route: l 11:04: IVP, Drug Philip 00 form: SOLN, Q4H, Dosing Weight 74.2, kg, PRN Pain Score 7-10, Start date: 01/10/19 5:04:00 BULK FILLER, Duration: 30 day, Stop date: 02/09/19 5:03:00 BULK FILLER, 0 Streptococc 2019- No Notes: Pepe micki us 1-15 Shake well l pneumoniae 09:35: prior to Her pinon serotype 1 51 use (Same capsular as: antigen Prevnar diphtheria 13) [id number] protein conjugate vaccine / Streptococc us pneumoniae serotype 14 capsular antigen diphtheria [id number] protein conjugate vaccine / Streptococc us pneumoniae serotype 18C capsular antigen d Streptococc 2019 No Notes: Pepe micki us 1-15 Shake well l pneumoniae 09:35: prior to Her pinon serotype 1 51 use (Same capsular as: antigen Prevnar diphtheria 13) [id number] protein conjugate vaccine / Streptococc us pneumoniae serotype 14 capsular antigen diphtheria [id number] protein conjugate vaccine / Streptococc us pneumoniae serotype 18C capsular antigen d Streptococc 2019 No Notes: Pepe micki us 1-15 Shake well l pneumoniae 09:35: prior to Her pinon serotype 1 51 use (Same capsular as: antigen Prevnar diphtheria 13) [id number] protein conjugate vaccine / Streptococc us pneumoniae serotype 14 capsular antigen diphtheria [id number] protein conjugate vaccine / Streptococc us pneumoniae [...] tab, PO, l tablet 09:19: Daily, # Murdock 00 30 tab, 0 Refill(s) atorvastati 2018-02 [...] tab, PO, l tablet 09:19: Daily, # Murdock 00 30 tab, 0 Refill(s) atorvastati 2018-02 Yes 80 mg, PO, Memoria n 1-15 Daily, 0 l 09:19: Refill(s) Philip 00 Tamsulosin 2018-02 Yes 0.4 mg = 1 M emoria hydrochlori 1-15 cap, PO, l de 0.4 MG 09:19: Daily, # Herm ayush Oral 00 30 cap, 0 Capsule Refill(s) [Flomax] Albuterol 2018-02 No Notes: Memori a 0.833 MG/ML 1-15 (Same as: 09:00: Duoneb) Philip Ipratropium 00 [place] 0.167 MG/ML Inhalant Solution Albuterol 2018-02 No Notes: Memori a 0.833 MG/ML 1-15 (Same as: l 09:00: Duoneb) Murdock Ipratropium 00 [place] 0.167 MG/ML Inhalant Solution Albuterol 2018-02 No Notes: Memori a 0.833 MG/ML 1-15 (Same as: l 09:00: Duoneb) Murdock Ipratropium 00 [place] 0.167 MG/ML Inhalant Solution Ondansetron 2018-02 No [...] emoria 15 Rate: 60 l 08:33: ml/hr, Murdock 00 Infuse over: 16.7 hr, Route: IV, Dosing Weight 74.2 kg, Total Volume: 1,000, Start date: 01/10/19 2:33:00 BULK FILLER, Duration: 1 doses or times, Stop date: 01/10/19 19:14:00 BULK FILLER, 1.91, m2, 0 NS 1,000 mL 2018-02 No 1,000 mL, M emoria 03-12 Rate: 60 l 08:33: ml/hr, Murdock 00 Infuse over: 16.7 hr, Route: IV, Dosing Weight 74.2 kg, Total Volume: 1,000, Start date: 01/10/19 2:33:00 BULK FILLER, Duration: 1 doses or times, Stop date: 01/10/19 19:14:00 BULK FILLER, 1.91, m2, 0 NS 1,000 mL 2018-02 No 1,000 mL, M emoria 03-12 Rate: 60 l 08:33: ml/hr, Philip 00 Infuse over: 16.7 hr, Route: IV, Dosing Weight 74.2 kg, Total Volume: 1,000, Start date: 01/10/19 2:33:00 BULK FILLER, Duration: 1 doses or times, Stop date: 01/10/19 19:14:00 BULK FILLER, 1.91, m2, 0 Morphine 2018-02 No Notes: Memoria -15 (Same l 07:20: as:MORPhin Murdock 00 e Sulfate) Zofran 2018-02 No Notes: Memoria -15 (Same as: l 07:20: Zofran) Philip 00 MEDICATION WASTE Product Size: 4 mg Product Wasted: ___ mg Morphine 2018-02 No Notes: Memoria 1-15 (Same l 07:20: as:MORPhin Murdock 00 e Sulfate) Zofran 2018-02 No Notes: Memoria 1-15 (Same as: l 07:20: Zofran) Philip 00 MEDICATION WASTE Product Size: 4 mg Product Wasted: ___ mg Morphine 2018-02 No Notes: Memoria 1-15 (Same l 07:20: as:MORPhin Philip 00 e Sulfate) Zofran 2018-02 No Notes: Memoria 1-15 (Same as: l 07:20: Zofran) Murdock 00 MEDICATION WASTE Product Size: 4 mg Product Wasted: ___ mg Levaquin 2018-02 No Notes: Memoria 1-15 (Same l 07:17: as:Levaqui Mur[place] 00 n) Levaquin 2018-02 No Notes: Memoria 1-15 (Same l 07:17: as:Levaqui Mur[place] 00 n) Levaquin 2018-02 No Notes: Memoria [...] Memoria 1-15 (Same as: l 04:21: Zofran) Murdock 00 MEDICATION WASTE Product Size: 4 mg Product Wasted: ___ mg Sodium 2018-02 No 1,000 mL, Memori a Chloride 1-15 2,000 l 0.9% 04:20: ml/hr, Philip (Bolus) IV 00 Infuse Over: 0.5 hr, Route: IV, 1,000, Drug form: INJ, ONCE, Priority: STAT, Dosing Weight 74.2 kg, Start date: 01/09/19 22:20:00 BULK FILLER, Stop date: 01/09/19 22:20:00 BULK FILLER, 0 Saline 2018-02 No Notes: Memoria Flush 0.9% 1-15 (Same as: l 04:20: BD Philip 00 Posiflush) Sodium 2018-02 No 1,000 mL, Memori a Chloride 1-15 2,000 l 0.9% 04:20: ml/hr, Philip (Bolus) IV 00 Infuse Over: 0.5 hr, Route: IV, 1,000, Drug form: INJ, ONCE, Priority: STAT, Dosing Weight 74.2 kg, Start date: 01/09/19 22:20:00 BULK FILLER, Stop date: 01/09/19 22:20:00 BULK FILLER, 0 Saline 2018-02 No Notes: Memoria Flush 0.9% 1-15 (Same as: l 04:20: BD Philip 00 Posiflush) Sodium 2018-02 No 1,000 mL, Memori a Chloride 1-15 2,000 l 0.9% 04:20: ml/hr, Murdock (Bolus) IV 00 Infuse Over: 0.5 hr, Route: IV, 1,000, Drug form: INJ, ONCE, Priority: STAT, Dosing Weight 74.2 kg, Start date: 01/09/19 22:20:00 BULK FILLER, Stop date: 01/09/19 22:20:00 BULK FILLER, 0 Saline 2018-02 No Notes: Memoria Flush 0.9% 1-15 (Same as: l 04:20: BD Murdock 00 Posiflush) metoprolol 2018-02 Yes 50mg Take 50 mg [...] daily. n 1.1 % 00 of scalp [place] dental teeth with cream cream and spit [...] kg Systolic blood 2020-12-01 15:50:00 147 mm[facility]Hg[facility] 2020-12-01 15:50:00 71 mm[Hg] [facility] Respiratory rate 2020-12-01 15:50:00 18 /min [facility] Oxygen saturation in 2020-12-01 15:50:00 100 /min [facility] Arterial blood by [facility] Pulse oximetry Branch Body temperature 2020-12-01 15:45:00 36.22 Jessica [facility] Heart rate 2020-12-01 13:51:00 68 /min General acute hospital Body height 2020-11-18 14:58:00 175.3 cm [facility] Body weight 2020-11-18 14:58:00 76.2 [...] 100 /min [facility] Arterial blood by [place] [employer] mendez Pulse oximetry Branch Body temperature 2020-12-01 [...] 98 /min [facility] Arterial blood by [place] [employer] mendez Pulse oximetry Branch Systolic blood 2020-09-15 19:30:00 146 mm[Hg] Univer [facility]ity of [facility] Respiratory rate 2020-09-15 19:21:00 24 /min [facility] Body temperature 2020-09-15 19:15:00 36.17 Jessica [facility] Body height 2020-09-06 18:10:00 175.3 cm [facility] Body weight 2020-09-06 18:10:00 76.3 kg [facility] BMI 2020-09-06 18:10:00 24.83 kg/m2 [facility] Diastolic blood 2020-09-15 19:30:00 75 mm[Hg] Unive rs[facility] Heart rate 2020-09-15 19:30:00 59 /min [facility] Oxygen saturation in 2020-09-15 19:30:00 98 /min [facility] Arterial blood by [place] [employer] mendez Pulse oximetry Branch Systolic blood 2020-09-15 19:30:00 146 mm[Hg] [facility]iver [facility] Respiratory rate 2020-09-15 19:21:00 24 /min [facility] Body temperature 2020-09-15 19:15:00 36.17 Jessica [facility] Body height 2020-09-06 18:10:00 175.3 cm [facility] Body weight 2020-09-06 18:10:00 76.3 kg [facility] BMI 2020-09-06 18:10:00 24.83 kg/m2 [...] /min [facility] Arterial blood by [place] [employer] mendez Pulse oximetry Branch Respiratory rate 2020-09-15 19:21:00 24 /min [facility] Body temperature 2020-09-15 19:15:00 36.17 Jessica [facility] Body height 2020-09-06 18:10:00 175.3 cm [facility] [place] Body weight 2020-09-06 18:10:00 76.3 kg Universi ty [facility] BMI 2020-09-06 18:10:00 24.83 kg/m2 [facility] [place] Systolic blood 2020-09-15 19:30:00 146 mm[Hg] Univer sity of pressure [facility] Diastolic blood 2020-09-15 19:30:00 75 mm[Hg] Unive rsity of [facility] Heart rate 2020-09-15 19:30:00 59 /min [facility]i ty [facility] Oxygen saturation in 2020-09-15 19:30:00 98 /min [facility] Arterial blood by [facility] Pulse oximetry Branch Respiratory rate 2020-09-15 19:21:00 24 /min [facility] Body temperature 2020-09-15 19:15:00 36.17 Jessica [facility] Body height 2020-09-06 18:10:00 175.3 cm Universi ty [facility] Body weight 2020-09-06 18:10:00 76.3 kg Universi ty [facility] BMI 2020-09-06 18:10:00 24.83 kg/m2 [facility] Systolic blood 2020-09-29 11:17:00 132 mm[Hg] [facility] Diastolic blood 2020-09-29 11:17:00 61 mm[Hg] [facility] 2020-09-29 11:17:00 78 /min [facility] Body temperature 2020-09-29 11:17:00 36.44 Jessica [facility] Respiratory rate 2020-09-29 11:17:00 20 /min [facility] Oxygen saturation in 2020-09-29 11:17:00 97 /min [facility] - Arterial blood by [facility] nter Pulse oximetry Body height 2020-09-28 12:51:00 175.3 cm [facility] Body weight 2020-09-28 12:51:00 74.844 kg [facility] BMI 2020-09-28 12:51:00 24.37 kg/m2 [facility] Systolic (mm Hg) 2020-09-06 19:00:00 Pepe rial Philip Diastolic (mm Hg) 2020-09-06 19:00:00 Mem orial Philip Heart Rate 2020-09-06 19:00:00 [facility] Philip Respitory Rate 2020-09-06 19:00:00 Memori al Philip Systolic (mm Hg) 2020-08-09 20:36:00 Pepe rial Murdock Diastolic (mm Hg) 2020-08-09 20:36:00 Mem orial Philip Heart Rate 2020-08-09 20:36:00 [facility] Philip Respitory Rate 2020-08-09 20:36:00 Memori al Mur[place] Systolic (mm Hg) 2020-07-19 19:31:00 Pepe rial Philip Diastolic (mm Hg) 2020-07-19 19:31:00 Mem orial Philip Heart Rate 2020-07-19 19:31:00 [facility] [place] Respitory Rate 2020-07-19 19:31:00 Memori al Philip Height 2020-07-19 19:31:00 175.26 cm [facility] Weight 2020-07-19 19:31:00 [facility] Philip BMI Calculated 2020-07-19 19:31:00 Memori al [place] Temperature Oral (F) 2019-01-19 21:26:00 97.6 F [facility] Heart Rate 2019-01-19 21:26:00 [facility] [place] Respitory Rate 2019-01-19 21:26:00 Memori al Murdock Systolic (mm Hg) 2019-01-19 21:26:00 Pepe rial Philip Diastolic (mm Hg) 2019-01-19 21:26:00 Mem orial Murdock Temperature Oral (F) 2019-01-19 17:23:00 97.9 F [facility] [place] Heart Rate 2019-01-19 17:23:00 [facility] [place] Respitory Rate 2019-01-19 17:23:00 Memori al Philip Systolic (mm Hg) 2019-01-19 17:23:00 Pepe rial Philip Diastolic (mm Hg) 2019-01-19 17:23:00 Mem orial Philip Temperature Oral (F) 2019-01-19 13:47:00 97.6 F [facility] Philip Heart Rate 2019-01-19 13:47:00 Beba Philip Respitory Rate 2019-01-19 13:47:00 Ada Batemanann Systolic (mm Hg) 2019-01-19 13:47:00 Pepe Palacios Diastolic (mm Hg) 2019-01-19 13:47:00 Mem destin Hendersonann Height 2019-01-10 12:17:00 170.18 cm [facility] Murdock Weight 2019-01-10 03:42:00 [facility] Procedures Procedure Date / Time Performing Source Performed Clinician PHACOEMULSIFICATION OF 2020-12-01 Robin Wolf [facility] CATARACT WITH INTRAOCULAR 15:03:00 Medica l Branch LENS IMPLANT ASSIGNMENT OF BENEFITS 2020-11-29 Doctor Unassigned, [facility] 20:50:21 [facility] POCT-GLUCOSE METER 2020-09-29 Hasolimpia, Zaheer Ali [facility] - 11:24:00 [facility] POCT-GLUCOSE METER 2020-09-29 Hasan, Zaheer Ali [facility] - 07:37:00 [facility] BASIC METABOLIC PANEL (7) 2020-09-29 Jessica, Ramesh [facility] - 05:02:00 [facility] CBC (HEMOGRAM ONLY) 2020-09-29 Jessica, Ramesh [facility] - 05:02:00 [facility] MAGNESIUM 2020-09-29 Jessica, Ramesh [facility] - 05:02:00 [facility] POCT-GLUCOSE METER 2020-09-28 Hasolimpia, Zaheer Ali [facility] - 22:29:00 [facility] US ABDOMEN LIMITED 2020-09-[address] [facility] - 15:36:00 [facility] APTT 2020-09-28 Jessica, Ramesh [facility] - 10:58:00 [facility] POCT-GLUCOSE METER 2020-09-28 Hasan, Zaheer Ali [facility] - 07:47:00 [facility] BASIC METABOLIC PANEL (7) 2020-09-28 Jessica, Ramesh [facility] - 06:37:00 [facility] CBC (HEMOGRAM ONLY) 2020-09-28 Jessica, Ramesh [facility] - 06:37:00 [facility] MAGNESIUM 2020-09-28 [facility] - 06:37:00 [facility] APTT 2020-09-28 Jessica, Ramesh [facility] - 00:27:00 [facility] POCT-GLUCOSE METER 2020-09-27 Hasolimpia, Zaheer Ali [facility] - 16:39:00 [facility] POCT-GLUCOSE METER 2020-09-27 Hasolimpia, Zaheer Ali [facility] - 11:16:00 [facility] 2D ECHO W/ DOPPLER 2020-09-27 Jose Rafael [facility] - (CW/PW/COLOR) 09:45:35 [facility] POCT-GLUCOSE METER 2020-09-27 Hasolimpia, Zaheerallie Smith [facility] - 08:43:00 [facility] SARS-COV2/RT-PCR (SLHS & REF 2020-09-27 [facility] LAB[facility]) 04:13:00 [facility] BASIC METABOLIC PANEL (7) 2020-09-27 [facility] - 04:13:00 [facility] CBC (HEMOGRAM ONLY) 2020-09-27 Jessica, [facility] - 04:13:00 [facility] MAGNESIUM 2020-09-27 [facility] - 04:13:00 [facility] IRON, TIBC, % SAT. (WITHOUT 2020-09-27 Diana, Zaheer Ali [facility] - FERRITIN) 04:13:00 [facility] FERRITIN 2020-09-27 Diana, Zaheer Ali [facility] - 04:13:00 [facility] VITAMIN B12 AND FOLATE 2020-09-27 Diana, Zaheer Ali [facility] - 04:13:00 [facility] POCT-GLUCOSE METER 2020-09-26 Diana Zaheer Ali [facility] - 23:06:00 [facility] APTT 2020-09-26 [facility] 12:26:00 [facility] ABORH, MANUAL 2020-09-26 Abril Lucero [facility] 06:46:00 [facility] XR CHEST 1 VIEW PORTABLE / 2020-09-26 Jorje Covarrubias [facility] - BEDSIDE 05:40:00 [facility] COMPREHENSIVE METABOLIC PANEL 2020-09-26 SatishLam geigerd [facility] - 04:29:00 [facility] HEMOGLOBIN A1C 2020-09-[address] [facility] - 04:29:00 [facility] HIGH SENSITIVITY TROPONIN I 2020-09-26 Satish, Jorje [facility] - 04:29:00 [facility] LIPID PANEL 2020-09-26 [facility], Jorje [facility] - 04:29:00 [facility] CBC W/PLT COUNT & AUTO 2020-09-26 [facility] - DIFFERENTIAL 04:29:00 [facility] B-TYPE NATRIURETIC FACTOR 2020-09-26 [facility] MedicineLamd VALDO Joyner - (BNP) 04:29:00 [facility] TYPE AND SCREEN, AUTOMATED 2020-09-26 SatishJorje [facility] - 04:29:00 [facility] PROTHROMBIN TIME/INR 2020-09-26 [facility] - 04:28:00 [facility] APTT 2020-09-26 [facility] - 04:28:00 [facility] ECG 12-LEAD 2020-09-26 Unknown, Hl7 Doctor VALDO [facility] - 03:44:53 [facility] PHACOEMULSIFICATION OF 2020-09-15 Robin Wolf [facility] CATARACT WITH INTRAOCULAR 18:32:00 Medica l Branch LENS IMPLANT CBC WITH DIFF 2020-09-13 Robin Wolf [facility] 19:46:00 Medical Branch COVID-19 (ID NOW RAPID 2020-09-13 Robin Wolf [facility] TESTING) 19:40:00 Medical Branch ASSIGNMENT OF BENEFITS 2020-09-13 Doctor Unassigned, [facility] 19:32:02 [facility] Plan of Care Planned Activity Planned Date Details Comments Source Future Scheduled 2020-10-27 INFLUENZA VACCINE VALDO Joyner - Test 00:00:00 (#1) [code = Medical [...] Type Clinicians Facility Department ID 2020-12-27 Outpatient KIRK [facility] OPH [id number] Univers 19:23:53 [facility] 2020-12-27 Outpatient Angi WOLF [facility] OPH [id number] Univers 09:11:23 [facility] 2020-09-26 Inpatient ER ORDOÑEZ-[facility] Cardiology [id number] [facility] 03:36:00 FRANKY MANDUJANO 2020-12-08 2020-12-08 Outpatient J LUIS TANNER [id number] Memoria 14:30:00 14:30:00 04 kumar Palacios 2020-12-07 2020-12-07 Outpatient CIRO TANNER [id number] Memoria 10:45:00 10:45:00 03 kumar Palacios 2020-12-01 2020-12-[address] [facility] [id number] Univers 08:45:00 11:16:00 Encounter Robin Langford [id number] [id number] [id number] [facility] 020 Branch 2020-12-01 2020-12-01 [facility] [id number] Univers 10:08:00 10:50:00 Robin Langford [id number] [id number] [id number] [facility] 020 Branch 2020-11-29 2020-11-29 Laboratory Only, Adc Test [facility] 1.2.840. [id number] Univers 15:49:32 16:04:32 Only Robin Wolf [id number] 0 [id number] [id number] [facility] 353 Branch 2020-11-29 2020-11-29 Outpatient R [facility] [id number] Univers 15:15:00 15:15:00 [id number] ity of [facility] 2020-11-29 2020-11-29 Outpatient R [facility] [id number] Univers 15:15:00 15:15:00 ity of [facility] 2020-11-29 2020-11-29 Orders Doctor ASHLEY [id number] Univers 00:00:00 00:00:00 Only Unassigned, ML [id number] ity of [place] [facility] [id number] [place]án as [id number] [facility] 009 Branch 2020-11-09 2020-11-09 Outpatient R [facility] [id number] Univers 12:00:00 12:00:00 [id number] ity of [facility] 2020-09-26 2020-09-26 Outpatient [facility] [id number] [facility] 00:00:00 23:59:00 Elle 2020-09-24 2020-09-24 Outpatient STLMLC ST[facility]ML[facility] [id number] [facility] 00:00:00 00:00:00 Mauricio Rip [facility] 2020-09-15 2020-09-15 Surgery [facility] [id number] 14:11:00 14:51:00 [employer] [id number] [place] [id number] Surgical [id number] [place] 020 2020-09-15 2020-09-[address] [facility] [id number] Univers 14:11:00 14:51:00 Robin Sumeet Langford [id number] [place]y [id number] [id number] [address] 2020-09-15 2020-09-15 [facility] [id number] 12:25:00 14:50:00 Encounter Robin Langford [id number] [place] [id number] Surgical [id number] [place] [address] 2020-09-15 2020-09-15 [facility] [id number] Univers 12:25:00 14:50:00 Encounter Robin Langford [id number] [place]y [id number] [id number] [address] 2020-09-13 2020-09-13 Outpatient R [facility] [id number] Univers 15:15:00 15:15:00 [id number] ity of [facility] 2020-09-13 2020-09-13 Account Liaison Sharona Pretty [facility] [id number] 14:29:04 14:44:04 Visit Lab Main Primitivo [id number] [place] [id number] Professio [id number] [address] 2020-09-13 2020-09-13 Account Liaison Sharona Pretty Lab Main [facility] [id number] [facility] 14:29:04 14:44:04 Visit Robin Wolf [id number] 0 [id number] [id number] In dical [facility] 2020-09-13 2020-09-13 Laboratory Only, [facility] [id number] 14:17:45 14:32:45 Only Test [employer] [id number] [place] [id number] Mobile [id number] [facility] 2020-09-13 2020-09-13 Laboratory Only, [facility] Test [facility] 1.2.840. 114 [id number] Univers 14:17:45 14:32:45 Only Robin Wolf [id number] 0 ity [id number] [id number] [address] 2020-09-13 2020-09-13 Outpatient Angi WOLF [facility] [id number] Univers 14:00:00 14:00:00 ROBIN boone [facility] 2020-09-13 2020-09-13 Orders Doctor ASHLEY [id number] Univers 00:00:00 00:00:00 Only Unassigned, ML [id number] ity of [place] [facility] [id number] [place]án as [id number] [address] 2020-09-13 2020-09-13 Orders Doctor ASHLEY [id number] 00:00:00 00:00:00 Only Unassigned, ML [id number] [place] [facility] [id number] [id number] 2020-09-06 2020-09-07 Outpatient nullFlavo MNA [id number] Memoria 19:00:00 04:59:59 r Neurology 02 l Clarkkezia Palacios 2020-08-20 2020-08-20 Outpatient Angi WOLF [facility] [id number] Univers 15:45:00 15:45:00 ROBIN boone [facility] 2020-08-11 2020-08-11 Outpatient [facility] [id number] [facility] 2020-08-09 2020-08-10 Outpatient nullFlavo MNA [id number] Memoria 20:00:00 04:59:59 r Neurology 01 l Clark Mur[place] 2020-08-03 2020-08-03 Outpatient [facility]ML[facility] [id number] [facility] 2020-07-28 2020-07-28 Outpatient STLMLC [facility] [id number] [facility] 2020-07-19 2020-07-20 Outpatient nullFlavo MNA [id number] Memoria 19:30:00 04:59:59 r Neurology 00 l Clark Philip 2020-07-13 2020-07-13 Outpatient [facility]C [facility] [id number] [facility] 2020-07-05 2020-07-05 Outpatient [facility] [id number] [facility] 2020-06-29 2020-06-29 Outpatient [facility] [id number] [facility] 2020-06-25 2020-06-25 Outpatient [facility] [id number] [facility] 2020-06-24 2020-06-24 Outpatient [facility] [id number] [facility] 2019-01-10 2019-01-20 [place] [facility] [id number] Memoria 03:18:46 00:08:00 r Philip 00 l Stuart Lilly 2019-01-10 2019-01-10 Inpatient E [facility] MED 7500 [facility]FB 15:16:00 01:33:00 Results Test Description Test Time Test Comments Results Result Comments Source POC-Glucose meter 2020-09-29 11:42:00 Test Item Value Reference Range Interpretation Comme nts POC-Glucose Meter (test code = 106 mg/dL 70-110 : TESTED AT [facility] 67[address] [facility] 1538) [facility], 770 30: Cartridge Assembling Machine Adjuster/Techni jenifer ID = [id number] for ISIAH EM Lab Interpretation (test code = Normal 90319-3) [facility] [id number] 11:42:00 Test Item Value Reference Range Interpretation Comments POC-GLUCOSE METER 106 mg/dL 70-110 : [facility] (BEAKER) (test code = AUDREY Whitley [facility], 1538) [address]: Cartridge Assembling Machine Adjuster/Techni jenifer ID = [id number] for ISIAH COLLINS POCT-GLUCOSE [id number] 07:59:00 Test Item Value Reference Range Interpretation Comments POC-GLUCOSE METER 98 mg/dL 70-110 : TESTED A T [facility] 6720 (BEAKER) (test code = AUDREY Whitley [facility], 1538) [address]: Cartridge Assembling Machine Adjuster/Techni jenifer ID = [id number] for ISIAH MANRIQUEZ [id number] 06:20:00 Test Item Value Reference Range Interpretation Comments Magnesium (test code = 2.1 mg/dL 1.6-2.6 69902-5) GRABIEL (test code = GRABIEL) Cartridge Assembling Machine Adjuster ID - BS Lab Interpretation (test Normal code = 29900-1) [facility] [id number] 06:20:00 Test Item Value Reference Range Interpretation [...] Calcium (test code = 9.4 mg/dL 8.4-10.2 81259-8) EGFR (test code = 93 mL/min/1.73 [place] [address]-2) NOT ACCURATE CREATININE CLEARANCE IN PREDICTING GLOMERULAR FILTRATION RATE . ESTIMATED GFR I S NOT APPLICABLE FOR DIALYSIS PATIENTS. GRABIEL (test code = GRABIEL) Cartridge Assembling Machine Adjuster ID - BS Lab Interpretation Abnormal (test code = 76412-3) [facility]OL[facility] [id number] 06:20:00 Test Item Value Reference Range Interpretation [...] S NOT APPLICABLE FOR DIALYSIS PATIEN TS. Cartridge Assembling Machine Adjuster ID - [id number] 06:20:00 Test Item Value Reference Range Interpretation Comments MAGNESIUM (BEAKER) (test code = 2.1 mg/dL 1.6-2.6 627) Cartridge Assembling Machine Adjuster ID - BSCBC (Hemogram only)2020-09-29 05:40:00 Test Item Value Reference Range Interpretation Comments WBC (test code = 6690-2) 3.9 See_Comment [A utomated message] The system [employer] generated this result transmitted ref erence range: 3.5 - 10 .5 K/L. The refe rence range was not u sed to interpret this result as normal/abnor mal. RBC (test code = 789-8) 4.16 See_Comment L [Au tomated message] The system [employer] generated this result transmitted ref erence range: 4.63 - 6 .08 M/L. The refe rence range was not u sed to interpret this result as normal/abnor mal. MCHC (test code = 786-4) 31.3 See_Comment L [A utomated message] The system [employer] generated this result transmitted ref erence range: [...] See_Comment [Aut omated message] 777-3) The system [employer] generated this result transmitted ref erence range: 150 - 45 0 K/CU MM. The referen ce range was not u sed to interpret this result as normal/abnor mal. MPV (test code = 10.4 fL 9.4-12.4 94462-0) nRBC (test code = 413) 0 See_Comment [Aut omated message] The system [employer] generated this result transmitted ref erence range: 0 - 0 /1 00 WBC. The refere nce range was not u sed to interpret this result as normal/abnor mal. Lab Interpretation (test Abnormal code = 66821-2) [facility] (HEMOGRAM ONLY)2020-09-29 05:40:00 Test Item Value [...] 0-0 (BEAKER) (test code = 413) POCT-GLUCOSE [id number] 22:41:00 Test Item Value Reference Range Interpretation Comments POC-GLUCOSE METER 97 mg/dL 70-110 : TESTED A T [facility] 6720 (BEAKER) (test code = AUDREY [address], 1538) [address]: Cartridge Assembling Machine Adjuster/Techni jenifer ID = [id number] for Stam per, [place] U/S, ABDOMINAL, [id number] 17:39:00Abdomen limited area? Add comment if clarification is needed.->Gall BladderReason for exam:->epigastric pain [facility] 1935 Sex: [...] Alvarez Verified Date/Time: 09/28/2020 17:39:04 US abdomen [id number] 17:39:00Interface, External Ris In - 09/28/2020 5:44 [...] by: NAYELY ALVAREZ MD on 09/28/2020 05:39 [facility] 11:24:00 Test Item Value Reference Range Interpretation Comments PTT (test code = 78.0 See_Comment H [Automated message] 50419-7) The system [employer] generated this result transmitted ref erence range: 22.5 - 3 6.0 seconds. The reference range was not used to int erpret this result as normal/abnormal . Lab Interpretation (test Abnormal code = 70214-8) [facility]APTT[facility] 11:24:00 Test Item Value Reference Range Interpretation Comments PARTIAL THROMBOPLASTIN TIME 78.0 seconds 22.5-36.0 H (BEAKER) (test code = 760) POCT-GLUCOSE [id number] 07:58:00 Test Item Value Reference Range Interpretation Comments POC-GLUCOSE METER 102 mg/dL 70-110 : TESTED A T [facility] 6720 (BEAKER) (test code = AUDREY Whitley [facility], 1538) [address]: Cartridge Assembling Machine Adjuster/Techni jenifer ID = [id number] for Alexandra casas (contract) Kalpesh lazo BASIC METABOLIC [id number] 07:24:00 Test Item Value Reference Range Interpretation [...] S NOT APPLICABLE FOR DIALYSIS PATIEN TS. Cartridge Assembling Machine Adjuster ID - PIAYA [id number] 07:24:00 Test Item Value Reference Range Interpretation Comments MAGNESIUM (BEAKER) (test code = 2.1 mg/dL 1.6-2.6 627) Cartridge Assembling Machine Adjuster ID - PIAYA LCBC (HEMOGRAM ONLY)2020-09-28 06:59:00 [...] WBC 0-0 (BEAKER) (test code = 413) [id number] 01:15:00 Test Item Value Reference Range Interpretation Comments PARTIAL THROMBOPLASTIN TIME 32.7 seconds 22.5-36.0 (BEAKER) (test code = 760) POCT-GLUCOSE [id number] 16:51:00 Test Item Value Reference Range Interpretation Comments POC-GLUCOSE METER 107 mg/dL 70-110 : TESTED A T [facility] 6720 (BEAKER) (test code = AUDREY [address], 1538) [address]: Cartridge Assembling Machine Adjuster/Techni jenifer ID = [id number] for Suzanne Huerta rd ECG 12 [id number] 15:06:28Interface, External Ris In - 09/27/2020 3:06 PM CDTVentricular Rate 74 BPMAtrial Rate 74 BPMP-R Interval 366 msQRS Duration 78 msQ-T Interval 394 msQTC Calculation(Bazett) 437 msP Au Train 61 degreesR Au Train 66 degreesT Au Train 196 degreesSinus rhythm with 1st degree A-V blockMinimal ST depression and T wave inversion in I, II and aVL with mild ST elevation in aVR consider ischemiaAbnormal ECGNo previous ECGs availableConfirmed by MD LUZ, ANDREI ([id number]) on 09/27/2020 3:06:24 [facility]2D Echo W/Doppler(CW/PW/Color)2020-09-27 14:02:33Ejection FractionSLEH ECHO HEARTLAB MKCKESSON CPACSInterface, External Ris In - 09/27/2020 2:02 PM CDTTransthoracic Echocardiography Report (TTE) Demographics Patient Name JERE RHODES Date ofStudy 09/27/2020 DARLIN Gender Male Visit Number [id number] Race Unknown RoomNumber 8A07 Number Date of 1935 Referring Franky Mantilla Physician Age 85 year(s) Remedy Developer Darlene Lares [facility] Muff Winder Jovanni Benz Interpreting [facility] Physician James Chirinos MD Procedure [...] Not Detected, (test code = Negative, See 29966-5) external report for linked test SARS-COV-2 [facility] PERFORMING LAB (test code = 39736-2) GRABIEL (test code = Negative result for [...] of the Act. Fact Sheet for Healthcare Providers:https://www.Autotether/sites/default/f carmen/product/documents/F act_Sheet_HC_Providers_L tbe_VFEB-TlF-6.pdf Fact Sheet for Healthcare Patients:https://www.wufoo/sites/default/fi les/product/documents/Fa ct_Sheet_Patients_Lyra_S ARS-CoV-2.pdf Performing Laboratory:[facility] [place] [address] [facility]ARS[facility]OV2[facility] ([facility])2020-09-27 13:03:00 Test Item Value Reference Range Interpretation Comments SARS-COV2/RT-PCR (test Negative Not Detected, Negative, code = 6174744) See external report for linked test SARS-COV-[address] [facility] JIMENEZ (test code = 6310326) Negative result for this test determines that [...] 564(g) of the Act.Fact Sheet for Healthcare Providers:https://www.Wiztango/sites/default/files/product/documents/Fact_Shee p_NV_Kkdjcxbox_Vzqv_VXZS-VxO-8.pdfFact Sheet for Healthcare Patients:https://www.Wiztango/sites/default/files/product/ documents/Pyzz_Nylie_Itqkqggl_Mbag_ABNI-XyX-7.pdfPerforming Laboratory:[address], [place] [address]YUZG-VXLLYXJ METER 2020-09-27 11:29:00 Test Item Value Reference Range Interpretation Comments POC-GLUCOSE METER 124 mg/dL 70-110 H : Notified RN/: (HANNAH) (test code = TESTED AT [place] [address] 1538) [facility], [address]: Cartridge Assembling Machine Adjuster/Techni jneifer ID = [id number] for PH INISEE, DARRYL POCT-GLUCOSE [id number] 08:54:00 Test Item Value Reference Range Interpretation Comments POC-GLUCOSE METER 135 mg/dL 70-110 H : TESTED A T [facility] 67 (HANNAH) (test code = [facility] Angi [facility], 1538) [address]: Cartridge Assembling Machine Adjuster/Techni jenifer ID = [id number] for PH INISEE, DARRYL Vitamin B12 and [id number] 05:55:00 Test Item Value Reference Range Interpretation Comments Vitamin B12 (test 578 pg/mL 213-816 code = 2132-9) Folate (test code = 18.00 ng/mL See_Comment [Automa valentina 2284-8) message] The system which generated this result transmit [place]entina reference range : >=7.00. The reference range was not used to interpret this result as normal/abnormal . GRABIEL (test code = GRABIEL) Cartridge Assembling Machine Adjuster ID - CLARA Grajeda Lab Interpretation Normal (test code = 00697-7) [facility] CenterFerritin2021-[facility] 05:55:00 Test Item Value Reference Range Interpretation Comments Ferritin (test code = 35.96 ng/mL 5-275 2276-4) GRABIEL (test code = GRABIEL) Cartridge Assembling Machine Adjuster ID - CLARA Grajeda Lab Interpretation (test Normal code = 99873-9) [facility] CenterFERRITIN2021-08-02 05:55:00 Test Item Value Reference Range Interpretation Comments FERRITIN (BEAKER) (test code = 35.96 ng/mL 5.00-275.00 361) Cartridge Assembling Machine Adjuster ID Rip ELIZABETH MVITAMIN B12 AND [id number] 05:55:00 Test Item Value Reference Range Interpretation Comments VITAMIN B12 578 pg/mL 213-816 (BEAKER) (test code = 774) FOLATE (BEAKER) 18.00 ng/mL See_Comment [Automated message] (test code = 362) The system which generated this result transmitted ref erence range: >=7.00. The reference range was not used to interpr et this result as normal/abnormal . Cartridge Assembling Machine Adjuster ID Rip ELIZABETH Natalie, TIBC, % sat. (without ferritin)2020-09-27 05:10:00 Test Item Value Reference Range Interpretation Comments Iron (test code = 2498-4) 37.0 ug/dL 40-160 L TIBC (test code = 2500-7) 404 ug/dL 250-450 Iron % Saturation (test 9 % 20-55 L code = 2502-3) GRABIEL (test code = GRABIEL) Cartridge Assembling Machine Adjuster ID Rip Grajeda Lab Interpretation (test Abnormal code = 01076-5) [facility] CenterIRON, TIBC, % SAT. (WITHOUT FERRITIN)2020-09-27 05:10:00 Test Item Value Reference Range Interpretation Comments IRON (BEAKER) (test code = 547) 37.0 ug/dL 40.0-160.0 L TOTAL IRON BINDING CAPACITY 404 ug/dL 250-450 (BEAKER) (test code = 769) IRON % SATURATION (2) (BEAKER) 9 % 20-55 L (test code = 2590) Cartridge Assembling Machine Adjuster AIYANA ELIZABETH MBASIC METABOLIC [id number] 04:39:00 Test Item Value Reference Range Interpretation [...] S NOT APPLICABLE FOR DIALYSIS PATIEN TS. Cartridge Assembling Machine Adjuster AIYANA ELIZABETH [id number] 04:39:00 Test Item Value Reference Range Interpretation Comments MAGNESIUM (BEAKER) (test code = 2.3 mg/dL 1.6-2.6 627) Cartridge Assembling Machine Adjuster AIYANA Rip ELIZABETH MCBC (HEMOGRAM ONLY)2020-09-27 04:22:00 Test [...] 0-0 (BEAKER) (test code = 413) POCT-GLUCOSE [id number] 23:19:00 Test Item Value Reference Range Interpretation Comments POC-GLUCOSE METER 109 mg/dL 70-110 : TESTED A T [facility] 6720 (BEAKER) (test code = AUDREY [address], 1538) [address]: Cartridge Assembling Machine Adjuster/Techni jenifer ID = [id number] for FRANCIA SANCHES [id number] 13:27:00 Test Item Value Reference Range Interpretation Comments PARTIAL THROMBOPLASTIN TIME 75.7 seconds 22.5-36.0 H (BEAKER) (test code = 760) Hemoglobin [id number] 08:25:00 Test Item Value Reference Range Interpretation Comments Hemoglobin A1C (test code = 4548-4) 6.7 % 4.3-6.1 H Lab Interpretation (test code = Abnormal 17976-0) [facility] CenterHEMOGLOBIN [id number] 08:25:00 Test Item Value Reference Range Interpretation Comments HEMOGLOBIN A1C (BEAKER) (test code = 6.7 % 4.3-6.1 H 368) RAD, CHEST, 1 VIEW, NON [id number] 08:15:00Reason for exam:->shortness of breath Should this be performed at the bedside?->Yes [facility] 1935 Sex: MFINAL REPORT INDICATION: shortness of breath COMPARISON: None ANTON HNIQUE: Single frontal view of the chest. FINDINGS: Lungs and pleura: Clear lungs. No effusion.Heartand mediastinum: Normal heart size. Unremarkable mediastinal contours.Osseous structures: No acute abnormality.Other: None. IMPRESSION: No acute intrathoracic abnormality. Signed: Yaneth Gifford Verified Date/Time: 09/26/2020 08:15:42 Reading Location: [address] Neuro Reading Room XR chest 1 view portable / [id number] 08:15:00 Interface, External Ris In - 09/26/2020 8:17 AM CDTFINAL REPORT INDICATION: shortness of breath COMPARISON: None TECHNIQUE: Single frontal view of the chest. FINDINGS: Lungs andpleura: Clear lungs. No effusion.Heart and mediastinum: Normal heart size. Unremarkable mediastinal c ontours.Osseous structures: No acute abnormality.Other: None. IMPRESSION: No acute intrathoracic abnormality. Signed: Yaneth Gifford Verified Date/Time: 09/26/2020 08:15:42 Reading Location: [address] Neuro Reading Room [facility]ABOR[facility], [id number] 07:15:00 Test Item Value Reference Range Interpretation Comments ABO Grouping (test code = 2588) B Rh Factor (test code = 2589) POS [facility] CenterType and screen, [id number] 06:19:00 Test Item Value Reference Range Interpretation Comments ABO/RH AUTOMATED (BEAKER) (test B POSITIVE code = 2260) Ab Scrn (test code = 890-4) NEGATIVE [facility] CenterAPTT2021 05:20:00 Test Item Value Reference Range Interpretation Comments PARTIAL THROMBOPLASTIN TIME 111.9 seconds 22.5-36.0 H (BEAKER) (test code = 760) Patient on hep drippingComprehensive metabolic [id number] 05:17:00 Test Item Value Reference Range Interpretation Comments Protein, Total 6.7 See_Comment [Automated (test code = message] The 2885-2) system which generated this result transmit [place]entina reference range : 6.0 - 8.3 gm/dL . The reference range was not u sed to interpret th is result as normal/abnormal . Albumin (test code 3.6 g/dL 3.5-5 = 18482-7) Alkaline 102 U/L 40-150 Phosphatase (test code = 6768-6) Total Bilirubin 0.4 mg/dL 0.2-1.2 (test code = 1975-2) Sodium (test code = 138 meq/L 855-606 0995-2) Potassium (test 4.0 meq/L 3.5-5.1 code = 2823-3) Chloride (test code 102 meq/L 98-107 = 2075-0) CO2 (test code = 24 meq/L 22-29 2027-9) BUN (test code = 16 mg/dL 7-21 3094-0) Creatinine (test 0.91 mg/dL 0.57-1.25 code = 2160-0) Glucose (test code 103 mg/dL 70-105 = 2345-7) Calcium (test code 9.2 mg/dL 8.4-10.2 = 04360-6) AST (test code = 29 U/L 5-34 1920-8) ALT (test code = 24 U/L 6-55 1742-6) EGFR (test code = 79 mL/min/1.73 [place] [address]-8) NOT ACCURATE CREATININE CLEARANCE IN PREDICTING GLOMERULAR FILTRATION RATE . ESTIMATED GFR I S NOT APPLICABLE FOR DIALYSIS PATIEN TS. GRABIEL (test code = Cartridge Assembling Machine Adjuster ID - DB GRABIEL) [facility] CenterLipid [id number] 05:17:00 Test Item Value Reference Range Interpretation Comments Triglycerides (test 90 mg/dL code = 2571-8) Cholesterol (test code 171 mg/dL = 2093-3) HDL (test code = 39 mg/dL 2084-9) LDL Calculated (test 114 mg/dL code = 11383-1) GRABIEL (test code = GRABIEL) Triglyceride Reference Range: Low Risk <150 Borderline 150-199 High Risk 200-499 Very High Risk >=500 Cholesterol Reference Range: Low Risk <200 Borderline 200-239 High Risk >240 HDL Cholesterol Reference Range: Low Risk >=60 High Risk <40 LDL Cholesterol Reference Range: Optimal <100 Near Optimal 100-129 Borderline 130-159 High 160-189 Very High >=190 Cartridge Assembling Machine Adjuster ID - DB [facility] CenterCOMPREHENSIVE METABOLIC [id number] 05:17:00 Test Item Value Reference Range Interpretation [...] S NOT APPLICABLE FOR DIALYSIS PATIEN TS. Cartridge Assembling Machine Adjuster ID - DBLIPID [id number] 05:17:00 Test Item Value Reference Range Interpretation [...] Borderline 130-159 High 160-189 Very High >=190 Cartridge Assembling Machine Adjuster ID - DBB-type Natriuretic Factor (BNP)2020-09-26 05:16:00 Test Item Value Reference Range Interpretation Comments BNP (test code = 85422-6) 686 pg/mL 0-100 H GRABIEL (test code = GRABIEL) Cartridge Assembling Machine Adjuster ID - DB Lab Interpretation (test Abnormal code = 05011-5) [facility] CenterB-TYPE NATRIURETIC FACTOR (BNP)2020-09-26 05:16:00 Test Item Value Reference Range Interpretation Comments B-TYPE NATRIURETIC PEPTIDE (BEAKER) 686 pg/mL 0-100 H (test code = 700) Cartridge Assembling Machine Adjuster ID - DBHigh Sensitivity Troponin [id number] 05:14:00 Test Item Value Reference Range Interpretation Comments Troponin I HS 175 pg/ml See_Comment H [Automated (test code = message] The 24757-0) system which generated this result transmitted reference range : <=35. The reference range was not used to interpret this result as normal/abnormal . GRABIEL (test code = Cartridge Assembling Machine Adjuster ID - GRABIEL) DBThe LEAD DENTAL ASSISTANT STAT High Sensitivity Troponin-I results should be used in conjunction with other diagnostic information such as ECG, clinical observations and information, and patient symptoms to aid in the diagnosis of NC. Lab Interpretation Abnormal (test code = 08199-1) [facility] CenterHIGH SENSITIVITY TROPONIN [id number] 05:14:00 Test Item Value Reference Range Interpretation Comments HIGH SENSITIVITY 175 pg/ml See_Comment H [Automated message] TROPONIN I (test code The sy stem which = 5212425) generated this result transmitted ref erence range: <=35. Th e reference range was not used to int erpret this result as normal/abnormal . Cartridge Assembling Machine Adjuster ID - DBThe LEAD DENTAL ASSISTANT STAT High Sensitivity Troponin-I results should be used in conjunctionwith other diagnostic information such as ECG, clinical observations and information, and patient symptoms to aid in the diagnosis of NC.Prothrombin time/[id number] 05:07:00 Test Item Value Reference Interpretation Comments Range Protime (test code = 15.6 See_Comment H [Autom ated 7342-2) message] The system which generated this result transmitted reference range : 11.9 - 14.2 seconds. The reference range was not used to interpret this result as normal/abnormal . INR (test code = 1.26 See_Comment [Automated 8435-6) message] The system which generated this result [...] valves. Lab Interpretation Abnormal (test code = 17268-6) [facility] CenterPROTHROMBIN TIME/[id number] 05:07:00 Test Item Value Reference Range Interpretation Comments PROTIME (BEAKER) 15.6 seconds 11.9-14.2 H (test code = 759) INR (BEAKER) (test 1.26 See_Comment [Automat ed message] code = 370) The system [employer] generated this result transmitted ref erence range: [...] 4.1 See_Comment [A utomated message] The system KirkeWeb generated this result transmitted ref erence range: 3.5 - 10 .5 K/L. The refe rence range was not u sed to interpret this result as normal/abnor mal. RBC (test code = 789-8) 3.65 See_Comment L [Au tomated message] The system [employer] generated this result transmitted ref erence range: 4.63 - 6 .08 M/L. The refe rence range was not u sed to interpret this result as normal/abnor mal. MCHC (test code = 786-4) 31.2 See_Comment L [A utomated message] The system [employer] generated this result transmitted ref erence range: [...] L [Aut omated message] 777-3) The system [employer] generated this result transmitted ref erence range: 150 - 45 0 K/CU MM. The referen ce range was not u sed to interpret this result as normal/abnor mal. MPV (test code = 10.3 fL 9.4-12.4 80505-3) nRBC (test code = 413) 0 See_Comment [Aut omated message] The system [employer] generated this result transmitted ref erence range: [...] See_Comment [Aut omated message] 670) The system [employer] generated this result transmitted ref erence range: 1.78 - 5 .38 K/L. The refe rence range was not u sed to interpret this result as normal/abnor mal. # Lymphs (test code = 1.01 See_Comment L [Auto mated message] 414) The system [employer] generated this result transmitted ref erence range: 1.32 - 3 .57 K/L. The refe rence range was not u sed to interpret this result as normal/abnor mal. # Monos (test code = 0.44 See_Comment [Autom ated message] 415) The system [employer] generated this result transmitted ref erence range: 0.30 - 0 .82 K/L. The refe rence range was not u sed to interpret this result as normal/abnor mal. # Eos (test code = 416) 0.16 See_Comment [Au tomated message] The system [employer] generated this result transmitted ref erence range: 0.04 - 0 .54 K/L. The refe rence range was not u sed to interpret this result as normal/abnor mal. # Baso (test code = 417) 0.02 See_Comment [A utomated message] The system [employer] generated this result transmitted ref erence range: 0.01 - 0 .08 K/L. The refe rence range was not u sed to interpret this result as normal/abnor mal. Immature 0 % 0-1 Granulocytes-Relative (test code = 2801) Lab Interpretation (test Abnormal code = 02919-6) [facility] W/PLT COUNT & AUTO [id number] 04:49:00 Test Item Value Reference Range Interpretation [...] Not Detected Not Detected (test code = 98789-8) GRABIEL (test code = GRABIEL) ID NOW COVID-19 Assay is an isothermal nucleic acid amplification test intended for the qualitative detection of nucleic acid from SARS-CoV-2 viral RNA in nasopharyngeal (MANAGER MATH) specimens. It is used under Emergency Use [...] indicated. Lab Interpretation Normal (test code = 27294-3) [facility] WITH [id number] 19:54:17 Test Item Value Reference Range Interpretation Comments WBC (test code = See_Comment [Automated 2090-2) message] The sy stem which generated this result transmitted reference range : 4.20 - 10.70 10*3/?L. The reference range was not used to interpret this result as normal/abnormal . RBC (test code = See_Comment L [Automated 939-8) message] The sy stem which generated this [...] (test code = 52.3 fL 38.5-51.6 H 26874-0) RDW-CV (test code = 15.1 % 12.1-15.4 788-0) PLT (test code = See_Comment [Automated 777-3) message] The sy stem which generated this result transmitted reference range : 150 - 328 10*3/ ?L. The reference r sheryl was not used to interpret this result as normal/abnormal . MPV (test code = 10.2 fL 9.8-13.0 46431-4) NRBC/100 WBC (test See_Comment [Automat ed code = [id number]) message] The system which generated this result transmitted reference range : 0.0 - 10.0 /100 WBCs. The refer ence range was not u sed to interpret th is result as normal/abnormal . NRBC x10^3 (test code <0.01 See_Comment [Auto mated = 8723694387) message] The s ystem which generated this result transmitted reference range : 10*3/?L. The reference range was not used to interpret this result as normal/abnormal . GRAN MAT (NEUT) % 59.2 % (test code = 770-8) IMM GRAN % (test code 0.40 % = 9501790592) LYMPH % (test code = 26.7 % 736-9) MONO % (test code = 10.6 % 5905-5) EOS % (test code = 2.7 % 713-8) BASO % (test code = 0.4 % 706-2) GRAN MAT x10^3(ANC) 2.63 10*3/uL 1.99-6.95 (test code = 8649490456) IMM GRAN x10^3 (test <0.03 0.00-0.06 code = 6967662314) LYMPH x10^3 (test code 1.19 10*3/uL 1.09-3.23 = 731-0) MONO x10^3 (test code 0.47 10*3/uL 0.36-1.02 = 742-7) EOS x10^3 (test code = 0.12 10*3/uL 0.06-0.53 711-2) BASO x10^3 (test code <0.03 0.01-0.09 = 704-7) Lab Interpretation Abnormal (test code = 19341-5) [facility] FTOWC8342[facility]36 [facility]:22:00Yellow *NA*(01/15/19 6:22 PM)[facility] MFEVH3836-41-81 00:22:00Clear (01/15/19 6:22 PM)[facility] BAXYE2463-12-56 00:22:00 Test Item Value Reference Range Interpretation Comments UA Spec Grav (test code = UA Spec 1.023 1 Grav) [facility] NGYGO2389-21-21 00:22:00 Test Item Value Reference Range Interpretation Comments UA pH (test code = UA pH) 5.0 1 5.0-8.0 [facility] EIZSP1673-75-96 00:22:00Negative (01/15/19 6:22 PM) [facility] WDZTB4033-54-81 00:22:00Negative *NA*(01/15/19 6:22 PM)[facility] VBRHS4054-28-12 00:22:00Negative *NA*(01/15/19 6:22 PM)[facility] POAAW2241-28-76 00:22:00Negative (01/15/19 6:22 PM) [facility] ZPWYS6199-43-74 00:22:00Negative (01/15/19 6:22 PM) [facility] NRMHX7194-23-39 00:22:00Negative (01/15/19 6:22 PM) [facility] IWXIT5164-17-62 00:22:00None Seen (01/15/19 6:22 PM) [facility] WGAXK4629-59-76 00:22:001[facility] NMRWS1332-87-61 00:22:001[facility] ULDKI3551-77-10 00:22:00 Yellow *NA*(01/15/19 6:22 PM)[facility] VYLQC6816-34-19 00:22:00 Clear (01/15/19 6:22 PM)[facility] SWIQB3271-61-33 00:22:00 Test Item Value Reference Range Interpretation Comments UA Spec Grav (test code = UA Spec 1.023 1 Grav) [facility] CKGHK6021-26-71 00:22:00 Test Item Value Reference Range Interpretation Comments UA pH (test code = UA pH) 5.0 1 5.0-8.0 [facility] VTAIV7724-34-01 00:22:00Negative (01/15/19 6:22 PM) [facility] ERINS1498-52-34 00:22:00Negative *NA*(01/15/19 6:22 PM)[facility] WFKNW9848-53-36 00:22:00Negative *NA*(01/15/19 6:22 PM)[facility] XMBPI0785-48-85 00:22:00Negative (01/15/19 6:22 PM) [facility] OQVVY1982-79-26 00:22:00Negative (01/15/19 6:22 PM) [facility] DWPSC7150-15-91 00:22:00Negative (01/15/19 6:22 PM) [facility] VNQPH4904-72-99 00:22:00None Seen (01/15/19 6:22 PM) [facility] HDWRV5390-15-28 00:22:001[facility] MBAYM8139-88-97 00:22:001[facility] DSCTB1791-55-34 00:22:00 Yellow *NA*(01/15/19 6:22 PM)[facility] SMDCU9380-30-81 00:22:00 Clear (01/15/19 6:22 PM)[facility] PKZMM8165-83-86 00:22:00 Test Item Value Reference Range Interpretation Comments UA Spec Grav (test code = UA Spec 1.023 1 Grav) [facility] RFAIU8757-37-95 00:22:00 Test Item Value Reference Range Interpretation Comments UA pH (test code = UA pH) 5.0 1 5.0-8.0 [facility] SEFHF0397-53-79 00:22:00Negative (01/15/19 6:22 PM) [facility] GCWBZ3638-39-93 00:22:00Negative *NA*(01/15/19 6:22 PM)[facility] YEYUJ3143-46-70 00:22:00Negative *NA*(01/15/19 6:22 PM)[facility] DAHJS3414-98-05 00:22:00Negative (01/15/19 6:22 PM) [facility] HOGLE8910-47-84 00:22:00Negative (01/15/19 6:22 PM) [facility] HQTFQ0528-96-20 00:22:00Negative (01/15/19 6:22 PM) [facility] JNMRR9298-15-23 00:22:00None Seen (01/15/19 6:22 PM) [facility] NAQQY9942-81-56 00:22:001[facility] SVFXW0988-89-77 00:22:001[facility] FYRYS3549-32-01 10:48:002.3 [facility] MMRUW8395-10-87 10:48:003.0[facility]annELECTROLYTES 2019-01-14 10:48:0010.3[facility] IniqmikFBQIHFBPREOJ9452-68-62 10:48:00296 [facility] WjqrwqnHWAZVNKFHYDV9120-53-55 10:48:0015[facility]annELECTROLYTES 2019-01-14 10:48:000.69[facility] PbbjlyhYNCJLEAJLAKR3156-89-61 10:48:15027 [facility] VlzbprcWJHCSLRMQFOC9000-03-63 10:48:004.3[facility]annELECTROLYTES 2019-01-14 10:48:49149Exskfkub BwlzwqmDUMRRBONKOWA4562-26-98 10:48:0026[facility] CaxwdwxPOUCVYYGSUEN1880-56-43 10:48:008.9[facility] AwcfqlfMINCHVFPNJTX7858-62-67 10:48:0087[facility] CtrgpliNSKUYZVWMW6829-51-61 10:48:002.6[facility] YWJWFNTWWB5039-26-17 10:48:003.79[facility] FpvcflqXWUVDVJNIF9906-39-69 10:48:00 11.1[facility] NacbxpmXOXKBTCMNP9013-01-36 10:48:0034.9[facility]annHEMATOLOGY 2019-01-14 10:48:0092.0[facility] UhwaxrrKRFJLHMUGD8432-93-59 10:48:00 Test Item Value Reference Range Interpretation Comments MCH (test code = MCH) 29.3 pg 27.0-31.0 [facility] WdgqgylHHKKTAXYJV4315-95-62 10:48:0031.8[facility]annHEMATOLOGY 2019-01-14 10:48:0016.5[facility] VhssrbyEAEUSGCFCX5433-32-61 10:48:92180Ngeyxqjg OwdrcekNOCKEKYBWK2962-81-99 10:48:008.3[facility] JvsdgggARSCCBXJCA4597-90-80 10:48:0066.8[facility] YgbsrlgAIBQBJGHLQ0067-75-62 10:48:0012.6[facility] RSGEPEZFPI7899-39-31 10:48:008.4[facility] KhszngdVJJTIKSFXX1255-70-52 10:48:00 11.5[facility] QtuczvuQDBIIGQLFN3021-59-58 10:48:000.7[facility]annHEMATOLOGY 2019-01-14 10:48:001.7[facility] OmrzddlSQIXEMERVG0846-89-21 10:48:000.3[facility] XyqdregEWHSQKEESI1073-93-80 10:48:000.2[facility] AqaaeboLHUFCUUAZD5561-14-39 10:48:000.3[facility] VhnodueXMCGBZGCNLME0674-74-78 10:48:0087[facility] ABBDIBKPME6748-65-24 10:48:002.6[facility] VamvcmtXFKLTBVJTH7602-56-63 10:48:00 3.79[facility] EphnyezORMGWJEJVS5792-75-40 10:48:0011.1[facility]annHEMATOLOGY 2019-01-14 10:48:0034.9[facility] OphrbiqLNGUJQJEJZ8551-68-43 10:48:0092.0[facility] GgeoaxeFAAISEJBJZ8121-81-40 10:48:00 Test Item Value Reference Range Interpretation Comments MCH (test code = MCH) 29.3 pg 27.0-31.0 [facility] HgrwygqHRMTUODIRZ4053-65-08 10:48:0031.8[facility]annHEMATOLOGY 2019-01-14 10:48:0016.5[facility] MfexfjdCSHFDVPISF6616-58-52 10:48:05416Awkzfbwl QhokjdqPNSUYYJDIX2164-91-50 10:48:008.3[facility] IbpjwylZLAGNBAWUW7226-43-73 10:48:0066.8[facility] VymrdeeTYNDUVXTSB7180-50-49 10:48:0012.6[facility] NQMXSGKKOT0022-26-57 10:48:008.4[facility] HifpjntQRJBQYKEXK9633-69-22 10:48:00 11.5[facility] WpyfaazBWCRBYJTXD3963-90-27 10:48:000.7[facility]annHEMATOLOGY 2019-01-14 10:48:001.7[facility] IdjmcciDXWVCJKJRO9869-41-79 10:48:000.3[facility] TuwbwbrIPQFXABMNI3654-62-54 10:48:000.2[facility] DdtmyvkQCACBUBFTS1851-17-14 10:48:000.3[facility] HermannCHEM HAHER2129-37-07 10:48:002.3[facility]annCHEM XNAUT2532-10-36 10:48:003.0[facility] XcmbyohLXBANLPIZPMJ4418-00-62 10:48:0010.3 [facility] AnmwrqbNORHJXDZALNM7731-92-17 10:48:01716Okadhsqj HermannELECTROLYTES 2019-01-14 10:48:0015[facility] MpmxkokDUFWEHNXFOYM3974-28-45 10:48:000.69[facility] RjdjiwmYNWKOORUMRLD6423-88-51 10:48:07211Kdrxzvhd OlexgwaRBMBFMKNMGLU5332-16-73 10:48:004.3[facility] CnznpotADIZKKWJPPJP5628-34-43 10:48:66065Yzreawcc [facility] HDIYTFZFHCWN8669-60-34 10:48:0026[facility] GdohmfzWYDTBPEOXEPC9354-04-95 10:48:00 8.9[facility] XheipcwMEMSMOMTAPAQ6218-29-05 10:48:0087[facility]annHEMATOLOGY 2019-01-14 10:48:002.6[facility] LcdxwbhHOFRCWDHOU6525-17-94 10:48:003.79[facility] AiokipzDGFOUBHLWC3581-34-64 10:48:0011.1[facility] VeorquvJIDEPAJYSK3745-79-06 10:48:0034.9[facility] PnljrvoYISKSYFPCK8115-24-40 10:48:0092.0[facility] SIRSKEPWIJ8465-62-92 10:48:00 Test Item Value Reference Range Interpretation Comments MCH (test code = MCH) 29.3 pg 27.0-31.0 [facility] BgvcykvDJQLRMGPYH6546-40-57 10:48:0031.8[facility]annHEMATOLOGY 2019-01-14 10:48:0016.5[facility] CjnvhynJEPVFJESPG4490-77-84 10:48:32921Vvdmmcop AlzjpkxVBMMRJSOWV1027-15-64 10:48:008.3[facility] PxxpsspTNWBSCQZHK7332-25-42 10:48:0066.8[facility] JmiuomcXDYHXUFXAP1831-62-07 10:48:0012.6[facility] SZMMHWMSED7928-46-75 10:48:008.4[facility] KptjfxwDMYZCABKMC9818-42-16 10:48:00 11.5[facility] AwpqmhpMVFBUEAVKQ0477-61-73 10:48:000.7[facility]annHEMATOLOGY 2019-01-14 10:48:001.7[facility] JbgkwvmUPHRRVKUEE7910-13-59 10:48:000.3[facility] EvhllhxKDQXVOLURO0729-20-08 10:48:000.2[facility] AzmbwnyIDWRYICCWL2800-30-47 10:48:000.3[facility]annCHEM NAJPY4030-54-79 10:48:002.3[facility]annCHEM SEZCS7434-49-34 10:48:003.0[facility] LectuavCJIPBTWKNDIT5371-64-60 10:48:0010.3 [facility] YgmejxtOZWMMKWOUXBF4008-55-82 10:48:54468Yttskitq HermannELECTROLYTES 2019-01-14 10:48:0015[facility] PdqdddmEDPAVDSLZPZQ9965-72-64 10:48:000.69[facility] RpetqntSLHHRORZBDUP8150-62-09 10:48:07688Dzozcprt GrvicxbTNWTMPBONVXQ8437-52-49 10:48:004.3[facility] AtqmrujNZWRMEZYZKHD5533-64-85 10:48:17216Abxompeg [facility] BRMNFESTWXYY9980-64-83 10:48:0026[facility] HeyenrlSTJXPEWYFRUD6741-95-79 10:48:00 8.9[facility]annCHEM LHMNN3831-59-91 10:15:002.0[facility]annCHEM PANEL 2019-01-13 10:15:003.6[facility]annCHEM MMIKP9927-40-14 10:15:22450Uqgjljza HermannCHEM RVGIA4184-48-65 10:15:009[facility]annCHEM XJNPM3735-25-21 10:15:000.71[facility]annCHEM DODRU1882-31-71 10:15:48833Onyepoll HermannCHEM PKEQE6208-18-33 10:15:004.2[facility]annCHEM AWQBS9064-56-70 10:15:40803 [facility]annCHE[facility] MWYHD7392-63-94 10:15:0027[facility]annCHEM PANEL 2019-01-13 10:15:0010.2[facility]annCHEM SCXRB0597-57-13 10:15:008.9[facility]annCHEM CBUIB5292-24-70 10:15:0086[facility] RorwivrGZUBTWTOJV3439-32-38 10:15:0063.6[facility] SjjdrigTBWSIQOSNK2977-97-37 10:15:0019.5[facility] RKDRBJAHXA9721-33-60 10:15:0011.0[facility] NcijwckJBHTIVVFTG8252-65-75 10:15:00 5.2[facility] AhdoipdYIBLFJQLMK5243-56-00 10:15:000.7[facility]annHEMATOLOGY 2019-01-13 10:15:001.4[facility] MchctlwPPGUNCQQET0664-71-32 10:15:000.4[facility] OgkmoepVMWZYRQHDH4071-06-80 10:15:000.2[facility] MldiwsaHCRQDMOTBW0418-48-43 10:15:000.1[facility] WzcfwofNETUVDMTXD5137-46-85 10:15:002.2[facility] XXMTPMXSFK8537-70-79 10:15:003.60[facility] GaqxejgDYRHBLVOFP1604-55-11 10:15:00 10.8[facility] BtudjpoBJZANWWWPP2267-46-27 10:15:0033.4[facility]annHEMATOLOGY 2019-01-13 10:15:0092.9[facility] YbbbhxnSJACXGCLPU3142-42-61 10:15:00 Test Item Value Reference Range Interpretation Comments MCH (test code = MCH) 30.1 pg 27.0-31.0 [facility] LbavxcbGVCAHRPVEU2635-64-64 10:15:0032.4[facility]annHEMATOLOGY 2019-01-13 10:15:0017.0[facility] ItnjtouYMRKMLYCOO8221-56-83 10:15:29829Atubkhxf WfhqgloKXBFYLZWLA6520-94-74 10:15:008.0[facility] HermannCHEM EOBEI2805-68-21 10:15:002.0[facility]annCHEM AKBYR6637-72-14 10:15:003.6[facility]annCHEM MLCWD0625-71-27 10:15:29204Axlbsbkm HermannCHEM UNUML7821-99-17 10:15:009 [facility]annCHE[facility] PKARV1204-90-56 10:15:000.71[facility]annCHEM PANEL 2019-01-13 10:15:58298Mqbxsxdi HermannCHEM UZOAS0890-35-70 10:15:004.2[facility]annCHEM IWWMV2086-02-32 10:15:65559Deohvtqk HermannCHEM NWPOD0615-41-75 10:15:0027[facility]annCHEM ZKZMH4855-75-86 10:15:0010.2[facility]annCHEM AJSEJ1827-60-61 10:15:008.9[facility]annCHEM SEEDA8644-49-75 10:15:0086 [facility] BpfcnvjOMWBKXPUTE2115-38-82 10:15:0063.6[facility]annHEMATOLOGY 2019-01-13 10:15:0019.5[facility] XfobeheRMPKKOXDWA5176-47-09 10:15:0011.0[facility] AeiqaaaPIFQINKXML9240-33-07 10:15:005.2[facility] DnigpgeFHZTQCBROR6384-52-78 10:15:000.7[facility] OktjwmoHRDAAAPAAH1235-06-20 10:15:001.4[facility] NGURZPSBDU5754-98-86 10:15:000.4[facility] JwmzntdPAUDSNCOEA6988-22-54 10:15:000.2 [facility] RefaggwZPGCVMSAXM6108-38-51 10:15:000.1[facility]annHEMATOLOGY 2019-01-13 10:15:002.2[facility] UxhegaxOURGCPZNVY4661-36-79 10:15:003.60[facility] PcogissKYUYFGKEFW6380-31-93 10:15:0010.8[facility] AlpnvqeKUDZMYJPGJ0624-51-16 10:15:0033.4[facility] LgjosmzPOFNNTSKOE4831-67-63 10:15:0092.9[facility] VNONAMKQJM5583-39-55 10:15:00 Test Item Value Reference Range Interpretation Comments MCH (test code = MCH) 30.1 pg 27.0-31.0 [facility] SqkbpbtIRKWZQDQYF1348-28-52 10:15:0032.4[facility]annHEMATOLOGY 2019-01-13 10:15:0017.0[facility] WflqtkdUYYVXSYGWQ8842-93-44 10:15:73854Cjnhewvz RlbrxkqAJLDRFKDUV9126-31-70 10:15:008.0[facility]annCHEM ZZULS4010-76-49 10:15:002.0[facility]annCHEM SAXKY7989-45-19 10:15:003.6[facility]annCHEM YOBAV5343-08-46 10:15:39831Efjmaiff HermannCHEM QXGDL5778-13-79 10:15:009 [facility]annCHEM ERCHV7221-44-99 10:15:000.71[facility]annCHEM PANEL 2019-01-13 10:15:89293Kflqimib HermannCHEM MFWPG9582-82-24 10:15:004.2[facility]annCHEM EGAFX6158-71-66 10:15:75459[place] HermannCHEM BZUBS1912-98-95 10:15:0027[facility]annCHEM KMUGJ5471-66-15 10:15:0010.2[facility]annCHEM IKGCM3343-66-92 10:15:008.9[facility]annCHEM EBBAD0761-68-85 10:15:0086 [facility] XrzwujnTQHZAWWBES1107-28-43 10:15:0063.6[facility]annHEMATOLOGY 2019-01-13 10:15:0019.5[facility] ZpfnapgYCSWMSIJWT3448-27-39 10:15:0011.0[facility] BxyqtjoGMLNYSTFAE0824-79-75 10:15:005.2[facility] JvjeqyiPQRQGAQBTT0882-82-72 10:15:000.7[facility] LzwboaeYZYOGVOKDT2583-84-80 10:15:001.4[facility] FVGLMWHRJH9953-48-30 10:15:000.4[facility] DothjzjOEYUXJHCIE7345-40-76 10:15:000.2 [facility] NfjlqcmFBNDRAVTLJ7861-80-65 10:15:000.1[facility]annHEMATOLOGY 2019-01-13 10:15:002.2[facility] TmhydqcVNJVDFBWMI1575-44-27 10:15:003.60[facility] EonlwdqNDCYKZESWV8415-11-45 10:15:0010.8[facility] BgsquwzTDBBLWPFZG8917-97-60 10:15:0033.4[facility] VgirggiLEOOBWTOSB8326-62-73 10:15:0092.9[facility] DKPTGZFLCA0686-14-11 10:15:00 Test Item Value Reference Range Interpretation Comments MCH (test code = MCH) 30.1 pg 27.0-31.0 [facility] KbcwxcvYRFDZSCOEH3024-36-17 10:15:0032.4[facility]annHEMATOLOGY 2019-01-13 10:15:0017.0[facility] ThjdxtiGVRVBRKUFQ5909-36-20 10:15:87170Yovcroqj XwermjkVOUMXCHEHT4253-85-93 10:15:008.0[facility] HermannCHEM AEQDU7879-67-88 10:43:62366Qfxvlsfd HermannCHEM YZJXA0349-91-48 10:43:007[facility]annCHEM HRVHA4084-30-47 10:43:000.69[facility]annCHEM FWTWM2645-59-67 10:43:06155 [facility]annCHEM BEUZG3627-31-60 10:43:004.3[facility]annCHEM PANEL 2019-01-12 10:43:96446Gkmviaii HermannCHEM GXDOI1756-11-22 10:43:0026[facility]annCHEM HHAYI0463-58-13 10:43:008.5[facility]annCHEM DDMNH9211-03-29 10:43:0087[facility]annCHEM SFQOW3938-44-59 10:43:0011.3[facility]annCHEM QFUVW5896-96-81 10:43:001.9[facility]annCHEM WSQMD0053-35-29 10:43:002.8 [facility] BhewofbNNGXPJNDWZ4738-35-64 10:43:003.7[facility]annHEMATOLOGY 2019-01-12 10:43:003.68[facility] SmbxbkmYXMRZLPGTQ8206-71-12 10:43:0011.0[facility] QqbtgjsYWZYYALTLZ4307-13-59 10:43:0033.9[facility] DnbmalmGQYIDZSZFE6932-38-21 10:43:0092.1[facility] ZnvgnieRGAWVAQEIT3292-50-51 10:43:00 Test Item Value Reference Range Interpretation Comments MCH (test code = MCH) 30.0 pg 27.0-31.0 [facility] JfjxfnhQRAPMBBHUO3845-36-40 10:43:0032.6[facility]annHEMATOLOGY 2019-01-12 10:43:0016.7[facility] EqfzqsxMBLDPWDSSP9406-79-82 10:43:17409Svqdzlzv EcygrctNVNOVQEYSW8143-55-57 10:43:008.2[facility] FbfkchiZVMEDZRNYE9592-98-31 10:43:0076.8[facility] IkmljmyEYHLFEJXPV7099-45-05 10:43:009.9[facility] LUJGQTSPMR3586-62-23 10:43:0011.8[facility] IqxmpxfLXPUESHZSA0311-86-73 10:43:00 1.2[facility] NglsgruVYREPIYXYH0557-61-41 10:43:000.3[facility]annHEMATOLOGY 2019-01-12 10:43:002.8[facility] MsrqevjMVZKEQKPDE2279-60-48 10:43:000.4[facility] UdjqzowZLQJYSISRU9239-20-85 10:43:000.4[facility] HermannCHEM EZRFN1016-33-39 10:43:79312Ijbolesh HermannCHEM DETCI7895-89-66 10:43:007[facility] HermannCHEM QPDUS3359-59-74 10:43:000.69[facility]annCHEM ZJZPV3607-53-28 10:43:41209 [facility]annCHEM NSSBH7704-10-35 10:43:004.3[facility] HermannCHEM PANEL 2019-01-12 10:43:64177Ndlinpyr HermannCHEM VLCOC7899-46-00 10:43:0026[facility]annCHEM TUZID2310-00-23 10:43:008.5[facility]annCHEM JQVFE2868-04-74 10:43:0087[facility]annCHEM OZPDK2455-91-05 10:43:0011.3[facility] HermannCHEM LUYLB7903-21-00 10:43:001.9[facility]annCHEM AWBGL1064-75-72 10:43:002.8 [facility] OzrhuowVCADYTAVPF9249-51-87 10:43:003.7[facility]annHEMATOLOGY 2019-01-12 10:43:003.68[facility] VmktocrSCACYHYQHV3245-40-75 10:43:0011.0[facility] FcztgayPOHJKIFBMZ3641-22-11 10:43:0033.9[facility] CsnsznyFSSGTGCQWE7063-48-31 10:43:0092.1[facility] YgnqzlmTZNPBLTDTY2778-22-75 10:43:00 Test Item Value Reference Range Interpretation Comments MCH (test code = MCH) 30.0 pg 27.0-31.0 [facility] PalvvqcORBIOMZHWW8127-16-34 10:43:0032.6[facility] HermannHEMATOLOGY 2019-01-12 10:43:0016.7[facility] DgnllyoHMCKQFCCMW5985-01-50 10:43:48713Pfadmklf CqgvcmbRYZISNVIEO8362-47-38 10:43:008.2[facility] TjylyeoIXGZBRCJOX9852-74-13 10:43:0076.8[facility] IgvmfqkNHAGHBUNPS7494-80-75 10:43:009.9[facility] OZJYHOYJJL6468-17-74 10:43:0011.8[facility] IdhvymcHGVDECGRAB4669-66-85 10:43:00 1.2[facility] CubebvrRWYFJPTAYC0209-72-20 10:43:000.3[facility]annHEMATOLOGY 2019-01-12 10:43:002.8[facility] VfssnfdOKIOCULFWB0925-81-61 10:43:000.4[facility] GauehykHXJBWYOAAW4878-47-64 10:43:000.4[facility] HermannCHEM QVRPH1716-26-80 10:43:33387Ggutrfvz HermannCHEM IJBXT9005-01-70 10:43:007[facility] HermannCHEM ZVSAN5521-15-66 10:43:000.69[facility]annCHEM ZVRGS1420-04-00 10:43:57805 [facility]annCHEM JFLUP3388-76-05 10:43:004.3[facility] HermannCHEM PANEL 2019-01-12 10:43:24317Ywxlyjmu [facility]annCHEM RVHHH3927-90-32 10:43:0026[facility]annCHEM FATIV3774-67-30 10:43:008.5[facility]annCHEM WSIQA8820-42-52 10:43:0087[facility]annCHEM YFXJG0192-63-96 10:43:0011.3[facility] HermannCHEM OFFKC3682-08-92 10:43:001.9[facility]annCHEM BKYXW5653-47-06 10:43:002.8 [facility] PdhmiadMCSPFZGJHQ9885-66-20 10:43:003.7[facility]annHEMATOLOGY 2019-01-12 10:43:003.68[facility] AxomqzlYBIBIPGTYM3483-49-18 10:43:0011.0[facility] GiajvmcUCNSBPCPRD1506-82-73 10:43:0033.9[facility] TkkugucUEUDYWSJNP7280-76-39 10:43:0092.1[facility] FjjtisjBEXMWGTGZU0022-23-60 10:43:00 Test Item Value Reference Range Interpretation Comments MCH (test code = MCH) 30.0 pg 27.0-31.0 [facility] SesntfrDUMJCAATXW3481-81-87 10:43:0032.6[facility]annHEMATOLOGY 2019-01-12 10:43:0016.7[facility] BbagotlHOMNKUZUAE6127-65-17 10:43:42358Eeknzqza RxxsbmdCZWAXFEGNC2900-27-51 10:43:008.2[facility] TxrciovGPIHAEQGLS3849-04-74 10:43:0076.8[facility] NkoumldQQJVVIDMGS0977-88-00 10:43:009.9[facility] LKMPPEDKJG0395-69-08 10:43:0011.8[facility] RlnkfyrROROVFGNDR8736-12-18 10:43:00 1.2[facility] WqnjcgiOYDNHVMEYQ5996-05-96 10:43:000.3[facility]annHEMATOLOGY 2019-01-12 10:43:002.8[facility] StwwvbzREPTHTGQPY6670-43-27 10:43:000.4[facility] JzczyptWWYAURUSBQ6702-05-90 10:43:000.4[facility]annBACTERIAL - SEROLOGY 2019-01-10 09:33:00Urine *NA*(01/10/19 3:33 AM)[facility]annBACT[facility] - GRNSEPIP0572-69-63 09:33:00Negative (01/10/19 3:33 AM)[facility] ZUGYG8342-90-49 09:33:00Yellow *NA*(01/10/19 3:33 AM)[facility] [id number] 09:33:00Clear (01/10/19 3:33 AM)[facility] STOOL 2019-01-10 09:33:00 Test Item Value Reference Range Interpretation Comments UA Spec Grav (test code = UA Spec 1.014 1 Grav) [facility] DOWSH8741-03-02 09:33:00 Test Item Value Reference Range Interpretation Comments UA pH (test code = UA pH) 5.0 1 5.0-8.0 [facility] PGYQE4026-47-32 09:33:00Negative (01/10/19 3:33 AM) [facility] ICEES4267-17-95 09:33:00Negative *NA*(01/10/19 3:33 AM)[facility] ZJXQE9823-36-08 09:33:00Trace *ABN*(01/10/19 3:33 AM)[facility] NCJZJ8211-88-13 09:33:00Negative *NA*(01/10/19 3:33 AM)[facility] ZDPLS3722-36-35 09:33:00Negative (01/10/19 3:33 AM) [facility] GWDDW8154-45-99 09:33:00Negative (01/10/19 3:33 AM) [facility] UYXWJ2308-11-56 09:33:00Negative (01/10/19 3:33 AM) [facility] PZLNU4264-80-92 09:33:00None Seen (01/10/19 3:33 AM) [facility] SZPSW8962-63-83 09:33:00<1[facility] OPNWC0818-81-40 09:33:00<1[facility]annBACTERIAL - CYCTAAVX1597-65-59 09:33:00Urine *NA*(01/10/19 3:33 AM)[facility]BA[facility] - SEROLOGY 2019-01-10 09:33:00Negative (01/10/19 3:33 AM)[facility] STOOL 2019-01-10 09:33:00Yellow *NA*(01/10/19 3:33 AM)[facility] STOOL 2019-01-10 09:33:00Clear (01/10/19 3:33 AM)[facility] STOOL 2019-01-10 09:33:00 Test Item Value Reference Range Interpretation Comments UA Spec Grav (test code = UA Spec 1.014 1 Grav) [facility] [id number] 09:33:00 Test Item Value Reference Range Interpretation Comments UA pH (test code = UA pH) 5.0 1 5.0-8.0 [facility] [id number] 09:33:00Negative (01/10/19 3:33 AM) [facility] RYZIP7598-80-42 09:33:00Negative *NA*(01/10/19 3:33 AM)[facility] PILFN1147-31-23 09:33:00Trace *ABN*(01/10/19 3:33 AM)[facility] ALSZO1785-75-08 09:33:00Negative *NA*(01/10/19 3:33 AM)[facility] [id number] 09:33:00Negative (01/10/19 3:33 AM) [facility] EBTJF5757-59-07 09:33:00Negative (01/10/19 3:33 AM) [facility] UEYNQ5024-59-52 09:33:00Negative (01/10/19 3:33 AM) [facility] PJWET6332-26-22 09:33:00None Seen (01/10/19 3:33 AM) [facility] WFBJR9951-32-01 09:33:00<1[facility] FSTML8567-05-12 09:33:00<1[facility]annBACTERIAL - PCSQBPDL4332-37-51 09:33:00Urine *NA*(01/10/19 3:33 AM)[facility]annBACT[facility] - SEROLOGY 2019-01-10 09:33:00Negative (01/10/19 3:33 AM)[facility] STOOL 2019-01-10 09:33:00Yellow *NA*(01/10/19 3:33 AM)[facility] STOOL 2019-01-10 09:33:00Clear (01/10/19 3:33 AM)[facility] STOOL 2019-01-10 09:33:00 Test Item Value Reference Range Interpretation Comments UA Spec Grav (test code = UA Spec 1.014 1 Grav) [facility] SUSYF2369-06-38 09:33:00 Test Item Value Reference Range Interpretation Comments UA pH (test code = UA pH) 5.0 1 5.0-8.0 [facility] GJCBY2112-64-77 09:33:00Negative (01/10/19 3:33 AM) [facility] VTRLQ3960-16-66 09:33:00Negative *NA*(01/10/19 3:33 AM)[facility] JRBAM3972-35-64 09:33:00Trace *ABN*(01/10/19 3:33 AM)[facility] XZNLR8970-65-91 09:33:00Negative *NA*(01/10/19 3:33 AM)[facility] WEKHZ3950-45-12 09:33:00Negative (01/10/19 3:33 AM) [facility] NGFEU2570-33-47 09:33:00Negative (01/10/19 3:33 AM) [facility] TXXLC4435-54-36 09:33:00Negative (01/10/19 3:33 AM) [facility] CVQGA3538-78-03 09:33:00None Seen (01/10/19 3:33 AM) [facility] RPSLZ1919-12-80 09:33:00<1[facility] IFDSP7661-73-08 09:33:00<1[facility] HermannVIRAL - LCKHZPDX3406-52-89 07:15:00 Negative (01/10/19 1:15 AM)[facility]annVIRAL - HNYJXZJS8354-33-93 07:15:00 Negative (01/10/19 1:15 AM)[facility]ann[facility] - XMSRTURY3978-04-42 07:15:00 Negative (01/10/19 1:15 AM)[facility]ann[facility] - XPZRVZFE5643-22-23 07:15:00 Negative (01/10/19 1:15 AM)[facility]annV[facility] - JRFWIISX5336-46-84 07:15:00 Negative (01/10/19 1:15 AM)[facility]annVIRAL - WETAZUDA6163-28-76 07:15:00 Negative (01/10/19 1:15 AM)[facility]annCARDIAC VQMPQMK2239-31-27 05:21:00 0.09[facility]annCHEM BAIYQ4479-22-82 05:21:007.1[facility]annCHEM PANEL 2019-01-10 05:21:003.1[facility]annCHEM YSJUF8361-23-73 05:21:0027[facility]annCHEM LOEHX6930-05-37 05:21:0027[facility]annCHEM GVAWF6508-23-94 05:21:31471Zvogiimw HermannCHEM EHKUH1280-18-03 05:21:000.5[facility]annCHEM GQMCR4297-90-62 05:21:00 Test Item Value Reference Range Interpretation Comments B/C Ratio (test code = B/C Ratio) 17 1 6-25 [facility]annCHE[facility] FDXYQ1629-91-99 05:21:004.0[facility]annCHEM PANEL 2019-01-10 05:21:00 Test Item Value Reference Range Interpretation Comments A/G Ratio (test code = A/G Ratio) 0.8 1 0.7-1.6 [facility]annCHEM KGKVL3556-21-09 05:21:000.9[facility]annHEMATOLOGY 2019-01-10 05:21:00 Test Item Value Reference Range Interpretation Comments INR (test code = INR) 1.08 1 0.85-1.17 [facility] FkowopqXWJKFGMRVN4805-71-08 05:21:00 Test Item Value Reference Range Interpretation Comments PT (test code = PT) 13.8 s 12.0-14.7 [facility] DlwwymwYLVACEETBV0071-24-43 05:21:00 Test Item Value Reference Range Interpretation Comments PTT (test code = PTT) 23.3 s 22.9-35.8 [facility] TaypkhkATXQDAEWSX3010-78-85 05:21:000.2[facility]annCARDIAC ENZYMES 2019-01-10 05:21:000.09[facility] HermannCHEM GSVSZ2327-35-90 05:21:007.1[facility] HermannCHEM AVUQY3906-88-03 05:21:003.1[facility] [id number] 05:21:0027[facility]annCHEM [id number] 05:21:0027[facility]annCHEM [id number] 05:21:81190Qdghzhqf HermannCHEM [id number] 05:21:000.5 [facility] [id number] 05:21:00 Test Item Value Reference Range Interpretation Comments B/C Ratio (test code = B/C Ratio) 17 1 6-25 [facility] HermannCHEM [id number] 05:21:004.0[facility]annCHE[facility] PANEL 2019-01-10 05:21:00 Test Item Value Reference Range Interpretation Comments A/G Ratio (test code = A/G Ratio) 0.8 1 0.7-1.6 [facility] [id number] 05:21:000.9[facility]annHEMATOLOGY 2019-01-10 05:21:00 Test Item Value Reference Range Interpretation Comments INR (test code = INR) 1.08 1 0.85-1.17 [id number] 05:21:00 Test Item Value Reference Range Interpretation Comments PT (test code = PT) 13.8 s 12.0-14.7 [facility] [id number] 05:21:00 Test Item Value Reference Range Interpretation Comments PTT (test code = PTT) 23.3 s 22.9-35.8 [facility] [id number] 05:21:000.2[facility]annCARDIAC ENZYMES 2019-01-10 05:21:000.09[facility]annCHEM [id number] 05:21:007.1[facility]ann[facility] [id number] 05:21:003.1[facility]annCHE[facility] [id number] 05:21:0027[facility]annCHEM [id number] 05:21:0027[facility]annCHE[facility] [id number] 05:21:21065Niivmmlx HermannCHEM [id number] 05:21:000.5 [facility] [id number] 05:21:00 Test Item Value Reference Range Interpretation Comments B/C Ratio (test code = B/C Ratio) 17 1 6-25 [facility] [id number] 05:21:004.0[facility]annCHEM PANEL 2019-01-10 05:21:00 Test Item Value Reference Range Interpretation Comments A/G Ratio (test code = A/G Ratio) 0.8 1 0.7-1.6 [facility] [id number] 05:21[facility]000.9[facility] 2019-01-10 05:21:00 Test Item Value Reference Range Interpretation Comments INR (test code = INR) 1.08 1 0.85-1.17 [id number] 05:21:00 Test Item Value Reference Range Interpretation Comments PT (test code = PT) 13.8 s 12.0-14.7 [id number] 05:21:00 Test Item Value Reference Range Interpretation Comments PTT (test code = PTT) 23.3 s 22.9-35.8 [facility] [id number] 05:21:000.2[facility]
[2021-02-14] MEDS ORDERED: NA CHLORIDE 0.9% 500 ML ONE (16:55)
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
[2021-02-14 18:01] LABS: ALT/SGPT 24 U/L (12-78); AST/SGOT 27 U/L (15-37); Albumin 2.7 g/dL (3.4-5.0); Alkaline Phosphatase 81 U/L (45-117); BUN Blood Urea Nitrogen 8 mg/dL (7-18); Bicarbonate 23 mmol/L (21-32); Bilirubin Direct 0.2 mg/dL (0-0.2); Bilirubin Total 0.4 mg/dL (0.2-1.0); Glucose Level 96 mg/dL (74-106); Magnesium 2.2 mg/dL (1.8-2.4); NT PRO-BNP 17111 pg/mL (<450); Protein, Total 6.4 g/dL (6.4-8.2); Sodium Level 142 mmol/L (136-145)
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
--- NOTE | 2021-02-14 18:17 | RAD REPORT ---
EXAM DESCRIPTION: RAD - Hip Left 2 View - 02/14/2021 5:44 pm CLINICAL HISTORY: PAIN COMPARISON: Hip Left 2 View dated 12/31/2017 FINDINGS: AP and frogleg views of the left hip were obtained. There is no fracture or dislocation. Severe hip joint degenerative changes are present. The superior articular margin of the femoral head is flattened with subcortical degenerative cystic change. Joint space is effaced. Marginal degenerative spurring changes are present. Partially imaged left hemipelvi s shows no acute fracture change. Mild contusion or edema changes are seen lateral to the hip joint. No foreign body seen. IMPRESSION: Lateral soft tissue contusion or edema. Severe left hip joint degenerative change without acute finding.
[2021-02-14] MEDS ORDERED: FENTANYL 25 MCG/PATCH TD ONE ×2 (18:56)
[2021-02-14 19:57] VITALS: BP 151/93; O2SAT 96
--- NOTE | 2021-02-15 07:35 | EKG ---
Test Date: 2021-02-14 Test Time: 17:01:03 Jackhammer Operator: ALEJANDRO MEASUREMENT RESULTS: Intervals: Rate: 75 GA: QRSD: 74 QT: 390 QTc: 435 [place]: P: GA: QRS: 80 T: 96 INTERPRETIVE STATEMENTS: Accelerated Junctional rhythm with occasional premature ventricular complexes Cannot rule out Anterior infarct, age undetermined Abnormal ECG Compared to ECG 01/07/2021 09:09:37 Accelerated junctional rhythm now present Ventricular premature complex(es) now present Myocardial infarct finding now present Sinus bradycardia no longer present First degree AV block no longer present Right-axis deviation no longer present ST (T wave) deviation no longer present Possible ischemia no longer present Electronically Signed On 02-15-21 07:34:43 INDUSTRIAL ORDER CLERK by Pollo Navarro
== END 2021-02-14 19:30 | disposition home or self-care (01) ==
LOC: ER 16:30
DX: S01.81XA Laceration without foreign body of other part of head, initial encounter (principal); S91.111A Laceration without foreign body of right great toe without damage to nail, initial encounter; S61.219A Laceration without foreign body of unspecified finger without damage to nail, initial encounter; J90 Pleural effusion, not elsewhere classified; M16.12 Unilateral primary osteoarthritis, left hip; V03.90XA Pedestrian on foot injured in collision with car, pick-up truck or van, unspecified whether traffic or nontraffic accident, initial encounter; I10 Essential (primary) hypertension; I48.91 Unspecified atrial fibrillation; I50.9 Heart failure, unspecified; Z79.01 Long term (current) use of anticoagulants; Z79.82 Long term (current) use of aspirin; Z88.3 Allergy status to other anti-infective agents; Z88.5 Allergy status to narcotic agent
CPT/HCPCS: 93005; 80048; 83735; 80076; 84484; 83880; 70450; 71250; 72125; 71045; 72170; 73502; 99285; J7040

== ENCOUNTER 2021-02-21 14:41 | Inpatient (IN) | payer OTHER ==
--- OUTSIDE RECORDS SUMMARY | 2021-02-21 14:45 | XMS REPORT | Clinical Summary ---
:1935 Author Organization [facility] MD [facility] Address [address] [place] [address] Care Team Providers Name Role Phone Kuldeep [...] g 12/18/2018 Active (PREVIDENT) 1.1 % daily. [place] dental teeth with cream creamIndications: and spit [...] likely . 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 hospitlilized x 10 days. requ ired IV abx and debridement [place] EXC SKIN MALIG 0.6-1 09/19/2018 Right Procedur e: EXCISION OF CM REMAINDR BODY MALIGNANT LESIO N OF SCALP; Surgeon: Roshan Sauceda MD; Location: MAIN OR; Service: HN - HEAD & NECK SURGERY Medical devices from this surgery are in t he Implants section. [place] SUB GRFT 09/19/2018 Right Procedure: APPLI CATION OF F/S/N/H/F/G/M/D /<100SCM SKIN WU BSTITUTE GRAFT TO /<1ST 25 SCM SCALP; Surgeon: Roshan Sauceda MD; Loca tion: MAIN OR; Service: HN - HEAD & NECK SURGERY Medical devices from this surgery are in t he Implants section. [place] EXC SKIN MALIG 0.6-1 10/10/2018 Midline Procedur e: EXCISION OF CM REMAINDR BODY MALIGNANT LESIO N OF SCALP; Surgeon: Roshan Sauceda MD; Location: MAIN OR; Service: HN - HEAD & NECK SURGERY Medical devices from this surgery are in t he Implants section. [place] FREE MUSC-SKIN FLAP 10/10/2018 Back/Right Procedure : FREE MUSCLE OR W/MICROVASC ANAST MYOCUTANEOUS F LAP WITH MICRVASCULAR TUCKER STOMOSIS; Surgeon: Charles Moreno MD; Location: MAIN O R; Service: PLS - PLASTIC WU RGERY Medical devices from this surgery are in t he Implants section. [place] SPLIT GRFT 10/10/2018 Thigh/Right Procedure: SPLIT THICKNESS TRUNK,ARM,LEG <100 SQCM SKIN GRA FT OF TRUNK/ARM OR LEG 05a32tu; Wu rgeon: Charles Moreno MD; Loca tion: MAIN OR; Service: PL S - PLASTIC SURGERY Medical devices from this surgery are in t he Implants section. [place] CHG FLUOROSCOPY UP TO 10/30/2018 Right Procedu re: FLUOROSCOPY; 1 HOUR PHYSICIAN/QHP Surgeon: Srinivasa Simmons MD; TIME Location: MAIN O R; Service: ORTHOPEDIC ONCOL OGY Medical devices from this surgery are in t he Implants section. [place] OPEN FIX 10/30/2018 Hip/Right Procedure: OPEN REDUCTION [...] carcinoma of skin 2014 Coronary arteriosclerosis 2011 SC n 2011 with had chest pains. sp cardiac stents x 2 ( reportedly had another SC during pr ocedure). pt was started on [...] Vaccination (1) 1945 Implants Implanted Type Area Supervisor Instant Potato Processing Device Shelf Model / Identifier Expiration Serial / Date Lot Tooth Cutter Clutch Microvascular Anastomotic Device 2.5mm - [id number] Card ioPulm Scalp Vaccibody JOHN 04/24/2023 [id number] / Implanted: Qty: 1 on 10/10/2018 by Charles Moreno MD at [facility] / [id number] Biomet Hip Frac Nail 11*400mm Rt Implant Right: [employer] 06/10/2028 [id number] / Implanted: Qty: 1 on 10/30/2018 by Ramón Simmons MD at [facility] Femur / [id number] Biomet Hf-Nail Lag Screw 10.5*105mm Implant Right: [employer] 08/07/2027 [id number] / Implanted: Qty: 1 on 10/30/2018 by Ramón Simmons MD at [facility] Femur / [id number] Biomet Cortical Bone Screw 5*54mm Implant Right: [employer] 06/26/2026 [id number] / Implanted: Qty: 1 on 10/30/2018 by Ramón Simmons MD at [facility] Femur / [id number] Integra Bp Dural Graft 4x5cm - Sna Skin/Tissue [employer] 05/26/2020 [id number] / Implanted: Qty: 1 on 09/19/2018 by Roshan Sauceda MD at [facility] NA / SURG [id number] Cardiac Stents Description: 2010 x2,, 2017 x1 Pins Description: pins on the left elbow Results Not on fileafter 02/22/2020 Insurance Payer Benefit Plan / Subscriber ID Effective Dates Phone Addre ss Type Group AETNA MEDICARE AETNA MEDICARE [id number] 2013-Margarita SWANSON [id number] [place] [address] Advance Directives Code Status Date Activated Date Inactivated Comments Full Code 10/29/2018 6:58 PM 11/12/2018 9:54 PM Full Code 10/10/2018 10:29 AM 10/15/2018 8:46 PM Care Teams Sloop Captain Relationship Specialty Start Date End Date Kuldeep Melgoza MD PCP - External Dermatology 08/16/18 [address] [facility] [place] [address] Roshan Sauceda MD PCP - General Head and Neck Surgery 08/16/18 [facility] [place] [address] Ronn Wilson, PCP - External Primary Family Practice 09/04/17 MD Care Provider [address] [place] [id number] Pollo Navarro PCP - External Follow Cardiology 09/04/17 MD Rae Up [place] [address] [place] [id number]
--- OUTSIDE RECORDS SUMMARY | 2021-02-21 14:52 | XMS REPORT | Continuity of Care Document ---
:1935 Author Organization [facility] t Address [address] [place] [address] Dr. Crawford. [address] [place] [address] Care Team Providers Name Role Phone Katie [...] Expiration Date Sour ce Number [employer]ETNA MANAGED [id number] 2020 MEDICARE PPO-FERNANDO 00:00:00 AETNA MEDICARE O [id number] 2020 POS PPO 00:00:00 AETNA MEDICAREAETNA [id number] 2013 [place] MEDICARE 00:00:00 [id number] -[id number] [address]Medicare Problems Condition Condition Condition Status Onset Resolution Last Treating Co mments Source Name Details Category Date Date Treatment Clinician Date NSTEMI NSTEMI Disease Active [facility] - elevated elevated 00:00: Medica l myocardial myocardial 00 Ce nter infarction infarction ) ) FEVER Diagnosis Active 2018-022019-01-27 Mem oria 03-11 22:24:00 l FEVER 00:00: [place] 00 Active 01/09/2019 [facility] [place] Unexplaine Unexplaine Disease Active 2018-02 Last M [...] Added automatic ally from request for surgery [id number] Encounter Encounter Disease Active Overview: for other [...] 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 05/09/17: LAD prox patent stent X [...] 2020-09-09 M emoria a 00:53:30 l (finding) [place] Paresthesi a (finding) Active Problem 09/09/2020 Mischer [...] 1-14 22:44:12 22:44:12 l fever) Chills 18:00: [place] (without 00 fever) 01/09/2019 01/21/2019 [place] Allergies, Adverse Reactions, Alerts Allergy Allergy Status Severity Reaction(s) Onset Inactive Treating Comm ents Source Name Type Date Date Clinician CODEINE DRUG Active Unknown-Cmnt Uni vers INGREDI 7-20 ity of 00:00: [place] [facility] CEPHALEX DRUG Active Unknown-Cmnt Un mary IN INGREDI 7-20 ity of 00:00: [place] 00 [facility] Codeine Propensi Active Unknown - Univ ers ty to See comments 7-20 ity of adverse 00:00: [place] reaction 00 [facility] Cephalex Propensi Active Unknown - Uni vers in ty to See comments 7-20 ity of adverse 00:00: [place] reaction 00 [facility] NO KNOWN Drug Active Univers ALLERGIE Class ity of S [facility] codeine codeine Active Memoria l [...] Exposure to Not sure University SARS-CoV-2 (event) [facility] History [facility] 2020-09-26 2020-09-[address] [facility] - Alcohol Frequency 00:00:00 00:00:00 Medical Center History [facility] 2020-09-26 2020-09-[address] [facility] - Alcohol Std Drinks 00:00:00 00:00:00 Medica l Center History [facility] 2020-09-26 2020-09-[address] [facility] [...] [birth year] Universit y of 00:00:00 00:00:00 [facility] Smoking Status Start Date Stop Date Source Unknown if ever smoked [facility] Never smoker [facility] Branch Social History 2019-01-10 07:34:37 2019-01-10 07:34:37 [facility] [place] [facility] Ordered Filled Start Stop Current Ordering Indication Dosage Frequency Signature Comments Components Source Medication Medication Date Date Medication? Clinician (SIG) Name Name [facility] 2020-02 Yes PRN, Univers (MIOSTAT) 0-06 Starting ity of 0.01 % 15:28: on Wed [place] intraocular 00 12/01/20 at [place] dical injection 1028, Branch Until Discontinu ed, [...] Wed [place] intraocular 00 :40 12/01/20 at [place] dical injection 1028, Branch Until 12/01/20 at [...] on Wed [place] (MAXITROL) 00 12/01/20 at [facility] ica 3.5 1027, Branch mg/g-10,000 Until unit/g-0.1 Discontinu % ed, ophthalmic Routine, ointment Intra-op neomycin-po 2020-02- No PRN, Unive rs lymyxin-dex 0-06 10-06 Starting ity of amethasone 15:27: 18:16 [place] Sun [place] ([place] 00 :40 12/01/20 at [facility] ica 3.5 1027, Branch mg/g-10,000 Until Wed unit/g-0.1 12/01/20 at % 1316, ophthalmic Routine, ointment Intra-op balanced 2020-02 Yes PRN, Univers salt irrig 0-06 Starting ity o f soln comb1 15:23: on Sun (BSS PLUS) 00 12/01/20 at [facility] ophthalmic 1023, Branch solution Until 500 mL bag Discontinu ed, Routine, Intra-op EPINEPHrine 2020-02 Yes PRN, Univer s 1:1,000 (1 0-06 Starting ity o f mg/mL) 15:23: on Sun (ADRENALIN) 00 12/01/20 at [place] dical injection 1023, Branch Until Discontinu ed, Routine, Intra-op balanced 2020-02- No PRN, Univers salt irrig 0-06 10-06 Starting ity of soln comb1 15:23: 18:16 [place] Sun [place] (B[place] PLUS[place] 00 :40 12/01/20 at [facility] ophthalmic 1023, Branch solution Until Sun 500 mL bag 12/01/20 at 1316, Routine, Intra-op EPINEPHrine 2020-02- No PRN, Unive rs 1:1,000 (1 0-06 10-06 Starting ity of mg/mL) 15:23: 18:16 on Sun (ADRENALIN) 00 :40 12/01/20 at [place] dical injection 1023, Branch Until 12/01/20 at [...] [place] solution 00 :40 12/01/20 at [facility] al 1019, Branch Until Sun12/01/20 at 1316, Routine, Intra-op Hyaluronida 2020-02 Yes PRN, Univer s se, Human 0-06 Starting ity of Recomb. 15:15: on Sun [place] (HYLENEX) 00 12/01/20 at [facility] injection 1015, Branch Until Discontinu ed, Routine, Intra-op eye block 2020-02 Yes PRN, Univers syringe 11 0-06 Starting ity o f mL 15:15: on Sun [place] 00 12/01/20 at [place] [id number], Branch Until Discontinu ed, Intra-op Hyaluronida 2020-02- No PRN, Unive rs se, Human 0-06 10-06 Starting ity o f Recomb. 15:15: 18:16 on Sun [place] (HYLENEX) 00 :40 12/01/20 at [facility] injection 1015, Branch Until Sun12/01/20 at 1316, Routine, Intra-op eye block 2020-02- No PRN, Univers syringe 11 0-06 10-06 Starting ity of mL 15:15: 18:16 on Sun [place] 00 :40 12/01/20 at [place] [id number], Branch Until Sun12/01/20 at 1316, Intra-op mydriatic [...] 0-06 by mouth. ity of tablet 11:16: [address] famotidine 2020-02 Yes 20mg Take 20 mg U nivers 20 mg 0-06 by mouth. ity of tablet 11:16: [address] aspirin 81 2020-02 Yes 81mg Take 81 mg U nivers mg EC 0-06 by mouth. ity of tablet 11:16: [address] famotidine 2020-02 Yes 20mg Take 20 mg U nivers 20 mg 0-06 by mouth. ity of tablet 11:16: [address] sotaloL Yes life-threat 80mg Q.5D Take [...] Medical tablet 16 Center furosemide Yes 80mg [id number] Take [address] (LASIX) 80 8-04 [id number] by mouth 3 [facility] - MG tablet [...] 7-21 by mouth. ity of tablet 20:06: [address] famotidine Yes 20mg Take 20 mg U nivers 20 mg 7-21 by mouth. ity of tablet 20:06: [address] aspirin 81 0 Yes 81mg Take 81 mg U nivers mg EC 7-21 by mouth. ity of tablet 20:06: [address] famotidine Yes 20mg Take 20 mg U nivers 20 mg 7-21 by mouth. ity of tablet 20:06: [address] balanced 0 Yes PRN, Univers salt irrig 09-15 Starting ity o f soln comb1 18:58: Wed [place] (BSS PLUS) 00 09/15/20 at [facility] ical ophthalmic 1358, Branch solution Until 500 mL bag Discontinu ed, Routine, Intra-op carbachoL 0 Yes PRN, Univers (MIOSTAT) 09-15 Starting ity of 0.01 % 18:58: Sun [place] intraocular 00 09/15/20 at N[place] dical injection 1358, Branch Until Discontinu ed, Routine, Intra-op dexamethaso Yes PRN, Univer s ne 09-15 Starting ity of (DECADRON 18:58: Sun [place] PHOSPHATE) 09/15/20 at [facility] ical injection 1358, Branch Until Discontinu ed, Routine, Intra-op DUOVISC Yes PRN, Univers (DUOVISC 09-15 Starting ity of VISCO 18:58: Wed [place] ELASTIC) 3 00 09/15/20 at [facility] ical %-4 %(0.5 1358, Branch mL) 1 % Until (0.55 mL) Discontinu intraocular ed, injection Routine, Intra-op balanced 2020- No PRN, Univers salt irrig 09-15 Starting ity of soln comb1 18:58: 22:06 Wed [place] (BSS PLUS) 00 :51 09/15/20 at [facility] ical ophthalmic 1358, Branch solution Until Sun 500 mL bag 09/15/20 at 1706, Routine, Intra-op carbachoL 2020- No PRN, Univers (MIOSTAT) 09-15 Starting ity o f 0.01 % 18:58: 22:06 Wed [place] intraocular 00 :51 09/15/20 at N[place] dical injection 1358, Branch Until 09/15/20 at 1706, Routine, Intra-op dexamethaso 2020- No PRN, Unive rs ne 09-15 Starting ity of (DECADRON 18:58: 22:06 Wed [place] PHOSPHATE) 00 :51 09/15/20 at [facility] ical injection 1358, Branch Until Sun09/15/20 at 1706, Routine, Intra-op DUOVISC 2020- No PRN, Univers (DUOVISC 09-15 Starting ity of VISCO 18:58: 22:06 [facility] [place] ELASTIC) 3 00 :51 09/15/20 at [facility] ical %-4 %(0.5 1358, Branch mL) 1 % Until Wed (0.55 mL) 09/15/20 at intraocular 1706, injection Routine, Intra-op neomycin-po Yes PRN, Univer s lymyxin-dex 09-15 Starting ity of amethasone 18:57: Wed [place] (MAXITROL) 00 09/15/20 at [facility] ical 3.5 1357, Branch mg/g-10,000 Until unit/g-0.1 Discontinu % ed, ophthalmic Routine, ointment Intra-op neomycin-po 2020- No PRN, Unive rs lymyxin-dex 09-15 Starting ity of amethasone 18:57: 22:06 [facility] (MAXITROL) 00 :51 09/15/20 at [facility] ical 3.5 1357, Branch mg/g-10,000 Until Sun unit/g-0.1 09/15/20 at % 1706, ophthalmic Routine, ointment Intra-op EPINEPHrine Yes PRN, Univer s 1:1,000 (1 09-15 Starting ity o f mg/mL) 18:53: Sun [place] (ADRENALIN) 00 09/15/20 at N[place] dical injection 1353, Branch Until Discontinu ed, Routine, Intra-op EPINEPHrine 2020- No PRN, Unive rs 1:1,000 (1 09-15 Starting ity of mg/mL) 18:53: 22:06 [facility] [place] (ADRENALIN) 00 :51 09/15/20 at N[place] dical injection 1353, Branch Until Sun09/15/20 at 1706, Routine, Intra-op water for Yes PRN, Univers irrigation 09-15 Starting ity o f irrigation 18:50: Sun [place] solution 00 09/15/20 at Medic al 1350, Branch Until Discontinu ed, Routine, Intra-op water for 2020- No PRN, Univers irrigation 09-15 Starting ity of irrigation 18:50: 22:06 [facility] [place] solution 00 :51 09/15/20 at Medic al 1350, Branch Until Sun09/15/20 at 1706, Routine, Intra-op Hyaluronida Yes PRN, Univer s se, Human 09-15 Starting ity of Recomb. 18:47: Sun [place] (HYLENEX) 00 09/15/20 at [facility] mendez injection 1347, Branch Until Discontinu ed, Routine, Intra-op Hyaluronida 2020- No PRN, Unive rs se, Human 09-15 Starting ity o f Recomb. 18:47: 22:06 [facility] [place] (HYLENEX) 00 :51 09/15/20 at Medi mendez injection 1347, Branch Until Sun09/15/20 at 1706, Routine, Intra-op eye block Yes PRN, Univers syringe 11 09-15 Starting ity o f mL 18:45: Wed [place] 00 09/15/20 at [facility] 1345, Branch Until Discontinu ed, Intra-op eye block 2020- No PRN, Univers syringe 11 09-15 Starting ity of mL 18:45: 22:06 Wed [place] 00 :51 09/15/20 at [facility] 1345, Branch Until Sun09/15/20 at [...] 1,000 mL 00 :00 [facility] [place] ONCE, 1 dose, Sun09/15/20 at 1245, Routine, DSU Pre-op mydriatic 2020- No .5mL 0.5 mL, Univ ers #5 09-15 Right Eye, ity of ophthalmic 17:45: 17:39 ONCE, 1 [place] as solution 00 :00 dose, Wed Medica l 0.5 mL 09/15/20 at [place] syringe 1245, Routine, DSU Pre-op lactated 2020- No 1000mL at 42 Unive rs ringers IV 09-15 mL/hr, ity of infusion 17:45: 17:39 1,000 mL, [place] as 1,000 mL 00 :00 [facility], [place] ONCE, 1 dose, Sun09/15/20 at 1245, Routine, DSU Pre-op aspirin 81 Yes 81mg Take 81 mg U nivers mg EC 09-15 by mouth. ity of tablet 15:06: [address] famotidine Yes 20mg Take 20 mg U nivers 20 mg 7-21 by mouth. ity of tablet 15:06: [address] aspirin 81 0 Yes 81mg Take 81 mg U nivers mg EC 7-21 by mouth. ity of tablet 15:06: [address] famotidine 0 Yes 20mg Take 20 mg U nivers 20 mg 7-21 by mouth. ity of tablet 15:06: [address] apixaban 5 Yes TAKE 1 [...] 7-12 TABLET BY l Tablet 20:03: MOUTH [place] [Eliquis] 00 TWICE A DAY LORazepam 2020-0 Yes 0 Memoria 0.5 mg oral 7-12 Refill(s) l tablet 20:03: [place] 00 Carbidopa 2020-0 Yes 1 tab, PO, Me moria 25 MG / 7-12 TID, # 90 l Levodopa 20:03: tab, 3 [place] 100 MG Oral 00 Refill(s), Tablet Pharmacy: [[facility] 25-100] cy #[id number], 175.26, cm, 07/19/20 14:31:00 CDT, Height, 75.909, kg, 07/19/20 14:31:00 CDT, Weight apixaban 5 0 Yes TAKE 1 Memor ia MG Oral 7-12 TABLET BY l Tablet 20:03: MOUTH [place] [Eliquis] 00 TWICE A DAY LORazepam 2020-0 Yes 0 Memoria 0.5 mg oral 7-12 Refill(s) l tablet 20:03: [place] 00 Carbidopa 2020-0 Yes 1 tab, PO, Me moria 25 MG / 7-12 TID, # 90 l Levodopa 20:03: tab, 3 [place] 100 MG Oral 00 Refill(s), Tablet Pharmacy: [Sinemet [facility] 25-100] cy #[id number], 175.26, cm, 07/19/20 14:31:00 CDT, Height, 75.909, kg, 07/19/20 14:31:00 CDT, Weight carbidopa-l 2020-0 Yes 1 tab, PO, [facility] evodopa 7-12 TID, # 90 [facility] - (Sinemet) 00:00: tab, 3 Medica l 25-100 mg 00 Refill(s), Cent er per tablet Pharmacy: [facility] cy #[id number], 175.26, cm, 07/19/20 14:31:00 CDT, Height, 75.909, kg, 07/19/20 14:31:00 CDT, Weight prednisoLON 2020-0 Yes PLEASE SEE [facility] acetate 6-27 ATTACHED [facility] - (PRED 00:00: FOR Medical FORTE) 1 % 00 DETAILED Cente r ophthalmic DIRECTIONS suspension furosemide 2020-0 Yes 80mg Take 80 mg U nivers 80 mg 6-18 by mouth 2 ity of tablet 00:00: (two) [place] 00 times Medical daily. Branch furosemide 2020-0 [...] # 60 l Levodopa 21:52: tab, 3 [place] 100 MG Oral 00 Refill(s), Tablet Pharmacy: [...] by mouth 2 ity of 00:00: (two) [place] 00 times Medical daily. Branch ELIQUIS 5 2020-0 Yes 5mg Take 5 mg Uni vers mg tablet 6-11 by mouth 2 ity of 00:00: (two) [place] 00 times Medical daily. Branch ELIQUIS 5 2020-0 Yes 5mg Take 5 mg Uni vers mg tablet 6-11 by mouth 2 ity of 00:00: (two) [place] 00 times Medical daily. Branch ELIQUIS 5 2020-0 Yes 5mg Take 5 mg Uni vers mg tablet 6-11 by mouth 2 ity of 00:00: (two) [place] 00 times Medical daily. Branch ELIQUIS 5 2020-0 Yes 5mg Take 5 mg Uni vers mg tablet 6-11 by mouth 2 ity of 00:00: (two) [place] 00 times Medical daily. Branch ELIQUIS 5 2020-0 Yes 5mg Take 5 mg Uni vers mg tablet 6-11 by mouth 2 ity of 00:00: (two) [place] 00 times Medical daily. Branch Sotalol 2020-0 Yes 80 mg = 1 Memor ia 5-24 tab, PO, l 20:02: BID, # 60 [place] 00 tab, 0 Refill(s) Sotalol 2020-0 Yes [...] moria 5-24 Daily, 0 l 20:00: Refill(s) [facility] 2018-02 No Notes: Memoria Mineral Oil -24 (Same l Enema 19:58: as: Mineral Oil Enema) [facility] 2018-02 No Notes: Memoria Mineral Oil -24 (Same l Enema 19:58: as: Mineral Oil Enema) [facility] 2018-02 No Notes: Memoria Mineral Oil -24 (Same l Enema 19:58: as: Mineral Oil Enema) naproxen 2018-02 Yes 500 mg = 1 Mem oria 500 mg oral 1-24 tab, PO, l tablet 15:04: BID, X 7 day, # 14 tab, 0 Refill(s), Pharmacy: [facility] #[id number] bisacodyl 2018-02 Yes 10 mg = 1 Mem oria 10 mg 1-24 supp, NM, l rectal 15:04: Daily, PRN Lilly nn suppository 00 Constipati on, # 10 supp, 0 Refill(s), Pharmacy: [facility] #[id number] Docusate 2018-02 Yes 100 mg = 1 Mem oria Sodium 100 1-24 cap, PO, l MG Oral 15:04: BID, # 60 Lilly nn Capsule 00 cap, 0 [Colace] Refill(s), Pharmacy: [facility] #[id number] bisacodyl 5 2018-02 Yes 10 mg = 2 M emoria mg oral 1-24 tab, PO, l enteric 15:04: Daily, PRN Herm ayush coated 00 Constipati tablet on, X 10 day, # 20 tab, 0 Refill(s), Pharmacy: [facility] #[id number] POLYETHYLEN 2018-02 Yes 17 gm, PO, Memoria E GLYCOL 1-24 Daily, PRN l 3350 142 15:04: Constipati Her pinon MG/ML Oral 00 on, # 255 Solution gm, 0 [Miralax] Refill(s), Pharmacy: [facility] #[id number] naproxen 2018-02 Yes 500 mg = 1 Mem oria 500 mg oral 1-24 tab, PO, l tablet 15:04: BID, X 7 [place] 00 day, # 14 tab, 0 Refill(s), Pharmacy: [facility] #[id number] bisacodyl 2018-02 Yes 10 mg = 1 Mem oria 10 mg 1-24 supp, NM, l rectal 15:04: Daily, PRN Lilly nn suppository 00 Constipati on, # 10 supp, 0 Refill(s), Pharmacy: [facility] #[id number] Docusate 2018-02 Yes 100 mg = 1 Mem oria Sodium 100 1-24 cap, PO, l MG Oral 15:04: BID, # 60 Lilly nn Capsule 00 cap, 0 [Colace] Refill(s), Pharmacy: [facility] #[id number] bisacodyl 2018-02 Yes 10 mg = 2 M emoria mg oral 1-24 tab, PO, l enteric 15:04: Daily, PRN Herm ayush coated 00 Constipati tablet on, X 10 day, # 20 tab, 0 Refill(s), Pharmacy: [facility] #[id number] POLYETHYLEN 2018-02 Yes 17 gm, PO, Memoria E GLYCOL 1-24 Daily, PRN l 3350 142 15:04: Constipati Her pinon MG/ML Oral 00 on, # 255 Solution gm, 0 [Miralax] Refill(s), Pharmacy: [facility] #[id number] naproxen 2018-02 Yes 500 mg = 1 Mem oria 500 mg oral 1-24 tab, PO, l tablet 15:04: BID, X 7 [place] 00 day, # 14 tab, 0 Refill(s), Pharmacy: [facility] #[id number] bisacodyl 2018-02 Yes 10 mg = 1 Mem oria 10 mg 1-24 supp, NM, l rectal 15:04: Daily, PRN Lilly nn suppository 00 Constipati on, # 10 supp, 0 Refill(s), Pharmacy: [facility] #[id number] Docusate 2018-02 Yes 100 mg = 1 Mem oria Sodium 100 1-24 cap, PO, l MG Oral 15:04: BID, # 60 Lilly nn Capsule 00 cap, 0 [Colace] Refill(s), Pharmacy: [facility] #[id number] bisacodyl 5 2018-02 Yes 10 mg = 2 M emoria mg oral 1-24 tab, PO, l enteric 15:04: Daily, PRN Herm ayush coated 00 Constipati tablet on, X 10 day, # 20 tab, 0 Refill(s), Pharmacy: [facility] #[id number] POLYETHYLEN 2018-02 Yes 17 gm, PO, Memoria E GLYCOL 1-24 Daily, PRN l 3350 142 15:04: Constipati Her pinon MG/ML Oral 00 on, # 255 Solution gm, 0 [Miralax] Refill(s), Pharmacy: [facility] #[id number] Lactulose 2018-02 No Notes: Memori [...] MG/ML 1-23 (Same l Oral 14:13: as:Chronul [place] Solution 00 ac) Dulcolax 2018-02 No Notes: Memoria Laxative 1-23 (Same As: l 12:41: Dulcolax, [place] 00 Bisco-Lax) Dulcolax 2018-02 No Notes: Memoria Laxative 1-23 (Same As: l 12:41: Dulcolax, [place] 00 Bisco-Lax) Dulcolax 2018-02 No Notes: Memoria [...] e 1-21 Tablet l 19:15: should not [place] 00 be chewed or crushed. (Same as: Protonix) pantoprazol 2018-02 No Notes: Pepe micki e 1-21 Tablet l 19:15: should not [place] 00 be chewed or crushed. (Same as: Protonix) Phenergan 2018-02 No Notes: Memori a 1-20 (Same as: l 00:41: Phenergan) [place] Phenergan 2018-02 No Notes: Memori a 1-20 (Same as: l 00:41: Phenergan) [place] Phenergan 2018-02 No Notes: Memori a 1-20 (Same as: l 00:41: Phenergan) [place] Phenergan 2018-02 No 25 mg, Memori a 1-20 Route: IM, l 00:40: Q6H, [place] 00 Dosing Weight 74.2, kg, PRN Nausea & Vomiting, Start date: 01/14/19 18:40:00 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, Duration: 30 day, Stop date: 02/13/19 18:39:00 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 Phenergan 2018-02 No 25 mg, Memori a 1-20 Route: IM, l 00:40: Q6H, [place] 00 Dosing Weight 74.2, kg, PRN Nausea & Vomiting, Start date: 01/14/19 18:40:00 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, Duration: 30 day, Stop date: 02/13/19 18:39:00 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 Phenergan 2018-02 No 25 mg, Memori a 1-20 Route: IM, l 00:40: Q6H, [place] Dosing Weight 74.2, kg, PRN Nausea & Vomiting, Start date: 01/14/19 18:40:00 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, Duration: 30 day, Stop date: 02/13/19 18:39:00 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 Dulcolax 2018-02 No Notes: Memoria Laxative 1-19 (Same As: l 16:12: Dulcolax, [place] 00 Bisco-Lax) Dulcolax 2018-02 No Notes: Memoria Laxative 1-19 (Same As: l 16:12: Dulcolax, [place] 00 Bisco-Lax) Dulcolax 2018-02 No Notes: Memoria [...] l / 20:49: Duoneb) [place] Ipratropium 00 [place] 0.167 MG/ML Inhalant Solution metoprolol 2018-02 No Notes: Memor ia extended 1-18 (Same as: l release 20:49: Toprol XL) Herm ayush 00 May split tab, but do not crush. Albuterol 2018-02 No Notes: Memori a 0.833 MG/ML 1-18 (Same as: l / 20:49: Duoneb) [place] Ipratropium 00 [place] 0.167 MG/ML Inhalant Solution metoprolol 2018-02 No Notes: Memor ia extended 1-18 (Same as: l release 20:49: Toprol XL) Herm ayush 00 May split tab, but do not crush. Albuterol 2018-02 No Notes: Memori a 0.833 MG/ML -18 (Same as: l / 20:49: Duoneb) [place] Ipratropium 00 [place] 0.167 MG/ML Inhalant Solution Docusate 2018-02 No 100 mg = 1 Mem oria Sodium 100 1-18 cap, PO, l MG Oral 16:51: BID, 0 [place] Capsule 00 Refill(s) Famotidine 2018-02 Yes 20 mg = 1 Me moria 20 MG Oral 1-18 tab, PO, l Tablet 16:51: BID, 0 [place] 00 Refill(s) naproxen 2018-02 No 500 mg = 2 Mem oria 250 mg oral 1-18 tab, PO, l tablet 16:51: BID, 0 [place] 00 Refill(s) Docusate 2018-02 No 100 mg = 1 Mem oria Sodium 100 1-18 cap, PO, l MG Oral 16:51: BID, 0 [place] Capsule 00 Refill(s) Famotidine 2018-02 Yes 20 mg = 1 Me moria 20 MG Oral 1-18 tab, PO, l Tablet 16:51: BID, 0 [place] 00 Refill(s) naproxen 2018-02 No 500 mg [...] Laxative -18 (Same As: l 15:00: Dulcolax, [place] 00 Correctol) (Do Not Crush) "Do Not Crush" Miralax 2018-02 No Notes: Memoria 1-18 Dissolve l 15:00: in 8 oz of [place] 00 water or juice. (Same as: Miralax) Dulcolax 2018-02 No Notes: Memoria Laxative 1-18 (Same As: l 15:00: Dulcolax, [place] 00 Correctol) (Do Not Crush) "Do Not Crush" Miralax 2018-02 No Notes: Memoria 1-18 Dissolve l 15:00: in 8 oz of [place] 00 water or juice. (Same as: Miralax) Dulcolax 2018-02 No Notes: Memoria Laxative 1-18 (Same As: l 15:00: Dulcolax, [place] 00 Correctol) (Do Not Crush) "Do Not Crush" Miralax 2018-02 No Notes: Memoria 1-18 Dissolve l 15:00: in 8 oz of [place] 00 water or juice. (Same as: Miralax) Naproxen 2018-02 No Notes: Memoria 1-17 (Same as: l 16:38: Naprosyn) [place] Take with food. Naproxen 2018-02 No Notes: Memoria 1-17 (Same as: l 16:38: Naprosyn) [place] Take with food. Naproxen 2018-02 No Notes: Memoria 1-17 (Same as: l 16:38: Naprosyn) [place] 00 Take with food. Famotidine 2018-02 No [...] micki n 1-16 (Same l 07:00: as:Levaqui [place] 00 n) Docusate 2018-02 No Notes: Memoria Sodium 100 1-15 (Same as: l MG Oral 23:00: Colace) [place] Capsule 00 (Do Not Crush) Docusate 2018-02 No Notes: Memoria Sodium 100 1-15 (Same as: l MG Oral 23:00: Colace) [place] Capsule 00 (Do Not Crush) Docusate 2018-02 No Notes: Memoria Sodium 100 1-15 (Same as: l MG Oral 23:00: Colace) [place] Capsule 00 (Do Not Crush) Acetaminoph 2018-02 No Notes: Do M emoria en 325 MG / 1-15 not exceed l Hydrocodone 19:50: 4gm/day of [place] Bitartrate 00 acetaminop 10 MG Oral hen. Tablet (Same as: [[place] 10/325] 325/10) Acetaminoph 2018-02 No Notes: Do M emoria en 325 MG / 1-15 not exceed l Hydrocodone 19:50: 4gm/day of [place] Bitartrate 00 acetaminop 10 MG Oral hen. Tablet (Same as: [[place] 10/325] 325/10) Acetaminoph 2018-02 No Notes: Do M emoria en 325 MG / 1-15 not exceed l Hydrocodone 19:50: 4gm/day of [place] Bitartrate 00 acetaminop 10 MG Oral hen. Tablet (Same as: [[place] 10/325] 325/10) clopidogrel 2018-02 No Notes: Pepe micki 1-15 (Same As: l 15:02: Plavix) [place] 00 Flomax 2018-02 No Notes: Memoria 1-15 (Same As: l 15:02: Flomax) [place] 00 "Do Not Crush" clopidogrel 2018-02 No Notes: Pepe micki 1-15 (Same As: l 15:02: Plavix) [place] 00 Flomax 2018-02 No Notes: Memoria 1-15 (Same As: l 15:02: Flomax) [place] 00 "Do Not Crush" clopidogrel 2018-02 No Notes: Pepe micki 1-15 (Same As: l 15:02: Plavix) [place] 00 Flomax 2018-02 No Notes: Memoria 1-15 (Same As: l 15:02: Flomax) [place] 00 "Do Not Crush" Morphine 2019- No 2 mg, 1 Memori a 1-15 mL, Route: l 11:04: IVP, Drug [place] form: SOLN, Q4H, Dosing Weight 74.2, kg, PRN Pain Score 7-10, Start date: 01/10/19 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, Duration: 30 day, Stop date: 02/09/19 5:03:00 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, 0 Morphine 2019- No 2 mg, 1 Memori a 1-15 mL, Route: l 11:04: IVP, Drug [place] form: SOLN, Q4H, Dosing Weight 74.2, kg, PRN Pain Score 7-10, Start date: 01/10/19 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, Duration: 30 day, Stop date: 02/09/19 5:03:00 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, 0 Morphine 2018- No 2 mg, 1 Memori a 1-15 mL, Route: l 11:04: IVP, Drug Philip 00 form: SOLN, Q4H, Dosing Weight 74.2, kg, PRN Pain Score 7-10, Start date: 01/10/19 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, 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: 30 day, Stop date: 02/09/19 5:03:00 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, 0 Streptococc 2019- No Notes: Pepe imcki us 1-15 Shake well l pneumoniae 09:35: prior to Her pinon serotype 1 51 use (Same capsular as: antigen Prevnar diphtheria 13) [id number] protein conjugate vaccine / Streptococc us pneumoniae serotype 14 capsular antigen diphtheria [id number] protein conjugate vaccine / Streptococc us pneumoniae serotype 18C capsular antigen d Streptococc 2019 No Notes: Pepe micki us 1-15 Shake well l pneumoniae 09:35: prior to Her pinon serotype 1 51 use (Same capsular as: antigen Prevnar diphtheria 13) [id number] protein conjugate vaccine / Streptococc us pneumoniae serotype 14 capsular antigen diphtheria [id number] protein conjugate vaccine / Streptococc us pneumoniae serotype 18C capsular antigen d Streptococc 2019 No Notes: Pepe micki us 1-15 Shake well l pneumoniae 09:35: prior to Her pinon serotype 1 51 use (Same capsular as: antigen Prevnar diphtheria 13) [id number] protein conjugate vaccine / Streptococc us pneumoniae serotype 14 capsular antigen diphtheria [id number] protein conjugate vaccine / Streptococc us pneumoniae [...] tab, PO, l tablet 09:19: Daily, # [place] 00 30 tab, 0 Refill(s) atorvastati 2018-02 [...] tab, PO, l tablet 09:19: Daily, # [place] 00 30 tab, 0 Refill(s) atorvastati 2018-02 [...] 0.833 MG/ML 1-15 (Same as: 09:00: Duoneb) [place] Ipratropium 00 [place] 0.167 MG/ML Inhalant Solution Albuterol 2018-02 No Notes: Memori a 0.833 MG/ML 1-15 (Same as: l 09:00: Duoneb) [place] Ipratropium 00 [place] 0.167 MG/ML Inhalant Solution Albuterol 2018-02 No Notes: Memori a 0.833 MG/ML 1-15 (Same as: l 09:00: Duoneb) [place] Ipratropium 00 [place] 0.167 MG/ML Inhalant Solution Ondansetron 2018-02 No [...] emoria 15 Rate: 60 l 08:33: ml/hr, [place] 00 Infuse over: 16.7 hr, Route: IV, Dosing Weight 74.2 kg, Total Volume: 1,000, Start date: 01/10/19 2:33:00 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, Duration: 1 doses or times, Stop date: 01/10/19 19:14:00 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, 1.91, m2, 0 NS 1,000 mL 2018-02 No 1,000 mL, M emoria 03-12 Rate: 60 l 08:33: ml/hr, [place] 00 Infuse over: 16.7 hr, Route: IV, Dosing Weight 74.2 kg, Total Volume: 1,000, Start date: 01/10/19 2:33:00 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, Duration: 1 doses or times, Stop date: 01/10/19 19:14:00 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, 1.91, m2, 0 NS 1,000 mL 2018-02 No 1,000 mL, M emoria 03-12 Rate: 60 l 08:33: ml/hr, Philip 00 Infuse over: 16.7 hr, Route: IV, Dosing Weight 74.2 kg, Total Volume: 1,000, Start date: 01/10/19 2:33:00 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, Duration: 1 doses or times, Stop date: 01/10/19 19:14:00 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, 1.91, m2, 0 Morphine 2018-02 No Notes: Memoria -15 (Same l 07:20: as:MORPhin [place] 00 e Sulfate) Zofran 2018-02 No Notes: Memoria -15 (Same as: l 07:20: Zofran) Philip 00 MEDICATION WASTE Product Size: 4 mg Product Wasted: ___ mg Morphine 2018-02 No Notes: Memoria 1-15 (Same l 07:20: as:MORPhin [place] 00 e Sulfate) Zofran 2018-02 No Notes: Memoria 1-15 (Same as: l 07:20: Zofran) Philip 00 MEDICATION WASTE Product Size: 4 mg Product Wasted: ___ mg Morphine 2018-02 No Notes: Memoria 1-15 (Same l 07:20: as:MORPhin [place] 00 e Sulfate) Zofran 2018-02 No Notes: Memoria 1-15 (Same as: l 07:20: Zofran) [place] 00 MEDICATION WASTE Product Size: 4 mg Product Wasted: ___ mg Levaquin 2018-02 No Notes: Memoria 1-15 (Same l 07:17: as:Levaqui [place] 00 n) Levaquin 2018-02 No Notes: Memoria 1-15 (Same l 07:17: as:Levaqui [place] 00 n) Levaquin 2018-02 No Notes: Memoria [...] Memoria 1-15 (Same as: l 04:21: Zofran) [place] 00 MEDICATION WASTE Product Size: 4 mg Product Wasted: ___ mg Saline 2018-02 No Notes: Memoria Flush 0.9% 1-15 (Same as: l 04:20: BD [place] 00 Posiflush) Sodium 2018-02 No 1,000 mL, Memori a Chloride 1-15 2,000 l 0.9% 04:20: ml/hr, [place] (Bolus) IV 00 Infuse Over: 0.5 hr, Route: IV, 1,000, Drug form: INJ, ONCE, Priority: STAT, Dosing Weight 74.2 kg, Start date: 01/09/19 22:20:00 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, Stop date: 01/09/19 22:20:00 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, 0 Saline 2018-02 No Notes: Memoria Flush 0.9% 1-15 (Same as: l 04:20: BD [place] 00 Posiflush) Sodium 2018-02 No 1,000 mL, Memori a Chloride 1-15 2,000 l 0.9% 04:20: ml/hr, [place] (Bolus) IV 00 Infuse Over: 0.5 hr, Route: IV, 1,000, Drug form: INJ, ONCE, Priority: STAT, Dosing Weight 74.2 kg, Start date: 01/09/19 22:20:00 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, Stop date: 01/09/19 22:20:00 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, 0 Saline 2018-02 No Notes: Memoria Flush 0.9% 1-15 (Same as: l 04:20: BD [place] 00 Posiflush) Sodium 2018-02 No 1,000 mL, Memori a Chloride 1-15 2,000 l 0.9% 04:20: ml/hr, Philip (Bolus) IV 00 Infuse Over: 0.5 hr, Route: IV, 1,000, Drug form: INJ, ONCE, Priority: STAT, Dosing Weight 74.2 kg, Start date: 01/09/19 22:20:00 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, Stop date: 01/09/19 22:20:00 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, 0 metoprolol 2018-02 Yes 50mg Take 50 [...] daily. n 1.1 % 00 of scalp [place] dental teeth with cream cream and spit [...] kg Systolic blood 2020-12-01 15:50:00 147 mm[facility]Hg[facility] 2020-12-01 15:50:00 71 mm[Hg] [facility] Respiratory rate 2020-12-01 15:50:00 18 /min [facility] Oxygen saturation in 2020-12-01 15:50:00 100 /min [facility] Arterial blood by [facility] Pulse oximetry Branch Body temperature 2020-12-01 15:45:00 36.22 Jessica [facility] Heart rate 2020-12-01 13:51:00 68 /min [facility] Body height 2020-11-18 14:58:00 175.3 cm [facility] [place] [facility] Body weight 2020-11-18 14:58:00 76.2 kg [facility] BMI 2020-11-18 14:58:00 24.80 kg/m2 [facility] Systolic blood 2020-12-01 15:50:00 147 mm[Hg] [facility] Diastolic blood 2020-12-01 15:50:00 71 mm[Hg] [facility] Respiratory rate 2020-12-01 15:50:00 18 /min [facility] Oxygen saturation in 2020-12-01 15:50:00 100 /min [facility] Arterial blood by [place] [facility] Pulse oximetry Branch Body temperature 2020-12-01 15:45:00 36.22 Jessica [facility] Heart rate 2020-12-01 13:51:00 68 /min [facility] Body height 2020-11-18 14:58:00 175.3 cm [facility] Body weight 2020-11-18 14:58:00 76.2 kg [facility] BMI 2020-11-18 14:58:00 24.80 kg/m2 [facility] HEIGHT 2020-09-28 12:51:00 175.3 cm WEIGHT 2020-09-28 12:51:00 74.844 kg WEIGHT 2020-09-28 06:00:00 74.9 kg WEIGHT 2020-09-27 06:00:00 72.5 kg HEIGHT 2020-09-26 03:52:00 175.3 cm WEIGHT 2020-09-26 03:52:00 75 kg Diastolic blood 2020-09-15 19:30:00 75 mm[Hg] [facility] [place] [facility] Heart rate 2020-09-15 19:30:00 59 /min [facility] Oxygen saturation in 2020-09-15 19:30:00 98 /min [facility] Arterial blood by [place] [facility] Pulse oximetry Branch Systolic blood 2020-09-15 19:30:00 146 mm[Hg] [facility] [place] [facility] Respiratory rate 2020-09-15 19:21:00 24 /min [facility] [place] [facility] Body temperature 2020-09-15 19:15:00 36.17 Jessica [facility] Body height 2020-09-06 18:10:00 175.3 cm [facility] Body weight 2020-09-06 18:10:00 76.3 kg [facility] [place] [facility] BMI 2020-09-06 18:10:00 24.83 kg/m2 [facility] Diastolic blood 2020-09-15 19:30:00 75 mm[Hg] [facility] Heart rate 2020-09-15 19:30:00 59 /min [facility] Oxygen saturation in 2020-09-15 19:30:00 98 /min [facility] Arterial blood by [place] [facility] Pulse oximetry Branch Systolic blood 2020-09-15 19:30:00 146 mm[Hg] [facility] Respiratory rate 2020-09-15 19:21:00 24 /min [facility] Body temperature 2020-09-15 19:15:00 36.17 Jessica [facility] Body height 2020-09-06 18:10:00 175.3 cm [facility] Body weight 2020-09-06 18:10:00 76.3 kg [facility] BMI 2020-09-06 18:10:00 24.83 kg/m2 [facility] Systolic blood 2020-09-15 19:30:00 146 mm[Hg] [facility] Diastolic blood 2020-09-15 19:30:00 75 mm[Hg] [facility] Heart rate 2020-09-15 19:30:00 59 /min [facility] Oxygen saturation in 2020-09-15 19:30:00 98 /min [facility] Arterial blood by [place] [facility] Pulse oximetry Branch Respiratory rate 2020-09-15 19:21:00 24 /min [facility] [place] [facility] Body temperature 2020-09-15 19:15:00 36.17 Jessica [facility] Body height 2020-09-06 18:10:00 175.3 cm [facility] [place] [facility] [place] Body weight 2020-09-06 18:10:00 76.3 kg [facility]i [facility] BMI 2020-09-06 18:10:00 24.83 kg/m2 [facility] [place] [facility] [place] Systolic blood 2020-09-15 19:30:00 146 mm[Hg] Univer sity of [facility] Diastolic blood 2020-09-15 19:30:00 75 mm[Hg] Unive rsity of [facility] Heart rate 2020-09-15 19:30:00 59 /min [facility]i [facility] Oxygen saturation in 2020-09-15 19:30:00 98 /min [facility] Arterial blood by [facility] Pulse oximetry Branch Respiratory rate 2020-09-15 19:21:00 24 /min [facility] Body temperature 2020-09-15 19:15:00 36.17 Jessica [facility] Body height 2020-09-06 18:10:00 175.3 cm Universi ty [facility] Body weight 2020-09-06 18:10:00 76.3 kg Universi [facility] BMI 2020-09-06 18:10:00 24.83 kg/m2 [facility] Systolic blood 2020-09-29 11:17:00 132 mm[Hg] [facility] Diastolic blood 2020-09-29 11:17:00 61 mm[Hg] [facility] Heart rate 2020-09-29 11:17:00 78 /min [facility] Body temperature 2020-09-29 11:17:[address] [facility] Respiratory rate 2020-09-29 11:17:00 20 /min [facility] Oxygen saturation in 2020-09-29 11:17:00 97 /min [facility] - Arterial blood by [facility] nter Pulse oximetry Body height 2020-09-28 12:51:[address] [facility] St L [facility] Body weight 2020-09-28 12:51:[address] [facility] St L [facility] BMI 2020-09-28 12:51:00 24.37 kg/m2 [facility] Systolic (mm Hg) 2020-09-06 19:00:00 Pepe rial [place] Diastolic (mm Hg) 2020-09-06 19:00:00 Mem orial [place] Heart Rate 2020-09-06 19:00:00 [facility] [place] Respitory Rate 2020-09-06 19:00:00 Memori al [place] Systolic (mm Hg) 2020-08-09 20:36:00 Pepe rial [place] Diastolic (mm Hg) 2020-08-09 20:36:00 Mem orial [place] Heart Rate 2020-08-09 20:36:00 [facility] [place] Respitory Rate 2020-08-09 20:36:00 Memori al [place] Systolic (mm Hg) 2020-07-19 19:31:00 Pepe rial [place] Diastolic (mm Hg) 2020-07-19 19:31:00 Mem orial [place] Heart Rate 2020-07-19 19:31:00 Memorial [place] Respitory Rate 2020-07-19 19:31:00 Memori al [place] Height 2020-07-19 19:31:00 175.26 cm [facility] [place] Weight 2020-07-19 19:31:00 [facility] [place] BMI Calculated 2020-07-19 19:31:00 Memori al [place] Temperature Oral (F) 2019-01-19 21:26:00 97.6 F [facility] [place] Heart Rate 2019-01-19 21:26:00 Memorial [place] Respitory Rate 2019-01-19 21:26:00 Memori al [place] Systolic (mm Hg) 2019-01-19 21:26:00 Pepe rial [place] Diastolic (mm Hg) 2019-01-19 21:26:00 Mem orial [place] Temperature Oral (F) 2019-01-19 17:23:00 97.9 F Memorial [place] Heart Rate 2019-01-19 17:23:00 Memorial [place] Respitory Rate 2019-01-19 17:23:00 Memori al [place] Systolic (mm Hg) 2019-01-19 17:23:00 Pepe rial [place] Diastolic (mm Hg) 2019-01-19 17:23:00 Mem orial [place] Temperature Oral (F) 2019-01-19 13:47:00 97.6 F [facility] Philip Heart Rate 2019-01-19 13:47:00 Beba [place] Respitory Rate 2019-01-19 13:47:00 Ada Batemanann Systolic (mm Hg) 2019-01-19 13:47:00 Pepe Palacios Diastolic (mm Hg) 2019-01-19 13:47:00 Mem destin Hendersonann Height 2019-01-10 12:17:00 170.18 cm [facility] [place] Weight 2019-01-10 03:42:00 [facility] Procedures Procedure Date / Time Performing Source Performed Clinician PHACOEMULSIFICATION OF 2020-12-01 Robin Wolf [facility] CATARACT WITH INTRAOCULAR 15:03:00 Medica l Branch LENS IMPLANT ASSIGNMENT OF BENEFITS 2020-11-29 Doctor Unassigned, [facility] 20:50:21 [place] [facility] POCT-GLUCOSE METER 2020-09-29 Hasolimpia, Zaheer Ali [facility] - 11:24:00 [facility] POCT-GLUCOSE METER 2020-09-29 Hasan, Zaheer Ali [facility] - 07:37:00 [facility] BASIC METABOLIC PANEL (7) 2020-09-29 Jessica, Ramesh [facility] - 05:02:00 [facility] CBC (HEMOGRAM ONLY) 2020-09-29 Jessica, Ramesh [facility] - 05:02:00 [facility] MAGNESIUM 2020-09-29 Jessica, Ramesh [facility] - 05:02:00 [facility] POCT-GLUCOSE METER 2020-09-28 Hasolimpia, Zaheer Ali [facility] - 22:29:00 [facility] US ABDOMEN LIMITED 2020-09-[address] [facility] - 15:36:00 [facility] APTT 2020-09-28 Jessica, Ramesh [facility] - 10:58:00 [facility] POCT-GLUCOSE METER 2020-09-28 Hasan, Zaheer Ali [facility] - 07:47:00 [facility] BASIC METABOLIC PANEL (7) 2020-09-28 Jessica, Ramesh [facility] - 06:37:00 [facility] CBC (HEMOGRAM ONLY) 2020-09-28 Jessica, Ramesh [facility] - 06:37:00 [facility] MAGNESIUM 2020-09-28 [facility] 06:37:00 [facility] APTT 2020-09-28 Jessica, Ramesh [facility] - 00:27:00 [facility] POCT-GLUCOSE METER 2020-09-27 Hasolimpia, Zaheer Ali [facility] - 16:39:00 [facility] POCT-GLUCOSE METER 2020-09-27 Hasolimpia, Zaheer Ali [facility] - 11:16:00 [facility] 2D ECHO W/ DOPPLER 2020-09-[address] [facility] - (CW/PW/COLOR) 09:45:35 [facility] POCT-GLUCOSE METER 2020-09-27 Hasolimpia, Zaheerallie Smith [facility] - 08:43:00 [facility] SARS-COV2/RT-PCR (SLHS & REF 2020-09-27 [facility] LABS) 04:13:00 [facility] BASIC METABOLIC PANEL (7) 2020-09-27 [facility] - 04:13:00 [facility] CBC (HEMOGRAM ONLY) 2020-09-27 Jessica, [facility] - 04:13:00 [facility] MAGNESIUM 2020-09-27 [facility] - 04:13:00 [facility] IRON, TIBC, % SAT. (WITHOUT 2020-09-27 Diana, Zaheer Ali [facility] - FERRITIN) 04:13:00 [facility] FERRITIN 2020-09-27 Diana, Zaheer Ali [facility] - 04:13:00 [facility] VITAMIN B12 AND FOLATE 2020-09-27 Diana, Zaheer Ali [facility] - 04:13:00 [facility] POCT-GLUCOSE METER 2020-09-26 Diana Zaheer Ali [facility] - 23:06:00 [facility] APTT 2020-09-26 [facility] 12:26:00 [facility] ABORH, MANUAL 2020-09-26 Abril Lucero [facility] 06:46:00 [facility] XR CHEST 1 VIEW PORTABLE / 2020-09-26 Jorje Covarrubias [facility]DO [facility] - BEDSIDE 05:40:00 [facility] COMPREHENSIVE METABOLIC PANEL 2020-09-26 SatishLam [address] [facility] - 04:29:00 [facility] HEMOGLOBIN A1C 2020-09-[address] [facility] - 04:29:00 [facility] HIGH SENSITIVITY TROPONIN I 2020-09-26 Satish, Jorje [facility] - 04:29:00 [facility] LIPID PANEL 2020-09-26 [facility], Jorje [facility] - 04:29:00 [facility] CBC W/PLT COUNT & AUTO 2020-09-26 [facility] - DIFFERENTIAL 04:29:00 [facility] B-TYPE NATRIURETIC FACTOR 2020-09-26 [facility] Joyner - (BNP) 04:29:00 [facility] Center TYPE AND SCREEN, AUTOMATED 2020-09-26 [facility]ishJorje [facility] - 04:29:00 [facility] PROTHROMBIN TIME/INR 2020-09-26 [facility] - 04:28:00 [facility] Center APTT 2020-09-26 [facility] - 04:28:00 [facility] Center ECG 12-LEAD 2020-09-26 Unknown, Hl7 Doctor VALDO [facility] - 03:44:53 [facility] PHACOEMULSIFICATION OF 2020-09-15 Robin Wolf [facility] CATARACT WITH INTRAOCULAR 18:32:00 Medica l Branch LENS IMPLANT CBC WITH DIFF 2020-09-13 Robin Wolf [facility] 19:46:00 Medical Branch COVID-19 (ID NOW RAPID 2020-09-13 Robin Wolf [facility] TESTING) 19:40:00 Medical Branch ASSIGNMENT OF BENEFITS 2020-09-13 Doctor Unassigned, [facility] 19:32:02 [place] [facility] Plan of Care Planned Activity [...] Clinicians Facility Department ID 2020-12-27 Outpatient KIRK [facility] OPH [id number] Univers 19:23:53 [facility] 2020-12-27 Outpatient Angi WOLF [facility] OPH [id number] Univers 09:11:23 [facility] 2020-09-26 Inpatient ER ORDOÑEZ-CAM [facility] Cardiology [id number] [facility] 03:36:00 FRANKY MANDUJANO 2020-12-08 2020-12-08 Outpatient J LUIS TANNER [id number] Memoria 14:30:00 14:30:00 04 kumar Palacios 2020-12-07 2020-12-07 Outpatient CIRO TANNER [id number] Memoria 10:45:00 10:45:00 03 kumar Palacios 2020-12-01 2020-12-01 [facility] [id number] Univers 08:45:00 11:16:00 Encounter Robin Langford [id number] [id number] [id number] [facility] 020 Branch 2020-12-01 2020-12-01 [facility] [id number] Univers 10:08:00 10:50:00 Robin Langford [id number] [id number] [id number] [facility] 020 Branch 2020-11-29 2020-11-29 Laboratory Only, Adc Test [facility] 1.2.840. [id number] Univers 15:49:32 16:04:32 Only Robin Wolf [id number] 0 [id number] [id number] [facility] 353 Branch 2020-11-29 2020-11-29 Outpatient R [facility] [id number] Univers 15:15:00 15:15:00 [id number] ity of [facility] 2020-11-29 2020-11-29 Outpatient R [facility] [id number] Univers 15:15:00 15:15:00 ity of [facility] 2020-11-29 2020-11-29 Orders Doctor ASHLEY [id number] Univers 00:00:00 00:00:00 Only Unassigned, [place] [id number] ity of [place] [facility] [id number] Hernán as [id number] [facility] 009 Branch 2020-11-09 2020-11-09 Outpatient R [facility] [id number] Univers 12:00:00 12:00:00 [id number] ity of [facility] 2020-09-26 2020-09-[address] [facility] [id number] [facility] 00:00:00 23:59:00 Elle 2020-09-24 2020-09-24 Outpatient STLMLC STLMLC [id number] [facility] 00:00:00 00:00:00 Mauricio Rip Zana kumar Outpati ent Clinics 2020-09-15 2020-09-15 Surgery [facility] [id number] 14:11:00 14:51:00 [place] [id number] [place] [id number] Surgical [id number] [place] 020 2020-09-15 2020-09-15 Surgery [facility] [id number] Univers 14:11:00 14:51:00 Robin A Primitivo [id number] [id number] [id number] [facility] 020 [place] 2020-09-15 2020-09-15 [facility] [id number] 12:25:00 14:50:00 Encounter Robin Langford [id number] [place] [id number] Surgical [id number] [place] [address] 2020-09-15 2020-09-15 [facility] [id number] Univers 12:25:00 14:50:00 Encounter Robin Langford [id number] [id number] [id number] [address] 2020-09-13 2020-09-13 Outpatient R [facility] [id number] Univers 15:15:00 15:15:00 [id number] ity of [facility] 2020-09-13 2020-09-13 Institutional Nutrition Consultant Sharona Pretty Lab Main [facility] 1.2.8 [id number] Univers 14:29:04 14:44:04 Visit Robin Wolf [id number] 0 [id number] [id number] [address] 2020-09-13 2020-09-13 Institutional Nutrition Consultant Sharona Pretty [facility] [id number] 14:29:04 14:44:04 Visit Lab Main [place] [id number] [place] [id number] Professio [id number] [address] 2020-09-13 2020-09-13 Laboratory Only, [facility] Test [facility] 1.2.840. [id number] Univers 14:17:45 14:32:45 Only Robin Wolf [id number] 0 ity of [place] 4.2.7.2.686 [facility] [id number] [address] 2020-09-13 2020-09-13 Laboratory Only, [facility] [id number] 14:17:45 14:32:45 Only Test [place] [id number] [place] [id number] [place] [id number] [facility] 2020-09-13 2020-09-13 Outpatient Angi WOLF [facility] [id number] Univers 14:00:00 14:00:00 ROBIN [facility] 2020-09-13 2020-09-13 Orders Doctor GABI [id number] Univers 00:00:00 00:00:00 Only Unassigned, [place] [id number] ity of [place] [facility] [id number] [place]án [id number] [address] 2020-09-13 2020-09-13 Orders Doctor ASHLEY [id number] 00:00:00 00:00:00 Only Unassigned, ML [id number] [place] [facility] [id number] [id number] 2020-09-06 2020-09-07 Outpatient nullFlavo MNA [id number] Memoria 19:00:00 04:59:59 r Neurology 02 l Adakezia Palacios 2020-08-20 2020-08-20 Outpatient Angi WOLF [facility] [id number] Univers 15:45:00 15:45:00 ROBIN michelle [facility] 2020-08-11 2020-08-11 Outpatient [facility]MLC [facility] [id number] [facility] 2020-08-09 2020-08-10 Outpatient nullFlavo MNA [id number] Memoria 20:00:00 04:59:59 r Neurology 01 l Ada [place] 2020-08-03 2020-08-03 Outpatient STLMLC [facility] [id number] [facility] 2020-07-28 2020-07-28 Outpatient STLMLC [facility]ML[facility] [id number] [facility] 2020-07-19 2020-07-20 Outpatient nullFlavo MNA [id number] Memoria 19:30:00 04:59:59 r Neurology 00 l Ada [place] 2020-07-13 2020-07-13 Outpatient [facility] STLC [id number] [facility] 2020-07-05 2020-07-05 Outpatient [facility] [id number] [facility] 2020-06-29 2020-06-29 Outpatient [facility]C [id number] [facility] 2020-06-25 2020-06-25 Outpatient [facility] STLC [id number] [facility] 2020-06-24 2020-06-24 Outpatient [facility] STLC [id number] [facility] 2019-01-10 2019-01-20 Inpatient nullFlavo [facility] [id number] Memoria 03:18:46 00:08:00 r Philip 00 l [place] [facility] 2019-01-10 2019-01-10 Inpatient E [facility] MED 7500 [facility] 15:16:00 01:33:00 Results Test Description Test Time Test Comments Results Result Comments Source POC-Glucose meter 2020-09-29 11:42:00 Test Item Value Reference Range Interpretation Comme nts POC-Glucose Meter (test code = 106 mg/dL 70-110 : TESTED AT [facility] [address] [facility] 1538) [facility], [address] 30: Sas Clinical Programmer/Techni jenifer ID = [id number] for ISIAH EM Lab Interpretation (test code = Normal 12905-0) [facility] [id number] 11:42:00 Test Item Value Reference Range Interpretation Comments POC-GLUCOSE METER 106 mg/dL 70-110 : [facility] (BEAKER[facility] (test code = AUDREY Whitley [facility], 1538) [address]: Sas Clinical Programmer/Techni jenifer ID = [id number] for ISIAH COLLINS POCT-GLUCOSE [id number] 07:59:00 Test Item Value Reference Range Interpretation Comments POC-GLUCOSE METER 98 mg/dL 70-110 : TESTED A T [facility] 6720 (BEAKER) (test code = AUDREY Whitley [facility], 1538) [address]: Sas Clinical Programmer/Techni jenifer ID = [id number] for ISIAH MANRIQUEZ [id number] 06:20:00 Test Item Value Reference Range Interpretation Comments Magnesium (test code = 2.1 mg/dL 1.6-2.6 82302-4) GRABIEL (test code = GRABIEL) Sas Clinical Programmer ID - BS Lab Interpretation (test Normal code = 14175-2) [facility] [id number] 06:20:00 Test Item Value Reference Range Interpretation [...] Calcium (test code = 9.4 mg/dL 8.4-10.2 74288-8) EGFR (test code = 93 mL/min/1.73 [place] [address]-8) NOT ACCURATE CREATININE CLEARANCE IN PREDICTING GLOMERULAR FILTRATION RATE . ESTIMATED GFR I S NOT APPLICABLE FOR DIALYSIS PATIENTS. GRABIEL (test code = GRABIEL) Sas Clinical Programmer ID - BS Lab Interpretation Abnormal (test code = 32281-6) [facility] [id number] 06:20:00 Test Item Value Reference Range Interpretation [...] S NOT APPLICABLE FOR DIALYSIS PATIEN TS. Sas Clinical Programmer ID - [id number] 06:20:00 Test Item Value Reference Range Interpretation Comments MAGNESIUM (BEAKER) (test code = 2.1 mg/dL 1.6-2.6 627) Sas Clinical Programmer ID - BSCBC (Hemogram only)2020-09-29 05:40:00 Test Item Value Reference Range Interpretation Comments WBC (test code = 6690-2) 3.9 See_Comment [A utomated message] The system [employer] generated this result transmitted ref erence range: 3.5 - 10 .5 K/L. The refe rence range was not u sed to interpret this result as normal/abnor mal. RBC (test code = 789-8) 4.16 See_Comment L [Au tomated message] The system [employer] generated this result transmitted ref erence range: 4.63 - 6 .08 M/L. The refe rence range was not u sed to interpret this result as normal/abnor mal. MCHC (test code = 786-4) 31.3 See_Comment L [A utomated message] The system [employer] generated this result transmitted ref erence range: [...] See_Comment [Aut omated message] 777-3) The system [employer] generated this result transmitted ref erence range: 150 - 45 0 K/CU MM. The referen ce range was not u sed to interpret this result as normal/abnor mal. MPV (test code = 10.4 fL 9.4-12.4 22993-2) nRBC (test code = 413) 0 See_Comment [Aut omated message] The system [employer] generated this result transmitted ref erence range: 0 - 0 /1 00 WBC. The refere nce range was not u sed to interpret this result as normal/abnor mal. Lab Interpretation (test Abnormal code = 62078-8) [facility] (HEMOGRAM ONLY)2020-09-29 05:40:00 Test Item Value Reference [...] 0-0 (BEAKER) (test code = 413) POCT-GLUCOSE [id number] 22:41:00 Test Item Value Reference Range Interpretation Comments POC-GLUCOSE METER 97 mg/dL 70-110 : TESTED A T [facility] 6720 (BEAKER) (test code = AUDREY [place], 1538) [address]: Sas Clinical Programmer/Techni jenifer ID = [id number] for Stam per, [place] U/S, ABDOMINAL, [id number] 17:39:00Abdomen limited area? Add comment if clarification is needed.->Gall BladderReason for exam:->epigastric pain [facility] 1935 Sex: MFINAL [...] Alvarez Verified Date/Time: 09/28/2020 17:39:04 US abdomen [id number] 17:39:00Interface, External Ris In - 09/28/2020 5:44 [...] by: NAYELY ALVAREZ MD on 09/28/2020 05:39 [facility] 11:24:00 Test Item Value Reference Range Interpretation Comments PTT (test code = 78.0 See_Comment H [Automated message] 57932-5) The system [employer] generated this result transmitted ref erence range: 22.5 - 3 6.0 seconds. The reference range was not used to int erpret this result as normal/abnormal . Lab Interpretation (test Abnormal code = 37667-5) [facility]APTT[facility] 11:24:00 Test Item Value Reference Range Interpretation Comments PARTIAL THROMBOPLASTIN TIME 78.0 seconds 22.5-36.0 H (BEAKER) (test code = 760) POCT-GLUCOSE [id number] 07:58:00 Test Item Value Reference Range Interpretation Comments POC-GLUCOSE METER 102 mg/dL 70-110 : TESTED A T [facility] 6720 (BEAKER) (test code = AUDREY Whitley [facility], 1538) [address]: Sas Clinical Programmer/Techni jenifer ID = [id number] for Alexandra casas (contract) Kalpesh lazo BASIC METABOLIC [id number] 07:24:00 Test Item Value Reference Range Interpretation [...] S NOT APPLICABLE FOR DIALYSIS PATIEN TS. Sas Clinical Programmer ID - PIAYA [id number] 07:24:00 Test Item Value Reference Range Interpretation Comments MAGNESIUM (BEAKER) (test code = 2.1 mg/dL 1.6-2.6 627) Sas Clinical Programmer ID - PIAYA LCBC (HEMOGRAM ONLY)2020-09-28 06:59:00 [...] WBC 0-0 (BEAKER) (test code = 413) [id number] 01:15:00 Test Item Value Reference Range Interpretation Comments PARTIAL THROMBOPLASTIN TIME 32.7 seconds 22.5-36.0 (BEAKER) (test code = 760) POCT-GLUCOSE [id number] 16:51:00 Test Item Value Reference Range Interpretation Comments POC-GLUCOSE METER 107 mg/dL 70-110 : TESTED A T [facility] 6720 (BEAKER) (test code = AUDREY [place], 1538) [address]: Sas Clinical Programmer/Techni jenifer ID = [id number] for Suzanne Huerta rd ECG 12 [id number] 15:06:28Interface, External Ris In - 09/27/2020 3:06 PM CDTVentricular Rate 74 BPMAtrial Rate 74 BPMP-R Interval 366 msQRS Duration 78 msQ-T Interval 394 msQTC Calculation(Bazett) 437 msP Carson 61 degreesR Carson 66 degreesT Carson 196 degreesSinus rhythm with 1st degree A-V blockMinimal ST depression and T wave inversion in I, II and aVL with mild ST elevation in aVR consider ischemiaAbnormal ECGNo previous ECGs availableConfirmed by MD LUZ, ANDREI ([id number]) on 09/27/2020 3:06:24 [facility] W/Doppler(CW/PW/Color)2020-09-27 14:02:33Ejection FractionSLEH ECHO HEARTLAB MKCKESSON CPACSInterface, External Ris In - 09/27/2020 2:02 PM CDTTransthoracic Echocardiography Report (TTE) Demographics Patient Name JERE RHODES Date ofStudy 09/27/2020 DARLIN Gender Male Visit Number [id number] Race Unknown RoomNumber 8A07 Number Date of 1935 Referring Franky Mantilla Physician Age 85 year(s) Diabetes Education Coordinator Darlene Lares [facility] [employer] Jovanni Benz Interpreting [facility] Physician James Chirinos MD Procedure [...] LVOT CO: 3.61 l/min LVOT CI: 1.93 l/min/m^2CSil[facility] CampusARS-CoV2/RT-PCR (Asymptomatic ONLY)2020-09-27 13:03:00 Test Item Value Reference Range Interpretation Comments SARS-COV2/RT-PCR Negative Not Detected, (test code = Negative, See 09434-6) external report for linked test SARS-COV-2 [facility] PERFORMING LAB (test code = 02635-1) GRABIEL (test code = Negative result for [...] of the Act. Fact Sheet for Healthcare Providers:https://www.[employer]/sites/default/f carmen/product/documents/F act_Sheet_HC_Providers_L kny_QNPS-OpN-3.pdf Fact Sheet for Healthcare Patients:https://www.[employer]/sites/default/fi les/product/documents/Fa ct_Sheet_Patients_Lyra_S ARS-CoV-2.pdf Performing Laboratory:[facility] [place] [address] [facility] ([facility])2020-09-27 13:03:00 Test Item Value Reference Range Interpretation Comments SARS-COV2/RT-PCR (test Negative Not Detected, Negative, code = 8875401) See external report for linked test SARS-COV-2 PERFORMING LAB [facility] JIMENEZ (test code = 6854397) Negative result for this test determines that [...] 564(g) of the Act.Fact Sheet for Healthcare Providers:https://www.[employer]/sites/default/files/product/documents/Fact_Shee d_XR_Tmjjtuixd_Tjul_IUVA-NaJ-1.pdfFact Sheet for Healthcare Patients:https://www.[employer]/sites/default/files/product/ documents/Mhkx_Vlmrn_Ljqprehg_Ietg_ANPO-MuA-1.pdfPerforming Laboratory:[address], [place] [address]VAXG-VXHBDVH METER 2020-09-27 11:29:00 Test Item Value Reference Range Interpretation Comments POC-GLUCOSE METER 124 mg/dL 70-110 H : Notified RN/: (HANNAH) (test code = TESTED AT [place] [address] 15[address]) [facility], [address]: Sas Clinical Programmer/Techni jenifer ID = [id number] for PH INISEE, DARRYL POCT-GLUCOSE [id number] 08:54:00 Test Item Value Reference Range Interpretation Comments POC-GLUCOSE METER 135 mg/dL 70-110 H : TESTED A T [facility] 67 (HANNAH) (test code = [facility] Angi [facility], 1538) [address]: Sas Clinical Programmer/Techni jenifer ID = [id number] for PH INISEE, DARRYL Vitamin B12 and [id number] 05:55:00 Test Item Value Reference Range Interpretation Comments Vitamin B12 (test 578 pg/mL 213-816 code = 2132-9) Folate (test code = 18.00 ng/mL See_Comment [Automa valentina 2284-8) message] The system which generated this result transmit valentina reference range : >=7.00. The reference range was not used to interpret this result as normal/abnormal . GRABIEL (test code = GRABIEL) Sas Clinical Programmer ID - CLARA Grajeda Lab Interpretation Normal (test code = 74734-2) [facility] CenterFerritin2021-08-02 05:55:00 Test Item Value Reference Range Interpretation Comments Ferritin (test code = 35.96 ng/mL 5-275 2276-4) GRABIEL (test code = GRABIEL) Sas Clinical Programmer ID - CLARA Grajeda Lab Interpretation (test Normal code = 10431-1) [facility] CenterFERRITIN2021-08-02 05:55:00 Test Item Value Reference Range Interpretation Comments FERRITIN (BEAKER) (test code = 35.96 ng/mL 5.00-275.00 361) Sas Clinical Programmer ID Rip ELIZABETH MVITAMIN B12 AND [id number] 05:55:00 Test Item Value Reference Range Interpretation Comments VITAMIN B12 578 pg/mL 213-816 (BEAKER) (test code = 774) FOLATE (BEAKER) 18.00 ng/mL See_Comment [Automated message] (test code = 362) The system which generated this result transmitted ref erence range: >=7.00. The reference range was not used to interpr et this result as normal/abnormal . Sas Clinical Programmer ID Rip ELIZABETH Natalie, TIBC, % sat. (without ferritin)2020-09-27 05:10:00 Test Item Value Reference Range Interpretation Comments Iron (test code = 2498-4) 37.0 ug/dL 40-160 L TIBC (test code = 2500-7) 404 ug/dL 250-450 Iron % Saturation (test 9 % 20-55 L code = 2502-3) GRABIEL (test code = GRABIEL) Sas Clinical Programmer ID Rip Grajeda Lab Interpretation (test Abnormal code = 28251-7) [facility] CenterIRON, TIBC, % SAT. (WITHOUT FERRITIN)2020-09-27 05:10:00 Test Item Value Reference Range Interpretation Comments IRON (BEAKER) (test code = 547) 37.0 ug/dL 40.0-160.0 L TOTAL IRON BINDING CAPACITY 404 ug/dL 250-450 (BEAKER) (test code = 769) IRON % SATURATION (2) (BEAKER) 9 % 20-55 L (test code = 2590) Sas Clinical Programmer AIYANA ELIZABETH MBASIC METABOLIC [id number] 04:39:00 Test Item Value Reference Range Interpretation [...] S NOT APPLICABLE FOR DIALYSIS PATIEN TS. Sas Clinical Programmer AIYANA ELIZABETH [id number] 04:39:00 Test Item Value Reference Range Interpretation Comments MAGNESIUM (BEAKER) (test code = 2.3 mg/dL 1.6-2.6 627) Sas Clinical Programmer AIYANA Rip ELIZABETH MCBC (HEMOGRAM ONLY)2020-09-27 04:22:00 [...] 0-0 (BEAKER) (test code = 413) POCT-GLUCOSE [id number] 23:19:00 Test Item Value Reference Range Interpretation Comments POC-GLUCOSE METER 109 mg/dL 70-110 : TESTED A T [facility] 6720 (BEAKER) (test code = AUDREY [place]ESS [place], 1538) [address]: Sas Clinical Programmer/Techni jenifer ID = [id number] for FRANCIA SANCHES [id number] 13:27:00 Test Item Value Reference Range Interpretation Comments PARTIAL THROMBOPLASTIN TIME 75.7 seconds 22.5-36.0 H (BEAKER) (test code = 760) Hemoglobin [id number] 08:25:00 Test Item Value Reference Range Interpretation Comments Hemoglobin A1C (test code = 4548-4) 6.7 % 4.3-6.1 H Lab Interpretation (test code = Abnormal 29820-9) [facility] CenterHEMOGLOBIN [id number] 08:25:00 Test Item Value Reference Range Interpretation Comments HEMOGLOBIN A1C (BEAKER) (test code = 6.7 % 4.3-6.1 H 368) RAD, CHEST, 1 VIEW, NON [id number] 08:15:00Reason for exam:->shortness of breath Should this be performed at the bedside?->Yes [facility] 1935 Sex: MFINAL REPORT INDICATION: shortness of breath COMPARISON: None ANTON HNIQUE: Single frontal view of the chest. FINDINGS: Lungs and pleura: Clear lungs. No effusion.Heartand mediastinum: Normal heart size. Unremarkable mediastinal contours.Osseous structures: No acute abnormality.Other: None. IMPRESSION: No acute intrathoracic abnormality. Signed: Yaneth Gifford Verified Date/Time: 09/26/2020 08:15:42 Reading Location: [address] Neuro Reading Room XR chest 1 view portable / [id number] 08:15:00 Interface, External Ris In - 09/26/2020 8:17 AM CDTFINAL REPORT INDICATION: shortness of breath COMPARISON: None TECHNIQUE: Single frontal view of the chest. FINDINGS: Lungs andpleura: Clear lungs. No effusion.Heart and mediastinum: Normal heart size. Unremarkable mediastinal c ontours.Osseous structures: No acute abnormality.Other: None. IMPRESSION: No acute intrathoracic abnormality. Signed: Yaneth Gifford Verified Date/Time: 09/26/2020 08:15:42 Reading Location: [address] Neuro Reading Room [facility] [id number] 07:15:00 Test Item Value Reference Range Interpretation Comments ABO Grouping (test code = 2588) B Rh Factor (test code = 2589) POS [facility] CenterType and screen, [id number] 06:19:00 Test Item Value Reference Range Interpretation Comments ABO/RH AUTOMATED (BEAKER) (test B POSITIVE code = 2260) Ab Scrn (test code = 890-4) NEGATIVE [facility] CenterAPTT2021 05:20:00 Test Item Value Reference Range Interpretation Comments PARTIAL THROMBOPLASTIN TIME 111.9 seconds 22.5-36.0 H (BEAKER) (test code = 760) Patient on hep drippingComprehensive metabolic [id number] 05:17:00 Test Item Value Reference Range Interpretation Comments Protein, Total 6.7 See_Comment [Automated (test code = message] The 2885-2) system which generated this result transmit valentina reference range : 6.0 - 8.3 gm/dL . The reference range was not u sed to interpret th is result as normal/abnormal . Albumin (test code 3.6 g/dL 3.5-5 = 68184-3) Alkaline 102 U/L 40-150 Phosphatase (test code = 6768-6) Total Bilirubin 0.4 mg/dL 0.2-1.2 (test code = 1975-2) Sodium (test code = 138 meq/L 332-552 3873-2) Potassium (test 4.0 meq/L 3.5-5.1 code = 2823-3) Chloride (test code 102 meq/L 98-107 = 2075-0) CO2 (test code = 24 meq/L 22-29 2027-9) BUN (test code = 16 mg/dL 7-21 3094-0) Creatinine (test 0.91 mg/dL 0.57-1.25 code = 2160-0) Glucose (test code 103 mg/dL 70-105 = 2345-7) Calcium (test code 9.2 mg/dL 8.4-10.2 = 11435-6) AST (test code = 29 U/L 5-34 1920-8) ALT (test code = 24 U/L 6-55 1742-6) EGFR (test code = 79 mL/min/1.73 [place] [address]-8) NOT ACCURATE CREATININE CLEARANCE IN PREDICTING GLOMERULAR FILTRATION RATE . ESTIMATED GFR I S NOT APPLICABLE FOR DIALYSIS PATIEN TS. GRABIEL (test code = Sas Clinical Programmer ID - DB GRABIEL) [facility] CenterLipid [id number] 05:17:00 Test Item Value Reference Range Interpretation Comments Triglycerides (test 90 mg/dL code = 2571-8) Cholesterol (test code 171 mg/dL = 2093-3) HDL (test code = 39 mg/dL 2084-9) LDL Calculated (test 114 mg/dL code = 82806-4) GRABIEL (test code = GRABIEL) Triglyceride Reference Range: Low Risk <150 Borderline 150-199 High Risk 200-499 Very High Risk >=500 Cholesterol Reference Range: Low Risk <200 Borderline 200-239 High Risk >240 HDL Cholesterol Reference Range: Low Risk >=60 High Risk <40 LDL Cholesterol Reference Range: Optimal <100 Near Optimal 100-129 Borderline 130-159 High 160-189 Very High >=190 Sas Clinical Programmer ID - DB [facility] CenterCOMPREHENSIVE METABOLIC [id number] 05:17:00 Test Item Value Reference Range Interpretation [...] S NOT APPLICABLE FOR DIALYSIS PATIEN TS. Sas Clinical Programmer ID - DBLIPID [id number] 05:17:00 Test Item Value Reference Range Interpretation [...] Borderline 130-159 High 160-189 Very High >=190 Sas Clinical Programmer ID - DBB-type Natriuretic Factor (BNP)2020-09-26 05:16:00 Test Item Value Reference Range Interpretation Comments BNP (test code = 96252-5) 686 pg/mL 0-100 H GRABIEL (test code = GRABIEL) Sas Clinical Programmer ID - DB Lab Interpretation (test Abnormal code = 29618-5) [facility] CenterB-TYPE NATRIURETIC FACTOR (BNP)2020-09-26 05:16:00 Test Item Value Reference Range Interpretation Comments B-TYPE NATRIURETIC PEPTIDE (BEAKER) 686 pg/mL 0-100 H (test code = 700) Sas Clinical Programmer ID - DBHigh Sensitivity Troponin [id number] 05:14:00 Test Item Value Reference Range Interpretation Comments Troponin I HS 175 pg/ml See_Comment H [Automated (test code = message] The 99721-4) system which generated this result transmitted reference range : <=35. The reference range was not used to interpret this result as normal/abnormal . GRABIEL (test code = Sas Clinical Programmer ID - GRABIEL) DBThe POINTER HELPER STAT High Sensitivity Troponin-I results should be used in conjunction with other diagnostic information such as ECG, clinical observations and information, and patient symptoms to aid in the diagnosis of SC. Lab Interpretation Abnormal (test code = 36919-9) [facility] CenterHIGH SENSITIVITY TROPONIN [id number] 05:14:00 Test Item Value Reference Range Interpretation Comments HIGH SENSITIVITY 175 pg/ml See_Comment H [Automated message] TROPONIN I (test code The sy stem which = 7198224) generated this result transmitted ref erence range: <=35. Th e reference range was not used to int erpret this result as normal/abnormal . Sas Clinical Programmer ID - DBThe POINTER HELPER STAT High Sensitivity Troponin-I results should be used in conjunctionwith other diagnostic information such as ECG, clinical observations and information, and patient symptoms to aid in the diagnosis of SC.Prothrombin time/[id number] 05:07:00 Test Item Value Reference Interpretation Comments Range Protime (test code = 15.6 See_Comment H [Autom ated 6292-2) message] The system which generated this result transmitted reference range : 11.9 - 14.2 seconds. The reference range was not used to interpret this result as normal/abnormal . INR (test code = 1.26 See_Comment [Automated 4832-6) message] The system which generated this result [...] valves. Lab Interpretation Abnormal (test code = 16253-2) [facility] CenterPROTHROMBIN TIME/[id number] 05:07:00 Test Item Value Reference Range Interpretation Comments PROTIME (BEAKER) 15.6 seconds 11.9-14.2 H (test code = 759) INR (BEAKER) (test 1.26 See_Comment [Automat ed message] code = 370) The system [employer] generated this result transmitted ref erence range: [...] 4.1 See_Comment [A utomated message] The system [employer] generated this result transmitted ref erence range: 3.5 - 10 .5 K/L. The refe rence range was not u sed to interpret this result as normal/abnor mal. RBC (test code = 789-8) 3.65 See_Comment L [Au tomated message] The system [employer] generated this result transmitted ref erence range: 4.63 - 6 .08 M/L. The refe rence range was not u sed to interpret this result as normal/abnor mal. MCHC (test code = 786-4) 31.2 See_Comment L [A utomated message] The system [employer] generated this result transmitted ref erence range: [...] L [Aut omated message] 777-3) The system [employer] generated this result transmitted ref erence range: 150 - 45 0 K/CU MM. The referen ce range was not u sed to interpret this result as normal/abnor mal. MPV (test code = 10.3 fL 9.4-12.4 18957-1) nRBC (test code = 413) 0 See_Comment [Aut omated message] The system [employer] generated this result transmitted ref erence range: [...] See_Comment [Aut omated message] 670) The system [employer] generated this result transmitted ref erence range: 1.78 - 5 .38 K/L. The refe rence range was not u sed to interpret this result as normal/abnor mal. # Lymphs (test code = 1.01 See_Comment L [Auto mated message] 414) The system [employer] generated this result transmitted ref erence range: 1.32 - 3 .57 K/L. The refe rence range was not u sed to interpret this result as normal/abnor mal. # Monos (test code = 0.44 See_Comment [Autom ated message] 415) The system [employer] generated this result transmitted ref erence range: 0.30 - 0 .82 K/L. The refe rence range was not u sed to interpret this result as normal/abnor mal. # Eos (test code = 416) 0.16 See_Comment [Au tomated message] The system [employer] generated this result transmitted ref erence range: 0.04 - 0 .54 K/L. The refe rence range was not u sed to interpret this result as normal/abnor mal. # Baso (test code = 417) 0.02 See_Comment [A utomated message] The system [employer] generated this result transmitted ref erence range: 0.01 - 0 .08 K/L. The refe rence range was not u sed to interpret this result as normal/abnor mal. Immature 0 % 0-1 Granulocytes-Relative (test code = 2801) Lab Interpretation (test Abnormal code = 99287-7) [facility] W/PLT COUNT & AUTO [id number] 04:49:00 Test Item Value Reference Range Interpretation [...] Not Detected Not Detected (test code = 77550-5) GRABIEL (test code = GRABIEL) ID NOW COVID-19 Assay is an isothermal nucleic acid amplification test intended for the qualitative detection of nucleic acid from SARS-CoV-2 viral RNA in nasopharyngeal (HOSPITALITY JOB TITLES) specimens. It is used under Emergency Use [...] indicated. Lab Interpretation Normal (test code = 34492-7) [facility] WITH [id number] 19:54:17 Test Item Value Reference Range Interpretation Comments WBC (test code = See_Comment [Automated 7390-2) message] The sy stem which generated this result transmitted reference range : 4.20 - 10.70 10*3/?L. The reference range was not used to interpret this result as normal/abnormal . RBC (test code = See_Comment L [Automated 359-8) message] The sy stem which generated this [...] (test code = 52.3 fL 38.5-51.6 H 44136-7) RDW-CV (test code = 15.1 % 12.1-15.4 788-0) PLT (test code = See_Comment [Automated 777-3) message] The sy stem which generated this result transmitted reference range : 150 - 328 10*3/ ?L. The reference r sheryl was not used to interpret this result as normal/abnormal . MPV (test code = 10.2 fL 9.8-13.0 05787-4) NRBC/100 WBC (test See_Comment [Automat ed code = 2881895487) message] The system which generated this result transmitted reference range : 0.0 - 10.0 /100 WBCs. The refer ence range was not u sed to interpret th is result as normal/abnormal . NRBC x10^3 (test code <0.01 See_Comment [Auto mated = [id number]) message] The s ystem which generated this result transmitted reference range : 10*3/?L. The reference range was not used to interpret this result as normal/abnormal . GRAN MAT (NEUT) % 59.2 % (test code = 770-8) IMM GRAN % (test code 0.40 % = 8080152901) LYMPH % (test code = 26.7 % 736-9) MONO % (test code = 10.6 % 5905-5) EOS % (test code = 2.7 % 713-8) BASO % (test code = 0.4 % 706-2) GRAN MAT x10^3(ANC) 2.63 10*3/uL 1.99-6.95 (test code = 2669221866) IMM GRAN x10^3 (test <0.03 0.00-0.06 code = 6669736742) LYMPH x10^3 (test code 1.19 10*3/uL 1.09-3.23 = 731-0) MONO x10^3 (test code 0.47 10*3/uL 0.36-1.02 = 742-7) EOS x10^3 (test code = 0.12 10*3/uL 0.06-0.53 711-2) BASO x10^3 (test code <0.03 0.01-0.09 = 704-7) Lab Interpretation Abnormal (test code = 40336-3) [facility] EUPUG9334[facility]41-92 00:22:00Yellow *NA*(01/15/19 6:22 PM)[facility] EGCGH8078-17-60 00:22:00Clear (01/15/19 6:22 PM)[facility] OVPQQ3979-40-48 00:22:00 Test Item Value Reference Range Interpretation Comments UA Spec Grav (test code = UA Spec 1.023 1 Grav) [facility] MXBDU1487-76-86 00:22:00 Test Item Value Reference Range Interpretation Comments UA pH (test code = UA pH) 5.0 1 5.0-8.0 [facility] EMQWA4332-42-74 00:22:00Negative (01/15/19 6:22 PM) [facility] MKBMT0984-16-29 00:22:00Negative *NA*(01/15/19 6:22 PM)[facility] UWOXU2695-87-02 00:22:00Negative *NA*(01/15/19 6:22 PM)[facility] JJKOS9420-39-83 00:22:00Negative (01/15/19 6:22 PM) [facility] GSBWO4175-40-01 00:22:00Negative (01/15/19 6:22 PM) [facility] BEJOS1455-47-24 00:22:00Negative (01/15/19 6:22 PM) [facility] GSAOI1904-93-46 00:22:00None Seen (01/15/19 6:22 PM) [facility] KKVWB4876-84-87 00:22:001[facility] GQFHN4162-36-46 00:22:001[facility] TXMMB6719-67-01 00:22:00 Yellow *NA*(01/15/19 6:22 PM)[facility] JZJQZ9336-25-89 00:22:00 Clear (01/15/19 6:22 PM)[facility] MTXKC6132-72-45 00:22:00 Test Item Value Reference Range Interpretation Comments UA Spec Grav (test code = UA Spec 1.023 1 Grav) [facility] FYQFF8813-00-76 00:22:00 Test Item Value Reference Range Interpretation Comments UA pH (test code = UA pH) 5.0 1 5.0-8.0 [facility] YAZTE0820-01-25 00:22:00Negative (01/15/19 6:22 PM) [facility] NISAP9460-43-14 00:22:00Negative *NA*(01/15/19 6:22 PM)[facility] FJJYI5220-31-88 00:22:00Negative *NA*(01/15/19 6:22 PM)[facility] TXAAY2294-09-58 00:22:00Negative (01/15/19 6:22 PM) [facility] OOEWJ9695-74-02 00:22:00Negative (01/15/19 6:22 PM) [facility] PINUU2479-32-05 00:22:00Negative (01/15/19 6:22 PM) [facility] AJCSN4577-52-95 00:22:00None Seen (01/15/19 6:22 PM) [facility] UAPMZ5600-99-01 00:22:001[facility] SMNPA9151-58-49 00:22:001[facility] NYBVB8217-24-89 00:22:00 Yellow *NA*(01/15/19 6:22 PM)[facility] EBSAQ2499-63-62 00:22:00 Clear (01/15/19 6:22 PM)[facility] VNPXW9170-46-48 00:22:00 Test Item Value Reference Range Interpretation Comments UA Spec Grav (test code = UA Spec 1.023 1 Grav) [facility] XETCT3907-14-89 00:22:00 Test Item Value Reference Range Interpretation Comments UA pH (test code = UA pH) 5.0 1 5.0-8.0 [facility] UJNHR7570-14-27 00:22:00Negative (01/15/19 6:22 PM) [facility] QRXZF3381-30-37 00:22:00Negative *NA*(01/15/19 6:22 PM)[facility] UQKWP8471-74-78 00:22:00Negative *NA*(01/15/19 6:22 PM)[facility] CWJBP5716-06-98 00:22:00Negative (01/15/19 6:22 PM) [facility] PIZCO0983-54-60 00:22:00Negative (01/15/19 6:22 PM) [facility] XLWYO7644-72-42 00:22:00Negative (01/15/19 6:22 PM) [facility] QSTZX3311-57-93 00:22:00None Seen (01/15/19 6:22 PM) [facility] VUIUV2629-95-37 00:22:001[facility] GXYYN5462-81-00 00:22:001[facility] DMWBR3293-79-66 10:48:002.3 [facility] FAMBA1140-10-87 10:48:003.0[facility]annELECTROLYTES 2019-01-14 10:48:0010.3[facility] XaqfuhtFKRILXUEEUUH7848-21-42 10:48:34104 [facility] GxtskucUJTEIXAXOJZT1699-77-56 10:48:0015[facility]annELECTROLYTES 2019-01-14 10:48:000.69[facility] GjiatflJPWIZHOLKNDN1008-81-24 10:48:92001 [facility] SwufmydKWKZAQEBFHON9650-20-59 10:48:004.3[facility]annELECTROLYTES 2019-01-14 10:48:82992Prqkgneo PjznnkiULHSHKXPHAKB9416-71-07 10:48:0026[facility] IauqhlaUBVPAYTOVOGI8797-85-80 10:48:008.9[facility] XclagbdOONLGEJVMSPL7661-08-02 10:48:0087[facility] EkiocnaFOLRMCIZGS4572-75-39 10:48:002.6[facility] [place] QVTSHYBTDC0741-08-29 10:48:003.79[facility] RsntgyyEMVCELWYFX9025-51-31 10:48:00 11.1[facility] NjlufvcIBLZPLLLAL6740-37-21 10:48:0034.9[facility]annHEMATOLOGY 2019-01-14 10:48:0092.0[facility] LcteyvaCKRGSOGASQ7932-06-67 10:48:00 Test Item Value Reference Range Interpretation Comments MCH (test code = MCH) 29.3 pg 27.0-31.0 [facility] AfndcihBBFWRMKCOC8820-83-22 10:48:0031.8[facility]annHEMATOLOGY 2019-01-14 10:48:0016.5[facility] RovxfyxODAVQYXSPA7578-82-63 10:48:28164Soqdidjs PyjtlwjEDPMAHOHVY3954-95-58 10:48:008.3[facility] BxdveynGTNHODCSJA1384-71-24 10:48:0066.8[facility] UaiaqrpIAPPWPRDMG0178-35-13 10:48:0012.6[facility] [place] UHYAMFAREI9277-30-29 10:48:008.4[facility] WnpgxceQEVUPDLTQS9893-10-13 10:48:00 11.5[facility] MmotnthSJLHQNFEOB7135-11-66 10:48:000.7[facility]annHEMATOLOGY 2019-01-14 10:48:001.7[facility] SyypuswDZSJKTANHK1499-25-76 10:48:000.3[facility] FoljzkgWQTJSEILCZ5040-48-22 10:48:000.2[facility] OivddlzPBLQYVMRYR5669-24-58 10:48:000.3[facility] JlqcypiIKGBBTZGZLYB1122-44-04 10:48:0087[facility] NCXCBBQKXV7050-27-10 10:48:002.6[facility] VmvvlmfWADHXKDNDS5925-51-92 10:48:00 3.79[facility] VreuscbKKYUJLDTBJ2984-96-96 10:48:0011.1[facility]annHEMATOLOGY 2019-01-14 10:48:0034.9[facility] OjdmvxsJZEROXWQHV4097-51-61 10:48:0092.0[facility] QkwdvraWWOTPTDXHD4718-61-73 10:48:00 Test Item Value Reference Range Interpretation Comments MCH (test code = MCH) 29.3 pg 27.0-31.0 [facility] JgsrgzwOOUZOBRWAQ0163-94-56 10:48:0031.8[facility]annHEMATOLOGY 2019-01-14 10:48:0016.5[facility] CqmweveVGBUCAKPPO5351-24-77 10:48:09319Enzbpbbr GjdnrgeMADLHWUFDT5428-11-25 10:48:008.3[facility] CwpkxblDJPJTAJKLU0479-52-32 10:48:0066.8[facility] AwhzwzcWTXWQAJCBU4617-83-83 10:48:0012.6[facility] [place] KNSEXSNONN4941-28-57 10:48:008.4[facility] GmwqbuzRXRZTDBAOR8700-29-93 10:48:00 11.5[facility] AittgfyZDQNEAIZYK3353-26-60 10:48:000.7[facility]annHEMATOLOGY 2019-01-14 10:48:001.7[facility] UkmskeuKPTCUBBGFE2172-25-90 10:48:000.3[facility] PqrekqcTXOHXBPHTH1004-30-86 10:48:000.2[facility] GeqbdicHVVBJBTKKS8756-80-39 10:48:000.3[facility]annCHEM CMEOL3504-06-74 10:48:002.3[facility]annCHEM SMYQR1533-32-74 10:48:003.0[facility] NoiqfanEIQLZYUQMKZI5728-29-43 10:48:0010.3 [facility] XjilzueMNHVXIEKYPGL7991-03-50 10:48:96274Eefhgdas HermannELECTROLYTES 2019-01-14 10:48:0015[facility] QyqemzwCFCLCVLHYCTV1916-83-76 10:48:000.69[facility] QlzbfqfQNKYHFZMNTAG2779-05-99 10:48:75870Svauieuq CwijyfzOWIGCGUPBHXU9770-85-14 10:48:004.3[facility] ZzxzygmNOQMJAPDVYWB0503-64-49 10:48:01439Qmncysck [place] CBSZFVJWPDWK0036-87-82 10:48:0026[facility] QvsogxpBJGPLXQNNDRK4311-07-80 10:48:00 8.9[facility] AmvtuzjRZNKBBJUMCIL2212-64-36 10:48:0087[facility]annHEMATOLOGY 2019-01-14 10:48:002.6[facility] LpvczppFPQKLDUKOA1541-30-23 10:48:003.79[facility] XofkawlGEIGIXAOIT7960-98-93 10:48:0011.1[facility] ZtfnnlqGZIBHHKMRA9169-02-20 10:48:0034.9[facility] UwaqeelKOGHBPQHWK4765-01-60 10:48:0092.0[facility] OONIHYZFTQ3252-60-85 10:48:00 Test Item Value Reference Range Interpretation Comments MCH (test code = MCH) 29.3 pg 27.0-31.0 [facility] EsnkngaHDTGBLILMK6859-49-55 10:48:0031.8[facility]annHEMATOLOGY 2019-01-14 10:48:0016.5[facility] OomuixxXLGBLZYWZQ4866-68-33 10:48:97428Sewkccgr FuhacncQGMEVKFKLZ9448-83-37 10:48:008.3[facility] CbybjuvZSJGIVAREN0504-07-16 10:48:0066.8[facility] QxvsifeNGNCZMPVNR4014-44-74 10:48:0012.6[facility] [place] CJSMQXMKUC8088-98-27 10:48:008.4[facility] ElkhocmUFAFATQPAM0830-99-26 10:48:00 11.5[facility] EcewdyvQDGTVRUVHY1336-59-54 10:48:000.7[facility]annHEMATOLOGY 2019-01-14 10:48:001.7[facility] ItudagtXECEJDSHWN1784-88-69 10:48:000.3[facility] NuluagqABZKDXDYPD1616-37-33 10:48:000.2[facility] BdeibumNWAFNJOILN4710-13-99 10:48:000.3[facility]annCHEM RSLTC7843-95-63 10:48:002.3[facility]annCHEM FSKNH0425-53-34 10:48:003.0[facility] PawjxpjPVADUOTOCSQE6064-74-76 10:48:0010.3 [facility] KdtsdovBWKMRYSEDDLP9430-30-95 10:48:59501Sdhvvery HermannELECTROLYTES 2019-01-14 10:48:0015[facility] DugydmfFIDTBPAIIENV0887-01-48 10:48:000.69[facility] ItvxcilALGWZPTOPPBA5860-66-65 10:48:85851Wmxkfnga AezlmtiHFZKGELRLWII6442-09-55 10:48:004.3[facility] UqsabwvFQYZTVCHWKOZ3086-21-33 10:48:83546Cxaecxam [place] XWRQVUBUTXKD4658-74-39 10:48:0026[facility] CqktpkmXJPSYOGDPQQI9020-68-03 10:48:00 8.9[facility]annCHEM DNRKB5916-09-83 10:15:002.0[facility]annCHEM PANEL 2019-01-13 10:15:003.6[facility]annCHE[facility] HATNM0081-89-98 10:15:72873Yvhpkkdw HermannCHEM BXLDW9300-19-78 10:15:009[facility]annCHE[facility] UNTPP1399-47-66 10:15:000.71[facility]annCHE[facility] BXQAL3899-43-31 10:15:96994Enuvpzhj HermannCHEM SMARR6909-58-28 10:15:004.2[facility]annCHE[facility] JULTR1198-94-35 10:15:75659 [facility] VISKN2952-00-21 10:15:0027[facility]annCHEM PANEL 2019-01-13 10:15:0010.2[facility]annCHE[facility] TZARR1749-71-83 10:15:008.9[facility]annCHE[facility] FYLEX8548-48-88 10:15:0086[facility] OtkifarGKOYRXQKQF8365-51-70 10:15:0063.6[facility] SjygjuuANFYERXTWP9648-37-45 10:15:0019.5[facility] [place] RXEFVUCZIS2782-77-38 10:15:0011.0[facility] NciyiooUUFMMROAZE0065-47-46 10:15:00 5.2[facility] WdrsqbxLUXGGVXRCU2546-79-26 10:15:000.7[facility]annHEMATOLOGY 2019-01-13 10:15:001.4[facility] EwmtcdmJNSKQVVIUT2451-46-27 10:15:000.4[facility] FjcfbxuGDYTKKWZKR0084-13-85 10:15:000.2[facility] VvwpysvCMQBWXNWVP8854-78-32 10:15:000.1[facility] DlwtfiyKGJPKLYQHU1835-91-56 10:15:002.2[facility] [place] ABVFGQFZMF7240-95-63 10:15:003.60[facility] HrpmlvtHMQDGATXWL8037-71-59 10:15:00 10.8[facility] PkppyvtOBKLTLOQBL0676-34-65 10:15:0033.4[facility]annHEMATOLOGY 2019-01-13 10:15:0092.9[facility] NnmazovLWMEBPTHRP3217-04-48 10:15:00 Test Item Value Reference Range Interpretation Comments MCH (test code = MCH) 30.1 pg 27.0-31.0 [facility] LjscqomDBBDIEYPAL7901-16-21 10:15:0032.4[facility]annHEMATOLOGY 2019-01-13 10:15:0017.0[facility] KmgpdljRPFOSYUKER9687-02-17 10:15:58372Yhljhwdj KvikwvjUFHBKUNLGX4726-17-54 10:15:008.0[facility]annCHEM MXGGM0533-88-61 10:15:002.0[facility]annCHEM EZPJJ8132-69-09 10:15:003.6[facility]annCHEM AKBUC2996-61-81 10:15:13293Oqlksylb HermannCHEM MTYJE4126-36-30 10:15:009 [facility]annCHE[facility] DIXRR3027-63-51 10:15:000.71[facility]annCHEM PANEL 2019-01-13 10:15:15625Ajgqtrmf HermannCHEM YJZXE9797-23-23 10:15:004.2[facility]annCHEM RKLSZ4114-69-72 10:15:06122Otzianxg HermannCHEM DTCAI6308-31-05 10:15:0027[facility]annCHEM CBGZV6790-32-30 10:15:0010.2[facility]annCHEM UYIPD8639-48-72 10:15:008.9[facility]annCHEM INBGC9175-63-33 10:15:0086 [facility] LanbijeMXHEWVMBKA5442-11-42 10:15:0063.6[facility]annHEMATOLOGY 2019-01-13 10:15:0019.5[facility] McbcgbtWCBIIHWEFH1909-90-92 10:15:0011.0[facility] MuqxweqUFHRCQALMD0141-69-71 10:15:005.2[facility] IorbmyaANRXZKMZNB2769-40-35 10:15:000.7[facility] FfzinipCFOPBJUTZI2741-85-52 10:15:001.4[facility] [place] YPUJXBSPSQ6651-55-49 10:15:000.4[facility] JllvbpdZZHDTOPIVD7907-95-42 10:15:000.2 [facility] PqmchvvFEZVNFPCPQ6014-21-42 10:15:000.1[facility]annHEMATOLOGY 2019-01-13 10:15:002.2[facility] LhdkjifBJVNTRXUSQ5957-88-32 10:15:003.60[facility] VazzqaxQCEEPFBZTV0147-01-07 10:15:0010.8[facility] UfpubcwGFHCPPYURF2103-30-22 10:15:0033.4[facility] OpzlomgVDJEYJTOKW9334-79-98 10:15:0092.9[facility] [place] VDKTSOKPFI1711-42-81 10:15:00 Test Item Value Reference Range Interpretation Comments MCH (test code = MCH) 30.1 pg 27.0-31.0 [facility] SuuitliREYMGGARXW6733-70-18 10:15:0032.4[facility]annHEMATOLOGY 2019-01-13 10:15:0017.0[facility] GqzfwyeDJQLQEMMIH7585-81-76 10:15:92272Qualldmx NtsnfuwMWMEOJSEXY9067-15-18 10:15:008.0[facility]annCHEM JJDWL7932-08-56 10:15:002.0[facility]annCHEM VQQYR2011-40-24 10:15:003.6[facility]annCHEM DBYRP7092-16-72 10:15:59254Dabpebut HermannCHEM PUDDA1210-95-35 10:15:009 [facility]annCHE[facility] HKGQN6266-45-58 10:15:000.71[facility]annCHEM PANEL 2019-01-13 10:15:90701Gjfdkwcl HermannCHEM DXQWI2431-48-74 10:15:004.2[facility]annCHEM PAQWQ7948-96-36 10:15:43886Vuewaxpo HermannCHEM YPSFT3512-23-26 10:15:0027[facility]annCHEM KGBIC6338-66-98 10:15:0010.2[facility]annCHEM DTCDC7969-29-20 10:15:008.9[facility]annCHEM ZKNTR7190-88-23 10:15:0086 [facility] JrvzflnSXOOUBWDVF2094-52-02 10:15:0063.6[facility]annHEMATOLOGY 2019-01-13 10:15:0019.5[facility] KcindenXYOSXEWCHU8444-71-43 10:15:0011.0[facility] HzbazmhIRERIARIQG3201-72-22 10:15:005.2[facility] UmfdoyyNUSXIXRRCF1670-90-12 10:15:000.7[facility] ZyebihoGBRHYAMMKO2755-14-30 10:15:001.4[facility] FTSKMIJFLB6945-32-20 10:15:000.4[facility] TjwrqjdHLPHVOMSVU0731-63-30 10:15:000.2 [facility] BqubryaORHQGFQIBJ5344-85-29 10:15:000.1[facility]annHEMATOLOGY 2019-01-13 10:15:002.2[facility] WoohadaISZZJMIVZI5452-67-80 10:15:003.60[facility] RccgocsUOQPNZXJPG3292-10-51 10:15:0010.8[facility] LeiacujRODPTHAKKT2607-93-87 10:15:0033.4[facility] OqjnkdhHJEHMTIJIA4963-79-28 10:15:0092.9[facility] KLJNUYWLNG8054-95-60 10:15:00 Test Item Value Reference Range Interpretation Comments MCH (test code = MCH) 30.1 pg 27.0-31.0 [facility] GtkuyqnJJSHZEQKOY7412-43-70 10:15:0032.4[facility]annHEMATOLOGY 2019-01-13 10:15:0017.0[facility] AxrjnfvQYZEKGVAYT1279-89-21 10:15:26119Bqlxmcjs MprzcvgIEIYKUSERR0662-74-34 10:15:008.0[facility]annCHEM RXZOB5579-36-18 10:43:10127Vlhcwmrn HermannCHEM DDBCG6923-74-92 10:43:007[facility]annCHEM NXYOV4390-57-48 10:43:000.69[facility]annCHEM XADBW6043-03-71 10:43:04890 [facility]annCHE[facility] GQLDC8753-98-43 10:43:004.3[facility]annCHEM PANEL 2019-01-12 10:43:43098Ixxuscdr HermannCHEM SJOTI1943-06-15 10:43:0026[facility]annCHEM RUIFS2253-27-67 10:43:008.5[facility]annCHEM ANBSX9679-40-81 10:43:0087[facility]annCHEM XFHIM9942-43-52 10:43:0011.3[facility]annCHEM DAEBQ3962-59-93 10:43:001.9[facility]annCHEM EUQAM7072-30-03 10:43:002.8 [facility] ZcsrknpOEJVROKZJV5525-85-66 10:43:003.7[facility]annHEMATOLOGY 2019-01-12 10:43:003.68[facility] AnwjiwbFTEVSDJGMF0051-73-19 10:43:0011.0[facility] DvrgjzyMVQOZPNCDS0203-36-82 10:43:0033.9[facility] GednjthXSAVQIGDHD4241-55-12 10:43:0092.1[facility] UzcwgyxHQPDTPEOXG2470-58-97 10:43:00 Test Item Value Reference Range Interpretation Comments MCH (test code = MCH) 30.0 pg 27.0-31.0 [facility] TiauhkeTAFWYDQXIG8653-96-24 10:43:0032.6[facility]annHEMATOLOGY 2019-01-12 10:43:0016.7[facility] AcmtxnsJFSGKVZPVD7154-06-56 10:43:21063Vvpujwhn RimsgdcBODEMFYXQX2728-06-00 10:43:008.2[facility] OcrfsvnVJMALLLDTZ0063-87-76 10:43:0076.8[facility] JhdzphxSHJXKKXTLU4263-81-85 10:43:009.9[facility] GHKFULPHFS3497-10-93 10:43:0011.8[facility] VmascbmJTDELTXLOU8600-17-72 10:43:00 1.2[facility] KjranoeJWADVVIPBV5414-10-93 10:43:000.3[facility]annHEMATOLOGY 2019-01-12 10:43:002.8[facility] NvgijgbZWELOBDOSC5278-91-96 10:43:000.4[facility] JvpvghvJLQWNVGSBO3155-65-70 10:43:000.4[facility] HermannCHEM FNASR4799-28-43 10:43:00611Iibgxgcx HermannCHEM UOCXB1232-09-39 10:43:007[facility]annCHEM EBIBI1613-02-42 10:43:000.69[facility]annCHEM VBBSV8394-66-46 10:43:63123 [facility]annCHEM CAVDO6775-54-68 10:43:004.3[facility]annCHEM PANEL 2019-01-12 10:43:52585Fpfmpzdc HermannCHEM RRJQD5827-14-17 10:43:0026[facility]annCHEM VKUSA0985-86-80 10:43:008.5[facility]annCHEM XQTYK7159-70-83 10:43:0087[facility]annCHEM OIFGS2622-28-02 10:43:0011.3[facility]annCHEM TXTBI2035-86-77 10:43:001.9[facility]annCHEM HRLMC6643-98-05 10:43:002.8 [facility] GatruxgSQCBAUKTRF2303-86-90 10:43:003.7[facility]annHEMATOLOGY 2019-01-12 10:43:003.68[facility] OvracukGELKQEGLXR2925-31-32 10:43:0011.0[facility] PjtjbfmIOUGCKXBSF4225-13-98 10:43:0033.9[facility] VsywjosCSAMAFVWYQ2138-28-70 10:43:0092.1[facility] CvckrnoDWVFYAMKMV5854-50-94 10:43:00 Test Item Value Reference Range Interpretation Comments MCH (test code = MCH) 30.0 pg 27.0-31.0 [facility] GdfekuiHKUWGIWRKE7701-55-83 10:43:0032.6[facility]annHEMATOLOGY 2019-01-12 10:43:0016.7[facility] TfgukxhJNKLRTOTJL5122-42-83 10:43:12587Egrtjggp OvuxmivUJOEORFCPH8489-90-38 10:43:008.2[facility] PeongybGVECCAEEPJ8404-08-40 10:43:0076.8[facility] CksrhgyPWPTVQQKNB4387-31-66 10:43:009.9[facility] [place] DUXWCKZZRS2723-96-91 10:43:0011.8[facility] HkymeurUTBXBUEGYQ1356-03-08 10:43:00 1.2[facility] ArgfhblDKBOAIWPOI3062-00-27 10:43:000.3[facility]annHEMATOLOGY 2019-01-12 10:43:002.8[facility] DatvdbbHZMTOPIOUP5833-22-40 10:43:000.4[facility] BomirluYXJPZOBAIT1943-32-30 10:43:000.4[facility] HermannCHEM ADQQD9449-32-37 10:43:60163Neinobrz HermannCHEM FVIIM4644-72-71 10:43:007[facility]annCHEM HEHUW9419-40-54 10:43:000.69[facility]annCHEM WIJKQ4272-85-34 10:43:00338 [facility]annCHEM PODAS8854-59-62 10:43:004.3[facility]annCHEM PANEL 2019-01-12 10:43:06044Zlskyfxq HermannCHEM VNEWV3092-33-20 10:43:0026[facility]annCHEM BHTXJ1461-40-72 10:43:008.5[facility] HermannCHEM KYATE5235-95-30 10:43:0087[facility]annCHEM QAGQI2327-57-22 10:43:0011.3[facility]annCHEM KQSOD9320-91-33 10:43:001.9[facility]annCHEM UPQHR4515-41-68 10:43:002.8 [facility] MbmkdecBNARILCGGV5625-06-87 10:43:003.7[facility]annHEMATOLOGY 2019-01-12 10:43:003.68[facility] GahyhbbSGSDWUOQCR6714-02-02 10:43:0011.0[facility] RligqrrHGMWPPROWO9531-86-54 10:43:0033.9[facility] EpdpfkwAMUWBGPNMK2737-35-46 10:43:0092.1[facility] QuhvxhkHABIJRLKUD9848-85-85 10:43:00 Test Item Value Reference Range Interpretation Comments MCH (test code = MCH) 30.0 pg 27.0-31.0 [facility] GaxrjfxGFVJIOHWKL7733-41-09 10:43:0032.6[facility] HermannHEMATOLOGY 2019-01-12 10:43:0016.7[facility] RmgwajbFKELONPDRI3901-27-42 10:43:45543Vzgorygs NlwaezoRLPHWCLDLL8984-94-65 10:43:008.2[facility] CisrcrxIMLKWSKMGV7789-35-89 10:43:0076.8[facility] AphqhwiOXYFZLXJIW1016-73-22 10:43:009.9[facility] [place] GIUVQHJYPW2538-57-80 10:43:0011.8[facility] CntzndbBIKARKHYNW2109-77-26 10:43:00 1.2[facility] YuidtxiZYDUUJOGRW4605-53-33 10:43:000.3[facility]annHEMATOLOGY 2019-01-12 10:43:002.8[facility] FzurcjhYJUIZANUMV8146-28-66 10:43:000.4[facility] KiyrwojTYRUMEENXD3456-93-02 10:43:000.4[facility]annBACTERIAL - SEROLOGY 2019-01-10 09:33:00Urine *NA*(01/10/19 3:33 AM)[facility]annBACTERIAL - OKAVQAGP9242-51-82 09:33:00Negative (01/10/19 3:33 AM)[facility] HNQHM3759-96-52 09:33:00Yellow *NA*(01/10/19 3:33 AM)[facility] [id number] 09:33:00Clear (01/10/19 3:33 AM)[facility] STOOL 2019-01-10 09:33:00 Test Item Value Reference Range Interpretation Comments UA Spec Grav (test code = UA Spec 1.014 1 Grav) [facility] [id number] 09:33:00 Test Item Value Reference Range Interpretation Comments UA pH (test code = UA pH) 5.0 1 5.0-8.0 [facility] [id number] 09:33:00Negative (01/10/19 3:33 AM) [facility] BAQSH2575-25-28 09:33:00Negative *NA*(01/10/19 3:33 AM)[facility] ZPWVX8163-06-52 09:33:00Trace *ABN*(01/10/19 3:33 AM)[facility] LQEUA0153-38-24 09:33:00Negative *NA*(01/10/19 3:33 AM)[facility] QCIWD0023-26-45 09:33:00Negative (01/10/19 3:33 AM) [facility] UIBUX8694-38-03 09:33:00Negative (01/10/19 3:33 AM) [facility] PXZMV7307-73-75 09:33:00Negative (01/10/19 3:33 AM) [facility] GRRCW4186-36-27 09:33:00None Seen (01/10/19 3:33 AM) [facility] EOGNA1506-76-41 09:33:00<1[facility] JAWDX9624-63-19 09:33:00<1[facility]annBACTERIAL - WHVKGSGU3794-64-24 09:33:00Urine *NA*(01/10/19 3:33 AM)[facility]annBACTERIAL - SEROLOGY 2019-01-10 09:33:00Negative (01/10/19 3:33 AM)[facility] STOOL 2019-01-10 09:33:00Yellow *NA*(01/10/19 3:33 AM)[facility] STOOL 2019-01-10 09:33:00Clear (01/10/19 3:33 AM)[facility] STOOL 2019-01-10 09:33:00 Test Item Value Reference Range Interpretation Comments UA Spec Grav (test code = UA Spec 1.014 1 Grav) [facility] [id number] 09:33:00 Test Item Value Reference Range Interpretation Comments UA pH (test code = UA pH) 5.0 1 5.0-8.0 [facility] [id number] 09:33:00Negative (01/10/19 3:33 AM) [facility] OKSQB7638-58-21 09:33:00Negative *NA*(01/10/19 3:33 AM)[facility] GQNHE5154-53-54 09:33:00Trace *ABN*(01/10/19 3:33 AM)[facility] [id number] 09:33:00Negative *NA*(01/10/19 3:33 AM)[facility] [id number] 09:33:00Negative (01/10/19 3:33 AM) [facility] QNZRE3636-80-08 09:33:00Negative (01/10/19 3:33 AM) [facility] WQHGK4063-24-87 09:33:00Negative (01/10/19 3:33 AM) [facility] TKCWT3681-44-20 09:33:00None Seen (01/10/19 3:33 AM) [facility] CIGOU5328-92-45 09:33:00<1[facility] JWJSH9311-73-95 09:33:00<1[facility]annBACTERIAL - BJBSGDEK4336-54-11 09:33:00Urine *NA*(01/10/19 3:33 AM)[facility]annBACTERIAL - SEROLOGY 2019-01-10 09:33:00Negative (01/10/19 3:33 AM)[facility] STOOL 2019-01-10 09:33:00Yellow *NA*(01/10/19 3:33 AM)[facility] STOOL 2019-01-10 09:33:00Clear (01/10/19 3:33 AM)[facility] STOOL 2019-01-10 09:33:00 Test Item Value Reference Range Interpretation Comments UA Spec Grav (test code = UA Spec 1.014 1 Grav) [facility] [id number] 09:33:00 Test Item Value Reference Range Interpretation Comments UA pH (test code = UA pH) 5.0 1 5.0-8.0 [facility] AIKXH5617-94-17 09:33:00Negative (01/10/19 3:33 AM) [facility] YUAPO4865-26-03 09:33:00Negative *NA*(01/10/19 3:33 AM)[facility] BQBYU4914-92-10 09:33:00Trace *ABN*(01/10/19 3:33 AM)[facility] SDVPK8579-88-54 09:33:00Negative *NA*(01/10/19 3:33 AM)[facility] YDXBS7263-73-71 09:33:00Negative (01/10/19 3:33 AM) [facility] SCBSK8622-45-08 09:33:00Negative (01/10/19 3:33 AM) [facility] [id number] 09:33:00Negative (01/10/19 3:33 AM) [facility] YZOUE9188-16-30 09:33:00None Seen (01/10/19 3:33 AM) [facility] KQBRX8190-31-81 09:33:00<1[facility] FCISB6644-22-61 09:33:00<1[facility] HermannVIRAL - URUQVIUU0155-53-21 07:15:00 Negative (01/10/19 1:15 AM)[facility]VIRAL - VAKIVJGY7472-11-11 07:15:00 Negative (01/10/19 1:15 AM)[facility]annVIRAL - VMDHMERM5596-19-95 07:15:00 Negative (01/10/19 1:15 AM)[facility] - CZWWZUYL3001-33-11 07:15:00 Negative (01/10/19 1:15 AM)[facility] - WELZLNNF5473-73-64 07:15:00 Negative (01/10/19 1:15 AM)[facility]VIRAL - YHGXADHF9760-20-80 07:15:00 Negative (01/10/19 1:15 AM)[facility]annCARDIAC APKCQLK9215-26-05 05:21:00 0.09[facility]annCHEM JPAAG7304-98-31 05:21:007.1[facility]annCHEM PANEL 2019-01-10 05:21:003.1[facility]annCHEM HIWVV6017-91-36 05:21:0027[facility]annCHEM JTZIE7910-38-07 05:21:0027[facility]annCHEM DEHUS4549-94-37 05:21:81101Vusvmbqa HermannCHEM EUINE9457-16-22 05:21:000.5[facility]annCHEM PYKZA7930-26-64 05:21:00 Test Item Value Reference Range Interpretation Comments B/C Ratio (test code = B/C Ratio) 17 1 6-25 [facility]CHE[facility] SFPCC0632-61-37 05:21:004.0[facility]annCHEM PANEL 2019-01-10 05:21:00 Test Item Value Reference Range Interpretation Comments A/G Ratio (test code = A/G Ratio) 0.8 1 0.7-1.6 [facility]CHE[facility] [id number] 05:21:000.9[facility]annHEMATOLOGY 2019-01-10 05:21:00 Test Item Value Reference Range Interpretation Comments INR (test code = INR) 1.08 1 0.85-1.17 [facility] [id number] 05:21:00 Test Item Value Reference Range Interpretation Comments PT (test code = PT) 13.8 s 12.0-14.7 [facility] BsnvzcpVPDLDFWQKR6442-28-98 05:21:00 Test Item Value Reference Range Interpretation Comments PTT (test code = PTT) 23.3 s 22.9-35.8 [facility] VhpahpnQEYKRKMLOI0408-40-09 05:21:000.2[facility]annCARDIAC ENZYMES 2019-01-10 05:21:000.09[facility]annCHEM [id number] 05:21:007.1[facility]annCHEM [id number] 05:21:003.1[facility]annCHEM [id number] 05:21:0027[facility]annCHEM [id number] 05:21:0027[facility]annCHEM [id number] 05:21:38555Bifiiuhe HermannCHEM [id number] 05:21:000.5 [facility] [id number] 05:21:00 Test Item Value Reference Range Interpretation Comments B/C Ratio (test code = B/C Ratio) 17 1 6-25 [facility] HermannCHEM [id number] 05:21:004.0[facility]annCHEM PANEL 2019-01-10 05:21:00 Test Item Value Reference Range Interpretation Comments A/G Ratio (test code = A/G Ratio) 0.8 1 0.7-1.6 [facility] [id number] 05:21:000.9[facility]HEMATOLOGY 2019-01-10 05:21:00 Test Item Value Reference Range Interpretation Comments INR (test code = INR) 1.08 1 0.85-1.17 [id number] 05:21:00 Test Item Value Reference Range Interpretation Comments PT (test code = PT) 13.8 s 12.0-14.7 [facility]CvsiwbnQBUDOUXCJG8190-79-67 05:21:00 Test Item Value Reference Range Interpretation Comments PTT (test code = PTT) 23.3 s 22.9-35.8 [facility] BtlkizqIEQNNVVYZA5905-16-94 05:21:000.2[facility]annCARDIAC ENZYMES 2019-01-10 05:21:000.09[facility]annCHEM [id number] 05:21:007.1[facility]annCHEM [id number] 05:21:003.1[facility]annCHEM [id number] 05:21:0027[facility]annCHEM [id number] 05:21:0027[facility]annCHEM [id number] 05:21:37289Csmspfmo HermannCHEM [id number] 05:21:000.5 [facility] [id number] 05:21:00 Test Item Value Reference Range Interpretation Comments B/C Ratio (test code = B/C Ratio) 17 1 6-25 [facility] [id number] 05:21:004.0[facility]annCHE[facility] PANEL 2019-01-10 05:21:00 Test Item Value Reference Range Interpretation Comments A/G Ratio (test code = A/G Ratio) 0.8 1 0.7-1.6 [facility] [id number] 05:21:000.9[facility] 2019-01-10 05:21:00 Test Item Value Reference Range Interpretation Comments INR (test code = INR) 1.08 1 0.85-1.17 [facility]NG9997[facility]20-68 05:21:00 Test Item Value Reference Range Interpretation Comments PT (test code = PT) 13.8 s 12.0-14.7 [facility]JkjqrbnHCRFVOHITU3648-78-94 05:21:00 Test Item Value Reference Range Interpretation Comments PTT (test code = PTT) 23.3 s 22.9-35.8 [facility] CenterLnzlldiVXADINKSAK8188-24-72 05:21:000.2[facility]
[2021-02-21] MEDS ORDERED: ONDANSETRON 4 MG/2 ML VIAL IV PRN (15:55)
[2021-02-21] MEDS ORDERED: LORazepam 2 MG/ML VIAL IV PRN (15:59)
[2021-02-21 16:44] VITALS: O2SAT 94; BMI 23.8
[2021-02-21 17:39] LABS: Urine Appearance CLEAR (Clear); Urine Bilirubin NEGATIVE (Negative); Urine Blood NEGATIVE (Negative); Urine Color DK YELLOW (Yellow); Urine Glucose NEGATIVE (Negative); Urine Microscopic Reflex NO UMIC; Urine Protein NEGATIVE (Negative); Urine Specific Gravity 1.025 (1.005-1.030)
[2021-02-21 18:42] LABS: Absolute Lymphocytes (CBC) 0.9 K/uL (0.7-4.9); Hematocrit 31.8 % (39.6-49.0); Lymphocytes % 24.5 % (15.3-44.8); MPV 8.9 fL (7.6-11.3); RBC Red Blood Cell Count 3.62 M/uL (4.33-5.43)
[2021-02-21] MEDS: D5 0.9 NS 1,000 ML IV SCH (18:52)
--- NOTE | 2021-02-21 19:32 | RAD REPORT ---
EXAM DESCRIPTION: RAD - Abdomen W Erect - 02/21/2021 7:15 pm CLINICAL HISTORY: abdominal pain Pain COMPARISON: Abdomen W Erect dated 02/03/2021 FINDINGS: The bowel gas pattern is non-obstructive. No evidence of free air or pneumatosis. Mild non specific gaseous distention of bowel loops noted. No suspicious calcifications. No significant bony findings. IMPRESSION: Nonspecific gaseous distention of bowel loops could indicate a mild ileus.
[2021-02-21 19:59] LABS: BUN Blood Urea Nitrogen 11 mg/dL (7-18); Glucose Level 95 mg/dL (74-106); Sodium Level 139 mmol/L (136-145)
[2021-02-21 20:02] LABS: Potassium 2.7 mmol/L (3.5-5.1)
[2021-02-21 20:09] LABS: Bicarbonate 27 mmol/L (21-32)
[2021-02-21] MEDS: LACTULOSE 20 GM/30 ML UCUP PO SCH (20:56)
[2021-02-21] MEDS: APIXABAN 5 MG TABLET PO SCH (20:56)
[2021-02-21] MEDS ORDERED: KCL 20 MEQ/100 mL IVPB 20 MEQ/100 ML BAG IV ONE (21:00)
[2021-02-21] MEDS ORDERED: KCL 20 MEQ/100 mL IVPB 20 MEQ/100 ML BAG IV SCH (23:00)
[2021-02-21] MEDS: MORPHINE 4 MG/ML SYR IV PRN (23:28)
[2021-02-22] MEDS: CLINDAMYCIN PHOSPHATE 600 MG in NA CHLORIDE 0.9% 50 ML IV SCH ×4 (01:00→17:21)
[2021-02-22] MEDS ORDERED: KCL 20 MEQ/100 mL IVPB 20 MEQ/100 ML BAG IV SCH (01:28)
[2021-02-22] MEDS: D5 0.9 NS 1,000 ML IV SCH ×3 (02:00→22:00)
[2021-02-22] MEDS: [UNRECOGNIZED DRUG - OTHER] PO SCH ×2 (08:00→17:00)
[2021-02-22] MEDS: LACTULOSE 20 GM/30 ML UCUP PO SCH ×2 (10:08→20:32)
[2021-02-22] MEDS: APIXABAN 5 MG TABLET PO SCH ×2 (10:08→20:32)
[2021-02-22] MEDS: MORPHINE 4 MG/ML SYR IV PRN ×3 (10:24→20:50)
--- NOTE | 2021-02-22 11:21 | HP ---
Date of Admission: 02/21/2021 Entrance Complaint: Nausea, vomiting, anorexia, generalized malaise. History Of Present Illness: The patient has had the above-outlined symptoms for the past few weeks. Was just recently diagnosed with lymphoma following a pelvic node biopsy a couple of weeks ago and ady maurice has been hospitalized a couple of occasions over the past month or so for supportive therapy. He w as discharged 3 or 4 days ago as at that time he could tolerate some fluids. His pain was modified a nd he felt he could handle that at home. Over the weekend his condition generally deteriorated. He had much difficulty swallowing once again and felt that his intake was not adequate. During this yogesh maurice he did not have any diarrhea. His pain which was generalized he felt was no longer controlled with tramadol alone and he was therefore readmitted for supportive treatment with him now having a defini tive diagnosis, consultation, and possibly transfer will be obtained with [facility] as we do not simpson ve any oncologist available locally. Past History: Other than the above-outlined problem, the patient also has a history of coronary fadia ry disease including stent placement and was actually in [place] a couple of months ago for atrial fi brillation. At that time he was placed on Eliquis, sotalol, Lasix for mild CHF. He has continued to take at home despite his inability to swallow, solids and complete liquids. 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 Family History: Noncontributory. Social History: Nonsmoker, nondrinker. Physical Examination: General: The patient is a rather uncomfortable appearing orientated elderly male. Vital Signs: Stable. Head and Neck: Normocephalic. Pupils equal, react to light and accommodation. Fundi negative. Tra chan midline. Thyroid not palpable. ENT negative. Chest: Clear to P and A. Cardiovascular: PMI midclavicular line. Heart: Sounds normal. Peripheral pulses present and equal bilaterally. Abdomen: No organomegaly. Minimal discomfort in mid epigastric area. No guarding, rebound, tendern ess, or rigidity. Bowel sounds hyperactive. Extremities: Marked dehydration, good tone and movement bilaterally. Reflexes physiologic. Rectal: Deferred. Impression: Dehydration, basal cell lymphoma, CAD, atrial fibrillation. Plan: The patient will be admitted, hydrated. Pain management will be instituted. Physical therapy will also be consulted. Since there is no oncologist present, referral transfer process will be ins tituted with [facility]. /JAYLEEN Voice ID: [id number]
--- NOTE | 2021-02-22 11:21 | PN ---
Date of Progress Note: 02/22/2021 The patient seems better this morning. He stated he is not aching and hurting like he did when he ca me in. Obviously, his symptoms were aggravated by marked hypokalemia, was down to 2.7. Replacement is taking place. Earlier this morning, it was 3.1. Physical Therapy is starting to work with him as well. Vital signs are stable. Discuss transferring to [facility] and is in agreement with this. We will also discuss the feeding tube, J tube with the surgeon who previously consulted with him, and he said he will be not available until Sunday. This has not come up in discussion with the patient on this admission to date. The patient is trying liquids which he has been somewhat successful. His case has been discussed with [facility] and transfer process has been initiated. HR/MODL Voice ID: [id number] Report ID: [id number]
[2021-02-22 16:44] LABS: Absolute Lymphocytes (CBC) 0.9 K/uL (0.7-4.9); Hematocrit 32.8 % (39.6-49.0); Lymphocytes % 25.9 % (15.3-44.8); MPV 8.4 fL (7.6-11.3)
[2021-02-22 16:52] LABS: BUN Blood Urea Nitrogen 6 mg/dL (7-18); Bicarbonate 27 mmol/L (21-32); Glucose Level 99 mg/dL (74-106); Potassium 3.2 mmol/L (3.5-5.1); Sodium Level 142 mmol/L (136-145)
[2021-02-23] MEDS: D5 0.9 NS 1,000 ML IV SCH (01:31)
[2021-02-23] MEDS ORDERED: CLINDAMYCIN IV 150 MG/ML (6 mL) VIAL ONE (01:39)
[2021-02-23] MEDS: CLINDAMYCIN PHOSPHATE 600 MG in NA CHLORIDE 0.9% 50 ML IV SCH ×2 (01:40→09:16)
[2021-02-23] MEDS: MORPHINE 4 MG/ML SYR IV PRN (01:40)
[2021-02-23] MEDS: [UNRECOGNIZED DRUG - OTHER] PO SCH (08:00)
[2021-02-23 08:31] VITALS: BP 132/62; TEMP 97
[2021-02-23] MEDS ORDERED: D5 0.9 NS 1,000 ML IV SCH (08:49)
[2021-02-23] MEDS: APIXABAN 5 MG TABLET PO SCH (09:15)
[2021-02-23] MEDS: LACTULOSE 20 GM/30 ML UCUP PO SCH (09:16)
--- NOTE | 2021-02-23 09:38 | PN ---
Date of Progress Note: 02/22/2021 The patient is basically status quo. Potassium has come back up somewhat; however, repeat blood coun t this morning. He is tolerating some fluids and awaiting transfer to [facility]. The patient did notice some tenderness in the left lateral upper portion of the abdomen and on examination does revea l a slightly tender mass. The areas of cellulitis on his finger have improved considerably _. Continue with clindamycin IV and await bed availability in [place]. HR/MODL Voice ID: [id number] Report ID: [id number]
[2021-02-23 10:11] LABS: Absolute Lymphocytes (CBC) 0.7 K/uL (0.7-4.9); Lymphocytes % 26.2 % (15.3-44.8); MPV 8.1 fL (7.6-11.3); RBC Red Blood Cell Count 3.48 M/uL (4.33-5.43)
[2021-02-23 10:24] LABS: BUN Blood Urea Nitrogen 4 mg/dL (7-18); Bicarbonate 26 mmol/L (21-32); Glucose Level 116 mg/dL (74-106); Potassium 3.2 mmol/L (3.5-5.1); Sodium Level 141 mmol/L (136-145)
[2021-02-23 11:05] LABS: Blood Morphology Comment NOT SEEN (NOT SEEN); Platelet Estimate ADEQ; White Blood Cell Scan OK (OK)
== END 2021-02-23 12:03 | disposition home or self-care (01) | DRG 641 ==
LOC: 2ND 14:41 → OBSVTOIN 02-22 14:52
PROVIDERS: ADMIT Family Medicine; ATTEND Family Medicine
DX: E86.0 Dehydration (principal); C85.90 Non-Hodgkin lymphoma, unspecified, unspecified site; L03.019 Cellulitis of unspecified finger; E87.6 Hypokalemia; I25.10 Atherosclerotic heart disease of native coronary artery without angina pectoris; I48.91 Unspecified atrial fibrillation; Z95.5 Presence of coronary angioplasty implant and graft; Z20.822 Contact with and (suspected) exposure to COVID-19
CPT/HCPCS: 36415; 74019; 80048; 81003; 82947; 84132; 85025; 97116; 97161; 97530; G0378; G0379; J3480; J7042; S0077; U0003

== ENCOUNTER 2021-04-11 14:13 | Emergency (ER) | payer OTHER ==
--- OUTSIDE RECORDS SUMMARY | 2021-04-11 14:22 | XMS REPORT | Clinical Summary ---
:1935 Author Organization [facility] MD [facility] Address [address] [place] [address] Care Team Providers Name Role Phone Kuldeep Melgoza MD Unavailable Roshan Sauceda MD Primary Care Provider Ramos Wilson MD Unavailable Rae Navarro MD Unavailable Allergies Active Allergy Reactions Severity Noted Date Comments Cephalexin Anxiety Low 09/04/2018 Codeine Anxiety Low 09/04/2018 Azithromycin Palpitations Low 09/04/2018 Medications Medication Sig Dispensed Refills Start End Date Status Date atorvastatin Take 1 tablet 0 Act neymar (LIPITOR) 80 mg by mouth 4 tablet daily. clopidogrel (PLAVIX) Take 1 tablet 0 Active 75 mg tablet by mouth 4 daily. traMADol (ULTRAM) 50 Take 50 mg by 0 Active mg tablet mouth every 6 (six) hours as needed. famotidine (PEPCID) Take 20 mg by 0 Active 20 mg tablet mouth 2 (two) times a day as needed. tamsulosin (FLOMAX) Take 0.4 mg by 0 Active 0.4 mg 24 hr capsule mouth twice 9 daily. fluoride, sodium, Apply to teeth 51 g Active (PREVIDENT) 1.1 % daily. [place] 9 dental teeth with creamIndications: cream and spit Squamous cell out as carcinoma of scalp directed. (Do not eat, drink or rinse for 30 minutes). amLODIPine (NORVASC) Take 1 tablet 30 tablet 0 Active 5 mg (5 mg) by 1 tabletIndications: mouth daily. Hypertension Hold for systolic blood pressure less than 110 mmHg. carbidopa-levodopa Take 1 tablet 90 tablet 0 Active (SINEMET) 25 mg-100 by mouth 3 1 mg per (three) times tabletIndications: a day. Parkinson's disease sotalol (BETAPACE) Take 1 tablet 60 tablet 0 Active 80 mg (80 mg) by 1 tabletIndications: mouth every 12 Chronic atrial (twelve) fibrillation, not hours. otherwise specified senna-docusate Take 2 tablets 0 Active (SENOKOT-S) 8.6 by mouth twice 2 mg-50 mg daily. tabletIndications: Slow transit constipation polyethylene glycol Take 17 g by 0 Active (MIRALAX) 17 g mouth daily. 2 packetIndications: Slow transit constipation furosemide (LASIX) Take 1 tablet 30 tablet 2 Active 40 mg (40 mg) by 2 tabletIndications: mouth daily. Acute congestive heart failure apixaban (ELIQUIS) 5 Take 1 tablet 60 tablet 2 Active mg (5 mg) by 2 tabletIndications: mouth every 12 Paroxysmal atrial (twelve) fibrillation hours. celecoxib (CeleBREX) Take 1 capsule 5 capsule 0 02/27 Discontinued 200 mg (200 mg) by 9 22 (Stop Ta víctor at capsuleIndications: mouth 2 (two) Discharge) Squamous cell times a day as carcinoma of scalp needed for moderate pain. metoprolol tartrate Take 50 mg by 0 Discontinued (LOPRESSOR) 50 mg mouth twice 22 (Stop Taking at tablet daily. Discharge) aspirin 81 mg EC Take 81 mg by 0 03/24/19 Discontinued tablet mouth daily. 22 (Stop T aking at Discharge) bacitracin 500 Apply 0 03/24/19 Disco ntinued unit/gram ointment topically to 22 (Stop Taking at affected Discharge) area(s) twice daily. diphenhydrAMINE Take 50 mg by 0 03/24/19 Discontinued (BENADRYL) 25 mg mouth nightly 22 (Stop Taking at capsule as needed. 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 He should continue with adaptive physical education specialist apy as he is doing. Education [...] Overview: Added automatically from request for tabitha nickersony [id number] Encounter for other preprocedural examination 09/19/19 Overview: [...] within bilateral vertebral arteries OSH records from [facility] Cardiology reviewed [facility] 05/09/17: LAD prox patent st ent X 2, mid 95% successful PCI to LAD Echocardiogram: 05/08/17: normal LVH, 60- 65%, LVH, aortic valve sclerosis, mild pHTN Stress test 07/09/18: adenosine nuclear s tress: mildly abnormal myocardial perfusion (low risk scan based on my discussion with his home cleaner signs) per Cardiology note 10/02/18 Squamous cell carcinoma of scalp 09/05/2018 Hallucinosis Encounters Date Type Specialty Care Team Description 03/11/2021 Documentation Radiation Oncology Nanette Whiting MD 03/10/2021 Lab Requisition Valente Woodward MD Witson, Anne S., MD 03/09/2021 Documentation Radiation Oncology Nanette Whiting MD 03/09/2021 Documentation Radiation Oncology Nanette Whiting MD 03/09/2021 Orders Only Radiation Oncology Pinkarenx, Diffuse l arge B-cell Nanette Garcia, lymphoma of lym ph nodes of [facility] (Primary Dx) 03/08/2021 Orders Only Lymphoma and Myeloma Britany Tracy, BOTTOM LIQUOR ATTENDANT 03/07/2021 Hospital Encounter Radiation Oncology Roshan Sauceda MD 03/03/2021 Anesthesia Event Anesthesiology Adolph Murphy MD 03/02/2021 Anesthesia Event Radiology Bill Israel MD Joseph, [place], LIVING COACH 03/02/2021 Travel 02/28/2021 Anesthesia Event Radiology Olena Posada CRNA 02/28/2021 Orders Only Radiology Citlaly Haro PA 02/23/2021 Hospital Encounter Lymphoma English, Diffuse l arge B-cell lymphoma of lymph nodes of multiple sites (Primary Dx); - MD Willem Follicular lymp trav; 03/24/2021 PhD Follicular lymphoma grade IIIb of extran odal site; Kaitlin Physical decond itioning; Casiano, Pain due to mal ignancy; Carlyle Means MD Atrial fibrillation, not otherwise speci fied; Carlyle Soto Unexplained fal ls; MD Miguelangel Mild cognitive impairment, so stated; Ariel, Parkinson's dis ease; Brooks Means MD Squamous cell carcinoma of scalp; Noel Fritz, Displaced inte rtrochanteric fracture of right femur, sequela; Hypertension; Chronic atrial fibrillation, not otherwise specified; Altered mental status; Slow transit co nstipation; Acute congestiv e heart failure; Paroxysmal atri al fibrillation; Severe protein- calorie malnutrition, not otherwise specified; Decrease in meryl etite 02/23/2021 Travel 05/20/2020 Orders Only Ashley John, SARS-CoV-2 vacc ination MD Sven after 04/11/2020 Surgical History Surgery Date Site/Laterality Comments BACK SURGERY 02/26/1997 - 02/25/1998 CORONARY ANGIOPLASTY 08/04/2010 2 Xience V ALIZA stents placed WITH STENT PLACEMENT in proximal LAD CORONARY ANGIOPLASTY 05/09/2017 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 hospitlilized x 10 days. requ ired IV abx and debridement IN EXC SKIN MALIG 0.6-1 09/19/2018 Right Procedur e: EXCISION OF CM REMAINDR BODY MALIGNANT LESIO N OF SCALP; Surgeon: Roshan Sauceda MD; Location: MAIN OR; Service: HN - HEAD & NECK SURGERY Medical devices from this surgery are in t he Implants section. IN SUB GRFT 09/19/2018 Right Procedure: APPLI CATION OF F/S/N/H/F/G/M/D /<100SCM SKIN ROJAS BSTITUTE GRAFT TO /<1ST 25 SCM SCALP; Surgeon: Roshan Sauceda MD; Loca tion: MAIN OR; Service: HN - HEAD & NECK SURGERY Medical devices from this surgery are in t he Implants section. IN EXC SKIN MALIG 0.6-1 10/10/2018 Midline Procedur e: EXCISION OF CM REMAINDR BODY MALIGNANT LESIO N OF SCALP; Surgeon: Roshan Sauceda MD; Location: MAIN OR; Service: HN - HEAD & NECK SURGERY Medical devices from this surgery are in t he Implants section. IN FREE MUSC-SKIN FLAP 10/10/2018 Back/Right Procedure : FREE MUSCLE OR W/MICROVASC ANAST MYOCUTANEOUS F LAP WITH MICRVASCULAR TUCKER STOMOSIS; Surgeon: Charles Moreno MD; Location: MAIN O R; Service: PLS - PLASTIC ROJAS RGERY Medical devices from this surgery are in t he Implants section. IN SPLIT GRFT 10/10/2018 Thigh/Right Procedure: SPLIT THICKNESS TRUNK,ARM,LEG <100 SQCM SKIN GRA FT OF TRUNK/ARM OR LEG [id number]; Rojas rgeon: Charles Moreno MD; Loca tion: MAIN OR; Service: PL S - PLASTIC SURGERY Medical devices from this surgery are in t he Implants section. IN CHG FLUOROSCOPY UP TO 10/30/2018 Right Procedu re: FLUOROSCOPY; 1 HOUR PHYSICIAN/QHP Surgeon: Srinivasa Simmons MD; TIME Location: MAIN O R; Service: ORTHOPEDIC ONCOL OGY Medical devices from this surgery are in t he Implants section. IN OPEN FIX 10/30/2018 Hip/Right Procedure: OPEN REDUCTION [...] skin 2017 Basal cell carcinoma of skin 2015 Coronary arteriosclerosis 2011 [place] n 2010 with had chest pains. sp cardiac stents x 2 (reportedly had another [place] durin g procedure). pt was started on Pl avix at that time. in 2018, pt w as tired and had SOB--> abnormal strress test--> sp stent Arthritis bilt knees. needs wa lker to help walk Hypertension Postoperative nausea and vomiting Hearing loss Acute congestive heart failure 02/23/2021 Gastroesophageal reflux disease 02/23/2021 Family History Medical History Relation Name Comments [...] CDT Obstetrics History Last Filed Vital Signs Vital Sign Reading Time Taken Comments Blood Pressure 101/68 03/24/2021 3:29 PM DYE ROOM HELPER Pulse 79 03/24/2021 3:29 PM DYE ROOM HELPER Temperature 37.1 C (98.8 F) 03/24/2021 3:29 PM DYE ROOM HELPER Respiratory Rate 18 03/24/2021 3:29 PM DYE ROOM HELPER Oxygen Saturation 96% 03/24/2021 3:29 PM DYE ROOM HELPER Inhaled Oxygen Concentration - - Weight 65.2 kg (143 lb 11.8 oz) 03/24/2021 4:48 AM DYE ROOM HELPER Height 170 cm (5' 6.93") 02/24/2021 6:09 AM DYE ROOM HELPER Body Mass Index 22.56 02/24/2021 6:09 AM DYE ROOM HELPER Plan of Treatment Health Maintenance Due Date Last Done Comments COVID-19 Vaccination (1) 1947 Implants Implanted Type Area Nutritional Chemist Device Shelf Model / Identifier Expiration Serial / Date Lot Science Teacher Microvascular Anastomotic Device 2.5mm - [id number] Card ioPulm Scalp Accion JOHN 04/24/2023 [id number] / Implanted: Qty: 1 on 10/10/2018 by Charles Moreno MD at [facility] / [id number] Biomet Hip Frac Nail 11*400mm Rt Implant Right: [employer] 06/10/2028 [id number] / Implanted: Qty: 1 on 10/30/2018 by Ramón Simmons MD at [facility] Femur / [id number] Biomet Hf-Nail Lag Screw 10.5*105mm Implant Right: [employer] 08/07/2027 [id number] / Implanted: Qty: 1 on 10/30/2018 by Ramón Simmons MD at [facility] Fem[employer] / [id number] Biomet Cortical Bone Screw 5*54mm Implant Right: [employer] 06/26/2026 [id number] / Implanted: Qty: 1 on 10/30/2018 by Ramón Simmons MD at [facility] Femur / [id number] Integra Bp Dural Graft 4x5cm - Sna Skin/Tissue [employer]TE[employer] 05/26/2020 [id number] / Implanted: Qty: 1 on 09/19/2018 by Roshan Sauceda MD at [facility] LIFESCIENCES NA / [id number] Cardiac Stents Description: 2010 x2,, 2017 x1 Pins Description: pins on the left elbow Procedures Procedure Name Priority Date/Time Associated Diagnosis Comme nts ANION GAP AM 03/24/2021 Results for 4:34 AM DYE ROOM HELPER this procedure are in the results section. .GLOMERULAR FILTRATION AM 03/24/2021 Resul ts for RATE 4:34 AM DYE ROOM HELPER this procedure are in the results section. SERUM CREATININE AM 03/24/2021 Results for 4:34 AM DYE ROOM HELPER this procedure are in the results section. MANUAL DIFFERENTIAL AM 03/24/2021 Results for 4:34 AM DYE ROOM HELPER this procedure are in the results section. Results CBC AM 03/24/2021 Results for 4:34 AM DYE ROOM HELPER this procedure are in the results section. ALKALINE PHOSPHATASE AM 03/24/2021 Results for 4:34 AM DYE ROOM HELPER this procedure are in the results section. ASPARTATE AM 03/24/2021 Results for AMINOTRANSFERASE 4:34 AM DYE ROOM HELPER this proced ure are in the results section. ALANINE AM 03/24/2021 Results for AMINOTRANSFERASE 4:34 AM DYE ROOM HELPER this proced ure are in the results section. MAGNESIUM LEVEL AM 03/24/2021 Results for 4:34 AM DYE ROOM HELPER this procedure are in the results section. CALCIUM LEVEL TOTAL AM 03/24/2021 Results for 4:34 AM DYE ROOM HELPER this procedure are in the results section. ALBUMIN LEVEL AM 03/24/2021 Results for 4:34 AM DYE ROOM HELPER this procedure are in the results section. FRACTIONATED BILIRUBIN AM 03/24/2021 Resul ts for 4:34 AM DYE ROOM HELPER this procedure are in the results section. PHOSPHORUS LEVEL AM 03/24/2021 Results for 4:34 AM DYE ROOM HELPER this procedure are in the results section. URIC ACID AM 03/24/2021 Results for 4:34 AM DYE ROOM HELPER this procedure are in the results section. LACTATE DEHYDROGENASE AM 03/24/2021 Result s for 4:34 AM DYE ROOM HELPER this procedure are in the results section. GLUCOSE, RANDOM AM 03/24/2021 Results for 4:34 AM DYE ROOM HELPER this procedure are in the results section. SERUM CREATININE AM 03/24/2021 4:34 AM DYE ROOM HELPER BLOOD UREA NITROGEN AM 03/24/2021 Results for 4:34 AM DYE ROOM HELPER this procedure are in the results section. CARBON DIOXIDE LEVEL AM 03/24/2021 Results for 4:34 AM DYE ROOM HELPER this procedure are in the results section. CHLORIDE LEVEL AM 03/24/2021 Results for 4:34 AM DYE ROOM HELPER this procedure are in the results section. POTASSIUM LEVEL AM 03/24/2021 Results for 4:34 AM DYE ROOM HELPER this procedure are in the results section. SODIUM LEVEL AM 03/24/2021 Results for 4:34 AM DYE ROOM HELPER this procedure are in the results section. COMPLETE BLOOD COUNT AM 03/24/2021 W/ DIFFERENTIAL 4:34 AM DYE ROOM HELPER COVID-19 (SARS-COV-2) Now 03/23/2021 Result s for PCR-ASYMPTOMATIC MC 4:42 PM DYE ROOM HELPER this pro cedure are in the results section. ANION GAP AM 03/23/2021 Results for 5:21 AM DYE ROOM HELPER this procedure are in the results section. .GLOMERULAR FILTRATION AM 03/23/2021 Resul ts for RATE 5:21 AM DYE ROOM HELPER this procedure are in the results section. SERUM CREATININE AM 03/23/2021 Results for 5:21 AM DYE ROOM HELPER this procedure are in the results section. MANUAL DIFFERENTIAL AM 03/23/2021 Results for 5:21 AM DYE ROOM HELPER this procedure are in the results section. Results CBC AM 03/23/2021 Results for 5:21 AM DYE ROOM HELPER this procedure are in the results section. ALKALINE PHOSPHATASE AM 03/23/2021 Results for 5:21 AM DYE ROOM HELPER this procedure are in the results section. ASPARTATE AM 03/23/2021 Results for AMINOTRANSFERASE 5:21 AM DYE ROOM HELPER this proced ure are in the results section. ALANINE AM 03/23/2021 Results for AMINOTRANSFERASE 5:21 AM DYE ROOM HELPER this proced ure are in the results section. MAGNESIUM LEVEL AM 03/23/2021 Results for 5:21 AM DYE ROOM HELPER this procedure are in the results section. CALCIUM LEVEL TOTAL AM 03/23/2021 Results for 5:21 AM DYE ROOM HELPER this procedure are in the results section. ALBUMIN LEVEL AM 03/23/2021 Results for 5:21 AM DYE ROOM HELPER this procedure are in the results section. FRACTIONATED BILIRUBIN AM 03/23/2021 Resul ts for 5:21 AM DYE ROOM HELPER this procedure are in the results section. PHOSPHORUS LEVEL AM 03/23/2021 Results for 5:21 AM DYE ROOM HELPER this procedure are in the results section. URIC ACID AM 03/23/2021 Results for 5:21 AM DYE ROOM HELPER this procedure are in the results section. LACTATE DEHYDROGENASE AM 03/23/2021 Result s for 5:21 AM DYE ROOM HELPER this procedure are in the results section. GLUCOSE, RANDOM AM 03/23/2021 Results for 5:21 AM DYE ROOM HELPER this procedure are in the results section. SERUM CREATININE AM 03/23/2021 5:21 AM DYE ROOM HELPER BLOOD UREA NITROGEN AM 03/23/2021 Results for 5:21 AM DYE ROOM HELPER this procedure are in the results section. CARBON DIOXIDE LEVEL AM 03/23/2021 Results for 5:21 AM DYE ROOM HELPER this procedure are in the results section. CHLORIDE LEVEL AM 03/23/2021 Results for 5:21 AM DYE ROOM HELPER this procedure are in the results section. POTASSIUM LEVEL AM 03/23/2021 Results for 5:21 AM DYE ROOM HELPER this procedure are in the results section. SODIUM LEVEL AM 03/23/2021 Results for 5:21 AM DYE ROOM HELPER this procedure are in the results section. COMPLETE BLOOD COUNT AM 03/23/2021 W/ DIFFERENTIAL 5:21 AM DYE ROOM HELPER TMP INTERPRETATION Routine 03/22/2021 Results f or ANTIBODY SCREEN 4:30 AM DYE ROOM HELPER this procedu re NEGATIVE are in the results section. CLOT EXPIRATION DATE Routine 03/22/2021 Results for 4:30 AM DYE ROOM HELPER this procedure are in the results section. ANION GAP AM 03/22/2021 Results for 4:30 AM DYE ROOM HELPER this procedure are in the results section. .GLOMERULAR FILTRATION AM 03/22/2021 Resul ts for RATE 4:30 AM DYE ROOM HELPER this procedure are in the results section. SERUM CREATININE AM 03/22/2021 Results for 4:30 AM DYE ROOM HELPER this procedure are in the results section. MANUAL DIFFERENTIAL AM 03/22/2021 Results for 4:30 AM DYE ROOM HELPER this procedure are in the results section. Results CBC AM 03/22/2021 Results for 4:30 AM DYE ROOM HELPER this procedure are in the results section. ANTIBODY SCREEN Routine 03/22/2021 Results for 4:30 AM DYE ROOM HELPER this procedure are in the results section. ABORH Routine 03/22/2021 Results for 4:30 AM DYE ROOM HELPER this procedure are in the results section. TYPE AND SCREEN Routine 03/22/2021 4:30 AM DYE ROOM HELPER ALKALINE PHOSPHATASE AM 03/22/2021 Results for 4:30 AM DYE ROOM HELPER this procedure are in the results section. ASPARTATE AM 03/22/2021 Results for AMINOTRANSFERASE 4:30 AM DYE ROOM HELPER this proced ure are in the results section. ALANINE AM 03/22/2021 Results for AMINOTRANSFERASE 4:30 AM DYE ROOM HELPER this proced ure are in the results section. MAGNESIUM LEVEL AM 03/22/2021 Results for 4:30 AM DYE ROOM HELPER this procedure are in the results section. CALCIUM LEVEL TOTAL AM 03/22/2021 Results for 4:30 AM DYE ROOM HELPER this procedure are in the results section. ALBUMIN LEVEL AM 03/22/2021 Results for 4:30 AM DYE ROOM HELPER this procedure are in the results section. FRACTIONATED BILIRUBIN AM 03/22/2021 Resul ts for 4:30 AM DYE ROOM HELPER this procedure are in the results section. PHOSPHORUS LEVEL AM 03/22/2021 Results for 4:30 AM DYE ROOM HELPER this procedure are in the results section. URIC ACID AM 03/22/2021 Results for 4:30 AM DYE ROOM HELPER this procedure are in the results section. LACTATE DEHYDROGENASE AM 03/22/2021 Result s for 4:30 AM DYE ROOM HELPER this procedure are in the results section. GLUCOSE, RANDOM AM 03/22/2021 Results for 4:30 AM DYE ROOM HELPER this procedure are in the results section. SERUM CREATININE AM 03/22/2021 4:30 AM DYE ROOM HELPER BLOOD UREA NITROGEN AM 03/22/2021 Results for 4:30 AM DYE ROOM HELPER this procedure are in the results section. CARBON DIOXIDE LEVEL AM 03/22/2021 Results for 4:30 AM DYE ROOM HELPER this procedure are in the results section. CHLORIDE LEVEL AM 03/22/2021 Results for 4:30 AM DYE ROOM HELPER this procedure are in the results section. POTASSIUM LEVEL AM 03/22/2021 Results for 4:30 AM DYE ROOM HELPER this procedure are in the results section. SODIUM LEVEL AM 03/22/2021 Results for 4:30 AM DYE ROOM HELPER this procedure are in the results section. COMPLETE BLOOD COUNT AM 03/22/2021 W/ DIFFERENTIAL 4:30 AM DYE ROOM HELPER ANION GAP AM 03/21/2021 Results for 4:17 AM DYE ROOM HELPER this procedure are in the results section. .GLOMERULAR FILTRATION AM 03/21/2021 Resul ts for RATE 4:17 AM DYE ROOM HELPER this procedure are in the results section. SERUM CREATININE AM 03/21/2021 Results for 4:17 AM DYE ROOM HELPER this procedure are in the results section. MANUAL DIFFERENTIAL AM 03/21/2021 Results for 4:17 AM DYE ROOM HELPER this procedure are in the results section. Results CBC AM 03/21/2021 Results for 4:17 AM DYE ROOM HELPER this procedure are in the results section. ALKALINE PHOSPHATASE AM 03/21/2021 Results for 4:17 AM DYE ROOM HELPER this procedure are in the results section. ASPARTATE AM 03/21/2021 Results for AMINOTRANSFERASE 4:17 AM DYE ROOM HELPER this proced ure are in the results section. ALANINE AM 03/21/2021 Results for AMINOTRANSFERASE 4:17 AM DYE ROOM HELPER this proced ure are in the results section. MAGNESIUM LEVEL AM 03/21/2021 Results for 4:17 AM DYE ROOM HELPER this procedure are in the results section. CALCIUM LEVEL TOTAL AM 03/21/2021 Results for 4:17 AM DYE ROOM HELPER this procedure are in the results section. ALBUMIN LEVEL AM 03/21/2021 Results for 4:17 AM DYE ROOM HELPER this procedure are in the results section. FRACTIONATED BILIRUBIN AM 03/21/2021 Resul ts for 4:17 AM DYE ROOM HELPER this procedure are in the results section. PHOSPHORUS LEVEL AM 03/21/2021 Results for 4:17 AM DYE ROOM HELPER this procedure are in the results section. URIC ACID AM 03/21/2021 Results for 4:17 AM DYE ROOM HELPER this procedure are in the results section. LACTATE DEHYDROGENASE AM 03/21/2021 Result s for 4:17 AM DYE ROOM HELPER this procedure are in the results section. GLUCOSE, RANDOM AM 03/21/2021 Results for 4:17 AM DYE ROOM HELPER this procedure are in the results section. SERUM CREATININE AM 03/21/2021 4:17 AM DYE ROOM HELPER BLOOD UREA NITROGEN AM 03/21/2021 Results for 4:17 AM DYE ROOM HELPER this procedure are in the results section. CARBON DIOXIDE LEVEL AM 03/21/2021 Results for 4:17 AM DYE ROOM HELPER this procedure are in the results section. CHLORIDE LEVEL AM 03/21/2021 Results for 4:17 AM DYE ROOM HELPER this procedure are in the results section. POTASSIUM LEVEL AM 03/21/2021 Results for 4:17 AM DYE ROOM HELPER this procedure are in the results section. SODIUM LEVEL AM 03/21/2021 Results for 4:17 AM DYE ROOM HELPER this procedure are in the results section. COMPLETE BLOOD COUNT AM 03/21/2021 W/ DIFFERENTIAL 4:17 AM DYE ROOM HELPER ANION GAP AM 03/20/2021 Results for 4:58 AM DYE ROOM HELPER this procedure are in the results section. .GLOMERULAR FILTRATION AM 03/20/2021 Resul ts for RATE 4:58 AM DYE ROOM HELPER this procedure are in the results section. SERUM CREATININE AM 03/20/2021 Results for 4:58 AM DYE ROOM HELPER this procedure are in the results section. MANUAL DIFFERENTIAL AM 03/20/2021 Results for 4:58 AM DYE ROOM HELPER this procedure are in the results section. Results CBC AM 03/20/2021 Results for 4:58 AM DYE ROOM HELPER this procedure are in the results section. ALKALINE PHOSPHATASE AM 03/20/2021 Results for 4:58 AM DYE ROOM HELPER this procedure are in the results section. ASPARTATE AM 03/20/2021 Results for AMINOTRANSFERASE 4:58 AM DYE ROOM HELPER this proced ure are in the results section. ALANINE AM 03/20/2021 Results for AMINOTRANSFERASE 4:58 AM DYE ROOM HELPER this proced ure are in the results section. MAGNESIUM LEVEL AM 03/20/2021 Results for 4:58 AM DYE ROOM HELPER this procedure are in the results section. CALCIUM LEVEL TOTAL AM 03/20/2021 Results for 4:58 AM DYE ROOM HELPER this procedure are in the results section. ALBUMIN LEVEL AM 03/20/2021 Results for 4:58 AM DYE ROOM HELPER this procedure are in the results section. FRACTIONATED BILIRUBIN AM 03/20/2021 Resul ts for 4:58 AM DYE ROOM HELPER this procedure are in the results section. PHOSPHORUS LEVEL AM 03/20/2021 Results for 4:58 AM DYE ROOM HELPER this procedure are in the results section. URIC ACID AM 03/20/2021 Results for 4:58 AM DYE ROOM HELPER this procedure are in the results section. LACTATE DEHYDROGENASE AM 03/20/2021 Result s for 4:58 AM DYE ROOM HELPER this procedure are in the results section. GLUCOSE, RANDOM AM 03/20/2021 Results for 4:58 AM DYE ROOM HELPER this procedure are in the results section. SERUM CREATININE AM 03/20/2021 4:58 AM DYE ROOM HELPER BLOOD UREA NITROGEN AM 03/20/2021 Results for 4:58 AM DYE ROOM HELPER this procedure are in the results section. CARBON DIOXIDE LEVEL AM 03/20/2021 Results for 4:58 AM DYE ROOM HELPER this procedure are in the results section. CHLORIDE LEVEL AM 03/20/2021 Results for 4:58 AM DYE ROOM HELPER this procedure are in the results section. POTASSIUM LEVEL AM 03/20/2021 Results for 4:58 AM DYE ROOM HELPER this procedure are in the results section. SODIUM LEVEL AM 03/20/2021 Results for 4:58 AM DYE ROOM HELPER this procedure are in the results section. COMPLETE BLOOD COUNT AM 03/20/2021 W/ DIFFERENTIAL 4:58 AM DYE ROOM HELPER TMP INTERPRETATION Routine 03/19/2021 Results f or ANTIBODY SCREEN 5:09 AM DYE ROOM HELPER this procedu re NEGATIVE are in the results section. CLOT EXPIRATION DATE Routine 03/19/2021 Results for 5:09 AM DYE ROOM HELPER this procedure are in the results section. ANION GAP AM 03/19/2021 Results for 5:09 AM DYE ROOM HELPER this procedure are in the results section. .GLOMERULAR FILTRATION AM 03/19/2021 Resul ts for RATE 5:09 AM DYE ROOM HELPER this procedure are in the results section. SERUM CREATININE AM 03/19/2021 Results for 5:09 AM DYE ROOM HELPER this procedure are in the results section. MANUAL DIFFERENTIAL AM 03/19/2021 Results for 5:09 AM DYE ROOM HELPER this procedure are in the results section. Results CBC AM 03/19/2021 Results for 5:09 AM DYE ROOM HELPER this procedure are in the results section. ANTIBODY SCREEN Routine 03/19/2021 Results for 5:09 AM DYE ROOM HELPER this procedure are in the results section. ABORH Routine 03/19/2021 Results for 5:09 AM DYE ROOM HELPER this procedure are in the results section. TYPE AND SCREEN Routine 03/19/2021 5:09 AM DYE ROOM HELPER ALKALINE PHOSPHATASE AM 03/19/2021 Results for 5:09 AM DYE ROOM HELPER this procedure are in the results section. ASPARTATE AM 03/19/2021 Results for AMINOTRANSFERASE 5:09 AM DYE ROOM HELPER this proced ure are in the results section. ALANINE AM 03/19/2021 Results for AMINOTRANSFERASE 5:09 AM DYE ROOM HELPER this proced ure are in the results section. MAGNESIUM LEVEL AM 03/19/2021 Results for 5:09 AM DYE ROOM HELPER this procedure are in the results section. CALCIUM LEVEL TOTAL AM 03/19/2021 Results for 5:09 AM DYE ROOM HELPER this procedure are in the results section. ALBUMIN LEVEL AM 03/19/2021 Results for 5:09 AM DYE ROOM HELPER this procedure are in the results section. FRACTIONATED BILIRUBIN AM 03/19/2021 Resul ts for 5:09 AM DYE ROOM HELPER this procedure are in the results section. PHOSPHORUS LEVEL AM 03/19/2021 Results for 5:09 AM DYE ROOM HELPER this procedure are in the results section. URIC ACID AM 03/19/2021 Results for 5:09 AM DYE ROOM HELPER this procedure are in the results section. LACTATE DEHYDROGENASE AM 03/19/2021 Result s for 5:09 AM DYE ROOM HELPER this procedure are in the results section. GLUCOSE, RANDOM AM 03/19/2021 Results for 5:09 AM DYE ROOM HELPER this procedure are in the results section. SERUM CREATININE AM 03/19/2021 5:09 AM DYE ROOM HELPER BLOOD UREA NITROGEN AM 03/19/2021 Results for 5:09 AM DYE ROOM HELPER this procedure are in the results section. CARBON DIOXIDE LEVEL AM 03/19/2021 Results for 5:09 AM DYE ROOM HELPER this procedure are in the results section. CHLORIDE LEVEL AM 03/19/2021 Results for 5:09 AM DYE ROOM HELPER this procedure are in the results section. POTASSIUM LEVEL AM 03/19/2021 Results for 5:09 AM DYE ROOM HELPER this procedure are in the results section. SODIUM LEVEL AM 03/19/2021 Results for 5:09 AM DYE ROOM HELPER this procedure are in the results section. COMPLETE BLOOD COUNT AM 03/19/2021 W/ DIFFERENTIAL 5:09 AM DYE ROOM HELPER ANION GAP AM 03/18/2021 Results for 4:01 AM DYE ROOM HELPER this procedure are in the results section. .GLOMERULAR FILTRATION AM 03/18/2021 Resul ts for RATE 4:01 AM DYE ROOM HELPER this procedure are in the results section. SERUM CREATININE AM 03/18/2021 Results for 4:01 AM DYE ROOM HELPER this procedure are in the results section. MANUAL DIFFERENTIAL AM 03/18/2021 Results for 4:01 AM DYE ROOM HELPER this procedure are in the results section. Results CBC AM 03/18/2021 Results for 4:01 AM DYE ROOM HELPER this procedure are in the results section. ALKALINE PHOSPHATASE AM 03/18/2021 Results for 4:01 AM DYE ROOM HELPER this procedure are in the results section. ASPARTATE AM 03/18/2021 Results for AMINOTRANSFERASE 4:01 AM DYE ROOM HELPER this proced ure are in the results section. ALANINE AM 03/18/2021 Results for AMINOTRANSFERASE 4:01 AM DYE ROOM HELPER this proced ure are in the results section. MAGNESIUM LEVEL AM 03/18/2021 Results for 4:01 AM DYE ROOM HELPER this procedure are in the results section. CALCIUM LEVEL TOTAL AM 03/18/2021 Results for 4:01 AM DYE ROOM HELPER this procedure are in the results section. ALBUMIN LEVEL AM 03/18/2021 Results for 4:01 AM DYE ROOM HELPER this procedure are in the results section. FRACTIONATED BILIRUBIN AM 03/18/2021 Resul ts for 4:01 AM DYE ROOM HELPER this procedure are in the results section. PHOSPHORUS LEVEL AM 03/18/2021 Results for 4:01 AM DYE ROOM HELPER this procedure are in the results section. URIC ACID AM 03/18/2021 Results for 4:01 AM DYE ROOM HELPER this procedure are in the results section. LACTATE DEHYDROGENASE AM 03/18/2021 Result s for 4:01 AM DYE ROOM HELPER this procedure are in the results section. GLUCOSE, RANDOM AM 03/18/2021 Results for 4:01 AM DYE ROOM HELPER this procedure are in the results section. SERUM CREATININE AM 03/18/2021 4:01 AM DYE ROOM HELPER BLOOD UREA NITROGEN AM 03/18/2021 Results for 4:01 AM DYE ROOM HELPER this procedure are in the results section. CARBON DIOXIDE LEVEL AM 03/18/2021 Results for 4:01 AM DYE ROOM HELPER this procedure are in the results section. CHLORIDE LEVEL AM 03/18/2021 Results for 4:01 AM DYE ROOM HELPER this procedure are in the results section. POTASSIUM LEVEL AM 03/18/2021 Results for 4:01 AM DYE ROOM HELPER this procedure are in the results section. SODIUM LEVEL AM 03/18/2021 Results for 4:01 AM DYE ROOM HELPER this procedure are in the results section. COMPLETE BLOOD COUNT AM 03/18/2021 W/ DIFFERENTIAL 4:01 AM DYE ROOM HELPER ANION GAP AM 03/17/2021 Results for 6:00 AM DYE ROOM HELPER this procedure are in the results section. .GLOMERULAR FILTRATION AM 03/17/2021 Resul ts for RATE 6:00 AM DYE ROOM HELPER this procedure are in the results section. SERUM CREATININE AM 03/17/2021 Results for 6:00 AM DYE ROOM HELPER this procedure are in the results section. MANUAL DIFFERENTIAL AM 03/17/2021 Results for 6:00 AM DYE ROOM HELPER this procedure are in the results section. Results CBC AM 03/17/2021 Results for 6:00 AM DYE ROOM HELPER this procedure are in the results section. ALKALINE PHOSPHATASE AM 03/17/2021 Results for 6:00 AM DYE ROOM HELPER this procedure are in the results section. ASPARTATE AM 03/17/2021 Results for AMINOTRANSFERASE 6:00 AM DYE ROOM HELPER this proced ure are in the results section. ALANINE AM 03/17/2021 Results for AMINOTRANSFERASE 6:00 AM DYE ROOM HELPER this proced ure are in the results section. MAGNESIUM LEVEL AM 03/17/2021 Results for 6:00 AM DYE ROOM HELPER this procedure are in the results section. CALCIUM LEVEL TOTAL AM 03/17/2021 Results for 6:00 AM DYE ROOM HELPER this procedure are in the results section. ALBUMIN LEVEL AM 03/17/2021 Results for 6:00 AM DYE ROOM HELPER this procedure are in the results section. FRACTIONATED BILIRUBIN AM 03/17/2021 Resul ts for 6:00 AM DYE ROOM HELPER this procedure are in the results section. PHOSPHORUS LEVEL AM 03/17/2021 Results for 6:00 AM DYE ROOM HELPER this procedure are in the results section. URIC ACID AM 03/17/2021 Results for 6:00 AM DYE ROOM HELPER this procedure are in the results section. LACTATE DEHYDROGENASE AM 03/17/2021 Result s for 6:00 AM DYE ROOM HELPER this procedure are in the results section. GLUCOSE, RANDOM AM 03/17/2021 Results for 6:00 AM DYE ROOM HELPER this procedure are in the results section. SERUM CREATININE AM 03/17/2021 6:00 AM DYE ROOM HELPER BLOOD UREA NITROGEN AM 03/17/2021 Results for 6:00 AM DYE ROOM HELPER this procedure are in the results section. CARBON DIOXIDE LEVEL AM 03/17/2021 Results for 6:00 AM DYE ROOM HELPER this procedure are in the results section. CHLORIDE LEVEL AM 03/17/2021 Results for 6:00 AM DYE ROOM HELPER this procedure are in the results section. POTASSIUM LEVEL AM 03/17/2021 Results for 6:00 AM DYE ROOM HELPER this procedure are in the results section. SODIUM LEVEL AM 03/17/2021 Results for 6:00 AM DYE ROOM HELPER this procedure are in the results section. COMPLETE BLOOD COUNT AM 03/17/2021 W/ DIFFERENTIAL 6:00 AM DYE ROOM HELPER COVID-19 (SARS-COV-2) Now 03/16/2021 Result s for PCR-ASYMPTOMATIC MC 8:39 AM DYE ROOM HELPER this pro cedure are in the results section. CLOT EXPIRATION DATE Routine 03/16/2021 Results for 5:05 AM DYE ROOM HELPER this procedure are in the results section. TMP INTERPRETATION Routine 03/16/2021 Results f or ANTIBODY SCREEN 5:05 AM DYE ROOM HELPER this procedu re NEGATIVE are in the results section. ANION GAP AM 03/16/2021 Results for 5:05 AM DYE ROOM HELPER this procedure are in the results section. .GLOMERULAR FILTRATION AM 03/16/2021 Resul ts for RATE 5:05 AM DYE ROOM HELPER this procedure are in the results section. SERUM CREATININE AM 03/16/2021 Results for 5:05 AM DYE ROOM HELPER this procedure are in the results section. MANUAL DIFFERENTIAL AM 03/16/2021 Results for 5:05 AM DYE ROOM HELPER this procedure are in the results section. Results CBC AM 03/16/2021 Results for 5:05 AM DYE ROOM HELPER this procedure are in the results section. ANTIBODY SCREEN Routine 03/16/2021 Results for 5:05 AM DYE ROOM HELPER this procedure are in the results section. ABORH Routine 03/16/2021 Results for 5:05 AM DYE ROOM HELPER this procedure are in the results section. TYPE AND SCREEN Routine 03/16/2021 5:05 AM DYE ROOM HELPER ALKALINE PHOSPHATASE AM 03/16/2021 Results for 5:05 AM DYE ROOM HELPER this procedure are in the results section. ASPARTATE AM 03/16/2021 Results for AMINOTRANSFERASE 5:05 AM DYE ROOM HELPER this proced ure are in the results section. ALANINE AM 03/16/2021 Results for AMINOTRANSFERASE 5:05 AM DYE ROOM HELPER this proced ure are in the results section. MAGNESIUM LEVEL AM 03/16/2021 Results for 5:05 AM DYE ROOM HELPER this procedure are in the results section. CALCIUM LEVEL TOTAL AM 03/16/2021 Results for 5:05 AM DYE ROOM HELPER this procedure are in the results section. ALBUMIN LEVEL AM 03/16/2021 Results for 5:05 AM DYE ROOM HELPER this procedure are in the results section. FRACTIONATED BILIRUBIN AM 03/16/2021 Resul ts for 5:05 AM DYE ROOM HELPER this procedure are in the results section. PHOSPHORUS LEVEL AM 03/16/2021 Results for 5:05 AM DYE ROOM HELPER this procedure are in the results section. URIC ACID AM 03/16/2021 Results for 5:05 AM DYE ROOM HELPER this procedure are in the results section. LACTATE DEHYDROGENASE AM 03/16/2021 Result s for 5:05 AM DYE ROOM HELPER this procedure are in the results section. GLUCOSE, RANDOM AM 03/16/2021 Results for 5:05 AM DYE ROOM HELPER this procedure are in the results section. SERUM CREATININE AM 03/16/2021 5:05 AM DYE ROOM HELPER BLOOD UREA NITROGEN AM 03/16/2021 Results for 5:05 AM DYE ROOM HELPER this procedure are in the results section. CARBON DIOXIDE LEVEL AM 03/16/2021 Results for 5:05 AM DYE ROOM HELPER this procedure are in the results section. CHLORIDE LEVEL AM 03/16/2021 Results for 5:05 AM DYE ROOM HELPER this procedure are in the results section. POTASSIUM LEVEL AM 03/16/2021 Results for 5:05 AM DYE ROOM HELPER this procedure are in the results section. SODIUM LEVEL AM 03/16/2021 Results for 5:05 AM DYE ROOM HELPER this procedure are in the results section. COMPLETE BLOOD COUNT AM 03/16/2021 W/ DIFFERENTIAL 5:05 AM DYE ROOM HELPER ANION GAP AM 03/15/2021 Results for 4:21 AM DYE ROOM HELPER this procedure are in the results section. .GLOMERULAR FILTRATION AM 03/15/2021 Resul ts for RATE 4:21 AM DYE ROOM HELPER this procedure are in the results section. SERUM CREATININE AM 03/15/2021 Results for 4:21 AM DYE ROOM HELPER this procedure are in the results section. MANUAL DIFFERENTIAL AM 03/15/2021 Results for 4:21 AM DYE ROOM HELPER this procedure are in the results section. Results CBC AM 03/15/2021 Results for 4:21 AM DYE ROOM HELPER this procedure are in the results section. ALKALINE PHOSPHATASE AM 03/15/2021 Results for 4:21 AM DYE ROOM HELPER this procedure are in the results section. ASPARTATE AM 03/15/2021 Results for AMINOTRANSFERASE 4:21 AM DYE ROOM HELPER this proced ure are in the results section. ALANINE AM 03/15/2021 Results for AMINOTRANSFERASE 4:21 AM DYE ROOM HELPER this proced ure are in the results section. MAGNESIUM LEVEL AM 03/15/2021 Results for 4:21 AM DYE ROOM HELPER this procedure are in the results section. CALCIUM LEVEL TOTAL AM 03/15/2021 Results for 4:21 AM DYE ROOM HELPER this procedure are in the results section. ALBUMIN LEVEL AM 03/15/2021 Results for 4:21 AM DYE ROOM HELPER this procedure are in the results section. FRACTIONATED BILIRUBIN AM 03/15/2021 Resul ts for 4:21 AM DYE ROOM HELPER this procedure are in the results section. PHOSPHORUS LEVEL AM 03/15/2021 Results for 4:21 AM DYE ROOM HELPER this procedure are in the results section. URIC ACID AM 03/15/2021 Results for 4:21 AM DYE ROOM HELPER this procedure are in the results section. LACTATE DEHYDROGENASE AM 03/15/2021 Result s for 4:21 AM DYE ROOM HELPER this procedure are in the results section. GLUCOSE, RANDOM AM 03/15/2021 Results for 4:21 AM DYE ROOM HELPER this procedure are in the results section. SERUM CREATININE AM 03/15/2021 4:21 AM DYE ROOM HELPER BLOOD UREA NITROGEN AM 03/15/2021 Results for 4:21 AM DYE ROOM HELPER this procedure are in the results section. CARBON DIOXIDE LEVEL AM 03/15/2021 Results for 4:21 AM DYE ROOM HELPER this procedure are in the results section. CHLORIDE LEVEL AM 03/15/2021 Results for 4:21 AM DYE ROOM HELPER this procedure are in the results section. POTASSIUM LEVEL AM 03/15/2021 Results for 4:21 AM DYE ROOM HELPER this procedure are in the results section. SODIUM LEVEL AM 03/15/2021 Results for 4:21 AM DYE ROOM HELPER this procedure are in the results section. COMPLETE BLOOD COUNT AM 03/15/2021 W/ DIFFERENTIAL 4:21 AM DYE ROOM HELPER ANION GAP AM 03/14/2021 Results for 5:22 AM DYE ROOM HELPER this procedure are in the results section. .GLOMERULAR FILTRATION AM 03/14/2021 Resul ts for RATE 5:22 AM DYE ROOM HELPER this procedure are in the results section. SERUM CREATININE AM 03/14/2021 Results for 5:22 AM DYE ROOM HELPER this procedure are in the results section. MANUAL DIFFERENTIAL AM 03/14/2021 Results for 5:22 AM DYE ROOM HELPER this procedure are in the results section. Results CBC AM 03/14/2021 Results for 5:22 AM DYE ROOM HELPER this procedure are in the results section. ALKALINE PHOSPHATASE AM 03/14/2021 Results for 5:22 AM DYE ROOM HELPER this procedure are in the results section. ASPARTATE AM 03/14/2021 Results for AMINOTRANSFERASE 5:22 AM DYE ROOM HELPER this proced ure are in the results section. ALANINE AM 03/14/2021 Results for AMINOTRANSFERASE 5:22 AM DYE ROOM HELPER this proced ure are in the results section. MAGNESIUM LEVEL AM 03/14/2021 Results for 5:22 AM DYE ROOM HELPER this procedure are in the results section. CALCIUM LEVEL TOTAL AM 03/14/2021 Results for 5:22 AM DYE ROOM HELPER this procedure are in the results section. ALBUMIN LEVEL AM 03/14/2021 Results for 5:22 AM DYE ROOM HELPER this procedure are in the results section. FRACTIONATED BILIRUBIN AM 03/14/2021 Resul ts for 5:22 AM DYE ROOM HELPER this procedure are in the results section. PHOSPHORUS LEVEL AM 03/14/2021 Results for 5:22 AM DYE ROOM HELPER this procedure are in the results section. URIC ACID AM 03/14/2021 Results for 5:22 AM DYE ROOM HELPER this procedure are in the results section. LACTATE DEHYDROGENASE AM 03/14/2021 Result s for 5:22 AM DYE ROOM HELPER this procedure are in the results section. GLUCOSE, RANDOM AM 03/14/2021 Results for 5:22 AM DYE ROOM HELPER this procedure are in the results section. SERUM CREATININE AM 03/14/2021 5:22 AM DYE ROOM HELPER BLOOD UREA NITROGEN AM 03/14/2021 Results for 5:22 AM DYE ROOM HELPER this procedure are in the results section. CARBON DIOXIDE LEVEL AM 03/14/2021 Results for 5:22 AM DYE ROOM HELPER this procedure are in the results section. CHLORIDE LEVEL AM 03/14/2021 Results for 5:22 AM DYE ROOM HELPER this procedure are in the results section. POTASSIUM LEVEL AM 03/14/2021 Results for 5:22 AM DYE ROOM HELPER this procedure are in the results section. SODIUM LEVEL AM 03/14/2021 Results for 5:22 AM DYE ROOM HELPER this procedure are in the results section. COMPLETE BLOOD COUNT AM 03/14/2021 W/ DIFFERENTIAL 5:22 AM DYE ROOM HELPER TMP INTERPRETATION Routine 03/13/2021 Results f or ANTIBODY SCREEN 4:53 AM DYE ROOM HELPER this procedu re NEGATIVE are in the results section. CLOT EXPIRATION DATE Routine 03/13/2021 Results for 4:53 AM DYE ROOM HELPER this procedure are in the results section. ANION GAP AM 03/13/2021 Results for 4:53 AM DYE ROOM HELPER this procedure are in the results section. .GLOMERULAR FILTRATION AM 03/13/2021 Resul ts for RATE 4:53 AM DYE ROOM HELPER this procedure are in the results section. SERUM CREATININE AM 03/13/2021 Results for 4:53 AM DYE ROOM HELPER this procedure are in the results section. MANUAL DIFFERENTIAL AM 03/13/2021 Results for 4:53 AM DYE ROOM HELPER this procedure are in the results section. Results CBC AM 03/13/2021 Results for 4:53 AM DYE ROOM HELPER this procedure are in the results section. ANTIBODY SCREEN Routine 03/13/2021 Results for 4:53 AM DYE ROOM HELPER this procedure are in the results section. ABORH Routine 03/13/2021 Results for 4:53 AM DYE ROOM HELPER this procedure are in the results section. TYPE AND SCREEN Routine 03/13/2021 4:53 AM DYE ROOM HELPER ALKALINE PHOSPHATASE AM 03/13/2021 Results for 4:53 AM DYE ROOM HELPER this procedure are in the results section. ASPARTATE AM 03/13/2021 Results for AMINOTRANSFERASE 4:53 AM DYE ROOM HELPER this proced ure are in the results section. ALANINE AM 03/13/2021 Results for AMINOTRANSFERASE 4:53 AM DYE ROOM HELPER this proced ure are in the results section. MAGNESIUM LEVEL AM 03/13/2021 Results for 4:53 AM DYE ROOM HELPER this procedure are in the results section. CALCIUM LEVEL TOTAL AM 03/13/2021 Results for 4:53 AM DYE ROOM HELPER this procedure are in the results section. ALBUMIN LEVEL AM 03/13/2021 Results for 4:53 AM DYE ROOM HELPER this procedure are in the results section. FRACTIONATED BILIRUBIN AM 03/13/2021 Resul ts for 4:53 AM DYE ROOM HELPER this procedure are in the results section. PHOSPHORUS LEVEL AM 03/13/2021 Results for 4:53 AM DYE ROOM HELPER this procedure are in the results section. URIC ACID AM 03/13/2021 Results for 4:53 AM DYE ROOM HELPER this procedure are in the results section. LACTATE DEHYDROGENASE AM 03/13/2021 Result s for 4:53 AM DYE ROOM HELPER this procedure are in the results section. GLUCOSE, RANDOM AM 03/13/2021 Results for 4:53 AM DYE ROOM HELPER this procedure are in the results section. SERUM CREATININE AM 03/13/2021 4:53 AM DYE ROOM HELPER BLOOD UREA NITROGEN AM 03/13/2021 Results for 4:53 AM DYE ROOM HELPER this procedure are in the results section. CARBON DIOXIDE LEVEL AM 03/13/2021 Results for 4:53 AM DYE ROOM HELPER this procedure are in the results section. CHLORIDE LEVEL AM 03/13/2021 Results for 4:53 AM DYE ROOM HELPER this procedure are in the results section. POTASSIUM LEVEL AM 03/13/2021 Results for 4:53 AM DYE ROOM HELPER this procedure are in the results section. SODIUM LEVEL AM 03/13/2021 Results for 4:53 AM DYE ROOM HELPER this procedure are in the results section. COMPLETE BLOOD COUNT AM 03/13/2021 W/ DIFFERENTIAL 4:53 AM DYE ROOM HELPER URINALYSIS WITH Routine 03/12/2021 Results for MICROSCOPIC IF 8:28 AM DYE ROOM HELPER this procedur e INDICATED are in the results section. URINALYSIS MICROSCOPIC Now 03/12/2021 Resul ts for 8:28 AM DYE ROOM HELPER this procedure are in the results section. URINE CULTURE Now 03/12/2021 Results for 8:28 AM DYE ROOM HELPER this procedure are in the results section. ANION GAP AM 03/12/2021 Results for 2:16 AM DYE ROOM HELPER this procedure are in the results section. .GLOMERULAR FILTRATION AM 03/12/2021 Resul ts for RATE 2:16 AM DYE ROOM HELPER this procedure are in the results section. SERUM CREATININE AM 03/12/2021 Results for 2:16 AM DYE ROOM HELPER this procedure are in the results section. MANUAL DIFFERENTIAL AM 03/12/2021 Results for 2:16 AM DYE ROOM HELPER this procedure are in the results section. Results CBC AM 03/12/2021 Results for 2:16 AM DYE ROOM HELPER this procedure are in the results section. ALKALINE PHOSPHATASE AM 03/12/2021 Results for 2:16 AM DYE ROOM HELPER this procedure are in the results section. ASPARTATE AM 03/12/2021 Results for AMINOTRANSFERASE 2:16 AM DYE ROOM HELPER this proced ure are in the results section. ALANINE AM 03/12/2021 Results for AMINOTRANSFERASE 2:16 AM DYE ROOM HELPER this proced ure are in the results section. MAGNESIUM LEVEL AM 03/12/2021 Results for 2:16 AM DYE ROOM HELPER this procedure are in the results section. CALCIUM LEVEL TOTAL AM 03/12/2021 Results for 2:16 AM DYE ROOM HELPER this procedure are in the results section. ALBUMIN LEVEL AM 03/12/2021 Results for 2:16 AM DYE ROOM HELPER this procedure are in the results section. FRACTIONATED BILIRUBIN AM 03/12/2021 Resul ts for 2:16 AM DYE ROOM HELPER this procedure are in the results section. PHOSPHORUS LEVEL AM 03/12/2021 Results for 2:16 AM DYE ROOM HELPER this procedure are in the results section. URIC ACID AM 03/12/2021 Results for 2:16 AM DYE ROOM HELPER this procedure are in the results section. LACTATE DEHYDROGENASE AM 03/12/2021 Result s for 2:16 AM DYE ROOM HELPER this procedure are in the results section. GLUCOSE, RANDOM AM 03/12/2021 Results for 2:16 AM DYE ROOM HELPER this procedure are in the results section. SERUM CREATININE AM 03/12/2021 2:16 AM DYE ROOM HELPER BLOOD UREA NITROGEN AM 03/12/2021 Results for 2:16 AM DYE ROOM HELPER this procedure are in the results section. CARBON DIOXIDE LEVEL AM 03/12/2021 Results for 2:16 AM DYE ROOM HELPER this procedure are in the results section. CHLORIDE LEVEL AM 03/12/2021 Results for 2:16 AM DYE ROOM HELPER this procedure are in the results section. POTASSIUM LEVEL AM 03/12/2021 Results for 2:16 AM DYE ROOM HELPER this procedure are in the results section. SODIUM LEVEL AM 03/12/2021 Results for 2:16 AM DYE ROOM HELPER this procedure are in the results section. COMPLETE BLOOD COUNT AM 03/12/2021 W/ DIFFERENTIAL 2:16 AM DYE ROOM HELPER CT HEAD WO CONTRAST STAT 03/11/2021 Results for 11:18 PM DYE ROOM HELPER this procedure are in the results section. POC ARTERIAL BLOOD GAS Routine 03/11/2021 Resul ts for 10:28 PM DYE ROOM HELPER this procedure are in the results section. POC CRITICAL Routine 03/11/2021 Results for 10:28 PM DYE ROOM HELPER this procedure are in the results section. POC GLUCOSE SCREEN Routine 03/11/2021 Results f or 9:55 PM DYE ROOM HELPER this procedure are in the results section. ANION GAP AM 03/11/2021 Results for 1:34 AM DYE ROOM HELPER this procedure are in the results section. .GLOMERULAR FILTRATION AM 03/11/2021 Resul ts for RATE 1:34 AM DYE ROOM HELPER this procedure are in the results section. SERUM CREATININE AM 03/11/2021 Results for 1:34 AM DYE ROOM HELPER this procedure are in the results section. MANUAL DIFFERENTIAL AM 03/11/2021 Results for 1:34 AM DYE ROOM HELPER this procedure are in the results section. Results CBC AM 03/11/2021 Results for 1:34 AM DYE ROOM HELPER this procedure are in the results section. ALKALINE PHOSPHATASE AM 03/11/2021 Results for 1:34 AM DYE ROOM HELPER this procedure are in the results section. ASPARTATE AM 03/11/2021 Results for AMINOTRANSFERASE 1:34 AM DYE ROOM HELPER this proced ure are in the results section. ALANINE AM 03/11/2021 Results for AMINOTRANSFERASE 1:34 AM DYE ROOM HELPER this proced ure are in the results section. MAGNESIUM LEVEL AM 03/11/2021 Results for 1:34 AM DYE ROOM HELPER this procedure are in the results section. CALCIUM LEVEL TOTAL AM 03/11/2021 Results for 1:34 AM DYE ROOM HELPER this procedure are in the results section. ALBUMIN LEVEL AM 03/11/2021 Results for 1:34 AM DYE ROOM HELPER this procedure are in the results section. FRACTIONATED BILIRUBIN AM 03/11/2021 Resul ts for 1:34 AM DYE ROOM HELPER this procedure are in the results section. PHOSPHORUS LEVEL AM 03/11/2021 Results for 1:34 AM DYE ROOM HELPER this procedure are in the results section. URIC ACID AM 03/11/2021 Results for 1:34 AM DYE ROOM HELPER this procedure are in the results section. LACTATE DEHYDROGENASE AM 03/11/2021 Result s for 1:34 AM DYE ROOM HELPER this procedure are in the results section. GLUCOSE, RANDOM AM 03/11/2021 Results for 1:34 AM DYE ROOM HELPER this procedure are in the results section. SERUM CREATININE AM 03/11/2021 1:34 AM DYE ROOM HELPER BLOOD UREA NITROGEN AM 03/11/2021 Results for 1:34 AM DYE ROOM HELPER this procedure are in the results section. CARBON DIOXIDE LEVEL AM 03/11/2021 Results for 1:34 AM DYE ROOM HELPER this procedure are in the results section. CHLORIDE LEVEL AM 03/11/2021 Results for 1:34 AM DYE ROOM HELPER this procedure are in the results section. POTASSIUM LEVEL AM 03/11/2021 Results for 1:34 AM DYE ROOM HELPER this procedure are in the results section. SODIUM LEVEL AM 03/11/2021 Results for 1:34 AM DYE ROOM HELPER this procedure are in the results section. COMPLETE BLOOD COUNT AM 03/11/2021 W/ DIFFERENTIAL 1:34 AM DYE ROOM HELPER TMP INTERPRETATION Routine 03/10/2021 Results f or ANTIBODY SCREEN 2:43 AM DYE ROOM HELPER this procedu re NEGATIVE are in the results section. CLOT EXPIRATION DATE Routine 03/10/2021 Results for 2:43 AM DYE ROOM HELPER this procedure are in the results section. ANION GAP AM 03/10/2021 Results for 2:43 AM DYE ROOM HELPER this procedure are in the results section. .GLOMERULAR FILTRATION AM 03/10/2021 Resul ts for RATE 2:43 AM DYE ROOM HELPER this procedure are in the results section. SERUM CREATININE AM 03/10/2021 Results for 2:43 AM DYE ROOM HELPER this procedure are in the results section. MANUAL DIFFERENTIAL AM 03/10/2021 Results for 2:43 AM DYE ROOM HELPER this procedure are in the results section. Results CBC AM 03/10/2021 Results for 2:43 AM DYE ROOM HELPER this procedure are in the results section. ANTIBODY SCREEN Routine 03/10/2021 Results for 2:43 AM DYE ROOM HELPER this procedure are in the results section. ABORH Routine 03/10/2021 Results for 2:43 AM DYE ROOM HELPER this procedure are in the results section. TYPE AND SCREEN Routine 03/10/2021 2:43 AM DYE ROOM HELPER ALKALINE PHOSPHATASE AM 03/10/2021 Results for 2:43 AM DYE ROOM HELPER this procedure are in the results section. ASPARTATE AM 03/10/2021 Results for AMINOTRANSFERASE 2:43 AM DYE ROOM HELPER this proced ure are in the results section. ALANINE AM 03/10/2021 Results for AMINOTRANSFERASE 2:43 AM DYE ROOM HELPER this proced ure are in the results section. MAGNESIUM LEVEL AM 03/10/2021 Results for 2:43 AM DYE ROOM HELPER this procedure are in the results section. CALCIUM LEVEL TOTAL AM 03/10/2021 Results for 2:43 AM DYE ROOM HELPER this procedure are in the results section. ALBUMIN LEVEL AM 03/10/2021 Results for 2:43 AM DYE ROOM HELPER this procedure are in the results section. FRACTIONATED BILIRUBIN AM 03/10/2021 Resul ts for 2:43 AM DYE ROOM HELPER this procedure are in the results section. PHOSPHORUS LEVEL AM 03/10/2021 Results for 2:43 AM DYE ROOM HELPER this procedure are in the results section. URIC ACID AM 03/10/2021 Results for 2:43 AM DYE ROOM HELPER this procedure are in the results section. LACTATE DEHYDROGENASE AM 03/10/2021 Result s for 2:43 AM DYE ROOM HELPER this procedure are in the results section. GLUCOSE, RANDOM AM 03/10/2021 Results for 2:43 AM DYE ROOM HELPER this procedure are in the results section. SERUM CREATININE AM 03/10/2021 2:43 AM DYE ROOM HELPER BLOOD UREA NITROGEN AM 03/10/2021 Results for 2:43 AM DYE ROOM HELPER this procedure are in the results section. CARBON DIOXIDE LEVEL AM 03/10/2021 Results for 2:43 AM DYE ROOM HELPER this procedure are in the results section. CHLORIDE LEVEL AM 03/10/2021 Results for 2:43 AM DYE ROOM HELPER this procedure are in the results section. POTASSIUM LEVEL AM 03/10/2021 Results for 2:43 AM DYE ROOM HELPER this procedure are in the results section. SODIUM LEVEL AM 03/10/2021 Results for 2:43 AM DYE ROOM HELPER this procedure are in the results section. COMPLETE BLOOD COUNT AM 03/10/2021 W/ DIFFERENTIAL 2:43 AM DYE ROOM HELPER COVID-19 (SARS-COV-2) Now 03/09/2021 Result s for PCR-ASYMPTOMATIC MC 9:40 AM DYE ROOM HELPER this pro cedure are in the results section. ANION GAP AM 03/09/2021 Results for 3:42 AM DYE ROOM HELPER this procedure are in the results section. .GLOMERULAR FILTRATION AM 03/09/2021 Resul ts for RATE 3:42 AM DYE ROOM HELPER this procedure are in the results section. SERUM CREATININE AM 03/09/2021 Results for 3:42 AM DYE ROOM HELPER this procedure are in the results section. MANUAL DIFFERENTIAL AM 03/09/2021 Results for 3:42 AM DYE ROOM HELPER this procedure are in the results section. Results CBC AM 03/09/2021 Results for 3:42 AM DYE ROOM HELPER this procedure are in the results section. ALKALINE PHOSPHATASE AM 03/09/2021 Results for 3:42 AM DYE ROOM HELPER this procedure are in the results section. ASPARTATE AM 03/09/2021 Results for AMINOTRANSFERASE 3:42 AM DYE ROOM HELPER this proced ure are in the results section. ALANINE AM 03/09/2021 Results for AMINOTRANSFERASE 3:42 AM DYE ROOM HELPER this proced ure are in the results section. MAGNESIUM LEVEL AM 03/09/2021 Results for 3:42 AM DYE ROOM HELPER this procedure are in the results section. CALCIUM LEVEL TOTAL AM 03/09/2021 Results for 3:42 AM DYE ROOM HELPER this procedure are in the results section. ALBUMIN LEVEL AM 03/09/2021 Results for 3:42 AM DYE ROOM HELPER this procedure are in the results section. FRACTIONATED BILIRUBIN AM 03/09/2021 Resul ts for 3:42 AM DYE ROOM HELPER this procedure are in the results section. PHOSPHORUS LEVEL AM 03/09/2021 Results for 3:42 AM DYE ROOM HELPER this procedure are in the results section. URIC ACID AM 03/09/2021 Results for 3:42 AM DYE ROOM HELPER this procedure are in the results section. LACTATE DEHYDROGENASE AM 03/09/2021 Result s for 3:42 AM DYE ROOM HELPER this procedure are in the results section. GLUCOSE, RANDOM AM 03/09/2021 Results for 3:42 AM DYE ROOM HELPER this procedure are in the results section. SERUM CREATININE AM 03/09/2021 3:42 AM DYE ROOM HELPER BLOOD UREA NITROGEN AM 03/09/2021 Results for 3:42 AM DYE ROOM HELPER this procedure are in the results section. CARBON DIOXIDE LEVEL AM 03/09/2021 Results for 3:42 AM DYE ROOM HELPER this procedure are in the results section. CHLORIDE LEVEL AM 03/09/2021 Results for 3:42 AM DYE ROOM HELPER this procedure are in the results section. POTASSIUM LEVEL AM 03/09/2021 Results for 3:42 AM DYE ROOM HELPER this procedure are in the results section. SODIUM LEVEL AM 03/09/2021 Results for 3:42 AM DYE ROOM HELPER this procedure are in the results section. COMPLETE BLOOD COUNT AM 03/09/2021 W/ DIFFERENTIAL 3:42 AM DYE ROOM HELPER ANION GAP AM 03/08/2021 Results for 4:25 AM DYE ROOM HELPER this procedure are in the results section. .GLOMERULAR FILTRATION AM 03/08/2021 Resul ts for RATE 4:25 AM DYE ROOM HELPER this procedure are in the results section. SERUM CREATININE AM 03/08/2021 Results for 4:25 AM DYE ROOM HELPER this procedure are in the results section. MANUAL DIFFERENTIAL AM 03/08/2021 Results for 4:25 AM DYE ROOM HELPER this procedure are in the results section. Results CBC AM 03/08/2021 Results for 4:25 AM DYE ROOM HELPER this procedure are in the results section. ALKALINE PHOSPHATASE AM 03/08/2021 Results for 4:25 AM DYE ROOM HELPER this procedure are in the results section. ASPARTATE AM 03/08/2021 Results for AMINOTRANSFERASE 4:25 AM DYE ROOM HELPER this proced ure are in the results section. ALANINE AM 03/08/2021 Results for AMINOTRANSFERASE 4:25 AM DYE ROOM HELPER this proced ure are in the results section. MAGNESIUM LEVEL AM 03/08/2021 Results for 4:25 AM DYE ROOM HELPER this procedure are in the results section. CALCIUM LEVEL TOTAL AM 03/08/2021 Results for 4:25 AM DYE ROOM HELPER this procedure are in the results section. ALBUMIN LEVEL AM 03/08/2021 Results for 4:25 AM DYE ROOM HELPER this procedure are in the results section. FRACTIONATED BILIRUBIN AM 03/08/2021 Resul ts for 4:25 AM DYE ROOM HELPER this procedure are in the results section. PHOSPHORUS LEVEL AM 03/08/2021 Results for 4:25 AM DYE ROOM HELPER this procedure are in the results section. URIC ACID AM 03/08/2021 Results for 4:25 AM DYE ROOM HELPER this procedure are in the results section. LACTATE DEHYDROGENASE AM 03/08/2021 Result s for 4:25 AM DYE ROOM HELPER this procedure are in the results section. GLUCOSE, RANDOM AM 03/08/2021 Results for 4:25 AM DYE ROOM HELPER this procedure are in the results section. SERUM CREATININE AM 03/08/2021 4:25 AM DYE ROOM HELPER BLOOD UREA NITROGEN AM 03/08/2021 Results for 4:25 AM DYE ROOM HELPER this procedure are in the results section. CARBON DIOXIDE LEVEL AM 03/08/2021 Results for 4:25 AM DYE ROOM HELPER this procedure are in the results section. CHLORIDE LEVEL AM 03/08/2021 Results for 4:25 AM DYE ROOM HELPER this procedure are in the results section. POTASSIUM LEVEL AM 03/08/2021 Results for 4:25 AM DYE ROOM HELPER this procedure are in the results section. SODIUM LEVEL AM 03/08/2021 Results for 4:25 AM DYE ROOM HELPER this procedure are in the results section. COMPLETE BLOOD COUNT AM 03/08/2021 W/ DIFFERENTIAL 4:25 AM DYE ROOM HELPER CLOT EXPIRATION DATE Routine 03/07/2021 Results for 4:02 AM DYE ROOM HELPER this procedure are in the results section. TMP INTERPRETATION Routine 03/07/2021 Results f or ANTIBODY SCREEN 4:02 AM DYE ROOM HELPER this procedu re NEGATIVE are in the results section. ANION GAP AM 03/07/2021 Results for 4:02 AM DYE ROOM HELPER this procedure are in the results section. .GLOMERULAR FILTRATION AM 03/07/2021 Resul ts for RATE 4:02 AM DYE ROOM HELPER this procedure are in the results section. SERUM CREATININE AM 03/07/2021 Results for 4:02 AM DYE ROOM HELPER this procedure are in the results section. MANUAL DIFFERENTIAL AM 03/07/2021 Results for 4:02 AM DYE ROOM HELPER this procedure are in the results section. Results CBC AM 03/07/2021 Results for 4:02 AM DYE ROOM HELPER this procedure are in the results section. ANTIBODY SCREEN Routine 03/07/2021 Results for 4:02 AM DYE ROOM HELPER this procedure are in the results section. ABORH Routine 03/07/2021 Results for 4:02 AM DYE ROOM HELPER this procedure are in the results section. TYPE AND SCREEN Routine 03/07/2021 4:02 AM DYE ROOM HELPER ALKALINE PHOSPHATASE AM 03/07/2021 Results for 4:02 AM DYE ROOM HELPER this procedure are in the results section. ASPARTATE AM 03/07/2021 Results for AMINOTRANSFERASE 4:02 AM DYE ROOM HELPER this proced ure are in the results section. ALANINE AM 03/07/2021 Results for AMINOTRANSFERASE 4:02 AM DYE ROOM HELPER this proced ure are in the results section. MAGNESIUM LEVEL AM 03/07/2021 Results for 4:02 AM DYE ROOM HELPER this procedure are in the results section. CALCIUM LEVEL TOTAL AM 03/07/2021 Results for 4:02 AM DYE ROOM HELPER this procedure are in the results section. ALBUMIN LEVEL AM 03/07/2021 Results for 4:02 AM DYE ROOM HELPER this procedure are in the results section. FRACTIONATED BILIRUBIN AM 03/07/2021 Resul ts for 4:02 AM DYE ROOM HELPER this procedure are in the results section. PHOSPHORUS LEVEL AM 03/07/2021 Results for 4:02 AM DYE ROOM HELPER this procedure are in the results section. URIC ACID AM 03/07/2021 Results for 4:02 AM DYE ROOM HELPER this procedure are in the results section. LACTATE DEHYDROGENASE AM 03/07/2021 Result s for 4:02 AM DYE ROOM HELPER this procedure are in the results section. GLUCOSE, RANDOM AM 03/07/2021 Results for 4:02 AM DYE ROOM HELPER this procedure are in the results section. SERUM CREATININE AM 03/07/2021 4:02 AM DYE ROOM HELPER BLOOD UREA NITROGEN AM 03/07/2021 Results for 4:02 AM DYE ROOM HELPER this procedure are in the results section. CARBON DIOXIDE LEVEL AM 03/07/2021 Results for 4:02 AM DYE ROOM HELPER this procedure are in the results section. CHLORIDE LEVEL AM 03/07/2021 Results for 4:02 AM DYE ROOM HELPER this procedure are in the results section. POTASSIUM LEVEL AM 03/07/2021 Results for 4:02 AM DYE ROOM HELPER this procedure are in the results section. SODIUM LEVEL AM 03/07/2021 Results for 4:02 AM DYE ROOM HELPER this procedure are in the results section. COMPLETE BLOOD COUNT AM 03/07/2021 W/ DIFFERENTIAL 4:02 AM DYE ROOM HELPER ANION GAP AM 03/06/2021 Results for 4:13 AM DYE ROOM HELPER this procedure are in the results section. .GLOMERULAR FILTRATION AM 03/06/2021 Resul ts for RATE 4:13 AM DYE ROOM HELPER this procedure are in the results section. SERUM CREATININE AM 03/06/2021 Results for 4:13 AM DYE ROOM HELPER this procedure are in the results section. MANUAL DIFFERENTIAL AM 03/06/2021 Results for 4:13 AM DYE ROOM HELPER this procedure are in the results section. Results CBC AM 03/06/2021 Results for 4:13 AM DYE ROOM HELPER this procedure are in the results section. ALKALINE PHOSPHATASE AM 03/06/2021 Results for 4:13 AM DYE ROOM HELPER this procedure are in the results section. ASPARTATE AM 03/06/2021 Results for AMINOTRANSFERASE 4:13 AM DYE ROOM HELPER this proced ure are in the results section. ALANINE AM 03/06/2021 Results for AMINOTRANSFERASE 4:13 AM DYE ROOM HELPER this proced ure are in the results section. MAGNESIUM LEVEL AM 03/06/2021 Results for 4:13 AM DYE ROOM HELPER this procedure are in the results section. CALCIUM LEVEL TOTAL AM 03/06/2021 Results for 4:13 AM DYE ROOM HELPER this procedure are in the results section. ALBUMIN LEVEL AM 03/06/2021 Results for 4:13 AM DYE ROOM HELPER this procedure are in the results section. FRACTIONATED BILIRUBIN AM 03/06/2021 Resul ts for 4:13 AM DYE ROOM HELPER this procedure are in the results section. PHOSPHORUS LEVEL AM 03/06/2021 Results for 4:13 AM DYE ROOM HELPER this procedure are in the results section. URIC ACID AM 03/06/2021 Results for 4:13 AM DYE ROOM HELPER this procedure are in the results section. LACTATE DEHYDROGENASE AM 03/06/2021 Result s for 4:13 AM DYE ROOM HELPER this procedure are in the results section. GLUCOSE, RANDOM AM 03/06/2021 Results for 4:13 AM DYE ROOM HELPER this procedure are in the results section. SERUM CREATININE AM 03/06/2021 4:13 AM DYE ROOM HELPER BLOOD UREA NITROGEN AM 03/06/2021 Results for 4:13 AM DYE ROOM HELPER this procedure are in the results section. CARBON DIOXIDE LEVEL AM 03/06/2021 Results for 4:13 AM DYE ROOM HELPER this procedure are in the results section. CHLORIDE LEVEL AM 03/06/2021 Results for 4:13 AM DYE ROOM HELPER this procedure are in the results section. POTASSIUM LEVEL AM 03/06/2021 Results for 4:13 AM DYE ROOM HELPER this procedure are in the results section. SODIUM LEVEL AM 03/06/2021 Results for 4:13 AM DYE ROOM HELPER this procedure are in the results section. COMPLETE BLOOD COUNT AM 03/06/2021 W/ DIFFERENTIAL 4:13 AM DYE ROOM HELPER ANION GAP AM 03/05/2021 Results for 6:30 AM DYE ROOM HELPER this procedure are in the results section. .GLOMERULAR FILTRATION AM 03/05/2021 Resul ts for RATE 6:30 AM DYE ROOM HELPER this procedure are in the results section. SERUM CREATININE AM 03/05/2021 Results for 6:30 AM DYE ROOM HELPER this procedure are in the results section. MANUAL DIFFERENTIAL AM 03/05/2021 Results for 6:30 AM DYE ROOM HELPER this procedure are in the results section. Results CBC AM 03/05/2021 Results for 6:30 AM DYE ROOM HELPER this procedure are in the results section. ALKALINE PHOSPHATASE AM 03/05/2021 Results for 6:30 AM DYE ROOM HELPER this procedure are in the results section. ASPARTATE AM 03/05/2021 Results for AMINOTRANSFERASE 6:30 AM DYE ROOM HELPER this proced ure are in the results section. ALANINE AM 03/05/2021 Results for AMINOTRANSFERASE 6:30 AM DYE ROOM HELPER this proced ure are in the results section. MAGNESIUM LEVEL AM 03/05/2021 Results for 6:30 AM DYE ROOM HELPER this procedure are in the results section. CALCIUM LEVEL TOTAL AM 03/05/2021 Results for 6:30 AM DYE ROOM HELPER this procedure are in the results section. ALBUMIN LEVEL AM 03/05/2021 Results for 6:30 AM DYE ROOM HELPER this procedure are in the results section. FRACTIONATED BILIRUBIN AM 03/05/2021 Resul ts for 6:30 AM DYE ROOM HELPER this procedure are in the results section. PHOSPHORUS LEVEL AM 03/05/2021 Results for 6:30 AM DYE ROOM HELPER this procedure are in the results section. URIC ACID AM 03/05/2021 Results for 6:30 AM DYE ROOM HELPER this procedure are in the results section. LACTATE DEHYDROGENASE AM 03/05/2021 Result s for 6:30 AM DYE ROOM HELPER this procedure are in the results section. GLUCOSE, RANDOM AM 03/05/2021 Results for 6:30 AM DYE ROOM HELPER this procedure are in the results section. SERUM CREATININE AM 03/05/2021 6:30 AM DYE ROOM HELPER BLOOD UREA NITROGEN AM 03/05/2021 Results for 6:30 AM DYE ROOM HELPER this procedure are in the results section. CARBON DIOXIDE LEVEL AM 03/05/2021 Results for 6:30 AM DYE ROOM HELPER this procedure are in the results section. CHLORIDE LEVEL AM 03/05/2021 Results for 6:30 AM DYE ROOM HELPER this procedure are in the results section. POTASSIUM LEVEL AM 03/05/2021 Results for 6:30 AM DYE ROOM HELPER this procedure are in the results section. SODIUM LEVEL AM 03/05/2021 Results for 6:30 AM DYE ROOM HELPER this procedure are in the results section. COMPLETE BLOOD COUNT AM 03/05/2021 W/ DIFFERENTIAL 6:30 AM DYE ROOM HELPER TMP INTERPRETATION Routine 03/04/2021 Results f or ANTIBODY SCREEN 4:35 AM DYE ROOM HELPER this procedu re NEGATIVE are in the results section. CLOT EXPIRATION DATE Routine 03/04/2021 Results for 4:35 AM DYE ROOM HELPER this procedure are in the results section. ANION GAP AM 03/04/2021 Results for 4:35 AM DYE ROOM HELPER this procedure are in the results section. .GLOMERULAR FILTRATION AM 03/04/2021 Resul ts for RATE 4:35 AM DYE ROOM HELPER this procedure are in the results section. SERUM CREATININE AM 03/04/2021 Results for 4:35 AM DYE ROOM HELPER this procedure are in the results section. MANUAL DIFFERENTIAL AM 03/04/2021 Results for 4:35 AM DYE ROOM HELPER this procedure are in the results section. Results CBC AM 03/04/2021 Results for 4:35 AM DYE ROOM HELPER this procedure are in the results section. ANTIBODY SCREEN Routine 03/04/2021 Results for 4:35 AM DYE ROOM HELPER this procedure are in the results section. ABORH Routine 03/04/2021 Results for 4:35 AM DYE ROOM HELPER this procedure are in the results section. TYPE AND SCREEN Routine 03/04/2021 4:35 AM DYE ROOM HELPER ALKALINE PHOSPHATASE AM 03/04/2021 Results for 4:35 AM DYE ROOM HELPER this procedure are in the results section. ASPARTATE AM 03/04/2021 Results for AMINOTRANSFERASE 4:35 AM DYE ROOM HELPER this proced ure are in the results section. ALANINE AM 03/04/2021 Results for AMINOTRANSFERASE 4:35 AM DYE ROOM HELPER this proced ure are in the results section. MAGNESIUM LEVEL AM 03/04/2021 Results for 4:35 AM DYE ROOM HELPER this procedure are in the results section. CALCIUM LEVEL TOTAL AM 03/04/2021 Results for 4:35 AM DYE ROOM HELPER this procedure are in the results section. ALBUMIN LEVEL AM 03/04/2021 Results for 4:35 AM DYE ROOM HELPER this procedure are in the results section. FRACTIONATED BILIRUBIN AM 03/04/2021 Resul ts for 4:35 AM DYE ROOM HELPER this procedure are in the results section. PHOSPHORUS LEVEL AM 03/04/2021 Results for 4:35 AM DYE ROOM HELPER this procedure are in the results section. URIC ACID AM 03/04/2021 Results for 4:35 AM DYE ROOM HELPER this procedure are in the results section. LACTATE DEHYDROGENASE AM 03/04/2021 Result s for 4:35 AM DYE ROOM HELPER this procedure are in the results section. GLUCOSE, RANDOM AM 03/04/2021 Results for 4:35 AM DYE ROOM HELPER this procedure are in the results section. SERUM CREATININE AM 03/04/2021 4:35 AM DYE ROOM HELPER BLOOD UREA NITROGEN AM 03/04/2021 Results for 4:35 AM DYE ROOM HELPER this procedure are in the results section. CARBON DIOXIDE LEVEL AM 03/04/2021 Results for 4:35 AM DYE ROOM HELPER this procedure are in the results section. CHLORIDE LEVEL AM 03/04/2021 Results for 4:35 AM DYE ROOM HELPER this procedure are in the results section. POTASSIUM LEVEL AM 03/04/2021 Results for 4:35 AM DYE ROOM HELPER this procedure are in the results section. SODIUM LEVEL AM 03/04/2021 Results for 4:35 AM DYE ROOM HELPER this procedure are in the results section. COMPLETE BLOOD COUNT AM 03/04/2021 W/ DIFFERENTIAL 4:35 AM DYE ROOM HELPER HP FC LYMPHOMA B Routine 03/03/2021 KAPPA/LAMBDA 5:14 PM DYE ROOM HELPER INTERPRETATION AND REPORT HP FC FLOW CYTOMETRY Routine 03/03/2021 Results for BLOOD COLLECTION 5:14 PM DYE ROOM HELPER this proced ure are in the results section. POTASSIUM LEVEL STAT 03/03/2021 Results for 5:11 PM DYE ROOM HELPER this procedure are in the results section. 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 AFB CULTURE W/ SMEAR Now 03/03/2021 1:41 PM DYE ROOM HELPER CRYPTOCOCCAL ANTIGEN Routine 03/03/2021 Results for PATH REVIEW 1:41 PM DYE ROOM HELPER this procedure are in the results section. MENINGITIS-ENCEPHALITI STAT 03/03/2021 Resul ts for S MULTIPLEX PANEL PATH 1:41 PM DYE ROOM HELPER this procedure REVIEW are in the results section. MENINGITIS-ENCEPHALITI STAT 03/03/2021 Resul ts for S PANEL 1:41 PM DYE ROOM HELPER this procedure are in the results section. AFB CULTURE W/ SMEAR Now 03/03/2021 Results for 1:41 PM DYE ROOM HELPER this procedure are in the results section. CRYPTOCOCCAL ANTIGEN Now 03/03/2021 Results for 1:41 PM DYE ROOM HELPER this procedure are in the results section. CSF CULTURE Now 03/03/2021 Results for 1:41 PM DYE ROOM HELPER this procedure are in the results section. FUNGUS CULTURE W/ Now 03/03/2021 Results fo r SMEAR 1:41 PM DYE ROOM HELPER this procedure are in the results section. CELL COUNT W/ DIFF Now 03/03/2021 Results f or CEREBROSPINAL FLUID 1:41 PM DYE ROOM HELPER this pro cedure are in the results section. GLUCOSE CEREBROSPINAL Now 03/03/2021 Result s for FLUID 1:41 PM DYE ROOM HELPER this procedure are in the results section. PROTEIN CEREBROSPINAL Now 03/03/2021 Result s for FLUID 1:41 PM DYE ROOM HELPER this procedure are in the results section. PARANEOPLASTIC Routine 03/03/2021 Results for AUTO-ANTIBODY EVAL, 1:41 PM DYE ROOM HELPER this pro cedure CSF are in the results section. 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 MANUAL DIFFERENTIAL STAT 03/03/2021 Results for 8:59 AM DYE ROOM HELPER this procedure are in the results section. Results CBC STAT 03/03/2021 Results for 8:59 AM DYE ROOM HELPER this procedure are in the results section. ANION GAP AM 03/03/2021 Results for 5:26 AM DYE ROOM HELPER this procedure are in the results section. .GLOMERULAR FILTRATION AM 03/03/2021 Resul ts for RATE 5:26 AM DYE ROOM HELPER this procedure are in the results section. SERUM CREATININE AM 03/03/2021 Results for 5:26 AM DYE ROOM HELPER this procedure are in the results section. Results CBC AM 03/03/2021 Results for 5:26 AM DYE ROOM HELPER this procedure are in the results section. ALKALINE PHOSPHATASE AM 03/03/2021 Results for 5:26 AM DYE ROOM HELPER this procedure are in the results section. ASPARTATE AM 03/03/2021 Results for AMINOTRANSFERASE 5:26 AM DYE ROOM HELPER this proced ure are in the results section. ALANINE AM 03/03/2021 Results for AMINOTRANSFERASE 5:26 AM DYE ROOM HELPER this proced ure are in the results section. MAGNESIUM LEVEL AM 03/03/2021 Results for 5:26 AM DYE ROOM HELPER this procedure are in the results section. CALCIUM LEVEL TOTAL AM 03/03/2021 Results for 5:26 AM DYE ROOM HELPER this procedure are in the results section. ALBUMIN LEVEL AM 03/03/2021 Results for 5:26 AM DYE ROOM HELPER this procedure are in the results section. FRACTIONATED BILIRUBIN AM 03/03/2021 Resul ts for 5:26 AM DYE ROOM HELPER this procedure are in the results section. PHOSPHORUS LEVEL AM 03/03/2021 Results for 5:26 AM DYE ROOM HELPER this procedure are in the results section. URIC ACID AM 03/03/2021 Results for 5:26 AM DYE ROOM HELPER this procedure are in the results section. LACTATE DEHYDROGENASE AM 03/03/2021 Result s for 5:26 AM DYE ROOM HELPER this procedure are in the results section. GLUCOSE, RANDOM AM 03/03/2021 Results for 5:26 AM DYE ROOM HELPER this procedure are in the results section. SERUM CREATININE AM 03/03/2021 5:26 AM DYE ROOM HELPER BLOOD UREA NITROGEN AM 03/03/2021 Results for 5:26 AM DYE ROOM HELPER this procedure are in the results section. CARBON DIOXIDE LEVEL AM 03/03/2021 Results for 5:26 AM DYE ROOM HELPER this procedure are in the results section. CHLORIDE LEVEL AM 03/03/2021 Results for 5:26 AM DYE ROOM HELPER this procedure are in the results section. POTASSIUM LEVEL AM 03/03/2021 Results for 5:26 AM DYE ROOM HELPER this procedure are in the results section. SODIUM LEVEL AM 03/03/2021 Results for 5:26 AM DYE ROOM HELPER this procedure are in the results section. COMPLETE BLOOD COUNT AM 03/03/2021 W/ DIFFERENTIAL 5:26 AM DYE ROOM HELPER COVID-19 (SARS-COV-2) Now 03/02/2021 Result s for PCR-ASYMPTOMATIC MC 5:34 PM DYE ROOM HELPER this pro cedure are in the results section. HP CG MYC TISSUE FISH Routine 03/02/2021 INTERPRETATION AND 11:06 AM DYE ROOM HELPER REPORT HP CYTOGENETICS BLOOD Routine 03/02/2021 Result s for COLLECTION 11:06 AM DYE ROOM HELPER this procedure are in the results section. IR CT GUIDED BIOPSY STAT 03/02/2021 Follicular lymphoma R esults for RETROPERITONEAL 9:30 AM DYE ROOM HELPER this procedu re are in the results section. 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 PATHOLOGY BIOPSY Routine 03/02/2021 Follicular lymp trav Results for INTERPRETATION 8:53 AM DYE ROOM HELPER Follicular lymphoma this p rocedure grade IIIb of are in the extranodal site results Physical section. deconditioning Pain due to fletcher gnancy Atrial fibrillation, not otherwise specified Unexplained fall s Mild cognitive impairment, so s tated Parkinson's dise ase Squamous cell carcinoma of sca lp Displaced intertrochanteric fracture of right femur, sequela Hypertension Chronic atrial fibrillation, not otherwise specif ied Altered mental status ANION GAP AM 03/02/2021 Results for 4:19 AM DYE ROOM HELPER this procedure are in the results section. .GLOMERULAR FILTRATION AM 03/02/2021 Resul ts for RATE 4:19 AM DYE ROOM HELPER this procedure are in the results section. SERUM CREATININE AM 03/02/2021 Results for 4:19 AM DYE ROOM HELPER this procedure are in the results section. MANUAL DIFFERENTIAL AM 03/02/2021 Results for 4:19 AM DYE ROOM HELPER this procedure are in the results section. Results CBC AM 03/02/2021 Results for 4:19 AM DYE ROOM HELPER this procedure are in the results section. APTT Now 03/02/2021 Results for 4:19 AM DYE ROOM HELPER this procedure are in the results section. PROTHROMBIN TIME Routine 03/02/2021 Results for 4:19 AM DYE ROOM HELPER this procedure are in the results section. ALKALINE PHOSPHATASE AM 03/02/2021 Results for 4:19 AM DYE ROOM HELPER this procedure are in the results section. ASPARTATE AM 03/02/2021 Results for AMINOTRANSFERASE 4:19 AM DYE ROOM HELPER this proced ure are in the results section. ALANINE AM 03/02/2021 Results for AMINOTRANSFERASE 4:19 AM DYE ROOM HELPER this proced ure are in the results section. MAGNESIUM LEVEL AM 03/02/2021 Results for 4:19 AM DYE ROOM HELPER this procedure are in the results section. CALCIUM LEVEL TOTAL AM 03/02/2021 Results for 4:19 AM DYE ROOM HELPER this procedure are in the results section. ALBUMIN LEVEL AM 03/02/2021 Results for 4:19 AM DYE ROOM HELPER this procedure are in the results section. FRACTIONATED BILIRUBIN AM 03/02/2021 Resul ts for 4:19 AM DYE ROOM HELPER this procedure are in the results section. PHOSPHORUS LEVEL AM 03/02/2021 Results for 4:19 AM DYE ROOM HELPER this procedure are in the results section. URIC ACID AM 03/02/2021 Results for 4:19 AM DYE ROOM HELPER this procedure are in the results section. LACTATE DEHYDROGENASE AM 03/02/2021 Result s for 4:19 AM DYE ROOM HELPER this procedure are in the results section. GLUCOSE, RANDOM AM 03/02/2021 Results for 4:19 AM DYE ROOM HELPER this procedure are in the results section. SERUM CREATININE AM 03/02/2021 4:19 AM DYE ROOM HELPER BLOOD UREA NITROGEN AM 03/02/2021 Results for 4:19 AM DYE ROOM HELPER this procedure are in the results section. CARBON DIOXIDE LEVEL AM 03/02/2021 Results for 4:19 AM DYE ROOM HELPER this procedure are in the results section. CHLORIDE LEVEL AM 03/02/2021 Results for 4:19 AM DYE ROOM HELPER this procedure are in the results section. POTASSIUM LEVEL AM 03/02/2021 Results for 4:19 AM DYE ROOM HELPER this procedure are in the results section. SODIUM LEVEL AM 03/02/2021 Results for 4:19 AM DYE ROOM HELPER this procedure are in the results section. COMPLETE BLOOD COUNT AM 03/02/2021 W/ DIFFERENTIAL 4:19 AM DYE ROOM HELPER CLOT EXPIRATION DATE Routine 03/01/2021 Results for 12:35 PM DYE ROOM HELPER this procedure are in the results section. TMP INTERPRETATION Routine 03/01/2021 Results f or ANTIBODY SCREEN 12:35 PM DYE ROOM HELPER this procedu re NEGATIVE are in the results section. ANTIBODY SCREEN Routine 03/01/2021 Results for 12:35 PM DYE ROOM HELPER this procedure are in the results section. ABORH Routine 03/01/2021 Results for 12:35 PM DYE ROOM HELPER this procedure are in the results section. PROTHROMBIN TIME Routine 03/01/2021 Results for 12:35 PM DYE ROOM HELPER this procedure are in the results section. TYPE AND SCREEN Routine 03/01/2021 12:35 PM DYE ROOM HELPER ANION GAP AM 03/01/2021 Results for 4:11 AM DYE ROOM HELPER this procedure are in the results section. .GLOMERULAR FILTRATION AM 03/01/2021 Resul ts for RATE 4:11 AM DYE ROOM HELPER this procedure are in the results section. SERUM CREATININE AM 03/01/2021 Results for 4:11 AM DYE ROOM HELPER this procedure are in the results section. MANUAL DIFFERENTIAL AM 03/01/2021 Results for 4:11 AM DYE ROOM HELPER this procedure are in the results section. Results CBC AM 03/01/2021 Results for 4:11 AM DYE ROOM HELPER this procedure are in the results section. ALKALINE PHOSPHATASE AM 03/01/2021 Results for 4:11 AM DYE ROOM HELPER this procedure are in the results section. ASPARTATE AM 03/01/2021 Results for AMINOTRANSFERASE 4:11 AM DYE ROOM HELPER this proced ure are in the results section. ALANINE AM 03/01/2021 Results for AMINOTRANSFERASE 4:11 AM DYE ROOM HELPER this proced ure are in the results section. MAGNESIUM LEVEL AM 03/01/2021 Results for 4:11 AM DYE ROOM HELPER this procedure are in the results section. CALCIUM LEVEL TOTAL AM 03/01/2021 Results for 4:11 AM DYE ROOM HELPER this procedure are in the results section. ALBUMIN LEVEL AM 03/01/2021 Results for 4:11 AM DYE ROOM HELPER this procedure are in the results section. FRACTIONATED BILIRUBIN AM 03/01/2021 Resul ts for 4:11 AM DYE ROOM HELPER this procedure are in the results section. PHOSPHORUS LEVEL AM 03/01/2021 Results for 4:11 AM DYE ROOM HELPER this procedure are in the results section. URIC ACID AM 03/01/2021 Results for 4:11 AM DYE ROOM HELPER this procedure are in the results section. LACTATE DEHYDROGENASE AM 03/01/2021 Result s for 4:11 AM DYE ROOM HELPER this procedure are in the results section. GLUCOSE, RANDOM AM 03/01/2021 Results for 4:11 AM DYE ROOM HELPER this procedure are in the results section. SERUM CREATININE AM 03/01/2021 4:11 AM DYE ROOM HELPER BLOOD UREA NITROGEN AM 03/01/2021 Results for 4:11 AM DYE ROOM HELPER this procedure are in the results section. CARBON DIOXIDE LEVEL AM 03/01/2021 Results for 4:11 AM DYE ROOM HELPER this procedure are in the results section. CHLORIDE LEVEL AM 03/01/2021 Results for 4:11 AM DYE ROOM HELPER this procedure are in the results section. POTASSIUM LEVEL AM 03/01/2021 Results for 4:11 AM DYE ROOM HELPER this procedure are in the results section. SODIUM LEVEL AM 03/01/2021 Results for 4:11 AM DYE ROOM HELPER this procedure are in the results section. COMPLETE BLOOD COUNT AM 03/01/2021 W/ DIFFERENTIAL 4:11 AM DYE ROOM HELPER TROPONIN T Routine 03/01/2021 Results for 4:11 AM DYE ROOM HELPER this procedure are in the results section. AMMONIA LEVEL Routine 02/28/2021 Results for 6:56 PM DYE ROOM HELPER this procedure are in the results section. LACTIC ACID, VENOUS Routine 02/28/2021 Results for 6:56 PM DYE ROOM HELPER this procedure are in the results section. BLOODCULTURE Now 02/28/2021 Results for 6:56 PM DYE ROOM HELPER this procedure are in the results section. URINALYSIS WITH Now 02/28/2021 Results for MICROSCOPIC IF 1:23 PM DYE ROOM HELPER this procedur e INDICATED are in the results section. URINE CULTURE Now 02/28/2021 Results for 1:23 PM DYE ROOM HELPER this procedure are in the results section. ANION GAP AM 02/28/2021 Results for 4:49 AM DYE ROOM HELPER this procedure are in the results section. .GLOMERULAR FILTRATION AM 02/28/2021 Resul ts for RATE 4:49 AM DYE ROOM HELPER this procedure are in the results section. SERUM CREATININE AM 02/28/2021 Results for 4:49 AM DYE ROOM HELPER this procedure are in the results section. MANUAL DIFFERENTIAL AM 02/28/2021 Results for 4:49 AM DYE ROOM HELPER this procedure are in the results section. Results CBC AM 02/28/2021 Results for 4:49 AM DYE ROOM HELPER this procedure are in the results section. ALKALINE PHOSPHATASE AM 02/28/2021 Results for 4:49 AM DYE ROOM HELPER this procedure are in the results section. ASPARTATE AM 02/28/2021 Results for AMINOTRANSFERASE 4:49 AM DYE ROOM HELPER this proced ure are in the results section. ALANINE AM 02/28/2021 Results for AMINOTRANSFERASE 4:49 AM DYE ROOM HELPER this proced ure are in the results section. MAGNESIUM LEVEL AM 02/28/2021 Results for 4:49 AM DYE ROOM HELPER this procedure are in the results section. CALCIUM LEVEL TOTAL AM 02/28/2021 Results for 4:49 AM DYE ROOM HELPER this procedure are in the results section. ALBUMIN LEVEL AM 02/28/2021 Results for 4:49 AM DYE ROOM HELPER this procedure are in the results section. FRACTIONATED BILIRUBIN AM 02/28/2021 Resul ts for 4:49 AM DYE ROOM HELPER this procedure are in the results section. PHOSPHORUS LEVEL AM 02/28/2021 Results for 4:49 AM DYE ROOM HELPER this procedure are in the results section. URIC ACID AM 02/28/2021 Results for 4:49 AM DYE ROOM HELPER this procedure are in the results section. LACTATE DEHYDROGENASE AM 02/28/2021 Result s for 4:49 AM DYE ROOM HELPER this procedure are in the results section. GLUCOSE, RANDOM AM 02/28/2021 Results for 4:49 AM DYE ROOM HELPER this procedure are in the results section. SERUM CREATININE AM 02/28/2021 4:49 AM DYE ROOM HELPER BLOOD UREA NITROGEN AM 02/28/2021 Results for 4:49 AM DYE ROOM HELPER this procedure are in the results section. CARBON DIOXIDE LEVEL AM 02/28/2021 Results for 4:49 AM DYE ROOM HELPER this procedure are in the results section. CHLORIDE LEVEL AM 02/28/2021 Results for 4:49 AM DYE ROOM HELPER this procedure are in the results section. POTASSIUM LEVEL AM 02/28/2021 Results for 4:49 AM DYE ROOM HELPER this procedure are in the results section. SODIUM LEVEL AM 02/28/2021 Results for 4:49 AM DYE ROOM HELPER this procedure are in the results section. COMPLETE BLOOD COUNT AM 02/28/2021 W/ DIFFERENTIAL 4:49 AM DYE ROOM HELPER PROTHROMBIN TIME STAT 02/27/2021 Results for 10:55 PM DYE ROOM HELPER this procedure are in the results section. MRI BRAIN W WO Routine 02/27/2021 Results for CONTRAST 1:12 PM DYE ROOM HELPER this procedure are in the results section. ANION GAP AM 02/27/2021 Results for 6:22 AM DYE ROOM HELPER this procedure are in the results section. .GLOMERULAR FILTRATION AM 02/27/2021 Resul ts for RATE 6:22 AM DYE ROOM HELPER this procedure are in the results section. SERUM CREATININE AM 02/27/2021 Results for 6:22 AM DYE ROOM HELPER this procedure are in the results section. MANUAL DIFFERENTIAL AM 02/27/2021 Results for 6:22 AM DYE ROOM HELPER this procedure are in the results section. Results CBC AM 02/27/2021 Results for 6:22 AM DYE ROOM HELPER this procedure are in the results section. ALKALINE PHOSPHATASE AM 02/27/2021 Results for 6:22 AM DYE ROOM HELPER this procedure are in the results section. ASPARTATE AM 02/27/2021 Results for AMINOTRANSFERASE 6:22 AM DYE ROOM HELPER this proced ure are in the results section. ALANINE AM 02/27/2021 Results for AMINOTRANSFERASE 6:22 AM DYE ROOM HELPER this proced ure are in the results section. MAGNESIUM LEVEL AM 02/27/2021 Results for 6:22 AM DYE ROOM HELPER this procedure are in the results section. CALCIUM LEVEL TOTAL AM 02/27/2021 Results for 6:22 AM DYE ROOM HELPER this procedure are in the results section. ALBUMIN LEVEL AM 02/27/2021 Results for 6:22 AM DYE ROOM HELPER this procedure are in the results section. FRACTIONATED BILIRUBIN AM 02/27/2021 Resul ts for 6:22 AM DYE ROOM HELPER this procedure are in the results section. PHOSPHORUS LEVEL AM 02/27/2021 Results for 6:22 AM DYE ROOM HELPER this procedure are in the results section. URIC ACID AM 02/27/2021 Results for 6:22 AM DYE ROOM HELPER this procedure are in the results section. LACTATE DEHYDROGENASE AM 02/27/2021 Result s for 6:22 AM DYE ROOM HELPER this procedure are in the results section. GLUCOSE, RANDOM AM 02/27/2021 Results for 6:22 AM DYE ROOM HELPER this procedure are in the results section. SERUM CREATININE AM 02/27/2021 6:22 AM DYE ROOM HELPER BLOOD UREA NITROGEN AM 02/27/2021 Results for 6:22 AM DYE ROOM HELPER this procedure are in the results section. CARBON DIOXIDE LEVEL AM 02/27/2021 Results for 6:22 AM DYE ROOM HELPER this procedure are in the results section. CHLORIDE LEVEL AM 02/27/2021 Results for 6:22 AM DYE ROOM HELPER this procedure are in the results section. POTASSIUM LEVEL AM 02/27/2021 Results for 6:22 AM DYE ROOM HELPER this procedure are in the results section. SODIUM LEVEL AM 02/27/2021 Results for 6:22 AM DYE ROOM HELPER this procedure are in the results section. COMPLETE BLOOD COUNT AM 02/27/2021 W/ DIFFERENTIAL 6:22 AM DYE ROOM HELPER TMP INTERPRETATION Routine 02/26/2021 Results f or ANTIBODY SCREEN 6:02 PM DYE ROOM HELPER this procedu re NEGATIVE are in the results section. CLOT EXPIRATION DATE Routine 02/26/2021 Results for 6:02 PM DYE ROOM HELPER this procedure are in the results section. ANTIBODY SCREEN Routine 02/26/2021 Results for 6:02 PM DYE ROOM HELPER this procedure are in the results section. ABORH Routine 02/26/2021 Results for 6:02 PM DYE ROOM HELPER this procedure are in the results section. CARDIAC PANEL Timed Study 02/26/2021 Results for 6:02 PM DYE ROOM HELPER this procedure are in the results section. TYPE AND SCREEN Routine 02/26/2021 6:02 PM DYE ROOM HELPER CARDIAC PANEL Timed Study 02/26/2021 Results for 12:01 PM DYE ROOM HELPER this procedure are in the results section. CARDIAC PANEL Timed Study 02/26/2021 Results for 6:36 AM DYE ROOM HELPER this procedure are in the results section. ANION GAP AM 02/26/2021 Results for 2:01 AM DYE ROOM HELPER this procedure are in the results section. .GLOMERULAR FILTRATION AM 02/26/2021 Resul ts for RATE 2:01 AM DYE ROOM HELPER this procedure are in the results section. SERUM CREATININE AM 02/26/2021 Results for 2:01 AM DYE ROOM HELPER this procedure are in the results section. MANUAL DIFFERENTIAL AM 02/26/2021 Results for 2:01 AM DYE ROOM HELPER this procedure are in the results section. Results CBC AM 02/26/2021 Results for 2:01 AM DYE ROOM HELPER this procedure are in the results section. ALKALINE PHOSPHATASE AM 02/26/2021 Results for 2:01 AM DYE ROOM HELPER this procedure are in the results section. ASPARTATE AM 02/26/2021 Results for AMINOTRANSFERASE 2:01 AM DYE ROOM HELPER this proced ure are in the results section. ALANINE AM 02/26/2021 Results for AMINOTRANSFERASE 2:01 AM DYE ROOM HELPER this proced ure are in the results section. MAGNESIUM LEVEL AM 02/26/2021 Results for 2:01 AM DYE ROOM HELPER this procedure are in the results section. CALCIUM LEVEL TOTAL AM 02/26/2021 Results for 2:01 AM DYE ROOM HELPER this procedure are in the results section. ALBUMIN LEVEL AM 02/26/2021 Results for 2:01 AM DYE ROOM HELPER this procedure are in the results section. FRACTIONATED BILIRUBIN AM 02/26/2021 Resul ts for 2:01 AM DYE ROOM HELPER this procedure are in the results section. PHOSPHORUS LEVEL AM 02/26/2021 Results for 2:01 AM DYE ROOM HELPER this procedure are in the results section. URIC ACID AM 02/26/2021 Results for 2:01 AM DYE ROOM HELPER this procedure are in the results section. LACTATE DEHYDROGENASE AM 02/26/2021 Result s for 2:01 AM DYE ROOM HELPER this procedure are in the results section. GLUCOSE, RANDOM AM 02/26/2021 Results for 2:01 AM DYE ROOM HELPER this procedure are in the results section. SERUM CREATININE AM 02/26/2021 2:01 AM DYE ROOM HELPER BLOOD UREA NITROGEN AM 02/26/2021 Results for 2:01 AM DYE ROOM HELPER this procedure are in the results section. CARBON DIOXIDE LEVEL AM 02/26/2021 Results for 2:01 AM DYE ROOM HELPER this procedure are in the results section. CHLORIDE LEVEL AM 02/26/2021 Results for 2:01 AM DYE ROOM HELPER this procedure are in the results section. POTASSIUM LEVEL AM 02/26/2021 Results for 2:01 AM DYE ROOM HELPER this procedure are in the results section. SODIUM LEVEL AM 02/26/2021 Results for 2:01 AM DYE ROOM HELPER this procedure are in the results section. COMPLETE BLOOD COUNT AM 02/26/2021 W/ DIFFERENTIAL 2:01 AM DYE ROOM HELPER TROPONIN T Routine 02/26/2021 Results for 2:01 AM DYE ROOM HELPER this procedure are in the results section. EKG, 12-LEAD STAT 02/26/2021 (PORTABLE) TROPONIN T Routine 02/25/2021 Results for 6:01 PM DYE ROOM HELPER this procedure are in the results section. TROPONIN T Routine 02/25/2021 Results for 12:21 PM DYE ROOM HELPER this procedure are in the results section. ANION GAP AM 02/25/2021 Results for 4:07 AM DYE ROOM HELPER this procedure are in the results section. .GLOMERULAR FILTRATION AM 02/25/2021 Resul ts for RATE 4:07 AM DYE ROOM HELPER this procedure are in the results section. SERUM CREATININE AM 02/25/2021 Results for 4:07 AM DYE ROOM HELPER this procedure are in the results section. MANUAL DIFFERENTIAL AM 02/25/2021 Results for 4:07 AM DYE ROOM HELPER this procedure are in the results section. Results CBC AM 02/25/2021 Results for 4:07 AM DYE ROOM HELPER this procedure are in the results section. CARDIAC PANEL Timed Study 02/25/2021 Results for 4:07 AM DYE ROOM HELPER this procedure are in the results section. ALKALINE PHOSPHATASE AM 02/25/2021 Results for 4:07 AM DYE ROOM HELPER this procedure are in the results section. ASPARTATE AM 02/25/2021 Results for AMINOTRANSFERASE 4:07 AM DYE ROOM HELPER this proced ure are in the results section. ALANINE AM 02/25/2021 Results for AMINOTRANSFERASE 4:07 AM DYE ROOM HELPER this proced ure are in the results section. MAGNESIUM LEVEL AM 02/25/2021 Results for 4:07 AM DYE ROOM HELPER this procedure are in the results section. CALCIUM LEVEL TOTAL AM 02/25/2021 Results for 4:07 AM DYE ROOM HELPER this procedure are in the results section. ALBUMIN LEVEL AM 02/25/2021 Results for 4:07 AM DYE ROOM HELPER this procedure are in the results section. FRACTIONATED BILIRUBIN AM 02/25/2021 Resul ts for 4:07 AM DYE ROOM HELPER this procedure are in the results section. PHOSPHORUS LEVEL AM 02/25/2021 Results for 4:07 AM DYE ROOM HELPER this procedure are in the results section. URIC ACID AM 02/25/2021 Results for 4:07 AM DYE ROOM HELPER this procedure are in the results section. LACTATE DEHYDROGENASE AM 02/25/2021 Result s for 4:07 AM DYE ROOM HELPER this procedure are in the results section. GLUCOSE, RANDOM AM 02/25/2021 Results for 4:07 AM DYE ROOM HELPER this procedure are in the results section. SERUM CREATININE AM 02/25/2021 4:07 AM DYE ROOM HELPER BLOOD UREA NITROGEN AM 02/25/2021 Results for 4:07 AM DYE ROOM HELPER this procedure are in the results section. CARBON DIOXIDE LEVEL AM 02/25/2021 Results for 4:07 AM DYE ROOM HELPER this procedure are in the results section. CHLORIDE LEVEL AM 02/25/2021 Results for 4:07 AM DYE ROOM HELPER this procedure are in the results section. POTASSIUM LEVEL AM 02/25/2021 Results for 4:07 AM DYE ROOM HELPER this procedure are in the results section. SODIUM LEVEL AM 02/25/2021 Results for 4:07 AM DYE ROOM HELPER this procedure are in the results section. COMPLETE BLOOD COUNT AM 02/25/2021 W/ DIFFERENTIAL 4:07 AM DYE ROOM HELPER CARDIAC PANEL Timed Study 02/24/2021 Results for 10:48 PM DYE ROOM HELPER this procedure are in the results section. TROPONIN T Routine 02/24/2021 Results for 10:48 PM DYE ROOM HELPER this procedure are in the results section. URINALYSIS MICROSCOPIC Routine 02/24/2021 Resul ts for 5:51 PM DYE ROOM HELPER this procedure are in the results section. URINALYSIS WITH Now 02/24/2021 Results for MICROSCOPIC IF 5:51 PM DYE ROOM HELPER this procedur e INDICATED are in the results section. URINE CULTURE Now 02/24/2021 Results for 5:51 PM DYE ROOM HELPER this procedure are in the results section. LIPID PANEL Routine 02/24/2021 Results for 4:13 PM DYE ROOM HELPER this procedure are in the results section. NT PRO BNP Routine 02/24/2021 Results for 4:13 PM DYE ROOM HELPER this procedure are in the results section. CARDIAC PANEL Timed Study 02/24/2021 Results for 4:13 PM DYE ROOM HELPER this procedure are in the results section. HEMOGLOBIN A1C Routine 02/24/2021 Results for 2:32 PM DYE ROOM HELPER this procedure are in the results section. ECHOCARDIOGRAM 2D STAT 02/24/2021 Results fo r COMPLETE W CONTRAST 10:00 AM DYE ROOM HELPER this pro cedure are in the results section. PETCT WB INITIAL Routine 02/24/2021 Results for TREATMENT STRATEGY 7:42 AM DYE ROOM HELPER this proc edure are in the results section. ANION GAP AM 02/24/2021 Results for 3:45 AM DYE ROOM HELPER this procedure are in the results section. .GLOMERULAR FILTRATION AM 02/24/2021 Resul ts for RATE 3:45 AM DYE ROOM HELPER this procedure are in the results section. SERUM CREATININE AM 02/24/2021 Results for 3:45 AM DYE ROOM HELPER this procedure are in the results section. MANUAL DIFFERENTIAL AM 02/24/2021 Results for 3:45 AM DYE ROOM HELPER this procedure are in the results section. Results CBC AM 02/24/2021 Results for 3:45 AM DYE ROOM HELPER this procedure are in the results section. ALKALINE PHOSPHATASE AM 02/24/2021 Results for 3:45 AM DYE ROOM HELPER this procedure are in the results section. ASPARTATE AM 02/24/2021 Results for AMINOTRANSFERASE 3:45 AM DYE ROOM HELPER this proced ure are in the results section. ALANINE AM 02/24/2021 Results for AMINOTRANSFERASE 3:45 AM DYE ROOM HELPER this proced ure are in the results section. MAGNESIUM LEVEL AM 02/24/2021 Results for 3:45 AM DYE ROOM HELPER this procedure are in the results section. CALCIUM LEVEL TOTAL AM 02/24/2021 Results for 3:45 AM DYE ROOM HELPER this procedure are in the results section. ALBUMIN LEVEL AM 02/24/2021 Results for 3:45 AM DYE ROOM HELPER this procedure are in the results section. FRACTIONATED BILIRUBIN AM 02/24/2021 Resul ts for 3:45 AM DYE ROOM HELPER this procedure are in the results section. PHOSPHORUS LEVEL AM 02/24/2021 Results for 3:45 AM DYE ROOM HELPER this procedure are in the results section. URIC ACID AM 02/24/2021 Results for 3:45 AM DYE ROOM HELPER this procedure are in the results section. LACTATE DEHYDROGENASE AM 02/24/2021 Result s for 3:45 AM DYE ROOM HELPER this procedure are in the results section. GLUCOSE, RANDOM AM 02/24/2021 Results for 3:45 AM DYE ROOM HELPER this procedure are in the results section. SERUM CREATININE AM 02/24/2021 3:45 AM DYE ROOM HELPER BLOOD UREA NITROGEN AM 02/24/2021 Results for 3:45 AM DYE ROOM HELPER this procedure are in the results section. CARBON DIOXIDE LEVEL AM 02/24/2021 Results for 3:45 AM DYE ROOM HELPER this procedure are in the results section. CHLORIDE LEVEL AM 02/24/2021 Results for 3:45 AM DYE ROOM HELPER this procedure are in the results section. POTASSIUM LEVEL AM 02/24/2021 Results for 3:45 AM DYE ROOM HELPER this procedure are in the results section. SODIUM LEVEL AM 02/24/2021 Results for 3:45 AM DYE ROOM HELPER this procedure are in the results section. COMPLETE BLOOD COUNT AM 02/24/2021 W/ DIFFERENTIAL 3:45 AM DYE ROOM HELPER EKG, 12-LEAD STAT 02/24/2021 (PORTABLE) EKG, 12-LEAD Routine 02/24/2021 (PORTABLE) EKG, 12-LEAD Routine 02/24/2021 (PORTABLE) TMP RPR PATH INTERP Routine 02/23/2021 Results for 5:20 PM DYE ROOM HELPER this procedure are in the results section. TMP HCVAB INTERP Routine 02/23/2021 Results for 5:20 PM DYE ROOM HELPER this procedure are in the results section. TMP HIV 1/2 AG&AB PATH Routine 02/23/2021 Resul ts for INTERP 5:20 PM DYE ROOM HELPER this procedure are in the results section. TMP INTERPRETATION Routine 02/23/2021 Results f or ANTIBODY SCREEN 5:20 PM DYE ROOM HELPER this procedu re NEGATIVE are in the results section. CLOT EXPIRATION DATE Routine 02/23/2021 Results for 5:20 PM DYE ROOM HELPER this procedure are in the results section. TMP INTERPRETATION Routine 02/23/2021 Results f or DIRECT ANTIGLOBULIN 5:20 PM DYE ROOM HELPER this pro cedure TEST are in the results section. BLOOD UREA NITROGEN Routine 02/23/2021 Results for 5:20 PM DYE ROOM HELPER this procedure are in the results section. RAPID PLASMA REAGIN Now 02/23/2021 Results for (RPR) 5:20 PM DYE ROOM HELPER this procedure are in the results section. HIV-1/2 ANTIGEN AND Now 02/23/2021 Results for ANTIBODIES, FOURTH 5:20 PM DYE ROOM HELPER this proc edure GENERATION are in the results section. HEPATITIS C VIRUS Now 02/23/2021 Results fo r ANTIBODY 5:20 PM DYE ROOM HELPER this procedure are in the results section. HIV-1 DNA AND RNA QUAL Now 02/23/2021 Resul ts for PCR 5:20 PM DYE ROOM HELPER this procedure are in the results section. HTLV I/II AB SCREEN Now 02/23/2021 Results for WITH CONFIRM 5:20 PM DYE ROOM HELPER this procedure are in the results section. HEPATITIS B SURFACE AG Now 02/23/2021 Resul ts for W/CONFIRM 5:20 PM DYE ROOM HELPER this procedure are in the results section. HEPATITIS B CORE TOTAL Now 02/23/2021 Resul ts for ANTIBODY 5:20 PM DYE ROOM HELPER this procedure are in the results section. PROTHROMBIN TIME Routine 02/23/2021 Results for 5:20 PM DYE ROOM HELPER this procedure are in the results section. LIPID PANEL Routine 02/23/2021 Results for 5:20 PM DYE ROOM HELPER this procedure are in the results section. HEMOGLOBIN A1C Routine 02/23/2021 Results for 5:20 PM DYE ROOM HELPER this procedure are in the results section. .GLOMERULAR FILTRATION Routine 02/23/2021 Resul ts for RATE 5:20 PM DYE ROOM HELPER this procedure are in the results section. SERUM CREATININE Routine 02/23/2021 Results for 5:20 PM DYE ROOM HELPER this procedure are in the results section. HTLV I+II ANTIBODY Routine 02/23/2021 Results f or 5:20 PM DYE ROOM HELPER this procedure are in the results section. HEPATITIS B SURFACE Routine 02/23/2021 Results for ANTIGEN, SERUM 5:20 PM DYE ROOM HELPER this procedur e are in the results section. HEPATITIS B CORE Routine 02/23/2021 Results for ANTIBODY 5:20 PM DYE ROOM HELPER this procedure are in the results section. DIRECT ANTIGLOBULIN Now 02/23/2021 Results for TEST 5:20 PM DYE ROOM HELPER this procedure are in the results section. VITAMIN D 25 HYDROXY Routine 02/23/2021 Results for LEVEL 5:20 PM DYE ROOM HELPER this procedure are in the results section. BETA 2 MICROGLOBULIN Routine 02/23/2021 Results for 5:20 PM DYE ROOM HELPER this procedure are in the results section. THYROID STIMULATING Routine 02/23/2021 Results for HORMONE 5:20 PM DYE ROOM HELPER this procedure are in the results section. THYROXINE Routine 02/23/2021 Results for 5:20 PM DYE ROOM HELPER this procedure are in the results section. IMMUNOGLOBULIN G SERUM Routine 02/23/2021 Resul ts for 5:20 PM DYE ROOM HELPER this procedure are in the results section. IMMUNOGLOBULIN M SERUM Routine 02/23/2021 Resul ts for 5:20 PM DYE ROOM HELPER this procedure are in the results section. IMMUNOGLOBULIN A SERUM Routine 02/23/2021 Resul ts for 5:20 PM DYE ROOM HELPER this procedure are in the results section. GLUCOSE, RANDOM Routine 02/23/2021 Results for 5:20 PM DYE ROOM HELPER this procedure are in the results section. PHOSPHORUS LEVEL Routine 02/23/2021 Results for 5:20 PM DYE ROOM HELPER this procedure are in the results section. CALCIUM LEVEL TOTAL Routine 02/23/2021 Results for 5:20 PM DYE ROOM HELPER this procedure are in the results section. ALBUMIN LEVEL Routine 02/23/2021 Results for 5:20 PM DYE ROOM HELPER this procedure are in the results section. TOTAL PROTEIN Routine 02/23/2021 Results for 5:20 PM DYE ROOM HELPER this procedure are in the results section. MAGNESIUM LEVEL Routine 02/23/2021 Results for 5:20 PM DYE ROOM HELPER this procedure are in the results section. ELECTROLYTE PANEL Routine 02/23/2021 Results fo r 5:20 PM DYE ROOM HELPER this procedure are in the results section. ASPARTATE Routine 02/23/2021 Results for AMINOTRANSFERASE 5:20 PM DYE ROOM HELPER this proced ure are in the results section. ALANINE Routine 02/23/2021 Results for AMINOTRANSFERASE 5:20 PM DYE ROOM HELPER this proced ure are in the results section. LACTATE DEHYDROGENASE Routine 02/23/2021 Result s for 5:20 PM DYE ROOM HELPER this procedure are in the results section. ALKALINE PHOSPHATASE Routine 02/23/2021 Results for 5:20 PM DYE ROOM HELPER this procedure are in the results section. FRACTIONATED BILIRUBIN Routine 02/23/2021 Resul ts for 5:20 PM DYE ROOM HELPER this procedure are in the results section. URIC ACID Routine 02/23/2021 Results for 5:20 PM DYE ROOM HELPER this procedure are in the results section. CYTOKINE PANEL Routine 02/23/2021 Results for 5:20 PM DYE ROOM HELPER this procedure are in the results section. SERUM CREATININE Routine 02/23/2021 5:20 PM DYE ROOM HELPER MANUAL DIFFERENTIAL Routine 02/23/2021 Results for 5:20 PM DYE ROOM HELPER this procedure are in the results section. Results CBC Routine 02/23/2021 Results for 5:20 PM DYE ROOM HELPER this procedure are in the results section. ANTIBODY SCREEN Routine 02/23/2021 Results for 5:20 PM DYE ROOM HELPER this procedure are in the results section. ABORH Routine 02/23/2021 Results for 5:20 PM DYE ROOM HELPER this procedure are in the results section. COMPLETE BLOOD COUNT Routine 02/23/2021 W/ DIFFERENTIAL 5:20 PM DYE ROOM HELPER TYPE AND SCREEN Routine 02/23/2021 5:20 PM DYE ROOM HELPER CMV ANTIBODY IGG AND Routine 02/23/2021 Results for IGM PATH REVIEW 5:20 PM DYE ROOM HELPER this procedu re are in the results section. CMV ANTIBODY IGG AND Now 02/23/2021 Results for IGM 5:20 PM DYE ROOM HELPER this procedure are in the results section. INFECTIOUS DISEASE Now 02/23/2021 GROUPING 5:20 PM DYE ROOM HELPER COVID-19 (SARS-COV-2) Now 02/23/2021 Result s for ASYMPTOMATIC-LT 4:29 PM DYE ROOM HELPER this procedu re are in the results section. PATHOLOGY OUTSIDE Routine 02/04/2021 Results fo r INTERPRETATION this procedur e are in the results section. after 04/11/2020 Results Glucose, Random (03/24/2021 4:34 AM DYE ROOM HELPER)Only the most recent of30 resultswithin the time period is included. Glucose Random 95 70 - 199 mg/dL [facility] Comment: [facility] Effective 09/22/15, the gluco se reference intervals have been updated based on [place] Diabetes [employer] guidelines (Standards of Medical Care in Diabetes 2016. Diabetes Care 2016; 39: S13-S22). Fasting blood glucose: Normal: 70-99 mg/dL Impaired fasting glucose (in creased risk for diabetes or pre-diabetes): 100- 125 mg/dL Diabetes mellitus: >/=126 mg/dL Random blood glucose: Normal: 70-199 mg/dL Note: Random glucose >100 mg/dL is assoc iated with increased risk for diabetes Specimen Blood Performing Organization Address City/[facility] Phon e Number [facility] Unless otherwise noted, [address] all lab tests performed by: Division of Pathology and Laboratory Medicine [address] Anion Gap (03/24/2021 4:34 AM DYE ROOM HELPER)Only the most recent of29 resultswithin the time period is included. Pathologist Sig nature Anion Gap 10 4 - 14 mEq/L [facility] Specimen Blood Performing Organization Address City/[facility] Phon e Number [facility] Unless otherwise noted, [address] all lab tests performed by: Division of Pathology and Laboratory Medicine [address] Reubens (ABNORMAL) .Serum Creatinine (03/24/2021 4:34 AM DYE ROOM HELPER)Only the most recent of30 resultswithin the time period is included. Pathologist Sig nature Creatinine 0.60 (L) 0.67 - 1.17 mg/dL [facility] Specimen Blood Performing Organization Address [facility] Phon e Number [facility] CANCER Unless otherwise noted, [address] all lab tests performed by: Division of Pathology and Laboratory Medicine [facility]5 Marietta Reubens (ABNORMAL) .CBC (03/24/2021 4:34 AM DYE ROOM HELPER)Only the most recent of31 resultswithin the time period is included. [facility] WBC 2.6 (L) 4.0 - 11.0 [facility] K/uL [facility] RBC 2.95 (L) 4.50 - 6.00 [facility] M/uL [facility] Hgb 8.1 (L) 14.0 - 18.0 [facility] gm/dL [facility] Hct 26.0 (L) 40.0 - 54.0 % [facility] MCV 88 82 - 98 fL [facility] MCH 27.5 27.0 - 31.0 pg [facility] MCHC 31.2 31.0 - 36.0 [facility] gm/dL [facility] RDW-SD 50.9 (H) 35.1 - 46.3 fL [facility] RDW-CV 15.9 (H) 12.0 - 15.5 % [facility] Platelet count 94 (L) 140 - 440 K/uL [facility] MPV 11.7 (H) 4.0 - 10.4 fL [facility] INRBC 0.0 <=0.0 % [facility] Comment: [facility] The INRBC (instrument NRBC) value reflects the enumera tion of nucleated red blood cells contained in a 200uL samp le of whole blood analyzed by the instrument. This value may differ from the NRBC value reported in a manual differ ential, which is based on a 100 cell differential. Specimen Blood Performing Organization Address City/State/ZIP Code Phon e Number [facility]ER Unless otherwise noted, [address] all lab tests performed by: Division of Pathology and Laboratory Medicine [address] [facility] Er Glomerular Filtration Rate (03/24/2021 4:34 AM DYE ROOM HELPER)Only the most recent of30 resultswithin the time period is included. Pathologist [facility] eGFR-AA 105 >=60 [facility] Comment: mL/min/1.73 [facility] Normal eGFR: >= 60 mL/min/1.73 m2 sq. m Note: The eGFR is calculated using the CKD-EPI equation. The eGFR declines with age. eGFR <60 mL/min/1.73 m2 is considered as "decreased". This equation should only be used for patients 18 and older. According to the National dney Foundation's Kidney Disease Outcome Quality Initiative (KDOQI) classification and 2012 Kidney Disease Improving Global Outcomes (KDIGO) Clinical Practice Guideline, the stage of CKD should be categorized based on estimated GFR. Stage Description GFR mL/min/1.73 m2 1 Normal or high GFR >=90 2 Mildly decreased GFR 60-89 3a Mildly to moderately decreased GFR 45-59 3b Moderately to severely decreased GFR 30-44 4 Severely decreased GFR 15-29 5 Kidney failure <15 eGFR-YSABEL 90 >=60 [facility] Comment: mL/min/1.73 [facility] Normal eGFR: >= 60 mL/min/1.73 m2 sq. m Note: The eGFR is calculated using the CKD-EPI equation. The eGFR declines with age. eGFR <60 mL/min/1.73 m2 is considered as "decreased". This equation should only be used for patients 18 and older. According to the National dney Foundation's Kidney Disease Outcome Quality Initiative (KDOQI) classification and 2012 Kidney Disease Improving Global Outcomes (KDIGO) Clinical Practice Guideline, the stage of CKD should be categorized based on estimated GFR. Stage Description GFR mL/min/1.73 m2 1 Normal or high GFR >=90 2 Mildly decreased GFR 60-89 3a Mildly to moderately decreased GFR 45-59 3b Moderately to severely decreased GFR 30-44 4 Severely decreased GFR 15-29 5 Kidney failure <15 Specimen Blood Performing Organization Address City/State/ZIP Code Phon e Number [facility]ER Unless otherwise noted, [place] [address] [address] all lab tests performed by: Division of Pathology and Laboratory Medicine [facility]5 [facility] Er Fractionated Bilirubin (03/24/2021 4:34 AM DYE ROOM HELPER)Only the most recent of30 resultswithin the time period is included. Bili Total 0.6 <=1.2 mg/dL [facility] Comment: [facility] Indocyanine Green (ICG) may cause falsely elevated bilirubin results. Total and direct bilirubin must not be measured from samples containing indocyanine green. False elevation of total petrona irubin can be seen in patients with IgG concentrations above 28 g/L. Bili Direct 0.2Comment: <=0.3 mg/dL [facility] Indocyanine Green [facility] (ICG) may cause falsely elevated bilirubin results. Total and direct bilirubin must not be measured from samples containing indocyanine green. Bili Indirect 0.4 0.0 - 0.9 [facility] mg/dL [facility] Specimen Blood Performing Organization Address City/[facility] Phon e Number [facility] Unless otherwise noted, [address] all lab tests performed by: Division of Pathology and Laboratory Medicine [facility]5 Yamini Portia (ABNORMAL) Differential (03/24/2021 4:34 AM DYE ROOM HELPER)Only the most recent of30 resultswithin the time period is included. Neutrophil % 64.2 42.0 - 66.0 % [facility] Lymphocyte % 19.8 (L) 24.0 - 44.0 % [facility] Monocyte % 12.5 (H) 2.0 - 7.0 % [facility] Eosinophil % 2.7 1.0 - 4.0 % [facility] Basophil % 0.4 0.0 - 1.0 % [facility] IGRE % 0.4Comment: IGRE % 0.0 - 0.4 % [facility] count includes [facility] Metamyelocytes, Myelocytes, and Promyelocytes. Neutrophil Abs 1.69 (L) 1.70 - 7.30 [facility] Lymphocyte Abs 0.52 (L) 1.00 - 4.80 [facility] Monocyte Abs 0.33 0.08 - 0.70 [facility] Eosinophil Abs 0.07 0.04 - 0.40 [facility] Basophil Abs 0.01 0.00 - 0.10 [facility] IG Abs 0.01 0.00 - 0.04 [facility] Specimen Blood Performing Organization Address City/[facility] Phon e Number [facility] CANCER Unless otherwise noted, [address] all lab tests performed by: Division of Pathology and Laboratory Medicine [address] [place] [address] Reubens (ABNORMAL) Uric Acid (03/24/2021 4:34 AM DYE ROOM HELPER)Only the most recent of30 results within the time period is included. Pathologist Sig nature Uric Acid 2.6 (L) 3.4 - 7.0 mg/dL [facility] TER Specimen Blood Performing Organization Address [facility] e Number [facility] Unless otherwise noted, [address] all lab tests performed by: Division of Pathology and Laboratory Medicine [address] BUN (03/24/2021 4:34 AM DYE ROOM HELPER)Only the most recent of30 resultswithin the time period is included. Pathologist Sig nature BUN 6 6 - 23 mg/dL [facility] Specimen Blood Performing Organization Address [facility] e Number [facility] Unless otherwise noted, [address] all lab tests performed by: Division of Pathology and Laboratory Medicine [address] Alanine Aminotransferase (03/24/2021 4:34 AM DYE ROOM HELPER)Only the most recent of30 resultswithin the time period is included. Pathologist Sig nature ALT 5 <=41 U/L [facility] Specimen Blood Performing Organization Address [facility] e Number [facility] Unless otherwise noted, [address] all lab tests performed by: Division of Pathology and Laboratory Medicine [address] Aspartate Aminotransferase (03/24/2021 4:34 AM DYE ROOM HELPER)Only the most recent of30 resultswithin the time period is included. Pathologist Sig nature AST 23 <=40 U/L [facility] Specimen Blood Performing Organization Address [facility] e Number [facility] Unless otherwise noted, [address] all lab tests performed by: Division of Pathology and Laboratory Medicine [address] Sodium Level (03/24/2021 4:34 AM DYE ROOM HELPER)Only the most recent of29 resultswithin the time period is included. Pathologist Sig nature Sodium Lvl 138 136 - 145 mEq/L [facility] TER Specimen Blood Performing Organization Address [facility] e Number [facility] Unless otherwise noted, [address] all lab tests performed by: Division of Pathology and Laboratory Medicine [address] Potassium (03/24/2021 4:34 AM DYE ROOM HELPER)Only the most recent of30 resultswithin the time period is included. Pathologist Sig nature Potassium Lvl 3.8 3.5 - 5.1 mEq/L [facility] Specimen Blood Performing Organization Address [facility] CANCER Unless otherwise noted, [address] all lab tests performed by: Division of Pathology and Laboratory Medicine [address] Phosphorus Level (03/24/2021 4:34 AM DYE ROOM HELPER)Only the most recent of30 results within the time period is included. Pathologist Sig nature Phosphorus 3.0 2.5 - 4.5 mg/dL [facility] TER Specimen Blood Performing Organization Address [facility] Unless otherwise noted, [address] all lab tests performed by: Division of Pathology and Laboratory Medicine [address] Alkaline Phosphatase (03/24/2021 4:34 AM DYE ROOM HELPER)Only the most recent of30 results within the time period is included. Pathologist Sig nature Alk Phos 96 40 - 129 U/L [facility] Specimen Blood Performing Organization Address [facility] CANCER Unless otherwise noted, [address] all lab tests performed by: Division of Pathology and Laboratory Medicine [address] Magnesium Level (03/24/2021 4:34 AM DYE ROOM HELPER)Only the most recent of30 resultswithin the time period is included. Pathologist Sig nature Magnesium 1.9 1.6 - 2.6 mg/dL [facility] TER Specimen Blood Performing Organization Address [facility] CANCER Unless otherwise noted, [address] all lab tests performed by: Division of Pathology and Laboratory Medicine [address] (ABNORMAL) LDH (03/24/2021 4:34 AM DYE ROOM HELPER)Only the most recent of30 resultswithin the time period is included. LDH 444 (H)Comment: 135 - 225 U/L [facility] Results greater than [facility] 1651 U/L may not be reliable due to matrix effect with extended dilution as it exceeds the peer support specialist s recommended limit. Caution should be exercised when interpreting such values and done in conjunction with clinical context. Specimen Blood Performing Organization Address [facility] Phon e Number [facility] Unless otherwise noted, [address] all lab tests performed by: Division of Pathology and Laboratory Medicine [address] Chloride Level (03/24/2021 4:34 AM DYE ROOM HELPER)Only the most recent of29 resultswithin the time period is included. Pathologist Sig nature Chloride 103 98 - 107 mEq/L [facility] ER Specimen Blood Performing Organization Address [facility] Phon e Number [facility] Unless otherwise noted, [address] all lab tests performed by: Division of Pathology and Laboratory Medicine [address] Carbon Dioxide Level (03/24/2021 4:34 AM DYE ROOM HELPER)Only the most recent of29 results within the time period is included. Pathologist Sig nature CO2 25 22 - 29 mEq/L [facility]E R Specimen Blood Performing Organization Address [facility] Phon e Number [facility] Unless otherwise noted, [address] all lab tests performed by: Division of Pathology and Laboratory Medicine [address] Calcium Level (03/24/2021 4:34 AM DYE ROOM HELPER)Only the most recent of30 resultswithin the time period is included. Pathologist Sig nature Calcium Lvl 8.8 8.4 - 10.2 mg/dL [facility] CE NTER Specimen Blood Performing Organization Address [facility] Phon e Number [facility] Unless otherwise noted, [address] all lab tests performed by: Division of Pathology and Laboratory Medicine [address] (ABNORMAL) Albumin Level (03/24/2021 4:34 AM DYE ROOM HELPER)Only the most recent of30 resultswithin the time period is included. Pathologist Sig nature Albumin Lvl 2.7 (L) 3.5 - 5.2 gm/dL [facility] Specimen Blood Performing Organization Address [facility] Phon e Number [facility] Unless otherwise noted, [address] all lab tests performed by: Division of Pathology and Laboratory Medicine [address] COVID-19 (SARS-CoV-2) PCR-Asymptomatic (03/23/2021 4:42 PM DYE ROOM HELPER)Only the most recent of4 resultswithin the time period is included. COVID19 (SARS Not Detected Not Detected [facility] CoV-2) Result Comment: [facility] This test is a qualitative r everse-transcriptase polymerase chain reaction (RT- PCR) developed for the Harjinder KAYLA Blurtt0 system and intended for qualitative detection of SARS CoV-2 RNA in nasopharyngeal a nd oropharyngeal swab specimens collected from any individuals, including those suspected of COVID-19 by their healthcare provider, and those without symptoms or other reasons to suspect COVID-19. A fact sheet for patients provided by the peer support specialist ( [employer]) can be reviewed at: https://www.fda.gov/media/13 6077/download. A fact sheet for Health Care providers is provided by the peer support specialist ([employer]) and can be reviewed at: https://www.fda.gov/media/337149/download Results must be interpreted within the context of all relevant clinical and laboratory findings and should not form the sole basis for a diagnosis or treatment decision. Positive results do not rule out bacterial infection or co- infection with other viruses. Negative results do not rule out SARS-CoV-2 and must be combined with clinical observations, patient history, and/or epidemiological information. "Presumptive Positive" resul ts are due to partial amplification of SARS-CoV-2 targets and indicates low amounts of virus present in the specimen at or near the limit of detection. Regardless, individuals with "Presumptive Positive" results should be managed per institutional gu idelines as individuals positive for SARS-CoV-2 virus, including use of appropriate infection control protocols. Internal controls are includ ed to assess for possible amplification inhibitors. If inhibition is detected, testing is repeated and if inhibition is confirmed the specimen is resulted as "Invalid". When an "Invalid" result occurs, it is recommended to wait 3 days before submittin g a new specimen for testing if clinically indicated. This assay has been approve d by the FDA for use only under Emergency Use Authorization (EUA) in laboratories that have been CLIA-certified to perform moderate-complexity and high-complexity tests. The performance characteristics of this assay were verified by the Microbiology Laboratory at [facility], CLIA Accreditation #: [id number] and CAP Accreditation #: [id number]. COVID19 SARS LIVESTOCK TRUCKER Swab [facility] COVID19 SARS Inpatient Admission [facility] Specimen Nasopharyngeal Swab Narrative [facility] - 2 1:20 AM DYE ROOM HELPER Nosocomial weekly swab per ID Performing Organization Address City/[facility] Phon e Number [facility] Unless otherwise noted, [address] all lab tests performed by: Division of Pathology and Laboratory Medicine [address] [place] [address] Reubens Clot Expiration Date (03/22/2021 4:30 AM DYE ROOM HELPER)Only the most recent of10 results within the time period is included. Pathologist Sig nature T & S Expiration 03/25/2021 [facility] Specimen Blood Performing Organization Address [facility] Phon e Number [facility] Unless otherwise noted, [address] all lab tests performed by: Division of Pathology and Laboratory Medicine [facility] Yamini Reubens TMP Interpretation Antibody Screen Negative (03/22/2021 4:30 AM DYE ROOM HELPER)Only the most recent of10 resultswithin the time period is included. TMP Auto Neg ABSC At the present time, patien t plasma shows no evidence of RBC alloantibodies. [facility] Interp Comment: CANCER FISHTAIL MD Rip DA SILVA [id number] Dictated by: MD Rip DA SILVA [id number] Dictated Date/Time: 03.22.19 9:18 AM DYE ROOM HELPER Transcribed Date/Time: 03.22.2021 9:18 AM DYE ROOM HELPER Electronically Signed By: JAIMIE NOVA MD - [id number] on 03.22.2021 9:18 AM C Specimen Blood Performing Organization Address City/[facility] Phon e Number [facility] Unless otherwise noted, [address] all lab tests performed by: Division of Pathology and Laboratory Medicine [address] [place], [place] [address]d ABORh (03/22/2021 4:30 AM DYE ROOM HELPER)Only the most recent of10 resultswithin the time period is included. Pathologist Sig nature ABORh. B POS [facility] Specimen Blood Performing Organization Address City/[facility]/ZIP Code Phon e Number [facility] Unless otherwise noted, [address] all lab tests performed by: Division of Pathology and Laboratory Medicine [address] [place] [address] Antibody Screen (03/22/2021 4:30 AM DYE ROOM HELPER)Only the most recent of10 resultswithin the time period is included. Pathologist Sig nature ABSC. Negative ABSC [facility] CENTE R Specimen Blood Performing Organization Address [facility] Phon e Number [facility] Unless otherwise noted, [address] all lab tests performed by: Division of Pathology and Laboratory Medicine [address] [place] [address] (ABNORMAL) Urinalysis with Microscopic (03/12/2021 8:28 AM DYE ROOM HELPER)Only the most recent of2 resultswithin the time period is included. Pathologist Sig nature UA WBC 15 (H) 0 - 2 /HPF [facility] UA RBC 14 (H) 0 - 2 /HPF [facility] UA Mucous 2+ (A) Not Seen-Trace [facility] UA Bacteria NOT SEEN NOT SEEN /HPF [facility] UA Squam Epi NOT SEEN None-Occasional [facility] UA Amorph Jazzy OCC (A) NOT SEEN /HPF [facility] Specimen Urine Narrative [facility] - 2 8:57 AM DYE ROOM HELPER Some reporting parameters within the Urinalysis test have changed due to the implementation of new in strumentation in the [facility] [place], allowi ng greater sensitivity of measurement. Urinalysis results reported by the [facility] using existing instrumentation, as well as Urinalysis t esting performed manually or by backup methodology at the [facility] will remain relatively unchanged. New reporting parameters and units will now be reported for all campuses. Performing Organization Address City/[facility]/ZIP Code Phon e Number [facility] Unless otherwise noted, [address] all lab tests performed by: Division of Pathology and Laboratory Medicine [address] Yamini Reubens (ABNORMAL) Urinalysis w/Microscopic if Indicated (03/12/2021 8:28 AM DYE ROOM HELPER)Only the most recent of3 resultswithin the time period is included. Pathologist Sig nature UA Color Janae (A) Straw-Yellow [facility] UA Appear Cloudy (A) Clear [facility] UA Glucose NEG NEG mg/dL [facility] UA Bili NEG NEG [facility] UA Ketones 20 (A) NEG mg/dL [facility] UA Spec Grav 1.025 1.003 - 1.035 [facility] UA Blood Small (A) NEG [facility] UA pH 6.0 5.0 - 9.0 [facility] UA Protein 100 (A) NEG mg/dL [facility] UA Urobilinogen POS (A) NEG [facility] UA Nitrite NEG NEG [facility] UA Leuk Est NEG NEG [facility] Specimen Urine Performing Organization Address City/[facility]/ZIP Code Phon e Number [facility] CANCER Unless otherwise noted, [address] all lab tests performed by: Division of Pathology and Laboratory Medicine [address] Yamini Reubens Urine Culture (03/12/2021 8:28 AM DYE ROOM HELPER)Only the most recent of3 resultswithin the time period is included. Final Report No growth [facility] Path Review - The results have been review ed and electronically signed by Pathologist: [facility] Urine ROSHAN DRISCOLL MD #[id number] [facility]ENTE R Specimen Urine, Catherized [place]kin Performing Organization Address City/[facility] Phon e Number [facility] CANCER Unless otherwise noted, [address] all lab tests performed by: Division of Pathology and Laboratory Medicine [address] Head without Contrast (03/11/2021 11:18 PM DYE ROOM HELPER) Specimen Impressions [id number] - 03/11/2021 11:32 PM DYE ROOM HELPER No acute intracranial process. I personally reviewed these image(s) jacqueline julio with the resident's/fellow's interpretations, certify that if a procedure was performed I was physically present, and agree with the final report. 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 Findings: Castillo-White matter: Mild chronic small ve ssel ischemic disease. No acute infarction. Hemorrhage: None. Hydrocephalus/ midline shift: None. Calvarium: Unremarkable Extracalvarial Soft Tissues:Mild right m axillary sinus mucosal thickening. Surgical clips are seen right preauricular and temporal scalp. 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 Findings: Castillo-White matter: Mild chronic small ve ssel ischemic disease. No acute infarction. Hemorrhage: None. Hydrocephalus/ midline shift: None. Calvarium: Unremarkable Extracalvarial Soft Tissues:Mild right m axillary sinus mucosal thickening. Surgical clips are seen right preauricular and temporal scalp. IMPRESSION: No acute intracranial process. I personally reviewed these image(s) jacqueline julio with the resident's/fellow's interpretations, certify that if a procedure was performed I was physically present, and agree with the final report. Performing Organization Address City/State/ZIP Code Phon e Number [id number] POC Critical (03/11/2021 10:28 PM DYE ROOM HELPER) Pathologist Sig nature POC Critical Comment See NoteComment: POC TELCOR Test performer notified Ordering Licensed Provider and /or designee of POC AB pO2 critical Results. Specimen Blood Performing Organization Address City/State/ZIP Code Phon e Number POC [facility] (ABNORMAL) POC ABG (03/11/2021 10:28 PM DYE ROOM HELPER) POC AB pH 7.52 (H) 7.35 - 7.45 POC [facility] Comment: The i-STAT is an analyzer us ed for in vitro quantification of various analytes in whole blood. The device uses a single disposable cartridge which contains microfabricated sensors, a calibration solutio n, fluidics system, and a waste chamber. Each test cartridge contains chemicall y sensitive biosensors on a silicon chip that are configured to perform specific tests. The microfabricated sensors measure analyte concentration by an electrochemical assay. POC AB pCO2 37 35 - 45 mmHg POC [facility] POC AB pO2 51 (C) 80 - 105 mmHg POC [facility] POC AB TCO2 31 (H) 23 - 27 mEq/L POC [facility] POC AB Bicarb 30 (H) 22 - 26 POC TELCOR mmol/L POC AB Base Ex 7 (H) -2 - 3 mmol/L POC [facility] POC AB O2 Sat 89 (L) 95 - 98 % POC [facility] POC FiO2 28 POC [facility]EL[facility] POC ABG Draw Site Rt Radial POC [facility] POC Adam Test Performed POC TELCOR POC Sample Type Arterial POC [facility] POC Clean Dev Yes [facility]OC [facility]: [facility] Clinical Lab, [address] [place] [address]; [employer]: Prerna Bedoya MD Specimen Blood Performing Organization Address [facility] Phon e Number POC TELCOR POC Glucose Screen (03/11/2021 9:55 PM DYE ROOM HELPER) POC Glucose 92 70 - 99 mg/dL POC [facility] Comment: RN Notified Capillary blood samples, e.g . obtained by fingerstick, may have inaccurate results in patients with decreased peripheral blood flow. Method description: All resu lts are measured using Electrochemistry test methodology. The glucose in the sample mixes with the reagents on the test strip. The reaction produces an electric current. The amount of current produced is proportional to the glucose concentration in the blood. PO Sample Type Capillary POC [facility] Clinical Lab, [address] [place] [address]; [employer]: Prerna Bedoya MD Specimen Blood Performing Organization Address [facility] Phon e Number POC TELCOR FC Lymphoma B K/L Interpretation and Report (03/03/2021 5:14 PM DYE ROOM HELPER)Only the most recent of2 resultswithin the time period is included. Specimen Narrative This result has an attachment that is no t available. Flow Cytometry Specimen Collection -CSF (03/03/2021 5:14 PM DYE ROOM HELPER)Only the most recent of2 resultswithin the time period is included. Flow Cytometry Yes [facility] (Received) Comment: [facility] Test performed by: [facility] Flow Cytometry Laboratory [address] [place] [address] Imani Ap Link [id number] [facility] Specimen CSF Performing Organization Address City/State/ZIP Code Phon e Number [facility] CANCER Unless otherwise noted, [place] [address] CENTER all lab tests performed by: Division of Pathology and Laboratory Medicine [facility]5 [facility] DIAGNOSTIC LUMBAR SPINAL PUNCTURE (03/03/2021 2:11 PM DYE ROOM HELPER) Avi Broussard PA - 03/03/2021 2:11 PM DYE ROOM HELPER SONA Avina 03/03/2021 2:15 PM Lumbar Puncture without Chemotherapy Inj ection Date/Time: 03/03/2021 2:11 PM Provider Information: Performed by: SONA Avina Authorized by: Britany Tracy APN Cotton Grower present: no spanisher used: make up operator no t needed Pre-Procedure Note: Consent obtained: yes [place] protocol (time-out) performed: yes Patient Diagnosis: 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 Post-procedure diagnosis: unchanged Indications: Indications: diagnostic Anesthesia: Anesthesia: local infiltration Local anesthetic: lidocaine 1% without e pinephrine Anesthetic total (ml): 3 Pre-medications: Pre-medications used?: no IV Fluids: IV fluids administered: peripheral intra venous hydration IV bolus: refer to anesthesia note Sedation: Patient sedated?: patient sedated (Genar al anesthesia by MAC) Procedure Details: Preparation: patient was prepped and klarissa ped in usual sterile fashion Lumbar space: L4-L5 interspace Patient's position: left lateral decubit us Needle gauge: 22 Needle type: Quincke needle Needle length (in): 3.5 Number of attempts: 1 Opening pressure (cm H2O): 16 Fluid appearance: clear Tubes of fluid: 4 (Tube#1 Cytology 5cc, Tube#2 Flow 5cc, Tube#3 Paraneo 3cc, Tube#4 MEN, C/s, Fungus, Cell count , Glu, Pro 10cc) Total volume (ml): 23 Estimated blood loss: none Post-procedure: site cleaned and adhesiv e bandage applied Complications?: no Patient instructed to lie flat for (hour s): 30 min Sample Disposition: Sample disposition: cytology, chemistry, microbiology and flow cytometry Patient Disposition: Disposition: remain in inpatient bed Comments: Procedure was completed W/o any immediat e complication or patient complaint. Lab specimens were labeled pr operly and non-OR recovery [facility] took the specimen to the Lab. Meningitis-Encephalitis Multiplex Panel Path Review (03/03/2021 1:41 PM DYE ROOM HELPER) Pathologist [facility] Path Reviewed and Electronically signed by Patholog ist: [facility] Review Wenceslao Young MD, PhD #[id number] [facility] ER Comment: Assay is a multiplex PCR ass ay to aid in the diagnosis of meningitis / encephalitis. Results should be used in conjunction with other clinical and laboratory data and not as the sole basis for clinical decisions. Assay should not be used for monitoring response to therapy. WENCESLAO YOUNG MD, PhD - [id number] Dictated by: WENCESLAO YOUNG MD, PhD - [id number] Dictated Date/Time: 03.06.19 14:47 PM DYE ROOM HELPER Transcribed Date/Time: 03.06.2021 14:47 PM DYE ROOM HELPER Electronically Signed By: NICOLE YOUNG MD, PhD - [id number] on 03.06.2021 14:47 PM Specimen CSF Performing Organization Address City/State/ZIP Code Phon e Number [facility] CANCER Unless otherwise noted, [place] [address] FISHTAIL all lab tests performed by: Division of Pathology and Laboratory Medicine Jarrod Pearce Meningitis-Encephalitis Panel (03/03/2021 1:41 PM DYE ROOM HELPER) Pathologist [facility] Panel CSF LumbarComment: [facility] Source Assay is [facility] FDA-cleared for spinal fluid obtained via lumbar puncture. Escherichia coli K1 Not Detected Not Detected [facility] Haemophilus influenzae Not Detected Not Detected [facility] Listeria monocytogenes Not Detected Not Detected [facility] Neisseria meningitidis Not Detected Not Detected [facility] Streptococcus Not Detected Not Detected [facility] agalactiae [facility] Streptococcus Not Detected Not Detected [facility] pneumoniae [facility] Cytomegalovirus Not Detected Not Detected [facility] Enterovirus Not Detected Not Detected [facility] Herpes simplex Virus 1 Not Detected Not Detected [facility] Herpes simplex Virus 2 Not Detected Not Detected [facility] Human Herpesvirus 6 Not Detected Not Detected [facility] Human Parechovirus Not Detected Not Detected [facility] Varicella zoster Virus Not Detected Not Detected [facility] Cryptococcus Refer to separate [facility] neoformans/geo Cryptococcal [facility] Antigen Assay. Specimen CSF Performing Organization Address City/[facility] Phon e Number [facility] Unless otherwise noted, [address] all lab tests performed by: Division of Pathology and Laboratory Medicine [address] [place] [address] Cryptococcal Ag Path Review (03/03/2021 1:41 PM DYE ROOM HELPER) Pathologist [facility] Crypto Ag [place] Reviewed and Electronically signed by Pathologist: [facility] VALENCIA Young MD, PhD #[id number] [facility] CENT ER Comment: Reference Range: NEGATIVE The Cryptococcal Antigen Lat eral Flow Assay is a dipstick sandwich immunographic assay. Positive results will be titered. WENCESLAO YOUNG MD, PhD - [id number] Dictated by: WENCESLAO YOUNG MD, PhD - [id number] Dictated Date/Time: 03.04.19 10:23 AM DYE ROOM HELPER Transcribed Date/Time: 03.04.2021 10:23 AM DYE ROOM HELPER Electronically Signed By: NICOLE YOUNG MD, PhD - [id number] on 03.04.2021 10:23 AM Specimen CSF Performing Organization Address City/[facility] Phon e Number [facility] Unless otherwise noted, [address] all lab tests performed by: Division of Pathology and Laboratory Medicine [address] [place], [place] [address] Cryptococcal Ag (03/03/2021 1:41 PM DYE ROOM HELPER) Pathologist Sig nature Cryptococcal Antigen Negative Negative [facility] Screen [facility] Specimen CSF Performing Organization Address City/State/ZIP Code Phon e Number [facility] CANCER Unless otherwise noted, [address] all lab tests performed by: Division of Pathology and Laboratory Medicine [facility]5 [place] Fungus Culture w/Smear (03/03/2021 1:41 PM DYE ROOM HELPER) Final Report No fungus isolated at [facility] 4 weeks. [facility] Path Review - Culture yield may be affecte d by sample quality, prior treatment, and transportation conditions. [facility] Fungus ... [facility] The results have been reviewed and electronically sign ed by Pathologist: Bryan Alvarado MD, PhD #[id number] Calcofluor Stain No Fungi seen in direct smear [facility] Sumeet NDERSON Test performed by fluorescent stain methodology. [facility] Specimen CSF Narrative [facility] - 2 11:21 AM DYE ROOM HELPER Cultures are held for 4 weeks before fin alization. Performing Organization Address City/[facility] Code Phon e Number [facility] CANCER Unless otherwise noted, [address] all lab tests performed by: Division of Pathology and Laboratory Medicine [facility]5 [place] Reubens Paraneoplastic Autoantibody Eval, CSF (03/03/2021 1:41 PM DYE ROOM HELPER) Para Eval See Footnote [facility] Interpretation, Comment: [facility] CSF No informative autoantibodies were detected in the Paraneoplastic Evaluation. However, a negative result does not exclude neurological autoimmunity with or without associated neoplasia. Sensitivity and specificity of antibody testing are enhanced by testing both serum an d CSF. ANNA1 CSF-Huron Negative <1:2 titer [facility] Reflex Added None. [facility] CSF-Shaw Comment: [facility] ADDITIONAL INFORMATION ------ This test was developed and its performance characteri stics determined by [facility] in a manner consistent with CLIA requirements. This test has not been cleared or approv ed by the U.S. Food and Drug Administration. ANNA2 CSF-Huron Negative <1:2 titer [facility] Comment: [facility] ADDITIONAL INFORMATION ------ This test was developed and its performance characteri stics determined by [facility] in a manner consistent with CLIA requirements. This test has not been cleared or approv ed by the U.S. Food and Drug Administration. ANNA3 CSF-Shaw Negative <1:2 titer [facility] Comment: [facility] ADDITIONAL INFORMATION ------ This test was developed and its performance characteri stics determined by [facility] in a manner consistent with CLIA requirements. This test has not been cleared or approv ed by the U.S. Food and Drug Administration. AGNA1 CSF-Huron Negative <1:2 titer [facility] Comment: [facility] ADDITIONAL INFORMATION ------ This test was developed and its performance characteri stics determined by [facility] in a manner consistent with CLIA requirements. This test has not been cleared or approv ed by the U.S. Food and Drug Administration. PCA2 CSF-Shaw Negative <1:2 titer [facility] Comment: [facility] ADDITIONAL INFORMATION ------ This test was developed and its performance characteri stics determined by [facility] in a manner consistent with CLIA requirements. This test has not been cleared or approv ed by the U.S. Food and Drug Administration. Test Performed by: [facility] [employer] - [address] [address] [employer]: Jaycob Izaguirre M.D. Ph.D.; CLIA# [id number] PCATR CSF-Huron Negative <1:2 titer [facility] Comment: [facility] ADDITIONAL INFORMATION ------ This test was developed and its performance characteri stics determined by [facility] in a manner consistent with CLIA requirements. This test has not been cleared or approv ed by the U.S. Food and Drug Administration. Amphip Ab Negative <1:[address] [facility] Comment: [facility] ADDITIONAL INFORMATION ------ This test was developed and its performance characteri stics determined by [facility] in a manner consistent with CLIA requirements. This test has not been cleared or approv ed by the U.S. Food and Drug Administration. CRMP-5-IgG Negative <1:[address] [facility] Comment: [facility] ADDITIONAL INFORMATION ------ This test was developed and its performance characteri stics determined by [facility] in a manner consistent with CLIA requirements. This test has not been cleared or approv ed by the U.S. Food and Drug Administration. AUTOMOBILE SEAT COVER INSTALLER-1 Ab [facility] Negative <1:2 titer [facility] Comment: [facility] ADDITIONAL INFORMATION ------ This test was developed and its performance characteri stics determined by [facility] in a manner consistent with CLIA requirements. This test has not been cleared or approv ed by the U.S. Food and Drug Administration. Specimen CSF Performing Organization Address City/State/ZIP Code Phon e Number [facility] CANCER Unless otherwise noted, [place] [address] CENTER all lab tests performed by: Division of Pathology and Laboratory Medicine [facility]5 [facility] Er AFB Culture w/Smear (03/03/2021 1:41 PM DYE ROOM HELPER) Final Report Culture ongoing. [facility] Pathreview issued too [facility] early. Patient credited. Path Review - AFB Partial antibiotic treatment can render AFB culture negative. AFB culture has sensitivity of 90%. The results have been reviewed and electronically signed by Pathologist: [facility] Wenceslao Young MD, PhD #[id number] [facility] CENT ER Specimen CSF Narrative [facility] - 2 8:54 AM DYE ROOM HELPER Cultures are held 8 weeks before finaliz ation. Performing Organization Address City/State/ZIP Code Phon e Number [facility] CANCER Unless otherwise noted, [address] all lab tests performed by: Division of Pathology and Laboratory Medicine [address] CSF Culture w/ Gram Stain (03/03/2021 1:41 PM DYE ROOM HELPER) Final Report No growth [facility] Path Review Culture yield may be affecte d by sample quality, prior treatment, and transportation conditions. [facility] ... [facility]ER CENTER The results have been reviewed and electronically sign ed by Pathologist: Bryan Alvarado MD, PhD #[id number] Gram Stain Report No WBC's seen. [facility] No organisms seen. [facility] Specimen CSF Performing Organization Address City/[facility] Code Phon e Number [facility] CANCER Unless otherwise noted, [address] all lab tests performed by: Division of Pathology and Laboratory Medicine [address] Cell Count w/ Diff Cerebrospinal Fluid (03/03/2021 1:41 PM DYE ROOM HELPER) Type CSF TapComment: When [facility] reviewing the cell [facility]ENTER count and differential results, clinicians should consider the length of time between spinal fluid collection and testing and the clinical condition of the patient. Appear CSF CLEARComment: When CLEAR [facility] reviewing the cell CAN[facility]ER CENTER count and differential results, clinicians should consider the length of time between spinal fluid collection and testing and the clinical condition of the patient. Color CSF ColorlessComment: Colorless [facility] When reviewing the CANCER CENTER cell count and differential results, clinicians should consider the length of time between spinal fluid collection and testing and the clinical condition of the patient. WBC CSF 0Comment: When 0 - 5 /mcL [facility] reviewing the cell CAN[facility] CENTER count and differential results, clinicians should consider the length of time between spinal fluid collection and testing and the clinical condition of the patient. RBC CSF 0Comment: When 0 - 0 /mcL [facility] reviewing the cell [facility]ENTER count and differential results, clinicians should consider the length of time between spinal fluid collection and testing and the clinical condition of the patient. Tot Cells CSF 4Comment: When [facility] reviewing the cell [facility]ENTER count and differential results, clinicians should consider the length of time between spinal fluid collection and testing and the clinical condition of the patient. Neut CSF 0Comment: When 0 - 5 % [facility] reviewing the cell [facility]ENTER count and differential results, clinicians should consider the length of time between spinal fluid collection and testing and the clinical condition of the patient. Lymph CSF 50Comment: When 28 - 96 % [facility] reviewing the cell [facility]ENTER count and differential results, clinicians should consider the length of time between spinal fluid collection and testing and the clinical condition of the patient. Histiocyte CSF 50Comment: When 16 - 56 % [facility] reviewing the cell [facility]ENTER count and differential results, clinicians should consider the length of time between spinal fluid collection and testing and the clinical condition of the patient. Microorganisms CSF None SeenComment: None Seen [facility] When reviewing the [facility]ENTER cell count and differential results, clinicians should consider the length of time between spinal fluid collection and testing and the clinical condition of the patient. Specimen CSF - CSF, Lumbar Puncture Performing Organization Address [facility] Phon e Number [facility] CANCER Unless otherwise noted, [address] all lab tests performed by: Division of Pathology and Laboratory Medicine [address] [place] [address] Reubens Protein CSF (03/03/2021 1:41 PM DYE ROOM HELPER) Protein CSF 36 15 - 45 mg/dL [facility] Type CSF OtherComment: When [facility] reviewing the cell [facility] count and differential results, clinicians should consider the length of time between spinal fluid collection and testing and the clinical condition of the patient. Specimen CSF - CSF, Lumbar Puncture Performing Organization Address [facility] Phon e Number [facility] CANCER Unless otherwise noted, [address] all lab tests performed by: Division of Pathology and Laboratory Medicine [address] [place] [address] Reubens Glucose CSF (03/03/2021 1:41 PM DYE ROOM HELPER) Glucose CSF 59 40 - 70 mg/dL [facility] Type CSF OtherComment: When [facility] reviewing the cell [facility] count and differential results, clinicians should consider the length of time between spinal fluid collection and testing and the clinical condition of the patient. Specimen CSF - CSF, Lumbar Puncture Performing Organization Address [facility] Phon e Number [facility] CANCER Unless otherwise noted, [address] all lab tests performed by: Division of Pathology and Laboratory Medicine [address] [place] [address] [facility] Cytology Non-Plaster Mechanic Interpretation (03/03/2021 1:28 PM DYE ROOM HELPER) Gross Description A: [facility] 1 Diff Quik; 1 Pap Stain Slides 5 ml. clear colorless fluid Specimen concentrated by cytocentrifugation technique Major Classification [facility]/benign [facility] Electro nically signed by Mavis Jorgensen MD on 2021 at 4:56 PM Diagnosis A. Cerebrospinal fluid, lumbar puncture: [facility] Retained/Biomarker SR: [address] [facility] Testing Informational Points Some tests reported [facility] here may have been developed and performance characteristics determined by [facility] Pathology and Laboratory Medicine. These tests have not been specifically cleared or approved by the U.S. Food and Drug Administration. Specimen Fluid - CSF, Lumbar Puncture Performing Organization Address [facility] Phon e Number [facility] [address] Reub[address] CG MYC Tissue FISH Interpretation and Report (03/02/2021 11:06 AM DYE ROOM HELPER) Specimen Narrative This result has an attachment that is no t available. Cytogenetics Specimen Collection -FFPE (03/02/2021 11:06 AM DYE ROOM HELPER) Imani Sheriff Link [id number] [facility] Comment: [facility]ER CENTER Collection date/time has bee n modified to: 11:06:00. Previous collection date/time: 11:06:00. Corrected from [id number] [NA] on 03/08/21 11:08:53 CS T by Harjeet Tariq. Cytogenetics Yes [facility] (Received) Comment: CANCER CENTER Collection date/time has bee n modified to: 11:06:00. Previous collection date/time: 11:06:00. Corrected from Yes [NA] on 03/08/21 11:08:53 DYE ROOM HELPER by Harjeet Junior. Specimen FFPE Performing Organization Address City/[facility] Phon e Number [facility] CANCER Unless otherwise noted, [place] [address] CENTER all lab tests performed by: Division of Pathology and Laboratory Medicine [address] GUIDED BIOPSY RETROPERITONEAL (03/02/2021 9:30 AM DYE ROOM HELPER) Specimen Narrative Rober Leon MD - 03/02/2021 4:50 PM DYE ROOM HELPER Date of Procedure: 03/02/21 Attending Physician: Rober Mitchell i, MD Cotton Grower: Adeel Israel Pre Procedure Diagnosis: Follicular ly mphoma [[id number]] Post Procedure Diagnosis: Unchanged Indication: Evaluate for metastasis Protocol Number: N/A Title of Procedure: Percutaneous Computed Tomography-Guided Biopsy Operative Findings: Percutaneous image-guided biopsy of 3.6c m left retroperitoneal lymph node. Consent: The procedure, risks, indicat ions and alternatives were explained. All questions were answered a nd informed consent was obtained. I have reviewed the history and physical dictated by the mid-level practitioner / fellow. Sedation/Anesthesia: Anesthesia provid ed by Anesthesia Department. Procedure in Detail: A time out was performed prior to the st art of the procedure and the correct patient, procedure, presence of consent, site, and side were confirmed with all members of the team. With the patient in the left lateral dec ubitus position, the skin overlying the area of interest was prepp ed and draped in the usual sterile fashion. Lidocaine 1% was used for loc al anesthesia. Using a posterior approach under Compute d Tomography image-guidance, a 17 gauge needle was advanced down to the le ft retroperitoneal lymph node. An image was obtained and placed into the m edical record. Samples were obtained for evaluation. Sampling: Cytology: A 22 gauge needle was use d to obtain sample(s) for cytologic assessment. Total number of samples: 6 Core Biopsy: An 18 gauge needle use d to obtain samples for surgical pathology evaluation. Total number of samples: 5 Specimens Disposition: Diagnostic Biopsy: The biopsy sampl es were submitted to pathology. Additional Comments: None Estimated Blood Loss: Minimal Immediate Complications: None Disposition: PACU Plan: 1. No follow-up with Interventional Radi ology required. I certify my physical presence at the [facility] of the procedure. I personally reviewed the image(s) and the resident's / fellow's interpretation and agree with the written report. Cytology Image-Guided FNA Interpretation (03/02/2021 8:54 AM DYE ROOM HELPER) Gross Description A: [facility] Specimens procured: 2 Diff Quik; 2 Pap Stain Slides 10 ml, slightly cloudy bloody fluid in RPMI 1 FLOW 1 Cell Block Date/Time Placed in Formalin: 03/02/21, 1037 Size: 3.6 cm left retroperitoneal lymph node. Major Classification Nondiagnostic [facility] Electr onically signed by Dereck Dickerson MD on 03/08/2021 at 9:47 AM Diagnosis A. Retroperitoneum, left, fine needle aspiration: [facility] Electronically signed by Dereck Dickerson, Non-diagnostic specimen MD grecia romero 03/08/2021 at Rare degenerated lymphoid cells (see comment) 9:47 AM Comment Flow cytometry analysis ([id number]- [id number]) showed occasional B-cells, insufficient for clonality analysis. Please see the concurrently acquired core needle biopsy ([id number]) for a definitive diagnosis. [facility] Cell block section is contributory to the diagnosis. Retained/Biomarker SR: 4 S, [address] [facility] Testing Informational Points Some tests reported [facility] here may have been developed and performance characteristics determined by [facility] Pathology and Laboratory Medicine. These tests have not been specifically cleared or approved by the U.S. Food and Drug Administration. Specimen Fine Needle Asp - Retroperitoneum, Left Performing Organization Address City/State/ZIP Code Phon e Number [facility] [place] [address] [address] [facility] Er Pathology Biopsy Interpretation (03/02/2021 8:53 AM DYE ROOM HELPER) Addendum 1 Cytogenetic study (FISH) buzz ws a negative result for MYC gene rearrangement. [facility] Addendum electronically The original diagnosis remains unchanged. signed by Isak Noriega MD on 03/18 at 10:06 AM Submitted Follicular lymphoma [C82.90] 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 Electronically signed by Isak bae DIFFUSE LARGE B-CELL LYMPHOM A, GERMINAL CENTER B-CELL IMMUNOPHENOTYPE, (see comment). MD Hari on 03/09/2021 at 3:02 PM No diagnostic morphologic or immunophenotypic support for metastatic carcinoma. 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 diffuse large B-cell lymphoma at outside hospital. Histologic sections show nee dle shaped fragments of soft tissue with atypical cell infiltrate. No overt rj architecture is present. The atypical infiltrate is comprised of large cells with highly irr egular nuclear contour, vesi cular chromatin, occasional prominent nucleoli, and ample amounts of eosinophilic cytoplasm. Numerous single cell apoptosis and frequent mitotic figures are observed. Confl uent necrosis is not seen. Many background macrophage s are identified. Immunohistochemical staining shows that the large cells are positive for CD20, CD45 (LCA), BCL2, BCL6, and are negative for CD3, CD21, CD10, MUM1, MYC, S100, Cytokeratin cocktail (PANK). Less than 30% of the large lymphoid cells are positive for MUM1. Occasional lymphoid cells are positive for CD10. CD68 highlights numerous background tumor-associated macrophages. The proliferation index measured by Ki-67 is approximately 50 -60%. In situ hybridization for EBV SADIA is negative. Flow cytometric analysis on concurrent fine-needle aspirate shows only occasional B cells that are inadequate for definitive clonality analysis. The overall morphologic and immunophenotypic findings are compatible with diffuse large B-cell lymphoma, germinal center B-cell immunophenotype. Cytogenetic study (FISH) for MYC gene rearrangement is in progress, the result of which will be reported by the Clinical Cytogenetic Laboratory at [facility]. Medical necessity justificat ion for the immunohistochemical stains that were needed in addition to the flow cytometric immunophenotypic studies for the best diagnosis possible is as follows: The flow c ytometric studies are not cl early hotel services sales representative of all the features requiring evaluation in this specimen. Gross Description A: [facility] Retroperitoneum, left, *biom arkers*: 5 soft israel-brown tissue cores ranging from 0.7cm to 1.8 cm in length and 0.1 cm in diameter, entirely submitted in A1 (2 cores) and A2 (3 cores). ET Disclaimer "Some tests reported here [facility] may have been developed and performance characteristics determined by [facility] Pathology and Laboratory Medicine. These tests have not been specifically cleared or approved by the U.S. Food and Drug Administration. If applicable, controls were reviewed and showed appropriate reactivity." Specimen Tissue - Retroperitoneum, Left Performing Organization Address City/[facility]/ZIP [facility] Phon e Number [facility] [place] [address] [address] (ABNORMAL) aPTT (03/02/2021 4:19 AM DYE ROOM HELPER) Pathologist Sig Avaak aPTT 37.3 (H) 24.7 - 36.8 [facility]() FISHTAIL Specimen Blood Performing Organization Address [facility] Phon e Number [facility] CANCER Unless otherwise noted, [address] all lab tests performed by: Division of Pathology and Laboratory Medicine [address] (ABNORMAL) Prothrombin Time with INR (03/02/2021 4:19 AM DYE ROOM HELPER)Only the most recent of4 resultswithin the time period is included. Pathologist [facility] Avaak PT 16.2 (H) 11.5 - 13.9 [facility]() FISHTAIL INR 1.39 (H) 0.90 - 1.10 [facility] Specimen Blood Performing Organization Address [facility] Phon e Number [facility] CANCER Unless otherwise noted, [address] all lab tests performed by: Division of Pathology and Laboratory Medicine [address] Self Representation Document Preparationvard (ABNORMAL) Troponin T (In-House) (03/01/2021 4:11 AM DYE ROOM HELPER)Only the most recent of5 resultswithin the time period is included. Pathologist Sig Avaak Troponin T 171 (C) <=18 ng/L [facility] Comment: CANCER CENTER < 19 ng/L Suggest retest at 3 to 6 hours later to rule out myocardial infarction >= 19 to <=52 ng/L Possible myocardial injury. Suggest retest at 3 hours. - a change of < 20 ng/L, retest at 6 hours - a change of >= 20 ng/L, suggestive of myocardial infarction > 52 ng/L Suggestive of myocardial infarction Critical value will be repor valentina when cTnT is > 52 ng/L and only reported for the first in a series. Hemolyzed specimens with Hem olysis Index >100 (100 mg/dl or moderate hemolysis) may cause interferences and falsely low results. Specimen Blood Performing Organization Address [facility] Phon e Number [facility] Unless otherwise noted, [address] all lab tests performed by: Division of Pathology and Laboratory Medicine [address] Document Preparationvard (ABNORMAL) Lactic Acid, Venous (02/28/2021 6:56 PM DYE ROOM HELPER) Pathologist Sig nature V Lactate 2.0 (H) 0.5 - 1.6 mmol/L [facility] CE NTER Specimen Blood Performing Organization Address [facility] Phon e Number [facility] Unless otherwise noted, [address] all lab tests performed by: Division of Pathology and Laboratory Medicine [address] Self Represent[address] Document Preparationvard Blood Culture (02/28/2021 6:56 PM DYE ROOM HELPER) Final Report No growth [facility] Path Review - Immunity and antibiotic use may render culture negative. Ongoing infection requires repeat culture. The results have been reviewed and electronically signed by Pathologist: [facility] Bottle/Isolator Wenceslao Young MD, PhD #[id number] CANCER C ENTER Specimen Blood Narrative [facility] - 2 2:52 PM DYE ROOM HELPER Quantitative blood culture Isolator tube is QNS for testing. Refer to qualitative blood culture for test results. Performing Organization Address [facility] Phon e Number [facility] Unless otherwise noted, [address] all lab tests performed by: Division of Pathology and Laboratory Medicine [address] Document Preparationvard (ABNORMAL) Ammonia Level (02/28/2021 6:56 PM DYE ROOM HELPER) Pathologist Sig nature Ammonia <13 (L) 16 - 60 mcmol/L [facility] N[address]A TER Specimen Blood Performing Organization Address [facility] Phon e Number [facility] Unless otherwise noted, [address] all lab tests performed by: Division of Pathology and Laboratory Medicine 1515 [facility] Er MRI Brain with and without Contrast (02/27/2021 1:12 PM DYE ROOM HELPER) Specimen Impressions [id number] - 02/27/2021 1:34 PM DYE ROOM HELPER Exam is markedly motion degraded. No lar ge foci of abnormal parenchymal enhancement are identified, however recommend a repeat exam once the patient is able. 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 FINDINGS: There is no restricted diffusion intracr anially. Remaining sequences are motion degraded. There is no midline shift. Ventricular enlargement likely secondary to central volume loss is redemonstrated. No large foci of abnormal parenchymal enha ncement are identified, however postcontrast sequences are markedly motion degraded. Paranasal sinuses appear clear. Postoperative changes along the right te mporal scalp are present. 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 FINDINGS: There is no restricted diffusion intracr anially. Remaining sequences are motion degraded. There is no midline shift. Ventricular enlargement likely secondary to central volume loss is redemonstrated. No large foci of abnormal parenchymal enhancement are nehemias ntified, however postcontrast sequences are markedly motion degraded. Paranasal sinuses appear clear. Postoperative changes along the right te mporal scalp are present. IMPRESSION: Exam is markedly motion degraded. No lar ge foci of abnormal parenchymal enhancement are identified, however recommend a repeat exam once the patient is able. Performing Organization Address City/[facility]/ZIP Code Phon e Number [id number] (ABNORMAL) Cardiac Panel (02/26/2021 6:02 PM DYE ROOM HELPER)Only the most recent of6 resultswithin the time period is included. CK 156 39 - 308 U/L [facility] CK MB 11.0 (H) <=10.4 ng/mL [facility] Troponin T 143 (C) <=18 ng/L [facility] Comment: [facility] CENTER < 19 ng/L Suggest retest at 3 to 6 hours later to rule out myocardial infarction >= 19 to <=52 ng/L Possible myocardial injury. Suggest retest at 3 hours. - a change of < 20 ng/L, retest at 6 hours - a change of >= 20 ng/L, suggestive of myocardial infarction > 52 ng/L Suggestive of myocardial infarction Critical value will be repor valentina when cTnT is > 52 ng/L and only reported for the first in a series. Hemolyzed specimens with Hem olysis Index >100 (100 mg/dl or moderate hemolysis) may cause interferences and falsely low results. Specimen Blood Performing Organization Address [facility] Phon e Number [facility] Unless otherwise noted, [address] all lab tests performed by: Division of Pathology and Laboratory Medicine [address] EKG, 12-Lead (02/26/2021)Only the most recent of4 resultswithin the time period is included. Specimen Narrative This result has an attachment that is no t available. Performing Organization Address City/[facility]/ZIP Code Phon e Number CODIE IECG (ABNORMAL) NT-Pro BNP (In-House) (02/24/2021 4:13 PM DYE ROOM HELPER) Pathologist Sig nature NT ProBNP 21,122 (H) <=450 pg/mL [facility] Specimen Blood Performing Organization Address [facility]/ZIP [facility] Phon e Number [facility] CANCER Unless otherwise noted, [address] all lab tests performed by: Division of Pathology and Laboratory Medicine [address] (ABNORMAL) Lipid Panel (02/24/2021 4:13 PM DYE ROOM HELPER)Only the most recent of2 results within the time period is included. Chol 137 <=199 mg/dL [facility] Comment: [facility] ATP III Classification of To juliette Cholesterol Primary Target of Therapy (in mg/dL): <200 Desirable 200-239 Borderline high >=240 High Trig 114 <=149 mg/dL [facility] Comment: [facility] ATP III Classification of Se rum Triglycerides Primary Target of Therapy (in mg/dL): <150 Normal 150-199 Borderline high 200-499 High >=500 Very high Non-fasting triglycerides >2 00 mg/dL may be followed up with a fasting Lipid Panel. Calculated LDL-C may be falsely decreased when non-fasting triglycerides >200 mg/dL. HDL 24 (L) >=40 mg/dL [facility] LDL 90 <=100 mg/dL [facility] Comment: [facility] ATP III Classification of LD L Cholesterol Primary Target of Therapy (in mg/dL): <100 Optimal 100-129 Near optimal/above optimal 130-159 Borderline high 160-189 High >=190 Very high VLDL 23 mg/dL [facility] Specimen Blood Performing Organization Address City/[facility]/ZIP Code Phon e Number [facility] CANCER Unless otherwise noted, [address] all lab tests performed by: Division of Pathology and Laboratory Medicine [facility]5 [facility] Hemoglobin A1c (02/24/2021 2:32 PM DYE ROOM HELPER)Only the most recent of2 resultswithin the time period is included. Pathologist Sig nature A1C 5.2 4.3 - 5.6 % [facility] Comment: [facility] HbA1c values >=6.5% are diagnostic of diabetes mellitu s. Diagnosis should be confirmed by repeat testing. Therapeutic Action suggested: >8.0% HbA1c; Goal of therapy: <7.0% HbA1c Specimen Blood Performing Organization Address City/State/[facility] Phon e Number [facility] CANCER Unless otherwise noted, [address] all lab tests performed by: Division of Pathology and Laboratory Medicine [facility]5 [facility] Er Echocardiogram 2D Complete with Contrast (02/24/2021 10:00 AM DYE ROOM HELPER) Specimen Narrative ISCV - 02/24/2021 11:45 AM DYE ROOM HELPER Echocardiographic Report Interpretation Summary A complete two-dimensional transthoracic echocardiogram was performed (2D, M- mode, Spectral and color Doppler). The study was technically difficult. Micro- Bubbles injection performed because of poor end ocardial resolution. Compared to prior s tudy, there is no significant change. Normal left ventricular size and systoli c function. Using an ultrasound enhancing agent and the Biplane Method of Disks, the LVEF measures 54% The right ventricle is normal in size an d function. Unable to estimate RVSP due to lack of T R visualization. Minimal pericardial effusion with no ech o evidence of Tamponade. Left Ventricle: Normal left ventricular size and systoli c function. Using an ultrasound enhancing agent and the Biplane Method of Disks, the LVEF measures 54%. Flattened septum is consistent with RV pressure overload. I WMSI = 1.00 % Normal = 1 00 Segments Size X - Cannot 2 - 1-2 small Interpret 1 - Normal Hypokine tic 3 - Akinetic 4 - Dyskinetic3- 5 moderate 5 - Aneurysmal 6-14 large 15-16 diffuse 3D imaginD volumes were not performed in this st udy. Cardiac Mechanics/Speckle Tracking Imagi ng: Speckle tracking imaging was not perform ed in this study. (GE Study). Diastology: Pseudonormal LV relaxation pattern of di astolic dysfunction, Doppler suggests increased estimated LA pressure. Right Ventricle: The right ventricle is normal in size an d function. Normal RV systolic function using TAPSE criteria. Atria: The left atrium is mildly dilated. Right atrial size is normal. Mitral Valve: Mitral annular calcification is present. There is no mitral valve stenosis. There is trace mitral regurgitation. Tricuspid Valve: The tricuspid valve is not well visualiz ed, but is grossly normal. There is no tricuspid valve stenosis. Unable to estimate RVSP due to lack of TR visualization. Aortic Valve: Mild aortic valve thickening. Mild aorti c valve calcification. No hemodynamically significant valvular aortic stenosis. No aortic regurgitation is present. Pulmonic Valve: The pulmonic valve is not well seen, but is grossly normal. Trace pulmonic valvular regurgitation. Great Vessels: The aortic root is not well visualized b ut is probably normal size. The inferior vena cava demonstrates normal size and normal respiratory variation. Pericardium/Pleural: Minimal pericardial effusion with no ech o evidence of Tamponade. A left pleural effusion is noted. MMode/2D Measurements IVSd: 0.98 cm LVIDd: 4.8 cm LVIDs: 3.3 cm LVPWd: 0.76 cm FS: 30.7 % EDV(MOD-A4C): 108.3 ml ESV(MOD-A4C): 49.3 ml EF(MOD-A4C): 54.5 % EDV(MOD-A2C): 125.3 ml ESV(MOD-A2C): 58.8 ml EDV(MOD-bp): 119.0 ml EF(MOD-A2C): 53.1 % ESV(MOD-bp): 54.8 ml EF(MOD-bp): 54.0 % LAV(MOD-A2C): 55.8 ml EDV (MOD-bp) Index: 63.5 ml/m2 LAV(MOD-A4C): 67.8 ml LAV(MOD-bp): 64.2 ml LAV(MOD-bp) Indexed: 34.2 ml/m2 RWT: 0.31 cm ESV (MOD-bp) Index: 29.2 ml/m2 TAPSE (>1.6): 1.8 cm Doppler Measurements MV E max mery: 69.9 cm/sec MV V2 max: 93.2 cm/sec MV A max mery: 32.9 cm/sec MV max P.5 mmHg MV E/A: 2.1 MV V2 mean: 52.4 cm/sec MV mean P.2 mmHg MV V2 VTI: 20.2 cm MV P1/2t max mery: 70.4 cm/sec Ao V2 max: 174.7 cm/sec MV P1/2t: 70.6 msec Ao max P.2 mmHg MVA(P1/2t): 3.1 cm2 Ao V2 mean: 110.7 cm/sec Ao mean P.7 mmHg MV dec slope: 292.2 cm/sec2 Ao V2 VTI: 29.6 cm LV V1 max P.2 mmHg Med Peak E' Mery: 2.2 cm/sec LV V1 mean P.5 mmHg LV V1 max: 89.5 cm/sec LV V1 mean: 55.6 cm/sec LV V1 VTI: 16.6 cm Lat Peak E' Mery: 5.0 cm/sec Dimensionless Index: 0.51 E/e' (avg): 19.4 E/e' (lat): 13.9 E/e' (sept): 31.9 Procedure Note Flaco Herrera MD - 02/24/2021 Echocardiographic Report Interpretation Summary A complete two-dimensional transthoracic echocardiogram was performed (2D, M- mode, Spectral and color Doppler). The study was technically difficult. Micro- Bubbles injection performed because of poor endocardial resolution. Compared to prior study, there is no sig nificant change. Normal left ventricular size and systoli c function. Using an ultrasound enhancing agent and the Biplane Method of Disks, the LVEF measures 54% The right ventricle is normal in size an d function. Unable to estimate RVSP due to lack of T R visualization. Minimal pericardial effusion with no ech o evidence of Tamponade. Left Ventricle: Normal left ventricular size and systoli c function. Using an ultrasound enhancing agent and the Biplane Method of Disks, the LVEF measures 54%. Flattened septum is consistent with RV pressure overload. I WMSI = 1.00 % Normal = 100 Segments Size X - Cannot 2 - 1-2 small Interpret 1 - Normal Hypokinetic 3 - Akinetic 4 - Dyskinetic3-5 moderate 5 - Aneurysmal 6-14 large 15-16 diffuse 3D imaginD volumes were not performed in this st udy. Cardiac Mechanics/Speckle Tracking Imagi ng: Speckle tracking imaging was not perform ed in this study. ([employer] Study). Diastology: Pseudonormal LV relaxation pattern of di astolic dysfunction, Doppler suggests increased estimated LA pressure. Right Ventricle: The right ventricle is normal in size an d function. Normal RV systolic function using TAPSE criteria. Atria: The left atrium is mildly dilated. Right atrial size is normal. Mitral Valve: Mitral annular calcification is present. There is no mitral valve stenosis. There is trace mitral regurgitation. Tricuspid Valve: The tricuspid valve is not well visualiz ed, but is grossly normal. There is no tricuspid valve stenosis. Unable to estimate RVSP due to lack of TR visualization. Aortic Valve: Mild aortic valve thickening. Mild aorti c valve calcification. No hemodynamically significant valvular aortic stenosis. No aortic regurgitation is present. Pulmonic Valve: The pulmonic valve is not well seen, but is grossly normal. Trace pulmonic valvular regurgitation. Great Vessels: The aortic root is not well visualized b ut is probably normal size. The inferior vena cava demonstrates normal size and normal respiratory variation. Pericardium/Pleural: Minimal pericardial effusion with no ech o evidence of Tamponade. A left pleural effusion is noted. MMode/2D Measurements IVSd: 0.98 cm LVIDd: 4.8 cm LVIDs: 3.3 cm LVPWd: 0.76 cm FS: 30.7 % EDV(MOD-A4C ): 108.3 ml ESV(MOD-A4C ): 49.3 ml EF(MOD-A4C) : 54.5 % EDV(MOD-A2C): 125.3 ml ESV(MOD-A2C): 58.8 ml EDV(MOD-bp) : 119.0 ml EF(MOD-A2C): 53.1 % ESV(MOD-bp) : 54.8 ml EF(MOD-bp): 54.0 % LAV(MOD-A2C): 55.8 ml EDV (MOD-bp ) Index: 63.5 ml/m2 LAV(MOD-A4C): 67.8 ml LAV(MOD-bp): 64.2 ml LAV(MOD-bp) Indexed: 34.2 ml/m2 RWT: 0.31 c m ESV (MOD-bp) Index: 29.2 ml/m2 TAPSE (>1.6): 1.8 cm Doppler Measurements MV E max mery: 69.9 cm/sec MV V2 max: 93.2 cm/sec MV A max mery: 32.9 cm/sec MV max P.5 mmHg MV E/A: 2.1 MV V2 mean: 52.4 cm/sec MV key n P.2 mmHg MV V2 VTI: 20.2 cm MV P1/2t max mery: 70.4 cm/sec Ao V2 max: 174.7 cm/sec MV P1/2t: 70.6 msec Ao max P.2 mmHg MVA(P1/2t): 3.1 cm2 Ao V2 mean: 110.7 cm/sec Ao key n P.7 mmHg MV dec slope: 292.2 cm/sec2 Ao V2 VTI: 29.6 cm LV V1 max P.2 mmHg Med Pe ak E' Mery: 2.2 cm/sec LV V1 mean P.5 mmHg LV V1 max: 89.5 cm/sec LV V1 mean: 55.6 cm/sec LV V1 VTI: 16.6 cm Lat Peak E' Mery: 5.0 cm/sec Danyell ionless Index: 0.51 E/e' (avg): 19.4 E/e' ( lat): 13.9 E/e' (sept): 31.9 Performing Organization Address City/State/ZIP Code Phon e Number ISCV PETCT WB Initial Treatment Strategy (02/24/2021 7:42 AM DYE ROOM HELPER) Specimen Impressions [id number] - 02/24/2021 3:55 PM DYE ROOM HELPER Confluent abnormal FDG-avidity involving the spleen, pancreatic tail, and posterior stomach and FDG-avid retroperitoneal lymphadenopathy are consistent with active lymphoma. Narrative [id number] - 02/24/2021 3:55 PM DYE ROOM HELPER FULL RESULT: Examination: FDG PET/CT, 02/24/2021 7:42 AM Clinical History: 85-year-old male with recent diagnosis of follicular lymphoma. 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 Indication: Evaluate extent of FDG-avid disease, for initial treatment strategy purposes. Comparison: None. Technique: F-18 fluorodeoxyglucose (FDG) 10.1 mCi was administered intravenously via the left hand. To allow for distribution and uptake of radiotracer, the patient was asked to rest quietly for appro ximately 65 minutes. PET/CT imaging wa s performed from the skull vertex to the toes. Serum blood glucose at the time of the injection was 98 mg/dL. CT scanning was done for attenuation correction, mirtha ge registration, and diagnosis with scan parameters optimized to minimize radiation exposure to the patient. SUV measurements are reported as maximum SUV based on body weight unless otherwise specified. Findings: Head and Neck: There is no focal abnorma l metabolic activity in the brain. The sinuses are well aerated. No cervical lymphadenopathy is identified. Chest: Moderate sized bilateral pleural effusions are visible. No focal FDG- avidity is seen along the pleural surfaces. There is compressive atelectasis in the lower lobes. A benign calcified lung nodul e is visible in the medial right middle lobe. No abnormal activity is noted in the lungs. No enlarged or FDG-avid mediastinal, hilar, or axillary lymph nodes are present. Abdomen and Pelvis: Active lymphadenopat hy is identified in the retroperitoneum. This adenopathy includes confluent disease around the celiac axis which measures 3.5 x 4.8 cm with SUV of 23.1 (image 205 ) and left para-aortic disease measuring 2.8 x 3.8 cm with SUV of 26.1 (image 29). No pelvic or inguinal lymphadenopathy is present. The spleen has normal size but contains an area of FDG-avid hypoattenuation superiorly, consistent with active lymphoma. The hypodensity measures about 5 cm in diameter with SUV of 20.8 (image 196). Add ition, abnormal soft tissue involves the splenic hilum with extension into the pancreatic tail (example image 206), and focal curvilinear activity around the posterior gastric fundus has SUV of 20.5 (example image 196). Trace free fluid is visualized around th e liver capsule, in the paracolic gutters, and in the deep pelvis. Evaluation of the unenhanced liver, gallbladder, adrenal glands, and kidneys is unremarkable. Musculoskeletal: No focal FDG-avidity is noted in the imaged skeleton to suggest active lymphoma. Mildly increased activity at the right inferior pubic ramus relates to nondisplaced fracture (image 319) , and linear activity along the right rojas perior pubic ramus (image 301) is most consistent with additional posttraumatic effect orthopedic hardware is visible in the right femur. No focal abnormal activity is appreciate d in the scalp or elsewhere in the skin/subcutaneous tissues to suggest active disease. Procedure Note Macey Gasca MD - 02/24/2021 FULL RESULT: Examination: FDG PET/CT, 02/24/2021 7:42 AM Clinical History: 85-year-old male with recent diagnosis of follicular lymphoma. 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 Indication: Evaluate extent of FDG-avid disease, for initial treatment strategy purposes. Comparison: None. Technique: F-18 fluorodeoxyglucose (FDG) 10.1 mCi was administered intravenously via the left hand. To allow for distribution and uptake of radiotracer, the patient was asked to rest quietly for approximately 65 minutes. PET/CT imaging was performed f rom the skull vertex to the toes. Serum blood glucose at the time of the injection was 98 mg/dL. CT scanning was done for attenuation correction, image registration, and diagnosis with scan parameters optimized to minimi ze radiation exposure to the patient. SUV measurements are reported as maximum SUV based on body weight unless otherwise specified. Findings: Head and Neck: There is no focal abnorma l metabolic activity in the brain. The sinuses are well aerated. No cervical lymphadenopathy is identified. Chest: Moderate sized bilateral pleural effusions are visible. No focal FDG- avidity is seen along the pleural surfaces. There is compressive atelectasis in the lower lobes. A benign calcified lung nodule is visible in the medial right middle lobe. No abno rmal activity is noted in the lungs. No enlarged or FDG-avid mediastinal, hilar, or axillary lymph nodes are present. Abdomen and Pelvis: Active lymphadenopat hy is identified in the retroperitoneum. This adenopathy includes confluent disease around the celiac axis which measures 3.5 x 4.8 cm with SUV of 23.1 (image 205) and left para-aortic disease measuring 2.8 x 3.8 cm with SUV of 26.1 (image 29). No pelvic or inguinal lymphadenopathy is present. The spleen has normal size but contains an area of FDG-avid hypoattenuation superiorly, consistent with active lymphoma. The hypodensity measures about 5 cm in diameter with SUV of 20.8 (image 196). Addition, abnormal soft tissue involves the splenic hilum with extension into the pancreatic tail (example image 206), and focal curvilinear activity around the posterior gastric fundus has SUV of 20.5 (example image 196). Trace free fluid is visualized around th e liver capsule, in the paracolic gutters, and in the deep pelvis. Evaluation of the unenhanced liver, gallbladder, adrenal glands, and kidneys is unremarkable. Musculoskeletal: No focal FDG-avidity is noted in the imaged skeleton to suggest active lymphoma. Mildly increased activity at the right inferior pubic ramus relates to nondisplaced fracture (image 319), and linear activity along the right superior pubic ramus (image 301) is most consistent with additional posttraumatic effect orthopedic hardware is visible in the right femur. No focal abnormal activity is appreciate d in the scalp or elsewhere in the skin/subcutaneous tissues to suggest active disease. IMPRESSION: Confluent abnormal FDG-avidity involving the spleen, pancreatic tail, and posterior stomach and FDG-avid retroperitoneal lymphadenopathy are consistent with active lymphoma. Performing Organization Address City/State/ZIP Code Phon e Number [id number] (ABNORMAL) Hepatitis B Core Total Antibody (02/23/2021 5:20 PM DYE ROOM HELPER) HBc Total Ab-[place] Positive (A) Negative [facility] Comment: CANCER CENTER If clinically indicated, testing for Hepatitis B Core IgM antibody is necessary to differentiate between acu te and past HBV infection. Test Performed by: [place] [address] [employer]: Jaycob Izaguirre M.D. Ph.D.; CLIA# [id number] Specimen Blood Performing Organization Address [facility] Phon e Number [facility] CANCER Unless otherwise noted, [address] all lab tests performed by: Division of Pathology and Laboratory Medicine [address] [place] [address] HTLV I/II Ab Screen with Confirm (02/23/2021 5:20 PM DYE ROOM HELPER) [facility] HTLV I/II Ab Negative Negative [facility] Comment: [facility] CENTER Test Performed by: [facility] [place] [address] [employer]: Jaycob Izaguirre M.D. Ph.D.; CLIA# [id number] Specimen Blood Performing Organization Address [facility] e Number [facility] Unless otherwise noted, [address] all lab tests performed by: Division of Pathology and Laboratory Medicine [address] [place] [address] HIV-1 DNA and RNA Qual PCR (02/23/2021 5:20 PM DYE ROOM HELPER) [facility] HIV-1 DNA/RNA Undetected Undetected [facility] Qual-[place] Comment: CANCER CENTER Repeat testing in 1 to 2 months is recommended for tho se at risk of HIV-1 infection. ADDITIONAL INFORMATION ------ This test was performed using the [employer]on RealTime HIV- 1 Qualitative assay ([employer] [place] , [place]). This test was developed and its performance characteri stics determined by [facility] in a manner consistent with CLIA requirements. This test has not been cleared or approv ed by the U.S. Food and Drug Administration. Test Performed by: [facility] [place] [address] [employer]: Jaycob Izaguirre M.D. Ph.D.; CLIA# [id number] Specimen Blood Performing Organization Address [facility] Phon e Number [facility] CANCER Unless otherwise noted, [address] all lab tests performed by: Division of Pathology and Laboratory Medicine [address] TMP HIV 1/2 Ag&Ab Path Interp (02/23/2021 5:20 PM DYE ROOM HELPER) Pathologist [facility] HIV 1/2 Ag&Ab Negative for HIV-1 antigen a nd HIV-1/HIV-2 antibodies. No laboratory evidence of HIV infection. If acute HIV infection is suspected, consider testing for HIV-1 RNA. [facility] Interp Comment: CENTER MD Rip KNAPP [id number] Dictated by: ROM GUTIERREZ MD - 1 [id number] Dictated Date/Time: 02.26.20 9:57 AM DYE ROOM HELPER Transcribed Date/Time: 02.25.2021 9:57 AM DYE ROOM HELPER Electronically Signed By: MD Rip MAHAN [id number] on 02.25.2021 9:57 AM C Specimen Blood Performing Organization Address City/[facility]/ZIP Code Phon e Number [address] [address] Rapid Plasma Reagin (RPR) [Syphilis SCREENING] (02/23/2021 5:20 PM DYE ROOM HELPER) Pathologist Sig nature RPR Screening Non Reactive Non Reactive [facility] Specimen Blood Performing Organization Address City/State/ZIP [facility] Phon e Number [address] [address] TMP RPR Path Interpretation (02/23/2021 5:20 PM DYE ROOM HELPER) Pathologist [facility] TMP RPR Path The Rapid Plasma Reagin (RPR ) assay is negative. If a syphilis infection is suspected, please perform a Treponemal specific screening assay. [facility] Interpretation Comment: CENTER MD Rip KNAPP [id number] Dictated by: MD Rip KNAPP [id number] Dictated Date/Time: 02.26.20 9:57 AM DYE ROOM HELPER Transcribed Date/Time: 02.25.2021 9:57 AM DYE ROOM HELPER Electronically Signed By: MD Rip MAHAN [id number] on 02.25.2021 9:57 AM C Specimen Blood Performing Organization Address City/[facility] Phon e Number [facility] [address] [place] [id number] HIV-1/2 Antigen and Antibodies, Fourth Generation (02/23/2021 5:20 PM DYE ROOM HELPER) Pathologist [facility] HIV 1/2 Ag & Ab, Non Reactive Non Reactive [facility] 4th Gen Comment: CENTER Performed at: [facility] [address] [place] [id number] Specimen Blood Performing Organization Address [facility] Phon e Number [facility] [address] [place] [id number] TMP HCV Ab Path Interp (02/23/2021 5:20 PM DYE ROOM HELPER) Pathologist [facility] HCV Ab Path There is NO serologic evidence of Hepatitis C vi desire antibody. [facility] Interp Comment: CENTER MD Rip KNAPP [id number] Dictated by: MD Rip KNAPP [id number] Dictated Date/Time: 02.26.20 9:56 AM DYE ROOM HELPER Transcribed Date/Time: 02.25.2021 9:56 AM DYE ROOM HELPER Electronically Signed By: MD Rip MAHAN on 02.25.2021 9:56 AM C Specimen Blood Performing Organization Address City/[facility] Phon e Number [facility] [address] [place] [id number] Hepatitis C Virus Ab (02/23/2021 5:20 PM DYE ROOM HELPER) Pathologist [facility] HCVAb. Non Reactive Non Reactive [facility] Comment: CENTER Antibody detection in the im munocompromised and immunosuppressed population may be delayed or absent entirely. Therefore serial testing, correlation with other clinical findings, and supplemental testin g (if available) should be taken into consideration when interpreting the results. Performed at: [facility] [address] [place] [address] Specimen Blood Performing Organization Address [facility] Phon e Number [facility] [address] [place] [address] Hepatitis B Surface Ag w/Confirm (02/23/2021 5:20 PM DYE ROOM HELPER) Pathologist [facility] Hep Bs Ag-Huron Negative Negative [facility] Comment: [facility] Test Performed by: [address] [address] Door To Door [employer]: Jaycob Izaguirre M.D. Ph.D.; CLIA# [id number] Specimen Blood Performing Organization Address [facility] Phon e Number [facility] CANCER Unless otherwise noted, [address] all lab tests performed by: Division of Pathology and Laboratory Medicine [address] [place] [address] Hepatitis B Total Ig Core Ab (SCREENING) (anti-HBc total Ig; HBcAb total Ig) (02/23/2021 5:20 PM DYE ROOM HELPER) Pathologist Sig nature HBcAb Received See NoteComment: [facility] HBcAb was sent to a CANCER CENTER reference lab for testing. Expect results on Hepatitis B Core Total Ab within 96 hours. Specimen Blood Performing Organization Address [facility] Phon e Number [facility] CANCER Unless otherwise noted, [address] all lab tests performed by: Division of Pathology and Laboratory Medicine [address] [place] [address] CMV Ab IgG+IgM Path Review (02/23/2021 5:20 PM DYE ROOM HELPER) [facility] CMV Panel [place] Positive IgG with low IgM rojas ggests previous infection. IVIG can give false positivity. [facility] High titers of IgG can give false negative IgM. Therefore, active disease is CANCER CENTER possible but less likely with this pattern. Reviewed and Electronically signed by Pathologist: Wenceslao Young MD, PhD #[id number] Comment: Test performed by an immunoa ssay intended for the qualitative detection of IgG and IgM antibodies to Cytomegalovirus (CMV) in human serum. When equivocal results are obtained, another specimen should be collected 10-14 days later. WENCESLAO YOUNG MD, PhD - [id number] Dictated by: WENCESLAO YOUNG MD, PhD - [id number] Dictated Date/Time: 03.01.19 9:10 AM DYE ROOM HELPER Transcribed Date/Time: 03.01.2021 9:10 AM DYE ROOM HELPER Electronically Signed By: NICOLE YOUNG MD, PhD - [id number] on 03.01.2021 9:10 AM C Specimen Blood Performing Organization Address City/State/ZIP Code Phon e Number [facility] CANCER Unless otherwise noted, [address] all lab tests performed by: Division of Pathology and Laboratory Medicine [address] [place] [address] (ABNORMAL) CMV Ab IgG+IgM (02/23/2021 5:20 PM DYE ROOM HELPER) Pathologist Sig nature CMV IgM Int Negative Negative [facility] CMV IgG Int Positive (A) Negative [facility] Specimen Blood Performing Organization Address City/[facility] Phon e Number [facility] CANCER Unless otherwise noted, [address] all lab tests performed by: Division of Pathology and Laboratory Medicine [address] [place] [address] TMP Interpretation TOSHA (02/23/2021 5:20 PM DYE ROOM HELPER) TMP Interp TOSHA Patient red blood cells demo nstrate no evidence of detectable IgG antibodies or complement. [facility] Comment: CANCER FISHTAIL ROM GUTIERREZ MD - [id number] Dictated by: ROM GUTIERREZ MD - [id number] Dictated Date/Time: 02.25.20 8:32 AM DYE ROOM HELPER Transcribed Date/Time: 02.24.2021 8:32 AM DYE ROOM HELPER Electronically Signed By: MARTINA GUTIERREZ MD - [id number] on 02.24.2021 8:32 AM C Specimen Blood Performing Organization Address City/State/ZIP Code Phon e Number [facility] CANCER Unless otherwise noted, [place] [address] CENTER all lab tests performed by: Division of Pathology and Laboratory Medicine [address] (ABNORMAL) Cytokine Panel (02/23/2021 5:20 PM DYE ROOM HELPER) Tumor Nec 7.5 (H) <=7.2 pg/mL [facility] Comment: CANCER CENTER INTERPRETIVE INFORMATION: Cytokines Results are used to understand the pathophysiology of immune, infectious, or inflammatory disorders, or may be used for research purposes. This test was developed and its performance characteri stics determined by [employer] It has not been clear ed or approved by the US Food and Drug Administration. This test was performed in a CLIA certified laboratory and is intended for clinical purposes. Performed By: [employer] [address] [place] [address] Refueling Rampman: Zamzam Melissa MD Interleuk 2-Shaw <2.1 <=2.1 pg/mL [facility] Interleukin 2 980.5 (H) 175.3 - [facility] Rcpt-Shaw 858.2 pg/mL CANCER CENTER Interleukin <1.9 <=1.9 pg/mL [facility] 12-[facility]ENTER Interferon <4.2 <=4.2 pg/mL [facility] gamma-[facility] Interleukin 4-Shaw <2.2 <=2.2 pg/mL [facility] Interleukin 5-Huron <2.1 <=2.1 pg/mL [facility] Interleukin 24.4 (H) <=2.8 pg/mL [facility] 10-[place] CANCER CENTER Interleukin 2.0 <=2.3 pg/mL [facility] 13-[place] CANCER CENTER Interleukin <1.4 <=1.4 pg/mL [facility] 17-[facility] Interleukin 1 <6.5 <=6.7 pg/mL [facility] beta-[facility] Interleukin 6-Shaw 28.6 (H) <=2.0 pg/mL [facility] Interleukin 8-Huron <3.0 <=3.0 pg/mL [facility] Comment: CANCER CENTER Test Performed by: [employer] [address] [place] [address] Specimen Blood Performing Organization Address [facility]/ZIP [facility] Phon e Number [facility] CANCER Unless otherwise noted, [address] all lab tests performed by: Division of Pathology and Laboratory Medicine [address]rod Pearce HTLV I/II Ab (02/23/2021 5:20 PM DYE ROOM HELPER) HTLVI/II Ab See NoteComment: [facility] Received HTLV I/II Ab was CANCER CENTER sent to a reference lab for testing. Expect results on HTLV I/II Ab Screen with Confirm within 96 hours. Specimen Blood Performing Organization Address [facility] Phon e Number [facility] CANCER Unless otherwise noted, [address] all lab tests performed by: Division of Pathology and Laboratory Medicine Jarrod Pearce (ABNORMAL) Vitamin D 25OH (02/23/2021 5:20 PM DYE ROOM HELPER) Vitamin D 25 OH 28 (L) 30 - 100 ng/mL [facility] Comment: [facility] Reference Range: Deficiency: <10 ng/mL Insufficiency: 10-29 ng/mL Sufficiency: 30-100 ng/mL Potential toxicity: >100 ng/mL Specimen Blood Performing Organization Address [facility] Phon e Number [facility] Unless otherwise noted, [address] all lab tests performed by: Division of Pathology and Laboratory Medicine Jar[address] Pearce Hepatitis B Surface Ag (02/23/2021 5:20 PM DYE ROOM HELPER) Pathologist Sig nature HBsAg Received See NoteComment: [facility] HBsAg was sent to a CANCER CENTER reference lab for testing. Expect results on Hepatitis B Surface Antigen w/ Confirm within 96 hours. Specimen Blood Performing Organization Address [facility] Code Phon e Number [facility] CANCER Unless otherwise noted, [address] all lab tests performed by: Division of Pathology and Laboratory Medicine [address] Pearce Direct Antiglobulin Test (02/23/2021 5:20 PM DYE ROOM HELPER) Pathologist Sig nature TOSHA Result IgG neg,C3 neg [facility] Specimen Blood Performing Organization Address City/[facility]/ZIP Code Phon e Number [facility] CANCER Unless otherwise noted, [address] all lab tests performed by: Division of Pathology and Laboratory Medicine [address] TSH (02/23/2021 5:20 PM DYE ROOM HELPER) Pathologist Sig nature TSH 1.62 0.27 - 4.20 mcunit/mL [facility] CAN ER CENTER Specimen Blood Performing Organization Address City/[facility]/ZIP Code Phon e Number [facility] CANCER Unless otherwise noted, [address] all lab tests performed by: Division of Pathology and Laboratory Medicine [address] T4 (02/23/2021 5:20 PM DYE ROOM HELPER) Pathologist Sig nature T4 7.0 4.5 - 11.7 mcg/dL [facility] C ENTER Specimen Blood Performing Organization Address [facility] Phon e Number [facility] CANCER Unless otherwise noted, [address] all lab tests performed by: Division of Pathology and Laboratory Medicine [address] Total Protein (02/23/2021 5:20 PM DYE ROOM HELPER) Pathologist Sig nature Total Protein 6.4 6.4 - 8.3 g/dL [facility] [address] Specimen Blood Performing Organization Address [facility] Phon e Number [facility] CANCER Unless otherwise noted, [address] all lab tests performed by: Division of Pathology and Laboratory Medicine [address] IgA (02/23/2021 5:20 PM DYE ROOM HELPER) Pathologist Sig nature IgA 225 85 - 499 mg/dL [facility] ER Specimen Blood Performing Organization Address [facility] Phon e Number [facility] CANCER Unless otherwise noted, [address] all lab tests performed by: Division of Pathology and Laboratory Medicine [address] (ABNORMAL) IgM (02/23/2021 5:20 PM DYE ROOM HELPER) Pathologist Sig nature IgM 331 (H) 35 - 242 mg/dL [facility] CENT ER Specimen Blood Performing Organization Address [facility] Phon e Number [facility] CANCER Unless otherwise noted, [address] all lab tests performed by: Division of Pathology and Laboratory Medicine [address] IgG (02/23/2021 5:20 PM DYE ROOM HELPER) Pathologist Sig nature IgG 885 610 - 1,616 mg/dL [facility] C ENTER Specimen Blood Performing Organization Address City/State/ZIP Code Phon e Number [facility] CANCER Unless otherwise noted, [address] all lab tests performed by: Division of Pathology and Laboratory Medicine [facility] [address] (ABNORMAL) Beta 2 Microglobulin (02/23/2021 5:20 PM DYE ROOM HELPER) Pathologist Sig nature Beta2 Microglob 2.7 (H) 0.8 - 2.3 mg/L [facility] Specimen Blood Performing Organization Address City/State/ZIP Code Phon e Number [facility] CANCER Unless otherwise noted, [address] all lab tests performed by: Division of Pathology and Laboratory Medicine [address] [place] [address] [employer] Electrolyte Panel (02/23/2021 5:20 PM DYE ROOM HELPER) Pathologist Sig nature Sodium Lvl 139 136 - 145 mEq/L [facility] Potassium Lvl 3.5 3.5 - 5.1 mEq/L [facility] Chloride 103 98 - 107 mEq/L [facility] CO2 22 22 - 29 mEq/L [facility] Anion Gap 14 4 - 14 mEq/L [facility] Specimen Blood Performing Organization Address City/[facility] Phon e Number [facility] CANCER Unless otherwise noted, [address] all lab tests performed by: Division of Pathology and Laboratory Medicine [address] [place] [address] [employer] COVID-19 (SARS-CoV-2)Asymptomatic-LT (02/23/2021 4:29 PM DYE ROOM HELPER) COVID19 Not Detected Not Detected [facility] (SARS-CoV-2) [facility] COVID19 SARS Inpatient Admission [facility] Indication [facility] Covid 19 Comment See Note [facility] Comment: [facility] The kayla SARS-CoV-2 nucleic acid test for use on the kayla Flakita System is a real-time RT-PCR assay intended for the qualitative detection of SARS-CoV-2 (COVID-19) viral RNA in nasopharyngeal swabs from either individuals suspected of COVID-19 by their healthcare provider or from any individual, including individuals without symptoms or other reasons to suspect COVID-19. A fact sheet for patients provided by the peer support specialist ([employer]) can be reviewed at: https://www.fda.gov/media/15 2697/download. A fact sheet for Health Care providers is provided by the peer support specialist ([employer]) and can be reviewed at: https://www.fda.gov/media/856151/download Results must be interpreted within the context of all relevant clinical and laboratory findings and should not form the sole basis for a diagnosis or treatment decision. Positive results do not rule out bacterial infection or co- infection with other viruses. Negative results do not preclude SARS-CoV-2 infection and must be combined with clinical observations, patient history, and/or epidemiological information. This assay has been authoriz ed by the FDA for use only under Emergency Use Authorization (EUA) in laboratories that have been CLIA-certified to perform moderate-complexity and high-complexity tests. The Microbiology Laboratory at [facility] [place], CLIA Accreditation # [id number] and CAP Accreditation #[id number], verified the performance characteristics of this assay. Internal controls are used to monitor all stages of the test process. Specimen Nasopharyngeal Swab Performing Organization Address City/State/ZIP Code Phon e Number [facility] CANCER Unless otherwise noted, [address] all lab tests performed by: Division of Pathology and Laboratory Medicine [facility]5 [facility] Er Pathology Outside Interpretation (02/04/2021) Materials Accession#, Stained, Block, Unstained Collected Receiv ed [employer] [facility] Received A. [id number], 29 SS, 0 BLOCKS, 0 USS 02/04/2021 022 Diagnosis Retroperitoneal lymph node, needle biopsy ([id number] ME: Collection date 02/04/2021): [employer] [facility] at 12 :43 PM Comment The histologic sections show multiple small fragments of fibroadipose tissue infiltrated by an atypical lymphoid infiltrate composed predominantly of large cells with slight nuclear irregularities and v [facility] ariable amounts of cytoplasm . Apoptotic cells and debris are occasionally noted, though no brandi necrosis is appreciated. In some areas, the infiltrate has an angiocentric distribution. The infiltrat ion pattern is difficult to discern accurately on the limited sample. Multiple immunohistochemical stains, performed elsewhere, were performed on the specimen and provided for review. The infiltrating cells are positive for CD20, CD79a, PAX5, Bcl-2, BCL6, with subsets po sitive for CD5, MUM1 (30%) o r c-Myc (20%). The cells are negative for CD10, CD21, CD23, CD30, ALK1, BCL1 (cyclin D1), SADIA and pancytokeratin. The proliferation rate by Ki-67 staining is approximately 60%. Per the provided report, flu orescence in situ hybridization was performed on the sample. No rearrangements of MYC, BCL2, BCL6 or MYC amplification was detected; a copy of the original report was not provided for review. The immunohistochemical find ings for cell of origin classification, using the method of Martin et al., are somewhat equivocal (Blood. 2003;103(1);275-82), as the tumor lacks expression of CD10 but sh ows expression of BCL6. The percentage of MUM1 positive neoplastic cells is estimated at 30% which is at the cutoff for positivity. According to the clinical in formation available in the [facility] medical records, the patient presented in January 2021 with decreased appetite, weight loss, nausea and constipation. Upon radiograph ic evaluation mass lesions w ere identified in the cardia of the stomach and spleen. Adenopathy was also noted in the celiac trunk and retroperitoneum. The patient underwent the biopsy reviewed in this report. The patient had no history of lymphoma prior to this biopsy. 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 No additional testing was performed on this sample at [facility]. Disclaimer "Some tests reported here [facility] may have been developed and performance characteristics determined by [facility] Pathology and Laboratory Medicine. These tests have not been specifically cleared or approved by the U.S. Food and Drug Administration. If applicable, controls were reviewed and showed appropriate reactivity." Specimen Tissue Performing Organization Address City/State/ZIP Code Phon e Number [facility] [place] [address] [address] after 04/11/2020 Insurance Payer Benefit Plan / Subscriber ID Effective Dates Phone Addre ss Type Group AETNA MEDICARE AETNA MEDICARE [id number] 2021-Presen [address] [place] [address] Advance Directives Code Status Date Activated Date Inactivated Comments DNR 03/05/2021 10:41 AM 03/24/2021 9:26 PM DNR obtained from: Legal Guardian or MPOA Full Code 02/23/2021 2:13 PM 03/05/2021 10:41 AM Full Code 10/29/2018 6:58 PM 11/12/2018 9:54 PM Full Code 10/10/2018 10:29 AM 10/15/2018 8:46 PM Care Teams Supervisor Hot Dip Plating Relationship Specialty Start Date End Date Kuldeep Melgoza MD PCP - External Dermatology 08/16/18 [address] [facility] [place] [address] Roshan Sauceda MD PCP - General Head and Neck Surgery 08/16/[address] [place] [id number] Ronn Wilson, PCP - External Primary Family Practice 09/04/17 MD Care Provider [address] [facility] [address] [place], [place] [id number] oPllo Navarro PCP - External Follow Cardiology 09/04/17 MD Rae Up A [address] [facility] [address] [place], [place] [address]
--- OUTSIDE RECORDS SUMMARY | 2021-04-11 14:32 | XMS REPORT | Continuity of Care Document ---
:1935 Author Organization [facility] t Address [address] [place] [address] Dr. Dickerson [address] [place] [id number] Care Team Providers Name Role Phone [phone] Primary Care Physician Unavailable SYSTEM, NOT IN Attending Clinician Unavailable Sumeet BRADLEY Attending Clinician Unavailable Isak MANTILLA Attending Clinician Unavailable ROXANA Attending Clinician Unavailable Amador LOCKETT PhD Attending Clinician Miguelangel Springer MD Attending Clinician Miguelangel Soto MD Attending Clinician Miguelangel Delatorre MD Attending Clinician Roxana LOCKETT Attending Clinician La DIEGO Attending Clinician Unavailable Miguelangel DELATORRE Attending Clinician Unavailable Radha Whiting MD Attending Clinician Bonifacio Woodward MD Attending Clinician Mireille LOCKETT, S. Attending Clinician Demarcus COLE L Attending Clinician April LEGER Attending Clinician Unavailable Komal LOCKETT, April Attending Clinician Jeffrey LOCKETT, P Attending Clinician Kenny Corral MD Attending Clinician James NG Attending Clinician Unavailable AMADOR Attending Clinician Unavailable Swetha INSTITUTIONAL COOK Attending Clinician Unavailable Tahir MAGALLANES Attending Clinician Kirk LOCKETT, A Attending Clinician Only, Test Attending Clinician Unavailable Doctor Unassigned, Name Attending Clinician Unavailable Isak Mantilla MD Attending Clinician Sarah Ortiz MD Attending Clinician Veronica LOCKETT, Betito Attending Clinician Pob, Lab Main Attending Clinician Unavailable Dora LOCKETT Attending Clinician KIRK, Sumeet Admitting Clinician Unavailable Isak MANTILLA Admitting Clinician Unavailable AMADOR Admitting Clinician Unavailable Kirk LOCKETT, Sumeet Admitting Clinician Payers Payer Name Policy Type Policy Number Effective Date Expiration Date S vernon [employer] MANAGED [address] 2020 MEDICARE PPO-FERNANDO 00:00:00 [employer]ET[employer] MEDICARE [id number] 2020 HMO POS PPO 00:00:00 [employer] MEDICARE [id number] 2013 2021 PPO 00:00:00 00:00:00 Problems Condition Condition Condition Status Onset Resolution Last Treating Co mments Source Name Details Category Date Date Treatment Clinician Date Severe Severe Disease Active protein-ca protein-ca 1-24 An derso simon simon 00:00: n malnutriti malnutriti 00 on on 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 1-18 An derso disease disease 00:00: n 00 Altered Altered Disease Active mental mental 1-05 Anderso status status 00:00: n 00 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 multiple multiple sites sites Atrial Atrial Disease Active 2020-02 fibrillati fibrillati 2-29 An derso on on 00:00: n 00 Acute Acute Disease Active 2020-02 congestive congestive 2-29 An derso heart heart 00:00: n failure failure 00 Coronary Coronary Disease Active 2020-02 arterioscl arterioscl An derso erosis erosis 00:00: n 00 Parkinson' Parkinson' Disease Active 2020-02 M D s disease s disease Arya rso 00:00: n 00 Hypertensi Hypertensi Disease Active 2020-02 M D on on Anderso 00:00: n 00 Gastroesop Gastroesop Disease Active 2020-02 M D hageal hageal Anderso reflux reflux 00:00: n disease disease 00 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 00:00: n of of 00 extranodal extranodal site site Decrease Decrease Disease Active 2020-02 MD in in Anderso appetite appetite 00:00: n 00 Physical Physical Disease Active 2020-02 deconditio deconditio An derso sherry sherry 00:00: n 00 Nausea Nausea Disease Active 2020-02 MD Anderso 00:00: n 00 Slow Slow Disease Active 2020-02 transit transit Anderso constipati constipati 00:00: n on on 00 Pain due Pain due Disease Active 2020-02 MD to to Anderso malignancy malignancy 00:00: n 00 NSTEMI NSTEMI Disease Active [facility] - elevated elevated 00:00: Medica l myocardial myocardial 00 Ce nter infarction infarction ) ) FEVER Diagnosis Active 2018-022019-01-27 Mem oria -14 22:24:00 l FEVER 00:00: [place] 00 Active 01/09/2019 [place] Unexplaine Unexplaine Disease Active 2018-02 Last M [...] hydrated. 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 MD cognitive cognitive 0-22 Assessmen A nderso impairment [...] Added automatic ally from request for surgery [id number] Encounter Encounter Disease Active Overview: for other [...] 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 [id number] Carotid Duplex: <50% plaque within right ICA, normal left ICA, antegrade flow within bilateral vertebral arteriesO records from [place], [place] Tripp t Cardiolog yreviewed [facility] 05/09/17: LAD prox patent stent [...] 00:00: n of scalp of scalp 00 Carpal Problem Active 2021-03-11 Memor ia tunnel 23:20:25 l syndrome Carpal Clifford n (disorder) tunnel syndrome (disorder) Active Problem 03/11/2021 [facility] Paresthesi Problem Active 2021-03-11 M emoria a 23:20:25 l (finding) Philip Paresthesi a (finding) Active Problem 03/11/2021 [facility] Tremor Problem Active 2021-03-11 Memor ia (finding) 23:20:25 l Tremor Philip (finding) Active Problem 03/11/2021 [facility] Amnesia Problem Active 2021-03-11 Pepe micki (finding) 23:20:25 l Amnesia Philip (finding) Active Problem 03/11/2021 [facility] Hallucinos Hallucinos Disease Active M D is is Anderso n History of Past Illness Condition Condition Condition Status Onset Resolution Last Treating Co mments Source Name Details Category Date Date Treatment Clinician Date Chills Problem 2018-022019-01-21 2019-01-21 M emoria (without -14 22:44:12 22:44:12 l fever) Chills 18:00: [place] (without 00 fever) 01/09/2019 01/21/2019 [place] Allergies, Adverse Reactions, Alerts Allergy Allergy Status Severity Reaction(s) Onset Inactive Treating Comm ents Source Name Type Date Date Clinician CODEINE DRUG Active Unknown-Cmnt Uni vers INGREDI - ity of 00:00: [place] 00 Medical Branch CEPHALEX DRUG Active Unknown-Cmnt Un mary IN INGREDI 09-14 ity of 00:00: [place] 00 Medical Branch Codeine Propensi Active Unknown - Univ ers ty to See comments 09-14 ity of adverse 00:00: [place] reaction 00 Medical s Branch Cephalex Propensi Active Unknown - Uni vers in ty to See comments 09-14 ity of adverse 00:00: [place] reaction 00 Medical s Branch codeine codeine Active Memoria l [place] Cipro Cipro Active Memoria l Philip Keflex Keflex Active Memoria l [place] NO KNOWN Drug Active Univers ALLERGIE Class ity of S [facility] NO KNOWN Allergy Active [facility] ALLERGIE S Family History Family Member Diagnosis Comments Start Date Stop Date Source Maternal grandmother Diabetes MD Sumeet grant Natural mother -Colon cancer MD Koenig rsdion Natural mother Hypertension Willis son Family member Bleeding Disorder MD Sumeet grant Family member Coronary artery And lara disease Family member Stroke MD [facility] Family member VTE MD [facility] Social History Social Habit Start Date Stop Date Quantity Comments Source History of tobacco Current smoker MD [facility] use Exposure to Not sure University of SARS-CoV-2 (event) [facility] History SDOH [facility] - Alcohol Comment Medical C enter Alcohol intake 2021-03-03 2021-03-03 Ex-drinker MD Adam romero 00:00:00 00:00:00 (finding) History SDNE 2020-09-26 2020-09-[address] [facility] - Alcohol Frequency 00:00:00 00:00:00 Medical Center History SDOH 2020-09-26 2020-09-[address] [facility] - Alcohol Std Drinks 00:00:00 00:00:00 Medica l Center History SDOH 2020-09-26 2020-09-[address] [facility] - Alcohol Binge 00:00:00 00:00:[address] Social History 2020-08-09 2020-08-09 [facility] faith 20:37:37 20:37:37 Cigarettes smoked 2018-09-04 2018-09-04 MD Arya mitchell current (pack per 00:00:00 00:00:00 day) - Reported Cigarette 2018-09-04 2018-09-04 MD [facility] pack-years 00:00:00 00:00:00 Tobacco use and 2018-09-04 2018-09-04 Former smokeless MD [facility] exposure 00:00:00 00:00:00 tobacco user Sex Assigned At [birth year] [facility] [place] y of 00:00:00 00:00:[address] [facility] Smoking Status Start Date Stop Date Source Unknown if ever smoked [facility] Never smoker [facility] Social History 2019-01-10 07:34:37 2019-01-10 07:34:37 [facility] Medications Ordered Filled Start Stop Current Ordering Indication Dosage Frequency Signature Comments Components Source Medication Medication Date Date Medication? Clinician (SIG) Name Name metoprolol 2021- No 50mg Take 50 mg MD tartrate 03-24 by mouth Darron o (LOPRESSOR) 19:21: 00:00 twice n 50 mg 42 :00 daily. tablet aspirin 81 2021- No 81mg Take 81 mg MD mg EC 03-24 by mouth Anderso tablet 19:21: 00:00 daily. n 42 :00 bacitracin 2021- No Apply MD 500 03-24 topically Anderso unit/gram 19:21: 00:00 to n ointment 42 :00 affected area(s) twice daily. diphenhydrA 2021- No 50mg Take 50 mg MD MINE 03-24 by mouth Anderso (BENADRYL) 19:21: 00:00 nightly as n 25 mg 42 :00 needed. capsule traMADol Yes 50mg Take 50 mg MD (ULTRAM) 50 03-24 by mouth Arya rso mg tablet 19:21: every 6 n 38 (six) hours as needed. famotidine Yes 20mg Take 20 mg M D (PEPCID) 20 03-24 by mouth 2 An derso mg tablet 19:21: (two) n 38 times a day as needed. furosemide Yes Acute 40mg Take 1 MD (LASIX) 40 1-15 congestive tablet (40 Anderso mg tablet 00:00: heart mg) by n 00 failure mouth daily. apixaban Yes Paroxysmal 5mg Take 1 M D (ELIQUIS) 5 1-14 atrial tablet (5 A nderso mg tablet 00:00: fibrillatio mg) by n 00 n mouth every 12 (twelve) hours. senna-docus Yes Slow 2{tbl} Take 2 MD ate 1-14 transit tablets by Darron paige (SENOKOT-S) 00:00: constipatio mouth n 8.6 mg-50 00 n twice mg tablet daily. polyethylen Yes Slow 17g Take 17 g M D e glycol 1-14 transit by mouth Arya rso (MIRALAX) 00:00: constipatio daily. n 17 g packet 00 n amLODIPine 2020-02 Yes Hypertensio 5mg Take 1 MD (NORVASC) 5 2-31 n tablet (5 And erso mg tablet 00:00: mg) by n 00 mouth daily. Hold for systolic blood pressure less than 110 mmHg. carbidopa-l 2020-02 Yes Parkinson's 1{tbl} Take 1 MD evodopa 2-30 disease tablet by Arya rso (SINEMET) 00:00: mouth 3 n 25 mg-100 00 (three) mg per times a tablet day. sotalol 2020-02 Yes Chronic 80mg Take 1 MD (BETAPACE) 2-30 atrial tablet (80 A nderso 80 mg 00:00: fibrillatio mg) by n tablet 00 n, not mouth otherwise every 12 specified (twelve) hours. Donepezil 2020-02 Yes 5 mg = 1 Pepe micki hydrochlori 0-12 tab, PO, l de 5 MG 14:55: Bedtime, # Herm ayush Oral Tablet 00 90 tab, 1 [Aricept] Refill(s), Pharmacy: [facility] #[id number], 175.26, cm, 07/19/20 14:31:00 CDT, Height, 75.909, kg, 07/19/20 14:31:00 CDT, Weight Pramipexole 2020-02 Yes 0.125 mg = Memoria dihydrochlo 0-12 1 tab, PO, l ride 0.125 14:54: TID, # 270 H ermann MG Oral 00 tab, 3 Tablet Refill(s), [Mirapex] Pharmacy: [facility] #[id number], 175.26, cm, 07/19/20 14:31:00 CDT, Height, 75.909, kg, 07/19/20 14:31:00 CDT, Weight carbachoL 2020-02 Yes PRN, Univers (MIOSTAT) 0-06 Starting ity of 0.01 % 15:28: on Wed [place] intraocular 00 12/01/20 at Me dical injection 1028, Branch Until Discontinu ed, [...] Wed [place] intraocular 00 :40 12/01/20 at Me dical injection 1028, Branch Until Sun12/01/20 at 1316, Routine, Intra-op dexamethaso 2020-02- No PRN, Unive rs ne 0-06 10-06 Starting ity of [...] 0-06 Starting ity of amethasone 15:27: on Sun [place] (MAXITROL) 00 12/01/20 at [facility] ica 3.5 1027, Branch mg/g-10,000 Until unit/g-0.1 Discontinu % ed, ophthalmic Routine, ointment Intra-op neomycin-po 2020-02- No PRN, Unive rs lymyxin-dex 0-06 10-06 Starting ity of amethasone 15:27: 18:16 on Wed [place] (MAXITROL[place] 00 :40 12/01/20 at [facility] ica 3.5 1027, Branch mg/g-10,000 Until Wed unit/g-0.1 12/01/20 at % 1316, ophthalmic Routine, ointment Intra-op balanced 2020-02 Yes PRN, Univers salt irrig 0-06 Starting ity o f soln comb1 15:23: on Sun (BSS PLUS) 00 12/01/20 at [facility] ica ophthalmic 1023, Branch solution Until 500 mL bag Discontinu ed, Routine, Intra-op EPINEPHrine 2020-02 Yes PRN, Univer s 1:1,000 (1 0-06 Starting ity o f mg/mL) 15:23: on Sun (ADRENALIN) 00 12/01/20 at De dical injection 1023, Branch Until Discontinu ed, Routine, Intra-op balanced 2020-02- No PRN, Univers salt irrig 0-06 10-06 Starting ity of soln comb1 15:23: 18:16 on Sun [place] (BSS PLUS) 00 :40 12/01/20 at [facility] ica ophthalmic 1023, Branch solution Until Wed 500 mL bag 12/01/20 at 1316, Routine, Intra-op EPINEPHrine 2020-02- No PRN, Unive rs 1:1,000 (1 0-06 10-06 Starting ity of mg/mL) 15:23: 18:16 on Sun [place] (ADRENALIN) 00 :40 12/01/20 at De dical injection 1023, Branch Until 10/6/21 at 1316, Routine, Intra-op water for 2020-02 Yes PRN, Univers irrigation 0-06 Starting ity o f irrigation 15:19: on Sun [place] solution 00 12/01/20 at [facility] al 1019, Branch Until Discontinu ed, Routine, Intra-op water for 2020-02- No PRN, Univers irrigation 0-06 10-06 Starting ity of irrigation 15:19: 18:16 on Sun [place] solution 00 :40 12/01/20 at [facility] al 1019, Branch Until Sun12/01/20 at 1316, Routine, Intra-op Hyaluronida 2020-02 Yes PRN, Univer s se, Human 0-06 Starting ity of Recomb. 15:15: on Sun (HYLENEX) 00 12/01/20 at [facility] injection 1015, Branch Until Discontinu ed, Routine, Intra-op eye block 2020-02 Yes PRN, Univers syringe 11 0-06 Starting ity o f mL 15:15: on Sun [place] 00 12/01/20 at [facility] 1015, Branch Until Discontinu ed, Intra-op Hyaluronida 2020-02- No PRN, Unive rs se, Human 0-06 10-06 Starting ity o f Recomb. 15:15: 18:16 on Sun [place] (HYLENEX) 00 :40 12/01/20 at [facility] injection 1015, Branch Until Sun12/01/20 at 1316, Routine, Intra-op eye block 2020-02- No PRN, Univers syringe 11 0-06 10-06 Starting ity of mL 15:15: 18:16 on Sun [place] 00 :40 12/01/20 at [facility] 1015, Branch Until Sun12/01/20 at 1316, Intra-op mydriatic 2020-02- No .5mL 0.5 mL, Univ ers #5 0-06 10-06 Left Eye, ity of ophthalmic 14:00: 13:58 ONCE, 1 Hernán as solution 00 :00 dose, On Medical 0.5 mL [facility] syringe 12/01/20 at 0900, Routine, DSU Pre-op [...] Pre-op lactated 2020-02- No 1000mL at 42 Univ rs ringers IV 0-06 10-06 mL/hr, ity of infusion 14:00: 13:56 1,000 mL, Hernán as 1,000 mL 00 :00 IV Medical Infusion, Branch ONCE, 1 dose, On 12/01/20 at 0900, Routine, DSU Pre-op aspirin 81 2020-02 Yes 81mg Take 81 mg U nivers mg EC 0-06 by mouth. ity of tablet 11:16: [address] famotidine 2020-02 Yes 20mg Take 20 mg U nivers 20 mg 0-06 by mouth. ity of tablet 11:16: [address] aspirin 81 2020-02 Yes 81mg Take 81 mg U nivers mg EC 0-06 by mouth. ity of tablet 11:16: [address] famotidine 2020-02 Yes 20mg Take 20 mg U nivers 20 mg 0-06 by mouth. ity of tablet 11:16: [address] sotaloL Yes life-threat 80mg Q.5D Take [address] [facility] (BETAPACE) 8-04 ening by mouth 2 Francy kes - 80 MG 17:43: ventricular (two) Medi mendez tablet 16 tachycardia times Cente r daily. clopidogreL Yes acute 75mg QD Take [address] [facility] (PLAVIX) 75 8-04 coronary by mouth [facility] - mg tablet 17:43: syndrome daily. De dical [address] [place] [address] atorvastati Yes 80mg QD Take [address] [facility] n (LIPITOR) 8-04 by mouth Luke s - 80 MG 17:43: daily. Medical tablet 16 Center furosemide 0 Yes 80mg Q.[id number] Take [address] [facility] (LASIX) 80 8-04 [id number] by mouth 3 [facility] - MG tablet 17:43: 3D (three) Medic al 16 times Center daily. sotaloL 0 Yes life-threat 80mg Q.5D Take [address] [facility] (BETAPACE) 8-04 ening by mouth 2 Francy kes - 80 MG 17:43: ventricular (two) Medi mendez tablet 16 tachycardia times Cente r daily. clopidogreL 0 Yes acute 75mg QD Take [address] [facility] (PLAVIX) 75 8-04 coronary by mouth [facility] - mg tablet 17:43: syndrome daily. [address] atorvastati Yes 80mg QD Take [address] n (LIPITOR) 8-04 by mouth Luke s - 80 MG 17:43: daily. Medical tablet 16 [place] furosemide Yes 80mg Q.[id number] Take [address] [facility] (LASIX) 80 8-04 [id number] by mouth 3 [facility] - MG tablet 17:43: 3D (three) Medic al 16 times Center daily. sotaloL Yes life-threat 80mg Q.5D Take [address] (BETAPACE) 8-04 ening by mouth 2 Francy kes - 80 MG 17:43: ventricular (two) Medi mendez tablet 16 tachycardia times Cente r daily. clopidogreL Yes acute 75mg QD Take [address] [facility] (PLAVIX) 75 8-04 coronary by mouth [facility] - mg tablet 17:43: syndrome daily. [address] atorvastati Yes 80mg QD Take [address] [facility] n (LIPITOR) 8-04 by mouth Luke s - 80 MG 17:43: daily. Medical tablet [address] [place] [address] furosemide 0 Yes 80mg Q.[id number] Take [address] [facility] (LASIX) 80 8-04 [id number] by mouth 3 [facility] - MG tablet 17:43: 3D (three) Medic al 16 times Center daily. nitroglycer 2020- No .4mg Place 0.[address] [facility] in 804 08-04 mg under [facility]ukes - (NITROSTAT) 17:35: 00:00 the tongue Medical 0.4 MG SL 56 :00 every 5 Center tablet (five) minutes as needed for Chest pain Put 1 pill under tongue every 5min as needed for chest pain.No more than 3 doses in 15min.Call 911 if pain unrelieved 5min after 1st dose . nitroglycer 2021-0 2021- No .4mg Place 0.4 [...] unrelieved 5min after 1st dose . nitroglycer 2021-0 2021- No .4mg Place 0.[address] [facility] in 8- 08-04 mg under [facility]ukes - (NITROSTAT) 17:35: 00:00 the tongue Medical 0.4 MG SL 56 :00 every 5 Center tablet (five) minutes as needed for Chest pain Put 1 pill under tongue every 5min as needed for chest pain.No more than 3 doses in 15min.Call 911 if pain unrelieved 5min after 1st dose . nitroglycer 2021-[address] [facility] in 8-04 tablet [facility]ukes - (NITROSTAT) 00:00: (0.4 mg Med ical 0.4 MG SL 00 total) Center tablet under the tongue every 5 (five) minutes as needed for Chest pain Put 1 pill under tongue every 5min as needed for chest pain.No more than 3 doses in 15min.Call 911 if pain unrelieved 5min after 1st dose . nitroglycer 2021-[address] [facility] in 8-04 tablet [facility] - (NITROSTAT) 00:00: (0.4 mg Med ical 0.4 MG SL 00 total) Center tablet under the tongue every 5 (five) minutes as needed for Chest pain Put 1 pill under tongue every 5min as needed for chest pain.No more than 3 doses in 15min.Call 911 if pain unrelieved 5min after 1st dose . nitroglycer 2021-[address] [facility] in 8-04 tablet [facility] - (NITROSTAT) 00:00: (0.4 mg [...] EC 09-15 by mouth. ity of tablet 20:06: [address] famotidine Yes 20mg Take 20 mg U nivers 20 mg 09-15 by mouth. ity of tablet 20:06: [address] aspirin 81 0 Yes 81mg Take 81 mg U nivers mg EC 09-15 by mouth. ity of tablet 20:06: [address] famotidine Yes 20mg Take 20 mg U nivers 20 mg 09-15 by mouth. ity of tablet 20:06: [address] balanced 0 Yes PRN, Univers salt irrig 09-15 Starting ity o f soln comb1 18:58: Sun [place] (BSS PLUS) 00 09/15/20 at Med ical ophthalmic 1358, Branch solution Until 500 mL bag Discontinu ed, Routine, Intra-op carbachoL Yes PRN, Univers (MIOSTAT) 09-15 Starting ity of 0.01 % 18:58: Sun [place] intraocular 00 09/15/20 at De dical injection 1358, Branch Until Discontinu ed, Routine, Intra-op dexamethaso Yes PRN, Univer s ne 09-15 Starting ity of (DECADRON 18:58: Sun [place] PHOSPHATE) 00 09/15/20 at Med ical injection 1358, Branch Until Discontinu ed, Routine, Intra-op DUOVISC 0 Yes PRN, Univers (DUOVISC 09-15 Starting ity of VISCO 18:58: Sun [place] ELASTIC) 3 00 09/15/20 at Med ical %-4 %(0.5 1358, Branch mL) 1 % Until (0.55 mL) Discontinu intraocular ed, injection Routine, Intra-op balanced 202- No PRN, Univers salt irrig 09-15 Starting ity of soln comb1 18:58: 22:06 [facility] (BSS PLUS) 00 :51 09/15/20 at [facility] ical ophthalmic 1358, Branch solution Until Wed 500 mL bag 09/15/20 at 1706, Routine, Intra-op carbachoL 2020- No PRN, Univers (MIOSTAT) 09-15 Starting ity o f 0.01 % 18:58: 22:06 Wed [place] intraocular 00 :51 09/15/20 at De dical injection 1358, Branch Until Sun09/15/20 at 1706, Routine, Intra-op dexamethaso 2020- No PRN, Unive rs ne 09-15 Starting ity of (DECADRON 18:58: 22:06 [facility] PHOSPHATE) 00 :51 09/15/20 at [facility] ical injection 1358, Branch Until Sun09/15/20 at 1706, Routine, Intra-op DUOVISC 2020- No PRN, Univers (DUOVISC 09-15 Starting ity of VISCO 18:58: 22:06 [facility] ELASTIC) 3 00 :51 09/15/20 at [facility] %-4 %(0.5 1358, Branch mL) 1 % Until Wed (0.55 mL) 09/15/20 at intraocular 1706, injection Routine, Intra-op neomycin-po Yes PRN, Univer s lymyxin-dex 09-15 Starting ity of amethasone 18:57: [facility] (MAXITROL) 00 09/15/20 at [facility] ical 3.5 1357, Branch mg/g-10,000 Until unit/g-0.1 Discontinu % ed, ophthalmic Routine, ointment Intra-op neomycin-po 2020- No PRN, Unive rs lymyxin-dex 09-15 Starting ity of amethasone 18:57: 22:06 [facility] (MAXITROL) 00 :51 09/15/20 at [facility] ical 3.5 1357, Branch mg/g-10,000 Until Wed unit/g-0.1 09/15/20 at % 1706, ophthalmic Routine, ointment Intra-op EPINEPHrine Yes PRN, Univer s 1:1,000 (1 09-15 Starting ity o f mg/mL) 18:53: Sun [place] (ADRENALIN) 00 09/15/20 at De dical injection 1353, Branch Until Discontinu ed, Routine, Intra-op EPINEPHrine 2020- No PRN, Unive rs 1:1,000 (09-15 Starting ity of mg/mL) 18:53: 22:06 [place] (ADRENALIN) 00 :51 09/15/20 at De dical injection 1353, Branch Until Sun09/15/20 at 1706, Routine, Intra-op water for Yes PRN, Univers irrigation 09-15 Starting ity o f irrigation 18:50: Sun [place] solution 00 09/15/20 at Medic al 1350, Branch Until Discontinu ed, Routine, Intra-op water for 2020- No PRN, Univers irrigation 09-15 Starting ity of irrigation 18:50: 22:06 [facility] solution 00 :51 09/15/20 at Medic al 1350, Branch Until Sun09/15/20 at 1706, Routine, Intra-op Hyaluronida Yes PRN, Univer s se, Human 09-15 Starting ity of Recomb. 18:47: Sun [place] (HYLENEX) 00 09/15/20 at [facility] mendez injection 1347, Branch Until Discontinu ed, Routine, Intra-op Hyaluronida 2020- No PRN, Unive rs se, Human 09-15 Starting ity o f Recomb. 18:47: 22:06 [facility] (HYLENEX) 00 :51 09/15/20 at Medi mendez injection 1347, Branch Until Sun09/15/20 at 1706, Routine, Intra-op eye block Yes PRN, Univers syringe 09-15 Starting ity o f mL 18:45: Sun [place] 00 09/15/20 at [facility] 1345, Branch Until Discontinu ed, Intra-op eye block 2020- No PRN, Univers syringe 11 09-15 Starting ity of mL 18:45: 22:06 [facility] [place] 00 :51 09/15/20 at [facility] 1345, Branch Until Sun09/15/20 at [...] IV Medical Infusion, Branch ONCE, 1 dose, 09/15/20 at 1245, Routine, DSU Pre-op mydriatic 2020- No .5mL 0.5 mL, Univ ers #5 09-15 Right Eye, ity of ophthalmic 17:45: 17:39 ONCE, 1 Hernán as solution 00 :00 dose, Wed Medica l 0.5 mL 09/15/20 at Branch syringe 1245, Routine, DSU Pre-op lactated 2020- No 1000mL at 42 Unive rs ringers IV 09-15 07- mL/hr, ity of infusion 17:45: 17:39 1,000 mL, Hernán as 1,000 mL 00 :00 IV Medical Infusion, Branch ONCE, 1 dose, 09/15/20 at 1245, Routine, DSU Pre-op aspirin 81 Yes 81mg Take 81 mg U nivers mg EC 7-21 by mouth. ity of tablet 15:06: [address] famotidine Yes 20mg Take 20 mg U nivers 20 mg 7-21 by mouth. ity of tablet 15:06: [address] aspirin 81 Yes 81mg Take 81 mg U nivers mg EC 7-21 by mouth. ity of tablet 15:06: [address] famotidine Yes 20mg Take 20 mg U nivers 20 mg 7-21 by mouth. ity of tablet 15:06: [address] Carbidopa No 1 tab, PO, Me moria 25 MG / 7-21 TID, # 270 l Levodopa 13:31: tab, 2 Philip 100 MG Oral 00 Refill(s), Tablet Pharmacy: [[facility] 25-100[facility] #[id number], 175.26, cm, 07/19/20 14:31:00 CDT, Height, 75.909, kg, 07/19/20 14:31:00 CDT, Weight apixaban 5 0 Yes TAKE 1 Memor ia MG Oral 7-12 TABLET BY l Tablet 20:03: MOUTH [place] [Eliquis] 00 TWICE A DAY LORazepam 0 Yes 0 Memoria 0.5 mg oral 7-12 Refill(s) l tablet 20:03: Philip 00 Carbidopa 0 Yes 1 tab, PO, Me moria 25 MG / 7-12 TID, # 90 l Levodopa 20:03: tab, 3 [place] 100 MG Oral 00 Refill(s), Tablet Pharmacy: [facility] #[id number], 175.26, cm, 07/19/20 14:31:00 CDT, Height, 75.909, kg, 07/19/20 14:31:00 CDT, Weight carbidopa-l 2020-0 Yes 1 tab, PO, [facility] 7-12 TID, # [facility]:00: tab, 3 Medica l 25-100 mg 00 Refill(s), Cent er per tablet Pharmacy: [facility] #[id number], 175.26, cm, 07/19/20 14:31:00 CDT, Height, 75.909, kg, 07/19/20 14:31:00 CDT, Weight carbidopa-l 2020-0 Yes 1 tab, PO, [facility] ev[facility] 7-12 TID, # [facility] ([facility] 00:00: tab, 3 Medica l 25-100 mg 00 Refill(s), Cent er per tablet Pharmacy: [facility] #[id number], 175.26, cm, 07/19/20 14:31:00 CDT, Height, 75.909, kg, 07/19/20 14:31:00 CDT, Weight carbidopa-l 2020-0 Yes 1 tab, PO, [facility] ev[facility]opa 7-12 TID, # 90 [facility] ([facility]) 00:00: tab, 3 Medica l 25-100 mg 00 Refill(s), Cent er per tablet Pharmacy: [facility] #[id number], 175.26, cm, 07/19/20 14:31:00 CDT, Height, 75.909, kg, 07/19/20 14:31:00 CDT, Weight prednisoLON 2020-0 Yes PLEASE SEE [facility] acetate 6-27 [facility] ([facility]: FOR Medical FORTE) 1 % 00 DETAILED Cente r ophthalmic DIRECTIONS suspension prednisoLON 2020-0 Yes PLEASE SEE [facility] acetate 6-27 [facility] ([facility]ED 00:00: FOR Medical FORTE) 1 % 00 DETAILED Cente r ophthalmic DIRECTIONS suspension prednisoLON 0 Yes PLEASE SEE [facility] acetate 6-27 [facility] (PRED 00:00: FOR Medical FORTE) 1 % 00 DETAILED Cente r ophthalmic DIRECTIONS suspension furosemide 2020-0 Yes 80mg Take 80 mg U nivers 80 mg 6-18 by mouth 2 ity of tablet 00:00: (two) [place] 00 times Medical daily. Branch furosemide 2020-0 Yes 80mg Take 80 mg U nivers 80 mg 6-18 by mouth 2 ity of tablet 00:00: (two) [place] 00 times Medical daily. Branch furosemide 2020-0 Yes 80mg Take 80 mg U nivers 80 mg 6-18 by mouth 2 ity of tablet 00:00: (two) [place] 00 times Medical daily. Branch furosemide 2020-0 Yes 80mg Take 80 mg U nivers 80 mg 6-18 by mouth 2 ity of tablet 00:00: (two) [place] 00 times Medical daily. Branch furosemide 2020-0 Yes 80mg Take 80 mg U nivers 80 mg 6-18 by mouth 2 ity of tablet 00:00: (two) [place] 00 times Medical daily. Branch furosemide 202-0 Yes 80mg Take 80 mg U nivers 80 mg 6-18 by mouth 2 ity of tablet 00:00: (two) [place] 00 times Medical daily. Branch Carbidopa 2020-0 Yes 1 tab, PO, Me moria 25 MG / 6-14 BID, # 60 l Levodopa 21:52: tab, 3 [place] 100 MG Oral 00 Refill(s), Tablet Pharmacy: [[facility]] cy #[id number], 175.26, cm, 07/19/20 14:31:00 CDT, Height, 75.909, kg, 07/19/20 14:31:00 CDT, Weight carbidopa-l 2021-0 Yes 1{tbl} Take 1 Un [...] tablet 00 (two) Medical times Branch daily. ELIQUIS 5 2020-0 Yes 5mg Take 5 mg Uni vers mg tablet 6-11 by mouth 2 ity of 00:00: (two) [place] 00 times Medical daily. Branch ELIQUIS 5 2020-0 Yes 5mg Take 5 mg Uni vers mg tablet 6-11 by mouth 2 ity of 00:00: (two) [place] 00 times Medical daily. Branch ELIQUIS 5 2020-0 Yes 5mg Take 5 mg Uni vers mg tablet 6-11 by mouth 2 ity of 00:00: (two) [place] 00 times Medical daily. Branch ELIQUIS 5 2020-0 Yes 5mg Take 5 mg Uni vers mg tablet 6-11 by mouth 2 ity of 00:00: (two) [place] 00 times Medical daily. Branch ELIQUIS 5 2020-0 Yes 5mg Take 5 mg Uni vers mg tablet 6-11 by mouth 2 ity of 00:00: (two) [place] 00 times Medical daily. Branch ELIQUIS 5 2020-0 Yes 5mg Take 5 mg Uni vers mg tablet 6-11 by mouth 2 ity of 00:00: (two) [place] times Medical daily. Branch Eliquis 5 2020-0 Yes 5mg Q.5D Take [address] [facility] MG tablet 6-11 by mouth 2 [facility] - 00:00: (two) Medical 00 times Center daily. Eliquis 5 2020-0 Yes 5mg Q.5D Take [address] [facility] MG tablet 6-11 by mouth 2 [facility] - 00:00: (two) Medical 00 times Center daily. Eliquis 5 2020-0 Yes 5mg Q.5D Take [address] [facility] MG tablet 6-11 by mouth 2 [facility] - 00:00: (two) Medical 00 times Center daily. Sotalol Yes 80 mg = 1 Memor ia 5-24 tab, PO, l 20:02: BID, # 60 00 tab, 0 Refill(s) Lasix Yes 80 mg, PO, Memori a 5-24 BID, 0 l 20:01: Refill(s) meloxicam Yes 15 mg, PO, Me moria 5-24 Daily, 0 l 20:00: Refill(s) 2018-02 No Notes: Memoria Mineral Oil 1-24 (Same l Enema 19:58: as: Mineral Oil Enema) naproxen 2018-02 Yes 500 mg = 1 Mem oria 500 mg oral 1-24 tab, PO, l tablet 15:04: BID, X 7 day, # 14 tab, 0 Refill(s), Pharmacy: [facility] #[id number] bisacodyl 2018-02 Yes 10 mg = 1 Mem oria 10 mg 1-24 supp, [place], l rectal 15:04: Daily, PRN Lilly nn suppository 00 Constipati on, # 10 supp, 0 Refill(s), Pharmacy: [facility] #[id number] Docusate 2018-02 Yes 100 mg = 1 Mem oria Sodium 100 1-24 cap, PO, l MG Oral 15:04: BID, # 60 Lilly nn Capsule 00 cap, 0 [Colace] Refill(s), Pharmacy: [facility] #[id number] bisacodyl 5 2018-02 Yes 10 mg = 2 M emoria mg oral 1-24 tab, PO, l enteric 15:04: Daily, PRN Herm ayush coated 00 Constipati tablet on, X 10 day, # 20 tab, 0 Refill(s), Pharmacy: [facility] #[id number] POLYETHYLEN 2018-02 Yes 17 gm, PO, Memoria E GLYCOL 1-24 Daily, PRN l 3350 142 15:04: Constipati Her pinon MG/ML Oral 00 on, # 255 Solution gm, 0 [Miralax] Refill(s), Pharmacy: [facility] #[id number] Lactulose 2018-02 No Notes: Memori a 667 MG/ML 1-24 (Same l Oral 01:11: as:Chronul [place] Solution 00 ac) Lactulose 2018-02 No Notes: Memori a 667 MG/ML -23 (Same l Oral 14:13: as:Chronul [place] Solution 00 ac) Dulcolax 2018-02 No Notes: Memoria Laxative -23 (Same As: l 12:41: Dulcolax, [place] 00 Bisco-Lax) Melatonin 3 2018-02 No Notes: [...] e 1-21 Tablet l 19:15: should not [place] 00 be chewed or crushed. (Same as: Protonix) Phenergan 2018-02 No Notes: Memori a 1-20 (Same as: l 00:41: Phenergan) Phenergan 2018-02 No 25 mg, Memori a -20 Route: IM, l 00:40: Q6H, Dosing Weight 74.2, kg, PRN Nausea & Vomiting, Start date: 01/14/19 18:40:00 DIRECTOR TRIAL, Duration: 30 day, Stop date: 02/13/19 18:39:00 DIRECTOR TRIAL Dulcolax 2018-02 No Notes: Memoria Laxative - (Same As: l 16:12: Dulcolax, [place] 00 Bisco-Lax) Levaquin 2018-02 No Notes: Do Pepe micki - not give l 12:00: w/antacids , dairy pdt & minerals Take 1 hr before or 2 hr after dairy products metoprolol 2018-02 No Notes: Memor ia extended 18 (Same as: l release 20:49: Toprol XL) May split tab, but do not crush. Albuterol 2018-02 No Notes: Memori a 0.833 MG/ML 18 (Same as: l / 20:49: Duoneb) Ipratropium 00 [place] 0.167 MG/ML Inhalant Solution Docusate 2018-02 No 100 mg = 1 Mem oria Sodium 100 1-18 cap, PO, l MG Oral 16:51: BID, 0 [place] Capsule 00 Refill(s) Famotidine 2018-02 Yes 20 mg = 1 Me moria 20 MG Oral 1-18 tab, PO, l Tablet 16:51: BID, 0 [place] 00 Refill(s) naproxen 2018-02 No 500 mg = 2 Mem oria 250 mg oral 1-18 tab, PO, l tablet 16:51: BID, 0 [place] 00 Refill(s) Dulcolax 2018-02 No Notes: Memoria Laxative -18 (Same As: l 15:00: Dulcolax, Correctol) (Do Not Crush) "Do Not Crush" [...] micki n 1-16 (Same l 07:00: as:Levaqui [place] n) Docusate 2018-02 No Notes: Memoria Sodium 100 1-15 (Same as: l MG Oral 23:00: Colace) Philip Capsule 00 (Do Not Crush) Acetaminoph 2018-02 No Notes: Do M emoria en 325 MG / 1-15 not exceed l Hydrocodone 19:50: 4gm/day of Philip Bitartrate 00 acetaminop 10 MG Oral hen. Tablet (Same as: [[place] 10/325] 325/10) clopidogrel 2018-02 No Notes: Pepe micki 1-15 (Same As: l 15:02: Plavix) [place] Flomax 2018-02 No Notes: Memoria 1-15 (Same As: l 15:02: Flomax) Philip "Do Not Crush" Morphine 2018-02 No 2 mg, 1 Memori a 1-15 mL, Route: l 11:04: IVP, Drug form: SOLN, Q4H, Dosing Weight 74.2, kg, PRN Pain Score 7-10, Start date: 01/10/19 5:04:00 DIRECTOR TRIAL, Duration: 30 day, Stop date: 02/09/19 5:03:00 DIRECTOR TRIAL, 0 Streptococc 2018-02 No Notes: Pepe micki us 1-15 Shake well l pneumoniae 09:35: prior to Her pinon serotype 1 51 use (Same capsular as: antigen Prevnar diphtheria 13) [id number] protein conjugate vaccine / Streptococc us pneumoniae serotype 14 capsular antigen diphtheria [id number] protein conjugate vaccine / Streptococc us pneumoniae [...] l / 09:00: Duoneb) Philip Ipratropium 00 [place] 0.167 MG/ML Inhalant Solution Ondansetron 2018-02 No Notes: Pepe micki -15 (Same as: l 08:36: Zofran) [place] 00 MEDICATION WASTE Product Size: 4 mg Product Wasted: ___ mg Albuterol 2018-02 No Notes: SEE Me moria 0.83 MG/ML -15 RT l Inhalant 08:36: DOCUMENTAT Her pinon Solution 00 ION (Same as: Proventil) NS 1,000 mL 2018-02 No 1,000 mL, M emoria -15 Rate: 60 l 08:33: ml/hr, [place] 00 Infuse over: 16.7 hr, Route: IV, Dosing Weight 74.2 kg, Total Volume: 1,000, Start date: 01/10/19 2:33:00 DIRECTOR TRIAL, Duration: 1 doses or times, Stop date: 01/10/19 19:14:00 DIRECTOR TRIAL, 1.91, m2, 0 Morphine 2018-02 No Notes: Memoria 1-15 (Same l 07:20: as:MORPhin [place] 00 e Sulfate) Zofran 2018-02 No Notes: Memoria 1-15 (Same as: l 07:20: Zofran) [place] 00 MEDICATION WASTE Product Size: 4 mg Product Wasted: ___ mg Levaquin 2018-02 No Notes: Memoria 1-15 (Same l 07:17: as:Levaqui [place] 00 n) Zofran 2018-02 No Notes: Memoria 1-15 (Same as: l 04:21: Zofran) MEDICATION WASTE Product Size: 4 mg Product Wasted: ___ mg Saline 2018-02 No Notes: Memoria Flush 0.9% 1-15 (Same as: l 04:20: BD [place] 00 Posiflush) Sodium 2018-02 No 1,000 mL, Memori a Chloride 1-15 2,000 l 0.9% 04:20: ml/hr, [place] (Bolus) IV 00 Infuse Over: 0.5 hr, Route: IV, 1,000, Drug form: INJ, ONCE, Priority: STAT, Dosing Weight 74.2 kg, Start date: 01/09/19 22:20:00 DIRECTOR TRIAL, Stop date: 01/09/19 22:20:00 DIRECTOR TRIAL, 0 fluoride, 2018-02 Yes 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 n 1.1 % 00 of scalp [place] dental teeth with cream cream and spit out as directed. (Do not eat, drink or rinse for 30 minutes). tamsulosin 2018-02 Yes .4mg Take 0.4 MD (FLOMAX) 0-09 mg by Anderso 0.4 mg 24 00:00: mouth n hr capsule 00 twice daily. 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 00:00: 00:00 carcinoma (200 mg) n capsule 00 :00 of scalp by mouth 2 (two) times [...] kg Systolic blood 2020-12-01 15:50:00 147 mm[Hg] Univer [facility]ity of [facility] [place] [facility] Diastolic blood 2020-12-01 15:50:00 71 mm[Hg] Unive rsity of pressure [place] [facility] Respiratory rate 2020-12-01 15:50:00 18 /min [facility] [place] [facility] Oxygen saturation in 2020-12-01 15:50:00 100 /min [facility] Arterial blood by [place] [facility] mendez Pulse oximetry Branch Body temperature 2020-12-01 15:45:00 36.22 Jessica [facility] [place] [facility] Heart rate 2020-12-01 13:51:00 68 /min [facility] [place] [facility] Body height 2020-11-18 14:58:00 175.3 cm [facility] [place] [facility] Body weight 2020-11-18 14:58:00 76.2 kg [facility] [place] [facility] BMI 2020-11-18 14:58:00 24.80 kg/m2 [facility] [place] [facility] Systolic blood 2020-12-01 15:50:00 147 mm[Hg] Univer sity of pressure [place] [facility] Diastolic blood 2020-12-01 15:50:00 71 mm[Hg] Unive rsity of pressure [place] [facility] Respiratory rate 2020-12-01 15:50:00 18 /min [facility] [place] [facility] Oxygen saturation in 2020-12-01 15:50:00 100 /min [facility] Arterial blood by [place] [facility] mendez Pulse oximetry Branch Body temperature 2020-12-01 15:45:00 36.22 Jessica [facility] [place] [facility] Heart rate 2020-12-01 13:51:00 68 /min [facility] [place] [facility] Body height 2020-11-18 14:58:00 175.3 cm [facility] [place] [facility] Body weight 2020-11-18 14:58:00 76.2 kg [facility] [place] [facility] BMI 2020-11-18 14:58:00 24.80 kg/m2 [facility] [place] [facility] HEIGHT 2020-09-28 12:51:00 175.3 cm WEIGHT 2020-09-28 12:51:00 74.844 kg WEIGHT 2020-09-28 06:00:00 74.9 kg WEIGHT 2020-09-27 06:00:00 72.5 kg HEIGHT 2020-09-26 03:52:00 175.3 cm WEIGHT 2020-09-26 03:52:00 75 kg Diastolic blood 2020-09-15 19:30:00 75 mm[Hg] Unive rsity of pressure [place] [facility] Heart rate 2020-09-15 19:30:00 59 /min [facility] [place] [facility] Oxygen saturation in 2020-09-15 19:30:00 98 /min [facility] Arterial blood by [facility] Pulse oximetry Branch Systolic blood 2020-09-15 19:30:00 146 mm[Hg] Univer sity of pressure [place] [facility] Respiratory rate 2020-09-15 19:21:00 24 /min [facility] [place] [facility] Body temperature 2020-09-15 19:15:00 36.17 Jessica [facility] [place] [facility] Body height 2020-09-06 18:10:00 175.3 cm [facility] [place] [facility] Body weight 2020-09-06 18:10:00 76.3 kg [facility] [place] [facility] BMI 2020-09-06 18:10:00 24.83 kg/m2 [facility] [place] [facility] Diastolic blood 2020-09-15 19:30:00 75 mm[Hg] Unive rsity of pressure [place] [facility] Heart rate 2020-09-15 19:30:00 59 /min [facility] [place] [facility] Oxygen saturation in 2020-09-15 19:30:00 98 /min [facility] Arterial blood by [facility] Pulse oximetry Branch Systolic blood 2020-09-15 19:30:00 146 mm[Hg] Univer sity of [facility] Respiratory rate 2020-09-15 19:21:00 24 /min [facility] [place] [facility] Body temperature 2020-09-15 19:15:00 36.17 Jessica [facility] [place] [facility] Body height 2020-09-06 18:10:00 175.3 cm [facility] [place] [facility] Body weight 2020-09-06 18:10:00 76.3 kg [facility] [place] [facility] BMI 2020-09-06 18:10:00 24.83 kg/m2 [facility] [place] [facility] Systolic blood 2020-09-15 19:30:00 146 mm[Hg] Univer sity of pressure [place] [facility] Diastolic blood 2020-09-15 19:30:00 75 mm[Hg] Unive rsity of pressure [place] [facility] Heart rate 2020-09-15 19:30:00 59 /min [facility] [place] [facility] Oxygen saturation in 2020-09-15 19:30:00 98 /min [facility] Arterial blood by [place] [facility] Pulse oximetry Branch Respiratory rate 2020-09-15 19:21:00 24 /min [facility] [place] [facility] Body temperature 2020-09-15 19:15:00 36.17 Jessica [facility] [place] [facility] Body height 2020-09-06 18:10:00 175.3 cm [facility] [place] [facility] Body weight 2020-09-06 18:10:00 76.3 kg [facility] [place] [facility] BMI 2020-09-06 18:10:00 24.83 kg/m2 [facility] [place] [facility] Systolic blood 2020-09-15 19:30:00 146 mm[Hg] Univer sity of pressure [place] [facility] Diastolic blood 2020-09-15 19:30:00 75 mm[Hg] Unive rsity of pressure [place] [facility] Heart rate 2020-09-15 19:30:00 59 /min [facility] [place] [facility] Oxygen saturation in 2020-09-15 19:30:00 98 /min [facility] Arterial blood by [place] [facility] Pulse oximetry Branch Respiratory rate 2020-09-15 19:21:00 24 /min [facility] [place] [facility] Body temperature 2020-09-15 19:15:00 36.17 Jessica [facility] [place] [facility] Body height 2020-09-06 18:10:00 175.3 cm [facility] [place] [facility] Body weight 2020-09-06 18:10:00 76.3 kg [facility] [place] [facility] BMI 2020-09-06 18:10:00 24.83 kg/m2 [facility] [place] [facility] Systolic blood 2021-03-24 21:29:38 101 mm[Hg] MD And erson pressure Diastolic blood 2021-03-24 21:29:38 68 mm[Hg] MD Gale derson pressure Heart rate 2021-03-24 21:29:38 79 /min Willis son Body temperature 2021-03-24 21:29:38 37.11 Jessica MD Fay [facility] Respiratory rate 2021-03-24 21:29:38 18 /min MD [facility]ay [facility] Oxygen saturation in 2021-03-24 21:29:38 96 /min MD [place] Arterial blood by Pulse oximetry Body weight 2021-03-24 10:48:00 65.2 kg Willis son BMI 2021-03-24 10:48:00 22.56 kg/m2 MD Pedro son Body height 2021-02-24 12:09:00 170 cm Willis son Systolic (mm Hg) 2020-12-07 14:30:[address] [place] Diastolic (mm Hg) 2020-12-07 14:30:00 [facility] orial Philip Heart Rate 2020-12-07 14:30:00 [facility] Philip Respitory Rate 2020-12-07 14:30:[address] [place] Systolic blood 2020-09-29 11:17:00 132 mm[Hg] [facility] Diastolic blood 2020-09-29 11:17:00 61 mm[Hg] [facility] S t [facility] Heart rate 2020-09-29 11:17:00 78 /min [facility] Body temperature 2020-09-29 11:17:00 36.44 Jessica [facility] Respiratory rate 2020-09-29 11:17:00 20 /min [facility] Oxygen saturation in 2020-09-29 11:17:00 97 /min [facility] Arterial blood by Medical Ce nter Pulse oximetry Body height 2020-09-28 12:51:00 175.3 cm [facility] Body weight 2020-09-28 12:51:00 74.844 kg [facility] BMI 2020-09-28 12:51:00 24.37 kg/m2 [facility] Systolic (mm Hg) 2020-09-06 19:00:[address] [place] Diastolic (mm Hg) 2020-09-06 19:00:00 Mem orial [place] Heart Rate 2020-09-06 19:00:[address] [place] Respitory Rate 2020-09-06 19:00:00 Memori al [place] Systolic (mm Hg) 2020-08-09 20:36:[address] [place] Diastolic (mm Hg) 2020-08-09 20:36:00 Mem orial [place] Heart Rate 2020-08-09 20:36:00 [facility] [place] Respitory Rate 2020-08-09 20:36:[address] [place] Systolic (mm Hg) 2020-07-19 19:31:00 Pepe rial [place] Diastolic (mm Hg) 2020-07-19 19:31:[address] [place] Heart Rate 2020-07-19 19:31:00 [facility] [place] Respitory Rate 2020-07-19 19:31:[address] [place] Height 2020-07-19 19:31:00 175.[address] [facility] [place] Weight 2020-07-19 19:31:[address] [facility] [place] BMI Calculated 2020-07-19 19:31:[address] [place] Temperature Oral (F) 2019-01-19 21:26:00 97.6 F [facility] [place] Heart Rate 2019-01-19 21:26:[address] [facility] [place] Respitory Rate 2019-01-19 21:26:[address] [place] Systolic (mm Hg) 2019-01-19 21:26:[address] [place] Diastolic (mm Hg) 2019-01-19 21:26:[address] [place] Temperature Oral (F) 2019-01-19 17:23:00 97.[address] [facility] [place] Heart Rate 2019-01-19 17:23:00 [facility] [place] Respitory Rate 2019-01-19 17:23:[address] [place] Systolic (mm Hg) 2019-01-19 17:23:[address] [place] Diastolic (mm Hg) 2019-01-19 17:23:[address] [place] Temperature Oral (F) 2019-01-19 13:47:00 97.6 F [facility] [place] Heart Rate 2019-01-19 13:47:00 [facility] [place] Respitory Rate 2019-01-19 13:47:[address] Ada velázquez [place] Systolic (mm Hg) 2019-01-19 13:47:[address] [place] Diastolic (mm Hg) 2019-01-19 13:47:[address] [place] Height 2019-01-10 12:17:00 170.18 cm [facility] [place] Weight 2019-01-10 03:42:00 [facility] Philip Procedures Procedure Date / Time Performing Source Performed Clinician COMPLETE BLOOD COUNT W/ 2021-03-24 Britany Diego MD rson DIFFERENTIAL 10:34:00 SODIUM LEVEL 2021-03-24 Britany Diego MD 10:34:00 POTASSIUM LEVEL 2021-03-24 Britany Diego MD 10:34:00 CHLORIDE LEVEL 2021-03-24 Britany Diego MD 10:34:00 CARBON DIOXIDE LEVEL 2021-03-24 Britany Diego MD n 10:34:00 BLOOD UREA NITROGEN 2021-03-24 Britany Diego MD 10:34:00 SERUM CREATININE 2021-03-24 Britany Diego MD 10:34:00 GLUCOSE, RANDOM 2021-03-24 Britany Diego MD 10:34:00 LACTATE DEHYDROGENASE 2021-03-24 Britany Diego MD on 10:34:00 URIC ACID 2021-03-24 Britany Diego MD 10:34:00 PHOSPHORUS LEVEL 2021-03-24 Britany Diego MD 10:34:00 FRACTIONATED BILIRUBIN 2021-03-24 Britany Diego MD Willis son 10:34:00 ALBUMIN LEVEL 2021-03-24 Britany Diego MD 10:34:00 CALCIUM LEVEL TOTAL 2021-03-24 Britany Diego MD 10:34:00 MAGNESIUM LEVEL 2021-03-24 Britany Diego MD 10:34:00 ALANINE AMINOTRANSFERASE 2021-03-24 Britany Diegoon 10:34:00 ASPARTATE AMINOTRANSFERASE 2021-03-24 Britany Diego MDon 10:34:00 ALKALINE PHOSPHATASE 2021-03-24 Britany Diego MD 10:34:00 Results CBC 2021-03-24 Britany Diego MD 10:34:00 MANUAL DIFFERENTIAL 2021-03-24 Britany Diego MD 10:34:00 SERUM CREATININE 2021-03-24 Britany Diego MD 10:34:00 .GLOMERULAR FILTRATION RATE 2021-03-24 Britany Diego MD 10:34:00 ANION GAP 2021-03-24 Britany Diego MD 10:34:00 COVID-19 (SARS-COV-2) 2021-03-23 Sondra Schmidt MD PCR-ASYMPTOMATIC [facility] 22:42:00 .GLOMERULAR FILTRATION RATE 2021-03-23 Britany Diego MD 11:21:00 ANION GAP 2021-03-23 Britany Diego MD 11:21:00 COMPLETE BLOOD COUNT W/ 2021-03-23 Britany Diego MD rson DIFFERENTIAL 11:21:00 SODIUM LEVEL 2021-03-23 Britany Diego MD 11:21:00 POTASSIUM LEVEL 2021-03-23 Britany Diego MD 11:21:00 CHLORIDE LEVEL 2021-03-23 Britany Diego MD 11:21:00 CARBON DIOXIDE LEVEL 2021-03-23 Britany Diego MD 11:21:00 BLOOD UREA NITROGEN 2021-03-23 Britany Diego MD 11:21:00 SERUM CREATININE 2021-03-23 Britany Diego MD 11:21:00 GLUCOSE, RANDOM 2021-03-23 Britany Diego MD 11:21:00 LACTATE DEHYDROGENASE 2021-03-23 Britany Diego MD on 11:21:00 URIC ACID 2021-03-23 Britany Diego MD 11:21:00 PHOSPHORUS LEVEL 2021-03-23 Britany Diego MD 11:21:00 FRACTIONATED BILIRUBIN 2021-03-23 Britany Diego MD son 11:21:00 ALBUMIN LEVEL 2021-03-23 Britany Diego MD 11:21:00 CALCIUM LEVEL TOTAL 2021-03-23 Britany Diego MD 11:21:00 MAGNESIUM LEVEL 2021-03-23 Britany Diego MD 11:21:00 ALANINE AMINOTRANSFERASE 2021-03-23 Britany Diego MD And erson 11:21:00 ASPARTATE AMINOTRANSFERASE 2021-03-23 Britany Diego MD nderson 11:21:00 ALKALINE PHOSPHATASE 2021-03-23 Britany Diego MD 11:21:00 Results CBC 2021-03-23 Britany Diego MD 11:21:00 MANUAL DIFFERENTIAL 2021-03-23 Britany Diego MD 11:21:00 SERUM CREATININE 2021-03-23 Britany Diego MD 11:21:00 COMPLETE BLOOD COUNT W/ 2021-03-22 Britany Diegoe rson DIFFERENTIAL 10:30:00 SODIUM LEVEL 2021-03-22 Britany Diego MD 10:30:00 POTASSIUM LEVEL 2021-03-22 Britany Diego MD 10:30:00 CHLORIDE LEVEL 2021-03-22 Britany Diego MD 10:30:00 CARBON DIOXIDE LEVEL 2021-03-22 Britany Diego MD 10:30:00 BLOOD UREA NITROGEN 2021-03-22 Britany Diego MD 10:30:00 SERUM CREATININE 2021-03-22 Britany Diego MD 10:30:00 GLUCOSE, RANDOM 2021-03-22 Britany Diego MD 10:30:00 LACTATE DEHYDROGENASE 2021-03-22 Britany Diego MD on 10:30:00 URIC ACID 2021-03-22 Britany Diego MD 10:30:00 PHOSPHORUS LEVEL 2021-03-22 Britany Diego MD 10:30:00 FRACTIONATED BILIRUBIN 2021-03-22 Britany Diego MD son 10:30:00 ALBUMIN LEVEL 2021-03-22 Britany Diego MD 10:30:00 CALCIUM LEVEL TOTAL 2021-03-22 Britany Diego MD 10:30:00 MAGNESIUM LEVEL 2021-03-22 Britany Diego MD 10:30:00 ALANINE AMINOTRANSFERASE 2021-03-22 Britany Diego ersdion 10:30:00 ASPARTATE AMINOTRANSFERASE 2021-03-22 Britany Diego MD 10:30:00 ALKALINE PHOSPHATASE 2021-03-22 Britany Diego MD 10:30:00 TYPE AND SCREEN 2021-03-22 Yobany Tapia MD 10:30:00 ABORH 2021-03-22 MD Rishi Springer 10:30:00 Sanjay ANTIBODY SCREEN 2021-03-22 MD Rishi Springer 10:30:00 Sanjay Results CBC 2021-03-22 Britany Diego MD 10:30:00 MANUAL DIFFERENTIAL 2021-03-22 Britany Diego MD 10:30:00 SERUM CREATININE 2021-03-22 Britany Diego MD 10:30:00 .GLOMERULAR FILTRATION RATE 2021-03-22 Britany Diego MD 10:30:00 ANION GAP 2021-03-22 Britany Diego MD 10:30:00 CLOT EXPIRATION DATE 2021-03-22 Kaitlin Casiano MD Darron on 10:30:00 Sanjay TMP INTERPRETATION ANTIBODY 2021-03-22 MD Rishi Springer SCREEN NEGATIVE 10:30:00 Sanjay COMPLETE BLOOD COUNT W/ 2021-03-21 Britany Diego MD rson DIFFERENTIAL 10:17:00 SODIUM LEVEL 2021-03-21 Britany Diego MD 10:17:00 POTASSIUM LEVEL 2021-03-21 Britany Diego MD 10:17:00 CHLORIDE LEVEL 2021-03-21 Britany Diego MD 10:17:00 CARBON DIOXIDE LEVEL 2021-03-21 Britany Diego MD 10:17:00 BLOOD UREA NITROGEN 2021-03-21 Britany Diego MD 10:17:00 SERUM CREATININE 2021-03-21 Britany Diego MD 10:17:00 GLUCOSE, RANDOM 2021-03-21 Britany Diego MD 10:17:00 LACTATE DEHYDROGENASE 2021-03-21 Britany Diego MD 10:17:00 URIC ACID 2021-03-21 Britany Diego MD 10:17:00 PHOSPHORUS LEVEL 2021-03-21 Britany Diego MD 10:17:00 FRACTIONATED BILIRUBIN 2021-03-21 Britany Diego MD Willis son 10:17:00 ALBUMIN LEVEL 2021-03-21 Britany Diego MD 10:17:00 CALCIUM LEVEL TOTAL 2021-03-21 Britany Diego MD 10:17:00 MAGNESIUM LEVEL 2021-03-21 Britany Diego MD 10:17:00 ALANINE AMINOTRANSFERASE 2021-03-21 Britany Diego MD And deandreon 10:17:00 ASPARTATE AMINOTRANSFERASE 2021-03-21 Britany Diego MD nderson 10:17:00 ALKALINE PHOSPHATASE 2021-03-21 Britany Diego MD 10:17:00 Results CBC 2021-03-21 Britany Diego MD 10:17:00 MANUAL DIFFERENTIAL 2021-03-21 Britany Diego MD 10:17:00 SERUM CREATININE 2021-03-21 Britany Diego MD 10:17:00 .GLOMERULAR FILTRATION RATE 2021-03-21 Britany Diego MD 10:17:00 ANION GAP 2021-03-21 Britany Diego MD 10:17:00 COMPLETE BLOOD COUNT W/ 2021-03-20 Britany Diego MD rson DIFFERENTIAL 10:58:00 SODIUM LEVEL 2021-03-20 Britany Diego MD 10:58:00 POTASSIUM LEVEL 2021-03-20 Britany Diego MD 10:58:00 CHLORIDE LEVEL 2021-03-20 Britany Diego MD 10:58:00 CARBON DIOXIDE LEVEL 2021-03-20 Britany Diego MD n 10:58:00 BLOOD UREA NITROGEN 2021-03-20 Britany Diego MD 10:58:00 SERUM CREATININE 2021-03-20 Britany Diego MD 10:58:00 GLUCOSE, RANDOM 2021-03-20 Britany Diego MD 10:58:00 LACTATE DEHYDROGENASE 2021-03-20 Britany Diego MD Darron on 10:58:00 URIC ACID 2021-03-20 Britany Diego MD 10:58:00 PHOSPHORUS LEVEL 2021-03-20 Britany Diego MD 10:58:00 FRACTIONATED BILIRUBIN 2021-03-20 Britany Diego MD Willis son 10:58:00 ALBUMIN LEVEL 2021-03-20 Britany Digeo MD 10:58:00 CALCIUM LEVEL TOTAL 2021-03-20 Britany Diego MD 10:58:00 MAGNESIUM LEVEL 2021-03-20 Britany Diego MD 10:58:00 ALANINE AMINOTRANSFERASE 2021-03-20 Britany Diego MD And erson 10:58:00 ASPARTATE AMINOTRANSFERASE 2021-03-20 Britany Diego MD nderson 10:58:00 ALKALINE PHOSPHATASE 2021-03-20 Britayn Diego MD 10:58:00 Results CBC 2021-03-20 Britany Diego MD 10:58:00 MANUAL DIFFERENTIAL 2021-03-20 Britany Diego MD 10:58:00 SERUM CREATININE 2021-03-20 Britany Diego MD 10:58:00 .GLOMERULAR FILTRATION RATE 2021-03-20 Britany Diego MD 10:58:00 ANION GAP 2021-03-20 Britany Diego MD 10:58:00 COMPLETE BLOOD COUNT W/ 2021-03-19 Britany Diego MD Arya rson DIFFERENTIAL 11:09:00 SODIUM LEVEL 2021-03-19 Britany Diego MD 11:09:00 POTASSIUM LEVEL 2021-03-19 Britany Diego MD 11:09:00 CHLORIDE LEVEL 2021-03-19 Britany Diego MD 11:09:00 CARBON DIOXIDE LEVEL 2021-03-19 Britany Diego MD n 11:09:00 BLOOD UREA NITROGEN 2021-03-19 Britany Diego MD 11:09:00 SERUM CREATININE 2021-03-19 Britany Diego MD 11:09:00 GLUCOSE, RANDOM 2021-03-19 Britany Diego MD 11:09:00 LACTATE DEHYDROGENASE 2021-03-19 Britany Diego MD on 11:09:00 URIC ACID 2021-03-19 Britany Diego MD 11:09:00 PHOSPHORUS LEVEL 2021-03-19 Britany Diego MD 11:09:00 FRACTIONATED BILIRUBIN 2021-03-19 Britany Diego MD Willis son 11:09:00 ALBUMIN LEVEL 2021-03-19 Britany Diego MD 11:09:00 CALCIUM LEVEL TOTAL 2021-03-19 Britany Diego MD 11:09:00 MAGNESIUM LEVEL 2021-03-19 Britany Diego MD 11:09:00 ALANINE AMINOTRANSFERASE 2021-03-19 Britany iDego MD And erson 11:09:00 ASPARTATE AMINOTRANSFERASE 2021-03-19 Britany Diego MD nderson 11:09:00 ALKALINE PHOSPHATASE 2021-03-19 Britany Diego MD Anddeandreo n 11:09:00 TYPE AND SCREEN 2021-03-19 Yobany Tapia MD 11:09:00 ABORH 2021-03-19 MD Rishi Springer 11:09:00 Sanjay ANTIBODY SCREEN 2021-03-19 MD Rishi Springer 11:09:00 Sanjay Results CBC 2021-03-19 Britany Diego MD 11:09:00 MANUAL DIFFERENTIAL 2021-03-19 Britany Diego MD 11:09:00 SERUM CREATININE 2021-03-19 Britany Diego MD 11:09:00 .GLOMERULAR FILTRATION RATE 2021-03-19 Britany Diego MD 11:09:00 ANION GAP 2021-03-19 Britany Diego MD 11:09:00 CLOT EXPIRATION DATE 2021-03-19 MD Darron Springer on 11:09:00 Sanjay TMP INTERPRETATION ANTIBODY 2021-03-19 MD Rishi Springer SCREEN NEGATIVE 11:09:00 Sanjay COMPLETE BLOOD COUNT W/ 2021-03-18 Britany Diego MD Arya rson DIFFERENTIAL 10:01:00 SODIUM LEVEL 2021-03-18 Britany Diego MD 10:01:00 POTASSIUM LEVEL 2021-03-18 Demarcus, Britany Blackwell 10:01:00 CHLORIDE LEVEL 2021-03-18 Demarcus, Britany Blackwell 10:01:00 CARBON DIOXIDE LEVEL 2021-03-18 Demarcus Britany romero 10:01:00 BLOOD UREA NITROGEN 2021-03-18 Demarcus Britany Blackwell 10:01:00 SERUM CREATININE 2021-03-18 Demarcus Britany Blackwell 10:01:00 GLUCOSE, RANDOM 2021-03-18 Demarcus Britany Blackwell 10:01:00 LACTATE DEHYDROGENASE 2021-03-18 Britany Diego MD on 10:01:00 URIC ACID 2021-03-18 Britany Diego MD 10:01:00 PHOSPHORUS LEVEL 2021-03-18 Demarcus Britany Blackwell 10:01:00 FRACTIONATED BILIRUBIN 2021-03-18 Britany Diego MD Willis son 10:01:00 ALBUMIN LEVEL 2021-03-18 Demarcus Britany Blackwell 10:01:00 CALCIUM LEVEL TOTAL 2021-03-18 Demarcus Britany Blackwell 10:01:00 MAGNESIUM LEVEL 2021-03-18 Demarcus, Britany Blackwell 10:01:00 ALANINE AMINOTRANSFERASE 2021-03-18 Britany Diego erson 10:01:00 ASPARTATE AMINOTRANSFERASE 2021-03-18 Britany Diego MD nderson 10:01:00 ALKALINE PHOSPHATASE 2021-03-18 Britany Diego MD 10:01:00 Results CBC 2021-03-18 Britany Diego MD 10:01:00 MANUAL DIFFERENTIAL 2021-03-18 Britany Diego MD 10:01:00 SERUM CREATININE 2021-03-18 Britany Diego MD 10:01:00 .GLOMERULAR FILTRATION RATE 2021-03-18 Britany Diego MD 10:01:00 ANION GAP 2021-03-18 Britany Diego MD 10:01:00 COMPLETE BLOOD COUNT W/ 2021-03-17 Britany Diegoe rson DIFFERENTIAL 12:00:00 SODIUM LEVEL 2021-03-17 Britany Diego MD 12:00:00 POTASSIUM LEVEL 2021-03-17 Britany Diego MD 12:00:00 CHLORIDE LEVEL 2021-03-17 Britany Diego MD 12:00:00 CARBON DIOXIDE LEVEL 2021-03-17 Britany Diego MD 12:00:00 BLOOD UREA NITROGEN 2021-03-17 Britany Diego MD 12:00:00 SERUM CREATININE 2021-03-17 Britany Diego MD 12:00:00 GLUCOSE, RANDOM 2021-03-17 Britany Diego MD 12:00:00 LACTATE DEHYDROGENASE 2021-03-17 Britany Diego MD on 12:00:00 URIC ACID 2021-03-17 Britany Diego MD 12:00:00 PHOSPHORUS LEVEL 2021-03-17 Britany Diego MD 12:00:00 FRACTIONATED BILIRUBIN 2021-03-17 Britany Diego MD son 12:00:00 ALBUMIN LEVEL 2021-03-17 Britany Diego MD 12:00:00 CALCIUM LEVEL TOTAL 2021-03-17 Britany Diego MD 12:00:00 MAGNESIUM LEVEL 2021-03-17 Britany Diego MD 12:00:00 ALANINE AMINOTRANSFERASE 2021-03-17 Britany Diego 12:00:00 ASPARTATE AMINOTRANSFERASE 2021-03-17 Britany Diego MDrsdion 12:00:00 ALKALINE PHOSPHATASE 2021-03-17 Britany Diego MD 12:00:00 Results CBC 2021-03-17 Britany Diego MD 12:00:00 MANUAL DIFFERENTIAL 2021-03-17 Britany Diego MD 12:00:00 SERUM CREATININE 2021-03-17 Britany Diego MD 12:00:00 .GLOMERULAR FILTRATION RATE 2021-03-17 Britany Diego MD 12:00:00 ANION GAP 2021-03-17 Britany Diego MD 12:00:00 COVID-19 (SARS-COV-2) 2021-03-16 Brooks Delatorre MD Arya rson PCR-ASYMPTOMATIC MC 14:39:00 COMPLETE BLOOD COUNT W/ 2021-03-16 Britany Diego MD rsdion DIFFERENTIAL 11:05:00 SODIUM LEVEL 2021-03-16 Britany Diego MD 11:05:00 POTASSIUM LEVEL 2021-03-16 Britany Diego MD 11:05:00 CHLORIDE LEVEL 2021-03-16 Britany Diego MD 11:05:00 CARBON DIOXIDE LEVEL 2021-03-16 Britany Diego MD 11:05:00 BLOOD UREA NITROGEN 2021-03-16 Britany Diego MD 11:05:00 SERUM CREATININE 2021-03-16 Britany Diego MD 11:05:00 GLUCOSE, RANDOM 2021-03-16 Britany Diego MD 11:05:00 LACTATE DEHYDROGENASE 2021-03-16 Britany Diego MD on 11:05:00 URIC ACID 2021-03-16 Britany Diego MD 11:05:00 PHOSPHORUS LEVEL 2021-03-16 Britany Diego MD 11:05:00 FRACTIONATED BILIRUBIN 2021-03-16 Britany Diego MD Willis son 11:05:00 ALBUMIN LEVEL 2021-03-16 Britany Diego MD 11:05:00 CALCIUM LEVEL TOTAL 2021-03-16 Britany Diego MD 11:05:00 MAGNESIUM LEVEL 2021-03-16 Britany Diego MD 11:05:00 ALANINE AMINOTRANSFERASE 2021-03-16 Britany Diego MD And erson 11:05:00 ASPARTATE AMINOTRANSFERASE 2021-03-16 Britany Diego MD nderson 11:05:00 ALKALINE PHOSPHATASE 2021-03-16 Britany Diego MD 11:05:00 TYPE AND SCREEN 2021-03-16 Yobany Tapia MD 11:05:00 ABORH 2021-03-16 MD Rishi Springer 11:05:00 Sanjay ANTIBODY SCREEN 2021-03-16 MD Rishi Springer 11:05:00 Sanjay Results CBC 2021-03-16 Britany Diego MD 11:05:00 MANUAL DIFFERENTIAL 2021-03-16 Britany Diego MD 11:05:00 SERUM CREATININE 2021-03-16 Britany Diego MD 11:05:00 .GLOMERULAR FILTRATION RATE 2021-03-16 Britany Diego MD 11:05:00 ANION GAP 2021-03-16 Britany Diego MD 11:05:00 TMP INTERPRETATION ANTIBODY 2021-03-16 MD Rishi Springer SCREEN NEGATIVE 11:05:00 Sanjay CLOT EXPIRATION DATE 2021-03-16 MD Darron Springer on 11:05:00 Sanjay COMPLETE BLOOD COUNT W/ 2021-03-15 Britany Diego MD rson DIFFERENTIAL 10:21:00 SODIUM LEVEL 2021-03-15 Britany Diego MD 10:21:00 POTASSIUM LEVEL 2021-03-15 Britany Diego MD 10:21:00 CHLORIDE LEVEL 2021-03-15 Britany Diego MD 10:21:00 CARBON DIOXIDE LEVEL 2021-03-15 Britany Diego MDo n 10:21:00 BLOOD UREA NITROGEN 2021-03-15 Britany Diego MD 10:21:00 SERUM CREATININE 2021-03-15 Britany Diego MD 10:21:00 GLUCOSE, RANDOM 2021-03-15 Britany Diego MD 10:21:00 LACTATE DEHYDROGENASE 2021-03-15 Britany Diego MD on 10:21:00 URIC ACID 2021-03-15 Britany Diego MD 10:21:00 PHOSPHORUS LEVEL 2021-03-15 Britany Diego MD 10:21:00 FRACTIONATED BILIRUBIN 2021-03-15 Britany Diego MD son 10:21:00 ALBUMIN LEVEL 2021-03-15 Britany Diego MD 10:21:00 CALCIUM LEVEL TOTAL 2021-03-15 Britany Diego MD 10:21:00 MAGNESIUM LEVEL 2021-03-15 Britany Diego MD 10:21:00 ALANINE AMINOTRANSFERASE 2021-03-15 Britany Diego 10:21:00 ASPARTATE AMINOTRANSFERASE 2021-03-15 Britany Diego MDrson 10:21:00 ALKALINE PHOSPHATASE 2021-03-15 Britany Diego MD 10:21:00 Results CBC 2021-03-15 Britany Diego MD 10:21:00 MANUAL DIFFERENTIAL 2021-03-15 Britany Diego MD 10:21:00 SERUM CREATININE 2021-03-15 Britany Diego MD 10:21:00 .GLOMERULAR FILTRATION RATE 2021-03-15 Britany Diego MD 10:21:00 ANION GAP 2021-03-15 Britany Diego MD 10:21:00 COMPLETE BLOOD COUNT W/ 2021-03-14 Britany Diego MD rson DIFFERENTIAL 11:22:00 SODIUM LEVEL 2021-03-14 Britany Diego MD 11:22:00 POTASSIUM LEVEL 2021-03-14 Britany Diego MD 11:22:00 CHLORIDE LEVEL 2021-03-14 Britany Diego MD 11:22:00 CARBON DIOXIDE LEVEL 2021-03-14 Britany Diego MD 11:22:00 BLOOD UREA NITROGEN 2021-03-14 Britany Diego MD 11:22:00 SERUM CREATININE 2021-03-14 Britany Diego MD 11:22:00 GLUCOSE, RANDOM 2021-03-14 Britany Diego MD 11:22:00 LACTATE DEHYDROGENASE 2021-03-14 Britany Diego MD on 11:22:00 URIC ACID 2021-03-14 Britany Diego MD 11:22:00 PHOSPHORUS LEVEL 2021-03-14 Britany Diego MD 11:22:00 FRACTIONATED BILIRUBIN 2021-03-14 Britany Diego MD son 11:22:00 ALBUMIN LEVEL 2021-03-14 Britany Diego MD 11:22:00 CALCIUM LEVEL TOTAL 2021-03-14 Britany Diego MD 11:22:00 MAGNESIUM LEVEL 2021-03-14 Britany Diego MD 11:22:00 ALANINE AMINOTRANSFERASE 2021-03-14 Britany Dieog MD And erson 11:22:00 ASPARTATE AMINOTRANSFERASE 2021-03-14 Britany Diego MD 11:22:00 ALKALINE PHOSPHATASE 2021-03-14 Britany Diego MD 11:22:00 Results CBC 2021-03-14 Britany Diego MD 11:22:00 MANUAL DIFFERENTIAL 2021-03-14 Britany Diego MD 11:22:00 SERUM CREATININE 2021-03-14 Britany Diego MD 11:22:00 .GLOMERULAR FILTRATION RATE 2021-03-14 Britany Diego MD 11:22:00 ANION GAP 2021-03-14 Britany Diego MD 11:22:00 COMPLETE BLOOD COUNT W/ 2021-03-13 Britany Diego MD rson DIFFERENTIAL 10:53:00 SODIUM LEVEL 2021-03-13 Britany Diego MD 10:53:00 POTASSIUM LEVEL 2021-03-13 Britany Diego MD 10:53:00 CHLORIDE LEVEL 2021-03-13 Britany Diego MD 10:53:00 CARBON DIOXIDE LEVEL 2021-03-13 Britany Diego MD 10:53:00 BLOOD UREA NITROGEN 2021-03-13 Britany Diego MD 10:53:00 SERUM CREATININE 2021-03-13 Britany Diego MD 10:53:00 GLUCOSE, RANDOM 2021-03-13 Britany Diego MD 10:53:00 LACTATE DEHYDROGENASE 2021-03-13 Britany Diego MD on 10:53:00 URIC ACID 2021-03-13 Britany Diego MD 10:53:00 PHOSPHORUS LEVEL 2021-03-13 Britany Diego MD 10:53:00 FRACTIONATED BILIRUBIN 2021-03-13 Britany Diego MD son 10:53:00 ALBUMIN LEVEL 2021-03-13 Britany Diego MD 10:53:00 CALCIUM LEVEL TOTAL 2021-03-13 Britany Diego MD 10:53:00 MAGNESIUM LEVEL 2021-03-13 Britany Diego MD 10:53:00 ALANINE AMINOTRANSFERASE 2021-03-13 Britany Diego 10:53:00 ASPARTATE AMINOTRANSFERASE 2021-03-13 Britany Diego MDon 10:53:00 ALKALINE PHOSPHATASE 2021-03-13 Britany Diego MD 10:53:00 TYPE AND SCREEN 2021-03-13 Yobany Tapia MD 10:53:00 ABORH 2021-03-13 MD Rishi Springer 10:53:00 Sanjay ANTIBODY SCREEN 2021-03-13 MD Rishi Springer 10:53:00 Sanjay Results CBC 2021-03-13 Britany Diego MD 10:53:00 MANUAL DIFFERENTIAL 2021-03-13 Britany Diego MD 10:53:00 SERUM CREATININE 2021-03-13 Britany Diego MD 10:53:00 .GLOMERULAR FILTRATION RATE 2021-03-13 Britany Diego MD 10:53:00 ANION GAP 2021-03-13 Britany Diego MD 10:53:00 CLOT EXPIRATION DATE 2021-03-13 MD Darron Springer on 10:53:00 Sanjay TMP INTERPRETATION ANTIBODY 2021-03-13 MD Rishi Springer SCREEN NEGATIVE 10:53:00 Sanjay URINE CULTURE 2021-03-12 Patrick Israel MD 14:28:00 URINALYSIS MICROSCOPIC 2021-03-12 Patrick Israel MD on 14:28:00 URINALYSIS WITH MICROSCOPIC 2021-03-12 Patrick sIrael MD IF INDICATED 14:28:00 COMPLETE BLOOD COUNT W/ 2021-03-12 Britany Diego MD rson DIFFERENTIAL 08:16:00 SODIUM LEVEL 2021-03-12 Britany Diego MD 08:16:00 POTASSIUM LEVEL 2021-03-12 Britany Diego MD 08:16:00 CHLORIDE LEVEL 2021-03-12 Britany Diego MD 08:16:00 CARBON DIOXIDE LEVEL 2021-03-12 Britany Diego MD 08:16:00 BLOOD UREA NITROGEN 2021-03-12 Demarcus Britany La Blackwell 08:16:00 SERUM CREATININE 2021-03-12 Demarcus Britany Blackwell 08:16:00 GLUCOSE, RANDOM 2021-03-12 DemarcusBritany La Blackwell 08:16:00 LACTATE DEHYDROGENASE 2021-03-12 Demarcus Britany Rob on 08:16:00 URIC ACID 2021-03-12 Demarcus Britany Blackwell 08:16:00 PHOSPHORUS LEVEL 2021-03-12 Demarcus Britany La Blackwell 08:16:00 FRACTIONATED BILIRUBIN 2021-03-12 Demarcus Britany Pedro son 08:16:00 ALBUMIN LEVEL 2021-03-12 Demarcus Britany La Blackwell 08:16:00 CALCIUM LEVEL TOTAL 2021-03-12 Demarcus Britany Blackwell 08:16:00 MAGNESIUM LEVEL 2021-03-12 Demarcus Britany La Blackwell 08:16:00 ALANINE AMINOTRANSFERASE 2021-03-12 Britany Diego MD And erson 08:16:00 ASPARTATE AMINOTRANSFERASE 2021-03-12 Demarcus Britany La [place] nderson 08:16:00 ALKALINE PHOSPHATASE 2021-03-12 Demarcus Britany La [place] n 08:16:00 Results CBC 2021-03-12 Demarcus Britany La Blackwell 08:16:00 MANUAL DIFFERENTIAL 2021-03-12 Demarcus Britany Blackwell 08:16:00 SERUM CREATININE 2021-03-12 Demarcus Britany Blackwell 08:16:00 .GLOMERULAR FILTRATION RATE 2021-03-12 Demarcus Britany Blackwell 08:16:00 ANION GAP 2021-03-12 Demarcus Britany La Blackwell 08:16:00 CT HEAD WO CONTRAST 2021-03-12 Kya Isabel MD 05:18:29 POC CRITICAL 2021-03-12 Carlyle Soto MD 04:28:00 POC ARTERIAL BLOOD GAS 2021-03-12 Carlyle Soto MD Darron on 04:28:00 POC GLUCOSE SCREEN 2021-03-12 Carlyle Soto MD 03:55:00 COMPLETE BLOOD COUNT W/ 2021-03-11 Britany Diego MD Arya rson DIFFERENTIAL 07:34:00 SODIUM LEVEL 2021-03-11 Britany Diego MD 07:34:00 POTASSIUM LEVEL 2021-03-11 Demarcus Britany Blackwell 07:34:00 CHLORIDE LEVEL 2021-03-11 Demarcus Britany Blackwell 07:34:00 CARBON DIOXIDE LEVEL 2021-03-11 Demarcus Britany Medina n 07:34:00 BLOOD UREA NITROGEN 2021-03-11 Demarcus Britany Blackwell 07:34:00 SERUM CREATININE 2021-03-11 Britany Diego MD 07:34:00 GLUCOSE, RANDOM 2021-03-11 Britany Diego MD 07:34:00 LACTATE DEHYDROGENASE 2021-03-11 Britany Diego MD on 07:34:00 URIC ACID 2021-03-11 Britany Diego MD 07:34:00 PHOSPHORUS LEVEL 2021-03-11 Britany Diego MD 07:34:00 FRACTIONATED BILIRUBIN 2021-03-11 Britany Diego MD Willis son 07:34:00 ALBUMIN LEVEL 2021-03-11 Britany Diego MD 07:34:00 CALCIUM LEVEL TOTAL 2021-03-11 Britany Diego MD 07:34:00 MAGNESIUM LEVEL 2021-03-11 Britany Diego MD 07:34:00 ALANINE AMINOTRANSFERASE 2021-03-11 Britany Diego MD And erson 07:34:00 ASPARTATE AMINOTRANSFERASE 2021-03-11 Britany Diego MD nderson 07:34:00 ALKALINE PHOSPHATASE 2021-03-11 Britany Diego MD n 07:34:00 Results CBC 2021-03-11 Britany Diego MD 07:34:00 MANUAL DIFFERENTIAL 2021-03-11 Britany Diego MD 07:34:00 SERUM CREATININE 2021-03-11 Britany Diego MD 07:34:00 .GLOMERULAR FILTRATION RATE 2021-03-11 Britany Diego MD 07:34:00 ANION GAP 2021-03-11 Britany Diego MD 07:34:00 COMPLETE BLOOD COUNT W/ 2021-03-10 Britany Diego MD Arya rson DIFFERENTIAL 08:43:00 SODIUM LEVEL 2021-03-10 Britany Diego MD 08:43:00 POTASSIUM LEVEL 2021-03-10 Britany Diego MD 08:43:00 CHLORIDE LEVEL 2021-03-10 Demarcus Britany La Blackwell 08:43:00 CARBON DIOXIDE LEVEL 2021-03-10 Britany Diego MD 08:43:00 BLOOD UREA NITROGEN 2021-03-10 Demarcus Britany La Blackwell 08:43:00 SERUM CREATININE 2021-03-10 Demarcus Britany La Blackwell 08:43:00 GLUCOSE, RANDOM 2021-03-10 Britany Diego MD 08:43:00 LACTATE DEHYDROGENASE 2021-03-10 Britany Diego MD on 08:43:00 URIC ACID 2021-03-10 Britany Diego MD 08:43:00 PHOSPHORUS LEVEL 2021-03-10 Demarcus Britany La Blackwell 08:43:00 FRACTIONATED BILIRUBIN 2021-03-10 Demarcus Britany La LOCKETT Willis son 08:43:00 ALBUMIN LEVEL 2021-03-10 Britany Diego MD 08:43:00 CALCIUM LEVEL TOTAL 2021-03-10 Britany Diego MD 08:43:00 MAGNESIUM LEVEL 2021-03-10 Britany Diego MD 08:43:00 ALANINE AMINOTRANSFERASE 2021-03-10 Britany Diego 08:43:00 ASPARTATE AMINOTRANSFERASE 2021-03-10 Britany Diego MD nderson 08:43:00 ALKALINE PHOSPHATASE 2021-03-10 Britany Diego MD 08:43:00 TYPE AND SCREEN 2021-03-10 Yobany Tapia MD 08:43:00 ABORH 2021-03-10 MD Rishi Springer 08:43:00 Sanjay ANTIBODY SCREEN 2021-03-10 MD Rishi Springer 08:43:00 Sanjay Results CBC 2021-03-10 Britany Diego MD 08:43:00 MANUAL DIFFERENTIAL 2021-03-10 Britany Diego MD 08:43:00 SERUM CREATININE 2021-03-10 Britany Diego MD 08:43:00 .GLOMERULAR FILTRATION RATE 2021-03-10 Britany Diego MD 08:43:00 ANION GAP 2021-03-10 Britany Diego MD 08:43:00 CLOT EXPIRATION DATE 2021-03-10 MD Darron Springer on 08:43:00 Sanjay TMP INTERPRETATION ANTIBODY 2021-03-10 MD Rishi Springer SCREEN NEGATIVE 08:43:00 Carlyle Means COVID-19 (SARS-COV-2) 2021-03-09 Carlyle Soto MD PCR-ASYMPTOMATIC MC 15:40:00 COMPLETE BLOOD COUNT W/ 2021-03-09 Britany Diego MD rson DIFFERENTIAL 09:42:00 SODIUM LEVEL 2021-03-09 Britany Diego MD 09:42:00 POTASSIUM LEVEL 2021-03-09 Britany Diego MD 09:42:00 CHLORIDE LEVEL 2021-03-09 Britany Diego MD 09:42:00 CARBON DIOXIDE LEVEL 2021-03-09 Britany Diego MD n 09:42:00 BLOOD UREA NITROGEN 2021-03-09 Britany Diego MD 09:42:00 SERUM CREATININE 2021-03-09 Britany Diego MD 09:42:00 GLUCOSE, RANDOM 2021-03-09 Britany Diego MD 09:42:00 LACTATE DEHYDROGENASE 2021-03-09 Britany Diego MD on 09:42:00 URIC ACID 2021-03-09 Britany Diego MD 09:42:00 PHOSPHORUS LEVEL 2021-03-09 Britany Diego MD 09:42:00 FRACTIONATED BILIRUBIN 2021-03-09 Britany Diego MD son 09:42:00 ALBUMIN LEVEL 2021-03-09 Britany Diego MD 09:42:00 CALCIUM LEVEL TOTAL 2021-03-09 Britany Diego MD 09:42:00 MAGNESIUM LEVEL 2021-03-09 Britany Diego MD 09:42:00 ALANINE AMINOTRANSFERASE 2021-03-09 Britany Diego MD And erson 09:42:00 ASPARTATE AMINOTRANSFERASE 2021-03-09 Britany Diego MD nderson 09:42:00 ALKALINE PHOSPHATASE 2021-03-09 Britany Diego MD Andbrittney n 09:42:00 Results CBC 2021-03-09 Britany Diego MD 09:42:00 MANUAL DIFFERENTIAL 2021-03-09 Britany Diego MD 09:42:00 SERUM CREATININE 2021-03-09 Britany Diego MD 09:42:00 .GLOMERULAR FILTRATION RATE 2021-03-09 Britany Diego MD 09:42:00 ANION GAP 2021-03-09 Britany Diego MD 09:42:00 COMPLETE BLOOD COUNT W/ 2021-03-08 Britany Diego MD rson DIFFERENTIAL 10:25:00 SODIUM LEVEL 2021-03-08 Britany Diego MD 10:25:00 POTASSIUM LEVEL 2021-03-08 Britany Diego MD 10:25:00 CHLORIDE LEVEL 2021-03-08 Britany iDego MD 10:25:00 CARBON DIOXIDE LEVEL 2021-03-08 Britany Diego MD n 10:25:00 BLOOD UREA NITROGEN 2021-03-08 Britany Diego MD 10:25:00 SERUM CREATININE 2021-03-08 Britany Diego MD 10:25:00 GLUCOSE, RANDOM 2021-03-08 Britany Diego MD 10:25:00 LACTATE DEHYDROGENASE 2021-03-08 Britany Diego MD on 10:25:00 URIC ACID 2021-03-08 Britany Diego MD 10:25:00 PHOSPHORUS LEVEL 2021-03-08 Britany Diego MD 10:25:00 FRACTIONATED BILIRUBIN 2021-03-08 Britany Diego MD Willis son 10:25:00 ALBUMIN LEVEL 2021-03-08 Britany Diego MD 10:25:00 CALCIUM LEVEL TOTAL 2021-03-08 Britany Diego MD 10:25:00 MAGNESIUM LEVEL 2021-03-08 Britany Diego MD 10:25:00 ALANINE AMINOTRANSFERASE 2021-03-08 Britany Diego 10:25:00 ASPARTATE AMINOTRANSFERASE 2021-03-08 Britany Diego MDrson 10:25:00 ALKALINE PHOSPHATASE 2021-03-08 Britany Diego MD 10:25:00 Results CBC 2021-03-08 Britany Diego MD 10:25:00 MANUAL DIFFERENTIAL 2021-03-08 Britany Diego MD 10:25:00 SERUM CREATININE 2021-03-08 Britany Diego MD 10:25:00 .GLOMERULAR FILTRATION RATE 2021-03-08 Britany Diego MD 10:25:00 ANION GAP 2021-03-08 Britany Diego MD 10:25:00 COMPLETE BLOOD COUNT W/ 2021-03-07 Britany Diegoe rson DIFFERENTIAL 10:02:00 SODIUM LEVEL 2021-03-07 Britany Diego MD 10:02:00 POTASSIUM LEVEL 2021-03-07 Britany Diego MD 10:02:00 CHLORIDE LEVEL 2021-03-07 Britany Diego MD 10:02:00 CARBON DIOXIDE LEVEL 2021-03-07 Britany Diego MD 10:02:00 BLOOD UREA NITROGEN 2021-03-07 Britany Diego MD 10:02:00 SERUM CREATININE 2021-03-07 Britany Diego MD 10:02:00 GLUCOSE, RANDOM 2021-03-07 Britany Diego MD 10:02:00 LACTATE DEHYDROGENASE 2021-03-07 Britany Diego MD on 10:02:00 URIC ACID 2021-03-07 Britany Diego MD 10:02:00 PHOSPHORUS LEVEL 2021-03-07 Britany Diego MD 10:02:00 FRACTIONATED BILIRUBIN 2021-03-07 Britany Diego MD Willis son 10:02:00 ALBUMIN LEVEL 2021-03-07 Britany Diego MD 10:02:00 CALCIUM LEVEL TOTAL 2021-03-07 Britany Diego MD 10:02:00 MAGNESIUM LEVEL 2021-03-07 Britany Diego MD 10:02:00 ALANINE AMINOTRANSFERASE 2021-03-07 Britany Diego ersdion 10:02:00 ASPARTATE AMINOTRANSFERASE 2021-03-07 Britany Diego MD nderson 10:02:00 ALKALINE PHOSPHATASE 2021-03-07 Britany Diego MD 10:02:00 TYPE AND SCREEN 2021-03-07 Yobany Tapia MD 10:02:00 ABORH 2021-03-07 MD Rishi Springer 10:02:00 Sanjay ANTIBODY SCREEN 2021-03-07 MD Rishi Springer 10:02:00 Sanjay Results CBC 2021-03-07 Britany Diego MD 10:02:00 MANUAL DIFFERENTIAL 2021-03-07 Britany Diego MD 10:02:00 SERUM CREATININE 2021-03-07 Britany Diego MD 10:02:00 .GLOMERULAR FILTRATION RATE 2021-03-07 Britany Diego MD 10:02:00 ANION GAP 2021-03-07 Britany Diego MD 10:02:00 TMP INTERPRETATION ANTIBODY 2021-03-07 MD Rishi Springer SCREEN NEGATIVE 10:02:00 Sanjay CLOT EXPIRATION DATE 2021-03-07 Kaitlin Casiano MD Darron on 10:02:00 Sanjay COMPLETE BLOOD COUNT W/ 2021-03-06 Britany Diegoe rson DIFFERENTIAL 10:13:00 SODIUM LEVEL 2021-03-06 Britany Diego MD 10:13:00 POTASSIUM LEVEL 2021-03-06 Britany Diego MD 10:13:00 CHLORIDE LEVEL 2021-03-06 Britany Diego MD 10:13:00 CARBON DIOXIDE LEVEL 2021-03-06 Britany Diego MD 10:13:00 BLOOD UREA NITROGEN 2021-03-06 Britany Diego MD 10:13:00 SERUM CREATININE 2021-03-06 Britany Diego MD 10:13:00 GLUCOSE, RANDOM 2021-03-06 Britany Diego MD 10:13:00 LACTATE DEHYDROGENASE 2021-03-06 Britany Diego MD on 10:13:00 URIC ACID 2021-03-06 Britany Diego MD 10:13:00 PHOSPHORUS LEVEL 2021-03-06 Britany Diego MD 10:13:00 FRACTIONATED BILIRUBIN 2021-03-06 Britany Diego MD Willis son 10:13:00 ALBUMIN LEVEL 2021-03-06 Britany Diego MD 10:13:00 CALCIUM LEVEL TOTAL 2021-03-06 Britany Diego MD 10:13:00 MAGNESIUM LEVEL 2021-03-06 Britany Diego MD 10:13:00 ALANINE AMINOTRANSFERASE 2021-03-06 Britany Diego MD And erson 10:13:00 ASPARTATE AMINOTRANSFERASE 2021-03-06 Britany Diego MD nderson 10:13:00 ALKALINE PHOSPHATASE 2021-03-06 Britany Diego MD n 10:13:00 Results CBC 2021-03-06 Britany Diego MD 10:13:00 MANUAL DIFFERENTIAL 2021-03-06 Britany Diego MD 10:13:00 SERUM CREATININE 2021-03-06 Britany Diego MD 10:13:00 .GLOMERULAR FILTRATION RATE 2021-03-06 Britany Diego MD 10:13:00 ANION GAP 2021-03-06 Britany Diego MD 10:13:00 COMPLETE BLOOD COUNT W/ 2021-03-05 Britany Diegoe rson DIFFERENTIAL 12:30:00 SODIUM LEVEL 2021-03-05 Britany Diego MD 12:30:00 POTASSIUM LEVEL 2021-03-05 Britany Diego MD 12:30:00 CHLORIDE LEVEL 2021-03-05 Britany Diego MD 12:30:00 CARBON DIOXIDE LEVEL 2021-03-05 Britany Diego MD n 12:30:00 BLOOD UREA NITROGEN 2021-03-05 Britany Diego MD 12:30:00 SERUM CREATININE 2021-03-05 Britany Diego MD 12:30:00 GLUCOSE, RANDOM 2021-03-05 Britany Diego MD 12:30:00 LACTATE DEHYDROGENASE 2021-03-05 Britany Diego MD on 12:30:00 URIC ACID 2021-03-05 Britany Dieog MD 12:30:00 PHOSPHORUS LEVEL 2021-03-05 Britany Diego MD 12:30:00 FRACTIONATED BILIRUBIN 2021-03-05 Britany Diego MD Willis son 12:30:00 ALBUMIN LEVEL 2021-03-05 Britany Diego MD 12:30:00 CALCIUM LEVEL TOTAL 2021-03-05 Britany Diego MD 12:30:00 MAGNESIUM LEVEL 2021-03-05 Britany Diego MD 12:30:00 ALANINE AMINOTRANSFERASE 2021-03-05 Britany Diego MD And deandreon 12:30:00 ASPARTATE AMINOTRANSFERASE 2021-03-05 Britany Diego MD nderson 12:30:00 ALKALINE PHOSPHATASE 2021-03-05 Britany Diego MD n 12:30:00 Results CBC 2021-03-05 Britany Diego MD 12:30:00 MANUAL DIFFERENTIAL 2021-03-05 Britany Diego MD 12:30:00 SERUM CREATININE 2021-03-05 Britany Diego MD 12:30:00 .GLOMERULAR FILTRATION RATE 2021-03-05 Britany Diego MD 12:30:00 ANION GAP 2021-03-05 Britany Diego MD 12:30:00 COMPLETE BLOOD COUNT W/ 2021-03-04 Britany Diego MD Arya rson DIFFERENTIAL 10:35:00 SODIUM LEVEL 2021-03-04 Britany Diego MD 10:35:00 POTASSIUM LEVEL 2021-03-04 Britany Diego MD 10:35:00 CHLORIDE LEVEL 2021-03-04 Britany Diego MD 10:35:00 CARBON DIOXIDE LEVEL 2021-03-04 Britany Diego MD n 10:35:00 BLOOD UREA NITROGEN 2021-03-04Britany Fontanez MD 10:35:00 SERUM CREATININE 2021-03-04 Britany Diego MD 10:35:00 GLUCOSE, RANDOM 2021-03-04 Britany Diego MD 10:35:00 LACTATE DEHYDROGENASE 2021-03-04 Britany Diego MD on 10:35:00 URIC ACID 2021-03-04 Britany Diego MD 10:35:00 PHOSPHORUS LEVEL 2021-03-04 Britany Diego MD 10:35:00 FRACTIONATED BILIRUBIN 2021-03-04 Britany Diego MD Willis son 10:35:00 ALBUMIN LEVEL 2021-03-04 Britany Diego MD 10:35:00 CALCIUM LEVEL TOTAL 2021-03-04 Britany Diego MD 10:35:00 MAGNESIUM LEVEL 2021-03-04 Britany Diego MD 10:35:00 ALANINE AMINOTRANSFERASE 2021-03-04 Britany Diego MD And erson 10:35:00 ASPARTATE AMINOTRANSFERASE 2021-03-04 Britany Diego MD nderson 10:35:00 ALKALINE PHOSPHATASE 2021-03-04 Britany Diego MD Anddeandreo n 10:35:00 TYPE AND SCREEN 2021-03-04 Yobany Tapia MD 10:35:00 ABORH 2021-03-04 MD Rishi Springer 10:35:00 Sanjay ANTIBODY SCREEN 2021-03-04 MD Rishi Springer 10:35:00 Sanjay Results CBC 2021-03-04 Britany Diego MD 10:35:00 MANUAL DIFFERENTIAL 2021-03-04 Britany Diego MD 10:35:00 SERUM CREATININE 2021-03-04 Britany Diego MD 10:35:00 .GLOMERULAR FILTRATION RATE 2021-03-04 Britany Diego MD 10:35:00 ANION GAP 2021-03-04 Britany Diego MD 10:35:00 CLOT EXPIRATION DATE 2021-03-04 MD Darron Springer on 10:35:00 Sanjay TMP INTERPRETATION ANTIBODY 2021-03-04 MD Rishi Springer SCREEN NEGATIVE 10:35:00 Sanjay HP FC FLOW CYTOMETRY BLOOD 2021-03-03 MD Rishi Springer COLLECTION 23:14:00 Sanjay HP FC LYMPHOMA B KAPPA/LAMBDA 2021-03-03 MD Rishi Springer INTERPRETATION AND REPORT 23:14:00 Sanjay POTASSIUM LEVEL 2021-03-03 Britany Diego MD 23:11:00 IL DIAGNOSTIC LUMBAR SPINAL 2021-03-03 Britany Diego MD PUNCTURE 20:11:16 MENINGITIS-ENCEPHALITIS 2021-03-03 Britany Diego MD rson MULTIPLEX PANEL 19:41:00 PARANEOPLASTIC AUTO-ANTIBODY 2021-03-03 Britany Diego MD EVAL, CSF 19:41:00 PROTEIN CEREBROSPINAL FLUID 2021-03-03 Britany Diego MD 19:41:00 GLUCOSE CEREBROSPINAL FLUID 2021-03-03 Britany Diego MD 19:41:00 CELL COUNT W/ DIFF 2021-03-03 Britany Diego MD CEREBROSPINAL FLUID 19:41:00 FUNGUS CULTURE W/ SMEAR 2021-03-03 Britany Diego MD rsdion 19:41:00 CSF CULTURE 2021-03-03 Britany Diego MD 19:41:00 CRYPTOCOCCAL ANTIGEN 2021-03-03 Britany Diego MD 19:41:00 MENINGITIS-ENCEPHALITIS PANEL 2021-03-03 Britany Diego 19:41:00 MENINGITIS-ENCEPHALITIS 2021-03-03 Britany Diego MD Arya rson MULTIPLEX PANEL PATH REVIEW 19:41:00 CRYPTOCOCCAL ANTIGEN PATH 2021-03-03 Britany Diego MDson REVIEW 19:41:00 AFB CULTURE W/ SMEAR 2021-03-03 Britany Diego MD 19:41:00 CYTOLOGY NON-OVEN DAUBER 2021-03-03 Britany Diego MD INTERPRETATION 19:28:00 Results CBC 2021-03-03 Britany Diego MD 14:59:00 MANUAL DIFFERENTIAL 2021-03-03 Britany Diego MD 14:59:00 COMPLETE BLOOD COUNT W/ 2021-03-03 Britany Diego MD Arya rson DIFFERENTIAL 11:26:00 SODIUM LEVEL 2021-03-03 Britany Diego MD 11:26:00 POTASSIUM LEVEL 2021-03-03 Britany Diego MD 11:26:00 CHLORIDE LEVEL 2021-03-03 Britany Diego MD 11:26:00 CARBON DIOXIDE LEVEL 2021-03-03 Britany Diego MD n 11:26:00 BLOOD UREA NITROGEN 2021-03-03 Britany Diego MD 11:26:00 SERUM CREATININE 2021-03-03 Britany Diego MD 11:26:00 GLUCOSE, RANDOM 2021-03-03 Britany Diego MD 11:26:00 LACTATE DEHYDROGENASE 2021-03-03 Britany Diego MD on 11:26:00 URIC ACID 2021-03-03 Britany Diego MD 11:26:00 PHOSPHORUS LEVEL 2021-03-03 Britany Diego MD 11:26:00 FRACTIONATED BILIRUBIN 2021-03-03 Britany Diego MD Willis son 11:26:00 ALBUMIN LEVEL 2021-03-03 Britany Diego MD 11:26:00 CALCIUM LEVEL TOTAL 2021-03-03 Britany Diego MD 11:26:00 MAGNESIUM LEVEL 2021-03-03 Britany Diego MD 11:26:00 ALANINE AMINOTRANSFERASE 2021-03-03 Britany Diego ersdion 11:26:00 ASPARTATE AMINOTRANSFERASE 2021-03-03 Britany Diego MD 11:26:00 ALKALINE PHOSPHATASE 2021-03-03 Britany Diego MD n 11:26:00 Results CBC 2021-03-03 Britany Diego MD 11:26:00 SERUM CREATININE 2021-03-03 Britany Diego MD 11:26:00 .GLOMERULAR FILTRATION RATE 2021-03-03 Britany Diego MD 11:26:00 ANION GAP 2021-03-03 Britany Diego MD 11:26:00 COVID-19 (SARS-COV-2) 2021-03-02 Kaitlin Casiano MD Willis son PCR-ASYMPTOMATIC MC 23:34:00 Sanjay HP CYTOGENETICS BLOOD 2021-03-02 Carlyle Soto MD COLLECTION 17:06:00 HP CG MYC TISSUE FISH 2021-03-02 Carlyle Soto MD INTERPRETATION AND REPORT 17:06:[address] GUIDED BIOPSY 2021-03-02 Britany Diego MD RETROPERITONEAL 15:30:00 CYTOLOGY IMAGE-GUIDED FNA 2021-03-02 Britany Diego MD INTERPRETATION 14:54:00 HP FC FLOW CYTOMETRY BLOOD 2021-03-02 MD Rishi Springer COLLECTION 14:54:00 Sanjay HP FC LYMPHOMA B KAPPA/LAMBDA 2021-03-02 MD Rishi Springer INTERPRETATION AND REPORT 14:54:00 Sanjay PATHOLOGY BIOPSY 2021-03-02 Britany Diego MD INTERPRETATION 14:53:00 COMPLETE BLOOD COUNT W/ 2021-03-02 Britany Diegoe rson DIFFERENTIAL 10:19:00 SODIUM LEVEL 2021-03-02 Britany Diego MD 10:19:00 POTASSIUM LEVEL 2021-03-02 Britany Diego MD 10:19:00 CHLORIDE LEVEL 2021-03-02 Britany Diego MD 10:19:00 CARBON DIOXIDE LEVEL 2021-03-02 Britany Diego MD 10:19:00 BLOOD UREA NITROGEN 2021-03-02 Britany Diego MD 10:19:00 SERUM CREATININE 2021-03-02 Britany Diego MD 10:19:00 GLUCOSE, RANDOM 2021-03-02 Britany Diego MD 10:19:00 LACTATE DEHYDROGENASE 2021-03-02 Britany Diego MD on 10:19:00 URIC ACID 2021-03-02 Britany Diego MD 10:19:00 PHOSPHORUS LEVEL 2021-03-02 Britany Diego MD 10:19:00 FRACTIONATED BILIRUBIN 2021-03-02 Britany Diego MD Willis son 10:19:00 ALBUMIN LEVEL 2021-03-02 Britany Diego MD 10:19:00 CALCIUM LEVEL TOTAL 2021-03-02 Britany Diego MD 10:19:00 MAGNESIUM LEVEL 2021-03-02 Britany Diego MD 10:19:00 ALANINE AMINOTRANSFERASE 2021-03-02 Britany Diego MD And erson 10:19:00 ASPARTATE AMINOTRANSFERASE 2021-03-02 Britany Diego MD nderson 10:19:00 ALKALINE PHOSPHATASE 2021-03-02 Britany Diego MD Andbrittney n 10:19:00 PROTHROMBIN TIME 2021-03-02 Halina Rashid MD 10:19:00 APTT 2021-03-02 Halina Rashid MD 10:19:00 Results CBC 2021-03-02 Britany Diego MD 10:19:00 MANUAL DIFFERENTIAL 2021-03-02 Britany Diego MD 10:19:00 SERUM CREATININE 2021-03-02 Britany Diego MD 10:19:00 .GLOMERULAR FILTRATION RATE 2021-03-02 Britany Diego MD 10:19:00 ANION GAP 2021-03-02 Britany Diego MD 10:19:00 TYPE AND SCREEN 2021-03-01 Britany Diego MD 18:35:00 PROTHROMBIN TIME 2021-03-01 Lara Adames MD 18:35:00 ABORH 2021-03-01 Britany Diego MD 18:35:00 ANTIBODY SCREEN 2021-03-01 Britany Diego MD 18:35:00 TMP INTERPRETATION ANTIBODY 2021-03-01 Britany Diego MD SCREEN NEGATIVE 18:35:00 CLOT EXPIRATION DATE 2021-03-01 Britany Diego MD n 18:35:00 TROPONIN T 2021-03-01 Britany Diego MD 10:11:00 COMPLETE BLOOD COUNT W/ 2021-03-01 Britany Diegoe rson DIFFERENTIAL 10:11:00 SODIUM LEVEL 2021-03-01 Britany Diego MD 10:11:00 POTASSIUM LEVEL 2021-03-01 Britany Diego MD 10:11:00 CHLORIDE LEVEL 2021-03-01 Britany Diego MD 10:11:00 CARBON DIOXIDE LEVEL 2021-03-01 Britany Diego MD n 10:11:00 BLOOD UREA NITROGEN 2021-03-01 Britany Diego MD 10:11:00 SERUM CREATININE 2021-03-01 Britany Diego MD 10:11:00 GLUCOSE, RANDOM 2021-03-01 Britany Diego MD 10:11:00 LACTATE DEHYDROGENASE 2021-03-01 Britany Diego MD on 10:11:00 URIC ACID 2021-03-01 Britany Diego MD 10:11:00 PHOSPHORUS LEVEL 2021-03-01 Britany Diego MD 10:11:00 FRACTIONATED BILIRUBIN 2021-03-01 Britany Diego MD son 10:11:00 ALBUMIN LEVEL 2021-03-01 Britany Diego MD 10:11:00 CALCIUM LEVEL TOTAL 2021-03-01 Britany Diego MD 10:11:00 MAGNESIUM LEVEL 2021-03-01 Britany Diego MD 10:11:00 ALANINE AMINOTRANSFERASE 2021-03-01 Britany Diego MD And erson 10:11:00 ASPARTATE AMINOTRANSFERASE 2021-03-01 Britany Diego MD nderson 10:11:00 ALKALINE PHOSPHATASE 2021-03-01 Britany Diego MD 10:11:00 Results CBC 2021-03-01 Britany Diego MD 10:11:00 MANUAL DIFFERENTIAL 2021-03-01 Britany Diego MD 10:11:00 SERUM CREATININE 2021-03-01 Britany Diego MD 10:11:00 .GLOMERULAR FILTRATION RATE 2021-03-01 Britany Diego MD 10:11:00 ANION GAP 2021-03-01 Britany Diego MD 10:11:00 BLOODCULTURE 2021-03-01 Britany Diego MD 00:56:00 LACTIC ACID, VENOUS 2021-03-01 Britany Diego MD 00:56:00 AMMONIA LEVEL 2021-03-01 Britany Diego MD 00:56:00 URINE CULTURE 2021-02-28 Britany Diego MD 19:23:00 URINALYSIS WITH MICROSCOPIC 2021-02-28 Britany Diego MD IF INDICATED 19:23:00 COMPLETE BLOOD COUNT W/ 2021-02-28 Britany Diego MD Arya rson DIFFERENTIAL 10:49:00 SODIUM LEVEL 2021-02-28 Britany Diego MD 10:49:00 POTASSIUM LEVEL 2021-02-28 Demarcus, Britany Blackwell 10:49:00 CHLORIDE LEVEL 2021-02-28 Britany Diego MD 10:49:00 CARBON DIOXIDE LEVEL 2021-02-28 Britany Diego MD n 10:49:00 BLOOD UREA NITROGEN 2021-02-28 Britany Diego MD 10:49:00 SERUM CREATININE 2021-02-28 Britany Diego MD 10:49:00 GLUCOSE, RANDOM 2021-02-28 Britany Diego MD 10:49:00 LACTATE DEHYDROGENASE 2021-02-28 Britany Diego MD on 10:49:00 URIC ACID 2021-02-28 Britany Diego MD 10:49:00 PHOSPHORUS LEVEL 2021-02-28 Britany Diego MD 10:49:00 FRACTIONATED BILIRUBIN 2021-02-28 Britany Diego MD Willis son 10:49:00 ALBUMIN LEVEL 2021-02-28 Britany Diego MD 10:49:00 CALCIUM LEVEL TOTAL 2021-02-28 Britany Diego MD 10:49:00 MAGNESIUM LEVEL 2021-02-28 Britany Diego MD 10:49:00 ALANINE AMINOTRANSFERASE 2021-02-28 Britany Diego MD And ersdion 10:49:00 ASPARTATE AMINOTRANSFERASE 2021-02-28 Britany Diego MD nderson 10:49:00 ALKALINE PHOSPHATASE 2021-02-28 Britany Diego MD Andbrittney n 10:49:00 Results CBC 2021-02-28 Britany Diego MD 10:49:00 MANUAL DIFFERENTIAL 2021-02-28 Britany Diego MD 10:49:00 SERUM CREATININE 2021-02-28 Britany Diego MD 10:49:00 .GLOMERULAR FILTRATION RATE 2021-02-28 Britany Diego MD 10:49:00 ANION GAP 2021-02-28 Britany Diego MD 10:49:00 PROTHROMBIN TIME 2021-02-28 MD Rishi Ryan 04:55:00 [place] MRI BRAIN W WO CONTRAST 2021-02-27 Willem English MD Willis son 19:12:34 COMPLETE BLOOD COUNT W/ 2021-02-27 Britany Diego MD rson DIFFERENTIAL 12:22:00 SODIUM LEVEL 2021-02-27 Britany Diego MD 12:22:00 POTASSIUM LEVEL 2021-02-27 Britany Diego MD 12:22:00 CHLORIDE LEVEL 2021-02-27 Britany Diego MD 12:22:00 CARBON DIOXIDE LEVEL 2021-02-27 Britany Diego MD 12:22:00 BLOOD UREA NITROGEN 2021-02-27 Britany Diego MD 12:22:00 SERUM CREATININE 2021-02-27 Britany Diego MD 12:22:00 GLUCOSE, RANDOM 2021-02-27 Britany Diego MD 12:22:00 LACTATE DEHYDROGENASE 2021-02-27 Britany Diego MD on 12:22:00 URIC ACID 2021-02-27 Britany Diego MD 12:22:00 PHOSPHORUS LEVEL 2021-02-27 Britany Diego MD 12:22:00 FRACTIONATED BILIRUBIN 2021-02-27 Britany Diego MD Willis son 12:22:00 ALBUMIN LEVEL 2021-02-27 Britany Diego MD 12:22:00 CALCIUM LEVEL TOTAL 2021-02-27 Britany Diego MD 12:22:00 MAGNESIUM LEVEL 2021-02-27 Britany Diego MD 12:22:00 ALANINE AMINOTRANSFERASE 2021-02-27 Britany Diego 12:22:00 ASPARTATE AMINOTRANSFERASE 2021-02-27 Britany Diego MD 12:22:00 ALKALINE PHOSPHATASE 2021-02-27 Britany Diego MD 12:22:00 Results CBC 2021-02-27 Britany Diego MD 12:22:00 MANUAL DIFFERENTIAL 2021-02-27 Britany Diego MD 12:22:00 SERUM CREATININE 2021-02-27 Britany Diego MD 12:22:00 .GLOMERULAR FILTRATION RATE 2021-02-27 Britany Diego MD 12:22:00 ANION GAP 2021-02-27 Britany Diego MD 12:22:00 TYPE AND SCREEN 2021-02-27 Britany Diego MD 00:02:00 CARDIAC PANEL 2021-02-27 Willem English MD 00:02:00 ABORH 2021-02-27 Britany Diego MD 00:02:00 ANTIBODY SCREEN 2021-02-27 Britany Diego MD 00:02:00 CLOT EXPIRATION DATE 2021-02-27 Britany Diego MD 00:02:00 TMP INTERPRETATION ANTIBODY 2021-02-27 Britany Diego MD SCREEN NEGATIVE 00:02:00 CARDIAC PANEL 2021-02-26 Willem English MD 18:01:00 CARDIAC PANEL 2021-02-26 Arielle Ramirez MD 12:36:00 TROPONIN T 2021-02-26 Willem English MD 08:01:00 COMPLETE BLOOD COUNT W/ 2021-02-26 Britany Diego MD rson DIFFERENTIAL 08:01:00 SODIUM LEVEL 2021-02-26 Britany Diego MD 08:01:00 POTASSIUM LEVEL 2021-02-26 Britany Diego MD 08:01:00 CHLORIDE LEVEL 2021-02-26 Britany Diego MD 08:01:00 CARBON DIOXIDE LEVEL 2021-02-26 Britany Diego MD 08:01:00 BLOOD UREA NITROGEN 2021-02-26 Britany Diego MD 08:01:00 SERUM CREATININE 2021-02-26 Britany Diego MD 08:01:00 GLUCOSE, RANDOM 2021-02-26 Britany Diego MD 08:01:00 LACTATE DEHYDROGENASE 2021-02-26 Britany Diego MD on 08:01:00 URIC ACID 2021-02-26 Britany Diego MD 08:01:00 PHOSPHORUS LEVEL 2021-02-26 Britany Diego MD 08:01:00 FRACTIONATED BILIRUBIN 2021-02-26 Britany Diego MD Willisjax campos 08:01:00 ALBUMIN LEVEL 2021-02-26 Britany Diego MD 08:01:00 CALCIUM LEVEL TOTAL 2021-02-26 Britany Diego MD 08:01:00 MAGNESIUM LEVEL 2021-02-26 Britany Diego MD 08:01:00 ALANINE AMINOTRANSFERASE 2021-02-26 Britany Diego MD And erson 08:01:00 ASPARTATE AMINOTRANSFERASE 2021-02-26 Britany Diego MD nderson 08:01:00 ALKALINE PHOSPHATASE 2021-02-26 Britany Diego MD Andbrittney n 08:01:00 Results CBC 2021-02-26 Britany Diego MD 08:01:00 MANUAL DIFFERENTIAL 2021-02-26 Britany Diego MD 08:01:00 SERUM CREATININE 2021-02-26 Britany Diego MD 08:01:00 .GLOMERULAR FILTRATION RATE 2021-02-26 Britany Diego MD 08:01:00 ANION GAP 2021-02-26 Britany Diego MD 08:01:00 TROPONIN T 2021-02-26 Willem English MD 00:01:00 EKG, 12-LEAD (PORTABLE) 2021-02-26 Arielle [facility] MD [facility] 00:00:00 TROPONIN T 2021-02-25 Willem English MD 18:21:00 COMPLETE BLOOD COUNT W/ 2021-02-25 Britany Diego MD Arya rson DIFFERENTIAL 10:07:00 SODIUM LEVEL 2021-02-25 Britany Diego MD 10:07:00 POTASSIUM LEVEL 2021-02-25 Britany Diego MD 10:07:00 CHLORIDE LEVEL 2021-02-25 Britany Digeo MD 10:07:00 CARBON DIOXIDE LEVEL 2021-02-25 Britany Diego MD 10:07:00 BLOOD UREA NITROGEN 2021-02-25 Britany Diego MD 10:07:00 SERUM CREATININE 2021-02-25 Britany Diego MD 10:07:00 GLUCOSE, RANDOM 2021-02-25 Britany Diego MD 10:07:00 LACTATE DEHYDROGENASE 2021-02-25 Britany Diego MD on 10:07:00 URIC ACID 2021-02-25 Britany Diego MD 10:07:00 PHOSPHORUS LEVEL 2021-02-25 Britany Diego MD 10:07:00 FRACTIONATED BILIRUBIN 2021-02-25 Britany Diego MD Willis son 10:07:00 ALBUMIN LEVEL 2021-02-25 Britany Diego MD 10:07:00 CALCIUM LEVEL TOTAL 2021-02-25 Britany Diego MD 10:07:00 MAGNESIUM LEVEL 2021-02-25 Britany Diego MD 10:07:00 ALANINE AMINOTRANSFERASE 2021-02-25 Britany Diego MD And erson 10:07:00 ASPARTATE AMINOTRANSFERASE 2021-02-25 Britany Diego MD nderson 10:07:00 ALKALINE PHOSPHATASE 2021-02-25 Britany Diego MD 10:07:00 CARDIAC PANEL 2021-02-25 Sarkis Cordova MD 10:07:00 Results CBC 2021-02-25 Britany Diego MD 10:07:00 MANUAL DIFFERENTIAL 2021-02-25 Britany Diego MD 10:07:00 SERUM CREATININE 2021-02-25 Britany Diego MD 10:07:00 .GLOMERULAR FILTRATION RATE 2021-02-25 Britany Diego MD 10:07:00 ANION GAP 2021-02-25 Britany Diego MD 10:07:00 TROPONIN T 2021-02-25 Ignacio Scott MD 04:48:00 CARDIAC PANEL 2021-02-25 Sarkis Cordova MD 04:48:00 URINE CULTURE 2021-02-24 Britany Diego MD 23:51:00 URINALYSIS WITH MICROSCOPIC 2021-02-24 Britany Diego MD IF INDICATED 23:51:00 URINALYSIS MICROSCOPIC 2021-02-24 Britany Diego MD Willis son 23:51:00 CARDIAC PANEL 2021-02-24 Ignacio Scott MD 22:13:00 NT PRO BNP 2021-02-24 Ignacio Scott MD 22:13:00 LIPID PANEL 2021-02-24 Ignacio Scott MD 22:13:00 HEMOGLOBIN A1C 2021-02-24 Ignacio Scott MD 20:32:00 ECHOCARDIOGRAM 2D COMPLETE W 2021-02-24 Britany Diego MD CONTRAST 16:00:23 PETCT WB INITIAL TREATMENT 2021-02-24 Britany Diego MD nderson STRATEGY 13:42:26 COMPLETE BLOOD COUNT W/ 2021-02-24 Britany Diego MD rson DIFFERENTIAL 09:45:00 SODIUM LEVEL 2021-02-24 Britany Diego MD 09:45:00 POTASSIUM LEVEL 2021-02-24 Britany Diego MD 09:45:00 CHLORIDE LEVEL 2021-02-24 Britany Diego MD 09:45:00 CARBON DIOXIDE LEVEL 2021-02-24 Britany Diego MD n 09:45:00 BLOOD UREA NITROGEN 2021-02-24 Britany Diego MD 09:45:00 SERUM CREATININE 2021-02-24 Britany Diego MD 09:45:00 GLUCOSE, RANDOM 2021-02-24 Britany Diego MD 09:45:00 LACTATE DEHYDROGENASE 2021-02-24 Britany Diego MD on 09:45:00 URIC ACID 2021-02-24 Britany Diego MD 09:45:00 PHOSPHORUS LEVEL 2021-02-24 Britany Diego MD 09:45:00 FRACTIONATED BILIRUBIN 2021-02-24 Britany Diego MD son 09:45:00 ALBUMIN LEVEL 2021-02-24 Britany Diego MD 09:45:00 CALCIUM LEVEL TOTAL 2021-02-24 Britany Diego MD 09:45:00 MAGNESIUM LEVEL 2021-02-24 Britany Diego MD 09:45:00 ALANINE AMINOTRANSFERASE 2021-02-24 Britany Diego MD And erson 09:45:00 ASPARTATE AMINOTRANSFERASE 2021-02-24 Britany Diego MD nderson 09:45:00 ALKALINE PHOSPHATASE 2021-02-24 Britany Diego MD Anderso n 09:45:00 Results CBC 2021-02-24 Britany Diego MD 09:45:00 MANUAL DIFFERENTIAL 2021-02-24 Britany Diego MD 09:45:00 SERUM CREATININE 2021-02-24 Britany Diego MD 09:45:00 .GLOMERULAR FILTRATION RATE 2021-02-24 Britany Diego MD 09:45:00 ANION GAP 2021-02-24 Britany Diego MD 09:45:00 EKG, 12-LEAD (PORTABLE) 2021-02-24 Sarkis Cordova MD Arya rson 00:00:00 INFECTIOUS DISEASE GROUPING 2021-02-23 Britany Diego MD 23:20:00 CMV ANTIBODY IGG AND IGM 2021-02-23 Britany Diego MD And erson 23:20:00 CMV ANTIBODY IGG AND IGM PATH 2021-02-23 Britany Diego REVIEW 23:20:00 TYPE AND SCREEN 2021-02-23 Britany Diego MD 23:20:00 COMPLETE BLOOD COUNT W/ 2021-02-23 Britany Diego MD Arya rson DIFFERENTIAL 23:20:00 ABORH 2021-02-23 Britany Diego MD 23:20:00 ANTIBODY SCREEN 2021-02-23 Britany Diego MD 23:20:00 Results CBC 2021-02-23 Britany Diego MD 23:20:00 MANUAL DIFFERENTIAL 2021-02-23 Britany Diego MD 23:20:00 SERUM CREATININE 2021-02-23 Willem English MD 23:20:00 CYTOKINE PANEL 2021-02-23 Willem English MD 23:20:00 URIC ACID 2021-02-23 Willem English MD 23:20:00 FRACTIONATED BILIRUBIN 2021-02-23 Willem English MD on 23:20:00 ALKALINE PHOSPHATASE 2021-02-23 Willem English MD 23:20:00 LACTATE DEHYDROGENASE 2021-02-23 Willem English MD Anddeandreo n 23:20:00 ALANINE AMINOTRANSFERASE 2021-02-23 Willem English MD Arya rson 23:20:00 ASPARTATE AMINOTRANSFERASE 2021-02-23 Willem English MD 23:20:00 ELECTROLYTE PANEL 2021-02-23 Willem English MD 23:20:00 MAGNESIUM LEVEL 2021-02-23 Willem English MD 23:20:00 TOTAL PROTEIN 2021-02-23 Willem English MD 23:20:00 ALBUMIN LEVEL 2021-02-23 Willem English MD 23:20:00 CALCIUM LEVEL TOTAL 2021-02-23 Willem English MD 23:20:00 PHOSPHORUS LEVEL 2021-02-23 Willem English MD 23:20:00 GLUCOSE, RANDOM 2021-02-23 Willem English MD 23:20:00 IMMUNOGLOBULIN A SERUM 2021-02-23 Willem English MD on 23:20:00 IMMUNOGLOBULIN M SERUM 2021-02-23 Willem English MD on 23:20:00 IMMUNOGLOBULIN G SERUM 2021-02-23 Willem English MD on 23:20:00 THYROXINE 2021-02-23 Willem English MD 23:20:00 THYROID STIMULATING HORMONE 2021-02-23 Willem English MD nderson 23:20:00 BETA 2 MICROGLOBULIN 2021-02-23 Willem English MD 23:20:00 VITAMIN D 25 HYDROXY LEVEL 2021-02-23 Willem English MD 23:20:00 DIRECT ANTIGLOBULIN TEST 2021-02-23 Willem English MD Arya rson 23:20:00 HEPATITIS B CORE ANTIBODY 2021-02-23 Willem Englsih MD And erson 23:20:00 HEPATITIS B SURFACE ANTIGEN, 2021-02-23 Willem English MD SERUM 23:20:00 HTLV I+II ANTIBODY 2021-02-23 Willem English MD 23:20:00 SERUM CREATININE 2021-02-23 Willem English MD 23:20:00 .GLOMERULAR FILTRATION RATE 2021-02-23 Willem English MD nderson 23:20:00 HEMOGLOBIN A1C 2021-02-23 Britany Diego MD 23:20:00 LIPID PANEL 2021-02-23 Britany Diego MD 23:20:00 PROTHROMBIN TIME 2021-02-23 Britany Diego MD 23:20:00 HEPATITIS B CORE TOTAL 2021-02-23 Britany Diego MD Willisjax campos ANTIBODY 23:20:00 HEPATITIS B SURFACE AG 2021-02-23 Britany Diego MD W/CONFIRM 23:20:00 HTLV I/II AB SCREEN WITH 2021-02-23 Britany Diego MD CONFIRM 23:20:00 HIV-1 DNA AND RNA QUAL PCR 2021-02-23 Britany Diego MD nderson 23:20:00 HEPATITIS C VIRUS ANTIBODY 2021-02-23 Britany Diego MD nderson 23:20:00 HIV-1/2 ANTIGEN AND 2021-02-23 Britany Diego MD ANTIBODIES, FOURTH GENERATION 23:20:00 RAPID PLASMA REAGIN (RPR) 2021-02-23 Britany Diego MD 23:20:00 BLOOD UREA NITROGEN 2021-02-23 Willem English MD 23:20:00 TMP INTERPRETATION DIRECT 2021-02-23 Willem English MD And erson ANTIGLOBULIN TEST 23:20:00 CLOT EXPIRATION DATE 2021-02-23 Britany Diego MD n 23:20:00 TMP INTERPRETATION ANTIBODY 2021-02-23 Britany Diego MD SCREEN NEGATIVE 23:20:00 TMP HIV 1/2 AG&AB PATH INTERP 2021-02-23 Britany Diego 23:20:00 TMP HCVAB INTERP 2021-02-23 Britany Diego MD 23:20:00 TMP RPR PATH INTERP 2021-02-23 Britany Diego MD [place] 23:20:00 COVID-19 (SARS-COV-2) 2021-02-23 Willem English MD Anddeandreo n ASYMPTOMATIC-LT 22:29:00 PATHOLOGY OUTSIDE 2021-02-04 Soledad Kendrick MD INTERPRETATION 00:00:00 PHACOEMULSIFICATION OF 2020-12-01 Robin Bradley [facility] CATARACT WITH INTRAOCULAR 15:03:00 [facility] LENS IMPLANT ASSIGNMENT OF BENEFITS 2020-11-29 Doctor Unassigned, [facility] 20:50:21 [facility] POCT-GLUCOSE METER 2020-09-29 Hasan, Zaheer Ali [facility] - 11:24:00 [facility] POCT-GLUCOSE METER 2020-09-29 Hasan, Zaheer Ali [facility] - 07:37:00 [facility] BASIC METABOLIC PANEL (7) 2020-09-29 Jessica, Ramesh [facility] - 05:02:00 [facility] CBC (HEMOGRAM ONLY) 2020-09-29 Jessica, Ramesh [facility] - 05:02:00 [facility] MAGNESIUM 2020-09-29 Jessica, Ramesh [facility] - 05:02:00 [facility] POCT-GLUCOSE METER 2020-09-28 Hasan, Zaheer Ali [facility] - 22:29:00 [facility] US ABDOMEN LIMITED 2020-09-[address] [facility] - 15:36:00 [facility] APTT 2020-09-28 Jessica, Ramesh [facility] - 10:58:00 [facility] POCT-GLUCOSE METER 2020-09-28 Hasan, Zaheer Ali [facility] - 07:47:00 [facility] BASIC METABOLIC PANEL (7) 2020-09-28 Jessica, Ramesh [facility] - 06:37:00 [facility] CBC (HEMOGRAM ONLY) 2020-09-28 Jessica, Ramesh [facility] - 06:37:00 [facility] MAGNESIUM 2020-09-28 Jessica, Ramesh [facility] - 06:37:00 [facility] APTT 2020-09-[address] [facility] 00:27:00 [facility] POCT-GLUCOSE METER 2020-09-27 Juanyolimpia Zaheer Smith [facility] - 16:39:00 [facility] POCT-GLUCOSE METER 2020-09-27 Juanyolimpia Zaheer Smith [facility] - 11:16:00 [facility] 2D ECHO W/ DOPPLER 2020-09-[address] [facility] - (CW/PW/COLOR) 09:45:35 [facility] POCT-GLUCOSE METER 2020-09-27 Diana Zaheer Smith [facility] - 08:43:00 [facility] SARS-COV2/RT-PCR ([facility] & REF 2020-09-27 Jessica, [facility] LABS) 04:13:00 [facility] BASIC METABOLIC PANEL (7) 2020-09-27 Jessica, [facility] - 04:13:00 [facility] CBC (HEMOGRAM ONLY) 2020-09-[address] [facility] - 04:13:00 [facility] MAGNESIUM 2020-09-27 [facility] - 04:13:00 [facility] IRON, TIBC, % SAT. (WITHOUT 2020-09-27 Diana Zaheer Smith [facility] - FERRITIN) 04:13:00 [facility] FERRITIN 2020-09-27 Diana Zaheer Smith [facility] - 04:13:00 [facility] VITAMIN B12 AND FOLATE 2020-09-27 Diana Zaheer [facility] - 04:13:00 [facility] POCT-GLUCOSE METER 2020-09-26 Diana Zaheer Smith [facility] - 23:06:00 [facility] APTT 2020-09-[address] [facility] - 12[facility]26:00 [facility] ABORH, MANUAL 2020-09-[address] [facility] - 06:46:00 [facility] XR CHEST 1 VIEW PORTABLE / 2020-09-26 [facility]or[facility]arrubias [facility] 05:40:00 [facility] Center CBC W/PLT COUNT & AUTO 2020-09-[address] [facility] - DIFFERENTIAL 04:29:00 [facility] Center COMPREHENSIVE METABOLIC PANEL 2020-09-26 [address] [facility]iger [facility] - 04:29:00 [facility] HEMOGLOBIN A[facility] Center HIGH SENSITIVITY TROPONIN I 2020[facility]09-[facility]00 [place] [facility]00 [facility] CBC W/PLT COUNT & AUTO 2020[facility]09[facility] [facility] - DIFFERENTIAL 04:29:00 [facility] B-TYPE NATRIURETIC FACTOR 2020-09[facility]00 [facility] TYPE AND SCREEN, AUTOMATED 2020-09[facility] PROTHROMBIN TIME/INR 2020-09-[facility]00 [facility] APTT 2020-09-[facility] 04:28:00 [facility] ECG 12-LEAD 2020-09-26 Unknown, Hl7 Doctor [facility]DO [facility] - 03:44:53 [facility] ECG 12-LEAD 2020-09-[address] [facility] - 03:44:53 [facility] PHACOEMULSIFICATION OF 2020-09-15 Robin Bradley [facility] CATARACT WITH INTRAOCULAR 18:32:00 Medica l Branch LENS IMPLANT CBC WITH DIFF 2020-09-13 Robin Bradley [facility] 19:46:00 Medical Branch COVID-19 (ID NOW RAPID 2020-09-13 Robin Bradley [facility] TESTING) 19:40:00 Medical Branch ASSIGNMENT OF BENEFITS 2020-09-13 Doctor Unassigned, [facility] 19:32:02 [facility] [facility] Plan of Care Planned Activity Planned Date Details Comments Source Future Scheduled 2020-10-[address] [facility] - Test 00:00:00 (#1) [code = Medical Center INFLUENZA VACCINE (#1)] Future Scheduled 2020-10-[address] [facility] - Test 00:00:00 (#1) [code = Medical Center INFLUENZA VACCINE (#1)] Future Scheduled 2020-10-[address] [...] Medicare IPPE (WELCOME TO MEDICARE)] Future Scheduled 2020-02-[address] [...] Medicare IPPE (WELCOME TO MEDICARE)] Future Scheduled 2020-02-[address] [...] SHINGLES VACCINES (1 of 2)] Future Scheduled 1983-08-02 SHINGLES VACCINES ([address] [facility] - Test 00:00:00 of 2) [code = Medical Center SHINGLES VACCINES (1 of 2)] Future Scheduled 1983-08-02 SHINGLES VACCINES ([address] [facility] - Test 00:00:00 of 2) [code = Medical Center SHINGLES VACCINES (1 of 2)] Future Scheduled 1952 DTAP/TDAP/TD VACCINES [facility] Test 00:00:00 (1 - Tdap) [code = Medical C enter DTAP/TDAP/TD VACCINES (1 - Tdap)] Future Scheduled 1952 DTAP/TDAP/TD VACCINES [facility] Test 00:00:00 (1 - Tdap) [code = Medical C enter DTAP/TDAP/TD VACCINES (1 - Tdap)] Future Scheduled 1952 DTAP/TDAP/TD VACCINES [facility] Test 00:00:00 (1 - Tdap) [code = Medical C enter DTAP/TDAP/TD VACCINES (1 - Tdap)] Future Scheduled 1945 COVID-19 VACCINE (1) [facility] Test 00:00:00 [code = COVID-[address] VACCINE (1)] Future Scheduled 1945 COVID-19 VACCINE (1) [facility] Test 00:00:00 [code = COVID-[address] VACCINE (1)] Future Scheduled 1945 COVID-19 VACCINE (1) [facility] - Test 00:00:00 [code = COVID-[address] VACCINE (1)] Future Scheduled 1945 COVID-19 Vaccination MD Blackwell Test 00:00:00 (1) [code = COVID-19 Vaccination (1)] Encounters Start End Encounter Admission Attending Care Care Encounter Source Date/Time Date/Time Type Type Clinicians Facility Department ID 2021-03-28 Outpatient [place] [facility] [id number] 10:33:59 PROVIDER Darron romero 2021-03-23 Outpatient [facility] [id number] 12:50:51 [id number] Mauricio [facility] 2021-02-24 Outpatient [place] HERCULES MDA [id number] 11:43:32 PROVIDER Darron romero 2020-12-27 Outpatient KIRK [facility] OPH [id number] Univers 19:23:53 ROBIN [facility] 2020-12-27 Outpatient Angi BRADLEY [facility] OPH [id number] Univers 09:11:23 ROBIN [facility] 2020-09-26 Inpatient ER ORDOÑEZ-CAM [facility] Cardiology [id number] [facility] 03:36:00 FRANKY MANDUJANO 2021-02-23 2021-03-24 Inpatient UR SCHMIDT, MDA Lymphoma/My [id number] 13:41:00 19:21:00 Kiran romero 2021-03-24 2021-03-24 Inpatient EL SCHMIDT, MDA MDA [id number] 10:54:08 11:20:43 SONDRA romero 2021-03-22 2021-03-22 Inpatient SHEELA DIEGO MDA MDA [id number] 16:47:23 17:01:06 MAY Darron romero 2021-03-20 2021-03-20 Inpatient SHEELA DELATORRE MDA MDA [id number] 18:48:13 19:17:20 BROOKS romero 2021-03-16 2021-03-16 Inpatient SHEELA DELATORRE MDA MDA [id number] 12:06:37 12:30:56 BROOKS romero 2021-03-09 2021-03-09 Ambulatory nullFlavo MNA [id number] Memoria 20:15:00 20:15:00 Pre-Reg r Neurology 05 l Karnakkezia Palacios 2021-03-07 2021-03-07 Outpatient SHEELA LEGER MDA MDA [id number] 06:00:00 23:59:00 MYA romero 2021-03-04 2021-03-04 Inpatient SHEELA LEGER MDA MDA [id number] 11:44:00 11:44:02 MYA romero 2021-03-03 2021-03-03 Inpatient SHEELA DIEGO MDA MDA [id number] 13:01:47 15:50:52 MAY Darron romero 2021-03-02 2021-03-02 Inpatient SHEELA LEGER MDA MDA [id number] 13:09:01 13:09:03 MYA romero 2021-03-02 2021-03-02 Inpatient SHEELA DIEGO MDA MDA [id number] 07:37:26 11:28:07 MAY Darron romero 2021-03-01 2021-03-01 Inpatient SHEELA ENGLISH MDA MDA [id number] 05:48:01 06:04:05 [facility] Willis so n 2021-02-28 2021-02-28 Inpatient SEHELA ENGLISH [facility] [id number] 13:09:08 13:14:44 [facility] Willis so n 2020-12-07 2020-12-08 Outpatient nullFlavo MNA [id number] Memoria 14:30:00 04:59:59 [facility] 2020-12-07 2020-12-07 Ambulatory nullFlavo MNA [id number] Memoria 15:45:00 15:45:00 [facility] 2020-12-01 2020-12-01 [facility] [id number] Univers 08:45:00 11:16:00 Encounter Robin Langford [id number] [place] [id number] [facility] 020 Branch 2020-12-01 2020-12-01 Surgery [facility] [id number] Univers 10:08:00 10:50:00 Robin Langford [id number] [place] [id number] [facility] 020 Branch 2020-11-29 2020-11-29 Laboratory Only, Adc Test [facility] 1.2.840. 114 [id number] Univers 15:49:32 16:04:32 Only Robin Bradley 350.1.13.1 0 [place] [id number] [facility] 353 Branch 2020-11-29 2020-11-29 Outpatient R [facility] [id number] Univers 15:15:00 15:15:00 [id number] ity [facility] 2020-11-29 2020-11-29 Outpatient R [facility] [id number] Univers 15:15:00 15:15:[address] [facility] 2020-11-29 2020-11-29 Orders Doctor ASHLEY 1.2.840.114 [id number] Univers 00:00:00 00:00:00 Only Unassigned, [place] 350.1.13.10 ity of [place] [facility] 4.2.7.2.686 Hernán as [id number] [place] [address] Branch 2020-11-09 2020-11-09 Outpatient R [facility] [id number] Univers 12:00:00 12:00:00 [id number] ity [facility] 2020-09-26 2020-09-29 [facility] Franky Kenyon [facility] [id number] [facility] 03:36:00 17:42:00 Encounter Zaheer Ortiz [facility] 2020-09-26 2020-09-26 Outpatient [facility] [id number] [facility] 00:00:00 23:59:00 Rosamaria e 2020-09-26 2020-09-26 Orders [facility] [id number] 00:00:00 00:00:00 Only [facility] 2020-09-26 2020-09-26 Travel [facility] [id number] [facility] 00:00:00 00:00:00 [facility] 2020-09-24 2020-09-24 Outpatient [facility] [id number] [facility] 00:[facility] 00[facility]00 [facility] Zana heath [facility] 2020-09-15 2020-09-15 [facility] 1.2.840.114 [id number] Univers 14:11:00 14:51:00 Robin Langford 350.1.13.10 [place] [id number] [place] [address] Branch 2020-09-15 2020-09-15 Surgery [facility] 1.2.840.114 [id number] 14:11:00 14:51:00 [place] 350.1.13.10 [place] 4.2.7.2.686 Surgical [id number] [place] 020 2020-09-15 2020-09-15 [facility] [id number] Univers 12:25:00 14:50:00 Encounter Robin Fay Primitivo 350.1.13.10 [place] [id number] [facility]71 Branch 2020-09-15 2020-09-15 [facility] [id number] 12:25:00 14:50:00 Encounter Robin Sumeet Primitivo 350.1.13.10 [place] 4.2.7.2.686 Surgical [id number] [place] 071 2020-09-13 2020-09-13 Outpatient R [facility] [id number] Univers 15:15:00 15:15:00 [id number] of [facility] 2020-09-13 2020-09-13 Geophysical Prospecting Surveyor Sharona Pretty Lab Main [facility] 1.2.8 40.114 [id number] Univers 14:29:04 14:44:04 Visit Robin Bradley 350.1.13.1 0 [place] [id number] De dical [address] 2020-09-13 2020-09-13 Geophysical Prospecting Surveyor Sharona Pretty [facility] 1.2.840.114 [id number] 14:29:04 14:44:04 Visit Lab Main Primitivo 350.1.13.10 [place] 4.2.7.2.686 Professio [id number] [address] 2020-09-13 2020-09-13 Laboratory OnlySharona Test [facility] 1.2.840. 114 [id number] Univers 14:17:45 14:32:45 Only Kirk Robin Langford 350.1.13.1 0 [place] [id number] [facility] [address] [place] 2020-09-13 2020-09-13 Laboratory Only, Adc [facility] 1.2.840.114 [id number] 14:17:45 14:32:45 Only Test [place] 350.1.13.10 [place] 4.2.7.2.686 [place] [id number] 353 2020-09-13 2020-09-13 Outpatient Angi BRADLEY [facility] [id number] Univers 14:00:00 14:00:00 [facility] 2020-09-13 2020-09-13 Orders Doctor ASHLEY 1.2.840.114 [id number] Univers 00:00:00 00:00:00 Only Unassigned, [place] 350.1.13.10 ity [place] [facility] 4.2.7.2.686 [facility] [id number] [facility] [address] [place] 2020-09-13 2020-09-13 Orders Doctor ASHLEY 1.2.840.114 [id number] 00:00:00 00:00:00 Only Unassigned, [place] 350.1.13.10 [place] [facility] 4.2.7.2.686 [id number] 009 2020-09-06 2020-09-07 Outpatient nullFlavo MNA [id number] Memoria 19:00:00 04:59:59 r Neurology 02 l Corwin Palacios 2020-08-20 2020-08-20 Outpatient Angi BRADLEY [facility] [id number] Univers 15:45:00 15:45:00 ROBIN [facility] 2020-08-11 2020-08-11 [facility] [id number] [facility] 2020-08-09 2020-08-10 Outpatient nullFlavo MNA [id number] Memoria 20:00:00 04:59:59 r Neurology 01 l Corwin Palacios 2020-08-03 2020-08-03 [facility] [id number] [facility] 2020-07-28 2020-07-28 Outpatient [facility]LMLC [facility] [id number] [facility] 2020-07-19 2020-07-20 Outpatient soledadFlavo [facility] [id number] Memoria 19:30:00 04:59:59 r Neurology 00 l Karnak Philip 2020-07-13 2020-07-13 Outpatient [facility]LMLC [facility] [id number] [facility] 2020-07-05 2020-07-05 Outpatient [facility] [id number] [facility] 2020-06-29 2020-06-29 Outpatient [facility]LC [facility] [id number] [facility] 2020-06-25 2020-06-25 [facility] [id number] [facility] 2020-06-24 2020-06-24 [facility] [id number] [facility] 2019-01-10 2019-01-20 Inpatient Simba Yoder [id number] Memoria 03:18:46 00:08:00 r Philip 00 l [place] Lilly nn 2019-01-10 2019-01-10 Inpatient E [facility] 7500 FB 15:16:00 01:33:00 Results Test Description Test Time Test Comments Results Result Comments Source Fungus Culture w/Smear 2021-04-03 17:21:30 Test Item Value Reference Range Interpretation Comme nts Final Report (test code = 8488) No fungus isolated at 4 weeks. Path Review - Fungus (test code = Culture yield may be affected by sample 8479) quality, prior treatment, and transportation conditions....The results have been reviewed and electronically signed by Pathologist:Bryan Alvarado MD, PhD #[id number] Calcofluor Stain (test code = 658-5) No Fungi seen in direct smearT est performed by fluorescent stain methodology. GRABIEL (test code = GRABIEL) Cultures are held for 4 weeks before finalization. MD BlackwellAnion [id number] 12:40:23 Test Item Value Reference Range Interpretation Comments Anion Gap (test code 10 See_Comment [Autom ated message] The = 1856) system which ge nerated this result transmit valentina reference range : 4 - 14 mEq/L. The refe rence range was not used to interpret this result as normal/abnormal . MD BlackwellChloride [id number] 12:40:22 Test Item Value Reference Range Interpretation Comments Chloride (test code = 103 See_Comment [Auto mated message] The 9675) system which ge nerated this result tra nsmitted reference range : 98 - 107 mEq/L. The refe rence range was not u sed to interpret this result as normal/abnormal . MD BlackwellP[id number] 12:40:21 Test Item Value Reference Range Interpretation Comments Potassium Lvl (test 3.8 See_Comment [Automa valentina message] The code = 6854) system which ge nerated this result tra nsmitted reference range : 3.5 - 5.1 mEq/L. The reference range was not u sed to interpret this result as normal/abnormal . MD BlackwellSodium [id number] 12:40:20 Test Item Value Reference Range Interpretation Comments Sodium Lvl (test code 138 See_Comment [Auto mated message] The = 1737) system which ge nerated this result tra nsmitted reference range : 136 - 145 mEq/L. The refe rence range was not used to interpret this result as normal/abnormal . MD BlackwellFractionated [id number] 12:40:19 Test Item Value Reference Range Interpretation Comments Bili Total (test 0.6 mg/dL See_Comment Indocyanine Green (ICG) code = 5096) may cause false ly elevated biliru bin results. Total and direct bilirubin must not be measured from s amples containing indo cyanine green. False el evation of total bilirubin can be seen in patient s with IgG concentrations above 28 g/L. [Automate d message] The system [employer] generated this result transmitted ref erence range: <=1.2. T he reference range was not used to interpr et this result as normal/abnormal . Bili Direct (test 0.2 mg/dL See_Comment Indocyanin e Green (ICG) code = 5094) may cause false ly elevated biliru bin results. Total and direct bilirubin must not be measured from s amples containing indo cyanine green. [Automat ed message] The sy stem which generated this result transmitted ref erence range: <=0.3. T he reference range was not used to interpr et this result as normal/abnormal . Bili Indirect (test 0.4 mg/dL 0.0-0.9 code = 5095) MD BlackwellGlomerular Filtration [id number] 12:40:18 Test Item Value Reference Range Interpretation Comments eGFR-AA (test code 105 See_Comment Normal eG FR: >= 60 = 8062) mL/min/1.73 m2N ote: The eGFR is calculated u sing the CKD-EPI equatio n. The eGFR declines with a ge. eGFR <60 mL/min/1.73 m2 is considered as "decreased". This equation should only be used for patients 18 and older. According to th e National Kidney Foundati on's Kidney Disease Outcome Quality Initiative (KDO QI) classification and 2012 Kidney Disease Improving Global Outcomes (KDIGO) Clinical Practi ce Guideline, the stage of CK D should be categorized bas ed on estimated GFR. Stage Description GFR mL/min/1.73 m21 Normal or high GFR >=902 Mildly decrease d GFR 60-893a M ildly to moderately decr eased GFR 45-593b Moderat selene to severely decrea sed GFR 30-444 Severely decreased GFR 15-295 Kid elidia failure <15 [Automa valentina message] The system [employer] generated this result tra nsmitted reference range : >=60 mL/min/1.73 sq. m. The reference range was not used to interpret th is result as normal/abnormal . eGFR-YSABEL (test code 90 See_Comment Normal e GFR: >= 60 = 8063) mL/min/1.73 m2N ote: The eGFR is calculated u sing the CKD-EPI equatio n. The eGFR declines with a ge. eGFR <60 mL/min/1.73 m2 is considered as "decreased". This equation should only be used for patients 18 and older. According to th e National Kidney Foundati on's Kidney Disease Outcome Quality Initiative (KDO QI) classification and 2012 Kidney Disease Improving Global Outcomes (KDIGO) Clinical Practi ce Guideline, the stage of CK D should be categorized bas ed on estimated GFR. Stage Description GFR mL/min/1.73 m21 Normal or high GFR >=902 Mildly decrease d GFR 60-893a M ildly to moderately decr eased GFR 45-593b Moderat selene to severely decrea sed GFR 30-444 Severely decreased GFR 15-295 Kid elidia failure <15 [Automa valentina message] The system [employer] generated this result tra nsmitted reference range : >=60 mL/min/1.73 sq. m. The reference range was not used to interpret th is result as normal/abnormal . MD BlackwellUric [id number] 12:40:17 Test Item Value Reference Range Interpretation Comments Uric Acid (test code = 7955) 2.6 mg/dL 3.4-7.0 L Lab Interpretation (test code = Abnormal 19150-5) MD BlackwellMagnesium [id number] 12:40:15 Test Item Value Reference Range Interpretation Comments Magnesium (test code = 6359) 1.9 mg/dL 1.6-2.6 MD BlackwellGlucose, Pwrniu1694-30-20 12:40:14 Test Item Value Reference Range Interpretation Comments Glucose Random (test 95 mg/dL 70-199 Effecti ve 09/22/15, the code = 9360) glucose referen ce intervals have been updated based o n [place] [employer] marlene delines (Standards of M edical Care in Diabete s 2016. Diabetes Care 2 016; 39: S13-S22).Fastin g blood glucose:Normal: 70-99 mg/dLImpaired f asting glucose (increa sed risk for diabetes or pre-diabetes): 100-125 mg/dLDiabetes m ellitus: >/=126 mg/dL Ra ndom blood glucose:N ormal: 70-199 mg/dLNot e: Random glucose >100 mg /dL is associated with increased risk for diabetes MD BlackwellAlkaline [id number] 12:40:13 Test Item Value Reference Range Interpretation Comments Alk Phos (test code = 4768) 96 U/L 40-129 MD BlackwellPhosphorus [id number] 12:40:12 Test Item Value Reference Range Interpretation Comments Phosphorus (test code = 6817) 3.0 mg/dL 2.5-4.5 MD BlackwellAlanine Nlueliwttdqhyykx2573-50-04 12:40:11 Test Item Value Reference Range Interpretation Comments ALT (test code = 5 U/L See_Comment [Automated message] The 6551) system which ge nerated this result transmit valentina reference range : <=41. The reference range was not used to interpr et this result as abbey l/abnormal. MD BlackwellQpvyuqhfLKV6607-97-27 12:40:10 Test Item Value Reference Range Interpretation Comments LDH (test code = 6111) 444 U/L 135-225 H Resul ts greater than 1651 U/L may no t be reliable due to matrix effect w ith extended diluti on as it exceeds the pig machine operator s recommended l imit. Caution should be exercised when interpreting rojas ch values and done in conjunction wit clinical contex t. Lab Interpretation (test Abnormal code = 14438-9) MD Blackwell.Serum Rnphtrcdsh6996-81-67 12:40:09 Test Item Value Reference Range Interpretation Comments Creatinine (test code = 5399) 0.60 mg/dL 0.67-1.17 L Lab Interpretation (test code = Abnormal 34896-3) MD BlackwellCalcium [id number] 12:40:08 Test Item Value Reference Range Interpretation Comments Calcium Lvl (test code = 5258) 8.8 mg/dL 8.4-10.2 MD BlackwellVnrrktjqPMY6600-24-70 12:40:07 Test Item Value Reference Range Interpretation Comments BUN (test code = 5055) 6 mg/dL 6-23 MD BlackwellAlbumin [id number] 12:40:06 Test Item Value Reference Range Interpretation Comments Albumin Lvl (test code = 2.7 See_Comment L [A utomated message] 7988) The system [employer] generated this result transmitted ref erence range: 3.5 - 5. 2 gm/dL. The refe rence range was not u sed to interpret this result as normal/abnor mal. Lab Interpretation (test Abnormal code = 01961-4) MD BlackwellAspartate Malasfgpdksyhwgg9375-53-48 12:40:05 Test Item Value Reference Range Interpretation Comments AST (test code = 23 U/L See_Comment [Automated message] The 6496) system which ge nerated this result transmit valentina reference range : <=40. The reference range was not used to interpr et this result as abbey l/abnormal. MD BlackwellCarbon Dioxide [id number] 12:40:04 Test Item Value Reference Range Interpretation Comments CO2 (test code = 25 See_Comment [Automated message] The 5227) system which ge nerated this result transmit valentina reference range : 22 - 29 mEq/L. The refe rence range was not used to interpret this result as normal/abnormal . MD BlackwellLdvuusmnZarpqjluiteo9650-11-42 11:49:05 Test Item Value Reference Range Interpretation Comments Neutrophil % (test code = 64.2 % 42.0-66.0 41535-0) Lymphocyte % (test code = 19.8 % 24.0-44.0 L 737-7) Monocyte % (test code = 12.5 % 2.0-7.0 H 744-3) Eosinophil % (test code = 2.7 % 1.0-4.0 713-8) Basophil % (test code = 0.4 % 0.0-1.0 707-0) IGRE % (test code = 0.4 % 0.0-0.4 IGRE % c ount 60146-1) includes Metamyelocytes, Myelocytes, and Promyelocytes. Neutrophil Abs (test code 1.69 K/uL 1.70-7.30 L = 753-4) Lymphocyte Abs (test code 0.52 K/uL 1.00-4.80 L = 732-8) Monocyte Abs (test code = 0.33 K/uL 0.08-0.70 743-5) Eosinophil Abs (test code 0.07 K/uL 0.04-0.40 = 712-0) Basophil Abs (test code = 0.01 K/uL 0.00-0.10 705-4) IG Abs (test code = 0.01 K/uL 0.00-0.04 51469-7) Lab Interpretation (test Abnormal code = 94081-0) MD Blackwell.[id number] 11:49:01 Test Item Value Reference Range Interpretation Comments WBC (test code = 2.6 K/uL 4.0-11.0 L 6690-2) RBC (test code = 789-8) 2.95 See_Comment L [Au tomated message] The system [employer] generated this result transmitted ref erence range: 4.50 - 6 .00 M/uL. The refer ence range was not u sed to interpret this result as normal/abnor mal. Hgb (test code = 718-7) 8.1 See_Comment L [Au tomated message] The system [employer] generated this result transmitted ref erence range: 14.0 - 1 8.0 gm/dL. The refe rence range was not u sed to interpret this result as normal/abnor mal. Hct (test code = 26.0 % 40.0-54.0 L 4544-3) MPV (test code = 787-2) 11.7 fL 4.0-10.4 H MCH (test code = 785-6) 27.5 pg 27.0-31.0 MCHC (test code = 31.2 See_Comment [Automate d message] 786-4) The system [employer] generated this result transmitted ref erence range: 31.0 - 3 6.0 gm/dL. The refe rence range was not u sed to interpret this result as normal/abnor mal. RDW-SD (test code = 50.9 fL 35.1-46.3 H 67793-7) RDW-CV (test code = 15.9 % 12.0-15.5 H 788-0) Platelet count (test 94 K/uL 140-440 L code = 777-3) INRBC (test code = 0.0 % See_Comment The INRBC (instrument 5974) NRBC) value ref lects the enumeration of nucleated red b lood cells contained in a 200uL sampleof whole blood analyzed by the instrument. Thi s value maydiffer from the NRBC value repo rted in a manual differential,wh ich is based on a 100 cell differential. [Automated mess age] The system [employer] generated this result transmitted ref erence range: <=0.0. T he reference range was not used to int erpret this result as normal/abnormal . Lab Interpretation Abnormal (test code = 19558-4) MD BlackwellCOTREVORD-19 (SARS-CoV-2) PCR-Asymptomatic [id number] 07:20:38 Test Item Value Reference Range Interpretation Comments COVID19 (SARS Not Detected Not Detected CoV-2) Result (test code = ____[place] a 03254-3) qualitative reverse-transcr iptase polymerase winnie n reaction (RT-PC R) developed for t he Harjinder KAYLA 680 0 system and inte nded for qualitative detection of SA RS CoV-2 RNA in nasopharyngeal and oropharyngeal s wab specimens colle cted from any indivi duals, including those suspected of CO VID-19 by their health care provider, and t hose without symptom s or other reasons t o suspect COVID-1 9. A fact sheet for patients provid ed by the manufacture r ([employer]) c an be reviewed at:https://www. fda.go v/media/044642/ downlo ad. A fact shee t for Health Care pro viders is provided by the pig machine operator ([employer]) and can be reviewed at: https://www.fda .gov/m edia/337806/michael nload Results must be interpreted wit hin the context of all relevant clinic al and laboratory find ings and should not form the sole basis for a diagnosis or treatment decis ion. Positive result s do not rule out bacterial infec tion or co-infection with other viruses. Negative result s do not rule out SARS-CoV-2 and must be combined wit h clinical observations, p atient history, and/or epidemiological information. "Presumptive Positive" resul ts are due to partial amplification o f SARS-CoV-2 targ ets and indicates l ow amounts of viru s present in the specimen at or near the limit of detection. Regardless, individuals wit h "Presumptive Positive" resul ts should be manag ed per institutional guidelines as individuals pos itive for SARS-CoV-2 virus, including use o f appropriate inf ection control protoco ls. Internal contro ls are included to ass ess for possible amplification inhibitors. If inhibition is detected, testi ng is repeated and if inhibition is confirmed the specimen is res ulted as "Invalid". W hen an "Invalid" resul t occurs, it is recommended to wait 3 days before submitting a ne w specimen for te sting if clinically indicated. Thi s assay has been approved by the FDA for use only un jonas Emergency Use Authorization ( EUA) in laboratories that have been CLIA-certified to perform moderate-comple xity and high-comple xity tests. The performance characteristics of this assay were verified by the Microbiology Laboratory at [facility], CLIA Accreditation # : [id number] and CAP Accreditation # : [id number]. COVID19 SARS ROULETTE DEALER Swab Source (test code = 18650) COVID19 SARS Inpatient Indication (test Admission code = 18039) GRABIEL (test code = Nosocomial weekly GRABIEL) swab per ID MD BlackwellTMP Interpretation Antibody Screen [id number] 15:18:28 Test Item Value Reference Range Interpretation Comments TMP Auto Neg At the present ABSC Interp time, patient (test code = plasma shows no ____JAIMIE NOVA MD - 7535) evidence of RBC [id number] d by: JAIMIE alloantibodies. MD Rip LOPEZ [id number] D ate/Time: 03.22.2021 9:18 AM DIRECTOR TRIAL Transcribed Rajendra e/Time: 03.22.2021 9:18 AM CSTElectronical [place] By: [place] [id number] on 03.22 9:18 AM C MD BlackwellAntibody [id number] 14:41:21 Test Item Value Reference Range Interpretation Comments ABSC. (test code = 890-4) Negative ABSC MD BlackwellNbsnrilrXKRFc2249-41-19 14:38:03 Test Item Value Reference Range Interpretation Comments ABORh. (test code = 882-1) B POS MD BlackwellClot Expiration [id number] 14:38:00 Test Item Value Reference Range Interpretation Comments T & S Expiration (test code = 03/25/2021 5318) MD BlackwellParaneoplastic Autoantibody Eval, [id number] 18:04:05 Test Item Value Reference Range Interpretation Comments Para Eval See Footnote No informative autoantibodies Interpretati were detected i n on, CSF theParaneoplast ic Evaluation. (test code = However, a nega tive result 54083-6) doesnot exclude neurological autoimmunity wi th or withoutassociat ed neoplasia. Sensitivity and specificity ofantibody test ing are enhanced by dain ting both serum andCSF. ANNA1 Negative See_Comment [Automated mes celestina] The [employer] system which ge nerated this (test code = result transmit valentina reference 10971-2) range: <1:2 tit er. The reference range was not used to interpret th is result as normal/abnormal . Reflex Added None. -----ADDITIONAL [facility] INFORMATION---- (test code = This test was d eveloped and 23068-1) its performance characteristics determined by [facility] in a manner consistent with CLIArequirement s. This test has not been cl eared or approved bythe U.S. Food and Drug Administra tion. ANNA2 Negative See_Comment -----ADDITIONAL [facility] (test code = This test was d eveloped and 51478-8) its performance characteristics determined by [facility] in a manner consistent with CLIArequirement s. This test has not been cl eared or approved bythe U.S. Food and Drug Administra tion. [Automated mess age] The system which generated this result transmitted ref erence range: <1:2 titer. The reference range was not u sed to interpret this result as normal/abnormal . ANNA3 Negative See_Comment -----ADDITIONAL [facility]---- (test code = This test was d eveloped and 62201-7) its performance characteristics determined by [facility] in a manner consistent with CLIArequirement s. This test has not been cl eared or approved bythe U.S. Food and Drug Administra tion. [Automated mess age] The system which generated this result transmitted ref erence range: <1:2 titer. The reference range was not u sed to interpret this result as normal/abnormal . AGNA1 Negative See_Comment -----ADDITIONAL [facility]---- (test code = This test was d eveloped and 50469-4) its performance characteristics determined by [facility] in a manner consistent with CLIArequirement s. This test has not been cl eared or approved bythe U.S. Food and Drug Administra tion. [Automated [email or web address] age] The system which generated this result transmitted ref erence range: <1:2 titer. The reference range was not u sed to interpret this result as normal/abnormal . PCA2 Negative See_Comment -----ADDITIONAL [facility]---- (test code = This test was d eveloped and 65166-6) its performance characteristics determined by [facility] in a manner consistent with CLIArequirement s. This test has not been cl eared or approved bythe U.S. Food and Drug Administra tion. Test Performed by:[place] [id number] Director: John Izaguirre M.D. Ph.D.; I A# [id number] [Automated [email or web address] age] The system which generated this result transmitted ref erence range: <1:2 titer. The reference range was not u sed to interpret this result as normal/abnormal . PCATR Negative See_Comment -----ADDITIONAL [facility]---- (test code = This test was d eveloped and 84403-6) its performance characteristics determined by [facility] in a manner consistent with CLIArequirement s. This test has not been cl eared or approved bythe U.S. Food and Drug Administra tion. [Automated [email or web address] age] The system which generated this result transmitted ref erence range: <1:2 titer. The reference range was not u sed to interpret this result as normal/abnormal . Amphip Ab Negative See_Comment -----ADDITIONAL [facility]---- (test code = This test was d eveloped and 64833-8) its performance characteristics determined by [facility] in a manner consistent with CLIArequirement s. This test has not been cl eared or approved bythe U.S. Food and Drug Administra tion. [Automated [email or web address] age] The system which generated this result transmitted ref erence range: <1:2 titer. The reference range was not u sed to interpret this result as normal/abnormal . CRMP-5-IgG Negative See_Comment -----ADDITIONAL [facility]---- (test code = This test was d eveloped and 92790-3) its performance characteristics determined by [facility] in a manner consistent with CLIArequirement s. This test has not been cl eared or approved bythe U.S. Food and Drug Administra tion. [Automated [email or web address] age] The system which generated this result transmitted ref erence range: <1:2 titer. The reference range was not u sed to interpret this result as normal/abnormal . MOTOR [employer]KE MECH[employer]IC-1 Ab Negative See_Comment -----ADDITIONAL [facility]---- (test code = This test was d eveloped and 12829-9) its performance characteristics determined by [facility] in a manner consistent with CLIArequirement s. This test has not been cl eared or approved bythe U.S. Food and Drug Administra tion. [Automated [email or web address] age] The system which generated this result transmitted ref erence range: <1:2 titer. The reference range was not u sed to interpret this result as normal/abnormal . MD BlackwellPathology Biopsy [id number] 16:06:07 Test Item Value Reference Range Interpretation Comments Addendum 1 (test code = b1eyqSJiYPMtfGJ0UfA 37) hORTod3qvf4ZzsTTtkZ DaTCzliHXeorYcib60t ZJ5hG39IM8iQCSiRsR9 XUNxwiX2Tup4TGKoWKC kzGTuK928v5fve2zair FamIC4wTdpGSTyxmjaK gJ8EGncUYLaletlSGw7 NMdlKVWudFO9OCSxdAU fS5BaZRFwDD6qzcx8IG L8LDcaGLTbCoI0MTJvc CSyUIYwcFtqQGgpc549 GJA5SwZyWCZsozIozAh ftV4mVmTjHETJbIEyY8 VuZXRpYyBzdHVkeSAoR owINWlkm8xyr7EbMXOl FJvxqBq3SYJxIMH6rJE kSq9kFX4QCsRhYC7rZH DnXDTwNO1nLU9bqvDvW GxpbmVcbGluZSBUaGUg z7ZhX5suQJsuGBdcQ80 qv6ftYPNjsOHmqzNtgR 6nzNMdQ3AlKnatBII3 Submitted Clinical History a5qwcKKyDEEfm0kxOSA (test code = 64350) mbGFuZzEwMzNcZnRuYm pcdWMxIHtccnRmMVxzc 0MtW8IuRnGzFOmyaeXg XGRlZmxhbmcxMDMzXGZ 0bmJqXHVjMVxkZWZmMH izXu7uuXMntUorMvStW FYfz3wwlbKLaqcwqJt5 x9dbCBIpTaP2qRVsDSe uR2pvkqWknLAlETWvTA p0qZ41FPSroG4jvAHuT XzuajKxMyQ8EGycQOOn ZrQ2ZFVlrETkGYUiP3w yZWQwXGdyZWVuMFxibH OeBLS1aWlzy1U1gELxc GVldHtcZjBcZnMyMiBO u3ScMPo8zJgfX9RjKEZ nSzA6lYUdZMKhAXyvZD QuTQKloaF3sI49LJrik rB6gHTqz6Zmf51rj402 hG4atRVfFQI7PGVqRFT gpQXbEHBoVDO4YDRujE UiZ0goTWTsHY2rusdoU KwhVMglTPCxxPL9NIIs gIEuI2OuJDScRPlbNTV ersx2DwEfFd3phSQvcA leSNtnf4bvb3hzlYMlX hi3WTRmMaGrGpgsQEdu h7Txs3peQGFskk0qQZB 1lBGxgDybx5U0jLWkNI MrtBXohtIeUNYjHcQ7Y WclOR9tys23BURgTTH7 rz0dpEUyeDguwaKotOJ zVXguD0EnOWGao432MS IkH6SdFHGbv5L7nqHyX dIiDWTdqQT1igR9YUVs GGm0kZTenrD2soRwoAJ nX1cyqF1lWFUbAS1fai onb2ivKLeyGCkcGBFha IA5efG7HIWskMWrP9Zs iW8pBFZhKGxsEUTdqoa 2DjApJx0bxKObwRjgRU xzYmtwYWdlXHBnbmNvb nRccGduZGVjXHBsYWlu XHBsYWluXGYwXGZzMjR tkOeceWvuxU4aNeRsDk NrIWogFZ9lVVWfO6wmg OFeXDEiBZTaK4npKvMk vI1ebUwpPPtwzmRyXWV atBosX9XkAMFnsLqdwJ gtpVUlQ2X1Ca64SL0xr GPuDOEwuWsbV0ErAFKo eBvzdIrceUSpK6BuPGQ gSUlJYiBvZiBleHRyYW 7zAJCcTSAiaXYbC7T9D v61AA4idWNiPBPyxACv D7FtMSOgX19aCHu5rE8 kxK4yTXkDVnkvLCdoRG MuafFVTPtpHSI9ILH1k aObGPqqM86zryQ6KChT CLnmX16hjJBjNSP0ort hbCBmaWJyaWxsYXRpb2 6aDK8yqPIdkFzxdszyw 6Oas9XsZ6dboUWpGJqD NDguOTFdXHBhciBVbmV 3cZhpgB1sAVZjHSnkaa HqOcI8UsIsSNSrgfCTq QsoSFViY76wpMv0VMZe rNTqpCFxRP72WGVrzzT ypWW4LKWhV0ziAY15YK 1ccGFyIFBhcmtpbnNvb lqpTQBfn0Zuw1QvK8nf DA8ffHMsCARykWRzq0J wVJKbeTuoA4DeV0qgp6 8pRK1jXWIrUCobDKdEE DQuNDJdXHBhciBEaXNw iZUsRERbnW41TPW3gh7 jaGFudGVyaWMgZnJhY3 X1qwYrg4FzbwdapQDlE mVtdXIsIHNlcXVlbGEg L3R5Dh3hSOGGIObqRNP lRAqkXLM8WX4wjN4eLM tJMTBdXHBhciBDaHJvb uaxSSI9kjainPZgzHKc bOxmNKLri50fUA0gaPO wjCcxgryvf8Uxa5MpW2 lmaWVkIFtJNDguMjBdX ZJrvaTVcFCrmdZnNW5v piLjuLMggHX3tMYtL0P 8UD37Hx6lsPkmiH7aZg EgKeBkGcywGE8eEJAlY 9bhxRCnGDQnNUQtH0zs IoWmkO0glIaoMDppfeV yJQNzzn26 Diagnosis (test code = 34) r2iijCKyIFNqqJH8DbY eIVJja8gde5SncIBooZ AkSRagnOFhbuYbjb57u DJ5xF04IE2kZTCfPoL1 JVValbU2Ayx9TFNoDVY fyYGzW174v2vlo2pkix WhpCO1XNZgZTQnR5DjZ O1hJWHhyXJdT61lnJJz WKD4PFYuYKZwpSYaVHW qDIG9LJHafCAzZ5jeHB TaNB9bwvrhBSwfJMxuV RFwvNJ7HZWqzUTuA6Zp DRVpTUnkPORowxu5HsA gKu6qsMDwlNyvZPvfVR JkXHBsYWluXGZzMjBcY 6QrPQUzEtIaiLbsk1Zd SLRzPXI1IZBoiNPtzTL fvLChkbZ3dBgzS37oCO GfNMOcqEDeMomjiHO0S lxwYXJccGFyXGxpNzIw XGxpbjcyMFxjZjAgREl GRlVTRSBMQVJHRSBCLU NFTEwgTFlNUEhPTUEsI WuHUs4KYfQQNWQVPoBE FhUTOJQYSEglYK7ZUG6 KKZoBXw1EWEEJFKOaq5 DqRRFirG8tfdYiWgdeS PTuwMNbWS5iGZMvTYns h9R9tKRsqJ6krBbwdJ1 icIRhh6JzzP5gnH3uhN qfdk97cWZnGyXqhAKrk 1B1TKVrgxUmSKCep1Gk hTluWBYmbiHfwf0mDX8 ccGFyXHBhcmRccGFyfQ == Comment (test code = 9835) x9wuwBMyLMKyoFA8OpP oEZLgg9acb2JljECedO GmSEoopCXkhqHdxz32w UZ0zA23CO1eRBEqYxT5 IXKipdU8Lji3LUUvYGO dwUUxR104h8wzi5dbgi DklGN7HNOmTSFqO6GcT R2wUEOlwRWwZ91joUUv DQZ8GCNzXHCflAEzGOG yZWI5BLPmmJVdF9npVN OfDM2aieduZMkzJVfmC UFuaBD9PQLtmJUoG2Zs UXNhAZnrVDDndzt3ShC fWz7idEHlfReeEZcsVO JkXHBsYWluXGZzMjAgV PhqskDecaTpJIz1RUib PNGsh2vsJV1nrhX6sXK xZDHnkLnvcL9eiAYqTy OayLCszQ72itSfMHbaK NQfmnWivk2sLXTeYdC6 wOFrh9InbDGptV7iQxT sUCynm5ZrbPHkOEQlq5 ZvuhKhICY9gM6eMNIjk Hhjo8PsLFV4KVUaJNgq wWmxcpBvqlWthnT3dCj wNWumY53qn8XhQLJhD2 PzzYIqv21rEU1dQ0lcv qNsgI4smC8gLIDxPtBo k8zlaDHiWRTxTX25UWK zQ4JxkBGqmmsalL9mYV FhlDurF6CmXWLynYrjt JnlfJGoO6CwERWcD2Ju zjQrSZIhCtW5x8FqpXD jN4VqHt6cDVoaTMt6xC Vtw29yMHSrDITqUXYyo 8P0m5yvNBOuv9ZfnGOz qV2wqKCfPAZjIBbxSTR nN8OtVKhnm0ZbmA4vhV Kbo2CzoBdxtoXla3vmz gQcNXKjrAZuu5edlTHh YNCmUTfkJB00csFcCmQ ry2P9YQWjz0M0ZSG5sK YvKNO8gEApS5NbCZSji NrtiD1cjEp8feA9PQ7e Xu6mr1GgcgGlyw8kBBj mEQFmoMk9BRQ0mRUnOS lzIHByZXNlbnQuIFRoZ SBhdHlwaWNhbCBpbmZp bHRyYXRlIGlzIGNvbXB yaXNlZCBvZiBsYXJnZS UuMUzcdoP3cFBwYHtsJ 8lztKUyhfKoK1HgMOOx zaQttEFvnnFzi640b6K lMYN7CKKiX5UpMVIiK9 kvd49pqDqkAICuC5Tkx 0aowkXgFMMfr03bmiFb kATnrSLqVH1njDdeDX5 xURZcvQhlGPWbr2EniM Pfi2OzFB0wiB8geMzau GuqFUQ1aR2tbWWwbZ0p OI39gCVbn4UqCZNipwv fILQsLBsaKBQgy6Z9m6 NpcyBhbmQgZnJlcXVlb pAksHm2e8OiMsUxsZr6 cmVzIGFyZSBvYnNlcnZ pUV6zBLIyqlDjkZOfgN BbFURan1HudkZsgsEso 6Zxd9Puqk0bEI2wvvmo MdMpq4njl8AcIYTgKMM cj8AlCCksylFyjnSuiM TprwDyWrthYC3avYAuW RWxktREzO68cq4tkLT2 v3VcPP1rM4AlVWB3XZv tjD0bQGLid8mbEGKuOG QgdGhlIGxhcmdlIGNlb MwmKIBgSETck0DbnPb0 GBSnm6QvP9PfSXdnG5R 0NSAoTENBKSwgQkNMMi cnAzRQCbsuAC7eXYKxQ RKoBVgpoJj2AOYza0Vm S9XvSYERIBWmHLSRWEI iMXCRKC3sBYCNVGObYP JyNMPmXAG6vX1nVJLlj KbhWGTrS9h5BLfwIUvB YT6HJZ1pFOohm6SosMt pnfSmEOCei5ZjvRzkYU htpeaoMZd2wRWys5qfM BJhrVgxWFNdYWGvo3Ur xHd0WURxi0IkCKDCZT6 rUU2qK7YxiE3fXVtczP atwUhyrCPjU2VegMRgM FNgGIQvt0z1hHYoBYAq evPMUXNyMuTvQ5S9DYF mvXsqzQnuiYWtAL49cS Mnd4KpOWMfC5aike53y aRmiAFbe9MpVUZnc8Hx KSYxZWVbVCAhi7RjOCn smz8eVKWhTOXevw7lnP ErvgO3pX7gKHlrLTK4K A3zHHL0opIzLQW9XQrn DFR2SQhkXRBlqLEvbBr tYXRlbHkgNTAtNjAlLi GJwuYxvOU7ZMg6NyVeG Bg0VEHrk33gPe9dJONP IcDOCwZNXDtiMT0aE1Y 0aXZlLlxwYXJccGFyIE Lxj5blL0w0m24jjUViO yBhbmFseXNpcyBvbiBj q52nuLKxBA52VEHsotF tbmVlZGxlIGFzcGlyYX RgQWSil5usZE3qkLjjw 6ZfSACna99miFMFHJDf bGxzIHRoYXQgYXJlIGl wVKDkfXFheAEdEi2pQW BcGwjcwVMujxCyP9phb gLgoNN5KSZyFZb0n1xm LiAgXHBhclxwYXIgVGh eUT72XQDieFchwK5fcD vuhZ4vsKAqFJ9zQXawj EGqj8FxUQ9sqTrwiARc QsfnBZttP6HyDXPcTQT pnIRqoErzkAVnz4q6rR BkaWZmdXNlIGxhcmdlI NEfN0ZxzXRrpV5gaU1a RNjvA4UjdYccJZjiU4I csGCbSXWqV9AryDHmvF 06rt0zlXEwn3T3zUXfH AWymolnXQFaL0m5l2qw oaU9uNXrr8T8ITlhOXJ XB5uuYYFdpwKTDULvH5 VkOKJuFYXgtwGoA4XzQ W53WOrxABdnTHRma3xd SSUdZHG5jISscrOaiJi 2IB2kCDclgLOcFOsosW mhJePptbXtv1F1NUKuM abalJasAHGasL3jJ2No KCW9kY5iQA8ozMktABr sEr2iPEOeykkcGLFbYN YfQH6mOXVjm92xZ7HaD 2VlNFKuknMzxo2dlDMx XHBhclxsaTFccmkxXGx pbjEgTWVkaWNhbCBuZW Mqf0HjmAuduhAtqNnrf THghNmmwgZrt5SbdCys SQdkbNYcq7qah8YfC7o msLxeDBjzn6AjhO8cXD GeDOIkt8JgPNTaJCQoQ PUneE9pVAJdcBPmb06h qW7szBwrWXWpa2suE9v 2x17liMMwGaIqaN79hk 1bbKDnv8R5bQcxTOW6z PEaUEEiZx9jCBHlOXFv TZL1ISKoHShhp3HpnkG zm9LaaBOwAMBhbqKhpz Est0whh2tdAhy+IFRoZ WLnqX96GQE2uP9gBHXp tHMgi4F5OVtixqMaetP cgq93WCLuRTZfzUufjb XabrKzNZ11DVRrwiByr 7ZdALchWPBkMTWbABO4 gCBkwcUhCBF9cZTniub gZXZhbHVhdGlvbiBpbi X1xVstCRSqXNQhrLWjH lxwYXJccGFyZFxjZjBc cGFyfQ== Gross Description (test r0ltlZMoJODcqOFWWPf code = [id number]) wMFxhbnNpXHNwbHRwZ3 YhrxwxRMquJF4zIJ0ym YyouBHjrWFtVJ4LXQWh ZmYxXHBhcGVydzEyMjQ tRGMlmXYtkTC1GWMnTQ 1hcmdsMTgwMFxtYXJnc qW2ETQkmLXoD1YuYMEy RO8huaasFZT9NLgvnZ2 dkxECBzgzVd9yuMKlyO tcZjFcZmNoYXJzZXQwX LMydWzsATKrHLr1oR4Q SdpfF17az1X4Adt5UQH iIISfY9YqRN8jPEBdoC FtX18UNmcdBEP7DGZXD pwyATNhKV1Uy2gdHOZh nKZcFWU0DYzlmQYgFKQ fRIZuWLr9LBAiCWzdkI HrZC0clUxjJhxmiGcuc 2VjdCBcXGlkIDUxMDAy BBiqGEDcCL1ZUhIsFCD tGiTbXgAgGEl3LAt5DM 4SRwVlFFGdSWi6RIlzW jBhKMm8FRjtGY7HAJsu Cdh6WHU7RxN6UGZbBbL cXHQgMiBcXGYgQXJpYW wgXFxmcyAxMCBcXGZiI KeoHrddBPreN35jiWcx mX1lAiokoyDvNTC6WTT hciANClxwbGFpblxlcG ljTmVzdERvYzEgDQpcb HRycGFyXGxpbjBccmlu MCANClxsdHJjaFxiXGN mMVxmczIwIFJldHJvcG DyyDStngF1cFuadUQzv HmxUrZbq22qpsmlwbVx XqpyWUebQjGbEOZfo19 rkVU5LX7nWjBhd02msF uwy4JwLOPzlnWzHJGkv mdpbmcgZnJvbSAwLjdj rBQ0lzJlPlvqJ86qaI5 xeORwI5BaDMQiOCZoId DyF59cdH9oCQwzlHW3M YQvTLJtxRaeGEa2GQX6 Ki7agHNnAGKbgnMHDKH vRbCww1DkyargBM4zKT ZgBSpoBNQedaZnGS7lB VQNClxlcGljTmVzdERv FnIkhfY7JLLshPQxFFX 8CJ8vKCVltgnqFBPjOY FaGRE7EGyyiI05nGCbI GZzMTZccGFyfVxwbGFp htPCBztbbM6vPeUkq6g quMn8JDTNQmfhjHPbha wjjzE0NQCbt1lnnMmpu 6JfdVTnYF9tkDawuR2o ZnMxNiANCn0= Disclaimer (test code = f3cehMDxPZBcwXQcSrD 9844) qTGMuZEQbm6tsWMWovJ FuZzEwMzNcZnRuYmpcd BUbJRCrHaZtj6wxc593 gASxh9dkDIJvKlC4jPM hHZIgiKGbB098MHNiPG bfr3nsh8SmJMQylEZxc 6Q7UEJArufmpNf5tEpb L88zi5N0KjctI7maLGM iVBOoQ9PcPP8vTTFbCd d1CYM4SXR2SZBvRQFaN 4WiEL0zOKAmiCRbZCm4 v2srpZmlGYHbORD3g7q hYWcqgkTrSX2eux2dsU j8u4cigiAoZDJkDPLae HCQMNWqM4HhsBdhTo9r fYc7aGghYwujHHN6Cms 4AG0kfp11jgl5kJqqJT ZaaujpSjB6XBpmQIXgf nwgAAo4FPoqHYGxvNS1 LNSnbRVuZ2BmDQVuQW6 pprw8GIB4KZvtKMUoKm T2TRHkhEFlBQJyoQztZ Fjbb265UTJ2TkPePY3q A8Rlw7U1xX0bfMJvNIK taVNtMkItJICbbs8rhL OpTTkgf0GcOFT7mlR0i GYjvWKoDGFzXD10Difm s7GzSprqUNK8DVCncoS yd0Tkk7zqSwXnhvNgP0 ggA9YeOYVxUWPzAIWqU pQqkfTri9Eiw1OgwZVc nZk9x0lrXRNlGRUzcKy nf9atJMD0KJAiA3Y0rY Epe2ikDWciPPFtrKH2s fV5SWTluLQqD4FnwI2g FWXmLE6ikaj5n0roQFG 4UOgyATFyMtI7cmY0ZG BcaGVhZGVyeTcyMFxmb 704HBR5QfNdYUUgi9Uw O2FcvIvpM57tpUcdH62 aRRPqkWlcqN9loAtdbE 5cZjBcZnMyNFxxbFxwb TKubdivOHnhwmE1USey vlgmEZLlCFwoN2wxLlV uTAWpuMnmOLeot5EsUR AeKGEhJkxguvC2BLNNq 14jPDRdb5QsGIGyeT0w sXFiOCasaxFqqMN0EEs hdmUgYmVlbiBkZXZlbG 1zNSCzXA8dGYPvyyOwd h9qzpPqZUEuSFTsE5Sr cmlzdGljcyBkZXRlcm1 bxmMkZMS2ESCHOW6ZVH WjIOOqu85vNHHzdBzvu S0orPClsnHmNQCwo9Lm pC8exVEHILSuI4yoCT8 hHMncs0UfkSByzSLpxV E4VEOau5FkMgGbgyBkz QRwcMMtI4GkmRqmU7dd OYQePTRtyvYntZGwp1A eYXWhtPO2iAXmBS5BIf MDj04iEMEeZSZAcvMxY ECoaKzhsXC5ytZ1iB1u LiBJZiBhcHBsaWNhYmx vXWCtf370gz2lmyL1KC WaNDDaazvdb0TtOGWlS XHvfP86EEOrXCNook3g fnndhNWohbVlH2Jidnl 7zX0fSNMqGZuzEITyJW ZzMjJcbGFuZzEwMzNca GljaFxmMVxkYmNoXGYx BJdfB9ojYyGqFcNpFlb wYXJ9 [facility] Iidtpziukuqdhi2995-06-96 18:43:19 Test Item Value Reference Range Interpretation Comments Materials Received (test m8edcYLcCPRwbGSuUoPv code = 9973) ZFGtPJBqm9gvDPMgrKGg ZzEwMzNcZnRuYmpcdWMx HLDbVfCus2tml929gHIw y1boEGJxIaI0rCHyWZVg fQLsT060SFHlHWxkf9km q5UwWBOtnDErx6J2DEZO mcnkkFn6aImhP15kb7W8 HgupL8uzMNJeNGCgR3Zq NU3dNITnDaz5GTW9TMJ2 QJUyTRLyK8SfOL8jIRUv vFRwFOt0m5oyeZofILMt BNX9q4zxVYfmwcVzVF0s dq4ahFg6w3tvcaLqOAOv MLZohQBFUWLcA6SaxNgi Mq2kdHh4xJkaOzuySVD7 Fro7GG4ixt97lgn3tWhx MOOnlyoaEaG7MAeeQONj qussDQd7XNlfXJImsZpi MFxtYXJncjcyMFxtYXJn dVV9YIDorKGtY2GsBSMb HQjeFIEugql1IvRjKm3s nWXcpKwfOKnaq3zzk3gl bHHvEou7SPBjTqVxCjpf UTuth7Avi2seZDHwvv3z LER2bOWwdOtcw8Q6mPCm SUKgwLUuvhReCYHnwm19 lOUvcWExeSRyun8yykKo bMNzoUGdIWM2kIJhuaEa PKIcxHGsQGHrUQ2xfBId QDCvgJ2sgnqxAITeIrDn cyhuYMXxmHhxuvCmLi2v vMkrYBT9QLwpC4lvkT9s OwZ0JTfdM2vdsK6gNRe1 GBluyDW9QSSpjT1xGJ9k vxlxf1ohVcNuXL0izpoj z9jpUoGwBL2vizw9b5wg VOF1KGbwMZPuZiG2yiW9 NDBcaGVhZGVyeTcyMFxm z654DAP0TwKqYVYuj0No X7YznJjqK55ewTraU66b VZWlpJodjB2bqCbbnJ3c PeKjHkYgPBo5tx69ASm4 oimutCiqMAz5pwUlBBZh FHC8JPOmnGQuMBWiI7c0 auQbFJDcZBG4XEAwcVOn KQHmY4v2nrPwGTR1MCz5 cnBhZGRmdDNcdHJwYWRk YjBcdHJwYWRkZmIzXHRy rONxlCOsaDHehS7alJqr GTAuySOihD4pQQY0CTEh cmgzMjBcdHJoZHJcbHRy cx25SEJrcaSqhQHiiCsm tIOsXKN3GRNoVMRuRAKb HYE6MIBoLyDvwsYjZEkl bGJyZHJiXGJyZHJzXGJy BBJ4YBZmFwPotfIlLVbm bGJyZHJsXGJyZHJzXGJy VNM3FKWoSuWesdEoCTcc bGJyZHJyXGJyZHJzXGJy WPC3NAMsTyWbbpQyTOoc bHBhZHQxMFxjbHBhZGZ0 S7nflOJjCPVgMYqyfQVt OSJeU0kajTAgUMwqNCQz cGFkZmwzXGNscGFkYjBc J2skJBUqNzLoG2PngHw9 MDAwXGNsdmVydGFsdFxj tRWtNXM3SSRmXCHkBNXh XWD8AGMlQdNamzPkTUnw bGJyZHJiXGJyZHJzXGJy UOS3FUKzUoJkdnOuSNzb bGJyZHJsXGJyZHJzXGJy CDK0RKYqIeKorkWiOWmc bGJyZHJyXGJyZHJzXGJy GFA8BYWdJbHtxdZfANgl bHBhZHQxMFxjbHBhZGZ0 P8vqdLLjKUWtTLzslVTg EULoC3bgwBCoPIpdUHXv cGFkZmwzXGNscGFkYjBc I2ebFIPnJyLbS5CaiUt5 NjAwXGNsdmVydGFsdFxj fLYuXEM8OVNnPKLdVWCp ALL9FWIpIjNvekGtUUjx bGJyZHJiXGJyZHJzXGJy BMV3XSGqEvXivtYdOMbp bGJyZHJsXGJyZHJzXGJy TNZ0QENzLmCrdkLtWJeo bGJyZHJyXGJyZHJzXGJy AON7RWEsPdMpdnAuXUlr bHBhZHQxMFxjbHBhZGZ0 J4lhiJRkUZDjLXbgqMSd SLSjI6uhzNQrDWnoEEHd cGFkZmwzXGNscGFkYjBc Z9czQRSeTkUbN0FgiXq2 HdNbJTEehmDpmJ04Qlmc s5ViWDCiGRS6UTpdINal bFxwbGFpblxmMVxmczIw QRfixtkuGERhDLsxK5fz XoTfYXJtbJubJHqjo0Du XGYxXGNmMlxmczIwXGIg CQIuOGQuaY5xHrbiU8Mi xJ6mBUreNpgbD6xrHAOa t3HqgY8yLYydvARghzgl MVxmczIwXGxhbmcxMDMz ZYymU9hzLjAhFGWwdRwu ZHwxn6GnFFKkFVErDlpo vlVbRZo9jfCzDQVqyRmc qKOdJUoubuEbmWylm3Eo ugLszZybJEAsTRm2orUi tqputPq4wRFpdJsoZRJi wMkezZ5yWvChHwAiEBap bGFpblxmMVxmczIwXGxh zzkmUXXvAKerE7riFvKo ARRxuCatGKynw1KoBRXh BZYlLerrobQrNKDdH51y bGVjdGVkXHBsYWluXGYx XGZzMjBcbGFuZzEwMzNc aGljaFxmMVxkYmNoXGYx DRvxK1wvDiOjR0WsXWXg XhHgvGWzB4ukU3CsqSbe YXJkXGludGJsXHNzcGFy NBD7aWGawpMqbOLxxXDk OFNuTNdbVGN9rZPvmwxt jZSdqytvQIawfsG9FPMf YWluXGYxXGZzMjBcbGFu ZzEwMzNcaGljaFxmMVxk XhQcRWWzNFokC2cjQgOj O6JpGYSvAcWrDiIEMDKy aXZlZFxwbGFpblxmMVxm czIwXGxhbmcxMDMzXGhp A1joThSpLETxkLnhLPmp i5SsRJQcJRJwWndfhwVx WLr6pjJiKQZjdFmqyU29 Tadndf56BEVan0asKCWm H4TawOCaDDYrkDAbKHqk MDhcdHJwYWRkZmwzXHRy cGFkZHIxMDhcdHJwYWRk ZnIzXHRycGFkZHQwXHRy qCAgRDO4D2x1kcCcOQRa XEg6epXtGVPcWmXyfRFr ETT7AHp7ZkwjmsN5kCPx Q3m5NgxficPjZCtcdPGm mw60OVByoeBmtNBgtBbz cWHuMFD6VLSpZQBvZMLz ZNC5ELFkRgNehlMnQStk bGJyZHJiXGJyZHJzXGJy MNP8THLzOmGbqgGuWObo bGJyZHJsXGJyZHJzXGJy MIE7ZQJxNkAdbhJhJUtk bGJyZHJyXGJyZHJzXGJy GBJ9PNUhSbIfrrRrBEmq bHBhZHQxMFxjbHBhZGZ0 D1vjyDNsYYQyMTowoZZl RRUmU5yccZBpECwjFRDx cGFkZmwzXGNscGFkYjBc C6onLALnQwLgK3AydVc1 MDAwXGNsdmVydGFsdFxj kTOiNYL3FMMvCGIbEXKc JLZ6QQYnTcAaeoGdJTos bGJyZHJiXGJyZHJzXGJy DOI1PTHjFlChzzHpNOjg bGJyZHJsXGJyZHJzXGJy RDT2CZGsIzBdtjWbPCzx bGJyZHJyXGJyZHJzXGJy ROZ8PPTlJuUcbdZxVTuu bHBhZHQxMFxjbHBhZGZ0 T7fpwOTcYLIfAHnjbBEy HTUcR4jhfABhYMjbXKBm cGFkZmwzXGNscGFkYjBc P4mwWOStHuScS0CgzUj2 NjAwXGNsdmVydGFsdFxj xTIoFYN9WZFvOYTdHHAz VQF6KOUiWdZsjrFeITsr bGJyZHJiXGJyZHJzXGJy MWG2NKEgMaCjyiQeGFdh bGJyZHJsXGJyZHJzXGJy TPZ4LXGqOsUvauIsRNpd bGJyZHJyXGJyZHJzXGJy EVW1UIFlUiFficGmTQlk bHBhZHQxMFxjbHBhZGZ0 W6qteSSsHJYiJVkwyFOl FZNeJ2momRDvGFtvYZZo cGFkZmwzXGNscGFkYjBc G9bcMEPjWcNhN9VxpNl2 ImFrOQXllmOozE16Ujvo i5XgDHZnDAK4FYmqSDnu bFxwbGFpblxmMFxmczI0 XHBsYWluXGYxXGZzMjBc bGFuZzEwMzNcaGljaFxm DMedIrGqGSEoKYqpO0ys CsGnI9JwCSPlLsAjFX3h NxA5FTIoEKKvJHHgYFPE TegvBENYPE5DZ6YuSSSq VVNTXHBsYWluXGYxXGZz MjBcbGFuZzEwMzNcaGlj aFxmMVxkYmNoXGYxXGxv C9npOjLjZ9JmTCUoNcYj aOLdC2ufA2XuoJqcPTLj XGludGJsXHNzcGFyYWF1 gOYsxoJwgDadaYmmoJ8n ZjBcZnMyNFxwbGFpblxm MVxmczIwXGxhbmcxMDMz GTnnA4jzQrBdPTQlyVut EBjhf9IgJKTfHCCoAyzn czIwIDEyLzEwLzIwMjFc mLwinP0cLjWyIxWrDSby CS7eZLUsA2eaeQCyDBMl WQCfS4otTzUteT1nnHvy MVxjZjJcZnMyMFxsdHJj rZxcUQttSUYjmyUilD40 Lkzcg6PiYNUvQRO1AKrh MFxxbFxwbGFpblxmMFxm gzB7WGAgKHjcRIPnYWTk MjBcbGFuZzEwMzNcaGlj aFxmMVxkYmNoXGYxXGxv J4kqCpGiX5RtDFKsZkMe GV6eZC8dDJFkSQQeCAug XGYxXGZzMjBcbGFuZzEw MzNcaGljaFxmMVxkYmNo EHPqCXjqR0mdMdHoT4Zj KFNvOaVgiWQjC1qnR1Nq sClffcAspQwhc3knpLXt EOxoa6AimkQryZgyTFSn XHFsXHBsYWluXGYwXGZz MoHcoMtezT9cFdPvHyBk ZMkbGG2xSFCrP0sraEXa DANwARNzR9ihBzEtlO9m aFxmMVxmczIwXHBhcn0= Diagnosis (test code = o6mekIHcGTTseXV1FmPi 34) SQWbh4djq8JfhJFhzDLl ZKvqyBJrazTjhw79wQQ2 fF85WS9jJFIoIkL4YNZo fbZ7Ptr3LGSjTULvfNMf N930r8uly0gkerVnaWL2 KPKuBVPiZ4ZaNC1tKCHy iYJwS67jhODoEKZ6NZOr JURhzHUrDFMaPBJ5MAJl iOXsQ2taJYNvBM0tgidq DQomFZyfNAWjqVK3WQOb bVTzX0LrTYElQMasSTXs sjf9EvZgTc3iiYRntNna MFxwYXJkXHBsYWluXGZz UoBeR0YdHABdbBDreNSw lTUgbuKmuVQtyR8pjLAi t2UxHGCaVZQggSCcQjlc dVS5NMotVKdDUcA5ZPFo EMR5NDViwJdzK1Ino41h TEX8WLQeZq3nCK5iAULh YGieyDBvZLPpgtn0VOFz rTPuRGuKNvsKJQOaQ6MZ KHJVDY4CRT4ENACnS6UK RNNWOM0JNqQlKGYinokl YXJ9 Comment (test code = e6mbcBJvAQThtWH9OoGu 9835) HSVzf6xkn9TfsAVhrPNc KDiytOMhksRefd10hPA9 uZ06XC9rWZNaTfU1NRWi wzY7Dnw5BXSfOEWueRZz K615m8yni1uyfyWkqKT9 rYypQIXimaleSbR6KMqw FXGbfsarYNd6XKgmHCDf kBJ9GEUnkIVxU1HrPZRf CZ3sqsb1SDC5KUqqIYBb EtM2ODCqbBOeAMKuoYqu MDqvk847URP4CgRlEAQs njZvkBzpeL8kTdMpELNF hUBsjKmuzX8ip7blVhNo MOR2xW0ruiXgeO28WM88 bHRpcGxlIHNtYWxsIGZy UChnOS91dsVyGmDsjVFs x3IxrIGpf7OinPkix9Lt IGluZmlsdHJhdGVkIGJ5 VKTlZEG1cMOoT9BtATp7 lENiq3keKDjvSuxtvWZv nCFuO71xxO8cPBRyrRMa WA8leI2taqEvwKSqIiQs KXYvZXJxHGjpteO9dFTx IHNsaWdodCBudWNsZWFy NXjvyoMzlLudbtv6pNDr WOPvFSB1GEKeRSRpFLDp qS01qzDdKP9kYXF7nT1z jNTfyB1bLLSuz4Y6e3Db YyBjZWxscyBhbmQgZGVi suirLKDjYOGdZ0Ood8tu kmXvjZdmxa25EHDoOLYp u8YloWYowaYturMipmPo DICnu3ZpvvLozdSzaOJi AYFoERRzDB6aFMopDBRq bWUgYXJlYXMsIHRoZSBp bmZpbHRyYXRlIGhhcyBh xwRtehsgq4UctxYyeELz QMvrhQNbWhR2eM5iRcAv VGhlIGluZmlsdHJhdGlv zaFeGAP2THUcNZldTIWn ClHeY1LbfLY4hrZjoWUf QINbEHPmC3JuQYBzkElz w55zvJjjILxkgCb2SSVm n7GjrCcjRjcyVIDbnYJt EF23iHCyrSycBSxqxPNa g8zzh0NqX0ehdEmlKAzx p7IfgO1oQNStUUOvm1Vz ZWQgZWxzZXdoZXJlLCB3 DJScVBKgivWxrs3eWNNr xqU3zGNqk8RkM5ftDW1l YN8fKRRqq2ErYUGpEOOb ciByZXZpZXcuICBUaGUg cP9wgBs5bkK2nK0hGBMy yXouJCXmMRCjf8CeyPg3 VZFvo0XeT8GwUDbuW3V5 PGNgANKRMGXaBELxjI5n QXUIM2q1OMV4lQEhSLF8 FuDxhJRvaJ7ioBChevKm Tz5lSQXPVKyaPDHKSQNc LqSxQIWtolWuPS44HjZc OvCzQB8xLBCpRWQmDBxe cyBhcmUgbmVnYXRpdmUg Sl3sWMLQMTEgTGVBMcDb IENEMjMsIENEMzAsIEFM YgClREEIYETuNNB5V1wn bsTTARcsLQYDEYZnDL5t UUKvaiU9eU9hMEFxaReg LiBUaGUgcHJvbGlmZXJh lSagcyYhNYVqUZK7NKyb XMH8LJA8EMgzyR4yEIat IGFwcHJveGltYXRlbHkg NjAlLlxwYXJccGFyIFBl mnG5rSOwfRVamnkoFSLw bvWud5N7YLUxdYWyjpNh Y5PjY3QlnO1io7u0sYFg gABvoFPhsjN0iA0wSQxx erPqHKFro1FuKKWlc35s bRmgOTXbeTCgEZ1fIU0h ABPdOTVqLF8fYG3ultEh IT9vIU5TMlgfTnNYIaso NgQRElKbbbIHXJRcEZ6s pMfkpRJkvNzmleX0KQMy QFF0BEY9HME3RWOmG39q eDIjIaI1gIZxl2UaL4ye HClvpuNki4B0UHjypsIx k9UyoOBhxmxvQYPeKv7a NPOrvhqjgz9afEYsNAIc laJCbJHyqI2haS3ysQku bT2hfTKitUGuhBQbvB0q nY5uqeIfy1XiK3WjcUUw DePgazzsxG0kQ2yzd0Mf GgrsBMWsy07lFDWmjO0l XUBkZUUtTALve0Rfc7Ra LFWkvoGqiGDrsC2rZSQn EDPqz84ce5jvsEAtpMRq bs1wNNatJICak13mXvKf TKG8TBmwylA2MTGjPMVv BlZ4EX69EtcvOBThCTTt FDB6jG4asgGoMGEspuJm gWBxMLHrlQ6vUO1yIWFK ZDXkAyZ5HUXud5eiKBQ3 wZAjw4Nhv72kr7WlHiWL Oq1aZKXaNQPfETYyQH48 MRphRD9pKA0PYWYjqL7a dKTuhkVefaDtzFhux0Ha DiNuYUacvkQyrqJyh5Tb xSU3EPVsTEGmYdSuJNwn dPUuAFipPZN0UGJhWRVg rRPsFcWsAo5oUIWuk5n0 aXZpdHkuXHBhclxwYXIg CRXcq4KkiK4nMMZgYANs ZSBjbGluaWNhbCBpbmZv ub3roJvqheHdauKmoXPr qNKeaB0mtFmsYL5DZIXr GWMib72lQL5wFIlxXUhq qlXpv7EujofkbThnHKTf nMuskaUqyTLql0ZstSKx THpuCACyA7BzGiLdIOEh ZsYqf1p6sSVqIQXiGXQs ZWQgYXBwZXRpdGUsIHdl tLzqgCPoy3GeTSEhQTHg GBXjXJ3qBKWtvfC1aPLi vVvzyk3iUZVao81hifXc uR9zrzIonQqcEKE2PEv1 MNIbt13bjNBfnxKoPHZt e70iMFqxmwFqgYJeqeFu IlctZLJozmT4eZOiA4On HPezZG9wTAQlVILczQ1e BAPhHIHqSLGsdBliTB6f PQKSKAYll8BdySv2SGpf vxZvhBKdLU9kfBQwZYtv IHRoZSBjZWxpYWMgdHJ1 ucveWY4cXUTcqXHgaBOc wTHjcuX1bI7sSAYqGOWm JGAxNU28MGSxTNBoy2Mk rGA9uGWtRapkdAJ8JJJh dglor9AkXGokUOIqoZJo xmLzb4O2YlMtAWgrSPCx oEltbxGggXLhPG9kKXga f7Gseapzf4PljOmlsPpb gOHhsWQmp3TarQ2yvGre hzWcfN6bw5njXWZSRQR1 YnNlcXVlbnQgYmlvcHN5 RM8hMYAwSSRfFAW8UJKq eIBwrEUxaSRykfY7iLbe zRVeTl5vwMGpLNS9VP4P RILsBFJrl48iHL7rCPBi VQ6dQDCnUFzzMGJkccRl r0O9XXRyWmlugwGqy6ve AeM0KGkxi9njf3DkWZNq WmF9r1RbkGQsI3KdVu3t ROslIMg0pURdc09jWEsa qAedSJNwKYYugP3hpSOc GF21YWJbmLgtJMCfoA47 kk6phAYcp2K1lRRnEUBe fsteJBAtGs8cFLXfqEZa r46jjRO4ZUY3eI7sVGuk nxCgGEAdt7FlEWVzo62q ySfppjLyGG3aiSVtWSHd QZIkUA3eLCAtp04oGJJw cn0= Disclaimer (test code = b6xygXJeKHTtoKZjTjMo 9844) EMZxFQGrn0rdXPWceYFf ZzEwMzNcZnRuYmpcdWMx ZYTjWfAow0izn158kMCb b2dyHYAsMhZ3aCPwKLAo pRWtM520BASsUIhvi6ej g2UhWEXysXRvs3S9SFMS abamgEy8xZeaL59wf9E7 VmuqW3hyNZXkYMDbE9Fp VO0yUHKhVef3BCJ5XYR8 YCUdVYXwL2DcIR3bVDAw fMRhTJf4y6koqKtaVLLf HCL0q0hqAGttwmYyOW8a nn1hzUt9y7rkrhWtEKLw PZGgnMWQFOTaL1FptTvr Dh1ejXb0nYwzFojgKDH4 Giv8DW0rip77fpf2dMit MTLyipglQbV2OHwhUSPu ehflEWw4LEdmFXByePD2 ZOWgzDSqZ4VrHPWfFL4q oby8VBA8WTfwGXDiNgK8 NDBcaGVhZGVyeTcyMFxm v078BOW0JxTfEB9cJ7Uf q8H4dA9ckPSwBTXohDUb JhKiIJSgoy5aaSHdDPcp m4NgYCP8slV8uLLvpXKc LQYwDI58Qngvn2UyMpxk KMF0BPAvrrIam2Hrp9lf CkRrspPaT0urV3WdQJHp WDKiNDWgOaVnvvCdw4Df x4PirOMxgJm5t4qpHWUy LCCslEarg7mlWXV0RAZl R7K8wHYoj8chENbbLFBr jBA2zeP6EQTjtPZbL9Jb vJ9iHWUjHX3jnnm5q1fo YHO6ILyhMZNwGlE4iaA6 NDBcaGVhZGVyeTcyMFxm z408PYN9QcWdNBDhe0Ox K6ThqYywQ51hqWeeV18a ACMbiXeyrO9wwNcmwP2w ZjBcZnMyNFxxbFxwbGFp rgxbVAkpdeW7HTlooovc CZXfZMzhK3zuJwScASMy hUshBYdsc2NrTCHfYZYz WmetymL1AFAZc29mTAMw m5EyTQGmuF5srUXdQDvc qtDgzKC7VUbllyNoNjXl gtZoJFKboG5uZSSaBY9w FAGkwnWryw5yncWrRDUr LSXcM4TzjrdgbXqcftTn NTIqdu8gktYfMUQ2IBUC GF0LWOTgPCBll98iMHAe tZpkkM9fqKUskcYeUQQu s1NvkQ0huBROZWImX1wu QT0pTCmhc6LvkUTtxZMt mGA0FSBmy9NoBiHacsMt uLYkgRWsT9TosGgpB3ug KAFwPKLhvlNxoVPds5Ze EBDbzXE4dZSuAD5AJzRU g06jLDTeRQPQhpQmBXBj gHjuyRZ4izX7uO8oHrZR ZiBhcHBsaWNhYmxlLCBj g412yg0kbsX5FHVySIYz bwkit3SlJUNdFGOexR24 FJNvHPFpso6ubeqraPIr uyFlZ6Kdnbr4yC1bKSFe YWluXGYxXGZzMjJcbGFu ZzEwMzNcaGljaFxmMVxk FcHmXBUlZApnP7wqZaLx ZnMyMlxwYXJ9 MD [facility] [id number] 00:43:58 Test Item Value Reference Range Interpretation Comments Final Report (test No growth code = 8488) Path Review - Urine The results have been (test code = 8483) reviewed and electronically signed by Pathologist:MYA DRISCOLL MD #[id number] MD [facility] with [id number] 14:57:01 Test Item Value Reference Interpretation Comments Range UA WBC (test code = 15 See_Comment H [Automa valentina 7904) message] The system which generated this result transmitted reference range : 0 - 2 /HPF. The reference range was not used to interpret this result as normal/abnormal . UA RBC (test code = 14 See_Comment H [Automa valentina 7891) message] The system which generated this result transmitted reference range : 0 - 2 /HPF. The reference range was not used to interpret this result as normal/abnormal . UA Mucous (test code 2+ Not Seen-Trace A = 7887) /HPF UA Bacteria (test NOT SEEN NOT SEEN /HPF code = 7870) UA Squam Epi (test NOT SEEN None-Occasiona code = 7896) l /HPF UA Amorph Jazzy (test OCC NOT SEEN /HPF A code = 7867) GRABIEL (test code = Some reporting GRABIEL) parameters within the Urinalysis test have changed due to the implementation of new instrumentation in the [facility], allowing greater sensitivity of measurement. Urinalysis results reported by the [facility] using existing instrumentation, as well as Urinalysis testing performed manually or by backup methodology at the [facility] will remain relatively unchanged. New reporting parameters and units will now be reported for all campuses. Lab Interpretation Abnormal (test code = 59687-1) MD BlackwellUrinalysis w/Microscopic if [id number] 14:43:21 Test Item Value Reference Range Interpretation Comments UA Color (test code = 7877) Janae Straw-Yellow A UA Appear (test code = 7868) Cloudy Clear A UA Glucose (test code = 7881) NEG NEG mg/dL UA Bili (test code = 7871) NEG NEG UA Ketones (test code = 7884) 20 mg/dL NEG A UA Spec Grav (test code = 7894) 1.025 1.003-1.035 UA Blood (test code = 7872) Small NEG A UA pH (test code = 7909) 6.0 5.0-9.0 UA Protein (test code = 7890) 100 mg/dL NEG A UA Urobilinogen (test code = 7903) POS NEG A UA Nitrite (test code = 7888) NEG NEG UA Leuk Est (test code = 7886) NEG NEG Lab Interpretation (test code = Abnormal 58710-1) [facility] [id number] 04:31:58 Test Item Value Reference Range Interpretation Comments POC AB pH (test code 7.52 7.35-7.45 H The i-S TAT is an = 2744-1) analyzer used f or in vitro quantific ation of various anal ytes in whole blood. The device uses a s alberta disposable cart ridge which contains microfabricated sensors, a calibration solution, fluid ics system, and a w aste chamber. Each t est cartridge conta ins chemically sens itive biosensors on a silicon chip th at are configured to perform specifi c tests. The microfabricated sensors measure analyte concentration b y an electrochemical assay. POC AB pCO2 (test 37 See_Comment [Automate d message] code = 2018-09) The system Tellme generated this result transmit valentina reference range : 35 - 45 mmHg. The reference range was not used to interpret this result as normal/abnormal . POC AB pO2 (test 51 See_Comment A [Automated message] code = 3-7) The system [employer] generated this result transmit valentina reference range : 80 - 105 mmHg. The reference range was not used to interpret this result as normal/abnormal . POC AB TCO2 (test 31 See_Comment H [Automate d message] code = 2025-) The system [employer] generated this result transmit valentina reference range : 23 - 27 mEq/L. The reference range was not used to interpret this result as normal/abnormal . POC AB Bicarb (test 30 mmol/L 22-26 H code = 1960-4) POC AB Base Ex (test 7 mmol/L -2-3 H code = 18124-2) POC AB O2 Sat (test 89 % 95-98 L code = 2708-6) POC FiO2 (test code 28 = 38442-7) POC ABG Draw Site Rt Radial (test code = 87549-7) POC Adam Test (test Performed code = 95993-0) POC Sample Type Arterial (test code = 6690) POC Clean Dev (test Yes code = 6672) Performing Lab (test [facility] code = 24450) [facility] Cli nical [facility], [address] [place] [address] [place], [place] [address]; Marketing Planner: Dian Bedoya MD Lab Interpretation Abnormal (test code = 27215-2) MD [facility] [id number] 04:31:57 Test Item Value Reference Range Interpretation Comments POC Critical Comment See Note Test pe rformer notified (test code = 8955) Ordering Licensed Provider and /o r designee of POC AB pO2 critical Result s. MD [facility] Glucose [id number] 04:06:55 Test Item Value Reference Range Interpretation Comments POC Glucose (test 92 mg/dL 70-99 RN Notifie dCapillary code = 98079-0) blood sample s, e.g. obtained by fingerstick, ma y have inaccurate resu lts in patients with d ecreased peripheral bloo d flow. Method descript ion: All results are key sured using Electroch emistry test methodolog y. The glucose in the sample mixes with the reagents on the test str ip. The reaction produc es an electric curren t. The amount of curre nt produced is proportional to the glucose concent ration in the blood. PO Sample Type Capillary (test code = 9554) Performing Lab [facility] (test code = of Dewey LOCKETT And lara [address]) Clinical Lab, [address] [place] [address] [phone]; Marketing Planner: Dian Bedoya MD MD [facility] Culture w/ Gram [id number] 03:31:55 Test Item Value Reference Range Interpretation Comments Final Report (test No growth code = 8488) Path Review (test Culture yield may be code = 8492) affected by sample quality, prior treatment, and transportation conditions....The results have been reviewed and electronically signed by Pathologist:Bryan Alvarado MD, PhD #[id number] Gram Stain Report No WBC's seen.No organisms (test code = seen. 53670-7) MD [facility] Specimen Collection -[id number] 17:08:53 Test Item Value Reference Range Interpretation Comments Yasmaniruthie Ap Link (test Collect ion date/time code = 87123) has been modif ied to: 11:06:00. Prev ious collection date/time: 01/17 11:06:00.Megha montgomery from [id number] [NA] on 03/08/21 11: 08:53 DIRECTOR TRIAL by Taras Tariq. Cytogenetics (Received) Yes Lamin ection date/time (test code = 8304) has been modified to: 11:06:00. Prev ious collection date/time: 01/17 11:06:00.Correc valentina from Yes [NA] o n 03/08/21 11:08: 53 DIRECTOR TRIAL by Taras Tariq MDCytology Image-Guided FNA [id number] 15:47:50 Test Item Value Reference Range Interpretation Comments Gross Description (test d4chdZNoKWCpzPM1OnEwFA code = 0008984631) Xiv0bnm8TtiAUntTDeHNni hYAtpaUzkh15iEF5wB72CC 4aXBFwRtF7KUDiajN9Hqp6 ACQfSBDtwQKrY912i2uoc8 dfasUdtBI2XNLuBKFmI5Ja XL1iPZYklWFdB39mwNKlHD R6URVnWCAmbEDrDCQzZLG7 NCEyqWMuV5mxOSThBM7nkj mrYPhaQMchIUPqvWU1AGNs zXGrB4PpLGBiRJjxNERbzh k3OpHiEq7xiGKbiNsdNAit ZNBzc6sqAZEmnLGhHBG3HE hlpBXzKIGtWUZqGVn7CMRo MHqhbDXoZN5enXptZslkmV guc8EmeGUjTHqnFKEgTIMj INlzRPIvY7ZCONLeEhKhIC GzKmCyWPz6DWasM3HCWNIp XTW6ZWp2QCX1RuU3ZPx0OL YVVz4vRVS5QpDtGyA1ECQ8 QXP0VClntROpGZtkEanpZB xmIEFyaWFsIFxcZnMgMTAg JOptIpThFE7jaQxcrCArdf xiXGZzMjAgQTpccGFyXGIw YQPvCDNLsOVlnX9qqoFkgG UwN6YkHIC5VDElreMaCGCv ZmYgUXVpazsgMiBQYXAgU3 KeoB5yX7xxOXLkIUGzhpZi JKSlfFfuRBFcj0QaY7B7XM GnVTibm3nvYHOuKPuoc1Ov DBsXCQOQXL7LFB2irWL9ZU eDUMIJD6vIzWB2NvJokFB9 ZD57DHDyVCKmlPYpCOefB8 78l0ypX1y9gXbuJ5eqoXF8 YRovmv28SGF9RPohAwmljM O2MNkvCrykqF9nyQSNOZJL OdqDRoefzlAzPW6OOGcKVn ORPT52Xj32LDFiNXQvbIPi SLavD264Svvyf0O7j8zlhW UpUZliCjicdMFdwwX1WYzB JJDEMVlEPnFhQR0uKIqNVF SRFuN5Tv15FFItJUMgiWRa ABybO060ZVFqVTecNZSfi8 HvW6QwIrBxNXowMjOhQVQj zXyzo4tvfQYnDQkdBynjbQ VdfzF5CLiTGIKWDLaEIaKs FO4aIXpGD2NYFgP6FwU0Zu Z2XBifjZbwDqiezvPvjJWo HcJjuJ7krGrozC4fSlBgXN xjZjEgIGluIFJQTUlccGFy XDYlQvePP3ibYECkAOHJKJ auBLQxp3FvDFJgdgPWLIXi V8LogCCxXQgsA9JfJRqkHZ Ktug1jyMvhJjQfgKMuhHPs nQwkHxpqcJC3DWpnWjlklI 5zdCBIWVBFUkxJTksgbmFt DS7DKK7AAgOXNL12OXTfZc D4L9hVX0QOZZXCBLM1TGg9 mQY3uI04AXLfNKIsuNRqAQ wpO458CAFpEYTeShE7TXLy AYzmq6suWCAaJMler5InLN cDCSUCAM1DCZ4tgXX6HRxR F6UVMBa4ZOL2SzyhaIENGX NNZPXKZXyzuUf6NSg3lIkb VjaendWepLAiPdYioT4rfC dboL8rGbKmOCjsHpKrZVRg GEP1EMKohrjkXXDrT2h2EX egNh26ZOOqZXwsLnLzvoNz dHJvcGVyaXRvbmVhbFx+bH tppQpext8lIS58REUsbHEs HSY6RL5gcLfhWLEkQ8QcJ3 GjmhX4RZNfnwk7XIBOTSIS KBkLDP1YZAVKUMIJOY3FPT mWFoUjODH1NIymNRw6YtSi N64QCdMUHYYVP52UBZTJQM VCP9YCJADGOWrRR4KTCO5V GAIAAZOYWH8JCDpFSwIxSV odoE0iNTyLHRjIZ5DYDD1Y FKFLHPBUYS0NMcPqGTgNJ5 XWP6fDEIRoAYYXDHNXZKGg GzQUTF2pCIg6Wmi2rVK6Br R0AcQesIPCAGLUXTiXFCHY Bg9WVYLVVYHYVT6ZVmVbR3 OREO7XHo3QAONJNPLKOO2I STnXWgHqO4SNXL7ZDf1TEB GPWEBJPY9GIzMpPDWNS5QA DyWTX5cbYVHYHIOVIOAoPb WGCY2aDMVUDF0ISNLPFIVU O96HPLWBUVCLA6ATLS9= Major Classification Nondiagnostic (test code = 9839) Diagnosis (test code = i9ikkWRbITAhhBA6AiJzQB 34) Hpr6ztm6HhcRWsjPEfGMef eBIoagIcwp96gUX6kS19HA 7cEOKqAtA0JLMfxeS1Auc8 WEWlCYXwkRRrQ914m9sbs5 kulpWuiOT4VTDeTSWwP2Ht LE1tLHXgaTCkW32pqGXgXK K5JJEbCFHfhPDyEDTvOQE2 AMAfnWFeU2jzCFDtHT9ymg joIDynYHzbPGCdlFP5LWYl qUTfT1MkTXBcVZeyVSIscy a0DxCbCo2drRDwmKtsLGaw C4kdzI7fBsO9KLicU2firF 1hOVx0VJxfCOPswJS1odA0 IGNgxWExI9GdwH0oXHQxSY 9stjb1x5atEOV7AEucVSDy UpA2onB8OPJbxDNuFHnpwR FpblxmczIwXGNmMSBBLiBS PINse8Srnbk2k47vsU9aBS xlZnQsIGZpbmUgbmVlZGxl EBRixPjpCQPwr247DIeuFE JcdGFiXHBhclxsaTcyMCBO v23uWOpdL85rt6LqRqLunO HxbC5syweiKYOxYgWpKSNj KYvojoWjLRVnTPFbsK4prN 5eYLVeWUurzzEqa8OzDGXx oK2hkmCoRAjnEGTboGOiuU == Comment (test code = g6clmRQmRFUonBW3CzSnNN 9835) Ahm1akw1LwwULatIGzKGfh uNFiysNumv74zOW5dN33AD 5lFCSnBdM4DAJaehH7Qlm4 HYPrJNIzkYVyA975c7iom1 oedrHbrCK3NSTrBQMiE2Zs NN6aVKCcoWNyX20ntYYkIA E9LRVeCYNjvENdABLpKMY5 KIGihERgP7inNGClNO1wwq vhTKdyJRlqGORwyLN8NTZq cPUqR9FwBVXgWBegOPKwez m6ZaPhRy5vdVYofFzkEArl YXJkXHBsYWluXGZzMjBcY2 YlZYScq7teE9z3q51ohXP9 MHQjYAk1y7oaJLiLGe9yVu 3mPGG4CZTkBMNgt4cmKTSh X5Ato4qugzAhPSMtQ0JmmW QjRObig1XeYbhlpWQrgQTw p1OjH1awagEvjXN5BIRqJE x2i7vhHiDIdZNuy7Fml4Pp AVSbRAVso66tqVHjKN18hT zjSUDbfSatJELfC21oCZNg QGTczMEdDcwbwPV9YVkWQz EwCDXhFcQ8WEIdi2XsZTPo YDZxufd6kABvTZGiVVmxk9 Zymf9zMZYihfugXDBmA6Fa EYAgoRwgApeaT4adv2KtmN valkIlwvCrr345hucovQTl vuwibQ5slQwkMBXiIEfyq4 Lnxi7dUWRgcrskNKI1 Retained/Biomarker c9bqkAZmADUeoKS6TfRwYG Testing (test code = Zbm8ksw5JhiDYmmNBhNXte 9803) lDFfsjIlkw77gVK3wW94QZ 2rBSVyZcU3RCPbenB2Geh3 CGIyFFBugXLmI821v6qtj9 wxwtXchMW0pSiaXRKuwbwv EyL2QDkwTTCvhxcrCSl9JV tmBJNsoHB5EQBedRWbJ3Qe UAXmIQ1eknw8NSK4RThnFO KkStC2FKMgiQQiLKAxbSqj MOooe283ARQ7SkDhZQCzwd XrfWuhoP5oNmYoRZNVFnxv NCBTLCAxIENCXHBhcn0= Informational Points p9uidJZiTPJsrHCzZjSqKI (test code = 9836) IcGYYjx7veYVYcnMEmCwRr MzNcZnRuYmpcdWMxXGRlZm Hja0tfh837eQQen6tqOEWy OoY1gXEoSBNmdDVjU843AM JeGThcl9wtm4XhTJZjtAXm s8O2PVIRDPtoJWGXOLg8h8 feVyWkCcG5zKRlPGhtO1jt pfWspWVjHGPmBEc5pP37RX EbyR9xzMWkUNceqySyVsE7 AZylJWWmTuD1QNYwxQEuLF QeF0ngGSXjMHsvCIRaCPbt lWYwIXR7gEpit9K4sYDddC JfxLbkZmLsScIyNsZXq4Au UZc0wSluM0CfOVWuWyI0eC QgUGFyYWdyYXBoIEZvbnQ7 pY35VNeusjY4xPCkr0Dys9 9vc767sL6daRQiQSO4TRIr GYWreSIzJTWkNKK6VMAfvU QjG6gwYHXlRV8remxxCRlc OTwrDHUeiCL7OVGnjCRqS7 GqMKBvWHgeUCYjalo1WzCh Zj5lhWSpjRwiKCbxl7egt7 tluJWaMuk4KCLoPoJnFhkq TUuyg7Jkp9lsMNPsxg7nOE X2yWBniIffo1F2nWBfZBBw aGAgzkHvCUZcUlE6GSznAI 9xhq66HYUoRUQ6ru3myXAh nPbipxEfbEClWZfbG7VvYR Bto447DBOhI5DcXQLyr3K1 sgTpIhVeIFDedKK1jwZ5WN MkIKq3gEPwuqR2itEthMTl A7zppN7gCGRuXA4nvmkmr2 nbKVjjRNzrHTNmoWI3epJ1 WXVjiSHaL3YbuP5tTNRfOL flCCXhrek2EtLlQs7dtKKr eTcyMFxzYmtwYWdlXHBnbm NvbnRccGduZGVjXHBsYWlu XHBsYWluXGYwXGZzMjRccW dvfAvjgF4mGhEuCvUuAMbw AN2gAOIxR0nsdBCgINHtDH ZrQ5bhRsHdqM9bbCvmFChm pwZ2LGfgC59lDFZ5OZK3gb YmBBExtoPwNULmJOZzNX9o oFSeCHMkOFUbNF0zUTQ0SJ nqwQLzOARlJIBdPDBtc0Lg ON0hUEUghVKdKFY3ZBRsg1 LiV8LaGAT0GSSfzI9dWBPt eSBVVCBNRCBBbmRlcnNvbi DSQDXmp3dzL2dpLO9kUEpx Ef3cSITutefiWKYvbSQdvr ItZIHfVHMmAVVev2UzNUvj tjVpql78IYKmZF5fw3AkJ5 nnlYGnhBt9JYVcFHQlQTGi i4TyDGYrgf48TYQyTwucnV gjPJUdTf6lEb5eVIDmvzEn CDJ6QoLYUV1jkzsmwWSlwE cjgd0wNARkYHawEEXoPSQp MjJcbGFuZzEwMzNcaGljaF mvYvadKyKzLWBqQWpcM2ht ZjJcZnMyMlxwYXJ9 MD [id number] 20:52:01 Test Item Value Reference Range Interpretation Comments Final Report (test No growth code = 8488) Path Review - Immunity and antibiotic Bottle/Isolator use may render culture (test code = 8499) negative. Ongoing infection requires repeat culture. The results have been reviewed and electronically signed by Pathologist:Wenceslao Lee MD, PhD #[id number] GRABIEL (test code = Quantitative blood culture GRABIEL) Isolator tube is QNS for testing. Refer to qualitative blood culture for test results. MD Zunigaingitis-Encephalitis Multiplex Panel Path [id number] 20:47:05[facility] Path ReviewReviewed and Electronically signed by Pathologist:Wenceslao Lee MD, PhD #[id number] Comment: Assay is a multiplex PCR assay to aid in the diagnosis of meningitis / encephalitis. Results should be used in conjunction with other clinical and laboratory data and not as the sole basis for clinical decisions. Assay should not be used for monitoring response to therapy. WENCESLAO LEE MD, PhD - [id number] by: WENCESLAO LEE MD, PhD - [id number] Date/Time: 03.06.2021 14:47 PM DIRECTOR TRIAL Transcribed Date/Time: 03.06.2021 14:47 PM CSTElectronically Signed By: WENCESLAO LEE MD, PhD - [id number] on 03.06.2021 14:47 PM [facility] Interpretation 2021-03-04 22:56:50 Test Item Value Reference Range Interpretation Comments Gross Description (test i9jtuCZtYBDhwKFXAO code = [id number]) cwMFxhbnNpXHNwbHRw O0OudhqfNBtmXU5cGZ 0giCackNZkhOFvNA5J XGRlZmYxXHBhcGVydz EyMjQwXHBhcGVyaDE1 LJAzVT2vsjazQBpaND afAUWvqxI0SZNwrSOp Z4DlLDGbPS0vrmjbFS A7SXekgG1qpuKPBjck Ti8mzJYzsAjlTvClOv NoYXJzZXQwXGZuaWwg TUOvHZw6yI6VWoecI8 7xd0J8Fnb3QHEgTPTg B3RvVW5fFLArzHAsC8 5HAmlfWMI0NMVISkyh EYYhYE5Jp7voCFAheW SaMXX6UEtxcAGzOWUy NBWjGLz2AJNcLByfdC KvPN5ucTnpTaceiIwn b4QeiFQbNDffGYTrMY PzKVfcORCtBT9VZeIt NYVrSdBrJYKbJHp6DH e2XP5ZMvAfRJBvCYe7 ZTR9SEZaSDd7DBtdDM 0TVLfmUTcoWdz0ZKB5 NTQxNSBcXHQgMiBcXG YgQXJpYWwgXFxmcyAx MCBcXGZiIFxcZmwgXF kmM99uwBtzwX1nMnhp naQbDSS5TNVqvbZSTg xwbGFpblxlcGljTmVz dERvYzEgDQpcbHRycG FyXGxpbjBccmluMCAN ClxsdHJjaFxjZjFcZn MyMCAxIERpZmYgUXVp hospMCLHBNLgW4OdfY 5uS2mqISCoQQHwfcVI JaQmbZsvMClmjy21ED X0e3ronYMuLBgvWgil mTHzwdI3ACtPTYYLCG kQNwGhPQ4kMLsQB1LW DLlQPdfhJCJ1WAqphS X0m9dbsMCni8f3OMym HFG8bMYjGRQcENglhx 82MTF2CFhcJatqcAU0 IPtsExyksJ2rdYZRJG OBNbwVEfplnkIiDK8C GKsRLxCDRJ05Db57ZL ZdQNVchUMzQNczW952 A93tm7VdRJOqz9ajxZ VsZHtcKlxmbGRpbnN0 IEhZUEVSTElOSyBuYW 3mXTjZYYTQCxO7Kp93 XGZsZHJzbHQgXCcxQ3 14HFHpBXvaCAa4vuYc RGQwx1WbX0OzP0VpHA ZtPsQoQKPkzFkul6yk aWVsZHtcKlxmbGRpbn P6DDnIAVKTGBzLSrVe QD6dFVrPE9XXYgC5Ov R6BcG9PQwbuVenJler ynJhlKHxIzONqS8bfC thxH8brRInR9zmQ3Cw XXCbZwFfyDSmDL3UFQ Dzk9EdT9K5WCHpIMdh l6bfZVOxYAfty6WmPJ dWDSLWDX2WUV4anNG2 UXsINEPGH3qMqKG7Xp WpiOL7Q033EOKfSLSc hPKyKCtjA517S7KlB4 mqOD8xA79wI2ZzhLFf sGIuWCJ1WPR5kI5tTS 35lfjbnFggeChissN5 EVFyjebqkTI6UAVkLH jvb1wrMKOuAWnxa4Hy OWhEXPOHKL8HBO1lrA O5USwWYTBEDHrtILB8 EWyjcTS7s0tksHFta4 i9XDkdXBY9dCijdIHi blxsdHJjaFxjZjFcZn GnKKDDIyn1KGRXOLTY UIlGLL1KZGAGGPCMWD 8QVIkIPiHmEBA2NYth OSW7UlMfZbF0HuC3Zc 4tQEFCMWGRXZaLIK5A CDUHNLNSVZ4XAbEpR2 lMRENBUkRfTUVUQURB AAKyUbNHZB4yZlh1K4 5tw9IhKICfZ8lXTHUZ UkRfTUVUQURBVEFfRU 2FNTRSQNCKZU5LPEER N61LHGQEJRYAP7DXI6 aYPDCaf6JgqCxmEhJ4 RxNoKA5dOGgUl91iND 66pkT8jG8bZMElD0lh wCV1OVmqKZN5WMl5BQ WEEVFQQP4GGOFBR57T EKISQHLYG7PXIFSXDl SJNWHLD82CORIQTFTX I8EBB0rMHINOJpJJSM TXX53IGTWMLVDGF7VT RCBBVVRPUkVGUkVTSF 4HDKQCCYOOVN7JNMrU WqZvOGBKO8ZNSmKHY3 plMIHNTOZJOGFiKY0K IEztINLxS40tr9YDr0 GfURWbw5vkmQepi9Jb dGVuZFxwYXJccGFyZF jtaP8mBgJnc0smmHg0 IRtmzeE7BVCgbg0bwC oigB8zZWoci0dyAPS9 XHNsbXVsdDAgDQpccG jozO0eGwNgMoi4TFjx XLLdL8NrE0MtpqP3DZ BsYWluXGZzMTYgDQp9 Major Classification (test NFMC/benign code = 9839) Diagnosis (test code = 34) q6gryFAzPBJfnAV0Mz ShRCTcj2ior3OyyAPn cGFyXGpleHBhbmRcbm 84qAD1yC91OS9oZXGp CxC4KUZhabZ4Yxi6XM RuJWChxXVuK879q8ai i4wvnpRvzAM7IEJqEP EqU3FvLW5jLSSsiIBg D68yhIZrFJC2KPMdIF FjtVTnKFFnKGR4FIVj eFMgV1spEVXlAX0pkj dyMTgwMFxtYXJndDE0 SHLrdCXtI3SfSLCsUM caZEMxglb9GrAjOk5b xTJjnJxrSHhfF0rfgR 4jEyR9KZjtC5afxM5n NYf4FFqqVERjjRV8qc Q4MSEynVOeV9IabH5g SKMrNU2fwzp3k7jyKK U4NFuvARPtUlA5jlS8 NDBccGFyZFxwbGFpbl xmczIwIEEuIENlcmVi uv5aiGhyMLhvAgs4nS ByBKn7mDGoasEttD6j dHVyZTpccGFyXHBhcl c8LXVfCo8mgVWchUyc UN63NBTqcLpsJUhnOX 50aWZpZWRccGFyXHBh euVvF4UxGQZsbq4= Retained/Biomarker Testing o4egpMXwKKUicBI1Gq (test code = 9838) UoVXJbk2zlw2IywRPk cGFyXGpleHBhbmRcbm 86vIP0dB68WM8yIBOh OpE5LJJsuiC6Ybp7RN EpMZSvcXTuD864z7za d1paruXpoKS4tWniVG UftclsOmK4MNqwMRFt vzavBEk2GTbnBNAmiS R6IZOcfQPtE3OrSAYj AN0pbqr6CDZ0FAmhIE VuSnH1OGUlnCZnDFFo mRleIZywi478IDA2Hc LvDUUgitIdhSptbR7i ZnMyMCBTUjogMiBTXH Bhcn0= Informational Points (test m9tzgWVgCNSmsMKrWn code = 9836) GcTLZhBYWlw6rlUYGo bGFuZzEwMzNcZnRuYm cpoZPcIRNbFdBdi1vo t579iUJyc5lhHSBsIq V2uVSeWCKmqQLmA304 KFRdWWvvr3xyt0WtNY EjgSXlm4G6FGYLNWnu WCMAFOd1c9zqKbAzMd N0yZEnYIbrK7hdqwNz lHDkRLOjMRw2oR08PC SqyO4syGBiEJywszAg LlX0DHlkBXJhDdT7JJ XjvGWoSTReN2upQFSr XGdyZWVuMFxibHVlMC C9qXbpr8E8bZUukRCp dHtcZjBcZnMyMiBOb3 ErMSj5eDbzZ1TgHHAa FpB7uTBbQWCpURqoBH ThTFEsheE0sU36ROqw lfK0qADck2Fys37jv4 17oQ4poDHhSSS5LTPq ESSphDCwQUHqRBM8GK LjzWVoC8oqYYSgZV7y cmdyMTgwMFxtYXJndD U6TMAhoELaM0ZiGDGx EZcrJOZteuj7UyFxMa 1zdHKjvEygRCemb9ue j6avsKWpXkb6QIAlNs JlKtbsFWbrf5Pen7vr QBPmma4mSWW4fVNwyJ wsl3P6tPBjWVZbiHOo erFeOWOgLhX1ANroFI 3wtz54JXLsTDW0ad2l bGNccGdicmRyaGVhZF ioX4UzMQHre797PLZb X5FrRXAgg4Q3qlHpPt CcYTWqiXH5tvQ6RYQo OWu1tKHbkbY1fdGlmP KtH7hsoL6wWUBeBP0u frfau2xkDPcdDEtsNM RgaAR0hlZ8VYWtoNAc P8ExfM6aEEQxKEatSF Qvfmi9VxAbNb8xxZIt eTcyMFxzYmtwYWdlXH BnbmNvbnRccGduZGVj XHBsYWluXHBsYWluXG YwXGZzMjRccWxccGxh xU5gWxMhFdLbXNsxEX 4hMUMiW9frbQYtHZPi ZYRzK0cdItRpmJ9diO fcVIdycyW1HKoaF33p SGI4BHP1wzPaRUVcim XnMVQoPNWrBK6nzTJp KRRuHVJiDH5fVAT4VQ xvcGVkIGFuZCBwZXJm r9TfBH8lKOUjyEOwWT I2JUGea9ZqW0HpZOO9 YLEsrP5fWOCfnWJNHY BNRCBBbmRlcnNvbiBQ KUNnx4prL7wsRL2wUL kxYe1wRSSleudtCTBk aWNpbmUuIFRoZXNlIH Atp2CeUHrucnKbnl37 OUCoZN9ln2BcE3qkxJ GdrAu8CDDmRZCfKTBm k3TxYVCeyv62TYLyHv dskNpcGEIuVu8oMk2l JPVqfhCyWJU1OtCFBA 7wautluQAxpOsbik3d XHBsYWluXGYyXGZzMj JcbGFuZzEwMzNcaGlj aFxmMlxkYmNoXGYyXG xqQ3gfXnJsUbAlLxdt YXJ9 MD [facility] [id number] 18:54:25 Test Item Value Reference Interpretation Comments Range Tumor Nec 7.5 pg/mL See_Comment H INTERPRETIVE IN FORMATION: Rfd-Gxi-Fnhm (test Cytokines Results are used to code = 7669) understand the pathophysiology ofimmune, infectious, or inflammatory disorders, or m ay beused for research purpos es.This test was developed a nd its performance characteristics determined by [facility] Jeni rhina. It has not been cleare d orapproved by the [place] Food and Drug Administration. This testwas performed in a CLIA certified labor atory and isintended for clinical purposes.Perfor med By: [address] [id number] Director: Zamzam Melissa MD [Automated mess age] The system which ge nerated this result transmit valentina reference range: <=7.2. T he reference range was not u sed to interpret this result as normal/abnormal . Interleuk 2-Shaw <2.1 See_Comment [Automated message] The (test code = 6043) system [employer] generated this result transmit valentina reference range: <=2.1 pg /mL. The reference range was not used to interpret th is result as normal/abnormal . Interleukin 2 980.5 pg/mL 175.3-858.2 H Rcpt-Shaw (test code = 6048) Interleukin <1.9 See_Comment [Automated mes celestina] The 12-Shaw (test code system [facility] generated this = 6046) result transmit valentina reference range: <=1.9 pg /mL. The reference range was not used to interpret th is result as normal/abnormal . Interferon <4.2 See_Comment [Automated mes celestina] The gamma-Shaw (test system [facility] h generated this code = 6042) result transmit valentina reference range: <=4.2 pg /mL. The reference range was not used to interpret th is result as normal/abnormal . Interleukin 4-Shaw <2.2 See_Comment [Automat ed message] The (test code = 6050) system Tellme generated this result transmit valentina reference range: <=2.2 pg /mL. The reference range was not used to interpret th is result as normal/abnormal . Interleukin 5-Shaw <2.1 See_Comment [Automat ed message] The (test code = 6051) system Tellme generated this result transmit valentina reference range: <=2.1 pg /mL. The reference range was not used to interpret th is result as normal/abnormal . Interleukin 24.4 pg/mL See_Comment H [Automated mes celestina] The 10-Macon (test code system ich generated this = 6045) result transmit valentina reference range: <=2.8. T he reference range was not u sed to interpret this result as normal/abnormal . Interleukin 2 pg/mL See_Comment [Automated mes celestina] The 13-Macon (test code system ich generated this = 6047) result transmit valentina reference range: <=2.3. T he reference range was not u sed to interpret this result as normal/abnormal . Interleukin <1.4 See_Comment [Automated mes celestina] The 17-Macon (test code system ich generated this = 9390) result transmit valentina reference range: <=1.4 pg /mL. The reference range was not used to interpret th is result as normal/abnormal . Interleukin 1 <6.5 See_Comment [Automated me ssage] The beta-Macon (test system which generated this code = 6044) result transmit valentina reference range: <=6.7 pg /mL. The reference range was not used to interpret th is result as normal/abnormal . Interleukin 6-Macon 28.6 pg/mL See_Comment H [Automat ed message] The (test code = 6052) system Tellme generated this result transmit valentina reference range: <=2.0. T he reference range was not u sed to interpret this result as normal/abnormal . Interleukin 8-Macon <3.0 See_Comment Test Per formed by:DILIP (test code = 6053) [address] [place] [address] [Automated mess age] The system which ge nerated this result transmit valentina reference range: <=3.0 pg /mL. The reference range was not used to interpret th is result as normal/abnormal . Lab Interpretation Abnormal (test code = 75063-2) MD BlackwellFlow Cytometry Specimen Collection -[id number] 16:44:12 Test Item Value Reference Range Interpretation Comments Flow Cytometry Yes Test performe d by:The (Received) (test code [facility] = 8319) Rishi Cancer HolmdelFlow Cyto metry [id number] [place] [address] Imani Ap Link (test [id number] code = 63329) MD AndersonCryptococcal Ag Path [id number] 16:23:24Crypto Ag PRReviewed and Electronically signed by Pathologist:Wenceslao Lee MD, PhD #[id number] Comment: Reference Range: NEGATIVE The Cryptococcal Antigen Lateral Flow Assay is a dipstick sandwich immunographic assay. Positive results will be titered. WENCESLAO LEE MD, PhD - [id number] by: WENCESLAO LEE MD, PhD - [id number] Date/Time: 03.04.2021 10:23 AM DIRECTOR TRIAL Transcribed Date/Time: 03.04.2021 10:23 AM CSTElectronically Signed By: WENCESLAO LEE MD, PhD - [id number] on 03.04.2021 10:23 AM [facility] w/[id number] 14:54:28 Test Item Value Reference Range Interpretation Comments Final Report (test Culture ongoing. code = 8488) Pathreview issued too early. Patient credited. Path Review - AFB Partial antibiotic (test code = 8477) treatment can render AFB culture negative. AFB culture has sensitivity of 90%. The results have been reviewed and electronically signed by Pathologist:Wenceslao Lee MD, PhD #[id number] GRABIEL (test code = Cultures are held 8 weeks GRABIEL) before finalization. MD BlackwellCell Count w/ Diff Cerebrospinal [id number] 03:10:32 Test Item Value Reference Range Interpretation Comments Type CSF (test code = Tap When r eviewing the 89123-3) cell count and differential re sults, clinicians hermilo aleman consider the le ngth of time between spinal fluid collection and testing and the clinical condit ion of the patient. Appear CSF (test code = CLEAR CLEAR When reviewing the 87044-8) cell count and differential re sults, clinicians hermilo aleman consider the le ngth of time between spinal fluid collection and testing and the clinical condit ion of the patient. Color CSF (test code = Colorless Colorless When reviewing the 77443-9) cell count and differential re sults, clinicians hremilo aleman consider the le ngth of time between spinal fluid collection and testing and the clinical condit ion of the patient. WBC CSF (test code = 0 See_Comment When re viewing the 806-0) cell count and differential re sults, clinicians hermilo aleman consider the le ngth of time between spinal fluid collection and testing and the clinical condit ion of the patient. [Automated mess age] The system Narvii h generated this result transmitted ref erence range: 0 - 5 /m cL. The reference r sheryl was not used to interpret this result as normal/abnor mal. RBC CSF (test code = 0 See_Comment When re viewing the 792-2) cell count and differential re sults, clinicians hermilo aleman consider the le ngth of time between spinal fluid collection and testing and the clinical condit ion of the patient. [Automated mess age] The system Klocwork generated this result transmitted ref erence range: 0 - 0 /m cL. The reference r sheryl was not used to interpret this result as normal/abnor mal. Tot Cells CSF (test 4 When rev iewing the code = 94156-6) cell count a nd differential re sults, clinicians hermilo aleman consider the le ngth of time between spinal fluid collection and testing and the clinical condit ion of the patient. Neut CSF (test code = 0 % 0-5 When r eviewing the 08097-9) cell count and differential re sults, clinicians hermilo aleman consider the le ngth of time between spinal fluid collection and testing and the clinical condit ion of the patient. Lymph CSF (test code = 50 % 28-96 When reviewing the 00996-0) cell count and differential re sults, clinicians hermilo aleman consider the le ngth of time between spinal fluid collection and testing and the clinical condit ion of the patient. Histiocyte CSF (test 50 % 16-56 When re viewing the code = 23510-9) cell count a nd differential re sults, clinicians hermilo aleman consider the le ngth of time between spinal fluid collection and testing and the clinical condit ion of the patient. Microorganisms CSF None Seen None Seen When revi poole the (test code = 9393) cell coun t and differential re sults, clinicians hermilo aleman consider the le ngth of time between spinal fluid collection and testing and the clinical condit ion of the patient. MD BlackwellMeningitis-Encephalitis [id number] 22:29:31 Test Item Value Reference Range Interpretation Comments Menin/Enceph Panel CSF Lumbar Assay is Source (test code = [facility]-sheila red 9391) for spinal fluid obtained via lumbar puncture. Escherichia coli K1 Not Detected Not Detected (test code = 9144) Haemophilus influenzae Not Detected Not Detected (test code = 9145) Listeria monocytogenes Not Detected Not Detected (test code = 9146) Neisseria meningitidis Not Detected Not Detected (test code = 9147) Streptococcus Not Detected Not Detected agalactiae (test code = 9148) Streptococcus Not Detected Not Detected pneumoniae (test code = 9149) Cytomegalovirus (test Not Detected Not Detected code = 9150) Enterovirus (test code Not Detected Not Detected = 9151) Herpes simplex Virus 1 Not Detected Not Detected (test code = 9153) Herpes simplex Virus 2 Not Detected Not Detected (test code = 9154) Human Herpesvirus 6 Not Detected Not Detected (test code = 9155) Human Parechovirus Not Detected Not Detected (test code = 9156) Varicella zoster Virus Not Detected Not Detected (test code = 9157) Cryptococcus Refer to separate neoformans/geo (test Cryptococcal code = 9158) Antigen Assay. MD BlackwellCryptococcal [id number] 21:26:30 Test Item Value Reference Range Interpretation Comments Cryptococcal Antigen Screen (test Negative Negative code = 51087-1) MD BlackwellProtein [id number] 21:14:18 Test Item Value Reference Range Interpretation Comments Protein CSF (test 36 mg/dL 15-45 code = 6894) Type CSF (test code Other When rev iewing the cell = 7672) count and diffe rential results, clinic ians should consider the length of time between spinal fluid co llection and testing and the clinical condit ion of the patient. MD BlackwellGlucose [id number] 21:14:17 Test Item Value Reference Range Interpretation Comments Glucose CSF (test 59 mg/dL 40-70 code = 5697) Type CSF (test code Other When rev iewing the cell = 7672) count and diffe rential results, clinic ians should consider the length of time between spinal fluid co llection and testing and the clinical condit ion of the patient. MD BlackwellHIV-1 DNA and RNA Qual [id number] 13:26:31 Test Item Value Reference Range Interpretation Comments HIV-1 Undetected Undetected Repeat testing in 1 to 2 months DNA/RNA is recommended [facility]-1 infect ion. (test code ----ADDITIONAL = 83201-6) INFORMATION---- Th is test was per formed using the [employer] RealTime HIV-1Qualitative assay ([employer] [place]) .This test was developed and i ts performance characteristics determined by [facility] in a manner consistent with CLIArequirement s. This test has not been cleare d or approved bythe U.S. Food and Drug Administration. Test Performed by:[facility] [address] [place], [place] [address]Nrx Direct or: Jaycob Izaguirre M.D. Ph. D.; CLIA# [id number] MD BlackwellPiebhyrntGWA4905-08-54 11:25:38 Test Item Value Reference Range Interpretation Comments aPTT (test code = 6773) 37.3 See_Comment H [Au tomated message] The system Klocwork generated this result transmitted ref erence range: 24.7 - 3 6.8 second(s). The reference range was not used to int erpret this result as normal/abnormal . Lab Interpretation (test Abnormal code = 07151-4) MD BlackwellProthrombin Time with [id number] 11:25:37 Test Item Value Reference Range Interpretation Comments PT (test code = 6746) 16.2 See_Comment H [Auto mated message] The system Klocwork generated this result transmitted ref erence range: 11.5 - 1 3.9 second(s). The reference range was not used to int erpret this result as normal/abnormal . INR (test code = 5973) 1.39 0.90-1.10 H Lab Interpretation (test Abnormal code = 38353-5) MD BlackwellCMV Ab IgG+IgM Path [id number] 15:10:36CMV Panel PRPositive IgG with low IgM suggests previous infection. IVIG can give false positivity.High titers of IgG can give false negative IgM. Therefore, active disease ispossible but less likely with this pattern.Reviewed and Electronically signed by Pathologist:Wenceslao Lee MD, PhD #[id number] Comment: Test performed by an immunoassay intended for the qualitative detection of IgG and IgM antibodiesto Cytomegalovirus (CMV) in human serum. When equivocal results are obtained, another specimen should be bnqipaxlg31-22 days later. WENCESLAO LEE MD,PhD - [id number] by: WENCESLAO LEE MD, PhD - [id number] Date/Time: 03.01.2021 9:10 AM DIRECTOR TRIAL Transcribed Date/Time: 03.01.2021 9:10 AM CSTElectronically Signed By: WENCESLAO LEE MD, PhD - [id number] 03.01.2021 9:10 AM [facility] BlackwellTroponin T (In-House)2021-03-01 11:02:34 Test Item Value Reference Range Interpretation Comments Troponin T (test code = 171 ng/L See_Comment A < 19 ng/L 9384) Rojas ggest retest at 3 to 6 hours later to rule o ut myocardial infarction >= 1 9 to <=52 ng/L Possible myocar dial injury. Sugges t retest at 3 xavi rs. - a change of < 20 ng/L, retest at 6 xavi rs - a change of >= 20 ng/L, suggestive of myocardial infarction > 52 ng/L Suggest neymar of myocardial infa rction Critical value will be reported when c Domonique is > 52 ng/L and o nly reported for e first in a series. He molyzed specimens with Hemolysis Index >100 (100 mg/dl or m oderate hemolysis) may cause interferences a nd falsely low res ults. [Automated mess age] The system Klocwork generated this result transmitted ref erence range: <=18. e reference range was not used to int erpret this result as normal/abnormal . Lab Interpretation Abnormal (test code = 78984-7) MD BlackwellHTLV I/II Ab Screen with [id number] 05:22:45 Test Item Value Reference Range Interpretation Comments HTLV I/II Ab Negative Negative Test Performed by:[facility] (test Clinic Lab oratories - code = 09187-6) [facility] [address] [facility] [address] [place], [place] [address]Scb Director: John Izaguirre M.D. Ph. D.; CLIA# [id number] MD BlackwellAmmonia Cgdsx6705-08-08 01:38:48 Test Item Value Reference Range Interpretation Comments Ammonia (test code = <13 See_Comment L [Autom ated message] 2499) The system Klocwork generated this result transmitted ref erence range: 16 - 60 mcmol/L. The reference range was not used to int erpret this result as normal/abnormal . Lab Interpretation (test Abnormal code = 11179-3) MD BlackwellLactic Acid, [id number] 01:10:21 Test Item Value Reference Range Interpretation Comments V Lactate (test code = 2519-7) 2.0 mmol/L 0.5-1.6 H Lab Interpretation (test code = Abnormal 48103-2) MD BlackwellCMV Ab IgG+[id number] 21:53:38 Test Item Value Reference Range Interpretation Comments CMV IgM Int (test code = 5219) Negative Negative CMV IgG Int (test code = 5217) Positive Negative A Lab Interpretation (test code = Abnormal 69644-4) MD BlackwellCardiac [id number] 00:37:25 Test Item Value Reference Range Interpretation Comments CK (test code = 5206) 156 U/L 39-308 CK MB (test code = 11.0 ng/mL See_Comment H [Automat ed message] 5209) The system Klocwork generated this result transmitted ref erence range: <=10.4. The reference range was not used to int erpret this result as normal/abnormal . Troponin T (test code 143 ng/L See_Comment A < 19 ng/L = 9384) S uggest retest at 3 to 6 hours later to rule out myocardial infarction >= 1 9 to <=52 ng/L Possible myocar dial injury. Sugges t retest at 3 xavi rs. - a change of < 20 ng/L, retest at 6 hours - a manish nge of >= 20 ng/L, suggestive of myocardial infarction > 52 ng/L Sugges tive of myocardial infarction Crit ical value will be reported when c Domonique is > 52 ng/L and o nly reported for th e first in a seri es. Hemolyzed speci mens with Hemolysis Index >100 (100 mg/dl or moderate hemoly sis) may cause interferences a nd falsely low res ults. [Automated mess age] The system Klocwork generated this result transmitted ref erence range: <=18. Th e reference range was not used to int erpret this result as normal/abnormal . Lab Interpretation Abnormal (test code = 32622-6) MD Samson B Core Total [id number] 19:09:04 Test Item Value Reference Range Interpretation Comments HBc Total Ab-Macon (test Positive Negative A If c linically code = 66960-2) indicated, t esting for Hepatitis B Cor eIgM antibody is nec essary to differentiat e between acutean d past HBV infection. Test Performed by:Gabriella coyle [facility] [address], [place], [place] [address]Osv Dir inés: Jaycob laughlin M.D. Ph.D.; CLIA# [id number] Lab Interpretation Abnormal (test code = 78280-7) MD Samson B Surface Ag w/[id number] 18:50:01 Test Item Value Reference Range Interpretation Comments Hep Bs Ag-Macon Negative Negative Test Perform ed by:[place] (test code = [facility] - 5196-1) [place] [address] [employer] [place], [place] [address]Vjc Director: John Izaguirre M.D. Ph. D.; CLIA# [id number] MD BlackwellKeila HIV 1/2 Ag&Ab Path [id number] 15:57:28 Test Item Value Reference Range Interpretation Comments HIV 1/2 Ag&Ab Negative for Interp (test HIV-1 antigen and code = 9394) HIV-1/HIV-2 ____ALECIAANA OSIRIS IA antibodies. No DHAVAL GUTIERREZ MD laboratory - 42162Hyxdulns by: evidence of HIV ROM MARIA T Sumeet infection. If DHAVAL GUTIERREZ MD acute HIV - 39363Cpinxmwe infection is Date/Time: 01.28 suspected, 9:57 AM DIRECTOR TRIAL consider testing Transcribed Date/Time: for HIV-1 RNA. 02.25.2021 9: 57 AM CSTElectronical ly Signed By: ROM SANTACRUZ MD - [id number] on 9:57 AM C MD [place] RPR Path [id number] 15:57:27 Test Item Value Reference Interpretation Comments Range TMP RPR Path The Rapid Interpretation Plasma Reagin (test code = (RPR) assay is NENA TINEO 619233) negative. If a DUDLEY Whitley syphilis [place] BRENDA - [place] [address]Xnfmxzmb b y: suspected, ROM TINEO please perform DHAVAL fay Treponemal MD BRENDA - specific 77074Eerpcwva screening Date/Time: 01.28 assay. 9:57 AM DIRECTOR TRIAL Transcribed Rajendra e/Time: 02.25.2021 9:57 AM CSTElectronical ly Signed By: ALECIA GUTIERREZ MD - 143 02 on 02.25.2021 9:57 AM Jack [place] HCV Ab Path [id number] 15:56:11 Test Item Value Reference Range Interpretation Comments HCV Ab Path There is NO Interp (test serologic code = 8923) evidence of ____ROM ANAYA Hepatitis C DHAVAL SANTACRUZ MD virus antibody. - 02288Miziv valentina by: ROM SANTACRUZ MD - [id number] Date/Time: 01.28 9:56 AM DIRECTOR TRIAL Transcribed Rajendra e/Time: 02.25.2021 9:56 AM CSTElectronical ly Signed By: ROM SANTACRUZ MD - [id number] on 9:56 AM C MD [place] Plasma Reagin (RPR) [Syphilis SCREENING]2021-02-25 06:20:21 Test Item Value Reference Range Interpretation Comments RPR Screening (test code = Non Reactive Non Reactive 810394) MD BlackwellHepatitis C Virus [id number] 03:11:01 Test Item Value Reference Range Interpretation Comments HCVAb. (test Non Reactive Non Reactive Antibody detect ion in the code = 5762) immunocompromis ed and immunosuppresse d population may be delayed or absent entirely. There fore serial testing, correl ation with other clinical findings, and supplementa l testing (if available) should be taken into cons ideration when interpreti ng the results.Perform ed at: [facility] [address] [address] MD BlackwellHIV-1/2 Antigen and Antibodies, Fourth Aireqpzrrs1921-08-07 02:11:00 Test Item Value Reference Range Interpretation Comments HIV 1/2 Ag & Ab, Non Reactive Non Reactive Performed a t: 4th Gen (test code [facility] = 9280) [address] [address] MD BlackwellNT-Pro BNP (In-House)2021-02-24 22:57:30 Test Item Value Reference Range Interpretation Comments NT ProBNP (test code = 68215 pg/mL See_Comment H [Aut omated 9391) message] The sy stem which generated this result transmitted reference range : <=450. The reference range was not used to interpret this result as normal/abnormal . Lab Interpretation Abnormal (test code = 13754-9) MD BlackwellLipid [id number] 22:55:59 Test Item Value Reference Range Interpretation Comments Chol (test code = 137 mg/dL See_Comment ATP III Cl assification 5283) of Total Choles terol Primary Target of Therapy (in mg/dL):<200 Kgdwkcjct838-55 9 Borderline high >=240 High [Auto mated message] The sy stem which generated this result transmit valentina reference range : <=199. The refe rence range was not u sed to interpret this result as normal/abnor mal. Trig (test code = 114 mg/dL See_Comment ATP III Cl assification 7655) of Serum Trigly cerides Primary Target of Therapy (in mg/dL):<150 Vadpep254-554 Borderline high 200-499 High>=500 Very highNon-fa sting triglycerides > 200 mg/dL may be fo llowed up with a fasti ng Lipid Panel. Calculated LDL- C may be falsely decr eased when non-fastin g triglycerides > 200 mg/dL. [Automa valentina message] The [employer] stem which generated this result transmit valentina reference range : <=149. The refe rence range was not u sed to interpret this result as normal/abnor mal. HDL (test code = 5763) 24 mg/dL See_Comment L [Aut omated message] The system K[employer]work generated this result transmitted ref erence range: >=40. Th e reference range was not used to int erpret this result as normal/abnormal . LDL (test code = 6123) 90 mg/dL See_Comment ATP I II Classification of LDL Choleste rol Primary Target of Therapy (in mg/dL):<100 Wvotwds091-948 Near optimal/above -782 Borderline high 160-189 High>=190 Very high [Automated mess age] The system Klocwork generated this result transmitted ref erence range: <=100. T he reference range was not used to int erpret this result as normal/abnormal . VLDL (test code = 23 mg/dL 7986) Lab Interpretation Abnormal (test code = 30844-5) MD BlackwellHemoglobin [id number] 21:03:08 Test Item Value Reference Range Interpretation Comments A1C (test code = 5.2 % 4.3-5.6 HbA1c value s >=6.5% are 4632) diagnostic of d iabetes mellitus.Diagno sis should be confirmed by repeat testing.Therape uti Action suggested: >8.0 % HbA1c; Goal oftherapy: <7.0% HbA1c MD BlackwellBeta 2 [id number] 19:21:56 Test Item Value Reference Range Interpretation Comments Beta2 Microglob (test code = 5090) 2.7 mg/L 0.8-2.3 H Lab Interpretation (test code = Abnormal 58550-9) MD BlackwellSuoruxvjYqJ9582-71-38 19:21:55 Test Item Value Reference Range Interpretation Comments IgM (test code = 6023) 331 mg/dL 35-242 H Lab Interpretation (test code = Abnormal 30880-6) MD B[id number] 19:21:54 Test Item Value Reference Range Interpretation Comments IgG (test code = 6001) 885 mg/dL 610-1616 MD BlackwellDtqgxlfuHwM0035-26-77 19:21:53 Test Item Value Reference Range Interpretation Comments IgA (test code = 5992) 225 mg/dL 85-499 MD BlackwellTMP Interpretation [id number] 14:32:51 Test Item Value Reference Range Interpretation Comments TMP Interp Patient red blood RAJENDRA (test cells demonstrate code = 7552) no evidence of ROM TINEO detectable IgG DHAVAL GUTIERREZ MD antibodies or - 53359Iovgana d by: complement. ROM SANTACRUZ MD - [id number] Date/Time: 01.28 8:32 AM DIRECTOR TRIAL Transcribed Rajendra e/Time: 02.24.2021 8:32 AM CSTElectronical ly Signed By: ALECIA GUTIERREZ MD - 143 02 on 02.24.2021 8:32 AM C MD BlackwellDirect Antiglobulin [id number] 01:57:14 Test Item Value Reference Range Interpretation Comments RAJENDRA Result (test code = IgG neg,C3 neg 69536-9) MD BlackwellVitamin D [id number] 00:21:35 Test Item Value Reference Range Interpretation Comments Vitamin D 25 OH (test 28 ng/mL 30-100 L Refere nce Range: code = 8018) Deficiency: <10 ng/mLInsufficie ncy: 10-29 ng/mLSufficienc y: 30-100 ng/mLPotential toxicity: >10 0 ng/mL Lab Interpretation (test Abnormal code = 85587-8) MD BlackwellTotal [id number] 00:18:25 Test Item Value Reference Range Interpretation Comments Total Protein (test code = 7649) 6.4 g/dL 6.4-8.3 MD BlackwellElectrolyte Efdqt5805-05-18 00:18:20 Test Item Value Reference Range Interpretation Comments Sodium Lvl (test code = 139 See_Comment [Au tomated message] The 7355) system which ge nerated this result tra nsmitted reference range : 136 - 145 mEq/L. The reference range was not u sed to interpret this result as normal/abnormal . Potassium Lvl (test 3.5 See_Comment [Automa valentina message] The code = 6854) system which ge nerated this result tra nsmitted reference range : 3.5 - 5.1 mEq/L. The reference range was not u sed to interpret this result as normal/abnormal . Chloride (test code = 103 See_Comment [Auto mated message] The 5279) system which ge nerated this result tra nsmitted reference range : 98 - 107 mEq/L. The refe rence range was not u sed to interpret this result as normal/abnormal . CO2 (test code = 5227) 22 See_Comment [Aut omated message] The system which ge nerated this result tra nsmitted reference range : 22 - 29 mEq/L. The refe rence range was not u sed to interpret this result as normal/abnormal . Anion Gap (test code = 14 See_Comment [Aut omated message] The 9301) system which ge nerated this result tra nsmitted reference range : 4 - 14 mEq/L. The refe rence range was not u sed to interpret this result as normal/abnormal . MD BlackwellNgxzghxzAAR5620-98-32 00:18:16 Test Item Value Reference Range Interpretation Comments TSH (test code = 1.62 See_Comment [Automated message] The 7578) system which ge nerated this result transmit valentina reference range : 0.27 - 4.20 mcunit/mL. The reference range was not used to interpr et this result as abbey l/abnormal. MD [id number] 00:18:14 Test Item Value Reference Range Interpretation Comments T4 (test code = 7493) 7.0 See_Comment [Auto mated message] The system which ge nerated this result transmit valentina reference range : 4.5 - 11.7 mcg/dL. The ref erence range was not used to interpret this result as normal/abnormal . MD BlackwellHTLV I/II [id number] 00:04:02 Test Item Value Reference Range Interpretation Comments HTLVI/II Ab Received See Note HTLV I/ II Ab was sent (test code = 66925) to a ref erence lab for testing. Expec t results on HTLV I/II Ab Screen with Confirm within 96 hours . MD Domínguezpatitis B Surface [id number] 00:04:01 Test Item Value Reference Range Interpretation Comments HBsAg Received (test See Note HBsAg w as sent to a code = 63517) reference lab for testing. Expec t results on Hepa titis B Surface Antigen w/ Confirm within 96 hours. MD Samson B Total Ig Core Ab (SCREENING) (anti-HBc total Ig; HBcAb total Ig)2021-02-24 00:04:00 Test Item Value Reference Range Interpretation Comments HBcAb Received (test See Note HBcAb w as sent to a code = 86379) reference lab for testing. Expec t results on Hepa titis B Core Total Ab w ithin 96 hours. MD BlackwellCOVID-19 (SARS-CoV-2)Wfwanktpeaod-[id number] 23:59:26 Test Item Value Reference Range Interpretation Comments COVID19 Not Detected Not Detected (SARS-CoV-2) (test code = 89019-5) COVID19 SARS Inpatient Indication (test Admission code = 00882) Covid 19 Comment See Note The kayla S ARS-CoV-2 (test code = [place] [address]) use on the christiano s Fl[employer] System is a maya l-time RT-PCR assay in tended for the qualita tive detection of SARS-CoV-2 (COV ID-19) viral RNA in nasopharyngeal swabs from either individuals isaías pected of COVID-19 by their healthcare prov ider or from any individual, inc luding individuals wit hout symptoms or oth er reasons to susp ect COVID-19. A fa ct sheet for patie nts provided by the pig machine operator ([employer]) can be rev iewed at: https://www.fda .gov/m edia/641199/michael nload. A fact sheet fo r Health Care pro viders is provided by the pig machine operator ([employer]) and can be reviewed at: https://www.fda .gov/m edia/707264/michael nload Results must be interpreted wit hin the context of all relevant clinic al and laboratory find ings and should not form the sole basis for a diagnosis or treatment decis ion. Positive result s do not rule out bacterial infec tion or co-infection with other viruses. Negative result s do not preclude SARS-CoV-2 infe ction and must be com bined with clinical observations, p atient history, and/or epidemiological information. Th is assay has been authorized by t [employer] for use only un jonas Emergency Use Authorization ( EUA) in laboratories that have been CLIA-certified to perform moderate-comple xity and high-comple xity tests. The Microbiology Laboratory at [facility], CLIA Accreditation #[id number] and CAP Accreditation #[id number], verif ied the performance characteristics of this assay. Int ernal controls are us ed to monitor all sta ges of the test proces s. MD BlackwellPOC-Glucose [id number] 11:42:00 Test Item Value Reference Range Interpretation Comments POC-Glucose Meter (test 106 mg/dL 70-110 : [place] [facility] [place] [address] [place] [address], [facility] 30: Watershed Manager/Techni jenifer ID = [id number] for [facility] Lab Interpretation (test Normal code = 66472-8) [facility] [id number] 11:42:00 Test Item Value Reference Range Interpretation Comments POC-Glucose Meter (test 106 mg/dL 70-110 : [place] [facility] [place] [address] [place] [address], [facility] 30: Watershed Manager/Techni jenifer ID = [id number] for [facility] Lab Interpretation (test Normal code = 59639-1) [facility] [id number] 11:42:00 Test Item Value Reference Range Interpretation Comments POC-Glucose Meter (test 106 mg/dL 70-110 : [place] [facility] [place] [address] [place] [address], [facility] 30: Watershed Manager/Techni jenifer ID = [id number] for [facility] Lab Interpretation (test Normal code = 92607-5) [facility] HospitalPO[facility]GLUCOSE [id number] 11:42:00 Test Item Value Reference Range Interpretation Comments POC-GLUCOSE METER 106 mg/dL 70-110 : TESTED A T [facility] 6720 (BEAKER) (test code = AUDREY [place], 1538) [address]: Watershed Manager/Techni jenifer ID = [id number] for ISIAH COLLINS POCT-GLUCOSE [id number] 07:59:00 Test Item Value Reference Range Interpretation Comments POC-GLUCOSE METER 98 mg/dL 70-110 : TESTED A T [facility] 6720 (BEAKER) (test code = AUDREY Whitley [facility], 1538) [address]: Watershed Manager/Techni jenifer ID = [id number] for ISIAH MANRIQUEZ [id number] 06:20:00 Test Item Value Reference Range Interpretation Comments Magnesium (test code = 2.1 mg/dL 1.6-2.6 53608-8) GRABIEL (test code = GRABIEL) Watershed Manager ID - BS Lab Interpretation (test Normal code = 18430-1) [facility] [id number] 06:20:00 Test Item Value Reference Range Interpretation [...] Calcium (test code = 9.4 mg/dL 8.4-10.2 36078-7) EGFR (test code = 93 mL/min/1.73 [place] [address]-3) NOT ACCURATE CREATININE CLEARANCE IN PREDICTING GLOMERULAR FILTRATION RATE . ESTIMATED GFR I S NOT APPLICABLE FOR DIALYSIS PATIENTS. GRABIEL (test code = GRABIEL) Watershed Manager ID - BS Lab Interpretation Abnormal (test code = 60935-9) [facility] Hospital[facility]esium2021-08-04 06:20:00 Test Item Value Reference Range Interpretation Comments Magnesium (test code = 2.1 mg/dL 1.6-2.6 48131-1) GRABIEL (test code = GRABIEL) Watershed Manager ID - BS Lab Interpretation (test Normal code = 37997-5) [facility] metabolic [id number] 06:20:00 Test Item Value Reference Range Interpretation Comments Sodium (test code = 135 meq/L 136-145 L 2951-2) Potassium (test code = 3.6 meq/L 3.5-5.1 2823-3) Chloride (test code = 99 meq/L 98-107 2075-0) CO2 (test code = 28 meq/L -2027-10) BUN (test code = 18 mg/dL 7-21 3094-0) Creatinine (test code 0.79 mg/dL 0.57-1.25 = 2160-0) Glucose (test code = 102 mg/dL 70-105 2345-7) Calcium (test code = 9.4 mg/dL 8.4-10.2 78414-2) EGFR (test code = 93 mL/min/1.73 sq m ESTIMFORM[facility]LY [facility] [place] [address]-9) NOT ACCURATE CREATININE CLEARANCE IN PREDICTING GLOMERULAR FILTRATION RATE . ESTIMATED GFR I S NOT APPLICABLE FOR DIALYSIS PATIENTS. GRABIEL (test code = GRABIEL) Watershed Manager ID - BS Lab Interpretation Abnormal (test code = 34109-9) [facility] 06:20:00 Test Item Value Reference Range Interpretation Comments Magnesium (test code = 2.1 mg/dL 1.6-2.6 90569-9) GRABIEL (test code = GRABIEL) Watershed Manager ID - BS Lab Interpretation (test Normal code = 59166-1) [facility] metabolic [id number] 06:20:00 Test Item Value Reference Range Interpretation Comments Sodium (test code = 135 meq/L 136-145 L 2951-2) Potassium (test code = 3.6 meq/L 3.5-5.1 2823-3) Chloride (test code = 99 meq/L 98-107 2075-0) CO2 (test code = 28 meq/L -2027-9) BUN (test code = 18 mg/dL 7-21 3094-0) Creatinine (test code 0.79 mg/dL 0.57-1.25 = 2160-0) Glucose (test code = 102 mg/dL 70-105 2345-7) Calcium (test code = 9.4 mg/dL 8.4-10.2 37281-3) EGFR (test code = 93 mL/min/1.73 [place] [address]-6) NOT ACCURATE CREATININE CLEARANCE IN PREDICTING GLOMERULAR FILTRATION RATE . ESTIMATED GFR I S NOT APPLICABLE FOR DIALYSIS PATIENTS. GRABIEL (test code = GRABIEL) Watershed Manager ID - BS Lab Interpretation Abnormal (test code = 35278-6) [facility] METABOLIC [id number] 06:20:00 Test Item Value Reference Range Interpretation [...] S NOT APPLICABLE FOR DIALYSIS PATIEN TS. Watershed Manager ID - GTPETGHXPOY9829-66-07 06:20:00 Test Item Value Reference Range Interpretation Comments MAGNESIUM (BEAKER) (test code = 2.1 mg/dL 1.6-2.6 627) Watershed Manager ID - BSCBC (Hemogram only)2020-09-29 05:40:00 Test Item Value Reference Range Interpretation Comments WBC (test code = 6690-2) 3.9 See_Comment [A utomated message] The system [employer] generated this result transmitted ref erence range: 3.5 - 10 .5 K/L. The refe rence range was not u sed to interpret this result as normal/abnor mal. RBC (test code = 789-8) 4.16 See_Comment L [Au tomated message] The system [employer] generated this result transmitted ref erence range: 4.63 - 6 .08 M/L. The refe rence range was not u sed to interpret this result as normal/abnor mal. MCHC (test code = 786-4) 31.3 See_Comment L [A utomated message] The system [employer] generated this result transmitted ref erence range: [...] See_Comment [Aut omated message] 777-3) The system [employer] generated this result transmitted ref erence range: 150 - 45 0 K/CU MM. The referen ce range was not u sed to interpret this result as normal/abnor mal. MPV (test code = 10.4 fL 9.4-12.4 71042-1) nRBC (test code = 413) 0 See_Comment [Aut omated message] The system [employer] generated this result transmitted ref erence range: 0 - 0 /1 00 WBC. The refere nce range was not u sed to interpret this result as normal/abnor mal. Lab Interpretation (test Abnormal code = 01578-9) [facility] (Hemogram only)2020-09-29 05:40:00 Test Item Value Reference Range Interpretation Comments WBC (test code = 6690-2) 3.9 See_Comment [A utomated message] The system [employer] generated this result transmitted ref erence range: 3.5 - 10 .5 K/L. The refe rence range was not u sed to interpret this result as normal/abnor mal. RBC (test code = 789-8) 4.16 See_Comment L [Au tomated message] The system [employer] generated this result transmitted ref erence range: 4.63 - 6 .08 M/L. The refe rence range was not u sed to interpret this result as normal/abnor mal. MCHC (test code = 786-4) 31.3 See_Comment L [A utomated message] The system [employer] generated this result transmitted ref erence range: 32.3 - 3 6.5 GM/DL. The refe rence range was not u sed to interpret this result as normal/abnor mal. Hematocrit (test code = 38.6 % 40.1-51.0 L 4544-3) MCV (test code = 787-2) 92.8 fL 79.0-92.2 H MCH (test code = 785-6) 29.1 pg 25.7-32.2 RDW (test code = 788-0) 15.2 % 11.6-14.4 H Platelets (test code = 156 See_Comment [Aut omated message] 777-3) The system [employer] generated this result transmitted ref erence range: 150 - 45 0 K/CU MM. The referen ce range was not u sed to interpret this result as normal/abnor mal. MPV (test code = 10.4 fL 9.4-12.4 52454-8) nRBC (test code = 413) 0 See_Comment [Aut omated message] The system [employer] generated this result transmitted ref erence range: 0 - 0 /1 00 WBC. The refere nce range was not u sed to interpret this result as normal/abnor mal. Lab Interpretation (test Abnormal code = 97109-3) [facility] (Hemogram only)2020-09-29 05:40:00 Test Item Value Reference Range Interpretation Comments WBC (test code = 6690-2) 3.9 See_Comment [A utomated message] The system [employer] generated this result transmitted ref erence range: 3.5 - 10 .5 K/L. The refe rence range was not u sed to interpret this result as normal/abnor mal. RBC (test code = 789-8) 4.16 See_Comment L [Au tomated message] The system [employer] generated this result transmitted ref erence range: 4.63 - 6 .08 M/L. The refe rence range was not u sed to interpret this result as normal/abnor mal. MCHC (test code = 786-4) 31.3 See_Comment L [A utomated message] The system [employer] generated this result transmitted ref erence range: 32.3 - 3 6.5 GM/DL. The refe rence range was not u sed to interpret this result as normal/abnor mal. Hematocrit (test code = 38.6 % 40.1-51.0 L 4544-3) MCV (test code = 787-2) 92.8 fL 79.0-92.2 H MCH (test code = 785-6) 29.1 pg 25.7-32.2 RDW (test code = 788-0) 15.2 % 11.6-14.4 H Platelets (test code = 156 See_Comment [Aut omated message] 777-3) The system [employer] generated this result transmitted ref erence range: 150 - 45 0 K/CU MM. The referen ce range was not u sed to interpret this result as normal/abnor mal. MPV (test code = 10.4 fL 9.4-12.4 60267-5) nRBC (test code = 413) 0 See_Comment [Aut omated message] The system [employer] generated this result transmitted ref erence range: 0 - 0 /1 00 WBC. The refere nce range was not u sed to interpret this result as normal/abnor mal. Lab Interpretation (test Abnormal code = 51242-0) [facility] (HEMOGRAM ONLY)2020-09-29 05:40:00 Test Item Value [...] 0-0 (BEAKER) (test code = 413) POCT-GLUCOSE [id number] 22:41:00 Test Item Value Reference Range Interpretation Comments POC-GLUCOSE METER 97 mg/dL 70-110 : TESTED A T [facility] 6720 (BEAKER) (test code = [place], 1538) [address]: Watershed Manager/Techni jenifer ID = [id number] for Stam per, [place] U/S, ABDOMINAL, [id number] 17:39:00Abdomen limited area? Add comment if clarification is needed.->Gall BladderReason for exam:->epigastric pain [facility] 1935 Sex: MFINAL REPORT TECHNIQUE: Grayscale [...] right upper quadrant ultrasound.. Signed: Nayely Alvarez [facility] Verified Date/Time: 09/28/2020 17:39:04 US abdomen [id number] 17:39:00Interface, External Ris In - 09/28/2020 5:44 [...] by: NAYELY ALVAREZ MD on 09/28/2020 05:39 [facility] 11:24:00 Test Item Value Reference Range Interpretation Comments PTT (test code = 78.0 See_Comment H [Automated message] 28398-1) The system [employer] generated this result transmitted ref erence range: 22.5 - 3 6.0 seconds. The reference range was not used to int erpret this result as normal/abnormal . Lab Interpretation (test Abnormal code = 22699-5) [facility] 11:24[facility]00 Test Item Value Reference Range Interpretation Comments PTT (test code = 78.0 See_Comment H [Automated message] 05999-3) The system [employer] generated this result transmitted ref erence range: 22.5 - 3 6.0 seconds. The reference range was not used to int erpret this result as normal/abnormal . Lab Interpretation (test Abnormal code = 08343-5) [facility] 11:24:00 Test Item Value Reference Range Interpretation Comments PTT (test code = 78.0 See_Comment H [Automated message] 58001-4) The system [employer] generated this result transmitted ref erence range: 22.5 - 3 6.0 seconds. The reference range was not used to int erpret this result as normal/abnormal . Lab Interpretation (test Abnormal code = 46366-8) [place] [id number] 11:24:00 Test Item Value Reference Range Interpretation Comments PARTIAL THROMBOPLASTIN TIME 78.0 seconds 22.5-36.0 H (BEAKER) (test code = 760) POCT-GLUCOSE [id number] 07:58:00 Test Item Value Reference Range Interpretation Comments POC-GLUCOSE METER 102 mg/dL 70-110 : TESTED A T [facility] 6720 (BEAKER) (test code = [place], 1538) [address]: Watershed Manager/Techni jenifer ID = [id number] for Alexandra casas (contract), Kalpesh ice BASIC METABOLIC [id number] 07:24:00 Test Item Value Reference Range Interpretation [...] S NOT APPLICABLE FOR DIALYSIS PATIEN TS. Watershed Manager ID - PIAYA [id number] 07:24:00 Test Item Value Reference Range Interpretation Comments MAGNESIUM (BEAKER) (test code = 2.1 mg/dL 1.6-2.6 627) Watershed Manager ID - PIAYA LCBC (HEMOGRAM ONLY)2020-09-28 06:59:00 [...] WBC 0-0 (BEAKER) (test code = 413) [id number] 01:15:00 Test Item Value Reference Range Interpretation Comments PARTIAL THROMBOPLASTIN TIME 32.7 seconds 22.5-36.0 (BEAKER) (test code = 760) POCT-GLUCOSE [id number] 16:51:00 Test Item Value Reference Range Interpretation Comments POC-GLUCOSE METER 107 mg/dL 70-110 : TESTED A T [facility] 6720 (BEAKER) (test code = AUDREY Whitley [facility], 1538) [address]: Watershed Manager/Techni jenifer ID = [id number] for Bi Suzanne mcclain ECG 12 [id number] 15:06:28Interface, External Ris In - 09/27/2020 3:06 PM CDTVentricular Rate 74 BPMAtrial Rate 74 BPMP-R Interval 366 msQRS Duration 78 msQ-T Interval 394 msQTC Calculation(Bazett) 437 msP York 61 degreesR York 66 degreesT York 196 degreesSinus rhythm with 1st degree A-V blockMinimal ST depression and T wave inversion in I, II and aVL with mild ST elevation in aVR consider ischemiaAbnormal ECGNo previous ECGs availableConfirmed by MD LUZ, ANDREI (190) on 09/27/2020 3:06:24 [facility] Echo W/Doppler(CW/PW/Color)2020-09-27 14:02:33Ejection FractionSKOOTENAI HEALTH ECHO HEARTLAB MKCKESSON CPACSInterface, External Ris In - 09/27/2020 2:02 PM CDTTransthoracic Echocardiography Report (TTE) Demographics Patient Name EJRE GAYTAN Date ofStudy 09/27/2020 DARLIN Gender Male Visit Number [id number] Race Unknown RoomNumber 8A07 Number Date of 1935 Referring Franky Mantilla Physician Age 85 year(s) Instructional Design Consultant Darlene Lares [facility] Locomotive Switch Operator Jovanni Benz Interpreting [facility] Physician James Chirinos MD Procedure [...] LVOT CO: 3.61 l/min LVOT CI: 1.93 l/min/m^2[facility]P Echo W/Doppler(CW/PW/Color)2020-09-27 14:02:33Ejection FractionSLEH ECHO HEARTLAB [facility]2D Echo W/Doppler(CW/PW/Color) 2020-09-27 14:02:33Ejection FractionSLEH ECHO HEARTLAB [facility]Asymptomatic ONLY)2020-09-27 13:03:00 Test Item Value Reference Range Interpretation Comments SARS-COV2/RT-PCR Negative Not Detected, (test code = Negative, See 64131-6) external report for linked test SARS-COV-2 [facility] JIMENEZ PERFORMING LAB (test code = 31449-9) GRABIEL (test code = Negative result for [...] of the Act. Fact Sheet for Healthcare Providers:https://www.[employer].Tap[employer]ield/sites/default/f carmen/product/documents/F act_Sheet_HC_Providers_L zes_BAGW-CuD-5.pdf Fact Sheet for Healthcare Patients:https://www.Pro.com/sites/default/fi les/product/documents/Fa ct_Sheet_Patients_Ly_S ARS-CoV-2.pdf Performing Laboratory:[facility] [place] [address] [facility] (Asymptomatic ONLY)2020-09-27 13:03:00 Test Item Value Reference Range Interpretation Comments SARS-COV2/RT-PCR Negative Not Detected, (test code = Negative, See 72547-8) external report for linked test SARS-COV-2 [facility] JIMENEZ PERFORMING LAB (test code = 43227-3) GRABIEL (test code = Negative result for [...] of the Act. Fact Sheet for Healthcare Providers:https://www.[employer]/sites/default/f carmen/product/documents/F act_Sheet_HC_Providers_L tgq_RXVG-OkZ-7.pdf Fact Sheet for Healthcare Patients:https://www.Pro.com/sites/default/fi les/product/documents/Fa ct_Sheet_Patients_Lyra_S ARS-CoV-2.pdf Performing Laboratory:[facility] [place] [address] [facility]/RT-PCR (Asymptomatic ONLY)2020-09-27 13:03:00 Test Item Value Reference Range Interpretation Comments SARS-COV2/RT-PCR Negative Not Detected, (test code = Negative, See 61590-7) external report for linked test SARS-COV-2 [facility] JIMENEZ PERFORMING LAB (test code = 43456-2) GRABIEL (test code = Negative result for [...] of the Act. Fact Sheet for Healthcare Providers:https://www.[employer]/sites/default/f carmen/product/documents/F act_Sheet_HC_Providers_L olu_TAKT-BaC-5.pdf Fact Sheet for Healthcare Patients:https://www.Pro.com/sites/default/fi les/product/documents/Fa ct_Sheet_Patients_Lyra_S ARS-CoV-2.pdf Performing Laboratory:[facility] [place] [address] [facility]OV2/RT-PCR ([facility])2020-09-27 13:03:00 Test Item Value Reference Range Interpretation Comments SARS-COV2/RT-PCR (test Negative Not Detected, Negative, code = 2790957) See external report for linked test SARS-COV-2 PERFORMING LAB [facility] JIMENEZ (test code = 8791452) Negative result for this test determines that [...] 564(g) of the Act.Fact Sheet for Healthcare Providers:https://www.[employer]/sites/default/files/product/documents/Fact_Shee w_KR_Qqahvbpyb_Hapb_TWAU-UnL-0.pdfFact Sheet for Healthcare Patients:https://www.[employer]/sites/default/files/product/ documents/Nmhq_Qdetp_Jtkbpgto_Toch_IAST-OmQ-3.pdfPerforming Laboratory:[address], [place] [address]SCVB-ZKLXOGN METER 2020-09-27 11:29:00 Test Item Value Reference Range Interpretation Comments POC-GLUCOSE METER 124 mg/dL 70-110 H : Notified RN/MD: (IMANI) (test code = TESTED AT [place] [address] 1538) [facility], [address]: Watershed Manager/Techni jenifer ID = [id number] for PH INMALINDAE, DARRYL POCT-GLUCOSE [id number] 08:54:00 Test Item Value Reference Range Interpretation Comments POC-GLUCOSE METER 135 mg/dL 70-110 H : TESTED A T [place] [address] (IMANI) (test code = [facility], 1538) [address]: Watershed Manager/Techni jenifer ID = [id number] for PH INISEE, DARRYL Vitamin B12 and [id number] 05:55:00 Test Item Value Reference Range Interpretation Comments Vitamin B12 (test 578 pg/mL 213-816 code = 2132-9) Folate (test code = 18.00 ng/mL See_Comment [Automa valentina 2284-8) message] The system which generated this result transmit valentina reference range : >=7.00. The reference range was not used to interpret this result as normal/abnormal . GRABIEL (test code = GRABIEL) Watershed Manager ID - [facility] Lab Interpretation Normal (test code = 04707-7) [facility]in[facility] 05:55:00 Test Item Value Reference Range Interpretation Comments Ferritin (test code = 35.96 ng/mL 5.00-275.00 2276-4) GRABIEL (test code = GRABIEL) Watershed Manager ID - [facility] Lab Interpretation (test Normal code = 16150-5) [facility] HospitalVitamin B12 and [id number] 05:55:00 Test Item Value Reference Range Interpretation Comments Vitamin B12 (test 578 pg/mL 213-816 code = 2132-9) Folate (test code = 18.00 ng/mL See_Comment [Automa valentina 2284-8) message] The system which generated this result transmit valentina reference range : >=7.00. The reference range was not used to interpret this result as normal/abnormal . GRABIEL (test code = GRABIEL) Watershed Manager ID - [facility] Lab Interpretation Normal (test code = 11171-7) [facility] Hospital[facility]in[facility] 05:55:00 Test Item Value Reference Range Interpretation Comments Ferritin (test code = 35.96 ng/mL 5.00-275.00 2276-4) GRABIEL (test code = GRABIEL) Watershed Manager ID - [facility] Lab Interpretation (test Normal code = 41123-9) [facility] HospitalVitamin B12 and [id number] 05:55:00 Test Item Value Reference Range Interpretation Comments Vitamin B12 (test 578 pg/mL 213-816 code = 2132-9) Folate (test code = 18.00 ng/mL See_Comment [Automa valentina 2284-8) message] The system which generated this result transmit valentina reference range : >=7.00. The reference range was not used to interpret this result as normal/abnormal . GRABIEL (test code = GRABIEL) Watershed Manager ID [facility] Lab Interpretation Normal (test code = 98913-6) [facility] Hospital[facility]in2021-[facility] 05:55:00 Test Item Value Reference Range Interpretation Comments Ferritin (test code = 35.96 ng/mL 5-275 2276-4) GRABIEL (test code = GRABIEL) Watershed Manager ID Rip Grajeda Lab Interpretation (test Normal code = 14039-7) [facility] 05:55[facility]00 Test Item Value Reference Range Interpretation Comments FERRITIN (BEAKER) (test code = 35.96 ng/mL 5.00-275.00 361) Watershed Manager AIYANA ELIZABETH MVITAMIN B12 AND [id number] 05:55:00 Test Item Value Reference Range Interpretation Comments VITAMIN B12 578 pg/mL 213-816 (BEAKER) (test code = 774) FOLATE (BEAKER) 18.00 ng/mL See_Comment [Automated message] (test code = 362) The system which generated this result transmitted ref erence range: >=7.00. The reference range was not used to interpr et this result as normal/abnormal . Watershed Manager AIYANA Saldanaon, TIBC, % sat. (without ferritin)2020-09-27 05:10:00 Test Item Value Reference Range Interpretation Comments Iron (test code = 2498-4) 37.0 ug/dL 40-160 L TIBC (test code = 2500-7) 404 ug/dL 250-450 Iron % Saturation (test 9 % 20-55 L code = 2502-3) GRABIEL (test code = GRABIEL) Watershed Manager AIYANA Grajeda Lab Interpretation (test Abnormal code = 99529-3) [facility]BC, % sat. (without ferritin)2020-09-27 05:10:00 Test Item Value Reference Range Interpretation Comments Iron (test code = 2498-4) 37.0 ug/dL 40.0-160.0 L TIBC (test code = 2500-7) 404 ug/dL 250-450 Iron % Saturation (test 9 % 20-55 L code = 2502-3) GRABIEL (test code = GRABIEL) Watershed Manager ID Rip Grajeda Lab Interpretation (test Abnormal code = 93550-4) [facility]BC, % sat. (without ferritin)2020-09-27 05:10:00 Test Item Value Reference Range Interpretation Comments Iron (test code = 2498-4) 37.0 ug/dL 40.0-160.0 L TIBC (test code = 2500-7) 404 ug/dL 250-450 Iron % Saturation (test 9 % 20-55 L code = 2502-3) GRABIEL (test code = GRABIEL) Watershed Manager ID Rip Grajeda Lab Interpretation (test Abnormal code = 31483-0) [facility] HospitalIRON, TIBC, % SAT. (WITHOUT FERRITIN)2020-09-27 05:10:00 Test Item Value Reference Range Interpretation Comments IRON (BEAKER) (test code = 547) 37.0 ug/dL 40.0-160.0 L TOTAL IRON BINDING CAPACITY 404 ug/dL 250-450 (BEAKER) (test code = 769) IRON % SATURATION (2) (BEAKER) 9 % 20-55 L (test code = 2590) Watershed Manager ID - CLARA MBASIC METABOLIC [id number] 04:39:00 Test Item Value Reference Range Interpretation [...] S NOT APPLICABLE FOR DIALYSIS PATIEN TS. Watershed Manager ID - CLARA [id number] 04:39:00 Test Item Value Reference Range Interpretation Comments MAGNESIUM (BEAKER) (test code = 2.3 mg/dL 1.6-2.6 627) Watershed Manager ID - CLARA MCBC (HEMOGRAM ONLY)2020-09-27 04:22:00 [...] 0-0 (BEAKER) (test code = 413) POCT-GLUCOSE [id number] 23:19:00 Test Item Value Reference Range Interpretation Comments POC-GLUCOSE METER 109 mg/dL 70-110 : TESTED A T [facility] 6720 (BEAKER) (test code = AUDRE[place] CHILDRESS [place], 1538) [address]: Watershed Manager/Techni jenifer ID = [id number] for FRANCIA SANCHES [id number] 13:27:00 Test Item Value Reference Range Interpretation Comments PARTIAL THROMBOPLASTIN TIME 75.7 seconds 22.5-36.0 H (BEAKER) (test code = 760) Hemoglobin [id number] 08:25:00 Test Item Value Reference Range Interpretation Comments Hemoglobin A1C (test code = 4548-4) 6.7 % 4.3-6.1 H Lab Interpretation (test code = Abnormal 24464-1) [facility] HospitalHemoglobin [id number] 08:25:00 Test Item Value Reference Range Interpretation Comments Hemoglobin A1C (test code = 4548-4) 6.7 % 4.3-6.1 H Lab Interpretation (test code = Abnormal 37149-9) [facility] HospitalHemoglobin [id number] 08:25:00 Test Item Value Reference Range Interpretation Comments Hemoglobin A1C (test code = 4548-4) 6.7 % 4.3-6.1 H Lab Interpretation (test code = Abnormal 21770-4) [facility] HospitalHEMOGLOBIN [id number] 08:25:00 Test Item Value Reference Range Interpretation Comments HEMOGLOBIN A1C (BEAKER) (test code = 6.7 % 4.3-6.1 H 368) RAD, CHEST, 1 VIEW, NON [id number] 08:15:00Reason for exam:->shortness of breath Should this be performed at the bedside?->Yes [facility] 1935 Sex: MFINAL REPORT INDICATION: shortness of breath COMPARISON: None ANTON HNIQUE: Single frontal view of the chest. FINDINGS: Lungs and pleura: Clear lungs. No effusion.Heartand mediastinum: Normal heart size. Unremarkable mediastinal contours.Osseous structures: No acute abnormality.Other: None. IMPRESSION: No acute intrathoracic abnormality. Signed: Yaneth Vaughn MDReport Verified Date/Time: 09/26/2020 08:15:42 Reading Location: [address] Neuro Reading Room XR chest 1 view portable / [id number] 08:15:00 Interface, External Ris In - 09/26/2020 8:17 AM CDTFINAL REPORT INDICATION: shortness of breath COMPARISON: None TECHNIQUE: Single frontal view of the chest. FINDINGS: Lungs andpleura: Clear lungs. No effusion.Heart and mediastinum: Normal heart size. Unremarkable mediastinal c ontours.Osseous structures: No acute abnormality.Other: None. IMPRESSION: No acute intrathoracic abnormality. Signed: Yaneth Vaughn MDReport Verified Date/Time: 09/26/2020 08:15:42 Reading Location: [address] Neuro Reading Room [facility], [id number] 07:15:00 Test Item Value Reference Range Interpretation Comments ABO Grouping (test code = 2588) B Rh Factor (test code = 2589) POS [facility], [id number] 07:15:00 Test Item Value Reference Range Interpretation Comments ABO Grouping (test code = 2588) B Rh Factor (test code = 2589) POS [facility], [id number] 07:15:00 Test Item Value Reference Range Interpretation Comments ABO Grouping (test code = 2588) B Rh Factor (test code = 2589) POS [facility] HospitalType [facility] screen, [id number] 06:19:00 Test Item Value Reference Range Interpretation Comments ABO/RH AUTOMATED (BEAKER) (test B POSITIVE code = 2260) Ab Scrn (test code = 890-4) NEGATIVE [facility] HospitalType [facility] screen, [id number] 06:19:00 Test Item Value Reference Range Interpretation Comments ABO/RH AUTOMATED (BEAKER) (test B POSITIVE code = 2260) Ab Scrn (test code = 890-4) NEGATIVE [facility] HospitalType [facility], [id number] 06:19:00 Test Item Value Reference Range Interpretation Comments ABO/RH AUTOMATED (BEAKER) (test B POSITIVE code = 2260) Ab Scrn (test code = 890-4) NEGATIVE [facility] HospitalAPTT2021 05:20:00 Test Item Value Reference Range Interpretation Comments PARTIAL THROMBOPLASTIN TIME 111.9 seconds 22.5-36.0 H (BEAKER) (test code = 760) Patient on hep drippingComprehensive metabolic [id number] 05:17:00 Test Item Value Reference Range Interpretation Comments Protein, Total 6.7 See_Comment [Automated (test code = message] The 2885-2) system which generated this result transmit [place] reference range : 6.0 - 8.3 gm/dL . The reference range was not u sed to interpret th is result as normal/abnormal . Albumin (test code 3.6 g/dL 3.5-5.0 = 81515-3) Alkaline 102 U/L 40-150 Phosphatase (test code = 6768-6) Total Bilirubin 0.4 mg/dL 0.2-1.2 (test code = 1974-2) Sodium (test code = 138 meq/L 867-414 4569-2) Potassium (test 4.0 meq/L 3.5-5.1 code = 2823-3) Chloride (test code 102 meq/L 98-107 = 2075-0) CO2 (test code = 24 meq/L 22-29 2027-9) BUN (test code = 16 mg/dL 7-21 3094-0) Creatinine (test 0.91 mg/dL 0.57-1.25 code = 2160-0) Glucose (test code 103 mg/dL 70-105 = 2345-7) Calcium (test code 9.2 mg/dL 8.4-10.2 = 99449-8) AST (test code = 29 U/L 5-34 1920-8) ALT (test code = 24 U/L 6-55 1742-6) EGFR (test code = 79 mL/min/1.73 [place] [address]-0) NOT ACCURATE CREATININE CLEARANCE IN PREDICTING GLOMERULAR FILTRATION RATE . ESTIMATED GFR I S NOT APPLICABLE FOR DIALYSIS PATIEN TS. GRABIEL (test code = Watershed Manager ID - DB GRABIEL) [facility] HospitalLipid [id number] 05:17:00 Test Item Value Reference Range Interpretation Comments Triglycerides (test 90 mg/dL code = 2571-8) Cholesterol (test code 171 mg/dL = 3-3) HDL (test code = 39 mg/dL 9) LDL Calculated (test 114 mg/dL code = 22684-6) GRABIEL (test code = GRABIEL) Triglyceride Reference Range: Low Risk <150 Borderline 150-199 High Risk 200-499 Very High Risk >=500 Cholesterol Reference Range: Low Risk <200 Borderline 200-239 High Risk >240 HDL Cholesterol Reference Range: Low Risk >=60 High Risk <40 LDL Cholesterol Reference Range: Optimal <100 Near Optimal 100-129 Borderline 130-159 High 160-189 Very High >=190 Watershed Manager ID - DB [facility] HospitalComprehensive metabolic [id number] 05:17:00 Test Item Value Reference Range Interpretation Comments Protein, Total 6.7 See_Comment [Automated (test code = message] The 9155-2) system which generated this result transmit [place] reference range : 6.0 - 8.3 gm/dL . The reference range was not u sed to interpret th is result as normal/abnormal . Albumin (test code 3.6 g/dL 3.5-5.0 = 13728-1) Alkaline 102 U/L 40-150 Phosphatase (test code = 6768-6) Total Bilirubin 0.4 mg/dL 0.2-1.2 (test code = 1974-2) Sodium (test code = 138 meq/L 272-862 1246-2) Potassium (test 4.0 meq/L 3.5-5.1 code = 2823-3) Chloride (test code 102 meq/L 98-107 = 2075-0) CO2 (test code = 24 meq/L 22-29 2027-9) BUN (test code = 16 mg/dL 7-21 3094-0) Creatinine (test 0.91 mg/dL 0.57-1.25 code = 2160-0) Glucose (test code 103 mg/dL 70-105 = 2345-7) Calcium (test code 9.2 mg/dL 8.4-10.2 = 76804-8) AST (test code = 29 U/L 5-34 1920-8) ALT (test code = 24 U/L 6-55 1742-6) EGFR (test code = 79 mL/min/1.73 [place] [address]-7) NOT ACCURATE CREATININE CLEARANCE IN PREDICTING GLOMERULAR FILTRATION RATE . ESTIMATED GFR I S NOT APPLICABLE FOR DIALYSIS PATIEN TS. GRABIEL (test code = Watershed Manager ID - DB GRABIEL) [facility] HospitalLipid [id number] 05:17:00 Test Item Value Reference Range Interpretation Comments Triglycerides (test 90 mg/dL code = 2571-8) Cholesterol (test code 171 mg/dL = 2093-3) HDL (test code = 39 mg/dL 2084-10) LDL Calculated (test 114 mg/dL code = 10460-6) GRABIEL (test code = GRABIEL) Triglyceride Reference Range: Low Risk <150 Borderline 150-199 High Risk 200-499 Very High Risk >=500 Cholesterol Reference Range: Low Risk <200 Borderline 200-239 High Risk >240 HDL Cholesterol Reference Range: Low Risk >=60 High Risk <40 LDL Cholesterol Reference Range: Optimal <100 Near Optimal 100-129 Borderline 130-159 High 160-189 Very High >=190 Watershed Manager ID - DB [facility] HospitalComprehensive metabolic [id number] 05:17:00 Test Item Value Reference Range Interpretation Comments Protein, Total 6.7 See_Comment [Automated (test code = message] The 2885-2) system which generated this result transmit [place] reference range : 6.0 - 8.3 gm/dL . The reference range was not u sed to interpret th is result as normal/abnormal . Albumin (test code 3.6 g/dL 3.5-5 = 77011-5) Alkaline 102 U/L 40-150 Phosphatase (test code = 6768-6) Total Bilirubin 0.4 mg/dL 0.2-1.2 (test code = 1975-2) Sodium (test code = 138 meq/L 774-880 8352-2) Potassium (test 4.0 meq/L 3.5-5.1 code = 2823-3) Chloride (test code 102 meq/L 98-107 = 2075-0) CO2 (test code = 24 meq/L -29 2027-10) BUN (test code = 16 mg/dL 7- 3094-0) Creatinine (test 0.91 mg/dL 0.57-1.25 code = 2160-0) Glucose (test code 103 mg/dL 70-105 = 2345-7) Calcium (test code 9.2 mg/dL 8.4-10.2 = 35109-2) AST (test code = 29 U/L 5-34 1919-8) ALT (test code = 24 U/L 6-55 1742-6) EGFR (test code = 79 mL/min/1.73 [place] [address]-1) NOT ACCURATE CREATININE CLEARANCE IN PREDICTING GLOMERULAR FILTRATION RATE . ESTIMATED GFR I S NOT APPLICABLE FOR DIALYSIS PATIEN GRABIEL (test code = Watershed Manager ID - DB GRABIEL) [facility] HospitalLipid [id number] 05:17:00 Test Item Value Reference Range Interpretation Comments Triglycerides (test 90 mg/dL code = 2571-8) Cholesterol (test code 171 mg/dL = 2093-3) HDL (test code = 39 mg/dL 2084-10) LDL Calculated (test 114 mg/dL code = 53507-3) GRABIEL (test code = GRABIEL) Triglyceride Reference Range: Low Risk <150 Borderline 150-199 High Risk 200-499 Very High Risk >=500 Cholesterol Reference Range: Low Risk <200 Borderline 200-239 High Risk >240 HDL Cholesterol Reference Range: Low Risk >=60 High Risk <40 LDL Cholesterol Reference Range: Optimal <100 Near Optimal 100-129 Borderline 130-159 High 160-189 Very High >=190 Watershed Manager ID - DB [facility] HospitalCOMPREHENSIVE METABOLIC [id number] 05:17:00 Test Item Value Reference Range Interpretation [...] S NOT APPLICABLE FOR DIALYSIS PATIEN TS. Watershed Manager ID - DBLIPID [id number] 05:17:00 Test Item Value Reference Range Interpretation Comments TRIGLYCERIDES (BEAKER) (test code = 90 mg/dL 540) CHOLESTEROL (BEAKER) (test code = 171 mg/dL 631) HDL CHOLESTEROL (BEAKER) (test code 39 mg/dL = 976) LDL CHOLESTEROL CALCULATED (AKER) 114 mg/dL (test code = 633) Triglyceride Reference Range: Low Risk <150 Borderline 150-199 High Risk 200-499 Very High Risk >=500Cholesterol Reference Range: Low Risk <200 Borderline 200-239 High Risk >240HDL Cholesterol Reference Range: Low Risk >=60 High Risk <40LDL Cholesterol Reference Range: Optimal <100 Near Optimal 100-129 Borderline 130-159 High 160-189 Very High >=190 Watershed Manager ID - DBB-type Natriuretic Factor (BNP)2020-09-26 05:16:00 Test Item Value Reference Range Interpretation Comments BNP (test code = 98036-0) 686 pg/mL 0-100 H GRABIEL (test code = GRABIEL) Watershed Manager ID - DB Lab Interpretation (test Abnormal code = 81393-3) [facility] HospitalB[facility] Natri[facility] Factor (BNP)2020-09-26 05:16:00 Test Item Value Reference Range Interpretation Comments BNP (test code = 48269-4) 686 pg/mL 0-100 H GRABIEL (test code = GRABIEL) Watershed Manager ID - DB Lab Interpretation (test Abnormal code = 99492-3) [facility] HospitalB[facility] Natriuretic Factor (BNP)2020-09-26 05:16:00 Test Item Value Reference Range Interpretation Comments BNP (test code = 14039-7) 686 pg/mL 0-100 H GRABIEL (test code = GRABIEL) Watershed Manager ID - DB Lab Interpretation (test Abnormal code = 68535-0) [facility] HospitalB-TYPE NATRIURETIC FACTOR (BNP)2020-09-26 05:16:00 Test Item Value Reference Range Interpretation Comments B-TYPE NATRIURETIC PEPTIDE (BEAKER) 686 pg/mL 0-100 H (test code = 700) Watershed Manager ID - DBHigh Sensitivity Troponin [id number] 05:14:00 Test Item Value Reference Range Interpretation Comments Troponin I HS 175 pg/ml See_Comment H [Automated (test code = message] The 11000-2) system which generated this result transmitted reference range : <=35. The reference range was not used to interpret this result as normal/abnormal . GRABIEL (test code = Watershed Manager ID - GRABIEL) DBThe TOWER EQUIPMENT INSTALLER STAT High Sensitivity Troponin-I results should be used in conjunction with other diagnostic information such as ECG, clinical observations and information, and patient symptoms to aid in the diagnosis of HI. Lab Interpretation Abnormal (test code = 92468-0) [facility] HospitalHigh Sensitivity Troponin [id number] 05:14:00 Test Item Value Reference Range Interpretation Comments Troponin I HS 175 pg/ml See_Comment H [Automated (test code = message] The 24319-7) system which generated this result transmitted reference range : <=35. The reference range was not used to interpret this result as normal/abnormal . GRABIEL (test code = Watershed Manager ID - GRABIEL) DBThe TOWER EQUIPMENT INSTALLER STAT High Sensitivity Troponin-I results should be used in conjunction with other diagnostic information such as ECG, clinical observations and information, and patient symptoms to aid in the diagnosis of HI. Lab Interpretation Abnormal (test code = 78284-3) [facility] HospitalHigh Sensitivity Troponin [id number] 05:14:00 Test Item Value Reference Range Interpretation Comments Troponin I HS 175 pg/ml See_Comment H [Automated (test code = message] The 70790-1) system which generated this result transmitted reference range : <=35. The reference range was not used to interpret this result as normal/abnormal . GRABIEL (test code = Watershed Manager ID - GRABIEL) DBThe TOWER EQUIPMENT INSTALLER STAT High Sensitivity Troponin-I results should be used in conjunction with other diagnostic information such as ECG, clinical observations and information, and patient symptoms to aid in the diagnosis of HI. Lab Interpretation Abnormal (test code = 35257-7) [facility] HospitalHIGH SENSITIVITY TROPONIN [id number] 05:14:00 Test Item Value Reference Range Interpretation Comments HIGH SENSITIVITY 175 pg/ml See_Comment H [Automated message] TROPONIN I (test code The sy stem which = 2904318) generated this result transmitted ref erence range: <=35. Th e reference range was not used to int erpret this result as normal/abnormal . Watershed Manager ID - DBThe TOWER EQUIPMENT INSTALLER STAT High Sensitivity Troponin-I results should be used in conjunctionwith other diagnostic information such as ECG, clinical observations and information, and patient symptoms to aid in the diagnosis of HI.Prothrombin time/[id number] 05:07:00 Test Item Value Reference Interpretation Comments [...] valves. Lab Interpretation Abnormal (test code = 50271-2) [facility] HospitalProthrombin time/[id number] 05:07:00 Test Item Value Reference Interpretation Comments [...] valves. Lab Interpretation Abnormal (test code = 11465-2) [facility] HospitalProthrombin time/[id number] 05:07:00 Test Item Value Reference Interpretation Comments Range Protime (test code = 15.6 See_Comment H [Autom ated 1942-2) message] The system which generated this result transmitted reference range : 11.9 - 14.2 seconds. The reference range was not used to interpret this result as normal/abnormal . INR (test code = 1.26 See_Comment [Automated 2311-6) message] The system which generated this result [...] valves. Lab Interpretation Abnormal (test code = 56803-5) [facility] HospitalPROTHROMBIN TIME/[id number] 05:07:00 Test Item Value Reference Range Interpretation Comments PROTIME (BEAKER) 15.6 seconds 11.9-14.2 H (test code = 759) INR (BEAKER) (test 1.26 See_Comment [Automat ed message] code = 370) The system [employer] generated this result transmitted ref erence range: [...] 4.1 See_Comment [A utomated message] The system [employer] generated this result transmitted ref erence range: 3.5 - 10 .5 K/L. The refe rence range was not u sed to interpret this result as normal/abnor mal. RBC (test code = 789-8) 3.65 See_Comment L [Au tomated message] The system [employer] generated this result transmitted ref erence range: 4.63 - 6 .08 M/L. The refe rence range was not u sed to interpret this result as normal/abnor mal. MCHC (test code = 786-4) 31.2 See_Comment L [A utomated message] The system [employer] generated this result transmitted ref erence range: [...] L [Aut omated message] 777-3) The system [employer] generated this result transmitted ref erence range: 150 - 45 0 K/CU MM. The referen ce range was not u sed to interpret this result as normal/abnor mal. MPV (test code = 10.3 fL 9.4-12.4 61190-5) nRBC (test code = 413) 0 See_Comment [Aut omated message] The system [employer] generated this result transmitted ref erence range: [...] See_Comment [Aut omated message] 670) The system [employer] generated this result transmitted ref erence range: 1.78 - 5 .38 K/L. The refe rence range was not u sed to interpret this result as normal/abnor mal. # Lymphs (test code = 1.01 See_Comment L [Auto mated message] 414) The system [employer] generated this result transmitted ref erence range: 1.32 - 3 .57 K/L. The refe rence range was not u sed to interpret this result as normal/abnor mal. # Monos (test code = 0.44 See_Comment [Autom ated message] 415) The system [employer] generated this result transmitted ref erence range: 0.30 - 0 .82 K/L. The refe rence range was not u sed to interpret this result as normal/abnor mal. # Eos (test code = 416) 0.16 See_Comment [Au tomated message] The system [employer] generated this result transmitted ref erence range: 0.04 - 0 .54 K/L. The refe rence range was not u sed to interpret this result as normal/abnor mal. # Baso (test code = 417) 0.02 See_Comment [A utomated message] The system [employer] generated this result transmitted ref erence range: 0.01 - 0 .08 K/L. The refe rence range was not u sed to interpret this result as normal/abnor mal. Immature 0 % 0-1 Granulocytes-Relative (test code = 2801) Lab Interpretation (test Abnormal code = 41907-6) [facility] with platelet count + automated [id number] 04:49:00 Test Item Value Reference Range Interpretation Comments WBC (test code = 6690-2) 4.1 See_Comment [A utomated message] The system [employer] generated this result transmitted ref erence range: 3.5 - 10 .5 K/L. The refe rence range was not u sed to interpret this result as normal/abnor mal. RBC (test code = 789-8) 3.65 See_Comment L [Au tomated message] The system [employer] generated this result transmitted ref erence range: 4.63 - 6 .08 M/L. The refe rence range was not u sed to interpret this result as normal/abnor mal. MCHC (test code = 786-4) 31.2 See_Comment L [A utomated message] The system [employer] generated this result transmitted ref erence range: 32.3 - 3 6.5 GM/DL. The refe rence range was not u sed to interpret this result as normal/abnor mal. Hematocrit (test code = 34.6 % 40.1-51.0 L 4544-3) MCV (test code = 787-2) 94.8 fL 79.0-92.2 H MCH (test code = 785-6) 29.6 pg 25.7-32.2 RDW (test code = 788-0) 15.3 % 11.6-14.4 H Platelets (test code = 144 See_Comment L [Aut omated message] 777-3) The system [employer] generated this result transmitted ref erence range: 150 - 45 0 K/CU MM. The referen ce range was not u sed to interpret this result as normal/abnor mal. MPV (test code = 10.3 fL 9.4-12.4 64600-5) nRBC (test code = 413) 0 See_Comment [Aut omated message] The system [employer] generated this result transmitted ref erence range: [...] See_Comment [Aut omated message] 670) The system [employer] generated this result transmitted ref erence range: 1.78 - 5 .38 K/L. The refe rence range was not u sed to interpret this result as normal/abnor mal. # Lymphs (test code = 1.01 See_Comment L [Auto mated message] 414) The system [employer] generated this result transmitted ref erence range: 1.32 - 3 .57 K/L. The refe rence range was not u sed to interpret this result as normal/abnor mal. # Monos (test code = 0.44 See_Comment [Autom ated message] 415) The system [employer] generated this result transmitted ref erence range: 0.30 - 0 .82 K/L. The refe rence range was not u sed to interpret this result as normal/abnor mal. # Eos (test code = 416) 0.16 See_Comment [Au tomated message] The system [employer] generated this result transmitted ref erence range: 0.04 - 0 .54 K/L. The refe rence range was not u sed to interpret this result as normal/abnor mal. # Baso (test code = 417) 0.02 See_Comment [A utomated message] The system [employer] generated this result transmitted ref erence range: 0.01 - 0 .08 K/L. The refe rence range was not u sed to interpret this result as normal/abnor mal. Immature 0 % 0-1 Granulocytes-Relative (test code = 2801) Lab Interpretation (test Abnormal code = 08043-7) [facility] with platelet count + automated [id number] 04:49:00 Test Item Value Reference Range Interpretation Comments WBC (test code = 6690-2) 4.1 See_Comment [A utomated message] The system [employer] generated this result transmitted ref erence range: 3.5 - 10 .5 K/L. The refe rence range was not u sed to interpret this result as normal/abnor mal. RBC (test code = 789-8) 3.65 See_Comment L [Au tomated message] The system [employer] generated this result transmitted ref erence range: 4.63 - 6 .08 M/L. The refe rence range was not u sed to interpret this result as normal/abnor mal. MCHC (test code = 786-4) 31.2 See_Comment L [A utomated message] The system [employer] generated this result transmitted ref erence range: 32.3 - 3 6.5 GM/DL. The refe rence range was not u sed to interpret this result as normal/abnor mal. Hematocrit (test code = 34.6 % 40.1-51.0 L 4544-3) MCV (test code = 787-2) 94.8 fL 79.0-92.2 H MCH (test code = 785-6) 29.6 pg 25.7-32.2 RDW (test code = 788-0) 15.3 % 11.6-14.4 H Platelets (test code = 144 See_Comment L [Aut omated message] 777-3) The system [employer] generated this result transmitted ref erence range: 150 - 45 0 K/CU MM. The referen ce range was not u sed to interpret this result as normal/abnor mal. MPV (test code = 10.3 fL 9.4-12.4 34157-9) nRBC (test code = 413) 0 See_Comment [Aut omated message] The system [employer] generated this result transmitted ref erence range: [...] See_Comment [Aut omated message] 670) The system [employer] generated this result transmitted ref erence range: 1.78 - 5 .38 K/L. The refe rence range was not u sed to interpret this result as normal/abnor mal. # Lymphs (test code = 1.01 See_Comment L [Auto mated message] 414) The system [employer] generated this result transmitted ref erence range: 1.32 - 3 .57 K/L. The refe rence range was not u sed to interpret this result as normal/abnor mal. # Monos (test code = 0.44 See_Comment [Autom ated message] 415) The system [employer] generated this result transmitted ref erence range: 0.30 - 0 .82 K/L. The refe rence range was not u sed to interpret this result as normal/abnor mal. # Eos (test code = 416) 0.16 See_Comment [Au tomated message] The system [employer] generated this result transmitted ref erence range: 0.04 - 0 .54 K/L. The refe rence range was not u sed to interpret this result as normal/abnor mal. # Baso (test code = 417) 0.02 See_Comment [A utomated message] The system [employer] generated this result transmitted ref erence range: 0.01 - 0 .08 K/L. The refe rence range was not u sed to interpret this result as normal/abnor mal. Immature 0 % 0-1 Granulocytes-Relative (test code = 2801) Lab Interpretation (test Abnormal code = 81777-9) [facility] W/PLT COUNT & AUTO [id number] 04:49:00 Test Item Value Reference Range Interpretation [...] Not Detected Not Detected (test code = 46114-6) GRABIEL (test code = GRABIEL) ID NOW COVID-19 Assay is an isothermal nucleic acid amplification test intended for the qualitative detection of nucleic acid from SARS-CoV-2 viral RNA in nasopharyngeal ([employer]) specimens. It is used under Emergency Use [...] indicated. Lab Interpretation Normal (test code = 64089-6) [facility] WITH [id number] 19:54:17 Test Item Value Reference Range Interpretation Comments WBC (test code = See_Comment [Automated 6690-2) message] The sy stem which generated this result transmitted reference range : 4.20 - 10.70 10*3/?L. The reference range was not used to interpret this result as normal/abnormal . RBC (test code = See_Comment L [Automated 789-8) message] The sy stem which generated this [...] (test code = 52.3 fL 38.5-51.6 H 46885-4) RDW-CV (test code = 15.1 % 12.1-15.4 788-0) PLT (test code = See_Comment [Automated 777-3) message] The sy stem which generated this result transmitted reference range : 150 - 328 10*3/ ?L. The reference r sheryl was not used to interpret this result as normal/abnormal . MPV (test code = 10.2 fL 9.8-13.0 37132-0) NRBC/100 WBC (test See_Comment [Automat ed code = [id number]) message] The system which generated this result transmitted reference range : 0.0 - 10.0 /100 WBCs. The refer ence range was not u sed to interpret th is result as normal/abnormal . NRBC x10^3 (test code <0.01 See_Comment [Auto mated = [id number]) message] The s ystem which generated this result transmitted reference range : 10*3/?L. The reference range was not used to interpret this result as normal/abnormal . GRAN MAT (NEUT) % 59.2 % (test code = 770-8) IMM GRAN % (test code 0.40 % = 4891394225) LYMPH % (test code = 26.7 % 736-9) MONO % (test code = 10.6 % 5905-5) EOS % (test code = 2.7 % 713-8) BASO % (test code = 0.4 % 706-2) GRAN MAT x10^3(ANC) 2.63 10*3/uL 1.99-6.95 (test code = 8647078588) IMM GRAN x10^3 (test <0.03 0.00-0.06 code = 2471393346) LYMPH x10^3 (test code 1.19 10*3/uL 1.09-3.23 = 731-0) MONO x10^3 (test code 0.47 10*3/uL 0.36-1.02 = 742-7) EOS x10^3 (test code = 0.12 10*3/uL 0.06-0.53 711-2) BASO x10^3 (test code <0.03 0.01-0.09 = 704-7) Lab Interpretation Abnormal (test code = 50990-5) [facility] AND [id number] 00:22:00 Test Item Value Reference Range Interpretation Comments UA Color (test code = Yellow *NA*(01/15/19 UA Color) 6:22 PM) [facility] AND [id number] 00:22:00 Test Item Value Reference Range Interpretation Comments UA Turbidity (test code = Clear (01/15/19 6:22 UA Turbidity) PM) [facility] AND [id number] 00:22:00 Test Item Value Reference Range Interpretation Comments UA Spec Grav (test code = UA Spec 1.023 1 Grav) [facility] AND [id number] 00:22:00 Test Item Value Reference Range Interpretation Comments UA pH (test code = UA pH) 5.0 1 5.0-8.0 [facility] AND [id number] 00:22:00 Test Item Value Reference Range Interpretation Comments UA Protein (test code Negative (01/15/19 6:22 = UA Protein) PM) [facility] AND [id number] 00:22:00 Test Item Value Reference Range Interpretation Comments UA Glucose (test code Negative *NA*(01/15/19 = UA Glucose) 6:22 PM) [facility] AND [id number] 00:22:00 Test Item Value Reference Range Interpretation Comments UA Ketones (test code = UA Ketones) 20 mg/dL [facility] AND [id number] 00:22:00 Test Item Value Reference Range Interpretation Comments UA Bili (test code = Negative *NA*(01/15/19 UA Bili) 6:22 PM) [facility] AND [id number] 00:22:00 Test Item Value Reference Range Interpretation Comments UA Blood (test code = Negative (01/15/19 6:22 UA Blood) PM) [facility] AND [id number] 00:22:00 Test Item Value Reference Range Interpretation Comments UA Urobilinogen (test code = UA <=1.0 mg/dL 0.1-1.0 Urobilinogen) [facility] AND [id number] 00:22:00 Test Item Value Reference Range Interpretation Comments UA Nitrite (test code Negative (01/15/19 6:22 = UA Nitrite) PM) [facility] AND [id number] 00:22:00 Test Item Value Reference Range Interpretation Comments UA Leuk Est (test Negative (01/15/19 6:22 code = UA Leuk Est) PM) [facility] AND [id number] 00:22:00 Test Item Value Reference Range Interpretation Comments UA Sq Epi (test code = None Seen (01/15/19 UA Sq Epi) 6:22 PM) [facility] AND [id number] 00:22:00 Test Item Value Reference Range Interpretation Comments UA WBC (test code = 1 See_Comment [Automa valentina message] The UA WBC) system which ge nerated this result transmit valentina reference range : <=5. The reference range was not used to interpr et this result as abbey l/abnormal. [facility] AND [id number] 00:22:00 Test Item Value Reference Range Interpretation Comments UA RBC (test code = 1 See_Comment [Automa valentina message] The UA RBC) system which ge nerated this result transmit valentina reference range : <=2. The reference range was not used to interpr et this result as abbey l/abnormal. [facility] [id number] 00:22:00 Test Item Value Reference Range Interpretation Comments UA Mucus (test code = UA Mucus) Few /LPF [facility] [id number] 10:48:00 Test Item Value Reference Range Interpretation Comments Magnesium Lvl (test code = Magnesium 2.3 1.8-2.4 Lvl) [facility] [id number] 10:48:00 Test Item Value Reference Range Interpretation Comments Phosphorus (test code = Phosphorus) 3.0 2.5-4.5 [facility]XFPEOSVBBNJO5206-01-51 10:48:00 Test Item Value Reference Range Interpretation Comments AGAP (test code = AGAP) 10.3 10.0-20.0 [facility]KuaqtpvETATNJSYRUJE8679-81-82 10:48:00 Test Item Value Reference Range Interpretation Comments Glucose Lvl (test code = Glucose Lvl) 104 70-99 [facility]RzdfxiuGSSITXPEKUBM4053-85-15 10:48:00 Test Item Value Reference Range Interpretation Comments BUN (test code = BUN) 15 7-22 [facility] HospitalTrpekeeAWZQGWYBUWHD8784-03-01 10:48:00 Test Item Value Reference Range Interpretation Comments Creatinine Lvl (test code = Creatinine 0.69 0.50-1.40 Lvl) [facility]LxfbxiiORELLXGVDNSH3744-38-02 10:48:00 Test Item Value Reference Range Interpretation Comments Sodium Lvl (test code = Sodium Lvl) 138 135-145 [facility] HospitalFwzblrqZEAJKGOZVAZW0871-54-02 10:48:00 Test Item Value Reference Range Interpretation Comments Potassium Lvl (test code = Potassium 4.3 3.5-5.1 Lvl) [facility] HospitalTwjzfsrVMKQYEMHCDKQ2101-14-48 10:48:00 Test Item Value Reference Range Interpretation Comments Chloride Lvl (test code = Chloride Lvl) 106 95-109 [facility] HospitalHbrelitQVGNUMECMDCW8583-05-68 10:48:00 Test Item Value Reference Range Interpretation Comments CO2 (test code = CO2) 26 24-32 [facility] HospitalSmkpuwnJBFZTQAVHKYF5247-42-79 10:48:00 Test Item Value Reference Range Interpretation Comments Calcium Lvl (test code = Calcium Lvl) 8.9 8.5-10.5 [facility]tayihxSLFEIRTOEWYX6917-27-23 10:48:00 Test Item Value Reference Range Interpretation Comments eGFR (test code = eGFR) 87 [facility]anxokZMYPDGZFKB9786-09-39 10:48:00 Test Item Value Reference Range Interpretation Comments WBC (test code = WBC) 2.6 3.7-10.4 [facility]XedpiatSTGNPOGBWI6937-21-81 10:48:00 Test Item Value Reference Range Interpretation Comments RBC (test code = RBC) 3.79 4.70-6.10 [facility]LihwpsjPFLERGLYCX6987-72-45 10:48:00 Test Item Value Reference Range Interpretation Comments Hgb (test code = Hgb) 11.1 14.0-18.0 [facility]FdurxouUCVEHCVWIO3918-04-41 10:48:00 Test Item Value Reference Range Interpretation Comments Hct (test code = Hct) 34.9 42.0-54.0 [facility]OjgudljVPTGJZCQCW5202-54-02 10:48:00 Test Item Value Reference Range Interpretation Comments MCV (test code = MCV) 92.0 80.0-94.0 [facility]LmscmjePHKNCMNWXB5006-15-68 10:48:00 Test Item Value Reference Range Interpretation Comments MCH (test code = MCH) 29.3 pg 27.0-31.0 [facility]ZzhbcfdZCDWXKLBCL8468-95-43 10:48:00 Test Item Value Reference Range Interpretation Comments MCHC (test code = MCHC) 31.8 32.0-36.0 [facility] HospitalPqtwbnzNQARPDEXEH0861-10-34 10:48:00 Test Item Value Reference Range Interpretation Comments RDW (test code = RDW) 16.5 11.5-14.5 [facility]CxglxlaIIJIVGQYHB0102-09-33 10:48:00 Test Item Value Reference Range Interpretation Comments Platelet (test code = Platelet) 148 133-450 [facility] HospitalYidteocNFGXOTYLCA2097-49-77 10:48:00 Test Item Value Reference Range Interpretation Comments MPV (test code = MPV) 8.3 7.4-10.4 [facility]ClmdxaqJXMVIESOZN9781-43-28 10:48:00 Test Item Value Reference Range Interpretation Comments Segs (test code = Segs) 66.8 45.0-75.0 [facility] HospitalXzjhivfPEFLPNKKJE9403-25-86 10:48:00 Test Item Value Reference Range Interpretation Comments Lymphocytes (test code = Lymphocytes) 12.6 20.0-40.0 [facility] HospitalPllppprAFTHBLNELE1267-23-69 10:48:00 Test Item Value Reference Range Interpretation Comments Monocytes (test code = Monocytes) 8.4 2.0-12.0 [facility] HospitalIyheydvPGAWVBFDUB8696-81-50 10:48:00 Test Item Value Reference Range Interpretation Comments Eosinophils (test code = 11.5 See_Comment [A utomated message] The Eosinophils) system which ge nerated this result tra nsmitted reference range : <=4.0. The reference r sheryl was not used to int erpret this result as normal/abnormal . [facility] HospitalTqxsokvTAJRESVDRU4577-44-71 10:48:00 Test Item Value Reference Range Interpretation Comments Basophils (test code = 0.7 See_Comment [Aut omated message] The Basophils) system which ge nerated this result tra nsmitted reference range : <=1.0. The reference r sheryl was not used to int erpret this result as normal/abnormal . [facility] HospitalOfemqefBGDQFRYELN2808-02-47 10:48:00 Test Item Value Reference Range Interpretation Comments Neutrophils # (test code = Neutrophils 1.7 1.5-8.1 #) [facility] HospitalGaiwgahAKMCMIDCWV4161-74-68 10:48:00 Test Item Value Reference Range Interpretation Comments Lymphocytes # (test code = Lymphocytes 0.3 1.0-5.5 #) [facility] HospitalQyikorlWVCOMSQJKT2862-34-66 10:48:00 Test Item Value Reference Range Interpretation Comments Monocytes # (test code 0.2 See_Comment [Aut omated message] The = Monocytes #) system which generated this result tra nsmitted reference range : <=0.8. The reference r sheryl was not used to int erpret this result as normal/abnormal . [facility] HospitalXnwjxtzLSUSLTCDFU4415-21-66 10:48:00 Test Item Value Reference Range Interpretation Comments Eosinophils # (test code 0.3 See_Comment [A utomated message] The = Eosinophils #) system whic h generated this result tra nsmitted reference range : <=0.5. The reference r sheryl was not used to int erpret this result as normal/abnormal . [facility]2019-11-18 10:15:00 Test Item Value Reference Range Interpretation Comments Magnesium Lvl (test code = Magnesium 2.0 1.8-2.4 Lvl) [facility]2019-11-18 10:15:00 Test Item Value Reference Range Interpretation Comments Phosphorus (test code = Phosphorus) 3.6 2.5-4.5 [facility]2019-11-18 10:15:00 Test Item Value Reference Range Interpretation Comments Glucose Lvl (test code = Glucose Lvl) 127 70-99 [facility]2019-11-18 10:15:00 Test Item Value Reference Range Interpretation Comments BUN (test code = BUN) 9 7-22 [facility]2019-11-18 10:15:00 Test Item Value Reference Range Interpretation Comments Creatinine Lvl (test code = Creatinine 0.71 0.50-1.40 Lvl) [facility]2019-11-18 10:15:00 Test Item Value Reference Range Interpretation Comments Sodium Lvl (test code = Sodium Lvl) 139 135-145 [facility]2019-11-18 10:15:00 Test Item Value Reference Range Interpretation Comments Potassium Lvl (test code = Potassium 4.2 3.5-5.1 Lvl) [facility]2019-11-18 10:15:00 Test Item Value Reference Range Interpretation Comments Chloride Lvl (test code = Chloride Lvl) 106 95-109 [facility]2019-11-18 10:15:00 Test Item Value Reference Range Interpretation Comments CO2 (test code = CO2) 27 24-32 [facility]2019-11-18 10:15:00 Test Item Value Reference Range Interpretation Comments AGAP (test code = AGAP) 10.2 10.0-20.0 [facility]2019-11-18 10:15:00 Test Item Value Reference Range Interpretation Comments Calcium Lvl (test code = Calcium Lvl) 8.9 8.5-10.5 [facility]2019-11-18 10:15:00 Test Item Value Reference Range Interpretation Comments eGFR (test code = eGFR) 86 [facility] HospitalSkvohrcOXAUFAPDDZ0974-80-11 10:15:00 Test Item Value Reference Range Interpretation Comments Segs (test code = Segs) 63.6 45.0-75.0 [place] [id number] 10:15:00 Test Item Value Reference Range Interpretation Comments Lymphocytes (test code = Lymphocytes) 19.5 20.0-40.0 [facility] HospitalArpvfayNXCJJSXNXC3360-27-42 10:15:00 Test Item Value Reference Range Interpretation Comments Monocytes (test code = Monocytes) 11.0 2.0-12.0 [facility] HospitalCtszsekPUJAGWGFAT9452-26-77 10:15:00 Test Item Value Reference Range Interpretation Comments Eosinophils (test code = 5.2 See_Comment [A utomated message] The Eosinophils) system which ge nerated this result tra nsmitted reference range : <=4.0. The reference r sheryl was not used to int erpret this result as normal/abnormal . [facility] HospitalWqjrfjmNNDLRULZAK9955-83-19 10:15:00 Test Item Value Reference Range Interpretation Comments Basophils (test code = 0.7 See_Comment [Aut omated message] The Basophils) system which ge nerated this result tra nsmitted reference range : <=1.0. The reference r sheryl was not used to int erpret this result as normal/abnormal . [facility] HospitalLuljhgeCNHMAOKVPG6059-66-04 10:15:00 Test Item Value Reference Range Interpretation Comments Neutrophils # (test code = Neutrophils 1.4 1.5-8.1 #) [facility] HospitalIiwjxgvBGUQGUZHDU0386-69-73 10:15:00 Test Item Value Reference Range Interpretation Comments Lymphocytes # (test code = Lymphocytes 0.4 1.0-5.5 #) [facility] HospitalAdcxoweTMGAJHSCMP6883-11-11 10:15:00 Test Item Value Reference Range Interpretation Comments Monocytes # (test code 0.2 See_Comment [Aut omated message] The = Monocytes #) system which generated this result tra nsmitted reference range : <=0.8. The reference r sheryl was not used to int erpret this result as normal/abnormal . [facility] HospitalFesryhqYEINVCKHNX9896-22-51 10:15:00 Test Item Value Reference Range Interpretation Comments Eosinophils # (test code 0.1 See_Comment [A utomated message] The = Eosinophils #) system whic h generated this result tra nsmitted reference range : <=0.5. The reference r sheryl was not used to int erpret this result as normal/abnormal . [facility] HospitalCgytlmhEJETMXMJWP1016-87-87 10:15:00 Test Item Value Reference Range Interpretation Comments WBC (test code = WBC) 2.2 3.7-10.4 [facility] HospitalXchhzveOZTWVMGGPB1451-23-48 10:15:00 Test Item Value Reference Range Interpretation Comments RBC (test code = RBC) 3.60 4.70-6.10 [facility] HospitalAtrqomrUUECXIHTXZ4881-94-02 10:15:00 Test Item Value Reference Range Interpretation Comments Hgb (test code = Hgb) 10.8 14.0-18.0 [facility] HospitalUibxvkqCYRGJNIDPM5636-58-93 10:15:00 Test Item Value Reference Range Interpretation Comments Hct (test code = Hct) 33.4 42.0-54.0 [facility] HospitalBmyoxceOWRFIDJBOH6421-61-60 10:15:00 Test Item Value Reference Range Interpretation Comments MCV (test code = MCV) 92.9 80.0-94.0 [facility] HospitalQnqhspnYQXDRPSYRA3782-72-55 10:15:00 Test Item Value Reference Range Interpretation Comments MCH (test code = MCH) 30.1 pg 27.0-31.0 [facility] HospitalXgnktjtRBBUTIZHIS8490-68-38 10:15:00 Test Item Value Reference Range Interpretation Comments MCHC (test code = MCHC) 32.4 32.0-36.0 [facility] HospitalRvvpevyBEVVDELKOW4144-21-47 10:15:00 Test Item Value Reference Range Interpretation Comments RDW (test code = RDW) 17.0 11.5-14.5 [facility] HospitalWzhnpjhNUQQXWLMRQ9687-65-63 10:15:00 Test Item Value Reference Range Interpretation Comments Platelet (test code = Platelet) 108 133-450 [facility] HospitalKpxrpdpTEKYWSGYEY9658-91-34 10:15:00 Test Item Value Reference Range Interpretation Comments MPV (test code = MPV) 8.0 7.4-10.4 [facility]2019-11-17 10:43:00 Test Item Value Reference Range Interpretation Comments Glucose Lvl (test code = Glucose Lvl) 141 70-99 [facility]2019-11-17 10:43:00 Test Item Value Reference Range Interpretation Comments BUN (test code = BUN) 7 7-22 [facility]2019-11-17 10:43:00 Test Item Value Reference Range Interpretation Comments Creatinine Lvl (test code = Creatinine 0.69 0.50-1.40 Lvl) [facility]2019-11-17 10:43:00 Test Item Value Reference Range Interpretation Comments Sodium Lvl (test code = Sodium Lvl) 134 135-145 [facility]2019-11-17 10:43:00 Test Item Value Reference Range Interpretation Comments Potassium Lvl (test code = Potassium 4.3 3.5-5.1 Lvl) [facility]2019-11-17 10:43:00 Test Item Value Reference Range Interpretation Comments Chloride Lvl (test code = Chloride Lvl) 101 95-109 [facility]2019-11-17 10:43:00 Test Item Value Reference Range Interpretation Comments CO2 (test code = CO2) 26 24-32 [facility]2019-11-17 10:43:00 Test Item Value Reference Range Interpretation Comments Calcium Lvl (test code = Calcium Lvl) 8.5 8.5-10.5 [facility]2019-11-17 10:43:00 Test Item Value Reference Range Interpretation Comments eGFR (test code = eGFR) 87 [facility]2019-11-17 10:43:00 Test Item Value Reference Range Interpretation Comments AGAP (test code = AGAP) 11.3 10.0-20.0 [facility]2019-11-17 10:43:00 Test Item Value Reference Range Interpretation Comments Magnesium Lvl (test code = Magnesium 1.9 1.8-2.4 Lvl) [facility]2019-11-17 10:43:00 Test Item Value Reference Range Interpretation Comments Phosphorus (test code = Phosphorus) 2.8 2.5-4.5 [facility] HospitalJopnesyHOJEBDOOLI2779-91-27 10:43:00 Test Item Value Reference Range Interpretation Comments WBC (test code = WBC) 3.7 3.7-10.4 [facility] HospitalEmrbshdLVWMNYHAZX3627-50-56 10:43:00 Test Item Value Reference Range Interpretation Comments RBC (test code = RBC) 3.68 4.70-6.10 [facility] HospitalUimdmtfKHZFRPNOYK6751-82-43 10:43:00 Test Item Value Reference Range Interpretation Comments Hgb (test code = Hgb) 11.0 14.0-18.0 [facility] HospitalIfftiplVVHSTNYCBA5020-76-68 10:43:00 Test Item Value Reference Range Interpretation Comments Hct (test code = Hct) 33.9 42.0-54.0 [facility] HospitalIvyxmgbNXIYPSYJHW8226-65-66 10:43:00 Test Item Value Reference Range Interpretation Comments MCV (test code = MCV) 92.1 80.0-94.0 [facility] HospitalSptsvynINLKTQSLEK3297-93-56 10:43:00 Test Item Value Reference Range Interpretation Comments MCH (test code = MCH) 30.0 pg 27.0-31.0 [facility] HospitalTnjakevZNHZRHSMNH9740-67-85 10:43:00 Test Item Value Reference Range Interpretation Comments MCHC (test code = MCHC) 32.6 32.0-36.0 [facility] HospitalPaxwccwLFDWVXJNCL6144-42-99 10:43:00 Test Item Value Reference Range Interpretation Comments RDW (test code = RDW) 16.7 11.5-14.5 [facility] HospitalPfwscvnGPCYTWIDFM7596-70-09 10:43:00 Test Item Value Reference Range Interpretation Comments Platelet (test code = Platelet) 131 133-450 [facility] HospitalPdevqgvEAJDYZAHYS0503-59-58 10:43:00 Test Item Value Reference Range Interpretation Comments MPV (test code = MPV) 8.2 7.4-10.4 [facility] HospitalPanvpegMVIKDEROBQ1097-47-75 10:43:00 Test Item Value Reference Range Interpretation Comments Segs (test code = Segs) 76.8 45.0-75.0 [facility] HospitalErfsozaTAJJRACRGV5810-21-54 10:43:00 Test Item Value Reference Range Interpretation Comments Lymphocytes (test code = Lymphocytes) 9.9 20.0-40.0 [facility] HospitalBjqkbgaUTWYLEULMX5550-99-64 10:43:00 Test Item Value Reference Range Interpretation Comments Monocytes (test code = Monocytes) 11.8 2.0-12.0 [facility] HospitalTxfzrciFFMFXHOUXD9949-66-31 10:43:00 Test Item Value Reference Range Interpretation Comments Eosinophils (test code = 1.2 See_Comment [A utomated message] The Eosinophils) system which ge nerated this result tra nsmitted reference range : <=4.0. The reference r sheryl was not used to int erpret this result as normal/abnormal . [facility] HospitalAqkfhfbTFEPASKZHY3474-29-68 10:43:00 Test Item Value Reference Range Interpretation Comments Basophils (test code = 0.3 See_Comment [Aut omated message] The Basophils) system which ge nerated this result tra nsmitted reference range : <=1.0. The reference r sheryl was not used to int erpret this result as normal/abnormal . [id number] 10:43:00 Test Item Value Reference Range Interpretation Comments Neutrophils # (test code = Neutrophils 2.8 1.5-8.1 #) [id number] 10:43:00 Test Item Value Reference Range Interpretation Comments Lymphocytes # (test code = Lymphocytes 0.4 1.0-5.5 #) [facility] [id number] 10:43:00 Test Item Value Reference Range Interpretation Comments Monocytes # (test code 0.4 See_Comment [Aut omated message] The = Monocytes #) system which generated this result tra nsmitted reference range : <=0.8. The reference r sheryl was not used to int erpret this result as normal/abnormal . [facility] - [id number] 09:33:00 Test Item Value Reference Range Interpretation Comments Source Strep (test code Urine *NA*(01/10/19 = Source Strep) 3:33 AM) [facility]CT[facility] - [id number] 09:33:00 Test Item Value Reference Range Interpretation Comments Strep pneumoniae Ag Negative (01/10/19 (test code = Strep 3:33 AM) pneumoniae Ag) [facility] [id number] 09:33:00 Test Item Value Reference Range Interpretation Comments UA Color (test code = Yellow *NA*(01/10/19 UA Color) 3:33 AM) [facility] [id number] 09:33:00 Test Item Value Reference Range Interpretation Comments UA Turbidity (test code = Clear (01/10/19 3:33 UA Turbidity) AM) [facility] [id number] 09:33:00 Test Item Value Reference Range Interpretation Comments UA Spec Grav (test code = UA Spec 1.014 1 Grav) [facility] [id number] 09:33:00 Test Item Value Reference Range Interpretation Comments UA pH (test code = UA pH) 5.0 1 5.0-8.0 [facility] [id number] 09:33:00 Test Item Value Reference Range Interpretation Comments UA Protein (test code Negative (01/10/19 3:33 = UA Protein) AM) [facility] [id number] 09:33:00 Test Item Value Reference Range Interpretation Comments UA Glucose (test code Negative *NA*(01/10/19 = UA Glucose) 3:33 AM) [facility] [id number] 09:33:00 Test Item Value Reference Range Interpretation Comments UA Ketones (test code = Trace *ABN*(01/10/19 UA Ketones) 3:33 AM) [facility] [id number] 09:33:00 Test Item Value Reference Range Interpretation Comments UA Bili (test code = Negative *NA*(01/10/19 UA Bili) 3:33 AM) [facility] [id number] 09:33:00 Test Item Value Reference Range Interpretation Comments UA Blood (test code = Negative (01/10/19 3:33 UA Blood) AM) [facility] [id number] 09:33:00 Test Item Value Reference Range Interpretation Comments UA Urobilinogen (test code = UA <=1.0 mg/dL 0.1-1.0 Urobilinogen) [facility] [id number] 09:33:00 Test Item Value Reference Range Interpretation Comments UA Nitrite (test code Negative (01/10/19 3:33 = UA Nitrite) AM) [facility] [id number] 09:33:00 Test Item Value Reference Range Interpretation Comments UA Leuk Est (test Negative (01/10/19 3:33 code = UA Leuk Est) AM) [facility] [id number] 09:33:00 Test Item Value Reference Range Interpretation Comments UA Sq Epi (test code = None Seen (01/10/19 UA Sq Epi) 3:33 AM) [facility] [id number] 09:33:00 Test Item Value Reference Range Interpretation Comments UA WBC (test code = no gt See_Comment [Automa valentina message] The UA WBC) system which ge nerated this result transmit valentina reference range : <=5. The reference range was not used to interpr et this result as abbey l/abnormal. [facility] [id number] 09:33:00 Test Item Value Reference Range Interpretation Comments UA RBC (test code = no gt See_Comment [Automa valentina message] The UA RBC) system which ge nerated this result transmit valentina reference range : <=2. The reference range was not used to interpr et this result as abbey l/abnormal. [facility] [id number] 09:33:00 Test Item Value Reference Range Interpretation Comments UA Mucus (test code = UA Mucus) Few /LPF [facility] - [id number] 07:15:00 Test Item Value Reference Range Interpretation Comments Influ A (test code = Negative (01/10/19 1:15 Influ A) AM) [facility] - [id number] 07:15:00 Test Item Value Reference Range Interpretation Comments Influ B (test code = Negative (01/10/19 1:15 Influ B) AM) [facility] SantiagoannCARDIAC [id number] 05:21:00 Test Item Value Reference Range Interpretation Comments Troponin-I (test code 0.09 See_Comment [Auto mated message] The = Troponin-I) system which g enerated this result transmit valentina reference range : <=0.40. The reference r sheryl was not used to interpr et this result as abbey l/abnormal. [facility] [id number] 05:21:00 Test Item Value Reference Range Interpretation Comments Procalcitonin Lvl <0.05 ng/mL See_Comment [Automate d message] (test code = The system whic h Procalcitonin Lvl) generated this result transmit valentina reference range : <=0.10. The reference range was not used to interpret this result as normal/abnormal . [facility] [id number] 05:21:00 Test Item Value Reference Range Interpretation Comments Total Protein (test code = Total 7.1 6.4-8.4 Protein) [facility]annCHEM [id number] 05:21:00 Test Item Value Reference Range Interpretation Comments Albumin Lvl (test code = Albumin Lvl) 3.1 3.5-5.0 [facility] [id number] 05:21:00 Test Item Value Reference Range Interpretation Comments ALT (test code = ALT) 27 See_Comment [Auto mated message] The system which ge nerated this result transmit valentina reference range : <=65. The reference range was not used to interpr et this result as abbey l/abnormal. [facility]2019-11-15 05:21:00 Test Item Value Reference Range Interpretation Comments AST (test code = AST) 27 See_Comment [Auto mated message] The system which ge nerated this result transmit valentina reference range : <=37. The reference range was not used to interpr et this result as abbey l/abnormal. [facility]2019-11-15 05:21:00 Test Item Value Reference Range Interpretation Comments Alk Phos (test code = Alk Phos) 136 39-136 [facility]2019-11-15 05:21:00 Test Item Value Reference Range Interpretation Comments Bili Total (test code = Bili Total) 0.5 0.2-1.3 [facility]2019-11-15 05:21:00 Test Item Value Reference Range Interpretation Comments B/C Ratio (test code = B/C Ratio) 17 1 6-25 [facility]2019-11-15 05:21:00 Test Item Value Reference Range Interpretation Comments Globulin (test code = Globulin) 4.0 2.7-4.2 [facility]2019-11-15 05:21:00 Test Item Value Reference Range Interpretation Comments A/G Ratio (test code = A/G Ratio) 0.8 1 0.7-1.6 [facility]2019-11-15 05:21:00 Test Item Value Reference Range Interpretation Comments Lactic Acid Lvl (test code = Lactic 0.9 0.5-2.2 Acid Lvl) [id number] 05:21:00 Test Item Value Reference Range Interpretation Comments INR (test code = INR) 1.08 1 0.85-1.17 [facility] [id number] 05:21:00 Test Item Value Reference Range Interpretation Comments PT (test code = PT) 13.8 s 12.0-14.7 [facility] [id number] 05:21:00 Test Item Value Reference Range Interpretation Comments PTT (test code = PTT) 23.3 s 22.9-35.8 [id number] 05:21:00 Test Item Value Reference Range Interpretation Comments Eosinophils # (test code 0.2 See_Comment [A utomated message] The = Eosinophils #) system ic h generated this result tra nsmitted reference range : <=0.5. The reference r sheryl was not used to int erpret this result as normal/abnormal . [facility]
[2021-04-11] MEDS ORDERED: METOPROLOL TARTRATE 5 MG/5 ML INJ IV ONE (15:13)
[2021-04-11 15:28] LABS: Hematocrit 25.5 % (39.6-49.0); Lymphocytes % 14.8 % (15.3-44.8); RBC Red Blood Cell Count 3.07 M/uL (4.33-5.43)
--- NOTE | 2021-04-11 15:31 | RAD REPORT ---
EXAM DESCRIPTION: RAD - Chest Single View - 04/11/2021 3:15 pm CLINICAL HISTORY: DYSPNEA Chest pain. COMPARISON: Chest Single View dated 02/14/2021; Abdomen 1 View (KUB) dated 01/08/2021; Chest Single View dated 01/06/2021; Chest Single View dated 10/13/2020 FINDINGS: Portable technique limits examination quality. Moderate left pleural effusion and left lung base opacification is again seen,. This is similar to [facility] 02/22/2021 study. This may represent infection/pneumonia. The heart is normal in size.
[2021-04-11 15:33] LABS: Protime INR 2.75
[2021-04-11 15:46] LABS: Potassium 3.4 mmol/L (3.5-5.1)
[2021-04-11 15:47] LABS: Bilirubin Direct 0.3 mg/dL (0-0.2); Bilirubin Total 0.6 mg/dL (0.2-1.0); Magnesium 1.8 mg/dL (1.8-2.4); Protein, Total 5.7 g/dL (6.4-8.2)
[2021-04-11 15:51] LABS: Troponin High Sensitivity 178.9 pg/mL (<58.9)
--- NOTE | 2021-04-11 16:16 | RAD REPORT ---
EXAM DESCRIPTION: CT - Thorax Wo Con CLINICAL HISTORY: Chest pain pleural effusion/RO obstruction vs pneumonia COMPARISON: Chest Single View dated 04/11/2021; Biopsy Guidance dated 02/04/2021 FINDINGS: Moderate to large left and small moderate right pleural effusion is noted. Opacities in alfredo th lung bases, greater on the left likely represent atelectasis. There is ground-glass opacity in bot h anterior upper lobes which is probably mild alveolitis. No pneumothorax. No axillary, mediastinal or hilar adenopathy. Upper abdominal mild ascites is present. Soft tissue thickening in the para-aortic. Mild osteopenia is seen with wedging of an upper thoracic vertebral body. All CT scans are performed using dose optimization technique as appropriate and may include automated exposure control or mA/KV adjustment according to patient size. IMPRESSION: Bilateral pleural effusions are present, larger the left as detailed.Opacities in both l faraz bases favored to represent atelectasis.
--- NOTE | 2021-04-11 17:10 | ER ---
Nurse's Notes [facility] Name: Isiah Gaytan Age: 85 yrs Sex: Male : 1935 Arrival Date: 04/11/2021 Time: 14:31 Bed 26 Private MD: Diagnosis: Chronic atrial fibrillation;Chronic combined systolic (congestive) and diastolic (congestive) heart failure;SARS-associated coronavirus as the cause of diseases classified elsewhere;Pleural effusion, not elsewhere classified Presentation: 04/11 14:33 Chief complaint: EMS states: Pt bib from [facility] with hx of covid and worsening lr4 hypoxia since last night. [facility] home personnel reported to ems that sats were as low as 80 on room air and pt was more difficult to arouse this AM. Coronavirus screen: Vaccine status: Patient reports having had a previously documented Covid positive illness. April 11, 2021 Client denies travel out of the [place] in the last 14 days. congestion, cough unrelated to allergies, shortness of breath, Client presents with at least one sign or symptom that may indicate coronavirus-19. Standard/surgical mask placed on the client. Provider contacted for isolation considerations. Ebola Screen: Patient negative for fever greater than or equal to 101.5 degrees Fahrenheit, and additional compatible Ebola Virus Disease symptoms Patient denies exposure to infectious person. Patient denies travel to an Ebola-affected area in the 21 days before illness onset. No symptoms or risks identified at this time. Initial Sepsis Screen: Does the patient meet any 2 criteria? HR > 90 bpm. No. Patient's initial sepsis screen is negative. Does the patient have a suspected source of infection? Yes: Productive cough/pneumonia. Risk Assessment: Do you want to hurt yourself or someone else? Patient reports no desire to harm self or others. Onset of symptoms was April 10, 2021. Care prior to arrival: Medication(s) given: oxygen. Activity prior to arrival: None. Mechanism of Injury: No Mechanism of Injury. Transition of care: patient was received from another setting of care (long-term care facility), [facility]. 14:33 Method Of Arrival: EMS lr4 14:33 Acuity: MARIOLA 2 lr4 Triage Assessment: 14:33 General: Appears in no apparent distress. uncomfortable, slender, unkempt, Behavior is lr4 calm, cooperative, Reports fatigue for. Pain: Denies pain. Neuro: No deficits noted. Cardiovascular: Heart tones S1 S2 Patient's skin is warm and dry. Pulses are all present. Rhythm is atrial fibrillation with rapid ventricular response Chest pain is denied. Respiratory: Reports shortness of breath cough that is labored breathing pain with cough Airway is patent Respiratory effort is even, unlabored, Respiratory pattern is regular, Sputum is thick, yellow Breath sounds are coarse bilaterally. Breath sounds with crackles Onset: The symptoms/episode began/occurred few days, worsening sinc last night . 14:51 Musculoskeletal: Reports weakness in right leg and left leg. lr4 19:21 General: Called the director of [facility], Kalnia morton, and she states that the lr4 nurse is busy in an emergency and will call me back for report. . Historical: - Allergies: 17:57 Codeine; lr4 17:57 Keflex; lr4 17:57 Azithromycin; lr4 - Home Meds: 17:57 aspirin 81 mg Oral chew 1 tab once daily [Active]; atorvastatin 80 mg oral tab 1 tab lr4 once daily for atherosclerotic cardiovascular disease [Active]; carbidopa-levodopa 25-100 mg Oral tab 1 tab 3 times per day for parkinsonism [Active]; Eliquis 5 mg oral tab 1 tab 2 times per day [Active]; furosemide 40 mg Oral tab 1 tab once daily [Active]; sotalol 40 mg Oral tab 1 tab 2 times per day [Active]; 17:59 Tramadol Oral [Active]; lr4 - PMHx: 17:57 non-hodgkin lymphoma; Parkinson's disease; Congestive heart failure; Gastroesophageal lr4 reflux disease; Atrial fibrillation; CHF; High Cholesterol; Hypertension; Myocardial infarction; - PSHx: 17:57 cardiac stents; lr4 - Immunization history:: Adult Immunizations up to date. - Social history:: Smoking status: unknown. - Code Status:: Full code. Screenin:28 Abuse screen: Denies threats or abuse. Nutritional screening: No deficits noted. lr4 Tuberculosis screening: No symptoms or risk factors identified. Risk factors: None. Fall Risk No fall in past 12 months (0 pts). Secondary diagnosis (15 points) IV access (20 points). Ambulatory Aid- None/Bed Rest/Nurse Assist (0 pts). Gait- Normal/Bed Rest/Wheelchair (0 pts) Mental Status- Overestimates/Forgets Limitations (15 pts.). Total Griffin Fall Scale indicates High Risk Score (45 or more points). Side Rails Up X 2 Placed Close to Nursing Station Frequent Obs/Assessments Occuring Family Present and informed to notify staff if the need to leave the bedside. Assessment: 20:08 Reassessment: Report called to [facility]. Spoke with Janett. Center Director notified of ss7 need for ambulance for transportation back to the facility.. 20:31 Reassessment: Pt to [facility] via [place], medic [facility], with all personal lr4 effects, pt vss, in nad. Patient states symptoms have improved. Vital Signs: 14:33 BP 100 / 65; Pulse 130; Resp 21; Temp 98.5; Pulse Ox 97% on R/A; Weight 56.7 kg; Pain lr4 5/10; 15:14 BP 102 / 65; Pulse 125; Resp 21; Pulse Ox 100% on R/A; lr4 15:22 BP 102 / 75; Pulse 99; Resp 16; Pulse Ox 98% on R/A; lr4 15:51 BP 88 / 60; Pulse 94; Resp 18; Pulse Ox 100% on R/A; lr4 16:57 BP 99 / 61; Pulse 87; Resp 2; Pulse Ox 98% ; lr4 17:53 BP 95 / 56; Pulse 102; Resp 21; Pulse Ox 100% on R/A; lr4 19:15 BP 106 / 92; Pulse 126; Resp 22; Pulse Ox 97% on R/A; lr4 20:00 BP 104 / 62; Pulse 104; Resp 22; Pulse Ox 98% on R/A; ss7 20:31 BP 104 / 62; Pulse 108; Resp 20; Pulse Ox 100% on R/A; lr4 Vitals: 15:00 Cardiac Rhythm Assessment Atrial fibrillation W/rapid ventricular response. lr4 ED Course: 14:31 Patient arrived in ED. iw 14:39 Kp Whitfield PA is PHCP. jr8 14:39 Dharmesh Jaffe MD is Attending Physician. jr8 14:49 Triage completed. lr4 15:00 Inserted saline lock: 20 gauge in right antecubital area, using aseptic technique. lr4 15:14 Basic Metabolic Panel Sent. lr4 15:14 Basic Metabolic Panel Sent. lr4 15:14 CBC with Diff Sent. lr4 15:14 LFT's Sent. lr4 15:14 Magnesium Sent. lr4 15:14 NT PRO-BNP Sent. lr4 15:14 PT-INR Sent. lr4 15:14 Troponin HS Sent. lr4 15:15 XRAY Chest (1 view) In Process Unspecified. EDMS 16:03 CT Chest Wo Con In Process Unspecified. EDMS 16:14 SARS-COV-2 RT PCR (Document "Date of Onset" if Symptomatic) Sent. ss7 16:53 Cleaned of incontinence. Linen changed. perineal care provided, moderate pasty stool lr4 cleaned, new diaper and incontinence pad placed. 16:59 SARS-COV-2 RT PCR (Document "Date of Onset" if Symptomatic) Sent. lr4 17:53 Arm band placed on right wrist. lr4 17:54 No provider procedures requiring assistance completed. lr4 17:56 Patient has correct armband on for positive identification. Bed in low position. Call lr4 light in reach. Side rails up X2. Adult w/ patient. Door closed. Warm blanket given. Pillow given. 20:32 IV discontinued. lr4 Administered Medications: 15:18 Drug: Metoprolol 5 mg Route: IVP; Site: right antecubital; lr4 15:24 Follow up: Response: No adverse reaction; Cardiac rhythm changed lr4 Outcome: 17:09 Discharge ordered by MD. diaz 17:54 Condition: stable lr4 17:54 Discharged to correction. Report called to attempted to call report twice to [address] at [phone], no answer each time 20:32 Discharge instructions given to patient, EMS, [facility] rn lr4 20:33 Patient left the ED. lr4 Signatures: Dispatcher [employer] EDMS Bertha De Souza RN KATELYNN iw Kp Whitfield PA PA jr8 Tatiana Narayanan RN RN ss7 Kamini Lantigua RN RN lr4 Corrections: (The following items were deleted from the chart) 17:57 15:33 Allergies: Azithromycin; lr4 lr4 17:58 14:49 PMHx: non-hodgkin lymphoma; lr4 lr4 17:58 14:51 PMHx: Parkinson's disease; lr4 lr4 17:58 14:51 PMHx: Congestive heart failure; lr4 lr4 17:58 14:51 PMHx: Gastroesophageal reflux disease; lr4 lr4 17:58 15:33 Allergies: Codeine; lr4 lr4 17:58 15:33 Allergies: Keflex; lr4 lr4 17:58 15:33 Home Meds: aspirin 81 mg Oral chew 1 tab once daily; lr4 lr4 17:58 15:33 Home Meds: atorvastatin 80 mg oral tab 1 tab once daily for atherosclerotic lr4 cardiovascular disease; lr4 17:58 15:33 Home Meds: carbidopa-levodopa 25-100 mg Oral tab 1 tab 3 times per day for lr4 parkinsonism; lr4 17:58 15:33 Home Meds: Eliquis 5 mg oral tab 1 tab 2 times per day; lr4 lr4 17:58 15:33 Home Meds: furosemide 40 mg oral tab 1 tab once daily; lr4 lr4 17:58 15:33 Home Meds: sotalol 40 mg Oral tab 1 tab 2 times per day; lr4 lr4 17:58 15:33 PMHx: Atrial fibrillation; lr4 lr4 17:58 15:33 PMHx: CHF; lr4 lr4 17:58 15:33 PMHx: High Cholesterol; lr4 lr4 17:58 15:33 PMHx: Hypertension; lr4 lr4 17:58 15:33 PMHx: Myocardial infarction; lr4 lr4 17:58 17:56 Allergies: Azithromycin; lr4 lr4 17:58 17:56 PSHx: cardiac stents; lr4 lr4
--- NOTE | 2021-04-11 17:10 | EDPHYS ---
Physician Documentation [facility] Name: Isiah Gaytan Age: 85 yrs Sex: Male : 1935 Arrival Date: 04/11/2021 Time: 14:31 Bed 26 Private MD: ED Physician Dharmesh Jaffe HPI: 04/11 15:59 This 85 yrs old Male presents to ER via EMS with complaints of Hypoxia. jr8 15:59 Severity of symptoms: At their worst the symptoms were mild in the emergency department jr8 the symptoms are unchanged. The patient has not experienced similar symptoms in the past. It is unknown whether or not the patient has recently seen a physician. This is a 85-year-old male patient that was brought to the emergency room via EMS after [facility] called amount for hypoxia. Patient stated that he was diagnosed with Covid about a week ago. care home told EMS that he looked more sleepy than normal. Checked his vital signs and found that he was hypoxic in the 80s. Patient stated that he feels fine currently but did have a lot of coughing last night. Patient currently 95% room air. Historical: - Allergies: 17:57 Codeine; lr4 17:57 Keflex; lr4 17:57 Azithromycin; lr4 - Home Meds: 17:57 aspirin 81 mg Oral chew 1 tab once daily [Active]; atorvastatin 80 mg oral tab 1 tab lr4 once daily for atherosclerotic cardiovascular disease [Active]; carbidopa-levodopa 25-100 mg Oral tab 1 tab 3 times per day for parkinsonism [Active]; Eliquis 5 mg oral tab 1 tab 2 times per day [Active]; furosemide 40 mg Oral tab 1 tab once daily [Active]; sotalol 40 mg Oral tab 1 tab 2 times per day [Active]; 17:59 Tramadol Oral [Active]; lr4 - PMHx: 17:57 non-hodgkin lymphoma; Parkinson's disease; Congestive heart failure; Gastroesophageal lr4 reflux disease; Atrial fibrillation; CHF; High Cholesterol; Hypertension; Myocardial infarction; - PSHx: 17:57 cardiac stents; lr4 - Immunization history:: Adult Immunizations up to date. - Social history:: Smoking status: unknown. - Code Status:: Full code. ROS: 15:59 Eyes: Negative for injury, pain, redness, and discharge, ENT: Negative for injury, jr8 pain, and discharge, Neck: Negative for injury, pain, and swelling, Cardiovascular: Negative for chest pain, palpitations, and edema, Abdomen/GI: Negative for abdominal pain, nausea, vomiting, diarrhea, and constipation, Back: Negative for injury and pain, MS/Extremity: Negative for injury and deformity, Skin: Negative for injury, rash, and discoloration, Neuro: Negative for headache, weakness, numbness, tingling, and seizure. 15:59 Respiratory: Positive for cough, shortness of breath. Exam: 15:59 Constitutional: This is a well developed, well nourished patient who is awake, alert, jr8 and in no acute distress. Cardiovascular: Regular rate and rhythm with a normal S1 and S2. No gallops, murmurs, or rubs. Normal PMI, no JVD. No pulse deficits. Abdomen/GI: Soft, non-tender, with normal bowel sounds. No distension or tympany. No guarding or rebound. No evidence of tenderness throughout. Back: No spinal tenderness. No costovertebral tenderness. Full range of motion. Skin: Warm, dry with normal turgor. Normal color with no rashes, no lesions, and no evidence of cellulitis. MS/ Extremity: Pulses equal, no cyanosis. Neurovascular intact. Full, normal range of motion. Neuro: Awake and alert, GCS 15, oriented to person, place, time, and situation. Cranial nerves II-XII grossly intact. Motor strength 5/5 in all extremities. Sensory grossly intact. 15:59 ENT: Nares patent. No nasal discharge, no septal abnormalities noted. Tympanic membranes are normal and external auditory canals are clear. Oropharynx with no redness, swelling, or masses, exudates, or evidence of obstruction, uvula midline. Mucous membranes moist. Neck: Trachea midline, no thyromegaly or masses palpated, and no cervical lymphadenopathy. Supple, full range of motion without nuchal rigidity, or vertebral point tenderness. No Meningismus. 15:59 Respiratory: the patient does not display signs of respiratory distress, Respirations: normal, symetrical, no use of accessory muscles, no evidence of nasal flaring, no appreciated paradoxical movements, no prolonged exhalations, no pursed lip breathing, no retractions, no shallow respirations, no splinting, no tachypnea, Breath sounds: rales, that are mild, are located in both bases. Vital Signs: 14:33 BP 100 / 65; Pulse 130; Resp 21; Temp 98.5; Pulse Ox 97% on R/A; Weight 56.7 kg; Pain lr4 5/10; 15:14 BP 102 / 65; Pulse 125; Resp 21; Pulse Ox 100% on R/A; lr4 15:22 BP 102 / 75; Pulse 99; Resp 16; Pulse Ox 98% on R/A; lr4 15:51 BP 88 / 60; Pulse 94; Resp 18; Pulse Ox 100% on R/A; lr4 16:57 BP 99 / 61; Pulse 87; Resp 2; Pulse Ox 98% ; lr4 17:53 BP 95 / 56; Pulse 102; Resp 21; Pulse Ox 100% on R/A; lr4 19:15 BP 106 / 92; Pulse 126; Resp 22; Pulse Ox 97% on R/A; lr4 20:00 BP 104 / 62; Pulse 104; Resp 22; Pulse Ox 98% on R/A; ss7 20:31 BP 104 / 62; Pulse 108; Resp 20; Pulse Ox 100% on R/A; lr4 MDM: 14:39 Patient medically screened. jr8 17:05 Data reviewed: vital signs, nurses notes, lab test result(s), EKG, radiologic studies, jr8 CT scan, plain films. Data interpreted: Pulse oximetry: on room air is 98 %. Interpretation: normal. Counseling: I had a detailed discussion with the patient and/or guardian regarding: the historical points, exam findings, and any diagnostic results supporting the discharge/admit diagnosis, lab results, radiology results, the need for outpatient follow up, a family practitioner, to return to the emergency department if symptoms worsen or persist or if there are any questions or concerns that arise at home. ED course: Reviewed past labs taken less than 2 months ago. Patient has similar troponin exam and BNP. Patient in no acute respiratory distress and no overall change on chest x-ray. EKG stable and without acute changes. Patient has not been hypoxic since he has been here and has been off oxygen the entire time. As such patient does not meet any criteria for admission at this time. We [facility] to [facility] for close observation and follow-up with his primary care.. 04/11 14:40 Order name: Basic Metabolic Panel jr8 14 14:40 Order name: CBC with Diff; Complete Time: 15:44 04/11 14:40 Order name: LFT's; Complete Time: 15:52 04/11 14:40 Order name: Magnesium; Complete Time: 15:52 04/11 14:40 Order name: NT PRO-BNP; Complete Time: 15:52 04/11 14:40 Order name: PT-INR; Complete Time: 15:44 04/11 14:40 Order name: Troponin HS; Complete Time: 15:52 04/11 14:40 Order name: XRAY Chest (1 view); Complete Time: 15:44 04/11 14:40 Order name: EKG; Complete Time: 14:44 04/11 14:40 Order name: Cardiac monitoring; Complete Time: 15:13 04/11 14:43 Order name: Basic Metabolic Panel; Complete Time: 15:52 EDMS 04/11 15:44 Order name: CT Chest Wo Con; Complete Time: 16:19 04/11 15:52 Order name: SARS-COV-2 RT PCR (Document "Date of Onset" if Symptomatic); Complete Time: 17:20 04/11 14:40 Order name: EKG - Nurse/Tech; Complete Time: 15:13 04/11 14:40 Order name: IV Saline Lock; Complete Time: 15:13 04/11 14:40 Order name: Labs collected and sent; Complete Time: 15:13 04/11 14:40 Order name: O2 Per Protocol; Complete Time: 14:55 04/11 14:40 Order name: O2 Sat Monitoring; Complete Time: 14:55 Administered Medications: 15:18 Drug: Metoprolol 5 mg Route: IVP; Site: right antecubital; lr4 15:24 Follow up: Response: No adverse reaction; Cardiac rhythm changed lr4 Disposition: 04/12 07:28 Co-signature as Attending Physician, Dharmesh Jaffe MD. rn Disposition Summary: 04/11/21 17:09 Discharge Ordered Location: Home jr8 Problem: new jr8 Symptoms: have improved jr8 Condition: Stable jr8 Diagnosis - Chronic atrial fibrillation jr8 - Chronic combined systolic (congestive) and diastolic (congestive) heart failure jr8 - SARS-associated coronavirus as the cause of diseases classified elsewhere jr8 - Pleural effusion, not elsewhere classified jr8 Followup: jr8 - With: Private Physician - When: 2 - 3 days - Reason: Recheck today's complaints, Continuance of care, Re-evaluation by your physician Discharge Instructions: - Discharge Summary Sheet jr8 - Atrial Fibrillation jr8 - COVID-19 jr8 - Pleural Effusion jr8 Forms: - Medication Reconciliation Form jr8 - Thank You Letter jr8 - Antibiotic Education jr8 - Prescription Opioid Use jr8 - SBAR form cs9 Signatures: Dispatcher [employer] EDMS Dharmesh Jaffe MD MD rn Roszak, Josh, PA PA jr8 Kamini Lantigua RN RN lr4 Corrections: (The following items were deleted from the chart) 04/11 15:14 14:44 Chest Single View+[id number].[email or web address].[email or web address] ordered. EDMS EDMS 17:57 15:33 Allergies: Azithromycin; lr4 lr4 17:58 14:49 PMHx: non-hodgkin lymphoma; lr4 lr4 17:58 14:51 PMHx: Parkinson's disease; lr4 lr4 17:58 14:51 PMHx: Congestive heart failure; lr4 lr4 17:58 14:51 PMHx: Gastroesophageal reflux disease; lr4 lr4 17:58 15:33 Allergies: Codeine; lr4 lr4 17:58 15:33 Allergies: Keflex; lr4 lr4 17:58 15:33 Home Meds: aspirin 81 mg Oral chew 1 tab once daily; lr4 lr4 17:58 15:33 Home Meds: atorvastatin 80 mg oral tab 1 tab once daily for atherosclerotic lr4 cardiovascular disease; lr4 17:58 15:33 Home Meds: carbidopa-levodopa 25-100 mg Oral tab 1 tab 3 times per day for lr4 parkinsonism; lr4 17:58 15:33 Home Meds: Eliquis 5 mg oral tab 1 tab 2 times per day; lr4 lr4 17:58 15:33 Home Meds: furosemide 40 mg oral tab 1 tab once daily; lr4 lr4 17:58 15:33 Home Meds: sotalol 40 mg Oral tab 1 tab 2 times per day; lr4 lr4 17:58 15:33 PMHx: Atrial fibrillation; lr4 lr4 17:58 15:33 PMHx: CHF; lr4 lr4 : 15:33 PMHx: High Cholesterol; lr4 lr4 15:33 PMHx: Hypertension; lr4 lr4 15:33 PMHx: Myocardial infarction; lr4 lr4 17:56 Allergies: Azithromycin; lr4 lr4 17:56 PSHx: cardiac stents; lr4 lr4
[2021-04-11 21:09] VITALS: TEMP 98.5
[2021-04-11 21:20] VITALS: BP 104/62
[2021-04-11 21:21] VITALS: O2SAT 100
--- NOTE | 2021-04-12 10:17 | EKG ---
Test Date: 2021-04-11 Test Time: 15:05:09 Casino Cashier: SANG MEASUREMENT RESULTS: Intervals: Rate: 101 [place]: QRSD: 70 QT: 330 QTc: 427 [place]: P: AK: QRS: 3 T: 206 INTERPRETIVE STATEMENTS: Atrial fibrillation with rapid ventricular response Nonspecific ST and T wave abnormality, probably digitalis effect Abnormal ECG Compared to ECG 04/11/2021 15:04:40 ST (T wave) deviation now present Myocardial infarct finding no longer present Electronically Signed On 04-12-21 10:14:38 ORDER DESK CLERK by Pollo Navarro
--- NOTE | 2021-04-12 10:17 | EKG ---
Test Date: 2021-04-11 Test Time: 15:04:40 Can Stacker: SANG MEASUREMENT RESULTS: Intervals: Rate: 127 AL: QRSD: 72 QT: 264 QTc: 383 [place]: P: AL: QRS: -4 T: 206 INTERPRETIVE STATEMENTS: Atrial fibrillation with rapid ventricular response Cannot rule out Anterior infarct, age undetermined Abnormal ECG Compared to ECG 02/14/2021 17:01:03 Accelerated junctional rhythm no longer present Ventricular premature complex(es) no longer present Myocardial infarct finding still present Electronically Signed On 04-12-21 10:14:39 PAEDIATRIC PHYSIOTHERAPIST by Pollo Navarro
== END 2021-04-11 20:33 | disposition home or self-care (01) ==
LOC: ER 14:13
DX: U07.1 COVID-19 (principal); J90 Pleural effusion, not elsewhere classified; I50.42 Chronic combined systolic (congestive) and diastolic (congestive) heart failure; I48.20 Chronic atrial fibrillation, unspecified; I10 Essential (primary) hypertension; I25.2 Old myocardial infarction; G20 Parkinson's disease; Z95.818 Presence of other cardiac implants and grafts; Z79.82 Long term (current) use of aspirin; Z88.1 Allergy status to other antibiotic agents; Z88.3 Allergy status to other anti-infective agents; Z88.5 Allergy status to narcotic agent
CPT/HCPCS: 36415; 71045; 71250; 80048; 80076; 83735; 83880; 84484; 85025; 85610; 93005; 96374; 99285; U0003

== ENCOUNTER 2021-04-12 20:18 | Inpatient (IN) | payer OTHER ==
--- OUTSIDE RECORDS SUMMARY | 2021-04-12 20:25 | XMS REPORT | Clinical Summary ---
:1935 Author Organization [facility] MD Pedro [facility] Address [address] [place] [address] Care Team Providers Name Role Phone Kuldeep [...] 51 g Active (PREVIDENT) 1.1 % daily. [place] 9 dental teeth with creamIndications: cream and [...] likely . 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 Education was [...] Added automatically from request for tabitha nickersony [id number] Encounter for other preprocedural examination 09/19/19 Overview: [...] vertebral arteries OSH records from [facility] reviewed [facility] 05/09/17: LAD prox patent st ent X 2, mid 95% successful PCI to LAD Echocardiogram: 05/08/17: normal LVH, 60- 65%, LVH, aortic valve sclerosis, mild pHTN Stress test 07/09/18: adenosine nuclear s tress: mildly abnormal myocardial perfusion (low risk scan based on my discussion with his home stave cutter) per Cardiology note 10/02/18 Squamous cell carcinoma [...] Garcia, 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) 03/08/2021 Orders Only Lymphoma and Myeloma Britany Tracy, PHYSICAL THERAPY AID 03/07/2021 Hospital Encounter Radiation Oncology Roshan Sauceda MD 03/03/2021 Anesthesia Event Anesthesiology Adolph Murphy MD 03/02/2021 Anesthesia Event Radiology Bill Israel MD Joseph, [place], HEALTH SYSTEMS ANALYST 03/02/2021 Travel 02/28/2021 Anesthesia Event Radiology Olena [...] John, SARS-CoV-2 vacc ination MD Sven after 04/12/2020 Surgical History Surgery Date Site/Laterality Comments BACK SURGERY 02/26/1997 - 02/25/1998 CORONARY ANGIOPLASTY 08/04/2010 2 Xience V ALIZA stents placed WITH STENT PLACEMENT in proximal LAD CORONARY ANGIOPLASTY 05/09/2017 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 hospitlilized x 10 days. 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 MT SUB GRFT 09/19/2018 Right Procedure: APPLI CATION OF F/S/N/H/F/G/M/D /<100SCM SKIN ROJAS BSTITUTE GRAFT TO /<1ST 25 SCM SCALP; Surgeon: Roshan Sauceda MD; Loca tion: MAIN OR; Service: HN - HEAD & NECK SURGERY Medical devices from this surgery are in t he Implants section. 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 MT FREE MUSC-SKIN FLAP 10/10/2018 Back/Right Procedure : FREE MUSCLE OR W/MICROVASC ANAST MYOCUTANEOUS F LAP WITH MICRVASCULAR TUCKER STOMOSIS; Surgeon: Charles Moreno MD; Location: MAIN O R; Service: PLS - PLASTIC ROJAS RGERY Medical devices from this surgery are in t he Implants section. MT SPLIT GRFT 10/10/2018 Thigh/Right Procedure: SPLIT THICKNESS TRUNK,ARM,LEG <100 SQCM SKIN GRA FT OF TRUNK/ARM OR LEG [id number]; Rojas rgeon: Charles Moreno MD; Loca tion: MAIN OR; Service: PL S - PLASTIC SURGERY Medical devices from this surgery are in t he Implants section. MT CHG FLUOROSCOPY UP TO 10/30/2018 Right Procedu re: FLUOROSCOPY; 1 HOUR PHYSICIAN/QHP Surgeon: Srinivasa Simmons MD; TIME Location: MAIN O R; Service: ORTHOPEDIC ONCOL OGY Medical devices from this surgery are in t he Implants section. MT OPEN FIX 10/30/2018 Hip/Right Procedure: OPEN REDUCTION [...] carcinoma of skin 2015 Coronary arteriosclerosis 2011 PR n 2010 with had chest pains. sp cardiac stents x 2 (reportedly had another PR durin g procedure). pt was started on [...] Comments Blood Pressure 101/68 03/24/2021 3:29 PM NEUROBIOLOGIST Pulse 79 03/24/2021 3:29 PM NEUROBIOLOGIST Temperature 37.1 C (98.8 F) 03/24/2021 3:29 PM NEUROBIOLOGIST Respiratory Rate 18 03/24/2021 3:29 PM NEUROBIOLOGIST Oxygen Saturation 96% 03/24/2021 3:29 PM NEUROBIOLOGIST Inhaled Oxygen Concentration - - Weight 65.2 kg (143 lb 11.8 oz) 03/24/2021 4:48 AM NEUROBIOLOGIST Height 170 cm (5' 6.93") 02/24/2021 6:09 AM NEUROBIOLOGIST Body Mass Index 22.56 02/24/2021 6:09 AM NEUROBIOLOGIST Plan of Treatment Health Maintenance Due Date Last Done Comments COVID-19 Vaccination (1) 1947 Implants Implanted Type Area Cream Hauler Device Shelf Model / Identifier Expiration Serial / Date Lot Psychiatric Nurse Microvascular Anastomotic Device 2.5mm - [id number] Card ioPulm Scalp [employer] JOHN 04/24/2023 [id number] / Implanted: Qty: 1 on 10/10/2018 by Charles Moreno MD at [facility] / [id number] Biomet Hip Frac Nail 11*400mm Rt Implant Right: [employer] 06/10/2028 [id number] / Implanted: Qty: 1 on 10/30/2018 by Ramón Simmons MD at [facility] Femur / [id number] Biomet Hf-Nail Lag Screw 10.5*105mm Implant Right: [employer] 08/07/2027 [id number] / Implanted: Qty: 1 on 10/30/2018 by Ramón Simmons MD at [facility] Fem[employer] / [id number] Biomet Cortical Bone Screw 5*54mm Implant Right: [employer] 06/26/2026 [id number] / Implanted: Qty: 1 on 10/30/2018 by Ramón Simmons MD at [facility] [employer] / [id number] A Integra Bp Dural Graft 4x5cm - Sna Skin/Tissue [employer] 05/26/2020 [id number] / Implanted: Qty: 1 on 09/19/2018 by Roshan Sauceda MD at [facility] [employer] NA / [id number] [id number] Cardiac Stents Description: 2010 x2,, 2017 x1 Pins Description: pins on the left elbow Procedures Procedure Name Priority Date/Time Associated Diagnosis Comme nts ANION GAP AM 03/24/2021 Results for 4:34 AM NEUROBIOLOGIST this procedure are in the results section. .GLOMERULAR FILTRATION AM 03/24/2021 Resul ts for RATE 4:34 AM NEUROBIOLOGIST this procedure are in the results section. SERUM CREATININE AM 03/24/2021 Results for 4:34 AM NEUROBIOLOGIST this procedure are in the results section. MANUAL DIFFERENTIAL AM 03/24/2021 Results for 4:34 AM NEUROBIOLOGIST this procedure are in the results section. Results CBC AM 03/24/2021 Results for 4:34 AM NEUROBIOLOGIST this procedure are in the results section. ALKALINE PHOSPHATASE AM 03/24/2021 Results for 4:34 AM NEUROBIOLOGIST this procedure are in the results section. ASPARTATE AM 03/24/2021 Results for AMINOTRANSFERASE 4:34 AM NEUROBIOLOGIST this proced ure are in the results section. ALANINE AM 03/24/2021 Results for AMINOTRANSFERASE 4:34 AM NEUROBIOLOGIST this proced ure are in the results section. MAGNESIUM LEVEL AM 03/24/2021 Results for 4:34 AM NEUROBIOLOGIST this procedure are in the results section. CALCIUM LEVEL TOTAL AM 03/24/2021 Results for 4:34 AM NEUROBIOLOGIST this procedure are in the results section. ALBUMIN LEVEL AM 03/24/2021 Results for 4:34 AM NEUROBIOLOGIST this procedure are in the results section. FRACTIONATED BILIRUBIN AM 03/24/2021 Resul ts for 4:34 AM NEUROBIOLOGIST this procedure are in the results section. PHOSPHORUS LEVEL AM 03/24/2021 Results for 4:34 AM NEUROBIOLOGIST this procedure are in the results section. URIC ACID AM 03/24/2021 Results for 4:34 AM NEUROBIOLOGIST this procedure are in the results section. LACTATE DEHYDROGENASE AM 03/24/2021 Result s for 4:34 AM NEUROBIOLOGIST this procedure are in the results section. GLUCOSE, RANDOM AM 03/24/2021 Results for 4:34 AM NEUROBIOLOGIST this procedure are in the results section. SERUM CREATININE AM 03/24/2021 4:34 AM NEUROBIOLOGIST BLOOD UREA NITROGEN AM 03/24/2021 Results for 4:34 AM NEUROBIOLOGIST this procedure are in the results section. CARBON DIOXIDE LEVEL AM 03/24/2021 Results for 4:34 AM NEUROBIOLOGIST this procedure are in the results section. CHLORIDE LEVEL AM 03/24/2021 Results for 4:34 AM NEUROBIOLOGIST this procedure are in the results section. POTASSIUM LEVEL AM 03/24/2021 Results for 4:34 AM NEUROBIOLOGIST this procedure are in the results section. SODIUM LEVEL AM 03/24/2021 Results for 4:34 AM NEUROBIOLOGIST this procedure are in the results section. COMPLETE BLOOD COUNT AM 03/24/2021 W/ DIFFERENTIAL 4:34 AM NEUROBIOLOGIST COVID-19 (SARS-COV-2) Now 03/23/2021 Result s for PCR-ASYMPTOMATIC MC 4:42 PM NEUROBIOLOGIST this pro cedure are in the results section. ANION GAP AM 03/23/2021 Results for 5:21 AM NEUROBIOLOGIST this procedure are in the results section. .GLOMERULAR FILTRATION AM 03/23/2021 Resul ts for RATE 5:21 AM NEUROBIOLOGIST this procedure are in the results section. SERUM CREATININE AM 03/23/2021 Results for 5:21 AM NEUROBIOLOGIST this procedure are in the results section. MANUAL DIFFERENTIAL AM 03/23/2021 Results for 5:21 AM NEUROBIOLOGIST this procedure are in the results section. Results CBC AM 03/23/2021 Results for 5:21 AM NEUROBIOLOGIST this procedure are in the results section. ALKALINE PHOSPHATASE AM 03/23/2021 Results for 5:21 AM NEUROBIOLOGIST this procedure are in the results section. ASPARTATE AM 03/23/2021 Results for AMINOTRANSFERASE 5:21 AM NEUROBIOLOGIST this proced ure are in the results section. ALANINE AM 03/23/2021 Results for AMINOTRANSFERASE 5:21 AM NEUROBIOLOGIST this proced ure are in the results section. MAGNESIUM LEVEL AM 03/23/2021 Results for 5:21 AM NEUROBIOLOGIST this procedure are in the results section. CALCIUM LEVEL TOTAL AM 03/23/2021 Results for 5:21 AM NEUROBIOLOGIST this procedure are in the results section. ALBUMIN LEVEL AM 03/23/2021 Results for 5:21 AM NEUROBIOLOGIST this procedure are in the results section. FRACTIONATED BILIRUBIN AM 03/23/2021 Resul ts for 5:21 AM NEUROBIOLOGIST this procedure are in the results section. PHOSPHORUS LEVEL AM 03/23/2021 Results for 5:21 AM NEUROBIOLOGIST this procedure are in the results section. URIC ACID AM 03/23/2021 Results for 5:21 AM NEUROBIOLOGIST this procedure are in the results section. LACTATE DEHYDROGENASE AM 03/23/2021 Result s for 5:21 AM NEUROBIOLOGIST this procedure are in the results section. GLUCOSE, RANDOM AM 03/23/2021 Results for 5:21 AM NEUROBIOLOGIST this procedure are in the results section. SERUM CREATININE AM 03/23/2021 5:21 AM NEUROBIOLOGIST BLOOD UREA NITROGEN AM 03/23/2021 Results for 5:21 AM NEUROBIOLOGIST this procedure are in the results section. CARBON DIOXIDE LEVEL AM 03/23/2021 Results for 5:21 AM NEUROBIOLOGIST this procedure are in the results section. CHLORIDE LEVEL AM 03/23/2021 Results for 5:21 AM NEUROBIOLOGIST this procedure are in the results section. POTASSIUM LEVEL AM 03/23/2021 Results for 5:21 AM NEUROBIOLOGIST this procedure are in the results section. SODIUM LEVEL AM 03/23/2021 Results for 5:21 AM NEUROBIOLOGIST this procedure are in the results section. COMPLETE BLOOD COUNT AM 03/23/2021 W/ DIFFERENTIAL 5:21 AM NEUROBIOLOGIST TMP INTERPRETATION Routine 03/22/2021 Results f or ANTIBODY SCREEN 4:30 AM NEUROBIOLOGIST this procedu re NEGATIVE are in the results section. CLOT EXPIRATION DATE Routine 03/22/2021 Results for 4:30 AM NEUROBIOLOGIST this procedure are in the results section. ANION GAP AM 03/22/2021 Results for 4:30 AM NEUROBIOLOGIST this procedure are in the results section. .GLOMERULAR FILTRATION AM 03/22/2021 Resul ts for RATE 4:30 AM NEUROBIOLOGIST this procedure are in the results section. SERUM CREATININE AM 03/22/2021 Results for 4:30 AM NEUROBIOLOGIST this procedure are in the results section. MANUAL DIFFERENTIAL AM 03/22/2021 Results for 4:30 AM NEUROBIOLOGIST this procedure are in the results section. Results CBC AM 03/22/2021 Results for 4:30 AM NEUROBIOLOGIST this procedure are in the results section. ANTIBODY SCREEN Routine 03/22/2021 Results for 4:30 AM NEUROBIOLOGIST this procedure are in the results section. ABORH Routine 03/22/2021 Results for 4:30 AM NEUROBIOLOGIST this procedure are in the results section. TYPE AND SCREEN Routine 03/22/2021 4:30 AM NEUROBIOLOGIST ALKALINE PHOSPHATASE AM 03/22/2021 Results for 4:30 AM NEUROBIOLOGIST this procedure are in the results section. ASPARTATE AM 03/22/2021 Results for AMINOTRANSFERASE 4:30 AM NEUROBIOLOGIST this proced ure are in the results section. ALANINE AM 03/22/2021 Results for AMINOTRANSFERASE 4:30 AM NEUROBIOLOGIST this proced ure are in the results section. MAGNESIUM LEVEL AM 03/22/2021 Results for 4:30 AM NEUROBIOLOGIST this procedure are in the results section. CALCIUM LEVEL TOTAL AM 03/22/2021 Results for 4:30 AM NEUROBIOLOGIST this procedure are in the results section. ALBUMIN LEVEL AM 03/22/2021 Results for 4:30 AM NEUROBIOLOGIST this procedure are in the results section. FRACTIONATED BILIRUBIN AM 03/22/2021 Resul ts for 4:30 AM NEUROBIOLOGIST this procedure are in the results section. PHOSPHORUS LEVEL AM 03/22/2021 Results for 4:30 AM NEUROBIOLOGIST this procedure are in the results section. URIC ACID AM 03/22/2021 Results for 4:30 AM NEUROBIOLOGIST this procedure are in the results section. LACTATE DEHYDROGENASE AM 03/22/2021 Result s for 4:30 AM NEUROBIOLOGIST this procedure are in the results section. GLUCOSE, RANDOM AM 03/22/2021 Results for 4:30 AM NEUROBIOLOGIST this procedure are in the results section. SERUM CREATININE AM 03/22/2021 4:30 AM NEUROBIOLOGIST BLOOD UREA NITROGEN AM 03/22/2021 Results for 4:30 AM NEUROBIOLOGIST this procedure are in the results section. CARBON DIOXIDE LEVEL AM 03/22/2021 Results for 4:30 AM NEUROBIOLOGIST this procedure are in the results section. CHLORIDE LEVEL AM 03/22/2021 Results for 4:30 AM NEUROBIOLOGIST this procedure are in the results section. POTASSIUM LEVEL AM 03/22/2021 Results for 4:30 AM NEUROBIOLOGIST this procedure are in the results section. SODIUM LEVEL AM 03/22/2021 Results for 4:30 AM NEUROBIOLOGIST this procedure are in the results section. COMPLETE BLOOD COUNT AM 03/22/2021 W/ DIFFERENTIAL 4:30 AM NEUROBIOLOGIST ANION GAP AM 03/21/2021 Results for 4:17 AM NEUROBIOLOGIST this procedure are in the results section. .GLOMERULAR FILTRATION AM 03/21/2021 Resul ts for RATE 4:17 AM NEUROBIOLOGIST this procedure are in the results section. SERUM CREATININE AM 03/21/2021 Results for 4:17 AM NEUROBIOLOGIST this procedure are in the results section. MANUAL DIFFERENTIAL AM 03/21/2021 Results for 4:17 AM NEUROBIOLOGIST this procedure are in the results section. Results CBC AM 03/21/2021 Results for 4:17 AM NEUROBIOLOGIST this procedure are in the results section. ALKALINE PHOSPHATASE AM 03/21/2021 Results for 4:17 AM NEUROBIOLOGIST this procedure are in the results section. ASPARTATE AM 03/21/2021 Results for AMINOTRANSFERASE 4:17 AM NEUROBIOLOGIST this proced ure are in the results section. ALANINE AM 03/21/2021 Results for AMINOTRANSFERASE 4:17 AM NEUROBIOLOGIST this proced ure are in the results section. MAGNESIUM LEVEL AM 03/21/2021 Results for 4:17 AM NEUROBIOLOGIST this procedure are in the results section. CALCIUM LEVEL TOTAL AM 03/21/2021 Results for 4:17 AM NEUROBIOLOGIST this procedure are in the results section. ALBUMIN LEVEL AM 03/21/2021 Results for 4:17 AM NEUROBIOLOGIST this procedure are in the results section. FRACTIONATED BILIRUBIN AM 03/21/2021 Resul ts for 4:17 AM NEUROBIOLOGIST this procedure are in the results section. PHOSPHORUS LEVEL AM 03/21/2021 Results for 4:17 AM NEUROBIOLOGIST this procedure are in the results section. URIC ACID AM 03/21/2021 Results for 4:17 AM NEUROBIOLOGIST this procedure are in the results section. LACTATE DEHYDROGENASE AM 03/21/2021 Result s for 4:17 AM NEUROBIOLOGIST this procedure are in the results section. GLUCOSE, RANDOM AM 03/21/2021 Results for 4:17 AM NEUROBIOLOGIST this procedure are in the results section. SERUM CREATININE AM 03/21/2021 4:17 AM NEUROBIOLOGIST BLOOD UREA NITROGEN AM 03/21/2021 Results for 4:17 AM NEUROBIOLOGIST this procedure are in the results section. CARBON DIOXIDE LEVEL AM 03/21/2021 Results for 4:17 AM NEUROBIOLOGIST this procedure are in the results section. CHLORIDE LEVEL AM 03/21/2021 Results for 4:17 AM NEUROBIOLOGIST this procedure are in the results section. POTASSIUM LEVEL AM 03/21/2021 Results for 4:17 AM NEUROBIOLOGIST this procedure are in the results section. SODIUM LEVEL AM 03/21/2021 Results for 4:17 AM NEUROBIOLOGIST this procedure are in the results section. COMPLETE BLOOD COUNT AM 03/21/2021 W/ DIFFERENTIAL 4:17 AM NEUROBIOLOGIST ANION GAP AM 03/20/2021 Results for 4:58 AM NEUROBIOLOGIST this procedure are in the results section. .GLOMERULAR FILTRATION AM 03/20/2021 Resul ts for RATE 4:58 AM NEUROBIOLOGIST this procedure are in the results section. SERUM CREATININE AM 03/20/2021 Results for 4:58 AM NEUROBIOLOGIST this procedure are in the results section. MANUAL DIFFERENTIAL AM 03/20/2021 Results for 4:58 AM NEUROBIOLOGIST this procedure are in the results section. Results CBC AM 03/20/2021 Results for 4:58 AM NEUROBIOLOGIST this procedure are in the results section. ALKALINE PHOSPHATASE AM 03/20/2021 Results for 4:58 AM NEUROBIOLOGIST this procedure are in the results section. ASPARTATE AM 03/20/2021 Results for AMINOTRANSFERASE 4:58 AM NEUROBIOLOGIST this proced ure are in the results section. ALANINE AM 03/20/2021 Results for AMINOTRANSFERASE 4:58 AM NEUROBIOLOGIST this proced ure are in the results section. MAGNESIUM LEVEL AM 03/20/2021 Results for 4:58 AM NEUROBIOLOGIST this procedure are in the results section. CALCIUM LEVEL TOTAL AM 03/20/2021 Results for 4:58 AM NEUROBIOLOGIST this procedure are in the results section. ALBUMIN LEVEL AM 03/20/2021 Results for 4:58 AM NEUROBIOLOGIST this procedure are in the results section. FRACTIONATED BILIRUBIN AM 03/20/2021 Resul ts for 4:58 AM NEUROBIOLOGIST this procedure are in the results section. PHOSPHORUS LEVEL AM 03/20/2021 Results for 4:58 AM NEUROBIOLOGIST this procedure are in the results section. URIC ACID AM 03/20/2021 Results for 4:58 AM NEUROBIOLOGIST this procedure are in the results section. LACTATE DEHYDROGENASE AM 03/20/2021 Result s for 4:58 AM NEUROBIOLOGIST this procedure are in the results section. GLUCOSE, RANDOM AM 03/20/2021 Results for 4:58 AM NEUROBIOLOGIST this procedure are in the results section. SERUM CREATININE AM 03/20/2021 4:58 AM NEUROBIOLOGIST BLOOD UREA NITROGEN AM 03/20/2021 Results for 4:58 AM NEUROBIOLOGIST this procedure are in the results section. CARBON DIOXIDE LEVEL AM 03/20/2021 Results for 4:58 AM NEUROBIOLOGIST this procedure are in the results section. CHLORIDE LEVEL AM 03/20/2021 Results for 4:58 AM NEUROBIOLOGIST this procedure are in the results section. POTASSIUM LEVEL AM 03/20/2021 Results for 4:58 AM NEUROBIOLOGIST this procedure are in the results section. SODIUM LEVEL AM 03/20/2021 Results for 4:58 AM NEUROBIOLOGIST this procedure are in the results section. COMPLETE BLOOD COUNT AM 03/20/2021 W/ DIFFERENTIAL 4:58 AM NEUROBIOLOGIST TMP INTERPRETATION Routine 03/19/2021 Results f or ANTIBODY SCREEN 5:09 AM NEUROBIOLOGIST this procedu re NEGATIVE are in the results section. CLOT EXPIRATION DATE Routine 03/19/2021 Results for 5:09 AM NEUROBIOLOGIST this procedure are in the results section. ANION GAP AM 03/19/2021 Results for 5:09 AM NEUROBIOLOGIST this procedure are in the results section. .GLOMERULAR FILTRATION AM 03/19/2021 Resul ts for RATE 5:09 AM NEUROBIOLOGIST this procedure are in the results section. SERUM CREATININE AM 03/19/2021 Results for 5:09 AM NEUROBIOLOGIST this procedure are in the results section. MANUAL DIFFERENTIAL AM 03/19/2021 Results for 5:09 AM NEUROBIOLOGIST this procedure are in the results section. Results CBC AM 03/19/2021 Results for 5:09 AM NEUROBIOLOGIST this procedure are in the results section. ANTIBODY SCREEN Routine 03/19/2021 Results for 5:09 AM NEUROBIOLOGIST this procedure are in the results section. ABORH Routine 03/19/2021 Results for 5:09 AM NEUROBIOLOGIST this procedure are in the results section. TYPE AND SCREEN Routine 03/19/2021 5:09 AM NEUROBIOLOGIST ALKALINE PHOSPHATASE AM 03/19/2021 Results for 5:09 AM NEUROBIOLOGIST this procedure are in the results section. ASPARTATE AM 03/19/2021 Results for AMINOTRANSFERASE 5:09 AM NEUROBIOLOGIST this proced ure are in the results section. ALANINE AM 03/19/2021 Results for AMINOTRANSFERASE 5:09 AM NEUROBIOLOGIST this proced ure are in the results section. MAGNESIUM LEVEL AM 03/19/2021 Results for 5:09 AM NEUROBIOLOGIST this procedure are in the results section. CALCIUM LEVEL TOTAL AM 03/19/2021 Results for 5:09 AM NEUROBIOLOGIST this procedure are in the results section. ALBUMIN LEVEL AM 03/19/2021 Results for 5:09 AM NEUROBIOLOGIST this procedure are in the results section. FRACTIONATED BILIRUBIN AM 03/19/2021 Resul ts for 5:09 AM NEUROBIOLOGIST this procedure are in the results section. PHOSPHORUS LEVEL AM 03/19/2021 Results for 5:09 AM NEUROBIOLOGIST this procedure are in the results section. URIC ACID AM 03/19/2021 Results for 5:09 AM NEUROBIOLOGIST this procedure are in the results section. LACTATE DEHYDROGENASE AM 03/19/2021 Result s for 5:09 AM NEUROBIOLOGIST this procedure are in the results section. GLUCOSE, RANDOM AM 03/19/2021 Results for 5:09 AM NEUROBIOLOGIST this procedure are in the results section. SERUM CREATININE AM 03/19/2021 5:09 AM NEUROBIOLOGIST BLOOD UREA NITROGEN AM 03/19/2021 Results for 5:09 AM NEUROBIOLOGIST this procedure are in the results section. CARBON DIOXIDE LEVEL AM 03/19/2021 Results for 5:09 AM NEUROBIOLOGIST this procedure are in the results section. CHLORIDE LEVEL AM 03/19/2021 Results for 5:09 AM NEUROBIOLOGIST this procedure are in the results section. POTASSIUM LEVEL AM 03/19/2021 Results for 5:09 AM NEUROBIOLOGIST this procedure are in the results section. SODIUM LEVEL AM 03/19/2021 Results for 5:09 AM NEUROBIOLOGIST this procedure are in the results section. COMPLETE BLOOD COUNT AM 03/19/2021 W/ DIFFERENTIAL 5:09 AM NEUROBIOLOGIST ANION GAP AM 03/18/2021 Results for 4:01 AM NEUROBIOLOGIST this procedure are in the results section. .GLOMERULAR FILTRATION AM 03/18/2021 Resul ts for RATE 4:01 AM NEUROBIOLOGIST this procedure are in the results section. SERUM CREATININE AM 03/18/2021 Results for 4:01 AM NEUROBIOLOGIST this procedure are in the results section. MANUAL DIFFERENTIAL AM 03/18/2021 Results for 4:01 AM NEUROBIOLOGIST this procedure are in the results section. Results CBC AM 03/18/2021 Results for 4:01 AM NEUROBIOLOGIST this procedure are in the results section. ALKALINE PHOSPHATASE AM 03/18/2021 Results for 4:01 AM NEUROBIOLOGIST this procedure are in the results section. ASPARTATE AM 03/18/2021 Results for AMINOTRANSFERASE 4:01 AM NEUROBIOLOGIST this proced ure are in the results section. ALANINE AM 03/18/2021 Results for AMINOTRANSFERASE 4:01 AM NEUROBIOLOGIST this proced ure are in the results section. MAGNESIUM LEVEL AM 03/18/2021 Results for 4:01 AM NEUROBIOLOGIST this procedure are in the results section. CALCIUM LEVEL TOTAL AM 03/18/2021 Results for 4:01 AM NEUROBIOLOGIST this procedure are in the results section. ALBUMIN LEVEL AM 03/18/2021 Results for 4:01 AM NEUROBIOLOGIST this procedure are in the results section. FRACTIONATED BILIRUBIN AM 03/18/2021 Resul ts for 4:01 AM NEUROBIOLOGIST this procedure are in the results section. PHOSPHORUS LEVEL AM 03/18/2021 Results for 4:01 AM NEUROBIOLOGIST this procedure are in the results section. URIC ACID AM 03/18/2021 Results for 4:01 AM NEUROBIOLOGIST this procedure are in the results section. LACTATE DEHYDROGENASE AM 03/18/2021 Result s for 4:01 AM NEUROBIOLOGIST this procedure are in the results section. GLUCOSE, RANDOM AM 03/18/2021 Results for 4:01 AM NEUROBIOLOGIST this procedure are in the results section. SERUM CREATININE AM 03/18/2021 4:01 AM NEUROBIOLOGIST BLOOD UREA NITROGEN AM 03/18/2021 Results for 4:01 AM NEUROBIOLOGIST this procedure are in the results section. CARBON DIOXIDE LEVEL AM 03/18/2021 Results for 4:01 AM NEUROBIOLOGIST this procedure are in the results section. CHLORIDE LEVEL AM 03/18/2021 Results for 4:01 AM NEUROBIOLOGIST this procedure are in the results section. POTASSIUM LEVEL AM 03/18/2021 Results for 4:01 AM NEUROBIOLOGIST this procedure are in the results section. SODIUM LEVEL AM 03/18/2021 Results for 4:01 AM NEUROBIOLOGIST this procedure are in the results section. COMPLETE BLOOD COUNT AM 03/18/2021 W/ DIFFERENTIAL 4:01 AM NEUROBIOLOGIST ANION GAP AM 03/17/2021 Results for 6:00 AM NEUROBIOLOGIST this procedure are in the results section. .GLOMERULAR FILTRATION AM 03/17/2021 Resul ts for RATE 6:00 AM NEUROBIOLOGIST this procedure are in the results section. SERUM CREATININE AM 03/17/2021 Results for 6:00 AM NEUROBIOLOGIST this procedure are in the results section. MANUAL DIFFERENTIAL AM 03/17/2021 Results for 6:00 AM NEUROBIOLOGIST this procedure are in the results section. Results CBC AM 03/17/2021 Results for 6:00 AM NEUROBIOLOGIST this procedure are in the results section. ALKALINE PHOSPHATASE AM 03/17/2021 Results for 6:00 AM NEUROBIOLOGIST this procedure are in the results section. ASPARTATE AM 03/17/2021 Results for AMINOTRANSFERASE 6:00 AM NEUROBIOLOGIST this proced ure are in the results section. ALANINE AM 03/17/2021 Results for AMINOTRANSFERASE 6:00 AM NEUROBIOLOGIST this proced ure are in the results section. MAGNESIUM LEVEL AM 03/17/2021 Results for 6:00 AM NEUROBIOLOGIST this procedure are in the results section. CALCIUM LEVEL TOTAL AM 03/17/2021 Results for 6:00 AM NEUROBIOLOGIST this procedure are in the results section. ALBUMIN LEVEL AM 03/17/2021 Results for 6:00 AM NEUROBIOLOGIST this procedure are in the results section. FRACTIONATED BILIRUBIN AM 03/17/2021 Resul ts for 6:00 AM NEUROBIOLOGIST this procedure are in the results section. PHOSPHORUS LEVEL AM 03/17/2021 Results for 6:00 AM NEUROBIOLOGIST this procedure are in the results section. URIC ACID AM 03/17/2021 Results for 6:00 AM NEUROBIOLOGIST this procedure are in the results section. LACTATE DEHYDROGENASE AM 03/17/2021 Result s for 6:00 AM NEUROBIOLOGIST this procedure are in the results section. GLUCOSE, RANDOM AM 03/17/2021 Results for 6:00 AM NEUROBIOLOGIST this procedure are in the results section. SERUM CREATININE AM 03/17/2021 6:00 AM NEUROBIOLOGIST BLOOD UREA NITROGEN AM 03/17/2021 Results for 6:00 AM NEUROBIOLOGIST this procedure are in the results section. CARBON DIOXIDE LEVEL AM 03/17/2021 Results for 6:00 AM NEUROBIOLOGIST this procedure are in the results section. CHLORIDE LEVEL AM 03/17/2021 Results for 6:00 AM NEUROBIOLOGIST this procedure are in the results section. POTASSIUM LEVEL AM 03/17/2021 Results for 6:00 AM NEUROBIOLOGIST this procedure are in the results section. SODIUM LEVEL AM 03/17/2021 Results for 6:00 AM NEUROBIOLOGIST this procedure are in the results section. COMPLETE BLOOD COUNT AM 03/17/2021 W/ DIFFERENTIAL 6:00 AM NEUROBIOLOGIST COVID-19 (SARS-COV-2) Now 03/16/2021 Result s for PCR-ASYMPTOMATIC MC 8:39 AM NEUROBIOLOGIST this pro cedure are in the results section. CLOT EXPIRATION DATE Routine 03/16/2021 Results for 5:05 AM NEUROBIOLOGIST this procedure are in the results section. TMP INTERPRETATION Routine 03/16/2021 Results f or ANTIBODY SCREEN 5:05 AM NEUROBIOLOGIST this procedu re NEGATIVE are in the results section. ANION GAP AM 03/16/2021 Results for 5:05 AM NEUROBIOLOGIST this procedure are in the results section. .GLOMERULAR FILTRATION AM 03/16/2021 Resul ts for RATE 5:05 AM NEUROBIOLOGIST this procedure are in the results section. SERUM CREATININE AM 03/16/2021 Results for 5:05 AM NEUROBIOLOGIST this procedure are in the results section. MANUAL DIFFERENTIAL AM 03/16/2021 Results for 5:05 AM NEUROBIOLOGIST this procedure are in the results section. Results CBC AM 03/16/2021 Results for 5:05 AM NEUROBIOLOGIST this procedure are in the results section. ANTIBODY SCREEN Routine 03/16/2021 Results for 5:05 AM NEUROBIOLOGIST this procedure are in the results section. ABORH Routine 03/16/2021 Results for 5:05 AM NEUROBIOLOGIST this procedure are in the results section. TYPE AND SCREEN Routine 03/16/2021 5:05 AM NEUROBIOLOGIST ALKALINE PHOSPHATASE AM 03/16/2021 Results for 5:05 AM NEUROBIOLOGIST this procedure are in the results section. ASPARTATE AM 03/16/2021 Results for AMINOTRANSFERASE 5:05 AM NEUROBIOLOGIST this proced ure are in the results section. ALANINE AM 03/16/2021 Results for AMINOTRANSFERASE 5:05 AM NEUROBIOLOGIST this proced ure are in the results section. MAGNESIUM LEVEL AM 03/16/2021 Results for 5:05 AM NEUROBIOLOGIST this procedure are in the results section. CALCIUM LEVEL TOTAL AM 03/16/2021 Results for 5:05 AM NEUROBIOLOGIST this procedure are in the results section. ALBUMIN LEVEL AM 03/16/2021 Results for 5:05 AM NEUROBIOLOGIST this procedure are in the results section. FRACTIONATED BILIRUBIN AM 03/16/2021 Resul ts for 5:05 AM NEUROBIOLOGIST this procedure are in the results section. PHOSPHORUS LEVEL AM 03/16/2021 Results for 5:05 AM NEUROBIOLOGIST this procedure are in the results section. URIC ACID AM 03/16/2021 Results for 5:05 AM NEUROBIOLOGIST this procedure are in the results section. LACTATE DEHYDROGENASE AM 03/16/2021 Result s for 5:05 AM NEUROBIOLOGIST this procedure are in the results section. GLUCOSE, RANDOM AM 03/16/2021 Results for 5:05 AM NEUROBIOLOGIST this procedure are in the results section. SERUM CREATININE AM 03/16/2021 5:05 AM NEUROBIOLOGIST BLOOD UREA NITROGEN AM 03/16/2021 Results for 5:05 AM NEUROBIOLOGIST this procedure are in the results section. CARBON DIOXIDE LEVEL AM 03/16/2021 Results for 5:05 AM NEUROBIOLOGIST this procedure are in the results section. CHLORIDE LEVEL AM 03/16/2021 Results for 5:05 AM NEUROBIOLOGIST this procedure are in the results section. POTASSIUM LEVEL AM 03/16/2021 Results for 5:05 AM NEUROBIOLOGIST this procedure are in the results section. SODIUM LEVEL AM 03/16/2021 Results for 5:05 AM NEUROBIOLOGIST this procedure are in the results section. COMPLETE BLOOD COUNT AM 03/16/2021 W/ DIFFERENTIAL 5:05 AM NEUROBIOLOGIST ANION GAP AM 03/15/2021 Results for 4:21 AM NEUROBIOLOGIST this procedure are in the results section. .GLOMERULAR FILTRATION AM 03/15/2021 Resul ts for RATE 4:21 AM NEUROBIOLOGIST this procedure are in the results section. SERUM CREATININE AM 03/15/2021 Results for 4:21 AM NEUROBIOLOGIST this procedure are in the results section. MANUAL DIFFERENTIAL AM 03/15/2021 Results for 4:21 AM NEUROBIOLOGIST this procedure are in the results section. Results CBC AM 03/15/2021 Results for 4:21 AM NEUROBIOLOGIST this procedure are in the results section. ALKALINE PHOSPHATASE AM 03/15/2021 Results for 4:21 AM NEUROBIOLOGIST this procedure are in the results section. ASPARTATE AM 03/15/2021 Results for AMINOTRANSFERASE 4:21 AM NEUROBIOLOGIST this proced ure are in the results section. ALANINE AM 03/15/2021 Results for AMINOTRANSFERASE 4:21 AM NEUROBIOLOGIST this proced ure are in the results section. MAGNESIUM LEVEL AM 03/15/2021 Results for 4:21 AM NEUROBIOLOGIST this procedure are in the results section. CALCIUM LEVEL TOTAL AM 03/15/2021 Results for 4:21 AM NEUROBIOLOGIST this procedure are in the results section. ALBUMIN LEVEL AM 03/15/2021 Results for 4:21 AM NEUROBIOLOGIST this procedure are in the results section. FRACTIONATED BILIRUBIN AM 03/15/2021 Resul ts for 4:21 AM NEUROBIOLOGIST this procedure are in the results section. PHOSPHORUS LEVEL AM 03/15/2021 Results for 4:21 AM NEUROBIOLOGIST this procedure are in the results section. URIC ACID AM 03/15/2021 Results for 4:21 AM NEUROBIOLOGIST this procedure are in the results section. LACTATE DEHYDROGENASE AM 03/15/2021 Result s for 4:21 AM NEUROBIOLOGIST this procedure are in the results section. GLUCOSE, RANDOM AM 03/15/2021 Results for 4:21 AM NEUROBIOLOGIST this procedure are in the results section. SERUM CREATININE AM 03/15/2021 4:21 AM NEUROBIOLOGIST BLOOD UREA NITROGEN AM 03/15/2021 Results for 4:21 AM NEUROBIOLOGIST this procedure are in the results section. CARBON DIOXIDE LEVEL AM 03/15/2021 Results for 4:21 AM NEUROBIOLOGIST this procedure are in the results section. CHLORIDE LEVEL AM 03/15/2021 Results for 4:21 AM NEUROBIOLOGIST this procedure are in the results section. POTASSIUM LEVEL AM 03/15/2021 Results for 4:21 AM NEUROBIOLOGIST this procedure are in the results section. SODIUM LEVEL AM 03/15/2021 Results for 4:21 AM NEUROBIOLOGIST this procedure are in the results section. COMPLETE BLOOD COUNT AM 03/15/2021 W/ DIFFERENTIAL 4:21 AM NEUROBIOLOGIST ANION GAP AM 03/14/2021 Results for 5:22 AM NEUROBIOLOGIST this procedure are in the results section. .GLOMERULAR FILTRATION AM 03/14/2021 Resul ts for RATE 5:22 AM NEUROBIOLOGIST this procedure are in the results section. SERUM CREATININE AM 03/14/2021 Results for 5:22 AM NEUROBIOLOGIST this procedure are in the results section. MANUAL DIFFERENTIAL AM 03/14/2021 Results for 5:22 AM NEUROBIOLOGIST this procedure are in the results section. Results CBC AM 03/14/2021 Results for 5:22 AM NEUROBIOLOGIST this procedure are in the results section. ALKALINE PHOSPHATASE AM 03/14/2021 Results for 5:22 AM NEUROBIOLOGIST this procedure are in the results section. ASPARTATE AM 03/14/2021 Results for AMINOTRANSFERASE 5:22 AM NEUROBIOLOGIST this proced ure are in the results section. ALANINE AM 03/14/2021 Results for AMINOTRANSFERASE 5:22 AM NEUROBIOLOGIST this proced ure are in the results section. MAGNESIUM LEVEL AM 03/14/2021 Results for 5:22 AM NEUROBIOLOGIST this procedure are in the results section. CALCIUM LEVEL TOTAL AM 03/14/2021 Results for 5:22 AM NEUROBIOLOGIST this procedure are in the results section. ALBUMIN LEVEL AM 03/14/2021 Results for 5:22 AM NEUROBIOLOGIST this procedure are in the results section. FRACTIONATED BILIRUBIN AM 03/14/2021 Resul ts for 5:22 AM NEUROBIOLOGIST this procedure are in the results section. PHOSPHORUS LEVEL AM 03/14/2021 Results for 5:22 AM NEUROBIOLOGIST this procedure are in the results section. URIC ACID AM 03/14/2021 Results for 5:22 AM NEUROBIOLOGIST this procedure are in the results section. LACTATE DEHYDROGENASE AM 03/14/2021 Result s for 5:22 AM NEUROBIOLOGIST this procedure are in the results section. GLUCOSE, RANDOM AM 03/14/2021 Results for 5:22 AM NEUROBIOLOGIST this procedure are in the results section. SERUM CREATININE AM 03/14/2021 5:22 AM NEUROBIOLOGIST BLOOD UREA NITROGEN AM 03/14/2021 Results for 5:22 AM NEUROBIOLOGIST this procedure are in the results section. CARBON DIOXIDE LEVEL AM 03/14/2021 Results for 5:22 AM NEUROBIOLOGIST this procedure are in the results section. CHLORIDE LEVEL AM 03/14/2021 Results for 5:22 AM NEUROBIOLOGIST this procedure are in the results section. POTASSIUM LEVEL AM 03/14/2021 Results for 5:22 AM NEUROBIOLOGIST this procedure are in the results section. SODIUM LEVEL AM 03/14/2021 Results for 5:22 AM NEUROBIOLOGIST this procedure are in the results section. COMPLETE BLOOD COUNT AM 03/14/2021 W/ DIFFERENTIAL 5:22 AM NEUROBIOLOGIST TMP INTERPRETATION Routine 03/13/2021 Results f or ANTIBODY SCREEN 4:53 AM NEUROBIOLOGIST this procedu re NEGATIVE are in the results section. CLOT EXPIRATION DATE Routine 03/13/2021 Results for 4:53 AM NEUROBIOLOGIST this procedure are in the results section. ANION GAP AM 03/13/2021 Results for 4:53 AM NEUROBIOLOGIST this procedure are in the results section. .GLOMERULAR FILTRATION AM 03/13/2021 Resul ts for RATE 4:53 AM NEUROBIOLOGIST this procedure are in the results section. SERUM CREATININE AM 03/13/2021 Results for 4:53 AM NEUROBIOLOGIST this procedure are in the results section. MANUAL DIFFERENTIAL AM 03/13/2021 Results for 4:53 AM NEUROBIOLOGIST this procedure are in the results section. Results CBC AM 03/13/2021 Results for 4:53 AM NEUROBIOLOGIST this procedure are in the results section. ANTIBODY SCREEN Routine 03/13/2021 Results for 4:53 AM NEUROBIOLOGIST this procedure are in the results section. ABORH Routine 03/13/2021 Results for 4:53 AM NEUROBIOLOGIST this procedure are in the results section. TYPE AND SCREEN Routine 03/13/2021 4:53 AM NEUROBIOLOGIST ALKALINE PHOSPHATASE AM 03/13/2021 Results for 4:53 AM NEUROBIOLOGIST this procedure are in the results section. ASPARTATE AM 03/13/2021 Results for AMINOTRANSFERASE 4:53 AM NEUROBIOLOGIST this proced ure are in the results section. ALANINE AM 03/13/2021 Results for AMINOTRANSFERASE 4:53 AM NEUROBIOLOGIST this proced ure are in the results section. MAGNESIUM LEVEL AM 03/13/2021 Results for 4:53 AM NEUROBIOLOGIST this procedure are in the results section. CALCIUM LEVEL TOTAL AM 03/13/2021 Results for 4:53 AM NEUROBIOLOGIST this procedure are in the results section. ALBUMIN LEVEL AM 03/13/2021 Results for 4:53 AM NEUROBIOLOGIST this procedure are in the results section. FRACTIONATED BILIRUBIN AM 03/13/2021 Resul ts for 4:53 AM NEUROBIOLOGIST this procedure are in the results section. PHOSPHORUS LEVEL AM 03/13/2021 Results for 4:53 AM NEUROBIOLOGIST this procedure are in the results section. URIC ACID AM 03/13/2021 Results for 4:53 AM NEUROBIOLOGIST this procedure are in the results section. LACTATE DEHYDROGENASE AM 03/13/2021 Result s for 4:53 AM NEUROBIOLOGIST this procedure are in the results section. GLUCOSE, RANDOM AM 03/13/2021 Results for 4:53 AM NEUROBIOLOGIST this procedure are in the results section. SERUM CREATININE AM 03/13/2021 4:53 AM NEUROBIOLOGIST BLOOD UREA NITROGEN AM 03/13/2021 Results for 4:53 AM NEUROBIOLOGIST this procedure are in the results section. CARBON DIOXIDE LEVEL AM 03/13/2021 Results for 4:53 AM NEUROBIOLOGIST this procedure are in the results section. CHLORIDE LEVEL AM 03/13/2021 Results for 4:53 AM NEUROBIOLOGIST this procedure are in the results section. POTASSIUM LEVEL AM 03/13/2021 Results for 4:53 AM NEUROBIOLOGIST this procedure are in the results section. SODIUM LEVEL AM 03/13/2021 Results for 4:53 AM NEUROBIOLOGIST this procedure are in the results section. COMPLETE BLOOD COUNT AM 03/13/2021 W/ DIFFERENTIAL 4:53 AM NEUROBIOLOGIST URINALYSIS WITH Routine 03/12/2021 Results for MICROSCOPIC IF 8:28 AM NEUROBIOLOGIST this procedur e INDICATED are in the results section. URINALYSIS MICROSCOPIC Now 03/12/2021 Resul ts for 8:28 AM NEUROBIOLOGIST this procedure are in the results section. URINE CULTURE Now 03/12/2021 Results for 8:28 AM NEUROBIOLOGIST this procedure are in the results section. ANION GAP AM 03/12/2021 Results for 2:16 AM NEUROBIOLOGIST this procedure are in the results section. .GLOMERULAR FILTRATION AM 03/12/2021 Resul ts for RATE 2:16 AM NEUROBIOLOGIST this procedure are in the results section. SERUM CREATININE AM 03/12/2021 Results for 2:16 AM NEUROBIOLOGIST this procedure are in the results section. MANUAL DIFFERENTIAL AM 03/12/2021 Results for 2:16 AM NEUROBIOLOGIST this procedure are in the results section. Results CBC AM 03/12/2021 Results for 2:16 AM NEUROBIOLOGIST this procedure are in the results section. ALKALINE PHOSPHATASE AM 03/12/2021 Results for 2:16 AM NEUROBIOLOGIST this procedure are in the results section. ASPARTATE AM 03/12/2021 Results for AMINOTRANSFERASE 2:16 AM NEUROBIOLOGIST this proced ure are in the results section. ALANINE AM 03/12/2021 Results for AMINOTRANSFERASE 2:16 AM NEUROBIOLOGIST this proced ure are in the results section. MAGNESIUM LEVEL AM 03/12/2021 Results for 2:16 AM NEUROBIOLOGIST this procedure are in the results section. CALCIUM LEVEL TOTAL AM 03/12/2021 Results for 2:16 AM NEUROBIOLOGIST this procedure are in the results section. ALBUMIN LEVEL AM 03/12/2021 Results for 2:16 AM NEUROBIOLOGIST this procedure are in the results section. FRACTIONATED BILIRUBIN AM 03/12/2021 Resul ts for 2:16 AM NEUROBIOLOGIST this procedure are in the results section. PHOSPHORUS LEVEL AM 03/12/2021 Results for 2:16 AM NEUROBIOLOGIST this procedure are in the results section. URIC ACID AM 03/12/2021 Results for 2:16 AM NEUROBIOLOGIST this procedure are in the results section. LACTATE DEHYDROGENASE AM 03/12/2021 Result s for 2:16 AM NEUROBIOLOGIST this procedure are in the results section. GLUCOSE, RANDOM AM 03/12/2021 Results for 2:16 AM NEUROBIOLOGIST this procedure are in the results section. SERUM CREATININE AM 03/12/2021 2:16 AM NEUROBIOLOGIST BLOOD UREA NITROGEN AM 03/12/2021 Results for 2:16 AM NEUROBIOLOGIST this procedure are in the results section. CARBON DIOXIDE LEVEL AM 03/12/2021 Results for 2:16 AM NEUROBIOLOGIST this procedure are in the results section. CHLORIDE LEVEL AM 03/12/2021 Results for 2:16 AM NEUROBIOLOGIST this procedure are in the results section. POTASSIUM LEVEL AM 03/12/2021 Results for 2:16 AM NEUROBIOLOGIST this procedure are in the results section. SODIUM LEVEL AM 03/12/2021 Results for 2:16 AM NEUROBIOLOGIST this procedure are in the results section. COMPLETE BLOOD COUNT AM 03/12/2021 W/ DIFFERENTIAL 2:[address] HEAD WO CONTRAST STAT 03/11/2021 Results for 11:18 PM NEUROBIOLOGIST this procedure are in the results section. POC ARTERIAL BLOOD GAS Routine 03/11/2021 Resul ts for 10:28 PM NEUROBIOLOGIST this procedure are in the results section. POC CRITICAL Routine 03/11/2021 Results for 10:28 PM NEUROBIOLOGIST this procedure are in the results section. POC GLUCOSE SCREEN Routine 03/11/2021 Results f or 9:55 PM NEUROBIOLOGIST this procedure are in the results section. ANION GAP AM 03/11/2021 Results for 1:34 AM NEUROBIOLOGIST this procedure are in the results section. .GLOMERULAR FILTRATION AM 03/11/2021 Resul ts for RATE 1:34 AM NEUROBIOLOGIST this procedure are in the results section. SERUM CREATININE AM 03/11/2021 Results for 1:34 AM NEUROBIOLOGIST this procedure are in the results section. MANUAL DIFFERENTIAL AM 03/11/2021 Results for 1:34 AM NEUROBIOLOGIST this procedure are in the results section. Results CBC AM 03/11/2021 Results for 1:34 AM NEUROBIOLOGIST this procedure are in the results section. ALKALINE PHOSPHATASE AM 03/11/2021 Results for 1:34 AM NEUROBIOLOGIST this procedure are in the results section. ASPARTATE AM 03/11/2021 Results for AMINOTRANSFERASE 1:34 AM NEUROBIOLOGIST this proced ure are in the results section. ALANINE AM 03/11/2021 Results for AMINOTRANSFERASE 1:34 AM NEUROBIOLOGIST this proced ure are in the results section. MAGNESIUM LEVEL AM 03/11/2021 Results for 1:34 AM NEUROBIOLOGIST this procedure are in the results section. CALCIUM LEVEL TOTAL AM 03/11/2021 Results for 1:34 AM NEUROBIOLOGIST this procedure are in the results section. ALBUMIN LEVEL AM 03/11/2021 Results for 1:34 AM NEUROBIOLOGIST this procedure are in the results section. FRACTIONATED BILIRUBIN AM 03/11/2021 Resul ts for 1:34 AM NEUROBIOLOGIST this procedure are in the results section. PHOSPHORUS LEVEL AM 03/11/2021 Results for 1:34 AM NEUROBIOLOGIST this procedure are in the results section. URIC ACID AM 03/11/2021 Results for 1:34 AM NEUROBIOLOGIST this procedure are in the results section. LACTATE DEHYDROGENASE AM 03/11/2021 Result s for 1:34 AM NEUROBIOLOGIST this procedure are in the results section. GLUCOSE, RANDOM AM 03/11/2021 Results for 1:34 AM NEUROBIOLOGIST this procedure are in the results section. SERUM CREATININE AM 03/11/2021 1:34 AM NEUROBIOLOGIST BLOOD UREA NITROGEN AM 03/11/2021 Results for 1:34 AM NEUROBIOLOGIST this procedure are in the results section. CARBON DIOXIDE LEVEL AM 03/11/2021 Results for 1:34 AM NEUROBIOLOGIST this procedure are in the results section. CHLORIDE LEVEL AM 03/11/2021 Results for 1:34 AM NEUROBIOLOGIST this procedure are in the results section. POTASSIUM LEVEL AM 03/11/2021 Results for 1:34 AM NEUROBIOLOGIST this procedure are in the results section. SODIUM LEVEL AM 03/11/2021 Results for 1:34 AM NEUROBIOLOGIST this procedure are in the results section. COMPLETE BLOOD COUNT AM 03/11/2021 W/ DIFFERENTIAL 1:34 AM NEUROBIOLOGIST TMP INTERPRETATION Routine 03/10/2021 Results f or ANTIBODY SCREEN 2:43 AM NEUROBIOLOGIST this procedu re NEGATIVE are in the results section. CLOT EXPIRATION DATE Routine 03/10/2021 Results for 2:43 AM NEUROBIOLOGIST this procedure are in the results section. ANION GAP AM 03/10/2021 Results for 2:43 AM NEUROBIOLOGIST this procedure are in the results section. .GLOMERULAR FILTRATION AM 03/10/2021 Resul ts for RATE 2:43 AM NEUROBIOLOGIST this procedure are in the results section. SERUM CREATININE AM 03/10/2021 Results for 2:43 AM NEUROBIOLOGIST this procedure are in the results section. MANUAL DIFFERENTIAL AM 03/10/2021 Results for 2:43 AM NEUROBIOLOGIST this procedure are in the results section. Results CBC AM 03/10/2021 Results for 2:43 AM NEUROBIOLOGIST this procedure are in the results section. ANTIBODY SCREEN Routine 03/10/2021 Results for 2:43 AM NEUROBIOLOGIST this procedure are in the results section. ABORH Routine 03/10/2021 Results for 2:43 AM NEUROBIOLOGIST this procedure are in the results section. TYPE AND SCREEN Routine 03/10/2021 2:43 AM NEUROBIOLOGIST ALKALINE PHOSPHATASE AM 03/10/2021 Results for 2:43 AM NEUROBIOLOGIST this procedure are in the results section. ASPARTATE AM 03/10/2021 Results for AMINOTRANSFERASE 2:43 AM NEUROBIOLOGIST this proced ure are in the results section. ALANINE AM 03/10/2021 Results for AMINOTRANSFERASE 2:43 AM NEUROBIOLOGIST this proced ure are in the results section. MAGNESIUM LEVEL AM 03/10/2021 Results for 2:43 AM NEUROBIOLOGIST this procedure are in the results section. CALCIUM LEVEL TOTAL AM 03/10/2021 Results for 2:43 AM NEUROBIOLOGIST this procedure are in the results section. ALBUMIN LEVEL AM 03/10/2021 Results for 2:43 AM NEUROBIOLOGIST this procedure are in the results section. FRACTIONATED BILIRUBIN AM 03/10/2021 Resul ts for 2:43 AM NEUROBIOLOGIST this procedure are in the results section. PHOSPHORUS LEVEL AM 03/10/2021 Results for 2:43 AM NEUROBIOLOGIST this procedure are in the results section. URIC ACID AM 03/10/2021 Results for 2:43 AM NEUROBIOLOGIST this procedure are in the results section. LACTATE DEHYDROGENASE AM 03/10/2021 Result s for 2:43 AM NEUROBIOLOGIST this procedure are in the results section. GLUCOSE, RANDOM AM 03/10/2021 Results for 2:43 AM NEUROBIOLOGIST this procedure are in the results section. SERUM CREATININE AM 03/10/2021 2:43 AM NEUROBIOLOGIST BLOOD UREA NITROGEN AM 03/10/2021 Results for 2:43 AM NEUROBIOLOGIST this procedure are in the results section. CARBON DIOXIDE LEVEL AM 03/10/2021 Results for 2:43 AM NEUROBIOLOGIST this procedure are in the results section. CHLORIDE LEVEL AM 03/10/2021 Results for 2:43 AM NEUROBIOLOGIST this procedure are in the results section. POTASSIUM LEVEL AM 03/10/2021 Results for 2:43 AM NEUROBIOLOGIST this procedure are in the results section. SODIUM LEVEL AM 03/10/2021 Results for 2:43 AM NEUROBIOLOGIST this procedure are in the results section. COMPLETE BLOOD COUNT AM 03/10/2021 W/ DIFFERENTIAL 2:43 AM NEUROBIOLOGIST COVID-19 (SARS-COV-2) Now 03/09/2021 Result s for PCR-ASYMPTOMATIC MC 9:40 AM NEUROBIOLOGIST this pro cedure are in the results section. ANION GAP AM 03/09/2021 Results for 3:42 AM NEUROBIOLOGIST this procedure are in the results section. .GLOMERULAR FILTRATION AM 03/09/2021 Resul ts for RATE 3:42 AM NEUROBIOLOGIST this procedure are in the results section. SERUM CREATININE AM 03/09/2021 Results for 3:42 AM NEUROBIOLOGIST this procedure are in the results section. MANUAL DIFFERENTIAL AM 03/09/2021 Results for 3:42 AM NEUROBIOLOGIST this procedure are in the results section. Results CBC AM 03/09/2021 Results for 3:42 AM NEUROBIOLOGIST this procedure are in the results section. ALKALINE PHOSPHATASE AM 03/09/2021 Results for 3:42 AM NEUROBIOLOGIST this procedure are in the results section. ASPARTATE AM 03/09/2021 Results for AMINOTRANSFERASE 3:42 AM NEUROBIOLOGIST this proced ure are in the results section. ALANINE AM 03/09/2021 Results for AMINOTRANSFERASE 3:42 AM NEUROBIOLOGIST this proced ure are in the results section. MAGNESIUM LEVEL AM 03/09/2021 Results for 3:42 AM NEUROBIOLOGIST this procedure are in the results section. CALCIUM LEVEL TOTAL AM 03/09/2021 Results for 3:42 AM NEUROBIOLOGIST this procedure are in the results section. ALBUMIN LEVEL AM 03/09/2021 Results for 3:42 AM NEUROBIOLOGIST this procedure are in the results section. FRACTIONATED BILIRUBIN AM 03/09/2021 Resul ts for 3:42 AM NEUROBIOLOGIST this procedure are in the results section. PHOSPHORUS LEVEL AM 03/09/2021 Results for 3:42 AM NEUROBIOLOGIST this procedure are in the results section. URIC ACID AM 03/09/2021 Results for 3:42 AM NEUROBIOLOGIST this procedure are in the results section. LACTATE DEHYDROGENASE AM 03/09/2021 Result s for 3:42 AM NEUROBIOLOGIST this procedure are in the results section. GLUCOSE, RANDOM AM 03/09/2021 Results for 3:42 AM NEUROBIOLOGIST this procedure are in the results section. SERUM CREATININE AM 03/09/2021 3:42 AM NEUROBIOLOGIST BLOOD UREA NITROGEN AM 03/09/2021 Results for 3:42 AM NEUROBIOLOGIST this procedure are in the results section. CARBON DIOXIDE LEVEL AM 03/09/2021 Results for 3:42 AM NEUROBIOLOGIST this procedure are in the results section. CHLORIDE LEVEL AM 03/09/2021 Results for 3:42 AM NEUROBIOLOGIST this procedure are in the results section. POTASSIUM LEVEL AM 03/09/2021 Results for 3:42 AM NEUROBIOLOGIST this procedure are in the results section. SODIUM LEVEL AM 03/09/2021 Results for 3:42 AM NEUROBIOLOGIST this procedure are in the results section. COMPLETE BLOOD COUNT AM 03/09/2021 W/ DIFFERENTIAL 3:42 AM NEUROBIOLOGIST ANION GAP AM 03/08/2021 Results for 4:25 AM NEUROBIOLOGIST this procedure are in the results section. .GLOMERULAR FILTRATION AM 03/08/2021 Resul ts for RATE 4:25 AM NEUROBIOLOGIST this procedure are in the results section. SERUM CREATININE AM 03/08/2021 Results for 4:25 AM NEUROBIOLOGIST this procedure are in the results section. MANUAL DIFFERENTIAL AM 03/08/2021 Results for 4:25 AM NEUROBIOLOGIST this procedure are in the results section. Results CBC AM 03/08/2021 Results for 4:25 AM NEUROBIOLOGIST this procedure are in the results section. ALKALINE PHOSPHATASE AM 03/08/2021 Results for 4:25 AM NEUROBIOLOGIST this procedure are in the results section. ASPARTATE AM 03/08/2021 Results for AMINOTRANSFERASE 4:25 AM NEUROBIOLOGIST this proced ure are in the results section. ALANINE AM 03/08/2021 Results for AMINOTRANSFERASE 4:25 AM NEUROBIOLOGIST this proced ure are in the results section. MAGNESIUM LEVEL AM 03/08/2021 Results for 4:25 AM NEUROBIOLOGIST this procedure are in the results section. CALCIUM LEVEL TOTAL AM 03/08/2021 Results for 4:25 AM NEUROBIOLOGIST this procedure are in the results section. ALBUMIN LEVEL AM 03/08/2021 Results for 4:25 AM NEUROBIOLOGIST this procedure are in the results section. FRACTIONATED BILIRUBIN AM 03/08/2021 Resul ts for 4:25 AM NEUROBIOLOGIST this procedure are in the results section. PHOSPHORUS LEVEL AM 03/08/2021 Results for 4:25 AM NEUROBIOLOGIST this procedure are in the results section. URIC ACID AM 03/08/2021 Results for 4:25 AM NEUROBIOLOGIST this procedure are in the results section. LACTATE DEHYDROGENASE AM 03/08/2021 Result s for 4:25 AM NEUROBIOLOGIST this procedure are in the results section. GLUCOSE, RANDOM AM 03/08/2021 Results for 4:25 AM NEUROBIOLOGIST this procedure are in the results section. SERUM CREATININE AM 03/08/2021 4:25 AM NEUROBIOLOGIST BLOOD UREA NITROGEN AM 03/08/2021 Results for 4:25 AM NEUROBIOLOGIST this procedure are in the results section. CARBON DIOXIDE LEVEL AM 03/08/2021 Results for 4:25 AM NEUROBIOLOGIST this procedure are in the results section. CHLORIDE LEVEL AM 03/08/2021 Results for 4:25 AM NEUROBIOLOGIST this procedure are in the results section. POTASSIUM LEVEL AM 03/08/2021 Results for 4:25 AM NEUROBIOLOGIST this procedure are in the results section. SODIUM LEVEL AM 03/08/2021 Results for 4:25 AM NEUROBIOLOGIST this procedure are in the results section. COMPLETE BLOOD COUNT AM 03/08/2021 W/ DIFFERENTIAL 4:25 AM NEUROBIOLOGIST CLOT EXPIRATION DATE Routine 03/07/2021 Results for 4:02 AM NEUROBIOLOGIST this procedure are in the results section. TMP INTERPRETATION Routine 03/07/2021 Results f or ANTIBODY SCREEN 4:02 AM NEUROBIOLOGIST this procedu re NEGATIVE are in the results section. ANION GAP AM 03/07/2021 Results for 4:02 AM NEUROBIOLOGIST this procedure are in the results section. .GLOMERULAR FILTRATION AM 03/07/2021 Resul ts for RATE 4:02 AM NEUROBIOLOGIST this procedure are in the results section. SERUM CREATININE AM 03/07/2021 Results for 4:02 AM NEUROBIOLOGIST this procedure are in the results section. MANUAL DIFFERENTIAL AM 03/07/2021 Results for 4:02 AM NEUROBIOLOGIST this procedure are in the results section. Results CBC AM 03/07/2021 Results for 4:02 AM NEUROBIOLOGIST this procedure are in the results section. ANTIBODY SCREEN Routine 03/07/2021 Results for 4:02 AM NEUROBIOLOGIST this procedure are in the results section. ABORH Routine 03/07/2021 Results for 4:02 AM NEUROBIOLOGIST this procedure are in the results section. TYPE AND SCREEN Routine 03/07/2021 4:02 AM NEUROBIOLOGIST ALKALINE PHOSPHATASE AM 03/07/2021 Results for 4:02 AM NEUROBIOLOGIST this procedure are in the results section. ASPARTATE AM 03/07/2021 Results for AMINOTRANSFERASE 4:02 AM NEUROBIOLOGIST this proced ure are in the results section. ALANINE AM 03/07/2021 Results for AMINOTRANSFERASE 4:02 AM NEUROBIOLOGIST this proced ure are in the results section. MAGNESIUM LEVEL AM 03/07/2021 Results for 4:02 AM NEUROBIOLOGIST this procedure are in the results section. CALCIUM LEVEL TOTAL AM 03/07/2021 Results for 4:02 AM NEUROBIOLOGIST this procedure are in the results section. ALBUMIN LEVEL AM 03/07/2021 Results for 4:02 AM NEUROBIOLOGIST this procedure are in the results section. FRACTIONATED BILIRUBIN AM 03/07/2021 Resul ts for 4:02 AM NEUROBIOLOGIST this procedure are in the results section. PHOSPHORUS LEVEL AM 03/07/2021 Results for 4:02 AM NEUROBIOLOGIST this procedure are in the results section. URIC ACID AM 03/07/2021 Results for 4:02 AM NEUROBIOLOGIST this procedure are in the results section. LACTATE DEHYDROGENASE AM 03/07/2021 Result s for 4:02 AM NEUROBIOLOGIST this procedure are in the results section. GLUCOSE, RANDOM AM 03/07/2021 Results for 4:02 AM NEUROBIOLOGIST this procedure are in the results section. SERUM CREATININE AM 03/07/2021 4:02 AM NEUROBIOLOGIST BLOOD UREA NITROGEN AM 03/07/2021 Results for 4:02 AM NEUROBIOLOGIST this procedure are in the results section. CARBON DIOXIDE LEVEL AM 03/07/2021 Results for 4:02 AM NEUROBIOLOGIST this procedure are in the results section. CHLORIDE LEVEL AM 03/07/2021 Results for 4:02 AM NEUROBIOLOGIST this procedure are in the results section. POTASSIUM LEVEL AM 03/07/2021 Results for 4:02 AM NEUROBIOLOGIST this procedure are in the results section. SODIUM LEVEL AM 03/07/2021 Results for 4:02 AM NEUROBIOLOGIST this procedure are in the results section. COMPLETE BLOOD COUNT AM 03/07/2021 W/ DIFFERENTIAL 4:02 AM NEUROBIOLOGIST ANION GAP AM 03/06/2021 Results for 4:13 AM NEUROBIOLOGIST this procedure are in the results section. .GLOMERULAR FILTRATION AM 03/06/2021 Resul ts for RATE 4:13 AM NEUROBIOLOGIST this procedure are in the results section. SERUM CREATININE AM 03/06/2021 Results for 4:13 AM NEUROBIOLOGIST this procedure are in the results section. MANUAL DIFFERENTIAL AM 03/06/2021 Results for 4:13 AM NEUROBIOLOGIST this procedure are in the results section. Results CBC AM 03/06/2021 Results for 4:13 AM NEUROBIOLOGIST this procedure are in the results section. ALKALINE PHOSPHATASE AM 03/06/2021 Results for 4:13 AM NEUROBIOLOGIST this procedure are in the results section. ASPARTATE AM 03/06/2021 Results for AMINOTRANSFERASE 4:13 AM NEUROBIOLOGIST this proced ure are in the results section. ALANINE AM 03/06/2021 Results for AMINOTRANSFERASE 4:13 AM NEUROBIOLOGIST this proced ure are in the results section. MAGNESIUM LEVEL AM 03/06/2021 Results for 4:13 AM NEUROBIOLOGIST this procedure are in the results section. CALCIUM LEVEL TOTAL AM 03/06/2021 Results for 4:13 AM NEUROBIOLOGIST this procedure are in the results section. ALBUMIN LEVEL AM 03/06/2021 Results for 4:13 AM NEUROBIOLOGIST this procedure are in the results section. FRACTIONATED BILIRUBIN AM 03/06/2021 Resul ts for 4:13 AM NEUROBIOLOGIST this procedure are in the results section. PHOSPHORUS LEVEL AM 03/06/2021 Results for 4:13 AM NEUROBIOLOGIST this procedure are in the results section. URIC ACID AM 03/06/2021 Results for 4:13 AM NEUROBIOLOGIST this procedure are in the results section. LACTATE DEHYDROGENASE AM 03/06/2021 Result s for 4:13 AM NEUROBIOLOGIST this procedure are in the results section. GLUCOSE, RANDOM AM 03/06/2021 Results for 4:13 AM NEUROBIOLOGIST this procedure are in the results section. SERUM CREATININE AM 03/06/2021 4:13 AM NEUROBIOLOGIST BLOOD UREA NITROGEN AM 03/06/2021 Results for 4:13 AM NEUROBIOLOGIST this procedure are in the results section. CARBON DIOXIDE LEVEL AM 03/06/2021 Results for 4:13 AM NEUROBIOLOGIST this procedure are in the results section. CHLORIDE LEVEL AM 03/06/2021 Results for 4:13 AM NEUROBIOLOGIST this procedure are in the results section. POTASSIUM LEVEL AM 03/06/2021 Results for 4:13 AM NEUROBIOLOGIST this procedure are in the results section. SODIUM LEVEL AM 03/06/2021 Results for 4:13 AM NEUROBIOLOGIST this procedure are in the results section. COMPLETE BLOOD COUNT AM 03/06/2021 W/ DIFFERENTIAL 4:13 AM NEUROBIOLOGIST ANION GAP AM 03/05/2021 Results for 6:30 AM NEUROBIOLOGIST this procedure are in the results section. .GLOMERULAR FILTRATION AM 03/05/2021 Resul ts for RATE 6:30 AM NEUROBIOLOGIST this procedure are in the results section. SERUM CREATININE AM 03/05/2021 Results for 6:30 AM NEUROBIOLOGIST this procedure are in the results section. MANUAL DIFFERENTIAL AM 03/05/2021 Results for 6:30 AM NEUROBIOLOGIST this procedure are in the results section. Results CBC AM 03/05/2021 Results for 6:30 AM NEUROBIOLOGIST this procedure are in the results section. ALKALINE PHOSPHATASE AM 03/05/2021 Results for 6:30 AM NEUROBIOLOGIST this procedure are in the results section. ASPARTATE AM 03/05/2021 Results for AMINOTRANSFERASE 6:30 AM NEUROBIOLOGIST this proced ure are in the results section. ALANINE AM 03/05/2021 Results for AMINOTRANSFERASE 6:30 AM NEUROBIOLOGIST this proced ure are in the results section. MAGNESIUM LEVEL AM 03/05/2021 Results for 6:30 AM NEUROBIOLOGIST this procedure are in the results section. CALCIUM LEVEL TOTAL AM 03/05/2021 Results for 6:30 AM NEUROBIOLOGIST this procedure are in the results section. ALBUMIN LEVEL AM 03/05/2021 Results for 6:30 AM NEUROBIOLOGIST this procedure are in the results section. FRACTIONATED BILIRUBIN AM 03/05/2021 Resul ts for 6:30 AM NEUROBIOLOGIST this procedure are in the results section. PHOSPHORUS LEVEL AM 03/05/2021 Results for 6:30 AM NEUROBIOLOGIST this procedure are in the results section. URIC ACID AM 03/05/2021 Results for 6:30 AM NEUROBIOLOGIST this procedure are in the results section. LACTATE DEHYDROGENASE AM 03/05/2021 Result s for 6:30 AM NEUROBIOLOGIST this procedure are in the results section. GLUCOSE, RANDOM AM 03/05/2021 Results for 6:30 AM NEUROBIOLOGIST this procedure are in the results section. SERUM CREATININE AM 03/05/2021 6:30 AM NEUROBIOLOGIST BLOOD UREA NITROGEN AM 03/05/2021 Results for 6:30 AM NEUROBIOLOGIST this procedure are in the results section. CARBON DIOXIDE LEVEL AM 03/05/2021 Results for 6:30 AM NEUROBIOLOGIST this procedure are in the results section. CHLORIDE LEVEL AM 03/05/2021 Results for 6:30 AM NEUROBIOLOGIST this procedure are in the results section. POTASSIUM LEVEL AM 03/05/2021 Results for 6:30 AM NEUROBIOLOGIST this procedure are in the results section. SODIUM LEVEL AM 03/05/2021 Results for 6:30 AM NEUROBIOLOGIST this procedure are in the results section. COMPLETE BLOOD COUNT AM 03/05/2021 W/ DIFFERENTIAL 6:30 AM NEUROBIOLOGIST TMP INTERPRETATION Routine 03/04/2021 Results f or ANTIBODY SCREEN 4:35 AM NEUROBIOLOGIST this procedu re NEGATIVE are in the results section. CLOT EXPIRATION DATE Routine 03/04/2021 Results for 4:35 AM NEUROBIOLOGIST this procedure are in the results section. ANION GAP AM 03/04/2021 Results for 4:35 AM NEUROBIOLOGIST this procedure are in the results section. .GLOMERULAR FILTRATION AM 03/04/2021 Resul ts for RATE 4:35 AM NEUROBIOLOGIST this procedure are in the results section. SERUM CREATININE AM 03/04/2021 Results for 4:35 AM NEUROBIOLOGIST this procedure are in the results section. MANUAL DIFFERENTIAL AM 03/04/2021 Results for 4:35 AM NEUROBIOLOGIST this procedure are in the results section. Results CBC AM 03/04/2021 Results for 4:35 AM NEUROBIOLOGIST this procedure are in the results section. ANTIBODY SCREEN Routine 03/04/2021 Results for 4:35 AM NEUROBIOLOGIST this procedure are in the results section. ABORH Routine 03/04/2021 Results for 4:35 AM NEUROBIOLOGIST this procedure are in the results section. TYPE AND SCREEN Routine 03/04/2021 4:35 AM NEUROBIOLOGIST ALKALINE PHOSPHATASE AM 03/04/2021 Results for 4:35 AM NEUROBIOLOGIST this procedure are in the results section. ASPARTATE AM 03/04/2021 Results for AMINOTRANSFERASE 4:35 AM NEUROBIOLOGIST this proced ure are in the results section. ALANINE AM 03/04/2021 Results for AMINOTRANSFERASE 4:35 AM NEUROBIOLOGIST this proced ure are in the results section. MAGNESIUM LEVEL AM 03/04/2021 Results for 4:35 AM NEUROBIOLOGIST this procedure are in the results section. CALCIUM LEVEL TOTAL AM 03/04/2021 Results for 4:35 AM NEUROBIOLOGIST this procedure are in the results section. ALBUMIN LEVEL AM 03/04/2021 Results for 4:35 AM NEUROBIOLOGIST this procedure are in the results section. FRACTIONATED BILIRUBIN AM 03/04/2021 Resul ts for 4:35 AM NEUROBIOLOGIST this procedure are in the results section. PHOSPHORUS LEVEL AM 03/04/2021 Results for 4:35 AM NEUROBIOLOGIST this procedure are in the results section. URIC ACID AM 03/04/2021 Results for 4:35 AM NEUROBIOLOGIST this procedure are in the results section. LACTATE DEHYDROGENASE AM 03/04/2021 Result s for 4:35 AM NEUROBIOLOGIST this procedure are in the results section. GLUCOSE, RANDOM AM 03/04/2021 Results for 4:35 AM NEUROBIOLOGIST this procedure are in the results section. SERUM CREATININE AM 03/04/2021 4:35 AM NEUROBIOLOGIST BLOOD UREA NITROGEN AM 03/04/2021 Results for 4:35 AM NEUROBIOLOGIST this procedure are in the results section. CARBON DIOXIDE LEVEL AM 03/04/2021 Results for 4:35 AM NEUROBIOLOGIST this procedure are in the results section. CHLORIDE LEVEL AM 03/04/2021 Results for 4:35 AM NEUROBIOLOGIST this procedure are in the results section. POTASSIUM LEVEL AM 03/04/2021 Results for 4:35 AM NEUROBIOLOGIST this procedure are in the results section. SODIUM LEVEL AM 03/04/2021 Results for 4:35 AM NEUROBIOLOGIST this procedure are in the results section. COMPLETE BLOOD COUNT AM 03/04/2021 W/ DIFFERENTIAL 4:35 AM NEUROBIOLOGIST HP FC LYMPHOMA B Routine 03/03/2021 KAPPA/LAMBDA 5:14 PM NEUROBIOLOGIST INTERPRETATION AND REPORT HP FC FLOW CYTOMETRY Routine 03/03/2021 Results for BLOOD COLLECTION 5:14 PM NEUROBIOLOGIST this proced ure are in the results section. POTASSIUM LEVEL STAT 03/03/2021 Results for 5:11 PM NEUROBIOLOGIST this procedure are in the results section. 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 AFB CULTURE W/ SMEAR Now 03/03/2021 1:41 PM NEUROBIOLOGIST CRYPTOCOCCAL ANTIGEN Routine 03/03/2021 Results for PATH REVIEW 1:41 PM NEUROBIOLOGIST this procedure are in the results section. MENINGITIS-ENCEPHALITI STAT 03/03/2021 Resul ts for S MULTIPLEX PANEL PATH 1:41 PM NEUROBIOLOGIST this procedure REVIEW are in the results section. MENINGITIS-ENCEPHALITI STAT 03/03/2021 Resul ts for S PANEL 1:41 PM NEUROBIOLOGIST this procedure are in the results section. AFB CULTURE W/ SMEAR Now 03/03/2021 Results for 1:41 PM NEUROBIOLOGIST this procedure are in the results section. CRYPTOCOCCAL ANTIGEN Now 03/03/2021 Results for 1:41 PM NEUROBIOLOGIST this procedure are in the results section. CSF CULTURE Now 03/03/2021 Results for 1:41 PM NEUROBIOLOGIST this procedure are in the results section. FUNGUS CULTURE W/ Now 03/03/2021 Results fo r SMEAR 1:41 PM NEUROBIOLOGIST this procedure are in the results section. CELL COUNT W/ DIFF Now 03/03/2021 Results f or CEREBROSPINAL FLUID 1:41 PM NEUROBIOLOGIST this pro cedure are in the results section. GLUCOSE CEREBROSPINAL Now 03/03/2021 Result s for FLUID 1:41 PM NEUROBIOLOGIST this procedure are in the results section. PROTEIN CEREBROSPINAL Now 03/03/2021 Result s for FLUID 1:41 PM NEUROBIOLOGIST this procedure are in the results section. PARANEOPLASTIC Routine 03/03/2021 Results for AUTO-ANTIBODY EVAL, 1:41 PM NEUROBIOLOGIST this pro cedure CSF are in the results section. 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 MANUAL DIFFERENTIAL STAT 03/03/2021 Results for 8:59 AM NEUROBIOLOGIST this procedure are in the results section. Results CBC STAT 03/03/2021 Results for 8:59 AM NEUROBIOLOGIST this procedure are in the results section. ANION GAP AM 03/03/2021 Results for 5:26 AM NEUROBIOLOGIST this procedure are in the results section. .GLOMERULAR FILTRATION AM 03/03/2021 Resul ts for RATE 5:26 AM NEUROBIOLOGIST this procedure are in the results section. SERUM CREATININE AM 03/03/2021 Results for 5:26 AM NEUROBIOLOGIST this procedure are in the results section. Results CBC AM 03/03/2021 Results for 5:26 AM NEUROBIOLOGIST this procedure are in the results section. ALKALINE PHOSPHATASE AM 03/03/2021 Results for 5:26 AM NEUROBIOLOGIST this procedure are in the results section. ASPARTATE AM 03/03/2021 Results for AMINOTRANSFERASE 5:26 AM NEUROBIOLOGIST this proced ure are in the results section. ALANINE AM 03/03/2021 Results for AMINOTRANSFERASE 5:26 AM NEUROBIOLOGIST this proced ure are in the results section. MAGNESIUM LEVEL AM 03/03/2021 Results for 5:26 AM NEUROBIOLOGIST this procedure are in the results section. CALCIUM LEVEL TOTAL AM 03/03/2021 Results for 5:26 AM NEUROBIOLOGIST this procedure are in the results section. ALBUMIN LEVEL AM 03/03/2021 Results for 5:26 AM NEUROBIOLOGIST this procedure are in the results section. FRACTIONATED BILIRUBIN AM 03/03/2021 Resul ts for 5:26 AM NEUROBIOLOGIST this procedure are in the results section. PHOSPHORUS LEVEL AM 03/03/2021 Results for 5:26 AM NEUROBIOLOGIST this procedure are in the results section. URIC ACID AM 03/03/2021 Results for 5:26 AM NEUROBIOLOGIST this procedure are in the results section. LACTATE DEHYDROGENASE AM 03/03/2021 Result s for 5:26 AM NEUROBIOLOGIST this procedure are in the results section. GLUCOSE, RANDOM AM 03/03/2021 Results for 5:26 AM NEUROBIOLOGIST this procedure are in the results section. SERUM CREATININE AM 03/03/2021 5:26 AM NEUROBIOLOGIST BLOOD UREA NITROGEN AM 03/03/2021 Results for 5:26 AM NEUROBIOLOGIST this procedure are in the results section. CARBON DIOXIDE LEVEL AM 03/03/2021 Results for 5:26 AM NEUROBIOLOGIST this procedure are in the results section. CHLORIDE LEVEL AM 03/03/2021 Results for 5:26 AM NEUROBIOLOGIST this procedure are in the results section. POTASSIUM LEVEL AM 03/03/2021 Results for 5:26 AM NEUROBIOLOGIST this procedure are in the results section. SODIUM LEVEL AM 03/03/2021 Results for 5:26 AM NEUROBIOLOGIST this procedure are in the results section. COMPLETE BLOOD COUNT AM 03/03/2021 W/ DIFFERENTIAL 5:26 AM NEUROBIOLOGIST COVID-19 (SARS-COV-2) Now 03/02/2021 Result s for PCR-ASYMPTOMATIC MC 5:34 PM NEUROBIOLOGIST this pro cedure are in the results section. HP CG MYC TISSUE FISH Routine 03/02/2021 INTERPRETATION AND 11:06 AM NEUROBIOLOGIST REPORT HP CYTOGENETICS BLOOD Routine 03/02/2021 Result s for COLLECTION 11:06 AM NEUROBIOLOGIST this procedure are in the results section. IR CT GUIDED BIOPSY STAT 03/02/2021 Follicular lymphoma R esults for RETROPERITONEAL 9:30 AM NEUROBIOLOGIST this procedu re are in the results section. CYTOLOGY IMAGE-GUIDED Routine 03/02/2021 Follicular lymphoma Results for FNA INTERPRETATION 8:54 AM NEUROBIOLOGIST Follicular lymphoma th is procedure grade IIIb [...] LYMPHOMA B Routine 03/02/2021 KAPPA/LAMBDA 8:54 AM NEUROBIOLOGIST INTERPRETATION AND REPORT HP FC FLOW CYTOMETRY Routine 03/02/2021 Results for BLOOD COLLECTION 8:54 AM NEUROBIOLOGIST this proced ure are in the results section. PATHOLOGY BIOPSY Routine 03/02/2021 Follicular lymp trav Results for INTERPRETATION 8:53 AM NEUROBIOLOGIST Follicular lymphoma this p rocedure grade IIIb [...] GAP AM 03/02/2021 Results for 4:19 AM NEUROBIOLOGIST this procedure are in the results section. .GLOMERULAR FILTRATION AM 03/02/2021 Resul ts for RATE 4:19 AM NEUROBIOLOGIST this procedure are in the results section. SERUM CREATININE AM 03/02/2021 Results for 4:19 AM NEUROBIOLOGIST this procedure are in the results section. MANUAL DIFFERENTIAL AM 03/02/2021 Results for 4:19 AM NEUROBIOLOGIST this procedure are in the results section. Results CBC AM 03/02/2021 Results for 4:19 AM NEUROBIOLOGIST this procedure are in the results section. APTT Now 03/02/2021 Results for 4:19 AM NEUROBIOLOGIST this procedure are in the results section. PROTHROMBIN TIME Routine 03/02/2021 Results for 4:19 AM NEUROBIOLOGIST this procedure are in the results section. ALKALINE PHOSPHATASE AM 03/02/2021 Results for 4:19 AM NEUROBIOLOGIST this procedure are in the results section. ASPARTATE AM 03/02/2021 Results for AMINOTRANSFERASE 4:19 AM NEUROBIOLOGIST this proced ure are in the results section. ALANINE AM 03/02/2021 Results for AMINOTRANSFERASE 4:19 AM NEUROBIOLOGIST this proced ure are in the results section. MAGNESIUM LEVEL AM 03/02/2021 Results for 4:19 AM NEUROBIOLOGIST this procedure are in the results section. CALCIUM LEVEL TOTAL AM 03/02/2021 Results for 4:19 AM NEUROBIOLOGIST this procedure are in the results section. ALBUMIN LEVEL AM 03/02/2021 Results for 4:19 AM NEUROBIOLOGIST this procedure are in the results section. FRACTIONATED BILIRUBIN AM 03/02/2021 Resul ts for 4:19 AM NEUROBIOLOGIST this procedure are in the results section. PHOSPHORUS LEVEL AM 03/02/2021 Results for 4:19 AM NEUROBIOLOGIST this procedure are in the results section. URIC ACID AM 03/02/2021 Results for 4:19 AM NEUROBIOLOGIST this procedure are in the results section. LACTATE DEHYDROGENASE AM 03/02/2021 Result s for 4:19 AM NEUROBIOLOGIST this procedure are in the results section. GLUCOSE, RANDOM AM 03/02/2021 Results for 4:19 AM NEUROBIOLOGIST this procedure are in the results section. SERUM CREATININE AM 03/02/2021 4:19 AM NEUROBIOLOGIST BLOOD UREA NITROGEN AM 03/02/2021 Results for 4:19 AM NEUROBIOLOGIST this procedure are in the results section. CARBON DIOXIDE LEVEL AM 03/02/2021 Results for 4:19 AM NEUROBIOLOGIST this procedure are in the results section. CHLORIDE LEVEL AM 03/02/2021 Results for 4:19 AM NEUROBIOLOGIST this procedure are in the results section. POTASSIUM LEVEL AM 03/02/2021 Results for 4:19 AM NEUROBIOLOGIST this procedure are in the results section. SODIUM LEVEL AM 03/02/2021 Results for 4:19 AM NEUROBIOLOGIST this procedure are in the results section. COMPLETE BLOOD COUNT AM 03/02/2021 W/ DIFFERENTIAL 4:19 AM NEUROBIOLOGIST CLOT EXPIRATION DATE Routine 03/01/2021 Results for 12:35 PM NEUROBIOLOGIST this procedure are in the results section. TMP INTERPRETATION Routine 03/01/2021 Results f or ANTIBODY SCREEN 12:35 PM NEUROBIOLOGIST this procedu re NEGATIVE are in the results section. ANTIBODY SCREEN Routine 03/01/2021 Results for 12:35 PM NEUROBIOLOGIST this procedure are in the results section. ABORH Routine 03/01/2021 Results for 12:35 PM NEUROBIOLOGIST this procedure are in the results section. PROTHROMBIN TIME Routine 03/01/2021 Results for 12:35 PM NEUROBIOLOGIST this procedure are in the results section. TYPE AND SCREEN Routine 03/01/2021 12:35 PM NEUROBIOLOGIST ANION GAP AM 03/01/2021 Results for 4:11 AM NEUROBIOLOGIST this procedure are in the results section. .GLOMERULAR FILTRATION AM 03/01/2021 Resul ts for RATE 4:11 AM NEUROBIOLOGIST this procedure are in the results section. SERUM CREATININE AM 03/01/2021 Results for 4:11 AM NEUROBIOLOGIST this procedure are in the results section. MANUAL DIFFERENTIAL AM 03/01/2021 Results for 4:11 AM NEUROBIOLOGIST this procedure are in the results section. Results CBC AM 03/01/2021 Results for 4:11 AM NEUROBIOLOGIST this procedure are in the results section. ALKALINE PHOSPHATASE AM 03/01/2021 Results for 4:11 AM NEUROBIOLOGIST this procedure are in the results section. ASPARTATE AM 03/01/2021 Results for AMINOTRANSFERASE 4:11 AM NEUROBIOLOGIST this proced ure are in the results section. ALANINE AM 03/01/2021 Results for AMINOTRANSFERASE 4:11 AM NEUROBIOLOGIST this proced ure are in the results section. MAGNESIUM LEVEL AM 03/01/2021 Results for 4:11 AM NEUROBIOLOGIST this procedure are in the results section. CALCIUM LEVEL TOTAL AM 03/01/2021 Results for 4:11 AM NEUROBIOLOGIST this procedure are in the results section. ALBUMIN LEVEL AM 03/01/2021 Results for 4:11 AM NEUROBIOLOGIST this procedure are in the results section. FRACTIONATED BILIRUBIN AM 03/01/2021 Resul ts for 4:11 AM NEUROBIOLOGIST this procedure are in the results section. PHOSPHORUS LEVEL AM 03/01/2021 Results for 4:11 AM NEUROBIOLOGIST this procedure are in the results section. URIC ACID AM 03/01/2021 Results for 4:11 AM NEUROBIOLOGIST this procedure are in the results section. LACTATE DEHYDROGENASE AM 03/01/2021 Result s for 4:11 AM NEUROBIOLOGIST this procedure are in the results section. GLUCOSE, RANDOM AM 03/01/2021 Results for 4:11 AM NEUROBIOLOGIST this procedure are in the results section. SERUM CREATININE AM 03/01/2021 4:11 AM NEUROBIOLOGIST BLOOD UREA NITROGEN AM 03/01/2021 Results for 4:11 AM NEUROBIOLOGIST this procedure are in the results section. CARBON DIOXIDE LEVEL AM 03/01/2021 Results for 4:11 AM NEUROBIOLOGIST this procedure are in the results section. CHLORIDE LEVEL AM 03/01/2021 Results for 4:11 AM NEUROBIOLOGIST this procedure are in the results section. POTASSIUM LEVEL AM 03/01/2021 Results for 4:11 AM NEUROBIOLOGIST this procedure are in the results section. SODIUM LEVEL AM 03/01/2021 Results for 4:11 AM NEUROBIOLOGIST this procedure are in the results section. COMPLETE BLOOD COUNT AM 03/01/2021 W/ DIFFERENTIAL 4:11 AM NEUROBIOLOGIST TROPONIN T Routine 03/01/2021 Results for 4:11 AM NEUROBIOLOGIST this procedure are in the results section. AMMONIA LEVEL Routine 02/28/2021 Results for 6:56 PM NEUROBIOLOGIST this procedure are in the results section. LACTIC ACID, VENOUS Routine 02/28/2021 Results for 6:56 PM NEUROBIOLOGIST this procedure are in the results section. BLOODCULTURE Now 02/28/2021 Results for 6:56 PM NEUROBIOLOGIST this procedure are in the results section. URINALYSIS WITH Now 02/28/2021 Results for MICROSCOPIC IF 1:23 PM NEUROBIOLOGIST this procedur e INDICATED are in the results section. URINE CULTURE Now 02/28/2021 Results for 1:23 PM NEUROBIOLOGIST this procedure are in the results section. ANION GAP AM 02/28/2021 Results for 4:49 AM NEUROBIOLOGIST this procedure are in the results section. .GLOMERULAR FILTRATION AM 02/28/2021 Resul ts for RATE 4:49 AM NEUROBIOLOGIST this procedure are in the results section. SERUM CREATININE AM 02/28/2021 Results for 4:49 AM NEUROBIOLOGIST this procedure are in the results section. MANUAL DIFFERENTIAL AM 02/28/2021 Results for 4:49 AM NEUROBIOLOGIST this procedure are in the results section. Results CBC AM 02/28/2021 Results for 4:49 AM NEUROBIOLOGIST this procedure are in the results section. ALKALINE PHOSPHATASE AM 02/28/2021 Results for 4:49 AM NEUROBIOLOGIST this procedure are in the results section. ASPARTATE AM 02/28/2021 Results for AMINOTRANSFERASE 4:49 AM NEUROBIOLOGIST this proced ure are in the results section. ALANINE AM 02/28/2021 Results for AMINOTRANSFERASE 4:49 AM NEUROBIOLOGIST this proced ure are in the results section. MAGNESIUM LEVEL AM 02/28/2021 Results for 4:49 AM NEUROBIOLOGIST this procedure are in the results section. CALCIUM LEVEL TOTAL AM 02/28/2021 Results for 4:49 AM NEUROBIOLOGIST this procedure are in the results section. ALBUMIN LEVEL AM 02/28/2021 Results for 4:49 AM NEUROBIOLOGIST this procedure are in the results section. FRACTIONATED BILIRUBIN AM 02/28/2021 Resul ts for 4:49 AM NEUROBIOLOGIST this procedure are in the results section. PHOSPHORUS LEVEL AM 02/28/2021 Results for 4:49 AM NEUROBIOLOGIST this procedure are in the results section. URIC ACID AM 02/28/2021 Results for 4:49 AM NEUROBIOLOGIST this procedure are in the results section. LACTATE DEHYDROGENASE AM 02/28/2021 Result s for 4:49 AM NEUROBIOLOGIST this procedure are in the results section. GLUCOSE, RANDOM AM 02/28/2021 Results for 4:49 AM NEUROBIOLOGIST this procedure are in the results section. SERUM CREATININE AM 02/28/2021 4:49 AM NEUROBIOLOGIST BLOOD UREA NITROGEN AM 02/28/2021 Results for 4:49 AM NEUROBIOLOGIST this procedure are in the results section. CARBON DIOXIDE LEVEL AM 02/28/2021 Results for 4:49 AM NEUROBIOLOGIST this procedure are in the results section. CHLORIDE LEVEL AM 02/28/2021 Results for 4:49 AM NEUROBIOLOGIST this procedure are in the results section. POTASSIUM LEVEL AM 02/28/2021 Results for 4:49 AM NEUROBIOLOGIST this procedure are in the results section. SODIUM LEVEL AM 02/28/2021 Results for 4:49 AM NEUROBIOLOGIST this procedure are in the results section. COMPLETE BLOOD COUNT AM 02/28/2021 W/ DIFFERENTIAL 4:49 AM NEUROBIOLOGIST PROTHROMBIN TIME STAT 02/27/2021 Results for 10:55 PM NEUROBIOLOGIST this procedure are in the results section. MRI BRAIN W WO Routine 02/27/2021 Results for CONTRAST 1:12 PM NEUROBIOLOGIST this procedure are in the results section. ANION GAP AM 02/27/2021 Results for 6:22 AM NEUROBIOLOGIST this procedure are in the results section. .GLOMERULAR FILTRATION AM 02/27/2021 Resul ts for RATE 6:22 AM NEUROBIOLOGIST this procedure are in the results section. SERUM CREATININE AM 02/27/2021 Results for 6:22 AM NEUROBIOLOGIST this procedure are in the results section. MANUAL DIFFERENTIAL AM 02/27/2021 Results for 6:22 AM NEUROBIOLOGIST this procedure are in the results section. Results CBC AM 02/27/2021 Results for 6:22 AM NEUROBIOLOGIST this procedure are in the results section. ALKALINE PHOSPHATASE AM 02/27/2021 Results for 6:22 AM NEUROBIOLOGIST this procedure are in the results section. ASPARTATE AM 02/27/2021 Results for AMINOTRANSFERASE 6:22 AM NEUROBIOLOGIST this proced ure are in the results section. ALANINE AM 02/27/2021 Results for AMINOTRANSFERASE 6:22 AM NEUROBIOLOGIST this proced ure are in the results section. MAGNESIUM LEVEL AM 02/27/2021 Results for 6:22 AM NEUROBIOLOGIST this procedure are in the results section. CALCIUM LEVEL TOTAL AM 02/27/2021 Results for 6:22 AM NEUROBIOLOGIST this procedure are in the results section. ALBUMIN LEVEL AM 02/27/2021 Results for 6:22 AM NEUROBIOLOGIST this procedure are in the results section. FRACTIONATED BILIRUBIN AM 02/27/2021 Resul ts for 6:22 AM NEUROBIOLOGIST this procedure are in the results section. PHOSPHORUS LEVEL AM 02/27/2021 Results for 6:22 AM NEUROBIOLOGIST this procedure are in the results section. URIC ACID AM 02/27/2021 Results for 6:22 AM NEUROBIOLOGIST this procedure are in the results section. LACTATE DEHYDROGENASE AM 02/27/2021 Result s for 6:22 AM NEUROBIOLOGIST this procedure are in the results section. GLUCOSE, RANDOM AM 02/27/2021 Results for 6:22 AM NEUROBIOLOGIST this procedure are in the results section. SERUM CREATININE AM 02/27/2021 6:22 AM NEUROBIOLOGIST BLOOD UREA NITROGEN AM 02/27/2021 Results for 6:22 AM NEUROBIOLOGIST this procedure are in the results section. CARBON DIOXIDE LEVEL AM 02/27/2021 Results for 6:22 AM NEUROBIOLOGIST this procedure are in the results section. CHLORIDE LEVEL AM 02/27/2021 Results for 6:22 AM NEUROBIOLOGIST this procedure are in the results section. POTASSIUM LEVEL AM 02/27/2021 Results for 6:22 AM NEUROBIOLOGIST this procedure are in the results section. SODIUM LEVEL AM 02/27/2021 Results for 6:22 AM NEUROBIOLOGIST this procedure are in the results section. COMPLETE BLOOD COUNT AM 02/27/2021 W/ DIFFERENTIAL 6:22 AM NEUROBIOLOGIST TMP INTERPRETATION Routine 02/26/2021 Results f or ANTIBODY SCREEN 6:02 PM NEUROBIOLOGIST this procedu re NEGATIVE are in the results section. CLOT EXPIRATION DATE Routine 02/26/2021 Results for 6:02 PM NEUROBIOLOGIST this procedure are in the results section. ANTIBODY SCREEN Routine 02/26/2021 Results for 6:02 PM NEUROBIOLOGIST this procedure are in the results section. ABORH Routine 02/26/2021 Results for 6:02 PM NEUROBIOLOGIST this procedure are in the results section. CARDIAC PANEL Timed Study 02/26/2021 Results for 6:02 PM NEUROBIOLOGIST this procedure are in the results section. TYPE AND SCREEN Routine 02/26/2021 6:02 PM NEUROBIOLOGIST CARDIAC PANEL Timed Study 02/26/2021 Results for 12:01 PM NEUROBIOLOGIST this procedure are in the results section. CARDIAC PANEL Timed Study 02/26/2021 Results for 6:36 AM NEUROBIOLOGIST this procedure are in the results section. ANION GAP AM 02/26/2021 Results for 2:01 AM NEUROBIOLOGIST this procedure are in the results section. .GLOMERULAR FILTRATION AM 02/26/2021 Resul ts for RATE 2:01 AM NEUROBIOLOGIST this procedure are in the results section. SERUM CREATININE AM 02/26/2021 Results for 2:01 AM NEUROBIOLOGIST this procedure are in the results section. MANUAL DIFFERENTIAL AM 02/26/2021 Results for 2:01 AM NEUROBIOLOGIST this procedure are in the results section. Results CBC AM 02/26/2021 Results for 2:01 AM NEUROBIOLOGIST this procedure are in the results section. ALKALINE PHOSPHATASE AM 02/26/2021 Results for 2:01 AM NEUROBIOLOGIST this procedure are in the results section. ASPARTATE AM 02/26/2021 Results for AMINOTRANSFERASE 2:01 AM NEUROBIOLOGIST this proced ure are in the results section. ALANINE AM 02/26/2021 Results for AMINOTRANSFERASE 2:01 AM NEUROBIOLOGIST this proced ure are in the results section. MAGNESIUM LEVEL AM 02/26/2021 Results for 2:01 AM NEUROBIOLOGIST this procedure are in the results section. CALCIUM LEVEL TOTAL AM 02/26/2021 Results for 2:01 AM NEUROBIOLOGIST this procedure are in the results section. ALBUMIN LEVEL AM 02/26/2021 Results for 2:01 AM NEUROBIOLOGIST this procedure are in the results section. FRACTIONATED BILIRUBIN AM 02/26/2021 Resul ts for 2:01 AM NEUROBIOLOGIST this procedure are in the results section. PHOSPHORUS LEVEL AM 02/26/2021 Results for 2:01 AM NEUROBIOLOGIST this procedure are in the results section. URIC ACID AM 02/26/2021 Results for 2:01 AM NEUROBIOLOGIST this procedure are in the results section. LACTATE DEHYDROGENASE AM 02/26/2021 Result s for 2:01 AM NEUROBIOLOGIST this procedure are in the results section. GLUCOSE, RANDOM AM 02/26/2021 Results for 2:01 AM NEUROBIOLOGIST this procedure are in the results section. SERUM CREATININE AM 02/26/2021 2:01 AM NEUROBIOLOGIST BLOOD UREA NITROGEN AM 02/26/2021 Results for 2:01 AM NEUROBIOLOGIST this procedure are in the results section. CARBON DIOXIDE LEVEL AM 02/26/2021 Results for 2:01 AM NEUROBIOLOGIST this procedure are in the results section. CHLORIDE LEVEL AM 02/26/2021 Results for 2:01 AM NEUROBIOLOGIST this procedure are in the results section. POTASSIUM LEVEL AM 02/26/2021 Results for 2:01 AM NEUROBIOLOGIST this procedure are in the results section. SODIUM LEVEL AM 02/26/2021 Results for 2:01 AM NEUROBIOLOGIST this procedure are in the results section. COMPLETE BLOOD COUNT AM 02/26/2021 W/ DIFFERENTIAL 2:01 AM NEUROBIOLOGIST TROPONIN T Routine 02/26/2021 Results for 2:01 AM NEUROBIOLOGIST this procedure are in the results section. EKG, 12-LEAD STAT 02/26/2021 (PORTABLE) TROPONIN T Routine 02/25/2021 Results for 6:01 PM NEUROBIOLOGIST this procedure are in the results section. TROPONIN T Routine 02/25/2021 Results for 12:21 PM NEUROBIOLOGIST this procedure are in the results section. ANION GAP AM 02/25/2021 Results for 4:07 AM NEUROBIOLOGIST this procedure are in the results section. .GLOMERULAR FILTRATION AM 02/25/2021 Resul ts for RATE 4:07 AM NEUROBIOLOGIST this procedure are in the results section. SERUM CREATININE AM 02/25/2021 Results for 4:07 AM NEUROBIOLOGIST this procedure are in the results section. MANUAL DIFFERENTIAL AM 02/25/2021 Results for 4:07 AM NEUROBIOLOGIST this procedure are in the results section. Results CBC AM 02/25/2021 Results for 4:07 AM NEUROBIOLOGIST this procedure are in the results section. CARDIAC PANEL Timed Study 02/25/2021 Results for 4:07 AM NEUROBIOLOGIST this procedure are in the results section. ALKALINE PHOSPHATASE AM 02/25/2021 Results for 4:07 AM NEUROBIOLOGIST this procedure are in the results section. ASPARTATE AM 02/25/2021 Results for AMINOTRANSFERASE 4:07 AM NEUROBIOLOGIST this proced ure are in the results section. ALANINE AM 02/25/2021 Results for AMINOTRANSFERASE 4:07 AM NEUROBIOLOGIST this proced ure are in the results section. MAGNESIUM LEVEL AM 02/25/2021 Results for 4:07 AM NEUROBIOLOGIST this procedure are in the results section. CALCIUM LEVEL TOTAL AM 02/25/2021 Results for 4:07 AM NEUROBIOLOGIST this procedure are in the results section. ALBUMIN LEVEL AM 02/25/2021 Results for 4:07 AM NEUROBIOLOGIST this procedure are in the results section. FRACTIONATED BILIRUBIN AM 02/25/2021 Resul ts for 4:07 AM NEUROBIOLOGIST this procedure are in the results section. PHOSPHORUS LEVEL AM 02/25/2021 Results for 4:07 AM NEUROBIOLOGIST this procedure are in the results section. URIC ACID AM 02/25/2021 Results for 4:07 AM NEUROBIOLOGIST this procedure are in the results section. LACTATE DEHYDROGENASE AM 02/25/2021 Result s for 4:07 AM NEUROBIOLOGIST this procedure are in the results section. GLUCOSE, RANDOM AM 02/25/2021 Results for 4:07 AM NEUROBIOLOGIST this procedure are in the results section. SERUM CREATININE AM 02/25/2021 4:07 AM NEUROBIOLOGIST BLOOD UREA NITROGEN AM 02/25/2021 Results for 4:07 AM NEUROBIOLOGIST this procedure are in the results section. CARBON DIOXIDE LEVEL AM 02/25/2021 Results for 4:07 AM NEUROBIOLOGIST this procedure are in the results section. CHLORIDE LEVEL AM 02/25/2021 Results for 4:07 AM NEUROBIOLOGIST this procedure are in the results section. POTASSIUM LEVEL AM 02/25/2021 Results for 4:07 AM NEUROBIOLOGIST this procedure are in the results section. SODIUM LEVEL AM 02/25/2021 Results for 4:07 AM NEUROBIOLOGIST this procedure are in the results section. COMPLETE BLOOD COUNT AM 02/25/2021 W/ DIFFERENTIAL 4:07 AM NEUROBIOLOGIST CARDIAC PANEL Timed Study 02/24/2021 Results for 10:48 PM NEUROBIOLOGIST this procedure are in the results section. TROPONIN T Routine 02/24/2021 Results for 10:48 PM NEUROBIOLOGIST this procedure are in the results section. URINALYSIS MICROSCOPIC Routine 02/24/2021 Resul ts for 5:51 PM NEUROBIOLOGIST this procedure are in the results section. URINALYSIS WITH Now 02/24/2021 Results for MICROSCOPIC IF 5:51 PM NEUROBIOLOGIST this procedur e INDICATED are in the results section. URINE CULTURE Now 02/24/2021 Results for 5:51 PM NEUROBIOLOGIST this procedure are in the results section. LIPID PANEL Routine 02/24/2021 Results for 4:13 PM NEUROBIOLOGIST this procedure are in the results section. NT PRO BNP Routine 02/24/2021 Results for 4:13 PM NEUROBIOLOGIST this procedure are in the results section. CARDIAC PANEL Timed Study 02/24/2021 Results for 4:13 PM NEUROBIOLOGIST this procedure are in the results section. HEMOGLOBIN A1C Routine 02/24/2021 Results for 2:32 PM NEUROBIOLOGIST this procedure are in the results section. ECHOCARDIOGRAM 2D STAT 02/24/2021 Results fo r COMPLETE W CONTRAST 10:00 AM NEUROBIOLOGIST this pro cedure are in the results section. PETCT WB INITIAL Routine 02/24/2021 Results for TREATMENT STRATEGY 7:42 AM NEUROBIOLOGIST this proc edure are in the results section. ANION GAP AM 02/24/2021 Results for 3:45 AM NEUROBIOLOGIST this procedure are in the results section. .GLOMERULAR FILTRATION AM 02/24/2021 Resul ts for RATE 3:45 AM NEUROBIOLOGIST this procedure are in the results section. SERUM CREATININE AM 02/24/2021 Results for 3:45 AM NEUROBIOLOGIST this procedure are in the results section. MANUAL DIFFERENTIAL AM 02/24/2021 Results for 3:45 AM NEUROBIOLOGIST this procedure are in the results section. Results CBC AM 02/24/2021 Results for 3:45 AM NEUROBIOLOGIST this procedure are in the results section. ALKALINE PHOSPHATASE AM 02/24/2021 Results for 3:45 AM NEUROBIOLOGIST this procedure are in the results section. ASPARTATE AM 02/24/2021 Results for AMINOTRANSFERASE 3:45 AM NEUROBIOLOGIST this proced ure are in the results section. ALANINE AM 02/24/2021 Results for AMINOTRANSFERASE 3:45 AM NEUROBIOLOGIST this proced ure are in the results section. MAGNESIUM LEVEL AM 02/24/2021 Results for 3:45 AM NEUROBIOLOGIST this procedure are in the results section. CALCIUM LEVEL TOTAL AM 02/24/2021 Results for 3:45 AM NEUROBIOLOGIST this procedure are in the results section. ALBUMIN LEVEL AM 02/24/2021 Results for 3:45 AM NEUROBIOLOGIST this procedure are in the results section. FRACTIONATED BILIRUBIN AM 02/24/2021 Resul ts for 3:45 AM NEUROBIOLOGIST this procedure are in the results section. PHOSPHORUS LEVEL AM 02/24/2021 Results for 3:45 AM NEUROBIOLOGIST this procedure are in the results section. URIC ACID AM 02/24/2021 Results for 3:45 AM NEUROBIOLOGIST this procedure are in the results section. LACTATE DEHYDROGENASE AM 02/24/2021 Result s for 3:45 AM NEUROBIOLOGIST this procedure are in the results section. GLUCOSE, RANDOM AM 02/24/2021 Results for 3:45 AM NEUROBIOLOGIST this procedure are in the results section. SERUM CREATININE AM 02/24/2021 3:45 AM NEUROBIOLOGIST BLOOD UREA NITROGEN AM 02/24/2021 Results for 3:45 AM NEUROBIOLOGIST this procedure are in the results section. CARBON DIOXIDE LEVEL AM 02/24/2021 Results for 3:45 AM NEUROBIOLOGIST this procedure are in the results section. CHLORIDE LEVEL AM 02/24/2021 Results for 3:45 AM NEUROBIOLOGIST this procedure are in the results section. POTASSIUM LEVEL AM 02/24/2021 Results for 3:45 AM NEUROBIOLOGIST this procedure are in the results section. SODIUM LEVEL AM 02/24/2021 Results for 3:45 AM NEUROBIOLOGIST this procedure are in the results section. COMPLETE BLOOD COUNT AM 02/24/2021 W/ DIFFERENTIAL 3:45 AM NEUROBIOLOGIST EKG, 12-LEAD STAT 02/24/2021 (PORTABLE) EKG, 12-LEAD Routine 02/24/2021 (PORTABLE) EKG, 12-LEAD Routine 02/24/2021 (PORTABLE) TMP RPR PATH INTERP Routine 02/23/2021 Results for 5:20 PM NEUROBIOLOGIST this procedure are in the results section. TMP HCVAB INTERP Routine 02/23/2021 Results for 5:20 PM NEUROBIOLOGIST this procedure are in the results section. TMP HIV 1/2 AG&AB PATH Routine 02/23/2021 Resul ts for INTERP 5:20 PM NEUROBIOLOGIST this procedure are in the results section. TMP INTERPRETATION Routine 02/23/2021 Results f or ANTIBODY SCREEN 5:20 PM NEUROBIOLOGIST this procedu re NEGATIVE are in the results section. CLOT EXPIRATION DATE Routine 02/23/2021 Results for 5:20 PM NEUROBIOLOGIST this procedure are in the results section. TMP INTERPRETATION Routine 02/23/2021 Results f or DIRECT ANTIGLOBULIN 5:20 PM NEUROBIOLOGIST this pro cedure TEST are in the results section. BLOOD UREA NITROGEN Routine 02/23/2021 Results for 5:20 PM NEUROBIOLOGIST this procedure are in the results section. RAPID PLASMA REAGIN Now 02/23/2021 Results for (RPR) 5:20 PM NEUROBIOLOGIST this procedure are in the results section. HIV-1/2 ANTIGEN AND Now 02/23/2021 Results for ANTIBODIES, FOURTH 5:20 PM NEUROBIOLOGIST this proc edure GENERATION are in the results section. HEPATITIS C VIRUS Now 02/23/2021 Results fo r ANTIBODY 5:20 PM NEUROBIOLOGIST this procedure are in the results section. HIV-1 DNA AND RNA QUAL Now 02/23/2021 Resul ts for PCR 5:20 PM NEUROBIOLOGIST this procedure are in the results section. HTLV I/II AB SCREEN Now 02/23/2021 Results for WITH CONFIRM 5:20 PM NEUROBIOLOGIST this procedure are in the results section. HEPATITIS B SURFACE AG Now 02/23/2021 Resul ts for W/CONFIRM 5:20 PM NEUROBIOLOGIST this procedure are in the results section. HEPATITIS B CORE TOTAL Now 02/23/2021 Resul ts for ANTIBODY 5:20 PM NEUROBIOLOGIST this procedure are in the results section. PROTHROMBIN TIME Routine 02/23/2021 Results for 5:20 PM NEUROBIOLOGIST this procedure are in the results section. LIPID PANEL Routine 02/23/2021 Results for 5:20 PM NEUROBIOLOGIST this procedure are in the results section. HEMOGLOBIN A1C Routine 02/23/2021 Results for 5:20 PM NEUROBIOLOGIST this procedure are in the results section. .GLOMERULAR FILTRATION Routine 02/23/2021 Resul ts for RATE 5:20 PM NEUROBIOLOGIST this procedure are in the results section. SERUM CREATININE Routine 02/23/2021 Results for 5:20 PM NEUROBIOLOGIST this procedure are in the results section. HTLV I+II ANTIBODY Routine 02/23/2021 Results f or 5:20 PM NEUROBIOLOGIST this procedure are in the results section. HEPATITIS B SURFACE Routine 02/23/2021 Results for ANTIGEN, SERUM 5:20 PM NEUROBIOLOGIST this procedur e are in the results section. HEPATITIS B CORE Routine 02/23/2021 Results for ANTIBODY 5:20 PM NEUROBIOLOGIST this procedure are in the results section. DIRECT ANTIGLOBULIN Now 02/23/2021 Results for TEST 5:20 PM NEUROBIOLOGIST this procedure are in the results section. VITAMIN D 25 HYDROXY Routine 02/23/2021 Results for LEVEL 5:20 PM NEUROBIOLOGIST this procedure are in the results section. BETA 2 MICROGLOBULIN Routine 02/23/2021 Results for 5:20 PM NEUROBIOLOGIST this procedure are in the results section. THYROID STIMULATING Routine 02/23/2021 Results for HORMONE 5:20 PM NEUROBIOLOGIST this procedure are in the results section. THYROXINE Routine 02/23/2021 Results for 5:20 PM NEUROBIOLOGIST this procedure are in the results section. IMMUNOGLOBULIN G SERUM Routine 02/23/2021 Resul ts for 5:20 PM NEUROBIOLOGIST this procedure are in the results section. IMMUNOGLOBULIN M SERUM Routine 02/23/2021 Resul ts for 5:20 PM NEUROBIOLOGIST this procedure are in the results section. IMMUNOGLOBULIN A SERUM Routine 02/23/2021 Resul ts for 5:20 PM NEUROBIOLOGIST this procedure are in the results section. GLUCOSE, RANDOM Routine 02/23/2021 Results for 5:20 PM NEUROBIOLOGIST this procedure are in the results section. PHOSPHORUS LEVEL Routine 02/23/2021 Results for 5:20 PM NEUROBIOLOGIST this procedure are in the results section. CALCIUM LEVEL TOTAL Routine 02/23/2021 Results for 5:20 PM NEUROBIOLOGIST this procedure are in the results section. ALBUMIN LEVEL Routine 02/23/2021 Results for 5:20 PM NEUROBIOLOGIST this procedure are in the results section. TOTAL PROTEIN Routine 02/23/2021 Results for 5:20 PM NEUROBIOLOGIST this procedure are in the results section. MAGNESIUM LEVEL Routine 02/23/2021 Results for 5:20 PM NEUROBIOLOGIST this procedure are in the results section. ELECTROLYTE PANEL Routine 02/23/2021 Results fo r 5:20 PM NEUROBIOLOGIST this procedure are in the results section. ASPARTATE Routine 02/23/2021 Results for AMINOTRANSFERASE 5:20 PM NEUROBIOLOGIST this proced ure are in the results section. ALANINE Routine 02/23/2021 Results for AMINOTRANSFERASE 5:20 PM NEUROBIOLOGIST this proced ure are in the results section. LACTATE DEHYDROGENASE Routine 02/23/2021 Result s for 5:20 PM NEUROBIOLOGIST this procedure are in the results section. ALKALINE PHOSPHATASE Routine 02/23/2021 Results for 5:20 PM NEUROBIOLOGIST this procedure are in the results section. FRACTIONATED BILIRUBIN Routine 02/23/2021 Resul ts for 5:20 PM NEUROBIOLOGIST this procedure are in the results section. URIC ACID Routine 02/23/2021 Results for 5:20 PM NEUROBIOLOGIST this procedure are in the results section. CYTOKINE PANEL Routine 02/23/2021 Results for 5:20 PM NEUROBIOLOGIST this procedure are in the results section. SERUM CREATININE Routine 02/23/2021 5:20 PM NEUROBIOLOGIST MANUAL DIFFERENTIAL Routine 02/23/2021 Results for 5:20 PM NEUROBIOLOGIST this procedure are in the results section. Results CBC Routine 02/23/2021 Results for 5:20 PM NEUROBIOLOGIST this procedure are in the results section. ANTIBODY SCREEN Routine 02/23/2021 Results for 5:20 PM NEUROBIOLOGIST this procedure are in the results section. ABORH Routine 02/23/2021 Results for 5:20 PM NEUROBIOLOGIST this procedure are in the results section. COMPLETE BLOOD COUNT Routine 02/23/2021 W/ DIFFERENTIAL 5:20 PM NEUROBIOLOGIST TYPE AND SCREEN Routine 02/23/2021 5:20 PM NEUROBIOLOGIST CMV ANTIBODY IGG AND Routine 02/23/2021 Results for IGM PATH REVIEW 5:20 PM NEUROBIOLOGIST this procedu re are in the results section. CMV ANTIBODY IGG AND Now 02/23/2021 Results for IGM 5:20 PM NEUROBIOLOGIST this procedure are in the results section. INFECTIOUS DISEASE Now 02/23/2021 GROUPING 5:20 PM NEUROBIOLOGIST COVID-19 (SARS-COV-2) Now 02/23/2021 Result s for ASYMPTOMATIC-LT 4:29 PM NEUROBIOLOGIST this procedu re are in the results section. PATHOLOGY OUTSIDE Routine 02/04/2021 Results fo r INTERPRETATION this procedur e are in the results section. after 04/12/2020 Results Glucose,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 Autoantibody Eval, CSF (03/03/2021 1:41 PM NEUROBIOLOGIST) Para Eval See Footnote [facility] Interpretation, Comment: [facility] CSF No informative autoantibodies were detected in the Paraneoplastic Evaluation. However, a negative result does not exclude neurological autoimmunity with or without associated neoplasia. Sensitivity and specificity of antibody testing are enhanced by testing both serum an d CSF. ANNA1 CSF-Matheson Negative <1:2 titer [facility] Reflex Added None. [facility] CSF-Shaw Comment: [facility] ADDITIONAL INFORMATION ------ This test was developed and its performance characteri stics determined by [facility] in a manner consistent with CLIA requirements. This test has not been cleared or approv ed by the U.S. Food and Drug Administration. ANNA2 CSF-Matheson Negative <1:2 titer [facility] Comment: [facility] ADDITIONAL INFORMATION ------ This test was developed and its performance characteri stics determined by [facility] in a manner consistent with CLIA requirements. This test has not been cleared or approv ed by the U.S. Food and Drug Administration. ANNA3 CSF-Shaw Negative <1:2 titer [facility] Comment: [facility] ADDITIONAL INFORMATION ------ This test was developed and its performance characteri stics determined by [facility] in a manner consistent with CLIA requirements. This test has not been cleared or approv ed by the U.S. Food and Drug Administration. AGNA1 CSF-Matheson Negative <1:2 titer [facility] Comment: [facility] ADDITIONAL INFORMATION ------ This test was developed and its performance characteri stics determined by [facility] in a manner consistent with CLIA requirements. This test has not been cleared or approv ed by the U.S. Food and Drug Administration. PCA2 CSF-Shaw Negative <1:2 titer [facility] Comment: [facility] ADDITIONAL INFORMATION ------ This test was developed and its performance characteri stics determined by [facility] in a manner consistent with CLIA requirements. This test has not been cleared or approv ed by the U.S. Food and Drug Administration. Test Performed by: [facility] [employer] - [address] [address] Independent Beauty Consultant: Jaycob Izaguirre M.D. Ph.D.; CLIA# [id number] PCATR CSF-Matheson Negative <1:2 titer [facility] Comment: [facility] ADDITIONAL INFORMATION ------ This test was developed and its performance characteri stics determined by [facility] in a manner consistent with CLIA requirements. This test has not been cleared or approv ed by the U.S. Food and Drug Administration. Amphip Ab Negative <1:2 titer [facility] Comment: [facility] ADDITIONAL INFORMATION ------ This test was developed and its performance characteri stics determined by [facility] in a manner consistent with CLIA requirements. This test has not been cleared or approv ed by the U.S. Food and Drug Administration. CRMP-5-IgG Negative <1:2 titer [facility] Comment: [facility] ADDITIONAL INFORMATION ------ This test was developed and its performance characteri stics determined by [facility] in a manner consistent with CLIA requirements. This test has not been cleared or approv ed by the U.S. Food and Drug Administration. FRIT COATER-1 Ab [facility] Negative <1:2 titer [facility] Comment: [facility] ADDITIONAL INFORMATION ------ This test was developed and its performance characteri stics determined by [facility] in a manner consistent with CLIA requirements. This test has not been cleared or approv ed by the U.S. Food and Drug Administration. Specimen CSF Performing Organization Address City/State/ZIP Code Phon e Number [facility] CANCER Unless otherwise noted, [place] [address] CENTER all lab tests performed by: Division of Pathology and Laboratory Medicine [facility]5 [facility] AFB Culture w/Smear (03/03/2021 1:41 PM NEUROBIOLOGIST) Final Report Culture ongoing. [facility] Pathreview issued too [facility] early. Patient credited. Path Review - AFB Partial antibiotic treatment can render AFB culture negative. AFB culture has sensitivity of 90%. The results have been reviewed and electronically signed by Pathologist: [facility] Wenceslao Young MD, PhD #[id number] [facility]ENT ER Specimen CSF Narrative [facility] - 2 8:54 AM NEUROBIOLOGIST Cultures are held 8 weeks before finaliz ation. Performing Organization Address City/State/ZIP Code Phon e Number [facility] CANCER Unless otherwise noted, [address] all lab tests performed by: Division of Pathology and Laboratory Medicine [address] CSF Culture w/ Gram Stain (03/03/2021 1:41 PM NEUROBIOLOGIST) Final Report No growth [facility] Path Review Culture yield may be affecte d by sample quality, prior treatment, and transportation conditions. [facility] ... [facility] CENTER The results have been reviewed and electronically sign ed by Pathologist: Bryan Alvarado MD, PhD #[id number] Gram Stain Report No WBC's seen. [facility] No organisms seen. [facility] Specimen CSF Performing Organization Address City/[facility] Code Phon e Number [facility] CANCER Unless otherwise noted, [address] all lab tests performed by: Division of Pathology and Laboratory Medicine [address] Cell Count w/ Diff Cerebrospinal Fluid (03/03/2021 1:41 PM NEUROBIOLOGIST) Type CSF TapComment: When [facility] reviewing the cell [facility] count and differential results, clinicians should consider the length of time between spinal fluid collection and testing and the clinical condition of the patient. Appear CSF CLEARComment: When CLEAR [facility] reviewing the cell [facility] count and differential results, clinicians should consider the length of time between spinal fluid collection and testing and the clinical condition of the patient. Color CSF ColorlessComment: Colorless [facility] When reviewing the [facility] cell count and differential results, clinicians should consider the length of time between spinal fluid collection and testing and the clinical condition of the patient. WBC CSF 0Comment: When 0 - 5 /mcL [facility] reviewing the cell [facility] count and differential results, clinicians should consider the length of time between spinal fluid collection and testing and the clinical condition of the patient. RBC CSF 0Comment: When 0 - 0 /mcL [facility] reviewing the cell [facility] count and differential results, clinicians should consider the length of time between spinal fluid collection and testing and the clinical condition of the patient. Tot Cells CSF 4Comment: When [facility] reviewing the cell [facility] count and differential results, clinicians should consider the length of time between spinal fluid collection and testing and the clinical condition of the patient. Neut CSF 0Comment: When 0 - 5 % [facility] reviewing the cell [facility] count and differential results, clinicians should consider the length of time between spinal fluid collection and testing and the clinical condition of the patient. Lymph CSF 50Comment: When 28 - 96 % [facility] reviewing the cell [facility] count and differential results, clinicians should consider the length of time between spinal fluid collection and testing and the clinical condition of the patient. Histiocyte CSF 50Comment: When 16 - 56 % [facility] reviewing the cell [facility] count and differential results, clinicians should consider the length of time between spinal fluid collection and testing and the clinical condition of the patient. Microorganisms CSF None SeenComment: None Seen [facility] When reviewing the [facility]ENTER cell count and differential results, clinicians should consider the length of time between spinal fluid collection and testing and the clinical condition of the patient. Specimen CSF - CSF, Lumbar Puncture Performing Organization Address [facility] Phon e Number [facility] CANCER Unless otherwise noted, [address] all lab tests performed by: Division of Pathology and Laboratory Medicine [address] [place] [address] [address] Protein CSF (03/03/2021 1:41 PM NEUROBIOLOGIST) Protein CSF 36 15 - 45 mg/dL [facility] Type CSF OtherComment: When [facility] reviewing the cell [facility] count and differential results, clinicians should consider the length of time between spinal fluid collection and testing and the clinical condition of the patient. Specimen CSF - CSF, Lumbar Puncture Performing Organization Address [facility] Phon e Number [facility] CANCER Unless otherwise noted, [address] all lab tests performed by: Division of Pathology and Laboratory Medicine [address] [place] [address] [address] Glucose CSF (03/03/2021 1:41 PM NEUROBIOLOGIST) Glucose CSF 59 40 - 70 mg/dL [facility] Type CSF OtherComment: When [facility] reviewing the cell [facility] count and differential results, clinicians should consider the length of time between spinal fluid collection and testing and the clinical condition of the patient. Specimen CSF - CSF, Lumbar Puncture Performing Organization Address [facility] Phon e Number [facility] CANCER Unless otherwise noted, [address] all lab tests performed by: Division of Pathology and Laboratory Medicine [address] [place] [address] [place] Cytology Non[employer] Interpretation (03/03/2021 1:28 PM NEUROBIOLOGIST) Gross Description A: [facility] 1 Diff Quik; 1 Pap Stain Slides 5 ml. clear colorless fluid Specimen concentrated by cytocentrifugation technique Major Classification [facility]/benign [facility] Electro nically signed by Mavis Jorgensen MD on 2021 at 4:56 PM Diagnosis A. Cerebrospinal fluid, lumbar puncture: [facility] Retained/Biomarker SR: 2 S [facility] Testing Informational Points Some tests reported [facility] here may have been developed and performance characteristics determined by [facility] Pathology and Laboratory Medicine. These tests have not been specifically cleared or approved by the U.S. Food and Drug Administration. Specimen Fluid - CSF, Lumbar Puncture Performing Organization Address [facility] Phon e Number [facility] [address] [place] [address] CG MYC Tissue FISH Interpretation and Report (03/02/2021 11:06 AM NEUROBIOLOGIST) Specimen Narrative This result has an attachment that is no t available. Cytogenetics Specimen Collection -FFPE (03/02/2021 11:06 AM NEUROBIOLOGIST) Imani Sheriff Link [id number] [facility] Comment: [facility] Collection date/time has bee n modified to: 11:06:00. Previous collection date/time: 11:06:00. Corrected from [id number] [NA] on 03/08/21 11:08:53 CS T by Harjeet Tariq. Cytogenetics Yes [facility] (Received) Comment: [facility]ENTER Collection date/time has bee n modified to: 11:06:00. Previous collection date/time: 11:06:00. Corrected from Yes [NA] on 03/08/21 11:08:53 NEUROBIOLOGIST by Harjeet Junior. Specimen FFPE Performing Organization Address City/[facility] Phon e Number [facility] CANCER Unless otherwise noted, [place] [address] CENTER all lab tests performed by: Division of Pathology and Laboratory Medicine [address] GUIDED BIOPSY RETROPERITONEAL (03/02/2021 9:30 AM NEUROBIOLOGIST) Specimen Narrative Rober Leon MD - 03/02/2021 4:50 PM NEUROBIOLOGIST Date of Procedure: 03/02/21 Attending Physician: Rober Mitchell i, MD Transportation Planner: Adeel Israel Pre Procedure Diagnosis: Follicular ly mphoma [[id number]] Post Procedure Diagnosis: Unchanged Indication: Evaluate for [...] I certify my physical presence at the [facility] of the procedure. I personally reviewed the image(s) and the resident's / fellow's interpretation and agree with the written report. Cytology Image-Guided FNA Interpretation (03/02/2021 8:54 AM NEUROBIOLOGIST) Gross Description A: [facility] Specimens procured: 2 Diff Quik; 2 Pap Stain Slides 10 ml, slightly cloudy bloody fluid in RPMI 1 FLOW 1 Cell Block Date/Time Placed in Formalin: 03/02/21, 1037 Size: 3.6 cm left retroperitoneal lymph node. Major Classification Nondiagnostic [facility] Electr onically signed by Dereck Dickerson MD on 03/08/2021 at 9:47 AM Diagnosis A. Retroperitoneum, left, fine needle aspiration: [facility] Electronically signed by Dereck Dickerson, Non-diagnostic specimen MD grecia romero 03/08/2021 at Rare degenerated lymphoid cells (see comment) 9:47 AM Comment Flow cytometry analysis ([id number]- [id number]) showed occasional B-cells, insufficient for clonality analysis. Please see the concurrently acquired core needle biopsy ([id number]) for a definitive diagnosis. [facility] Cell block section is contributory to the diagnosis. Retained/Biomarker SR: 4 S, 1 CB [facility] Testing Informational Points Some tests reported [facility] here may have been developed and performance characteristics determined by [facility] Pathology and Laboratory Medicine. These tests have not been specifically cleared or approved by the U.S. Food and Drug Administration. Specimen Fine Needle Asp - Retroperitoneum, Left Performing Organization Address City/State/ZIP Code Phon e Number [facility] [place] [address] [address] [facility] Pathology Biopsy Interpretation (03/02/2021 8:53 AM NEUROBIOLOGIST) Addendum 1 Cytogenetic study (FISH) buzz ws a negative result for MYC gene rearrangement. [facility] Addendum electronically The original diagnosis remains unchanged. signed by Isak Noriega MD on 03/18 at 10:06 AM Submitted Follicular lymphoma [C82.90] [facility] Clinical History Follicular lymphoma grade [...] Soft tissue, left retroperitoneum, core needle biopsy: [facility] Electronically signed by Isak bae [...] reported by the Clinical Cytogenetic Laboratory at [facility]. Medical necessity justificat ion for the immunohistochemical stains that were needed in addition to the flow cytometric immunophenotypic studies for the best diagnosis possible is as follows: The flow c ytometric studies are not cl early motor vehicle representative of all the features requiring evaluation in this specimen. Gross Description A: [facility] Retroperitoneum, left, *biom arkers*: 5 soft israel-brown tissue cores ranging from 0.7cm to 1.8 cm in length and 0.1 cm in diameter, entirely submitted in A1 (2 cores) and A2 (3 cores). ET Disclaimer "Some tests reported here [facility] may have been developed and performance characteristics determined by [facility] Pathology and Laboratory Medicine. These tests have not been specifically cleared or approved by the U.S. Food and Drug Administration. If applicable, controls were reviewed and showed appropriate reactivity." Specimen Tissue - Retroperitoneum, Left Performing Organization Address City/[facility]/ZIP [facility] Phon e Number [facility] [place] [place] [address] [address] (ABNORMAL) aPTT (03/02/2021 4:19 AM NEUROBIOLOGIST) Pathologist Sig [employer] aPTT 37.3 (H) 24.7 - 36.8 [facility]() [place] Specimen Blood Performing Organization Address [facility] Phon e Number [facility] CANCER Unless otherwise noted, [address] all lab tests performed by: Division of Pathology and Laboratory Medicine [address] (ABNORMAL) Prothrombin Time with INR (03/02/2021 4:19 AM NEUROBIOLOGIST)Only the most recent of4 resultswithin the time period is included. Pathologist [facility] [employer] PT 16.2 (H) 11.5 - 13.9 [facility]() FERTILE INR 1.39 (H) 0.90 - 1.10 [facility] Specimen Blood Performing Organization Address [facility] Phon e Number [facility] CANCER Unless otherwise noted, [address] all lab tests performed by: Division of Pathology and Laboratory Medicine [address] (ABNORMAL) Troponin T (In-House) (03/01/2021 4:11 AM NEUROBIOLOGIST)Only the most recent of5 resultswithin the time period is included. Pathologist Sig [employer] Troponin T 171 (C) <=18 ng/L [facility] Comment: CANCER CENTER < 19 ng/L Suggest [...] low results. Specimen Blood Performing Organization Address [facility] Phon e Number [facility] Unless otherwise noted, [address] all lab tests performed by: Division of Pathology and Laboratory Medicine [address] (ABNORMAL) Lactic Acid, Venous (02/28/2021 6:56 PM NEUROBIOLOGIST) Pathologist Sig nature V Lactate 2.0 (H) 0.5 - 1.6 mmol/L [facility] CE NTER Specimen Blood Performing Organization Address [facility] Phon e Number [facility] Unless otherwise noted, [address] all lab tests performed by: Division of Pathology and Laboratory Medicine [address] Blood Culture (02/28/2021 6:56 PM NEUROBIOLOGIST) Final Report No growth [facility] Path Review - Immunity and antibiotic use may render culture negative. Ongoing infection requires repeat culture. The results have been reviewed and electronically signed by Pathologist: [facility] Bottle/Isolator Wenceslao Young MD, PhD #[id number] CANCER C ENTER Specimen Blood Narrative [facility] - 2 2:52 PM NEUROBIOLOGIST Quantitative blood culture Isolator tube is QNS for testing. Refer to qualitative blood culture for test results. Performing Organization Address [facility] Phon e Number [facility] Unless otherwise noted, [address] all lab tests performed by: Division of Pathology and Laboratory Medicine [address] (ABNORMAL) Ammonia Level (02/28/2021 6:56 PM NEUROBIOLOGIST) Pathologist Sig nature Ammonia <13 (L) 16 - 60 mcmol/L [facility] [address] Specimen Blood Performing Organization Address [facility] Phon e Number [facility] Unless otherwise noted, [address] all lab tests performed by: Division of Pathology and Laboratory Medicine [address] [facility] MRI Brain with and without Contrast (02/27/2021 1:12 PM NEUROBIOLOGIST) Specimen Impressions [id number] - 02/27/2021 1:34 PM NEUROBIOLOGIST Exam is markedly motion degraded. No lar ge foci of abnormal parenchymal enhancement are identified, however recommend a repeat exam once the patient is able. Narrative [id number] - 02/27/2021 1:34 PM NEUROBIOLOGIST FULL RESULT: EXAMINATION: MRI BRAIN W WO [...] the patient is able. Performing Organization Address City/[facility]/ZIP Code Phon e Number [id number] (ABNORMAL) Cardiac Panel (02/26/2021 6:02 PM NEUROBIOLOGIST)Only the most recent of6 resultswithin the time period is included. CK 156 39 - 308 U/L [facility] CK MB 11.0 (H) <=10.4 ng/mL [facility] Troponin T 143 (C) <=18 ng/L [facility] Comment: CANCER CENTER < 19 ng/L Suggest [...] low results. Specimen Blood Performing Organization Address [facility] Phon e Number [facility] Unless otherwise noted, [address] all lab tests performed by: Division of Pathology and Laboratory Medicine [address] EKG, 12-Lead (02/26/2021)Only the most recent of4 resultswithin the time period is included. Specimen Narrative This result has an attachment that is no t available. Performing Organization Address City/[facility]/ZIP Code Phon e Number CODIE IECG (ABNORMAL) NT-Pro BNP (In-House) (02/24/2021 4:13 PM NEUROBIOLOGIST) Pathologist Sig nature NT ProBNP 21,122 (H) <=450 pg/mL [facility] Specimen Blood Performing Organization Address [facility]/ZIP [facility] Phon e Number [facility] CANCER Unless otherwise noted, [address] all lab tests performed by: Division of Pathology and Laboratory Medicine [address] (ABNORMAL) Lipid Panel (02/24/2021 4:13 PM NEUROBIOLOGIST)Only the most recent of2 results within the time period is included. Chol 137 <=199 mg/dL [facility] Comment: [facility] ATP III Classification of To juliette Cholesterol Primary Target of Therapy (in mg/dL): <200 Desirable 200-239 Borderline high >=240 High Trig 114 <=149 mg/dL [facility] Comment: [facility] ATP III Classification of Se rum Triglycerides Primary Target of Therapy (in mg/dL): <150 Normal 150-199 Borderline high 200-499 High >=500 Very high Non-fasting triglycerides >2 00 mg/dL may be followed up with a fasting Lipid Panel. Calculated LDL-C may be falsely decreased when non-fasting triglycerides >200 mg/dL. HDL 24 (L) >=40 mg/dL [facility] LDL 90 <=100 mg/dL [facility] Comment: [facility] ATP III Classification of LD L Cholesterol Primary Target of Therapy (in mg/dL): <100 Optimal 100-129 Near optimal/above optimal 130-159 Borderline high 160-189 High >=190 Very high VLDL 23 mg/dL [facility] Specimen Blood Performing Organization Address City/[facility]/ZIP Code Phon e Number [facility] CANCER Unless otherwise noted, [address] all lab tests performed by: Division of Pathology and Laboratory Medicine [facility]5 [facility] Hemoglobin A1c (02/24/2021 2:32 PM NEUROBIOLOGIST)Only the most recent of2 resultswithin the time period is included. Pathologist Sig nature A1C 5.2 4.3 - 5.6 % [facility] Comment: [facility] HbA1c values >=6.5% are diagnostic of diabetes mellitu s. Diagnosis should be confirmed by repeat testing. Therapeutic Action suggested: >8.0% HbA1c; Goal of therapy: <7.0% HbA1c Specimen Blood Performing Organization Address City/State/[facility] Phon e Number [facility] CANCER Unless otherwise noted, [address] all lab tests performed by: Division of Pathology and Laboratory Medicine [facility]5 [facility] Echocardiogram 2D Complete with Contrast (02/24/2021 10:00 AM NEUROBIOLOGIST) Specimen Narrative ISCV - 02/24/2021 11:45 AM NEUROBIOLOGIST Echocardiographic Report Interpretation Summary A complete two-dimensional [...] was not perform ed in this study. (Alkymos Study). Diastology: Pseudonormal LV relaxation pattern of [...] WB Initial Treatment Strategy (02/24/2021 7:42 AM NEUROBIOLOGIST) Specimen Impressions [id number] - 02/24/2021 3:55 PM NEUROBIOLOGIST Confluent abnormal FDG-avidity involving the spleen, pancreatic tail, and posterior stomach and FDG-avid retroperitoneal lymphadenopathy are consistent with active lymphoma. Narrative [id number] - 02/24/2021 3:55 PM NEUROBIOLOGIST FULL RESULT: Examination: FDG PET/CT, 02/24/2021 7:42 [...] Organization Address City/State/ZIP Code Phon e Number [id number] (ABNORMAL) Hepatitis B Core Total Antibody (02/23/2021 5:20 PM NEUROBIOLOGIST) HBc Total Ab-[place] Positive (A) Negative [facility] Comment: CANCER CENTER If clinically indicated, testing for Hepatitis B Core IgM antibody is necessary to differentiate between acu te and past HBV infection. Test Performed by: [facility] [place] [address] Independent Beauty Consultant: Jaycob Izaguirre M.D. Ph.D.; CLIA# [id number] Specimen Blood Performing Organization Address [facility] Phon e Number [facility] CANCER Unless otherwise noted, [address] all lab tests performed by: Division of Pathology and Laboratory Medicine [address] [place] [address] HTLV I/II Ab Screen with Confirm (02/23/2021 5:20 PM NEUROBIOLOGIST) [facility] HTLV I/II Ab Negative Negative [facility] Comment: CANCER CENTER Test Performed by: [facility] [place] [address] Independent Beauty Consultant: Jaycob Izaguirre M.D. Ph.D.; CLIA# [id number] Specimen Blood Performing Organization Address [facility] e Number [facility] Unless otherwise noted, [address] all lab tests performed by: Division of Pathology and Laboratory Medicine [address] [place] [address] HIV-1 DNA and RNA Qual PCR (02/23/2021 5:20 PM NEUROBIOLOGIST) [facility] HIV-1 DNA/RNA Undetected Undetected [facility] Qual-[place] Comment: CANCER CENTER Repeat testing in 1 to 2 months is recommended for tho se at risk of HIV-1 infection. ADDITIONAL INFORMATION ------ This test was performed using the Ramon RealTime HIV- 1 Qualitative assay ([employer] [place] , [place]). This test was developed and its performance characteri stics determined by [facility] in a manner consistent with CLIA requirements. This test has not been cleared or approv ed by the U.S. Food and Drug Administration. Test Performed by: [facility] [place] [address] Independent Beauty Consultant: Jaycob Izaguirre M.D. Ph.D.; CLIA# [id number] Specimen Blood Performing Organization Address [facility] Phon e Number [facility] CANCER Unless otherwise noted, [address] all lab tests performed by: Division of Pathology and Laboratory Medicine [address] HIV 1/2 Ag&Ab Path Interp (02/23/2021 5:20 PM NEUROBIOLOGIST) Pathologist [facility] [place] HIV 1/2 Ag&Ab Negative for HIV-1 antigen a nd HIV-1/HIV-2 antibodies. No laboratory evidence of HIV infection. If acute HIV infection is suspected, consider testing for HIV-1 RNA. [facility] Interp Comment: CENTER MD Rip KNAPP [id number] Dictated by: ROM GUTIERREZ MD - [id number] Dictated Date/Time: 02.26.20 9:57 AM NEUROBIOLOGIST Transcribed Date/Time: 02.25.2021 9:57 AM NEUROBIOLOGIST Electronically Signed By: MD Rip MAHAN [id number] on 02.25.2021 9:57 AM C Specimen Blood Performing Organization Address City/[facility]/ZIP Code Phon e Number [address] [address] Rapid Plasma Reagin (RPR) [Syphilis SCREENING] (02/23/2021 5:20 PM NEUROBIOLOGIST) Pathologist Sig nature RPR Screening Non Reactive Non Reactive [facility] Specimen Blood Performing Organization Address City/State/ZIP [facility] Phon e Number [address] [address] TMP RPR Path Interpretation (02/23/2021 5:20 PM NEUROBIOLOGIST) Pathologist [facility] [place] TMP RPR Path The Rapid Plasma Reagin (RPR ) assay is negative. If a syphilis infection is suspected, please perform a Treponemal specific screening assay. [facility] Interpretation Comment: CENTER MD Rip KNAPP [id number] Dictated by: MD Rip KNAPP [id number] Dictated Date/Time: 02.26.20 9:57 AM NEUROBIOLOGIST Transcribed Date/Time: 02.25.2021 9:57 AM NEUROBIOLOGIST Electronically Signed By: MD Rip MAHAN [id number] on 02.25.2021 9:57 AM C Specimen Blood Performing Organization Address City/[facility] Phon e Number [facility] [address] [place] [address] HIV-1/2 Antigen and Antibodies, Fourth Generation (02/23/2021 5:20 PM NEUROBIOLOGIST) Pathologist [facility] [place] HIV 1/2 Ag & Ab, Non Reactive Non Reactive [facility] 4th Gen Comment: CENTER Performed at: [facility] [address] [place] [id number] Specimen Blood Performing Organization Address [facility] Phon e Number [facility] [address] [place] [address] TMP HCV Ab Path Interp (02/23/2021 5:20 PM NEUROBIOLOGIST) Pathologist [facility] [place] HCV Ab Path There is NO serologic evidence of Hepatitis C vi desire antibody. [facility] Interp Comment: CENTER MD Rip KNAPP [id number] Dictated by: MD Rip KNAPP [id number] Dictated Date/Time: 02.26.20 9:56 AM NEUROBIOLOGIST Transcribed Date/Time: 02.25.2021 9:56 AM NEUROBIOLOGIST Electronically Signed By: MD Rip MAHAN on 02.25.2021 9:56 AM C Specimen Blood Performing Organization Address City/[facility] Phon e Number [facility] [address] [place] [address] Hepatitis C Virus Ab (02/23/2021 5:20 PM NEUROBIOLOGIST) Pathologist [facility] [place] HCVAb. Non Reactive Non Reactive [facility] Comment: CENTER Antibody detection in the im munocompromised and immunosuppressed population may be delayed or absent entirely. Therefore serial testing, correlation with other clinical findings, and supplemental testin g (if available) should be taken into consideration when interpreting the results. Performed at: [facility] [address] [place] [address] Specimen Blood Performing Organization Address [facility] Phon e Number [facility] [address] [place] [address] Hepatitis B Surface Ag w/Confirm (02/23/2021 5:20 PM NEUROBIOLOGIST) Pathologist [facility] [place] Hep Bs Ag-[place] Negative Negative [facility] Comment: [facility] CENTER Test Performed by: [address] [address] Independent Beauty Consultant: Jaycob Izaguirre M.D. Ph.D.; CLIA# [id number] Specimen Blood Performing Organization Address [facility] Phon e Number [facility] CANCER Unless otherwise noted, [address] all lab tests performed by: Division of Pathology and Laboratory Medicine [address] [place] [address] Hepatitis B Total Ig Core Ab (SCREENING) (anti-HBc total Ig; HBcAb total Ig) (02/23/2021 5:20 PM NEUROBIOLOGIST) Pathologist Sig nature HBcAb Received See NoteComment: [facility] HBcAb was sent to a CANCER CENTER reference lab for testing. Expect results on Hepatitis B Core Total Ab within 96 hours. Specimen Blood Performing Organization Address [facility] Phon e Number [facility] CANCER Unless otherwise noted, [address] all lab tests performed by: Division of Pathology and Laboratory Medicine [address] [place] [address] CMV Ab IgG+IgM Path Review (02/23/2021 5:20 PM NEUROBIOLOGIST) [facility] CMV Panel MT Positive IgG with low IgM rojas ggests previous infection. IVIG can give false positivity. [facility] High titers of IgG can give false negative IgM. Therefore, active disease is CANCER CENTER possible but less likely with this pattern. Reviewed and Electronically signed by Pathologist: Wenceslao Young MD, PhD #[id number] Comment: Test performed by an immunoa ssay intended for the qualitative detection of IgG and IgM antibodies to Cytomegalovirus (CMV) in human serum. When equivocal results are obtained, another specimen should be collected 10-14 days later. WENCESLAO YOUNG MD, PhD - [id number] Dictated by: WENCESLAO YOUNG MD, PhD - [id number] Dictated Date/Time: 03.01.19 9:10 AM NEUROBIOLOGIST Transcribed Date/Time: 03.01.2021 9:10 AM NEUROBIOLOGIST Electronically Signed By: NICOLE YOUNG MD, PhD - [id number] on 03.01.2021 9:10 AM C Specimen Blood Performing Organization Address City/State/ZIP Code Phon e Number [facility] CANCER Unless otherwise noted, [address] all lab tests performed by: Division of Pathology and Laboratory Medicine [address] [place] [address] (ABNORMAL) CMV Ab IgG+IgM (02/23/2021 5:20 PM NEUROBIOLOGIST) Pathologist Sig nature CMV IgM Int Negative Negative [facility] CMV IgG Int Positive (A) Negative [facility] Specimen Blood Performing Organization Address City/[facility] Phon e Number [facility] CANCER Unless otherwise noted, [address] all lab tests performed by: Division of Pathology and Laboratory Medicine [address] [place] [address] TMP Interpretation TOSHA (02/23/2021 5:20 PM NEUROBIOLOGIST) TMP Interp TOSHA Patient red blood cells demo nstrate no evidence of detectable IgG antibodies or complement. [facility] Comment: CANCER FERTILE ROM GUTIERREZ MD - [id number] Dictated by: ROM GUTIERREZ MD - 1 [id number] Dictated Date/Time: 02.25.20 8:32 AM NEUROBIOLOGIST Transcribed Date/Time: 02.24.2021 8:32 AM NEUROBIOLOGIST Electronically Signed By: MARTINA GUTIERREZ MD - [id number] on 02.24.2021 8:32 AM C Specimen Blood Performing Organization Address City/State/ZIP Code Phon e Number [facility] CANCER Unless otherwise noted, [place] [address] CENTER all lab tests performed by: Division of Pathology and Laboratory Medicine [address] (ABNORMAL) Cytokine Panel (02/23/2021 5:20 PM NEUROBIOLOGIST) Tumor Nec 7.5 (H) <=7.2 pg/mL [facility] Onl-Dhr-Gcdh Comment: CANCER CENTER INTERPRETIVE INFORMATION: Cytokines Results are used to understand the pathophysiology of immune, infectious, or inflammatory disorders, or may be used for research purposes. This test was developed and its performance characteri stics determined by [employer]. It has not been clear ed or approved by the [place] Food and Drug Administration. This test was performed in a CLIA certified laboratory and is intended for clinical purposes. Performed By: [employer] [address] [place] [address] Health Informatics Specialist: Zamzam Melissa MD Interleuk 2-Shaw <2.1 <=2.1 pg/mL [facility] Interleukin 2 980.5 (H) 175.3 - [facility] Rcpt-Shaw 858.2 pg/mL CANCER CENTER Interleukin <1.9 <=1.9 pg/mL [facility] 12-[facility] CENTER Interferon <4.2 <=4.2 pg/mL [facility] gamma-[facility] CENTER Interleukin 4-Shaw <2.2 <=2.2 pg/mL [facility] Interleukin 5-[place] <2.1 <=2.1 pg/mL [facility] Interleukin 24.4 (H) <=2.8 pg/mL [facility] 10-[place] CANCER CENTER Interleukin 2.0 <=2.3 pg/mL [facility] 13-[place] CAN[facility]ER CENTER Interleukin <1.4 <=1.4 pg/mL [facility] 17-[facility] CENTER Interleukin 1 <6.5 <=6.7 pg/mL [facility] beta-[facility] CENTER Interleukin 6-Shaw 28.6 (H) <=2.0 pg/mL [facility] Interleukin 8-[place] <3.0 <=3.0 pg/mL [facility] Comment: CANCER CENTER Test Performed by: [employer] [address] [place] [address] Specimen Blood Performing Organization Address [facility]/ZIP [facility] Phon e Number [facility] CANCER Unless otherwise noted, [address] all lab tests performed by: Division of Pathology and Laboratory Medicine [address] HTLV I/II Ab (02/23/2021 5:20 PM NEUROBIOLOGIST) HTLVI/II Ab See NoteComment: [facility] Received HTLV I/II Ab was CANCER CENTER sent to a reference lab for testing. Expect results on HTLV I/II Ab Screen with Confirm within 96 hours. Specimen Blood Performing Organization Address [facility] Phon e Number [facility] CANCER Unless otherwise noted, [address] all lab tests performed by: Division of Pathology and Laboratory Medicine [address] (ABNORMAL) Vitamin D 25OH (02/23/2021 5:20 PM NEUROBIOLOGIST) Vitamin D 25 OH 28 (L) 30 - 100 ng/mL [facility] Comment: [facility] CENTER Reference Range: Deficiency: <10 ng/mL Insufficiency: 10-29 ng/mL Sufficiency: 30-100 ng/mL Potential toxicity: >100 ng/mL Specimen Blood Performing Organization Address [facility] Phon e Number [facility] Unless otherwise noted, [address] all lab tests performed by: Division of Pathology and Laboratory Medicine [address] Hepatitis B Surface Ag (02/23/2021 5:20 PM NEUROBIOLOGIST) Pathologist Sig nature HBsAg Received See NoteComment: [facility] HBsAg was sent to a CANCER CENTER reference lab for testing. Expect results on Hepatitis B Surface Antigen w/ Confirm within 96 hours. Specimen Blood Performing Organization Address [facility] Code Phon e Number [facility] CANCER Unless otherwise noted, [address] all lab tests performed by: Division of Pathology and Laboratory Medicine [address]ce Direct Antiglobulin Test (02/23/2021 5:20 PM NEUROBIOLOGIST) Pathologist Sig nature TOSHA Result IgG neg,C3 neg [facility] Specimen Blood Performing Organization Address City/[facility]/ZIP Code Phon e Number [facility] CANCER Unless otherwise noted, [address] all lab tests performed by: Division of Pathology and Laboratory Medicine [address] TSH (02/23/2021 5:20 PM NEUROBIOLOGIST) Pathologist Sig nature TSH 1.62 0.27 - 4.20 mcunit/mL [facility] CAN ER CENTER Specimen Blood Performing Organization Address City/[facility]/ZIP Code Phon e Number [facility] CANCER Unless otherwise noted, [address] all lab tests performed by: Division of Pathology and Laboratory Medicine [address] T4 (02/23/2021 5:20 PM NEUROBIOLOGIST) Pathologist Sig nature T4 7.0 4.5 - 11.7 mcg/dL [facility] C ENTER Specimen Blood Performing Organization Address [facility] Phon e Number [facility] CANCER Unless otherwise noted, [address] all lab tests performed by: Division of Pathology and Laboratory Medicine [address] Total Protein (02/23/2021 5:20 PM NEUROBIOLOGIST) Pathologist Sig nature Total Protein 6.4 6.4 - 8.3 g/dL [facility] [address] Specimen Blood Performing Organization Address [facility] Phon e Number [facility] CANCER Unless otherwise noted, [address] all lab tests performed by: Division of Pathology and Laboratory Medicine [address] IgA (02/23/2021 5:20 PM NEUROBIOLOGIST) Pathologist Sig nature IgA 225 85 - 499 mg/dL [facility] ER Specimen Blood Performing Organization Address [facility] Phon e Number [facility] CANCER Unless otherwise noted, [address] all lab tests performed by: Division of Pathology and Laboratory Medicine [address] (ABNORMAL) IgM (02/23/2021 5:20 PM NEUROBIOLOGIST) Pathologist Sig nature IgM 331 (H) 35 - 242 mg/dL [facility] CENT ER Specimen Blood Performing Organization Address [facility] Phon e Number [facility] CANCER Unless otherwise noted, [address] all lab tests performed by: Division of Pathology and Laboratory Medicine [address] IgG (02/23/2021 5:20 PM NEUROBIOLOGIST) Pathologist Sig nature IgG 885 610 - 1,616 mg/dL [facility] C ENTER Specimen Blood Performing Organization Address City/State/ZIP Code Phon e Number [facility] CANCER Unless otherwise noted, [address] all lab tests performed by: Division of Pathology and Laboratory Medicine [facility] Methowrupali Pearce (ABNORMAL) Beta 2 Microglobulin (02/23/2021 5:20 PM NEUROBIOLOGIST) Pathologist Sig nature Beta2 Microglob 2.7 (H) 0.8 - 2.3 mg/L [facility] Specimen Blood Performing Organization Address City/State/ZIP Code Phon e Number [facility] CANCER Unless otherwise noted, [address] all lab tests performed by: Division of Pathology and Laboratory Medicine [address] [place] [address] [place] Electrolyte Panel (02/23/2021 5:20 PM NEUROBIOLOGIST) Pathologist Sig nature Sodium Lvl 139 136 - 145 mEq/L [facility] Potassium Lvl 3.5 3.5 - 5.1 mEq/L [facility] Chloride 103 98 - 107 mEq/L [facility] CO2 22 22 - 29 mEq/L [facility] Anion Gap 14 4 - 14 mEq/L [facility] Specimen Blood Performing Organization Address City/[facility] Phon e Number [facility] CANCER Unless otherwise noted, [address] all lab tests performed by: Division of Pathology and Laboratory Medicine [address] [place] [address] [place] COVID-19 (SARS-CoV-2)Asymptomatic-LT (02/23/2021 4:29 PM NEUROBIOLOGIST) COVID19 Not Detected Not Detected [facility] (SARS-CoV-2) [facility] COVID19 SARS Inpatient Admission [facility] Indication [facility] Covid 19 Comment See Note [facility] Comment: [facility] The kayla SARS-CoV-2 nucleic acid test for use on the kayla Flakita System is a real-time RT-PCR assay intended for the qualitative detection of SARS-CoV-2 (COVID-19) viral RNA in nasopharyngeal swabs from either individuals suspected of COVID-19 by their healthcare provider or from any individual, including individuals without symptoms or other reasons to suspect COVID-19. A fact sheet for patients provided by the parts salvager ([employer]) can be reviewed at: https://www.fda.gov/media/15 7507/download. A fact sheet for Health Care providers is provided by the parts salvager ([employer]) and can be reviewed at: https://www.fda.gov/media/088882/download Results must be interpreted within the context [...] and high-complexity tests. The Microbiology Laboratory at [facility] [place], CLIA Accreditation # [id number] and CAP Accreditation #[id number], verified the performance characteristics of this assay. Internal controls are used to monitor all stages of the test process. Specimen Nasopharyngeal Swab Performing Organization Address City/State/ZIP Code Phon e Number [facility] CANCER Unless otherwise noted, [address] all lab tests performed by: Division of Pathology and Laboratory Medicine [facility] Pathology Outside Interpretation (02/04/2021) Materials Accession#, Stained, Block, Unstained Collected Receiv ed [facility] Received A. 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 No additional testing was performed on this sample at [facility]. Disclaimer "Some tests reported here [facility] may have been developed and performance characteristics determined by [facility] Pathology and Laboratory Medicine. These tests have not been specifically cleared or approved by the U.S. Food and Drug Administration. If applicable, controls were reviewed and showed appropriate reactivity." Specimen Tissue Performing Organization Address City/State/ZIP Code Phon e Number [facility] [place] [address] [address] after 04/12/2020 Insurance Payer Benefit Plan / Subscriber ID Effective Dates Phone Addre ss Type Group [employer] MEDICARE AETNA MEDICARE [id number] 2021-Presen [address] [place] [address] Advance Directives Code Status Date Activated Date Inactivated Comments DNR 03/05/2021 10:41 AM 03/24/2021 9:26 PM DNR obtained from: Legal Guardian or MPOA Full Code 02/23/2021 2:13 PM 03/05/2021 10:41 AM Full Code 10/29/2018 6:58 PM 11/12/2018 9:54 PM Full Code 10/10/2018 10:29 AM 10/15/2018 8:46 PM Care Teams Operations Research Manager Relationship Specialty Start Date End Date Kuldeep Melgoza MD PCP - External Dermatology 08/16/18 [address] [id number] [place] [address] Roshan Sauceda MD PCP - General Head and Neck Surgery 08/16/[address] [place] [id number] Ronn Wilson, PCP - External Primary Family Practice 09/04/17 MD Care Provider [address] [facility] [address] [place], [place] [address] Pollo Navarro PCP - External Follow Cardiology 09/04/17 MD Rae Up A [address] [facility] [address] [place], [place] [address]
--- OUTSIDE RECORDS SUMMARY | 2021-04-12 20:33 | XMS REPORT | Continuity of Care Document ---
:1935 Author Organization [facility] t Address [address] [place] [address] Dr. Dickerson [address] [place] [id number] Care Team Providers Name Role Phone [phone] Primary Care Physician Unavailable SYSTEM, NOT IN Attending Clinician Unavailable Sumeet BRADLEY Attending Clinician Unavailable Isak MANTILLA Attending Clinician Unavailable ROXANA Attending Clinician Unavailable Amador LOKCETT PhD Attending Clinician Miguelangel Springer MD Attending [...] Clinician Unavailable AMADOR Attending Clinician Unavailable Swetha MANAGER ADMINISTRATIVE Attending Clinician Unavailable Tahir MAGALLANES Attending Clinician [...] Date Expiration Date S vernon [employer] MANAGED [address] 2020 MEDICARE PPO-FERNANDO 00:00:00 AETNA MEDICARE [...] Mem oria -14 22:24:00 l FEVER 00:00: [place] 00 Active 01/09/2019 [place] Unexplaine Unexplaine Disease Active 2018-02 Last M [...] Added automatic ally from request for surgery [id number] Encounter Encounter Disease Active Overview: for other [...] 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 [id number] Carotid Duplex: <50% plaque within right ICA, normal left ICA, antegrade flow within bilateral vertebral arteriesO records from [place], [place] Tripp t Cardiolog yreviewed [facility] 05/09/17: LAD prox patent stent X [...] 2021-03-11 Memor ia (finding) 23:20:25 l Tremor [place] (finding) Active Problem 03/11/2021 [facility] Amnesia Problem Active 2021-03-11 Pepe micki (finding) 23:20:25 l Amnesia [place] (finding) Active Problem 03/11/2021 [facility] Hallucinos Hallucinos Disease Active M D is is Anderso n History of Past Illness Condition Condition Condition Status Onset Resolution Last Treating Co mments Source Name Details Category Date Date Treatment Clinician Date Chills Problem 2018-022019-01-21 2019-01-21 M emoria (without -14 22:44:12 22:44:12 l fever) Chills 18:00: Philip (without 00 fever) 01/09/2019 01/21/2019 [place] Allergies, Adverse Reactions, Alerts Allergy Allergy Status [...] s Branch codeine codeine Active Memoria l [place] Cipro Cipro Active Memoria l [place] Keflex Keflex Active Memoria l [place] NO KNOWN Allergy Active [facility] ALLERGIE S NO KNOWN Drug Active Univers ALLERGIE Class ity of S [facility] Family History Family Member Diagnosis Comments Start [...] of tobacco Current smoker MD Blackwell use History [facility] - Alcohol Comment Medical C enter Exposure to Not sure University of SARS-CoV-2 (event) [facility] Alcohol intake 2021-03-03 2021-03-03 Ex-drinker MD Adam romero 00:00:00 00:00:00 (finding) History [facility] 2020-09-26 2020-09-[address] [facility] - Alcohol Frequency 00:00:00 00:00:00 Medical Center History SDOH 2020-09-26 2020-09-[address] [facility] - Alcohol Std Drinks 00:00:00 00:00:00 Medica l Center History SDOH 2020-09-26 2020-09-[address] [facility] - Alcohol Binge 00:00:00 00:00:[address] Social History 2020-08-09 2020-08-09 [facility] faith 20:37:37 20:37:37 Cigarettes smoked 2018-09-04 2018-09-04 MD Arya mitchell current (pack per 00:00:00 00:00:00 day) - Reported Cigarette 2018-09-04 2018-09-04 MD Blackwell pack-years 00:00:00 00:00:00 Tobacco use and 2018-09-04 2018-09-04 Former smokeless MD Blackwell exposure 00:00:00 00:00:00 tobacco user Sex Assigned At [birth year] [facility] y of 00:00:00 00:00:00 [facility] Smoking Status Start Date Stop Date Source Unknown if ever smoked [facility] Never smoker [facility] Social History 2019-01-10 07:34:37 2019-01-10 07:34:37 [facility] Medications Ordered Filled Start Stop Current [...] 00 90 tab, 1 [Aricept] Refill(s), Pharmacy: [id number], 175.26, cm, 07/19/20 14:31:00 CDT, Height, 75.909, kg, 07/19/20 14:31:00 CDT, Weight Pramipexole 2020-02 Yes 0.125 mg = Memoria dihydrochlo 0-12 1 tab, PO, l ride 0.125 14:54: TID, # 270 H ermann MG Oral 00 tab, 3 Tablet Refill(s), [Mirapex] Pharmacy: [facility] #[id number], 175.26, cm, 07/19/20 14:31:00 CDT, Height, [...] on Sun [place] (MAXITROL) 00 12/01/20 at [facility] ica 3.5 1027, Branch mg/g-10,000 Until unit/g-0.1 Discontinu % ed, ophthalmic Routine, ointment Intra-op neomycin-po 2020-02- No PRN, Unive rs lymyxin-dex 0-06 10-06 Starting ity of amethasone 15:27: 18:16 on [place] (MAXIT[place]OL[place] 00 :40 12/01/20 at [facility] ica 3.5 1027, Branch mg/g-10,000 Until Wed unit/g-0.1 12/01/20 at % 1316, ophthalmic Routine, ointment Intra-op balanced 2020-02 Yes PRN, Univers salt irrig 0-06 Starting ity o f soln comb1 15:23: on Sun (BSS PLUS) 00 12/01/20 at [facility] ica ophthalmic 1023, Branch solution Until 500 mL bag Discontinu ed, Routine, Intra-op EPINEPHrine 2020-02 Yes PRN, Univer s 1:1,000 (1 0-06 Starting ity o f mg/mL) 15:23: on Sun (ADRENALIN) 00 12/01/20 at Ms dical injection 1023, Branch Until Discontinu ed, Routine, Intra-op balanced 2020-02- No PRN, Univers salt irrig 0-06 10-06 Starting ity of soln comb1 15:23: 18:16 [place] (BSS PLUS[place] 00 :40 12/01/20 at [facility] ica ophthalmic 1023, Branch solution Until Wed 500 mL bag 12/01/20 at 1316, Routine, Intra-op EPINEPHrine 2020-02- No PRN, Unive rs 1:1,000 (1 0-06 10-06 Starting ity of mg/mL) 15:23: 18:16 on Sun [place] (ADRENALIN) 00 :40 12/01/20 at Ms dical injection 1023, Branch Until 10/6/21 at 1316, Routine, Intra-op water for 2020-02 Yes PRN, Univers irrigation 0-06 Starting ity o f irrigation 15:19: on Sun [place] solution 00 12/01/20 at [facility] al 1019, Branch Until Discontinu ed, Routine, Intra-op water for 2020-02- No PRN, Univers irrigation 0-06 10-06 Starting ity of irrigation 15:19: 18:16 on Sun [place] solution 00 :40 12/01/20 at [facility] al 1019, Branch Until Sun12/01/20 at 1316, Routine, Intra-op Hyaluronida 2020-02 Yes PRN, Univer s se, Human 0-06 Starting ity of Recomb. 15:15: on Sun (HYLENEX) 00 12/01/20 at [facility] injection 1015, Branch Until Discontinu ed, Routine, Intra-op eye block 2020-02 Yes PRN, Univers syringe 11 0-06 Starting ity o f mL 15:15: on Sun [place] 00 12/01/20 at [facility] 1015, Branch Until Discontinu ed, Intra-op Hyaluronida 2020-02- No PRN, Unive rs se, Human 0-06 10-06 Starting ity o f Recomb. 15:15: 18:16 on Sun [place] (HYLENEX) 00 :40 12/01/20 at [facility] injection 1015, Branch Until Sun12/01/20 at 1316, Routine, Intra-op eye block 2020-02- No PRN, Univers syringe 11 0-06 10-06 Starting ity of mL 15:15: 18:16 on Sun [place] 00 :40 12/01/20 at [facility] 1015, Branch Until Sun12/01/20 at 1316, Intra-op mydriatic 2020-02- No .5mL 0.5 mL, Univ ers #5 0-06 10-06 Left Eye, ity of ophthalmic 14:00: 13:58 ONCE, 1 Hernán as solution 00 :00 dose, On Medical 0.5 mL [facility] syringe 12/01/20 at 0900, Routine, DSU [...] 0-06 by mouth. ity of tablet 11:16: [address] famotidine 2020-02 Yes 20mg Take 20 mg U nivers 20 mg 0-06 by mouth. ity of tablet 11:16: [address] aspirin 81 2020-02 Yes 81mg Take 81 mg U nivers mg EC 0-06 by mouth. ity of tablet 11:16: [address] famotidine 2020-02 Yes 20mg Take 20 mg U nivers 20 mg 0-06 by mouth. ity of tablet 11:16: [address] sotaloL Yes life-threat 80mg Q.5D Take [address] (BETAPACE) 8-04 ening by mouth 2 Francy kes - 80 MG 17:43: ventricular (two) Medi mendez tablet 16 tachycardia times Cente r daily. clopidogreL Yes acute 75mg QD Take [address] (PLAVIX) 75 8-04 coronary by mouth Lukes - mg tablet 17:43: syndrome daily. Ms dical [address] [place] [address] atorvastati Yes 80mg QD Take [address] [facility] (LIPITOR) 8-04 by mouth Luke s - 80 MG 17:43: daily. Medical tablet 16 Center furosemide 0 Yes 80mg Q.[id number] Take [address] (LASIX) 80 8-04 [id number] by mouth 3 [facility] - MG tablet [...] Lukes - mg tablet 17:43: syndrome daily. [address] atorvastati Yes 80mg QD Take [address] [facility] (LIPITOR) 8-04 by mouth Luke s - 80 MG 17:43: daily. Medical tablet [place] furosemide Yes 80mg Q.[id number] Take [address] (LASIX) 80 8-04 [id number] by mouth 3 [facility] - MG tablet [...] Lukes - mg tablet 17:43: syndrome daily. [address] atorvastati Yes 80mg QD Take [address] [facility] (LIPITOR) 8-04 by mouth Luke s - 80 MG 17:43: daily. Medical tablet [address] [place] [address] furosemide 0 Yes 80mg Q.[id number] Take [address] (LASIX) 80 8-04 [id number] by mouth 3 [facility] - MG tablet [...] 09-15 by mouth. ity of tablet 20:06: [address] famotidine Yes 20mg Take 20 mg U nivers 20 mg 09-15 by mouth. ity of tablet 20:06: [address] aspirin 81 0 Yes 81mg Take 81 mg U nivers mg EC 09-15 by mouth. ity of tablet 20:06: [address] famotidine Yes 20mg Take 20 mg U nivers 20 mg 09-15 by mouth. ity of tablet 20:06: [address] balanced 0 Yes PRN, Univers salt irrig 09-15 Starting ity o f soln comb1 18:58: [place] (BSS PLUS) 00 09/15/20 at Med ical ophthalmic 1358, Branch solution Until 500 mL bag Discontinu ed, Routine, Intra-op carbachoL Yes PRN, Univers (MIOSTAT) 09-15 Starting ity of 0.01 % 18:58: Sun [place] intraocular 00 09/15/20 at Ms dical injection 1358, Branch Until Discontinu ed, [...] Starting ity of soln comb1 18:58: 22:06 [facility] (BSS PLUS) 00 :51 09/15/20 at [facility] ical ophthalmic 1358, Branch solution Until Wed 500 mL bag 09/15/20 at 1706, Routine, Intra-op carbachoL 2020- No PRN, Univers (MIOSTAT) 09-15 Starting ity o f 0.01 % 18:58: 22:06 Wed [place] intraocular 00 :51 09/15/20 at Ms dical injection 1358, Branch Until Sun09/15/20 at 1706, Routine, Intra-op dexamethaso 2020- No PRN, Unive rs ne 09-15 Starting ity of (DECADRON 18:58: 22:06 [facility] PHOSPHATE) 00 :51 09/15/20 at [facility] ical injection 1358, Branch Until Sun09/15/20 at 1706, Routine, Intra-op DUOVISC 2020- No PRN, Univers (DUOVISC 09-15 Starting ity of VISCO 18:58: 22:06 [facility] ELASTIC) 3 00 :51 09/15/20 at [facility] %-4 %(0.5 1358, Branch mL) 1 % Until Wed (0.55 mL) 09/15/20 at intraocular 1706, injection Routine, Intra-op neomycin-po Yes PRN, Univer s lymyxin-dex 09-15 Starting ity of amethasone 18:57: [facility] (MAXITROL) 00 09/15/20 at [facility] ical 3.5 1357, Branch mg/g-10,000 Until unit/g-0.1 Discontinu % ed, ophthalmic Routine, ointment Intra-op neomycin-po 2020- No PRN, Unive rs lymyxin-dex 09-15 Starting ity of amethasone 18:57: 22:06 [facility] (MAXITROL) 00 :51 09/15/20 at [facility] ical 3.5 1357, Branch mg/g-10,000 Until Wed unit/g-0.1 09/15/20 at % 1706, ophthalmic Routine, ointment Intra-op EPINEPHrine Yes PRN, Univer s 1:1,000 (1 09-15 Starting ity o f mg/mL) 18:53: Sun [place] (ADRENALIN) 00 09/15/20 at Ms dical injection 1353, Branch Until Discontinu ed, Routine, Intra-op EPINEPHrine 2020- No PRN, Unive rs 1:1,000 (09-15 Starting ity of mg/mL) 18:53: 22:06 Sun [place] (ADRENALIN) 00 :51 09/15/20 at Ms dical injection 1353, Branch Until Sun09/15/20 at 1706, Routine, Intra-op water for Yes PRN, Univers irrigation 09-15 Starting ity o f irrigation 18:50: Sun [place] solution 00 09/15/20 at Medic al 1350, Branch Until Discontinu ed, Routine, Intra-op water for 2020- No PRN, Univers irrigation 09-15 Starting ity of irrigation 18:50: 22:06 [facility] solution 00 :51 09/15/20 at Medic al 1350, Branch Until Sun09/15/20 at 1706, Routine, Intra-op Hyaluronida Yes PRN, Univer s se, Human 09-15 Starting ity of Recomb. 18:47: Sun [place] (HYLENEX) 00 09/15/20 at [facility] mendez injection 1347, Branch Until Discontinu ed, Routine, Intra-op Hyaluronida 2020- No PRN, Unive rs se, Human 09-15 Starting ity o f Recomb. 18:47: 22:06 [facility] (HYLENEX) 00 :51 09/15/20 at Medi mendez injection 1347, Branch Until Sun09/15/20 at 1706, Routine, Intra-op eye block Yes PRN, Univers syringe 09-15 Starting ity o f mL 18:45: Sun [place] 00 09/15/20 at [facility] 1345, Branch Until Discontinu ed, Intra-op eye block 2020- No PRN, Univers syringe 11 09-15 Starting ity of mL 18:45: 22:06 [facility] [place] 00 :51 09/15/20 at [facility] 1345, Branch Until Sun09/15/20 at 1706, [...] 7-21 by mouth. ity of tablet 15:06: [address] famotidine Yes 20mg Take 20 mg U nivers 20 mg 7-21 by mouth. ity of tablet 15:06: [address] aspirin 81 Yes 81mg Take 81 mg U nivers mg EC 7-21 by mouth. ity of tablet 15:06: [address] famotidine Yes 20mg Take 20 mg U nivers 20 mg 7-21 by mouth. ity of tablet 15:06: [address] Carbidopa No 1 tab, PO, Me [...] 00 Refill(s), Cent er per tablet Pharmacy: [facility] #[id number], 175.26, cm, 07/19/20 14:31:00 CDT, Height, 75.909, kg, 07/19/20 14:31:00 CDT, Weight carbidopa-l 2020-0 Yes 1 tab, PO, [facility] evodopa 7-12 TID, # 90 [facility] - (Sinemet) 00:00: tab, 3 Medica l 25-100 mg 00 Refill(s), Cent er per tablet Pharmacy: [facility] #[id number], 175.26, cm, 07/19/20 14:31:00 CDT, Height, 75.909, kg, 07/19/20 14:31:00 CDT, Weight carbidopa-l 2020-0 Yes 1 tab, PO, [facility] evodopa 7-12 TID, # 90 [facility] - (Sinemet) 00:00: tab, 3 Medica l 25-100 mg 00 Refill(s), Cent er per tablet Pharmacy: [facility] #[id number], 175.26, cm, 07/19/20 14:31:00 CDT, [...] mouth 2 ity of tablet 00:00: (two) [place] 00 times Medical daily. Branch furosemide 2020-0 Yes 80mg Take 80 mg U nivers 80 mg 6-18 by mouth 2 ity of tablet 00:00: (two) [place] 00 times Medical daily. Branch furosemide 2020-0 Yes 80mg Take 80 mg U nivers 80 mg 6-18 by mouth 2 ity of tablet 00:00: (two) [place] 00 times Medical daily. Branch furosemide 2020-0 Yes 80mg Take 80 mg U nivers 80 mg 6-18 by mouth 2 ity of tablet 00:00: (two) [place] 00 times Medical daily. Branch furosemide 2020-0 [...] # 60 l Levodopa 21:52: tab, 3 [place] 100 MG Oral 00 Refill(s), Tablet Pharmacy: [Sinemet [facility] 25-100] [facility] #[id number], 175.26, cm, 07/19/20 14:31:00 [...] (two) Medical times Branch daily. Eliquis 5 2021-0 Yes 5mg Q.5D Take [address] MG tablet 6-11 by mouth 2 Luke s - 00:00: (two) Medical 00 times Center daily. Eliquis 5 2021-0 Yes 5mg Q.5D Take [address] [facility] MG tablet 6-11 by mouth 2 Luke s - 00:00: (two) Medical 00 times Center daily. Eliquis 5 2021-0 Yes 5mg Q.5D Take [address] [facility] MG tablet 6-11 by mouth 2 Luke s - 00:00: (two) Medical 00 times Center daily. ELIQUIS 5 2021-0 Yes 5mg Take 5 mg Uni vers mg tablet 6-11 by mouth 2 ity of 00:00: (two) [place] 00 times Medical daily. Branch ELIQUIS 5 [...] by mouth 2 ity of 00:00: (two) [place] 00 times Medical daily. Branch ELIQUIS 5 2020-0 Yes 5mg Take 5 mg Uni vers mg tablet 6-11 by mouth 2 ity of 00:00: (two) [place] 00 times Medical daily. Branch ELIQUIS 5 2020-0 Yes 5mg Take 5 mg Uni vers mg tablet 6-11 by mouth 2 ity of 00:00: (two) [place] 00 times Medical daily. Bri Sotalol Yes 80 mg = 1 Memor [...] day, # 14 tab, 0 Refill(s), Pharmacy: [facility] #[id number] bisacodyl 2018-02 Yes 10 mg = 1 Mem oria 10 mg 1-24 supp, AK, l rectal 15:04: Daily, PRN Lilly nn suppository 00 Constipati on, # 10 supp, 0 Refill(s), Pharmacy: [facility] #[id number] Docusate 2018-02 Yes 100 mg = 1 Mem oria Sodium 100 1-24 cap, PO, l MG Oral 15:04: BID, # 60 Lilly nn Capsule 00 cap, 0 [Colace] Refill(s), Pharmacy: [facility] #[id number] bisacodyl 5 2018-02 Yes 10 mg = 2 M emoria mg oral 1-24 tab, PO, l enteric 15:04: Daily, PRN Herm ayush coated 00 Constipati tablet on, X 10 day, # 20 tab, 0 Refill(s), Pharmacy: [facility] #[id number] POLYETHYLEN 2018-02 Yes 17 gm, PO, Memoria E GLYCOL 1-24 Daily, PRN l 3350 142 15:04: Constipati Her pinon MG/ML Oral 00 on, # 255 Solution gm, 0 [Miralax] Refill(s), Pharmacy: [facility] #[id number] Lactulose 2018-02 No Notes: Memori a 667 MG/ML 1-24 (Same l Oral 01:11: as:Chronul Philip Solution 00 ac) Lactulose 2018-02 No Notes: Memori a 667 MG/ML -23 (Same l Oral 14:13: as:Chronul [place] Solution 00 ac) Dulcolax 2018-02 No Notes: Memoria Laxative -23 (Same As: l 12:41: Dulcolax, Philip 00 [...] Nausea & Vomiting, Start date: 01/14/19 18:40:00 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, Duration: 30 day, Stop date: 02/13/19 18:39:00 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 Dulcolax 2018-02 No Notes: Memoria Laxative - (Same As: l 16:12: Dulcolax, [place] 00 Bisco-Lax) Levaquin 2018-02 No Notes: Do [...] as: l / 20:49: Duoneb) Ipratropium 00 [place] 0.167 MG/ML Inhalant Solution Docusate 2018-02 No 100 mg = 1 Mem oria Sodium 100 1-18 cap, PO, l MG Oral 16:51: BID, 0 [place] Capsule 00 Refill(s) Famotidine 2018-02 Yes 20 [...] n 1-16 (Same l 07:00: as:Levaqui Philip n) Docusate 2018-02 No Notes: Memoria Sodium 100 1-15 (Same as: l MG Oral 23:00: Colace) [place] Capsule 00 (Do Not Crush) Acetaminoph 2018-02 No Notes: Do M emoria en 325 MG / 1-15 not exceed l Hydrocodone 19:50: 4gm/day of [place] Bitartrate 00 acetaminop 10 MG Oral hen. 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, 0 Streptococc 2018-02 No Notes: Pepe micki us 1-15 Shake well l pneumoniae 09:35: prior to Her pinon serotype 1 51 use (Same capsular as: antigen Prevnar diphtheria 13) [id number] protein conjugate vaccine / Streptococc us pneumoniae serotype 14 capsular antigen diphtheria [id number] protein conjugate vaccine / Streptococc us pneumoniae [...] -15 (Same as: l / 09:00: Duoneb) [place] Ipratropium 00 [place] 0.167 MG/ML Inhalant Solution Ondansetron 2018-02 No [...] emoria -15 Rate: 60 l 08:33: ml/hr, [place] 00 Infuse over: 16.7 hr, Route: IV, Dosing Weight 74.2 kg, Total Volume: 1,000, Start date: 01/10/19 2:33:00 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, Duration: 1 doses or times, Stop date: 01/10/19 19:14:00 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, 1.91, m2, 0 Morphine 2018-02 No Notes: Memoria 1-15 (Same l 07:20: as:MORPhin Philip 00 e Sulfate) Zofran 2018-02 No Notes: Memoria 1-15 (Same as: l 07:20: Zofran) [place] 00 MEDICATION WASTE Product Size: 4 mg [...] Chloride 1-15 2,000 l 0.9% 04:20: ml/hr, [place] (Bolus) IV 00 Infuse Over: 0.5 hr, Route: IV, 1,000, Drug form: INJ, ONCE, Priority: STAT, Dosing Weight 74.2 kg, Start date: 01/09/19 22:20:00 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, Stop date: 01/09/19 22:20:00 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 n 1.1 % 00 of scalp [place] dental teeth with cream cream and spit [...] 15:50:00 147 mm[Hg] Univer sity of pressure [place] [facility] Diastolic blood 2020-12-01 15:50:00 71 mm[Hg] Unive rsity of pressure [place] [facility] Respiratory rate 2020-12-01 15:50:00 18 /min Univ ersity of [place] [facility] Oxygen saturation in 2020-12-01 15:50:00 100 /min University of Arterial blood by [place] [employer] mendez Pulse oximetry Branch Body temperature 2020-12-01 15:45:00 36.22 Jessica Univ ers[facility] [place] [facility] Heart rate 2020-12-01 13:51:00 68 /min [facility] [place] [facility] Body height 2020-11-18 14:58:00 175.3 cm [facility] [place] [facility] Body weight 2020-11-18 14:58:00 76.2 kg [facility] [place] [facility] BMI 2020-11-18 14:58:00 24.80 kg/m2 [facility] [place] [facility] Systolic blood 2020-12-01 15:50:00 147 mm[Hg] Univer sity of pressure [place] [facility] Diastolic blood 2020-12-01 15:50:00 71 mm[Hg] Unive rsity of pressure [place] [facility] Respiratory rate 2020-12-01 15:50:00 18 /min Univ ersity of [place] [facility] Oxygen saturation in 2020-12-01 15:50:00 100 /min University of Arterial blood by [place] [employer] mendez Pulse oximetry Branch Body temperature 2020-12-01 15:45:00 36.22 Jessica [facility] [place] [facility] Heart rate 2020-12-01 13:51:00 68 /min [facility] [place] [facility] Body height 2020-11-18 14:58:00 175.3 cm [facility] [place] [facility] Body weight 2020-11-18 14:58:00 76.2 kg [facility] [place] [facility] BMI 2020-11-18 14:58:00 24.80 kg/m2 [facility] [place] [facility] HEIGHT 2020-09-28 12:51:00 175.3 cm WEIGHT 2020-09-28 12:51:00 74.844 kg WEIGHT 2020-09-28 06:00:00 74.9 kg WEIGHT 2020-09-27 06:00:00 72.5 kg HEIGHT 2020-09-26 03:52:00 175.3 cm WEIGHT 2020-09-26 03:52:00 75 kg Diastolic blood 2020-09-15 19:30:00 75 mm[Hg] Unive rsity of pressure [place] [facility] Heart rate 2020-09-15 19:30:00 59 /min [facility] [place] [facility] Oxygen saturation in 2020-09-15 19:30:00 98 /min University of Arterial blood by [facility] Pulse oximetry Branch Systolic blood 2020-09-15 19:30:00 146 mm[Hg] Univer sity of pressure [place] [facility] Respiratory rate 2020-09-15 19:21:00 24 /min Univ ersity [facility] [place] [facility] Body temperature 2020-09-15 19:15:00 36.17 Jessica [facility] [place] [facility] Body height 2020-09-06 18:10:00 175.3 cm [facility] [place] [facility] Body weight 2020-09-06 18:10:00 76.3 kg [facility] [place] [facility] BMI 2020-09-06 18:10:00 24.83 kg/m2 [facility] [place] [facility] Diastolic blood 2020-09-15 19:30:00 75 mm[Hg] Unive rsity of pressure [place] [facility] Heart rate 2020-09-15 19:30:00 59 /min [facility] [place] [facility] Oxygen saturation in 2020-09-15 19:30:00 98 /min University of Arterial blood by [facility] Pulse oximetry Branch Systolic blood 2020-09-15 19:30:00 146 mm[Hg] Univer sity of [facility] Respiratory rate 2020-09-15 19:21:00 24 /min Univ ersity [facility] [place] [facility] Body temperature 2020-09-15 19:15:00 36.17 Jessica [facility] [place] [facility] Body height 2020-09-06 18:10:00 175.3 cm [facility] [place] [facility] Body weight 2020-09-06 18:10:00 76.3 kg [facility] [place] [facility] BMI 2020-09-06 18:10:00 24.83 kg/m2 [facility] [place] [facility] Systolic blood 2020-09-15 19:30:00 146 mm[Hg] Univer sity of pressure [place] [facility] Diastolic blood 2020-09-15 19:30:00 75 mm[Hg] Unive rsity of pressure [place] [facility] Heart rate 2020-09-15 19:30:00 59 /min [facility] [place] [facility] Oxygen saturation in 2020-09-15 19:30:00 98 /min University of Arterial blood by [place] [employer] mendez Pulse oximetry Branch Respiratory rate 2020-09-15 19:21:00 24 /min Univ [facility] [place] [facility] Body temperature 2020-09-15 19:15:00 36.17 Jessica [facility] [place] [facility] Body height 2020-09-06 18:10:00 175.3 cm [facility] [place] [facility] Body weight 2020-09-06 18:10:00 76.3 kg [facility] [place] [facility] BMI 2020-09-06 18:10:00 24.83 kg/m2 [facility] [place] [facility] Systolic blood 2020-09-15 19:30:00 146 mm[Hg] Univer sity of pressure [place] [facility] Diastolic blood 2020-09-15 19:30:00 75 mm[Hg] Unive rsity of pressure [place] [facility] Heart rate 2020-09-15 19:30:00 59 /min [facility] [place] [facility] Oxygen saturation in 2020-09-15 19:30:00 98 /min University of Arterial blood by [place] [employer] mendez Pulse oximetry Branch Respiratory rate 2020-09-15 19:21:00 24 /min Univ [facility] [place] [facility] Body temperature 2020-09-15 19:15:00 36.17 Jessica [facility] Body height 2020-09-06 18:10:00 175.3 cm [facility] Body weight 2020-09-06 18:10:00 76.3 kg [facility] BMI 2020-09-06 18:10:00 24.83 kg/m2 [facility] Systolic blood 2021-03-24 21:29:38 101 [...] Systolic (mm Hg) 2020-12-07 14:30:00 Pepe rial [place] Diastolic (mm Hg) 2020-12-07 14:30:00 [facility] orial [place] Heart Rate 2020-12-07 14:30:00 [facility] [place] Respitory Rate 2020-12-07 14:30:00 Memori [facility] [place] Systolic blood 2020-09-29 11:17:00 132 mm[Hg] [facility] Diastolic blood 2020-09-29 11:17:00 61 mm[Hg] [facility] S t [facility] Heart rate 2020-09-29 11:17:00 78 /min [facility] Body temperature 2020-09-29 11:17:00 36.44 Jessica [facility] Respiratory rate 2020-09-29 11:17:00 20 /min [facility] Oxygen saturation in 2020-09-29 11:17:00 97 /min [facility] Arterial blood by Medical Ce nter Pulse oximetry Body height 2020-09-28 12:51:00 175.3 cm [facility] Body weight 2020-09-28 12:51:00 74.844 kg [facility] BMI 2020-09-28 12:51:00 24.37 kg/m2 [facility] Systolic (mm Hg) 2020-09-06 19:00:00 Pepe rial [place] Diastolic (mm Hg) 2020-09-06 19:00:00 Mem orial [place] Heart Rate 2020-09-06 19:00:00 [facility] [place] Respitory Rate 2020-09-06 19:00:00 [facility] [place] Systolic (mm Hg) 2020-08-09 20:36:00 Pepe rial [place] Diastolic (mm Hg) 2020-08-09 20:36:00 Mem orial [place] Heart Rate 2020-08-09 20:36:00 [facility] [place] Respitory Rate 2020-08-09 20:36:00 Memori al [place] Systolic (mm Hg) 2020-07-19 19:31:00 Pepe rial [place] Diastolic (mm Hg) 2020-07-19 19:31:00 Mem orial [place] Heart Rate 2020-07-19 19:31:00 [facility] [place] Respitory Rate 2020-07-19 19:31:00 Memori al [place] Height 2020-07-19 19:31:00 175.26 cm [facility] Weight 2020-07-19 19:31:00 [facility] BMI Calculated 2020-07-19 19:31:00 Memori al [place] Temperature Oral (F) 2019-01-19 21:26:00 97.6 F [facility] [place] Heart Rate 2019-01-19 21:26:00 [facility] [place] Respitory Rate 2019-01-19 21:26:00 [facility] [place] Systolic (mm Hg) 2019-01-19 21:26:00 Pepe rial [place] Diastolic (mm Hg) 2019-01-19 21:26:00 Mem orial [place] Temperature Oral (F) 2019-01-19 17:23:00 97.9 F [facility] [place] Heart Rate 2019-01-19 17:23:00 [facility] [place] Respitory Rate 2019-01-19 17:23:00 Memori al [place] Systolic (mm Hg) 2019-01-19 17:23:00 Pepe rial [place] Diastolic (mm Hg) 2019-01-19 17:23:00 Mem orial [place] Temperature Oral (F) 2019-01-19 13:47:00 97.6 F [facility] [place] Heart Rate 2019-01-19 13:47:00 [facility] [place] Respitory Rate 2019-01-19 13:47:00 Ada velázquez [place] Systolic (mm Hg) 2019-01-19 13:47:00 Pepe bejarano [place] Diastolic (mm Hg) 2019-01-19 13:47:00 Eugenia hammondal [place] Height 2019-01-10 12:17:00 170.18 cm [facility] Weight 2019-01-10 03:42:00 [facility] [place] Procedures Procedure Date / Time Performing Source [...] Britany Diego MD 10:34:00 Results CBC 2021-03-24 Demarcus Britany Blackwell 10:34:00 MANUAL DIFFERENTIAL 2021-03-24 Britany Diego MD 10:34:00 SERUM CREATININE 2021-03-24 Britany Diego MD 10:34:00 .GLOMERULAR FILTRATION RATE 2021-03-24 Britany Diego MD 10:34:00 ANION GAP 2021-03-24 Britany Diego MD 10:34:00 COVID-19 (SARS-COV-2) 2021-03-23 Sondra Schmidt MD PCR-ASYMPTOMATIC [facility] 22:42:00 ALBUMIN LEVEL 2021-03-23 Britany Diego MD 11:21:00 [...] SERUM CREATININE 2021-03-23 Britany Diego MD 11:21:00 .GLOMERULAR FILTRATION RATE 2021-03-23 Britany Diego MD 11:21:00 ANION GAP 2021-03-23 Britany Diego MD 11:21:00 COMPLETE BLOOD COUNT W/ 2021-03-23 Britany Diego MD Arya rson DIFFERENTIAL 11:21:00 SODIUM LEVEL 2021-03-23 Britany [...] 11:21:00 FRACTIONATED BILIRUBIN 2021-03-23 Britany Diego MD 11:21:00 COMPLETE BLOOD COUNT W/ 2021-03-22 Britany Diego MD rson DIFFERENTIAL 10:30:00 SODIUM LEVEL 2021-03-22 Britany [...] 10:30:00 FRACTIONATED BILIRUBIN 2021-03-22 Britany Diego MD 10:30:00 ALBUMIN LEVEL 2021-03-22 Britany Diego MD [...] Willis son 10:58:00 ALBUMIN LEVEL 2021-03-20 Britany Diego MD 10:58:00 CALCIUM LEVEL TOTAL 2021-03-20 Britany Diego MD 10:58:00 MAGNESIUM LEVEL 2021-03-20 Britany Diego MD 10:58:00 ALANINE AMINOTRANSFERASE 2021-03-20 Britany Diego MD And erson 10:58:00 ASPARTATE AMINOTRANSFERASE 2021-03-20 Britany Diego MD nderson 10:58:00 ALKALINE PHOSPHATASE 2021-03-20 Britany Diego MD 10:58:00 Results CBC 2021-03-20 Britany [...] Diego MD 11:09:00 ALANINE AMINOTRANSFERASE 2021-03-19 Britany Diego MD And erson 11:09:00 ASPARTATE AMINOTRANSFERASE 2021-03-19 [...] MD 10:21:00 ALANINE AMINOTRANSFERASE 2021-03-15 Britany Diego MD And erson 10:21:00 ASPARTATE AMINOTRANSFERASE 2021-03-15 Britany Diego MD nderson 10:21:00 ALKALINE PHOSPHATASE 2021-03-15 Britany Diego MD Andbrittney n 10:21:00 Results CBC 2021-03-15 Demarcus Britany Blackwell 10:21:00 MANUAL DIFFERENTIAL 2021-03-15 Britany Diego MD 10:21:00 SERUM CREATININE 2021-03-15 Britany Diego MD 10:21:00 .GLOMERULAR FILTRATION RATE 2021-03-15 Britany Diego MD 10:21:00 ANION GAP 2021-03-15 Britany Diego MD 10:21:00 ALBUMIN LEVEL 2021-03-14 Britany Diego MD 11:22:00 CALCIUM LEVEL TOTAL 2021-03-14 Britany Diego MD 11:22:00 MAGNESIUM LEVEL 2021-03-14 Britany Diego MD 11:22:00 ALANINE AMINOTRANSFERASE 2021-03-14 Britany Diego MD And erson 11:22:00 ASPARTATE AMINOTRANSFERASE 2021-03-14 Britany Diego MD 11:22:00 ALKALINE PHOSPHATASE 2021-03-14 Britany Diego MD 11:22:00 Results CBC 2021-03-14 Britany Diego MD 11:22:00 MANUAL DIFFERENTIAL 2021-03-14 Britany Diego MD 11:22:00 SERUM CREATININE 2021-03-14 Britany Diego MD 11:22:00 .GLOMERULAR FILTRATION RATE 2021-03-14 Britany Diego MD 11:22:00 ANION GAP 2021-03-14 Britany Diego MD 11:22:00 COMPLETE BLOOD COUNT W/ 2021-03-14 Britany Diego MD Arya rson DIFFERENTIAL 11:22:00 SODIUM LEVEL 2021-03-14 Britany Diego MD 11:22:00 POTASSIUM LEVEL 2021-03-14 Britany Diego MD 11:22:00 CHLORIDE LEVEL 2021-03-14 Britany Diego MD 11:22:00 CARBON DIOXIDE LEVEL 2021-03-14 Demarcus Britany Medina n 11:22:00 BLOOD UREA NITROGEN 2021-03-14 Demarcus Britany Blackwell 11:22:00 SERUM CREATININE 2021-03-14 Demarcus Britany La Blackwell 11:22:00 GLUCOSE, RANDOM 2021-03-14 Demarcus Britany La [place] 11:22:00 LACTATE DEHYDROGENASE 2021-03-14 Britany Diego MD on 11:22:00 URIC ACID 2021-03-14 Demarcus Britany La [place] 11:22:00 PHOSPHORUS LEVEL 2021-03-14 Demarcus Britany La [place] 11:22:00 FRACTIONATED BILIRUBIN 2021-03-14 Britany Diego MD son 11:22:00 COMPLETE BLOOD COUNT W/ 2021-03-13 Britany Diego MD rson DIFFERENTIAL 10:53:00 SODIUM LEVEL 2021-03-13 Britany Diego MD 10:53:00 POTASSIUM LEVEL 2021-03-13 Demarcus Britany La Blackwell 10:53:00 CHLORIDE LEVEL 2021-03-13 Demarcus Britany La [place] 10:53:00 CARBON DIOXIDE LEVEL 2021-03-13 Britany Diego MD 10:53:00 BLOOD UREA NITROGEN 2021-03-13 Demarcus Britany La [place] 10:53:00 SERUM CREATININE 2021-03-13 Britany Diego MD [...] on 14:28:00 URINALYSIS WITH MICROSCOPIC 2021-03-12 Patrick Israel MD IF INDICATED 14:28:00 COMPLETE BLOOD COUNT W/ 2021-03-12 Britany Diego MD rson DIFFERENTIAL 08:16:00 SODIUM LEVEL 2021-03-12 Britany Diego MD 08:16:00 POTASSIUM LEVEL 2021-03-12 Britany Diego MD 08:16:00 CHLORIDE LEVEL 2021-03-12 Britany Diego MD 08:16:00 CARBON DIOXIDE LEVEL 2021-03-12 Briatny Diego MD 08:16:00 BLOOD UREA NITROGEN 2021-03-12 [...] 08:16:00 CALCIUM LEVEL TOTAL 2021-03-12 Demarcus Britany Blacwkell 08:16:00 MAGNESIUM LEVEL 2021-03-12 Demarcus Britany La Blackwell 08:16:00 ALANINE AMINOTRANSFERASE 2021-03-12 Britany Diego MD And erson 08:16:00 ASPARTATE AMINOTRANSFERASE 2021-03-12 Demarcus Britany La Fay nderson 08:16:00 ALKALINE PHOSPHATASE 2021-03-12 Demarcus Britany La Medina n 08:16:00 Results CBC 2021-03-12 Demarcus Britany La Blackwell 08:16:00 MANUAL DIFFERENTIAL 2021-03-12 Deamrcus Britany Blackwell 08:16:00 SERUM CREATININE 2021-03-12 Demarcus [...] Diego MD 10:25:00 CHLORIDE LEVEL 2021-03-08 Britany Diego MD 10:25:00 CARBON DIOXIDE LEVEL 2021-03-08 Britany [...] Britany Diego MD 10:02:00 CHLORIDE LEVEL 2021-03-07 Briatny Diego MD 10:02:00 CARBON DIOXIDE LEVEL 2021-03-07 [...] MD on 12:30:00 URIC ACID 2021-03-05 Britany Diego MD 12:30:00 PHOSPHORUS LEVEL 2021-03-05 Britany Diego MD 12:30:00 FRACTIONATED BILIRUBIN 2021-03-05 Britany Digeo MD Willis son 12:30:00 ALBUMIN LEVEL 2021-03-05 [...] MD n 10:35:00 BLOOD UREA NITROGEN 2021-03-04Britany Fontanze MD 10:35:00 SERUM CREATININE 2021-03-04 Britany Diego [...] POTASSIUM LEVEL 2021-03-03 Britany Diego MD 23:11:00 AK DIAGNOSTIC LUMBAR SPINAL 2021-03-03 Britany Diego MD [...] SMEAR 2021-03-03 Britany Diego MD 19:41:00 CYTOLOGY NON-ACTIMIZE ARCHITECT 2021-03-03 Britany Diego MD INTERPRETATION 19:28:00 Results [...] Britany Diego MD 00:56:00 URINE CULTURE 2021-02-28 Briatny Diego MD 19:23:00 URINALYSIS WITH MICROSCOPIC 2021-02-28 [...] MD on 12:22:00 URIC ACID 2021-02-27 Britany Digeo MD 12:22:00 PHOSPHORUS LEVEL 2021-02-27 Britany Diego [...] EKG, 12-LEAD (PORTABLE) 2021-02-26 Arielle [facility] 00:00:00 TROPONIN T 2021-02-25 Willem English MD 18:21:00 COMPLETE BLOOD COUNT W/ 2021-02-25 Britany Diego MD Arya rson DIFFERENTIAL 10:07:00 SODIUM LEVEL 2021-02-25 Britany Diego MD 10:07:00 POTASSIUM LEVEL 2021-02-25 Britany Diego MD 10:07:00 CHLORIDE LEVEL 2021-02-25 Britany Diego MD 10:07:00 CARBON DIOXIDE LEVEL 2021-02-25 Britany [...] Diego MD 10:07:00 .GLOMERULAR FILTRATION RATE 2021-02-25 Briatny Diego MD 10:07:00 ANION GAP 2021-02-25 Britany [...] MD rson DIFFERENTIAL 09:45:00 SODIUM LEVEL 2021-02-24 Britayn Diego MD 09:45:00 POTASSIUM LEVEL 2021-02-24 Britany [...] 23:20:00 HEPATITIS B CORE ANTIBODY 2021-02-23 Willem English MD And erson 23:20:00 HEPATITIS B SURFACE [...] n 23:20:00 TMP INTERPRETATION ANTIBODY 2021-02-23 Britany iDego MD SCREEN NEGATIVE 23:20:00 TMP HIV 1/2 AG&AB PATH INTERP 2021-02-23 Britany Diego 23:20:00 TMP HCVAB INTERP 2021-02-23 Britany Diego MD 23:20:00 TMP RPR PATH INTERP 2021-02-23 Britany Diego MD Blackwell 23:20:00 COVID-19 (SARS-COV-2) 2021-02-23 Willem English MD Anddeandreo n ASYMPTOMATIC-LT 22:29:00 PATHOLOGY OUTSIDE 2021-02-04 Soledad Kendrick MD INTERPRETATION 00:00:00 PHACOEMULSIFICATION OF 2020-12-01 Robin Bradley [facility] CATARACT WITH INTRAOCULAR 15:03:00 Medica l Branch LENS IMPLANT ASSIGNMENT OF BENEFITS 2020-11-29 Doctor Unassigned, [facility] 20:50:21 [facility] POCT-GLUCOSE METER 2020-09-29 Hasan, Zaheer Ali [facility] - 11:24:00 [facility] POCT-GLUCOSE METER 2020-09-29 Hasan, Zaheer Ali [facility] - 07:37:00 [facility] BASIC METABOLIC PANEL (7) 2020-09-29 Jessica, Ramesh [facility] - 05:02:00 [facility] CBC (HEMOGRAM ONLY) 2020-09-29 Jessica, Ramesh [facility] - 05:02:00 [facility] MAGNESIUM 2020-09-29 Jessica, Ramesh [facility] - 05:02:00 [facility] POCT-GLUCOSE METER 2020-09-28 Hasan, Zaheer Ali [facility] - 22:29:00 [facility] US ABDOMEN LIMITED 2020-09-[address] [facility] - 15:36:00 [facility] APTT 2020-09-28 Jessica, Ramesh [facility] - 10:58:00 [facility] POCT-GLUCOSE METER 2020-09-28 Hasan, Zaheer Ali [facility] - 07:47:00 [facility] BASIC METABOLIC PANEL (7) 2020-09-28 Jessica, Ramesh [facility] - 06:37:00 [facility] CBC (HEMOGRAM ONLY) 2020-09-28 Jessica, Ramesh [facility] - 06:37:00 [facility] MAGNESIUM 2020-09-28 Jessica, Ramesh [facility] - 06:37:00 [facility] APTT 2020-09-[address] [facility] - 00:27:00 [facility] POCT-GLUCOSE METER 2020-09-27 Juanyolimpia Zaheer Smith [facility] - 16:39:00 [facility] POCT-GLUCOSE METER 2020-09-27 Juanyolimpia Zaheer Smith [facility] - 11:16:00 [facility] 2D ECHO W/ DOPPLER 2020-09-[address] [facility] - (CW/PW/COLOR) 09:45:35 [facility] POCT-GLUCOSE METER 2020-09-27 Diana Zaheer Smith [facility] - 08:43:00 [facility] SARS-COV2/RT-PCR (SLHS & REF 2020-09-27 Jessica, [facility] LAB[facility] 04:13:00 [facility] BASIC METABOLIC PANEL (7) 2020-09-27 Jessica, [facility] - 04:13:00 [facility] CBC (HEMOGRAM ONLY) 2020-09-[address] [facility] - 04:13:00 [facility] MAGNESIUM 2020-09-27 [facility], [facility] - 04:13:00 [facility] IRON, TIBC, % SAT. (WITHOUT 2020-09-27 Diana Zaheer Smith [facility] - FERRITIN) 04:13:00 [facility] FERRITIN 2020-09-27 Diana Zaheer Smith [facility] - 04:13:00 [facility] VITAMIN B12 AND FOLATE 2020-09-27 Diana Zaheer [facility] - 04:13:00 [facility] POCT-GLUCOSE METER 2020-09-26 Diana Zaheer Smith [facility] - 23:06:00 [facility] APTT 2020-09-[address] [facility] - 12:26:00 [facility] ABORH, MANUAL 2020-09-[address] [facility] - 06:46:00 [facility] XR CHEST 1 VIEW PORTABLE / 2020-09-26 [facility]or[facility]arrubias [facility] 05:40:00 [facility] CBC W/PLT COUNT & AUTO 2020-09-[address] [facility] - DIFFERENTIAL 04:29:00 [facility] COMPREHENSIVE METABOLIC PANEL 2020-09-[address] [facility] - 04:29:00 [facility] HEMOGLOBIN A1C 2020-09-[facility] 04:29[facility]00 [facility] HIGH SENSITIVITY TROPONIN I 2020-09-[address] [facility] 04:29:00 [facility] LIPID PANEL 2020-09-[facility] 04:29:00 [facility] CBC W/PLT COUNT & AUTO 2020-09-[address] [facility] - DIFFERENTIAL 04:29:00 [facility] B-TYPE NATRIURETIC FACTOR 2020-09-26 [facility] 04:29:00 [facility] TYPE AND SCREEN, AUTOMATED 2020-09-26 [facility] 04:29[facility]00 [facility] PROTHROMBIN TIME/INR 2020-09-[facility] - 04:28:00 [facility] APTT 2020-09-[facility] - 04:28:00 [facility] ECG 12-LEAD 2020-09-26 Unknown, Hl7 Doctor VALDO [facility] - 03:44:53 [facility] ECG 12-LEAD 2020-09-[address] [facility] - 03:44:53 [facility] PHACOEMULSIFICATION OF 2020-09-15 Robin Bradley [facility] CATARACT WITH INTRAOCULAR 18:32:00 Medica l Branch LENS IMPLANT CBC WITH DIFF 2020-09-13 Robin Bradley [facility] 19:46:00 Medical Branch COVID-19 (ID NOW RAPID 2020-09-13 Robin Bradley [facility] TESTING) 19:40:00 Medical Branch ASSIGNMENT OF BENEFITS 2020-09-13 Doctor Unassigned, [facility] 19:32:02 [facility] Plan of Care Planned Activity [...] Department ID 2021-03-28 Outpatient [place] MCP[facility] [id number] 10:33:59 PROVIDER Darron romero 2021-03-23 Outpatient [facility] [id number] 12:50:51 [id number] [facility]icio [facility] 2021-02-24 Outpatient [place] HERCULES MDA [id number] 11:43:32 PROVIDER Darron romero 2020-12-27 Outpatient KIRK [facility] OPH [id number] Univers 19:23:53 ROBIN [facility] 2020-12-27 Outpatient Angi BRADLEY [facility] OPH [id number] Univers 09:11:23 ROBIN [facility] 2020-09-26 Inpatient ER [facility] Cardiology [id number] [facility] 03:36:00 FRANKY MANDUJANO 2021-02-23 2021-03-24 Inpatient UR SCHMIDT, MDA Lymphoma/My [id number] 13:41:00 19:21:00 Kiran romero 2021-03-24 2021-03-24 Inpatient EL SCHMIDT, MDA MDA [id number] 10:54:08 11:20:43 SONDRA romero 2021-03-22 2021-03-22 Inpatient SHEELA DIEGO MDA MDA [id number] 16:47:23 17:01:06 MAY Darron romero 2021-03-20 2021-03-20 Inpatient SHEELA DELATORRE MDA MDA [id number] 18:48:13 19:17:20 BROOKS romero 2021-03-16 2021-03-16 Inpatient SHEELA DELATORRE MDA MDA [id number] 12:06:37 12:30:56 BROOKS romero 2021-03-09 2021-03-09 Ambulatory nullFlavo MNA [id number] Memoria 20:15:00 20:15:00 [place]Reg [place] Neurology 05 [place] 2021-03-07 2021-03-07 Outpatient SHEELA LEGER MDA MDA [id number] 06:00:00 23:59:00 MYA romero 2021-03-04 2021-03-04 Inpatient SHEELA LEGER MDA MDA [id number] 11:44:00 11:44:02 MYA romero 2021-03-03 2021-03-03 Inpatient SHEELA DIEGO MDA MDA [id number] 13:01:47 15:50:52 MAY Darron romero 2021-03-02 2021-03-02 Inpatient SHEELA LEGER MDA MDA [id number] 13:09:01 13:09:03 MYA romero 2021-03-02 2021-03-02 Inpatient SHEELA DIEGO MDA MDA [id number] 07:37:26 11:28:07 MAY Darron romero 2021-03-01 2021-03-01 Inpatient SHEELA ENGLISH MDA MDA [id number] 05:48:01 06:04:05 [facility] Willis so n 2021-02-28 2021-02-28 Inpatient SHEELA ENGLISH MDA [facility] [id number] 13:09:08 13:14:44 [facility] Willis so n 2020-12-07 2020-12-08 Outpatient nullFlavo MNA [id number] Memoria 14:30:00 04:59:59 [facility] 2020-12-07 2020-12-07 Ambulatory nullFlavo MNA [id number] Memoria 15:45:00 15:45:00 [facility]-Reg r [facility] 03 [facility] 2020-12-01 2020-12-01 [facility] [id number] Univers 08:45:00 11:16:00 Encounter Robin Langford [id number] ity [id number] [id number] [facility] 020 Branch 2020-12-01 2020-12-01 Surgery [facility] [id number] Univers 10:08:00 10:50:00 Robin Langford [id number] [id number] [id number] [facility] 020 Branch 2020-11-29 2020-11-29 Laboratory Only, Adc Test [facility] [id number]. [id number] Univers 15:49:32 16:04:32 Only Robin Bradley [id number] 0 [id number] [id number] [facility] 353 Branch 2020-11-29 2020-11-29 Outpatient R [facility] [id number] Univers 15:15:00 15:15:00 [id number] ity [facility] 2020-11-29 2020-11-29 Outpatient R [facility] [id number] Univers 15:15:00 15:15:00 ity of [facility] 2020-11-29 2020-11-29 Orders Doctor ASHLEY [id number] Univers 00:00:00 00:00:00 Only Unassigned, [place] [id number] ity of [place] [facility] [id number] [place]án as [id number] [place] [address] Branch 2020-11-09 2020-11-09 Outpatient R [facility] [id number] Univers 12:00:00 12:00:00 [id number] ity [facility] 2020-09-26 2020-09-29 [facility] Franky Kenyon [facility] [id number] [facility] 03:36:00 17:42:00 Encounter Zaheer Ortiz [facility] 2020-09-26 2020-09-26 Outpatient [facility] [id number] [facility] 00:00:00 23:59:00 Rosamaria e 2020-09-26 2020-09-26 Orders [facility] [id number] 00:00:00 00:00:00 Only [facility] 2020-09-26 2020-09-26 Travel [facility] [id number] [facility] 00:[facility]00 00:00:00 [facility] 2020-09-24 2020-09-24 Outpatient [facility] [id number] [facility] 00:[facility]00 00:[facility]:00 [facility] Zana [facility] 2020-09-15 2020-09-15 [facility] [id number] Univers 14:11:00 14:51:00 Robin Langford [id number] [id number] [id number] [place] [address] Branch 2020-09-15 2020-09-15 Surgery [facility] [id number] 14:11:00 14:51:00 [place] [id number] [place] [id number] Surgical [id number] [place] 020 2020-09-15 2020-09-15 [facility] [id number] Univers 12:25:00 14:50:00 Encounter Robin Fay Primitivo [id number] ity [id number] [id number] [facility] Branch 2020-09-15 2020-09-15 [facility] [id number] 12:25:00 14:50:00 Encounter Robin Sumeet Primitivo [id number] [place] [id number] Surgical [id number] [place] 071 2020-09-13 2020-09-13 Outpatient R [facility] [id number] Univers 15:15:00 15:15:00 [id number] ity of [facility] 2020-09-13 2020-09-13 [employer] Sharona Pretty Lab Main [facility] [id number] Univers 14:29:04 14:44:04 Visit Robin Bradley [id number] 0 ity of [id number] Profess[place] [id number] Ms dical [address] 2020-09-13 2020-09-13 [employer] Sharona Pretty [facility] [id number] 14:29:04 14:44:04 Visit Lab Main Primitivo [id number] [place] [id number] 2020-09-13 2020-09-13 Laboratory OnlySharona Test [facility] 1.2.840. 114 [id number] Univers 14:17:45 14:32:45 Only Kirk Robin Langford [id number] 0 [id number] [id number] [facility] [address] [place] 2020-09-13 2020-09-13 Laboratory Only, Adc [facility] [id number] 14:17:45 14:32:45 Only Test [place] [id number] [place] [id number] [place] [id number] 2020-09-13 2020-09-13 Outpatient Angi BRADLEY [facility] [id number] Univers 14:00:00 14:00:00 [facility] 2020-09-13 2020-09-13 Orders Doctor ASHLEY 1.2.840.114 [id number] Univers 00:00:00 00:00:00 Only Unassigned, [place] [id number] ity [place] [facility] 4.2.7.2.686 [facility] [id number] [facility] 009 [place] 2020-09-13 2020-09-13 Orders Doctor ASHLEY 1.2.840.114 [id number] 00:00:00 00:00:00 Only Unassigned, [place] [id number] [place] [facility] [id number] 2020-09-06 2020-09-07 Outpatient nullFlavo MNA [id number] [facility] 19:00:00 04:59:59 r Neurology 02 l Corwin [place] 2020-08-20 2020-08-20 Outpatient Angi BRADLEY [facility] [id number] Univers 15:45:00 15:45:00 ROBIN [facility] 2020-08-11 2020-08-11 Outpatient [facility] [id number] [facility] 2020-08-09 2020-08-10 Outpatient nullFlavo MNA [id number] [facility] 20:00:00 04:59:59 r Neurology 01 l Corwin [place]acios 2020-08-03 2020-08-03 Outpatient [facility] [id number] [facility] 2020-07-28 2020-07-28 Outpatient [facility] [id number] [facility] 2020-07-19 2020-07-20 Outpatient soledadFlavo [facility] [id number] [facility] 19:30:00 04:59:59 r Neurology 00 l [place] [facility] 2020-07-13 2020-07-13 [facility] [id number] [facility] 2020-07-05 2020-07-05 [facility] [id number] [facility] 2020-06-29 2020-06-29 [facility] [id number] [facility] 2020-06-25 2020-06-25 [facility] [id number] [facility] 2020-06-24 2020-06-24 [facility] [id number] [facility] 2019-01-10 2019-01-20 Inpatient Simba Yoder [id number] [facility] 03:18:46 00:08:00 r [facility] 00 l [place] Lilly nn 2019-01-10 2019-01-10 Inpatient E [facility] [...] electronically signed by Pathologist:Bryan Alvarado MD, PhD #[id number] Calcofluor Stain (test code = 658-5) No Fungi seen in direct smearT est performed by fluorescent stain methodology. GRABIEL (test code = GRABIEL) Cultures are held for 4 weeks before finalization. MD BlackwellAnion Fwg9861-03-02 12:40:23 Test Item Value Reference Range Interpretation Comments Anion Gap (test code 10 See_Comment [Autom ated message] The = 9965) system which ge nerated this result transmit valentina reference range : 4 - 14 mEq/L. The refe rence range was not used to interpret this result as normal/abnormal . MD BlackwellChloride Nlmth6503-56-04 12:40:22 Test Item Value Reference Range Interpretation Comments Chloride (test code = 103 See_Comment [Auto mated message] The 8390) system which ge nerated this result tra nsmitted reference range : 98 - 107 mEq/L. The refe rence range was not u sed to interpret this result as normal/abnormal . MD BlackwellSbabekgfTtedivbqp7277-11-07 12:40:21 Test Item Value Reference Range Interpretation Comments Potassium Lvl (test 3.8 See_Comment [Automa valentina message] The code = 6854) system which ge nerated this result tra nsmitted reference range : 3.5 - 5.1 mEq/L. The reference range was not u sed to interpret this result as normal/abnormal . MD BlackwellSodium Qjccj2291-07-45 12:40:20 Test Item Value Reference Range Interpretation Comments Sodium Lvl (test code 138 See_Comment [Auto mated message] The = 1584) system which ge nerated this result tra nsmitted reference range : 136 - 145 mEq/L. The refe rence range was not used to interpret this result as normal/abnormal . MD BlackwellFractionated Uqirnedcz7378-36-76 12:40:19 Test Item Value Reference Range Interpretation [...] 28 g/L. [Automate d message] The system [employer] generated this result transmitted ref erence range: [...] 0.0-0.9 code = 5095) MD BlackwellGlomerular Filtration Umbl2859-91-82 12:40:18 Test Item Value Reference Range Interpretation [...] GFR 15-295 Kid elidia failure <15 [Automa valentian message] The system [employer] generated this result tra nsmitted reference range [...] failure <15 [Automa valentina message] The system [employer] generated this result tra nsmitted reference range : >=60 mL/min/1.73 sq. m. The reference range was not used to interpret th is result as normal/abnormal . MD BlackwellUric Umyc9491-21-44 12:40:17 Test Item Value Reference Range Interpretation Comments Uric Acid (test code = 7955) 2.6 mg/dL 3.4-7.0 L Lab Interpretation (test code = Abnormal 85627-1) MD BlackwellMagnesium Abuur3095-69-07 12:40:15 Test Item Value Reference Range Interpretation Comments Magnesium (test code = 6359) 1.9 mg/dL 1.6-2.6 MD BlackwellGlucose, Dsvygz2335-16-87 12:40:14 Test Item Value Reference Range Interpretation Comments Glucose Random (test 95 mg/dL 70-199 Effecti ve 09/22/15, the code = 9360) glucose referen ce intervals have been updated based o n [place] [employer] marlene delines (Standards of M edical Care in Diabete s 2016. Diabetes Care 2 016; 39: S13-S22).Fastin g blood glucose:Normal: 70-99 mg/dLImpaired f asting glucose (increa sed risk for diabetes or pre-diabetes): 100-125 mg/dLDiabetes m ellitus: >/=126 mg/dL Ra ndom blood glucose:N ormal: 70-199 mg/dLNot e: Random glucose >100 mg /dL is associated with increased risk for diabetes MD BlackwellAlkaline Xenmobgqjsq5385-77-76 12:40:13 Test Item Value Reference Range Interpretation Comments Alk Phos (test code = 4768) 96 U/L 40-129 MD BlackwellPhosphorus Peygh4957-77-08 12:40:12 Test Item Value Reference Range Interpretation Comments Phosphorus (test code = 6817) 3.0 mg/dL 2.5-4.5 MD BlackwellAlanine Hkwnolnvkyesjwff2746-81-01 12:40:11 Test Item Value Reference Range Interpretation Comments ALT (test code = 5 U/L See_Comment [Automated message] The 5206) system which ge nerated this result transmit valentina reference range : <=41. The reference range was not used to interpr et this result as abbey l/abnormal. MD BlackwellLscpnqwcFPZ2604-49-93 12:40:10 Test Item Value Reference Range Interpretation Comments LDH (test code = 6111) 444 U/L 135-225 H Resul ts greater than 1651 U/L may no t be reliable due to matrix effect w ith extended diluti on as it exceeds the cane flume watcher s recommended l imit. Caution should be exercised when interpreting rojas ch values and done in conjunction wit clinical contex t. Lab Interpretation (test Abnormal code = 81229-0) MD Blackwell.Serum Jjelyprmjj0050-60-96 12:40:09 Test Item Value Reference Range Interpretation Comments Creatinine (test code = 5399) 0.60 mg/dL 0.67-1.17 L Lab Interpretation (test code = Abnormal 37936-0) MD BlackwellCalcium Gfrut9615-75-13 12:40:08 Test Item Value Reference Range Interpretation Comments Calcium Lvl (test code = 5258) 8.8 mg/dL 8.4-10.2 MD BlackwellJqkcdjmdUWX4304-46-64 12:40:07 Test Item Value Reference Range Interpretation Comments BUN (test code = 5055) 6 mg/dL 6-23 MD BlackwellAlbumin Cbuvz8867-26-72 12:40:06 Test Item Value Reference Range Interpretation Comments Albumin Lvl (test code = 2.7 See_Comment L [A utomated message] 9854) The system [employer] generated this result transmitted ref erence range: 3.5 - 5. 2 gm/dL. The refe rence range was not u sed to interpret this result as normal/abnor mal. Lab Interpretation (test Abnormal code = 39696-2) MD BlackwellAspartate Vtinhdbdtvfqggsq6101-43-73 12:40:05 Test Item Value Reference Range Interpretation Comments AST (test code = 23 U/L See_Comment [Automated message] The 5876) system which ge nerated this result transmit valentina reference range : <=40. The reference range was not used to interpr et this result as abbey l/abnormal. MD BlackwellCarbon Dioxide Ionia6529-13-90 12:40:04 Test Item Value Reference Range Interpretation Comments CO2 (test code = 25 See_Comment [Automated message] The 5227) system which ge nerated this result transmit valentina reference range : 22 - 29 mEq/L. The refe rence range was not used to interpret this result as normal/abnormal . MD BlackwellOwxfwjhrCvgqbpzrofxy5125-46-74 11:49:05 Test Item Value Reference Range Interpretation Comments Neutrophil % (test code = 64.2 % 42.0-66.0 12560-8) Lymphocyte % (test code = 19.8 % 24.0-44.0 L 737-7) Monocyte % (test code = 12.5 % 2.0-7.0 H 744-3) Eosinophil % (test code = 2.7 % 1.0-4.0 713-8) Basophil % (test code = 0.4 % 0.0-1.0 707-0) IGRE % (test code = 0.4 % 0.0-0.4 IGRE % c ount 57438-5) includes Metamyelocytes, Myelocytes, and Promyelocytes. Neutrophil Abs (test code 1.69 K/uL 1.70-7.30 L = 753-4) Lymphocyte Abs (test code 0.52 K/uL 1.00-4.80 L = 732-8) Monocyte Abs (test code = 0.33 K/uL 0.08-0.70 743-5) Eosinophil Abs (test code 0.07 K/uL 0.04-0.40 = 712-0) Basophil Abs (test code = 0.01 K/uL 0.00-0.10 705-4) IG Abs (test code = 0.01 K/uL 0.00-0.04 95216-7) Lab Interpretation (test Abnormal code = 55328-2) MD Blackwell.CVK3279-73-48 11:49:01 Test Item Value Reference Range Interpretation Comments WBC (test code = 2.6 K/uL 4.0-11.0 L 6690-2) RBC (test code = 789-8) 2.95 See_Comment L [Au tomated message] The system [employer] generated this result transmitted ref erence range: 4.50 - 6 .00 M/uL. The refer ence range was not u sed to interpret this result as normal/abnor mal. Hgb (test code = 718-7) 8.1 See_Comment L [Au tomated message] The system [employer] generated this result transmitted ref erence range: [...] See_Comment [Automate d message] 786-4) The system [employer] generated this result transmitted ref erence range: 31.0 - 3 6.0 gm/dL. The refe rence range was not u sed to interpret this result as normal/abnor mal. RDW-SD (test code = 50.9 fL 35.1-46.3 H 28911-9) RDW-CV (test code = 15.9 % 12.0-15.5 [...] cell differential. [Automated mess age] The system [employer] generated this result transmitted ref erence range: <=0.0. T he reference range was not used to int erpret this result as normal/abnormal . Lab Interpretation Abnormal (test code = 54878-1) MD BlackwellCOTREVORD-19 (SARS-CoV-2) PCR-Asymptomatic [id number] 07:20:38 Test Item Value Reference Range Interpretation Comments COVID19 (SARS Not Detected Not Detected CoV-2) Result (test code = ____[place] a 10483-6) qualitative reverse-transcr iptase polymerase winnie n reaction [...] patients provid ed by the manufacture r ([employer]) c an be reviewed at:https://www. fda.go v/media/744107/ downlo ad. A fact shee t for Health Care pro viders is provided by the cane flume watcher ([employer]) and can be reviewed at: https://www.fda .gov/m edia/675342/michael nload Results must be interpreted wit hin [...] were verified by the Microbiology Laboratory at [facility], CLIA Accreditation # : [id number] and CAP Accreditation # : [id number]. 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 (test code = 890-4) Negative ABSC MD BlackwellDrhvsublJYHXc1756-01-29 14:38:03 Test Item Value Reference Range Interpretation Comments ABORh. (test code = 882-1) B POS MD BlackwellClot Expiration Kayq5933-48-21 14:38:00 Test Item Value Reference Range Interpretation Comments T & S Expiration (test code = 03/25/2021 5318) MD BlackwellParaneoplastic Autoantibody Eval, [id number] 18:04:05 Test Item Value Reference Range Interpretation Comments Para Eval See Footnote No informative autoantibodies Interpretati were detected i n on, CSF theParaneoplast ic Evaluation. (test code = However, a nega tive result 64871-4) doesnot exclude neurological autoimmunity wi th or withoutassociat ed neoplasia. Sensitivity and specificity ofantibody test ing are enhanced by dain ting both serum andCSF. ANNA1 Negative See_Comment [Automated mes celestina] The [place] [employer] system which ge nerated this (test code = result transmit valentina reference 05957-3) range: <1:2 tit er. The reference range was not used to interpret th is result as normal/abnormal . Reflex Added None. -----ADDITIONAL [facility] INFORMATION---- (test code = This test was d eveloped and 45816-1) its performance characteristics determined by [facility] in a manner consistent with CLIArequirement s. This test has not been cl eared or approved bythe U.S. Food and Drug Administra tion. ANNA2 Negative See_Comment -----[facility]AL [facility]---- (test code = This test was d eveloped and 36052-6) its performance characteristics determined by [facility] in a manner consistent with CLIArequirement s. This test has not been cl eared or approved bythe U.S. Food and Drug Administra tion. [Automated mess age] The system which generated this result transmitted ref erence range: <1:2 titer. The reference range was not u sed to interpret this result as normal/abnormal . ANNA3 Negative See_Comment -----[facility]AL [facility] INFORMATION---- (test code = This test was d eveloped and 13551-7) its performance characteristics determined by [facility] in a manner consistent with CLIArequirement s. This test has not been cl eared or approved bythe U.S. Food and Drug Administra tion. [Automated mess age] The system which generated this result transmitted ref erence range: <1:2 titer. The reference range was not u sed to interpret this result as normal/abnormal . AGNA1 Negative See_Comment -----ADDITIONAL [facility]---- (test code = This test was d eveloped and 18603-4) its performance characteristics determined by [facility] in a manner consistent with CLIArequirement s. This test has not been cl eared or approved bythe U.S. Food and Drug Administra tion. [Automated [employer] age] The system which generated this result transmitted ref erence range: <1:2 titer. The reference range was not u sed to interpret this result as normal/abnormal . PCA2 Negative See_Comment -----ADDITIONAL [facility]---- (test code = This test was d eveloped and 26540-0) its performance characteristics determined by [facility] in a manner consistent with CLIArequirement s. This test has not been cl eared or approved bythe U.S. Food and Drug Administra tion. Test Performed by:[place] [id number]Lab Director: John Izaguirre M.D. Ph.D.; I A# [id number] [Automated [employer] age] The system which generated this result transmitted ref erence range: <1:2 titer. The reference range was not u sed to interpret this result as normal/abnormal . PCATR Negative See_Comment -----ADDITIONAL [facility]---- (test code = This test was d eveloped and 72695-1) its performance characteristics determined by [facility] in a manner consistent with CLIArequirement s. This test has not been cl eared or approved bythe U.S. Food and Drug Administra tion. [Automated [employer] age] The system which generated this result transmitted ref erence range: <1:2 titer. The reference range was not u sed to interpret this result as normal/abnormal . Amphip Ab Negative See_Comment -----ADDITIONAL [facility]---- (test code = This test was d eveloped and 51651-6) its performance characteristics determined by [facility] in a manner consistent with CLIArequirement s. This test has not been cl eared or approved bythe U.S. Food and Drug Administra tion. [Automated [employer] age] The system which generated this result transmitted ref erence range: <1:2 titer. The reference range was not u sed to interpret this result as normal/abnormal . CRMP-5-IgG Negative See_Comment -----ADDITIONAL [facility]---- (test code = This test was d eveloped and 05081-3) its performance characteristics determined by [facility] in a manner consistent with CLIArequirement s. This test has not been cl eared or approved bythe U.S. Food and Drug Administra tion. [Automated [employer] age] The system which generated this result transmitted ref erence range: <1:2 titer. The reference range was not u sed to interpret this result as normal/abnormal . KNOWLEDGE ARCHITECT-1 Ab Negative See_Comment -----ADDITIONAL [facility]---- (test code = This test was d eveloped and 86674-1) its performance characteristics determined by [facility] in a manner consistent with CLIArequirement s. This test has not been cl eared or approved bythe U.S. Food and Drug Administra tion. [Automated [employer] age] The system which generated this result transmitted ref erence range: <1:2 titer. The reference range was not u sed to interpret this result as normal/abnormal . MD BlackwellPathology Biopsy Uvmvqppoqxlflh1800-18-22 16:06:07 Test Item Value Reference Range Interpretation Comments Addendum 1 (test code = p2orhEEkOSAlbET2NzX 37) gTAStc1bcf2CzaUKtkT KxBAhttFJtwxPnlj20n IJ2kR37KZ1bWMZzVnB8 CWSsejK9Ris6XBRxQXT oxBXeR157x9mkf3zknl OwfPX4wDznMCMtoyjwO iY5SXnvYURxwmgoVPr0 WCssCXQfjIT8QEAvfIQ qQ7JdPKXoTT0lymd6SN D7WQblKWRjUaH2MHDqi OMoQMQngIlpRLddz973 STR8AbBlZYGaerRycJq ctT5oTiByXUXJhTRjK6 VuZXRpYyBzdHVkeSAoR shVWPjjm2bjz7EcSIQu JBtaxVt0EALnADO3fGK lXy2nEZ0IThGqFX8pBQ WsWVHcUW9fUZ8pwbQfS GxpbmVcbGluZSBUaGUg k2RoF9mwHWlvTPlqM90 ey9ebBNQsrGChupThvD 6rkWQxY8JdIxzyPGW3 Submitted Clinical History x4hseZUtSSQjf7bfECU (test code = 65164) mbGFuZzEwMzNcZnRuYm pcdWMxIHtccnRmMVxzc 3EyR9AdHoDjXVpqjjDr XGRlZmxhbmcxMDMzXGZ 0bmJqXHVjMVxkZWZmMH tjFg8yxMAcvAloPaZaG ICqt3iszbQCfnoceTr4 u6hlAMPeFkU5nAPxOLa kA7balsLpbACuFHWxNL q7kD84ZYDqkZ8voSMlS AhskwAgIoQ6GQppGINi CgS2PZFfkKFmADJfY7l yZWQwXGdyZWVuMFxibH AuYYL8kIjgb5V6fPDnm GVldHtcZjBcZnMyMiBO s3XxHPa5sExpE9GrGIW hUxS0vHGaFMHaYBujDL PaOXPbwcB5pT15WMarc dT2fLLue9Hnz24uf375 vK6wdIBqQOH4VLMaFXY wxVXmIECyALX5ANLpjX JmR6ftRPDnKU2hstxzZ SewREvrXPBbsFY8HQZa rUYcI9HfPFPwEOlgKVG iwqt6ZqNrHf3ecEYivQ hqUHzux5lwb3sszVYdD me2HEJaKrRkRlyuMByg u7Wbx1buSASjyd0aKWE 5rRWfeBhlr8O4wXWvJC NjqSNxjzIlKJRqPxW5U VucQO2tyg64GKCrWEM8 kw7mwFKenOhlotUolWF uVGfoE0QfIZMhd018VZ HiR4FgOZKuj5K7eqZqJ fWvIXVkkNU1vyW1VJTv GRl9sTGxmyW1hlNzzDM mP5grqA9cNVRrSM2gla lsl2qtZEviAFpkVVNpr QX6kdB2ATNtwDRkW7Fi eG8yNQUrWPemWWIkest 2VoClLj5suGKokQqtNF xzYmtwYWdlXHBnbmNvb nRccGduZGVjXHBsYWlu XHBsYWluXGYwXGZzMjR qnTfoiWiwrK6cEfOgHk ZjUZgoQI9sWGHrR4ycc IBuGENlUJInX5clKxBb eA8vxKcuGLfvkyKgLMT sqQnaS8ThKGIpyLholL hcbHMhN5I9Wu05PR6by YUnHKGlpBoxX6MzHDNn tIeqaHydyVBuD2CvMBM gSUlJYiBvZiBleHRyYW 3fTQUzRRFstCGsE1I7P p88KB3hfWIiJKDxvFUx F5JiACCvT45zWKr8qJ5 nvS0yKEkZTmrdQIbeCW CkgwFMITlmZGD4WXR3t fGyZYfsH63oeyH7AVaQ HUkfY70kuIOeKNG8jdg hbCBmaWJyaWxsYXRpb2 5cCQ4obSMdgUjvpobjt 7Jhr7FtZ4buoXQmKYaP NDguOTFdXHBhciBVbmV 8eDfffZ5aONGiKRagfg LbKgJ5PoLoJYHymhLMn YgcAKYnM87vqWj9HUXb uMYrvPHiOF49KCZifwL ldEU9FAZfO9ewYC83II 1ccGFyIFBhcmtpbnNvb fvkZMJwb1Grz1WhM1hd MB0ivFUtYGIptECyu1S uOCGxuZemE7WdK2lfs2 9yGK4rMKUkONkoFDrIJ DQuNDJdXHBhciBEaXNw dSHbWZLofR17IQC2od7 jaGFudGVyaWMgZnJhY3 W1ysKri5DertpgqKCsO mVtdXIsIHNlcXVlbGEg B1P9Jz0uQJXXFSioPWL iRHpiKDD4PS6miJ2bIK tJMTBdXHBhciBDaHJvb khdMLN9cbobyEYyoWYj eOtpFHGqg47zYX1wmEB twFytmqexd8Vkh5LxO1 lmaWVkIFtJNDguMjBdX QKsfiGSxXKmqcDoNB6u aqCukTJibKF0bITtG5W 9MW43Fe1wcTfqwB2hTc LvGiZyLgnfHX2uPNKcB 4jcoRNpFUZyCXFnB6xw UtFxtG8vcMfzSJivdmF rOLRtuk10 Diagnosis (test code = 34) j6brwDIjZIHwuMN8DrV mARYgn9lsd3KvyOBihY WoPGijcNIfmgTxev02z EL4fM12OD3cSLKdTcC8 PZPljiE0Cul3YQLsZPV avXNeM219x6ciy9cqyq XfqHM7GNLgROOdW0EtG B5eYSQqoBYiI49oaDMi HWO3BNTwNCHysXSiKUL vRWV8MYKxqGEcA8zeQE TuPJ8lcrgrQQkxGCetP BDqiFM7JZMjhYRhP1Ei IYZnXYmtNXWrhfk4CkM mSd1alJHcfQldMSbzNL JkXHBsYWluXGZzMjBcY 4UkPHSoMzBqaWjqz2Cv VKHuOTB4YSHazZXajRK cfEIpgfI0qKwnQ69iCP HiQDAsbJWiVbmyhDD3K lxwYXJccGFyXGxpNzIw XGxpbjcyMFxjZjAgREl GRlVTRSBMQVJHRSBCLU NFTEwgTFlNUEhPTUEsI FlQPx6LStILILWYShLN MuIBNWVCAAudNM9JZF1 CFYmHRo8GBTJRQONuq9 VkUYApsN9fksVpMdkeX DEkwTGpMD5dVEUpTWii v5P0uLAvbL4ahDyakR9 dyVMww3ZjvR4zfD3dkG hyay77mPDzZnDdtHSgi 8M1UNKwzdNjWGYen4Mw zWbwVFGzzhBdkq8xHC5 ccGFyXHBhcmRccGFyfQ == Comment (test code = 9835) o3xypOGdBKPkuOZ8VjF nDABgi7mdq7IhzFZgjD YmWNdhfGBnjiVsss48u AF7xW59MB8pKNKzDiY0 EGKegvW1Frz9VNMoOZQ euFJcX161a3xgy3gudw LsfHB7RPFgNSEyP6JbR B4uBGKcsHDoW61pyALe KNL7HPIeBAZtwWAnPFW zAMK8EDPdqYUfK1ycWX CkTN4xugjwSDizWFqzQ RUsrSA8UBBbmFBwJ7Kz DZOgJVoaRVRymjn6DfL qYx5ccUQkpBsxMWsaLP JkXHBsYWluXGZzMjAgV TrrtfVqpbWtFIq0MBpt BIYgd2fuHG7wytN1uVK yDAFqhVstwL9uwDPyPz AicWGtyD45wiSgWHowN ORbxqYfqa5vUFNfRqR8 tOGye4AfyIMfqF1oJiP zAHwfm0ZagMFbDFHlo4 WuraGoTDJ8fR3mCXYhk Ufab4CbVAR9BBHgSQzk hRxltiKmmxCbzlX3lUi xHLrtK05uv0InKIUhF0 SqtHLry42dWP0dT3rzw aDaqS7vuD4iYYLzQlZm m0ufwTNbQMRsIW40WPU bW3SpiNNmyxztvL1uMH KjjLusD5DqLVLhhQjwd SrqlILuE3QuTORjK7Wz epEjXPSxRtJ3o3FkgRK jZ6RrMc0aEZyrKYj8rB Ecg02vYXCuGEBwFUNmh 9I0p0ajXLFtq4YuaABp eP8bwOThWBMhCMdnZEX oX5MrUZiyb6FudR8zkP Ind4LchAdtubTyo1bpt iZrKFOloJBaf0fwfKQj FITvURqwEW28rdOgMeZ ui4C2ADEud3J7TZP3mY MpYQG8hZCcP1VcIGZug GdfhM3bhHf3hdV9ML2m Dg5ec8AbalDmfg5zLOn eMKFecCl6TZI9sNGmZZ lzIHByZXNlbnQuIFRoZ SBhdHlwaWNhbCBpbmZp bHRyYXRlIGlzIGNvbXB yaXNlZCBvZiBsYXJnZS QiFIfzfqT9cUWtUFveK 0rrbLLfhjCsR3ExQSCu ziFhyAPxfwFnr091j2U vIXN3XYYbT4HvOXByZ5 fsg94iiVxxFJXmT0Trj 5sfusQwSEFlv95wgdMx aIOqpGXzGH7tnBscAJ1 dRXFzhMqwPQYuw6RibB Xhd9EdYR6ukW2dtHieo UjuCHY7qC6dsOCibF6g RU11nIGtw9WqSNOuyje zSPKmZBluTIAdm6W7f5 NpcyBhbmQgZnJlcXVlb kQlzGu4p1DaJzEohIk9 cmVzIGFyZSBvYnNlcnZ iHI7sZPWowdTyqUUtoP YcRDYsn9LezyNzzdZdx 8Kji6Zctd8jMA1xwmlf HjDxe6swc1YrVNRcPRS jk3JhPJlxxaUrpjSneX WotdVnXuspOP7ruDEoN PPfoyDSkZ30vd7khOL5 o0GcJO5aV2GwMFA0TDn cuL7aLMSbj9feKXZaGN QgdGhlIGxhcmdlIGNlb UecZRExSOOqn2ZdhZn8 NFPyk8TtV5MhRNviU9O 0NSAoTENBKSwgQkNMMi ztZhYTUfroSO0mWINkW DJbEFvoxDv2SXHzg6Tw N9HqQOHJAQQcFOJYDTI jIEPDGO6rKQMKALYnMS HyZCGdJIW5wK9xBIAky RudXGUwM7z9SNnkKKoE JG8LDP9jIJgxz4VueKn qreTbVRUyi7YotXqpWP wxezsiZCd2bSVwu1kbD JZrfRvpSSTaEPZju6An lOh0FZAbp7AkQTDGFE1 mUP5eT9LvvD2vQUumfM mayTdjpBGgU3OumLOeF DFfDLQeg6s7eKJnFARd psJJUILeGsWmT6L7PYA rkSdycKftxVMgON51fS Yve9MeLKXfG0stve83p sPucKPsh4UbTPAnf4Jo LUYhQCBkIIHpm5NoPNb bxw6fAIMgYCPpkl7kiY HmmhA6hW8rZUzjQLZ1R P8pNXC8snGjUMP5WLis MVE7ZYodRLRaaACnaHe tYXRlbHkgNTAtNjAlLi MFdyGhyOT3MWv5ZpQyA Df1SHAhl78cBw0dIFKY SaFBAwPTVMkiXL6yV8B 0aXZlLlxwYXJccGFyIE Yts1sqM1r4v80ybNVaF yBhbmFseXNpcyBvbiBj w29jqYFsEI00OKQvarL tbmVlZGxlIGFzcGlyYX IeVVBbr8vdCA9xtGsva 6ZnHUAhp70flUIFQFKo bGxzIHRoYXQgYXJlIGl vYKWnoJGjqUScVe5mJQ WaLjpqnNDhijQvB6oqx jYuyAG2YUQsLDr0o0nb LiAgXHBhclxwYXIgVGh iVI90RBGfoRtfnU4ulQ taqH1gyOEgSC8zDJsbf QNim7NtSY4tnXfvlWYe GlukRYzoZ5YbWEUoHWR hpHTefTsubFBwb9s2yI BkaWZmdXNlIGxhcmdlI APlV7UbsMHevY2cvQ3e GZzgU8JquDarWMjvT1G boHHcDKDwJ1ViwDOktQ 22ey1bkKVal9K4aNKfI BWdlqdtVUAoE6p5h8qa kwE3yMTyw3K1EJzpMNR DU1agZUXngdUUORAeR4 TaAKBiRKThdyKiZ8CsV E05AUydGCvjSPZqu5qu YXJaHCB9qRVjbnGylEu 1NT6gDSvmbRLsHHfohS upZjXmyvHqk8M5XTRjM yhrvZihFWCesO0oI2Of DUE8aC0qWF3ioQynSCv yMy4qYGXiisndNOXtXY DqIP2kGJHis62lT1VuS 5PvURUthoUivv0ckXRx XHBhclxsaTFccmkxXGx pbjEgTWVkaWNhbCBuZW Hhw5CkqQimryNyhMzpn MSrqUpnumPbd2PyrZmf VUpvtRPia5fqm2LbT2e zmDlsAAmgh0DjrI9hJG AzRLTtm1HiDHOqBAOpV WSifX6rJZGalUOld01t iV9wgSbdCIBjy6qsS0g 8b11zuLZtVsJoeW45rg 4pfVQmd9B3pJfuGBK0r UGfFAWuLg3dCQWmVXYa FDG0HZBdZSlxv4QhxvC ck0MhmYHmKCJzsvFawg Dgo9lou7mtCtj+IFRoZ CCcfE07KZM0gV3zDPFt mOIjp4U1QHlvrqRhuyB twz96CCZiFFOrtRhupa TefcDaUE17PYDqpuMjj 7IuVLzkPFMoKBSaTOL7 bOKenkIdYUH3aEIabes gZXZhbHVhdGlvbiBpbi R0iTvkSKShFAWtjHNyT lxwYXJccGFyZFxjZjBc cGFyfQ== Gross Description (test u7nhjZZkXNOafWSCCLy code = [id number]) wMFxhbnNpXHNwbHRwZ3 MppfhgLGbqJJ5jMJ7zr VbilMZopAOpJN1NXGBb ZmYxXHBhcGVydzEyMjQ sDZDrgZTppZA5VJCpWP 1hcmdsMTgwMFxtYXJnc yT1HLEgtFAdS4QoGVVi LJ0crmpzHEA7KOblrH7 jpmEBObryVz1xhWHnhK tcZjFcZmNoYXJzZXQwX KKxqLdiSLUbNVm5tH5A JlkrN63wz6W1Ymd0XUC qTFMyV5UmTL8gGYTqtP OfZ88WFnlfLTS2GZJWF touOFLrWE4Su8xeNGZk oQRwAHS2PTbtdYOkFCI zRFOlLNl7YRGkVGshvT OpHV8zfLeyIkdmeGumh 2VjdCBcXGlkIDUxMDAy AJhxVSZzLV0IDyAxPMD fZvGlVlJqMPn3UFk1FV 0WFdTmEQSrMTz0MCcyN hUtIPp5DYubWD1NOIrh Fuc9AVB5CoL8MCCySpP cXHQgMiBcXGYgQXJpYW wgXFxmcyAxMCBcXGZiI GdeYoemWAolC37jfGwm hX6gHjagitVdOBL1CQW hciANClxwbGFpblxlcG ljTmVzdERvYzEgDQpcb HRycGFyXGxpbjBccmlu MCANClxsdHJjaFxiXGN mMVxmczIwIFJldHJvcG CogNSyilE1qBijlZCek XarSqXnu08ciqfneoCp LesmUAnoOqPeDOBvs66 szMT8LE3nCbNwf06fiS pdh6WvFIWhauOsCZLat mdpbmcgZnJvbSAwLjdj wNW0cxFgZojjA78mnI4 aqEFyY4TzVOChMGHmTc CnW41tdV3wVZaemVB7C UOiMCUxfYujKNv0WOX3 Ra7fiTUwPHCfldBXELE nIxXih5IzppnmUK2qYB DhTJapFEAvpkMoQN8uD VQNClxlcGljTmVzdERv OhPqqeT5DLQfyMTaXLU 3VX3vDPXqxmucMFQoWT HoNIF4VMsrjA17zZOaF GZzMTZccGFyfVxwbGFp iqXAUohmdR5aAuVne2w eaCj2YYNTHzncwXRjcu dmmqW4NWLfw7hpsXuqr 8EooENsDA5elBttnL4c ZnMxNiANCn0= Disclaimer (test code = p8fnpEBsCWQybYApRwE 9844) mOTVqMKNwj5mpMPMukE FuZzEwMzNcZnRuYmpcd OQaTKHtWlLom9vpr720 jEUwo6ulSVNyGtC2jYG pUDCekIXpE748PFCyOG mec5lru0UtFJMxrSSqp 3H7MCWAkyqwtQe8nGfm O75co2S4XpygB4yhVWO iVXTqU3RfEZ8pGUXwGi y8WAI6UBZ8VHCmOWIhK 3ReMF5sDPLwzSDcLSb5 s9ghhQnnDIRhWFT3q6w mQCodylEhSW1xtw1kjR e6c3ujccUbCWPkKEMnq FCFGDPeF3MlpBhsIa6b vPm5hPcnBplxIZU8Zjl 0YX4ivh44iku3wNybSS MubakjGhG8KNdfDWTop uxrQQs4SWuzKXYmvPC6 OQAzfIGuR0QgGQDxWK9 hgia2GMU8BZtyTANqZs I6JPUzlROvYOXtlHwnN Wluj472WJZ9WwDsYL2c W6Tpd0D1fT1enXUuUBC fcDFwRjPqUTEqfm6ulE TtYBnzt6CtNEA2yrW6b QDozHVoRITdUK28Cfsw a9VmZikqZGD6WFFyoqG nj9Owf7qwMpQjcwNnA4 isL1JfDAEkNDFjYOEmG hTvvtGku3Jic7NxrWUx zGn6x6ugQUTbJXPrhPb ap3jiICM1TURyC0G1mP Mhe5hzRMorITCblMV8w xV3VXBszJWbH3SynI5v OLUaAF9hwpp9y3spVDK 3AWfgRDUjOkK7cqI9JV BcaGVhZGVyeTcyMFxmb 720CXS9VaPlKWZtk1Fa N7FchRquJ29qfXeoA98 hAUVbgAsamB8oqSswdZ 5cZjBcZnMyNFxxbFxwb WRozuyfDJahofQ9HDpf weuvXMIoBLvbB7tkCmP cJVVnhSgrUDyng0XwDP MzYKOhPkgtgkK2ZOOMw 36xNBUid7RjYUWdgE1g oFJbGCskmrMqoVO0WWc hdmUgYmVlbiBkZXZlbG 2qILSrHT3iGJBsxsEfx k2vvbVnUDNoTOQtS4Qd cmlzdGljcyBkZXRlcm1 xdhCzNAM8MEKCDH6OOC ThVWKln48bFQLltVdrs L3rhMDtoqQsSYVky0Qf tW3ckDKLEYYgV8gxON1 vBIbkm0HodSYqaZBdwS L0FDMls9TsCxYxcmTzc WXxuXMeP0YiqEunC3da JWNnSYRaqjYhuATbw2F iBKNllZE3lPLiMC9OCy OHx72xMSNiTHGXkqJwN ZHxaLbpaNH2qzH9cU3a LiBJZiBhcHBsaWNhYmx tESCtc429nv8ldmV3VM TcHOWwezkgm5HvPDYgG JRmgD13LQRcUEPhto3q oapvxPIkelVaP0Beszg 9xD6qCMTiXEgvPNDxVE ZzMjJcbGFuZzEwMzNca GljaFxmMVxkYmNoXGYx NAyyG3mjHuLkSzPvXyn wYXJ9 [facility]1263-85-33 18:43:19 Test Item Value Reference Range Interpretation Comments Materials Received (test v3kvhEUjSZMnaVSxAkHj code = 9973) TQYoHIJcp9lcZHRfcISx ZzEwMzNcZnRuYmpcdWMx EXVpIgZsu8ngf684qVRm r6qwUEAdPbF6dJDuLREb tKPyT173USJaGMcdp6dv y0QyEBQggLNet6A9YCLP srraeOn6vTcnI72vc1V9 KdtbL4jcWFBaSUJvL5Dl HR1qUEHlDgk9ARY8UGG4 GJZiZWOuH4BlQD0hMRYg lJWrZHn6h5ahuVobVKOw QAA7p9olGQldlzNqBD2a wl9pdHd0u2vkiuCiAAAt FQNkhUAKXDYdJ5AkgFki Nr6gzKc1iSolYvxoMRP4 Mrb9DN8okv42hkx4dAmj ASKareijPdU8DNfwBNUg hhdmIPd6LKuiOVHajBug MFxtYXJncjcyMFxtYXJn zNT2GUHppFYlM2RrVQSv FCxuFXEuzid4QzBjYh0n dLExgTgdXTrmv8eko8to tIGtLon8AZGhGoRgWvwi WCklr5Chh4heJWZuap8o DFL6wBVmsRtld1I9fNHz MWUgxDGmtbAcROKkvr63 uJLqcLHlbVHjbg2fgvMs sROtuPVkMUE2jZHzuaEi IVQuxHCvBBGsMV8ndXKz MFVanZ4fqztaXLCxUaWz mcybQQTdlPheapWxDt5a nAwlTJS4IVqnR2gmgZ1u DsB9LMoyC1aczF8aBLh7 KKmngOB6LOHvzD9zCH5s takjb6qnJqXvUF4rkkrt c9fiXyXpPD4agwv3b0xw TCK7FBafUFAfSgA4pkS2 NDBcaGVhZGVyeTcyMFxm c626VCU6GoArEIJrf0Tl Z4NpeRqzW45nkYjbW59m YQStdQawqY5lkXtqoD2m AaVoRzMiKFr2hc39GAd5 nnufyGlzIUg9psIkZECv OXO6KOBvhPSyWFYhS0g2 toHiCGSiUJF5KNJakGBs CLTvE8n1wsUcFQW6ACg9 cnBhZGRmdDNcdHJwYWRk YjBcdHJwYWRkZmIzXHRy xRDlzTCisHUusQ0xgIyi NETlpNZmbW8eFDM8NEDy cmgzMjBcdHJoZHJcbHRy hr69RBAbdfNpeXUoqSab qNVtVYY9MNKaPSRhFPHo AHN1QEBiJiKkonMpAPzr bGJyZHJiXGJyZHJzXGJy GOC4ZJOjFtOdmxVtHNul bGJyZHJsXGJyZHJzXGJy NVL3ANDtRyOqdmQbHJnc bGJyZHJyXGJyZHJzXGJy THI8UKGtXcZcmgAdBVhj bHBhZHQxMFxjbHBhZGZ0 J3eiqFMjPKBpIOpomFEt YDMrX6gmoJZiVGuwBCCl cGFkZmwzXGNscGFkYjBc V2auHPJiDgIlK2WqaVc3 MDAwXGNsdmVydGFsdFxj oZRcBAM6UGHsWPJjERYt UBL8DMPhYcJjbtCmZOgv bGJyZHJiXGJyZHJzXGJy YTM3FKNlKlXjctBbJKbc bGJyZHJsXGJyZHJzXGJy TYN1KNAyHvYfofEqGJih bGJyZHJyXGJyZHJzXGJy WLV5TBVgLnLozkUzSXmx bHBhZHQxMFxjbHBhZGZ0 B3mgnSIwPKWwXVszdFUh ZIMsA2kpjFKyJAgjTOKc cGFkZmwzXGNscGFkYjBc P1sdGZXtLgNnD1GmrUz7 NjAwXGNsdmVydGFsdFxj jFVtQON5SDKgVTRyJYOa BNZ6ZREpAqRjbpXtAKpo bGJyZHJiXGJyZHJzXGJy BKF0DGVyLoRnzeEkNHcl bGJyZHJsXGJyZHJzXGJy MQP2VRGrVpZhnvQyOWwf bGJyZHJyXGJyZHJzXGJy YYT5MFLyDmPxtwRzSXao bHBhZHQxMFxjbHBhZGZ0 Z2qcsNItUAKpGBsdnBRt XNVvM5dnaIBfDRkaCYQb cGFkZmwzXGNscGFkYjBc O4qfMWKwPxOdR0HghVu3 OiSmISOyxfUxxT45Gnrh j6RbABNfVMI3PIghLKqp bFxwbGFpblxmMVxmczIw RAavomorUYQdSAngV8bt ZgRqDQEgjRqzTNfhz3Is XGYxXGNmMlxmczIwXGIg SGLjJAUroX0lJndkT8So kU5rAPfrUpmzY2viNIPk m3NvaU4jXLzfzKOhvkqf MVxmczIwXGxhbmcxMDMz SExdL8shYzIbHOTwpEee EXtkp1SzRMIpIUZaAyyv beXjSNw9tyXrMOOtkZfe nBYpQNxopcPazDech9Ap hmLvwUtyDVLoWYz0ggJt homsxLh7jPGluAgwZWLq uAvhmW1pHbGtSyUtXFjz bGFpblxmMVxmczIwXGxh gvbmASIoXFhaK6xsMeZr BECxyInoXXktc7XiNAEb WKZhPnyvodNzCWQsG30o bGVjdGVkXHBsYWluXGYx XGZzMjBcbGFuZzEwMzNc aGljaFxmMVxkYmNoXGYx DNvzR4reHfGrP7GeEKUk SyCrqBPpE1etB8FniCua YXJkXGludGJsXHNzcGFy JPZ4mFAemjGrxZKfoTEd HMUzHJhdQHM4gNZfqkme uVEcxttoLNdnyqM1OQWk YWluXGYxXGZzMjBcbGFu ZzEwMzNcaGljaFxmMVxk WuUoNAMpOUdqJ4whJdCq D1FsWVXjBzKdXzXLCCNv aXZlZFxwbGFpblxmMVxm czIwXGxhbmcxMDMzXGhp G6ziCrPgQOZsrKqrOTej i4HjDOUmYJNwKnxxnqZb VOz3fbLcHAAfhVuzoQ48 Newxpx44UTUrz9gtLWNn U2SaeMIeCFMjjKAtSJwe MDhcdHJwYWRkZmwzXHRy cGFkZHIxMDhcdHJwYWRk ZnIzXHRycGFkZHQwXHRy bNYxMJC8J6j7tpFyOHIy XYk1lhVtSFFoBwMlyKTw LUL8CBo6TshvcoR5lACh A5w7RdsywfSvAQoduTHd qj23XWUrejDdzAPuePns zPEcKDI8MXUpJSZhKPEm RSL2OBHtXzGrgwGsINbm bGJyZHJiXGJyZHJzXGJy KJM7YNAtDxSsjvQmZFov bGJyZHJsXGJyZHJzXGJy VPU8ZSSeSzWteeOiNOre bGJyZHJyXGJyZHJzXGJy YIV9BPKvUqOppwKlKNpy bHBhZHQxMFxjbHBhZGZ0 Y1evmIEgFHJlEDxjlETl EARcC0ubqMGuOWvsEUPl cGFkZmwzXGNscGFkYjBc O8xoPRFsSyAjL4QrjKu9 MDAwXGNsdmVydGFsdFxj dSAnZRY2PGUyPZTfRXZj FNX0URVgStMvimUsSYod bGJyZHJiXGJyZHJzXGJy JSY3HDCpFdVltmMsTBlo bGJyZHJsXGJyZHJzXGJy APU1JIBhFoBcxsWiMGpw bGJyZHJyXGJyZHJzXGJy KLL5KNSwMySrnpUjAFph bHBhZHQxMFxjbHBhZGZ0 S4orkWNcIJEnPWaopKLm CWZqP0rcuEOnITwnJWZf cGFkZmwzXGNscGFkYjBc E9sdUUQcTiVyS1SxkJh2 NjAwXGNsdmVydGFsdFxj fMBwJKX4QSNvKISlWZJd NRI8XYUyGpMukzQwYAul bGJyZHJiXGJyZHJzXGJy FGI4DHNrKdXzspWfGIji bGJyZHJsXGJyZHJzXGJy NOE4FEIfUvVgznLxKKaa bGJyZHJyXGJyZHJzXGJy RNM9BUUwXzYvxpChLRnw bHBhZHQxMFxjbHBhZGZ0 H3kzaRPpCONhYRyjcIPc KJZtA0ivqPSyVMikUDMc cGFkZmwzXGNscGFkYjBc C6zoTPPbHpFwQ0GhiUs6 VzHtTDZsjwAvpI44Hnzj z2KaXRJcZKN6EGtxWMup bFxwbGFpblxmMFxmczI0 XHBsYWluXGYxXGZzMjBc bGFuZzEwMzNcaGljaFxm ZLcfHaQxJHRrWQloR0cw ShOyX8WuSYFvHwMzOK0m ByS4IETwRBGnKNBcDQCN HuviNAOKSJ9CQ8FfYNVg VVNTXHBsYWluXGYxXGZz MjBcbGFuZzEwMzNcaGlj aFxmMVxkYmNoXGYxXGxv N0jkXhHnX4ZgFTQrNnBu qNNrM5bmE0GlvMicHTQf XGludGJsXHNzcGFyYWF1 zUZrlfUfxGuacUfmeM6g ZjBcZnMyNFxwbGFpblxm MVxmczIwXGxhbmcxMDMz NFtkP4mnItYuCTZteNqq ULwql7JbYKVtPEOnApwi czIwIDEyLzEwLzIwMjFc fOwxnJ2fPuHjKsGfBHtg EL7kLAXjV3gtrEXhOZXu VQOcQ0lmFcCdfA2vvCez MVxjZjJcZnMyMFxsdHJj xKsrOXmaIPQljmNvpH11 Qhesn9XoKBQmAQO2CSpl MFxxbFxwbGFpblxmMFxm htT8LAZzROleJCGeDMTa MjBcbGFuZzEwMzNcaGlj aFxmMVxkYmNoXGYxXGxv Q5wmPmFtW9YiLUQpSzQk TA2nFL3yUHKkGVJdPGak XGYxXGZzMjBcbGFuZzEw MzNcaGljaFxmMVxkYmNo CVUtJWslE5rqPfExP7Yi DWSbQlEqnXWwJ0zwD9Ej hOagolJtfEein9bbcUGr WPklm7RrlfAxsVnqLHUk XHFsXHBsYWluXGYwXGZz OtMafQdbgK5pVsTzDkEz HVuhEE9uLFOtX9vihWCw WLVlVWReN0giIfEriC8p aFxmMVxmczIwXHBhcn0= Diagnosis (test code = f6yceDZqDMAzfJW6VwYh 34) JUQhg4idr5UwhJWyvUCg ARpnsRFsqoDmvb99tWU5 sP94NE3dAZVdFsX3IVWo igL0Pew9MPRgKTIdlXHx P403t5jgv2rsdeTmgUB3 HIDhISTrJ3ByFC2iTTCy uSYiC52wbZRvMGO9ALKa KCFddJDyUZFqRGU5GFWa kNUgW2nlEKAuIW7furhs OPcdJAkwGNRsdVW0KITc uCMmF1IdLKWqAJfmBOIn lie9RzRdXd2tpGFsaUsf MFxwYXJkXHBsYWluXGZz EaFgF8LjLUZpuLAlnLMk vIWehcYbfVNplA5gmJOd y2LjEAUpKLPeiNWqMcid aVR5MEtnGXqEIdK0XRDp LWY9PUTxaCtnV6Aie63d NLD6KPGsHm6oNW7vZJAf DXpqpFFcEFGbhhn4NABe qYClMRaXHgnNKSUvU3CJ DOAGHS7PLG6BXMZuX9OC MMUBPM6MFuKzRSVmyqtf YXJ9 Comment (test code = s0ekxKYaXQFlcRB1ScYe 9835) CJLsy2bep4SgsHHatPSe BDvwnSLlryNtkr19xQH9 cU52EI1gARHzCpF1CILx cvI5Cge6XNYwAHMrnBSe E419c7vtb6lxtqXgqPD6 dKjzEGIwsyqaUzR4YZfl HBEwvbizJPi6QPjoLLHy uUW6ISGcnUBuH0DuOHVg FM0xwlv8XJA4YCxnMFFm PoI2SORqqXQiVIZmxLgf XVzrr133LTZ6AxIvCSNv dsYcuDgwtV2zDcRdTFRT pUFjzFmxkN8dm4seNaTf AFO4bA9bavJiiT64OP45 bHRpcGxlIHNtYWxsIGZy AHduYH69seMnWxNsmSBw s6HprALfa6AabPwuz9Bs IGluZmlsdHJhdGVkIGJ5 TMZzAGA0cKWxW1VeEKs0 sJZqx1ufQKwkSnxipGZl bFDpB26ieC8aBTOnfVXh RJ1ddD5ofsFezXPtIyAf BPDeITDgJYzqjfS1uJXj IHNsaWdodCBudWNsZWFy SApigqKxmXnypop6kTYz YXRjDIG9EOXzYOPhPBMa lC03wnSiTE2tHEL0qP3m nMAbwK9rIEAwc6D3k0Ta YyBjZWxscyBhbmQgZGVi yotvOXHoXDBhR0Nfy9ls seBdvUpdat32QXXvDOWr l2VquNOxinNugiPxbsIn BIVad0HbwgHytzYqbBVk SGFcIGRjPK6qBYrkTDUo bWUgYXJlYXMsIHRoZSBp bmZpbHRyYXRlIGhhcyBh pxVeugnkl6FlslSuoFSn SJupfOBaEfC0mT6wGkKp VGhlIGluZmlsdHJhdGlv akDfWWJ6LSFsEKpiNXVy VnUnC9EjcWC2kbFgpEAp KZMeRJMxQ7JsOKYmmFkb y49htMtjQFjseUl3UBFi f0RttJuhDtbfZITfnJGr UK37sGIuiOddMMzdnDRj r0ybs0UqS7jrpXtiRZqd c0UziC8sAEXyLRIca3Re ZWQgZWxzZXdoZXJlLCB3 SVCwFEQrrpOmsy3aEIZm heO9bFHlv4CiD1xrDT8u AI9iHGKhq0BzPALsJSXm ciByZXZpZXcuICBUaGUg kE0twHu5pzG8lW2nEYYa vNxmIAMkULBla1SvcNq8 LQTeb4NvU1FzRFkmR6S8 VBFyQRVYEJFzVFEbhF4r MVXHI5s8ZTK5bQClOIJ2 BtNsnGPnxL0reXCselMm Ku4lJURWIUlyZMNPGHMw QkVsOPRwpbUhYO95ZhRn IwNgYF7uOZUqHTEvIIec cyBhcmUgbmVnYXRpdmUg Cp1vISYQQAZoWOKSTxEq IENEMjMsIENEMzAsIEFM JsMdDZXOJOIaYNM4G2wj qjWFQMhlPQNNIYUcIC8m VWHuqsC0lQ1qHJKnvEgo LiBUaGUgcHJvbGlmZXJh dEitjxHoSWCqSCW0IEva KIF8NKD3GUrnmI5kVVvo IGFwcHJveGltYXRlbHkg NjAlLlxwYXJccGFyIFBl jhD4tZXtgKBtzaqwKHQx myPep2W1WFOrsIMntcCi P1NgY9WqoR6lp1c8kKQq vPWseTKzunC6vY1nJSjy fbQqIBIbf8AhEJLub88r wCtnEBMaaNEtAP8eLZ7v LTAgIRCoRG0gQW5htaGg PX2qFR9TMwrrNgKBNrwx VtFMPmTikkBLZDIdTH0d tJjsuFEnbAqvdvR1VZGu CIJ8BXD2GZB2AWKbL50t nPAbCnF6bIYum2VrH1sv IZwpriUbr0Q8ZEmmqsHn o2RizFOybythUFIyRg4b CFFofiodhf2ndFFnQANo yeKRzRHtjE7icB7inDao bV3yzSUzwFPjrEPytI1s yP7wwaEat0UnN3GyxNIt JbRkouvpsU7dR0fky0Wn ByjwLFSod24rRSQdeX0z IJCzZOVzYHGkk6Yvk4Tl DHYszbNgmGNkeM6mEPVs ZKAlq78qn4tfkGDtwSBr vu6pHKeeCHSlq88kMhCq YUA3NJxqtzY1WIQvTRJt QmP0WS67KbhySJFvTZSm OCI5iH9lilTkZKTeypKb yWKgREUsxS6bZG8rSMZV IMWaYsZ4XBZpf3tcCFT5 zIKtw4Brn64dy7FaJbXO Ai2yHLNkHNHpJPEwBI73 WKbyZU9rOV3OCEFlhU4s aOMmrbOsxmCsiDafs0Yn IoOlQMmgejHvsuJne1Vw lOI7RLUwCTWeMtInDDtt lHFuKXzuVLT7SMQnTILo yQArVcTmGd8eZQNsf9e8 aXZpdHkuXHBhclxwYXIg OOGue6LjkQ9oZYYhDAFz ZSBjbGluaWNhbCBpbmZv zx7msSzewwJpvbQhyQXn kBWuuP9jtSuaQA3LAWWd WPYdw15mZO5mXZlsPPrk vdWqf1NiaqeqzSvfTDHd hJmewqLqqURtu5CutRKi EXfkDAEvD2EdPhXqNRWi JkZmu1y1qWTvYKOuLLCw ZWQgYXBwZXRpdGUsIHdl xMyhaUGpp4SlUIFbCCMs DDCbXT1oIMMpctD9zJZy zOwtaq0wSRHmb03yzvSi wN2zhbJeiHhhKWW2RFc7 GACij81vcKHjjyBwAWLl t17pGKqmryGolQUhwxNv XzxrRZTyhbI7eSKjD5Fh SCphIZ8zAKTyJPNsdB9y SNDyYYKzPGIgaNlqIW9k VVCXFFXrp0OlkDe8LLjm eaLlaDAaRN2dhIEjADjm IHRoZSBjZWxpYWMgdHJ1 yzhpKK1iWETgpIMvlKQj gFPolvP2rC4bVKKgTEWm JYUyWZ33KUVfXZQlh1Mz lQN6wSKfNlcekJG9INWj spcvy4FnJOqoPQHntAXo oyPbx5C9SpMxZMnpZZLv bVossyBubXHaTC4xRXod y1Nczkzqp7XqzLzsqZsw zBOxmPJkn3RfdJ1tqQff zlHdtN3jq7ciIWJVLIX6 YnNlcXVlbnQgYmlvcHN5 KK2mFCXkYBLqIDH1ATFo oLBdeVMfuVCxlkU4xEsr iKRdXt4lbXEuNOQ7YE1D FGYkGKKpj96yZI2lPYSl MO7qCNNfCFmgHQYjnaDd b9W0JZCcNrlzjbEjt6ip YyU2UFssr2ldr7VwWDBu UyD0q6HrqEMrY0QqSw6g WZvcRYx5sREwd55pIWpy gJvfVBFrVZCwtD9tqQPd HU46MAVwlRbeSKZjvZ60 xp1hiGXxu0U8vLLoAGVd bsbmGWUyXf8jSTSrsBDp q87fkDE3VEN0qO9mEJwi yaZeVYQtm1ZuOJDoa51t pYjwaqCwLC8igIRnYIXn TUDuBE1qPCXvp15jIZNl cn0= Disclaimer (test code = p0wukQTnPJCxgRKbEsMf 9844) JNFfCUJzh1peXPLgtWRv ZzEwMzNcZnRuYmpcdWMx LFRcJhFno2ocx556dPSq n7bkXOVkGpY5cAZaMVFd iZPwU740IPYuNCced7va q5ZqZJDdvYAyv0K4WJDJ lhpmdUf4yQcqX86fu3X4 OfwvW6ahKRHmQQUsC6Vp UL5rQHBaIgv5KVL8GMV8 GFUdNUQqF9DaPR5tLUFd sEAnCSi5z8bnxAvnPQZp ZFB8f2mvGUagemAbVV1u vj4zoJh9v2ifidBjRZPr PNUklYTVRPCfW6BycGbg Om4jxEi6cSzoHwtaQHH4 Rzx8EJ4pba05fny5zYdd CENxugtgFtX3HSpcYHHo pybpINq8MSedNSSmyCZ6 WETmnHYiW6HzKOYiXT6q wzu8SMU0VNzrFGQnPyT8 NDBcaGVhZGVyeTcyMFxm s254NVR0EuLgZP1iK5Mj o6Q0jJ6rqHHnJGBmqQRc FaIoIHXuhc6koITmMZlo h9TgBBS3gtT8wWFvzSRq XKVfGK74Vdlda5CrNtdi BIN6BDRhgxDyh3Ziq4ka PlLbsjMsU6ixX2LuYUDc SPSrNIBxGwYoqaKqz1Ht f6CwjFJoaBz6n6qpCVAp XBThdXyrj7jlZWG1PFLv N7V4bVCnw6ruHSopDYQh gOR1vgC4VJEkzTXmW9Jy wR3sWXNiOJ8mjcj3p8wl REO3AOdlSIZuSjI9fzO3 NDBcaGVhZGVyeTcyMFxm r891QQX2PxIbQBFyb0Mm K2OprGbwB75qlPubD07e HOOqqGtnsF1omBaxrB0s ZjBcZnMyNFxxbFxwbGFp tglzANnffpW8XTbkpjqa HWThUOtmG0liJzGuYYLw tHvtLLuts4WlDSRsLZJr KwiciaW4YOOHm23eQWZe i5JdCZOitE4qaMAhJKow kcKxoJS1LTsrhhMpMhBg dnQrRKEqgA9hTPGsRM7i MCKferAthy6nrtRiUUAr TLOvK2ZgtziqoSmszpZg UDNvwb0qurBbAAO1YNFV DS3PCNDhEXRrq39wJARx xXtvqM9uyLNdcxMpRVCs j0VzpO1fsFJXPURkH0vw CT9sYEqna7EvuQNaxCBo gOJ9JPRzf8LvEcOgnwMb jZEknFXoA3WraCymP9vt MQBuLPHvonBnsSFxx1Fr UMYelOS9gGNhFE7SFkGA y52tQBLrVSCFojNaAQWr gFowdCU6vwV2nN2yDqKM ZiBhcHBsaWNhYmxlLCBj l669ca2kotV8GLZoKNQm etkgm6ChAIQnUJXogN47 SPGmTSOcgi0pznogpJJp jgAvM4Sgldg3lZ1fZQCk YWluXGYxXGZzMjJcbGFu ZzEwMzNcaGljaFxmMVxk KuGvXJOrDGggL7bbQwOw ZnMyMlxwYXJ9 MD [facility] Pizivww5299-86-70 00:43:58 Test Item Value Reference Range Interpretation Comments Final Report (test No growth code = 8488) Path Review - Urine The results have been (test code = 8483) reviewed and electronically signed by Pathologist:MYA DRISCOLL MD #[id number] MD [facility]inal[facility] with Jwqxdmmgqfl8653-28-38 14:57:01 Test Item Value Reference Interpretation Comments [...] implementation of new instrumentation in the [facility], allowing greater sensitivity of measurement. Urinalysis results reported by the [facility] using existing instrumentation, as well as Urinalysis testing performed manually or by backup methodology at the [facility] will remain relatively unchanged. New reporting parameters and units will now be reported for all campuses. Lab Interpretation Abnormal (test code = 83418-4) MD BlackwellUrinalysis w/Microscopic if Dkzgrqsff3442-74-19 14:43:21 Test Item Value Reference Range Interpretation [...] NEG Lab Interpretation (test code = Abnormal 83502-9) [facility] [id number] 04:31:58 Test Item Value Reference Range Interpretation [...] d message] code = 2018-09) The system [employer] generated this result transmit valentina reference range : 35 - 45 mmHg. The reference range was not used to interpret this result as normal/abnormal . POC AB pO2 (test 51 See_Comment A [Automated message] code = 3-7) The system [employer] generated this result transmit valentina reference range : 80 - 105 mmHg. The reference range was not used to interpret this result as normal/abnormal . POC AB TCO2 (test 31 See_Comment H [Automate d message] code = 2025-) The system [employer] generated this result transmit valentina reference range : 23 - 27 mEq/L. The reference range was not used to interpret this result as normal/abnormal . POC AB Bicarb (test 30 mmol/L 22-26 H code = 1960-4) POC AB Base Ex (test 7 mmol/L -2-3 H code = 93908-6) POC AB O2 Sat (test 89 % 95-98 L code = 2708-6) POC FiO2 (test code 28 = 70348-2) POC ABG Draw Site Rt Radial (test code = 27842-2) POC Adam Test (test Performed code = 59706-4) POC Sample Type Arterial (test code = 6690) POC Clean Dev (test Yes code = 6672) Performing Lab (test [facility] code = 12356) [facility] n[facility], [address] [place] [address] [place], [facility] [place] [address]; Icing Machine Operator: Dian Bedoya MD Lab Interpretation Abnormal (test code = 96571-3) MD [facility] Hmozogsq6515-53-64 04:31:57 Test Item Value Reference Range Interpretation Comments POC Critical Comment See Note Test pe rformer notified (test code = 8955) Ordering Licensed Provider and /o r designee of POC AB pO2 critical Result s. MD [facility] Glucose Dtdcpv5242-47-58 04:06:55 Test Item Value Reference Range Interpretation Comments POC Glucose (test 92 mg/dL 70-99 RN Notifie dCapillary code = 67799-5) blood sample s, e.g. obtained by fingerstick, [...] Capillary (test code = 9554) Performing Lab [facility] (test code = of Dewey LOCKETT And lara [address]) Clinical Lab, [address] [place] [address] [phone]; Icing Machine Operator: Dian Bedoya MD MD [facility] Culture w/ Gram Pmgkx9726-55-20 03:31:55 Test Item Value Reference Range Interpretation Comments Final Report (test No growth code = 8488) Path Review (test Culture yield may be code = 8492) affected by sample quality, prior treatment, and transportation conditions....The results have been reviewed and electronically signed by Pathologist:Bryan Alvarado MD, PhD #[id number] Gram Stain Report No WBC's seen.No organisms (test code = seen. 57160-3) MD [facility] Specimen Collection -[id number] 17:08:53 Test Item Value Reference Range Interpretation Comments Yasmaniruthie Ap Link (test Collect ion date/time code = 83218) has been modif ied to: 11:06:00. Prev ious collection date/time: 01/17 11:06:00.Megha montgomery from [id number] [NA] on 03/08/21 11: 08:53 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 by Taras Tariq. Cytogenetics (Received) Yes Lamin ection date/time (test code = 8304) has been modified to: 11:06:00. Prev ious collection date/time: 01/17 11:06:00.Correc valentina from Yes [NA] o n 03/08/21 11:08: 53 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 by Taras Tariq MDCytology Image-Guided FNA Hjgnqmztrhnpmu3106-64-09 15:47:50 Test Item Value Reference Range Interpretation Comments Gross Description (test m5okvSCsDURfdRK7WkKiDE code = 0988446337) Sxs6xol4GhaYSxzWTqPBmc iNVjqqOtws99aBA7iD25RO 5hLTFeHyR7LOByzhG1Hou6 JLJwUFOeyNIqN775o7xab4 uskePolJZ8QBAnVJKeZ7Dx AO5xKZHyrJWyZ65csDCtDE U3KRNmTHKohZRuRVKvVFD6 AARecRMcG7sqUGCgMT9ksi mlDIpgOGvfAIVyiFW4FKXb tWLgT9SwNVWfZVjsCDHqcf m3CoPnIm5vkJLwgCaiGSbo AMKvh9yxDFXwlUEgNML8YF wujNMrRMLyXYMcPUi7ZRFl QPpatXDsFC2fgRozMrwvoW zod0GrbPFaYGstFHAeFCCg BCspMWQgI1FXRNUeWuOuSO LzTcMuFEg1UEhiP7KPARHm XEZ0VOc8JAI3YiV5MFl7BF RSDx8gLMP6PmJkRuL5XAD1 VXX9EHwccAJlBAjnYzcsBA xmIEFyaWFsIFxcZnMgMTAg QSutUfRgSH5mjSdfnQRvyq xiXGZzMjAgQTpccGFyXGIw DNWmGSECbNQpoE4mtmBpiH EhS9KlLNI0CXRgxiTeIIWc ZmYgUXVpazsgMiBQYXAgU3 DubS7oK1leCYXuOAYhbfTq IMYwuWjzIPUmt8CjT7H3VI FkSWkzx0kjALSmRIryq7Vn HYbHXTHHBY0SMQ5qwOW5ZQ qLMFOZQ2kKbOO8QeTawOE7 VH18PNLfHNLnqVRzECxdZ5 47w4gdQ0h4eJvoW1iajPF7 VXfkgg63UJO7TYtcPkhydP Z1NNsdGfmlhQ5diDBGJGVY LccXSlsjyaCnSS1CNGcTPs WTNQ99Lu44XMAnQQHqeJFz FGezD353Vjqcw3Y9r5cvhV WcVEnyGgpaiLZcdzY1EJpX WOHVMPiMBxJmBI0oMEeHXV QHSqR3Eq78OSFbVUEonXSv PTnsN185ELInDWooTUMbp2 DqJ6GaBtKzNRfkFlWvVRAv hPhky9acdLHaSKhfJxakyD WdzvN7XMtBLDYHEEaEZsKv MW7aCQgVH9VOSgO3OsG1Mi Y2VYzvnMciEzdqrzFfdKKx ZvBgbN3gvBorwL8rJnYgTO xjZjEgIGluIFJQTUlccGFy RSOpApfHA0slWHCwBXAZRD tzTUQij3JhOVUaxoHZNEGk D0UdoCFlZPynU8MoREmzDB Trzz2bgMsjIkEfxXRmnTOl eVwmFqgrlRQ2DHwnKynvdM 5zdCBIWVBFUkxJTksgbmFt PZ2MUP1TZmNKKL56KKMwRc J0X4vMZ9TJCOYXJCT0AMo7 pLL7fI57KDImYUTheNLrDM nqV620BBVuMTTlGaP8TPOf KVcbf7krHHUlXIdgg4VwDO vBYMGCAY6AMS5zxKQ3MZiV U7DBINi1BGB9QtfsfSPWOC DIRGDPKHfdcOl5TAf6eRic UrkbjbHgcHFjOvYnlH2vhY lvrJ3sRiDqKOlmKhQzMXLt AGY0MRVlslwzPFHyD7j2FU mnSe15NWSpHBsmChXuxeLv dHJvcGVyaXRvbmVhbFx+bH mssTsptb3qNS62ZCYxnUAl INM6LR5bgLduRRWpI2AhL0 QoohU6WCYhujk4VXSYMSRD HXePVP0MBFLPZQCWEO6EQL pPCaYxARG9FSohJQc2LzOj U07LBfHYIKDDZ10BHRHJKI CFA7VMJOKAXLqXJ4AZQL7J QLXMKYHUDX1MDKyAQcJoBL trzN0hQDzPPBlHS7YRLC5L QYAUNQFWUE7VZmZwGEwXP8 BNJ9oUZQKePTWDJKSKUPGu EfLLNY4tOZs8Iqd0lLX1Um Q2OiBpbCQXLTHPWRiRDMHT Ck5YNOINMTOVFL9LDrSxX1 OKGU3CFn8BGTDTSWDYSH8M DMoYSfAiO6NSSD6VHm5BAN YICTSRGF8FJuPvWUWRK1TQ DgIJX0brMDZZBSVZCWUzUw LYAV2aIRBHWU4AZXHBEYXO T68UEMIYMECRC0UJLA6= Major Classification Nondiagnostic (test code = 9839) Diagnosis (test code = m8bfaLQfXSJadDM8CaZdPH 34) Syy8vwu9YwiKAfhERuSHtl hPBegxLgwm92uPE4pC59DR 6rVOIcNjZ4KJMzdrE0Yej1 MCJuWRFfmTEwR876y3pao3 qjweVrcTV4ITGsMZRlQ0El JC3rFUXohOZkZ03qbLZkDQ M4BVIzVIWnyHNeMTRlSUM8 JHDtdJXjO2lnUBYcUQ0vyr jkPYcqUSedBFKdlJX6BBBh mPBfY9EtRRDxHXraUBPljl m0MuAyDn1llLQwjFnzZAtx V4tmvC0nPkX1DBorB7oppC 1fLNc3TIhsMRYurTX8xdP8 UVCpcVEzJ9BusS8wWJSzJN 6caam8y4kcYWO5RMpvHJUc CvG4qiH2YNSybZDaYMzvxB FpblxmczIwXGNmMSBBLiBS TCNay1Tauvn2c85osY3fPT xlZnQsIGZpbmUgbmVlZGxl SRMmaVynXLWcm634LZcnAQ JcdGFiXHBhclxsaTcyMCBO j64tDCwfU53ex4HgWvHvmM HjdX6dsbtsWKQmBnYkZYPa IXseyxQiLNJeEKVgdJ0soC 2nAQTdQBaidrMyg0RuXZWw rP1rqcKgHDbxFWJuoTVkiF == Comment (test code = f3argSJyQGNosDY2RpByEH 9835) Fif6mrw6ZkvRYfyXBnXZsd rAByneZaov93xBT8oY30GV 8bJOIpLxW7BYEortA2Dwf0 WVFzTGZmvAQqN229o7eej2 phkfLebUO4UKGtWETnE2Vw JL6rWTFmuQEmB04ioOCiMO S9LOKqDSRrnSMsZIZfXNQ8 CORgcDEmQ7keECHsMC4pce dbITjySOmcQDHvwEV6DGYw tQJoE8TpHXSxKGqqMMSncq h1FePdFm6bpPGosDbxNDid YXJkXHBsYWluXGZzMjBcY2 PbPWGib3gzK0d7q04iiOH0 WCScIGr2v9brRAvWXk9nFa 5vSQI7ZQFqCAYfx8ztDYYo L6Pum6jsvyQpGDGfM1DzaS IkURyio8OoRjrujMLhxBYx a5ZkZ3uhtrJiiGR7RDKpGY v1c0viUuIDnDHgw0Jql0Bm RTAkXPXxe94pxWFzHD15dA xuKPGetYmrDRLuU50dYDNd CAEgkGHcOthksWZ4XBoVRm TmRWTjRtR3JDKbi8DgFGFy BHGbvkc9eAUdDUDaWMyrc1 Zeof7sPXFqpxknUZRzC5Yn FSYvnNsvTuokP9tqr3RunQ rdtdOobiBul333ysutrHVb kggksI2ddEebCJOwIWnoy3 Wyyb0uASWnzunrAVW6 Retained/Biomarker p3mssBWqRQMpcLK5YoQbFE Testing (test code = Cyf0qsp9DxpXZixNQxAAwp 9853) dOTcekStbh24kOX4zV12PA 1pMQJzMgB9LQLgghA0Tht7 SVEiHGFhiALeJ167v2zwn0 uodoQeyVV8oWgzPYPhtxnk OpI4VRdtULWxpaqdUFy6SD xvOZTtmCO8ZUDdgGQxU5Nr VRPzPP6dlhj6IOC7MPtrRJ AgDmE4QYAgxGAsRTFjbHqe AYfsk997QPB1PhArXCZgsq JgoZbbcL6hCjZpONNBZvds NCBTLCAxIENCXHBhcn0= Informational Points h0keaGDjLEZxcBFpPsVfQY (test code = 9836) UuLTRnw8jcKJFcaBUnJlNj MzNcZnRuYmpcdWMxXGRlZm Kud4ahy763hUFql3ahCNOn SdJ9dNOiQWOqwODuN741UU VjMAvok5fcq3UpBTZfdRZg y9O6JQKWIGqzZSXVURv3c6 afXnJaAoN5hELnYLnhX2qo xxMdjKTtGTClVJi2nZ90IK LfpP7rlFHqSMxvmuQcSxH6 XUumFGJyXoX2GBWbvNFfKN SeF6seVHPvTDnhKMOsXZbe zAAgDCB5sLyes3B9uQPkdF MdxRnwVjWuMcMhTxZVv4Ya BZg7vBesC5XoPIXfVdZ8pO QgUGFyYWdyYXBoIEZvbnQ7 rQ25YPqwwyP4lIHcy3Pju7 1zk473gH9rsWJyVGE4YNFu GPLtqFMoTDCrCWK2DYMijH VqZ3kfHOAmAJ6ypeioCOag GZrsRYDudPY1PNSzbFLxU6 XlHXBnCVrtZFGkcst9InWz Td9wmHAuuErmOResj7rjo0 dpvQFuJjj0GRUhHbSxIbnf LRcsq6Anp0tuCBEpcl4hUA J8gHJdhFlyi2E0bBSbKIDk lFFyyjLbIVBtKiW0EUuqRS 5ybt77XFTvDBW3tg1qjQUy cDatsyCvpHUfNMsoJ8YcSG Szk433HZPjS5HsGPXgj8X5 cnBvYrVbAHUkfPB3oqG6QV NnFQm1cMCodvK5gkDwjAXk M5xegQ7dXTAwMD2nfmbql0 qvYFbrBMheAAOggHB3tfO9 KJJlhNOoS2DcvD4yPZZxHN esKLUvpgr9VaGgEf6ehWEs eTcyMFxzYmtwYWdlXHBnbm NvbnRccGduZGVjXHBsYWlu XHBsYWluXGYwXGZzMjRccW grtPaczP9vGoSjIuFcRMxh XN8nLPMyJ5bgnXYmOXNzDD SlH5qhQvHttR7aqNqvVAuc npN9DEhaJ91gWGR1SWT7ak YjAOLitiLlQUXeBUXjGG2d cCSzDQDqNKUvBM0cQJP0XI lpuSLyOHVfADCzDBXxu4Zc YJ1mHSRtfJJgCSV2PRSpq9 OlI8CdJNC5QRRjaG6tDYZo eSBVVCBNRCBBbmRlcnNvbi VPBRBpg5iwF1ubNF2nPLee Qi8vVAWrywaxNGShaVTjwl YiLOAzPIOyNNCzf6MjKVbl fpMtew55MBKtQG1cg0LzN4 xqtLDgkVv0WQVdNWKoPKYp t5NhYODroa60ANIlShlecK efWQGsVw2lGo2lLSQekjJo FQU2PbQPEG3mockngJAzqK xyuq8kBKRgUXlnNCLqZRUr MjJcbGFuZzEwMzNcaGljaF xyOevpDfLjAVLpUTejQ5bn ZjJcZnMyMlxwYXJ9 MD [facility] Lxioinf2377-67-11 20:52:01 Test Item Value Reference Range Interpretation Comments Final Report (test No growth code = 8488) Path Review - Immunity and antibiotic Bottle/Isolator use may render culture (test code = 8499) negative. Ongoing infection requires repeat culture. The results have been reviewed and electronically signed by Pathologist:Wenceslao Lee MD, PhD #[id number] GRABIEL (test code = Quantitative blood culture GRABIEL) Isolator tube is QNS for testing. Refer to qualitative blood culture for test results. MD Zunigaingitis-Encephalitis Multiplex Panel Path Swusxs3489-09-10 20:47:05[facility] Path ReviewReviewed and Electronically signed by Pathologist:Wenceslao Lee MD, PhD #[id number] Comment: Assay is a multiplex PCR assay to aid in the diagnosis of meningitis / encephalitis. Results should be used in conjunction with other clinical and laboratory data and not as the sole basis for clinical decisions. Assay should not be used for monitoring response to therapy. 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 [facility] Non-Asset Protection Professional Interpretation 2021-03-04 22:56:50 Test Item Value Reference Range Interpretation Comments Gross Description (test d9cpuYQbFXAufZDJIK code = [id number]) cwMFxhbnNpXHNwbHRw C0JdamnsQXhsMZ3yED 5oeCkduYWryTIsTP6T XGRlZmYxXHBhcGVydz EyMjQwXHBhcGVyaDE1 PXBfLY4zgfutUAueZF jtDQAebcG0AVLjeYZu X1SdOEHiWA7dsnpsTZ H3DPuooO2aqbVHWytm Dh9hzQPdxQwrExJzGy NoYXJzZXQwXGZuaWwg CBHsPDp2vF3CSimcV1 7fl9W7Vuq3CSSjGEAl A4AdVZ3tMYZgsYQtP3 1ZYewbQLK6IKIWDofh AFXdTL0Pb5qsBYOjcK RnPBI5VKihkPYjNPHp HNJhLSt7SKByBCazzQ BmMH0bkPkaVzudwMjf j9PbwIUdBAnhUXEqTD ZnTPkwSKLaFL5KWdGp YDFjWeXwTDNiIVw6YF r8CS4DPlNiHQXyHNa7 IRJ8OGPwTBj5KYpsBO 8NQZodDRjxHmt4YZJ4 NTQxNSBcXHQgMiBcXG YgQXJpYWwgXFxmcyAx MCBcXGZiIFxcZmwgXF zjS13gjLpebC0xHmvr akUzWUT1SBJefoESXj xwbGFpblxlcGljTmVz dERvYzEgDQpcbHRycG FyXGxpbjBccmluMCAN ClxsdHJjaFxjZjFcZn MyMCAxIERpZmYgUXVp ualnOGWYEYErM2QpdN 2mL5gnFBUcFQGgwjOE BzDcpLstHPejjt59NK E1q5jyyABkGZbdUozm nAComwE6GZaMGCTKKK jCZtIfPX0tOJpFA6IP ITpUIsqfHCF1JHjigJ U7d4fhrHFzj3g5ZJky MXU9kOEnZUUqOKofdb 98DHF6RNvgMpbxfNA4 YZejNqbsdA0wnEXXXY PCYlwVUrdxjtXyGV1R DSjEFiUBAU78Pv98MQ QlBKOegWTuNLahE594 V76ld7LtYLIhx3yfyA VsZHtcKlxmbGRpbnN0 IEhZUEVSTElOSyBuYW 4nCSuNFLZBAjG9To87 XGZsZHJzbHQgXCcxQ3 45XIWaJXmrRJk5oqVt OJWvm4CoZ1IaC4ZfYC JsDfNtVCZmzGbvz6ir aWVsZHtcKlxmbGRpbn A4RCePQWABBOiXRfKs WI2wUXfLE0ZYYrS5Gp D1MvO1UHayqUttIidp dyEhhPRhKeNSuI2szZ tqwM5qbLGuY1fkG2Hx RPEpPwKljCNgMQ4AEO Vzh4DlL0U4VJWnIJcx o8fhZECcMVpuq5WqMS pUBBOUNL9VXU0hbYN7 DHqUQDRZV9vApII1Dp FcgSV6I577THDwKQOk zPDvWYphR054F3LjR2 eaPP2mO02tP6VxaMYk tSVyYGD1OMS0oH0dFZ 94vigiwLrqmIwvctX8 UQNfoxmzjWX3FUXfPD huu4tfZLJmYTuib7Vr STiNJFVLIF3PWT5isS Z5RHyYYAPDWGigKLC7 OPcckSH9r3jekPHsh3 a1LGhqYOY0jAuxzUFy blxsdHJjaFxjZjFcZn YsCEGPSop4OWXSUMVJ NKuJXT4MIBJESUFRSP 5JRHvNCcWmLES4ILqk RDD9ViPnDuC2IsH2Rs 9wAQKNMBSJIIrHOL4G LNJXKCPTHV9QSpPlC6 lMRENBUkRfTUVUQURB UDSkXiRAOO6tJxs6J7 9kz4QyWMDkO0vCYOKM UkRfTUVUQURBVEFfRU 4HFWHFYSHYCQ1LDGEA U70XCWTMYWSZA1WWF9 dDSXVhp1ZrmBceOqI8 QbCwWC9lEYiEk82zNR 18wgK3xT6sEMZxL3nc uQZ8BVhmDZE0UJm5DY CNBEJVGT7QESHPO11G NVQWPUEJU3GNWLTZZn ERJCLJN36QGOZCTEZW G4FKR2vWYIFCYrYFHS RAC34HFYOZKFVZR4XE RCBBVVRPUkVGUkVTSF 4MWLTTQNHRDZ2HTLnG IkZpCZLIN6AMEgSVB3 xtAONBJUSJQYErKN0S UIbaVXCbP47he6PGt5 TwWWHdj7eabWcgt9Hx dGVuZFxwYXJccGFyZF vipY2wDyVfq2merZs2 FExbipL8WLPmul5weD azaR7wURuvs7haMUF5 XHNsbXVsdDAgDQpccG wbgZ9bUdOsWtj4CVfp DPWqY3ZcW2PdpbZ1UI BsYWluXGZzMTYgDQp9 Major Classification (test NFMC/benign code = 9839) Diagnosis (test code = 34) q1vprTVoYXEvgQH5Lh LxTNXkk9ipk4AofJQz cGFyXGpleHBhbmRcbm 80lQL5uK41ED1wFOCb SbH5UBNacbU0Qoq9ZR MtJIPnuCLsB116s6yn c8yjrcJtaKL3BCOsYH UgW7FsWE0rTFQnoQYc F20tfDYvIXG9ALMtSP UayDSbMOPfCKO4YVRw bORbP0gsGYAxLK7jfe dyMTgwMFxtYXJndDE0 VAMcoURtD2RaPYSjUB xwTJXyoan2CxWnNu1v bTFppJizZVdaL2ffnF 2wVaV8SRufR2kaeG2v SBp7BBllPPDvsTB3ct Y7YMImhSFgA0HfaF5e YSCcLK3tzns3l0oxEG A1XBhjCQMoRiG7tgM9 NDBccGFyZFxwbGFpbl xmczIwIEEuIENlcmVi ek6biWstWExbJkn2kN YjULk9oSQftbSlrY4s dHVyZTpccGFyXHBhcl n3CNHmKt8mxRHkqAij VT65SQGndNpnDIpzQO 50aWZpZWRccGFyXHBh vtGeS5OuUKOedv9= Retained/Biomarker Testing i0kyyAGwHFDwiYO6Lv (test code = 9838) NpHDMtw0dyw2LxsTNf cGFyXGpleHBhbmRcbm 10jHX6nR11EL6nPSSc BlB8QATqgtU9Wzy2NC WrNTCvhVUaL762d0qc v1xzrpAgiHF1kWtoIJ ZqamtgIrW8GKrpEILj rhpfQSv7YQkdBDRnpY J1EHIkvVHiQ6PbTQBy IU8sliw4SQC9OWqtFV SwLfD5VIWbcASfEZBv wKejCToob124VDH2Ow SyBCDedmBkuEbqoG8x ZnMyMCBTUjogMiBTXH Bhcn0= Informational Points (test a2konBItWULgqZDlPx code = 9836) YjVVPxSGDxx5liWCUj bGFuZzEwMzNcZnRuYm mkrCCkFHVoEcBdn3xo r187cLIlp6lmRJJrYn M1oRHkQWZvoKWxR631 ONJoIZsnl9lpm9MpJA BwkVRly3Z9UFETHAkx TXBAWSt5k6ftHrFaOp I1gDIlJVenJ3yceuCa aKPgOLNxLCb2yV34AM NgzP8knVEaSLaezdBt SzQ9RJlhKANiRoO2BJ ZzcZNqVRUlS8vdPBFt XGdyZWVuMFxibHVlMC W0uYxes8L5zQXvxIUx dHtcZjBcZnMyMiBOb3 CuDPr0rWusS6CoLOYw ZnH6gPSdUSWfSLnaRM UoLNIlgtS6sN60EJog nzV7rOZad9Tuj41hh4 97aP7dqRAePSV0SJOm HZKtqBHtWOXtALT9MR HgdJZlV2tdARIoNA1i cmdyMTgwMFxtYXJndD T1JXGhyLRbL4WyKKNz BFpyGJSvogr4TcRiZd 6qlLNuuVrvPSsuq1bk x7zmlSDxGnn6UXKnOu ZwTmprEHcyh1Jhm2ud WVAhgy0lFGK9nGGdmN dom1I1uOKpDPHlxNUb puPsSDKpUiJ1BHjgGL 2mbj14FAWjEMF7td8k bGNccGdicmRyaGVhZF elM8HlBKTkq658EHZh N5EfFTKnq9X6rvInZs NqFEDxpKA9yeZ2NTDt TKi8zNVueuN8baJsbY YfJ8hexE6mCELbME8v olmlx8atRKqsESmrFM BkuHA1etI2GGEyzNXk J1YiuQ2bPHIaIPmxQM Qsjcb5CjZuYz5rpMPe eTcyMFxzYmtwYWdlXH BnbmNvbnRccGduZGVj XHBsYWluXHBsYWluXG YwXGZzMjRccWxccGxh qA3cArRaSxDtICihWJ 4pQURmN2uesWDbUEEc AKBcB4bcOoKdjV0wgF uuPZlparK4CEteX99t NZJ2RRV1jwOqJBRhqx NmBJBuXGOmPG6ljRIq XPYdJTNrKW7jRXN1ZC xvcGVkIGFuZCBwZXJm x8TsIL3aZSQniVYfEF L1BSHmd6QkJ2VzPMZ3 BPDvmS3jYTTnkURDKU BNRCBBbmRlcnNvbiBQ KXXbc2tjK4vaJM8lOJ joFj1iOLJiotxvVKRn aWNpbmUuIFRoZXNlIH Oxl4DyVNenxaDpsm56 ZEAoCZ7kq0CkM9bazQ HhfCy9IFOsAZEtTFOo e8HgFKRnee05UPHrPk hhwWimZXZpMd7yWj8n WEXckhGuVZV4ScEMCV 1gjboqyXOpwTpexf6l XHBsYWluXGYyXGZzMj JcbGFuZzEwMzNcaGlj aFxmMlxkYmNoXGYyXG xgT1caDwReMnLmNagq YXJ9 MD BlackwellCytokine [id number] 18:54:25 Test Item Value Reference Interpretation Comments Range Tumor Nec 7.5 pg/mL See_Comment H INTERPRETIVE IN FORMATION: Rby-Kgm-Tdgj (test Cytokines Results are used to code = 7669) understand the pathophysiology ofimmune, infectious, or inflammatory disorders, or m ay beused for research purpos es.This test was developed a nd its performance characteristics determined by [facility] Jeni rhina. It has not been cleare d orapproved by the [place] Food and Drug Administration. This testwas performed in a CLIA certified labor atory and isintended for clinical purposes.Perfor med By: [address] [address]Qemrbjcctn Director: Zamzam Melissa MD [Automated mess age] The system which ge nerated this result transmit [place] reference range: <=7.2. T he reference range was not u sed to interpret this result as normal/abnormal . Interleuk 2-Shaw <2.1 See_Comment [Automated message] The (test code = 6043) system [employer] generated this result transmit [place] reference range: <=2.1 pg /mL. The reference range was not used to interpret th is result as normal/abnormal . Interleukin 2 980.5 pg/mL 175.3-858.2 H Rcpt-Shaw (test code = 6048) Interleukin <1.9 See_Comment [Automated mes celestina] The 12-Shaw (test code system [facility] generated this = 6046) result transmit [place] reference range: <=1.9 pg /mL. The reference range was not used to interpret th is result as normal/abnormal . Interferon <4.2 See_Comment [Automated mes celestina] The gamma-Shaw (test system [facility] h generated this code = 6042) result transmit [place] reference range: <=4.2 pg /mL. The reference range was not used to interpret th is result as normal/abnormal . Interleukin 4-Shaw <2.2 See_Comment [Automat ed message] The (test code = 6050) system [employer] generated this result transmit [place] reference range: <=2.2 pg /mL. The reference range was not used to interpret th is result as normal/abnormal . Interleukin 5-Shaw <2.1 See_Comment [Automat ed message] The (test code = 6051) system [employer] generated this result transmit [place] reference range: <=2.1 pg /mL. The reference range was not used to interpret th is result as normal/abnormal . Interleukin 24.4 pg/mL See_Comment H [Automated mes celestina] The 10-[place] (test code system ich generated this = 6045) result transmit [place] reference range: <=2.8. T he reference range was not u sed to interpret this result as normal/abnormal . Interleukin 2 pg/mL See_Comment [Automated mes celestina] The 13-[place] (test code system ich generated this = 6047) result transmit [place] reference range: <=2.3. T he reference range was not u sed to interpret this result as normal/abnormal . Interleukin <1.4 See_Comment [Automated mes celestina] The 17-[place] (test code system ich generated this = 9390) result transmit [place] reference range: <=1.4 pg /mL. The reference range was not used to interpret th is result as normal/abnormal . Interleukin 1 <6.5 See_Comment [Automated me ssage] The beta-[place] (test system which generated this code = 6044) result transmit [place] reference range: <=6.7 pg /mL. The reference range was not used to interpret th is result as normal/abnormal . Interleukin 6-[place] 28.6 pg/mL See_Comment H [Automat ed message] The (test code = 6052) system [employer] generated this result transmit [place] reference range: <=2.0. T he reference range was not u sed to interpret this result as normal/abnormal . Interleukin 8-[place] <3.0 See_Comment Test Per formed by:DILIP (test code = 6053) [facility] [address] [place] [address] [Automated mess age] The system which ge nerated this result transmit [place] reference range: <=3.0 pg /mL. The reference range was not used to interpret th is result as normal/abnormal . Lab Interpretation Abnormal (test code = 09848-3) MD BlackwellFlow Cytometry Specimen Collection -[id number] 16:44:12 Test Item Value Reference Range Interpretation Comments Flow Cytometry Yes Test performe d by:The (Received) (test code [facility] = 8319) Rishi Cancer HudsonFlow Cyto metry [id number] [place] [address] Imani Ap Link (test [id number] code = 05294) MD AndersonCryptococcal Ag Path [id number] 16:23:24Crypto Ag PRReviewed and Electronically signed by Pathologist:Wenceslao Lee MD, PhD #[id number] Comment: Reference Range: NEGATIVE The Cryptococcal Antigen Lateral Flow Assay is a dipstick sandwich immunographic assay. Positive results will be titered. WENCESLAO LEE MD, PhD - [id number] by: WENCESLAO LEE MD, PhD - [id number] Date/Time: 03.04.2021 10:23 AM 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 Transcribed Date/Time: 03.04.2021 10:23 AM CSTElectronically Signed By: WENCESLAO LEE MD, PhD - [id number] on 03.04.2021 10:23 AM [facility] w/[id number] 14:54:28 Test Item Value Reference Range Interpretation Comments Final Report (test Culture ongoing. code = 8488) Pathreview issued too early. Patient credited. Path Review - AFB Partial antibiotic (test code = 8477) treatment can render AFB culture negative. AFB culture has sensitivity of 90%. The results have been reviewed and electronically signed by Pathologist:Wenceslao Lee MD, PhD #[id number] GRABIEL (test code = Cultures are held 8 weeks GRABIEL) before finalization. MD BlackwellCell Count w/ Diff Cerebrospinal [id number] 03:10:32 Test Item Value Reference Range Interpretation Comments Type CSF (test code = Tap When r eviewing the 36563-4) cell count and differential re sults, clinicians hermilo aleman consider the le ngth of time between spinal fluid collection and testing and the clinical condit ion of the patient. Appear CSF (test code = CLEAR CLEAR When reviewing the 15680-6) cell count and differential re sults, clinicians hermilo aleman consider the le ngth of time between spinal fluid collection and testing and the clinical condit ion of the patient. Color CSF (test code = Colorless Colorless When reviewing the 91711-9) cell count and differential re sults, clinicians [...] the patient. [Automated mess age] The system [employer] h generated this result transmitted ref erence [...] the patient. [Automated mess age] The system [employer] generated this result transmitted ref erence range: 0 - 0 /m cL. The reference r sheryl was not used to interpret this result as normal/abnor mal. Tot Cells CSF (test 4 When rev iewing the code = 31084-9) cell count a nd differential re sults, clinicians hermilo aleman consider the le ngth of time between spinal fluid collection and testing and the clinical condit ion of the patient. Neut CSF (test code = 0 % 0-5 When r eviewing the 34147-5) cell count and differential re sults, clinicians hermilo aleman consider the le ngth of time between spinal fluid collection and testing and the clinical condit ion of the patient. Lymph CSF (test code = 50 % 28-96 When reviewing the 49134-3) cell count and differential re sults, clinicians hermilo aleman consider the le ngth of time between spinal fluid collection and testing and the clinical condit ion of the patient. Histiocyte CSF (test 50 % 16-56 When re viewing the code = 35707-7) cell count a nd differential re sults, [...] condit ion of the patient. MD BlackwellMeningitis-Encephalitis [id number] 22:29:31 Test Item Value Reference Range Interpretation Comments Menin/Enceph Panel CSF Lumbar Assay is Source (test code = [facility]-sheila red 9391) for spinal fluid obtained via [...] code = 9158) Antigen Assay. MD BlackwellCryptococcal [id number] 21:26:30 Test Item Value Reference Range Interpretation Comments Cryptococcal Antigen Screen (test Negative Negative code = 72371-4) MD BlackwellProtein [id number] 21:14:18 Test Item Value Reference Range Interpretation Comments Protein CSF (test 36 mg/dL 15-45 code = 6894) Type CSF (test code Other When rev iewing the cell = 7672) count and diffe rential results, clinic ians should consider the length of time between spinal fluid co llection and testing and the clinical condit ion of the patient. MD BlackwellGlucose [id number] 21:14:17 Test Item Value Reference Range Interpretation Comments Glucose CSF (test 59 mg/dL 40-70 code = 5697) Type CSF (test code Other When rev iewing the cell = 7672) count and diffe rential results, clinic ians should consider the length of time between spinal fluid co llection and testing and the clinical condit ion of the patient. MD BlackwellHIV-1 DNA and RNA Qual [id number] 13:26:31 Test Item Value Reference Range Interpretation Comments HIV-1 Undetected Undetected Repeat testing in 1 to 2 months DNA/RNA is [facility]-1 infect ion. (test code ----ADDITIONAL = 34021-1) INFORMATION---- Th is test was per formed using the Primary Data RealTime HIV-1Qualitative assay ([employer] [place]) .This test was developed and i ts performance characteristics determined by [facility] in a manner consistent with CLIArequirement s. This test has not been cleare d or approved bythe U.S. Food and Drug Administration. Test Performed by:[facility] [address] [place], [place] [address]Gmd Direct or: Jaycob Izaguirre M.D. Ph. D.; CLIA# [id number] MD [id number] 11:25:38 Test Item Value Reference Range Interpretation Comments aPTT (test code = 6773) 37.3 See_Comment H [Au tomated message] The system [employer] generated this result transmitted ref erence range: 24.7 - 3 6.8 second(s). The reference range was not used to int erpret this result as normal/abnormal . Lab Interpretation (test Abnormal code = 58332-8) MD BlackwellProthrombin Time with [id number] 11:25:37 Test Item Value Reference Range Interpretation Comments PT (test code = 6746) 16.2 See_Comment H [Auto mated message] The system [employer] generated this result transmitted ref erence range: 11.5 - 1 3.9 second(s). The reference range was not used to int erpret this result as normal/abnormal . INR (test code = 5973) 1.39 0.90-1.10 H Lab Interpretation (test Abnormal code = 23703-0) MD BlackwellCMV Ab IgG+IgM Path [id number] 15:10:36CMV Panel PRPositive IgG with low IgM suggests previous infection. IVIG can give false positivity.High titers of IgG can give false negative IgM. Therefore, active disease ispossible but less likely with this pattern.Reviewed and Electronically signed by Pathologist:Wenceslao Lee MD, PhD #[id number] Comment: Test performed by an immunoassay intended for the qualitative detection of IgG and IgM antibodiesto Cytomegalovirus (CMV) in human serum. When equivocal results are obtained, another specimen should be -66 days later. WENCESLAO LEE MD,PhD - [id number] by: WENCESLAO LEE MD, PhD - [id number] Date/Time: 03.01.2021 9:10 AM 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 Transcribed Date/Time: 03.01.2021 9:10 AM CSTElectronically Signed By: WENCESLAO LEE MD, PhD - [id number] 03.01.2021 9:[address] [facility]MD BlackwellTroponin T (In-House)2021-03-01 11:02:34 Test Item Value [...] res ults. [Automated mess age] The system [employer] generated this result transmitted ref erence range: <=18. e reference range was not used to int erpret this result as normal/abnormal . Lab Interpretation Abnormal (test code = 70843-6) MD BlackwellHTLV I/II Ab Screen with [id number] 05:22:45 Test Item Value Reference Range Interpretation Comments HTLV I/II Ab Negative Negative Test Performed by:[facility] (test Clinic Lab oratories - code = 96282-8) [facility] perior [address] [facility] [address] [place], [place] [address]Duc Director: John Izaguirre M.D. Ph. D.; CLIA# [id number] MD BlackwellAmmonia [id number] 01:38:48 Test Item Value Reference Range Interpretation Comments Ammonia (test code = <13 See_Comment L [Autom ated message] 7499) The system [employer] generated this result transmitted ref erence range: 16 - 60 mcmol/L. The reference range was not used to int erpret this result as normal/abnormal . Lab Interpretation (test Abnormal code = 18720-6) MD BlackwellLactic Acid, [id number] 01:10:21 Test Item Value Reference Range Interpretation Comments V Lactate (test code = 2519-7) 2.0 mmol/L 0.5-1.6 H Lab Interpretation (test code = Abnormal 35283-5) MD BlackwellCMV Ab IgG+[id number] 21:53:38 Test Item Value Reference Range Interpretation Comments CMV IgM Int (test code = 5219) Negative Negative CMV IgG Int (test code = 5217) Positive Negative A Lab Interpretation (test code = Abnormal 32824-6) MD BlackwellCardiac [id number] 00:37:25 Test Item Value Reference Range Interpretation Comments CK (test code = 5206) 156 U/L 39-308 CK MB (test code = 11.0 ng/mL See_Comment H [Automat ed message] 5209) The system [employer] generated this result transmitted ref erence range: [...] res ults. [Automated mess age] The system [employer] generated this result transmitted ref erence range: <=18. Th e reference range was not used to int erpret this result as normal/abnormal . Lab Interpretation Abnormal (test code = 72383-7) MD Samson B Core Total [id number] 19:09:04 Test Item Value Reference Range Interpretation Comments HBc Total Ab-[place] (test Positive Negative A If c linically code = 56075-8) indicated, t esting for Hepatitis B Cor eIgM antibody is nec essary to differentiat e between acutean d past HBV infection. Test Performed by:Gabriella coyle [facility] [employer] i[address], [place], [place] [address]Wac Dir inés: Jaycob laughlin M.D. Ph.D.; CLIA# [id number] Lab Interpretation Abnormal (test code = 01608-8) MD Samson B Surface Ag w/[id number] 18:50:01 Test Item Value Reference Range Interpretation Comments Hep Bs Ag-[place] Negative Negative Test Perform ed by:[place] (test code = [facility] - 5196-1) [place] [employer] [address] [employer] [place], [place] [address]Jjn Director: John Izaguirre M.D. Ph. D.; CLIA# [id number] MD BlackwellKeila HIV 1/2 Ag&Ab Path [id number] 15:57:28 Test Item Value Reference Range Interpretation Comments HIV 1/2 Ag&Ab Negative for Interp (test HIV-1 antigen and code = 9394) HIV-1/HIV-2 ____ALECIAANA OSIRIS IA antibodies. No DHAVAL GUTIERREZ MD laboratory - 40822Nzcfrhcz by: evidence of HIV ROM MARIA T Sumeet infection. If DHAVAL GUTIERREZ MD acute HIV - 84214Qyhjcvar infection is Date/Time: 01.28 suspected, 9:57 AM 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 consider testing Transcribed Date/Time: for HIV-1 RNA. 02.25.2021 9: 57 AM CSTElectronical ly Signed By: ROM SANTACRUZ MD - [id number] on 9:57 AM C MD [place] RPR Path [id number] 15:57:27 Test Item Value Reference Interpretation Comments Range TMP RPR Path The Rapid Interpretation Plasma Reagin (test code = (RPR) assay is NENA TINEO 069598) negative. If a DUDLEY Whitley syphilis [place] BRENDA - [place] [address]Nrbyzpll b y: suspected, ROM TINEO please perform DHAVAL fay Treponemal MD BRENDA - specific 71031Klvzcqge screening Date/Time: 01.28 assay. 9:57 AM 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 Transcribed Rajendra e/Time: 02.25.2021 9:57 AM CSTElectronical ly Signed By: ALECIA GUTIERREZ MD - 143 02 on 02.25.2021 9:57 AM Jack [place]valles HCV Ab Path [id number] 15:56:11 Test Item Value Reference Range Interpretation Comments HCV Ab Path There is NO Interp (test serologic code = 8923) evidence of ____ROM ANAYA Hepatitis C DHAVAL SANTACRUZ MD virus antibody. - 90488Qxotn [place] by: ROM SANTACRUZ MD - 35020Gwocsmys Date/Time: 01.28 9:56 AM 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 Transcribed Rajendra e/Time: 02.25.2021 9:56 AM CSTElectronical ly Signed By: ROM SANTACRUZ MD - [id number] on 9:56 AM C MD Wilcox Plasma Reagin (RPR) [Syphilis SCREENING]2021-02-25 06:20:21 Test Item Value Reference Range Interpretation Comments RPR Screening (test code = Non Reactive Non Reactive 266694) MD BlackwellHepatitis C Virus [id number] 03:11:01 Test Item Value Reference Range Interpretation Comments HCVAb. (test Non Reactive Non Reactive Antibody detect ion in the code = 5762) immunocompromis ed and immunosuppresse d population may be delayed or absent entirely. There fore serial testing, correl ation with other clinical findings, and supplementa l testing (if available) should be taken into cons ideration when interpreti ng the results.Perform ed at: [facility] [address] [address] MD BlackwellHIV-1/2 Antigen and Antibodies, Fourth [id number] 02:11:00 Test Item Value Reference Range Interpretation Comments HIV 1/2 Ag & Ab, Non Reactive Non Reactive Performed a t: 4th Gen (test code [facility] = 9280) [address] [address] MD BlackwellNT-Pro BNP (In-House)2021-02-24 22:57:30 Test Item Value Reference Range Interpretation Comments NT ProBNP (test code = 11564 pg/mL See_Comment H [Aut omated 9357) message] The sy stem which generated this result transmitted reference range : <=450. The reference range was not used to interpret this result as normal/abnormal . Lab Interpretation Abnormal (test code = 40197-7) MD BlackwellLipid [id number] 22:55:59 Test Item Value Reference Range Interpretation Comments Chol (test code = 137 mg/dL See_Comment ATP III Cl assification 5283) of Total Choles terol Primary Target of Therapy (in mg/dL):<200 Dhcurdjcs997-91 9 Borderline high >=240 High [Auto mated message] The sy stem which generated this result transmit [place] reference range : <=199. The refe rence range was not u sed to interpret this result as normal/abnor mal. Trig (test code = 114 mg/dL See_Comment ATP III Cl assification 7655) of Serum Trigly cerides Primary Target of Therapy (in mg/dL):<150 Kcqlkg719-940 Borderline high 200-499 High>=500 Very highNon-fa sting triglycerides > 200 mg/dL may be fo llowed up with a fasti ng Lipid Panel. Calculated LDL- C may be falsely decr eased when non-fastin g triglycerides > 200 mg/dL. [Automa [place] message] The [employer] stem which generated this result transmit [place] reference range : <=149. The refe rence range was not u sed to interpret this result as normal/abnor mal. HDL (test code = 5763) 24 mg/dL See_Comment L [Aut omated message] The system [employer] generated this result transmitted ref erence range: >=40. Th e reference range was not used to int erpret this result as normal/abnormal . LDL (test code = 6123) 90 mg/dL See_Comment ATP I II Classification of LDL Choleste rol Primary Target of Therapy (in mg/dL):<100 Vcudorr037-532 Near optimal/above qtadaxb104-009 Borderline high 160-189 High>=190 Very high [Automated mess age] The system [employer] generated this result transmitted ref erence range: <=100. T he reference range was not used to int erpret this result as normal/abnormal . VLDL (test code = 23 mg/dL 7986) Lab Interpretation Abnormal (test code = 90937-2) MD BlackwellHemoglobin [id number] 21:03:08 Test Item Value Reference Range Interpretation Comments A1C (test code = 5.2 % 4.3-5.6 HbA1c value s >=6.5% are 4632) diagnostic of d iabetes mellitus.Diagno sis should be confirmed by repeat testing.Therape uti Action suggested: >8.0 % HbA1c; Goal oftherapy: <7.0% HbA1c MD BlackwellBeta 2 [id number] 19:21:56 Test Item Value Reference Range Interpretation Comments Beta2 Microglob (test code = 5090) 2.7 mg/L 0.8-2.3 H Lab Interpretation (test code = Abnormal 22356-6) MD BlackwellNpgfpdoyFtH1061-85-24 19:21:55 Test Item Value Reference Range Interpretation Comments IgM (test code = 6023) 331 mg/dL 35-242 H Lab Interpretation (test code = Abnormal 03149-5) MD BlackwellJygsbzwtVrB7759-16-00 19:21:54 Test Item Value Reference Range Interpretation Comments IgG (test code = 6001) 885 mg/dL 610-1616 MD BlackwellKartnpzbAnB7711-30-04 19:21:53 Test Item Value Reference Range Interpretation Comments IgA (test code = 5992) 225 mg/dL 85-499 MD BlackwellTMP Interpretation [id number] 14:32:51 Test Item Value Reference Range Interpretation Comments TMP Interp Patient red blood RAJENDRA (test cells demonstrate code = 7552) no evidence of ROM TINEO detectable IgG DHAVAL GUTIERREZ MD antibodies or - [id number] d by: complement. ROM SANTACRUZ MD - [id number] Date/Time: 01.28 8:32 AM 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 Transcribed Rajendra e/Time: 02.24.2021 8:32 AM CSTElectronical ly Signed By: ALECIA GUTIERREZ MD - 143 02 on 02.24.2021 8:32 AM C MD BlackwellDirect Antiglobulin [id number] 01:57:14 Test Item Value Reference Range Interpretation Comments RAJENDRA Result (test code = IgG neg,C3 neg 02707-3) MD BlackwellVitamin D [id number] 00:21:35 Test Item Value Reference Range Interpretation Comments Vitamin D 25 OH (test 28 ng/mL 30-100 L Refere nce Range: code = 8018) Deficiency: <10 ng/mLInsufficie ncy: 10-29 ng/mLSufficienc y: 30-100 ng/mLPotential toxicity: >10 0 ng/mL Lab Interpretation (test Abnormal code = 62753-1) MD BlackwellTotal [id number] 00:18:25 Test Item Value Reference Range Interpretation Comments Total Protein (test code = 7649) 6.4 g/dL 6.4-8.3 MD BlackwellElectrolyte [id number] 00:18:20 Test Item Value Reference Range Interpretation [...] = 14 See_Comment [Aut omated message] The 9398) system which ge nerated this result tra nsmitted reference range : 4 - 14 mEq/L. The refe rence range was not u sed to interpret this result as normal/abnormal . MD BlackwellGdjmyijrPAR8179-62-47 00:18:16 Test Item Value Reference Range Interpretation Comments TSH (test code = 1.62 See_Comment [Automated message] The 7578) system which ge nerated this result transmit valentina reference range : 0.27 - 4.20 mcunit/mL. The reference range was not used to interpr et this result as abbey l/abnormal. MD BlackwellYdtwcfejK22077-48-91 00:18:14 Test Item Value Reference Range Interpretation Comments T4 (test code = 7493) 7.0 See_Comment [Auto mated message] The system which ge nerated this result transmit valentina reference range : 4.5 - 11.7 mcg/dL. The ref erence range was not used to interpret this result as normal/abnormal . MD BlackwellHTLV I/II [id number] 00:04:02 Test Item Value Reference Range Interpretation Comments HTLVI/II Ab Received See Note HTLV I/ II Ab was sent (test code = 28998) to a ref erence lab for testing. Expec t results on HTLV I/II Ab Screen with Confirm within 96 hours . MD Domínguezpatitis B Surface [id number] 00:04:01 Test Item Value Reference Range Interpretation Comments HBsAg Received (test See Note HBsAg w as sent to a code = 95324) reference lab for testing. Expec t results on Hepa titis B Surface Antigen w/ Confirm within 96 hours. MD Samson B Total Ig Core Ab (SCREENING) (anti-HBc total Ig; HBcAb total Ig)2021-02-24 00:04:00 Test Item Value Reference Range Interpretation Comments HBcAb Received (test See Note HBcAb w as sent to a code = 96775) reference lab for testing. Expec t results on Hepa titis B Core Total Ab w ithin 96 hours. MD BlackwellCOVID-19 (SARS-CoV-2)Iuuslbgpjfkk-AR1215-23-29 23:59:26 Test Item Value Reference Range Interpretation Comments COVID19 Not Detected Not Detected (SARS-CoV-2) (test code = 12836-9) COVID19 SARS Inpatient Indication (test Admission code = 01199) Covid 19 Comment See Note The kayla S ARS-CoV-2 (test code = [place] [address]) use on the christiano s Flak[employer] System [...] sheet for patie nts provided by the cane flume watcher ([employer]) can be rev iewed at: https://www.fda .gov/m edia/036309/michael nload. A fact sheet fo r Health Care pro viders is provided by the cane flume watcher ([employer]) and can be reviewed at: https://www.fda .gov/m edia/258399/michael nload Results must be interpreted wit hin [...] is assay has been authorized by t [employer] for use only un jonas Emergency Use Authorization ( EUA) in laboratories that have been CLIA-certified to perform moderate-comple xity and high-comple xity tests. The Microbiology Laboratory at [facility], CLIA Accreditation #[id number] and CAP Accreditation #[id number], verif ied the performance characteristics of this assay. Int ernal controls are us ed to monitor all sta ges of the test proces s. MD BlackwellPOC-Glucose jnrbq8601-01-11 11:42:00 Test Item Value Reference Range Interpretation Comments POC-Glucose Meter (test 106 mg/dL 70-110 : [facility] [address] [place] [address], [facility] 30: Core Drill Operator Helper/Techni jenifer ID = [id number] for [facility] Lab Interpretation (test Normal code = 91803-0) [facility] [place]PO-Glucose xsoef2409-71-06 11:42:00 Test Item Value Reference Range Interpretation Comments POC-Glucose Meter (test 106 mg/dL 70-110 : [facility] code = 1538) [address] [place] [address], [facility] 30: Core Drill Operator Helper/Techni jenifer ID = [id number] for [facility] Lab Interpretation (test Normal code = 61139-9) [facility] [place]PO-Glucose injsg0718-17-67 11:42:00 Test Item Value Reference Range Interpretation Comments POC-Glucose Meter (test 106 mg/dL 70-110 : [facility] code [facility] 1538) [address] [place] [address], [facility] 30: Core Drill Operator Helper/Techni jenifer ID = [id number] for [facility] Lab Interpretation (test Normal code = 49397-2) [facility] SacramentoPOCT-GLUCOSE [id number] 11:42:00 Test Item Value Reference Range Interpretation Comments POC-GLUCOSE METER 106 mg/dL 70-110 : TESTED A T [facility] 6720 (BEAKER) (test code = [place], 1538) [address]: Core Drill Operator Helper/Techni jenifer ID = [id number] for ISIAH COLLINS POCT-GLUCOSE [id number] 07:59:00 Test Item Value Reference Range Interpretation Comments POC-GLUCOSE METER 98 mg/dL 70-110 : TESTED A T [facility] 6720 (BEAKER) (test code = AUDREY Whitley [facility], 1538) [address]: Core Drill Operator Helper/Techni jenifer ID = [id number] for ISIAH MANRIQUEZ [id number] 06:20:00 Test Item Value Reference Range Interpretation Comments Magnesium (test code = 2.1 mg/dL 1.6-2.6 22379-1) GRABIEL (test code = GRABIEL) Core Drill Operator Helper ID - BS Lab Interpretation (test Normal code = 59734-4) [facility] SacramentoBasic metabolic [id number] 06:20:00 Test Item Value Reference Range Interpretation [...] Calcium (test code = 9.4 mg/dL 8.4-10.2 06762-1) EGFR (test code = 93 mL/min/1.73 [place] [address]-8) NOT ACCURATE CREATININE CLEARANCE IN PREDICTING GLOMERULAR FILTRATION RATE . ESTIMATED GFR I S NOT APPLICABLE FOR DIALYSIS PATIENTS. GRABIEL (test code = GRABIEL) Core Drill Operator Helper ID - BS Lab Interpretation Abnormal (test code = 13714-1) [facility] SacramentoMagnesium2021-08-04 06:20:00 Test Item Value Reference Range Interpretation Comments Magnesium (test code = 2.1 mg/dL 1.6-2.6 09343-1) GRABIEL (test code = GRABIEL) Core Drill Operator Helper ID - BS Lab Interpretation (test Normal code = 68806-7) [facility] metabolic [id number] 06:20:00 Test Item Value Reference Range Interpretation [...] Calcium (test code = 9.4 mg/dL 8.4-10.2 09616-7) EGFR (test code = 93 mL/min/1.73 sq [place] [address]-0) NOT ACCURATE CREATININE CLEARANCE IN PREDICTING GLOMERULAR FILTRATION RATE . ESTIMATED GFR I S NOT APPLICABLE FOR DIALYSIS PATIENTS. GRABIEL (test code = GRABIEL) Core Drill Operator Helper ID - BS Lab Interpretation Abnormal (test code = 52713-6) [facility] Test Item Value Reference Range Interpretation Comments Magnesium (test code = 2.1 mg/dL 1.6-2.6 70391-0) GRABIEL (test code = GRABIEL) Core Drill Operator Helper ID - BS Lab Interpretation (test Normal code = 15759-3) [facility] metabolic wmrie6828-42-79 06:20:00 Test Item Value Reference Range Interpretation [...] Calcium (test code = 9.4 mg/dL 8.4-10.2 39886-8) EGFR (test code = 93 mL/min/1.73 [place] [address]-3) NOT ACCURATE CREATININE CLEARANCE IN PREDICTING GLOMERULAR FILTRATION RATE . ESTIMATED GFR I S NOT APPLICABLE FOR DIALYSIS PATIENTS. GRABIEL (test code = GRABIEL) Core Drill Operator Helper ID - BS Lab Interpretation Abnormal (test code = 79838-8) [facility] METABOLIC [id number] 06:20:00 Test Item Value Reference Range Interpretation [...] S NOT APPLICABLE FOR DIALYSIS PATIEN TS. Core Drill Operator Helper ID - IAICLAKIYOU8656-24-09 06:20:00 Test Item Value Reference Range Interpretation Comments MAGNESIUM (BEAKER) (test code = 2.1 mg/dL 1.6-2.6 627) Core Drill Operator Helper ID - BSCBC (Hemogram only)2020-09-29 05:40:00 Test Item Value Reference Range Interpretation Comments WBC (test code = 6690-2) 3.9 See_Comment [A utomated message] The system [employer] generated this result transmitted ref erence range: 3.5 - 10 .5 K/L. The refe rence range was not u sed to interpret this result as normal/abnor mal. RBC (test code = 789-8) 4.16 See_Comment L [Au tomated message] The system [employer] generated this result transmitted ref erence range: 4.63 - 6 .08 M/L. The refe rence range was not u sed to interpret this result as normal/abnor mal. MCHC (test code = 786-4) 31.3 See_Comment L [A utomated message] The system [employer] generated this result transmitted ref erence range: [...] See_Comment [Aut omated message] 777-3) The system [employer] generated this result transmitted ref erence range: 150 - 45 0 K/CU MM. The referen ce range was not u sed to interpret this result as normal/abnor mal. MPV (test code = 10.4 fL 9.4-12.4 39486-0) nRBC (test code = 413) 0 See_Comment [Aut omated message] The system [employer] generated this result transmitted ref erence range: 0 - 0 /1 00 WBC. The refere nce range was not u sed to interpret this result as normal/abnor mal. Lab Interpretation (test Abnormal code = 44984-8) [facility] (Hemogram only)2020-09-29 05:40:00 Test Item Value Reference Range Interpretation Comments WBC (test code = 6690-2) 3.9 See_Comment [A utomated message] The system [employer] generated this result transmitted ref erence range: 3.5 - 10 .5 K/L. The refe rence range was not u sed to interpret this result as normal/abnor mal. RBC (test code = 789-8) 4.16 See_Comment L [Au tomated message] The system [employer] generated this result transmitted ref erence range: 4.63 - 6 .08 M/L. The refe rence range was not u sed to interpret this result as normal/abnor mal. MCHC (test code = 786-4) 31.3 See_Comment L [A utomated message] The system [employer] generated this result transmitted ref erence range: [...] See_Comment [Aut omated message] 777-3) The system [employer] generated this result transmitted ref erence range: 150 - 45 0 K/CU MM. The referen ce range was not u sed to interpret this result as normal/abnor mal. MPV (test code = 10.4 fL 9.4-12.4 76182-3) nRBC (test code = 413) 0 See_Comment [Aut omated message] The system [employer] generated this result transmitted ref erence range: 0 - 0 /1 00 WBC. The refere nce range was not u sed to interpret this result as normal/abnor mal. Lab Interpretation (test Abnormal code = 19196-1) [facility] (Hemogram only)2020-09-29 05:40:00 Test Item Value Reference Range Interpretation Comments WBC (test code = 6690-2) 3.9 See_Comment [A utomated message] The system [employer] generated this result transmitted ref erence range: 3.5 - 10 .5 K/L. The refe rence range was not u sed to interpret this result as normal/abnor mal. RBC (test code = 789-8) 4.16 See_Comment L [Au tomated message] The system [employer] generated this result transmitted ref erence range: 4.63 - 6 .08 M/L. The refe rence range was not u sed to interpret this result as normal/abnor mal. MCHC (test code = 786-4) 31.3 See_Comment L [A utomated message] The system [employer] generated this result transmitted ref erence range: [...] See_Comment [Aut omated message] 777-3) The system [employer] generated this result transmitted ref erence range: 150 - 45 0 K/CU MM. The referen ce range was not u sed to interpret this result as normal/abnor mal. MPV (test code = 10.4 fL 9.4-12.4 37469-2) nRBC (test code = 413) 0 See_Comment [Aut omated message] The system [employer] generated this result transmitted ref erence range: 0 - 0 /1 00 WBC. The refere nce range was not u sed to interpret this result as normal/abnor mal. Lab Interpretation (test Abnormal code = 87868-2) [facility] (HEMOGRAM ONLY)2020-09-29 05:40:00 Test Item Value Reference [...] 0-0 (BEAKER) (test code = 413) POCT-GLUCOSE [id number] 22:41:00 Test Item Value Reference Range Interpretation Comments POC-GLUCOSE METER 97 mg/dL 70-110 : TESTED A T [facility] 6720 (BEAKER) (test code = [place], 1538) [address]: Core Drill Operator Helper/Techni jenifer ID = [id number] for Stam per, [place] U/S, ABDOMINAL, [id number] 17:39:00Abdomen limited area? Add comment if clarification is needed.->Gall BladderReason for exam:->epigastric pain [facility] 1935 Sex: MFINAL [...] right upper quadrant ultrasound.. Signed: Nayely Alvarez [facility] Verified Date/Time: 09/28/2020 17:39:04 US abdomen [id number] 17:39:00Interface, External Ris In - 09/28/2020 5:44 [...] NAYELY ALVAREZ MD on 09/28/2020 05:39 [facility] 11:24[facility]00 Test Item Value Reference Range Interpretation Comments PTT (test code = 78.0 See_Comment H [Automated message] 82771-0) The system [employer] generated this result transmitted ref erence range: 22.5 - 3 6.0 seconds. The reference range was not used to int erpret this result as normal/abnormal . Lab Interpretation (test Abnormal code = 10507-4) [facility]00 Test Item Value Reference Range Interpretation Comments PTT (test code = 78.0 See_Comment H [Automated message] 87830-8) The system [employer] generated this result transmitted ref erence range: 22.5 - 3 6.0 seconds. The reference range was not used to int erpret this result as normal/abnormal . Lab Interpretation (test Abnormal code = 88583-9) [facility] [place]2021-[facility]03 11:24:00 Test Item Value Reference Range Interpretation Comments PTT (test code = 78.0 See_Comment H [Automated message] 91513-6) The system [employer] generated this result transmitted ref erence range: 22.5 - 3 6.0 seconds. The reference range was not used to int erpret this result as normal/abnormal . Lab Interpretation (test Abnormal code = 61448-4) [place] 51244021-08-03 11:24:00 Test Item Value Reference Range Interpretation Comments PARTIAL THROMBOPLASTIN TIME 78.0 seconds 22.5-36.0 H (BEAKER) (test code = 760) POCT-GLUCOSE [id number] 07:58:00 Test Item Value Reference Range Interpretation Comments POC-GLUCOSE METER 102 mg/dL 70-110 : TESTED A T [facility] 6720 (BEAKER) (test code = [place], 1538) [address]: Core Drill Operator Helper/Techni jenifer ID = [id number] for Alexandra casas (contract), Kalpesh ice BASIC METABOLIC [id number] 07:24:00 Test Item Value Reference Range Interpretation [...] S NOT APPLICABLE FOR DIALYSIS PATIEN TS. Core Drill Operator Helper ID - PIAYA FMDXOUHGXB7052-27-86 07:24:00 Test Item Value Reference Range Interpretation Comments MAGNESIUM (BEAKER) (test code = 2.1 mg/dL 1.6-2.6 627) Core Drill Operator Helper ID - PIAYA LCBC (HEMOGRAM ONLY)2020-09-28 06:59:00 [...] WBC 0-0 (BEAKER) (test code = 413) [id number] 01:15:00 Test Item Value Reference Range Interpretation Comments PARTIAL THROMBOPLASTIN TIME 32.7 seconds 22.5-36.0 (BEAKER) (test code = 760) POCT-GLUCOSE [id number] 16:51:00 Test Item Value Reference Range Interpretation Comments POC-GLUCOSE METER 107 mg/dL 70-110 : TESTED A T [facility] 6720 (BEAKER) (test code = AUDREY Whitley [facility], 1538) [address]: Core Drill Operator Helper/Techni jenifer ID = [id number] for Bi Suzanne mcclain ECG 12 [id number] 15:06:28Interface, External Ris In - 09/27/2020 3:06 PM CDTVentricular Rate 74 BPMAtrial Rate 74 BPMP-R Interval 366 msQRS Duration 78 msQ-T Interval 394 msQTC Calculation(Bazett) 437 msP Aguirre 61 degreesR Aguirre 66 degreesT Aguirre 196 degreesSinus rhythm with 1st degree A-V blockMinimal ST depression and T wave inversion in I, II and aVL with mild ST elevation in aVR consider ischemiaAbnormal ECGNo previous ECGs availableConfirmed by MD LUZ, ANDREI (190) on 09/27/2020 3:06:24 [facility]/Doppler(CW/PW/Color)2020-09-27 14:02:33[facility]SWE[facility] E[facility]ART[facility] MKCKESSON CPACSInterface, External Ris In - 09/27/2020 2:02 PM CDTTransthoracic Echocardiography Report (TTE) Demographics Patient Name JERE GAYTAN Date ofStudy 09/27/2020 DARLIN Gender Male Visit Number [id number] Race Unknown RoomNumber 8A07 Number Date of 1935 Referring Franky Mantilla Physician Age 85 year(s) Videotape Recording Engineer Darlene Lares [facility] Tool Turret Lathe Set Up Operator Jovanni Benz Interpreting [facility] Physician James [...] CI: 1.93 l/min/m[facility] Qsqeyb9J Echo W/Doppler(CW/PW/Color)2020-09-27 14:02:33Ejection FractionSLEH ECHO HEARTLAB [facility]2D Echo W/Doppler(CW/PW/Color) 2020-09-27 14:02:33Ejection FractionSLEH ECHO HEARTLAB [facility]As[facility]omatic ONLY)2020-09-27 13:03:00 Test Item Value Reference Range Interpretation Comments SARS-COV2/RT-PCR Negative Not Detected, (test code = Negative, See 43784-7) external report for linked test SARS-COV-2 [facility] JIMENEZ PERFORMING LAB (test code = 42559-0) GRABIEL (test code = Negative result for [...] of the Act. Fact Sheet for Healthcare Providers:https://www.Einspectl.Aliveshoes/sites/default/f carmen/product/documents/F act_Sheet_HC_Providers_L vut_IMKU-PqV-9.pdf Fact Sheet for Healthcare Patients:https://www.Likely.co/sites/default/fi les/product/documents/Fa ct_Sheet_Patients_Ly_S ARS-CoV-2.pdf Performing Laboratory:[facility] [place] [address] [facility] (Asymptomatic ONLY)2020-09-27 13:03:00 Test Item Value Reference Range Interpretation Comments SARS-COV2/RT-PCR Negative Not Detected, (test code = Negative, See 03002-7) external report for linked test SARS-COV-2 [facility] JIMENEZ PERFORMING LAB (test code = 31724-1) GRABIEL (test code = Negative result for [...] of the Act. Fact Sheet for Healthcare Providers:https://www.Lamppost/sites/default/f carmen/product/documents/F act_Sheet_HC_Providers_L jli_NMIP-RmH-0.pdf Fact Sheet for Healthcare Patients:https://www.Likely.co/sites/default/fi les/product/documents/Fa ct_Sheet_Patients_Lyra_S ARS-CoV-2.pdf Performing Laboratory:[facility] [place] [address] [facility] (Asymptomatic ONLY)2020-09-27 13:03:00 Test Item Value Reference Range Interpretation Comments SARS-COV2/RT-PCR Negative Not Detected, (test code = Negative, See 73918-3) external report for linked test SARS-COV-2 [facility] JIMENEZ PERFORMING LAB (test code = 34385-7) GRABIEL (test code = Negative result for [...] of the Act. Fact Sheet for Healthcare Providers:https://www.Lamppost/sites/default/f carmen/product/documents/F act_Sheet_HC_Providers_L ccr_TLOU-IfS-6.pdf Fact Sheet for Healthcare Patients:https://www.Likely.co/sites/default/fi les/product/documents/Fa ct_Sheet_Patients_Lyra_S ARS-CoV-2.pdf Performing Laboratory:[facility] [place] [address] [facility]ARS[facility]OV2/[facility]-PCR ([facility])2020-09-27 13:03:00 Test Item Value Reference Range Interpretation Comments SARS-COV2/RT-PCR (test Negative Not Detected, Negative, code = 8897686) See external report for linked test SARS-COV-2 PERFORMING LAB [facility] JIMENEZ (test code = 0708169) Negative result for this test determines that [...] 564(g) of the Act.Fact Sheet for Healthcare Providers:https://www.BookShout!/sites/default/files/product/documents/Fact_Shee y_HW_Kttqjnqwt_Gesc_ZKZC-GoM-3.pdfFact Sheet for Healthcare Patients:https://www.BookShout!/sites/default/files/product/ documents/Fyzl_Qqbtn_Dubbarqu_Shil_RDOG-BeU-7.pdfPerforming Laboratory:[address], [place] [address]RCXW-APXYLNP METER 2020-09-27 11:29:00 Test Item Value Reference Range Interpretation Comments POC-GLUCOSE METER 124 mg/dL 70-110 H : Notified RN/MD: (IMANI) (test code = TESTED AT [place] [address] 1538) [facility], [address]: Core Drill Operator Helper/Techni jenifer ID = [id number] for PH INMALINDAE, DARRYL POCT-GLUCOSE [id number] 08:54:00 Test Item Value Reference Range Interpretation Comments POC-GLUCOSE METER 135 mg/dL 70-110 H : TESTED A T [place] [address] (IMANI) (test code = [facility], 1538) [address]: Core Drill Operator Helper/Techni jenifer ID = [id number] for PH INISEE, DARRYL Vitamin B12 and Adswtl6351-57-13 05:55:00 Test Item Value Reference Range Interpretation Comments Vitamin B12 (test 578 pg/mL 213-816 code = 2132-9) Folate (test code = 18.00 ng/mL See_Comment [Automa valentina 2284-8) message] The system which generated this result transmit valentina reference range : >=7.00. The reference range was not used to interpret this result as normal/abnormal . GRABIEL (test code = GRABIEL) Core Drill Operator Helper ID - [facility] Lab Interpretation Normal (test code = 15217-3) [facility] [place]2021-[facility]-02 05:55:00 Test Item Value Reference Range Interpretation Comments Ferritin (test code = 35.96 ng/mL 5.00-275.00 2276-4) GRABIEL (test code = GRABIEL) Core Drill Operator Helper ID - [facility] Lab Interpretation (test Normal code = 29332-8) [facility] SacramentoV[facility] B12 and Nxqfml2501-32-68 05:55:00 Test Item Value Reference Range Interpretation Comments Vitamin B12 (test 578 pg/mL 213-816 code = 2132-9) Folate (test code = 18.00 ng/mL See_Comment [Automa valentina 2284-8) message] The system which generated this result transmit valentina reference range : >=7.00. The reference range was not used to interpret this result as normal/abnormal . GRABIEL (test code = GRABIEL) Core Drill Operator Helper ID - [facility] Lab Interpretation Normal (test code = 66219-2) [facility] [place]Fer[facility]2021-08-02 05:55:00 Test Item Value Reference Range Interpretation Comments Ferritin (test code = 35.96 ng/mL 5.00-275.00 2276-4) GRABIEL (test code = GRABIEL) Core Drill Operator Helper ID - [facility] Lab Interpretation (test Normal code = 19294-2) [facility] SacramentoV[facility] B12 and Mltnvh4117-69-82 05:55:00 Test Item Value Reference Range Interpretation Comments Vitamin B12 (test 578 pg/mL 213-816 code = 2132-9) Folate (test code = 18.00 ng/mL See_Comment [Automa valentina 2284-8) message] The system which generated this result transmit valentina reference range : >=7.00. The reference range was not used to interpret this result as normal/abnormal . GRABIEL (test code = GRABIEL) Core Drill Operator Helper ID [facility] Lab Interpretation Normal (test code = 78679-5) [facility] SacramentoFerritin2021-08-02 05:55:00 Test Item Value Reference Range Interpretation Comments Ferritin (test code = 35.96 ng/mL 5-275 2276-4) GRABIEL (test code = GRABIEL) Core Drill Operator Helper ID Rip Grajeda Lab Interpretation (test Normal code = 17568-3) [facility] SacramentoFERRITIN2021-08-02 05:55:00 Test Item Value Reference Range Interpretation Comments FERRITIN (BEAKER) (test code = 35.96 ng/mL 5.00-275.00 361) Core Drill Operator Helper AIYANA ELIZABETH MVITAMIN B12 AND [id number] 05:55:00 Test Item Value Reference Range Interpretation Comments VITAMIN B12 578 pg/mL 213-816 (BEAKER) (test code = 774) FOLATE (BEAKER) 18.00 ng/mL See_Comment [Automated message] (test code = 362) The system which generated this result transmitted ref erence range: >=7.00. The reference range was not used to interpr et this result as normal/abnormal . Core Drill Operator Helper AIYANA Saldanaon, TIBC, % sat. (without ferritin)2020-09-27 05:10:00 Test Item Value Reference Range Interpretation Comments Iron (test code = 2498-4) 37.0 ug/dL 40-160 L TIBC (test code = 2500-7) 404 ug/dL 250-450 Iron % Saturation (test 9 % 20-55 L code = 2502-3) GRABIEL (test code = GRABIEL) [employer] Dr[employer] Operator Helper AIYANA Grajeda Lab Interpretation (test Abnormal code = 91543-9) [facility] [place] [place], % sat. (without ferritin)2020-09-27 05:10:00 Test Item Value Reference Range Interpretation Comments Iron (test code = 2498-4) 37.0 ug/dL 40.0-160.0 L TIBC (test code = 2500-7) 404 ug/dL 250-450 Iron % Saturation (test 9 % 20-55 L code = 2502-3) GRABIEL (test code = GRABIEL) Core Drill Operator Helper ID Rip Grajeda Lab Interpretation (test Abnormal code = 27916-1) [facility] [place], TIBC, % sat. (without ferritin)2020-09-27 05:10:00 Test Item Value Reference Range Interpretation Comments Iron (test code = 2498-4) 37.0 ug/dL 40.0-160.0 L TIBC (test code = 2500-7) 404 ug/dL 250-450 Iron % Saturation (test 9 % 20-55 L code = 2502-3) GRABIEL (test code = GRABIEL) Core Drill Operator Helper ID Rip Grajeda Lab Interpretation (test Abnormal code = 23079-8) [facility] [place], TIBC, % SAT. (WITHOUT FERRITIN)2020-09-27 05:10:00 Test Item Value Reference Range Interpretation Comments IRON (BEAKER) (test code = 547) 37.0 ug/dL 40.0-160.0 L TOTAL IRON BINDING CAPACITY 404 ug/dL 250-450 (BEAKER) (test code = 769) IRON % SATURATION (2) (BEAKER) 9 % 20-55 L (test code = 2590) [employer] Dr[employer] Operator Helper ID - CLARA MBASIC METABOLIC [id number] 04:39:00 Test Item Value Reference Range Interpretation [...] S NOT APPLICABLE FOR DIALYSIS PATIEN TS. Core Drill Operator Helper ID - CLARA [id number] 04:39:00 Test Item Value Reference Range Interpretation Comments MAGNESIUM (BEAKER) (test code = 2.3 mg/dL 1.6-2.6 627) Core Drill Operator Helper ID - CLARA [facility]BC (HEMOGRAM ONLY)2020-09-27 04:22:00 [...] 0-0 (BEAKER) (test code = 413) POCT-GLUCOSE [id number] 23:19:00 Test Item Value Reference Range Interpretation Comments POC-GLUCOSE METER 109 mg/dL 70-110 : TESTED A T [facility] 6720 (BEAKER) (test code = [place], 1538) [address]2839: Core Drill Operator Helper/Techni jenifer ID = [id number] for FRANCIA SANCHES [id number] 13:27:00 Test Item Value Reference Range Interpretation Comments PARTIAL THROMBOPLASTIN TIME 75.7 seconds 22.5-36.0 H (BEAKER) (test code = 760) Hemoglobin [id number] 08:25:00 Test Item Value Reference Range Interpretation Comments Hemoglobin A1C (test code = 4548-4) 6.7 % 4.3-6.1 H Lab Interpretation (test code = Abnormal 99496-7) [facility] [place] [id number] 08:25:00 Test Item Value Reference Range Interpretation Comments Hemoglobin A1C (test code = 4548-4) 6.7 % 4.3-6.1 H Lab Interpretation (test code = Abnormal 69755-9) [facility] [place] [id number] 08:25:00 Test Item Value Reference Range Interpretation Comments Hemoglobin A1C (test code = 4548-4) 6.7 % 4.3-6.1 H Lab Interpretation (test code = Abnormal 56646-4) [facility] [place] [id number] 08:25:00 Test Item Value Reference Range Interpretation Comments HEMOGLOBIN A1C (BEAKER) (test code = 6.7 % 4.3-6.1 H 368) RAD, CHEST, 1 VIEW, NON [id number] 08:15:00Reason for exam:->shortness of breath Should this be performed at the bedside?->[facility] 1935 Sex: MFINAL REPORT INDICATION: shortness of breath COMPARISON: None ANTON HNIQUE: Single frontal view of the chest. FINDINGS: Lungs and pleura: Clear lungs. No effusion.Heartand mediastinum: Normal heart size. Unremarkable mediastinal contours.Osseous structures: No acute abnormality.Other: None. IMPRESSION: No acute intrathoracic abnormality. Signed: Yaneth Vaughn MDReport Verified Date/Time: 09/26/2020 08:15:42 Reading Location: [address] Neuro Reading Room XR chest 1 view portable / [id number] 08:15:00 Interface, External Ris In - 09/26/2020 8:17 AM CDTFINAL REPORT INDICATION: shortness of breath COMPARISON: None TECHNIQUE: Single frontal view of the chest. FINDINGS: Lungs andpleura: Clear lungs. No effusion.Heart and mediastinum: Normal heart size. Unremarkable mediastinal c ontours.Osseous structures: No acute abnormality.Other: None. IMPRESSION: No acute intrathoracic abnormality. Signed: Yaneth Vaughn MDReport Verified Date/Time: 09/26/2020 08:15:42 Reading Location: [address] Neuro Reading Room [facility], [id number] 07:15:00 Test Item Value Reference Range Interpretation Comments ABO Grouping (test code = 2588) B Rh Factor (test code = 2589) POS [facility], [id number] 07:15:00 Test Item Value Reference Range Interpretation Comments ABO Grouping (test code = 2588) B Rh Factor (test code = 2589) POS [facility], [id number] 07:15:00 Test Item Value Reference Range Interpretation Comments ABO Grouping (test code = 2588) B Rh Factor (test code = 2589) [facility] [place], [id number] 06:19:00 Test Item Value Reference Range Interpretation Comments ABO/RH AUTOMATED (BEAKER) (test B POSITIVE code = 2260) Ab Scrn (test code = 890-4) NEGATIVE [facility] [place], [id number] 06:19:00 Test Item Value Reference Range Interpretation Comments ABO/RH AUTOMATED (BEAKER) (test B POSITIVE code = 2260) Ab Scrn (test code = 890-4) NEGATIVE [facility] [place], [id number] 06:19:00 Test Item Value Reference Range Interpretation Comments ABO/RH AUTOMATED (BEAKER) (test B POSITIVE code = 2260) Ab Scrn (test code = 890-4) NEGATIVE [facility] [id number] 05:20:00 Test Item Value Reference Range Interpretation Comments PARTIAL THROMBOPLASTIN TIME 111.9 seconds 22.5-36.0 H (BEAKER) (test code = 760) Patient on hep drippingComprehensive metabolic [id number] 05:17:00 Test Item Value Reference Range Interpretation Comments Protein, Total 6.7 See_Comment [Automated (test code = message] The 2885-2) system which generated this result transmit [place] reference range : 6.0 - 8.3 gm/dL . The reference range was not u sed to interpret th is result as normal/abnormal . Albumin (test code 3.6 g/dL 3.5-5.0 = 25174-9) Alkaline 102 U/L 40-150 Phosphatase (test code = 6768-6) Total Bilirubin 0.4 mg/dL 0.2-1.2 (test code = 1974-2) Sodium (test code = 138 meq/L 002-014 9352-2) Potassium (test 4.0 meq/L 3.5-5.1 code = 2823-3) Chloride (test code 102 meq/L 98-107 = 2075-0) CO2 (test code = 24 meq/L 22-29 2027-9) BUN (test code = 16 mg/dL 7-21 3094-0) Creatinine (test 0.91 mg/dL 0.57-1.25 code = 2160-0) Glucose (test code 103 mg/dL 70-105 = 2345-7) Calcium (test code 9.2 mg/dL 8.4-10.2 = 28003-3) AST (test code = 29 U/L 5-34 1920-8) ALT (test code = 24 U/L 6-55 1742-6) EGFR (test code = 79 mL/min/1.73 [place] [address]-0) NOT ACCURATE CREATININE CLEARANCE IN PREDICTING GLOMERULAR FILTRATION RATE . ESTIMATED GFR I S NOT APPLICABLE FOR DIALYSIS PATIEN TS. GRABIEL (test code = Core Drill Operator Helper ID - DB GRABIEL) [facility] [place] [id number] 05:17:00 Test Item Value Reference Range Interpretation Comments Triglycerides (test 90 mg/dL code = 2571-8) Cholesterol (test code 171 mg/dL = 3-3) HDL (test code = 39 mg/dL 9) LDL Calculated (test 114 mg/dL code = 71561-1) GRABIEL (test code = GRABIEL) Triglyceride Reference Range: Low Risk <150 Borderline 150-199 High Risk 200-499 Very High Risk >=500 Cholesterol Reference Range: Low Risk <200 Borderline 200-239 High Risk >240 HDL Cholesterol Reference Range: Low Risk >=60 High Risk <40 LDL Cholesterol Reference Range: Optimal <100 Near Optimal 100-129 Borderline 130-159 High 160-189 Very High >=190 Core Drill Operator Helper ID - DB [facility] [place]Com[facility] metabolic [id number] 05:17:00 Test Item Value Reference Range Interpretation Comments Protein, Total 6.7 See_Comment [Automated (test code = message] The 5045-2) system which generated this result transmit [place] reference range : 6.0 - 8.3 gm/dL . The reference range was not u sed to interpret th is result as normal/abnormal . Albumin (test code 3.6 g/dL 3.5-5.0 = 35756-7) Alkaline 102 U/L 40-150 Phosphatase (test code = 6768-6) Total Bilirubin 0.4 mg/dL 0.2-1.2 (test code = 1974-2) Sodium (test code = 138 meq/L 221-486 9761-2) Potassium (test 4.0 meq/L 3.5-5.1 code = 2823-3) Chloride (test code 102 meq/L 98-107 = 2075-0) CO2 (test code = 24 meq/L 22-29 2027-9) BUN (test code = 16 mg/dL 7-21 3094-0) Creatinine (test 0.91 mg/dL 0.57-1.25 code = 2160-0) Glucose (test code 103 mg/dL 70-105 = 2345-7) Calcium (test code 9.2 mg/dL 8.4-10.2 = 37282-0) AST (test code = 29 U/L 5-34 1920-8) ALT (test code = 24 U/L 6-55 1742-6) EGFR (test code = 79 mL/min/1.73 [place] [address]-8) NOT ACCURATE CREATININE CLEARANCE IN PREDICTING GLOMERULAR FILTRATION RATE . ESTIMATED GFR I S NOT APPLICABLE FOR DIALYSIS PATIEN TS. GRABIEL (test code = Core Drill Operator Helper ID - DB GRABIEL) [facility] [place] [id number] 05:17:00 Test Item Value Reference Range Interpretation Comments Triglycerides (test 90 mg/dL code = 2571-8) Cholesterol (test code 171 mg/dL = 2093-3) HDL (test code = 39 mg/dL 2084-10) LDL Calculated (test 114 mg/dL code = 54441-7) GRABIEL (test code = GRABIEL) Triglyceride Reference Range: Low Risk <150 Borderline 150-199 High Risk 200-499 Very High Risk >=500 Cholesterol Reference Range: Low Risk <200 Borderline 200-239 High Risk >240 HDL Cholesterol Reference Range: Low Risk >=60 High Risk <40 LDL Cholesterol Reference Range: Optimal <100 Near Optimal 100-129 Borderline 130-159 High 160-189 Very High >=190 Core Drill Operator Helper ID - DB [facility] [place]Com[facility] metabolic [id number] 05:17:00 Test Item Value Reference Range Interpretation Comments Protein, Total 6.7 See_Comment [Automated (test code = message] The 2885-2) system which generated this result transmit [place] reference range : 6.0 - 8.3 gm/dL . The reference range was not u sed to interpret th is result as normal/abnormal . Albumin (test code 3.6 g/dL 3.5-5 = 31443-0) Alkaline 102 U/L 40-150 Phosphatase (test code = 6768-6) Total Bilirubin 0.4 mg/dL 0.2-1.2 (test code = 1975-2) Sodium (test code = 138 meq/L 010-197 5414-2) Potassium (test 4.0 meq/L 3.5-5.1 code = 2823-3) Chloride (test code 102 meq/L 98-107 = 2075-0) CO2 (test code = 24 meq/L -29 2027-10) BUN (test code = 16 mg/dL 7- 3094-0) Creatinine (test 0.91 mg/dL 0.57-1.25 code = 2160-0) Glucose (test code 103 mg/dL 70-105 = 2345-7) Calcium (test code 9.2 mg/dL 8.4-10.2 = 22245-3) AST (test code = 29 U/L 5-34 1919-8) ALT (test code = 24 U/L 6-55 1742-6) EGFR (test code = 79 mL/min/1.73 [place] [address]-4) NOT ACCURATE CREATININE CLEARANCE IN PREDICTING GLOMERULAR FILTRATION RATE . ESTIMATED GFR I S NOT APPLICABLE FOR DIALYSIS PATIEN GRABIEL (test code = Core Drill Operator Helper ID - DB GRABIEL) [facility] [place] [id number] 05:17:00 Test Item Value Reference Range Interpretation Comments Triglycerides (test 90 mg/dL code = 2571-8) Cholesterol (test code 171 mg/dL = 2093-3) HDL (test code = 39 mg/dL 2084-10) LDL Calculated (test 114 mg/dL code = 52005-1) GRABIEL (test code = GRABIEL) Triglyceride Reference Range: Low Risk <150 Borderline 150-199 High Risk 200-499 Very High Risk >=500 Cholesterol Reference Range: Low Risk <200 Borderline 200-239 High Risk >240 HDL Cholesterol Reference Range: Low Risk >=60 High Risk <40 LDL Cholesterol Reference Range: Optimal <100 Near Optimal 100-129 Borderline 130-159 High 160-189 Very High >=190 Core Drill Operator Helper ID - DB [facility] [place]COMPRE[place]IVE METABOLIC [id number] 05:17:00 Test Item Value Reference Range Interpretation [...] S NOT APPLICABLE FOR DIALYSIS PATIEN TS. Core Drill Operator Helper ID - DBLIPID [id number] 05:17:00 Test Item Value Reference Range Interpretation [...] Borderline 130-159 High 160-189 Very High >=190 Core Drill Operator Helper ID - DBB-type Natriuretic Factor (BNP)2020-09-26 05:16:00 Test Item Value Reference Range Interpretation Comments BNP (test code = 20345-0) 686 pg/mL 0-100 H GRABIEL (test code = GRABIEL) Core Drill Operator Helper ID - DB Lab Interpretation (test Abnormal code = 30484-9) [facility] [place] Natriuretic Factor (BNP)2020-09-26 05:16:00 Test Item Value Reference Range Interpretation Comments BNP (test code = 67500-8) 686 pg/mL 0-100 H GRABIEL (test code = GRABIEL) Core Drill Operator Helper ID - DB Lab Interpretation (test Abnormal code = 78548-3) [facility] [place] Natriuretic Factor (BNP)2020-09-26 05:16:00 Test Item Value Reference Range Interpretation Comments BNP (test code = 04827-1) 686 pg/mL 0-100 H GRABIEL (test code = GRABIEL) Core Drill Operator Helper ID - DB Lab Interpretation (test Abnormal code = 43971-4) [facility] [place]-TYPE NATRIURETIC FACTOR (BNP)2020-09-26 05:16:00 Test Item Value Reference Range Interpretation Comments B-TYPE NATRIURETIC PEPTIDE (BEAKER) 686 pg/mL 0-100 H (test code = 700) Core Drill Operator Helper ID - DBHigh Sensitivity Troponin [id number] 05:14:00 Test Item Value Reference Range Interpretation Comments Troponin I HS 175 pg/ml See_Comment H [Automated (test code = message] The 91359-9) system which generated this result transmitted reference range : <=35. The reference range was not used to interpret this result as normal/abnormal . GRABILE (test code = Core Drill Operator Helper ID - GRABIEL) DBThe APPLICATION PACKAGING CONSULTANT STAT High Sensitivity Troponin-I results should be used in conjunction with other diagnostic information such as ECG, clinical observations and information, and patient symptoms to aid in the diagnosis of CT. Lab Interpretation Abnormal (test code = 05866-0) [facility] [place] Sensitivity Troponin [id number] 05:14:00 Test Item Value Reference Range Interpretation Comments Troponin I HS 175 pg/ml See_Comment H [Automated (test code = message] The 03732-8) system which generated this result transmitted reference range : <=35. The reference range was not used to interpret this result as normal/abnormal . GRABIEL (test code = Core Drill Operator Helper ID - GRABIEL) DBThe APPLICATION PACKAGING CONSULTANT STAT High Sensitivity Troponin-I results should be used in conjunction with other diagnostic information such as ECG, clinical observations and information, and patient symptoms to aid in the diagnosis of CT. Lab Interpretation Abnormal (test code = 36303-2) [facility] [place] Sensitivity Troponin [id number] 05:14:00 Test Item Value Reference Range Interpretation Comments Troponin I HS 175 pg/ml See_Comment H [Automated (test code = message] The 68135-6) system which generated this result transmitted reference range : <=35. The reference range was not used to interpret this result as normal/abnormal . GRABIEL (test code = Core Drill Operator Helper ID - GRABIEL) DBThe APPLICATION PACKAGING CONSULTANT STAT High Sensitivity Troponin-I results should be used in conjunction with other diagnostic information such as ECG, clinical observations and information, and patient symptoms to aid in the diagnosis of CT. Lab Interpretation Abnormal (test code = 72858-4) [facility] [place]ENS[place] TROPONIN [id number] 05:14:00 Test Item Value Reference Range Interpretation Comments HIGH SENSITIVITY 175 pg/ml See_Comment H [Automated message] TROPONIN I (test code The sy stem which = 1589268) generated this result transmitted ref erence range: <=35. Th e reference range was not used to int erpret this result as normal/abnormal . Core Drill Operator Helper ID - DBThe APPLICATION PACKAGING CONSULTANT STAT High Sensitivity Troponin-I results should be used in conjunctionwith other diagnostic information such as ECG, clinical observations and information, and patient symptoms to aid in the diagnosis of CT.Prothrombin time/[id number] 05:07:00 Test Item Value Reference Interpretation Comments [...] valves. Lab Interpretation Abnormal (test code = 20213-3) [facility] SacramentoProthrombin time/[id number] 05:07:00 Test Item Value Reference Interpretation Comments [...] valves. Lab Interpretation Abnormal (test code = 67401-3) [facility] [place]Prothrombin time/[id number] 05:07:00 Test Item Value Reference Interpretation Comments Range Protime (test code = 15.6 See_Comment H [Autom ated 2202-2) message] The system which generated this result transmitted reference range : 11.9 - 14.2 seconds. The reference range was not used to interpret this result as normal/abnormal . INR (test code = 1.26 See_Comment [Automated 1661-6) message] The system which generated this result [...] valves. Lab Interpretation Abnormal (test code = 82802-1) [facility] SacramentoPROTHROMBIN TIME/[id number] 05:07:00 Test Item Value Reference Range Interpretation Comments PROTIME (BEAKER) 15.6 seconds 11.9-14.2 H (test code = 759) INR (BEAKER) (test 1.26 See_Comment [Automat ed message] code = 370) The system [employer] generated this result transmitted ref erence range: [...] 4.1 See_Comment [A utomated message] The system [employer] generated this result transmitted ref erence range: 3.5 - 10 .5 K/L. The refe rence range was not u sed to interpret this result as normal/abnor mal. RBC (test code = 789-8) 3.65 See_Comment L [Au tomated message] The system [employer] generated this result transmitted ref erence range: 4.63 - 6 .08 M/L. The refe rence range was not u sed to interpret this result as normal/abnor mal. MCHC (test code = 786-4) 31.2 See_Comment L [A utomated message] The system [employer] generated this result transmitted ref erence range: [...] L [Aut omated message] 777-3) The system [employer] generated this result transmitted ref erence range: 150 - 45 0 K/CU MM. The referen ce range was not u sed to interpret this result as normal/abnor mal. MPV (test code = 10.3 fL 9.4-12.4 74969-6) nRBC (test code = 413) 0 See_Comment [Aut omated message] The system [employer] generated this result transmitted ref erence range: [...] See_Comment [Aut omated message] 670) The system [employer] generated this result transmitted ref erence range: 1.78 - 5 .38 K/L. The refe rence range was not u sed to interpret this result as normal/abnor mal. # Lymphs (test code = 1.01 See_Comment L [Auto mated message] 414) The system [employer] generated this result transmitted ref erence range: 1.32 - 3 .57 K/L. The refe rence range was not u sed to interpret this result as normal/abnor mal. # Monos (test code = 0.44 See_Comment [Autom ated message] 415) The system [employer] generated this result transmitted ref erence range: 0.30 - 0 .82 K/L. The refe rence range was not u sed to interpret this result as normal/abnor mal. # Eos (test code = 416) 0.16 See_Comment [Au tomated message] The system [employer] generated this result transmitted ref erence range: 0.04 - 0 .54 K/L. The refe rence range was not u sed to interpret this result as normal/abnor mal. # Baso (test code = 417) 0.02 See_Comment [A utomated message] The system [employer] generated this result transmitted ref erence range: 0.01 - 0 .08 K/L. The refe rence range was not u sed to interpret this result as normal/abnor mal. Immature 0 % 0-1 Granulocytes-Relative (test code = 2801) Lab Interpretation (test Abnormal code = 23532-1) [facility] [place] with platelet count + automated [id number] 04:49:00 Test Item Value Reference Range Interpretation Comments WBC (test code = 6690-2) 4.1 See_Comment [A utomated message] The system [employer] generated this result transmitted ref erence range: 3.5 - 10 .5 K/L. The refe rence range was not u sed to interpret this result as normal/abnor mal. RBC (test code = 789-8) 3.65 See_Comment L [Au tomated message] The system [employer] generated this result transmitted ref erence range: 4.63 - 6 .08 M/L. The refe rence range was not u sed to interpret this result as normal/abnor mal. MCHC (test code = 786-4) 31.2 See_Comment L [A utomated message] The system [employer] generated this result transmitted ref erence range: [...] L [Aut omated message] 777-3) The system [employer] generated this result transmitted ref erence range: 150 - 45 0 K/CU MM. The referen ce range was not u sed to interpret this result as normal/abnor mal. MPV (test code = 10.3 fL 9.4-12.4 30062-2) nRBC (test code = 413) 0 See_Comment [Aut omated message] The system [employer] generated this result transmitted ref erence range: [...] See_Comment [Aut omated message] 670) The system [employer] generated this result transmitted ref erence range: 1.78 - 5 .38 K/L. The refe rence range was not u sed to interpret this result as normal/abnor mal. # Lymphs (test code = 1.01 See_Comment L [Auto mated message] 414) The system [employer] generated this result transmitted ref erence range: 1.32 - 3 .57 K/L. The refe rence range was not u sed to interpret this result as normal/abnor mal. # Monos (test code = 0.44 See_Comment [Autom ated message] 415) The system [employer] generated this result transmitted ref erence range: 0.30 - 0 .82 K/L. The refe rence range was not u sed to interpret this result as normal/abnor mal. # Eos (test code = 416) 0.16 See_Comment [Au tomated message] The system [employer] generated this result transmitted ref erence range: 0.04 - 0 .54 K/L. The refe rence range was not u sed to interpret this result as normal/abnor mal. # Baso (test code = 417) 0.02 See_Comment [A utomated message] The system [employer] generated this result transmitted ref erence range: 0.01 - 0 .08 K/L. The refe rence range was not u sed to interpret this result as normal/abnor mal. Immature 0 % 0-1 Granulocytes-Relative (test code = 2801) Lab Interpretation (test Abnormal code = 98759-4) [facility] [place] with platelet count + automated [id number] 04:49:00 Test Item Value Reference Range Interpretation Comments WBC (test code = 6690-2) 4.1 See_Comment [A utomated message] The system [employer] generated this result transmitted ref erence range: 3.5 - 10 .5 K/L. The refe rence range was not u sed to interpret this result as normal/abnor mal. RBC (test code = 789-8) 3.65 See_Comment L [Au tomated message] The system [employer] generated this result transmitted ref erence range: 4.63 - 6 .08 M/L. The refe rence range was not u sed to interpret this result as normal/abnor mal. MCHC (test code = 786-4) 31.2 See_Comment L [A utomated message] The system [employer] generated this result transmitted ref erence range: [...] L [Aut omated message] 777-3) The system [employer] generated this result transmitted ref erence range: 150 - 45 0 K/CU MM. The referen ce range was not u sed to interpret this result as normal/abnor mal. MPV (test code = 10.3 fL 9.4-12.4 82721-1) nRBC (test code = 413) 0 See_Comment [Aut omated message] The system [employer] generated this result transmitted ref erence range: [...] See_Comment [Aut omated message] 670) The system [employer] generated this result transmitted ref erence range: 1.78 - 5 .38 K/L. The refe rence range was not u sed to interpret this result as normal/abnor mal. # Lymphs (test code = 1.01 See_Comment L [Auto mated message] 414) The system [employer] generated this result transmitted ref erence range: 1.32 - 3 .57 K/L. The refe rence range was not u sed to interpret this result as normal/abnor mal. # Monos (test code = 0.44 See_Comment [Autom ated message] 415) The system [employer] generated this result transmitted ref erence range: 0.30 - 0 .82 K/L. The refe rence range was not u sed to interpret this result as normal/abnor mal. # Eos (test code = 416) 0.16 See_Comment [Au tomated message] The system [employer] generated this result transmitted ref erence range: 0.04 - 0 .54 K/L. The refe rence range was not u sed to interpret this result as normal/abnor mal. # Baso (test code = 417) 0.02 See_Comment [A utomated message] The system [employer] generated this result transmitted ref erence range: 0.01 - 0 .08 K/L. The refe rence range was not u sed to interpret this result as normal/abnor mal. Immature 0 % 0-1 Granulocytes-Relative (test code = 2801) Lab Interpretation (test Abnormal code = 47217-6) [facility] [place] W/PLT COUNT & AUTO [id number] 04:49:00 Test Item Value Reference Range Interpretation [...] Not Detected Not Detected (test code = 26778-8) GRABIEL (test code = GRABIEL) ID NOW COVID-19 Assay is an isothermal nucleic acid amplification test intended for the qualitative detection of nucleic acid from SARS-CoV-2 viral RNA in nasopharyngeal (CYBER REVERSE ENGINEER) specimens. It is used under Emergency Use [...] indicated. Lab Interpretation Normal (test code = 26017-3) [facility] WITH [id number] 19:54:17 Test Item Value Reference Range Interpretation [...] (test code = 52.3 fL 38.5-51.6 H 79050-8) RDW-CV (test code = 15.1 % 12.1-15.4 788-0) PLT (test code = See_Comment [Automated 777-3) message] The sy stem which generated this result transmitted reference range : 150 - 328 10*3/ ?L. The reference r sheryl was not used to interpret this result as normal/abnormal . MPV (test code = 10.2 fL 9.8-13.0 29597-3) NRBC/100 WBC (test See_Comment [Automat ed code = [id number]) message] The system which generated this result transmitted reference range : 0.0 - 10.0 /100 WBCs. The refer ence range was not u sed to interpret th is result as normal/abnormal . NRBC x10^3 (test code <0.01 See_Comment [Auto mated = [id number]) message] The s ystem which generated this result transmitted reference range : 10*3/?L. The reference range was not used to interpret this result as normal/abnormal . GRAN MAT (NEUT) % 59.2 % (test code = 770-8) IMM GRAN % (test code 0.40 % = [id number]) LYMPH % (test code = 26.7 % 736-9) MONO % (test code = 10.6 % 5905-5) EOS % (test code = 2.7 % 713-8) BASO % (test code = 0.4 % 706-2) GRAN MAT x10^3(ANC) 2.63 10*3/uL 1.99-6.95 (test code = 2079206831) IMM GRAN x10^3 (test <0.03 0.00-0.06 code = 8611941572) LYMPH x10^3 (test code 1.19 10*3/uL 1.09-3.23 = 731-0) MONO x10^3 (test code 0.47 10*3/uL 0.36-1.02 = 742-7) EOS x10^3 (test code = 0.12 10*3/uL 0.06-0.53 711-2) BASO x10^3 (test code <0.03 0.01-0.09 = 704-7) Lab Interpretation Abnormal (test code = 90056-1) [facility] AND [id number] 00:22:00 Test Item Value Reference Range Interpretation Comments UA Color (test code = Yellow *NA*(01/15/19 UA Color) 6:22 PM) [facility] AND [id number] 00:22:00 Test Item Value Reference Range Interpretation Comments UA Turbidity (test code = Clear (01/15/19 6:22 UA Turbidity) PM) [facility] AND [id number] 00:22:00 Test Item Value Reference Range Interpretation Comments UA Spec Grav (test code = UA Spec 1.023 1 Grav) [facility] AND [id number] 00:22:00 Test Item Value Reference Range Interpretation Comments UA pH (test code = UA pH) 5.0 1 5.0-8.0 [facility] AND [id number] 00:22:00 Test Item Value Reference Range Interpretation Comments UA Protein (test code Negative (01/15/19 6:22 = UA Protein) PM) [facility] AND [id number] 00:22:00 Test Item Value Reference Range Interpretation Comments UA Glucose (test code Negative *NA*(01/15/19 = UA Glucose) 6:22 PM) [facility] AND [id number] 00:22:00 Test Item Value Reference Range Interpretation Comments UA Ketones (test code = UA Ketones) 20 mg/dL [facility] AND [id number] 00:22:00 Test Item Value Reference Range Interpretation Comments UA Bili (test code = Negative *NA*(01/15/19 UA Bili) 6:22 PM) [facility] AND [id number] 00:22:00 Test Item Value Reference Range Interpretation Comments UA Blood (test code = Negative (01/15/19 6:22 UA Blood) PM) [facility] AND [id number] 00:22:00 Test Item Value Reference Range Interpretation Comments UA Urobilinogen (test code = UA <=1.0 mg/dL 0.1-1.0 Urobilinogen) [facility] AND [id number] 00:22:00 Test Item Value Reference Range Interpretation Comments UA Nitrite (test code Negative (01/15/19 6:22 = UA Nitrite) PM) [facility] AND [id number] 00:22:00 Test Item Value Reference Range Interpretation Comments UA Leuk Est (test Negative (01/15/19 6:22 code = UA Leuk Est) PM) [facility] AND [id number] 00:22:00 Test Item Value Reference Range Interpretation Comments UA Sq Epi (test code = None Seen (01/15/19 UA Sq Epi) 6:22 PM) [facility] AND [id number] 00:22:00 Test Item Value Reference Range Interpretation Comments UA WBC (test code = 1 See_Comment [Automa valentina message] The UA WBC) system which ge nerated this result transmit valentina reference range : <=5. The reference range was not used to interpr et this result as abbey l/abnormal. [facility] AND [id number] 00:22:00 Test Item Value Reference Range Interpretation Comments UA RBC (test code = 1 See_Comment [Automa valentina message] The UA RBC) system which ge nerated this result transmit valentina reference range : <=2. The reference range was not used to interpr et this result as abbey l/abnormal. [facility] [id number] 00:22:00 Test Item Value Reference Range Interpretation Comments UA Mucus (test code = UA Mucus) Few /LPF [facility] [id number] 10:48:00 Test Item Value Reference Range Interpretation Comments Magnesium Lvl (test code = Magnesium 2.3 1.8-2.4 Lvl) [facility] [id number] 10:48:00 Test Item Value Reference Range Interpretation Comments Phosphorus (test code = Phosphorus) 3.0 2.5-4.5 [facility]KcifxrcIBMCBZJSBIQC7544-69-05 10:48:00 Test Item Value Reference Range Interpretation Comments AGAP (test code = AGAP) 10.3 10.0-20.0 [facility] CenterYinnpgyPEMQLLQVKSFQ6018-64-97 10:48:00 Test Item Value Reference Range Interpretation Comments Glucose Lvl (test code = Glucose Lvl) 104 70-99 [facility] CenterKbyvkgrUEXIGWOQPJOF2627-65-32 10:48:00 Test Item Value Reference Range Interpretation Comments BUN (test code = BUN) 15 7-22 [facility] CenterXtqfdzfVJKYNFJPNXLP7271-69-04 10:48:00 Test Item Value Reference Range Interpretation Comments Creatinine Lvl (test code = Creatinine 0.69 0.50-1.40 Lvl) [facility] CenterUlmevwhKIYJRYVOEVUO5708-94-20 10:48:00 Test Item Value Reference Range Interpretation Comments Sodium Lvl (test code = Sodium Lvl) 138 135-145 [facility] CenterQpibegkGUNTHPLDCUBH1715-05-70 10:48:00 Test Item Value Reference Range Interpretation Comments Potassium Lvl (test code = Potassium 4.3 3.5-5.1 Lvl) [facility] CenterKqggfdiQZTNCQJVDMZO7949-76-50 10:48:00 Test Item Value Reference Range Interpretation Comments Chloride Lvl (test code = Chloride Lvl) 106 95-109 [facility] CenterMwrewwcOEAMNKGLPDGR8797-73-90 10:48:00 Test Item Value Reference Range Interpretation Comments CO2 (test code = CO2) 26 24-32 [facility] CenterJgufzbwRGOJMGSXEKLG6194-09-64 10:48:00 Test Item Value Reference Range Interpretation Comments Calcium Lvl (test code = Calcium Lvl) 8.9 8.5-10.5 [facility] HospitalAabgbmjZKMYOHETADZD7916-13-34 10:48:00 Test Item Value Reference Range Interpretation Comments eGFR (test code = eGFR) 87 [facility]RpzeguyAWWNFUDLKO8410-61-10 10:48:00 Test Item Value Reference Range Interpretation Comments WBC (test code = WBC) 2.6 3.7-10.4 [facility] HospitalGyubrapYTALQNZYBX9872-00-30 10:48:00 Test Item Value Reference Range Interpretation Comments RBC (test code = RBC) 3.79 4.70-6.10 [facility] HospitalCdoylweZDBYXDHLYY5979-20-39 10:48:00 Test Item Value Reference Range Interpretation Comments Hgb (test code = Hgb) 11.1 14.0-18.0 [facility] HospitalMamhsojDAHPUVELXP1657-42-59 10:48:00 Test Item Value Reference Range Interpretation Comments Hct (test code = Hct) 34.9 42.0-54.0 [facility] HospitalUdthksmRUMZGFDYIU4290-00-55 10:48:00 Test Item Value Reference Range Interpretation Comments MCV (test code = MCV) 92.0 80.0-94.0 [facility] HospitalJrpyrwqGMUWCRFAEW5666-07-02 10:48:00 Test Item Value Reference Range Interpretation Comments MCH (test code = MCH) 29.3 pg 27.0-31.0 [facility] HospitalHzkoiwoMMWMWQIWMY9042-58-91 10:48:00 Test Item Value Reference Range Interpretation Comments MCHC (test code = MCHC) 31.8 32.0-36.0 [facility] HospitalXlanxcuCPXCIUYXFE5454-57-41 10:48:00 Test Item Value Reference Range Interpretation Comments RDW (test code = RDW) 16.5 11.5-14.5 [facility] HospitalFcfkhrzWNOGRCHMYW9053-90-64 10:48:00 Test Item Value Reference Range Interpretation Comments Platelet (test code = Platelet) 148 133-450 [facility] HospitalRplbqqyXANUXLKZDG7258-87-02 10:48:00 Test Item Value Reference Range Interpretation Comments MPV (test code = MPV) 8.3 7.4-10.4 [facility] CampusCxwoiyxRAPYYNTMQF1999-80-92 10:48:00 Test Item Value Reference Range Interpretation Comments Segs (test code = Segs) 66.8 45.0-75.0 [facility] HospitalLogxttjAAKVEWBCEU2817-04-04 10:48:00 Test Item Value Reference Range Interpretation Comments Lymphocytes (test code = Lymphocytes) 12.6 20.0-40.0 [facility] CampusBricxbiDNHLCQOBRH2345-15-00 10:48:00 Test Item Value Reference Range Interpretation Comments Monocytes (test code = Monocytes) 8.4 2.0-12.0 [facility] CampusZsyxxdpYOMRUWSVPV9839-29-47 10:48:00 Test Item Value Reference Range Interpretation Comments Eosinophils (test code = 11.5 See_Comment [A utomated message] The Eosinophils) system which ge nerated this result tra nsmitted reference range : <=4.0. The reference r sheryl was not used to int erpret this result as normal/abnormal . [facility] CampusNnczgyyVOVOZEVAZD0533-45-16 10:48:00 Test Item Value Reference Range Interpretation Comments Basophils (test code = 0.7 See_Comment [Aut omated message] The Basophils) system which ge nerated this result tra nsmitted reference range : <=1.0. The reference r sheryl was not used to int erpret this result as normal/abnormal . [facility] CampusUxcrhlpIXYPTDKXHH4627-46-52 10:48:00 Test Item Value Reference Range Interpretation Comments Neutrophils # (test code = Neutrophils 1.7 1.5-8.1 #) [facility] CampusExjvkanRGVAPRYLPG6200-39-42 10:48:00 Test Item Value Reference Range Interpretation Comments Lymphocytes # (test code = Lymphocytes 0.3 1.0-5.5 #) [facility] CampusAogyhywPRVGUBJERZ2549-32-89 10:48:00 Test Item Value Reference Range Interpretation Comments Monocytes # (test code 0.2 See_Comment [Aut omated message] The = Monocytes #) system which generated this result tra nsmitted reference range : <=0.8. The reference r sheryl was not used to int erpret this result as normal/abnormal . [facility] CampusHzszikeUGLDFBTLWJ0834-96-85 10:48:00 Test Item Value Reference Range Interpretation Comments Eosinophils # (test code 0.3 See_Comment [A utomated message] The = Eosinophils #) system whic h generated this result tra nsmitted reference range : <=0.5. The reference r sheryl was not used to int erpret this result as normal/abnormal . [facility]2019-11-18 10:15:00 Test Item Value Reference Range Interpretation Comments Magnesium Lvl (test code = Magnesium 2.0 1.8-2.4 Lvl) [facility]2019-11-18 10:15:00 Test Item Value Reference Range Interpretation Comments Phosphorus (test code = Phosphorus) 3.6 2.5-4.5 [facility]2019-11-18 10:15:00 Test Item Value Reference Range Interpretation Comments Glucose Lvl (test code = Glucose Lvl) 127 70-99 [facility]2019-11-18 10:15:00 Test Item Value Reference Range Interpretation Comments BUN (test code = BUN) 9 7-22 [facility]2019-11-18 10:15:00 Test Item Value Reference Range Interpretation Comments Creatinine Lvl (test code = Creatinine 0.71 0.50-1.40 Lvl) [facility]2019-11-18 10:15:00 Test Item Value Reference Range Interpretation Comments Sodium Lvl (test code = Sodium Lvl) 139 135-145 [facility]2019-11-18 10:15:00 Test Item Value Reference Range Interpretation Comments Potassium Lvl (test code = Potassium 4.2 3.5-5.1 Lvl) [facility]2019-11-18 10:15:00 Test Item Value Reference Range Interpretation Comments Chloride Lvl (test code = Chloride Lvl) 106 95-109 [facility]2019-11-18 10:15:00 Test Item Value Reference Range Interpretation Comments CO2 (test code = CO2) 27 24-32 [facility]2019-11-18 10:15:00 Test Item Value Reference Range Interpretation Comments AGAP (test code = AGAP) 10.2 10.0-20.0 [facility]2019-11-18 10:15:00 Test Item Value Reference Range Interpretation Comments Calcium Lvl (test code = Calcium Lvl) 8.9 8.5-10.5 [facility]2019-11-18 10:15:00 Test Item Value Reference Range Interpretation Comments eGFR (test code = eGFR) 86 [facility] CampusBglkfzwZMGWBKVBKR7494-35-50 10:15:00 Test Item Value Reference Range Interpretation Comments Segs (test code = Segs) 63.6 45.0-75.0 [place] 111149-11-18 10:15:00 Test Item Value Reference Range Interpretation Comments Lymphocytes (test code = Lymphocytes) 19.5 20.0-40.0 [facility] CampusBhmtgekQAPEEVGKOQ5857-74-10 10:15:00 Test Item Value Reference Range Interpretation Comments Monocytes (test code = Monocytes) 11.0 2.0-12.0 [facility] CampusBezixczICUBTHBVHR6915-18-20 10:15:00 Test Item Value Reference Range Interpretation Comments Eosinophils (test code = 5.2 See_Comment [A utomated message] The Eosinophils) system which ge nerated this result tra nsmitted reference range : <=4.0. The reference r sheryl was not used to int erpret this result as normal/abnormal . [facility] CampusMsdkhkaIBGGNICRUN7543-40-19 10:15:00 Test Item Value Reference Range Interpretation Comments Basophils (test code = 0.7 See_Comment [Aut omated message] The Basophils) system which ge nerated this result tra nsmitted reference range : <=1.0. The reference r sheryl was not used to int erpret this result as normal/abnormal . [facility] CampusFicntdlIIEXKBQVNV5943-88-25 10:15:00 Test Item Value Reference Range Interpretation Comments Neutrophils # (test code = Neutrophils 1.4 1.5-8.1 #) [facility] CampusYejdqviICKLFPQKCW4490-87-22 10:15:00 Test Item Value Reference Range Interpretation Comments Lymphocytes # (test code = Lymphocytes 0.4 1.0-5.5 #) [facility] CampusHwxwmgzSYHKMDNPBP1200-93-80 10:15:00 Test Item Value Reference Range Interpretation Comments Monocytes # (test code 0.2 See_Comment [Aut omated message] The = Monocytes #) system which generated this result tra nsmitted reference range : <=0.8. The reference r sheryl was not used to int erpret this result as normal/abnormal . [facility] CampusBoeaduoMKFTHANRFH2553-58-17 10:15:00 Test Item Value Reference Range Interpretation Comments Eosinophils # (test code 0.1 See_Comment [A utomated message] The = Eosinophils #) system whic h generated this result tra nsmitted reference range : <=0.5. The reference r sheryl was not used to int erpret this result as normal/abnormal . [facility] CampusCzpbazhHEWVYDPFOU2648-81-60 10:15:00 Test Item Value Reference Range Interpretation Comments WBC (test code = WBC) 2.2 3.7-10.4 [facility] CampusVvdzunsHQFJFLDBTG2815-64-91 10:15:00 Test Item Value Reference Range Interpretation Comments RBC (test code = RBC) 3.60 4.70-6.10 [facility] CampusVtucoxhVQOQADLWYL7776-91-94 10:15:00 Test Item Value Reference Range Interpretation Comments Hgb (test code = Hgb) 10.8 14.0-18.0 [facility] CampusYmeagvaAKWXYQRXJT0046-26-40 10:15:00 Test Item Value Reference Range Interpretation Comments Hct (test code = Hct) 33.4 42.0-54.0 [facility] CampusAfzxxliNJZCSJMDYN5516-20-04 10:15:00 Test Item Value Reference Range Interpretation Comments MCV (test code = MCV) 92.9 80.0-94.0 [facility] CampusQfnvizjBPFLLGLEFI3003-62-99 10:15:00 Test Item Value Reference Range Interpretation Comments MCH (test code = MCH) 30.1 pg 27.0-31.0 [facility] CampusGkmxlrwSGSDTIBEXL9626-85-51 10:15:00 Test Item Value Reference Range Interpretation Comments MCHC (test code = MCHC) 32.4 32.0-36.0 [facility] CampusSmphngxPZDNDUWKAO6981-33-46 10:15:00 Test Item Value Reference Range Interpretation Comments RDW (test code = RDW) 17.0 11.5-14.5 [facility] CampusZmsrosaQIEICNJYOX4770-67-47 10:15:00 Test Item Value Reference Range Interpretation Comments Platelet (test code = Platelet) 108 133-450 [facility] CampusOrxdmjzKVLLFRFABX9724-11-64 10:15:00 Test Item Value Reference Range Interpretation Comments MPV (test code = MPV) 8.0 7.4-10.4 [facility]2019-11-17 10:43:00 Test Item Value Reference Range Interpretation Comments Glucose Lvl (test code = Glucose Lvl) 141 70-99 [facility]2019-11-17 10:43:00 Test Item Value Reference Range Interpretation Comments BUN (test code = BUN) 7 7-22 [facility]2019-11-17 10:43:00 Test Item Value Reference Range Interpretation Comments Creatinine Lvl (test code = Creatinine 0.69 0.50-1.40 Lvl) [facility]2019-11-17 10:43:00 Test Item Value Reference Range Interpretation Comments Sodium Lvl (test code = Sodium Lvl) 134 135-145 [facility]2019-11-17 10:43:00 Test Item Value Reference Range Interpretation Comments Potassium Lvl (test code = Potassium 4.3 3.5-5.1 Lvl) [facility]2019-11-17 10:43:00 Test Item Value Reference Range Interpretation Comments Chloride Lvl (test code = Chloride Lvl) 101 95-109 [facility]2019-11-17 10:43:00 Test Item Value Reference Range Interpretation Comments CO2 (test code = CO2) 26 24-32 [facility]2019-11-17 10:43:00 Test Item Value Reference Range Interpretation Comments Calcium Lvl (test code = Calcium Lvl) 8.5 8.5-10.5 [facility]2019-11-17 10:43:00 Test Item Value Reference Range Interpretation Comments eGFR (test code = eGFR) 87 [facility]2019-11-17 10:43:00 Test Item Value Reference Range Interpretation Comments AGAP (test code = AGAP) 11.3 10.0-20.0 [facility]2019-11-17 10:43:00 Test Item Value Reference Range Interpretation Comments Magnesium Lvl (test code = Magnesium 1.9 1.8-2.4 Lvl) [facility]2019-11-17 10:43:00 Test Item Value Reference Range Interpretation Comments Phosphorus (test code = Phosphorus) 2.8 2.5-4.5 [facility] CampusYemkgfoZWIMCXMJDX3157-28-49 10:43:00 Test Item Value Reference Range Interpretation Comments WBC (test code = WBC) 3.7 3.7-10.4 [facility] CampusMgkrcacRYPLMQPAYL1460-32-92 10:43:00 Test Item Value Reference Range Interpretation Comments RBC (test code = RBC) 3.68 4.70-6.10 [facility] CampusAiiwxhhRTZQBOPVHE8505-90-97 10:43:00 Test Item Value Reference Range Interpretation Comments Hgb (test code = Hgb) 11.0 14.0-18.0 [facility] CampusRygbshbIMDEIEJRKW3573-98-36 10:43:00 Test Item Value Reference Range Interpretation Comments Hct (test code = Hct) 33.9 42.0-54.0 [facility] CampusBmkfyczWLSTJGXDPO4600-81-41 10:43:00 Test Item Value Reference Range Interpretation Comments MCV (test code = MCV) 92.1 80.0-94.0 [facility] CampusSqzqkiaCHNPFIOIDU5938-47-00 10:43:00 Test Item Value Reference Range Interpretation Comments MCH (test code = MCH) 30.0 pg 27.0-31.0 [facility] CampusOqbnxtdFAPLAKFNWF4701-53-16 10:43:00 Test Item Value Reference Range Interpretation Comments MCHC (test code = MCHC) 32.6 32.0-36.0 [facility] CampusDvxdfiuYZGTADFZCQ1677-55-19 10:43:00 Test Item Value Reference Range Interpretation Comments RDW (test code = RDW) 16.7 11.5-14.5 [facility] CampusPkupqwlURBIHCUFMD1373-31-32 10:43:00 Test Item Value Reference Range Interpretation Comments Platelet (test code = Platelet) 131 133-450 [facility] CampusFzwbzaeGSXANIXFBP3024-01-72 10:43:00 Test Item Value Reference Range Interpretation Comments MPV (test code = MPV) 8.2 7.4-10.4 [facility] CampusAsrvgkyHYFNYKQXVF9271-28-73 10:43:00 Test Item Value Reference Range Interpretation Comments Segs (test code = Segs) 76.8 45.0-75.0 [facility] CampusFvfkzulVSYPJGQQDK0486-56-76 10:43:00 Test Item Value Reference Range Interpretation Comments Lymphocytes (test code = Lymphocytes) 9.9 20.0-40.0 [facility] CampusYpokhfwTXRFZYFWCJ2319-00-72 10:43:00 Test Item Value Reference Range Interpretation Comments Monocytes (test code = Monocytes) 11.8 2.0-12.0 [facility] CampusQlbeqajHYUVZSOENZ3326-52-27 10:43:00 Test Item Value Reference Range Interpretation Comments Eosinophils (test code = 1.2 See_Comment [A utomated message] The Eosinophils) system which ge nerated this result tra nsmitted reference range : <=4.0. The reference r sheryl was not used to int erpret this result as normal/abnormal . [facility] CampusAdbjbgxKOMBWXBOPF7238-50-24 10:43:00 Test Item Value Reference Range Interpretation Comments Basophils (test code = 0.3 See_Comment [Aut omated message] The Basophils) system which ge nerated this result tra nsmitted reference range : <=1.0. The reference r sheryl was not used to int erpret this result as normal/abnormal . [facility]LkdptttWLXOMUZDKI6177-20-75 10:43:00 Test Item Value Reference Range Interpretation Comments Neutrophils # (test code = Neutrophils 2.8 1.5-8.1 #) [facility] [id number] 10:43:00 Test Item Value Reference Range Interpretation Comments Lymphocytes # (test code = Lymphocytes 0.4 1.0-5.5 #) [id number] 10:43:00 Test Item Value Reference Range Interpretation Comments Monocytes # (test code 0.4 See_Comment [Aut omated message] The = Monocytes #) system which generated this result tra nsmitted reference range : <=0.8. The reference r sheryl was not used to int erpret this result as normal/abnormal . [facility] [id number] 09:33:00 Test Item Value Reference Range Interpretation Comments Source Strep (test code Urine *NA*(01/10/19 = Source Strep) 3:33 AM) [facility] [id number] 09:33:00 Test Item Value Reference Range Interpretation Comments Strep pneumoniae Ag Negative (01/10/19 (test code = Strep 3:33 AM) pneumoniae Ag) [facility] AND [id number] 09:33:00 Test Item Value Reference Range Interpretation Comments UA Color (test code = Yellow *NA*(01/10/19 UA Color) 3:33 AM) [facility] [id number] 09:33:00 Test Item Value Reference Range Interpretation Comments UA Turbidity (test code = Clear (01/10/19 3:33 UA Turbidity) AM) [facility] [id number] 09:33:00 Test Item Value Reference Range Interpretation Comments UA Spec Grav (test code = UA Spec 1.014 1 Grav) [facility] [id number] 09:33:00 Test Item Value Reference Range Interpretation Comments UA pH (test code = UA pH) 5.0 1 5.0-8.0 [facility] [id number] 09:33:00 Test Item Value Reference Range Interpretation Comments UA Protein (test code Negative (01/10/19 3:33 = UA Protein) AM) [facility] AND [id number] 09:33:00 Test Item Value Reference Range Interpretation Comments UA Glucose (test code Negative *NA*(01/10/19 = UA Glucose) 3:33 AM) [facility] AND [id number] 09:33:00 Test Item Value Reference Range Interpretation Comments UA Ketones (test code = Trace *ABN*(01/10/19 UA Ketones) 3:33 AM) [facility] AND [id number] 09:33:00 Test Item Value Reference Range Interpretation Comments UA Bili (test code = Negative *NA*(01/10/19 UA Bili) 3:33 AM) [facility] AND [id number] 09:33:00 Test Item Value Reference Range Interpretation Comments UA Blood (test code = Negative (01/10/19 3:33 UA Blood) AM) [facility] AND [id number] 09:33:00 Test Item Value Reference Range Interpretation Comments UA Urobilinogen (test code = UA <=1.0 mg/dL 0.1-1.0 Urobilinogen) [facility] AND [id number] 09:33:00 Test Item Value Reference Range Interpretation Comments UA Nitrite (test code Negative (01/10/19 3:33 = UA Nitrite) AM) [facility] AND [id number] 09:33:00 Test Item Value Reference Range Interpretation Comments UA Leuk Est (test Negative (01/10/19 3:33 code = UA Leuk Est) AM) [facility] AND [id number] 09:33:00 Test Item Value Reference Range Interpretation Comments UA Sq Epi (test code = None Seen (01/10/19 UA Sq Epi) 3:33 AM) [facility] AND [id number] 09:33:00 Test Item Value Reference Range Interpretation Comments UA WBC (test code = no gt See_Comment [Automa valentina message] The UA WBC) system which ge nerated this result transmit valentina reference range : <=5. The reference range was not used to interpr et this result as abbey l/abnormal. [facility] [id number] 09:33:00 Test Item Value Reference Range Interpretation Comments UA RBC (test code = no gt See_Comment [Automa valentina message] The UA RBC) system which ge nerated this result transmit valentina reference range : <=2. The reference range was not used to interpr et this result as abbey l/abnormal. [facility] [id number] 09:33:00 Test Item Value Reference Range Interpretation Comments UA Mucus (test code = UA Mucus) Few /LPF [facility] - [id number] 07:15:00 Test Item Value Reference Range Interpretation Comments Influ A (test code = Negative (01/10/19 1:15 Influ A) AM) [facility] - [id number] 07:15:00 Test Item Value Reference Range Interpretation Comments Influ B (test code = Negative (01/10/19 1:15 Influ B) AM) [facility]CARDIAC [id number] 05:21:00 Test Item Value Reference Range Interpretation Comments Troponin-I (test code 0.09 See_Comment [Auto mated message] The = Troponin-I) system which g enerated this result transmit valentina reference range : <=0.40. The reference r sheryl was not used to interpr et this result as abbey l/abnormal. [facility] [id number] 05:21:00 Test Item Value Reference Range Interpretation Comments Procalcitonin Lvl <0.05 ng/mL See_Comment [Automate d message] (test code = The system whic h Procalcitonin Lvl) generated this result transmit valentina reference range : <=0.10. The reference range was not used to interpret this result as normal/abnormal . [facility] [id number] 05:21:00 Test Item Value Reference Range Interpretation Comments Total Protein (test code = Total 7.1 6.4-8.4 Protein) [facility]ann[facility] [id number] 05:21:00 Test Item Value Reference Range Interpretation Comments Albumin Lvl (test code = Albumin Lvl) 3.1 3.5-5.0 [facility] [id number] 05:21:00 Test Item Value Reference Range Interpretation Comments ALT (test code = ALT) 27 See_Comment [Auto mated message] The system which ge nerated this result transmit valentina reference range : <=65. The reference range was not used to interpr et this result as abbey l/abnormal. [facility]2019-11-15 05:21:00 Test Item Value Reference Range Interpretation Comments AST (test code = AST) 27 See_Comment [Auto mated message] The system which ge nerated this result transmit valentina reference range : <=37. The reference range was not used to interpr et this result as abbey l/abnormal. [facility]2019-11-15 05:21:00 Test Item Value Reference Range Interpretation Comments Alk Phos (test code = Alk Phos) 136 39-136 [facility]2019-11-15 05:21:00 Test Item Value Reference Range Interpretation Comments Bili Total (test code = Bili Total) 0.5 0.2-1.3 [facility]2019-11-15 05:21:00 Test Item Value Reference Range Interpretation Comments B/C Ratio (test code = B/C Ratio) 17 1 6-25 [facility]2019-11-15 05:21:00 Test Item Value Reference Range Interpretation Comments Globulin (test code = Globulin) 4.0 2.7-4.2 [facility]2019-11-15 05:21:00 Test Item Value Reference Range Interpretation Comments A/G Ratio (test code = A/G Ratio) 0.8 1 0.7-1.6 [facility]2019-11-15 05:21:00 Test Item Value Reference Range Interpretation Comments Lactic Acid Lvl (test code = Lactic 0.9 0.5-2.2 Acid Lvl) [facility] [id number] 05:21:00 Test Item Value Reference Range Interpretation Comments INR (test code = INR) 1.08 1 0.85-1.17 [facility] [id number] 05:21:00 Test Item Value Reference Range Interpretation Comments PT (test code = PT) 13.8 s 12.0-14.7 [facility] [id number] 05:21:00 Test Item Value Reference Range Interpretation Comments PTT (test code = PTT) 23.3 s 22.9-35.8 [id number] 05:21:00 Test Item Value Reference Range Interpretation Comments Eosinophils # (test code 0.2 See_Comment [A utomated message] The = Eosinophils #) system ic h generated this result tra nsmitted reference range : <=0.5. The reference r sheryl was not used to int erpret this result as normal/abnormal . [facility]
[2021-04-12] MEDS ORDERED: NA CHLORIDE 0.9% 1,000 ML ONE ×2 (20:48→22:29)
[2021-04-12 21:06] LABS: Arterial Blood Carboxyhemoglob 1.5 % (0-1.5); Blood Gas Oxyhemoglobin 92.8 % (94-97); Blood O2 Saturation 95.3 % (92-98.5)
[2021-04-12] MEDS ORDERED: Meropenem 1000 MG/VIAL IV ONE (22:28)
[2021-04-12] MEDS ORDERED: NA CHLORIDE 0.9% 100 ML IV ONE (22:29)
[2021-04-12] MEDS ORDERED: PANTOPRAZOLE 40 MG INJ ONE ×3 (22:29→22:44)
[2021-04-12 22:38] LABS: Lymphocytes % 18.5 % (15.3-44.8); MPV 9.3 fL (7.6-11.3); RBC Red Blood Cell Count 1.96 M/uL (4.33-5.43)
[2021-04-12 22:43] LABS: Urine Blood Negative (Negative); Urine Glucose Negative (Negative); Urine Protein 2+ (Negative); Urine pH 5.5 (5.0-7.0)
[2021-04-12 22:46] LABS: Hematocrit 16.2 % (39.6-49.0)
[2021-04-12 23:26] LABS: Bilirubin Direct 0.2 mg/dL (0-0.2); Bilirubin Total 0.6 mg/dL (0.2-1.0); Protein, Total 5.8 g/dL (6.4-8.2)
[2021-04-12 23:27] LABS: Magnesium 1.9 mg/dL (1.8-2.4); Potassium 3.8 mmol/L (3.5-5.1); Troponin High Sensitivity 164.6 pg/mL (<58.9)
[2021-04-12 23:28] LABS: Protime INR 2.26
--- NOTE | 2021-04-12 23:47 | EDPHYS ---
Physician Documentation [facility] Name: Isiah Gaytan Age: 85 yrs Sex: Male : 1935 Arrival Date: 04/12/2021 Time: 20:20 Bed 3 Private MD: ED Physician Kevin Blackwell HPI: 04/12 21:13 This 85 yrs old Male presents to ER via EMS with complaints of WEAK, ALTERED, manish COUGH AND COVID POSITIVE. 21:13 The patient has shortness of breath at rest. Onset: The symptoms/episode began/occurred manish 3 day(s) ago. Duration: The symptoms are continuous, and are steadily getting worse. The patient's shortness of breath is aggravated by nothing, coughing, is alleviated by elevating head, application of supplemental oxygen. PALE , WEAK, COVID POSITIVE. The patient presents with decreased responsiveness. Possible causes: CVA or TIA, head injury, low blood sugar, sepsis, the patient lives in a retirement. 21:13 Severity of symptoms: At their worst the symptoms were moderate in the emergency manish department the symptoms are unchanged. Historical: - Allergies: 20:32 Azithromycin; lg3 20:32 Codeine; lg3 20:32 Keflex; lg3 - Home Meds: 20:32 aspirin 81 mg Oral chew 1 tab once daily [Active]; atorvastatin 80 mg Oral tab 1 tab lg3 once daily for atherosclerotic cardiovascular disease [Active]; carbidopa-levodopa 25-100 mg Oral tab 1 tab 3 times per day for Parkinsonism [Active]; Eliquis 5 mg Oral tab 1 tab 2 times per day [Active]; furosemide 40 mg Oral tab 1 tab once daily [Active]; sotalol 40 mg Oral tab 1 tab 2 times per day [Active]; Tramadol Oral [Active]; - PMHx: 20:32 Atrial fibrillation; CHF; Congestive heart failure; Gastroesophageal reflux disease; lg3 High Cholesterol; Hypertension; Myocardial infarction; non-hodgkin lymphoma; Parkinson's disease; - PSHx: 20:32 cardiac stents; lg3 - Immunization history:: Adult Immunizations up to date, Client reports receiving the 2nd dose of the Covid vaccine. - Social history:: Patient/guardian denies using alcohol, tobacco products, Smoking status: Patient/guardian denies using alcohol, tobacco products. - Family history:: not pertinent. ROS: 21:13 Eyes: Negative for injury, pain, redness, and discharge, ENT: Negative for injury, manish pain, and discharge, Neck: Negative for injury, pain, and swelling, Cardiovascular: Negative for chest pain, palpitations, and edema, Back: Negative for injury and pain, : Negative for injury, bleeding, discharge, and swelling, MS/Extremity: Negative for injury and deformity, Neuro: Negative for headache, weakness, numbness, tingling, and seizure, Psych: Negative for depression, anxiety, suicide ideation, homicidal ideation, and hallucinations, Allergy/Immunology: Negative for hives, rash, and allergies, Endocrine: Negative for neck swelling, polydipsia, polyuria, polyphagia, and marked weight changes. 21:13 Constitutional: Positive for fatigue, malaise. 21:13 Respiratory: Positive for cough, shortness of breath. 21:13 Abdomen/GI: Positive for nausea. 21:13 Skin: Positive for pallor. Exam: 21:13 Constitutional: The patient appears frail, lethargic, in obvious distress, obviously manish ill, pale. 21:13 Eyes: Periorbital structures: appear normal, Pupils: no acute changes, equal, round, and reactive to light and accomodation, Conjunctiva: pale, Corneas: are normal, Sclera: no appreciated abnormality, Anterior chamber: normal, no acute changes, Lids and lashes: appear normal. 21:13 Cardiovascular: Exam negative for arrhythmia, bradycardia, edema, gallop, JVD, murmur, Rhythm: irregularly irregular, Pulses: Pulses are 2+ in bilateral radial, brachial, femoral, popliteal, posterior tibial and and dorsalis pedis arteries.. 21:22 ECG was reviewed by the Attending Physician. manish 23:47 Abdomen/GI: Rectal exam: Prostate: normal, rectal tone normal, Stool: guaiac positive, manish hemorrhoid(s), are not appreciated, mass, is not appreciated, swelling, is not appreciated, Liver: no appreciated palpable abnormalities, Hernia: not appreciated. Vital Signs: 20:29 BP 104 / 59; Pulse 79; Resp 23 S; Pulse Ox 100% on 2 lpm NC; Weight 56.7 kg; Height 5 lg3 ft. 9 in. (175.26 cm) (R); Pain 0/10; 20:39 Temp 98.7(O); lg3 22:37 BP 105 / 66; Pulse 91; Resp 20 S; Pulse Ox 99% on R/A; lg3 04/13 00:00 BP 98 / 69; Pulse 110; Resp 22 S; Pulse Ox 100% on R/A; as6 01:00 BP 89 / 65; Pulse 102; Resp 22 S; Pulse Ox 98% on R/A; as6 01:45 BP 90 / 74; Pulse 126; Resp 17 S; Pulse Ox 98% on R/A; as6 01:45 BP 90 / 71; Pulse 105; Resp 24; Pulse Ox 98% on R/A; tw5 04/12 20:29 Body Mass Index 18.46 (56.70 kg, 175.26 cm) lg3 Procedures: 04/12 23:49 Central Line: the site was prepped with Betadine, in sterile fashion, a triple lumen manish catheter was inserted, in the right in 1 attempts. placement was verified, by blood return, the site was dressed with using sterile technique, the patient tolerated the procedure, well. MDM: 20:41 Patient medically screened. manish 21:19 Differential diagnosis: CHF exacerbation, Chronic Obstructive Pulmonary Disease manish Myocardial Infarction pneumonia, pulmonary edema, Sepsis. Antibiotic administration: ZOSYN. Differential Diagnosis Bronchitis Influenza Upper Respiratory Infection Sinusitis Pneumonia. Differential Diagnosis: CVA, electrolyte abnormality, hypoglycemia, intracranial bleed, pneumonia, sepsis, UTI, volume depletion. The patient's Wells Deep Vein Thrombosis Score was calculated as follows: Imm/Surg in last 4 wks (1.5 Pts) Total Score: 0-2 Pts- Low Risk. The patient's pulmonary embolism risk score was calculated as follows: patient has experienced immobilization or surgery in the last four weeks (1.5 Pts) Total Score: 0-2 points. This patient was found to be at low risk for a pulmonary embolism by using the Well's assessment criteria. Immunization status: Pneumococcal vaccine: Influenza vaccine: Data reviewed: vital signs, nurses notes, EMS record, lab test result(s), EKG, radiologic studies, CT scan, plain films. 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 Test interpretation: by ED physician or midlevel provider: ECG, plain radiologic studies. 04/12 20:44 Order name: Basic Metabolic Panel [facility] 04/12 20:44 Order name: CBC with Diff [facility] 04/12 20:44 Order name: LFT's [facility] 04/12 20:44 Order name: Magnesium; Complete Time: 23:41 [facility] 04/12 20:44 Order name: NT PRO-BNP; Complete Time: 23:41 [facility] 04/12 20:44 Order name: PT-INR; Complete Time: 23:41 [facility] 04/12 20:44 Order name: Troponin HS; Complete Time: 23:41 [facility] 04/12 20:44 Order name: Lactate [facility] 04/12 20:44 Order name: Urine Culture [facility] 04/12 20:44 Order name: Blood Culture Adult (2) [facility] 04/12 20:44 Order name: ABG; Complete Time: 21:13 [facility] 04/12 20:44 Order name: Basic Metabolic Panel; Complete Time: 23:41 [facility] 04/12 20:44 Order name: CBC with Automated Diff; Complete Time: 22:47 [facility] 04/12 20:44 Order name: Liver (Hepatic) Function; Complete Time: 23:41 [facility] 04/12 20:44 Order name: XRAY Chest (1 view) [facility] 04/12 20:44 Order name: EKG; Complete Time: 20:44 [facility] 04/12 20:44 Order name: Cardiac monitoring; Complete Time: 20:44 [facility] 04/12 20:44 Order name: CT Head Brain wo Cont [facility] 04/12 21:12 Order name: Type And Screen [facility] 04/12 21:21 Order name: CT Chest Abdomen Pelvis W/O Contrast [facility] 04/12 22:42 Order name: Urine Dipstick-Ancillary; Complete Time: 22:44 [facility] 04/12 23:31 Order name: Packed RBC Leukored [facility] 04/12 23:56 Order name: ABO/RH no charge [facility] 04/12 20:44 Order name: EKG - Nurse/Tech; Complete Time: 21:12 [facility] 04/12 20:44 Order name: IV Saline Lock; Complete Time: 22:31 [facility] 04/12 20:44 Order name: Labs collected and sent; Complete Time: 00:09 [facility] 04/12 20:44 Order name: O2 Per Protocol; Complete Time: 20:45 [facility] 04/12 20:44 Order name: O2 Sat Monitoring; Complete Time: 20:45 [facility] 04/12 20:44 Order name: Urine Dipstick-Ancillary (obtain specimen); Complete Time: 22:34 [facility] 04/12 21:12 Order name: Ashutosh; Complete Time: 22:31 manish EC:22 Rate is 88 beats/min. Rhythm is irregularly irregular. QRS [place] is Normal. PA interval manish is normal. QRS interval is normal. QT interval is normal. No Q waves. T waves are Normal. No ST changes noted. Clinical impression: Atrial Fibrillation and No evidence of ischemia. Interpreted by me. Reviewed by me. Administered Medications: 21:21 CANCELLED (Duplicate Order): ProTONIX (pantoprazole) 40 mg IVP once manish 23:02 Drug: ProTONIX (pantoprazole) 80 mg Route: IVP; Site: left hand; lg3 23:02 Follow up: Response: No adverse reaction lg3 23:33 Follow up: Response: No adverse reaction lg3 23:19 Drug: NS 0.9% 1000 ml Route: IV; Rate: 125 ml/hr; Site: right femoral; as6 04/13 01:48 Follow up: IV Status: Infusion continued upon admission tw5 04/12 23:19 Drug: Meropenem 1 grams Route: IV; Rate: per protocol; Site: right femoral; as6 23:33 Follow up: Response: No adverse reaction; IV Status: Completed infusion; IV Intake: lg3 100ml 04/13 01:40 Drug: ProTONIX (pantoprazole) 8 mg/hr Route: IV; Rate: 25 ml/hr; Site: right femoral; as6 01:47 Follow up: IV Status: Infusion continued upon admission tw5 Disposition Summary: 04/12/21 23:46 Hospitalization Ordered Hospitalization Status: Inpatient Admission manish Provider: Maikel Garvey cha Location: Telemetry/MedSurg (Inpatient) manish Condition: Serious manish Problem: new manish Symptoms: have improved manish Bed/Room Type: Standard manish Room Assignment: [id number](04/13/21 00:40) mw Diagnosis - GI Bleed/ Gastrointestinal hemorrhage, unspecified - upper manish - Anemia, unspecified manish - Altered mental status, unspecified manish - Persistent atrial fibrillation manish - Pleural effusion, not elsewhere classified - left large manish - intermediate (current) use of anticoagulants manish - Coronavirus infection, unspecified manish Forms: - Medication Reconciliation Form manish - SBAR form manish Signatures: Dispatcher [employer] EDMS Emmie Sheriff RN RN mw Anderson, Corey, MD MD cha Attema, Lee, RAILROAD CAR LOADER-C RAILROAD CAR LOADER-Cla1 Ruchi Suarez RN RN lg3 Teo Cardenas RN RN as6 Jennifer Wooten tw5 Corrections: (The following items were deleted from the chart) 04/12 21:21 21:12 ProTONIX (pantoprazole) 40 mg IVP once ordered. [facility] 23:42 23:42 SARS-COV-2 RT PCR ordered. EDMS EDMS 23:42 23:42 SARS-COV-2 RT PCR ordered. EDMS EDMS 04/13 00:40 04/12 23:46 manish daniels
--- NOTE | 2021-04-12 23:47 | ER ---
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 facility stated pt was having lg3 some altered mental status. upon arrival EMS stated that pt was connected to empty oxygen tank. EMS gave supplemental oxygen and sats sitting 98%-100% before departure from facility. per EMS, pt was diagnosed with covid pneumonia 8-9 days ago. 20:21 Method Of Arrival: EMS: [facility] lg3 20:29 Coronavirus screen: Client denies travel out of the [place] in the last 14 days. Client lg3 presents with at least one sign or symptom that may indicate coronavirus-19. Standard/surgical mask placed on the client. Provider contacted for isolation considerations. Client reports previous positive COVID test result. Ebola Screen: No symptoms or risks identified at this time. Initial Sepsis Screen: Does the patient meet any 2 criteria? No. Patient's initial sepsis screen is negative. Does the patient have a suspected source of infection? No. Patient's initial sepsis screen is negative. Risk Assessment: Do you want to hurt yourself or someone else? Patient reports no desire to harm self or others. Onset of symptoms is unknown. 20:29 Acuity: MARIOLA 3 lg3 Triage Assessment: 20:32 General: Appears in no apparent distress. comfortable, Behavior is calm, cooperative. lg3 Pain: Denies pain. EENT: No deficits noted. No signs and/or symptoms were reported regarding the EENT system. Neuro: No deficits noted. Level of Consciousness is awake, alert, obeys commands, Oriented to person, place, time, situation, Speech is normal. Cardiovascular: No deficits noted. Capillary refill < 3 seconds Clubbing of nail beds is absent JVD is absent Patient's skin is warm and dry. Cardiovascular: Denies chest pain. Respiratory: Airway is patent Trachea midline Respiratory effort is even, unlabored, Respiratory pattern is regular, symmetrical, Breath sounds with crackles bilaterally. Respiratory: Reports cough that is productive, Breath sounds are coarse bilaterally. GI: No deficits noted. No signs and/or symptoms were reported involving the gastrointestinal system. Abdomen is round non-distended, Bowel sounds present X 4 quads. : No deficits noted. No signs and/or symptoms were reported regarding the genitourinary system. Derm: No deficits noted. No signs and/or symptoms reported regarding the dermatologic system. Skin is intact, Skin is. Derm: Skin is thin, Skin is dry. Musculoskeletal: Reports weakness in right leg and left leg. Historical: - Allergies: 20:32 Azithromycin; lg3 20:32 Codeine; lg3 20:32 Keflex; lg3 - Home Meds: 20:32 aspirin 81 mg Oral chew 1 tab once daily [Active]; atorvastatin 80 mg Oral tab 1 tab lg3 once daily for atherosclerotic cardiovascular disease [Active]; carbidopa-levodopa 25-100 mg Oral tab 1 tab 3 times per day for Parkinsonism [Active]; Eliquis 5 mg Oral tab 1 tab 2 times per day [Active]; furosemide 40 mg Oral tab 1 tab once daily [Active]; sotalol 40 mg Oral tab 1 tab 2 times per day [Active]; Tramadol Oral [Active]; - PMHx: 20:32 Atrial fibrillation; CHF; Congestive heart failure; Gastroesophageal reflux disease; lg3 High Cholesterol; Hypertension; Myocardial infarction; non-hodgkin lymphoma; Parkinson's disease; - PSHx: 20:32 cardiac stents; lg3 - Immunization history:: Adult Immunizations up to date, Client reports receiving the 2nd dose of the Covid vaccine. - Social history:: Patient/guardian denies using alcohol, tobacco products, Smoking status: Patient/guardian denies using alcohol, tobacco products. - Family history:: not pertinent. Screenin:40 Abuse screen: Denies threats or abuse. Denies injuries from another. Nutritional lg3 screening: No deficits noted. Tuberculosis screening: No symptoms or risk factors identified. Fall Risk No fall in past 12 months (0 pts). Secondary diagnosis (15 points) impaired mobility, No IV (0 pts). Ambulatory Aid- None/Bed Rest/Nurse Assist (0 pts). Gait- Impaired (20 pts.). Mental Status- Overestimates/Forgets Limitations (15 pts.). Assessment: 20:39 General: see triage assessment . lg3 20:50 General: pt placed on room air for ABG. oxygen saturation at 100% while on room air. pt lg3 became slightly altered with stable vitals. notified MD. attempting to retrieve pt records from facility. . 21:11 General: attempted to call [facility] for pt records. sent to voice mail. will try [facility] again.. 21:19 General: attempted to call [facility] for pt records. no answer and sent to voicemail. lg3 notified alo and . 21:24 General: Alo attempted to call for pt records. sent to voice mail . lg3 22:19 Reassessment: Patient appears in no apparent distress at this time. No changes from 3 previously documented assessment. Patient and/or family updated on plan of care and expected duration. Pain level reassessed. Patient denies pain at this time. General: at bedside. 04/13 01:45 General: Spoke to [facility] on behalf of primary nurse. He was informed blood transfusion tw5 has not began in ER. He stated "that is fine I will take care of it up here." . Vital Signs: 04/12 20:29 BP 104 / 59; Pulse 79; Resp 23 S; Pulse Ox 100% on 2 lpm NC; Weight 56.7 kg; Height 5 lg3 ft. 9 in. (175.26 cm) (R); Pain 0/10; 20:39 Temp 98.7(O); lg3 22:37 BP 105 / 66; Pulse 91; Resp 20 S; Pulse Ox 99% on R/A; lg3 04/13 00:00 BP 98 / 69; Pulse 110; Resp 22 S; Pulse Ox 100% on R/A; as6 01:00 BP 89 / 65; Pulse 102; Resp 22 S; Pulse Ox 98% on R/A; as6 01:45 BP 90 / 74; Pulse 126; Resp 17 S; Pulse Ox 98% on R/A; as6 01:45 BP 90 / 71; Pulse 105; Resp 24; Pulse Ox 98% on R/A; tw5 04/12 20:29 Body Mass Index 18.46 (56.70 kg, 175.26 cm) lg3 ED Course: 04/12 20:20 Patient arrived in ED. la1 20:21 Ruchi Suarez, RN is Primary Nurse. lg3 20:32 Triage completed. lg3 20:32 Arm band placed on right wrist. lg3 20:40 Patient has correct armband on for positive identification. Placed in gown. Bed in low lg3 position. Call light in reach. Side rails up X2. satellite project site monitor on. Pulse ox on. NIBP on. Door closed. Noise minimized. Warm blanket given. 20:41 Kevin Blackwell MD is Attending Physician. [facility] 21:30 XRAY Chest (1 view) In Process Unspecified. EDMS 21:35 CT Head Brain wo Cont In Process Unspecified. EDMS 21:35 CT Chest Abdomen Pelvis W/O Contrast In Process Unspecified. EDMS 22:20 Missed attempt(s): Bleeding controlled, band aid applied, catheter tip intact. oe 22:25 Inserted saline lock: 22 gauge in left hand, using aseptic technique. Blood collected. oe 22:35 Urine Culture Sent. lg3 22:35 Boykin cath inserted, using sterile technique, 16 Fr., by or, balloon inflated, to as6 gravity drainage, urine specimen collected. 22:44 Notified ED physician of a critical lab result(s). 5.2 H and H 16.2. tw5 23:20 Assisted provider with central line placement. Set up central line tray. Triple lumen as6 line placed in right femoral. Line placed by Kevin Blackwell MD Placement verified by blood return, Dressed with Tegaderm, Blood was collected. Patient tolerated well. Was handwashing/sanitizing done immediately prior to procedure? Yes. Was patient positioned to in a way to prevent air embolism? Yes. Was procedure site sterilized? Yes, with chlorhexidine. Was the site allowed to dry? Yes. Was local anesthetic and/or sedation utilized? Yes. During the procedure, did the Practitioner(s) maintain a sterile field? Yes. Were unused ports clamped during insertion? Yes. Was a 2nd qualified MD obtained after 3 unsuccessful insertion attempts? No. Was blood aspirated from each lumen? Yes. After the procedure, did the Practitioner(s) clean the site and apply a sterile dressing? Yes. 23:45 Maikel Garvey MD is Hospitalizing Provider. [facility] 04/13 01:43 Patient admitted, IV remains in place. 01:48 Basic Metabolic Panel Sent. 01:48 CBC with Diff Sent. 01:48 LFT's Sent. tw Administered Medications: 04/12 21:21 CANCELLED (Duplicate Order): ProTONIX (pantoprazole) 40 mg IVP once manish 23:02 Drug: ProTONIX (pantoprazole) 80 mg Route: IVP; Site: left hand; lg3 23:02 Follow up: Response: No adverse reaction lg3 23:33 Follow up: Response: No adverse reaction lg3 23:19 Drug: NS 0.9% 1000 ml Route: IV; Rate: 125 ml/hr; Site: right femoral; as6 04/13 01:48 Follow up: IV Status: Infusion continued upon admission tw04/12 23:19 Drug: Meropenem 1 grams Route: IV; Rate: per protocol; Site: right femoral; as6 23:33 Follow up: Response: No adverse reaction; IV Status: Completed infusion; IV Intake: lg3 100ml 04/13 01:40 Drug: ProTONIX (pantoprazole) 8 mg/hr Route: IV; Rate: 25 ml/hr; Site: right femoral; as6 01:47 Follow up: IV Status: Infusion continued upon admission tw5 Intake: 04/12 23:33 IV: 100ml; Total: 100ml. lg3 Outcome: 23:46 Decision to Hospitalize by Provider. [facility] 04/13 01:33 Admitted to Med/surg via stretcher, room 403, with chart, Report called to report tw5 called to [facility] Condition: stable Instructed on the need for admit. 01:48 Patient left the ED. tw Signatures: Dispatcher [employer] EDMS Kevin Blackwell MD MD cha Attema, Lee, NURSING CONSULTANT-C NURSING CONSULTANT-Cla1 Nikita Cunningham Lacie, RN RN susan3 Jennifer Wooten tw5 Teo Cardenas RN RN as6
[2021-04-13] MEDS ORDERED: PANTOPRAZOLE 40 MG INJ ONE (00:15)
--- NOTE | 2021-04-13 00:21 | P.HP ---
Certification for Inpatient Patient admitted to: Inpatient With expected LOS: >2 Midnights Patient will require the following post-hospital care: Hospice Practitioner: I am a practitioner with admitting privileges, knowledge of patient current condition, hospital course, and medical plan of care. Services: Services provided to patient in accordance with Admission requirements found in Title 42 Section 412.3 of the Code of Federal Regulations Patient History Date of Service: 04/13/21 Primary Care Provider: Dr. Truong [facility] Reason for admission: GI bleed History of Present Illness: 85-year-old male with history of non-Hodgkin's lymphoma, A. fib on chronic coagulation, CHF, hypertension, hyperlipidemia and CAD presents the emergency department for shortness of breath. Patient was released from [facility] a week or 2 ago after being told that his cancer was terminal and there were no more treatment options, patient was discharged skilled nursing shortly after tested positive for Covid. Patient was sent here for evaluation of shortness of breath. Patient was evaluated here in the emergency department his hemoglobin dropped to 5.2 from 7.9 yesterday troponin 164.6 BNP 34,442 urinalysis with trace leuk esterase CT chest abdomen pelvis demonstrated small right and moderate to large left layering pleural effusion, small pericardial effusion, peritoneal ascites, infiltrative soft tissue mass measuring at least 6 cm which could arise in the posterior gastric fundus, left adrenal gland or pancreatic tail. Bulky periaortic lymphadenopathy which could reflect a primary lesion or all these findings represent metastatic disease. Patient's who is MPOA at bedside Jacquie aware of these findings, patient was previously DNR when discharged from [facility], was made aware of dropping hemoglobin she was okay with him having a transfusion at this time but did not want any other aggressive measures including endoscopy or surgery. Discussed case with MPOA and ED physician plan is for comfort measures and initiation of hospice likely tomorrow. Patient's does not want any escalation of treatment including vasopressor therapy, dialysis, surgery, endoscopy. Will admit for comfort measures and likely transition to hospice tomorrow. Allergies cephalexin [From Keflex] Allergy (Verified 02/06/21 21:15) Unknown codeine Allergy (Verified 02/06/21 21:15) Unknown piperacillin [From Zosyn] Allergy (Verified 02/06/21 21:15) Itching tazobactam [From Zosyn] Allergy (Verified 02/06/21 21:15) Itching Home Medications: Apixaban [Eliquis] 5 mg PO BID 08/31/20 Sotalol HCl [Sotalol AF] 80 mg PO BID 08/31/20 Acetaminophen [Tylenol Extra Strength] 2 tab PO Q8H PRN 02/06/21 Tramadol HCl [Ultram] 1 tab PO Q6H PRN 02/06/21 - Past Medical/Surgical History Diabetic: No -: Hypertension -: Squamous and basal cell Carcinoma -: CAD -: Osteoarthritis -: Chronic diastolic congestive heart failure -: Chronic atrial fibrillation on chronic anticoagulation therapy -: Knee surgery -: back surgery -: elbow surgery -: Cardiac stents x3 -: toe sx Psychosocial/ Personal History: Patient lives at home with his . - Family History Father -: Heart disease Mother -: Diabetes, Cancer Notes: Colon cancer - Social History Alcohol use: No CD- Drugs: No Caffeine use: Yes Place of Residence: [place] Review of Systems 10-point ROS is otherwise unremarkable General: Weakness, As per HPI Respiratory: Cough Gastrointestinal: As per HPI Physical Examination - Physical Exam General: Cachectic, Confused HEENT: Atraumatic, PERRLA, Other (Skin pale), EOMI, Sclerae nonicteric Neck: 2+ carotid pulse no bruit, No LAD, Without JVD or thyroid abnormality Respiratory: Expiratory wheezes Cardiovascular: Regular rate/rhythm, Normal S1 S2 Gastrointestinal: Normal bowel sounds, No tenderness Musculoskeletal: No tenderness Integumentary: No rashes Neurological: Normal speech, Normal tone, Normal affect Urinary: Boykin catheter - Studies Laboratory Data (last 24 hrs) 04/12/21 22:48: PT 26.2 H, INR 2.26 04/12/21 22:23: WBC 5.50 D, Hgb 5.2 L* D, Hct 16.2 L* D, Plt Count 152 04/12/21 22:23: Sodium 140, Potassium 3.8, BUN 25 H, Creatinine 0.91, Glucose 95, Magnesium 1.9, Total Bilirubin 0.6, AST 45 H, ALT 8 L, Alkaline Phosphatase 81 Assessment and Plan - Plan Assessment: Acute blood loss anemia likely related to intra-abdominal mass/non-Hodgkin's lymphoma Atrial fibrillation on chronic anticoagulation therapy Chronic diastolic congestive heart failure Parkinson's Hypertension Hyperlipidemia GERD CAD Plan: Patient's Jacquie who is MPOA phone number [phone] or [phone] wishes for patient to be DNR with comfort measures for time being and hopeful transition to hospice ideally inpatient tomorrow. She was okay with patient receiving blood transfusion in the emergency department at this time which has been ordered and will be received, will repeat H&H after transfusion, she reports she is not sure if she would want to have any additional blood transfusions or not but does not want any further escalation in treatment including endoscopy, dialysis, surgery, vasopressor therapy. Will provide medication as needed for pain/anxiety social work professor consult in place for initiation of hospice. DVT PPX: None, comfort measures, likely hospice in AM Code status:DNR see above Discharge Plan: Other (inpatient hospice) Plan to discharge in: Unknown - Advance Directives Does patient have a Living Will: Yes Does patient have a Durable POA for Healthcare: No - Code Status/Comfort Care Code Status Assessed: Yes (DNR) Critical Care: No Time Spent Managing Pts Care (In Minutes): 55
[2021-04-13] MEDS ORDERED: NA CHLORIDE 0.9% 250 ML ONE ×2 (01:33→02:33)
[2021-04-13] MEDS ORDERED: ONDANSETRON 4 MG/2 ML VIAL IV PRN (02:27)
[2021-04-13] MEDS ORDERED: DIPHENHYDRAMINE 50 MG/ML VIAL IV ONE (03:07)
[2021-04-13] MEDS ORDERED: ACETAMINOPHEN 325 MG TABLET PO ONE (03:07)
[2021-04-13 04:28] VITALS: BMI 18.4
--- NOTE | 2021-04-13 07:46 | RAD REPORT ---
[facility]30 pm CLINICAL HISTORY: Cough COMPARISON: April 11, 2021 FINDINGS: No change in moderate to large left and small right pleural effusions. Left basilar atelectasis The heart is mildly enlarged
[2021-04-13] MEDS: MORPHINE 2 MG/ML SYR IV PRN ×2 (07:49→12:40)
[2021-04-13] MEDS ORDERED: SCOPOLAMINE HYDROBROMIDE PATCH TD SCH (09:00)
--- NOTE | 2021-04-13 09:48 | RAD REPORT ---
EXAM DESCRIPTION: CT - Chest Abd Pelvis Wo Con - 04/13/2021 6:44 am CLINICAL HISTORY: 85 years Male Cough;Abdominal distention TECHNIQUE: Contiguous axial images obtained through the chest, abdomen, and pelvis without IV contra st administration. Coronal and sagittal reformatted images provided. This CT exam was performed according to our departmental dose-optimization program, which includes on e or more of the following dose reduction techniques: automated exposure control, adjustment of the m A and/or kV according to patient size, and/or use of iterative reconstruction technique. COMPARISON: No prior exams provided for comparison. FINDINGS: There is a focal scanner artifact near the center of all images. There are small right and moderate to large left layering pleural effusions. No pneumothorax. Groundglass airspace infiltrates in the anterior aspects of both lung apices could reflect prior radi ation. There is dependent/compressive atelectasis in both lungs, left greater than right. Scattered n onocclusive secretions in the central airways without central airway obstruction. Borderline cardiac size with a small pericardial effusion. Atherosclerosis without thoracic aortic an eurysm. No visualized lymphadenopathy in the chest. Chronic arthrosis of both shoulders, right greater than left. Mild chronic degenerative changes throu ghout the thoracic spine. No acute fracture or aggressive osseous lesion in the chest. There is diffuse subcutaneous anasarca. There is a small to moderate amount of diffuse peritoneal ascites. No free intraperitoneal air or acu te retroperitoneal hemorrhage. The unenhanced liver, biliary tree, gallbladder, pancreas, spleen, right adrenal gland, and left kidn ey are normal. There is an infiltrative soft tissue lesion posteromedial to the gastric fundus extending inferiorly with obscuration of the posterior gastric fundus, left adrenal gland, and pancreatic tail. There are associated dystrophic calcifications in this lesion measures up to approximately 6 cm. There are bulk y left and moderate right periaortic lymph nodes more inferiorly, measuring up to 3.5 cm medial to th e left kidney. No pelvic sidewall lymphadenopathy. The remainder of the bowel demonstrates no obstruction or pneumatosis. Punctate nonobstructing intrarenal calculus on the right. Mild thickening of the urinary bladder wall with mild enlargement of the prostate. Chronic degenerative changes in the lumbar spine. Severe osteoarthritis of the left hip. Healed right pubic and left sacral fractures. Postsurgical changes in the right proximal femur. IMPRESSION: Small right and moderate to large left layering pleural effusions. Compressive atelectas is bilaterally. Possible fibrosis in the anterior lung apices, correlate for history of radiation Small pericardial effusion. Diffuse subcutaneous anasarca. Peritoneal ascites. Infiltrative soft tissue mass measuring at least 6 cm which could arise from the posterior gastric fu ndus, left adrenal gland, or pancreatic tail. Bulky periaortic lymphadenopathy. Findings could reflec t a primary lesion or all these findings could reflect metastatic disease. Consider further evaluatio n with oral and IV contrast-enhanced CT scan of the abdomen and pelvis. Electronically signed by: Abby Harris MD 04/12/2021 10:35 PM MUSCULOSKELETAL PHYSICIAN Due to temporary technical issues with the PACS/Fluency reporting system, reports are being signed by the in house radiologist without review as a courtesy to ensure prompt reporting. The interpreting r adiologist is fully responsible for the content of the report.
[2021-04-13] MEDS: LORazepam 2 MG/ML VIAL IV PRN ×2 (09:51→14:32)
--- NOTE | 2021-04-13 09:59 | RAD REPORT ---
EXAM DESCRIPTION: CT - Head Brain Wo Cont - 04/13/2021 6:44 am CLINICAL HISTORY: MENTAL STATUS CHANGE COMPARISON: 04/27/2019 TECHNIQUE: Contiguous axial CT images of the head were obtained. Coronal and sagittal reconstructions were created from the axial data. This exam was performed according to our departmental dose-optimization program, which includes autom ated exposure control, adjustment of the mA and/or kV according to patient size and/or use of iterati ve reconstruction technique. FINDINGS: There is no evidence of acute mass, mass effect, midline shift or hemorrhage. The ventricl es and extra-axial CSF spaces are unremarkable. The brain parenchyma appears normal for the patient's age. No acute abnormalities of the bones is seen. IMPRESSION: No acute intracranial abnormality. Electronically signed by: Cesar Holland 04/12/2021 10:23 PM DESIGN DRAFTSMAN Due to temporary technical issues with the PACS/Fluency reporting system, reports are being signed by the in house radiologist without review as a courtesy to ensure prompt reporting. The interpreting r adiologist is fully responsible for the content of the report.
[2021-04-13 10:56] LABS: Absolute Lymphocytes (CBC) 0.7 K/uL (0.7-4.9); Hematocrit 31.1 % (39.6-49.0); Lymphocytes % 14.7 % (15.3-44.8); RBC Red Blood Cell Count 3.66 M/uL (4.33-5.43)
--- NOTE | 2021-04-13 11:15 | EKG ---
Test Date: 2021-04-12 Test Time: 21:06:49 Clay Mixer: CASE MEASUREMENT RESULTS: Intervals: Rate: 88 [place]: QRSD: 76 QT: 278 QTc: 336 [place]: P: [place]: QRS: 13 T: 223 INTERPRETIVE STATEMENTS: Atrial fibrillation Low voltage QRS Cannot rule out Anterior infarct, age undetermined Abnormal ECG Compared to ECG 04/11/2021 15:05:09 Low QRS voltage now present Myocardial infarct finding now present ST (T wave) deviation no longer present Electronically Signed On 04-13-21 11:13:42 DIRECTOR AUTO by Pollo Navarro
[2021-04-13 11:39] VITALS: BP 84/55; TEMP 96.5
--- NOTE | 2021-04-13 13:07 | P.PN ---
Subjective Date of Service: 04/13/21 Primary Care Provider: Dr. Truong [facility] Chief Complaint: GI bleed Subjective: No new changes (seen Family agreed to comfort care now) Physical Examination - Vital Signs Temperature: 96.5 F Blood Pressure: 84/55 Pulse: 133 Respirations: 16 Pulse Ox (%): 90 - Studies Laboratory Data (last 24 hrs) 04/12/21 22:48: PT 26.2 H, INR 2.26 04/12/21 22:23: WBC 5.50 D, Hgb 5.2 L* D, Hct 16.2 L* D, Plt Count 152 04/12/21 22:23: Sodium 140, Potassium 3.8, BUN 25 H, Creatinine 0.91, Glucose 95, Magnesium 1.9, Total Bilirubin 0.6, AST 45 H, ALT 8 L, Alkaline Phosphatase 81 Microbiology Data (last 24 hrs): 04/12/21 22:39 Blood - Blood Anaerobic Blood Culture - Final Assessment And Plan - Current Problems (Diagnosis) (1) Atrial fibrillation Current Visit: No Status: Acute (2) CAD (coronary artery disease) Onset Date: 05/09/17 Current Visit: No Status: Acute Qualifiers: (3) GERD (gastroesophageal reflux disease) Current Visit: No Status: Acute (4) History of skin cancer Current Visit: No Status: Acute Physician Review: Patient Assessed, Agree with Above Assessment and Plan Physician Review Additional Text: 04/13/21 13:05 - Physical Exam General: Cachectic, obtunded, nasal cannula out HEENT: Atraumatic, PERRLA, Other (Skin pale), EOMI, Sclerae nonicteric Neck: 2+ carotid pulse no bruit, No LAD, Without JVD or thyroid abnormality Respiratory: Expiratory wheezes Cardiovascular: Regular rate/rhythm, Normal S1 S2 Gastrointestinal: Normal bowel sounds, No tenderness Musculoskeletal: No tenderness Integumentary: No rashes Neurological: Lethargic/obtunded, on nasal cannula O2 Urinary: Boykin catheter Assessment and Plan - Plan Assessment: Acute blood loss anemia likely related to intra-abdominal mass/non-Hodgkin's lymphoma Atrial fibrillation on chronic anticoagulation therapy Chronic diastolic congestive heart failure Parkinson's Hypertension Hyperlipidemia GERD CAD Plan: -Patient is now DNR and family wishes for comfort care We will hold off further management plans IV morphine as needed Case management to consult hospice for further determination of hospice care Continue DNR status Continue supplemental O2 for comfort Code status:DNR see above Discharge Plan: Other (inpatient hospice) Plan to discharge in: Unknown - Advance Directives Does patient have a Living Will: Yes Does patient have a Durable POA for Healthcare: No - Code Status/Comfort Care Code Status Assessed: Yes (DNR) Time Spent Managing PTS Care (In Minutes): 30
[2021-04-13] MEDS ORDERED: ENSURE ENLIVE 237 ML CAN PO SCH (14:00)
--- NOTE | 2021-04-13 14:59 | P.DS ---
Admission Date: 04/13/21 Discharge Date: 04/13/21 Primary Care Provider: Dr. Truong [facility] Disposition: HOSPICE-HOME Discharge Condition: CRITICAL Reason for Admission: GI bleed - Problems (1) Atrial fibrillation Current Visit: No Status: Acute (2) CAD (coronary artery disease) Onset Date: 05/09/17 Current Visit: No Status: Acute Qualifiers: (3) GERD (gastroesophageal reflux disease) Current Visit: No Status: Acute (4) History of skin cancer Current Visit: No Status: Acute Hospital Course: - Physical Exam General: Cachectic, obtunded, nasal cannula out HEENT: Atraumatic, PERRLA, Other (Skin pale), EOMI, Sclerae nonicteric Neck: 2+ carotid pulse no bruit, No LAD, Without JVD or thyroid abnormality Respiratory: Expiratory wheezes Cardiovascular: Regular rate/rhythm, Normal S1 S2 Gastrointestinal: Normal bowel sounds, No tenderness Musculoskeletal: No tenderness Integumentary: No rashes Neurological: Lethargic/obtunded, on nasal cannula O2 Urinary: Boykin catheter Assessment and Plan - Plan Assessment: Acute blood loss anemia likely related to intra-abdominal mass/non-Hodgkin's lymphoma Atrial fibrillation on chronic anticoagulation therapy Chronic diastolic congestive heart failure Parkinson's Hypertension Hyperlipidemia GERD CAD Plan: -Patient is now DNR and family wishes for comfort care We will hold off further management plans IV morphine as needed Case management to consult hospice for further determination of hospice care Continue DNR status Continue supplemental O2 for comfort Vital Signs/Physical Exam: Temp Pulse Resp BP Pulse Ox 96.5 F L 133 H 16 84/55 L 90 L 04/13/21 13:06 04/13/21 13:06 04/13/21 13:06 04/13/21 13:06 04/13/21 13:06 Laboratory Data at Discharge: WBC 5.10 K/uL (4.3-10.9) 04/13/21 10:45 Hgb 9.9 g/dL (13.6-17.9) L D 04/13/21 10:45 Hct 31.1 % (39.6-49.0) L D 04/13/21 10:45 Plt Count 113 K/uL (152-406) L D 04/13/21 10:45 PT 26.2 SECONDS (9.5-12.5) H 04/12/21 22:48 INR 2.26 04/12/21 22:48 Sodium 140 mmol/L (136-145) 04/12/21 22:23 Potassium 3.8 mmol/L (3.5-5.1) 04/12/21 22:23 BUN 25 mg/dL (7-18) H 04/12/21 22:23 Creatinine 0.91 mg/dL (0.55-1.3) 04/12/21 22:23 Glucose 95 mg/dL (74-106) 04/12/21 22:23 Magnesium 1.9 mg/dL (1.8-2.4) 04/12/21 22:23 Total Bilirubin 0.6 mg/dL (0.2-1.0) 04/12/21 22:23 AST 45 U/L (15-37) H 04/12/21 22:23 ALT 8 U/L (12-78) L 04/12/21 22:23 Alkaline Phosphatase 81 U/L (45-117) 04/12/21 22:23 Home Medications: Apixaban [Eliquis] 5 mg PO Q12H 08/31/20 Acetaminophen [Tylenol Extra Strength] 2 tab PO Q6H PRN 02/06/21 Tramadol HCl [Ultram] 1 tab PO Q6H PRN 02/06/21 Amlodipine Besylate 1 tab PO DAILY 04/13/21 Atorvastatin Calcium [Lipitor] 1 tab PO DAILY 04/13/21 Carbidopa/Levodopa [Carbidopa-Levodopa 25-100 Tab] 1 tab PO TID 04/13/21 Clopidogrel Bisulfate [Plavix] 1 tab PO DAILY 04/13/21 Famotidine [Pepcid] 1 tab PO Q12H PRN 04/13/21 Furosemide [Lasix] 1 tab PO DAILY 04/13/21 Megestrol Acetate 10 ml PO DAILY 04/13/21 Polyethylene Glycol 3350 [Miralax] 1 pkt PO DAILY 04/13/21 Promethazine Inj [Phenergan -Inj*] 1 ml IM Q8H PRN 04/13/21 Sennosides/Docusate Sodium [Senna-Docusate Sodium Tablet] 2 tab PO DAILY 04/13/21 Sotalol HCl [Betapace*] 1 tab PO Q12H 04/13/21 Tamsulosin HCl 1 cap PO BID 04/13/21 Followup: Unknown,U [Primary Care Provider] - Time spent managing pt's care (in minutes): 35
[2021-04-13 15:24] VITALS: O2SAT 90
== END 2021-04-13 15:10 | disposition hospice, inpatient (51) | DRG 840 ==
LOC: ER 20:18 → ERHOLD 04-13 00:23 → 4TH 04-13 01:26
PROVIDERS: ADMIT Internal Medicine; ATTEND Internal Medicine
DX: C85.93 Non-Hodgkin lymphoma, unspecified, intra-abdominal lymph nodes (principal); U07.1 COVID-19; I48.19 Other persistent atrial fibrillation; K92.2 Gastrointestinal hemorrhage, unspecified; I50.32 Chronic diastolic (congestive) heart failure; R64 Cachexia; Z68.1 Body mass index [BMI] 19.9 or less, adult; D62 Acute posthemorrhagic anemia; I11.0 Hypertensive heart disease with heart failure; E78.5 Hyperlipidemia, unspecified; I25.10 Atherosclerotic heart disease of native coronary artery without angina pectoris; G20 Parkinson's disease; K21.9 Gastro-esophageal reflux disease without esophagitis; I25.2 Old myocardial infarction; Z66 Do not resuscitate; Z88.1 Allergy status to other antibiotic agents; Z88.5 Allergy status to narcotic agent; Z79.82 Long term (current) use of aspirin; Z79.899 Other long term (current) drug therapy; Z79.01 Long term (current) use of anticoagulants; Z95.5 Presence of coronary angioplasty implant and graft; Z85.828 Personal history of other malignant neoplasm of skin
CPT/HCPCS: 36415; 70450; 71045; 71250; 74176; 80048; 80076; 81003; 82805; 83605; 83735; 83880; 84484; 85025; 85610; 86850; 86900; 86901; 87040; 87086; 87088; 93005; 96374; 99285; C9113; J1200; J2185; J2270; J7030; J7050; P9016; U0003

== ENCOUNTER 2021-04-13 15:43 | Inpatient (IN) | payer OTHER ==
[2021-04-13 15:48] VITALS: BMI 18.4
--- OUTSIDE RECORDS SUMMARY | 2021-04-13 15:51 | XMS REPORT | Clinical Summary ---
:1935 Author Organization [facility] MD Pedro [facility] Address [address] [place] [address] Care Team Providers Name Role Phone Kuldeep [...] 51 g Active (PREVIDENT) 1.1 % daily. [place] 9 dental teeth with creamIndications: cream and [...] likely . He should continue with physical education specialist apy as he is [...] Added automatically from request for tabitha nickersony [id number] Encounter for other preprocedural examination 09/19/19 Overview: [...] within bilateral vertebral arteries OSH records from [facility]iology reviewed [facility] 05/09/17: LAD prox patent st ent X 2, mid 95% successful PCI to LAD Echocardiogram: 05/08/17: normal LVH, 60- 65%, LVH, aortic valve sclerosis, mild pHTN Stress test 07/09/18: adenosine nuclear s tress: mildly abnormal myocardial perfusion (low risk scan based on my discussion with his home patient care provider) per Cardiology note 10/02/18 Squamous cell carcinoma [...] Garcia, lymphoma of [facility] (Primary Dx) 03/08/2021 Orders Only Lymphoma and Myeloma Britany Tracy, SAFETY SITTER 03/07/2021 Hospital Encounter Radiation Oncology Roshan Sauceda MD 03/03/2021 Anesthesia Event Anesthesiology Adolph Murphy MD 03/02/2021 Anesthesia Event Radiology Bill Israel MD Joseph, [place], LPN RN 03/02/2021 Travel 02/28/2021 Anesthesia Event Radiology Olena [...] Atrial fibrillation, not otherwise speci fied; Carlyle Stoo Unexplained fal ls; MD Miguelangel Mild cognitive [...] John, SARS-CoV-2 vacc ination MD Sven after 04/13/2020 Surgical History Surgery Date Site/Laterality Comments BACK SURGERY 02/26/1997 - 02/25/1998 CORONARY ANGIOPLASTY 08/04/2010 2 Xience V ALIZA stents placed WITH STENT PLACEMENT in proximal LAD CORONARY ANGIOPLASTY 05/09/2017 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 hospitlilized x 10 days. 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 OR SUB GRFT 09/19/2018 Right Procedure: APPLI CATION OF F/S/N/H/F/G/M/D /<100SCM SKIN ROJAS BSTITUTE GRAFT TO /<1ST 25 SCM SCALP; Surgeon: Roshan Sauceda MD; Loca tion: MAIN OR; Service: HN - HEAD & NECK SURGERY Medical devices from this surgery are in t he Implants section. 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 OR FREE MUSC-SKIN FLAP 10/10/2018 Back/Right Procedure : FREE MUSCLE OR W/MICROVASC ANAST MYOCUTANEOUS F LAP WITH MICRVASCULAR TUCKER STOMOSIS; Surgeon: Charles Moreno MD; Location: MAIN O R; Service: PLS - PLASTIC ROJAS RGERY Medical devices from this surgery are in t he Implants section. OR SPLIT GRFT 10/10/2018 Thigh/Right Procedure: SPLIT THICKNESS TRUNK,ARM,LEG <100 SQCM SKIN GRA FT OF TRUNK/ARM OR LEG [id number]; Rojas rgeon: Charles Moreno MD; Loca tion: MAIN OR; Service: PL S - PLASTIC SURGERY Medical devices from this surgery are in t he Implants section. OR CHG FLUOROSCOPY UP TO 10/30/2018 Right Procedu re: FLUOROSCOPY; 1 HOUR PHYSICIAN/QHP Surgeon: Srinivasa Simmons MD; TIME Location: MAIN O R; Service: ORTHOPEDIC ONCOL OGY Medical devices from this surgery are in t he Implants section. OR OPEN FIX 10/30/2018 Hip/Right Procedure: OPEN REDUCTION [...] carcinoma of skin 2015 Coronary arteriosclerosis 2011 IA n 2010 with had chest pains. sp cardiac stents x 2 (reportedly had another IA durin g procedure). pt was started on [...] Comments Blood Pressure 101/68 03/24/2021 3:29 PM CHIEF CONSOLE OPERATOR Pulse 79 03/24/2021 3:29 PM CHIEF CONSOLE OPERATOR Temperature 37.1 C (98.8 F) 03/24/2021 3:29 PM CHIEF CONSOLE OPERATOR Respiratory Rate 18 03/24/2021 3:29 PM CHIEF CONSOLE OPERATOR Oxygen Saturation 96% 03/24/2021 3:29 PM CHIEF CONSOLE OPERATOR Inhaled Oxygen Concentration - - Weight 65.2 kg (143 lb 11.8 oz) 03/24/2021 4:48 AM CHIEF CONSOLE OPERATOR Height 170 cm (5' 6.93") 02/24/2021 6:09 AM CHIEF CONSOLE OPERATOR Body Mass Index 22.56 02/24/2021 6:09 AM CHIEF CONSOLE OPERATOR Plan of Treatment Health Maintenance Due Date Last Done Comments COVID-19 Vaccination (1) 1947 Implants Implanted Type Area Residential Youth Counselor Device Shelf Model / Identifier Expiration Serial / Date Lot Pharmacy Specialist Microvascular Anastomotic Device 2.5mm - [id number] Card ioPulm Scalp [employer] JOHN 04/24/2023 [id number] / Implanted: Qty: 1 on 10/10/2018 by Charles Moreno MD at [facility] / [id number] Biomet Hip Frac Nail 11*400mm Rt Implant Right: [employer] 06/10/2028 [id number] / Implanted: Qty: 1 on 10/30/2018 by Ramón Simmons MD at [facility] Femur / [id number] [employer]omet Hf-Nail Lag Screw 10.5*105mm Implant Right: [employer] 08/07/2027 [id number] / Implanted: Qty: 1 on 10/30/2018 by Ramón Simmons MD at [facility] Femur / [id number] Biomet Cortical Bone Screw 5*54mm Implant Right: [employer] 06/26/2026 [id number] / Implanted: Qty: 1 on 10/30/2018 by Ramón Simmons MD at [facility] Femur / [id number] A Integra Bp Dural Graft 4x5cm - Sna Skin/Tissue [employer] 05/26/2020 [id number] / Implanted: Qty: 1 on 09/19/2018 by Roshan Sauceda MD at [facility] LIFESCIENCES NA / [id number] Cardiac Stents Description: 2010 x2,, 2017 x1 Pins Description: pins on the left elbow Procedures Procedure Name Priority Date/Time Associated Diagnosis Comme nts ANION GAP AM 03/24/2021 Results for 4:34 AM CHIEF CONSOLE OPERATOR this procedure are in the results section. .GLOMERULAR FILTRATION AM 03/24/2021 Resul ts for RATE 4:34 AM CHIEF CONSOLE OPERATOR this procedure are in the results section. SERUM CREATININE AM 03/24/2021 Results for 4:34 AM CHIEF CONSOLE OPERATOR this procedure are in the results section. MANUAL DIFFERENTIAL AM 03/24/2021 Results for 4:34 AM CHIEF CONSOLE OPERATOR this procedure are in the results section. Results CBC AM 03/24/2021 Results for 4:34 AM CHIEF CONSOLE OPERATOR this procedure are in the results section. ALKALINE PHOSPHATASE AM 03/24/2021 Results for 4:34 AM CHIEF CONSOLE OPERATOR this procedure are in the results section. ASPARTATE AM 03/24/2021 Results for AMINOTRANSFERASE 4:34 AM CHIEF CONSOLE OPERATOR this proced ure are in the results section. ALANINE AM 03/24/2021 Results for AMINOTRANSFERASE 4:34 AM CHIEF CONSOLE OPERATOR this proced ure are in the results section. MAGNESIUM LEVEL AM 03/24/2021 Results for 4:34 AM CHIEF CONSOLE OPERATOR this procedure are in the results section. CALCIUM LEVEL TOTAL AM 03/24/2021 Results for 4:34 AM CHIEF CONSOLE OPERATOR this procedure are in the results section. ALBUMIN LEVEL AM 03/24/2021 Results for 4:34 AM CHIEF CONSOLE OPERATOR this procedure are in the results section. FRACTIONATED BILIRUBIN AM 03/24/2021 Resul ts for 4:34 AM CHIEF CONSOLE OPERATOR this procedure are in the results section. PHOSPHORUS LEVEL AM 03/24/2021 Results for 4:34 AM CHIEF CONSOLE OPERATOR this procedure are in the results section. URIC ACID AM 03/24/2021 Results for 4:34 AM CHIEF CONSOLE OPERATOR this procedure are in the results section. LACTATE DEHYDROGENASE AM 03/24/2021 Result s for 4:34 AM CHIEF CONSOLE OPERATOR this procedure are in the results section. GLUCOSE, RANDOM AM 03/24/2021 Results for 4:34 AM CHIEF CONSOLE OPERATOR this procedure are in the results section. SERUM CREATININE AM 03/24/2021 4:34 AM CHIEF CONSOLE OPERATOR BLOOD UREA NITROGEN AM 03/24/2021 Results for 4:34 AM CHIEF CONSOLE OPERATOR this procedure are in the results section. CARBON DIOXIDE LEVEL AM 03/24/2021 Results for 4:34 AM CHIEF CONSOLE OPERATOR this procedure are in the results section. CHLORIDE LEVEL AM 03/24/2021 Results for 4:34 AM CHIEF CONSOLE OPERATOR this procedure are in the results section. POTASSIUM LEVEL AM 03/24/2021 Results for 4:34 AM CHIEF CONSOLE OPERATOR this procedure are in the results section. SODIUM LEVEL AM 03/24/2021 Results for 4:34 AM CHIEF CONSOLE OPERATOR this procedure are in the results section. COMPLETE BLOOD COUNT AM 03/24/2021 W/ DIFFERENTIAL 4:34 AM CHIEF CONSOLE OPERATOR COVID-19 (SARS-COV-2) Now 03/23/2021 Result s for PCR-ASYMPTOMATIC MC 4:42 PM CHIEF CONSOLE OPERATOR this pro cedure are in the results section. ANION GAP AM 03/23/2021 Results for 5:21 AM CHIEF CONSOLE OPERATOR this procedure are in the results section. .GLOMERULAR FILTRATION AM 03/23/2021 Resul ts for RATE 5:21 AM CHIEF CONSOLE OPERATOR this procedure are in the results section. SERUM CREATININE AM 03/23/2021 Results for 5:21 AM CHIEF CONSOLE OPERATOR this procedure are in the results section. MANUAL DIFFERENTIAL AM 03/23/2021 Results for 5:21 AM CHIEF CONSOLE OPERATOR this procedure are in the results section. Results CBC AM 03/23/2021 Results for 5:21 AM CHIEF CONSOLE OPERATOR this procedure are in the results section. ALKALINE PHOSPHATASE AM 03/23/2021 Results for 5:21 AM CHIEF CONSOLE OPERATOR this procedure are in the results section. ASPARTATE AM 03/23/2021 Results for AMINOTRANSFERASE 5:21 AM CHIEF CONSOLE OPERATOR this proced ure are in the results section. ALANINE AM 03/23/2021 Results for AMINOTRANSFERASE 5:21 AM CHIEF CONSOLE OPERATOR this proced ure are in the results section. MAGNESIUM LEVEL AM 03/23/2021 Results for 5:21 AM CHIEF CONSOLE OPERATOR this procedure are in the results section. CALCIUM LEVEL TOTAL AM 03/23/2021 Results for 5:21 AM CHIEF CONSOLE OPERATOR this procedure are in the results section. ALBUMIN LEVEL AM 03/23/2021 Results for 5:21 AM CHIEF CONSOLE OPERATOR this procedure are in the results section. FRACTIONATED BILIRUBIN AM 03/23/2021 Resul ts for 5:21 AM CHIEF CONSOLE OPERATOR this procedure are in the results section. PHOSPHORUS LEVEL AM 03/23/2021 Results for 5:21 AM CHIEF CONSOLE OPERATOR this procedure are in the results section. URIC ACID AM 03/23/2021 Results for 5:21 AM CHIEF CONSOLE OPERATOR this procedure are in the results section. LACTATE DEHYDROGENASE AM 03/23/2021 Result s for 5:21 AM CHIEF CONSOLE OPERATOR this procedure are in the results section. GLUCOSE, RANDOM AM 03/23/2021 Results for 5:21 AM CHIEF CONSOLE OPERATOR this procedure are in the results section. SERUM CREATININE AM 03/23/2021 5:21 AM CHIEF CONSOLE OPERATOR BLOOD UREA NITROGEN AM 03/23/2021 Results for 5:21 AM CHIEF CONSOLE OPERATOR this procedure are in the results section. CARBON DIOXIDE LEVEL AM 03/23/2021 Results for 5:21 AM CHIEF CONSOLE OPERATOR this procedure are in the results section. CHLORIDE LEVEL AM 03/23/2021 Results for 5:21 AM CHIEF CONSOLE OPERATOR this procedure are in the results section. POTASSIUM LEVEL AM 03/23/2021 Results for 5:21 AM CHIEF CONSOLE OPERATOR this procedure are in the results section. SODIUM LEVEL AM 03/23/2021 Results for 5:21 AM CHIEF CONSOLE OPERATOR this procedure are in the results section. COMPLETE BLOOD COUNT AM 03/23/2021 W/ DIFFERENTIAL 5:21 AM CHIEF CONSOLE OPERATOR TMP INTERPRETATION Routine 03/22/2021 Results f or ANTIBODY SCREEN 4:30 AM CHIEF CONSOLE OPERATOR this procedu re NEGATIVE are in the results section. CLOT EXPIRATION DATE Routine 03/22/2021 Results for 4:30 AM CHIEF CONSOLE OPERATOR this procedure are in the results section. ANION GAP AM 03/22/2021 Results for 4:30 AM CHIEF CONSOLE OPERATOR this procedure are in the results section. .GLOMERULAR FILTRATION AM 03/22/2021 Resul ts for RATE 4:30 AM CHIEF CONSOLE OPERATOR this procedure are in the results section. SERUM CREATININE AM 03/22/2021 Results for 4:30 AM CHIEF CONSOLE OPERATOR this procedure are in the results section. MANUAL DIFFERENTIAL AM 03/22/2021 Results for 4:30 AM CHIEF CONSOLE OPERATOR this procedure are in the results section. Results CBC AM 03/22/2021 Results for 4:30 AM CHIEF CONSOLE OPERATOR this procedure are in the results section. ANTIBODY SCREEN Routine 03/22/2021 Results for 4:30 AM CHIEF CONSOLE OPERATOR this procedure are in the results section. ABORH Routine 03/22/2021 Results for 4:30 AM CHIEF CONSOLE OPERATOR this procedure are in the results section. TYPE AND SCREEN Routine 03/22/2021 4:30 AM CHIEF CONSOLE OPERATOR ALKALINE PHOSPHATASE AM 03/22/2021 Results for 4:30 AM CHIEF CONSOLE OPERATOR this procedure are in the results section. ASPARTATE AM 03/22/2021 Results for AMINOTRANSFERASE 4:30 AM CHIEF CONSOLE OPERATOR this proced ure are in the results section. ALANINE AM 03/22/2021 Results for AMINOTRANSFERASE 4:30 AM CHIEF CONSOLE OPERATOR this proced ure are in the results section. MAGNESIUM LEVEL AM 03/22/2021 Results for 4:30 AM CHIEF CONSOLE OPERATOR this procedure are in the results section. CALCIUM LEVEL TOTAL AM 03/22/2021 Results for 4:30 AM CHIEF CONSOLE OPERATOR this procedure are in the results section. ALBUMIN LEVEL AM 03/22/2021 Results for 4:30 AM CHIEF CONSOLE OPERATOR this procedure are in the results section. FRACTIONATED BILIRUBIN AM 03/22/2021 Resul ts for 4:30 AM CHIEF CONSOLE OPERATOR this procedure are in the results section. PHOSPHORUS LEVEL AM 03/22/2021 Results for 4:30 AM CHIEF CONSOLE OPERATOR this procedure are in the results section. URIC ACID AM 03/22/2021 Results for 4:30 AM CHIEF CONSOLE OPERATOR this procedure are in the results section. LACTATE DEHYDROGENASE AM 03/22/2021 Result s for 4:30 AM CHIEF CONSOLE OPERATOR this procedure are in the results section. GLUCOSE, RANDOM AM 03/22/2021 Results for 4:30 AM CHIEF CONSOLE OPERATOR this procedure are in the results section. SERUM CREATININE AM 03/22/2021 4:30 AM CHIEF CONSOLE OPERATOR BLOOD UREA NITROGEN AM 03/22/2021 Results for 4:30 AM CHIEF CONSOLE OPERATOR this procedure are in the results section. CARBON DIOXIDE LEVEL AM 03/22/2021 Results for 4:30 AM CHIEF CONSOLE OPERATOR this procedure are in the results section. CHLORIDE LEVEL AM 03/22/2021 Results for 4:30 AM CHIEF CONSOLE OPERATOR this procedure are in the results section. POTASSIUM LEVEL AM 03/22/2021 Results for 4:30 AM CHIEF CONSOLE OPERATOR this procedure are in the results section. SODIUM LEVEL AM 03/22/2021 Results for 4:30 AM CHIEF CONSOLE OPERATOR this procedure are in the results section. COMPLETE BLOOD COUNT AM 03/22/2021 W/ DIFFERENTIAL 4:30 AM CHIEF CONSOLE OPERATOR ANION GAP AM 03/21/2021 Results for 4:17 AM CHIEF CONSOLE OPERATOR this procedure are in the results section. .GLOMERULAR FILTRATION AM 03/21/2021 Resul ts for RATE 4:17 AM CHIEF CONSOLE OPERATOR this procedure are in the results section. SERUM CREATININE AM 03/21/2021 Results for 4:17 AM CHIEF CONSOLE OPERATOR this procedure are in the results section. MANUAL DIFFERENTIAL AM 03/21/2021 Results for 4:17 AM CHIEF CONSOLE OPERATOR this procedure are in the results section. Results CBC AM 03/21/2021 Results for 4:17 AM CHIEF CONSOLE OPERATOR this procedure are in the results section. ALKALINE PHOSPHATASE AM 03/21/2021 Results for 4:17 AM CHIEF CONSOLE OPERATOR this procedure are in the results section. ASPARTATE AM 03/21/2021 Results for AMINOTRANSFERASE 4:17 AM CHIEF CONSOLE OPERATOR this proced ure are in the results section. ALANINE AM 03/21/2021 Results for AMINOTRANSFERASE 4:17 AM CHIEF CONSOLE OPERATOR this proced ure are in the results section. MAGNESIUM LEVEL AM 03/21/2021 Results for 4:17 AM CHIEF CONSOLE OPERATOR this procedure are in the results section. CALCIUM LEVEL TOTAL AM 03/21/2021 Results for 4:17 AM CHIEF CONSOLE OPERATOR this procedure are in the results section. ALBUMIN LEVEL AM 03/21/2021 Results for 4:17 AM CHIEF CONSOLE OPERATOR this procedure are in the results section. FRACTIONATED BILIRUBIN AM 03/21/2021 Resul ts for 4:17 AM CHIEF CONSOLE OPERATOR this procedure are in the results section. PHOSPHORUS LEVEL AM 03/21/2021 Results for 4:17 AM CHIEF CONSOLE OPERATOR this procedure are in the results section. URIC ACID AM 03/21/2021 Results for 4:17 AM CHIEF CONSOLE OPERATOR this procedure are in the results section. LACTATE DEHYDROGENASE AM 03/21/2021 Result s for 4:17 AM CHIEF CONSOLE OPERATOR this procedure are in the results section. GLUCOSE, RANDOM AM 03/21/2021 Results for 4:17 AM CHIEF CONSOLE OPERATOR this procedure are in the results section. SERUM CREATININE AM 03/21/2021 4:17 AM CHIEF CONSOLE OPERATOR BLOOD UREA NITROGEN AM 03/21/2021 Results for 4:17 AM CHIEF CONSOLE OPERATOR this procedure are in the results section. CARBON DIOXIDE LEVEL AM 03/21/2021 Results for 4:17 AM CHIEF CONSOLE OPERATOR this procedure are in the results section. CHLORIDE LEVEL AM 03/21/2021 Results for 4:17 AM CHIEF CONSOLE OPERATOR this procedure are in the results section. POTASSIUM LEVEL AM 03/21/2021 Results for 4:17 AM CHIEF CONSOLE OPERATOR this procedure are in the results section. SODIUM LEVEL AM 03/21/2021 Results for 4:17 AM CHIEF CONSOLE OPERATOR this procedure are in the results section. COMPLETE BLOOD COUNT AM 03/21/2021 W/ DIFFERENTIAL 4:17 AM CHIEF CONSOLE OPERATOR ANION GAP AM 03/20/2021 Results for 4:58 AM CHIEF CONSOLE OPERATOR this procedure are in the results section. .GLOMERULAR FILTRATION AM 03/20/2021 Resul ts for RATE 4:58 AM CHIEF CONSOLE OPERATOR this procedure are in the results section. SERUM CREATININE AM 03/20/2021 Results for 4:58 AM CHIEF CONSOLE OPERATOR this procedure are in the results section. MANUAL DIFFERENTIAL AM 03/20/2021 Results for 4:58 AM CHIEF CONSOLE OPERATOR this procedure are in the results section. Results CBC AM 03/20/2021 Results for 4:58 AM CHIEF CONSOLE OPERATOR this procedure are in the results section. ALKALINE PHOSPHATASE AM 03/20/2021 Results for 4:58 AM CHIEF CONSOLE OPERATOR this procedure are in the results section. ASPARTATE AM 03/20/2021 Results for AMINOTRANSFERASE 4:58 AM CHIEF CONSOLE OPERATOR this proced ure are in the results section. ALANINE AM 03/20/2021 Results for AMINOTRANSFERASE 4:58 AM CHIEF CONSOLE OPERATOR this proced ure are in the results section. MAGNESIUM LEVEL AM 03/20/2021 Results for 4:58 AM CHIEF CONSOLE OPERATOR this procedure are in the results section. CALCIUM LEVEL TOTAL AM 03/20/2021 Results for 4:58 AM CHIEF CONSOLE OPERATOR this procedure are in the results section. ALBUMIN LEVEL AM 03/20/2021 Results for 4:58 AM CHIEF CONSOLE OPERATOR this procedure are in the results section. FRACTIONATED BILIRUBIN AM 03/20/2021 Resul ts for 4:58 AM CHIEF CONSOLE OPERATOR this procedure are in the results section. PHOSPHORUS LEVEL AM 03/20/2021 Results for 4:58 AM CHIEF CONSOLE OPERATOR this procedure are in the results section. URIC ACID AM 03/20/2021 Results for 4:58 AM CHIEF CONSOLE OPERATOR this procedure are in the results section. LACTATE DEHYDROGENASE AM 03/20/2021 Result s for 4:58 AM CHIEF CONSOLE OPERATOR this procedure are in the results section. GLUCOSE, RANDOM AM 03/20/2021 Results for 4:58 AM CHIEF CONSOLE OPERATOR this procedure are in the results section. SERUM CREATININE AM 03/20/2021 4:58 AM CHIEF CONSOLE OPERATOR BLOOD UREA NITROGEN AM 03/20/2021 Results for 4:58 AM CHIEF CONSOLE OPERATOR this procedure are in the results section. CARBON DIOXIDE LEVEL AM 03/20/2021 Results for 4:58 AM CHIEF CONSOLE OPERATOR this procedure are in the results section. CHLORIDE LEVEL AM 03/20/2021 Results for 4:58 AM CHIEF CONSOLE OPERATOR this procedure are in the results section. POTASSIUM LEVEL AM 03/20/2021 Results for 4:58 AM CHIEF CONSOLE OPERATOR this procedure are in the results section. SODIUM LEVEL AM 03/20/2021 Results for 4:58 AM CHIEF CONSOLE OPERATOR this procedure are in the results section. COMPLETE BLOOD COUNT AM 03/20/2021 W/ DIFFERENTIAL 4:58 AM CHIEF CONSOLE OPERATOR TMP INTERPRETATION Routine 03/19/2021 Results f or ANTIBODY SCREEN 5:09 AM CHIEF CONSOLE OPERATOR this procedu re NEGATIVE are in the results section. CLOT EXPIRATION DATE Routine 03/19/2021 Results for 5:09 AM CHIEF CONSOLE OPERATOR this procedure are in the results section. ANION GAP AM 03/19/2021 Results for 5:09 AM CHIEF CONSOLE OPERATOR this procedure are in the results section. .GLOMERULAR FILTRATION AM 03/19/2021 Resul ts for RATE 5:09 AM CHIEF CONSOLE OPERATOR this procedure are in the results section. SERUM CREATININE AM 03/19/2021 Results for 5:09 AM CHIEF CONSOLE OPERATOR this procedure are in the results section. MANUAL DIFFERENTIAL AM 03/19/2021 Results for 5:09 AM CHIEF CONSOLE OPERATOR this procedure are in the results section. Results CBC AM 03/19/2021 Results for 5:09 AM CHIEF CONSOLE OPERATOR this procedure are in the results section. ANTIBODY SCREEN Routine 03/19/2021 Results for 5:09 AM CHIEF CONSOLE OPERATOR this procedure are in the results section. ABORH Routine 03/19/2021 Results for 5:09 AM CHIEF CONSOLE OPERATOR this procedure are in the results section. TYPE AND SCREEN Routine 03/19/2021 5:09 AM CHIEF CONSOLE OPERATOR ALKALINE PHOSPHATASE AM 03/19/2021 Results for 5:09 AM CHIEF CONSOLE OPERATOR this procedure are in the results section. ASPARTATE AM 03/19/2021 Results for AMINOTRANSFERASE 5:09 AM CHIEF CONSOLE OPERATOR this proced ure are in the results section. ALANINE AM 03/19/2021 Results for AMINOTRANSFERASE 5:09 AM CHIEF CONSOLE OPERATOR this proced ure are in the results section. MAGNESIUM LEVEL AM 03/19/2021 Results for 5:09 AM CHIEF CONSOLE OPERATOR this procedure are in the results section. CALCIUM LEVEL TOTAL AM 03/19/2021 Results for 5:09 AM CHIEF CONSOLE OPERATOR this procedure are in the results section. ALBUMIN LEVEL AM 03/19/2021 Results for 5:09 AM CHIEF CONSOLE OPERATOR this procedure are in the results section. FRACTIONATED BILIRUBIN AM 03/19/2021 Resul ts for 5:09 AM CHIEF CONSOLE OPERATOR this procedure are in the results section. PHOSPHORUS LEVEL AM 03/19/2021 Results for 5:09 AM CHIEF CONSOLE OPERATOR this procedure are in the results section. URIC ACID AM 03/19/2021 Results for 5:09 AM CHIEF CONSOLE OPERATOR this procedure are in the results section. LACTATE DEHYDROGENASE AM 03/19/2021 Result s for 5:09 AM CHIEF CONSOLE OPERATOR this procedure are in the results section. GLUCOSE, RANDOM AM 03/19/2021 Results for 5:09 AM CHIEF CONSOLE OPERATOR this procedure are in the results section. SERUM CREATININE AM 03/19/2021 5:09 AM CHIEF CONSOLE OPERATOR BLOOD UREA NITROGEN AM 03/19/2021 Results for 5:09 AM CHIEF CONSOLE OPERATOR this procedure are in the results section. CARBON DIOXIDE LEVEL AM 03/19/2021 Results for 5:09 AM CHIEF CONSOLE OPERATOR this procedure are in the results section. CHLORIDE LEVEL AM 03/19/2021 Results for 5:09 AM CHIEF CONSOLE OPERATOR this procedure are in the results section. POTASSIUM LEVEL AM 03/19/2021 Results for 5:09 AM CHIEF CONSOLE OPERATOR this procedure are in the results section. SODIUM LEVEL AM 03/19/2021 Results for 5:09 AM CHIEF CONSOLE OPERATOR this procedure are in the results section. COMPLETE BLOOD COUNT AM 03/19/2021 W/ DIFFERENTIAL 5:09 AM CHIEF CONSOLE OPERATOR ANION GAP AM 03/18/2021 Results for 4:01 AM CHIEF CONSOLE OPERATOR this procedure are in the results section. .GLOMERULAR FILTRATION AM 03/18/2021 Resul ts for RATE 4:01 AM CHIEF CONSOLE OPERATOR this procedure are in the results section. SERUM CREATININE AM 03/18/2021 Results for 4:01 AM CHIEF CONSOLE OPERATOR this procedure are in the results section. MANUAL DIFFERENTIAL AM 03/18/2021 Results for 4:01 AM CHIEF CONSOLE OPERATOR this procedure are in the results section. Results CBC AM 03/18/2021 Results for 4:01 AM CHIEF CONSOLE OPERATOR this procedure are in the results section. ALKALINE PHOSPHATASE AM 03/18/2021 Results for 4:01 AM CHIEF CONSOLE OPERATOR this procedure are in the results section. ASPARTATE AM 03/18/2021 Results for AMINOTRANSFERASE 4:01 AM CHIEF CONSOLE OPERATOR this proced ure are in the results section. ALANINE AM 03/18/2021 Results for AMINOTRANSFERASE 4:01 AM CHIEF CONSOLE OPERATOR this proced ure are in the results section. MAGNESIUM LEVEL AM 03/18/2021 Results for 4:01 AM CHIEF CONSOLE OPERATOR this procedure are in the results section. CALCIUM LEVEL TOTAL AM 03/18/2021 Results for 4:01 AM CHIEF CONSOLE OPERATOR this procedure are in the results section. ALBUMIN LEVEL AM 03/18/2021 Results for 4:01 AM CHIEF CONSOLE OPERATOR this procedure are in the results section. FRACTIONATED BILIRUBIN AM 03/18/2021 Resul ts for 4:01 AM CHIEF CONSOLE OPERATOR this procedure are in the results section. PHOSPHORUS LEVEL AM 03/18/2021 Results for 4:01 AM CHIEF CONSOLE OPERATOR this procedure are in the results section. URIC ACID AM 03/18/2021 Results for 4:01 AM CHIEF CONSOLE OPERATOR this procedure are in the results section. LACTATE DEHYDROGENASE AM 03/18/2021 Result s for 4:01 AM CHIEF CONSOLE OPERATOR this procedure are in the results section. GLUCOSE, RANDOM AM 03/18/2021 Results for 4:01 AM CHIEF CONSOLE OPERATOR this procedure are in the results section. SERUM CREATININE AM 03/18/2021 4:01 AM CHIEF CONSOLE OPERATOR BLOOD UREA NITROGEN AM 03/18/2021 Results for 4:01 AM CHIEF CONSOLE OPERATOR this procedure are in the results section. CARBON DIOXIDE LEVEL AM 03/18/2021 Results for 4:01 AM CHIEF CONSOLE OPERATOR this procedure are in the results section. CHLORIDE LEVEL AM 03/18/2021 Results for 4:01 AM CHIEF CONSOLE OPERATOR this procedure are in the results section. POTASSIUM LEVEL AM 03/18/2021 Results for 4:01 AM CHIEF CONSOLE OPERATOR this procedure are in the results section. SODIUM LEVEL AM 03/18/2021 Results for 4:01 AM CHIEF CONSOLE OPERATOR this procedure are in the results section. COMPLETE BLOOD COUNT AM 03/18/2021 W/ DIFFERENTIAL 4:01 AM CHIEF CONSOLE OPERATOR ANION GAP AM 03/17/2021 Results for 6:00 AM CHIEF CONSOLE OPERATOR this procedure are in the results section. .GLOMERULAR FILTRATION AM 03/17/2021 Resul ts for RATE 6:00 AM CHIEF CONSOLE OPERATOR this procedure are in the results section. SERUM CREATININE AM 03/17/2021 Results for 6:00 AM CHIEF CONSOLE OPERATOR this procedure are in the results section. MANUAL DIFFERENTIAL AM 03/17/2021 Results for 6:00 AM CHIEF CONSOLE OPERATOR this procedure are in the results section. Results CBC AM 03/17/2021 Results for 6:00 AM CHIEF CONSOLE OPERATOR this procedure are in the results section. ALKALINE PHOSPHATASE AM 03/17/2021 Results for 6:00 AM CHIEF CONSOLE OPERATOR this procedure are in the results section. ASPARTATE AM 03/17/2021 Results for AMINOTRANSFERASE 6:00 AM CHIEF CONSOLE OPERATOR this proced ure are in the results section. ALANINE AM 03/17/2021 Results for AMINOTRANSFERASE 6:00 AM CHIEF CONSOLE OPERATOR this proced ure are in the results section. MAGNESIUM LEVEL AM 03/17/2021 Results for 6:00 AM CHIEF CONSOLE OPERATOR this procedure are in the results section. CALCIUM LEVEL TOTAL AM 03/17/2021 Results for 6:00 AM CHIEF CONSOLE OPERATOR this procedure are in the results section. ALBUMIN LEVEL AM 03/17/2021 Results for 6:00 AM CHIEF CONSOLE OPERATOR this procedure are in the results section. FRACTIONATED BILIRUBIN AM 03/17/2021 Resul ts for 6:00 AM CHIEF CONSOLE OPERATOR this procedure are in the results section. PHOSPHORUS LEVEL AM 03/17/2021 Results for 6:00 AM CHIEF CONSOLE OPERATOR this procedure are in the results section. URIC ACID AM 03/17/2021 Results for 6:00 AM CHIEF CONSOLE OPERATOR this procedure are in the results section. LACTATE DEHYDROGENASE AM 03/17/2021 Result s for 6:00 AM CHIEF CONSOLE OPERATOR this procedure are in the results section. GLUCOSE, RANDOM AM 03/17/2021 Results for 6:00 AM CHIEF CONSOLE OPERATOR this procedure are in the results section. SERUM CREATININE AM 03/17/2021 6:00 AM CHIEF CONSOLE OPERATOR BLOOD UREA NITROGEN AM 03/17/2021 Results for 6:00 AM CHIEF CONSOLE OPERATOR this procedure are in the results section. CARBON DIOXIDE LEVEL AM 03/17/2021 Results for 6:00 AM CHIEF CONSOLE OPERATOR this procedure are in the results section. CHLORIDE LEVEL AM 03/17/2021 Results for 6:00 AM CHIEF CONSOLE OPERATOR this procedure are in the results section. POTASSIUM LEVEL AM 03/17/2021 Results for 6:00 AM CHIEF CONSOLE OPERATOR this procedure are in the results section. SODIUM LEVEL AM 03/17/2021 Results for 6:00 AM CHIEF CONSOLE OPERATOR this procedure are in the results section. COMPLETE BLOOD COUNT AM 03/17/2021 W/ DIFFERENTIAL 6:00 AM CHIEF CONSOLE OPERATOR COVID-19 (SARS-COV-2) Now 03/16/2021 Result s for PCR-ASYMPTOMATIC MC 8:39 AM CHIEF CONSOLE OPERATOR this pro cedure are in the results section. CLOT EXPIRATION DATE Routine 03/16/2021 Results for 5:05 AM CHIEF CONSOLE OPERATOR this procedure are in the results section. TMP INTERPRETATION Routine 03/16/2021 Results f or ANTIBODY SCREEN 5:05 AM CHIEF CONSOLE OPERATOR this procedu re NEGATIVE are in the results section. ANION GAP AM 03/16/2021 Results for 5:05 AM CHIEF CONSOLE OPERATOR this procedure are in the results section. .GLOMERULAR FILTRATION AM 03/16/2021 Resul ts for RATE 5:05 AM CHIEF CONSOLE OPERATOR this procedure are in the results section. SERUM CREATININE AM 03/16/2021 Results for 5:05 AM CHIEF CONSOLE OPERATOR this procedure are in the results section. MANUAL DIFFERENTIAL AM 03/16/2021 Results for 5:05 AM CHIEF CONSOLE OPERATOR this procedure are in the results section. Results CBC AM 03/16/2021 Results for 5:05 AM CHIEF CONSOLE OPERATOR this procedure are in the results section. ANTIBODY SCREEN Routine 03/16/2021 Results for 5:05 AM CHIEF CONSOLE OPERATOR this procedure are in the results section. ABORH Routine 03/16/2021 Results for 5:05 AM CHIEF CONSOLE OPERATOR this procedure are in the results section. TYPE AND SCREEN Routine 03/16/2021 5:05 AM CHIEF CONSOLE OPERATOR ALKALINE PHOSPHATASE AM 03/16/2021 Results for 5:05 AM CHIEF CONSOLE OPERATOR this procedure are in the results section. ASPARTATE AM 03/16/2021 Results for AMINOTRANSFERASE 5:05 AM CHIEF CONSOLE OPERATOR this proced ure are in the results section. ALANINE AM 03/16/2021 Results for AMINOTRANSFERASE 5:05 AM CHIEF CONSOLE OPERATOR this proced ure are in the results section. MAGNESIUM LEVEL AM 03/16/2021 Results for 5:05 AM CHIEF CONSOLE OPERATOR this procedure are in the results section. CALCIUM LEVEL TOTAL AM 03/16/2021 Results for 5:05 AM CHIEF CONSOLE OPERATOR this procedure are in the results section. ALBUMIN LEVEL AM 03/16/2021 Results for 5:05 AM CHIEF CONSOLE OPERATOR this procedure are in the results section. FRACTIONATED BILIRUBIN AM 03/16/2021 Resul ts for 5:05 AM CHIEF CONSOLE OPERATOR this procedure are in the results section. PHOSPHORUS LEVEL AM 03/16/2021 Results for 5:05 AM CHIEF CONSOLE OPERATOR this procedure are in the results section. URIC ACID AM 03/16/2021 Results for 5:05 AM CHIEF CONSOLE OPERATOR this procedure are in the results section. LACTATE DEHYDROGENASE AM 03/16/2021 Result s for 5:05 AM CHIEF CONSOLE OPERATOR this procedure are in the results section. GLUCOSE, RANDOM AM 03/16/2021 Results for 5:05 AM CHIEF CONSOLE OPERATOR this procedure are in the results section. SERUM CREATININE AM 03/16/2021 5:05 AM CHIEF CONSOLE OPERATOR BLOOD UREA NITROGEN AM 03/16/2021 Results for 5:05 AM CHIEF CONSOLE OPERATOR this procedure are in the results section. CARBON DIOXIDE LEVEL AM 03/16/2021 Results for 5:05 AM CHIEF CONSOLE OPERATOR this procedure are in the results section. CHLORIDE LEVEL AM 03/16/2021 Results for 5:05 AM CHIEF CONSOLE OPERATOR this procedure are in the results section. POTASSIUM LEVEL AM 03/16/2021 Results for 5:05 AM CHIEF CONSOLE OPERATOR this procedure are in the results section. SODIUM LEVEL AM 03/16/2021 Results for 5:05 AM CHIEF CONSOLE OPERATOR this procedure are in the results section. COMPLETE BLOOD COUNT AM 03/16/2021 W/ DIFFERENTIAL 5:05 AM CHIEF CONSOLE OPERATOR ANION GAP AM 03/15/2021 Results for 4:21 AM CHIEF CONSOLE OPERATOR this procedure are in the results section. .GLOMERULAR FILTRATION AM 03/15/2021 Resul ts for RATE 4:21 AM CHIEF CONSOLE OPERATOR this procedure are in the results section. SERUM CREATININE AM 03/15/2021 Results for 4:21 AM CHIEF CONSOLE OPERATOR this procedure are in the results section. MANUAL DIFFERENTIAL AM 03/15/2021 Results for 4:21 AM CHIEF CONSOLE OPERATOR this procedure are in the results section. Results CBC AM 03/15/2021 Results for 4:21 AM CHIEF CONSOLE OPERATOR this procedure are in the results section. ALKALINE PHOSPHATASE AM 03/15/2021 Results for 4:21 AM CHIEF CONSOLE OPERATOR this procedure are in the results section. ASPARTATE AM 03/15/2021 Results for AMINOTRANSFERASE 4:21 AM CHIEF CONSOLE OPERATOR this proced ure are in the results section. ALANINE AM 03/15/2021 Results for AMINOTRANSFERASE 4:21 AM CHIEF CONSOLE OPERATOR this proced ure are in the results section. MAGNESIUM LEVEL AM 03/15/2021 Results for 4:21 AM CHIEF CONSOLE OPERATOR this procedure are in the results section. CALCIUM LEVEL TOTAL AM 03/15/2021 Results for 4:21 AM CHIEF CONSOLE OPERATOR this procedure are in the results section. ALBUMIN LEVEL AM 03/15/2021 Results for 4:21 AM CHIEF CONSOLE OPERATOR this procedure are in the results section. FRACTIONATED BILIRUBIN AM 03/15/2021 Resul ts for 4:21 AM CHIEF CONSOLE OPERATOR this procedure are in the results section. PHOSPHORUS LEVEL AM 03/15/2021 Results for 4:21 AM CHIEF CONSOLE OPERATOR this procedure are in the results section. URIC ACID AM 03/15/2021 Results for 4:21 AM CHIEF CONSOLE OPERATOR this procedure are in the results section. LACTATE DEHYDROGENASE AM 03/15/2021 Result s for 4:21 AM CHIEF CONSOLE OPERATOR this procedure are in the results section. GLUCOSE, RANDOM AM 03/15/2021 Results for 4:21 AM CHIEF CONSOLE OPERATOR this procedure are in the results section. SERUM CREATININE AM 03/15/2021 4:21 AM CHIEF CONSOLE OPERATOR BLOOD UREA NITROGEN AM 03/15/2021 Results for 4:21 AM CHIEF CONSOLE OPERATOR this procedure are in the results section. CARBON DIOXIDE LEVEL AM 03/15/2021 Results for 4:21 AM CHIEF CONSOLE OPERATOR this procedure are in the results section. CHLORIDE LEVEL AM 03/15/2021 Results for 4:21 AM CHIEF CONSOLE OPERATOR this procedure are in the results section. POTASSIUM LEVEL AM 03/15/2021 Results for 4:21 AM CHIEF CONSOLE OPERATOR this procedure are in the results section. SODIUM LEVEL AM 03/15/2021 Results for 4:21 AM CHIEF CONSOLE OPERATOR this procedure are in the results section. COMPLETE BLOOD COUNT AM 03/15/2021 W/ DIFFERENTIAL 4:21 AM CHIEF CONSOLE OPERATOR ANION GAP AM 03/14/2021 Results for 5:22 AM CHIEF CONSOLE OPERATOR this procedure are in the results section. .GLOMERULAR FILTRATION AM 03/14/2021 Resul ts for RATE 5:22 AM CHIEF CONSOLE OPERATOR this procedure are in the results section. SERUM CREATININE AM 03/14/2021 Results for 5:22 AM CHIEF CONSOLE OPERATOR this procedure are in the results section. MANUAL DIFFERENTIAL AM 03/14/2021 Results for 5:22 AM CHIEF CONSOLE OPERATOR this procedure are in the results section. Results CBC AM 03/14/2021 Results for 5:22 AM CHIEF CONSOLE OPERATOR this procedure are in the results section. ALKALINE PHOSPHATASE AM 03/14/2021 Results for 5:22 AM CHIEF CONSOLE OPERATOR this procedure are in the results section. ASPARTATE AM 03/14/2021 Results for AMINOTRANSFERASE 5:22 AM CHIEF CONSOLE OPERATOR this proced ure are in the results section. ALANINE AM 03/14/2021 Results for AMINOTRANSFERASE 5:22 AM CHIEF CONSOLE OPERATOR this proced ure are in the results section. MAGNESIUM LEVEL AM 03/14/2021 Results for 5:22 AM CHIEF CONSOLE OPERATOR this procedure are in the results section. CALCIUM LEVEL TOTAL AM 03/14/2021 Results for 5:22 AM CHIEF CONSOLE OPERATOR this procedure are in the results section. ALBUMIN LEVEL AM 03/14/2021 Results for 5:22 AM CHIEF CONSOLE OPERATOR this procedure are in the results section. FRACTIONATED BILIRUBIN AM 03/14/2021 Resul ts for 5:22 AM CHIEF CONSOLE OPERATOR this procedure are in the results section. PHOSPHORUS LEVEL AM 03/14/2021 Results for 5:22 AM CHIEF CONSOLE OPERATOR this procedure are in the results section. URIC ACID AM 03/14/2021 Results for 5:22 AM CHIEF CONSOLE OPERATOR this procedure are in the results section. LACTATE DEHYDROGENASE AM 03/14/2021 Result s for 5:22 AM CHIEF CONSOLE OPERATOR this procedure are in the results section. GLUCOSE, RANDOM AM 03/14/2021 Results for 5:22 AM CHIEF CONSOLE OPERATOR this procedure are in the results section. SERUM CREATININE AM 03/14/2021 5:22 AM CHIEF CONSOLE OPERATOR BLOOD UREA NITROGEN AM 03/14/2021 Results for 5:22 AM CHIEF CONSOLE OPERATOR this procedure are in the results section. CARBON DIOXIDE LEVEL AM 03/14/2021 Results for 5:22 AM CHIEF CONSOLE OPERATOR this procedure are in the results section. CHLORIDE LEVEL AM 03/14/2021 Results for 5:22 AM CHIEF CONSOLE OPERATOR this procedure are in the results section. POTASSIUM LEVEL AM 03/14/2021 Results for 5:22 AM CHIEF CONSOLE OPERATOR this procedure are in the results section. SODIUM LEVEL AM 03/14/2021 Results for 5:22 AM CHIEF CONSOLE OPERATOR this procedure are in the results section. COMPLETE BLOOD COUNT AM 03/14/2021 W/ DIFFERENTIAL 5:22 AM CHIEF CONSOLE OPERATOR TMP INTERPRETATION Routine 03/13/2021 Results f or ANTIBODY SCREEN 4:53 AM CHIEF CONSOLE OPERATOR this procedu re NEGATIVE are in the results section. CLOT EXPIRATION DATE Routine 03/13/2021 Results for 4:53 AM CHIEF CONSOLE OPERATOR this procedure are in the results section. ANION GAP AM 03/13/2021 Results for 4:53 AM CHIEF CONSOLE OPERATOR this procedure are in the results section. .GLOMERULAR FILTRATION AM 03/13/2021 Resul ts for RATE 4:53 AM CHIEF CONSOLE OPERATOR this procedure are in the results section. SERUM CREATININE AM 03/13/2021 Results for 4:53 AM CHIEF CONSOLE OPERATOR this procedure are in the results section. MANUAL DIFFERENTIAL AM 03/13/2021 Results for 4:53 AM CHIEF CONSOLE OPERATOR this procedure are in the results section. Results CBC AM 03/13/2021 Results for 4:53 AM CHIEF CONSOLE OPERATOR this procedure are in the results section. ANTIBODY SCREEN Routine 03/13/2021 Results for 4:53 AM CHIEF CONSOLE OPERATOR this procedure are in the results section. ABORH Routine 03/13/2021 Results for 4:53 AM CHIEF CONSOLE OPERATOR this procedure are in the results section. TYPE AND SCREEN Routine 03/13/2021 4:53 AM CHIEF CONSOLE OPERATOR ALKALINE PHOSPHATASE AM 03/13/2021 Results for 4:53 AM CHIEF CONSOLE OPERATOR this procedure are in the results section. ASPARTATE AM 03/13/2021 Results for AMINOTRANSFERASE 4:53 AM CHIEF CONSOLE OPERATOR this proced ure are in the results section. ALANINE AM 03/13/2021 Results for AMINOTRANSFERASE 4:53 AM CHIEF CONSOLE OPERATOR this proced ure are in the results section. MAGNESIUM LEVEL AM 03/13/2021 Results for 4:53 AM CHIEF CONSOLE OPERATOR this procedure are in the results section. CALCIUM LEVEL TOTAL AM 03/13/2021 Results for 4:53 AM CHIEF CONSOLE OPERATOR this procedure are in the results section. ALBUMIN LEVEL AM 03/13/2021 Results for 4:53 AM CHIEF CONSOLE OPERATOR this procedure are in the results section. FRACTIONATED BILIRUBIN AM 03/13/2021 Resul ts for 4:53 AM CHIEF CONSOLE OPERATOR this procedure are in the results section. PHOSPHORUS LEVEL AM 03/13/2021 Results for 4:53 AM CHIEF CONSOLE OPERATOR this procedure are in the results section. URIC ACID AM 03/13/2021 Results for 4:53 AM CHIEF CONSOLE OPERATOR this procedure are in the results section. LACTATE DEHYDROGENASE AM 03/13/2021 Result s for 4:53 AM CHIEF CONSOLE OPERATOR this procedure are in the results section. GLUCOSE, RANDOM AM 03/13/2021 Results for 4:53 AM CHIEF CONSOLE OPERATOR this procedure are in the results section. SERUM CREATININE AM 03/13/2021 4:53 AM CHIEF CONSOLE OPERATOR BLOOD UREA NITROGEN AM 03/13/2021 Results for 4:53 AM CHIEF CONSOLE OPERATOR this procedure are in the results section. CARBON DIOXIDE LEVEL AM 03/13/2021 Results for 4:53 AM CHIEF CONSOLE OPERATOR this procedure are in the results section. CHLORIDE LEVEL AM 03/13/2021 Results for 4:53 AM CHIEF CONSOLE OPERATOR this procedure are in the results section. POTASSIUM LEVEL AM 03/13/2021 Results for 4:53 AM CHIEF CONSOLE OPERATOR this procedure are in the results section. SODIUM LEVEL AM 03/13/2021 Results for 4:53 AM CHIEF CONSOLE OPERATOR this procedure are in the results section. COMPLETE BLOOD COUNT AM 03/13/2021 W/ DIFFERENTIAL 4:53 AM CHIEF CONSOLE OPERATOR URINALYSIS WITH Routine 03/12/2021 Results for MICROSCOPIC IF 8:28 AM CHIEF CONSOLE OPERATOR this procedur e INDICATED are in the results section. URINALYSIS MICROSCOPIC Now 03/12/2021 Resul ts for 8:28 AM CHIEF CONSOLE OPERATOR this procedure are in the results section. URINE CULTURE Now 03/12/2021 Results for 8:28 AM CHIEF CONSOLE OPERATOR this procedure are in the results section. ANION GAP AM 03/12/2021 Results for 2:16 AM CHIEF CONSOLE OPERATOR this procedure are in the results section. .GLOMERULAR FILTRATION AM 03/12/2021 Resul ts for RATE 2:16 AM CHIEF CONSOLE OPERATOR this procedure are in the results section. SERUM CREATININE AM 03/12/2021 Results for 2:16 AM CHIEF CONSOLE OPERATOR this procedure are in the results section. MANUAL DIFFERENTIAL AM 03/12/2021 Results for 2:16 AM CHIEF CONSOLE OPERATOR this procedure are in the results section. Results CBC AM 03/12/2021 Results for 2:16 AM CHIEF CONSOLE OPERATOR this procedure are in the results section. ALKALINE PHOSPHATASE AM 03/12/2021 Results for 2:16 AM CHIEF CONSOLE OPERATOR this procedure are in the results section. ASPARTATE AM 03/12/2021 Results for AMINOTRANSFERASE 2:16 AM CHIEF CONSOLE OPERATOR this proced ure are in the results section. ALANINE AM 03/12/2021 Results for AMINOTRANSFERASE 2:16 AM CHIEF CONSOLE OPERATOR this proced ure are in the results section. MAGNESIUM LEVEL AM 03/12/2021 Results for 2:16 AM CHIEF CONSOLE OPERATOR this procedure are in the results section. CALCIUM LEVEL TOTAL AM 03/12/2021 Results for 2:16 AM CHIEF CONSOLE OPERATOR this procedure are in the results section. ALBUMIN LEVEL AM 03/12/2021 Results for 2:16 AM CHIEF CONSOLE OPERATOR this procedure are in the results section. FRACTIONATED BILIRUBIN AM 03/12/2021 Resul ts for 2:16 AM CHIEF CONSOLE OPERATOR this procedure are in the results section. PHOSPHORUS LEVEL AM 03/12/2021 Results for 2:16 AM CHIEF CONSOLE OPERATOR this procedure are in the results section. URIC ACID AM 03/12/2021 Results for 2:16 AM CHIEF CONSOLE OPERATOR this procedure are in the results section. LACTATE DEHYDROGENASE AM 03/12/2021 Result s for 2:16 AM CHIEF CONSOLE OPERATOR this procedure are in the results section. GLUCOSE, RANDOM AM 03/12/2021 Results for 2:16 AM CHIEF CONSOLE OPERATOR this procedure are in the results section. SERUM CREATININE AM 03/12/2021 2:16 AM CHIEF CONSOLE OPERATOR BLOOD UREA NITROGEN AM 03/12/2021 Results for 2:16 AM CHIEF CONSOLE OPERATOR this procedure are in the results section. CARBON DIOXIDE LEVEL AM 03/12/2021 Results for 2:16 AM CHIEF CONSOLE OPERATOR this procedure are in the results section. CHLORIDE LEVEL AM 03/12/2021 Results for 2:16 AM CHIEF CONSOLE OPERATOR this procedure are in the results section. POTASSIUM LEVEL AM 03/12/2021 Results for 2:16 AM CHIEF CONSOLE OPERATOR this procedure are in the results section. SODIUM LEVEL AM 03/12/2021 Results for 2:16 AM CHIEF CONSOLE OPERATOR this procedure are in the results section. COMPLETE BLOOD COUNT AM 03/12/2021 W/ DIFFERENTIAL 2:16 AM CHIEF CONSOLE OPERATOR CT HEAD WO CONTRAST STAT 03/11/2021 Results for 11:18 PM CHIEF CONSOLE OPERATOR this procedure are in the results section. POC ARTERIAL BLOOD GAS Routine 03/11/2021 Resul ts for 10:28 PM CHIEF CONSOLE OPERATOR this procedure are in the results section. POC CRITICAL Routine 03/11/2021 Results for 10:28 PM CHIEF CONSOLE OPERATOR this procedure are in the results section. POC GLUCOSE SCREEN Routine 03/11/2021 Results f or 9:55 PM CHIEF CONSOLE OPERATOR this procedure are in the results section. ANION GAP AM 03/11/2021 Results for 1:34 AM CHIEF CONSOLE OPERATOR this procedure are in the results section. .GLOMERULAR FILTRATION AM 03/11/2021 Resul ts for RATE 1:34 AM CHIEF CONSOLE OPERATOR this procedure are in the results section. SERUM CREATININE AM 03/11/2021 Results for 1:34 AM CHIEF CONSOLE OPERATOR this procedure are in the results section. MANUAL DIFFERENTIAL AM 03/11/2021 Results for 1:34 AM CHIEF CONSOLE OPERATOR this procedure are in the results section. Results CBC AM 03/11/2021 Results for 1:34 AM CHIEF CONSOLE OPERATOR this procedure are in the results section. ALKALINE PHOSPHATASE AM 03/11/2021 Results for 1:34 AM CHIEF CONSOLE OPERATOR this procedure are in the results section. ASPARTATE AM 03/11/2021 Results for AMINOTRANSFERASE 1:34 AM CHIEF CONSOLE OPERATOR this proced ure are in the results section. ALANINE AM 03/11/2021 Results for AMINOTRANSFERASE 1:34 AM CHIEF CONSOLE OPERATOR this proced ure are in the results section. MAGNESIUM LEVEL AM 03/11/2021 Results for 1:34 AM CHIEF CONSOLE OPERATOR this procedure are in the results section. CALCIUM LEVEL TOTAL AM 03/11/2021 Results for 1:34 AM CHIEF CONSOLE OPERATOR this procedure are in the results section. ALBUMIN LEVEL AM 03/11/2021 Results for 1:34 AM CHIEF CONSOLE OPERATOR this procedure are in the results section. FRACTIONATED BILIRUBIN AM 03/11/2021 Resul ts for 1:34 AM CHIEF CONSOLE OPERATOR this procedure are in the results section. PHOSPHORUS LEVEL AM 03/11/2021 Results for 1:34 AM CHIEF CONSOLE OPERATOR this procedure are in the results section. URIC ACID AM 03/11/2021 Results for 1:34 AM CHIEF CONSOLE OPERATOR this procedure are in the results section. LACTATE DEHYDROGENASE AM 03/11/2021 Result s for 1:34 AM CHIEF CONSOLE OPERATOR this procedure are in the results section. GLUCOSE, RANDOM AM 03/11/2021 Results for 1:34 AM CHIEF CONSOLE OPERATOR this procedure are in the results section. SERUM CREATININE AM 03/11/2021 1:34 AM CHIEF CONSOLE OPERATOR BLOOD UREA NITROGEN AM 03/11/2021 Results for 1:34 AM CHIEF CONSOLE OPERATOR this procedure are in the results section. CARBON DIOXIDE LEVEL AM 03/11/2021 Results for 1:34 AM CHIEF CONSOLE OPERATOR this procedure are in the results section. CHLORIDE LEVEL AM 03/11/2021 Results for 1:34 AM CHIEF CONSOLE OPERATOR this procedure are in the results section. POTASSIUM LEVEL AM 03/11/2021 Results for 1:34 AM CHIEF CONSOLE OPERATOR this procedure are in the results section. SODIUM LEVEL AM 03/11/2021 Results for 1:34 AM CHIEF CONSOLE OPERATOR this procedure are in the results section. COMPLETE BLOOD COUNT AM 03/11/2021 W/ DIFFERENTIAL 1:34 AM CHIEF CONSOLE OPERATOR TMP INTERPRETATION Routine 03/10/2021 Results f or ANTIBODY SCREEN 2:43 AM CHIEF CONSOLE OPERATOR this procedu re NEGATIVE are in the results section. CLOT EXPIRATION DATE Routine 03/10/2021 Results for 2:43 AM CHIEF CONSOLE OPERATOR this procedure are in the results section. ANION GAP AM 03/10/2021 Results for 2:43 AM CHIEF CONSOLE OPERATOR this procedure are in the results section. .GLOMERULAR FILTRATION AM 03/10/2021 Resul ts for RATE 2:43 AM CHIEF CONSOLE OPERATOR this procedure are in the results section. SERUM CREATININE AM 03/10/2021 Results for 2:43 AM CHIEF CONSOLE OPERATOR this procedure are in the results section. MANUAL DIFFERENTIAL AM 03/10/2021 Results for 2:43 AM CHIEF CONSOLE OPERATOR this procedure are in the results section. Results CBC AM 03/10/2021 Results for 2:43 AM CHIEF CONSOLE OPERATOR this procedure are in the results section. ANTIBODY SCREEN Routine 03/10/2021 Results for 2:43 AM CHIEF CONSOLE OPERATOR this procedure are in the results section. ABORH Routine 03/10/2021 Results for 2:43 AM CHIEF CONSOLE OPERATOR this procedure are in the results section. TYPE AND SCREEN Routine 03/10/2021 2:43 AM CHIEF CONSOLE OPERATOR ALKALINE PHOSPHATASE AM 03/10/2021 Results for 2:43 AM CHIEF CONSOLE OPERATOR this procedure are in the results section. ASPARTATE AM 03/10/2021 Results for AMINOTRANSFERASE 2:43 AM CHIEF CONSOLE OPERATOR this proced ure are in the results section. ALANINE AM 03/10/2021 Results for AMINOTRANSFERASE 2:43 AM CHIEF CONSOLE OPERATOR this proced ure are in the results section. MAGNESIUM LEVEL AM 03/10/2021 Results for 2:43 AM CHIEF CONSOLE OPERATOR this procedure are in the results section. CALCIUM LEVEL TOTAL AM 03/10/2021 Results for 2:43 AM CHIEF CONSOLE OPERATOR this procedure are in the results section. ALBUMIN LEVEL AM 03/10/2021 Results for 2:43 AM CHIEF CONSOLE OPERATOR this procedure are in the results section. FRACTIONATED BILIRUBIN AM 03/10/2021 Resul ts for 2:43 AM CHIEF CONSOLE OPERATOR this procedure are in the results section. PHOSPHORUS LEVEL AM 03/10/2021 Results for 2:43 AM CHIEF CONSOLE OPERATOR this procedure are in the results section. URIC ACID AM 03/10/2021 Results for 2:43 AM CHIEF CONSOLE OPERATOR this procedure are in the results section. LACTATE DEHYDROGENASE AM 03/10/2021 Result s for 2:43 AM CHIEF CONSOLE OPERATOR this procedure are in the results section. GLUCOSE, RANDOM AM 03/10/2021 Results for 2:43 AM CHIEF CONSOLE OPERATOR this procedure are in the results section. SERUM CREATININE AM 03/10/2021 2:43 AM CHIEF CONSOLE OPERATOR BLOOD UREA NITROGEN AM 03/10/2021 Results for 2:43 AM CHIEF CONSOLE OPERATOR this procedure are in the results section. CARBON DIOXIDE LEVEL AM 03/10/2021 Results for 2:43 AM CHIEF CONSOLE OPERATOR this procedure are in the results section. CHLORIDE LEVEL AM 03/10/2021 Results for 2:43 AM CHIEF CONSOLE OPERATOR this procedure are in the results section. POTASSIUM LEVEL AM 03/10/2021 Results for 2:43 AM CHIEF CONSOLE OPERATOR this procedure are in the results section. SODIUM LEVEL AM 03/10/2021 Results for 2:43 AM CHIEF CONSOLE OPERATOR this procedure are in the results section. COMPLETE BLOOD COUNT AM 03/10/2021 W/ DIFFERENTIAL 2:43 AM CHIEF CONSOLE OPERATOR COVID-19 (SARS-COV-2) Now 03/09/2021 Result s for PCR-ASYMPTOMATIC MC 9:40 AM CHIEF CONSOLE OPERATOR this pro cedure are in the results section. ANION GAP AM 03/09/2021 Results for 3:42 AM CHIEF CONSOLE OPERATOR this procedure are in the results section. .GLOMERULAR FILTRATION AM 03/09/2021 Resul ts for RATE 3:42 AM CHIEF CONSOLE OPERATOR this procedure are in the results section. SERUM CREATININE AM 03/09/2021 Results for 3:42 AM CHIEF CONSOLE OPERATOR this procedure are in the results section. MANUAL DIFFERENTIAL AM 03/09/2021 Results for 3:42 AM CHIEF CONSOLE OPERATOR this procedure are in the results section. Results CBC AM 03/09/2021 Results for 3:42 AM CHIEF CONSOLE OPERATOR this procedure are in the results section. ALKALINE PHOSPHATASE AM 03/09/2021 Results for 3:42 AM CHIEF CONSOLE OPERATOR this procedure are in the results section. ASPARTATE AM 03/09/2021 Results for AMINOTRANSFERASE 3:42 AM CHIEF CONSOLE OPERATOR this proced ure are in the results section. ALANINE AM 03/09/2021 Results for AMINOTRANSFERASE 3:42 AM CHIEF CONSOLE OPERATOR this proced ure are in the results section. MAGNESIUM LEVEL AM 03/09/2021 Results for 3:42 AM CHIEF CONSOLE OPERATOR this procedure are in the results section. CALCIUM LEVEL TOTAL AM 03/09/2021 Results for 3:42 AM CHIEF CONSOLE OPERATOR this procedure are in the results section. ALBUMIN LEVEL AM 03/09/2021 Results for 3:42 AM CHIEF CONSOLE OPERATOR this procedure are in the results section. FRACTIONATED BILIRUBIN AM 03/09/2021 Resul ts for 3:42 AM CHIEF CONSOLE OPERATOR this procedure are in the results section. PHOSPHORUS LEVEL AM 03/09/2021 Results for 3:42 AM CHIEF CONSOLE OPERATOR this procedure are in the results section. URIC ACID AM 03/09/2021 Results for 3:42 AM CHIEF CONSOLE OPERATOR this procedure are in the results section. LACTATE DEHYDROGENASE AM 03/09/2021 Result s for 3:42 AM CHIEF CONSOLE OPERATOR this procedure are in the results section. GLUCOSE, RANDOM AM 03/09/2021 Results for 3:42 AM CHIEF CONSOLE OPERATOR this procedure are in the results section. SERUM CREATININE AM 03/09/2021 3:42 AM CHIEF CONSOLE OPERATOR BLOOD UREA NITROGEN AM 03/09/2021 Results for 3:42 AM CHIEF CONSOLE OPERATOR this procedure are in the results section. CARBON DIOXIDE LEVEL AM 03/09/2021 Results for 3:42 AM CHIEF CONSOLE OPERATOR this procedure are in the results section. CHLORIDE LEVEL AM 03/09/2021 Results for 3:42 AM CHIEF CONSOLE OPERATOR this procedure are in the results section. POTASSIUM LEVEL AM 03/09/2021 Results for 3:42 AM CHIEF CONSOLE OPERATOR this procedure are in the results section. SODIUM LEVEL AM 03/09/2021 Results for 3:42 AM CHIEF CONSOLE OPERATOR this procedure are in the results section. COMPLETE BLOOD COUNT AM 03/09/2021 W/ DIFFERENTIAL 3:42 AM CHIEF CONSOLE OPERATOR ANION GAP AM 03/08/2021 Results for 4:25 AM CHIEF CONSOLE OPERATOR this procedure are in the results section. .GLOMERULAR FILTRATION AM 03/08/2021 Resul ts for RATE 4:25 AM CHIEF CONSOLE OPERATOR this procedure are in the results section. SERUM CREATININE AM 03/08/2021 Results for 4:25 AM CHIEF CONSOLE OPERATOR this procedure are in the results section. MANUAL DIFFERENTIAL AM 03/08/2021 Results for 4:25 AM CHIEF CONSOLE OPERATOR this procedure are in the results section. Results CBC AM 03/08/2021 Results for 4:25 AM CHIEF CONSOLE OPERATOR this procedure are in the results section. ALKALINE PHOSPHATASE AM 03/08/2021 Results for 4:25 AM CHIEF CONSOLE OPERATOR this procedure are in the results section. ASPARTATE AM 03/08/2021 Results for AMINOTRANSFERASE 4:25 AM CHIEF CONSOLE OPERATOR this proced ure are in the results section. ALANINE AM 03/08/2021 Results for AMINOTRANSFERASE 4:25 AM CHIEF CONSOLE OPERATOR this proced ure are in the results section. MAGNESIUM LEVEL AM 03/08/2021 Results for 4:25 AM CHIEF CONSOLE OPERATOR this procedure are in the results section. CALCIUM LEVEL TOTAL AM 03/08/2021 Results for 4:25 AM CHIEF CONSOLE OPERATOR this procedure are in the results section. ALBUMIN LEVEL AM 03/08/2021 Results for 4:25 AM CHIEF CONSOLE OPERATOR this procedure are in the results section. FRACTIONATED BILIRUBIN AM 03/08/2021 Resul ts for 4:25 AM CHIEF CONSOLE OPERATOR this procedure are in the results section. PHOSPHORUS LEVEL AM 03/08/2021 Results for 4:25 AM CHIEF CONSOLE OPERATOR this procedure are in the results section. URIC ACID AM 03/08/2021 Results for 4:25 AM CHIEF CONSOLE OPERATOR this procedure are in the results section. LACTATE DEHYDROGENASE AM 03/08/2021 Result s for 4:25 AM CHIEF CONSOLE OPERATOR this procedure are in the results section. GLUCOSE, RANDOM AM 03/08/2021 Results for 4:25 AM CHIEF CONSOLE OPERATOR this procedure are in the results section. SERUM CREATININE AM 03/08/2021 4:25 AM CHIEF CONSOLE OPERATOR BLOOD UREA NITROGEN AM 03/08/2021 Results for 4:25 AM CHIEF CONSOLE OPERATOR this procedure are in the results section. CARBON DIOXIDE LEVEL AM 03/08/2021 Results for 4:25 AM CHIEF CONSOLE OPERATOR this procedure are in the results section. CHLORIDE LEVEL AM 03/08/2021 Results for 4:25 AM CHIEF CONSOLE OPERATOR this procedure are in the results section. POTASSIUM LEVEL AM 03/08/2021 Results for 4:25 AM CHIEF CONSOLE OPERATOR this procedure are in the results section. SODIUM LEVEL AM 03/08/2021 Results for 4:25 AM CHIEF CONSOLE OPERATOR this procedure are in the results section. COMPLETE BLOOD COUNT AM 03/08/2021 W/ DIFFERENTIAL 4:25 AM CHIEF CONSOLE OPERATOR CLOT EXPIRATION DATE Routine 03/07/2021 Results for 4:02 AM CHIEF CONSOLE OPERATOR this procedure are in the results section. TMP INTERPRETATION Routine 03/07/2021 Results f or ANTIBODY SCREEN 4:02 AM CHIEF CONSOLE OPERATOR this procedu re NEGATIVE are in the results section. ANION GAP AM 03/07/2021 Results for 4:02 AM CHIEF CONSOLE OPERATOR this procedure are in the results section. .GLOMERULAR FILTRATION AM 03/07/2021 Resul ts for RATE 4:02 AM CHIEF CONSOLE OPERATOR this procedure are in the results section. SERUM CREATININE AM 03/07/2021 Results for 4:02 AM CHIEF CONSOLE OPERATOR this procedure are in the results section. MANUAL DIFFERENTIAL AM 03/07/2021 Results for 4:02 AM CHIEF CONSOLE OPERATOR this procedure are in the results section. Results CBC AM 03/07/2021 Results for 4:02 AM CHIEF CONSOLE OPERATOR this procedure are in the results section. ANTIBODY SCREEN Routine 03/07/2021 Results for 4:02 AM CHIEF CONSOLE OPERATOR this procedure are in the results section. ABORH Routine 03/07/2021 Results for 4:02 AM CHIEF CONSOLE OPERATOR this procedure are in the results section. TYPE AND SCREEN Routine 03/07/2021 4:02 AM CHIEF CONSOLE OPERATOR ALKALINE PHOSPHATASE AM 03/07/2021 Results for 4:02 AM CHIEF CONSOLE OPERATOR this procedure are in the results section. ASPARTATE AM 03/07/2021 Results for AMINOTRANSFERASE 4:02 AM CHIEF CONSOLE OPERATOR this proced ure are in the results section. ALANINE AM 03/07/2021 Results for AMINOTRANSFERASE 4:02 AM CHIEF CONSOLE OPERATOR this proced ure are in the results section. MAGNESIUM LEVEL AM 03/07/2021 Results for 4:02 AM CHIEF CONSOLE OPERATOR this procedure are in the results section. CALCIUM LEVEL TOTAL AM 03/07/2021 Results for 4:02 AM CHIEF CONSOLE OPERATOR this procedure are in the results section. ALBUMIN LEVEL AM 03/07/2021 Results for 4:02 AM CHIEF CONSOLE OPERATOR this procedure are in the results section. FRACTIONATED BILIRUBIN AM 03/07/2021 Resul ts for 4:02 AM CHIEF CONSOLE OPERATOR this procedure are in the results section. PHOSPHORUS LEVEL AM 03/07/2021 Results for 4:02 AM CHIEF CONSOLE OPERATOR this procedure are in the results section. URIC ACID AM 03/07/2021 Results for 4:02 AM CHIEF CONSOLE OPERATOR this procedure are in the results section. LACTATE DEHYDROGENASE AM 03/07/2021 Result s for 4:02 AM CHIEF CONSOLE OPERATOR this procedure are in the results section. GLUCOSE, RANDOM AM 03/07/2021 Results for 4:02 AM CHIEF CONSOLE OPERATOR this procedure are in the results section. SERUM CREATININE AM 03/07/2021 4:02 AM CHIEF CONSOLE OPERATOR BLOOD UREA NITROGEN AM 03/07/2021 Results for 4:02 AM CHIEF CONSOLE OPERATOR this procedure are in the results section. CARBON DIOXIDE LEVEL AM 03/07/2021 Results for 4:02 AM CHIEF CONSOLE OPERATOR this procedure are in the results section. CHLORIDE LEVEL AM 03/07/2021 Results for 4:02 AM CHIEF CONSOLE OPERATOR this procedure are in the results section. POTASSIUM LEVEL AM 03/07/2021 Results for 4:02 AM CHIEF CONSOLE OPERATOR this procedure are in the results section. SODIUM LEVEL AM 03/07/2021 Results for 4:02 AM CHIEF CONSOLE OPERATOR this procedure are in the results section. COMPLETE BLOOD COUNT AM 03/07/2021 W/ DIFFERENTIAL 4:02 AM CHIEF CONSOLE OPERATOR ANION GAP AM 03/06/2021 Results for 4:13 AM CHIEF CONSOLE OPERATOR this procedure are in the results section. .GLOMERULAR FILTRATION AM 03/06/2021 Resul ts for RATE 4:13 AM CHIEF CONSOLE OPERATOR this procedure are in the results section. SERUM CREATININE AM 03/06/2021 Results for 4:13 AM CHIEF CONSOLE OPERATOR this procedure are in the results section. MANUAL DIFFERENTIAL AM 03/06/2021 Results for 4:13 AM CHIEF CONSOLE OPERATOR this procedure are in the results section. Results CBC AM 03/06/2021 Results for 4:13 AM CHIEF CONSOLE OPERATOR this procedure are in the results section. ALKALINE PHOSPHATASE AM 03/06/2021 Results for 4:13 AM CHIEF CONSOLE OPERATOR this procedure are in the results section. ASPARTATE AM 03/06/2021 Results for AMINOTRANSFERASE 4:13 AM CHIEF CONSOLE OPERATOR this proced ure are in the results section. ALANINE AM 03/06/2021 Results for AMINOTRANSFERASE 4:13 AM CHIEF CONSOLE OPERATOR this proced ure are in the results section. MAGNESIUM LEVEL AM 03/06/2021 Results for 4:13 AM CHIEF CONSOLE OPERATOR this procedure are in the results section. CALCIUM LEVEL TOTAL AM 03/06/2021 Results for 4:13 AM CHIEF CONSOLE OPERATOR this procedure are in the results section. ALBUMIN LEVEL AM 03/06/2021 Results for 4:13 AM CHIEF CONSOLE OPERATOR this procedure are in the results section. FRACTIONATED BILIRUBIN AM 03/06/2021 Resul ts for 4:13 AM CHIEF CONSOLE OPERATOR this procedure are in the results section. PHOSPHORUS LEVEL AM 03/06/2021 Results for 4:13 AM CHIEF CONSOLE OPERATOR this procedure are in the results section. URIC ACID AM 03/06/2021 Results for 4:13 AM CHIEF CONSOLE OPERATOR this procedure are in the results section. LACTATE DEHYDROGENASE AM 03/06/2021 Result s for 4:13 AM CHIEF CONSOLE OPERATOR this procedure are in the results section. GLUCOSE, RANDOM AM 03/06/2021 Results for 4:13 AM CHIEF CONSOLE OPERATOR this procedure are in the results section. SERUM CREATININE AM 03/06/2021 4:13 AM CHIEF CONSOLE OPERATOR BLOOD UREA NITROGEN AM 03/06/2021 Results for 4:13 AM CHIEF CONSOLE OPERATOR this procedure are in the results section. CARBON DIOXIDE LEVEL AM 03/06/2021 Results for 4:13 AM CHIEF CONSOLE OPERATOR this procedure are in the results section. CHLORIDE LEVEL AM 03/06/2021 Results for 4:13 AM CHIEF CONSOLE OPERATOR this procedure are in the results section. POTASSIUM LEVEL AM 03/06/2021 Results for 4:13 AM CHIEF CONSOLE OPERATOR this procedure are in the results section. SODIUM LEVEL AM 03/06/2021 Results for 4:13 AM CHIEF CONSOLE OPERATOR this procedure are in the results section. COMPLETE BLOOD COUNT AM 03/06/2021 W/ DIFFERENTIAL 4:13 AM CHIEF CONSOLE OPERATOR ANION GAP AM 03/05/2021 Results for 6:30 AM CHIEF CONSOLE OPERATOR this procedure are in the results section. .GLOMERULAR FILTRATION AM 03/05/2021 Resul ts for RATE 6:30 AM CHIEF CONSOLE OPERATOR this procedure are in the results section. SERUM CREATININE AM 03/05/2021 Results for 6:30 AM CHIEF CONSOLE OPERATOR this procedure are in the results section. MANUAL DIFFERENTIAL AM 03/05/2021 Results for 6:30 AM CHIEF CONSOLE OPERATOR this procedure are in the results section. Results CBC AM 03/05/2021 Results for 6:30 AM CHIEF CONSOLE OPERATOR this procedure are in the results section. ALKALINE PHOSPHATASE AM 03/05/2021 Results for 6:30 AM CHIEF CONSOLE OPERATOR this procedure are in the results section. ASPARTATE AM 03/05/2021 Results for AMINOTRANSFERASE 6:30 AM CHIEF CONSOLE OPERATOR this proced ure are in the results section. ALANINE AM 03/05/2021 Results for AMINOTRANSFERASE 6:30 AM CHIEF CONSOLE OPERATOR this proced ure are in the results section. MAGNESIUM LEVEL AM 03/05/2021 Results for 6:30 AM CHIEF CONSOLE OPERATOR this procedure are in the results section. CALCIUM LEVEL TOTAL AM 03/05/2021 Results for 6:30 AM CHIEF CONSOLE OPERATOR this procedure are in the results section. ALBUMIN LEVEL AM 03/05/2021 Results for 6:30 AM CHIEF CONSOLE OPERATOR this procedure are in the results section. FRACTIONATED BILIRUBIN AM 03/05/2021 Resul ts for 6:30 AM CHIEF CONSOLE OPERATOR this procedure are in the results section. PHOSPHORUS LEVEL AM 03/05/2021 Results for 6:30 AM CHIEF CONSOLE OPERATOR this procedure are in the results section. URIC ACID AM 03/05/2021 Results for 6:30 AM CHIEF CONSOLE OPERATOR this procedure are in the results section. LACTATE DEHYDROGENASE AM 03/05/2021 Result s for 6:30 AM CHIEF CONSOLE OPERATOR this procedure are in the results section. GLUCOSE, RANDOM AM 03/05/2021 Results for 6:30 AM CHIEF CONSOLE OPERATOR this procedure are in the results section. SERUM CREATININE AM 03/05/2021 6:30 AM CHIEF CONSOLE OPERATOR BLOOD UREA NITROGEN AM 03/05/2021 Results for 6:30 AM CHIEF CONSOLE OPERATOR this procedure are in the results section. CARBON DIOXIDE LEVEL AM 03/05/2021 Results for 6:30 AM CHIEF CONSOLE OPERATOR this procedure are in the results section. CHLORIDE LEVEL AM 03/05/2021 Results for 6:30 AM CHIEF CONSOLE OPERATOR this procedure are in the results section. POTASSIUM LEVEL AM 03/05/2021 Results for 6:30 AM CHIEF CONSOLE OPERATOR this procedure are in the results section. SODIUM LEVEL AM 03/05/2021 Results for 6:30 AM CHIEF CONSOLE OPERATOR this procedure are in the results section. COMPLETE BLOOD COUNT AM 03/05/2021 W/ DIFFERENTIAL 6:30 AM CHIEF CONSOLE OPERATOR TMP INTERPRETATION Routine 03/04/2021 Results f or ANTIBODY SCREEN 4:35 AM CHIEF CONSOLE OPERATOR this procedu re NEGATIVE are in the results section. CLOT EXPIRATION DATE Routine 03/04/2021 Results for 4:35 AM CHIEF CONSOLE OPERATOR this procedure are in the results section. ANION GAP AM 03/04/2021 Results for 4:35 AM CHIEF CONSOLE OPERATOR this procedure are in the results section. .GLOMERULAR FILTRATION AM 03/04/2021 Resul ts for RATE 4:35 AM CHIEF CONSOLE OPERATOR this procedure are in the results section. SERUM CREATININE AM 03/04/2021 Results for 4:35 AM CHIEF CONSOLE OPERATOR this procedure are in the results section. MANUAL DIFFERENTIAL AM 03/04/2021 Results for 4:35 AM CHIEF CONSOLE OPERATOR this procedure are in the results section. Results CBC AM 03/04/2021 Results for 4:35 AM CHIEF CONSOLE OPERATOR this procedure are in the results section. ANTIBODY SCREEN Routine 03/04/2021 Results for 4:35 AM CHIEF CONSOLE OPERATOR this procedure are in the results section. ABORH Routine 03/04/2021 Results for 4:35 AM CHIEF CONSOLE OPERATOR this procedure are in the results section. TYPE AND SCREEN Routine 03/04/2021 4:35 AM CHIEF CONSOLE OPERATOR ALKALINE PHOSPHATASE AM 03/04/2021 Results for 4:35 AM CHIEF CONSOLE OPERATOR this procedure are in the results section. ASPARTATE AM 03/04/2021 Results for AMINOTRANSFERASE 4:35 AM CHIEF CONSOLE OPERATOR this proced ure are in the results section. ALANINE AM 03/04/2021 Results for AMINOTRANSFERASE 4:35 AM CHIEF CONSOLE OPERATOR this proced ure are in the results section. MAGNESIUM LEVEL AM 03/04/2021 Results for 4:35 AM CHIEF CONSOLE OPERATOR this procedure are in the results section. CALCIUM LEVEL TOTAL AM 03/04/2021 Results for 4:35 AM CHIEF CONSOLE OPERATOR this procedure are in the results section. ALBUMIN LEVEL AM 03/04/2021 Results for 4:35 AM CHIEF CONSOLE OPERATOR this procedure are in the results section. FRACTIONATED BILIRUBIN AM 03/04/2021 Resul ts for 4:35 AM CHIEF CONSOLE OPERATOR this procedure are in the results section. PHOSPHORUS LEVEL AM 03/04/2021 Results for 4:35 AM CHIEF CONSOLE OPERATOR this procedure are in the results section. URIC ACID AM 03/04/2021 Results for 4:35 AM CHIEF CONSOLE OPERATOR this procedure are in the results section. LACTATE DEHYDROGENASE AM 03/04/2021 Result s for 4:35 AM CHIEF CONSOLE OPERATOR this procedure are in the results section. GLUCOSE, RANDOM AM 03/04/2021 Results for 4:35 AM CHIEF CONSOLE OPERATOR this procedure are in the results section. SERUM CREATININE AM 03/04/2021 4:35 AM CHIEF CONSOLE OPERATOR BLOOD UREA NITROGEN AM 03/04/2021 Results for 4:35 AM CHIEF CONSOLE OPERATOR this procedure are in the results section. CARBON DIOXIDE LEVEL AM 03/04/2021 Results for 4:35 AM CHIEF CONSOLE OPERATOR this procedure are in the results section. CHLORIDE LEVEL AM 03/04/2021 Results for 4:35 AM CHIEF CONSOLE OPERATOR this procedure are in the results section. POTASSIUM LEVEL AM 03/04/2021 Results for 4:35 AM CHIEF CONSOLE OPERATOR this procedure are in the results section. SODIUM LEVEL AM 03/04/2021 Results for 4:35 AM CHIEF CONSOLE OPERATOR this procedure are in the results section. COMPLETE BLOOD COUNT AM 03/04/2021 W/ DIFFERENTIAL 4:35 AM CHIEF CONSOLE OPERATOR HP FC LYMPHOMA B Routine 03/03/2021 KAPPA/LAMBDA 5:14 PM CHIEF CONSOLE OPERATOR INTERPRETATION AND REPORT HP FC FLOW CYTOMETRY Routine 03/03/2021 Results for BLOOD COLLECTION 5:14 PM CHIEF CONSOLE OPERATOR this proced ure are in the results section. POTASSIUM LEVEL STAT 03/03/2021 Results for 5:11 PM CHIEF CONSOLE OPERATOR this procedure are in the results section. 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 AFB CULTURE W/ SMEAR Now 03/03/2021 1:41 PM CHIEF CONSOLE OPERATOR CRYPTOCOCCAL ANTIGEN Routine 03/03/2021 Results for PATH REVIEW 1:41 PM CHIEF CONSOLE OPERATOR this procedure are in the results section. MENINGITIS-ENCEPHALITI STAT 03/03/2021 Resul ts for S MULTIPLEX PANEL PATH 1:41 PM CHIEF CONSOLE OPERATOR this procedure REVIEW are in the results section. MENINGITIS-ENCEPHALITI STAT 03/03/2021 Resul ts for S PANEL 1:41 PM CHIEF CONSOLE OPERATOR this procedure are in the results section. AFB CULTURE W/ SMEAR Now 03/03/2021 Results for 1:41 PM CHIEF CONSOLE OPERATOR this procedure are in the results section. CRYPTOCOCCAL ANTIGEN Now 03/03/2021 Results for 1:41 PM CHIEF CONSOLE OPERATOR this procedure are in the results section. CSF CULTURE Now 03/03/2021 Results for 1:41 PM CHIEF CONSOLE OPERATOR this procedure are in the results section. FUNGUS CULTURE W/ Now 03/03/2021 Results fo r SMEAR 1:41 PM CHIEF CONSOLE OPERATOR this procedure are in the results section. CELL COUNT W/ DIFF Now 03/03/2021 Results f or CEREBROSPINAL FLUID 1:41 PM CHIEF CONSOLE OPERATOR this pro cedure are in the results section. GLUCOSE CEREBROSPINAL Now 03/03/2021 Result s for FLUID 1:41 PM CHIEF CONSOLE OPERATOR this procedure are in the results section. PROTEIN CEREBROSPINAL Now 03/03/2021 Result s for FLUID 1:41 PM CHIEF CONSOLE OPERATOR this procedure are in the results section. PARANEOPLASTIC Routine 03/03/2021 Results for AUTO-ANTIBODY EVAL, 1:41 PM CHIEF CONSOLE OPERATOR this pro cedure CSF are in the results section. 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 MANUAL DIFFERENTIAL STAT 03/03/2021 Results for 8:59 AM CHIEF CONSOLE OPERATOR this procedure are in the results section. Results CBC STAT 03/03/2021 Results for 8:59 AM CHIEF CONSOLE OPERATOR this procedure are in the results section. ANION GAP AM 03/03/2021 Results for 5:26 AM CHIEF CONSOLE OPERATOR this procedure are in the results section. .GLOMERULAR FILTRATION AM 03/03/2021 Resul ts for RATE 5:26 AM CHIEF CONSOLE OPERATOR this procedure are in the results section. SERUM CREATININE AM 03/03/2021 Results for 5:26 AM CHIEF CONSOLE OPERATOR this procedure are in the results section. Results CBC AM 03/03/2021 Results for 5:26 AM CHIEF CONSOLE OPERATOR this procedure are in the results section. ALKALINE PHOSPHATASE AM 03/03/2021 Results for 5:26 AM CHIEF CONSOLE OPERATOR this procedure are in the results section. ASPARTATE AM 03/03/2021 Results for AMINOTRANSFERASE 5:26 AM CHIEF CONSOLE OPERATOR this proced ure are in the results section. ALANINE AM 03/03/2021 Results for AMINOTRANSFERASE 5:26 AM CHIEF CONSOLE OPERATOR this proced ure are in the results section. MAGNESIUM LEVEL AM 03/03/2021 Results for 5:26 AM CHIEF CONSOLE OPERATOR this procedure are in the results section. CALCIUM LEVEL TOTAL AM 03/03/2021 Results for 5:26 AM CHIEF CONSOLE OPERATOR this procedure are in the results section. ALBUMIN LEVEL AM 03/03/2021 Results for 5:26 AM CHIEF CONSOLE OPERATOR this procedure are in the results section. FRACTIONATED BILIRUBIN AM 03/03/2021 Resul ts for 5:26 AM CHIEF CONSOLE OPERATOR this procedure are in the results section. PHOSPHORUS LEVEL AM 03/03/2021 Results for 5:26 AM CHIEF CONSOLE OPERATOR this procedure are in the results section. URIC ACID AM 03/03/2021 Results for 5:26 AM CHIEF CONSOLE OPERATOR this procedure are in the results section. LACTATE DEHYDROGENASE AM 03/03/2021 Result s for 5:26 AM CHIEF CONSOLE OPERATOR this procedure are in the results section. GLUCOSE, RANDOM AM 03/03/2021 Results for 5:26 AM CHIEF CONSOLE OPERATOR this procedure are in the results section. SERUM CREATININE AM 03/03/2021 5:26 AM CHIEF CONSOLE OPERATOR BLOOD UREA NITROGEN AM 03/03/2021 Results for 5:26 AM CHIEF CONSOLE OPERATOR this procedure are in the results section. CARBON DIOXIDE LEVEL AM 03/03/2021 Results for 5:26 AM CHIEF CONSOLE OPERATOR this procedure are in the results section. CHLORIDE LEVEL AM 03/03/2021 Results for 5:26 AM CHIEF CONSOLE OPERATOR this procedure are in the results section. POTASSIUM LEVEL AM 03/03/2021 Results for 5:26 AM CHIEF CONSOLE OPERATOR this procedure are in the results section. SODIUM LEVEL AM 03/03/2021 Results for 5:26 AM CHIEF CONSOLE OPERATOR this procedure are in the results section. COMPLETE BLOOD COUNT AM 03/03/2021 W/ DIFFERENTIAL 5:26 AM CHIEF CONSOLE OPERATOR COVID-19 (SARS-COV-2) Now 03/02/2021 Result s for PCR-ASYMPTOMATIC MC 5:34 PM CHIEF CONSOLE OPERATOR this pro cedure are in the results section. HP CG MYC TISSUE FISH Routine 03/02/2021 INTERPRETATION AND 11:06 AM CHIEF CONSOLE OPERATOR REPORT HP CYTOGENETICS BLOOD Routine 03/02/2021 Result s for COLLECTION 11:06 AM CHIEF CONSOLE OPERATOR this procedure are in the results section. IR CT GUIDED BIOPSY STAT 03/02/2021 Follicular lymphoma R esults for RETROPERITONEAL 9:30 AM CHIEF CONSOLE OPERATOR this procedu re are in the results section. 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 PATHOLOGY BIOPSY Routine 03/02/2021 Follicular lymp trav Results for INTERPRETATION 8:53 AM CHIEF CONSOLE OPERATOR Follicular lymphoma this p rocedure grade IIIb [...] GAP AM 03/02/2021 Results for 4:19 AM CHIEF CONSOLE OPERATOR this procedure are in the results section. .GLOMERULAR FILTRATION AM 03/02/2021 Resul ts for RATE 4:19 AM CHIEF CONSOLE OPERATOR this procedure are in the results section. SERUM CREATININE AM 03/02/2021 Results for 4:19 AM CHIEF CONSOLE OPERATOR this procedure are in the results section. MANUAL DIFFERENTIAL AM 03/02/2021 Results for 4:19 AM CHIEF CONSOLE OPERATOR this procedure are in the results section. Results CBC AM 03/02/2021 Results for 4:19 AM CHIEF CONSOLE OPERATOR this procedure are in the results section. APTT Now 03/02/2021 Results for 4:19 AM CHIEF CONSOLE OPERATOR this procedure are in the results section. PROTHROMBIN TIME Routine 03/02/2021 Results for 4:19 AM CHIEF CONSOLE OPERATOR this procedure are in the results section. ALKALINE PHOSPHATASE AM 03/02/2021 Results for 4:19 AM CHIEF CONSOLE OPERATOR this procedure are in the results section. ASPARTATE AM 03/02/2021 Results for AMINOTRANSFERASE 4:19 AM CHIEF CONSOLE OPERATOR this proced ure are in the results section. ALANINE AM 03/02/2021 Results for AMINOTRANSFERASE 4:19 AM CHIEF CONSOLE OPERATOR this proced ure are in the results section. MAGNESIUM LEVEL AM 03/02/2021 Results for 4:19 AM CHIEF CONSOLE OPERATOR this procedure are in the results section. CALCIUM LEVEL TOTAL AM 03/02/2021 Results for 4:19 AM CHIEF CONSOLE OPERATOR this procedure are in the results section. ALBUMIN LEVEL AM 03/02/2021 Results for 4:19 AM CHIEF CONSOLE OPERATOR this procedure are in the results section. FRACTIONATED BILIRUBIN AM 03/02/2021 Resul ts for 4:19 AM CHIEF CONSOLE OPERATOR this procedure are in the results section. PHOSPHORUS LEVEL AM 03/02/2021 Results for 4:19 AM CHIEF CONSOLE OPERATOR this procedure are in the results section. URIC ACID AM 03/02/2021 Results for 4:19 AM CHIEF CONSOLE OPERATOR this procedure are in the results section. LACTATE DEHYDROGENASE AM 03/02/2021 Result s for 4:19 AM CHIEF CONSOLE OPERATOR this procedure are in the results section. GLUCOSE, RANDOM AM 03/02/2021 Results for 4:19 AM CHIEF CONSOLE OPERATOR this procedure are in the results section. SERUM CREATININE AM 03/02/2021 4:19 AM CHIEF CONSOLE OPERATOR BLOOD UREA NITROGEN AM 03/02/2021 Results for 4:19 AM CHIEF CONSOLE OPERATOR this procedure are in the results section. CARBON DIOXIDE LEVEL AM 03/02/2021 Results for 4:19 AM CHIEF CONSOLE OPERATOR this procedure are in the results section. CHLORIDE LEVEL AM 03/02/2021 Results for 4:19 AM CHIEF CONSOLE OPERATOR this procedure are in the results section. POTASSIUM LEVEL AM 03/02/2021 Results for 4:19 AM CHIEF CONSOLE OPERATOR this procedure are in the results section. SODIUM LEVEL AM 03/02/2021 Results for 4:19 AM CHIEF CONSOLE OPERATOR this procedure are in the results section. COMPLETE BLOOD COUNT AM 03/02/2021 W/ DIFFERENTIAL 4:19 AM CHIEF CONSOLE OPERATOR CLOT EXPIRATION DATE Routine 03/01/2021 Results for 12:35 PM CHIEF CONSOLE OPERATOR this procedure are in the results section. TMP INTERPRETATION Routine 03/01/2021 Results f or ANTIBODY SCREEN 12:35 PM CHIEF CONSOLE OPERATOR this procedu re NEGATIVE are in the results section. ANTIBODY SCREEN Routine 03/01/2021 Results for 12:35 PM CHIEF CONSOLE OPERATOR this procedure are in the results section. ABORH Routine 03/01/2021 Results for 12:35 PM CHIEF CONSOLE OPERATOR this procedure are in the results section. PROTHROMBIN TIME Routine 03/01/2021 Results for 12:35 PM CHIEF CONSOLE OPERATOR this procedure are in the results section. TYPE AND SCREEN Routine 03/01/2021 12:35 PM CHIEF CONSOLE OPERATOR ANION GAP AM 03/01/2021 Results for 4:11 AM CHIEF CONSOLE OPERATOR this procedure are in the results section. .GLOMERULAR FILTRATION AM 03/01/2021 Resul ts for RATE 4:11 AM CHIEF CONSOLE OPERATOR this procedure are in the results section. SERUM CREATININE AM 03/01/2021 Results for 4:11 AM CHIEF CONSOLE OPERATOR this procedure are in the results section. MANUAL DIFFERENTIAL AM 03/01/2021 Results for 4:11 AM CHIEF CONSOLE OPERATOR this procedure are in the results section. Results CBC AM 03/01/2021 Results for 4:11 AM CHIEF CONSOLE OPERATOR this procedure are in the results section. ALKALINE PHOSPHATASE AM 03/01/2021 Results for 4:11 AM CHIEF CONSOLE OPERATOR this procedure are in the results section. ASPARTATE AM 03/01/2021 Results for AMINOTRANSFERASE 4:11 AM CHIEF CONSOLE OPERATOR this proced ure are in the results section. ALANINE AM 03/01/2021 Results for AMINOTRANSFERASE 4:11 AM CHIEF CONSOLE OPERATOR this proced ure are in the results section. MAGNESIUM LEVEL AM 03/01/2021 Results for 4:11 AM CHIEF CONSOLE OPERATOR this procedure are in the results section. CALCIUM LEVEL TOTAL AM 03/01/2021 Results for 4:11 AM CHIEF CONSOLE OPERATOR this procedure are in the results section. ALBUMIN LEVEL AM 03/01/2021 Results for 4:11 AM CHIEF CONSOLE OPERATOR this procedure are in the results section. FRACTIONATED BILIRUBIN AM 03/01/2021 Resul ts for 4:11 AM CHIEF CONSOLE OPERATOR this procedure are in the results section. PHOSPHORUS LEVEL AM 03/01/2021 Results for 4:11 AM CHIEF CONSOLE OPERATOR this procedure are in the results section. URIC ACID AM 03/01/2021 Results for 4:11 AM CHIEF CONSOLE OPERATOR this procedure are in the results section. LACTATE DEHYDROGENASE AM 03/01/2021 Result s for 4:11 AM CHIEF CONSOLE OPERATOR this procedure are in the results section. GLUCOSE, RANDOM AM 03/01/2021 Results for 4:11 AM CHIEF CONSOLE OPERATOR this procedure are in the results section. SERUM CREATININE AM 03/01/2021 4:11 AM CHIEF CONSOLE OPERATOR BLOOD UREA NITROGEN AM 03/01/2021 Results for 4:11 AM CHIEF CONSOLE OPERATOR this procedure are in the results section. CARBON DIOXIDE LEVEL AM 03/01/2021 Results for 4:11 AM CHIEF CONSOLE OPERATOR this procedure are in the results section. CHLORIDE LEVEL AM 03/01/2021 Results for 4:11 AM CHIEF CONSOLE OPERATOR this procedure are in the results section. POTASSIUM LEVEL AM 03/01/2021 Results for 4:11 AM CHIEF CONSOLE OPERATOR this procedure are in the results section. SODIUM LEVEL AM 03/01/2021 Results for 4:11 AM CHIEF CONSOLE OPERATOR this procedure are in the results section. COMPLETE BLOOD COUNT AM 03/01/2021 W/ DIFFERENTIAL 4:11 AM CHIEF CONSOLE OPERATOR TROPONIN T Routine 03/01/2021 Results for 4:11 AM CHIEF CONSOLE OPERATOR this procedure are in the results section. AMMONIA LEVEL Routine 02/28/2021 Results for 6:56 PM CHIEF CONSOLE OPERATOR this procedure are in the results section. LACTIC ACID, VENOUS Routine 02/28/2021 Results for 6:56 PM CHIEF CONSOLE OPERATOR this procedure are in the results section. BLOODCULTURE Now 02/28/2021 Results for 6:56 PM CHIEF CONSOLE OPERATOR this procedure are in the results section. URINALYSIS WITH Now 02/28/2021 Results for MICROSCOPIC IF 1:23 PM CHIEF CONSOLE OPERATOR this procedur e INDICATED are in the results section. URINE CULTURE Now 02/28/2021 Results for 1:23 PM CHIEF CONSOLE OPERATOR this procedure are in the results section. ANION GAP AM 02/28/2021 Results for 4:49 AM CHIEF CONSOLE OPERATOR this procedure are in the results section. .GLOMERULAR FILTRATION AM 02/28/2021 Resul ts for RATE 4:49 AM CHIEF CONSOLE OPERATOR this procedure are in the results section. SERUM CREATININE AM 02/28/2021 Results for 4:49 AM CHIEF CONSOLE OPERATOR this procedure are in the results section. MANUAL DIFFERENTIAL AM 02/28/2021 Results for 4:49 AM CHIEF CONSOLE OPERATOR this procedure are in the results section. Results CBC AM 02/28/2021 Results for 4:49 AM CHIEF CONSOLE OPERATOR this procedure are in the results section. ALKALINE PHOSPHATASE AM 02/28/2021 Results for 4:49 AM CHIEF CONSOLE OPERATOR this procedure are in the results section. ASPARTATE AM 02/28/2021 Results for AMINOTRANSFERASE 4:49 AM CHIEF CONSOLE OPERATOR this proced ure are in the results section. ALANINE AM 02/28/2021 Results for AMINOTRANSFERASE 4:49 AM CHIEF CONSOLE OPERATOR this proced ure are in the results section. MAGNESIUM LEVEL AM 02/28/2021 Results for 4:49 AM CHIEF CONSOLE OPERATOR this procedure are in the results section. CALCIUM LEVEL TOTAL AM 02/28/2021 Results for 4:49 AM CHIEF CONSOLE OPERATOR this procedure are in the results section. ALBUMIN LEVEL AM 02/28/2021 Results for 4:49 AM CHIEF CONSOLE OPERATOR this procedure are in the results section. FRACTIONATED BILIRUBIN AM 02/28/2021 Resul ts for 4:49 AM CHIEF CONSOLE OPERATOR this procedure are in the results section. PHOSPHORUS LEVEL AM 02/28/2021 Results for 4:49 AM CHIEF CONSOLE OPERATOR this procedure are in the results section. URIC ACID AM 02/28/2021 Results for 4:49 AM CHIEF CONSOLE OPERATOR this procedure are in the results section. LACTATE DEHYDROGENASE AM 02/28/2021 Result s for 4:49 AM CHIEF CONSOLE OPERATOR this procedure are in the results section. GLUCOSE, RANDOM AM 02/28/2021 Results for 4:49 AM CHIEF CONSOLE OPERATOR this procedure are in the results section. SERUM CREATININE AM 02/28/2021 4:49 AM CHIEF CONSOLE OPERATOR BLOOD UREA NITROGEN AM 02/28/2021 Results for 4:49 AM CHIEF CONSOLE OPERATOR this procedure are in the results section. CARBON DIOXIDE LEVEL AM 02/28/2021 Results for 4:49 AM CHIEF CONSOLE OPERATOR this procedure are in the results section. CHLORIDE LEVEL AM 02/28/2021 Results for 4:49 AM CHIEF CONSOLE OPERATOR this procedure are in the results section. POTASSIUM LEVEL AM 02/28/2021 Results for 4:49 AM CHIEF CONSOLE OPERATOR this procedure are in the results section. SODIUM LEVEL AM 02/28/2021 Results for 4:49 AM CHIEF CONSOLE OPERATOR this procedure are in the results section. COMPLETE BLOOD COUNT AM 02/28/2021 W/ DIFFERENTIAL 4:49 AM CHIEF CONSOLE OPERATOR PROTHROMBIN TIME STAT 02/27/2021 Results for 10:55 PM CHIEF CONSOLE OPERATOR this procedure are in the results section. MRI BRAIN W WO Routine 02/27/2021 Results for CONTRAST 1:12 PM CHIEF CONSOLE OPERATOR this procedure are in the results section. ANION GAP AM 02/27/2021 Results for 6:22 AM CHIEF CONSOLE OPERATOR this procedure are in the results section. .GLOMERULAR FILTRATION AM 02/27/2021 Resul ts for RATE 6:22 AM CHIEF CONSOLE OPERATOR this procedure are in the results section. SERUM CREATININE AM 02/27/2021 Results for 6:22 AM CHIEF CONSOLE OPERATOR this procedure are in the results section. MANUAL DIFFERENTIAL AM 02/27/2021 Results for 6:22 AM CHIEF CONSOLE OPERATOR this procedure are in the results section. Results CBC AM 02/27/2021 Results for 6:22 AM CHIEF CONSOLE OPERATOR this procedure are in the results section. ALKALINE PHOSPHATASE AM 02/27/2021 Results for 6:22 AM CHIEF CONSOLE OPERATOR this procedure are in the results section. ASPARTATE AM 02/27/2021 Results for AMINOTRANSFERASE 6:22 AM CHIEF CONSOLE OPERATOR this proced ure are in the results section. ALANINE AM 02/27/2021 Results for AMINOTRANSFERASE 6:22 AM CHIEF CONSOLE OPERATOR this proced ure are in the results section. MAGNESIUM LEVEL AM 02/27/2021 Results for 6:22 AM CHIEF CONSOLE OPERATOR this procedure are in the results section. CALCIUM LEVEL TOTAL AM 02/27/2021 Results for 6:22 AM CHIEF CONSOLE OPERATOR this procedure are in the results section. ALBUMIN LEVEL AM 02/27/2021 Results for 6:22 AM CHIEF CONSOLE OPERATOR this procedure are in the results section. FRACTIONATED BILIRUBIN AM 02/27/2021 Resul ts for 6:22 AM CHIEF CONSOLE OPERATOR this procedure are in the results section. PHOSPHORUS LEVEL AM 02/27/2021 Results for 6:22 AM CHIEF CONSOLE OPERATOR this procedure are in the results section. URIC ACID AM 02/27/2021 Results for 6:22 AM CHIEF CONSOLE OPERATOR this procedure are in the results section. LACTATE DEHYDROGENASE AM 02/27/2021 Result s for 6:22 AM CHIEF CONSOLE OPERATOR this procedure are in the results section. GLUCOSE, RANDOM AM 02/27/2021 Results for 6:22 AM CHIEF CONSOLE OPERATOR this procedure are in the results section. SERUM CREATININE AM 02/27/2021 6:22 AM CHIEF CONSOLE OPERATOR BLOOD UREA NITROGEN AM 02/27/2021 Results for 6:22 AM CHIEF CONSOLE OPERATOR this procedure are in the results section. CARBON DIOXIDE LEVEL AM 02/27/2021 Results for 6:22 AM CHIEF CONSOLE OPERATOR this procedure are in the results section. CHLORIDE LEVEL AM 02/27/2021 Results for 6:22 AM CHIEF CONSOLE OPERATOR this procedure are in the results section. POTASSIUM LEVEL AM 02/27/2021 Results for 6:22 AM CHIEF CONSOLE OPERATOR this procedure are in the results section. SODIUM LEVEL AM 02/27/2021 Results for 6:22 AM CHIEF CONSOLE OPERATOR this procedure are in the results section. COMPLETE BLOOD COUNT AM 02/27/2021 W/ DIFFERENTIAL 6:22 AM CHIEF CONSOLE OPERATOR TMP INTERPRETATION Routine 02/26/2021 Results f or ANTIBODY SCREEN 6:02 PM CHIEF CONSOLE OPERATOR this procedu re NEGATIVE are in the results section. CLOT EXPIRATION DATE Routine 02/26/2021 Results for 6:02 PM CHIEF CONSOLE OPERATOR this procedure are in the results section. ANTIBODY SCREEN Routine 02/26/2021 Results for 6:02 PM CHIEF CONSOLE OPERATOR this procedure are in the results section. ABORH Routine 02/26/2021 Results for 6:02 PM CHIEF CONSOLE OPERATOR this procedure are in the results section. CARDIAC PANEL Timed Study 02/26/2021 Results for 6:02 PM CHIEF CONSOLE OPERATOR this procedure are in the results section. TYPE AND SCREEN Routine 02/26/2021 6:02 PM CHIEF CONSOLE OPERATOR CARDIAC PANEL Timed Study 02/26/2021 Results for 12:01 PM CHIEF CONSOLE OPERATOR this procedure are in the results section. CARDIAC PANEL Timed Study 02/26/2021 Results for 6:36 AM CHIEF CONSOLE OPERATOR this procedure are in the results section. ANION GAP AM 02/26/2021 Results for 2:01 AM CHIEF CONSOLE OPERATOR this procedure are in the results section. .GLOMERULAR FILTRATION AM 02/26/2021 Resul ts for RATE 2:01 AM CHIEF CONSOLE OPERATOR this procedure are in the results section. SERUM CREATININE AM 02/26/2021 Results for 2:01 AM CHIEF CONSOLE OPERATOR this procedure are in the results section. MANUAL DIFFERENTIAL AM 02/26/2021 Results for 2:01 AM CHIEF CONSOLE OPERATOR this procedure are in the results section. Results CBC AM 02/26/2021 Results for 2:01 AM CHIEF CONSOLE OPERATOR this procedure are in the results section. ALKALINE PHOSPHATASE AM 02/26/2021 Results for 2:01 AM CHIEF CONSOLE OPERATOR this procedure are in the results section. ASPARTATE AM 02/26/2021 Results for AMINOTRANSFERASE 2:01 AM CHIEF CONSOLE OPERATOR this proced ure are in the results section. ALANINE AM 02/26/2021 Results for AMINOTRANSFERASE 2:01 AM CHIEF CONSOLE OPERATOR this proced ure are in the results section. MAGNESIUM LEVEL AM 02/26/2021 Results for 2:01 AM CHIEF CONSOLE OPERATOR this procedure are in the results section. CALCIUM LEVEL TOTAL AM 02/26/2021 Results for 2:01 AM CHIEF CONSOLE OPERATOR this procedure are in the results section. ALBUMIN LEVEL AM 02/26/2021 Results for 2:01 AM CHIEF CONSOLE OPERATOR this procedure are in the results section. FRACTIONATED BILIRUBIN AM 02/26/2021 Resul ts for 2:01 AM CHIEF CONSOLE OPERATOR this procedure are in the results section. PHOSPHORUS LEVEL AM 02/26/2021 Results for 2:01 AM CHIEF CONSOLE OPERATOR this procedure are in the results section. URIC ACID AM 02/26/2021 Results for 2:01 AM CHIEF CONSOLE OPERATOR this procedure are in the results section. LACTATE DEHYDROGENASE AM 02/26/2021 Result s for 2:01 AM CHIEF CONSOLE OPERATOR this procedure are in the results section. GLUCOSE, RANDOM AM 02/26/2021 Results for 2:01 AM CHIEF CONSOLE OPERATOR this procedure are in the results section. SERUM CREATININE AM 02/26/2021 2:01 AM CHIEF CONSOLE OPERATOR BLOOD UREA NITROGEN AM 02/26/2021 Results for 2:01 AM CHIEF CONSOLE OPERATOR this procedure are in the results section. CARBON DIOXIDE LEVEL AM 02/26/2021 Results for 2:01 AM CHIEF CONSOLE OPERATOR this procedure are in the results section. CHLORIDE LEVEL AM 02/26/2021 Results for 2:01 AM CHIEF CONSOLE OPERATOR this procedure are in the results section. POTASSIUM LEVEL AM 02/26/2021 Results for 2:01 AM CHIEF CONSOLE OPERATOR this procedure are in the results section. SODIUM LEVEL AM 02/26/2021 Results for 2:01 AM CHIEF CONSOLE OPERATOR this procedure are in the results section. COMPLETE BLOOD COUNT AM 02/26/2021 W/ DIFFERENTIAL 2:01 AM CHIEF CONSOLE OPERATOR TROPONIN T Routine 02/26/2021 Results for 2:01 AM CHIEF CONSOLE OPERATOR this procedure are in the results section. EKG, 12-LEAD STAT 02/26/2021 (PORTABLE) TROPONIN T Routine 02/25/2021 Results for 6:01 PM CHIEF CONSOLE OPERATOR this procedure are in the results section. TROPONIN T Routine 02/25/2021 Results for 12:21 PM CHIEF CONSOLE OPERATOR this procedure are in the results section. ANION GAP AM 02/25/2021 Results for 4:07 AM CHIEF CONSOLE OPERATOR this procedure are in the results section. .GLOMERULAR FILTRATION AM 02/25/2021 Resul ts for RATE 4:07 AM CHIEF CONSOLE OPERATOR this procedure are in the results section. SERUM CREATININE AM 02/25/2021 Results for 4:07 AM CHIEF CONSOLE OPERATOR this procedure are in the results section. MANUAL DIFFERENTIAL AM 02/25/2021 Results for 4:07 AM CHIEF CONSOLE OPERATOR this procedure are in the results section. Results CBC AM 02/25/2021 Results for 4:07 AM CHIEF CONSOLE OPERATOR this procedure are in the results section. CARDIAC PANEL Timed Study 02/25/2021 Results for 4:07 AM CHIEF CONSOLE OPERATOR this procedure are in the results section. ALKALINE PHOSPHATASE AM 02/25/2021 Results for 4:07 AM CHIEF CONSOLE OPERATOR this procedure are in the results section. ASPARTATE AM 02/25/2021 Results for AMINOTRANSFERASE 4:07 AM CHIEF CONSOLE OPERATOR this proced ure are in the results section. ALANINE AM 02/25/2021 Results for AMINOTRANSFERASE 4:07 AM CHIEF CONSOLE OPERATOR this proced ure are in the results section. MAGNESIUM LEVEL AM 02/25/2021 Results for 4:07 AM CHIEF CONSOLE OPERATOR this procedure are in the results section. CALCIUM LEVEL TOTAL AM 02/25/2021 Results for 4:07 AM CHIEF CONSOLE OPERATOR this procedure are in the results section. ALBUMIN LEVEL AM 02/25/2021 Results for 4:07 AM CHIEF CONSOLE OPERATOR this procedure are in the results section. FRACTIONATED BILIRUBIN AM 02/25/2021 Resul ts for 4:07 AM CHIEF CONSOLE OPERATOR this procedure are in the results section. PHOSPHORUS LEVEL AM 02/25/2021 Results for 4:07 AM CHIEF CONSOLE OPERATOR this procedure are in the results section. URIC ACID AM 02/25/2021 Results for 4:07 AM CHIEF CONSOLE OPERATOR this procedure are in the results section. LACTATE DEHYDROGENASE AM 02/25/2021 Result s for 4:07 AM CHIEF CONSOLE OPERATOR this procedure are in the results section. GLUCOSE, RANDOM AM 02/25/2021 Results for 4:07 AM CHIEF CONSOLE OPERATOR this procedure are in the results section. SERUM CREATININE AM 02/25/2021 4:07 AM CHIEF CONSOLE OPERATOR BLOOD UREA NITROGEN AM 02/25/2021 Results for 4:07 AM CHIEF CONSOLE OPERATOR this procedure are in the results section. CARBON DIOXIDE LEVEL AM 02/25/2021 Results for 4:07 AM CHIEF CONSOLE OPERATOR this procedure are in the results section. CHLORIDE LEVEL AM 02/25/2021 Results for 4:07 AM CHIEF CONSOLE OPERATOR this procedure are in the results section. POTASSIUM LEVEL AM 02/25/2021 Results for 4:07 AM CHIEF CONSOLE OPERATOR this procedure are in the results section. SODIUM LEVEL AM 02/25/2021 Results for 4:07 AM CHIEF CONSOLE OPERATOR this procedure are in the results section. COMPLETE BLOOD COUNT AM 02/25/2021 W/ DIFFERENTIAL 4:07 AM CHIEF CONSOLE OPERATOR CARDIAC PANEL Timed Study 02/24/2021 Results for 10:48 PM CHIEF CONSOLE OPERATOR this procedure are in the results section. TROPONIN T Routine 02/24/2021 Results for 10:48 PM CHIEF CONSOLE OPERATOR this procedure are in the results section. URINALYSIS MICROSCOPIC Routine 02/24/2021 Resul ts for 5:51 PM CHIEF CONSOLE OPERATOR this procedure are in the results section. URINALYSIS WITH Now 02/24/2021 Results for MICROSCOPIC IF 5:51 PM CHIEF CONSOLE OPERATOR this procedur e INDICATED are in the results section. URINE CULTURE Now 02/24/2021 Results for 5:51 PM CHIEF CONSOLE OPERATOR this procedure are in the results section. LIPID PANEL Routine 02/24/2021 Results for 4:13 PM CHIEF CONSOLE OPERATOR this procedure are in the results section. NT PRO BNP Routine 02/24/2021 Results for 4:13 PM CHIEF CONSOLE OPERATOR this procedure are in the results section. CARDIAC PANEL Timed Study 02/24/2021 Results for 4:13 PM CHIEF CONSOLE OPERATOR this procedure are in the results section. HEMOGLOBIN A1C Routine 02/24/2021 Results for 2:32 PM CHIEF CONSOLE OPERATOR this procedure are in the results section. ECHOCARDIOGRAM 2D STAT 02/24/2021 Results fo r COMPLETE W CONTRAST 10:00 AM CHIEF CONSOLE OPERATOR this pro cedure are in the results section. PETCT WB INITIAL Routine 02/24/2021 Results for TREATMENT STRATEGY 7:42 AM CHIEF CONSOLE OPERATOR this proc edure are in the results section. ANION GAP AM 02/24/2021 Results for 3:45 AM CHIEF CONSOLE OPERATOR this procedure are in the results section. .GLOMERULAR FILTRATION AM 02/24/2021 Resul ts for RATE 3:45 AM CHIEF CONSOLE OPERATOR this procedure are in the results section. SERUM CREATININE AM 02/24/2021 Results for 3:45 AM CHIEF CONSOLE OPERATOR this procedure are in the results section. MANUAL DIFFERENTIAL AM 02/24/2021 Results for 3:45 AM CHIEF CONSOLE OPERATOR this procedure are in the results section. Results CBC AM 02/24/2021 Results for 3:45 AM CHIEF CONSOLE OPERATOR this procedure are in the results section. ALKALINE PHOSPHATASE AM 02/24/2021 Results for 3:45 AM CHIEF CONSOLE OPERATOR this procedure are in the results section. ASPARTATE AM 02/24/2021 Results for AMINOTRANSFERASE 3:45 AM CHIEF CONSOLE OPERATOR this proced ure are in the results section. ALANINE AM 02/24/2021 Results for AMINOTRANSFERASE 3:45 AM CHIEF CONSOLE OPERATOR this proced ure are in the results section. MAGNESIUM LEVEL AM 02/24/2021 Results for 3:45 AM CHIEF CONSOLE OPERATOR this procedure are in the results section. CALCIUM LEVEL TOTAL AM 02/24/2021 Results for 3:45 AM CHIEF CONSOLE OPERATOR this procedure are in the results section. ALBUMIN LEVEL AM 02/24/2021 Results for 3:45 AM CHIEF CONSOLE OPERATOR this procedure are in the results section. FRACTIONATED BILIRUBIN AM 02/24/2021 Resul ts for 3:45 AM CHIEF CONSOLE OPERATOR this procedure are in the results section. PHOSPHORUS LEVEL AM 02/24/2021 Results for 3:45 AM CHIEF CONSOLE OPERATOR this procedure are in the results section. URIC ACID AM 02/24/2021 Results for 3:45 AM CHIEF CONSOLE OPERATOR this procedure are in the results section. LACTATE DEHYDROGENASE AM 02/24/2021 Result s for 3:45 AM CHIEF CONSOLE OPERATOR this procedure are in the results section. GLUCOSE, RANDOM AM 02/24/2021 Results for 3:45 AM CHIEF CONSOLE OPERATOR this procedure are in the results section. SERUM CREATININE AM 02/24/2021 3:45 AM CHIEF CONSOLE OPERATOR BLOOD UREA NITROGEN AM 02/24/2021 Results for 3:45 AM CHIEF CONSOLE OPERATOR this procedure are in the results section. CARBON DIOXIDE LEVEL AM 02/24/2021 Results for 3:45 AM CHIEF CONSOLE OPERATOR this procedure are in the results section. CHLORIDE LEVEL AM 02/24/2021 Results for 3:45 AM CHIEF CONSOLE OPERATOR this procedure are in the results section. POTASSIUM LEVEL AM 02/24/2021 Results for 3:45 AM CHIEF CONSOLE OPERATOR this procedure are in the results section. SODIUM LEVEL AM 02/24/2021 Results for 3:45 AM CHIEF CONSOLE OPERATOR this procedure are in the results section. COMPLETE BLOOD COUNT AM 02/24/2021 W/ DIFFERENTIAL 3:45 AM CHIEF CONSOLE OPERATOR EKG, 12-LEAD STAT 02/24/2021 (PORTABLE) EKG, 12-LEAD Routine 02/24/2021 (PORTABLE) EKG, 12-LEAD Routine 02/24/2021 (PORTABLE) TMP RPR PATH INTERP Routine 02/23/2021 Results for 5:20 PM CHIEF CONSOLE OPERATOR this procedure are in the results section. TMP HCVAB INTERP Routine 02/23/2021 Results for 5:20 PM CHIEF CONSOLE OPERATOR this procedure are in the results section. TMP HIV 1/2 AG&AB PATH Routine 02/23/2021 Resul ts for INTERP 5:20 PM CHIEF CONSOLE OPERATOR this procedure are in the results section. TMP INTERPRETATION Routine 02/23/2021 Results f or ANTIBODY SCREEN 5:20 PM CHIEF CONSOLE OPERATOR this procedu re NEGATIVE are in the results section. CLOT EXPIRATION DATE Routine 02/23/2021 Results for 5:20 PM CHIEF CONSOLE OPERATOR this procedure are in the results section. TMP INTERPRETATION Routine 02/23/2021 Results f or DIRECT ANTIGLOBULIN 5:20 PM CHIEF CONSOLE OPERATOR this pro cedure TEST are in the results section. BLOOD UREA NITROGEN Routine 02/23/2021 Results for 5:20 PM CHIEF CONSOLE OPERATOR this procedure are in the results section. RAPID PLASMA REAGIN Now 02/23/2021 Results for (RPR) 5:20 PM CHIEF CONSOLE OPERATOR this procedure are in the results section. HIV-1/2 ANTIGEN AND Now 02/23/2021 Results for ANTIBODIES, FOURTH 5:20 PM CHIEF CONSOLE OPERATOR this proc edure GENERATION are in the results section. HEPATITIS C VIRUS Now 02/23/2021 Results fo r ANTIBODY 5:20 PM CHIEF CONSOLE OPERATOR this procedure are in the results section. HIV-1 DNA AND RNA QUAL Now 02/23/2021 Resul ts for PCR 5:20 PM CHIEF CONSOLE OPERATOR this procedure are in the results section. HTLV I/II AB SCREEN Now 02/23/2021 Results for WITH CONFIRM 5:20 PM CHIEF CONSOLE OPERATOR this procedure are in the results section. HEPATITIS B SURFACE AG Now 02/23/2021 Resul ts for W/CONFIRM 5:20 PM CHIEF CONSOLE OPERATOR this procedure are in the results section. HEPATITIS B CORE TOTAL Now 02/23/2021 Resul ts for ANTIBODY 5:20 PM CHIEF CONSOLE OPERATOR this procedure are in the results section. PROTHROMBIN TIME Routine 02/23/2021 Results for 5:20 PM CHIEF CONSOLE OPERATOR this procedure are in the results section. LIPID PANEL Routine 02/23/2021 Results for 5:20 PM CHIEF CONSOLE OPERATOR this procedure are in the results section. HEMOGLOBIN A1C Routine 02/23/2021 Results for 5:20 PM CHIEF CONSOLE OPERATOR this procedure are in the results section. .GLOMERULAR FILTRATION Routine 02/23/2021 Resul ts for RATE 5:20 PM CHIEF CONSOLE OPERATOR this procedure are in the results section. SERUM CREATININE Routine 02/23/2021 Results for 5:20 PM CHIEF CONSOLE OPERATOR this procedure are in the results section. HTLV I+II ANTIBODY Routine 02/23/2021 Results f or 5:20 PM CHIEF CONSOLE OPERATOR this procedure are in the results section. HEPATITIS B SURFACE Routine 02/23/2021 Results for ANTIGEN, SERUM 5:20 PM CHIEF CONSOLE OPERATOR this procedur e are in the results section. HEPATITIS B CORE Routine 02/23/2021 Results for ANTIBODY 5:20 PM CHIEF CONSOLE OPERATOR this procedure are in the results section. DIRECT ANTIGLOBULIN Now 02/23/2021 Results for TEST 5:20 PM CHIEF CONSOLE OPERATOR this procedure are in the results section. VITAMIN D 25 HYDROXY Routine 02/23/2021 Results for LEVEL 5:20 PM CHIEF CONSOLE OPERATOR this procedure are in the results section. BETA 2 MICROGLOBULIN Routine 02/23/2021 Results for 5:20 PM CHIEF CONSOLE OPERATOR this procedure are in the results section. THYROID STIMULATING Routine 02/23/2021 Results for HORMONE 5:20 PM CHIEF CONSOLE OPERATOR this procedure are in the results section. THYROXINE Routine 02/23/2021 Results for 5:20 PM CHIEF CONSOLE OPERATOR this procedure are in the results section. IMMUNOGLOBULIN G SERUM Routine 02/23/2021 Resul ts for 5:20 PM CHIEF CONSOLE OPERATOR this procedure are in the results section. IMMUNOGLOBULIN M SERUM Routine 02/23/2021 Resul ts for 5:20 PM CHIEF CONSOLE OPERATOR this procedure are in the results section. IMMUNOGLOBULIN A SERUM Routine 02/23/2021 Resul ts for 5:20 PM CHIEF CONSOLE OPERATOR this procedure are in the results section. GLUCOSE, RANDOM Routine 02/23/2021 Results for 5:20 PM CHIEF CONSOLE OPERATOR this procedure are in the results section. PHOSPHORUS LEVEL Routine 02/23/2021 Results for 5:20 PM CHIEF CONSOLE OPERATOR this procedure are in the results section. CALCIUM LEVEL TOTAL Routine 02/23/2021 Results for 5:20 PM CHIEF CONSOLE OPERATOR this procedure are in the results section. ALBUMIN LEVEL Routine 02/23/2021 Results for 5:20 PM CHIEF CONSOLE OPERATOR this procedure are in the results section. TOTAL PROTEIN Routine 02/23/2021 Results for 5:20 PM CHIEF CONSOLE OPERATOR this procedure are in the results section. MAGNESIUM LEVEL Routine 02/23/2021 Results for 5:20 PM CHIEF CONSOLE OPERATOR this procedure are in the results section. ELECTROLYTE PANEL Routine 02/23/2021 Results fo r 5:20 PM CHIEF CONSOLE OPERATOR this procedure are in the results section. ASPARTATE Routine 02/23/2021 Results for AMINOTRANSFERASE 5:20 PM CHIEF CONSOLE OPERATOR this proced ure are in the results section. ALANINE Routine 02/23/2021 Results for AMINOTRANSFERASE 5:20 PM CHIEF CONSOLE OPERATOR this proced ure are in the results section. LACTATE DEHYDROGENASE Routine 02/23/2021 Result s for 5:20 PM CHIEF CONSOLE OPERATOR this procedure are in the results section. ALKALINE PHOSPHATASE Routine 02/23/2021 Results for 5:20 PM CHIEF CONSOLE OPERATOR this procedure are in the results section. FRACTIONATED BILIRUBIN Routine 02/23/2021 Resul ts for 5:20 PM CHIEF CONSOLE OPERATOR this procedure are in the results section. URIC ACID Routine 02/23/2021 Results for 5:20 PM CHIEF CONSOLE OPERATOR this procedure are in the results section. CYTOKINE PANEL Routine 02/23/2021 Results for 5:20 PM CHIEF CONSOLE OPERATOR this procedure are in the results section. SERUM CREATININE Routine 02/23/2021 5:20 PM CHIEF CONSOLE OPERATOR MANUAL DIFFERENTIAL Routine 02/23/2021 Results for 5:20 PM CHIEF CONSOLE OPERATOR this procedure are in the results section. Results CBC Routine 02/23/2021 Results for 5:20 PM CHIEF CONSOLE OPERATOR this procedure are in the results section. ANTIBODY SCREEN Routine 02/23/2021 Results for 5:20 PM CHIEF CONSOLE OPERATOR this procedure are in the results section. ABORH Routine 02/23/2021 Results for 5:20 PM CHIEF CONSOLE OPERATOR this procedure are in the results section. COMPLETE BLOOD COUNT Routine 02/23/2021 W/ DIFFERENTIAL 5:20 PM CHIEF CONSOLE OPERATOR TYPE AND SCREEN Routine 02/23/2021 5:20 PM CHIEF CONSOLE OPERATOR CMV ANTIBODY IGG AND Routine 02/23/2021 Results for IGM PATH REVIEW 5:20 PM CHIEF CONSOLE OPERATOR this procedu re are in the results section. CMV ANTIBODY IGG AND Now 02/23/2021 Results for IGM 5:20 PM CHIEF CONSOLE OPERATOR this procedure are in the results section. INFECTIOUS DISEASE Now 02/23/2021 GROUPING 5:20 PM CHIEF CONSOLE OPERATOR COVID-19 (SARS-COV-2) Now 02/23/2021 Result s for ASYMPTOMATIC-LT 4:29 PM CHIEF CONSOLE OPERATOR this procedu re are in the results section. PATHOLOGY OUTSIDE Routine 02/04/2021 Results fo r INTERPRETATION this procedur e are in the results section. after 04/13/2020 Results Glucose, Random (03/24/2021 4:34 AM CHIEF CONSOLE OPERATOR)Only the most recent of30 resultswithin the time period is included. Glucose Random 95 70 - 199 mg/dL [facility] Comment: [facility]ER CENTER Effective 09/22/15, the gluco se reference intervals have been updated based on [place] Diabetes [employer] guidelines (Standards of Medical Care in Diabetes 2016. Diabetes Care 2016; 39: S13-S22). Fasting blood glucose: Normal: 70-99 mg/dL Impaired fasting glucose (in creased risk for diabetes or pre-diabetes): 100- 125 mg/dL Diabetes mellitus: >/=126 mg/dL Random blood glucose: Normal: 70-199 mg/dL Note: Random glucose >100 mg/dL is assoc iated with increased risk for diabetes Specimen Blood Performing Organization Address City/[facility] Phon e Number [facility] Unless otherwise noted, [address] all lab tests performed by: Division of Pathology and Laboratory Medicine [address] [place] [address] Anion Gap (03/24/2021 4:34 AM CHIEF CONSOLE OPERATOR)Only the most recent of29 resultswithin the time period is included. Pathologist Sig nature Anion Gap 10 4 - 14 mEq/L [facility] Specimen Blood Performing Organization Address City/[facility] Phon e Number [facility] CANCER Unless otherwise noted, [address] all lab tests performed by: Division of Pathology and Laboratory Medicine [address] [place] (ABNORMAL) .Serum Creatinine (03/24/2021 4:34 AM CHIEF CONSOLE OPERATOR)Only the most recent of30 resultswithin the time period is included. Pathologist Sig nature Creatinine 0.60 (L) 0.67 - 1.17 mg/dL [facility] Specimen Blood Performing Organization Address [facility] Phon e Number [facility] CANCER Unless otherwise noted, [address] all lab tests performed by: Division of Pathology and Laboratory Medicine [facility] [place] (ABNORMAL) .CBC (03/24/2021 4:34 AM CHIEF CONSOLE OPERATOR)Only the most recent of31 resultswithin the time period is included. [facility] WBC 2.6 (L) 4.0 - 11.0 [facility] K/uL [facility] RBC 2.95 (L) 4.50 - 6.00 [facility] M/uL [facility] Hgb 8.1 (L) 14.0 - 18.0 [facility] gm/dL [facility] Hct 26.0 (L) 40.0 - 54.0 % [facility] MCV 88 82 - 98 fL [facility] MCH 27.5 27.0 - 31.0 pg [facility] MCHC 31.2 31.0 - 36.0 [facility] gm/dL [facility] RDW-SD 50.9 (H) 35.1 - 46.3 fL [facility] RDW-CV 15.9 (H) 12.0 - 15.5 % [facility] Platelet count 94 (L) 140 - 440 K/uL [facility] MPV 11.7 (H) 4.0 - 10.4 fL [facility] INRBC 0.0 <=0.0 % [facility] Comment: [facility] CENTER The INRBC (instrument NRBC) value reflects the enumera tion of nucleated red blood cells contained in a 200uL samp le of whole blood analyzed by the instrument. This value may differ from the NRBC value reported in a manual differ ential, which is based on a 100 cell differential. Specimen Blood Performing Organization Address City/State/ZIP Code Phon e Number [facility] CANCER Unless otherwise noted, [address] all lab tests performed by: Division of Pathology and Laboratory Medicine [address] [facility] Glomerular Filtration Rate (03/24/2021 4:34 AM CHIEF CONSOLE OPERATOR)Only the most recent of30 resultswithin the time period is included. Pathologist [facility] eGFR-AA 105 >=60 [facility] Comment: mL/min/1.73 [facility] Normal eGFR: >= 60 mL/min/1.73 m2 [...] 5 Kidney failure <15 eGFR-YSABEL 90 >=60 [facility] Comment: mL/min/1.73 [facility] CENTER Normal [...] Organization Address City/State/ZIP Code Phon e Number [facility] CANCER Unless otherwise noted, [place] [address] [place] all lab tests performed by: Division of Pathology and Laboratory Medicine [facility]5 [facility] Fractionated Bilirubin (03/24/2021 4:34 AM CHIEF CONSOLE OPERATOR)Only the most recent of30 resultswithin the time period is included. Bili Total 0.6 <=1.2 mg/dL [facility] Comment: CANCER CENTER Indocyanine Green (ICG) may cause falsely elevated bilirubin results. Total and direct bilirubin must not be measured from samples containing indocyanine green. False elevation of total petrona irubin can be seen in patients with IgG concentrations above 28 g/L. Bili Direct 0.2Comment: <=0.3 mg/dL [facility] Indocyanine Green [facility] (ICG) may cause falsely elevated bilirubin results. Total and direct bilirubin must not be measured from samples containing indocyanine green. Bili Indirect 0.4 0.0 - 0.9 [facility] mg/dL [facility] Specimen Blood Performing Organization Address City/[facility] Phon e Number [facility] CANCER Unless otherwise noted, [address] all lab tests performed by: Division of Pathology and Laboratory Medicine [facility] (ABNORMAL) Differential (03/24/2021 4:34 AM CHIEF CONSOLE OPERATOR)Only the most recent of30 resultswithin the time period is included. Neutrophil % 64.2 42.0 - 66.0 % [facility] Lymphocyte % 19.8 (L) 24.0 - 44.0 % [facility] Monocyte % 12.5 (H) 2.0 - 7.0 % [facility] Eosinophil % 2.7 1.0 - 4.0 % [facility] Basophil % 0.4 0.0 - 1.0 % [facility] IGRE % 0.4Comment: IGRE % 0.0 - 0.4 % [facility] count includes [facility] Metamyelocytes, Myelocytes, and Promyelocytes. Neutrophil Abs 1.69 (L) 1.70 - 7.30 [facility] Lymphocyte Abs 0.52 (L) 1.00 - 4.80 [facility] Monocyte Abs 0.33 0.08 - 0.70 [facility] Eosinophil Abs 0.07 0.04 - 0.40 [facility] Basophil Abs 0.01 0.00 - 0.10 [facility] IG Abs 0.01 0.00 - 0.04 [facility] Specimen Blood Performing Organization Address City/[facility] Phon e Number [facility] CANCER Unless otherwise noted, [address] all lab tests performed by: Division of Pathology and Laboratory Medicine [address] [place] [address] [place] (ABNORMAL) Uric Acid (03/24/2021 4:34 AM CHIEF CONSOLE OPERATOR)Only the most recent of30 results within the time period is included. Pathologist Sig nature Uric Acid 2.6 (L) 3.4 - 7.0 mg/dL [facility] TER Specimen Blood Performing Organization Address [facility] e Number [facility] Unless otherwise noted, [address] all lab tests performed by: Division of Pathology and Laboratory Medicine [address] BUN (03/24/2021 4:34 AM CHIEF CONSOLE OPERATOR)Only the most recent of30 resultswithin the time period is included. Pathologist Sig nature BUN 6 6 - 23 mg/dL [facility] Specimen Blood Performing Organization Address [facility] e Number [facility] Unless otherwise noted, [address] all lab tests performed by: Division of Pathology and Laboratory Medicine [address] Alanine Aminotransferase (03/24/2021 4:34 AM CHIEF CONSOLE OPERATOR)Only the most recent of30 resultswithin the time period is included. Pathologist Sig nature ALT 5 <=41 U/L [facility] Specimen Blood Performing Organization Address [facility] e Number [facility] Unless otherwise noted, [address] all lab tests performed by: Division of Pathology and Laboratory Medicine [address] Aspartate Aminotransferase (03/24/2021 4:34 AM CHIEF CONSOLE OPERATOR)Only the most recent of30 resultswithin the time period is included. Pathologist Sig nature AST 23 <=40 U/L [facility] Specimen Blood Performing Organization Address [facility] e Number [facility] Unless otherwise noted, [address] all lab tests performed by: Division of Pathology and Laboratory Medicine [address] Sodium Level (03/24/2021 4:34 AM CHIEF CONSOLE OPERATOR)Only the most recent of29 resultswithin the time period is included. Pathologist Sig nature Sodium Lvl 138 136 - 145 mEq/L [facility] TER Specimen Blood Performing Organization Address [facility] e Number [facility] Unless otherwise noted, [address] all lab tests performed by: Division of Pathology and Laboratory Medicine [address] Potassium (03/24/2021 4:34 AM CHIEF CONSOLE OPERATOR)Only the most recent of30 resultswithin the time period is included. Pathologist Sig nature Potassium Lvl 3.8 3.5 - 5.1 mEq/L [facility] Specimen Blood Performing Organization Address [facility] CANCER Unless otherwise noted, [address] all lab tests performed by: Division of Pathology and Laboratory Medicine [address] Phosphorus Level (03/24/2021 4:34 AM CHIEF CONSOLE OPERATOR)Only the most recent of30 results within the time period is included. Pathologist Sig nature Phosphorus 3.0 2.5 - 4.5 mg/dL [facility] TER Specimen Blood Performing Organization Address [facility] Unless otherwise noted, [address] all lab tests performed by: Division of Pathology and Laboratory Medicine [address] Alkaline Phosphatase (03/24/2021 4:34 AM CHIEF CONSOLE OPERATOR)Only the most recent of30 results within the time period is included. Pathologist Sig nature Alk Phos 96 40 - 129 U/L [facility] Specimen Blood Performing Organization Address [facility] CANCER Unless otherwise noted, [address] all lab tests performed by: Division of Pathology and Laboratory Medicine [address] Magnesium Level (03/24/2021 4:34 AM CHIEF CONSOLE OPERATOR)Only the most recent of30 resultswithin the time period is included. Pathologist Sig nature Magnesium 1.9 1.6 - 2.6 mg/dL [facility] TER Specimen Blood Performing Organization Address [facility] CANCER Unless otherwise noted, [address] all lab tests performed by: Division of Pathology and Laboratory Medicine [address] (ABNORMAL) LDH (03/24/2021 4:34 AM CHIEF CONSOLE OPERATOR)Only the most recent of30 resultswithin the time period is included. LDH 444 (H)Comment: 135 - 225 U/L [facility] Results greater than [facility] 1651 U/L may not be reliable due to matrix effect with extended dilution as it exceeds the mate fishing vessel s recommended limit. Caution should be exercised when interpreting such values and done in conjunction with clinical context. Specimen Blood Performing Organization Address [facility] Phon e Number [facility] Unless otherwise noted, [address] all lab tests performed by: Division of Pathology and Laboratory Medicine [address] Chloride Level (03/24/2021 4:34 AM CHIEF CONSOLE OPERATOR)Only the most recent of29 resultswithin the time period is included. Pathologist Sig nature Chloride 103 98 - 107 mEq/L [facility] ER Specimen Blood Performing Organization Address [facility] Phon e Number [facility] Unless otherwise noted, [address] all lab tests performed by: Division of Pathology and Laboratory Medicine [address] Carbon Dioxide Level (03/24/2021 4:34 AM CHIEF CONSOLE OPERATOR)Only the most recent of29 results within the time period is included. Pathologist Sig nature CO2 25 22 - 29 mEq/L [facility] Specimen Blood Performing Organization Address [facility] Phon e Number [facility] Unless otherwise noted, [address] all lab tests performed by: Division of Pathology and Laboratory Medicine [address] Calcium Level (03/24/2021 4:34 AM CHIEF CONSOLE OPERATOR)Only the most recent of30 resultswithin the time period is included. Pathologist Sig nature Calcium Lvl 8.8 8.4 - 10.2 mg/dL [facility] CE NTER Specimen Blood Performing Organization Address [facility] Phon e Number [facility] Unless otherwise noted, [address] all lab tests performed by: Division of Pathology and Laboratory Medicine [address] (ABNORMAL) Albumin Level (03/24/2021 4:34 AM CHIEF CONSOLE OPERATOR)Only the most recent of30 resultswithin the time period is included. Pathologist Sig nature Albumin Lvl 2.7 (L) 3.5 - 5.2 gm/dL [facility] Specimen Blood Performing Organization Address [facility] Phon e Number [facility] Unless otherwise noted, [address] all lab tests performed by: Division of Pathology and Laboratory Medicine [address] COVID-19 (SARS-CoV-2) PCR-Asymptomatic (03/23/2021 4:42 PM CHIEF CONSOLE OPERATOR)Only the most recent of4 resultswithin the time period is included. COVID19 (SARS Not Detected Not Detected [facility] CoV-2) Result Comment: [facility]ER CENTER This test is a qualitative r everse-transcriptase polymerase chain reaction (RT- PCR) developed for the [employer] system and intended for qualitative detection of SARS CoV-2 RNA in nasopharyngeal a nd oropharyngeal swab specimens collected from any individuals, including those suspected of COVID-19 by their healthcare provider, and those without symptoms or other reasons to suspect COVID-19. A fact sheet for patients provided by the mate [employer] ( [employer]) can be reviewed at: https://www.fda.gov/media/13 6023/download. A fact sheet for Health Care providers is provided by the mate [employer] ([employer] and can be reviewed at: https://www.fda.gov/media/213750/download Results must be interpreted within the context [...] were verified by the Microbiology Laboratory at [facility], CLIA Accreditation #: [id number] and CAP Accreditation #: [id number]. COVID19 SARS DRIER ATTENDANT Swab [facility] COVID19 SARS Inpatient Admission [facility] Specimen Nasopharyngeal Swab Narrative [facility] - 2 1:20 AM CHIEF CONSOLE OPERATOR Nosocomial weekly swab per ID Performing Organization Address City/[facility] Phon e Number [facility] Unless otherwise noted, [address] all lab tests performed by: Division of Pathology and Laboratory Medicine [address] [place] [address] [place] Clot Expiration Date (03/22/2021 4:30 AM CHIEF CONSOLE OPERATOR)Only the most recent of10 results within the time period is included. Pathologist Sig nature T & S Expiration 03/25/2021 [facility] Specimen Blood Performing Organization Address [facility] Phon e Number [facility] Unless otherwise noted, [address] all lab tests performed by: Division of Pathology and Laboratory Medicine [facility] Yamini [place] [facility] TMP Interpretation Antibody Screen Negative (03/22/2021 4:30 AM CHIEF CONSOLE OPERATOR)Only the most recent of10 resultswithin the time period is included. TMP Auto Neg ABSC At the present time, patien t plasma shows no evidence of RBC alloantibodies. [facility] Interp Comment: [facility] [place] MD Rip DA SILVA [id number] Dictated by: MD Rip DA SILVA [id number] Dictated Date/Time: 03.22.19 9:18 AM CHIEF CONSOLE OPERATOR Transcribed Date/Time: 03.22.2021 9:18 AM CHIEF CONSOLE OPERATOR Electronically Signed By: JAIMIE NOVA MD - [id number] on 03.22.2021 9:18 AM C Specimen Blood Performing Organization Address City/[facility] Phon e Number [facility] Unless otherwise noted, [address] all lab tests performed by: Division of Pathology and Laboratory Medicine [address] [place], [place] [address]d ABORh (03/22/2021 4:30 AM CHIEF CONSOLE OPERATOR)Only the most recent of10 resultswithin the time period is included. Pathologist Sig nature ABORh. B POS [facility] Specimen Blood Performing Organization Address City/[facility]/ZIP Code Phon e Number [facility] Unless otherwise noted, [address] all lab tests performed by: Division of Pathology and Laboratory Medicine [address] [place] [address] Antibody Screen (03/22/2021 4:30 AM CHIEF CONSOLE OPERATOR)Only the most recent of10 resultswithin the time period is included. Pathologist Sig nature ABSC. Negative ABSC [facility] Specimen Blood Performing Organization Address [facility] Phon e Number [facility] Unless otherwise noted, [address] all lab tests performed by: Division of Pathology and Laboratory Medicine [address] [place] [address] (ABNORMAL) Urinalysis with Microscopic (03/12/2021 8:28 AM CHIEF CONSOLE OPERATOR)Only the most recent of2 resultswithin the time period is included. Pathologist Sig nature UA WBC 15 (H) 0 - 2 /HPF [facility] UA RBC 14 (H) 0 - 2 /HPF [facility] UA Mucous 2+ (A) Not Seen-Trace [facility] UA Bacteria NOT SEEN NOT SEEN /HPF [facility] UA Squam Epi NOT SEEN None-Occasional [facility] UA Amorph Jazzy OCC (A) NOT SEEN /HPF [facility] Specimen Urine Narrative [facility] - 2 8:57 AM CHIEF CONSOLE OPERATOR Some reporting parameters within the Urinalysis test have changed due to the implementation of new in strumentation in the [facility], allowi ng greater sensitivity of measurement. Urinalysis results reported by the [facility] using existing instrumentation, as well as Urinalysis t esting performed manually or by backup methodology at the [facility] will remain relatively unchanged. New reporting parameters and units will now be reported for all campuses. Performing Organization Address City/[facility]/ZIP Code Phon e Number [facility] Unless otherwise noted, [address] all lab tests performed by: Division of Pathology and Laboratory Medicine [address] [facility] (ABNORMAL) Urinalysis w/Microscopic if Indicated (03/12/2021 8:28 AM CHIEF CONSOLE OPERATOR)Only the most recent of3 resultswithin the time period is included. Pathologist Sig nature UA Color Janae (A) Straw-Yellow [facility] UA Appear Cloudy (A) Clear [facility] UA Glucose NEG NEG mg/dL [facility] UA Bili NEG NEG [facility] UA Ketones 20 (A) NEG mg/dL [facility] UA Spec Grav 1.025 1.003 - 1.035 [facility] UA Blood Small (A) NEG [facility] UA pH 6.0 5.0 - 9.0 [facility] UA Protein 100 (A) NEG mg/dL [facility] UA Urobilinogen POS (A) NEG [facility] UA Nitrite NEG NEG [facility] UA Leuk Est NEG NEG [facility] Specimen Urine Performing Organization Address City/[facility]/ZIP Code Phon e Number [facility] CANCER Unless otherwise noted, [address] all lab tests performed by: Division of Pathology and Laboratory Medicine [address] [facility] Urine Culture (03/12/2021 8:28 AM CHIEF CONSOLE OPERATOR)Only the most recent of3 resultswithin the time period is included. Final Report No growth [facility] Path Review - The results have been review ed and electronically signed by Pathologist: [facility] Urine ROSHAN DRISCOLL MD #[id number] [facility]ENTE R Specimen Urine, Catherized [place] Performing Organization Address City/[facility] Phon e Number [facility] CANCER Unless otherwise noted, [address] all lab tests performed by: Division of Pathology and Laboratory Medicine [address] Head without Contrast (03/11/2021 11:18 PM CHIEF CONSOLE OPERATOR) Specimen Impressions [id number] - 03/11/2021 11:32 PM CHIEF CONSOLE OPERATOR No acute intracranial process. I personally reviewed these image(s) jacqueline julio with the resident's/fellow's interpretations, certify that if a procedure was performed I was physically present, and agree with the final report. Narrative [id number] - 03/11/2021 11:32 PM CHIEF CONSOLE OPERATOR FULL RESULT: Examination: CT HEAD WO CONTRAST [...] Organization Address City/State/ZIP Code Phon e Number [id number] POC Critical (03/11/2021 10:28 PM CHIEF CONSOLE OPERATOR) Pathologist Sig nature POC Critical Comment See NoteComment: POC TEL[facility] Test performer notified Ordering Licensed Provider and /or designee of POC AB pO2 critical Results. Specimen Blood Performing Organization Address City/State/ZIP Code Phon e Number POC [facility] (ABNORMAL) POC ABG (03/11/2021 10:28 PM CHIEF CONSOLE OPERATOR) POC AB pH 7.52 (H) 7.35 - [...] Clean Dev Yes POC [facility], [address] [place] [address]; Rivet Hammer Machine Operator: Prerna Bedoya MD Specimen Blood Performing Organization Address [facility] Phon e Number POC TELCOR POC Glucose Screen (03/11/2021 9:55 PM CHIEF CONSOLE OPERATOR) POC Glucose 92 70 - 99 mg/dL [...] Sample Type Capillary POC [facility], [address] [place] [address]; Rivet Hammer Machine Operator: Prerna Bedoya MD Specimen Blood Performing Organization Address [facility] Phon e Number POC TELCOR FC Lymphoma B K/L Interpretation and Report (03/03/2021 5:14 PM CHIEF CONSOLE OPERATOR)Only the most recent of2 resultswithin the time period is included. Specimen Narrative This result has an attachment that is no t available. Flow Cytometry Specimen Collection -CSF (03/03/2021 5:14 PM CHIEF CONSOLE OPERATOR)Only the most recent of2 resultswithin the time period is included. Flow Cytometry Yes [facility] (Received) Comment: [facility] CENTER Test performed by: [facility] Flow Cytometry Laboratory [address] [place] [address] Imani Ap Link [id number] [facility] Specimen CSF Performing Organization Address City/State/ZIP Code Phon e Number [facility] CANCER Unless otherwise noted, [place] [address] CENTER all lab tests performed by: Division of Pathology and Laboratory Medicine [facility] DIAGNOSTIC LUMBAR SPINAL PUNCTURE (03/03/2021 2:11 PM CHIEF CONSOLE OPERATOR) Avi Broussard PA - 03/03/2021 2:11 PM CHIEF CONSOLE OPERATOR SONA Avina 03/03/2021 2:15 PM Lumbar Puncture without Chemotherapy Inj ection Date/Time: 03/03/2021 2:11 PM Provider Information: Performed by: SONA Avina Authorized by: Britany Tracy APN Head Stock Transfer Clerk present: no cornice maker used: pool technician no t needed Pre-Procedure Note: Consent obtained: yes [facility] protocol (time-out) performed: yes Patient Diagnosis: Pre-Procedure [...] Multiplex Panel Path Review (03/03/2021 1:41 PM CHIEF CONSOLE OPERATOR) Pathologist [facility] Path Reviewed and Electronically signed by Patholog ist: [facility] Review Wenceslao Young MD, PhD #[id number] CAN[facility]ER [facility] ER Comment: Assay is a multiplex PCR ass ay to aid in the diagnosis of meningitis / encephalitis. Results should be used in conjunction with other clinical and laboratory data and not as the sole basis for clinical decisions. Assay should not be used for monitoring response to therapy. WENCESLAO YOUNG MD, PhD - [id number] Dictated by: WENCESLAO YOUNG MD, PhD - [id number] Dictated Date/Time: 03.06.19 14:47 PM CHIEF CONSOLE OPERATOR Transcribed Date/Time: 03.06.2021 14:47 PM CHIEF CONSOLE OPERATOR Electronically Signed By: NICOLE YOUNG MD, PhD - [id number] on 03.06.2021 14:47 PM Specimen CSF Performing Organization Address City/State/ZIP Code Phon e Number [facility] CANCER Unless otherwise noted, [place] [address] [place] all lab tests performed by: Division of Pathology and Laboratory Medicine Jarrod Pearce Meningitis-Encephalitis Panel (03/03/2021 1:41 PM CHIEF CONSOLE OPERATOR) Pathologist [facility] Panel CSF LumbarComment: [facility] Source Assay is [facility]ENTER FDA-cleared for spinal fluid obtained via lumbar puncture. Escherichia coli K1 Not Detected Not Detected [facility] Haemophilus influenzae Not Detected Not Detected [facility] Listeria monocytogenes Not Detected Not Detected [facility] Neisseria meningitidis Not Detected Not Detected [facility] Streptococcus Not Detected Not Detected [facility] agalactiae [facility] Streptococcus Not Detected Not Detected [facility] pneumoniae [facility] Cytomegalovirus Not Detected Not Detected [facility] Enterovirus Not Detected Not Detected [facility] Herpes simplex Virus 1 Not Detected Not Detected [facility] Herpes simplex Virus 2 Not Detected Not Detected [facility] Human Herpesvirus 6 Not Detected Not Detected [facility] Human Parechovirus Not Detected Not Detected [facility] Varicella zoster Virus Not Detected Not Detected [facility] Cryptococcus Refer to separate [facility] neoformans/geo Cryptococcal [facility] Antigen Assay. Specimen CSF Performing Organization Address City/[facility] Phon e Number [facility] Unless otherwise noted, [address] all lab tests performed by: Division of Pathology and Laboratory Medicine [address] [place] [address] Cryptococcal Ag Path Review (03/03/2021 1:41 PM CHIEF CONSOLE OPERATOR) Pathologist [facility] Crypto Ag OR Reviewed and Electronically signed by Pathologist: [facility] [[email or web address]] VALENCIA Young MD, PhD #[id number] [facility] CENT ER Comment: Reference Range: NEGATIVE The Cryptococcal Antigen Lat eral Flow Assay is a dipstick sandwich immunographic assay. Positive results will be titered. WENCESLAO YOUNG MD, PhD - [id number] Dictated by: WENCESLAO YOUNG MD, PhD - [id number] Dictated Date/Time: 03.04.19 10:23 AM CHIEF CONSOLE OPERATOR Transcribed Date/Time: 03.04.2021 10:23 AM CHIEF CONSOLE OPERATOR Electronically Signed By: NICOLE YOUNG MD, PhD - [id number] on 03.04.2021 10:23 AM Specimen CSF Performing Organization Address City/[facility] Phon e Number [facility] Unless otherwise noted, [address] all lab tests performed by: Division of Pathology and Laboratory Medicine [address] [place], [place] [address] Cryptococcal Ag (03/03/2021 1:41 PM CHIEF CONSOLE OPERATOR) Pathologist Sig nature Cryptococcal Antigen Negative Negative [facility] Screen [facility] Specimen CSF Performing Organization Address City/State/ZIP Code Phon e Number [facility] CANCER Unless otherwise noted, [address] all lab tests performed by: Division of Pathology and Laboratory Medicine [facility] [place] Fungus Culture w/Smear (03/03/2021 1:41 PM CHIEF CONSOLE OPERATOR) Final Report No fungus isolated at [facility] 4 weeks. [facility] Path Review - Culture yield may be affecte d by sample quality, prior treatment, and transportation conditions. [facility] Fungus ... [facility] CENTER The results have been reviewed and electronically sign ed by Pathologist: Bryan Alvarado MD, PhD #[id number] Calcofluor Stain No Fungi seen in direct smear [facility] [[email or web address]] Sumeet NDERSON Test performed by fluorescent stain methodology. [facility] Specimen CSF Narrative [facility] - 2 11:21 AM CHIEF CONSOLE OPERATOR Cultures are held for 4 weeks before fin alization. Performing Organization Address City/[facility] Code Phon e Number [facility] CANCER Unless otherwise noted, [address] all lab tests performed by: Division of Pathology and Laboratory Medicine [facility] [place] Paraneoplastic Autoantibody Eval, CSF (03/03/2021 1:41 PM CHIEF CONSOLE OPERATOR) Para Eval See Footnote [facility] Interpretation, Comment: [facility] CSF No informative autoantibodies were detected in the Paraneoplastic Evaluation. However, a negative result does not exclude neurological autoimmunity with or without associated neoplasia. Sensitivity and specificity of antibody testing are enhanced by testing both serum an d CSF. ANNA1 CSF-Rufe Negative <1:2 titer [facility] Reflex Added None. [facility] CSF-Shaw Comment: [facility] ADDITIONAL INFORMATION ------ This test was developed and its performance characteri stics determined by [facility] in a manner consistent with CLIA requirements. This test has not been cleared or approv ed by the U.S. Food and Drug Administration. ANNA2 CSF-Rufe Negative <1:2 titer [facility] Comment: [facility] ADDITIONAL INFORMATION ------ This test was developed and its performance characteri stics determined by [facility] in a manner consistent with CLIA requirements. This test has not been cleared or approv ed by the U.S. Food and Drug Administration. ANNA3 CSF-Shaw Negative <1:2 titer [facility] Comment: [facility] ADDITIONAL INFORMATION ------ This test was developed and its performance characteri stics determined by [facility] in a manner consistent with CLIA requirements. This test has not been cleared or approv ed by the U.S. Food and Drug Administration. AGNA1 CSF-Rufe Negative <1:2 titer [facility] Comment: [facility] ADDITIONAL INFORMATION ------ This test was developed and its performance characteri stics determined by [facility] in a manner consistent with CLIA requirements. This test has not been cleared or approv ed by the U.S. Food and Drug Administration. PCA2 CSF-Shaw Negative <1:2 titer [facility] Comment: [facility] ADDITIONAL INFORMATION ------ This test was developed and its performance characteri stics determined by [facility] in a manner consistent with CLIA requirements. This test has not been cleared or approv ed by the U.S. Food and Drug Administration. Test Performed by: [facility] [employer] - [address] [address] Rivet Hammer Machine Operator: Jaycob Izaguirre M.D. Ph.D.; CLIA# [id number] PCATR CSF-Rufe Negative <1:2 titer [facility] Comment: [facility] ADDITIONAL INFORMATION ------ This test was developed and its performance characteri stics determined by [facility] in a manner consistent with CLIA requirements. This test has not been cleared or approv ed by the U.S. Food and Drug Administration. Amphip Ab Negative <1:2 titer [facility] Comment: [facility] ADDITIONAL INFORMATION ------ This test was developed and its performance characteri stics determined by [facility] in a manner consistent with CLIA requirements. This test has not been cleared or approv ed by the U.S. Food and Drug Administration. CRMP-5-IgG Negative <1:2 titer [facility] Comment: [facility] ADDITIONAL INFORMATION ------ This test was developed and its performance characteri stics determined by [facility] in a manner consistent with CLIA requirements. This test has not been cleared or approv ed by the U.S. Food and Drug Administration. QUALITY CONTROL SPECIALIST-1 Ab [facility] Negative <1:2 titer [facility] Comment: [facility] ADDITIONAL INFORMATION ------ This test was developed and its performance characteri stics determined by [facility] in a manner consistent with CLIA requirements. This test has not been cleared or approv ed by the U.S. Food and Drug Administration. Specimen CSF Performing Organization Address City/State/ZIP Code Phon e Number [facility] CANCER Unless otherwise noted, [place] [address] CENTER all lab tests performed by: Division of Pathology and Laboratory Medicine [facility] AFB Culture w/Smear (03/03/2021 1:41 PM CHIEF CONSOLE OPERATOR) Final Report Culture ongoing. [facility] Pathreview issued too [facility] early. Patient credited. Path Review - AFB Partial antibiotic treatment can render AFB culture negative. AFB culture has sensitivity of 90%. The results have been reviewed and electronically signed by Pathologist: [facility] Wenceslao Young MD, PhD #[id number] CANCER CENT ER Specimen CSF Narrative [facility] - 2 8:54 AM CHIEF CONSOLE OPERATOR Cultures are held 8 weeks before finaliz ation. Performing Organization Address City/State/ZIP Code Phon e Number [facility] CANCER Unless otherwise noted, [address] all lab tests performed by: Division of Pathology and Laboratory Medicine [address] [facility] CSF Culture w/ Gram Stain (03/03/2021 1:41 PM CHIEF CONSOLE OPERATOR) Final Report No growth [facility] Path Review Culture yield may be affecte d by sample quality, prior treatment, and transportation conditions. [facility] ... CANCER CENTER The results have been reviewed and electronically sign ed by Pathologist: Bryan Alvarado MD, PhD #[id number] Gram Stain Report No WBC's seen. [facility] No organisms seen. [facility] Specimen CSF Performing Organization Address City/[facility] Code Phon e Number [facility] CANCER Unless otherwise noted, [address] all lab tests performed by: Division of Pathology and Laboratory Medicine [address] [place] Cell Count w/ Diff Cerebrospinal Fluid (03/03/2021 1:41 PM CHIEF CONSOLE OPERATOR) Type CSF TapComment: When [facility] reviewing the cell [facility] CENTER count and differential results, clinicians should consider the length of time between spinal fluid collection and testing and the clinical condition of the patient. Appear CSF CLEARComment: When CLEAR [facility] reviewing the cell [facility]ER [facility]ENTER count and differential results, clinicians should consider the length of time between spinal fluid collection and testing and the clinical condition of the patient. Color CSF ColorlessComment: Colorless [facility] When reviewing the [facility]ER CENTER cell count and differential results, clinicians should consider the length of time between spinal fluid collection and testing and the clinical condition of the patient. WBC CSF 0Comment: When 0 - 5 /mcL [facility] reviewing the cell [facility]ENTER count and differential results, clinicians should consider the length of time between spinal fluid collection and testing and the clinical condition of the patient. RBC CSF 0Comment: When 0 - 0 /mcL [facility] reviewing the cell [facility]ENTER count and differential results, clinicians should consider the length of time between spinal fluid collection and testing and the clinical condition of the patient. Tot Cells CSF 4Comment: When [facility] reviewing the cell [facility]ENTER count and differential results, clinicians should consider the length of time between spinal fluid collection and testing and the clinical condition of the patient. Neut CSF 0Comment: When 0 - 5 % [facility] reviewing the cell [facility] count and differential results, clinicians should consider the length of time between spinal fluid collection and testing and the clinical condition of the patient. Lymph CSF 50Comment: When 28 - 96 % [facility] reviewing the cell CAN[facility] CENTER count and differential results, clinicians should consider the length of time between spinal fluid collection and testing and the clinical condition of the patient. Histiocyte CSF 50Comment: When 16 - 56 % [facility] reviewing the cell [facility] CENTER count and differential results, clinicians should consider the length of time between spinal fluid collection and testing and the clinical condition of the patient. Microorganisms CSF None SeenComment: None Seen [facility] When reviewing the [facility]ER CENTER cell count and differential results, clinicians should consider the length of time between spinal fluid collection and testing and the clinical condition of the patient. Specimen CSF - CSF, Lumbar Puncture Performing Organization Address [facility] Phon e Number [facility] CANCER Unless otherwise noted, [address] all lab tests performed by: Division of Pathology and Laboratory Medicine [address] [place] [address] [place] Protein CSF (03/03/2021 1:41 PM CHIEF CONSOLE OPERATOR) Protein CSF 36 15 - 45 mg/dL [facility] Type CSF OtherComment: When [facility] reviewing the cell [facility]ENTER count and differential results, clinicians should consider the length of time between spinal fluid collection and testing and the clinical condition of the patient. Specimen CSF - CSF, Lumbar Puncture Performing Organization Address [facility] Phon e Number [facility] CANCER Unless otherwise noted, [address] all lab tests performed by: Division of Pathology and Laboratory Medicine [address] [place] [address] [place] Glucose CSF (03/03/2021 1:41 PM CHIEF CONSOLE OPERATOR) Glucose CSF 59 40 - 70 mg/dL [facility] Type CSF OtherComment: When [facility] reviewing the cell [facility]ENTER count and differential results, clinicians should consider the length of time between spinal fluid collection and testing and the clinical condition of the patient. Specimen CSF - CSF, Lumbar Puncture Performing Organization Address [facility] Phon e Number [facility] CANCER Unless otherwise noted, [address] all lab tests performed by: Division of Pathology and Laboratory Medicine [address] [place] [address] [facility] Non-Director Of Supply Chain Interpretation (03/03/2021 1:28 PM CHIEF CONSOLE OPERATOR) Gross Description A: [facility] 1 Diff Quik; 1 Pap Stain Slides 5 ml. clear colorless fluid Specimen concentrated by cytocentrifugation technique Major Classification [facility]/benign [facility] Electro nically signed by Mavis Jorgensen MD on 2021 at 4:56 PM Diagnosis A. Cerebrospinal fluid, lumbar puncture: [facility] Retained/Biomarker SR: 2 S [facility] Testing Informational Points Some tests reported [facility] here may have been developed and performance characteristics determined by [facility] Pathology and Laboratory Medicine. These tests have not been specifically cleared or approved by the U.S. Food and Drug Administration. Specimen Fluid - CSF, Lumbar Puncture Performing Organization Address [facility] Phon e Number [facility] [address] [place] CG MYC Tissue FISH Interpretation and Report (03/02/2021 11:06 AM CHIEF CONSOLE OPERATOR) Specimen Narrative This result has an attachment that is no t available. Cytogenetics Specimen Collection -FFPE (03/02/2021 11:06 AM CHIEF CONSOLE OPERATOR) Imani Sheriff Link [id number] [facility] Comment: [facility] CENTER Collection date/time has bee n modified to: 11:06:00. Previous collection date/time: 11:06:00. Corrected from [id number] [NA] on 03/08/21 11:08:53 CS T by Harjeet Tariq. Cytogenetics Yes [facility] (Received) Comment: CANCER CENTER Collection date/time has bee n modified to: 11:06:00. Previous collection date/time: 11:06:00. Corrected from Yes [NA] on 03/08/21 11:08:53 CHIEF CONSOLE OPERATOR by Harjeet Junior. Specimen FFPE Performing Organization Address City/[facility] Phon e Number [facility] CANCER Unless otherwise noted, [place] [address] CENTER all lab tests performed by: Division of Pathology and Laboratory Medicine [address] GUIDED BIOPSY RETROPERITONEAL (03/02/2021 9:30 AM CHIEF CONSOLE OPERATOR) Specimen Narrative Rober Leon MD - 03/02/2021 4:50 PM CHIEF CONSOLE OPERATOR Date of Procedure: 03/02/21 Attending Physician: Rober Mitchell i, MD Head Stock Transfer Clerk: Adeel Israel Pre Procedure Diagnosis: Follicular ly mphoma [[id number]] Post Procedure Diagnosis: Unchanged Indication: Evaluate for [...] I certify my physical presence at the [facility] of the procedure. I personally reviewed the image(s) and the resident's / fellow's interpretation and agree with the written report. Cytology Image-Guided FNA Interpretation (03/02/2021 8:54 AM CHIEF CONSOLE OPERATOR) Gross Description A: [facility] Specimens procured: 2 Diff Quik; 2 Pap Stain Slides 10 ml, slightly cloudy bloody fluid in RPMI 1 FLOW 1 Cell Block Date/Time Placed in Formalin: 03/02/21, 1037 Size: 3.6 cm left retroperitoneal lymph node. Major Classification Nondiagnostic [facility] Electr onically signed by Dereck Dickerson MD on 03/08/2021 at 9:47 AM Diagnosis A. Retroperitoneum, left, fine needle aspiration: [facility] Electronically signed by Dereck Dickerson, Non-diagnostic specimen MD grecia romero 03/08/2021 at Rare degenerated lymphoid cells (see comment) 9:47 AM Comment Flow cytometry analysis (FC- [id number]) showed occasional B-cells, insufficient for clonality analysis. Please see the concurrently acquired core needle biopsy ([id number]) for a definitive diagnosis. [facility] Cell block section is contributory to the diagnosis. Retained/Biomarker SR: 4 S, 1 CB [facility] Testing Informational Points Some tests reported [facility] here may have been developed and performance characteristics determined by [facility] Pathology and Laboratory Medicine. These tests have not been specifically cleared or approved by the U.S. Food and Drug Administration. Specimen Fine Needle Asp - Retroperitoneum, Left Performing Organization Address City/State/ZIP Code Phon e Number [facility] [place] [address] [address] [facility] Pathology Biopsy Interpretation (03/02/2021 8:53 AM CHIEF CONSOLE OPERATOR) Addendum 1 Cytogenetic study (FISH) buzz ws a negative result for MYC gene rearrangement. [facility] Addendum electronically The original diagnosis remains unchanged. signed by Isak Noriega MD on 03/18 at 10:06 AM Submitted Follicular lymphoma [C82.90] [facility] Clinical History Follicular lymphoma grade [...] Soft tissue, left retroperitoneum, core needle biopsy: [facility] Electronically signed by Isak bae [...] reported by the Clinical Cytogenetic Laboratory at [facility]. Medical necessity justificat ion for the immunohistochemical stains that were needed in addition to the flow cytometric immunophenotypic studies for the best diagnosis possible is as follows: The flow c ytometric studies are not cl early farm loan representative of all the features requiring evaluation in this specimen. Gross Description A: [facility] Retroperitoneum, left, *biom arkers*: 5 soft israel-brown tissue cores ranging from 0.7cm to 1.8 cm in length and 0.1 cm in diameter, entirely submitted in A1 (2 cores) and A2 (3 cores). ET Disclaimer "Some tests reported here [facility] may have been developed and performance characteristics determined by [facility] Pathology and Laboratory Medicine. These tests have not been specifically cleared or approved by the U.S. Food and Drug Administration. If applicable, controls were reviewed and showed appropriate reactivity." Specimen Tissue - Retroperitoneum, Left Performing Organization Address City/[facility]/ZIP [place] Phon e Number [facility] [place] [address] [address] [place] (ABNORMAL) aPTT (03/02/2021 4:19 AM CHIEF CONSOLE OPERATOR) Pathologist [place] aPTT 37.3 (H) 24.7 - 36.8 [facility]() [place] Specimen Blood Performing Organization Address [facility] Phon e Number [facility] CANCER Unless otherwise noted, [address] all lab tests performed by: Division of Pathology and Laboratory Medicine [address] [facility] [place] (ABNORMAL) Prothrombin Time with INR (03/02/2021 4:19 AM CHIEF CONSOLE OPERATOR)Only the most recent of4 resultswithin the time period is included. Pathologist [facility] [place] PT 16.2 (H) 11.5 - 13.9 [facility]() [place] INR 1.39 (H) 0.90 - 1.10 [facility] Specimen Blood Performing Organization Address [facility] Phon e Number [facility] CANCER Unless otherwise noted, [address] all lab tests performed by: Division of Pathology and Laboratory Medicine [address] (ABNORMAL) Troponin T (In-House) (03/01/2021 4:11 AM CHIEF CONSOLE OPERATOR)Only the most recent of5 resultswithin the time period is included. Pathologist [place] Troponin T 171 (C) <=18 ng/L [facility] Comment: CANCER CENTER < 19 [...] low results. Specimen Blood Performing Organization Address [facility] Phon e Number [facility] Unless otherwise noted, [address] all lab tests performed by: Division of Pathology and Laboratory Medicine [address] (ABNORMAL) Lactic Acid, Venous (02/28/2021 6:56 PM CHIEF CONSOLE OPERATOR) Pathologist Sig nature V Lactate 2.0 (H) 0.5 - 1.6 mmol/L [facility] CE NTER Specimen Blood Performing Organization Address [facility] Phon e Number [facility] Unless otherwise noted, [address] all lab tests performed by: Division of Pathology and Laboratory Medicine [address] Blood Culture (02/28/2021 6:56 PM CHIEF CONSOLE OPERATOR) Final Report No growth [facility] Path Review - Immunity and antibiotic use may render culture negative. Ongoing infection requires repeat culture. The results have been reviewed and electronically signed by Pathologist: [facility] Bottle/Isolator Wenceslao Young MD, PhD #[id number] CANCER C ENTER Specimen Blood Narrative [facility] - 2 2:52 PM CHIEF CONSOLE OPERATOR Quantitative blood culture Isolator tube is QNS for testing. Refer to qualitative blood culture for test results. Performing Organization Address [facility] Phon e Number [facility] Unless otherwise noted, [address] all lab tests performed by: Division of Pathology and Laboratory Medicine [address] (ABNORMAL) Ammonia Level (02/28/2021 6:56 PM CHIEF CONSOLE OPERATOR) Pathologist Sig nature Ammonia <13 (L) 16 - 60 mcmol/L [facility] [address] Specimen Blood Performing Organization Address [facility] Phon e Number [facility] Unless otherwise noted, [address] all lab tests performed by: Division of Pathology and Laboratory Medicine [address] [facility] MRI Brain with and without Contrast (02/27/2021 1:12 PM CHIEF CONSOLE OPERATOR) Specimen Impressions [id number] - 02/27/2021 1:34 PM CHIEF CONSOLE OPERATOR Exam is markedly motion degraded. No lar ge foci of abnormal parenchymal enhancement are identified, however recommend a repeat exam once the patient is able. Narrative [id number] - 02/27/2021 1:34 PM CHIEF CONSOLE OPERATOR FULL RESULT: EXAMINATION: MRI BRAIN W WO [...] the patient is able. Performing Organization Address City/[facility]/ZIP Code Phon e Number [id number] (ABNORMAL) Cardiac Panel (02/26/2021 6:02 PM CHIEF CONSOLE OPERATOR)Only the most recent of6 resultswithin the time period is included. CK 156 39 - 308 U/L [facility] CK MB 11.0 (H) <=10.4 ng/mL [facility] Troponin T 143 (C) <=18 ng/L [facility] Comment: CANCER CENTER < 19 [...] low results. Specimen Blood Performing Organization Address [facility] Phon e Number [facility] Unless otherwise noted, [address] all lab tests performed by: Division of Pathology and Laboratory Medicine [address] [place] EKG, 12-Lead (02/26/2021)Only the most recent of4 resultswithin the time period is included. Specimen Narrative This result has an attachment that is no t available. Performing Organization Address City/[facility]/ZIP Code Phon e Number CODIE IECG (ABNORMAL) NT-Pro BNP (In-House) (02/24/2021 4:13 PM CHIEF CONSOLE OPERATOR) Pathologist Sig nature NT ProBNP 21,122 (H) <=450 pg/mL [facility] Specimen Blood Performing Organization Address [facility]/ZIP [place] Phon e Number [facility] CANCER Unless otherwise noted, [address] all lab tests performed by: Division of Pathology and Laboratory Medicine [address] [facility] [place] (ABNORMAL) Lipid Panel (02/24/2021 4:13 PM CHIEF CONSOLE OPERATOR)Only the most recent of2 results within the time period is included. Chol 137 <=199 mg/dL [facility] Comment: [facility] ATP III Classification of To juliette Cholesterol Primary Target of Therapy (in mg/dL): <200 Desirable 200-239 Borderline high >=240 High Trig 114 <=149 mg/dL [facility] Comment: [facility] ATP III Classification of Se rum Triglycerides Primary Target of Therapy (in mg/dL): <150 Normal 150-199 Borderline high 200-499 High >=500 Very high Non-fasting triglycerides >2 00 mg/dL may be followed up with a fasting Lipid Panel. Calculated LDL-C may be falsely decreased when non-fasting triglycerides >200 mg/dL. HDL 24 (L) >=40 mg/dL [facility] LDL 90 <=100 mg/dL [facility] Comment: [facility] ATP III Classification of LD L Cholesterol Primary Target of Therapy (in mg/dL): <100 Optimal 100-129 Near optimal/above optimal 130-159 Borderline high 160-189 High >=190 Very high VLDL 23 mg/dL [facility] Specimen Blood Performing Organization Address City/[facility]/ZIP Code Phon e Number [facility] CANCER Unless otherwise noted, [address] all lab tests performed by: Division of Pathology and Laboratory Medicine [facility]5 [facility] Hemoglobin A1c (02/24/2021 2:32 PM CHIEF CONSOLE OPERATOR)Only the most recent of2 resultswithin the time period is included. Pathologist Sig nature A1C 5.2 4.3 - 5.6 % [facility] Comment: [facility] HbA1c values >=6.5% are diagnostic of diabetes mellitu s. Diagnosis should be confirmed by repeat testing. Therapeutic Action suggested: >8.0% HbA1c; Goal of therapy: <7.0% HbA1c Specimen Blood Performing Organization Address City/State/[facility] Phon e Number [facility] CANCER Unless otherwise noted, [address] all lab tests performed by: Division of Pathology and Laboratory Medicine [facility]5 [facility] Echocardiogram 2D Complete with Contrast (02/24/2021 10:00 AM CHIEF CONSOLE OPERATOR) Specimen Narrative ISCV - 02/24/2021 11:45 AM CHIEF CONSOLE OPERATOR Echocardiographic Report Interpretation Summary A complete two-dimensional [...] was not perform ed in this study. (Miraculins Study). Diastology: Pseudonormal LV relaxation pattern of [...] WB Initial Treatment Strategy (02/24/2021 7:42 AM CHIEF CONSOLE OPERATOR) Specimen Impressions [id number] - 02/24/2021 3:55 PM CHIEF CONSOLE OPERATOR Confluent abnormal FDG-avidity involving the spleen, pancreatic tail, and posterior stomach and FDG-avid retroperitoneal lymphadenopathy are consistent with active lymphoma. Narrative [id number] - 02/24/2021 3:55 PM CHIEF CONSOLE OPERATOR FULL RESULT: Examination: FDG PET/CT, 02/24/2021 7:42 [...] Organization Address City/State/ZIP Code Phon e Number [id number] (ABNORMAL) Hepatitis B Core Total Antibody (02/23/2021 5:20 PM CHIEF CONSOLE OPERATOR) HBc Total Ab-[place] Positive (A) Negative [facility] Comment: CANCER CENTER If clinically indicated, testing for Hepatitis B Core IgM antibody is necessary to differentiate between acu te and past HBV infection. Test Performed by: [facility] [place] [address] Rivet Hammer Machine Operator: Jaycob Izaguirre M.D. Ph.D.; CLIA# [id number] Specimen Blood Performing Organization Address [facility] Phon e Number [facility] CANCER Unless otherwise noted, [address] all lab tests performed by: Division of Pathology and Laboratory Medicine [address] [place] [address] HTLV I/II Ab Screen with Confirm (02/23/2021 5:20 PM CHIEF CONSOLE OPERATOR) [facility] HTLV I/II Ab Negative Negative [facility] Comment: CANCER CENTER Test Performed by: [facility] [place] [address] [employer] Hammer Machine Operator: Jaycob Izaguirre M.D. Ph.D.; CLIA# [id number] Specimen Blood Performing Organization Address [facility] e Number [facility] Unless otherwise noted, [address] all lab tests performed by: Division of Pathology and Laboratory Medicine [address] [place] [address] HIV-1 DNA and RNA Qual PCR (02/23/2021 5:20 PM CHIEF CONSOLE OPERATOR) [facility] HIV-1 DNA/RNA Undetected Undetected [facility] Qual-Rufe Comment: CANCER CENTER Repeat testing in 1 to 2 months is recommended for tho se at risk of HIV-1 infection. ADDITIONAL INFORMATION ------ This test was performed using the Ramon RealTime HIV- 1 Qualitative assay ([employer] [place] , [place]). This test was developed and its performance characteri stics determined by [facility] in a manner consistent with CLIA requirements. This test has not been cleared or approv ed by the U.S. Food and Drug Administration. Test Performed by: [facility] [place] [address] [employer] Hammer Machine Operator: Jaycob Izaguirre M.D. Ph.D.; CLIA# [id number] Specimen Blood Performing Organization Address [facility] Phon e Number [facility] CANCER Unless otherwise noted, [address] all lab tests performed by: Division of Pathology and Laboratory Medicine [address] TMP HIV 1/2 Ag&Ab Path Interp (02/23/2021 5:20 PM CHIEF CONSOLE OPERATOR) Pathologist [facility] HIV 1/2 Ag&Ab Negative for HIV-1 antigen a nd HIV-1/HIV-2 antibodies. No laboratory evidence of HIV infection. If acute HIV infection is suspected, consider testing for HIV-1 RNA. [facility] Interp Comment: CENTER MD Rip KNAPP [id number] Dictated by: ROM GUTIERREZ MD - 1 [id number] Dictated Date/Time: 02.26.20 9:57 AM CHIEF CONSOLE OPERATOR Transcribed Date/Time: 02.25.2021 9:57 AM CHIEF CONSOLE OPERATOR Electronically Signed By: MD Rip MAHAN [id number] on 02.25.2021 9:57 AM C Specimen Blood Performing Organization Address City/[facility]/ZIP Code Phon e Number [address] [address] Rapid Plasma Reagin (RPR) [Syphilis SCREENING] (02/23/2021 5:20 PM CHIEF CONSOLE OPERATOR) Pathologist Sig nature RPR Screening Non Reactive Non Reactive [facility] Specimen Blood Performing Organization Address City/State/ZIP [place] Phon e Number [address] [address] TMP RPR Path Interpretation (02/23/2021 5:20 PM CHIEF CONSOLE OPERATOR) Pathologist [facility] TMP RPR Path The Rapid Plasma Reagin (RPR ) assay is negative. If a syphilis infection is suspected, please perform a Treponemal specific screening assay. [facility] Interpretation Comment: CENTER MD Rip KNAPP [id number] Dictated by: MD Rip KNAPP [id number] Dictated Date/Time: 02.26.20 9:57 AM CHIEF CONSOLE OPERATOR Transcribed Date/Time: 02.25.2021 9:57 AM CHIEF CONSOLE OPERATOR Electronically Signed By: MD Rip MAHAN [id number] on 02.25.2021 9:57 AM C Specimen Blood Performing Organization Address City/[facility] Phon e Number [facility] CENTER [address] [place] [id number] HIV-1/2 Antigen and Antibodies, Fourth Generation (02/23/2021 5:20 PM CHIEF CONSOLE OPERATOR) Pathologist [facility] HIV 1/2 Ag & Ab, Non Reactive Non Reactive [facility] 4th Gen Comment: CENTER Performed at: [facility] [address] [place] [id number] Specimen Blood Performing Organization Address [facility] Phon e Number [facility] [address] [place] [id number] TMP HCV Ab Path Interp (02/23/2021 5:20 PM CHIEF CONSOLE OPERATOR) Pathologist [facility] HCV Ab Path There is NO serologic evidence of Hepatitis C vi desire antibody. [facility] DONOR Interp Comment: CENTER MD Rip KNAPP [id number] Dictated by: MD Rip KNAPP [id number] Dictated Date/Time: 02.26.20 9:56 AM CHIEF CONSOLE OPERATOR Transcribed Date/Time: 02.25.2021 9:56 AM CHIEF CONSOLE OPERATOR Electronically Signed By: MD Rip MAHAN on 02.25.2021 9:56 AM C Specimen Blood Performing Organization Address City/[facility] Phon e Number [facility] DONOR CENTER [address] [place] [id number] Hepatitis C Virus Ab (02/23/2021 5:20 PM CHIEF CONSOLE OPERATOR) Pathologist [facility] HCVAb. Non Reactive Non Reactive [facility] DON[facility] Comment: CENTER Antibody detection in the im munocompromised and immunosuppressed population may be delayed or absent entirely. Therefore serial testing, correlation with other clinical findings, and supplemental testin g (if available) should be taken into consideration when interpreting the results. Performed at: [facility] [address] [place] [address] Specimen Blood Performing Organization Address [facility] Phon e Number [facility]ENTER [address] [place] [address] Hepatitis B Surface Ag w/Confirm (02/23/2021 5:20 PM CHIEF CONSOLE OPERATOR) Pathologist [facility] Hep Bs Ag-Rufe Negative Negative [facility] Comment: [facility] CENTER Test Performed by: [address] [address] Rivet Hammer Machine Operator: Jaycob Izaguirre M.D. Ph.D.; CLIA# [id number] Specimen Blood Performing Organization Address [facility] Phon e Number [facility] CANCER Unless otherwise noted, [address] all lab tests performed by: Division of Pathology and Laboratory Medicine [address] [place] [address] Hepatitis B Total Ig Core Ab (SCREENING) (anti-HBc total Ig; HBcAb total Ig) (02/23/2021 5:20 PM CHIEF CONSOLE OPERATOR) Pathologist Sig nature HBcAb Received See NoteComment: [facility] HBcAb was sent to a CANCER CENTER reference lab for testing. Expect results on Hepatitis B Core Total Ab within 96 hours. Specimen Blood Performing Organization Address [facility] Phon e Number [facility] CANCER Unless otherwise noted, [address] all lab tests performed by: Division of Pathology and Laboratory Medicine [address] [place] [address] CMV Ab IgG+IgM Path Review (02/23/2021 5:20 PM CHIEF CONSOLE OPERATOR) [facility] CMV Panel OR Positive IgG with low IgM rojas ggests previous infection. IVIG can give false positivity. [facility] High titers of IgG can give false negative IgM. Therefore, active disease is CANCER CENTER possible but less likely with this pattern. Reviewed and Electronically signed by Pathologist: Wenceslao Young MD, PhD #[id number] Comment: Test performed by an immunoa ssay intended for the qualitative detection of IgG and IgM antibodies to Cytomegalovirus (CMV) in human serum. When equivocal results are obtained, another specimen should be collected 10-14 days later. WENCESLAO YOUNG MD, PhD - [id number] Dictated by: WENCESLAO YOUNG MD, PhD - [id number] Dictated Date/Time: 03.01.19 9:10 AM CHIEF CONSOLE OPERATOR Transcribed Date/Time: 03.01.2021 9:10 AM CHIEF CONSOLE OPERATOR Electronically Signed By: NICOLE YOUNG MD, PhD - [id number] on 03.01.2021 9:10 AM C Specimen Blood Performing Organization Address City/State/ZIP Code Phon e Number [facility] CANCER Unless otherwise noted, [address] all lab tests performed by: Division of Pathology and Laboratory Medicine [address] [place] [address] (ABNORMAL) CMV Ab IgG+IgM (02/23/2021 5:20 PM CHIEF CONSOLE OPERATOR) Pathologist Sig nature CMV IgM Int Negative Negative [facility] CMV IgG Int Positive (A) Negative [facility] Specimen Blood Performing Organization Address City/[facility] Phon e Number [facility] CANCER Unless otherwise noted, [address] all lab tests performed by: Division of Pathology and Laboratory Medicine [address] [place] [address] TMP Interpretation TOSHA (02/23/2021 5:20 PM CHIEF CONSOLE OPERATOR) TMP Interp TOSHA Patient red blood cells demo nstrate no evidence of detectable IgG antibodies or complement. [facility] Comment: CANCER [place] ROM GUTIERREZ MD - [id number] Dictated by: ROM GUTIERREZ MD - [id number] Dictated Date/Time: 02.25.20 8:32 AM CHIEF CONSOLE OPERATOR Transcribed Date/Time: 02.24.2021 8:32 AM CHIEF CONSOLE OPERATOR Electronically Signed By: MARTINA GUTIERREZ MD - [id number] on 02.24.2021 8:32 AM C Specimen Blood Performing Organization Address City/State/ZIP Code Phon e Number [facility] CANCER Unless otherwise noted, [place] [address] CENTER all lab tests performed by: Division of Pathology and Laboratory Medicine [address] (ABNORMAL) Cytokine Panel (02/23/2021 5:20 PM CHIEF CONSOLE OPERATOR) Tumor Nec 7.5 (H) <=7.2 pg/mL [facility] [id number] Comment: CANCER CENTER INTERPRETIVE INFORMATION: Cytokines Results are used to understand the pathophysiology of immune, infectious, or inflammatory disorders, or may be used for research purposes. This test was developed and its performance characteri stics determined by [facility]. It has not been clear ed or approved by the US Food and Drug Administration. This test was performed in a CLIA certified laboratory and is intended for clinical purposes. Performed By: [facility] [address] [place] [address] Statistical Secretary: Zamzam Melissa MD Interleuk 2-Shaw <2.1 <=2.1 pg/mL [facility] Interleukin 2 980.5 (H) 175.3 - [facility] Rcpt-Shaw 858.2 pg/mL CANCER CENTER Interleukin <1.9 <=1.9 pg/mL [facility] 12-[facility] CENTER Interferon <4.2 <=4.2 pg/mL [facility] gamma-[facility] CENTER Interleukin 4-Shaw <2.2 <=2.2 pg/mL [facility] Interleukin 5-Rufe <2.1 <=2.1 pg/mL [facility] Interleukin 24.4 (H) <=2.8 pg/mL [facility] 10-Rufe CANCER CENTER Interleukin 2.0 <=2.3 pg/mL [facility] 13-Rufe CANCER CENTER Interleukin <1.4 <=1.4 pg/mL [facility] 17-[facility] CENTER Interleukin 1 <6.5 <=6.7 pg/mL [facility] beta-[facility] CENTER Interleukin 6-Shaw 28.6 (H) <=2.0 pg/mL [facility] Interleukin 8-Rufe <3.0 <=3.0 pg/mL [facility] Comment: CANCER CENTER Test Performed by: [facility] [address] [place] [address] Specimen Blood Performing Organization Address [facility]/ZIP [place] Phon e Number [facility] CANCER Unless otherwise noted, [address] all lab tests performed by: Division of Pathology and Laboratory Medicine Jarrod Pearce HTLV I/II Ab (02/23/2021 5:20 PM CHIEF CONSOLE OPERATOR) HTLVI/II Ab See NoteComment: [facility] Received HTLV I/II Ab was CANCER CENTER sent to a reference lab for testing. Expect results on HTLV I/II Ab Screen with Confirm within 96 hours. Specimen Blood Performing Organization Address [facility] Phon e Number [facility] CANCER Unless otherwise noted, [address] all lab tests performed by: Division of Pathology and Laboratory Medicine Jarrod Pearce (ABNORMAL) Vitamin D 25OH (02/23/2021 5:20 PM CHIEF CONSOLE OPERATOR) Vitamin D 25 OH 28 (L) 30 - 100 ng/mL [facility] Comment: [facility] CENTER Reference Range: Deficiency: <10 ng/mL Insufficiency: 10-29 ng/mL Sufficiency: 30-100 ng/mL Potential toxicity: >100 ng/mL Specimen Blood Performing Organization Address [facility] Phon e Number [facility] Unless otherwise noted, [address] all lab tests performed by: Division of Pathology and Laboratory Medicine Jarrod Pearce Hepatitis B Surface Ag (02/23/2021 5:20 PM CHIEF CONSOLE OPERATOR) Pathologist Sig nature HBsAg Received See NoteComment: [facility] HBsAg was sent to a CANCER CENTER reference lab for testing. Expect results on Hepatitis B Surface Antigen w/ Confirm within 96 hours. Specimen Blood Performing Organization Address [facility] Code Phon e Number [facility] CANCER Unless otherwise noted, [address] all lab tests performed by: Division of Pathology and Laboratory Medicine Jarrod Pearce Direct Antiglobulin Test (02/23/2021 5:20 PM CHIEF CONSOLE OPERATOR) Pathologist Sig nature TOSHA Result IgG neg,C3 neg [facility] Specimen Blood Performing Organization Address City/[facility]/ZIP Code Phon e Number [facility] CANCER Unless otherwise noted, [address] all lab tests performed by: Division of Pathology and Laboratory Medicine [address] TSH (02/23/2021 5:20 PM CHIEF CONSOLE OPERATOR) Pathologist Sig nature TSH 1.62 0.27 - 4.20 mcunit/mL [facility] CAN ER CENTER Specimen Blood Performing Organization Address City/[facility]/ZIP Code Phon e Number [facility] CANCER Unless otherwise noted, [address] all lab tests performed by: Division of Pathology and Laboratory Medicine [address] T4 (02/23/2021 5:20 PM CHIEF CONSOLE OPERATOR) Pathologist Sig nature T4 7.0 4.5 - 11.7 mcg/dL [facility] C ENTER Specimen Blood Performing Organization Address [facility] Phon e Number [facility] CANCER Unless otherwise noted, [address] all lab tests performed by: Division of Pathology and Laboratory Medicine [address] Total Protein (02/23/2021 5:20 PM CHIEF CONSOLE OPERATOR) Pathologist Sig nature Total Protein 6.4 6.4 - 8.3 g/dL [facility] [address] Specimen Blood Performing Organization Address [facility] Phon e Number [facility] CANCER Unless otherwise noted, [address] all lab tests performed by: Division of Pathology and Laboratory Medicine [address] IgA (02/23/2021 5:20 PM CHIEF CONSOLE OPERATOR) Pathologist Sig nature IgA 225 85 - 499 mg/dL [facility] ER Specimen Blood Performing Organization Address [facility] Phon e Number [facility] CANCER Unless otherwise noted, [address] all lab tests performed by: Division of Pathology and Laboratory Medicine [address] (ABNORMAL) IgM (02/23/2021 5:20 PM CHIEF CONSOLE OPERATOR) Pathologist Sig nature IgM 331 (H) 35 - 242 mg/dL [facility] CENT ER Specimen Blood Performing Organization Address [facility] Phon e Number [facility] CANCER Unless otherwise noted, [address] all lab tests performed by: Division of Pathology and Laboratory Medicine [address] IgG (02/23/2021 5:20 PM CHIEF CONSOLE OPERATOR) Pathologist Sig nature IgG 885 610 - 1,616 mg/dL [facility] C ENTER Specimen Blood Performing Organization Address City/State/ZIP Code Phon e Number [facility] CANCER Unless otherwise noted, [address] all lab tests performed by: Division of Pathology and Laboratory Medicine [facility] Greeleyrupali Pearce (ABNORMAL) Beta 2 Microglobulin (02/23/2021 5:20 PM CHIEF CONSOLE OPERATOR) Pathologist Sig nature Beta2 Microglob 2.7 (H) 0.8 - 2.3 mg/L [facility] Specimen Blood Performing Organization Address City/State/ZIP Code Phon e Number [facility] CANCER Unless otherwise noted, [address] all lab tests performed by: Division of Pathology and Laboratory Medicine [address] [place] [address] [facility] Electrolyte Panel (02/23/2021 5:20 PM CHIEF CONSOLE OPERATOR) Pathologist Sig nature Sodium Lvl 139 136 - 145 mEq/L [facility] Potassium Lvl 3.5 3.5 - 5.1 mEq/L [facility] Chloride 103 98 - 107 mEq/L [facility] CO2 22 22 - 29 mEq/L [facility] Anion Gap 14 4 - 14 mEq/L [facility] Specimen Blood Performing Organization Address City/[facility] Phon e Number [facility] CANCER Unless otherwise noted, [address] all lab tests performed by: Division of Pathology and Laboratory Medicine [address] [place] [address] [facility] COVID-19 (SARS-CoV-2)Asymptomatic-LT (02/23/2021 4:29 PM CHIEF CONSOLE OPERATOR) COVID19 Not Detected Not Detected [facility] (SARS-CoV-2) [facility] COVID19 SARS Inpatient Admission [facility] Indication [facility] CENTER Covid 19 Comment See Note [facility] Comment: [facility] The kayla SARS-CoV-2 nucleic acid test [...] fact sheet for patients provided by the [employer] ([employer] can be reviewed at: https://www.fda.gov/media/15 9717/download. A fact sheet for Health Care providers is provided by the [employer] ([employer]) and can be reviewed at: https://www.fda.gov/media/463135/download Results must be interpreted within the context [...] and high-complexity tests. The Microbiology Laboratory at [facility] [place], CLIA Accreditation # [id number] and CAP Accreditation #[id number], verified the performance characteristics of this assay. Internal controls are used to monitor all stages of the test process. Specimen Nasopharyngeal Swab Performing Organization Address City/State/ZIP Code Phon e Number [facility] CANCER Unless otherwise noted, [address] all lab tests performed by: Division of Pathology and Laboratory Medicine [facility] Pathology Outside Interpretation (02/04/2021) Materials Accession#, Stained, Block, Unstained Collected Receiv ed [facility] Received A. 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 No additional testing was performed on this sample at [facility]. Disclaimer "Some tests reported here [facility] may have been developed and performance characteristics determined by [facility] Pathology and Laboratory Medicine. These tests have not been specifically cleared or approved by the U.S. Food and Drug Administration. If applicable, controls were reviewed and showed appropriate reactivity." Specimen Tissue Performing Organization Address City/State/ZIP Code Phon e Number [facility] [place] [address] [address] after 04/13/2020 Insurance Payer Benefit Plan / Subscriber ID Effective Dates Phone Addre ss Type Group AETNA MEDICARE AETNA MEDICARE [id number] 2021-Presen [address] [place] [address] Advance Directives Code Status Date Activated Date Inactivated Comments DNR 03/05/2021 10:41 AM 03/24/2021 9:26 PM DNR obtained from: Legal Guardian or MPOA Full Code 02/23/2021 2:13 PM 03/05/2021 10:41 AM Full Code 10/29/2018 6:58 PM 11/12/2018 9:54 PM Full Code 10/10/2018 10:29 AM 10/15/2018 8:46 PM Care Teams Animal Sitter Relationship Specialty Start Date End Date Kuldeep Melgoza MD PCP - External Dermatology 08/16/18 [address] [id number] [place] [address] Roshan Sauceda MD PCP - General Head and Neck Surgery 08/16/[address] [place] [address] Ronn Wilson, PCP - External Primary Family Practice 09/04/17 MD Care Provider [address] [facility] [address] [place], [place] [id number] Pollo Navarro PCP - External Follow Cardiology 09/04/17 MD Rae Up A [address] [facility] [address] [place], [place] [address]
--- OUTSIDE RECORDS SUMMARY | 2021-04-13 16:01 | XMS REPORT | Continuity of Care Document ---
:1935 Author Organization [facility] t Address [address] [place] [address] Dr. Dickerson [address] [place] [id number] Care Team Providers Name Role Phone [phone] Primary Care Physician Unavailable SYSTEM, NOT IN [...] Clinician Unavailable AMADOR Attending Clinician Unavailable Swetha ATTACHER Attending Clinician Unavailable Thair MAGALLANES Attending Clinician Kirk LOCKETT, A Attending Clinician Only, Test Attending Clinician Unavailable Doctor Unassigned, Name Attending Clinician Unavailable Isak Mantilla MD Attending Clinician Saarh Ortiz MD Attending Clinician Veronica LOCKETT, Betito Attending Clinician Pob, Lab Main Attending Clinician Unavailable Dora LOCKETT Attending Clinician KIRK, Sumeet Admitting Clinician Unavailable Isak MANTILLA Admitting Clinician Unavailable AMADOR Admitting Clinician Unavailable Kirk LOCKETT, Sumeet Admitting Clinician Payers Payer Name Policy Type Policy Number Effective Date Expiration Date S vernon [employer] MANAGED [address] 2020 MEDICARE PPO-FERNANDO 00:00:00 [employer] MEDICARE [...] Mem oria -14 22:24:00 l FEVER 00:00: [place] 00 Active 01/09/2019 [place] Unexplaine Unexplaine Disease Active 2018-02 Last M [...] Added automatic ally from request for surgery [id number] Encounter Encounter Disease Active Overview: for other [...] 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 [id number] Carotid Duplex: <50% plaque within right ICA, normal left ICA, antegrade flow within bilateral vertebral arteriesO records from [place], [place] Tripp t Cardiolog yreviewed [facility] 05/09/17: LAD prox patent stent [...] -14 22:44:12 22:44:12 l fever) Chills 18:00: [place] (without 00 fever) 01/09/2019 01/21/2019 [place] Allergies, Adverse Reactions, Alerts Allergy Allergy Status [...] s Branch codeine codeine Active Memoria l [place] Cipro Cipro Active Memoria l [place] Keflex Keflex Active Memoria l [place] NO KNOWN Drug Active Univers ALLERGIE Class ity of S [facility] NO KNOWN Allergy Active SLEH ALLERGIE S [...] to Not sure University of SARS-CoV-2 (event) [facility] History SDOH [facility] - Alcohol Comment Medical C enter Alcohol intake 2021-03-03 2021-03-03 Ex-drinker MD Adam romero 00:00:00 00:00:00 (finding) History SDTN 2020-09-26 2020-09-[address] [facility] - Alcohol Frequency 00:00:00 00:00:00 Medical Center History SDOH 2020-09-26 2020-09-[address] [facility] - Alcohol Std Drinks 00:00:00 00:00:00 Medica l Center History SDOH 2020-09-26 2020-09-[address] [facility] - Alcohol Binge 00:00:00 00:00:[address] Social History 2020-08-09 2020-08-09 [facility] faith 20:37:37 20:37:37 Cigarettes smoked 2018-09-04 2018-09-04 MD Arya mitchell current (pack per 00:00:00 00:00:00 day) - Reported Cigarette 2018-09-04 2018-09-04 MD Blackwell pack-years 00:00:00 00:00:00 Tobacco use and 2018-09-04 2018-09-04 Former smokeless MD Blackwell exposure 00:00:00 00:00:00 tobacco user Sex Assigned At [birth year] [facility] y of 00:00:00 00:00:00 [facility] Smoking Status Start Date Stop Date Source Unknown if ever smoked [facility] Never smoker [facility] Social History 2019-01-10 07:34:37 2019-01-10 07:34:37 [facility] Medications Ordered Filled Start Stop [...] 00 90 tab, 1 [Aricept] Refill(s), Pharmacy: [id number], 175.26, cm, 07/19/20 14:31:00 CDT, Height, 75.909, kg, 07/19/20 14:31:00 CDT, Weight Pramipexole 2020-02 Yes 0.125 mg = Memoria dihydrochlo 0-12 1 tab, PO, l ride 0.125 14:54: TID, # 270 H ermann MG Oral 00 tab, 3 Tablet Refill(s), [Mirapex] Pharmacy: [facility] #[id number], 175.26, cm, 07/19/20 14:31:00 CDT, Height, [...] on Sun [place] (MAXITROL) 00 12/01/20 at [facility] ica 3.5 1027, Branch mg/g-10,000 Until unit/g-0.1 Discontinu % ed, ophthalmic Routine, ointment Intra-op neomycin-po 2020-02- No PRN, Unive rs lymyxin-dex 0-06 10-06 Starting ity of amethasone 15:27: 18:16 [place] (MAX[place]OL[place] 00 :40 12/01/20 at [facility] ica 3.5 1027, Branch mg/g-10,000 Until Wed unit/g-0.1 12/01/20 at % 1316, ophthalmic Routine, ointment Intra-op balanced 2020-02 Yes PRN, Univers salt irrig 0-06 Starting ity o f soln comb1 15:23: on Sun (BSS PLUS) 00 12/01/20 at [facility] ica ophthalmic 1023, Branch solution Until 500 mL bag Discontinu ed, Routine, Intra-op EPINEPHrine 2020-02 Yes PRN, Univer s 1:1,000 (1 0-06 Starting ity o f mg/mL) 15:23: on Sun (ADRENALIN) 00 12/01/20 at Il dical injection 1023, Branch Until Discontinu ed, Routine, Intra-op balanced 2020-02- No PRN, Univers salt irrig 0-06 10-06 Starting ity of soln comb1 15:23: 18:16 [place] (BSS PLUS[place] 00 :40 12/01/20 at [facility] ica ophthalmic 1023, Branch solution Until Wed 500 mL bag 12/01/20 at 1316, Routine, Intra-op EPINEPHrine 2020-02- No PRN, Unive rs 1:1,000 (1 0-06 10-06 Starting ity of mg/mL) 15:23: 18:16 on Sun [place] (ADRENALIN) 00 :40 12/01/20 at Il dical injection 1023, Branch Until 10/6/21 at 1316, Routine, Intra-op water for 2020-02 Yes PRN, Univers irrigation 0-06 Starting ity o f irrigation 15:19: on Sun [place] solution 00 12/01/20 at [facility] 1019, Branch Until Discontinu ed, Routine, Intra-op water for 2020-02- No PRN, Univers irrigation 0-06 10-06 Starting ity of irrigation 15:19: 18:16 on [place] solution 00 :40 12/01/20 at [facility] 1019, Branch Until Sun12/01/20 at 1316, Routine, Intra-op Hyaluronida 2020-02 Yes PRN, Univer s se, Human 0-06 Starting ity of Recomb. 15:15: on Sun (HYLENEX) 00 12/01/20 at [facility] injection 1015, Branch Until Discontinu ed, Routine, Intra-op eye block 2020-02 Yes PRN, Univers syringe 11 0-06 Starting ity o f mL 15:15: on Sun [place] 00 12/01/20 at [facility] 1015, Branch Until Discontinu ed, Intra-op Hyaluronida 2020-02- No PRN, Unive rs se, Human 0-06 10-06 Starting ity o f Recomb. 15:15: 18:16 on Sun [place] (HYLENEX) 00 :40 12/01/20 at [facility] injection 1015, Branch Until Sun12/01/20 at 1316, Routine, Intra-op eye block 2020-02- No PRN, Univers syringe 11 0-06 10-06 Starting ity of mL 15:15: 18:16 on Sun [place] 00 :40 12/01/20 at [facility] 1015, Branch Until Sun12/01/20 at 1316, Intra-op mydriatic 2020-02- No .5mL 0.5 mL, Univ ers #5 0-06 10-06 Left Eye, ity of ophthalmic 14:00: 13:58 ONCE, 1 Hernán as solution 00 :00 dose, On Medical 0.5 mL [facility] syringe 12/01/20 at 0900, Routine, DSU Pre-op lactated 2020-02- No 1000mL at 42 Unive rs ringers IV 0-06 10-06 mL/hr, ity of infusion 14:00: 13:56 1,000 mL, Hrenán as 1,000 mL 00 :00 IV Medical [...] 0-06 by mouth. ity of tablet 11:16: [address] famotidine 2020-02 Yes 20mg Take 20 mg U nivers 20 mg 0-06 by mouth. ity of tablet 11:16: [address] aspirin 81 2020-02 Yes 81mg Take 81 mg U nivers mg EC 0-06 by mouth. ity of tablet 11:16: [address] famotidine 2020-02 Yes 20mg Take 20 mg U nivers 20 mg 0-06 by mouth. ity of tablet 11:16: [address] sotaloL Yes life-threat 80mg Q.5D Take [address] [facility] (BETAPACE) 8-04 ening by mouth 2 Francy kes - 80 MG 17:43: ventricular (two) Medi mendez tablet 16 tachycardia times Cente r daily. clopidogreL Yes acute 75mg QD Take [address] (PLAVIX) 75 8-04 coronary by mouth Lukes - mg tablet 17:43: syndrome daily. Il dical [address] [place] [address] atorvastati Yes 80mg QD Take [address] [facility] (LIPITOR) 8-04 by mouth Luke s - 80 MG 17:43: daily. Medical tablet 16 Center furosemide 0 Yes 80mg Q.[id number] Take [address] (LASIX) 80 8-04 [id number] by mouth 3 [facility]ukes - MG tablet [...] Lukes - mg tablet 17:43: syndrome daily. [address] atorvastati Yes 80mg QD Take [address] [facility] (LIPITOR) 8-04 by mouth Luke s - 80 MG 17:43: daily. Medical tablet 16 [place] furosemide Yes 80mg Q.[id number] Take [address] (LASIX) 80 8-04 [id number] by mouth 3 [facility] - MG tablet [...] [facility]ukes - mg tablet 17:43: syndrome daily. [address] atorvastati Yes 80mg QD Take [address] [facility] (LIPITOR) 8-04 by mouth Luke s - 80 MG 17:43: daily. Medical tablet [address] [place] [address] furosemide 0 Yes 80mg Q.[id number] Take [address] (LASIX) 80 8-04 [id number] by mouth 3 [facility] - MG tablet [...] 09-15 by mouth. ity of tablet 20:06: [address] famotidine Yes 20mg Take 20 mg U nivers 20 mg 09-15 by mouth. ity of tablet 20:06: [address] aspirin 81 0 Yes 81mg Take 81 mg U nivers mg EC 09-15 by mouth. ity of tablet 20:06: [address] famotidine Yes 20mg Take 20 mg U nivers 20 mg 09-15 by mouth. ity of tablet 20:06: [address] balanced 0 Yes PRN, Univers salt irrig 09-15 Starting ity o f soln comb1 18:58: [place] (BSS PLUS) 00 09/15/20 at Med ical ophthalmic 1358, Branch solution Until 500 mL bag Discontinu ed, Routine, Intra-op carbachoL Yes PRN, Univers (MIOSTAT) 09-15 Starting ity of 0.01 % 18:58: Sun [place] intraocular 00 09/15/20 at Il dical injection 1358, Branch Until Discontinu ed, [...] Starting ity of soln comb1 18:58: 22:06 [facility] (BSS PLUS) 00 :51 09/15/20 at [facility] ical ophthalmic 1358, Branch solution Until Wed 500 mL bag 09/15/20 at 1706, Routine, Intra-op carbachoL 2020- No PRN, Univers (MIOSTAT) 09-15 Starting ity o f 0.01 % 18:58: 22:06 Wed [place] intraocular 00 :51 09/15/20 at Il dical injection 1358, Branch Until Sun09/15/20 at 1706, Routine, Intra-op dexamethaso 2020- No PRN, Unive rs ne 09-15 Starting ity of (DECADRON 18:58: 22:06 [facility] PHOSPHATE) 00 :51 09/15/20 at [facility] ical injection 1358, Branch Until Sun09/15/20 at 1706, Routine, Intra-op DUOVISC 2020- No PRN, Univers (DUOVISC 09-15 Starting ity of VISCO 18:58: 22:06 [facility] ELASTIC) 3 00 :51 09/15/20 at [facility] %-4 %(0.5 1358, Branch mL) 1 % Until Wed (0.55 mL) 09/15/20 at intraocular 1706, injection Routine, Intra-op neomycin-po Yes PRN, Univer s lymyxin-dex 09-15 Starting ity of amethasone 18:57: [facility] (MAXITROL) 00 09/15/20 at [facility] ical 3.5 1357, Branch mg/g-10,000 Until unit/g-0.1 Discontinu % ed, ophthalmic Routine, ointment Intra-op neomycin-po 2020- No PRN, Unive rs lymyxin-dex 09-15 Starting ity of amethasone 18:57: 22:06 [facility] (MAXITROL) 00 :51 09/15/20 at [facility] ical 3.5 1357, Branch mg/g-10,000 Until Wed unit/g-0.1 09/15/20 at % 1706, ophthalmic Routine, ointment Intra-op EPINEPHrine Yes PRN, Univer s 1:1,000 (1 09-15 Starting ity o f mg/mL) 18:53: Sun [place] (ADRENALIN) 00 09/15/20 at Il dical injection 1353, Branch Until Discontinu ed, Routine, Intra-op EPINEPHrine 2020- No PRN, Unive rs 1:1,000 (09-15 Starting ity of mg/mL) 18:53: 22:06 Sun [place] (ADRENALIN) 00 :51 09/15/20 at Il dical injection 1353, Branch Until Sun09/15/20 at 1706, Routine, Intra-op water for Yes PRN, Univers irrigation 09-15 Starting ity o f irrigation 18:50: Sun [place] solution 00 09/15/20 at Medic al 1350, Branch Until Discontinu ed, Routine, Intra-op water for 2020- No PRN, Univers irrigation 09-15 Starting ity of irrigation 18:50: 22:06 [facility] solution 00 :51 09/15/20 at Medic al 1350, Branch Until Sun09/15/20 at 1706, Routine, Intra-op Hyaluronida Yes PRN, Univer s se, Human 09-15 Starting ity of Recomb. 18:47: Sun [place] (HYLENEX) 00 09/15/20 at [facility] mendez injection 1347, Branch Until Discontinu ed, Routine, Intra-op Hyaluronida 2020- No PRN, Unive rs se, Human 09-15 Starting ity o f Recomb. 18:47: 22:06 [facility] (HYLENEX) 00 :51 09/15/20 at Medi mendez injection 1347, Branch Until Sun09/15/20 at 1706, Routine, Intra-op eye block Yes PRN, Univers syringe 09-15 Starting ity o f mL 18:45: Sun [place] 00 09/15/20 at [facility] 1345, Branch Until Discontinu ed, Intra-op eye block 2020- No PRN, Univers syringe 11 09-15 Starting ity of mL 18:45: 22:06 [facility] [place] 00 :51 09/15/20 at [facility] 1345, Branch Until Sun09/15/20 at 1706, [...] by mouth. ity of tablet 15:06: [address] famotidine Yes 20mg Take 20 mg U nivers 20 mg 7-21 by mouth. ity of tablet 15:06: [address] aspirin 81 Yes 81mg Take 81 mg U nivers mg EC 7-21 by mouth. ity of tablet 15:06: [address] famotidine Yes 20mg Take 20 mg U nivers 20 mg 7-21 by mouth. ity of tablet 15:06: [address] Carbidopa No 1 tab, PO, Me moria 25 MG / 7-21 TID, # 270 l Levodopa 13:31: tab, 2 Philip 100 MG Oral 00 Refill(s), Tablet Pharmacy: [[facility] 25-[facility] #[id number], 175.26, cm, 07/19/20 14:31:00 CDT, Height, 75.909, kg, 07/19/20 14:31:00 CDT, Weight apixaban 5 0 Yes TAKE 1 Memor ia MG Oral 7-12 TABLET BY l Tablet 20:03: MOUTH [place] [Eliquis] 00 TWICE A DAY LORazepam 0 Yes 0 Memoria 0.5 mg oral 7-12 Refill(s) l tablet 20:03: Philip 00 Carbidopa 0 Yes 1 tab, PO, Me moria 25 MG / 7-12 TID, # 90 l Levodopa 20:03: tab, 3 [place] 100 MG Oral 00 Refill(s), Tablet Pharmacy: [[facility] 25-[facility] #[id number], 175.26, cm, 07/19/20 14:31:00 CDT, Height, 75.909, kg, 07/19/20 14:31:00 CDT, Weight carbidopa-l 2020-0 Yes 1 tab, PO, [facility] evodopa 7-12 TID, # 90 [facility] - (Sinemet) 00:00: tab, 3 Medica l 25-100 mg 00 Refill(s), Cent er per tablet Pharmacy: [facility] #[id number], 175.26, cm, 07/19/20 14:31:00 CDT, Height, 75.909, kg, 07/19/20 14:31:00 CDT, Weight carbidopa-l 2020-0 Yes 1 tab, PO, [facility] evodopa 7-12 TID, # 90 [facility] - (Sinemet) 00:00: tab, 3 Medica l 25-100 mg 00 Refill(s), Cent er per tablet Pharmacy: [facility] #[id number], 175.26, cm, 07/19/20 14:31:00 CDT, Height, 75.909, kg, 07/19/20 14:31:00 CDT, Weight carbidopa-l 2020-0 Yes 1 tab, PO, [facility] evodopa 7-12 TID, # 90 [facility] - (Sinemet) 00:00: tab, 3 Medica l 25-100 mg 00 Refill(s), Cent er per tablet Pharmacy: [facility] #[id number], 175.26, cm, 07/19/20 14:31:00 CDT, [...] mouth 2 ity of tablet 00:00: (two) [place] 00 times Medical daily. Branch furosemide 2020-0 Yes 80mg Take 80 mg U nivers 80 mg 6-18 by mouth 2 ity of tablet 00:00: (two) [place] 00 times Medical daily. Branch furosemide 2020-0 Yes 80mg Take 80 mg U nivers 80 mg 6-18 by mouth 2 ity of tablet 00:00: (two) [place] 00 times Medical daily. Branch furosemide 2020-0 Yes 80mg Take 80 mg U nivers 80 mg 6-18 by mouth 2 ity of tablet 00:00: (two) [place] 00 times Medical daily. Branch furosemide 2020-0 [...] MG Oral 00 Refill(s), Tablet Pharmacy: [[facility] #[id number], 175.26, cm, 07/19/20 14:31:00 [...] by mouth 2 ity of 00:00: (two) [place] 00 times Medical daily. Branch ELIQUIS 5 2020-0 Yes 5mg Take 5 mg Uni vers mg tablet 6-11 by mouth 2 ity of 00:00: (two) [place] 00 times Medical daily. Branch ELIQUIS 5 2020-0 Yes 5mg Take 5 mg Uni vers mg tablet 6-11 by mouth 2 ity of 00:00: (two) [place] times Medical daily. Branch Eliquis 5 2020-0 [...] day, # 14 tab, 0 Refill(s), Pharmacy: [facility] #[id number] bisacodyl 2018-02 Yes 10 mg = 1 Mem oria 10 mg 1-24 supp, NE, l rectal 15:04: Daily, PRN Lilly nn suppository 00 Constipati on, # 10 supp, 0 Refill(s), Pharmacy: [facility] #[id number] Docusate 2018-02 Yes 100 mg = 1 Mem oria Sodium 100 1-24 cap, PO, l MG Oral 15:04: BID, # 60 Lilly nn Capsule 00 cap, 0 [Colace] Refill(s), Pharmacy: [facility] #[id number] bisacodyl 5 2018-02 Yes 10 mg = 2 M emoria mg oral 1-24 tab, PO, l enteric 15:04: Daily, PRN Herm ayush coated 00 Constipati tablet on, X 10 day, # 20 tab, 0 Refill(s), Pharmacy: [facility] #[id number] POLYETHYLEN 2018-02 Yes 17 gm, PO, Memoria E GLYCOL 1-24 Daily, PRN l 3350 142 15:04: Constipati Her pinon MG/ML Oral 00 on, # 255 Solution gm, 0 [Miralax] Refill(s), Pharmacy: [facility] #[id number] Lactulose 2018-02 No Notes: Memori a 667 MG/ML 1-24 (Same l Oral 01:11: as:Chronul [place] Solution 00 ac) Lactulose 2018-02 No Notes: Memori a 667 MG/ML -23 (Same l Oral 14:13: as:Chronul [place] Solution 00 ac) Dulcolax 2018-02 No Notes: Memoria Laxative -23 (Same As: l 12:41: Dulcolax, [place] 00 Bisco-Lax) Melatonin 3 2018-02 No Notes: [...] e 1-21 Tablet l 19:15: should not [place] 00 be chewed or crushed. (Same as: Protonix) Phenergan 2018-02 No Notes: Memori a 1-20 (Same as: l 00:41: Phenergan) Phenergan 2018-02 No 25 mg, Memori a -20 Route: IM, l 00:40: Q6H, Dosing Weight 74.2, kg, PRN Nausea & Vomiting, Start date: 01/14/19 18:40:00 INTERACTIVE MEDIA SPECIALIST, Duration: 30 day, Stop date: 02/13/19 18:39:00 INTERACTIVE MEDIA SPECIALIST Dulcolax 2018-02 No Notes: Memoria Laxative - [...] as: l / 20:49: Duoneb) Ipratropium 00 [place] 0.167 MG/ML Inhalant Solution Docusate 2018-02 No 100 mg = 1 Mem oria Sodium 100 1-18 cap, PO, l MG Oral 16:51: BID, 0 [place] Capsule 00 Refill(s) Famotidine 2018-02 Yes 20 mg = 1 Me moria 20 MG Oral 1-18 tab, PO, l Tablet 16:51: BID, 0 Philip 00 Refill(s) naproxen 2018-02 No 500 mg = 2 Mem oria 250 mg oral 1-18 tab, PO, l tablet 16:51: BID, 0 [place] 00 Refill(s) Dulcolax 2018-02 No Notes: Memoria [...] micki n 1-16 (Same l 07:00: as:Levaqui [place] n) Docusate 2018-02 No Notes: Memoria Sodium 100 1-15 (Same as: l MG Oral 23:00: Colace) Philip Capsule 00 (Do Not Crush) Acetaminoph 2018-02 No Notes: Do M emoria en 325 MG / 1-15 not exceed l Hydrocodone 19:50: 4gm/day of Philip Bitartrate 00 acetaminop 10 MG Oral hen. Tablet (Same as: [Boyden Boyden 10/325] 325/10) clopidogrel 2018-02 No Notes: Pepe micki 1-15 (Same As: l 15:02: Plavix) [place] Flomax 2018-02 No Notes: Memoria 1-15 (Same As: l 15:02: Flomax) Philip "Do Not Crush" Morphine 2018-02 No 2 mg, 1 Memori a 1-15 mL, Route: l 11:04: IVP, Drug form: SOLN, Q4H, Dosing Weight 74.2, kg, PRN Pain Score 7-10, Start date: 01/10/19 5:04:00 INTERACTIVE MEDIA SPECIALIST, Duration: 30 day, Stop date: 02/09/19 5:03:00 INTERACTIVE MEDIA SPECIALIST, 0 Streptococc 2018-02 No Notes: Pepe micki us 1-15 Shake well l pneumoniae 09:35: prior to Her pinon serotype 1 51 use (Same capsular as: antigen Prevnar diphtheria 13) [id number] protein conjugate vaccine / Streptococc us pneumoniae serotype 14 capsular antigen diphtheria [id number] protein conjugate vaccine / Streptococc us pneumoniae [...] l / 09:00: Duoneb) Philip Ipratropium 00 [place] 0.167 MG/ML Inhalant Solution Ondansetron 2018-02 No Notes: Pepe micki -15 (Same as: l 08:36: Zofran) [place] 00 MEDICATION WASTE Product Size: 4 mg Product Wasted: ___ mg Albuterol 2018-02 No Notes: SEE Me moria 0.83 MG/ML -15 RT l Inhalant 08:36: DOCUMENTAT Her pinon Solution 00 ION (Same as: Proventil) NS 1,000 mL 2018-02 No 1,000 mL, M emoria -15 Rate: 60 l 08:33: ml/hr, [place] 00 Infuse over: 16.7 hr, Route: IV, Dosing Weight 74.2 kg, Total Volume: 1,000, Start date: 01/10/19 2:33:00 INTERACTIVE MEDIA SPECIALIST, Duration: 1 doses or times, Stop date: 01/10/19 19:14:00 INTERACTIVE MEDIA SPECIALIST, 1.91, m2, 0 Morphine 2018-02 No Notes: Memoria 1-15 (Same l 07:20: as:MORPhin [place] 00 e Sulfate) Zofran 2018-02 No Notes: [...] 0.9% 1-15 (Same as: l 04:20: BD [place] 00 Posiflush) Sodium 2018-02 No 1,000 mL, Memori a Chloride 1-15 2,000 l 0.9% 04:20: ml/hr, [place] (Bolus) IV 00 Infuse Over: 0.5 hr, Route: IV, 1,000, Drug form: INJ, ONCE, Priority: STAT, Dosing Weight 74.2 kg, Start date: 01/09/19 22:20:00 INTERACTIVE MEDIA SPECIALIST, Stop date: 01/09/19 22:20:00 INTERACTIVE MEDIA SPECIALIST, 0 fluoride, 2018-02 Yes 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 n 1.1 % 00 of scalp [place] dental teeth with cream cream and spit [...] 15:50:00 147 mm[Hg] Univer sity of pressure [place] [facility] Diastolic blood 2020-12-01 15:50:00 71 mm[Hg] Unive rsity of pressure [place] [facility] Respiratory rate 2020-12-01 15:50:00 18 /min Univ ersity of [place] [facility] Oxygen saturation in 2020-12-01 15:50:00 100 /min University of Arterial blood by [place] [employer] mendez Pulse oximetry Branch Body temperature 2020-12-01 15:45:00 36.22 Jessica Univ ers[facility] [place] [facility] Heart rate 2020-12-01 13:51:00 68 /min [facility] [place] [facility] Body height 2020-11-18 14:58:00 175.3 cm [facility] [place] [facility] Body weight 2020-11-18 14:58:00 76.2 kg [facility] [place] [facility] BMI 2020-11-18 14:58:00 24.80 kg/m2 [facility] [place] [facility] Systolic blood 2020-12-01 15:50:00 147 mm[Hg] Univer sity of pressure [place] [facility] Diastolic blood 2020-12-01 15:50:00 71 mm[Hg] Unive rsity of pressure [place] [facility] Respiratory rate 2020-12-01 15:50:00 18 /min Univ ersity of [place] [facility] Oxygen saturation in 2020-12-01 15:50:00 100 /min University of Arterial blood by [place] [employer] mendez Pulse oximetry Branch Body temperature 2020-12-01 15:45:00 36.22 Jessica Univ [facility] [place] [facility] Heart rate 2020-12-01 13:51:00 68 /min [facility] [place] [facility] Body height 2020-11-18 14:58:00 175.3 cm [facility] [place] [facility] Body weight 2020-11-18 14:58:00 76.2 kg [facility] [place] [facility] BMI 2020-11-18 14:58:00 24.80 kg/m2 [facility] [place] [facility] HEIGHT 2020-09-28 12:51:00 175.3 cm WEIGHT 2020-09-28 12:51:00 74.844 kg WEIGHT 2020-09-28 06:00:00 74.9 kg WEIGHT 2020-09-27 06:00:00 72.5 kg HEIGHT 2020-09-26 03:52:00 175.3 cm WEIGHT 2020-09-26 03:52:00 75 kg Diastolic blood 2020-09-15 19:30:00 75 mm[Hg] Unive rsity of pressure [place] [facility] Heart rate 2020-09-15 19:30:00 59 /min [facility] [place] [facility] Oxygen saturation in 2020-09-15 19:30:00 98 /min University of Arterial blood by [facility] Pulse oximetry Branch Systolic blood 2020-09-15 19:30:00 146 mm[Hg] Univer sity of pressure [place] [facility] Respiratory rate 2020-09-15 19:21:00 24 /min Univ ersity [facility] [place] [facility] Body temperature 2020-09-15 19:15:00 36.17 Jessica [facility] [place] [facility] Body height 2020-09-06 18:10:00 175.3 cm [facility] [place] [facility] Body weight 2020-09-06 18:10:00 76.3 kg [facility] [place] [facility] BMI 2020-09-06 18:10:00 24.83 kg/m2 [facility] [place] [facility] Diastolic blood 2020-09-15 19:30:00 75 mm[Hg] Unive rsity of pressure [place] [facility] Heart rate 2020-09-15 19:30:00 59 /min [facility] [place] [facility] Oxygen saturation in 2020-09-15 19:30:00 98 /min University of Arterial blood by [facility] Pulse oximetry Branch Systolic blood 2020-09-15 19:30:00 146 mm[Hg] Univer sity of [facility] Respiratory rate 2020-09-15 19:21:00 24 /min Univ ersity [facility] [place] [facility] Body temperature 2020-09-15 19:15:00 36.17 Jessica [facility] [place] [facility] Body height 2020-09-06 18:10:00 175.3 cm [facility] [place] [facility] Body weight 2020-09-06 18:10:00 76.3 kg [facility] [place] [facility] BMI 2020-09-06 18:10:00 24.83 kg/m2 [facility] [place] [facility] Systolic blood 2020-09-15 19:30:00 146 mm[Hg] Univer sity of pressure [place] [facility] Diastolic blood 2020-09-15 19:30:00 75 mm[Hg] Unive rsity of pressure [place] [facility] Heart rate 2020-09-15 19:30:00 59 /min [facility] [place] [facility] Oxygen saturation in 2020-09-15 19:30:00 98 /min University of Arterial blood by [place] [employer] mendez Pulse oximetry Branch Respiratory rate 2020-09-15 19:21:00 24 /min Univ [facility] [place] [facility] Body temperature 2020-09-15 19:15:00 36.17 Jessica [facility] [place] [facility] Body height 2020-09-06 18:10:00 175.3 cm [facility] [place] [facility] Body weight 2020-09-06 18:10:00 76.3 kg [facility] [place] [facility] BMI 2020-09-06 18:10:00 24.83 kg/m2 [facility]i ty of [place] [facility] Branch Systolic blood 2020-09-15 19:30:00 146 mm[Hg] [facility] [place] [facility] Diastolic blood 2020-09-15 19:30:00 75 mm[Hg] [facility]ive [facility] [place] [facility] Heart rate 2020-09-15 19:30:00 59 /min [facility] [place] [facility] Oxygen saturation in 2020-09-15 19:30:00 98 /min University of Arterial blood by [place] [employer] mendez Pulse oximetry Branch Respiratory rate 2020-09-15 19:21:00 24 /min [facility] [place] [facility] Body temperature 2020-09-15 19:15:00 36.17 Jessica [facility] [place] [facility] Body height 2020-09-06 18:10:00 175.3 cm [facility] [place] [facility] Body weight 2020-09-06 18:10:00 76.3 kg [facility] [place] [facility] BMI 2020-09-06 18:10:00 24.83 kg/m2 [facility] [place] [facility] Systolic blood 2021-03-24 21:29:38 101 [...] Systolic (mm Hg) 2020-12-07 14:30:00 Pepe rial Enola Diastolic (mm Hg) 2020-12-07 14:30:00 [facility] orial Philip Heart Rate 2020-12-07 14:30:00 [facility] Philip Respitory Rate 2020-12-07 14:30:00 Memori al Enola Systolic blood 2020-09-29 11:17:00 132 mm[Hg] [facility] Diastolic blood 2020-09-29 11:17:00 61 mm[Hg] [facility] S t [facility] Heart rate 2020-09-29 11:17:00 78 /min [facility] Body temperature 2020-09-29 11:17:00 36.44 Jessica [facility] Respiratory rate 2020-09-29 11:17:00 20 /min [facility] Oxygen saturation in 2020-09-29 11:17:00 97 /min [facility] Arterial blood by Medical Ce nter Pulse oximetry Body height 2020-09-28 12:51:00 175.3 cm [facility] Body weight 2020-09-28 12:51:00 74.844 kg [facility] BMI 2020-09-28 12:51:00 24.37 kg/m2 [facility] Systolic (mm Hg) 2020-09-06 19:00:00 Pepe rial Enola Diastolic (mm Hg) 2020-09-06 19:00:00 Mem orial Philip Heart Rate 2020-09-06 19:00:00 [facility] Respitory Rate 2020-09-06 19:00:00 Memori al Philip Systolic (mm Hg) 2020-08-09 20:36:00 Pepe rial Enola Diastolic (mm Hg) 2020-08-09 20:36:00 Mem orial Philip Heart Rate 2020-08-09 20:36:00 [facility] Respitory Rate 2020-08-09 20:36:00 Memori al [place] Systolic (mm Hg) 2020-07-19 19:31:00 Pepe rial Philip Diastolic (mm Hg) 2020-07-19 19:31:00 Mem orial Enola Heart Rate 2020-07-19 19:31:00 [facility] Respitory Rate 2020-07-19 19:31:00 Mem[facility] al [facility] Height 2020-07-19 19:31:00 175.26 cm [facility] Weight 2020-07-19 19:31:00 [facility] BMI Calculated 2020-07-19 19:31:00 Memori al [facility] Temperature Oral (F) 2019-01-19 21:26:00 97.6 F [facility] Heart Rate 2019-01-19 21:26:00 [facility] Respitory Rate 2019-01-19 21:26:00 Memori al [place] Systolic (mm Hg) 2019-01-19 21:26:00 Pepe rial Enola Diastolic (mm Hg) 2019-01-19 21:26:00 Mem orial Enola Temperature Oral (F) 2019-01-19 17:23:00 97.9 F [facility] Heart Rate 2019-01-19 17:23:00 [facility] Respitory Rate 2019-01-19 17:23:00 Memori al [place] Systolic (mm Hg) 2019-01-19 17:23:00 Pepe rial Enola Diastolic (mm Hg) 2019-01-19 17:23:00 Mem orial Enola Temperature Oral (F) 2019-01-19 13:47:00 97.6 F [facility] Heart Rate 2019-01-19 13:47:00 [facility] Respitory Rate 2019-01-19 13:47:00 Ada velázquez Enola Systolic (mm Hg) 2019-01-19 13:47:00 Pepe bejarano Enola Diastolic (mm Hg) 2019-01-19 13:47:00 Eugenia hammondal [facility] Height 2019-01-10 12:17:00 170.18 cm [facility] Weight 2019-01-10 03:42:00 [facility] Philip Procedures Procedure Date / Time Performing [...] Diego MD 11:21:00 MAGNESIUM LEVEL 2021-03-23 Britany iDego MD 11:21:00 ALANINE AMINOTRANSFERASE 2021-03-23 Britany Diego [...] 10:58:00 LACTATE DEHYDROGENASE 2021-03-20 Britany Diego MD Draron on 10:58:00 URIC ACID 2021-03-20 Britany Diego [...] Diego MD 11:22:00 BLOOD UREA NITROGEN 2021-03-14 Britayn Diego MD 11:22:00 SERUM CREATININE 2021-03-14 Britany [...] Diego MD on 10:53:00 URIC ACID 2021-03-13 Briatny Diego MD 10:53:00 PHOSPHORUS LEVEL 2021-03-13 Britany [...] Britany Diego MD 08:43:00 ANION GAP 2021-03-10 Britnay Diego MD 08:43:00 CLOT EXPIRATION DATE 2021-03-10 [...] MD 10:35:00 .GLOMERULAR FILTRATION RATE 2021-03-04 Britany Deigo MD 10:35:00 ANION GAP 2021-03-04 Britany Diego MD 10:35:00 CLOT EXPIRATION DATE 2021-03-04 MD Darron Springer on 10:35:00 Sanjay TMP INTERPRETATION ANTIBODY 2021-03-04 MD Rishi Springer SCREEN NEGATIVE 10:35:00 Sanjay HP FC FLOW CYTOMETRY BLOOD 2021-03-03 MD Rishi Springer COLLECTION 23:14:00 Sanjay HP FC LYMPHOMA B KAPPA/LAMBDA 2021-03-03 MD Rishi Springer INTERPRETATION AND REPORT 23:14:00 Sanjay POTASSIUM LEVEL 2021-03-03 Britany Diego MD 23:11:00 NE DIAGNOSTIC LUMBAR SPINAL 2021-03-03 Britany Diego MD [...] SMEAR 2021-03-03 Britany Diego MD 19:41:00 CYTOLOGY NON-CLAY MINER 2021-03-03 Britany Diego MD INTERPRETATION 19:28:00 Results [...] EKG, 12-LEAD (PORTABLE) 2021-02-26 Arielle Ramirez MD [facility] 00:00:00 TROPONIN T 2021-02-25 Willem English [...] nderson 23:20:00 BETA 2 MICROGLOBULIN 2021-02-23 Willem Englsih MD 23:20:00 VITAMIN D 25 HYDROXY LEVEL [...] MD 23:20:00 HEPATITIS B CORE TOTAL 2021-02-23 rBitany Diego MD Willisjax campos ANTIBODY 23:20:00 HEPATITIS [...] INTERPRETATION 00:00:00 PHACOEMULSIFICATION OF 2020-12-01 Robin Bradley [facility] CATARACT WITH INTRAOCULAR 15:03:00 Medica l Branch LENS IMPLANT ASSIGNMENT OF BENEFITS 2020-11-29 Doctor Unassigned, [facility] 20:50:21 [place] [facility] POCT-GLUCOSE METER 2020-09-29 Hasan, Zaheer Ali [facility] - 11:24:00 [facility] POCT-GLUCOSE METER 2020-09-29 Hasan, Zaheer Ali [facility] - 07:37:00 [facility] BASIC METABOLIC PANEL (7) 2020-09-29 Jessica, Ramesh [facility] - 05:02:00 [facility] CBC (HEMOGRAM ONLY) 2020-09-29 Jessica, Ramesh [facility] - 05:02:00 [facility] MAGNESIUM 2020-09-29 Jessica, Ramesh [facility] - 05:02:00 [facility] POCT-GLUCOSE METER 2020-09-28 Hasan, Zaheer Ali [facility] - 22:29:00 [facility] US ABDOMEN LIMITED 2020-09-[address] [facility] - 15:36:00 [facility] APTT 2020-09-28 Jessica, Ramesh [facility] - 10:58:00 [facility] POCT-GLUCOSE METER 2020-09-28 Hasan, Zaheer Ali [facility] - 07:47:00 [facility] BASIC METABOLIC PANEL (7) 2020-09-28 Jessica, Ramesh [facility] - 06:37:00 [facility] CBC (HEMOGRAM ONLY) 2020-09-28 Jessica, Ramesh [facility] - 06:37:00 [facility] MAGNESIUM 2020-09-28 Jessica, Ramesh [facility] - 06:37:00 [facility] APTT 2020-09-28 Ramesh Lopez [facility] - 00:27:00 [facility] POCT-GLUCOSE METER 2020-09-27 Juanyolimpia Zaheer Smith [facility] - 16:39:00 [facility] POCT-GLUCOSE METER 2020-09-27 Juanyolimpia Zaheer Smith [facility] - 11:16:00 [facility] 2D ECHO W/ DOPPLER 2020-09-27 Jose Rafael [facility] - (CW/PW/COLOR) 09:45:35 [facility] POCT-GLUCOSE METER 2020-09-27 Diana Zaheer Smith [facility] - 08:43:00 [facility] SARS-COV2/RT-PCR (SLHS & REF 2020-09-27 Jessica, [facility] LABS[facility] 04:13:00 [facility] BASIC METABOLIC PANEL (7) 2020-09-27 Jessica, [facility] - 04:13:00 [facility] CBC (HEMOGRAM ONLY) 2020-09-27 Ramesh Lopez [facility] - 04:13:00 [facility] MAGNESIUM 2020-09-27 [facility], [facility] - 04:13:00 [facility] IRON, TIBC, % SAT. (WITHOUT 2020-09-27 Diana Zaheer Smith [facility] - FERRITIN) 04:13:00 [facility] FERRITIN 2020-09-27 Diana Zaheer Smith [facility] - 04:13:00 [facility] VITAMIN B12 AND FOLATE 2020-09-27 Diana Zaheer [facility] - 04:13:00 [facility] POCT-GLUCOSE METER 2020-09-26 Diana Zaheer Smith [facility] - 23:06:00 [facility] APTT 2020-09-26 Jessica Ramesh [facility] - 12:26:00 [facility] ABORH, MANUAL 2020-09-26 Abril Lucero [facility] - 06:46:00 [facility] XR CHEST 1 VIEW PORTABLE / 2020-09-26 Jor[facility]arrubias [facility] 05:40:00 [facility] CBC W/PLT COUNT & AUTO 2020-09-[address] [facility] - DIFFERENTIAL 04:29:00 [facility] COMPREHENSIVE METABOLIC PANEL 2020-09-[address] [facility] - 04:29:00 [facility] HEMOGLOBIN A1C 2020-09-[facility] 04:29[facility] HIGH SENSITIVITY TROPONIN I 2020-09-26 [facility] 04:29:00 [facility] LIPID PANEL 2020-09-26 [facility] 04:29:00 [facility] CBC W/PLT COUNT & AUTO 2020-09-[facility] DIFFERENTIAL 04:29:00 [facility] B-TYPE NATRIURETIC FACTOR 2020-09-26 [facility] 04:29:00 [facility] TYPE AND SCREEN, AUTOMATED 2020-09-26 [facility] 04:29:00 [facility] PROTHROMBIN TIME/INR 2020-09-26 [facility] 04:28:00 [facility] APTT 2020-09-26 [facility] 04:28:00 [facility] ECG 12-LEAD 2020-09-26 Unknown, Hl7 Doctor VALDO [facility] - 03:44:53 [facility] ECG 12-LEAD 2020-09-[address] [facility] - 03:44:53 [facility] PHACOEMULSIFICATION OF 2020-09-15 Robin Bradley [facility] CATARACT WITH INTRAOCULAR 18:32:00 Medica l Branch LENS IMPLANT CBC WITH DIFF 2020-09-13 Robin Bradley [facility] 19:46:00 Medical Branch COVID-19 (ID NOW RAPID 2020-09-13 Robin Bradley [facility] TESTING) 19:40:00 Medical Branch ASSIGNMENT OF BENEFITS 2020-09-13 Doctor Unassigned, [facility] 19:32:02 [place] [facility] Plan of Care Planned Activity [...] Department ID 2021-03-28 Outpatient [place] [facility] [id number] 10:33:59 PROVIDER Darron romero 2021-03-23 Outpatient [facility] [id number] 12:50:51 [id number] [facility] 2021-02-24 Outpatient [place] HERCULES MDA [id number] 11:43:32 PROVIDER Darron romero 2020-12-[address] [facility] OPH [id number] Univers 19:23:53 ROBIN [facility] 2020-12-[address] [facility] OPH [id number] Univers 09:11:23 ROBIN [facility] 2020-09-26 Inpatient ER ORDOÑEZ-CAM [facility] Cardiology [id number] [facility] 03:36:00 FRANKY MANDUJANO 2021-02-23 2021-03-24 Inpatient UR SCHMIDT, MDA Lymphoma/My [id number] 13:41:00 19:21:00 Kiran romero 2021-03-24 2021-03-24 Inpatient EL SCHMIDT, MDA MDA [id number] 10:54:08 11:20:43 SONDRA romero 2021-03-22 2021-03-22 Inpatient SHEELA DIEGO MDA MDA [id number] 16:47:23 17:01:06 MAY Darron romero 2021-03-20 2021-03-20 Inpatient SHEELA DELATORRE MDA MDA [id number] 18:48:13 19:17:20 BROOKS romero 2021-03-16 2021-03-16 Inpatient SHEELA DELATORRE MDA MDA [id number] 12:06:37 12:30:56 BROOKS romero 2021-03-09 2021-03-09 Ambulatory nullFlavo MNA [id number] Memoria 20:15:00 20:15:00 Pre-Reg r Neurology 05 l Brinnonkezia Palacios 2021-03-07 2021-03-07 Outpatient SHEELA LEGER MDA MDA [id number] 06:00:00 23:59:00 MYA romero 2021-03-04 2021-03-04 Inpatient SHEELA LEGER MDA MDA [id number] 11:44:00 11:44:02 MYA romero 2021-03-03 2021-03-03 Inpatient SHEELA DIEGO MDA MDA [id number] 13:01:47 15:50:52 MAY Darron romero 2021-03-02 2021-03-02 Inpatient SHEELA LEGER MDA MDA [id number] 13:09:01 13:09:03 MYA romero 2021-03-02 2021-03-02 Inpatient SHEELA DIEGO MDA MDA [id number] 07:37:26 11:28:07 MAY Darron romero 2021-03-01 2021-03-01 Inpatient SHEELA ENGLISH MDA MDA [id number] 05:48:01 06:04:05 [facility] Willis so n 2021-02-28 2021-02-28 Inpatient SHEELA ENGLISH [facility] [id number] 13:09:08 13:14:44 [facility] Willis so n 2020-12-07 2020-12-08 Outpatient nullFlavo MNA [id number] Memoria 14:30:00 04:59:59 [facility] 2020-12-07 2020-12-07 Ambulatory nullFlavo MNA [id number] Memoria 15:45:00 15:45:00 [facility] 2020-12-01 2020-12-01 [facility] [id number] Univers 08:45:00 11:16:00 Encounter Robin Langford [id number] [place] [id number] [facility] 020 Branch 2020-12-01 2020-12-01 Surgery [facility] 1.2.840.114 [id number] Univers 10:08:00 10:50:00 Robin Langford [id number] [id number] [id number] [facility] 020 Branch 2020-11-29 2020-11-29 Laboratory Only, Adc Test [facility] 1.2.840. 114 [id number] Univers 15:49:32 16:04:32 Only Robin Bradley 350.1.13.1 0 [place] [id number] [facility] 353 Branch 2020-11-29 2020-11-29 Outpatient R [facility] [id number] Univers 15:15:00 15:15:00 [id number] ity [facility] 2020-11-29 2020-11-29 Outpatient R [facility] [id number] Univers 15:15:00 15:15:00 ity of [facility] 2020-11-29 2020-11-29 Orders Doctor ASHLEY 1.2.840.114 [id number] Univers 00:00:00 00:00:00 Only Unassigned, [place] [id number] ity of [place] [facility] 4.2.7.2.686 Hernán as [id number] [place] [address] Branch 2020-11-09 2020-11-09 Outpatient R [facility] [id number] Univers 12:00:00 12:00:00 [id number] ity [facility] 2020-09-26 2020-09-29 [facility] Franky Kenyon [facility] [id number] [facility] 03:36:00 17:42:00 Encounter Zaheer Ortiz [facility] 2020-09-26 2020-09-26 Outpatient [facility] [id number] [facility] 00:00:00 23:59:00 Rosamaria e 2020-09-26 2020-09-26 Orders [facility] [id number] 00:00:00 00:00:00 Only [facility] 2020-09-26 2020-09-26 Travel [facility] [id number] [facility] 00:00:00 00:00:00 [facility] 2020-09-24 2020-09-24 Outpatient [facility] [id number] [facility] 00:00[facility]00 00:00:00 [facility] Z[facility] 2020-09-15 2020-09-15 [facility] 1.2.840.114 [id number] Univers 14:11:00 14:51:00 Robin Langford 350.1.13.10 [place] [id number] [place] [address] Branch 2020-09-15 2020-09-[address] [facility] 1.2.840.114 [id number] 14:11:00 14:51:00 [place] 350.1.13.10 [place] 4.2.7.2.686 Surgical [id number] [place] 020 2020-09-15 2020-09-15 [facility] [id number] Univers 12:25:00 14:50:00 Encounter Robin Fay Primitivo 350.1.13.10 [place] [id number] [facility] 071 Branch 2020-09-15 2020-09-15 [facility] [id number] 12:25:00 14:50:00 Encounter Robin Sumeet Primitivo 350.1.13.10 [place] 4.2.7.2.686 Surgical [id number] [place] 071 2020-09-13 2020-09-13 Outpatient R [facility] [id number] Univers 15:15:00 15:15:00 [id number] ity of [facility] 2020-09-13 2020-09-13 Hospital Chief Executive Officer Sharona Pretty Lab Main [facility] 1.2.8 40.114 [id number] Univers 14:29:04 14:44:04 Visit Robin Bradley 350.1.13.1 0 [place] Profess[place] [id number] Il dical [address] 2020-09-13 2020-09-13 Hospital Chief Executive Officer Sharona Pretty [facility] 1.2.840.114 [id number] 14:29:04 14:44:04 Visit Lab Main Primitivo 350.1.13.10 [place] 4.2.7.2.686 Professio [id number] [address] 2020-09-13 2020-09-[address] [facility] 1.2.840. 114 [id number] Univers 14:17:45 14:32:45 Only Kirk Robin Langford 350.1.13.1 0 [place] [id number] [facility] [address] 2020-09-13 2020-09-13 Laboratory Only, Adc [facility] 1.2.840.114 [id number] 14:17:45 14:32:45 Only Test [place] 350.1.13.10 [place] 4.2.7.2.686 [place] [id number] 353 2020-09-13 2020-09-13 Outpatient Angi BRADLEY [facility] [id number] Univers 14:00:00 14:00:00 [facility] 2020-09-13 2020-09-13 Orders Doctor ASHLEY 1.2.840.114 [id number] Univers 00:00:00 00:00:00 Only Unassigned, [place] 350.1.13.10 ity [place] [facility] 4.2.7.2.686 [facility] [id number] [facility] [address] 2020-09-13 2020-09-13 Orders Doctor ASHLEY 1.2.840.114 [id number] 00:00:00 00:00:00 Only Unassigned, [place] 350.1.13.10 [place] [facility] 4.2.7.2.686 [id number] 2020-09-06 2020-09-07 Outpatient nullFlavo MNA [id number] Memoria 19:00:00 04:59:59 r Neurology 02 l Corwin Palacios 2020-08-20 2020-08-20 Outpatient Angi BRADLEY [facility] [id number] Univers 15:45:00 15:45:00 ROBIN [facility] 2020-08-11 2020-08-11 Outpatient [facility] [id number] [facility] 2020-08-09 2020-08-10 Outpatient nullFlavo MNA [id number] Memoria 20:00:00 04:59:59 r Neurology 01 l Corwin Palacios 2020-08-03 2020-08-03 [facility] [id number] [facility] 2020-07-28 2020-07-28 Outpatient [facility] [id number] [facility] 2020-07-19 2020-07-20 Outpatient soledadFlavo [facility] [id number] Memoria 19:30:00 04:59:59 r Neurology 00 l Brinnon Philip 2020-07-13 2020-07-13 Outpatient [facility] [id number] [facility] 2020-07-05 2020-07-05 Outpatient [facility] [id number] [facility] 2020-06-29 2020-06-29 Outpatient [facility] [id number] [facility] 2020-06-25 2020-06-25 [facility] [id number] [facility] 2020-06-24 2020-06-24 [facility] [id number] [facility] 2019-01-10 2019-01-20 Inpatient Simba Yoder [id number] Memoria 03:18:46 00:08:00 r Philip 00 l Wickes Lilly nn 2019-01-10 2019-01-10 Inpatient E MHFB [...] electronically signed by Pathologist:Bryan Alvarado MD, PhD #[id number] Calcofluor Stain (test code = 658-5) No Fungi seen in direct smearT est performed by fluorescent stain methodology. GRABIEL (test code = GRABIEL) Cultures are held for 4 weeks before finalization. MD BlackwellAnion [id number] 12:40:23 Test Item Value Reference Range Interpretation Comments Anion Gap (test code 10 See_Comment [Autom ated message] The = 0195) system which ge nerated this result transmit valentina reference range : 4 - 14 mEq/L. The refe rence range was not used to interpret this result as normal/abnormal . MD BlackwellChloride [id number] 12:40:22 Test Item Value Reference Range Interpretation Comments Chloride (test code = 103 See_Comment [Auto mated message] The 6320) system which ge nerated this result tra nsmitted reference range : 98 - 107 mEq/L. The refe rence range was not u sed to interpret this result as normal/abnormal . MD Bl[id number] 12:40:21 Test Item Value Reference Range Interpretation Comments Potassium Lvl (test 3.8 See_Comment [Automa valentina message] The code = 6854) system which ge nerated this result tra nsmitted reference range : 3.5 - 5.1 mEq/L. The reference range was not u sed to interpret this result as normal/abnormal . MD BlackwellSodium [id number] 12:40:20 Test Item Value Reference Range Interpretation Comments Sodium Lvl (test code 138 See_Comment [Auto mated message] The = 9789) system which ge nerated this result tra nsmitted reference range : 136 - 145 mEq/L. The refe rence range was not used to interpret this result as normal/abnormal . MD BlackwellFractionated [id number] 12:40:19 Test Item Value Reference Range Interpretation [...] 28 g/L. [Automate d message] The system [employer] generated this result transmitted ref erence range: [...] 0.0-0.9 code = 5095) MD BlackwellGlomerular Filtration [id number] 12:40:18 Test Item Value Reference Range Interpretation [...] failure <15 [Automa valentina message] The system [employer] generated this result tra nsmitted reference range [...] failure <15 [Automa valentina message] The system [employer] generated this result tra nsmitted reference range : >=60 mL/min/1.73 sq. m. The reference range was not used to interpret th is result as normal/abnormal . MD BlackwellUric [id number] 12:40:17 Test Item Value Reference Range Interpretation Comments Uric Acid (test code = 7955) 2.6 mg/dL 3.4-7.0 L Lab Interpretation (test code = Abnormal 23594-7) MD BlackwellMagnesium [id number] 12:40:15 Test Item Value Reference Range Interpretation Comments Magnesium (test code = 6359) 1.9 mg/dL 1.6-2.6 MD BlackwellGlucose, [id number] 12:40:14 Test Item Value Reference Range Interpretation Comments Glucose Random (test 95 mg/dL 70-199 Effecti ve 09/22/15, the code = 9360) glucose referen ce intervals have been updated based o n [place] [employer] marlene delines (Standards of M edical Care in Diabete s 2016. Diabetes Care 2 016; 39: S13-S22).Fastin g blood glucose:Normal: 70-99 mg/dLImpaired f asting glucose (increa sed risk for diabetes or pre-diabetes): 100-125 mg/dLDiabetes m ellitus: >/=126 mg/dL Ra ndom blood glucose:N ormal: 70-199 mg/dLNot e: Random glucose >100 mg /dL is associated with increased risk for diabetes MD BlackwellAlkaline [id number] 12:40:13 Test Item Value Reference Range Interpretation Comments Alk Phos (test code = 4768) 96 U/L 40-129 MD BlackwellPhosphorus [id number] 12:40:12 Test Item Value Reference Range Interpretation Comments Phosphorus (test code = 6817) 3.0 mg/dL 2.5-4.5 MD BlackwellAlanine [id number] 12:40:11 Test Item Value Reference Range Interpretation Comments ALT (test code = 5 U/L See_Comment [Automated message] The 4872) system which ge nerated this result transmit valentina reference range : <=41. The reference range was not used to interpr et this result as abbey l/abnormal. MD [id number] 12:40:10 Test Item Value Reference Range Interpretation Comments LDH (test code = 6111) 444 U/L 135-225 H Resul ts greater than 1651 U/L may no t be reliable due to matrix effect w ith extended diluti on as it exceeds the sheep and wheat farmer s recommended l imit. Caution should be exercised when interpreting rojas ch values and done in conjunction wit clinical contex t. Lab Interpretation (test Abnormal code = 50029-2) MD Blackwell.Serum [id number] 12:40:09 Test Item Value Reference Range Interpretation Comments Creatinine (test code = 5399) 0.60 mg/dL 0.67-1.17 L Lab Interpretation (test code = Abnormal 50457-4) MD BlackwellCalcium Oadfx1599-44-67 12:40:08 Test Item Value Reference Range Interpretation Comments Calcium Lvl (test code = 5258) 8.8 mg/dL 8.4-10.2 MD BlackwellQnyrgedjXUY8214-78-26 12:40:07 Test Item Value Reference Range Interpretation Comments BUN (test code = 5055) 6 mg/dL 6-23 MD BlackwellAlbumin Kncqx2009-10-73 12:40:06 Test Item Value Reference Range Interpretation Comments Albumin Lvl (test code = 2.7 See_Comment L [A utomated message] 8119) The system [employer] generated this result transmitted ref erence range: 3.5 - 5. 2 gm/dL. The refe rence range was not u sed to interpret this result as normal/abnor mal. Lab Interpretation (test Abnormal code = 01192-1) MD BlackwellAspartate Plnlduxkcefuuuuw0530-84-41 12:40:05 Test Item Value Reference Range Interpretation Comments AST (test code = 23 U/L See_Comment [Automated message] The 5415) system which ge nerated this result transmit valentina reference range : <=40. The reference range was not used to interpr et this result as abbey l/abnormal. MD BlackwellCarbon Dioxide Qntxp0201-16-43 12:40:04 Test Item Value Reference Range Interpretation Comments CO2 (test code = 25 See_Comment [Automated message] The 5227) system which ge nerated this result transmit valentina reference range : 22 - 29 mEq/L. The refe rence range was not used to interpret this result as normal/abnormal . MD BlackwellLkzuxmshJbppedahlugm1178-80-02 11:49:05 Test Item Value Reference Range Interpretation Comments Neutrophil % (test code = 64.2 % 42.0-66.0 71392-7) Lymphocyte % (test code = 19.8 % 24.0-44.0 L 737-7) Monocyte % (test code = 12.5 % 2.0-7.0 H 744-3) Eosinophil % (test code = 2.7 % 1.0-4.0 713-8) Basophil % (test code = 0.4 % 0.0-1.0 707-0) IGRE % (test code = 0.4 % 0.0-0.4 IGRE % c ount 24812-0) includes Metamyelocytes, Myelocytes, and Promyelocytes. Neutrophil Abs (test code 1.69 K/uL 1.70-7.30 L = 753-4) Lymphocyte Abs (test code 0.52 K/uL 1.00-4.80 L = 732-8) Monocyte Abs (test code = 0.33 K/uL 0.08-0.70 743-5) Eosinophil Abs (test code 0.07 K/uL 0.04-0.40 = 712-0) Basophil Abs (test code = 0.01 K/uL 0.00-0.10 705-4) IG Abs (test code = 0.01 K/uL 0.00-0.04 60854-2) Lab Interpretation (test Abnormal code = 72325-8) MD Blackwell.GYW7672-86-03 11:49:01 Test Item Value Reference Range Interpretation Comments WBC (test code = 2.6 K/uL 4.0-11.0 L 6690-2) RBC (test code = 789-8) 2.95 See_Comment L [Au tomated message] The system [employer] generated this result transmitted ref erence range: 4.50 - 6 .00 M/uL. The refer ence range was not u sed to interpret this result as normal/abnor mal. Hgb (test code = 718-7) 8.1 See_Comment L [Au tomated message] The system [employer] generated this result transmitted ref erence range: [...] See_Comment [Automate d message] 786-4) The system [employer] generated this result transmitted ref erence range: 31.0 - 3 6.0 gm/dL. The refe rence range was not u sed to interpret this result as normal/abnor mal. RDW-SD (test code = 50.9 fL 35.1-46.3 H 70700-4) RDW-CV (test code = 15.9 % 12.0-15.5 [...] cell differential. [Automated mess age] The system [employer] generated this result transmitted ref erence range: <=0.0. T he reference range was not used to int erpret this result as normal/abnormal . Lab Interpretation Abnormal (test code = 94891-5) MD BlackwellCOTREVORD-19 (SARS-CoV-2) PCR-Asymptomatic [id number] 07:20:38 Test Item Value Reference Range Interpretation Comments COVID19 (SARS Not Detected Not Detected CoV-2) Result (test code = ____[place] a 62219-3) qualitative reverse-transcr iptase polymerase winnie n reaction [...] patients provid ed by the manufacture r ([employer]) c an be reviewed at:https://www. fda.go v/media/449061/ downlo ad. A fact shee t for Health Care pro viders is provided by the sheep and wheat farmer ([employer]) and can be reviewed at: https://www.fda .gov/m edia/336917/michael nload Results must be interpreted wit hin [...] were verified by the Microbiology Laboratory at [facility], CLIA Accreditation # : [id number] and CAP Accreditation # : [id number]. COVID19 SARS TRACK OILER Swab Source (test code = 71283) COVID19 SARS Inpatient Indication (test Admission code = 23413) GRABIEL (test code = Nosocomial weekly GRABIEL) swab per ID MD BlackwellTMP Interpretation Antibody Screen Lgqmddor6134-42-28 15:18:28 Test Item Value Reference Range Interpretation Comments TMP Auto Neg At the present ABSC Interp time, patient (test code = plasma shows no ____JAIMIE NOVA MD - 7535) evidence of RBC [id number] d by: JAIMIE alloantibodies. MD Rip LOPEZ 42124Svjbcomp D ate/Time: 03.22.2021 9:18 AM INTERACTIVE MEDIA SPECIALIST Transcribed Rajendra e/Time: 03.22.2021 9:18 AM CSTElectronical [place] By: [place] [id number] on 03.22 9:18 AM C MD BlackwellAntibody Bhqegc4006-47-17 14:41:21 Test Item Value Reference Range Interpretation Comments ABSC. (test code = 890-4) Negative ABSC MD BlackwellIkvpriyhQOZBq9032-24-05 14:38:03 Test Item Value Reference Range Interpretation Comments ABORh. (test code = 882-1) B POS MD BlackwellClot Expiration Pxon7354-91-42 14:38:00 Test Item Value Reference Range Interpretation Comments T & S Expiration (test code = 03/25/2021 5318) MD BlackwellParaneoplastic Autoantibody Eval, [id number] 18:04:05 Test Item Value Reference Range Interpretation Comments Para Eval See Footnote No informative autoantibodies Interpretati were detected i n on, CSF theParaneoplast ic Evaluation. (test code = However, a nega tive result 77104-5) doesnot exclude neurological autoimmunity wi th or withoutassociat ed neoplasia. Sensitivity and specificity ofantibody test ing are enhanced by dain ting both serum andCSF. ANNA1 Negative See_Comment [Automated mes celestina] The [employer] system which ge nerated this (test code = result transmit valentina reference 75240-3) range: <1:2 tit er. The reference range was not used to interpret th is result as normal/abnormal . Reflex Added None. -----ADDITIONAL [facility] INFORMATION---- (test code = This test was d eveloped and 87182-4) its performance characteristics determined by [facility] in a manner consistent with CLIArequirement s. This test has not been cl eared or approved bythe U.S. Food and Drug Administra tion. ANNA2 Negative See_Comment [facility] [employer] [facility]---- (test code = This test was d eveloped and 37215-6) its performance characteristics determined by [facility] in a manner consistent with CLIArequirement s. This test has not been cl eared or approved bythe U.S. Food and Drug Administra tion. [Automated mess age] The system which generated this result transmitted ref erence range: <1:2 titer. The reference range was not u sed to interpret this result as normal/abnormal . ANNA3 Negative See_Comment [facility] [employer] INFORMATION---- (test code = This test was d eveloped and 40043-8) its performance characteristics determined by [facility] in a manner consistent with CLIArequirement s. This test has not been cl eared or approved bythe U.S. Food and Drug Administra tion. [Automated mess age] The system which generated this result transmitted ref erence range: <1:2 titer. The reference range was not u sed to interpret this result as normal/abnormal . AGNA1 Negative See_Comment -----ADDITIONAL [facility]---- (test code = This test was d eveloped and 15508-6) its performance characteristics determined by [facility] in a manner consistent with CLIArequirement s. This test has not been cl eared or approved bythe U.S. Food and Drug Administra tion. [Automated [employer] age] The system which generated this result transmitted ref erence range: <1:2 titer. The reference range was not u sed to interpret this result as normal/abnormal . PCA2 Negative See_Comment -----ADDITIONAL [facility]---- (test code = This test was d eveloped and 57832-3) its performance characteristics determined by [facility] in a manner consistent with CLIArequirement s. This test has not been cl eared or approved bythe U.S. Food and Drug Administra tion. Test Performed by:[place] [id number] Director: John Izaguirre M.D. Ph.D.; I A# [id number] [Automated [employer] age] The system which generated this result transmitted ref erence range: <1:2 titer. The reference range was not u sed to interpret this result as normal/abnormal . PCATR Negative See_Comment -----ADDITIONAL [facility]---- (test code = This test was d eveloped and 16768-6) its performance characteristics determined by [facility] in a manner consistent with CLIArequirement s. This test has not been cl eared or approved bythe U.S. Food and Drug Administra tion. [Automated [employer] age] The system which generated this result transmitted ref erence range: <1:2 titer. The reference range was not u sed to interpret this result as normal/abnormal . Amphip Ab Negative See_Comment -----ADDITIONAL [facility]---- (test code = This test was d eveloped and 08799-5) its performance characteristics determined by [facility] in a manner consistent with CLIArequirement s. This test has not been cl eared or approved bythe U.S. Food and Drug Administra tion. [Automated [employer] age] The system which generated this result transmitted ref erence range: <1:2 titer. The reference range was not u sed to interpret this result as normal/abnormal . CRMP-5-IgG Negative See_Comment -----ADDITIONAL [facility]---- (test code = This test was d eveloped and 26383-9) its performance characteristics determined by [facility] in a manner consistent with CLIArequirement s. This test has not been cl eared or approved bythe U.S. Food and Drug Administra tion. [Automated [employer] age] The system which generated this result transmitted ref erence range: <1:2 titer. The reference range was not u sed to interpret this result as normal/abnormal . 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 This test has not been cl eared or approved bythe U.S. Food and Drug Administra tion. [Automated [employer] age] The system which generated this result transmitted ref erence range: <1:2 titer. The reference range was not u sed to interpret this result as normal/abnormal . MD BlackwellPathology Biopsy Kkhfwbscltjgwk7510-47-95 16:06:07 Test Item Value Reference Range Interpretation Comments Addendum 1 (test code = s6oswVQaYHXtgJN3IoB 37) rJMYfo1ogt8RjbNWewX UsANbbfMMinhUvgc89t AY4rR64EV7wRISyBfR9 LLPyrlI9Qvh5RDNvCZQ kbMSyW686n0ixy5vlbt LeyPC3wRlxWXKwdspcH vI1KLjwPJXrbxtgJQq9 WNrgAUQfsGT9LDGxhMC jW9XqBYPvVX2chim5QA F7LObdLCOtVdL6BSOtt BMfFRJplCscJRvlg149 TBT7QfPfARLlhqCzkCs vfO5aQbQiPOCNrTOyC4 VuZXRpYyBzdHVkeSAoR zeQUPxlm7rvd4PsGPBf VJeegMx9AOVbCJC4vKR rOc2mTN9DKfTdAN9hLY GsYLRwWF1wMW3zgaFjA GxpbmVcbGluZSBUaGUg a5CwT5pnEMcbZUvaW48 of3pqCSCsgUQsvsNqmR 0sgRIaK1QyLjmwEJU6 Submitted Clinical History u9crcDHeCDZic8zmBHW (test code = 19920) mbGFuZzEwMzNcZnRuYm pcdWMxIHtccnRmMVxzc 9DdM7RaRfIaRWtulfGq XGRlZmxhbmcxMDMzXGZ 0bmJqXHVjMVxkZWZmMH syEb2eiGVjdBjcMpWaC KFrq0xdqyGKhtfomGr3 f9zoTWTsGwI8yWKkTHk fQ9hgsxHxtCUyKLInUL x0nZ97WKIydD0shWMsR CgpipMbXaR5AQhqCEQf VmO2GJZkrMCxMIAxD5v yZWQwXGdyZWVuMFxibH SoABF2zRcei2D5zAFxc GVldHtcZjBcZnMyMiBO o6VxSIy8eWetU2XcMEW tCaO7oXNeNPUuULtwJW PoZTRhofQ4nL95NYrzx jY8vNVge7Imx50ib229 kR0diAHpKBL0KRGfUOI qjMXsNQHbPJX2EKVwjI CfI5dlHMYmCF3jfbfeB FteQVzhYYRmgQV9TDAj hTLbU2WlBNJjCWozQAK esqr1NaRvPf2xcBLukT wjSNlku0afg7vxyCWbO wi9NVPbQdYyMdvbGWae y8Ioc4crTHNncw6bROC 3wSWcbJjue5U6tNHjRY MhxYXrijJkEQRcWoX0G ObePZ7ccv64XQHoZTQ1 mt5kjZDhlFxcfyEtzUD tZSyeD9FrRQZvl901BM QlF0VhUOCbq5L9woFbD bDyTVWkhNR3zlL4MXHs LTc8oKExleO6ihEcpMA lN1zidV4pTFLhYK7prn clx4dyCNzhDFydPTVqe EP2axE1YUPwlJIhT5Os wQ1fYGLzEHahOIRhpgg 0IiQgBd8bsPDxoQlyJE xzYmtwYWdlXHBnbmNvb nRccGduZGVjXHBsYWlu XHBsYWluXGYwXGZzMjR dgWwlaMgkfP3gHeVlDr IqGYtbNE8yQPXaY5nmj ZGwBEBqWZPkF8fxTuIo pE0itNdpGZwocqJeGFC xrMcoD0ZqYOJfyDyspG heaCPjF6G2Vz89IQ3dt UDbHALdkQewI8KzYKWc wZswkSaqiFOfX9QsELR gSUlJYiBvZiBleHRyYW 9iUCScWBCnmYNiF7W4K r04WO6gnGTqIYKuqFHx F0RpMAWlP35vGSq2wJ1 akT6rUKjCFzlzHIucXH ChdfAHIDmqDML2KGW8n vHoLDuxK06xqmT5LQpN MEpjU95azIMuTKU9zue hbCBmaWJyaWxsYXRpb2 3rJP7dkRDyfZlpneuog 6Nnm4JnL5utwLTnWUoN NDguOTFdXHBhciBVbmV 0wDptaM6lYWGiKVxxxd VtBvP9BxFlDEDgxpOHe UckYTYrE03jqGp4EGLr pQTdjVQoXO88NKEbhjJ jvOU8SXPgZ6epQO25AB 1ccGFyIFBhcmtpbnNvb duzUYAct9Bra6MwL1ro JT5vzUFfXBEtbTRrl4M rNMRwlFwgU7GzY7bhr1 3vQK1iVBFaIWjqKEzTM DQuNDJdXHBhciBEaXNw mYWpWQYstV82YBN4lp7 jaGFudGVyaWMgZnJhY3 C6viYiy9SxdgedmJYeU mVtdXIsIHNlcXVlbGEg Y0B5Xc0pSLJVUOmgUZS vRRlfISL4FZ3luP1dLR tJMTBdXHBhciBDaHJvb agvXUB6vvuhfQSorTJy wPlkRJIak07sCP6xePI ncRtykvajy3Ryr9YwC8 lmaWVkIFtJNDguMjBdX VLwgwDHgXIftvWjAP4g msAldOBjjYN3hGZkR5J 6VB39Xv0xcHemjX4cWc YbMkPmWhpmKS5dKEYyZ 7elkPKsCCKgWJDgL0ho WjUojQ5rfFwiZKpheeP eFUHgsb42 Diagnosis (test code = 34) l3vszCMvYYSjkOJ1UvH zQEPle7ddw8NgaLZujG DhJFsijIKacjUlir56a AL3kT65AE5lUBAwMbF8 DHBmyyC4Fhp6QLZtTLB okPYeB757a9udr6neiz BfaNL3BRVrQUYlW0JdG T6tDAHauWAoC97drMJq STX2XLDhGEPbwOHtYSP tINV1YWZukHSgI6peIU LyTC8tksoiPPgxNYabT TTztFS9AWHcoOOlF6Pb EIVrQVitMRLgcke5RlP aGi5wwKXuoWdoPRltCU JkXHBsYWluXGZzMjBcY 7UlSRJvUiOprSvdn7Jl ITLtDYT7QYKubDOshQS ltLRtpvL3pBdvC70cAD MlQQHzeHOvHnddvOA1O lxwYXJccGFyXGxpNzIw XGxpbjcyMFxjZjAgREl GRlVTRSBMQVJHRSBCLU NFTEwgTFlNUEhPTUEsI UnGTd8QUyHYOFCKFvSM XwQTTJKLEBfkWZ4GWJ4 BIYdTGj3EKNJACGZkj5 FnWAGyxK1zloPbBbgwC FPvyHSxLN2yBSSgAEzp k7T1zFRblA4wbCcouN0 juZKab7CpcE7dhU7clO zljd47cVDnAwQqvMBam 9Z9KOAdodGbVBXrl1Eg fFnxWRCdheAjfa4gML1 ccGFyXHBhcmRccGFyfQ == Comment (test code = 9835) i1xzfSOfBJXcrYY3JmP aZDKoe5vln3BzwIQqbF PhLHlimWBhawEsku44b LT0hN73XX6uAEHnFnD9 JSYcscX9Mjx3NXLfHHV ftCTcN758u3qtr0vtra CdzGB6EVCeLKGjM3RyM E5oCMFgsDKvR75fhMNa UOG1TLOaSTQciAZwVWF wVMD0SRDfcOVqG2hdRH SzXX7ppbrzTMcpTIxyW DTjeVM1TFHvqWZdJ0Oz IPLvNMfxYWJgqrd6EmZ mFh1ftNFgkAblLIzjLH JkXHBsYWluXGZzMjAgV OymyyPfnkDsYKu2ZWbm EBOkh1wpWO0yymJ9rIS wRERhvNvhoT8rlNMvYo GmzUXizA44mxSvTUuuR KHapbYtgv4fJQPoRbM6 sHNjr1TlpFQqkO1wMdE qXZkgl0WbfZKzALAvz5 JvlzAmGZU2wB0jAWStb Bfsi0YtKFT0UZKhMPil mPiighCozfReohL4rAi iQEezB21lr4WzQRTsH5 WaqFYpr78rRA3vD1bbk hWddS0smT8rUIWwAgYz e2mneOLvAQSoQU44BTQ yY8IznIPekcfdsZ6oER ZvxEpnX9ArRVCatEndy ZkruYLtC3DnZHRbZ5Fk lyIuMBAsZpM6t4EeqUQ qW6JhRq3sMMhtONx2qI Try25mGYDbEXEjQTUrq 4J3f0mnMZSme0GrzKGl fQ2jpPMbYIPkTMnjORG wR7SxOWkdp2YekN8nzM Mgv3CwdEzvguDeo6elc vOaCJKevACdy7dlmRHn WLElWGziGF41zcAhVcI ya9B6XOWdy9G0QKS6uI HcKMX1gBJnZ8BmQUPkg QiazH7eePz1cqU0YL8q Xb3ri5IbxoBmtj0pLGw cMHUsoUp3HGY7aMEaLM lzIHByZXNlbnQuIFRoZ SBhdHlwaWNhbCBpbmZp bHRyYXRlIGlzIGNvbXB yaXNlZCBvZiBsYXJnZS OjNHkobiB6vBChUItjR 4mvgGEwmvGsF5AwLRGg oyZxwAJgdpHeh522q8N eCCB5JQOhZ6PhHYOvV7 glq36iiFyoIIKpF1Wtj 0rsuhAoPEKhm21efbMi rWWlnNPuOL6kwCdiPJ3 oYMWboUisUSTyc3ZbwA Kud3RtGZ6moU9teAznm ZahSCB2wT5lbJMwsI4p QD87oLCbl4XzRRXechv xURDzTWvuYSDuo1A4z9 NpcyBhbmQgZnJlcXVlb cMijMb1h2RcXvIclZk9 cmVzIGFyZSBvYnNlcnZ ySM0bXTNahaJdsPNlfY FySDUdg3SsvwOhseUpr 9Lxm6Mslx2gRB4ruagh BsKne8ipw4YvEGXuGQJ wm5PgJUrdiiAzrwQfpD RqedUpGvhqBR2tgWWgC EBioiQPaL00yt6vdDF1 t5NvOK9xC7YfPPX1OVn fjG8tKILow2kuGVGeRR QgdGhlIGxhcmdlIGNlb UowHFSoXBLnf7UvlVy5 UJNrn1InK2RtFWweO8D 0NSAoTENBKSwgQkNMMi sbRiMMIjvkDT3xHRBoC GWrPMmnqCy3OZDat2Eu H2PrDAYRYJVbFLWFBBJ mUMFDDE9iUCFCEWAeGU BxLNWbZYE9hW6pEWQze KqiUOTdN4b8YLnaPZxB PS3JUM3uWVozx3XuxCg tpxGfTACcx0BvdEorWV zsmpfpTBk5oYOlv8coH NLusWskPBEvGNOwq2Id ePz5LINpl9RwVNWAED7 fUT0iF2IgcS7oXOyahY ztxMezgDBfZ9RxuRUoM FTpOTXwl5t6rZZdJNMf phZKSELwOqMaT1O0IUB kgGvcvGlioMWyGU16tS Omn3LvAEIdC9agzq08f sDwgYYlk8YnOCFqw4Qh NZHwVIEpFHNjb1DiGVi age4rUKViHJOyvd1rpZ RkbhT5mQ8qWXbrUKL5N Z1hQOO2whJfFGA5UPee JJO1LGulEBZxxUIaiJk tYXRlbHkgNTAtNjAlLi NUmpLbiBW8GUm1QeEuB Gq2ADHje39nAk1wKFML EtNUFeNKGBrdKE4cU5X 0aXZlLlxwYXJccGFyIE Hxc4xtB7j1o32pxYBvW yBhbmFseXNpcyBvbiBj x37hxPZyPL88YFKdcdJ tbmVlZGxlIGFzcGlyYX ZhBWYvs3htYJ5vkWbfi 9CsYWIaz89izYPHSIKa bGxzIHRoYXQgYXJlIGl aQMAazXSumOWlNi6mKP KoIifpfROsfzNuZ9jfd pRkoLO3HMCfOMf1i9pq LiAgXHBhclxwYXIgVGh mGC60TZTdiWhkjO7ylF fyfI2asKSxBA2zCVanb HKpl3SxJZ9aeLlnjMYb UcbdCXxkK5VqAXGbKER zcSLkjMpyaYQty0k7fZ BkaWZmdXNlIGxhcmdlI KPvK2JtrDMlhG7ogD3u IXwxQ0XiiApeMKxaN6Z ceYFnCVGnS7CeqKMbvG 23cy1zrUZxa2L7jSEcN XXaxpubWHCwJ1b4l2jd kxF5iFSvm7Q9BNxhTHB QF0xdDCRunxQWDZGaB0 XjMPYfKLVeooHaK6LnD D44QFmvJOzxTXOou3un FRDjPPM9bKYvkwVssAo 2MS5oZFdnvCAzMDhjyI alWkPrjtOxj3S5AMWuK yffxSmwWCLiwS7rW3Gg EXI8oC9nJM0exWmbAZc vAi0lHSBixscnTYAlUD JqBV0hVLJfp25nW3DcV 4RrWCOuduFkmi6cmLJm XHBhclxsaTFccmkxXGx pbjEgTWVkaWNhbCBuZW Syy7IucUkqrgPcwUndf AXbvQinkwLaf8RjiLhw HJsraRJwo9swf9IaI1y hvHesAPbcp5RspX5sCD DlUYGvi1YvEOTzCICiO IDddX6dPUHaiOFow53g bG2hfDhsEBHdw8xeG1a 3x24jeHPvIvLdaA77bn 9prJDpo2K4fHclDPT8k HAkQDVtTz9rNVCfGYNc RYM6IGPvOTudj4XcglM lx5TfpCMdTDGolyAcog Zra3nvx1arPsx+IFRoZ TNoyY46CMV8fD9aTLYk hFEml7H9FFnljiJpzuN mld27RVYeSEBymBqjrc FnwmSjIF32QHIhstTjh 0GwLKqyXRVxVTTtPCB3 sDOdunYsKTC3gENwdym gZXZhbHVhdGlvbiBpbi T9oYmuEKQnQTKzfTCmW lxwYXJccGFyZFxjZjBc cGFyfQ== Gross Description (test c3hlkKVsWGTqdXTLHSi code = [id number]) wMFxhbnNpXHNwbHRwZ3 VnljnqBWjhNN0cNS7ak SgkdEKcfWGfQK6MZSTa ZmYxXHBhcGVydzEyMjQ xLSEznGIfsHO8MUIyAD 1hcmdsMTgwMFxtYXJnc bT0WYGwiCPoO1GjPJNo NW9xcdyaXKE7PXxfoD8 xjgKBJdujWl6cjTNoeP tcZjFcZmNoYXJzZXQwX WZztOkuJOFqSAp8rX3R LulrY02jm9N2Mpt2CMS cZLBiV9ZeBP4kVWVcgL TkT43JHqmfALW4JFOLM aavDUZnGV4Li1gmTBAp zUXdUEM9VCjzsVUoRGU uZFEjPNo3KLOrTJuoxI ZqKG0swLwzAgckyDuit 2VjdCBcXGlkIDUxMDAy XTykNGYxRA8IMlQiVHY zZxDnWmSvGTn6NGx1VS 0BCwUnQTZwXVw1OTutN uHtJRr7HRugCP4MHEro Lmw2UJL1CbB7GMAfXfA cXHQgMiBcXGYgQXJpYW wgXFxmcyAxMCBcXGZiI YopKlflZAlmS73xuLad yT4wYcddmwXxXTE1CYF hciANClxwbGFpblxlcG ljTmVzdERvYzEgDQpcb HRycGFyXGxpbjBccmlu MCANClxsdHJjaFxiXGN mMVxmczIwIFJldHJvcG YtgGVhfoU8eMbkcDHee KomAsSfj46gxcucavYn DvxlEVvzSrNvSPOqm00 rmBY4DG3cAqKsc14aaE ypx3KbOKNlhqEfNGLuc mdpbmcgZnJvbSAwLjdj wTI4gbPeIntvO29xeN4 xrJUaN9NiXNTrEVBnRw QgJ94yvS0vOQudsPF0W MUkCDQzkHvgIQh6YCZ1 Gj8jeYFsZFHwzoEUCRV tGuXbc1PatxsjNS5cNX BmRPhoDNIsslRbAX9mO VQNClxlcGljTmVzdERv ErJafwR7BCHxgLFeNPC 9RE6eSTRpwscjNVKtRQ HiBPU5VEntrA86mEYuH GZzMTZccGFyfVxwbGFp vuJNHmejkY6cXfZuu0m xtPj5VWGNBnsqgPNvxb kgamN9SJEyh3ussTdkz 1JxjEReVM8ysKpluN9l ZnMxNiANCn0= Disclaimer (test code = b1tnbMUxDEPytXDlKsG 9844) fCIQkYMOfi0feUDLkqU FuZzEwMzNcZnRuYmpcd HVdVTVrMxNek2mlk852 jKZwp0akBJPcLoM7cMI iHMJcsKDnS805HQByXN yyh8yjf7RgQEVmdRPha 4B9KSLKayugtQb6bIii S66ys4H3XfyxJ7koQPF tXCDtU4NbMD2gWWFqWz r3ZAK6IXY5YXAcZZJoC 8TbWY7eJIGxcZHiRFp7 w9zrgPogGNLiGQF0g5r gEPmzlmBuWS3dzr8eoP m7q5ywbqTfAFYmJMHeb NZYVTUlG2FmzBiiEx0y yDf5wFlaRntyPCT8Jre 7DB9hwp17ydf4oDwkPM PqagqyTsV3NPfaHOPce remSDr1JIdjOWXdwPJ4 VTLfgGYnP0VoUCYqJU1 upgd5ZSG1NZusANGpBc D8SEXxdAKjHAKbhFktC Lull538IDR2ScIgSS1z I5Zlr5E6sZ8frSZoQBW nzXLmVbGgLLKjrs6nhG FnNEiqv4LdZML3xxW5z WXnuYTvRRPjKE18Gnsf f3DuHdlrPZV5HJEvirG wo8Gzv3mfYeJypdOrN5 ygN7QqAGLvRJYtVWVkY pVngjQfj2Fdf5VhpSTx cDw1j0blECFcOAUnoXq ot5ngGDO3DDDbC0I3pI Lst2sgCColEFRqbIL8y pB2HGBqsHHjN3NvrE6r JVYgQW2plul7m1uhOIV 8CAmzHFSoRjK3juU7FZ BcaGVhZGVyeTcyMFxmb 492DQI7GdNlRVLpg5Nn M1OtvOiaD77fgDpkV11 jQHBntRicwM7vkKuplK 5cZjBcZnMyNFxxbFxwb CAbjbldKOhiwdM6NDje oogeZQPdBFfgI2hiXuK rSUAckTnqUXsim3HoNK NaXPOkDqtwtnN5SOYRv 77vAUDqt2WbVSWomD4d lVFhNYuhsiDeqVB1OXa hdmUgYmVlbiBkZXZlbG 1dRTHmUO7iJHYrdlVgb m2bzmWsLJHzKZSaF7Fu cmlzdGljcyBkZXRlcm1 beoVmMVX7MKOFVI4EFJ ErYPUre53aVOWeqKnfm W6rpXEhltGaELIht2Hg wU2lsGLHFESwS6wcDD1 uHMots4TxpULraJNxwS K8AUBvf7TiErYbneDca HMgnJVoT4VfgIllA7zr VMJqRKXqblKmnYEmi7K hWFIhrHE5cLPeLV3VTy XKt73rRFOpJROGvnMgL RAiwWfzdFY7skL2iS4j LiBJZiBhcHBsaWNhYmx bDFZoz373zd1rrmS5TT RpTLSnspiaf0XoZRGjH IQukK43VKRfRQCbck6q wxcagPZoafOiJ9Ovkzo 7sK3xJVJfCQmvTPDsLK ZzMjJcbGFuZzEwMzNca GljaFxmMVxkYmNoXGYx RZkfM7uaUtIdXvLvScz wYXJ9 [facility]tyafvhymdultt1515-75-92 18:43:19 Test Item Value Reference Range Interpretation Comments Materials Received (test u6objCJpFOLadUAjQiYn code = 9973) HVRnCBTyk1giZPUuaMRm ZzEwMzNcZnRuYmpcdWMx IVGfCaRet6onf452iUHq r0inRPOaFlO6jJHkZNSl tTAsR165XFSyJDscv6ri e8QgYNLckKLug7W8OHFY xngssUc2eQhqU26ut3Z4 KpfmP5qbFUUwCVWwO5Ny BV3cFGJnYcm4CKU0DZQ4 ISXcRWGdN9AsJI6hMWDi bTQaRMs1b7immGniIBPv AFC5j1kpXXgxlcPeXK5j ut0msDl2k7csyzEaEZIm FFTeaQHBJYNjA7QkdUvv Hp5xsNm2aEmeQztlKBV2 Ccs7CG5dfy98ctn4eYcy EVIdvvcdJvX1EXfiKRUr jfofUDp4GEwwQSPpvKhs MFxtYXJncjcyMFxtYXJn gMC2WAZtzGRzA8VdXILo WGgjRNBqfgp7FfRiUi2n eCPinJpgVGqzq3fmk4mh pUPlOnr6ZELcTwThKqeb MGhmp7Cgm9efNGEvut4j FRU8iBMxeXqde4P0wSHe SMQwsUHdmcReTLBixh01 vRRpdVGgwTLvzy5eoaHk kCZstVGeTBC6bJWjcdFs WVLyxAZoDNApFA7uiETh BAUisW7dqbtqMNFvFcHy rinpOSMdnWziutSwXc3p nUylOVA6IBatD9ftsF4n WsB5TTujK6jjmW1xSNi8 YPkegDE9CUMzpL7rMS6d tgtxh5hbDdTfWR3fudcw r6qtQeDaSR5ophj6r9bv TPD7XQlcIWNnJbN1sbY5 NDBcaGVhZGVyeTcyMFxm v129UPS5WyGcZUQkd4Zb T5ZxkDuvO19pmDyzG65x CPLjmDwcfE0hfGkjkB2z TiLnOyUtROg9gr01CQd6 cfxzpCbbVVg1xsHeBEZd UUB8SUHeqUYuDKEtB4c0 beZeZTEeSMO1GUPgmBYm ONLiN6y6cnEfITI6FOr1 cnBhZGRmdDNcdHJwYWRk YjBcdHJwYWRkZmIzXHRy pSIrgSChhKDgyR9bwBxf JUTdrWQbcS2qHGU5TFLp cmgzMjBcdHJoZHJcbHRy fy60XTPuqwHouDQqkBdq yMZoRTL8GQLnMOPoURFf NBQ8GTNtHkLkwbDpEXyh bGJyZHJiXGJyZHJzXGJy AMN3TXXgVqSeseTjMEsu bGJyZHJsXGJyZHJzXGJy THX9LGCqTbOyhdKwUQwa bGJyZHJyXGJyZHJzXGJy DGT9EGZeJwMdmxTtDQqa bHBhZHQxMFxjbHBhZGZ0 W6zwkOSaHALlAAemvOFw SURwQ0nblKGbRYlmLFFq cGFkZmwzXGNscGFkYjBc V9wuVLEvOyCeP3FzeHh0 MDAwXGNsdmVydGFsdFxj oZLiXLX3ZRVrBGVwCEBp EBI5MMVhRjUwccOnRYfk bGJyZHJiXGJyZHJzXGJy UQN0JCBfHqKgiqWcHEhf bGJyZHJsXGJyZHJzXGJy RFU8MFSdQeAaxiCjSVso bGJyZHJyXGJyZHJzXGJy QIP8XMOiIrSiywToAGda bHBhZHQxMFxjbHBhZGZ0 O6cczKKaVBEpNIqjdONn ZRDzL2fqrGFwRXbgQOOi cGFkZmwzXGNscGFkYjBc I3tiAJVlLnBmF9KbmTr5 NjAwXGNsdmVydGFsdFxj mYLtHWV2AYUpMMAlPNHv MAN7OWVkTaGgfjXxNJth bGJyZHJiXGJyZHJzXGJy WEQ6PFPuFhSbgqGhJJly bGJyZHJsXGJyZHJzXGJy EBJ9DEJhFkJezaUzHUry bGJyZHJyXGJyZHJzXGJy SSA3LROoKpBrfaCcVExe bHBhZHQxMFxjbHBhZGZ0 L5xmeDIuPXSzVSatmTNt CYDfP7pmiXGkXMaoKRVj cGFkZmwzXGNscGFkYjBc P5xrSJZcWvEjF9PcxEj1 JyTaTVRxhhZygN81Sghg h0WnNRCfVBQ2YCsoNDnk bFxwbGFpblxmMVxmczIw JQuljbirWNTtEPppR2az EwQoXNHriEshRPxjt3Sf XGYxXGNmMlxmczIwXGIg NNLdMZYblC5tXyhvG2Mq zU7dRNdyOmmfY1ymXRHo x7JvjN7lKEreuLTsdigd MVxmczIwXGxhbmcxMDMz JHuyH9iqJeOrMAEreVce KMqod8HjPNWwZIBvXuuc bwUoDHp6wkTlHIJebUwe iKCbZObzvyQloMmmr8Jl ijChjJunWTExPCx8ugSb ticslDm9zBMwcDduNZOt zPgmnG2aIwIbMsWrRUka bGFpblxmMVxmczIwXGxh hbhjIZZsJQobX8izFkVy AKNwgFvfHIcga9GsQDXp OUZaGayxcsPhXSNfY33x bGVjdGVkXHBsYWluXGYx XGZzMjBcbGFuZzEwMzNc aGljaFxmMVxkYmNoXGYx DRnmK5oyMdGhH7SiCIFx BhZjbIQpB0ppS9VunQdm YXJkXGludGJsXHNzcGFy HUC9eIMrndYkbNHiyDCc QAHhYOqoIFT4jIKvfbyg tREdzlvkJFhpzsB3SMDj YWluXGYxXGZzMjBcbGFu ZzEwMzNcaGljaFxmMVxk VvRgYPQnALveY8pbTbAd S1WpMOIfWdXdVaEFMUXg aXZlZFxwbGFpblxmMVxm czIwXGxhbmcxMDMzXGhp Z5oqDaKdJHFynCtsCCvt x4UmVUIdXIEvStoyxaNl BOj6ayQaFHMbfXsuwG76 Zeqwdp68DXZbk1dvMBUx W9OlwXBfBNTdwPBsODme MDhcdHJwYWRkZmwzXHRy cGFkZHIxMDhcdHJwYWRk ZnIzXHRycGFkZHQwXHRy jUBcKMW6A0f0xrBaQLTi WUt8mpUqOGRcTfUspWGe CPC2EXs6JactbtJ4wNKp M5b8UrhxbjYtZHiyhROx mq05JRHceqAtdMDesJpp tUBhGKM8BRTrXCUqYZXf AAT8NPYhXpYegoBwBUgk bGJyZHJiXGJyZHJzXGJy XAC3FOEgAaKgwgMwTVbf bGJyZHJsXGJyZHJzXGJy SMB7NGAoRhWefeGfWOnl bGJyZHJyXGJyZHJzXGJy OVV0QRSdTzRzvhDvBSta bHBhZHQxMFxjbHBhZGZ0 B3mzhIPmRNKzXPzpuUPp STUmH8aqjUBoQDxhRBCo cGFkZmwzXGNscGFkYjBc K1jgFXMrCmKcD4XzdUd5 MDAwXGNsdmVydGFsdFxj kUVpZWX1OIKlFYXiPNGe MMY7QOGhElJceuNeAGce bGJyZHJiXGJyZHJzXGJy CZL1NRYjYoEfjtRqWPyg bGJyZHJsXGJyZHJzXGJy MRF5WUTpQjRjghKxVFky bGJyZHJyXGJyZHJzXGJy RRC3PLJfRgZkxyIjYUan bHBhZHQxMFxjbHBhZGZ0 S4bdzZMoNRSvWLpriCNz OXVaS6ksbGJzOXixQDAu cGFkZmwzXGNscGFkYjBc P0gxSREgNpMfR2ZnrOd0 NjAwXGNsdmVydGFsdFxj fXTqBTJ2JYQkYVYmQBLl HGG6RYLdErOymbFeQJjz bGJyZHJiXGJyZHJzXGJy VUM8TCJdIcKmchGvXJdh bGJyZHJsXGJyZHJzXGJy ADW7TXNsEiMwvfHpAVgo bGJyZHJyXGJyZHJzXGJy FJN6YNBxWmApjgLwWEaq bHBhZHQxMFxjbHBhZGZ0 D2mkgLFnNFYaGOfgkDLm VMFqN5vlwDFkJEfpHZUe cGFkZmwzXGNscGFkYjBc Y6rtTYHtNpMbP3FxhOs1 WgLlNKEhttPphK13Ppeo g8OiDESaOPZ0EUprYMkr bFxwbGFpblxmMFxmczI0 XHBsYWluXGYxXGZzMjBc bGFuZzEwMzNcaGljaFxm YWxfViBzNGCyKSodY1ux EuLuD1PvIMZaDeFsJF9s IdE6FGElXRLwLJElGMGG RfqfBBOBPY8FZ1NuCJBc VVNTXHBsYWluXGYxXGZz MjBcbGFuZzEwMzNcaGlj aFxmMVxkYmNoXGYxXGxv B6lbJvCqT5AnWWQpEcQt lCGjP2ewC1AdkKoeBPCh XGludGJsXHNzcGFyYWF1 jAJoyhKpzEmbtTpzfW7l ZjBcZnMyNFxwbGFpblxm MVxmczIwXGxhbmcxMDMz JKlpI8weEbCxLZKqaCcx LYkrg3ExGXYaLVMaXuoq czIwIDEyLzEwLzIwMjFc eRsgwF2vDvWyStBfWKlg QB4lRKAsF1haqPDgYPDd QSHzU5soQlPreM2mcOmj MVxjZjJcZnMyMFxsdHJj iYmaJIrwTZOqhxLczP32 Ftper2MfFXPaQCX4TFnx MFxxbFxwbGFpblxmMFxm lrE1AQEoBZevBTHgLKXq MjBcbGFuZzEwMzNcaGlj aFxmMVxkYmNoXGYxXGxv R7sbExGnN8SfYQIySdEs GW8wGQ4cPYRgDYVhLAnz XGYxXGZzMjBcbGFuZzEw MzNcaGljaFxmMVxkYmNo SLMkSVooU1ffXnOrL6Gr BGWyEtDepZWyH0zxD9Us aHvqzxRdfEnxn9cigLWg QJojt9BifjHypJdhFYHz XHFsXHBsYWluXGYwXGZz EsIimOvjiM4vXsOfFgDe OLuaPS8gKJUuO2hmtYVj ZQYxLIPfQ4lcTgCsiR5t aFxmMVxmczIwXHBhcn0= Diagnosis (test code = b9uifWLfUGDdaVB7ZjKd 34) ABElw9sdu6ZtmSWuqIBc CNzmuYErigQuhz04nBU6 xK52SF8nKRHnApP3ECTx spO7Bxs0HAUkYXZlpRDa I595t5nnb1wrrmJpgYQ1 QGZkSKSjX5PvFG5aYRJc vRGxN01ycNGsNDK4QVNc OKDjrCRmKONzGXH6JSFb wKRlH3nfJVQtML6ywrkn XEksJIdpNTDhiMT8TDTs uNFrY7ZsCVIxCXudXSHj kcb1CbQbIa4wlCTetEfh MFxwYXJkXHBsYWluXGZz LiNqK9OkBREmoVZbrGZd iCYivqRlhIVoyL2kcYFb t4GvDGHnAXUqeBJaOapg zKT2WBswMSoFFzX3OHWy CKK2WGZwcTvwC8Ylf75k KLE3NLBrFj5uLK8zLIMa EHezvYTvLTPfzfd2KTYm cBPdSCiFRxlIAWAkJ1QS EAKTIG5LAM5OUONtK8QL SLXLDG8GVmKtBEAwvfcb YXJ9 Comment (test code = p5hvxKXzRGOnsRP8DoRd 9835) AIShc2dsv7GczUDmdLLa BTesbWVadtJbdh21pKJ6 iN24ZS2bUFSoYyQ7DQFk isR3Ivt7QACeBDMyyBZa Q514c5pmr1osdiPpcPU4 pUxoVDEiofujGwA9WRdl TGRtowudPMm7HXrxGIBv sOM3BADtoGMhN0GlUNKl PF5iyea1AAA6MHexSEOy BwI2AEXleKYcQHKcaPno UIepd904LSH1OqOgWTJx osPaiOoncI2rKeLmACEQ tIRlcXamuM1lg2qhKwXa VSE0nU0utcIgzJ66RF62 bHRpcGxlIHNtYWxsIGZy LUwpVB41gqExDsIexQEq v1NziLXoc3GebPxns2Uq IGluZmlsdHJhdGVkIGJ5 BPHzJHL1xZOoQ7MrCHn4 uMBqy0iwTQqaGhmusYKp pXLpI19rjV9pPYNipYGl SA1hcZ6vwsMxtZSsBeYu GJCfLXGxBQgfexT4nQEx IHNsaWdodCBudWNsZWFy AWdwdbRuyObiesk0hFHj UVUsYKH6JBUeJHFjVZSf zD34xwNvCC7zQUS7rT7c eBLgjI5qVCPwl5G1d7Ar YyBjZWxscyBhbmQgZGVi zxztCMWiWHUeN9Xga2iw wpFmuSzmnf52VHJaHNQk d4UtbULadoIriiPotoTn CDZiu6DangHzaiCegYUv VGFhWAUtRD1yPWycWRZw bWUgYXJlYXMsIHRoZSBp bmZpbHRyYXRlIGhhcyBh goTdkhipb5PatdMbtQUr FWzajVElNpB9fV7gGaEz VGhlIGluZmlsdHJhdGlv tkDbXUS9BVCkETeaVQUa NxXdC0TriND5uaYnjZBf VXNfRKDsL7NfSRZngKju p51ggYfkDQoulMy0ZPAg o4TbxRsjWlncCVTrpIQm KZ92nYQtgGncQKgytNMf u9jsr8KhH9sktCevHJfw f8BtzL6qBPOqMXTix0Ea ZWQgZWxzZXdoZXJlLCB3 LNQnKUBmljAjqb8aMEGr ncP0oPVjo3EiS0upMY8z OF8bGTIyj3YoJJSvEISx ciByZXZpZXcuICBUaGUg bO1yhUp3mmU3kB9wWSKd lYwbTAAqDRVmh3GylZl1 YRQjz6VzI1AqZGdsQ5T2 INOgRHGDVOUfMMEzsL4a DLLKI5k5UAM2dPZdJGS1 AmDvfEVtiB0miMKthmUj Pm0fFYZLQLzxKSHDTRHd CdTmZPUdlbIuHW40VnHx RwYpPI9jHVReASNlQGdk cyBhcmUgbmVnYXRpdmUg Tb5eMBQCRYEtJYUOWuIo IENEMjMsIENEMzAsIEFM YkIzKCCHSGEnHKX7C0tw znSRGVcuFWHZIYYiYK0j TMYzvyK7iL4rCKStiLde LiBUaGUgcHJvbGlmZXJh tWphrmTrDTWuEBE6BVqw ZCV1CAE5RNsrmR7rBKsy IGFwcHJveGltYXRlbHkg NjAlLlxwYXJccGFyIFBl txZ6rEIepOOhbuljXKLd ihUhj2H8CBWlwOQwzkAj E1PiA7ZuxD0lz8j5lTMx sQHqiFFfvgW5cV5vMXkj ehRaZKGpi8YnERZkm27c cMpzXGIuhUGqPK2dIZ4n ZERxTXUqWJ0jVC0diiUg IP1sHH1TAqdiYdBHSnjt NzEUMtGqlfIPUJHbAL1c fJwsfKHdmIhgdqX7JRMd QWM2MHM7AHY5MYMyG42t mOTtKwA0lSLgh4QvX7ot DCserkHmb4C9QGgragTk x9QruBOfjqkpZWDxCi4f FJFyliqfgb4lbLNwGNIr scBIyZMgaE4zpK3xfXfw wP3ikMKigQNzfVNwkF0a uH2gatFlz4JzX8XevPOm DxEfqrmcpE8aA4exf5Zr WzskVWYry09hQGIkbO3x GSRwUJNdONYsr6Kke0Do DMUcilCheONdnF5zGROr NFFhh27yz5zuySMvwJUa kt8kOIylXLArn69pNrNi SGX5FKjzgiA5IZRsRIRz RsN1XW49VgfcPAKwJRFw SHN3jW6vplZjHEGkshAs iHZtCEHbgY5tGJ4oCGWL SXZvEnD9DBXvs9ifCKX4 jGDla1Zru66yd8RxWfZE Ye2zMGHmFZWcXDUtLX60 LFbmRH7bFX3WEIRwlN1i wNUngdByuuGldDtxn0Ex WqAvPGbbggQcxqDhr7Vt tRE2ZNLsYCSfNeKeVVvq eWOjMGbpZZX2UNNlMXBd qWBbHiPaKx8qMUXgi9m6 aXZpdHkuXHBhclxwYXIg ODOct1VemV5tHPVkHECa ZSBjbGluaWNhbCBpbmZv hr6xaMtdovIlvdCvbNCc jPWwuU8phLrhKB1RVIAk EZRlv54uBC5hIRwuKReq sfPbc2IyzarxiHcrZQXv jXarepIyxEWcn6GktGVn PWsqGSLpR2BrPeJvJYIx GjNaz9e9hUOjZZMoEHIo ZWQgYXBwZXRpdGUsIHdl oKnxhRQdz2CcPGJoWZAe GKLgDO4tCOScnpV0oRYl kUumvv1dSVNqg10jllXt aN2hqtJimBpjFBO1DRu3 OSQia88roFXhdaLeDBYo j66oQEaoxhLdoSGjkgRg OalsKSGhvjJ0bNIlZ2Jc XQmcWE3bWREiDDNgbL4r BABgVYZcLPZglUfgNQ3w KXAURYAtl3HneNc9TXpu wpUazJDcEY4qoHFqQEfn IHRoZSBjZWxpYWMgdHJ1 zvmcRI9fENZxvEXmcPBj qRNejuA0hL1vPMTxNHBa GIIyJO94LSTbXIJsd3Bw pEI2qAGqPihopUR0KWWy abixd4ApLVstBDFskKIq hoLqz1F4LsQeYDnwDDAb iDkqjqWhnFMaMP4wLAlv a2Hpzdcvk0ZuyRvutTaw sKQqaQTvq7VrkE5nsLmw zoPijS8pw7deBLBLTUY1 YnNlcXVlbnQgYmlvcHN5 AS8jEXTeHNDmTDH8RZLz bAFcvWHwjTTwsaV5rGkt sHIqSv4ttSJiEXZ4MQ0N TYGaCTXcz26yAP7fDKXi BZ2vCKSiYVwtYBPkhqDi h6P7WQCyIxtcbcIll1er OoH3NTjjn4pqu2XbHCWo PgM9x3VmjQMaV1RpYh8b OKsjXHd7eGNpp59xRVcl iWzfXDOaKGWtxT4dmZBo OU93LUTgaLnbIWFcxX25 mk8dlBTuq9Y0tAZdXQLb znynXDQkUq8pCSDopUDq e62avSH2RLR3fD3pLYcv grTxJQCfm9ZePVPci58m mAnhkbEmQX3dwRJxHSRj SJYcLP4ySNWhz82aRVVv cn0= Disclaimer (test code = z0ricURnEYFbaXYoSpLv 9844) OHLpQKVdj9ctVJKbbFAu ZzEwMzNcZnRuYmpcdWMx KCMdTrWwx3hyt792pTQb q3ayUDKpFxN7wPUlGATe qHEvY452EDJtACmia5ij b1TfVJLzsIAoc5C6JAAD foxyxVv6xXbfM38rb4Q4 ZoodZ1jdJHJiAPSaN2Vy GN8fCAWgClj0SFZ2RED9 GBMoTDIvA0LjXG3jQIDr rGCmMLb7n9qscIowTTUw CFO0m2tqCAafsaPuNL6v ov0dqKz8v2vqfqUpFDOi SQTkvGCMRTDjM8ZtxAws El0irYn8sVjsSpifUPF7 Icu2TG1aze43uoj1mSwt MUKpnnjaLjE8HSkzMOHl vxmyNMa5KWduAQJvvZT3 WLPogPShF1JuNAVkUN2l tcp7KNC7IGmkJIHnPlB2 NDBcaGVhZGVyeTcyMFxm y606OBX5CjEyES0bV4Ot t5W9mG7mrCUwAXCwrCKt LnMoSDCrsx3rdQFiLLnp d8HbIAQ7hkJ8pHYuqVZb PQBdYJ99Pclwx2GoCpxu NOG1SMVpyvLze9Cmm3bw HjNtevOxR6faF4NeNQTp GMIcKOSuJuDbxqEkz0Hn l4ZnpUPffSt7x5ygIWKv YGGucUlfa8ssTEP4TQEi V2P5bBHyq9kxVBaxYZLi iCN3tzZ6QVCmnVRjR3Nk nJ9wIHHkZZ0pnov0r9yo ZIJ7IIlxDCCpEeW2fcF3 NDBcaGVhZGVyeTcyMFxm z012JSY8SxReQIWsp4Rg F3WrrDcfZ19hzDrqD82y EAJvwCjxsJ9znNrkzX9i ZjBcZnMyNFxxbFxwbGFp qvspZRpbijE2RZgylqkf LTXoXVhsC9whSrOgMUGf qLzwDAcqf1HpACOjGAUe ZpzekrU9RCZOm88fDBDr x3EgAEZbmN8xzMMaEJqq ayUjhCB3NVkqroVzYkLd qaSiUNTibL0lEMSmRM1x NEWunxDyop5kqvHqGPNz TYIiG6GfsmjijHcpghAj HRBzim5noxUpOPM7GCEN GU3GWLQkGTTkq97fEBSg pDnkoM4egPVbkgXzRGAm i5YdeK2ftSFPPZSgN5sj WK5hSOtje1QtsIUxeTBk cGE5XXTox2DoCcCzphJc gTLkoAGkU9LokQhwX3sp UYMvCBPyrdJkiYDlv5Gk CKKipRF2xQObCM3XIbTH s99tLKBtCGTOupZrECLz bQwcxKD1gaG7aD7dKhUW ZiBhcHBsaWNhYmxlLCBj x418xs8zkvG5UMWfINUg lpdfp0YvZCSxKTXirT18 SJYiBQByja6zdgqwqDYg yvZsU2Hhifw2cV9iMENm YWluXGYxXGZzMjJcbGFu ZzEwMzNcaGljaFxmMVxk ZhLzNANgLYiuS0zbYgLw ZnMyMlxwYXJ9 MD [facility] [id number] 00:43:58 Test Item Value Reference Range Interpretation Comments Final Report (test No growth code = 8488) Path Review - Urine The results have been (test code = 8483) reviewed and electronically signed by Pathologist:MYA DRISCOLL MD #[id number] MD [facility] with [id number] 14:57:01 Test Item Value Reference Interpretation Comments [...] implementation of new instrumentation in the [facility] [place], allowing greater sensitivity of measurement. Urinalysis results reported by the [facility] using existing instrumentation, as well as Urinalysis testing performed manually or by backup methodology at the [facility] [place] will remain relatively unchanged. New reporting parameters and units will now be reported for all campuses. Lab Interpretation Abnormal (test code = 55376-3) MD [facility]inal[facility] w/Microscopic if [id number] 14:43:21 Test Item Value Reference Range Interpretation [...] NEG Lab Interpretation (test code = Abnormal 71222-4) [facility] [id number] 04:31:58 Test Item Value Reference Range Interpretation [...] d message] code = 2018-09) The system [employer] generated this result transmit valentina reference range : 35 - 45 mmHg. The reference range was not used to interpret this result as normal/abnormal . POC AB pO2 (test 51 See_Comment A [Automated message] code = 3-7) The system [employer] generated this result transmit valentina reference range : 80 - 105 mmHg. The reference range was not used to interpret this result as normal/abnormal . POC AB TCO2 (test 31 See_Comment H [Automate d message] code = 2025-) The system [employer] generated this result transmit valentina reference range : 23 - 27 mEq/L. The reference range was not used to interpret this result as normal/abnormal . POC AB Bicarb (test 30 mmol/L 22-26 H code = 1960-4) POC AB Base Ex (test 7 mmol/L -2-3 H code = 57855-5) POC AB O2 Sat (test 89 % 95-98 L code = 2708-6) POC FiO2 (test code 28 = 88107-9) POC ABG Draw Site Rt Radial (test code = 06261-1) POC Adam Test (test Performed code = 22160-3) POC Sample Type Arterial (test code = 6690) POC Clean Dev (test Yes code = 6672) Performing Lab (test [facility] code = 76068) [facility] Cli nical Lab, [address] [place] [address] [place], [facility] [place] [address]; Motel Manager: Dian Bedoya MD Lab Interpretation Abnormal (test code = 71337-2) [facility] [id number] 04:31:57 Test Item Value Reference Range Interpretation Comments POC Critical Comment See Note Test pe rformer notified (test code = 8955) Ordering Licensed Provider and /o r designee of POC AB pO2 critical Result s. MD [facility] Glucose [id number] 04:06:55 Test Item Value Reference Range Interpretation Comments POC Glucose (test 92 mg/dL 70-99 RN Notifie dCapillary code = 12301-7) blood sample s, e.g. obtained by fingerstick, [...] Capillary (test code = 9554) Performing Lab [facility] (test code = of Dewey LOCKETT And lara [address]) Clinical Lab, [address] [place] [address] [phone]; Motel Manager: Dian Bedoya MD MD [facility] Culture w/ Gram [id number] 03:31:55 Test Item Value Reference Range Interpretation Comments Final Report (test No growth code = 8488) Path Review (test Culture yield may be code = 8492) affected by sample quality, prior treatment, and transportation conditions....The results have been reviewed and electronically signed by Pathologist:Bryan Alvarado MD, PhD #[id number] Gram Stain Report No WBC's seen.No organisms (test code = seen. 69525-3) MD [facility] Specimen Collection -[id number] 17:08:53 Test Item Value Reference Range Interpretation Comments Yasmaniruthie Ap Link (test Collect ion date/time code = 27001) has been modif ied to: 11:06:00. Prev ious collection date/time: 01/17 11:06:00.Megha montgomery from [id number] [NA] on 03/08/21 11: 08:53 INTERACTIVE MEDIA SPECIALIST by Taras Tariq. Cytogenetics (Received) Yes Lamin ection date/time (test code = 8304) has been modified to: 11:06:00. Prev ious collection date/time: 01/17 11:06:00.Correc valentina from Yes [NA] o n 03/08/21 11:08: 53 INTERACTIVE MEDIA SPECIALIST by Taras Tariq MDCytology Image-Guided FNA [id number] 15:47:50 Test Item Value Reference Range Interpretation Comments Gross Description (test r6zohPReEEQuqQM4XrSjIA code = 7095431265) Xmv3usq2PkxNMtoOUxBEko yNDdqjApzv84rKL8uM62UE 1iTHXzVnE7NIFdvkQ9Tbp6 MAKuYJOnbMXyD874s0gmy8 vjzrEjzWZ8VBOtAHGdF4De NH8cJLRtiHUnQ92oxEMvMQ E1UIRqBEKyhYTgZJMdCTY4 GVErsLQdG6jsJUNnBG9ird xwQFwqAVmzUWJlkTZ5POMm fHGcF6ZcKMZeTIueTDOtxm m8UmZsUu5woRAbuIvfLVql LOYrd0sjKORnxMIeGDQ5RG wtiGVmTQKnXSAiOCo2CXMb RHppwGAyGC4odFioSsvnbI rzv1WncVTeFSgxBSNiLNGq XRshAFZzR2GETZHpSfMxTR SsCzNwHLd2MOnxB0TLYORr SBG1EDe8EON1BaL7NTx2IU WSJv4iDWX9EbUiDsI4QLP2 FBY8WZekvMJkVMdkKalkSL xmIEFyaWFsIFxcZnMgMTAg IYzkOhDkWY9blTiqgRIqsv xiXGZzMjAgQTpccGFyXGIw RMDxCYOXjJIslN7rdhCxsL DvK8RtKYO7PUYvsuRpMYOg ZmYgUXVpazsgMiBQYXAgU3 RyaP1aE9mbESDmOBEtnxTa WOYncVwlIKDyw0IzC5S6WD XkKIzzh2qpHAAkFHvqq3Bg UXhCKADWSM5VFZ0bnDA2MN nBLPUMB5jWwOD0VcHczNM9 TF81EZFmFPKniGUiZXxuO0 74k2zlF0l1pJfeK3esiZO3 IHnyxo14LVY3CQjbNzhecV I1ACnxWrgacJ7qyAYXFKQZ GzdNSrqkoiVkAC7PGLeBMb HAET27Lb45YKKxYKTngQJc TOeyG840Zhwjj6E7m4zlnK VuAOcpFwwquTKaiyL5JKaB ILETXMuWKfAlCS0qXDvUOV UAIxF7Sx43FMWeXIFkrCPc LXfbX101UFSwSValGDZrx7 LfK7JaUoKzOJhmTaKaLRMo aSsjv3cufUTrFFgyGdetpQ ArszA7GUpNPCEFUQrZGsCm HJ7kJEzVW2TFSjN8UjP4Ji A6KUogzUkbFxubzsQwrZVl XaZthN8wqKtfrT6nQkMpBJ xjZjEgIGluIFJQTUlccGFy OXLdFypMA2keSZOoIOOMEK puYZMex1KeNBZccxFHZWNe H7XhcGVqDYivM3UqSVdkGI Ngel3qgNkfKdPaaRWvsGRe mFzuDrqgiRQ3SSapCsnmgS 5zdCBIWVBFUkxJTksgbmFt UP4ZEU6JGfTHXJ42FTVtZq W3R4nHY4MIZRXASEB5JNk7 hAJ8mR40QSVmUZVcfZYnLE jvE422VLQhYPQeSwD3YVXz EUcyh8isFUUgIKuyf3DyQF pRGSHYUF7MET9oyOG7KMeZ Y0JTHGh5GJH3KoqunGMTSR WMQYUWNJgynHg3ZXj1pPyr HvgghnZvpLOrVxZxyI3xnF ljlL9yVbKdLOioOwJdPQJi BFU5FUMsnpdfYPPaE5c7TS kmIg69KLLlRDpuFjWokwOg dHJvcGVyaXRvbmVhbFx+bH vhsEgxyr6bRT44TGZieKRk PWC0ZM0xbLdoDIImZ5IgX8 ImmhE7QNWtftv4ERNQARKV JBgQQO4ZGJFZDNXYCL0SEA oHCiOrDKP4GAyiDWm1ThVp B18ETmGMWUWBZ38GDFJCVI CJE1JSKPDCDTbAX9LZYH7Y GUNEPAJZBW2DHUdZYqQaRZ thjX1uBBrOJXhZG7GKAW9N OAQAKPSRZD2DWuUiPZbUN9 DGV7cAJVUqRFXLFSOUVQLc BjLUMH9jEIs0Zsz4kZB6Am U6KpQaqIVWAMXDNTrMTDQI Hv4OSRLSMIIIER1KRbZyV3 PGQY2QKq9FPKOGCDEWAG4V WAxPHaCkW4UCAG7TZs6ZNG CIATRXZR2JLvWcFCAXF0ZY VoJVE9frHNHWWVTEPAJaGe PNBD3eJRICCQ5WQNGVROHI G37EOCCKEJHQN3EVNS7= Major Classification Nondiagnostic (test code = 9839) Diagnosis (test code = h6svvPPaQCCdjXX8JuIzNE 34) Jft2pqa7XfmBXfwCBtNWin gOLlnkCope40kEK5eC69IT 9bEVQmZkZ5RXAsfaA0Jrl8 UDBkAZKadYXpG634y2hna6 dqwkScdSW6UDYwJXGoN5Xh KA8yZZHtaNLfJ73csHNqPK F9ZAXjWQUcyNPtARGgPVD9 MTLlbFWsQ7mrGHBiDY3vwy kwOQdvRVuhNQTjeAC2TAUy tXIyU7MrLMHdZHfrFVMfsb t5AgOpZh4nmGYpgKzwDYhd I8cjuS1lToW1ZUpeL0wjgG 5fBKi1EGhiZBPqjYD9cfJ0 DAPgvGZqY9IqhM3xRBFjXM 8gsxm1c8fqUUQ2RCcgEAFy NpT1soU5FQQwkMYuXBnifM FpblxmczIwXGNmMSBBLiBS HKEwt4Rzhfq3p02gxU2iDJ xlZnQsIGZpbmUgbmVlZGxl QEAieKdvKGGco966EOzgXF JcdGFiXHBhclxsaTcyMCBO q86hNNibB05dc2PeZnOlzZ BjiI2atyhdKORkNiNtAALv QOydgzXoBRYgKDTvwD4dgV 5iRHOeIOsqusNct8LyNFIe iE5kclMgZRflOGDowPRunK == Comment (test code = a9txpJSlZONvsVW5AhRtMU 9835) Msr1fog9WivGIzcALjOShh cFRqbjImqe95uEI8eP23PG 7xEIHiHxS5WMBrwkI2Bhf0 VLUmOMCuhIQzT763c1fyy4 ocvaZuhQF0GXHwYXUlG0Az KO9yWEEudFAbO95cnQLpXK S5ITPfMFGvzRYgHHBqCZU4 ZUImqVIdM5vxSZXkFK4tnj waMPptNDofINFyeHQ4OOFy jJKnF7GhKSJgOZuwWCJehw k9LhTqTp8mpWBpqEzyOUxj YXJkXHBsYWluXGZzMjBcY2 RbGEAju6qvG8n9t29cxUJ2 MOStTAs6n0xvTPpRGx4pOl 6fSEE1KLGqSXDhm6sqUPTi Z3Ots1kfsnAxYKJsE3XypH TxIAgef5IzWcjbmUCrtDUu g6VzX1epgpZydYS9TCKwTK e6j9xmUhKAtSEep3Auj1Qs BSFuAJJqp22xoWVoYA18kS ifSUDihDofGIToH70jJLOr MLBhfOFkCnwlaVF1XXoIMr AaAMKlMaD9RQBpk6BvLJKa INWlboe6rGJhEKAtLTwpa6 Rkou8yQJAnsikvUIOpG1Bt ILZcrHdmDyrnN1eil1BznR pgvxZxdfVgg458ctphbKNf auxazA3cpTatOFStGYjil8 Evie8kOFYgvmzaLBV5 Retained/Biomarker a1lvyPTlITFvrVZ9ViPsAU Testing (test code = Oho3dfb7EhlQRtcGDvJYex 9810) iBKjjcYwos12jZP6sQ22IV 9vKMNaAyK1MOBpqbC5Yxf1 GYScJWLtrMYfR526w7ykc9 pqmkWrqBG6xPwmSKCilbfq PlW4HGdbQODepxecSJt7JZ yeRSNqsQI3QXShwLRsL6Bb BUGgJK5cbew3FNK1BWydOP VvUuN6CLPtqBTmTGVspYgv YSdne546FAY8BxNtKNMyno EqhMtqiO8jGpWsJYPVMrxl NCBTLCAxIENCXHBhcn0= Informational Points z4esmCSsRKQyyIQqXaJxSA (test code = 9836) MuGYAnk2rbSHQcnAOjMkPx MzNcZnRuYmpcdWMxXGRlZm Xzs2bxz639wDCmn7nbVEXj DkN7aAHqHNCciIHrZ967VY ElJVfjd7qqh5ZwETUdzTEy b2P6TBISVXneKGSKIDy5y5 edWjPhBgL9fHLjFQhqO9lq ygLozSJuYPBsWLm4mT74CZ KylK8psNYaYOxuhiQbZhL1 OOdoCSUbRlI3BBHvtQDfEB GvH1ayMRQsXZkzFNJvXIws hKBxWWJ9nKfzp3V0hMTfxX VamYneIgXwZbWkOzXJv0Jg WJm7xYtsZ8MoKZJpDwF9uL QgUGFyYWdyYXBoIEZvbnQ7 yB87DBvtwaJ5jIGrl8Oks1 8bd104aM6vnTBzATZ1FJCq FSJubKYnCOKdDCI5OUBdeS TpQ1zkTZJvGO0vkkhvIXwx RHioLOQimGH8LUVpoLRsR9 JyXNYjPLbtNFCagdq5GaRc Bg5cdWTnaUbkBLjqp9lzi1 aisLZeKdv0WJTiGwWsZjgd RIqqw5Txh8knUTFamf5eSG I3tOMtsCzfj0N2bKXlEAPj zTRbtcLhJXHbYhL1YEuuGD 2xpk10DTZyIQQ3wu0dwZGd wXdnxvYbwPWmHOrfM3PxEI Ahf856ZBYtZ3JuLDAlv9H4 fpDfSeCgIKZjpDM4viQ4CV SlBGi4nHGrwgU6ygHdrHSy M2wrdG2cMODlOQ7krcffg7 urNSrlDWhrJBQzmGV6fgS1 PXPxbJExW6ZppA7mQUYgZY qdJWUwwxd1XrSfYb5rbODc eTcyMFxzYmtwYWdlXHBnbm NvbnRccGduZGVjXHBsYWlu XHBsYWluXGYwXGZzMjRccW uhqQbxmK2oZgFqHqVvKBbf EV8zVXIiA5pyzWXnCPKlSO JbX1zsWjDgrU4piTofELrx mjX8PHzhI82pZPE2WBJ7nx RyTPVdqzYuCHKzKBObWA6s qYXxJDEoQWScJX9hEKC3ZK dvnXFjMQRbXJNdLFKjl7Nk CC0zUORtsXOvVPF3HRKsr2 NxW7PzDJT2ZCMjcF5dPARv eSBVVCBNRCBBbmRlcnNvbi TJYAYjy6aeP6cjPI0uLIgd Wl9bIYRoaxgdSQVceGCwwp FpPNHkHEIwONCqs5SxXCmq ynQgdi42NEJhDO3hk8HqM9 brsRVqzRv2EWDjIWPfXKOt t6KaJHTjmf18RRIuEfqfiP txXOZfDt3uBf7sBXMmyaGa ROX0RcUTVI3vfayxcURdzO sjnr3aJZKoGBatOXOxMNTo MjJcbGFuZzEwMzNcaGljaF wcBcpxRdCzAIAoZWxfB1wb ZjJcZnMyMlxwYXJ9 MD [facility] [id number] 20:52:01 Test Item Value Reference Range Interpretation Comments Final Report (test No growth code = 8488) Path Review - Immunity and antibiotic Bottle/Isolator use may render culture (test code = 8499) negative. Ongoing infection requires repeat culture. The results have been reviewed and electronically signed by Pathologist:Wenceslao Lee MD, PhD #[id number] GRABIEL (test code = Quantitative blood culture GRABIEL) Isolator tube is QNS for testing. Refer to qualitative blood culture for test results. MD Zunigaingitis-Encephalitis Multiplex Panel Path [id number] 20:47:05[facility] Path ReviewReviewed and Electronically signed by Pathologist:Wenceslao Lee MD, PhD #[id number] Comment: Assay is a multiplex PCR assay to aid in the diagnosis of meningitis / encephalitis. Results should be used in conjunction with other clinical and laboratory data and not as the sole basis for clinical decisions. Assay should not be used for monitoring response to therapy. WENCESLAO LEE MD, PhD - [id number] by: WENCESLAO LEE MD, PhD - [id number] Date/Time: 03.06.2021 14:47 PM INTERACTIVE MEDIA SPECIALIST Transcribed Date/Time: 03.06.2021 14:47 PM CSTElectronically Signed By: WENCESLAO LEE MD, PhD - [id number] on 03.06.2021 14:47 PM [facility] Non-Lead Java Software Engineer Interpretation 2021-03-04 22:56:50 Test Item Value Reference Range Interpretation Comments Gross Description (test h3lomEFeAGIinIKZRF code = [id number]) cwMFxhbnNpXHNwbHRw M4JzuhpjLOhcLR3mUX 9dlXdyoQGzuPRyGW9R XGRlZmYxXHBhcGVydz EyMjQwXHBhcGVyaDE1 AUBwHN0xevcfCUlnSV zfRLBgstO0RBWxwOWb P3SyTNRvQG6wjenpMJ H5LUhqiY2ewdABKkop Gh8wfMObkGxvSgFsZt NoYXJzZXQwXGZuaWwg XURzYNg5tB1WNhmeM3 7lh7N0Vmn8MZOpUJQb F7HnAY6vPZKmmMDbX2 8GXkqlLRB8RDEJAdum EQRmGM8Iv8ypINJrhB XjYQC1WCyuoUOsTXGm AMIfTNp4PTSnYRkwaC FzCL1ovMimVyjimXvg y7PehMHiZNsiFMYdKH NbMKbkQKYuXZ6JNzIe AWCiQvWvJTHlONq0RX v9OM9IZvLhCXZyOXo4 WNV8OJYoASn3HQxwJV 7KTJejUHvdVma7SUR4 NTQxNSBcXHQgMiBcXG YgQXJpYWwgXFxmcyAx MCBcXGZiIFxcZmwgXF htP73yxJheqH9jLeio kjDlYLY3QNFhkeVPQr xwbGFpblxlcGljTmVz dERvYzEgDQpcbHRycG FyXGxpbjBccmluMCAN ClxsdHJjaFxjZjFcZn MyMCAxIERpZmYgUXVp ionuIVJCACFzQ4KzeT 5iF4fsDVGsFJIlamHH NwTobIrmLMnffr79EY V4d6fdsCNvIMicPwco sTSusxK4FSpIWJIRNG rGVeCiSU7xJOiMF8UP HFcWWccnZLE1VYkwaS R1a3diwRIkr1f0ABml KRT6uELmBWXxZCxkye 74CBU4RHdlZwgcjFI1 JYkeHutdiD6xnYCZUO KSRpjBIhehvvTbPS5F EYeFUrLQYV48Zy87ST TtNOAnyGPdLZnpA764 L06bw0TsWJLwy7mdgU VsZHtcKlxmbGRpbnN0 IEhZUEVSTElOSyBuYW 6zKQtCYMJEMxM0Bo28 XGZsZHJzbHQgXCcxQ3 71XUMcZMfhMAm4rsQd KJLez8VuL0VzW9BsWL BpVcGfGCLkmBjpu4gy aWVsZHtcKlxmbGRpbn S0BZwDGSWGZZwTFfRq HY4mTOxFN2PEZaW2Ko I0TgR6BCakeCwoJogi aiMkzRWvWkPOhU2rcN jpjS7wiJQdX7niZ4Gv DUJkHpXhwPLoNH9YKT Mlg8VaU3W9EPCzOPcw s9xvYLQdFDfce2KrWA gGXBTRJP8IZJ8koMC8 PYvRUQMMI7wKfRJ8Cn DvoLS9D674WNRjQQWm wHOhALbzV206E3LyF2 wzUC6zJ75uB8GnlAZy wIPlLPB7HHI3bK4xML 16mvflfYxgoUygyaH8 WVXvmkjypVR9ZNKeJI eyy9wnOIJqDMzdj1Ru PCvUDXGQCG0QDI6abG S4RRySKTCLHDnyVRE8 WMcwcEB6x2lmxLFqb3 a5VJotOZG4bOrsvWUg blxsdHJjaFxjZjFcZn PqNMTBIaz8PNQJAJYZ GYuDNP4NWKAFKBYJVG 3GXSpQEySdYMR1GCvd XDF7EmAvXnM9GkQ9Dm 8jOLRPMOAMIKbYRM5X LYOCENJJTU4PSsWmW6 lMRENBUkRfTUVUQURB BCZgGaZJUH2eVnz1V8 2ym7WqSUUkN0fAUJVQ UkRfTUVUQURBVEFfRU 6QOZNPSKWFIQ8CHSWC G55QBSCYBGXMP1IEW7 kJDJPag5NhbNkqMyQ5 LoUnVE8qINeUm39yCT 20ivX9sR6zVZVnI5si tES6MAkrVHZ9QDu3IZ WVYZYSGR5SMUBHP21Y RZUHOADUI6FZTCDVUw NXSAWLK25RQVKVTAHR F8XWK2jWAXWYQtAVAS CYO47HBFULVRHPV2NT RCBBVVRPUkVGUkVTSF 9SZDGHFQSUPI3VNAfP TcNdTNKNI4LCVuLDJ5 nbHVKHQWMWILOsWG0X CCflIEQjM59cq1XVz7 GtJEAuw1ivhWidc8Pt dGVuZFxwYXJccGFyZF svzM0cBqAqc8wuaTm1 JWkgdnB8WMQvas5hwY bzeX9sUCqjv0ybNQC4 XHNsbXVsdDAgDQpccG jilS4vKxZiGax5RHdg CGTxA5KxE6AwrtO6NJ BsYWluXGZzMTYgDQp9 Major Classification (test NFMC/benign code = 9839) Diagnosis (test code = 34) h9gixCEnFZEvyXL2Cv SePFRrv4bgy0KisOJj cGFyXGpleHBhbmRcbm 34yUR1jL21EK8vMXXn CoI5NSIqeqY3Dbd6XZ MqCCWunKFvO303v2ys o9dokrKnnBM4SXDaWP WsN0SlTK8fQCSwnLRu K08xqICoLMI7OSQtMK NjhDOaDIOxFSE7RUJr zHBiI4faZNWoXX9uwd dyMTgwMFxtYXJndDE0 QLCwpGKyF4RhTCFzTM kjQBFwdpb3ZoCcLh8c kAKbsRnjTMblI0aukE 0iVtC6RWhtA7sbeJ5u TMf7WJxwUCJqsKV8vc K1CEUyfSLwF0WfxS4r PJZtJC1iyno4l3pgLH Y5ZJzlYAKyRcU9bdV3 NDBccGFyZFxwbGFpbl xmczIwIEEuIENlcmVi by4oaJhiILcqQjh9aC FnMUm5iCXgacEnaN7i dHVyZTpccGFyXHBhcl j1YTOmAn7ghXRmaSom LS14XNDnwJsjGUbqBB 50aWZpZWRccGFyXHBh nrPlI0WhUCLxpk7= Retained/Biomarker Testing g3vquRWbKDFwyAN8Ms (test code = 9838) BaYUBag0qoq5GqsOTe cGFyXGpleHBhbmRcbm 06gWW9dM52HO5oYCYl MtU1FYQjloS8Stt9RZ XsCFWgzDFaV281m5yv d9vwbmAjnFT2aGmlOG OqaecyCzA5BXhgIZPu pgeaYGy2XTcuAPZijW D2AHPmzUPmE9SiGTNb EQ6yiyy0SQS5AMedAY UbMeJ1RJLmiPGvPUOc dOgrLUewf786XKT3Ue UyPEDmgyZhnYiiqT4d ZnMyMCBTUjogMiBTXH Bhcn0= Informational Points (test o8jzxPSeQRVmuYEtZg code = 9836) LsCFAaJZKvd5saGOYj bGFuZzEwMzNcZnRuYm zvlCFtYIUdKyMff8xn x693sNXtt2uxHWTbYl Z0uTScQAGgeYGiQ786 FGJpTTksa6isl4RdAM AbaWQgi6O9HPABISly WWNWEGr9v4hkNiYzYi W4sAKeKVhxW7kfyiCk wCGvRUInUTv3xT79OH AtfY8hiEVeFAdnxfPm XqG6CJqrZKMaXgG6XX FwnKZhLKAjO7bbCUNn XGdyZWVuMFxibHVlMC H3qSlhr4Q9gXQzlEIh dHtcZjBcZnMyMiBOb3 QhELr4pQawA9IuHSHw HwC6xONrMFQvPHdjFO EhOTRvhsY7uH49GWwe kcV7fZJsu4Fcg92bz8 83nV2roKMnOEQ5RXWn GEEdkPYzPLJoGDD5RG HcfDIuO0zbHITdBU5w cmdyMTgwMFxtYXJndD G6SKHztPZyN5AqBDAa NJlaIPZquxz5BxNxLd 8teYEtlKmvRXvng6zm a1uhyFXmRep5LAQyXz DnNmfjJQkgx2Cry9me LJKnrj9jESX8tOGsxG xwj5A6nUKhZGLdwDWc vcGxODPaCsZ4SVtqQB 9vhx44LPJvEGS9yn0e bGNccGdicmRyaGVhZF thR1GqBUVpc631LWUd N4NrRNBed4C2ukOfLl LiBVTeuGT3kwJ7BHUu YWz3gNMztuO5esUdmG TpY4dytT1tAHJyIL2j uycbf1fcXKleWLstJZ BthEN3ycF9THMhoIXl U7NbxJ5tXZEzDFfwIO Suimg6TmRhLz3sdSBx eTcyMFxzYmtwYWdlXH BnbmNvbnRccGduZGVj XHBsYWluXHBsYWluXG YwXGZzMjRccWxccGxh cF7sAnAuOaKqAVrjFU 8vHYJvB3kraYAeEYUb UICxO1egRiWueS9ouZ apNZpcixX2KMxwK05n USM6VQH3uzWqSGMfzj EgNHWiGTFjGC8dpFZq HTExJKNlYW5eRBT8WA xvcGVkIGFuZCBwZXJm t3BcZS6iCANnvRFsJV U4MNMnb9BpM8XiEGI5 GSFsuX5hGBQrgBULTR BNRCBBbmRlcnNvbiBQ INMcu6bfX6uqYL1uZG fjZj5vBCHnuswrRTCr aWNpbmUuIFRoZXNlIH Shp9JoRTenntFscx49 RGWmIB2tq7FqJ9shqS TgyNg1QYRgNBXhYLJn r9VpZGRmxb32KMGqUg vogQjeFSCsOj2fEt1l OXYrduPfQZV3HnSSXQ 4iotqsxQRqiCplsc2b XHBsYWluXGYyXGZzMj JcbGFuZzEwMzNcaGlj aFxmMlxkYmNoXGYyXG rdK0jfNcDeMjSvFhbm YXJ9 MD [facility] [id number] 18:54:25 Test Item Value Reference Interpretation Comments Range Tumor Nec 7.5 pg/mL See_Comment H INTERPRETIVE IN FORMATION: Dkh-Oao-Wfeh (test Cytokines Results are used to code = 7669) understand the pathophysiology ofimmune, infectious, or inflammatory disorders, or m ay beused for research purpos es.This test was developed a nd its performance characteristics determined by [facility] Jeni rhina. It has not been cleare d orapproved by the [place] Food and Drug Administration. This testwas performed in a CLIA certified labor atory and isintended for clinical purposes.Perfor med By: [address] [address] Director: Zamzam Melissa MD [Automated mess age] The system which ge nerated this result transmit valentina reference range: <=7.2. T he reference range was not u sed to interpret this result as normal/abnormal . Interleuk 2-Shaw <2.1 See_Comment [Automated message] The (test code = 6043) system [employer] generated this result transmit valentina reference range: <=2.1 pg /mL. The reference range was not used to interpret th is result as normal/abnormal . Interleukin 2 980.5 pg/mL 175.3-858.2 H Rcpt-Shaw (test code = 6048) Interleukin <1.9 See_Comment [Automated mes celestina] The 12-Shaw (test code system [facility] generated this = 6046) result transmit valentina reference range: <=1.9 pg /mL. The reference range was not used to interpret th is result as normal/abnormal . Interferon <4.2 See_Comment [Automated mes celestina] The gamma-Shaw (test system [facility] h generated this code = 6042) result transmit valentina reference range: <=4.2 pg /mL. The reference range was not used to interpret th is result as normal/abnormal . Interleukin 4-Shaw <2.2 See_Comment [Automat ed message] The (test code = 6050) system [employer] generated this result transmit valentina reference range: <=2.2 pg /mL. The reference range was not used to interpret th is result as normal/abnormal . Interleukin 5-Shaw <2.1 See_Comment [Automat ed message] The (test code = 6051) system [employer] generated this result transmit valentina reference range: <=2.1 pg /mL. The reference range was not used to interpret th is result as normal/abnormal . Interleukin 24.4 pg/mL See_Comment H [Automated mes celestina] The [employer] (test code system ich generated this = 6045) result transmit valentina reference range: <=2.8. T he reference range was not u sed to interpret this result as normal/abnormal . Interleukin 2 pg/mL See_Comment [Automated mes celestina] The 13[employer] (test code system ich generated this = 6047) result transmit valentina reference range: <=2.3. T he reference range was not u sed to interpret this result as normal/abnormal . Interleukin <1.4 See_Comment [Automated mes celestina] The 17[employer] (test code system ich generated this = 9390) result transmit valentina reference range: <=1.4 pg /mL. The reference range was not used to interpret th is result as normal/abnormal . Interleukin 1 <6.5 See_Comment [Automated me ssage] The beta-[employer] (test system which generated this code = 6044) result transmit valentina reference range: <=6.7 pg /mL. The reference range was not used to interpret th is result as normal/abnormal . Interleukin 6-[employer] 28.6 pg/mL See_Comment H [Automat ed message] The (test code = 6052) system [employer] generated this result transmit valentina reference range: <=2.0. T he reference range was not u sed to interpret this result as normal/abnormal . Interleukin 8-[employer] <3.0 See_Comment Test Per formed by:DILIP (test code = 6053) [address] [place] [address] [Automated mess age] The system which ge nerated this result transmit valentina reference range: <=3.0 pg /mL. The reference range was not used to interpret th is result as normal/abnormal . Lab Interpretation Abnormal (test code = 63459-5) MD BlackwellFlow Cytometry Specimen Collection -[id number] 16:44:12 Test Item Value Reference Range Interpretation Comments Flow Cytometry Yes Test performe d by:The (Received) (test code [facility] = 8319) Rishi Cancer ChesterFlow Cyto metry [id number] [place] [address] Imani Ap Link (test [id number] code = 18309) MD AndersonCryptococcal Ag Path Gddzwm3422-64-10 16:23:24Crypto Ag PRReviewed and Electronically signed by Pathologist:Wenceslao Lee MD, PhD #[id number] Comment: Reference Range: NEGATIVE The Cryptococcal Antigen Lateral Flow Assay is a dipstick sandwich immunographic assay. Positive results will be titered. WENCESLAO LEE MD, PhD - [id number] by: WENCESLAO LEE MD, PhD - [id number] Date/Time: 03.04.2021 10:23 AM INTERACTIVE MEDIA SPECIALIST Transcribed Date/Time: 03.04.2021 10:23 AM CSTElectronically Signed By: WENCESLAO LEE MD, PhD - [id number] on 03.04.2021 10:23 AM [facility] w/Pxloj8911-45-09 14:54:28 Test Item Value Reference Range Interpretation Comments Final Report (test Culture ongoing. code = 8488) Pathreview issued too early. Patient credited. Path Review - AFB Partial antibiotic (test code = 8477) treatment can render AFB culture negative. AFB culture has sensitivity of 90%. The results have been reviewed and electronically signed by Pathologist:Wenceslao Lee MD, PhD #[id number] GRABIEL (test code = Cultures are held 8 weeks GRABIEL) before finalization. MD BlackwellCell Count w/ Diff Cerebrospinal Szfyz0447-53-14 03:10:32 Test Item Value Reference Range Interpretation Comments Type CSF (test code = Tap When r eviewing the 49309-1) cell count and differential re sults, clinicians hermilo aleman consider the le ngth of time between spinal fluid collection and testing and the clinical condit ion of the patient. Appear CSF (test code = CLEAR CLEAR When reviewing the 22980-7) cell count and differential re sults, clinicians hermilo aleman consider the le ngth of time between spinal fluid collection and testing and the clinical condit ion of the patient. Color CSF (test code = Colorless Colorless When reviewing the 91416-0) cell count and differential re sults, clinicians [...] the patient. [Automated mess age] The system [email or web address] h generated this result transmitted ref erence [...] the patient. [Automated mess age] The system [employer] generated this result transmitted ref erence range: 0 - 0 /m cL. The reference r sheryl was not used to interpret this result as normal/abnor mal. Tot Cells CSF (test 4 When rev iewing the code = 93750-3) cell count a nd differential re sults, clinicians hermilo aleman consider the le ngth of time between spinal fluid collection and testing and the clinical condit ion of the patient. Neut CSF (test code = 0 % 0-5 When r eviewing the 70579-1) cell count and differential re sults, clinicians hermilo aleman consider the le ngth of time between spinal fluid collection and testing and the clinical condit ion of the patient. Lymph CSF (test code = 50 % 28-96 When reviewing the 42709-1) cell count and differential re sults, clinicians hermilo aleman consider the le ngth of time between spinal fluid collection and testing and the clinical condit ion of the patient. Histiocyte CSF (test 50 % 16-56 When re viewing the code = 57472-0) cell count a nd differential re sults, [...] condit ion of the patient. MD BlackwellMeningitis-Encephalitis Xxnyc2730-73-85 22:29:31 Test Item Value Reference Range Interpretation Comments Menin/Enceph Panel CSF Lumbar Assay is Source (test code = [facility]-sheila red 9391) for spinal fluid obtained via [...] code = 9158) Antigen Assay. MD BlackwellCryptococcal [id number] 21:26:30 Test Item Value Reference Range Interpretation Comments Cryptococcal Antigen Screen (test Negative Negative code = 15969-3) MD BlackwellProtein [id number] 21:14:18 Test Item Value Reference Range Interpretation Comments Protein CSF (test 36 mg/dL 15-45 code = 6894) Type CSF (test code Other When rev iewing the cell = 7672) count and diffe rential results, clinic ians should consider the length of time between spinal fluid co llection and testing and the clinical condit ion of the patient. MD BlackwellGlucose [id number] 21:14:17 Test Item Value Reference Range Interpretation Comments Glucose CSF (test 59 mg/dL 40-70 code = 5697) Type CSF (test code Other When rev iewing the cell = 7672) count and diffe rential results, clinic ians should consider the length of time between spinal fluid co llection and testing and the clinical condit ion of the patient. MD BlackwellHIV-1 DNA and RNA Qual [id number] 13:26:31 Test Item Value Reference Range Interpretation Comments HIV-1 Undetected Undetected Repeat testing in 1 to 2 months DNA/RNA is [facility]-1 infect ion. (test code ----ADDITIONAL = 76889-1) INFORMATION---- Th is test was per formed using the [employer] RealTime HIV-1Qualitative assay ([employer] [place]) .This test was developed and i ts performance characteristics determined by [facility] in a manner consistent with CLIArequirement s. This test has not been cleare d or approved bythe U.S. Food and Drug Administration. Test Performed by:[facility] [address] [place], [place] [address]Zqf Direct or: Jaycob Izaguirre M.D. Ph. D.; CLIA# [id number] MD BlackwellAfvvidusyGAI2170-39-24 11:25:38 Test Item Value Reference Range Interpretation Comments aPTT (test code = 6773) 37.3 See_Comment H [Au tomated message] The system [employer] generated this result transmitted ref erence range: 24.7 - 3 6.8 second(s). The reference range was not used to int erpret this result as normal/abnormal . Lab Interpretation (test Abnormal code = 03707-6) MD BlackwellProthrombin Time with [id number] 11:25:37 Test Item Value Reference Range Interpretation Comments PT (test code = 6746) 16.2 See_Comment H [Auto mated message] The system [employer] generated this result transmitted ref erence range: 11.5 - 1 3.9 second(s). The reference range was not used to int erpret this result as normal/abnormal . INR (test code = 5973) 1.39 0.90-1.10 H Lab Interpretation (test Abnormal code = 34358-2) MD BlackwellCMV Ab IgG+IgM Path Esrobn3586-64-87 15:10:36CMV Panel PRPositive IgG with low IgM suggests previous infection. IVIG can give false positivity.High titers of IgG can give false negative IgM. Therefore, active disease ispossible but less likely with this pattern.Reviewed and Electronically signed by Pathologist:Wenceslao Lee MD, PhD #[id number] Comment: Test performed by an immunoassay intended for the qualitative detection of IgG and IgM antibodiesto Cytomegalovirus (CMV) in human serum. When equivocal results are obtained, another specimen should be -01 days later. WENCESLAO LEE MD,PhD - [id number] by: WENCESLAO LEE MD, PhD - [id number] Date/Time: 03.01.2021 9:10 AM INTERACTIVE MEDIA SPECIALIST Transcribed Date/Time: 03.01.2021 9:10 AM CSTElectronically Signed By: WENCESLAO LEE MD, PhD - [id number] 03.01.2021 9:10 AM C BANNERMD BlackwellTroponin T (In-House)2021-03-01 11:02:34 Test Item Value [...] res ults. [Automated mess age] The system [employer] generated this result transmitted ref erence range: <=18. e reference range was not used to int erpret this result as normal/abnormal . Lab Interpretation Abnormal (test code = 46582-8) MD BlackwellHTLV I/II Ab Screen with Xwetmno1130-11-81 05:22:45 Test Item Value Reference Range Interpretation Comments HTLV I/II Ab Negative Negative Test Performed by:[facility] (test Clinic Lab oratories - code = 23022-3) [facility] perior [address] [facility] [address] [place], [place] [address]Cik Director: John Izaguirre M.D. Ph. D.; CLIA# [id number] MD BlackwellAmmonia Jvdhu2396-17-65 01:38:48 Test Item Value Reference Range Interpretation Comments Ammonia (test code = <13 See_Comment L [Autom ated message] 5699) The system [employer] generated this result transmitted ref erence range: 16 - 60 mcmol/L. The reference range was not used to int erpret this result as normal/abnormal . Lab Interpretation (test Abnormal code = 52837-8) MD BlackwellLactic Acid, Eqfuti9771-09-75 01:10:21 Test Item Value Reference Range Interpretation Comments V Lactate (test code = 2519-7) 2.0 mmol/L 0.5-1.6 H Lab Interpretation (test code = Abnormal 36683-5) MD BlackwellCMV Ab IgG+[id number] 21:53:38 Test Item Value Reference Range Interpretation Comments CMV IgM Int (test code = 5219) Negative Negative CMV IgG Int (test code = 5217) Positive Negative A Lab Interpretation (test code = Abnormal 39262-8) MD BlackwellCardiac [id number] 00:37:25 Test Item Value Reference Range Interpretation Comments CK (test code = 5206) 156 U/L 39-308 CK MB (test code = 11.0 ng/mL See_Comment H [Automat ed message] 5209) The system [employer] generated this result transmitted ref erence range: [...] res ults. [Automated mess age] The system [employer] generated this result transmitted ref erence range: <=18. Th e reference range was not used to int erpret this result as normal/abnormal . Lab Interpretation Abnormal (test code = 81389-9) MD Samson B Core Total [id number] 19:09:04 Test Item Value Reference Range Interpretation Comments HBc Total Ab-[employer] (test Positive Negative A If c linically code = 47975-7) indicated, t esting for Hepatitis B Cor eIgM antibody is nec essary to differentiat e between acutean d past HBV infection. Test Performed by:Gabriella coyle [facility] [employer] [address], [place], [place] [address]Yax Dir inés: Jaycob laughlin M.D. Ph.D.; CLIA# [id number] Lab Interpretation Abnormal (test code = 55987-0) MD Samson B Surface Ag w/Paysyts4799-35-20 18:50:01 Test Item Value Reference Range Interpretation Comments Hep Bs Ag-[employer] Negative Negative Test Perform ed by:[employer] (test code = [facility] - 5196-1) [place] [employer] [address] [employer] [place], [place] [address]Pzk Director: John Izaguirre M.D. Ph. D.; CLIA# [id number] MD BlackwellKeila HIV 1/2 Ag&Ab Path [id number] 15:57:28 Test Item Value Reference Range Interpretation Comments HIV 1/2 Ag&Ab Negative for Interp (test HIV-1 antigen and code = 9394) HIV-1/HIV-2 ____ALECIAANA OSIRIS IA antibodies. No DHAVAL GUTIERREZ MD laboratory - 40[address]Raupaisi by: evidence of HIV ROM MARIA T Sumeet infection. If DHAVAL GUTIERREZ MD acute HIV - 12214Zvicbbbl infection is Date/Time: 01.28 suspected, 9:57 AM INTERACTIVE MEDIA SPECIALIST consider testing Transcribed Date/Time: for HIV-1 RNA. 02.25.2021 9: 57 AM CSTElectronical ly Signed By: ROM SANTACRUZ MD - [id number] on 9:57 AM C MD [place] RPR Path Lfqovuwhyrrxto6376-32-17 15:57:27 Test Item Value Reference Interpretation Comments Range TMP RPR Path The Rapid Interpretation Plasma Reagin (test code = (RPR) assay is NENA TINEO 016607) negative. If a DUDLEY Whitley syphilis [place] BRENDA - [place] [address]Lawwy[place] b y: suspected, ROM TINEO please perform DHAVAL fay Treponemal MD BRENDA - specific 96038Zqanyqos screening Date/Time: 01.28 assay. 9:57 AM INTERACTIVE MEDIA SPECIALIST Transcribed Rajendra e/Time: 02.25.2021 9:57 AM CSTElectronical ly Signed By: ALECIA GUTIERREZ MD - 143 02 on 02.25.2021 9:57 AM Jack [place] HCV Ab Path Hagdcj1857-66-06 15:56:11 Test Item Value Reference Range Interpretation Comments HCV Ab Path There is NO Interp (test serologic code = 8923) evidence of ____ROM ANAYA Hepatitis C DHAVAL SANTACRUZ MD virus antibody. - 18498Ysneq valentina by: ROM SANTACRUZ MD - 78463Qbchdqxo Date/Time: 01.28 9:56 AM INTERACTIVE MEDIA SPECIALIST Transcribed Rajendra e/Time: 02.25.2021 9:56 AM CSTElectronical ly Signed By: ROM SANTACRUZ MD - [id number] on 9:56 AM C MD Wilcox Plasma Reagin (RPR) [Syphilis SCREENING]2021-02-25 06:20:21 Test Item Value Reference Range Interpretation Comments RPR Screening (test code = Non Reactive Non Reactive 298875) MD BlackwellHepatitis C Virus [id number] 03:11:01 Test Item Value Reference Range Interpretation Comments HCVAb. (test Non Reactive Non Reactive Antibody detect ion in the code = 5762) immunocompromis ed and immunosuppresse d population may be delayed or absent entirely. There fore serial testing, correl ation with other clinical findings, and supplementa l testing (if available) should be taken into cons ideration when interpreti ng the results.Perform ed at: [facility] [address] [address] MD BlackwellHIV-1/2 Antigen and Antibodies, Fourth Rbporhzhxx0831-54-15 02:11:00 Test Item Value Reference Range Interpretation Comments HIV 1/2 Ag & Ab, Non Reactive Non Reactive Performed a t: 4th Gen (test code [facility] = 9280) [address] [address] MD BlackwellNT-Pro BNP (In-House)2021-02-24 22:57:30 Test Item Value Reference Range Interpretation Comments NT ProBNP (test code = 62500 pg/mL See_Comment H [Aut omated 9306) message] The sy stem which generated this result transmitted reference range : <=450. The reference range was not used to interpret this result as normal/abnormal . Lab Interpretation Abnormal (test code = 50512-3) MD BlackwellLipid Annmv6590-36-02 22:55:59 Test Item Value Reference Range Interpretation Comments Chol (test code = 137 mg/dL See_Comment ATP III Cl assification 5283) of Total Choles terol Primary Target of Therapy (in mg/dL):<200 Bxrcrciri794-82 9 Borderline high >=240 High [Auto mated message] The sy stem which generated this result transmit valentina reference range : <=199. The refe rence range was not u sed to interpret this result as normal/abnor mal. Trig (test code = 114 mg/dL See_Comment ATP III Cl assification 7655) of Serum Trigly cerides Primary Target of Therapy (in mg/dL):<150 Bycwbo661-234 Borderline high 200-499 High>=500 Very highNon-fa sting triglycerides > 200 mg/dL may be fo llowed up with a fasti ng Lipid Panel. Calculated LDL- C may be falsely decr eased when non-fastin g triglycerides > 200 mg/dL. [Automa valentina message] The [employer] stem which generated this result transmit valentina reference range : <=149. The refe rence range was not u sed to interpret this result as normal/abnor mal. HDL (test code = 5763) 24 mg/dL See_Comment L [Aut omated message] The system [employer] generated this result transmitted ref erence range: >=40. Th e reference range was not used to int erpret this result as normal/abnormal . LDL (test code = 6123) 90 mg/dL See_Comment ATP I II Classification of LDL Choleste rol Primary Target of Therapy (in mg/dL):<100 Vbgmtla163-794 Near optimal/above xogflme794-762 Borderline high 160-189 High>=190 Very high [Automated mess age] The system [employer] generated this result transmitted ref erence range: <=100. T he reference range was not used to int erpret this result as normal/abnormal . VLDL (test code = 23 mg/dL 7986) Lab Interpretation Abnormal (test code = 04599-7) MD BlackwellHemoglobin [id number] 21:03:08 Test Item Value Reference Range Interpretation Comments A1C (test code = 5.2 % 4.3-5.6 HbA1c value s >=6.5% are 4632) diagnostic of d iabetes mellitus.Diagno sis should be confirmed by repeat testing.Therape uti Action suggested: >8.0 % HbA1c; Goal oftherapy: <7.0% HbA1c MD BlackwellBeta 2 Swqfsxuzsihbx2043-26-91 19:21:56 Test Item Value Reference Range Interpretation Comments Beta2 Microglob (test code = 5090) 2.7 mg/L 0.8-2.3 H Lab Interpretation (test code = Abnormal 45540-3) MD BlackwellBywhnqerGuK5656-66-08 19:21:55 Test Item Value Reference Range Interpretation Comments IgM (test code = 6023) 331 mg/dL 35-242 H Lab Interpretation (test code = Abnormal 19313-9) MD BlackwellDjrzsixmAxS8660-45-80 19:21:54 Test Item Value Reference Range Interpretation Comments IgG (test code = 6001) 885 mg/dL 610-1616 MD BlackwellVebfbalcSmH3169-53-87 19:21:53 Test Item Value Reference Range Interpretation Comments IgA (test code = 5992) 225 mg/dL 85-499 MD BlackwellTMP Interpretation APE2027-11-15 14:32:51 Test Item Value Reference Range Interpretation Comments TMP Interp Patient red blood RAJENDRA (test cells demonstrate code = 7552) no evidence of ROM TINEO detectable IgG DHAVAL GUTIERREZ MD antibodies or - 03921Tvsqkxn d by: complement. ROM SANTACRUZ MD - 68425Cskfrorv Date/Time: 01.28 8:32 AM INTERACTIVE MEDIA SPECIALIST Transcribed Rajendra e/Time: 02.24.2021 8:32 AM CSTElectronical ly Signed By: ALECIA GUTIERREZ MD - 143 02 on 02.24.2021 8:32 AM C MD BlackwellDirect Antiglobulin [id number] 01:57:14 Test Item Value Reference Range Interpretation Comments RAJENDRA Result (test code = IgG neg,C3 neg 16630-7) MD BlackwellVitamin D [id number] 00:21:35 Test Item Value Reference Range Interpretation Comments Vitamin D 25 OH (test 28 ng/mL 30-100 L Refere nce Range: code = 8018) Deficiency: <10 ng/mLInsufficie ncy: 10-29 ng/mLSufficienc y: 30-100 ng/mLPotential toxicity: >10 0 ng/mL Lab Interpretation (test Abnormal code = 40839-3) MD BlackwellTotal Mekcbmg3247-77-34 00:18:25 Test Item Value Reference Range Interpretation Comments Total Protein (test code = 7649) 6.4 g/dL 6.4-8.3 MD BlackwellElectrolyte [id number] 00:18:20 Test Item Value Reference Range Interpretation [...] = 14 See_Comment [Aut omated message] The 9345) system which ge nerated this result tra nsmitted reference range : 4 - 14 mEq/L. The refe rence range was not u sed to interpret this result as normal/abnormal . MD BlackwellEbtzcormDVA0965-22-95 00:18:16 Test Item Value Reference Range Interpretation Comments TSH (test code = 1.62 See_Comment [Automated message] The 7578) system which ge nerated this result transmit valentina reference range : 0.27 - 4.20 mcunit/mL. The reference range was not used to interpr et this result as abbey l/abnormal. MD BlackwellTtrfllvqY44423-12-29 00:18:14 Test Item Value Reference Range Interpretation Comments T4 (test code = 7493) 7.0 See_Comment [Auto mated message] The system which ge nerated this result transmit valentina reference range : 4.5 - 11.7 mcg/dL. The ref erence range was not used to interpret this result as normal/abnormal . MD BlackwellHTLV I/II [id number] 00:04:02 Test Item Value Reference Range Interpretation Comments HTLVI/II Ab Received See Note HTLV I/ II Ab was sent (test code = 82866) to a ref erence lab for testing. Expec t results on HTLV I/II Ab Screen with Confirm within 96 hours . MD Domínguezpatitis B Surface [id number] 00:04:01 Test Item Value Reference Range Interpretation Comments HBsAg Received (test See Note HBsAg w as sent to a code = 24046) reference lab for testing. Expec t results on Hepa titis B Surface Antigen w/ Confirm within 96 hours. MD Samson B Total Ig Core Ab (SCREENING) (anti-HBc total Ig; HBcAb total Ig)2021-02-24 00:04:00 Test Item Value Reference Range Interpretation Comments HBcAb Received (test See Note HBcAb w as sent to a code = 33630) reference lab for testing. Expec t results on Hepa titis B Core Total Ab w ithin 96 hours. MD BlackwellCOVID-19 (SARS-CoV-2)Gcerwmqlaxka-GN5866-12-29 23:59:26 Test Item Value Reference Range Interpretation Comments COVID19 Not Detected Not Detected (SARS-CoV-2) (test code = 21603-4) COVID19 SARS Inpatient Indication (test Admission code = 71193) Covid 19 Comment See Note The kayla S ARS-CoV-2 (test code = [place] [address]) use on the christiano s [employer] System [...] sheet for patie nts provided by the sheep and wheat farmer ([employer]) can be rev iewed at: https://www.fda .gov/m edia/765494/michael nload. A fact sheet fo r Health Care pro viders is provided by the sheep and wheat farmer ([employer]) and can be reviewed at: https://www.fda .gov/m edia/217864/michael nload Results must be interpreted wit hin [...] is assay has been authorized by t [employer] for use only un jonas Emergency Use Authorization ( EUA) in laboratories that have been CLIA-certified to perform moderate-comple xity and high-comple xity tests. [facility], CLIA Accreditation #[id number] and CAP Accreditation #[id number], verif ied the performance characteristics of this assay. Int ernal controls are us ed to monitor all sta ges of the test proces s. MD BlackwellPOC-Glucose xjvhl9216-15-02 11:42:00 Test Item Value Reference Range Interpretation Comments POC-Glucose Meter (test 106 mg/dL 70-110 : [facility] code = 1538) [address] [place] [address], [facility]: Web Merchant/Techni jenifer ID = [id number] for [facility] Lab Interpretation (test Normal code = 75575-9) [facility] [id number] 11:42:00 Test Item Value Reference Range Interpretation Comments POC-Glucose Meter (test 106 mg/dL 70-110 : [facility] code = 1538) [address] [place] [address], [facility]: Web Merchant/Techni jenifer ID = [id number] for [facility] Lab Interpretation (test Normal code = 66629-0) [facility] pfzyn2985-15-73 11:42:00 Test Item Value Reference Range Interpretation Comments POC-Glucose Meter (test 106 mg/dL 70-110 : [facility] code = 1538) [address] [place] [address], [facility]: Web Merchant/Techni jenifer ID = [id number] for [facility] Lab Interpretation (test Normal code = 75764-4) [facility] CenterPO[facility]SE [id number] 11:42:00 Test Item Value Reference Range Interpretation Comments POC-GLUCOSE METER 106 mg/dL 70-110 : TESTED A T [facility] 6720 (BEAKER) (test code = AUDREY Whitley [place], 1538) [address]: Web Merchant/Techni jenifer ID = [id number] for ISIAH COLLINS POCT-GLUCOSE [id number] 07:59:00 Test Item Value Reference Range Interpretation Comments POC-GLUCOSE METER 98 mg/dL 70-110 : TESTED A T [facility] 6720 (BEAKER) (test code = AUDREY Whitley [facility], 1538) [address]: Web Merchant/Techni jenifer ID = [id number] for ISIAH MANRIQUEZ [id number] 06:20:00 Test Item Value Reference Range Interpretation Comments Magnesium (test code = 2.1 mg/dL 1.6-2.6 19881-5) GRABIEL (test code = GRABIEL) Web Merchant ID - BS Lab Interpretation (test Normal code = 67226-3) [facility] [id number] 06:20:00 Test Item Value Reference Range Interpretation [...] Calcium (test code = 9.4 mg/dL 8.4-10.2 27387-3) EGFR (test code = 93 mL/min/1.73 [place] [address]-3) NOT ACCURATE CREATININE CLEARANCE IN PREDICTING GLOMERULAR FILTRATION RATE . ESTIMATED GFR I S NOT APPLICABLE FOR DIALYSIS PATIENTS. GRABIEL (test code = GRABIEL) Web Merchant ID - BS Lab Interpretation Abnormal (test code = 69437-9) [facility]21-[facility] 06:20:00 Test Item Value Reference Range Interpretation Comments Magnesium (test code = 2.1 mg/dL 1.6-2.6 85352-6) GRABIEL (test code = GRABIEL) Web Merchant ID - BS Lab Interpretation (test Normal code = 86679-5) [facility] metabolic [id number] 06:20:00 Test Item Value Reference Range Interpretation [...] Calcium (test code = 9.4 mg/dL 8.4-10.2 64434-9) EGFR (test code = 93 mL/min/1.73 sq m [facility] [place] [address]-8) NOT ACCURATE CREATININE CLEARANCE IN PREDICTING GLOMERULAR FILTRATION RATE . ESTIMATED GFR I S NOT APPLICABLE FOR DIALYSIS PATIENTS. GRABIEL (test code = GRABIEL) Web Merchant ID - BS Lab Interpretation Abnormal (test code = 68872-9) [facility] 06:20:00 Test Item Value Reference Range Interpretation Comments Magnesium (test code = 2.1 mg/dL 1.6-2.6 27310-2) GRABIEL (test code = GRABIEL) Web Merchant ID - BS Lab Interpretation (test Normal code = 73557-6) [facility] metabolic [id number] 06:20:00 Test Item Value Reference Range Interpretation [...] Calcium (test code = 9.4 mg/dL 8.4-10.2 95408-4) EGFR (test code = 93 mL/min/1.73 [place] [address]-8) NOT ACCURATE CREATININE CLEARANCE IN PREDICTING GLOMERULAR FILTRATION RATE . ESTIMATED GFR I S NOT APPLICABLE FOR DIALYSIS PATIENTS. GRABIEL (test code = GRABIEL) Web Merchant ID - BS Lab Interpretation Abnormal (test code = 56246-0) [facility] METABOLIC [id number] 06:20:00 Test Item Value Reference Range Interpretation [...] S NOT APPLICABLE FOR DIALYSIS PATIEN TS. Web Merchant ID - [id number] 06:20:00 Test Item Value Reference Range Interpretation Comments MAGNESIUM (BEAKER) (test code = 2.1 mg/dL 1.6-2.6 627) Web Merchant ID - BSCBC (Hemogram only)2020-09-29 05:40:00 Test Item Value Reference Range Interpretation Comments WBC (test code = 6690-2) 3.9 See_Comment [A utomated message] The system [employer] generated this result transmitted ref erence range: 3.5 - 10 .5 K/L. The refe rence range was not u sed to interpret this result as normal/abnor mal. RBC (test code = 789-8) 4.16 See_Comment L [Au tomated message] The system [employer] generated this result transmitted ref erence range: 4.63 - 6 .08 M/L. The refe rence range was not u sed to interpret this result as normal/abnor mal. MCHC (test code = 786-4) 31.3 See_Comment L [A utomated message] The system [employer] generated this result transmitted ref erence range: [...] See_Comment [Aut omated message] 777-3) The system [employer] generated this result transmitted ref erence range: 150 - 45 0 K/CU MM. The referen ce range was not u sed to interpret this result as normal/abnor mal. MPV (test code = 10.4 fL 9.4-12.4 83792-6) nRBC (test code = 413) 0 See_Comment [Aut omated message] The system [employer] generated this result transmitted ref erence range: 0 - 0 /1 00 WBC. The refere nce range was not u sed to interpret this result as normal/abnor mal. Lab Interpretation (test Abnormal code = 55689-4) [facility] (Hemogram only)2020-09-29 05:40:00 Test Item Value Reference Range Interpretation Comments WBC (test code = 6690-2) 3.9 See_Comment [A utomated message] The system [employer] generated this result transmitted ref erence range: 3.5 - 10 .5 K/L. The refe rence range was not u sed to interpret this result as normal/abnor mal. RBC (test code = 789-8) 4.16 See_Comment L [Au tomated message] The system [employer] generated this result transmitted ref erence range: 4.63 - 6 .08 M/L. The refe rence range was not u sed to interpret this result as normal/abnor mal. MCHC (test code = 786-4) 31.3 See_Comment L [A utomated message] The system [employer] generated this result transmitted ref erence range: [...] See_Comment [Aut omated message] 777-3) The system [employer] generated this result transmitted ref erence range: 150 - 45 0 K/CU MM. The referen ce range was not u sed to interpret this result as normal/abnor mal. MPV (test code = 10.4 fL 9.4-12.4 82440-8) nRBC (test code = 413) 0 See_Comment [Aut omated message] The system [employer] generated this result transmitted ref erence range: 0 - 0 /1 00 WBC. The refere nce range was not u sed to interpret this result as normal/abnor mal. Lab Interpretation (test Abnormal code = 11093-7) [facility] (Hemogram only)2020-09-29 05:40:00 Test Item Value Reference Range Interpretation Comments WBC (test code = 6690-2) 3.9 See_Comment [A utomated message] The system [employer] generated this result transmitted ref erence range: 3.5 - 10 .5 K/L. The refe rence range was not u sed to interpret this result as normal/abnor mal. RBC (test code = 789-8) 4.16 See_Comment L [Au tomated message] The system [employer] generated this result transmitted ref erence range: 4.63 - 6 .08 M/L. The refe rence range was not u sed to interpret this result as normal/abnor mal. MCHC (test code = 786-4) 31.3 See_Comment L [A utomated message] The system [employer] generated this result transmitted ref erence range: [...] See_Comment [Aut omated message] 777-3) The system [employer] generated this result transmitted ref erence range: 150 - 45 0 K/CU MM. The referen ce range was not u sed to interpret this result as normal/abnor mal. MPV (test code = 10.4 fL 9.4-12.4 10506-9) nRBC (test code = 413) 0 See_Comment [Aut omated message] The system [employer] generated this result transmitted ref erence range: 0 - 0 /1 00 WBC. The refere nce range was not u sed to interpret this result as normal/abnor mal. Lab Interpretation (test Abnormal code = 93516-6) [facility] (HEMOGRAM ONLY)2020-09-29 05:40:00 Test Item [...] 0-0 (BEAKER) (test code = 413) POCT-GLUCOSE [id number] 22:41:00 Test Item Value Reference Range Interpretation Comments POC-GLUCOSE METER 97 mg/dL 70-110 : TESTED A T [facility] 6720 (BEAKER) (test code = [address], 1538) [address]: Web Merchant/Techni jenifer ID = [id number] for Stam per, [employer] U/S, ABDOMINAL, [id number] 17:39:00Abdomen limited area? Add comment if clarification is needed.->Gall BladderReason for exam:->epigastric pain [facility] 1935 Sex: MFINAL [...] right upper quadrant ultrasound.. Signed: Nayely Alvarez [facility] Verified Date/Time: 09/28/2020 17:39:04 US abdomen [id number] 17:39:00Interface, External Ris In - 09/28/2020 5:44 [...] by: NAYELY ALVAREZ MD on 09/28/2020 05:39 [facility] 11:24:00 Test Item Value Reference Range Interpretation Comments PTT (test code = 78.0 See_Comment H [Automated message] 21021-8) The system [employer] generated this result transmitted ref erence range: 22.5 - 3 6.0 seconds. The reference range was not used to int erpret this result as normal/abnormal . Lab Interpretation (test Abnormal code = 52951-2) [facility] 11:24[facility]00 Test Item Value Reference Range Interpretation Comments PTT (test code = 78.0 See_Comment H [Automated message] 36604-4) The system [employer] generated this result transmitted ref erence range: 22.5 - 3 6.0 seconds. The reference range was not used to int erpret this result as normal/abnormal . Lab Interpretation (test Abnormal code = 54555-4) [facility]2021-[facility] 11:24:00 Test Item Value Reference Range Interpretation Comments PTT (test code = 78.0 See_Comment H [Automated message] 32392-9) The system [employer] generated this result transmitted ref erence range: 22.5 - 3 6.0 seconds. The reference range was not used to int erpret this result as normal/abnormal . Lab Interpretation (test Abnormal code = 05364-6) [place] [id number] 11:24:00 Test Item Value Reference Range Interpretation Comments PARTIAL THROMBOPLASTIN TIME 78.0 seconds 22.5-36.0 H (BEAKER) (test code = 760) POCT-GLUCOSE [id number] 07:58:00 Test Item Value Reference Range Interpretation Comments POC-GLUCOSE METER 102 mg/dL 70-110 : TESTED A T [facility] 6720 (BEAKER) (test code = [address], 1538) [address]: Web Merchant/Techni jenifer ID = [id number] for Alexandra casas (contract), Kalpesh ice BASIC METABOLIC [id number] 07:24:00 Test Item Value Reference Range Interpretation [...] S NOT APPLICABLE FOR DIALYSIS PATIEN TS. Web Merchant ID - PIAYA [id number] 07:24:00 Test Item Value Reference Range Interpretation Comments MAGNESIUM (BEAKER) (test code = 2.1 mg/dL 1.6-2.6 627) Web Merchant ID - PIAYA LCBC (HEMOGRAM ONLY)2020-09-28 06:59:00 [...] WBC 0-0 (BEAKER) (test code = 413) [id number] 01:15:00 Test Item Value Reference Range Interpretation Comments PARTIAL THROMBOPLASTIN TIME 32.7 seconds 22.5-36.0 (BEAKER) (test code = 760) POCT-GLUCOSE [id number] 16:51:00 Test Item Value Reference Range Interpretation Comments POC-GLUCOSE METER 107 mg/dL 70-110 : TESTED A T [facility] 6720 (BEAKER) (test code = AUDREY Whitley [facility], 1538) [address]: Web Merchant/Techni jenifer ID = [id number] for Bi Suzanne mcclain ECG 12 onsm9574-70-01 15:06:28Interface, External Ris In - 09/27/2020 3:06 PM CDTVentricular Rate 74 BPMAtrial Rate 74 BPMP-R Interval 366 msQRS Duration 78 msQ-T Interval 394 msQTC Calculation(Bazett) 437 msP [place] 61 degreesR [place] 66 degreesT [place] 196 degreesSinus rhythm with 1st degree A-V blockMinimal ST depression and T wave inversion in I, II and aVL with mild ST elevation in aVR consider ischemiaAbnormal ECGNo previous ECGs availableConfirmed by MD LUZ, ANDREI (190) on 09/27/2020 3:06:24 [facility]2D Echo W/Doppler(CW/PW/Color)2020-09-27 14:02:33[facility]ART[facility] MKCKESSON CPACSInterface, External Ris In - 09/27/2020 2:02 PM CDTTransthoracic Echocardiography Report (TTE) Demographics Patient Name JERE GAYTAN Date ofStudy 09/27/2020 DARLIN Gender Male Visit Number [id number] Race Unknown RoomNumber 8A07 Number Date of 1935 Referring Franky Mantilla Physician Age 85 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(s) 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 Darlene Lares [facility] Events Director Jovanni Benz Interpreting [facility] Physician James Chirinos MD Procedure [...] CI: 1.93 l/min/m^2[facility] Echo W/Doppler(CW/PW/Color)2020-09-27 14:02:33Ejection FractionSLEH ECHO HEARTLAB [facility]2D Echo W/Doppler(CW/PW/Color) 2020-09-27 14:02:33Ejection FractionSLEH ECHO HEARTLAB [facility] (Asymptomatic ONLY)2020-09-27 13:03:00 Test Item Value Reference Range Interpretation Comments SARS-COV2/RT-PCR Negative Not Detected, (test code = Negative, See 50790-1) external report for linked test SARS-COV-2 [facility] JIMENEZ PERFORMING LAB (test code = 67742-8) GRABIEL (test code = Negative result for [...] of the Act. Fact Sheet for Healthcare Providers:https://www.[employer]/sites/default/f carmen/product/documents/F act_Sheet_HC_Providers_L ydy_NMDG-TmU-3.pdf Fact Sheet for Healthcare Patients:https://www.[employer]/sites/default/fi les/product/documents/Fa ct_Sheet_Patients_Ly_S ARS-CoV-2.pdf Performing Laboratory:[facility] [place] [address] [facility] (Asymptomatic ONLY)2020-09-27 13:03:00 Test Item Value Reference Range Interpretation Comments SARS-COV2/RT-PCR Negative Not Detected, (test code = Negative, See 82384-3) external report for linked test SARS-COV-2 [facility] JIMENEZ PERFORMING LAB (test code = 49509-7) GRABIEL (test code = Negative result for [...] of the Act. Fact Sheet for Healthcare Providers:https://www.[employer]/sites/default/f carmen/product/documents/F act_Sheet_HC_Providers_L psg_KNIX-CyQ-6.pdf Fact Sheet for Healthcare Patients:https://www.[employer]/sites/default/fi les/product/documents/Fa ct_Sheet_Patients_Lyra_S ARS-CoV-2.pdf Performing Laboratory:[facility] [place] [address] [facility]ARS[facility]/RT-PCR (Asymptomatic ONLY)2020-09-27 13:03:00 Test Item Value Reference Range Interpretation Comments SARS-COV2/RT-PCR Negative Not Detected, (test code = Negative, See 58313-3) external report for linked test SARS-COV-2 [facility] JIMENEZ PERFORMING LAB (test code = 58268-0) GRABIEL (test code = Negative result for [...] of the Act. Fact Sheet for Healthcare Providers:https://www.[employer]/sites/default/f carmen/product/documents/F act_Sheet_HC_Providers_L atp_CQLG-NvD-4.pdf Fact Sheet for Healthcare Patients:https://www.[employer]/sites/default/fi les/product/documents/Fa ct_Sheet_Patients_Lyra_S ARS-CoV-2.pdf Performing Laboratory:[facility] [place] [address] [facility]ARS-[facility]OV2/RT-PCR ([facility])2020-09-27 13:03:00 Test Item Value Reference Range Interpretation Comments SARS-COV2/RT-PCR (test Negative Not Detected, Negative, code = 6064129) See external report for linked test SARS-COV-2 PERFORMING LAB [facility] JIMENEZ (test code = 9387356) Negative result for this test determines that [...] 564(g) of the Act.Fact Sheet for Healthcare Providers:https://www.[employer]/sites/default/files/product/documents/Fact_Shee n_DP_Figwzbosi_Scoe_QHWJ-KlQ-0.pdfFact Sheet for Healthcare Patients:https://www.[employer]/sites/default/files/product/ documents/Djxr_Zsyii_Tkxwjnzl_Jsab_FQSX-KuB-4.pdfPerforming Laboratory:[address], [place] [address]VGIO-NNFVVYD METER 2020-09-27 11:29:00 Test Item Value Reference Range Interpretation Comments POC-GLUCOSE METER 124 mg/dL 70-110 H : Notified RN/MD: (IMANI) (test code = TESTED AT [place] [address] 1538) [facility], [address]: Web Merchant/Techni jenifer ID = [id number] for PH INMALINDAE, DARRYL POCT-GLUCOSE [id number] 08:54:00 Test Item Value Reference Range Interpretation Comments POC-GLUCOSE METER 135 mg/dL 70-110 H : TESTED A T [place] [address] (IMANI) (test code = [facility], 1538) [address]: Web Merchant/Techni jenifer ID = [id number] for PH INISEE, DARRYL Vitamin B12 and [id number] 05:55:00 Test Item Value Reference Range Interpretation Comments Vitamin B12 (test 578 pg/mL 213-816 code = 2132-9) Folate (test code = 18.00 ng/mL See_Comment [Automa valentina 2284-8) message] The system which generated this result transmit valentina reference range : >=7.00. The reference range was not used to interpret this result as normal/abnormal . GRABIEL (test code = GRABIEL) Web Merchant ID - [facility] Lab Interpretation Normal (test code = 18493-1) [facility] Center[facility]ritin2021-[facility] 05:55:00 Test Item Value Reference Range Interpretation Comments Ferritin (test code = 35.96 ng/mL 5.00-275.00 2276-4) GRABIEL (test code = GRABIEL) Web Merchant ID - [facility] Lab Interpretation (test Normal code = 45624-9) [facility] CenterVitamin B12 and [id number] 05:55:00 Test Item Value Reference Range Interpretation Comments Vitamin B12 (test 578 pg/mL 213-816 code = 2132-9) Folate (test code = 18.00 ng/mL See_Comment [Automa valentina 2284-8) message] The system which generated this result transmit valentina reference range : >=7.00. The reference range was not used to interpret this result as normal/abnormal . GRABIEL (test code = GRABIEL) Web Merchant ID - [facility] Lab Interpretation Normal (test code = 43177-2) [facility] CenterFerritin2021-08-02 05:55:00 Test Item Value Reference Range Interpretation Comments Ferritin (test code = 35.96 ng/mL 5.00-275.00 2276-4) GRABIEL (test code = GRABIEL) Web Merchant ID - [facility] Lab Interpretation (test Normal code = 89386-2) [facility] CenterVitamin B12 and [id number] 05:55:00 Test Item Value Reference Range Interpretation Comments Vitamin B12 (test 578 pg/mL 213-816 code = 2132-9) Folate (test code = 18.00 ng/mL See_Comment [Automa valentina 2284-8) message] The system which generated this result transmit valentina reference range : >=7.00. The reference range was not used to interpret this result as normal/abnormal . GRABIEL (test code = GRABIEL) Web Merchant ID [facility] Lab Interpretation Normal (test code = 96321-0) [facility] CenterFerritin2021-08-02 05:55:00 Test Item Value Reference Range Interpretation Comments Ferritin (test code = 35.96 ng/mL 5-275 2276-4) GRABIEL (test code = GRABIEL) Web Merchant ID Rip Grajeda Lab Interpretation (test Normal code = 53004-7) [facility] CenterFERRITIN2021-08-02 05:55:00 Test Item Value Reference Range Interpretation Comments FERRITIN (BEAKER) (test code = 35.96 ng/mL 5.00-275.00 361) Web Merchant AIYANA ELIZABETH MVITAMIN B12 AND [id number] 05:55:00 Test Item Value Reference Range Interpretation Comments VITAMIN B12 578 pg/mL 213-816 (BEAKER) (test code = 774) FOLATE (BEAKER) 18.00 ng/mL See_Comment [Automated message] (test code = 362) The system which generated this result transmitted ref erence range: >=7.00. The reference range was not used to interpr et this result as normal/abnormal . Web Merchant AIYANA Saldanaon, TIBC, % sat. (without ferritin)2020-09-27 05:10:00 Test Item Value Reference Range Interpretation Comments Iron (test code = 2498-4) 37.0 ug/dL 40-160 L TIBC (test code = 2500-7) 404 ug/dL 250-450 Iron % Saturation (test 9 % 20-55 L code = 2502-3) GRABIEL (test code = GRABIEL) Web Merchant AIYANA Grajeda Lab Interpretation (test Abnormal code = 67553-2) [facility] CenterIron, TIBC, % sat. (without ferritin)2020-09-27 05:10:00 Test Item Value Reference Range Interpretation Comments Iron (test code = 2498-4) 37.0 ug/dL 40.0-160.0 L TIBC (test code = 2500-7) 404 ug/dL 250-450 Iron % Saturation (test 9 % 20-55 L code = 2502-3) GRABIEL (test code = GRABIEL) Web Merchant ID Rip Grajeda Lab Interpretation (test Abnormal code = 69483-4) [facility] CenterIron, TIBC, % sat. (without ferritin)2020-09-27 05:10:00 Test Item Value Reference Range Interpretation Comments Iron (test code = 2498-4) 37.0 ug/dL 40.0-160.0 L TIBC (test code = 2500-7) 404 ug/dL 250-450 Iron % Saturation (test 9 % 20-55 L code = 2502-3) GRABIEL (test code = GRABIEL) Web Merchant ID Rip Grajeda Lab Interpretation (test Abnormal code = 61982-3) [facility] CenterIRON, TIBC, % SAT. (WITHOUT FERRITIN)2020-09-27 05:10:00 Test Item Value Reference Range Interpretation Comments IRON (BEAKER) (test code = 547) 37.0 ug/dL 40.0-160.0 L TOTAL IRON BINDING CAPACITY 404 ug/dL 250-450 (BEAKER) (test code = 769) IRON % SATURATION (2) (BEAKER) 9 % 20-55 L (test code = 2590) Web Merchant ID - [facility]ARA [facility] METABOLIC [id number] 04:39:00 Test Item Value Reference Range Interpretation [...] S NOT APPLICABLE FOR DIALYSIS PATIEN TS. Web Merchant ID - CLARA [id number] 04:39:00 Test Item Value Reference Range Interpretation Comments MAGNESIUM (BEAKER) (test code = 2.3 mg/dL 1.6-2.6 627) Web Merchant ID - [facility] (HEMOGRAM ONLY)2020-09-27 04:22:00 [...] 0-0 (BEAKER) (test code = 413) POCT-GLUCOSE [id number] 23:19:00 Test Item Value Reference Range Interpretation Comments POC-GLUCOSE METER 109 mg/dL 70-110 : TESTED A T [facility] 6720 (BEAKER) (test code = [address], 1538) [address]: Web Merchant/Techni jenifer ID = [id number] for FRANCIA SANCHES [id number] 13:27:00 Test Item Value Reference Range Interpretation Comments PARTIAL THROMBOPLASTIN TIME 75.7 seconds 22.5-36.0 H (BEAKER) (test code = 760) Hemoglobin [id number] 08:25:00 Test Item Value Reference Range Interpretation Comments Hemoglobin A1C (test code = 4548-4) 6.7 % 4.3-6.1 H Lab Interpretation (test code = Abnormal 63342-8) [facility] CenterHemoglobin [id number] 08:25:00 Test Item Value Reference Range Interpretation Comments Hemoglobin A1C (test code = 4548-4) 6.7 % 4.3-6.1 H Lab Interpretation (test code = Abnormal 38875-8) [facility] CenterHemoglobin [id number] 08:25:00 Test Item Value Reference Range Interpretation Comments Hemoglobin A1C (test code = 4548-4) 6.7 % 4.3-6.1 H Lab Interpretation (test code = Abnormal 80695-6) [facility] CenterHEMOGLOBIN [id number] 08:25:00 Test Item Value Reference Range Interpretation Comments HEMOGLOBIN A1C (BEAKER) (test code = 6.7 % 4.3-6.1 H 368) RAD, CHEST, 1 VIEW, NON [id number] 08:15:00Reason for exam:->shortness of breath Should this be performed at the bedside?->Yes [facility] 1935 Sex: MFINAL REPORT INDICATION: shortness of breath COMPARISON: None ANTON HNIQUE: Single frontal view of the chest. FINDINGS: Lungs and pleura: Clear lungs. No effusion.Heartand mediastinum: Normal heart size. Unremarkable mediastinal contours.Osseous structures: No acute abnormality.Other: None. IMPRESSION: No acute intrathoracic abnormality. Signed: Yaneth Vaughn MDReport Verified Date/Time: 09/26/2020 08:15:42 Reading Location: [address] Neuro Reading Room XR chest 1 view portable / [id number] 08:15:00 Interface, External Ris In - 09/26/2020 8:17 AM CDTFINAL REPORT INDICATION: shortness of breath COMPARISON: None TECHNIQUE: Single frontal view of the chest. FINDINGS: Lungs andpleura: Clear lungs. No effusion.Heart and mediastinum: Normal heart size. Unremarkable mediastinal c ontours.Osseous structures: No acute abnormality.Other: None. IMPRESSION: No acute intrathoracic abnormality. Signed: Yaneth Vaughn MDReport Verified Date/Time: 09/26/2020 08:15:42 Reading Location: [address] Neuro Reading Room [facility], [id number] 07:15:00 Test Item Value Reference Range Interpretation Comments ABO Grouping (test code = 2588) B Rh Factor (test code = 2589) POS [facility], [id number] 07:15:00 Test Item Value Reference Range Interpretation Comments ABO Grouping (test code = 2588) B Rh Factor (test code = 2589) POS [facility], [id number] 07:15:00 Test Item Value Reference Range Interpretation Comments ABO Grouping (test code = 2588) B Rh Factor (test code = 2589) POS [facility], [id number] 06:19:00 Test Item Value Reference Range Interpretation Comments ABO/RH AUTOMATED (BEAKER) (test B POSITIVE code = 2260) Ab Scrn (test code = 890-4) NEGATIVE [facility] CenterType and screen, [id number] 06:19:00 Test Item Value Reference Range Interpretation Comments ABO/RH AUTOMATED (BEAKER) (test B POSITIVE code = 2260) Ab Scrn (test code = 890-4) NEGATIVE [facility] [facility] [id number] 06:19:00 Test Item Value Reference Range Interpretation Comments ABO/RH AUTOMATED (BEAKER) (test B POSITIVE code = 2260) Ab Scrn (test code = 890-4) NEGATIVE [facility] Test Item Value Reference Range Interpretation Comments PARTIAL THROMBOPLASTIN TIME 111.9 seconds 22.5-36.0 H (BEAKER) (test code = 760) Patient on hep drippingComprehensive metabolic [id number] 05:17:00 Test Item Value Reference Range Interpretation Comments Protein, Total 6.7 See_Comment [Automated (test code = message] The 2885-2) system which generated this result transmit [place] reference range : 6.0 - 8.3 gm/dL . The reference range was not u sed to interpret th is result as normal/abnormal . Albumin (test code 3.6 g/dL 3.5-5.0 = 71446-1) Alkaline 102 U/L 40-150 Phosphatase (test code = 6768-6) Total Bilirubin 0.4 mg/dL 0.2-1.2 (test code = 1974-2) Sodium (test code = 138 meq/L 456-419 5439-2) Potassium (test 4.0 meq/L 3.5-5.1 code = 2823-3) Chloride (test code 102 meq/L 98-107 = 2075-0) CO2 (test code = 24 meq/L 22-29 2027-9) BUN (test code = 16 mg/dL 7-21 3094-0) Creatinine (test 0.91 mg/dL 0.57-1.25 code = 2160-0) Glucose (test code 103 mg/dL 70-105 = 2345-7) Calcium (test code 9.2 mg/dL 8.4-10.2 = 09849-8) AST (test code = 29 U/L 5-34 1920-8) ALT (test code = 24 U/L 6-55 1742-6) EGFR (test code = 79 mL/min/1.73 [place] [address]-3) NOT ACCURATE CREATININE CLEARANCE IN PREDICTING GLOMERULAR FILTRATION RATE . ESTIMATED GFR I S NOT APPLICABLE FOR DIALYSIS PATIEN TS. GRABIEL (test code = Web Merchant ID - DB GRABIEL) [facility] [id number] 05:17:00 Test Item Value Reference Range Interpretation Comments Triglycerides (test 90 mg/dL code = 2571-8) Cholesterol (test code 171 mg/dL = 3-3) HDL (test code = 39 mg/dL 9) LDL Calculated (test 114 mg/dL code = 20939-7) GRABIEL (test code = GRABIEL) Triglyceride Reference Range: Low Risk <150 Borderline 150-199 High Risk 200-499 Very High Risk >=500 Cholesterol Reference Range: Low Risk <200 Borderline 200-239 High Risk >240 HDL Cholesterol Reference Range: Low Risk >=60 High Risk <40 LDL Cholesterol Reference Range: Optimal <100 Near Optimal 100-129 Borderline 130-159 High 160-189 Very High >=190 Web Merchant ID - DB [facility] [id number] 05:17:00 Test Item Value Reference Range Interpretation Comments Protein, Total 6.7 See_Comment [Automated (test code = message] The 1925-2) system which generated this result transmit [place] reference range : 6.0 - 8.3 gm/dL . The reference range was not u sed to interpret th is result as normal/abnormal . Albumin (test code 3.6 g/dL 3.5-5.0 = 34758-8) Alkaline 102 U/L 40-150 Phosphatase (test code = 6768-6) Total Bilirubin 0.4 mg/dL 0.2-1.2 (test code = 1974-2) Sodium (test code = 138 meq/L 205-233 8807-2) Potassium (test 4.0 meq/L 3.5-5.1 code = 2823-3) Chloride (test code 102 meq/L 98-107 = 2075-0) CO2 (test code = 24 meq/L 22-29 2027-9) BUN (test code = 16 mg/dL 7-21 3094-0) Creatinine (test 0.91 mg/dL 0.57-1.25 code = 2160-0) Glucose (test code 103 mg/dL 70-105 = 2345-7) Calcium (test code 9.2 mg/dL 8.4-10.2 = 27216-0) AST (test code = 29 U/L 5-34 1920-8) ALT (test code = 24 U/L 6-55 1742-6) EGFR (test code = 79 mL/min/1.73 [place] [address]-3) NOT ACCURATE CREATININE CLEARANCE IN PREDICTING GLOMERULAR FILTRATION RATE . ESTIMATED GFR I S NOT APPLICABLE FOR DIALYSIS PATIEN TS. GRABIEL (test code = Web Merchant ID - DB GRABIEL) [facility] [id number] 05:17:00 Test Item Value Reference Range Interpretation Comments Triglycerides (test 90 mg/dL code = 2571-8) Cholesterol (test code 171 mg/dL = 2093-3) HDL (test code = 39 mg/dL 2084-10) LDL Calculated (test 114 mg/dL code = 79901-2) GRABIEL (test code = GRABIEL) Triglyceride Reference Range: Low Risk <150 Borderline 150-199 High Risk 200-499 Very High Risk >=500 Cholesterol Reference Range: Low Risk <200 Borderline 200-239 High Risk >240 HDL Cholesterol Reference Range: Low Risk >=60 High Risk <40 LDL Cholesterol Reference Range: Optimal <100 Near Optimal 100-129 Borderline 130-159 High 160-189 Very High >=190 Web Merchant ID - DB [facility] [id number] 05:17:00 Test Item Value Reference Range Interpretation Comments Protein, Total 6.7 See_Comment [Automated (test code = message] The 2885-2) system which generated this result transmit [place] reference range : 6.0 - 8.3 gm/dL . The reference range was not u sed to interpret th is result as normal/abnormal . Albumin (test code 3.6 g/dL 3.5-5 = 91304-1) Alkaline 102 U/L 40-150 Phosphatase (test code = 6768-6) Total Bilirubin 0.4 mg/dL 0.2-1.2 (test code = 1975-2) Sodium (test code = 138 meq/L 788-066 6217-2) Potassium (test 4.0 meq/L 3.5-5.1 code = 2823-3) Chloride (test code 102 meq/L 98-107 = 2075-0) CO2 (test code = 24 meq/L -29 2027-10) BUN (test code = 16 mg/dL 7- 3094-0) Creatinine (test 0.91 mg/dL 0.57-1.25 code = 2160-0) Glucose (test code 103 mg/dL 70-105 = 2345-7) Calcium (test code 9.2 mg/dL 8.4-10.2 = 47163-4) AST (test code = 29 U/L 5-34 1919-8) ALT (test code = 24 U/L 6-55 1742-6) EGFR (test code = 79 mL/min/1.73 [place] [address]-9) NOT ACCURATE CREATININE CLEARANCE IN PREDICTING GLOMERULAR FILTRATION RATE . ESTIMATED GFR I S NOT APPLICABLE FOR DIALYSIS PATIEN GRABIEL (test code = Web Merchant ID - DB GRABIEL) [facility] [id number] 05:17:00 Test Item Value Reference Range Interpretation Comments Triglycerides (test 90 mg/dL code = 2571-8) Cholesterol (test code 171 mg/dL = 2093-3) HDL (test code = 39 mg/dL 2084-10) LDL Calculated (test 114 mg/dL code = 98957-7) GRABIEL (test code = GRABIEL) Triglyceride Reference Range: Low Risk <150 Borderline 150-199 High Risk 200-499 Very High Risk >=500 Cholesterol Reference Range: Low Risk <200 Borderline 200-239 High Risk >240 HDL Cholesterol Reference Range: Low Risk >=60 High Risk <40 LDL Cholesterol Reference Range: Optimal <100 Near Optimal 100-129 Borderline 130-159 High 160-189 Very High >=190 Web Merchant ID - DB [facility]COMPRE[facility] METABOLIC [id number] 05:17:00 Test Item Value Reference Range Interpretation [...] S NOT APPLICABLE FOR DIALYSIS PATIEN TS. Web Merchant ID - DBLIPID [id number] 05:17:00 Test Item Value Reference Range Interpretation [...] Borderline 130-159 High 160-189 Very High >=190 Web Merchant ID - DBB-type Natriuretic Factor (BNP)2020-09-26 05:16:00 Test Item Value Reference Range Interpretation Comments BNP (test code = 64593-4) 686 pg/mL 0-100 H GRABIEL (test code = GRABIEL) Web Merchant ID - DB Lab Interpretation (test Abnormal code = 05239-3) [facility] (BNP)2020-09-26 05:16:00 Test Item Value Reference Range Interpretation Comments BNP (test code = 71477-8) 686 pg/mL 0-100 H GRABIEL (test code = GRABIEL) Web Merchant ID - DB Lab Interpretation (test Abnormal code = 71144-2) [facility] (BNP)2020-09-26 05:16:00 Test Item Value Reference Range Interpretation Comments BNP (test code = 70320-1) 686 pg/mL 0-100 H GRABIEL (test code = GRABIEL) Web Merchant ID - DB Lab Interpretation (test Abnormal code = 02678-6) [facility] NATRIURETIC FACTOR (BNP)2020-09-26 05:16:00 Test Item Value Reference Range Interpretation Comments B-TYPE NATRIURETIC PEPTIDE (BEAKER) 686 pg/mL 0-100 H (test code = 700) Web Merchant ID - DBHigh Sensitivity Troponin [id number] 05:14:00 Test Item Value Reference Range Interpretation Comments Troponin I HS 175 pg/ml See_Comment H [Automated (test code = message] The 36535-0) system which generated this result transmitted reference range : <=35. The reference range was not used to interpret this result as normal/abnormal . GRABIEL (test code = Web Merchant ID - GRABIEL) DBThe TWITCHELL OPERATOR STAT High Sensitivity Troponin-I results should be used in conjunction with other diagnostic information such as ECG, clinical observations and information, and patient symptoms to aid in the diagnosis of MA. Lab Interpretation Abnormal (test code = 06254-9) [facility] Center[facility] Troponin [id number] 05:14:00 Test Item Value Reference Range Interpretation Comments Troponin I HS 175 pg/ml See_Comment H [Automated (test code = message] The 73895-1) system which generated this result transmitted reference range : <=35. The reference range was not used to interpret this result as normal/abnormal . GRABIEL (test code = Web Merchant ID - GRABIEL) DBThe TWITCHELL OPERATOR STAT High Sensitivity Troponin-I results should be used in conjunction with other diagnostic information such as ECG, clinical observations and information, and patient symptoms to aid in the diagnosis of MA. Lab Interpretation Abnormal (test code = 58716-2) [facility] Center[facility] Troponin [id number] 05:14:00 Test Item Value Reference Range Interpretation Comments Troponin I HS 175 pg/ml See_Comment H [Automated (test code = message] The 03329-5) system which generated this result transmitted reference range : <=35. The reference range was not used to interpret this result as normal/abnormal . GRABIEL (test code = Web Merchant ID - GRABIEL) DBThe TWITCHELL OPERATOR STAT High Sensitivity Troponin-I results should be used in conjunction with other diagnostic information such as ECG, clinical observations and information, and patient symptoms to aid in the diagnosis of MA. Lab Interpretation Abnormal (test code = 37594-2) [facility] CenterH[facility]ENSITIVITY TROPONIN [id number] 05:14:00 Test Item Value Reference Range Interpretation Comments HIGH SENSITIVITY 175 pg/ml See_Comment H [Automated message] TROPONIN I (test code The sy stem which = 5970776) generated this result transmitted ref erence range: <=35. Th e reference range was not used to int erpret this result as normal/abnormal . 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 Lab Interpretation Abnormal (test code = 11174-6) [facility] CenterProthrombin time/[id number] 05:07:00 Test Item Value Reference Interpretation Comments [...] valves. Lab Interpretation Abnormal (test code = 99955-1) [facility] CenterProthrombin time/[id number] 05:07:00 Test Item Value Reference Interpretation Comments Range Protime (test code = 15.6 See_Comment H [Autom ated 6212-2) message] The system which generated this result transmitted reference range : 11.9 - 14.2 seconds. The reference range was not used to interpret this result as normal/abnormal . INR (test code = 1.26 See_Comment [Automated 5591-6) message] The system which generated this result [...] valves. Lab Interpretation Abnormal (test code = 94332-4) [facility] CenterPROTHROMBIN TIME/[id number] 05:07:00 Test Item Value Reference Range Interpretation Comments PROTIME (BEAKER) 15.6 seconds 11.9-14.2 H (test code = 759) INR (BEAKER) (test 1.26 See_Comment [Automat ed message] code = 370) The system [employer] generated this result transmitted ref erence range: [...] 4.1 See_Comment [A utomated message] The system [employer] generated this result transmitted ref erence range: 3.5 - 10 .5 K/L. The refe rence range was not u sed to interpret this result as normal/abnor mal. RBC (test code = 789-8) 3.65 See_Comment L [Au tomated message] The system [employer] generated this result transmitted ref erence range: 4.63 - 6 .08 M/L. The refe rence range was not u sed to interpret this result as normal/abnor mal. MCHC (test code = 786-4) 31.2 See_Comment L [A utomated message] The system [employer] generated this result transmitted ref erence range: [...] L [Aut omated message] 777-3) The system [employer] generated this result transmitted ref erence range: 150 - 45 0 K/CU MM. The referen ce range was not u sed to interpret this result as normal/abnor mal. MPV (test code = 10.3 fL 9.4-12.4 88160-5) nRBC (test code = 413) 0 See_Comment [Aut omated message] The system [employer] generated this result transmitted ref erence range: [...] See_Comment [Aut omated message] 670) The system [employer] generated this result transmitted ref erence range: 1.78 - 5 .38 K/L. The refe rence range was not u sed to interpret this result as normal/abnor mal. # Lymphs (test code = 1.01 See_Comment L [Auto mated message] 414) The system [employer] generated this result transmitted ref erence range: 1.32 - 3 .57 K/L. The refe rence range was not u sed to interpret this result as normal/abnor mal. # Monos (test code = 0.44 See_Comment [Autom ated message] 415) The system [employer] generated this result transmitted ref erence range: 0.30 - 0 .82 K/L. The refe rence range was not u sed to interpret this result as normal/abnor mal. # Eos (test code = 416) 0.16 See_Comment [Au tomated message] The system [employer] generated this result transmitted ref erence range: 0.04 - 0 .54 K/L. The refe rence range was not u sed to interpret this result as normal/abnor mal. # Baso (test code = 417) 0.02 See_Comment [A utomated message] The system [employer] generated this result transmitted ref erence range: 0.01 - 0 .08 K/L. The refe rence range was not u sed to interpret this result as normal/abnor mal. Immature 0 % 0-1 Granulocytes-Relative (test code = 2801) Lab Interpretation (test Abnormal code = 66609-1) [facility] with platelet count + automated [id number] 04:49:00 Test Item Value Reference Range Interpretation Comments WBC (test code = 6690-2) 4.1 See_Comment [A utomated message] The system [employer] generated this result transmitted ref erence range: 3.5 - 10 .5 K/L. The refe rence range was not u sed to interpret this result as normal/abnor mal. RBC (test code = 789-8) 3.65 See_Comment L [Au tomated message] The system [employer] generated this result transmitted ref erence range: 4.63 - 6 .08 M/L. The refe rence range was not u sed to interpret this result as normal/abnor mal. MCHC (test code = 786-4) 31.2 See_Comment L [A utomated message] The system [employer] generated this result transmitted ref erence range: [...] L [Aut omated message] 777-3) The system [employer] generated this result transmitted ref erence range: 150 - 45 0 K/CU MM. The referen ce range was not u sed to interpret this result as normal/abnor mal. MPV (test code = 10.3 fL 9.4-12.4 81024-8) nRBC (test code = 413) 0 See_Comment [Aut omated message] The system [employer] generated this result transmitted ref erence range: [...] See_Comment [Aut omated message] 670) The system [employer] generated this result transmitted ref erence range: 1.78 - 5 .38 K/L. The refe rence range was not u sed to interpret this result as normal/abnor mal. # Lymphs (test code = 1.01 See_Comment L [Auto mated message] 414) The system [employer] generated this result transmitted ref erence range: 1.32 - 3 .57 K/L. The refe rence range was not u sed to interpret this result as normal/abnor mal. # Monos (test code = 0.44 See_Comment [Autom ated message] 415) The system [employer] generated this result transmitted ref erence range: 0.30 - 0 .82 K/L. The refe rence range was not u sed to interpret this result as normal/abnor mal. # Eos (test code = 416) 0.16 See_Comment [Au tomated message] The system [employer] generated this result transmitted ref erence range: 0.04 - 0 .54 K/L. The refe rence range was not u sed to interpret this result as normal/abnor mal. # Baso (test code = 417) 0.02 See_Comment [A utomated message] The system [employer] generated this result transmitted ref erence range: 0.01 - 0 .08 K/L. The refe rence range was not u sed to interpret this result as normal/abnor mal. Immature 0 % 0-1 Granulocytes-Relative (test code = 2801) Lab Interpretation (test Abnormal code = 58841-8) [facility] with platelet count + automated [id number] 04:49:00 Test Item Value Reference Range Interpretation Comments WBC (test code = 6690-2) 4.1 See_Comment [A utomated message] The system [employer] generated this result transmitted ref erence range: 3.5 - 10 .5 K/L. The refe rence range was not u sed to interpret this result as normal/abnor mal. RBC (test code = 789-8) 3.65 See_Comment L [Au tomated message] The system [employer] generated this result transmitted ref erence range: 4.63 - 6 .08 M/L. The refe rence range was not u sed to interpret this result as normal/abnor mal. MCHC (test code = 786-4) 31.2 See_Comment L [A utomated message] The system [employer] generated this result transmitted ref erence range: [...] L [Aut omated message] 777-3) The system [employer] generated this result transmitted ref erence range: 150 - 45 0 K/CU MM. The referen ce range was not u sed to interpret this result as normal/abnor mal. MPV (test code = 10.3 fL 9.4-12.4 82676-3) nRBC (test code = 413) 0 See_Comment [Aut omated message] The system [employer] generated this result transmitted ref erence range: [...] See_Comment [Aut omated message] 670) The system [employer] generated this result transmitted ref erence range: 1.78 - 5 .38 K/L. The refe rence range was not u sed to interpret this result as normal/abnor mal. # Lymphs (test code = 1.01 See_Comment L [Auto mated message] 414) The system [employer] generated this result transmitted ref erence range: 1.32 - 3 .57 K/L. The refe rence range was not u sed to interpret this result as normal/abnor mal. # Monos (test code = 0.44 See_Comment [Autom ated message] 415) The system [employer] generated this result transmitted ref erence range: 0.30 - 0 .82 K/L. The refe rence range was not u sed to interpret this result as normal/abnor mal. # Eos (test code = 416) 0.16 See_Comment [Au tomated message] The system [employer] generated this result transmitted ref erence range: 0.04 - 0 .54 K/L. The refe rence range was not u sed to interpret this result as normal/abnor mal. # Baso (test code = 417) 0.02 See_Comment [A utomated message] The system [employer] generated this result transmitted ref erence range: 0.01 - 0 .08 K/L. The refe rence range was not u sed to interpret this result as normal/abnor mal. Immature 0 % 0-1 Granulocytes-Relative (test code = 2801) Lab Interpretation (test Abnormal code = 41797-3) [facility] W/PLT COUNT & AUTO [id number] 04:49:00 Test Item Value Reference Range Interpretation [...] Not Detected Not Detected (test code = 52148-1) GRABIEL (test code = GRABIEL) ID NOW COVID-19 Assay is an isothermal nucleic acid amplification test intended for the qualitative detection of nucleic acid from SARS-CoV-2 viral RNA in nasopharyngeal (TRACK OILER) specimens. It is used under Emergency Use [...] indicated. Lab Interpretation Normal (test code = 16652-4) [facility] WITH [id number] 19:54:17 Test Item Value Reference Range Interpretation [...] (test code = 52.3 fL 38.5-51.6 H 78638-6) RDW-CV (test code = 15.1 % 12.1-15.4 788-0) PLT (test code = See_Comment [Automated 777-3) message] The sy stem which generated this result transmitted reference range : 150 - 328 10*3/ ?L. The reference r sheryl was not used to interpret this result as normal/abnormal . MPV (test code = 10.2 fL 9.8-13.0 44518-1) NRBC/100 WBC (test See_Comment [Automat ed code = 5198634095) message] The system which generated this result transmitted reference range : 0.0 - 10.0 /100 WBCs. The refer ence range was not u sed to interpret th is result as normal/abnormal . NRBC x10^3 (test code <0.01 See_Comment [Auto mated = [id number]) message] The s ystem which generated this result transmitted reference range : 10*3/?L. The reference range was not used to interpret this result as normal/abnormal . GRAN MAT (NEUT) % 59.2 % (test code = 770-8) IMM GRAN % (test code 0.40 % = 6358731145) LYMPH % (test code = 26.7 % 736-9) MONO % (test code = 10.6 % 5905-5) EOS % (test code = 2.7 % 713-8) BASO % (test code = 0.4 % 706-2) GRAN MAT x10^3(ANC) 2.63 10*3/uL 1.99-6.95 (test code = 5858459071) IMM GRAN x10^3 (test <0.03 0.00-0.06 code = 0698996741) LYMPH x10^3 (test code 1.19 10*3/uL 1.09-3.23 = 731-0) MONO x10^3 (test code 0.47 10*3/uL 0.36-1.02 = 742-7) EOS x10^3 (test code = 0.12 10*3/uL 0.06-0.53 711-2) BASO x10^3 (test code <0.03 0.01-0.09 = 704-7) Lab Interpretation Abnormal (test code = 04773-1) [facility] AND [id number] 00:22:00 Test Item Value Reference Range Interpretation Comments UA Color (test code = Yellow *NA*(01/15/19 UA Color) 6:22 PM) [facility] AND [id number] 00:22:00 Test Item Value Reference Range Interpretation Comments UA Turbidity (test code = Clear (01/15/19 6:22 UA Turbidity) PM) [facility] AND [id number] 00:22:00 Test Item Value Reference Range Interpretation Comments UA Spec Grav (test code = UA Spec 1.023 1 Grav) [facility] AND [id number] 00:22:00 Test Item Value Reference Range Interpretation Comments UA pH (test code = UA pH) 5.0 1 5.0-8.0 [facility] AND [id number] 00:22:00 Test Item Value Reference Range Interpretation Comments UA Protein (test code Negative (01/15/19 6:22 = UA Protein) PM) [facility] AND [id number] 00:22:00 Test Item Value Reference Range Interpretation Comments UA Glucose (test code Negative *NA*(01/15/19 = UA Glucose) 6:22 PM) [facility] AND [id number] 00:22:00 Test Item Value Reference Range Interpretation Comments UA Ketones (test code = UA Ketones) 20 mg/dL [facility] AND [id number] 00:22:00 Test Item Value Reference Range Interpretation Comments UA Bili (test code = Negative *NA*(01/15/19 UA Bili) 6:22 PM) [facility] AND [id number] 00:22:00 Test Item Value Reference Range Interpretation Comments UA Blood (test code = Negative (01/15/19 6:22 UA Blood) PM) [facility] AND [id number] 00:22:00 Test Item Value Reference Range Interpretation Comments UA Urobilinogen (test code = UA <=1.0 mg/dL 0.1-1.0 Urobilinogen) [facility] AND [id number] 00:22:00 Test Item Value Reference Range Interpretation Comments UA Nitrite (test code Negative (01/15/19 6:22 = UA Nitrite) PM) [facility] AND [id number] 00:22:00 Test Item Value Reference Range Interpretation Comments UA Leuk Est (test Negative (01/15/19 6:22 code = UA Leuk Est) PM) [facility] AND [id number] 00:22:00 Test Item Value Reference Range Interpretation Comments UA Sq Epi (test code = None Seen (01/15/19 UA Sq Epi) 6:22 PM) [facility] AND [id number] 00:22:00 Test Item Value Reference Range Interpretation Comments UA WBC (test code = 1 See_Comment [Automa [place]ent[place] message] The UA WBC) system which ge nerated this result transmit [place] reference range : <=5. The reference range was not used to interpr et this result as abbey l/abnormal. [facility] AND [id number] 00:22:00 Test Item Value Reference Range Interpretation Comments UA RBC (test code = 1 See_Comment [Automa [place] message] The UA RBC) system which ge nerated this result transmit [place]ent[place] reference range : <=2. The reference range was not used to interpr et this result as abbey l/abnormal. [facility] [id number] 00:22:00 Test Item Value Reference Range Interpretation Comments UA Mucus (test code = UA Mucus) Few /LPF [facility] [id number] 10:48:00 Test Item Value Reference Range Interpretation Comments Magnesium Lvl (test code = Magnesium 2.3 1.8-2.4 Lvl) [facility] [id number] 10:48:00 Test Item Value Reference Range Interpretation Comments Phosphorus (test code = Phosphorus) 3.0 2.5-4.5 [facility]GcbwoioOYVMSVMMJFPG0901-17-63 10:48:00 Test Item Value Reference Range Interpretation Comments AGAP (test code = AGAP) 10.3 10.0-20.0 [facility] CenterWdmzbmfGTZDTZNEMFWE2492-87-44 10:48:00 Test Item Value Reference Range Interpretation Comments Glucose Lvl (test code = Glucose Lvl) 104 70-99 [facility] CenterAszajadABJZWKKITFFB9765-85-73 10:48:00 Test Item Value Reference Range Interpretation Comments BUN (test code = BUN) 15 7-22 [facility] CenterEygtszqIOSVHGKATYTN0363-32-71 10:48:00 Test Item Value Reference Range Interpretation Comments Creatinine Lvl (test code = Creatinine 0.69 0.50-1.40 Lvl) [facility] CenterJzaxbzoPONNATUOILCK6116-68-05 10:48:00 Test Item Value Reference Range Interpretation Comments Sodium Lvl (test code = Sodium Lvl) 138 135-145 [facility] CenterHjazfjiLLEXHDARSJUQ6798-90-90 10:48:00 Test Item Value Reference Range Interpretation Comments Potassium Lvl (test code = Potassium 4.3 3.5-5.1 Lvl) [facility] CenterBzgfkboBCQCLODWOAUX6088-86-56 10:48:00 Test Item Value Reference Range Interpretation Comments Chloride Lvl (test code = Chloride Lvl) 106 95-109 [facility] CenterOtmkhtrFXQOCZFWCZEE9987-33-43 10:48:00 Test Item Value Reference Range Interpretation Comments CO2 (test code = CO2) 26 24-32 [facility] CenterJiwjfwfJJDQICRKTAOR0968-92-04 10:48:00 Test Item Value Reference Range Interpretation Comments Calcium Lvl (test code = Calcium Lvl) 8.9 8.5-10.5 [facility]VhhkxygMQOKLLTVRMFT3597-04-27 10:48:00 Test Item Value Reference Range Interpretation Comments eGFR (test code = eGFR) 87 [facility]QazwkcoWOJKFPXWJS9908-06-20 10:48:00 Test Item Value Reference Range Interpretation Comments WBC (test code = WBC) 2.6 3.7-10.4 [facility] HospitalXyjsugqFOHHKBOZIU0346-56-47 10:48:00 Test Item Value Reference Range Interpretation Comments RBC (test code = RBC) 3.79 4.70-6.10 [facility] HospitalApdwpeaYKMKAKQHGD9032-06-33 10:48:00 Test Item Value Reference Range Interpretation Comments Hgb (test code = Hgb) 11.1 14.0-18.0 [facility] HospitalPnfhemeTBDEODZZYZ9078-70-00 10:48:00 Test Item Value Reference Range Interpretation Comments Hct (test code = Hct) 34.9 42.0-54.0 [facility] HospitalQjedphfXKDZBTAWMZ4635-05-50 10:48:00 Test Item Value Reference Range Interpretation Comments MCV (test code = MCV) 92.0 80.0-94.0 [facility] HospitalFaklspmSSAEFUMCQK3736-94-07 10:48:00 Test Item Value Reference Range Interpretation Comments MCH (test code = MCH) 29.3 pg 27.0-31.0 [facility] HospitalQkknefzCDXRNJPQME5625-07-77 10:48:00 Test Item Value Reference Range Interpretation Comments MCHC (test code = MCHC) 31.8 32.0-36.0 [facility] HospitalLzoafywBJQTXXPWXH9280-55-22 10:48:00 Test Item Value Reference Range Interpretation Comments RDW (test code = RDW) 16.5 11.5-14.5 [facility] HospitalEfzxpcyQUMZWYSGVS0463-39-70 10:48:00 Test Item Value Reference Range Interpretation Comments Platelet (test code = Platelet) 148 133-450 [facility] HospitalYysdsfxWEIMGDQUJO4161-40-83 10:48:00 Test Item Value Reference Range Interpretation Comments MPV (test code = MPV) 8.3 7.4-10.4 [facility]UajyhcsOXNVKWMSVX0442-94-07 10:48:00 Test Item Value Reference Range Interpretation Comments Segs (test code = Segs) 66.8 45.0-75.0 [facility] HospitalFtmvobdGABJZAKLQF0350-82-35 10:48:00 Test Item Value Reference Range Interpretation Comments Lymphocytes (test code = Lymphocytes) 12.6 20.0-40.0 [facility] HospitalTzekokmPKSUSYCYTN1164-63-75 10:48:00 Test Item Value Reference Range Interpretation Comments Monocytes (test code = Monocytes) 8.4 2.0-12.0 [facility] HospitalQsisldxRXSKKGPKPD0898-59-47 10:48:00 Test Item Value Reference Range Interpretation Comments Eosinophils (test code = 11.5 See_Comment [A utomated message] The Eosinophils) system which ge nerated this result tra nsmitted reference range : <=4.0. The reference r sheryl was not used to int erpret this result as normal/abnormal . [facility] HospitalLtihaqjREQIWDWMDR0187-41-63 10:48:00 Test Item Value Reference Range Interpretation Comments Basophils (test code = 0.7 See_Comment [Aut omated message] The Basophils) system which ge nerated this result tra nsmitted reference range : <=1.0. The reference r sheryl was not used to int erpret this result as normal/abnormal . [facility] HospitalPxwhosoTEHTJBPXMI3789-44-65 10:48:00 Test Item Value Reference Range Interpretation Comments Neutrophils # (test code = Neutrophils 1.7 1.5-8.1 #) [facility] HospitalLoitbcqTCZFRKPQGL2740-37-12 10:48:00 Test Item Value Reference Range Interpretation Comments Lymphocytes # (test code = Lymphocytes 0.3 1.0-5.5 #) [facility] HospitalQeitzphOARPZIXAQK9696-89-74 10:48:00 Test Item Value Reference Range Interpretation Comments Monocytes # (test code 0.2 See_Comment [Aut omated message] The = Monocytes #) system which generated this result tra nsmitted reference range : <=0.8. The reference r sheryl was not used to int erpret this result as normal/abnormal . [facility] HospitalFkyzajvRYFPMKJYKG2960-98-64 10:48:00 Test Item Value Reference Range Interpretation Comments Eosinophils # (test code 0.3 See_Comment [A utomated message] The = Eosinophils #) system whic h generated this result tra nsmitted reference range : <=0.5. The reference r sheryl was not used to int erpret this result as normal/abnormal . [facility]2019-11-18 10:15:00 Test Item Value Reference Range Interpretation Comments Magnesium Lvl (test code = Magnesium 2.0 1.8-2.4 Lvl) [facility]2019-11-18 10:15:00 Test Item Value Reference Range Interpretation Comments Phosphorus (test code = Phosphorus) 3.6 2.5-4.5 [facility]2019-11-18 10:15:00 Test Item Value Reference Range Interpretation Comments Glucose Lvl (test code = Glucose Lvl) 127 70-99 [facility]2019-11-18 10:15:00 Test Item Value Reference Range Interpretation Comments BUN (test code = BUN) 9 7-22 [facility]2019-11-18 10:15:00 Test Item Value Reference Range Interpretation Comments Creatinine Lvl (test code = Creatinine 0.71 0.50-1.40 Lvl) [facility]2019-11-18 10:15:00 Test Item Value Reference Range Interpretation Comments Sodium Lvl (test code = Sodium Lvl) 139 135-145 [facility]2019-11-18 10:15:00 Test Item Value Reference Range Interpretation Comments Potassium Lvl (test code = Potassium 4.2 3.5-5.1 Lvl) [facility]2019-11-18 10:15:00 Test Item Value Reference Range Interpretation Comments Chloride Lvl (test code = Chloride Lvl) 106 95-109 [facility]2019-11-18 10:15:00 Test Item Value Reference Range Interpretation Comments CO2 (test code = CO2) 27 24-32 [facility]2019-11-18 10:15:00 Test Item Value Reference Range Interpretation Comments AGAP (test code = AGAP) 10.2 10.0-20.0 [facility]2019-11-18 10:15:00 Test Item Value Reference Range Interpretation Comments Calcium Lvl (test code = Calcium Lvl) 8.9 8.5-10.5 [facility]2019-11-18 10:15:00 Test Item Value Reference Range Interpretation Comments eGFR (test code = eGFR) 86 [facility] HospitalPqjjgpdCFBMGFADCG4530-07-83 10:15:00 Test Item Value Reference Range Interpretation Comments Segs (test code = Segs) 63.6 45.0-75.0 [place] 113289-11-18 10:15:00 Test Item Value Reference Range Interpretation Comments Lymphocytes (test code = Lymphocytes) 19.5 20.0-40.0 [facility] HospitalGwjqgthWSAFYNDSXN3211-16-00 10:15:00 Test Item Value Reference Range Interpretation Comments Monocytes (test code = Monocytes) 11.0 2.0-12.0 [facility] HospitalWowkayiQKNYNHZBFO1376-78-64 10:15:00 Test Item Value Reference Range Interpretation Comments Eosinophils (test code = 5.2 See_Comment [A utomated message] The Eosinophils) system which ge nerated this result tra nsmitted reference range : <=4.0. The reference r sheryl was not used to int erpret this result as normal/abnormal . [facility] HospitalBmdbhvtZAEGUGPOJG0407-41-34 10:15:00 Test Item Value Reference Range Interpretation Comments Basophils (test code = 0.7 See_Comment [Aut omated message] The Basophils) system which ge nerated this result tra nsmitted reference range : <=1.0. The reference r sheryl was not used to int erpret this result as normal/abnormal . [facility] HospitalVujrfvoEGNDQNFESN8019-02-69 10:15:00 Test Item Value Reference Range Interpretation Comments Neutrophils # (test code = Neutrophils 1.4 1.5-8.1 #) [facility] HospitalBgadxmrVBZXRFWXTQ4173-71-71 10:15:00 Test Item Value Reference Range Interpretation Comments Lymphocytes # (test code = Lymphocytes 0.4 1.0-5.5 #) [facility] HospitalYdxupcwAIEQUCRBZI4277-58-47 10:15:00 Test Item Value Reference Range Interpretation Comments Monocytes # (test code 0.2 See_Comment [Aut omated message] The = Monocytes #) system which generated this result tra nsmitted reference range : <=0.8. The reference r sheryl was not used to int erpret this result as normal/abnormal . [facility] HospitalKpozobbZYIBISCQXF8339-93-27 10:15:00 Test Item Value Reference Range Interpretation Comments Eosinophils # (test code 0.1 See_Comment [A utomated message] The = Eosinophils #) system whic h generated this result tra nsmitted reference range : <=0.5. The reference r sheryl was not used to int erpret this result as normal/abnormal . [facility] HospitalKgtynomDVHKAXYKSK3038-01-71 10:15:00 Test Item Value Reference Range Interpretation Comments WBC (test code = WBC) 2.2 3.7-10.4 [facility] HospitalXudgwndKVDYZRJSUV3528-27-34 10:15:00 Test Item Value Reference Range Interpretation Comments RBC (test code = RBC) 3.60 4.70-6.10 [facility] HospitalCphrutyBECBGPVLVF0070-29-89 10:15:00 Test Item Value Reference Range Interpretation Comments Hgb (test code = Hgb) 10.8 14.0-18.0 [facility] HospitalPfznjfzYBRINEXHZB6772-10-46 10:15:00 Test Item Value Reference Range Interpretation Comments Hct (test code = Hct) 33.4 42.0-54.0 [facility] HospitalGxlgchxXWUDZOBSXG2411-30-04 10:15:00 Test Item Value Reference Range Interpretation Comments MCV (test code = MCV) 92.9 80.0-94.0 [facility] HospitalXphdzcwDSNEUAOCMN9688-82-31 10:15:00 Test Item Value Reference Range Interpretation Comments MCH (test code = MCH) 30.1 pg 27.0-31.0 [facility] HospitalNozyizpPTTKHQOJQZ0993-39-13 10:15:00 Test Item Value Reference Range Interpretation Comments MCHC (test code = MCHC) 32.4 32.0-36.0 [facility] HospitalHpqtunlDXVPPJMFYU6793-74-39 10:15:00 Test Item Value Reference Range Interpretation Comments RDW (test code = RDW) 17.0 11.5-14.5 [facility] HospitalXyxrdmbFRXRLMODAE1968-96-00 10:15:00 Test Item Value Reference Range Interpretation Comments Platelet (test code = Platelet) 108 133-450 [facility] HospitalCsjkrvtPDYYZCWCZP5272-58-77 10:15:00 Test Item Value Reference Range Interpretation Comments MPV (test code = MPV) 8.0 7.4-10.4 [facility]2019-11-17 10:43:00 Test Item Value Reference Range Interpretation Comments Glucose Lvl (test code = Glucose Lvl) 141 70-99 [facility]2019-11-17 10:43:00 Test Item Value Reference Range Interpretation Comments BUN (test code = BUN) 7 7-22 [facility]2019-11-17 10:43:00 Test Item Value Reference Range Interpretation Comments Creatinine Lvl (test code = Creatinine 0.69 0.50-1.40 Lvl) [facility]2019-11-17 10:43:00 Test Item Value Reference Range Interpretation Comments Sodium Lvl (test code = Sodium Lvl) 134 135-145 [facility]2019-11-17 10:43:00 Test Item Value Reference Range Interpretation Comments Potassium Lvl (test code = Potassium 4.3 3.5-5.1 Lvl) [facility]2019-11-17 10:43:00 Test Item Value Reference Range Interpretation Comments Chloride Lvl (test code = Chloride Lvl) 101 95-109 [facility]2019-11-17 10:43:00 Test Item Value Reference Range Interpretation Comments CO2 (test code = CO2) 26 24-32 [facility]2019-11-17 10:43:00 Test Item Value Reference Range Interpretation Comments Calcium Lvl (test code = Calcium Lvl) 8.5 8.5-10.5 [facility]2019-11-17 10:43:00 Test Item Value Reference Range Interpretation Comments eGFR (test code = eGFR) 87 [facility]2019-11-17 10:43:00 Test Item Value Reference Range Interpretation Comments AGAP (test code = AGAP) 11.3 10.0-20.0 [facility]2019-11-17 10:43:00 Test Item Value Reference Range Interpretation Comments Magnesium Lvl (test code = Magnesium 1.9 1.8-2.4 Lvl) [facility]2019-11-17 10:43:00 Test Item Value Reference Range Interpretation Comments Phosphorus (test code = Phosphorus) 2.8 2.5-4.5 [facility] HospitalBcdditfZNYEJOTLRT6901-46-69 10:43:00 Test Item Value Reference Range Interpretation Comments WBC (test code = WBC) 3.7 3.7-10.4 [facility] HospitalVzbdccjGRLNZUDSAR2703-58-92 10:43:00 Test Item Value Reference Range Interpretation Comments RBC (test code = RBC) 3.68 4.70-6.10 [facility] HospitalXlpdbvrBLCRXUXOTJ6874-55-19 10:43:00 Test Item Value Reference Range Interpretation Comments Hgb (test code = Hgb) 11.0 14.0-18.0 [facility] HospitalDonlauvEPTYSMGPLL1622-97-70 10:43:00 Test Item Value Reference Range Interpretation Comments Hct (test code = Hct) 33.9 42.0-54.0 [facility] HospitalOwwztclPTYYVYVECE1306-56-58 10:43:00 Test Item Value Reference Range Interpretation Comments MCV (test code = MCV) 92.1 80.0-94.0 [facility] HospitalFvpdjhyHRUURPJJVW1916-65-40 10:43:00 Test Item Value Reference Range Interpretation Comments MCH (test code = MCH) 30.0 pg 27.0-31.0 [facility] HospitalHqwjlapAPLCQIPSJQ0745-16-19 10:43:00 Test Item Value Reference Range Interpretation Comments MCHC (test code = MCHC) 32.6 32.0-36.0 [facility] HospitalQnybebjZBQKCYUSGJ9905-34-08 10:43:00 Test Item Value Reference Range Interpretation Comments RDW (test code = RDW) 16.7 11.5-14.5 [facility] HospitalWnvkcskOCKGMAZTNE2139-77-63 10:43:00 Test Item Value Reference Range Interpretation Comments Platelet (test code = Platelet) 131 133-450 [facility] HospitalCzfeizoOCBPHYKHOD5229-03-67 10:43:00 Test Item Value Reference Range Interpretation Comments MPV (test code = MPV) 8.2 7.4-10.4 [facility] HospitalHpylxlvCSXNZDQCSK9499-95-72 10:43:00 Test Item Value Reference Range Interpretation Comments Segs (test code = Segs) 76.8 45.0-75.0 [facility] HospitalFbobrpkFIZZDGNZIG8613-16-52 10:43:00 Test Item Value Reference Range Interpretation Comments Lymphocytes (test code = Lymphocytes) 9.9 20.0-40.0 [facility] HospitalJvtmeffJEAAPNURYS9949-81-98 10:43:00 Test Item Value Reference Range Interpretation Comments Monocytes (test code = Monocytes) 11.8 2.0-12.0 [facility] HospitalOccirouVNIDXWVFOM3497-59-26 10:43:00 Test Item Value Reference Range Interpretation Comments Eosinophils (test code = 1.2 See_Comment [A utomated message] The Eosinophils) system which ge nerated this result tra nsmitted reference range : <=4.0. The reference r sheryl was not used to int erpret this result as normal/abnormal . [facility] HospitalBrfurtjJFZYXYMFBE8746-09-87 10:43:00 Test Item Value Reference Range Interpretation Comments Basophils (test code = 0.3 See_Comment [Aut omated message] The Basophils) system which ge nerated this result tra nsmitted reference range : <=1.0. The reference r sheryl was not used to int erpret this result as normal/abnormal . [facility]MmpumrfKDKMKFATAC1981-14-11 10:43:00 Test Item Value Reference Range Interpretation Comments Neutrophils # (test code = Neutrophils 2.8 1.5-8.1 #) [facility] HospitalPbeobvuPGYTZNKRLM6105-09-58 10:43:00 Test Item Value Reference Range Interpretation Comments Lymphocytes # (test code = Lymphocytes 0.4 1.0-5.5 #) [facility] HospitalPbhbrrrJCCNXMBERA4368-21-13 10:43:00 Test Item Value Reference Range Interpretation Comments Monocytes # (test code 0.4 See_Comment [Aut omated message] The = Monocytes #) system which generated this result tra nsmitted reference range : <=0.8. The reference r sheryl was not used to int erpret this result as normal/abnormal . [facility] [id number] 09:33:00 Test Item Value Reference Range Interpretation Comments Source Strep (test code Urine *NA*(01/10/19 = Source Strep) 3:33 AM) [facility]BA[facility] - [id number] 09:33:00 Test Item Value Reference Range Interpretation Comments Strep pneumoniae Ag Negative (01/10/19 (test code = Strep 3:33 AM) pneumoniae Ag) [facility] AND [id number] 09:33:00 Test Item Value Reference Range Interpretation Comments UA Color (test code = Yellow *NA*(01/10/19 UA Color) 3:33 AM) [facility] [id number] 09:33:00 Test Item Value Reference Range Interpretation Comments UA Turbidity (test code = Clear (01/10/19 3:33 UA Turbidity) AM) [facility] [id number] 09:33:00 Test Item Value Reference Range Interpretation Comments UA Spec Grav (test code = UA Spec 1.014 1 Grav) [facility] [id number] 09:33:00 Test Item Value Reference Range Interpretation Comments UA pH (test code = UA pH) 5.0 1 5.0-8.0 [facility] [id number] 09:33:00 Test Item Value Reference Range Interpretation Comments UA Protein (test code Negative (01/10/19 3:33 = UA Protein) AM) [facility] AND [id number] 09:33:00 Test Item Value Reference Range Interpretation Comments UA Glucose (test code Negative *NA*(01/10/19 = UA Glucose) 3:33 AM) [facility] AND [id number] 09:33:00 Test Item Value Reference Range Interpretation Comments UA Ketones (test code = Trace *ABN*(01/10/19 UA Ketones) 3:33 AM) [facility] AND [id number] 09:33:00 Test Item Value Reference Range Interpretation Comments UA Bili (test code = Negative *NA*(01/10/19 UA Bili) 3:33 AM) [facility] AND [id number] 09:33:00 Test Item Value Reference Range Interpretation Comments UA Blood (test code = Negative (01/10/19 3:33 UA Blood) AM) [facility] AND [id number] 09:33:00 Test Item Value Reference Range Interpretation Comments UA Urobilinogen (test code = UA <=1.0 mg/dL 0.1-1.0 Urobilinogen) [facility] AND [id number] 09:33:00 Test Item Value Reference Range Interpretation Comments UA Nitrite (test code Negative (01/10/19 3:33 = UA Nitrite) AM) [facility] AND [id number] 09:33:00 Test Item Value Reference Range Interpretation Comments UA Leuk Est (test Negative (01/10/19 3:33 code = UA Leuk Est) AM) [facility] AND [id number] 09:33:00 Test Item Value Reference Range Interpretation Comments UA Sq Epi (test code = None Seen (01/10/19 UA Sq Epi) 3:33 AM) [facility] AND [id number] 09:33:00 Test Item Value Reference Range Interpretation Comments UA WBC (test code = no gt See_Comment [Automa valentina message] The UA WBC) system which ge nerated this result transmit valentina reference range : <=5. The reference range was not used to interpr et this result as abbey l/abnormal. [facility] [id number] 09:33:00 Test Item Value Reference Range Interpretation Comments UA RBC (test code = no gt See_Comment [Automa valentina message] The UA RBC) system which ge nerated this result transmit valentina reference range : <=2. The reference range was not used to interpr et this result as abbey l/abnormal. [facility] [id number] 09:33:00 Test Item Value Reference Range Interpretation Comments UA Mucus (test code = UA Mucus) Few /LPF [facility] - [id number] 07:15:00 Test Item Value Reference Range Interpretation Comments Influ A (test code = Negative (01/10/19 1:15 Influ A) AM) [facility] - [id number] 07:15:00 Test Item Value Reference Range Interpretation Comments Influ B (test code = Negative (01/10/19 1:15 Influ B) AM) [facility] SantiagoannCARDIAC [id number] 05:21:00 Test Item Value Reference Range Interpretation Comments Troponin-I (test code 0.09 See_Comment [Auto mated message] The = Troponin-I) system which g enerated this result transmit valentina reference range : <=0.40. The reference r sheryl was not used to interpr et this result as abbey l/abnormal. [facility] [employer] [id number] 05:21:00 Test Item Value Reference Range Interpretation Comments Procalcitonin Lvl <0.05 ng/mL See_Comment [Automate d message] (test code = The system whic h Procalcitonin Lvl) generated this result transmit valentina reference range : <=0.10. The reference range was not used to interpret this result as normal/abnormal . [facility] [id number] 05:21:00 Test Item Value Reference Range Interpretation Comments Total Protein (test code = Total 7.1 6.4-8.4 Protein) [facility] [id number] 05:21:00 Test Item Value Reference Range Interpretation Comments Albumin Lvl (test code = Albumin Lvl) 3.1 3.5-5.0 [facility] [employer] [id number] 05:21:00 Test Item Value Reference Range Interpretation Comments ALT (test code = ALT) 27 See_Comment [Auto mated message] The system which ge nerated this result transmit valentina reference range : <=65. The reference range was not used to interpr et this result as abbey l/abnormal. [facility]2019-11-15 05:21:00 Test Item Value Reference Range Interpretation Comments AST (test code = AST) 27 See_Comment [Auto mated message] The system which ge nerated this result transmit valentina reference range : <=37. The reference range was not used to interpr et this result as abbey l/abnormal. [facility]2019-11-15 05:21:00 Test Item Value Reference Range Interpretation Comments Alk Phos (test code = Alk Phos) 136 39-136 [facility]2019-11-15 05:21:00 Test Item Value Reference Range Interpretation Comments Bili Total (test code = Bili Total) 0.5 0.2-1.3 [facility]2019-11-15 05:21:00 Test Item Value Reference Range Interpretation Comments B/C Ratio (test code = B/C Ratio) 17 1 6-25 [facility]2019-11-15 05:21:00 Test Item Value Reference Range Interpretation Comments Globulin (test code = Globulin) 4.0 2.7-4.2 [facility]2019-11-15 05:21:00 Test Item Value Reference Range Interpretation Comments A/G Ratio (test code = A/G Ratio) 0.8 1 0.7-1.6 [facility]2019-11-15 05:21:00 Test Item Value Reference Range Interpretation Comments Lactic Acid Lvl (test code = Lactic 0.9 0.5-2.2 Acid Lvl) [id number]00 Test Item Value Reference Range Interpretation Comments INR (test code = INR) 1.08 1 0.85-1.17 [id number] 05:21:00 Test Item Value Reference Range Interpretation Comments PT (test code = PT) 13.8 s 12.0-14.7 [id number] 05:21:00 Test Item Value Reference Range Interpretation Comments PTT (test code = PTT) 23.3 s 22.9-35.8 [id number] 05:21:00 Test Item Value Reference Range Interpretation Comments Eosinophils # (test code 0.2 See_Comment [A utomated message] The = Eosinophils #) system ic h generated this result tra nsmitted reference range : <=0.5. The reference r sheryl was not used to int erpret this result as normal/abnormal . [facility]
[2021-04-13] MEDS ORDERED: ONDANSETRON 4 MG/2 ML VIAL IV PRN (16:47)
[2021-04-13] MEDS ORDERED: ACETAMINOPHEN 650MG/RECT SUPP PR PRN (16:47)
[2021-04-13] MEDS ORDERED: BISACODYL 10 MG RECTAL SUPP PR PRN (16:48)
[2021-04-13] MEDS ORDERED: POLYVINYL ALCOHOL 1.4% 15 ML OPTH PRN (16:48)
[2021-04-13] MEDS: SCOPOLAMINE HYDROBROMIDE PATCH TD SCH (17:00)
[2021-04-13] MEDS: MORPHINE 2 MG/ML SYR IV PRN ×2 (17:20→21:28)
[2021-04-14] MEDS: MORPHINE 2 MG/ML SYR IV PRN ×2 (03:15→19:00)
[2021-04-14] MEDS: LORazepam 2 MG/ML VIAL IV PRN ×4 (09:36→22:04)
[2021-04-15] MEDS: MORPHINE 2 MG/ML SYR IV PRN ×4 (06:23→21:11)
[2021-04-15] MEDS: LORazepam 2 MG/ML VIAL IV PRN ×4 (08:49→23:13)
[2021-04-16] MEDS: MORPHINE 2 MG/ML SYR IV PRN ×6 (01:11→22:47)
[2021-04-16] MEDS: LORazepam 2 MG/ML VIAL IV PRN ×5 (03:17→20:46)
[2021-04-16] MEDS: SCOPOLAMINE HYDROBROMIDE PATCH TD SCH (08:45)
[2021-04-17] MEDS: LORazepam 2 MG/ML VIAL IV PRN ×4 (00:45→20:43)
[2021-04-17] MEDS: MORPHINE 2 MG/ML SYR IV PRN ×5 (02:44→22:55)
[2021-04-18] MEDS: LORazepam 2 MG/ML VIAL IV PRN ×4 (00:55→15:22)
[2021-04-18] MEDS: MORPHINE 2 MG/ML SYR IV PRN ×3 (04:47→13:16)
[2021-04-18 09:05] VITALS: BP 72/49; TEMP 98.4
[2021-04-18 09:06] VITALS: O2SAT 95
== END 2021-04-18 17:01 | disposition expired | DRG 951 ==
LOC: 4TH 15:43
PROVIDERS: ADMIT Internal Medicine Medical Oncology; ATTEND Internal Medicine Medical Oncology
DX: Z51.5 Encounter for palliative care (principal); C85.90 Non-Hodgkin lymphoma, unspecified, unspecified site
CPT/HCPCS: 82947; J2270